=== PATIENT | female | born 1975 | race Caucasian/White ===

== ENCOUNTER 2020-08-23 13:18 | Outpatient (RCR) | payer MEDICARE, MEDICAID, SELFPAY | END 2020-10-27 08:07 | disposition home or self-care (01) | LOC: HO.WCC 13:18 | PROVIDERS: PCP Family Medicine; Visit Provider Physician Assistant | DX: Z09 Encounter for follow-up examination after completed treatment for conditions other than malignant neoplasm (principal); E11.51 Type 2 diabetes mellitus with diabetic peripheral angiopathy without gangrene; R60.9 Edema, unspecified; M32.9 Systemic lupus erythematosus, unspecified; I25.10 Atherosclerotic heart disease of native coronary artery without angina pectoris; I25.2 Old myocardial infarction; I10 Essential (primary) hypertension; F17.210 Nicotine dependence, cigarettes, uncomplicated; M21.961 Unspecified acquired deformity of right lower leg; Z79.2 Long term (current) use of antibiotics | CPT/HCPCS: 11042; 87071; 87077; 87147; 87186; 87205; 99213 ==

== ENCOUNTER 2020-08-31 00:34 | Inpatient (IN) | payer MEDICARE, MEDICAID, SELFPAY ==
[2020-08-31 00:51] VITALS: BP 115/50; PULSE 83; RESP 16; TEMP 36.4; O2SAT 97; BMI 24.9
[2020-08-31 03:40] LABS: Hematocrit 30.4 % (37-47); Hemoglobin 8.8 g/dl (12.0-16.0); Mean Corpuscular HGB Conc 28.9 g/dl (31.0-35.0); Mean Corpuscular Hemoglobin 22.2 pg (27.0-33.0); Mean Corpuscular Volume 76.8 fL (80-98); Mean Platelet Volume 9.3 fL (9.4-12.3); Platelet Count 227 X10*3/uL (160-400); Red Blood Count 3.96 X10*6/uL (4.20-5.50); Red Cell Distribution Width 15.9 % (11.0-16.0)
--- NOTE | 2020-08-31 04:15 | ED_ITS ---
HPI - Wound/Laceration General Chief Complaint: Wound/Laceration Stated Complaint: Leg and feet pain/swelling Time Seen by Provider: 08/31/20 04:04 Source: patient Mode of arrival: ambulatory History of Present Illness HPI narrative: Patient comes to emergency room complaining of worsening cellulitis in her left lower extremity. Patient states in June she had an episode of cellulitis, she was discharged from the hospital, then subsequently she had development of ulcers in her leg. Patient has been followed up by the wound clinic. She has completed 3 courses of oral antibiotics, the last dose was approximately 3-4 days ago. Patient was seen on August 23 at the wound clinic, patient states that she has not changed her dressings since then. Patient states that the redness and pain keeps getting worse. Related Data Home Medications Medication Instructions Recorded Confirmed bupropion HCl 100 mg tablet 100 mg PO BID 08/15/20 08/20/20 oyxwcyh-klindosscx-SYO-caffeine 30 1 cap PO Q6H PRN 08/15/20 08/20/20 mg-50 mg-325 mg-40 mg capsule fluticasone propionate 110 1 puff INHALATION BID 08/15/20 08/20/20 mcg/actuation HFA aerosol inhaler hydroxychloroquine 200 mg tablet 200 mg PO DAILY 08/15/20 08/20/20 loratadine 10 mg tablet 10 mg PO DAILY 08/15/20 08/20/20 lorazepam 1 mg tablet 1 mg PO DAILY PRN 08/15/20 08/20/20 methotrexate 2.5 mg/mL oral PO 08/15/20 08/20/20 solution oxycodone 5 mg capsule 5 mg PO BID PRN 08/15/20 08/20/20 pravastatin 40 mg tablet 40 mg PO BEDTIME 08/15/20 08/20/20 prednisone 20 mg tablet 20 mg PO DAILY 08/15/20 08/20/20 warfarin 1 mg tablet 1 mg PO Q OTHER DAY 08/15/20 08/20/20 fluoxetine 40 mg capsule 40 mg PO DAILY 08/20/20 08/20/20 levothyroxine 150 mcg tablet 150 mcg PO DAILY 08/20/20 08/20/20 Allergies Allergy/AdvReac Type Severity Reaction Status Date / Time clarithromycin Allergy Intermediate FACIAL Verified 08/15/20 16:58 [CLARITHROMYCIN] SWELLING/REDNESS, facial rash, facial rash, facial rash, facial rash Review of Systems Review of Systems: Constitutional : No Weight loss, No Fever, No Chills, No Night Sweats, No Fatigue, No Malaise ENT/Mouth : No Hearing loss, No Ear Pain, No Nasal Congestion, No Sinus Pain, No Hoarseness, No sore throat, No Rhinorrhea, No Swallowing Difficulty Eyes: No Eye Pain, No Swelling, No Redness, No Foreign Body, No Discharge, No Vision Changes Cardiovascular : No Chest Pain, No SOB, No Dyspnea on Exertion, No Orthopnea, No Edema, No Palpitations Respiratory : No Cough, No Sputum, No Wheezing, No Smoke Exposure, No Dyspnea Gastrointestinal : No Nausea, No Vomiting, No Diarrhea, No Constipation, No abdominal Pain, No Hematochezia, No Melena Genitourinary : no irregular bleeding, No Dysuria, No Urinary Frequency, No Hematuria, No Urinary Incontinence, No Urgency, No Flank Pain, No Urinary Flow Changes, No Hesitancy Musculoskeletal : No joint pain, No Myalgias, No Joint Swelling Skin : cellulitis, skin ulcers in lower extremity Neuro : No Weakness, No Numbness, No Paresthesias, No Loss of Consciousness, No Dizziness, No Headache Psych : No Anxiety/Panic, No Depression, No SI/HI/AH/VH, No Social Issues, Heme/Lymph: No Bruising, No Bleeding,No Lymphadenopathy Endocrine : No Polyuria, No Polydipsia, No Temperature Intolerance [facility] Past Medical History Medical History Arthritis CVA (cerebral vascular accident) Fibromyalgia Hypothyroid Lupus Proteinuria Surgical History History of bunionectomy History of cholecystectomy History of excision of mass History of partial hysterectomy Family History Family History (Updated 08/15/20 @ 17:08 by Ophelia Conklin CMA) Father No problems noted. Mother Lung cancer Social History Social History Advance Directives: No Advance Directives Information Provided: No Physical Exam Vital Signs: Vital Signs: Vital Signs Temp Pulse Resp BP Pulse Ox 08/31/20 06:52 76 16 103/50 L 94 08/31/20 00:51 97.5 F 83 16 115/50 L 97 Body Mass Index 24.9 Appearance: Alert. Oriented X3. No acute distress. Eyes: Pupils equal, round and reactive to light. ENT: Pharynx normal. Neck: Normal inspection. Neck supple. No lymph nodes noted. No crepitus CVS: Normal heart rate and rhythm. Pulses normal. Normal S1 and S2 Respiratory: No respiratory distress. Breath sounds normal. No Wheezing. No rales Abdomen: Soft and nontender. No rigidity. No distention. good BS x4 Skin: erythematous, Warm to touch, tender leg with multiple ulcers in the tibia and lateral aspects. Extremities: No lower extremity edema. No lower extremity edema. No Lacerations. No Rash Neuro: Oriented X 3. No motor deficit. No sensory deficit. Moving all extermities. No slurred speech. MDM - Wound/Laceration MDM Narrative Medical decision making narrative: patient failed outpatient treatment after 3 rounds of antibiotic. Although her labs stable, patient's leg keeps worsening. I discussed the above-mentioned with the hospitalist, patient being admitted. Medical Records Attestation: I reviewed the patient's medical records. Lab Data Attestation: I reviewed the patient's lab results. Result diagrams: 08/31/20 03:33 08/31/20 03:34 Labs: Lab Results 08/31/20 08/31/20 08/31/20 Range/Units 03:33 03:34 04:51 WBC 6.0 (4.8-10.8) X10*3/uL RBC 3.96 L (4.20-5.50) X10*6/uL Hgb 8.8 L (12.0-16.0) g/dl Hct 30.4 L (37-47) % MCV 76.8 L (80-98) fL MCH 22.2 L (27.0-33.0) pg MCHC 28.9 L (31.0-35.0) g/dl RDW 15.9 (11.0-16.0) % Plt Count 227 (160-400) X10*3/uL MPV 9.3 L (9.4-12.3) fL Immature Gran % (Auto) Cancelled Neut % (Auto) Cancelled Lymph % (Auto) Cancelled [place] % (Auto) Cancelled Eos % (Auto) Cancelled Baso % (Auto) Cancelled Lymph # (Auto) Cancelled [place] # (Auto) Cancelled Eos # (Auto) Cancelled Baso # (Auto) Cancelled Abs Immat Gran (auto) Cancelled Absolute Neuts (auto) Cancelled Absolute Nucleated RBC 0.000 (0.0-0.012) X10*3/uL Nucleated RBC % (auto) 0.0 (0.0-0.2) /100WBC Neutrophils % (Manual) 58 (45-73) % Band Neutrophils % 1 L (3-5) % Lymphocytes % (Manual) 33 (20-40) % Monocytes % (Manual) 4 (2-11) % Eosinophils % (Manual) 2 (0-4) % Basophils % (Manual) 2 H (0-1) % Abs Neuts (Manual) 3.5 (2.2-7.9) X10*3/uL Lymphocytes # (Manual) 2.0 (0.6-4.8) X10*3/uL Monocytes # (Manual) 0.2 (0.0-1.2) X10*3/uL Eosinophils # (Manual) 0.1 (0.0-0.8) X10*3/UL Basophils # (Manual) 0.1 (0.0-0.3) X10*3/uL Toxic Vacuolation PRESENT Dohle Bodies PRESENT Platelet Estimate NORMAL (NORMAL) Large Platelets PRESENT Plt Morphology Comment NORMAL RBC Morphology NOTED Microcytosis 1+ [place] Cells 1+ Sodium 138 (135-145) mmol/L Potassium 4.4 (3.3-5.1) mmol/l Chloride 100 (96-108) mmol/L Carbon Dioxide 32 H (22-29) mmol/L Anion Gap 10 L (12-20) BUN 12 (9-16) mg/dL Creatinine 0.92 (0.5-1.4) mg/dL Estim Creat Clear Calc 65.5 Estimated GFR > 60 Random Glucose 82 (60-115) mg/dL Lactic Acid 0.9 (0.5-2.0) mmol/L Calcium 8.6 (8.4-10.2) mg/dL Total Bilirubin 0.4 (0.0-1.0) mg/dL AST 18 (5-31) U/L ALT 10 (0-31) U/L Alkaline Phosphatase 160 H (39-117) U/L Total Protein 6.0 L (6.5-8.0) g/dL Albumin 3.0 L (3.5-5.0) g/dL Lipase 20 (8-78) U/L Urine Color Urine Appearance Urine pH (5.0-8.0) Ur Specific [place] (1.005-1.025) Urine Protein (NEG-TRACE) MG/DL Urine Glucose (UA) (NEG) MG/DL Urine Ketones (NEG) MG/DL Urine Blood (NEG) Urine Nitrite (NEG) Ur Leukocyte Esterase (NEG) Urine Test (NEGATIVE) 08/31/20 Range/Units 04:51 WBC (4.8-10.8) X10*3/uL RBC (4.20-5.50) X10*6/uL Hgb (12.0-16.0) g/dl Hct (37-47) % MCV (80-98) fL MCH (27.0-33.0) pg MCHC (31.0-35.0) g/dl RDW (11.0-16.0) % Plt Count (160-400) X10*3/uL MPV (9.4-12.3) fL Immature Gran % (Auto) Neut % (Auto) Lymph % (Auto) [place] % (Auto) Eos % (Auto) Baso % (Auto) Lymph # (Auto) [place] # (Auto) Eos # (Auto) Baso # (Auto) Abs Immat Gran (auto) Absolute Neuts (auto) Absolute Nucleated RBC (0.0-0.012) X10*3/uL Nucleated RBC % (auto) (0.0-0.2) /100WBC Neutrophils % (Manual) (45-73) % Band Neutrophils % (3-5) % Lymphocytes % (Manual) (20-40) % Monocytes % (Manual) (2-11) % Eosinophils % (Manual) (0-4) % Basophils % (Manual) (0-1) % Abs Neuts (Manual) (2.2-7.9) X10*3/uL Lymphocytes # (Manual) (0.6-4.8) X10*3/uL Monocytes # (Manual) (0.0-1.2) X10*3/uL Eosinophils # (Manual) (0.0-0.8) X10*3/UL Basophils # (Manual) (0.0-0.3) X10*3/uL Toxic Vacuolation Dohle Bodies Platelet Estimate (NORMAL) Large Platelets Plt Morphology Comment RBC Morphology Microcytosis [place] Cells Sodium (135-145) mmol/L Potassium (3.3-5.1) mmol/l Chloride (96-108) mmol/L Carbon Dioxide (22-29) mmol/L Anion Gap (12-20) BUN (9-16) mg/dL Creatinine (0.5-1.4) mg/dL Estim Creat Clear Calc Estimated GFR Random Glucose (60-115) mg/dL Lactic Acid (0.5-2.0) mmol/L Calcium (8.4-10.2) mg/dL Total Bilirubin (0.0-1.0) mg/dL AST (5-31) U/L ALT (0-31) U/L Alkaline Phosphatase (39-117) U/L Total Protein (6.5-8.0) g/dL Albumin (3.5-5.0) g/dL Lipase (8-78) U/L Urine Color STRAW Urine Appearance CLEAR Urine pH 6.0 (5.0-8.0) Ur Specific [place] <= 1.005 (1.005-1.025) Urine Protein NEG (NEG-TRACE) MG/DL Urine Glucose (UA) NEG (NEG) MG/DL Urine Ketones NEG (NEG) MG/DL Urine Blood NEG (NEG) Urine Nitrite NEG (NEG) Ur Leukocyte Esterase NEG (NEG) Urine Test NEGATIVE (NEGATIVE) Discharge Plan Discharge Clinical Impression: Cellulitis Patient Disposition: Admitted As Inpatient Prescriptions: No Action levothyroxine 150 mcg tablet 150 mcg PO DAILY RF: 0 fluoxetine [Prozac] 40 mg capsule 40 mg PO DAILY RF: 0 lorazepam 1 mg tablet 1 mg PO DAILY PRNRF: 0 [id number]-[id number]-TQM-caff [Butalbital Compound W/Codeine] [id number] mg capsule 1 cap PO Q6H PRNRF: 0 warfarin 1 mg tablet 1 mg PO Q OTHER DAY RF: 0 fluticasone propionate 110 mcg/actuation HFA aerosol inhaler 1 puff inhalation BID RF: 0 oxycodone 5 mg capsule 5 mg PO BID PRNRF: 0 pravastatin 40 mg tablet 40 mg PO BEDTIME RF: 0 prednisone 20 mg tablet 20 mg PO DAILY RF: 0 hydroxychloroquine 200 mg tablet 200 mg PO DAILY RF: 0 methotrexate 2.5 mg/mL solution PO RF: 0 bupropion HCl 100 mg tablet 100 mg PO BID RF: 0 loratadine [Allergy Relief (loratadine)] 10 mg tablet 10 mg PO DAILY RF: 0
[2020-08-31 04:27] LABS: Band Neutrophils Percent 1 % (3-5); Basophils Abs Manual 0.1 X10*3/uL (0.0-0.3); Basophils Percent Manual 2 % (0-1); Eosinophils Absolute Manual 0.1 X10*3/UL (0.0-0.8); Eosinophils Percent Manual 2 % (0-4); Lymphocytes Percent Manual 33 % (20-40); Monocytes Absolute Manual 0.2 X10*3/uL (0.0-1.2); Monocytes Percent Manual 4 % (2-11); Neutrophils Absolute Manual 3.5 X10*3/uL (2.2-7.9); Neutrophils Percent Manual 58 % (45-73)
[2020-08-31 04:28] LABS: Alanine Aminotransferase 10 U/L (0-31); Alkaline Phosphatase 160 U/L (39-117); Anion Gap 10 (12-20); Aspartate Amino Transferase 18 U/L (5-31); Bilirubin Total 0.4 mg/dL (0.0-1.0); Blood Urea Nitrogen 12 mg/dL (9-16); Carbon Dioxide 32 mmol/L (22-29); Chloride 100 mmol/L (96-108); Creatinine Clr Calc Pharmacy 65.5; Estimated Glomerular Filt Rate > 60; Glucose Random 82 mg/dL (60-115); Lipase 20 U/L (8-78); Potassium 4.4 mmol/l (3.3-5.1); Sodium 138 mmol/L (135-145)
[2020-08-31 04:31] LABS: Dohle Bodies PRESENT
[2020-08-31 04:33] LABS: Microcytosis 1+
[2020-08-31 04:34] LABS: Large Platelet PRESENT; Platelet Estimate NORMAL (NORMAL)
[2020-08-31 04:35] LABS: Burr Cells 1+; Platelet Morphology Comment NORMAL; Toxic Vacuolation PRESENT
[2020-08-31 05:02] LABS: Appearance Urine CLEAR; Color Urine STRAW; Glucose Urine UA NEG (NEG); Leukocyte Esterase Urine NEG (NEG); Nitrite Urine NEG (NEG); Specific Gravity - Urine <= 1.005 (1.005-1.025); Urine Blood NEG (NEG); Urine Ketones NEG (NEG); Urine Protein NEG (NEG-TRACE)
[2020-08-31 05:03] LABS: Calcium 8.6 mg/dL (8.4-10.2)
[2020-08-31 05:05] LABS: UPreg QC Valid YES; Urine Pregnancy NEGATIVE (NEGATIVE)
--- NOTE | 2020-08-31 05:06 | PC.NURSE ---
RIGHT LOWER LEG EDEMA AND REDNESS. ORA WRAP AND SATURATED 4X4'S REMOVED. 2 AREAS OF OPEN SKIN WITH DRAINAGE ON MEDIAL LOWER LEFT LEG. LACTIC AND CULTURES DRAWN.
[2020-08-31 05:13] LABS: RBC Morphology NOTED
[2020-08-31 05:15] LABS: Lactic Acid 0.9 mmol/L (0.5-2.0)
--- NOTE | 2020-08-31 06:34 | PC.NURSE ---
pt has been sleeping for the past few hours. left lower leg wrapped with krystin over telfa pads.
[2020-08-31 06:52] VITALS: BP 103/50; PULSE 76; RESP 16; O2SAT 94
[2020-08-31] MEDS: Piperacillin Sodium/Tazobactam 3.375 GM in 0.9 % Sodium Chloride 50 ML IV ×3 (08:15→19:37)
[2020-08-31 08:30] LABS: Iron 26 mcg/dL (30-160); Percent Iron Saturation 14 % (15-50); Total Iron Binding Capacity 180 mcg/dL (228-428); Unsaturated Iron Binding 154 ug/dL
[2020-08-31 08:50] LABS: Ferritin 170 ng/mL (10-250)
[2020-08-31] MEDS: vancomycin HCL 750 MG in 0.9 % Sodium Chloride 250 ML 265 MG IV ×2 (09:05→22:31)
--- NOTE | 2020-08-31 09:06 | P.HPIM_ITS ---
History of Present Illness Date of Service: 08/31/20 Chief Complaint: left leg infection/ulcers Ms Rea is a 45 year-old woman with SLE, on chronic prednisone and hydroxychloroquine, who has had recurrent left leg cellulitis for the past 2 months. She has taken 3 separate courses of oral doxycycline without res olution; the last course was completed 4 days ago. She has been seen by the [facility] and was advised to present to the ED for IV antibiotics should the cellulitis recur or persist. She presents with worsening redness, swelling, and pain with multiple ulcers on the left tsai. She denies trauma to the limb. She denies fever or chills. No nausea or vomiting. No lightheadedness. Review of Systems Review of Systems: Yes all other systems are reviewed and are negative Constitutional: Constitutional: Denies chills and Denies fever(s) Cardiovascular: Cardiovascular: Denies chest pain and Denies dyspnea Respiratory: Respiratory: Denies cough and Denies dyspnea Gastrointestinal: Gastrointestinal: Denies abdominal pain, Denies nausea and Denies vomiting Musculoskeletal: Musculoskeletal: Reports arthralgias and Reports joint swelling Integumentary/Breasts: Skin/Breast: Reports swelling, Reports erythema, Reports skin swelling and Reports skin ulcer PMFSH Medical History Arthritis CVA (cerebral vascular accident) Fibromyalgia Hypothyroid Lupus Proteinuria Functional capacity: uses cane/walker Family History Father No problems noted. Mother Lung cancer Surgical History History of bunionectomy History of cholecystectomy History of excision of mass History of partial hysterectomy Social History Household Members: Children Housing: House Do you presently have visiting nurse or other home services: Yes ([facility]) Alcohol intake: never Smoking Status: Current every day smoker Tobacco Type: Cigarette Packs Per Day: 1 Cigarettes Per Day: 20.0 Years Smoked: 29 Smoked in Last 30 Days: Yes Patient Interested in Nicotine Replacement: Yes Patient Given Instructions on How to Stop Smoking: Yes Date Education Initiated: 08/31/20 Second Hand Smoke Exposure: No Use of substances other than those prescribed or required for medical reasons: No Currently Displaying Signs/Symptoms of Drug Intoxication Withdrawal: No Any prior treatment program specific to substance use: No Have you been hit, kicked, punched, or otherwise hurt by someone within the past year? If so, by whom?: No Do you feel safe in your current relationship?: No Current Relationship Is there a partner from a previous relationship who is making you feel unsafe now?: No Are you made to feel afraid or neglected: No Advance Directives: No Advance Directives Information Provided: No Advance Directives on File: No Do you have thoughts of harming others: None Do you have a plan to hurt others: No Plan Recently lost weight without trying: Yes Current occupational status: disabled Meds Allergies Allergy/AdvReac Type Severity Reaction Status Date / Time clarithromycin Allergy Intermediate FACIAL Verified 08/15/20 16:58 [CLARITHROMYCIN] SWELLING/REDNESS, facial rash, facial rash, facial rash, facial rash Home Medications Medication Instructions Recorded Confirmed Type fluticasone propionate 110 1 puff INHALATION BID 08/15/20 08/31/20 History mcg/actuation HFA aerosol inhaler hydroxychloroquine 200 mg tablet 200 mg PO BID 08/15/20 08/31/20 History lorazepam 1 mg tablet 1 mg PO BID PRN 08/15/20 08/31/20 History pravastatin 40 mg tablet 40 mg PO BEDTIME 08/15/20 08/31/20 History fluoxetine 40 mg capsule 40 mg PO DAILY 08/20/20 08/31/20 History levothyroxine 150 mcg tablet 150 mcg PO DAILY 08/20/20 08/31/20 History albuterol sulfate 2 puff INHALATION Q4H PRN 08/31/20 08/31/20 History albuterol sulfate 2.5 mg INHALATION Q6H PRN 08/31/20 08/31/20 History apixaban [Eliquis] 5 mg PO BID 08/31/20 08/31/20 History bupropion HCl 100 mg PO BID 08/31/20 08/31/20 History aufekpsowx-brmubvhnivthx-sthm 2 tab PO DAILY PRN 08/31/20 08/31/20 History ferrous sulfate 325 mg PO DAILY 08/31/20 08/31/20 History folic acid 1 mg PO DAILY 08/31/20 08/31/20 History nortriptyline 50 mg PO BEDTIME 08/31/20 08/31/20 History oxycodone 15 mg PO 5XD 08/31/20 08/31/20 History prednisone 5 mg PO DAILY 08/31/20 08/31/20 History Physical Exam Vital Signs and Narrative: Vital Signs: Last Vital Signs Temp 97.5 F 08/31/20 00:51 Pulse 76 08/31/20 06:52 Resp 16 08/31/20 06:52 BP 103/50 L 08/31/20 06:52 Pulse Ox 94 08/31/20 06:52 Body Mass Index 24.9 Const: General: No acute distress Orientation/consciousness: patient oriented x3 Eyes: Sclerae: sclerae normal Neck: Yes normal visual inspection and Yes supple Chest: Chest palpation & inspection: normal inspection of the chest Resp: Effort & Inspection: normal respiratory effort, able to speak in complete sentences and symmetric chest movement Auscultation: clear to auscultation bilaterally Cardio: Rate: regular rate Rhythm: regular rhythm Heart sounds: no murmurs GI: Inspection: Yes normal to inspection Palpation (GI): Soft to palpation and nontender Skin: Other: erythema and swelling of the lower left extremity from the tibial plateau to above the ankle. there are two non-bleeding ulcers without purulence Neuro: General: patient oriented x3 Results Labs Labs: Laboratory Tests 08/31/20 08/31/20 08/31/20 03:33 03:34 03:34 WBC 6.0 RBC 3.96 L Hgb 8.8 L Hct 30.4 L MCV 76.8 L MCH 22.2 L MCHC 28.9 L RDW 15.9 Plt Count 227 MPV 9.3 L Immature Gran % (Auto) Cancelled Neut % (Auto) Cancelled Lymph % (Auto) Cancelled [place] % (Auto) Cancelled Eos % (Auto) Cancelled Baso % (Auto) Cancelled Lymph # (Auto) Cancelled [place] # (Auto) Cancelled Eos # (Auto) Cancelled Baso # (Auto) Cancelled Abs Immat Gran (auto) Cancelled Absolute Neuts (auto) Cancelled Absolute Nucleated RBC 0.000 Nucleated RBC % (auto) 0.0 Neutrophils % (Manual) 58 Band Neutrophils % 1 L Lymphocytes % (Manual) 33 Monocytes % (Manual) 4 Eosinophils % (Manual) 2 Basophils % (Manual) 2 H Abs Neuts (Manual) 3.5 Lymphocytes # (Manual) 2.0 Monocytes # (Manual) 0.2 Eosinophils # (Manual) 0.1 Basophils # (Manual) 0.1 Toxic Vacuolation PRESENT Dohle Bodies PRESENT Platelet Estimate NORMAL Large Platelets PRESENT Plt Morphology Comment NORMAL RBC Morphology NOTED Microcytosis 1+ [place] Cells 1+ Sodium 138 Potassium 4.4 Chloride 100 Carbon Dioxide 32 H Anion Gap 10 L BUN 12 Creatinine 0.92 Estim Creat Clear Calc 65.5 Estimated GFR > 60 Random Glucose 82 Lactic Acid Calcium 8.6 Iron 26 L TIBC 180 L % Saturation 14 L Unsat Iron Binding 154 Ferritin 170 Total Bilirubin 0.4 AST 18 ALT 10 Alkaline Phosphatase 160 H C-Reactive Protein 2.70 H Total Protein 6.0 L Albumin 3.0 L Lipase 20 Urine Color Urine Appearance Urine pH Ur Specific [place] Urine Protein Urine Glucose (UA) Urine Ketones Urine Blood Urine Nitrite Ur Leukocyte Esterase Urine Test 08/31/20 08/31/20 04:51 04:51 WBC RBC Hgb Hct MCV MCH MCHC RDW Plt Count MPV Immature Gran % (Auto) Neut % (Auto) Lymph % (Auto) [place] % (Auto) Eos % (Auto) Baso % (Auto) Lymph # (Auto) [place] # (Auto) Eos # (Auto) Baso # (Auto) Abs Immat Gran (auto) Absolute Neuts (auto) Absolute Nucleated RBC Nucleated RBC % (auto) Neutrophils % (Manual) Band Neutrophils % Lymphocytes % (Manual) Monocytes % (Manual) Eosinophils % (Manual) Basophils % (Manual) Abs Neuts (Manual) Lymphocytes # (Manual) Monocytes # (Manual) Eosinophils # (Manual) Basophils # (Manual) Toxic Vacuolation Dohle Bodies Platelet Estimate Large Platelets Plt Morphology Comment RBC Morphology Microcytosis [place] Cells Sodium Potassium Chloride Carbon Dioxide Anion Gap BUN Creatinine Estim Creat Clear Calc Estimated GFR Random Glucose Lactic Acid 0.9 Calcium Iron TIBC % Saturation Unsat Iron Binding Ferritin Total Bilirubin AST ALT Alkaline Phosphatase C-Reactive Protein Total Protein Albumin Lipase Urine Color STRAW Urine Appearance CLEAR Urine pH 6.0 Ur Specific [place] <= 1.005 Urine Protein NEG Urine Glucose (UA) NEG Urine Ketones NEG Urine Blood NEG Urine Nitrite NEG Ur Leukocyte Esterase NEG Urine Test NEGATIVE Assessment and Plan (1) Cellulitis: Qualifiers: Laterality: left Site of cellulitis: extremity Site of cellulitis of extremity: lower extremity Qualified Code(s): L03.116 - Cellulitis of left lower limb Status: Acute This is a 45 year-old woman with SLE on chronic prednisone and hydroxychloroquine who presents with recurrent, non-resolving, non-purulent cellulitis of the left tsai with non-healing ulcers. She has not healed with 3 separate courses of outpatient doxycycline. # non-resolving cellulitis # non-healing ulcers - not septic - at risk of MDR pathogens due to immunosuppression - admit to M/S - follow BCx, CRP - IV pip/matt + vancomycin - ID consultation - Wound Care consultation # SLE - continue prednisone + hydroxychloroquine # hx CVA ?APLAS - recently changed from warfarin to apixaban; continue # iron deficiency anemia, chronic - continue FeSO4 # hypothyroidism - continue LT4 # depression/anxiety - continue bupropion + fluoxetine + lorazepam # VTE ppx - apixaban as above # code - FULL
[2020-08-31 09:09] VITALS: BP 102/54; PULSE 61; O2SAT 93
--- NOTE | 2020-08-31 10:12 | PC.NURSE ---
PT CAOX3, NO SIGNIFICANT COMPLAINTS, ABX X 2 INFUSED. AWAITING ADMISSION ORDERS AND ROOM ASSIGNMENT
[2020-08-31 11:13] VITALS: BP 93/53; PULSE 76; RESP 16; TEMP 37; O2SAT 94
[2020-08-31] MEDS: predniSONE 5 MG TABLET PO (11:30)
[2020-08-31] MEDS: FLUoxetine HCl 20 MG CAPSULE 40 MG PO (11:30)
[2020-08-31] MEDS: oxyCODONE HCl Immed Release 15 MG TABLET PO ×4 (11:31→22:43)
[2020-08-31] MEDS: Apixaban 5 MG TABLET PO (11:31)
[2020-08-31] MEDS: Folic Acid 1 MG TABLET PO (11:31)
[2020-08-31] MEDS: Levothyroxine Sodium 150 MCG TABLET PO (11:31)
[2020-08-31] MEDS: Ferrous Sulfate 324 MG TABLET.DR PO (11:31)
[2020-08-31] MEDS: buPROPion HCL 100 MG TABLET PO ×2 (11:31→21:31)
[2020-08-31] MEDS: Hydroxychloroquine Sulfate 200 MG TABLET PO ×2 (11:32→21:31)
--- NOTE | 2020-08-31 14:20 | P.CONGS_ITS ---
History of Present Illness Consult details Consult date: 08/31/20 Requesting physician: Ashley Mark Narrative: This is a 45-year-old female with past history of systemic lupus erythematosus, anti phospholipid syndrome, and rheumatoid arthritis who reports that she developed ulceration of the left lower extremity 2 or 3 months ago. [facility] She says that she was advised to come to the emergency room for further evaluation because of concern regarding the appearance of the wounds. She reports ongoing pain associated w ith the wounds. She does not think that there has been a lot of progress toward healing. Skin biopsy for evaluation for possible vasculitis or fungal infection has been requested. Review of Systems Constitutional: Constitutional: Denies chills, Denies fever(s) and Reports weakness (Mild, left side) Cardiovascular: Cardiovascular: Denies chest pain and Denies dyspnea Respiratory: Respiratory: Denies cough and Denies dyspnea Neurologic: Reports weakness (Mild, left side) PMFSH Past Medical History Medical History (Updated 08/31/20 @ 14:34 by Mikayla Mccain MD) Arthritis CVA (cerebral vascular accident) Fibromyalgia Hypothyroid Lupus Proteinuria Functional capacity: uses cane/walker Family History Family History Father No problems noted. Mother Lung cancer Surgical History Surgical History (Updated 08/31/20 @ 14:40 by Mikayla Mccain MD) History of breast lump/mass excision History of bunionectomy History of cholecystectomy History of excision of mass History of partial hysterectomy Social History Social History Household Members: Children Housing: House Do you presently have visiting nurse or other home services: Yes ([employer]) Alcohol intake: never Smoking Status: Current every day smoker Tobacco Type: Cigarette Packs Per Day: 1 Cigarettes Per Day: 20.0 Years Smoked: 29 Smoked in Last 30 Days: Yes Patient Interested in Nicotine Replacement: Yes Patient Given Instructions on How to Stop Smoking: Yes Date Education Initiated: 08/31/20 Second Hand Smoke Exposure: No Use of substances other than those prescribed or required for medical reasons: No Currently Displaying Signs/Symptoms of Drug Intoxication Withdrawal: No Any prior treatment program specific to substance use: No Have you been hit, kicked, punched, or otherwise hurt by someone within the past year? If so, by whom?: No Do you feel safe in your current relationship?: No Current Relationship Is there a partner from a previous relationship who is making you feel unsafe now?: No Are you made to feel afraid or neglected: No Advance Directives: No Advance Directives Information Provided: No Advance Directives on File: No Do you have thoughts of harming others: None Do you have a plan to hurt others: No Plan Recently lost weight without trying: Yes Current occupational status: disabled Meds Allergies Allergy/AdvReac Type Severity Reaction Status Date / Time clarithromycin Allergy Intermediate FACIAL Verified 08/15/20 16:58 [CLARITHROMYCIN] SWELLING/REDNESS, facial rash, facial rash, facial rash, facial rash Home Medications Medication Instructions Recorded Confirmed Type fluticasone propionate 110 1 puff INHALATION BID 08/15/20 08/31/20 History mcg/actuation HFA aerosol inhaler hydroxychloroquine 200 mg tablet 200 mg PO BID 08/15/20 08/31/20 History lorazepam 1 mg tablet 1 mg PO BID PRN 08/15/20 08/31/20 History pravastatin 40 mg tablet 40 mg PO BEDTIME 08/15/20 08/31/20 History fluoxetine 40 mg capsule 40 mg PO DAILY 08/20/20 08/31/20 History levothyroxine 150 mcg tablet 150 mcg PO DAILY 08/20/20 08/31/20 History albuterol sulfate 2 puff INHALATION Q4H PRN 08/31/20 08/31/20 History albuterol sulfate 2.5 mg INHALATION Q6H PRN 08/31/20 08/31/20 History apixaban [Eliquis] 5 mg PO BID 08/31/20 08/31/20 History bupropion HCl 100 mg PO BID 08/31/20 08/31/20 History ilpvwxwsfw-ipdqdojjnkihj-cwbe 2 tab PO DAILY PRN 08/31/20 08/31/20 History ferrous sulfate 325 mg PO DAILY 08/31/20 08/31/20 History folic acid 1 mg PO DAILY 08/31/20 08/31/20 History nortriptyline 50 mg PO BEDTIME 08/31/20 08/31/20 History oxycodone 15 mg PO 5XD 08/31/20 08/31/20 History prednisone 5 mg PO DAILY 08/31/20 08/31/20 History Physical Exam Vital Signs: Vital Signs: Vital Signs Temp Pulse Resp BP Pulse Ox 08/31/20 11:13 98.6 F 76 16 93/53 L 94 08/31/20 09:09 61 102/54 L 93 08/31/20 06:52 76 16 103/50 L 94 08/31/20 00:51 97.5 F 83 16 115/50 L 97 Body Mass Index 24.9 Const: General: cooperative and no acute distress HENMT: Head: Yes normal to inspection Resp: Effort & Inspection: normal respiratory effort Auscultation: clear to auscultation bilaterally Cardio: Rate: regular rate Rhythm: regular rhythm Skin: Other: grayish cast, warm and dry Extrem: Other: punched-out appearing wounds left lower leg medial aspect, wound beds are boggy and covered with patchy fibrinous appearing exudate, no significant surrounding erythema. Dorsalis pedis pulse palpable Results Labs Result diagrams: 08/31/20 03:33 08/31/20 03:34 Labs: Abnormal lab results 08/31/20 08/31/20 08/31/20 Range/Units 03:33 03:34 03:34 RBC 3.96 L (4.20-5.50) X10*6/uL Hgb 8.8 L (12.0-16.0) g/dl Hct 30.4 L (37-47) % MCV 76.8 L (80-98) fL MCH 22.2 L (27.0-33.0) pg MCHC 28.9 L (31.0-35.0) g/dl MPV 9.3 L (9.4-12.3) fL Band Neutrophils % 1 L (3-5) % Basophils % (Manual) 2 H (0-1) % Carbon Dioxide 32 H (22-29) mmol/L Anion Gap 10 L (12-20) Iron 26 L (30-160) mcg/dL TIBC 180 L (228-428) mcg/dL % Saturation 14 L (15-50) % Alkaline Phosphatase 160 H (39-117) U/L C-Reactive Protein 2.70 H (< or = 0.50) mg/dL Total Protein 6.0 L (6.5-8.0) g/dL Albumin 3.0 L (3.5-5.0) g/dL Short CBC 08/31/20 Range/Units 03:33 WBC 6.0 (4.8-10.8) X10*3/uL Hgb 8.8 L (12.0-16.0) g/dl Hct 30.4 L (37-47) % Plt Count 227 (160-400) X10*3/uL BMP 08/31/20 03:34 Sodium 138 Potassium 4.4 Chloride 100 Carbon Dioxide 32 H BUN 12 Creatinine 0.92 Calcium 8.6 Liver Function 08/31/20 Range/Units 03:34 Total Bilirubin 0.4 (0.0-1.0) mg/dL AST 18 (5-31) U/L ALT 10 (0-31) U/L Alkaline Phosphatase 160 H (39-117) U/L Albumin 3.0 L (3.5-5.0) g/dL Urine 08/31/20 Range/Units 04:51 Urine Color STRAW Urine Appearance CLEAR Urine pH 6.0 (5.0-8.0) Ur Specific [place] <= 1.005 (1.005-1.025) Urine Protein NEG (NEG-TRACE) MG/DL Urine Glucose (UA) NEG (NEG) MG/DL Urine Test NEGATIVE (NEGATIVE) All other labs normal. Assessment and Plan (1) Ulcer of lower extremity: Problem details: she has open wounds of the medial aspect of the left lower leg, etiology unclear, with delayed healing. Skin biopsy has been requested for further evaluation. I discussed this with her and reviewed risks including but not limited to infection, bleeding, and delayed healing. She is on Eliquis. We can proceed without discontinuing the Eliquis if needed, but it would be preferable to hold it for a day and resume once the biopsy has been done. I discussed this with her and will review with Dr. Mark. Status: Acute Skin biopsy ulcer left lower extremity scheduled for tomorrow. Will hold Eliquis until the biopsy is done.
[2020-08-31] MEDS: Nicotine 14 MG PATCH.TD24 TRANSDERMA (15:09)
[2020-08-31 15:12] VITALS: BP 108/53; PULSE 75; RESP 18; TEMP 36.2; O2SAT 92
[2020-08-31] MEDS: 0.9 % Sodium Chloride Flush 3 ML SYRINGE IVFLUSH (15:42)
[2020-08-31] MEDS: Collagenase Clostridium Hist. 30 GM TUBE 1 APPL TOPICAL (19:38)
[2020-08-31] MEDS: Albuterol Sulfate (0.083%) 2.5 MG/3 ML VIAL.NEB INHALE (19:41)
--- NOTE | 2020-08-31 20:00 | PC.NURSE ---
Patient was deemed a high fall risk. Fall precautions in place. Walker provided for ambulation with standby assist. Patient refused telesitter and compression sequentials that were ordered. Patient states baseline pain is 6/10 due to chronic pain. Left lower leg cleansed with normal saline, santyl and non-adherent dressings applied as ordered.
--- NOTE | 2020-08-31 20:23 | P.CNID_ITS ---
History of Present Illness Data of Consult Service Date: 08/31/20 Requesting physician: Ashley Mark Primary Care Provider: Barbie Brown MD HPI Reason for consult: reddened left leg She presents with redness and discomfort and swelling left lower extremity for two months She has had no fever or chills She has no positive cultures She has been on three courses of po Doxycycline with no improvement She has no injury to legs Review of Systems Constitutional: Constitutional: Reports weakness (Mild, left side) Neurologic: Reports weakness (Mild, left side) [facility] Past Medical History Medical History Arthritis CVA (cerebral vascular accident) Fibromyalgia Hypothyroid Lupus Proteinuria Functional capacity: uses cane/walker Family History Family History Father No problems noted. Mother Lung cancer Surgical History Surgical History History of breast lump/mass excision History of bunionectomy History of cholecystectomy History of excision of mass History of partial hysterectomy Social History Social History Household Members: Children Housing: House Do you presently have visiting nurse or other home services: Yes ([employer]) Alcohol intake: never Smoking Status: Current every day smoker Tobacco Type: Cigarette Packs Per Day: 1 Cigarettes Per Day: 20.0 Years Smoked: 29 Smoked in Last 30 Days: Yes Patient Interested in Nicotine Replacement: Yes Patient Given Instructions on How to Stop Smoking: Yes Date Education Initiated: 08/31/20 Second Hand Smoke Exposure: No Use of substances other than those prescribed or required for medical reasons: No Currently Displaying Signs/Symptoms of Drug Intoxication Withdrawal: No Any prior treatment program specific to substance use: No Have you been hit, kicked, punched, or otherwise hurt by someone within the past year? If so, by whom?: No Do you feel safe in your current relationship?: No Current Relationship Is there a partner from a previous relationship who is making you feel unsafe now?: No Are you made to feel afraid or neglected: No Advance Directives: No Advance Directives Information Provided: No Advance Directives on File: No Do you have thoughts of harming others: None Do you have a plan to hurt others: No Plan Recently lost weight without trying: Yes Current occupational status: disabled Meds Allergies Allergy/AdvReac Type Severity Reaction Status Date / Time clarithromycin Allergy Intermediate FACIAL Verified 08/15/20 16:58 [CLARITHROMYCIN] SWELLING/REDNESS, facial rash, facial rash, facial rash, facial rash Home Medications Medication Instructions Recorded Confirmed Type fluticasone propionate 110 1 puff INHALATION BID 08/15/20 08/31/20 History mcg/actuation HFA aerosol inhaler hydroxychloroquine 200 mg tablet 200 mg PO BID 08/15/20 08/31/20 History lorazepam 1 mg tablet 1 mg PO BID PRN 08/15/20 08/31/20 History pravastatin 40 mg tablet 40 mg PO BEDTIME 08/15/20 08/31/20 History fluoxetine 40 mg capsule 40 mg PO DAILY 08/20/20 08/31/20 History levothyroxine 150 mcg tablet 150 mcg PO DAILY 08/20/20 08/31/20 History albuterol sulfate 2 puff INHALATION Q4H PRN 08/31/20 08/31/20 History albuterol sulfate 2.5 mg INHALATION Q6H PRN 08/31/20 08/31/20 History apixaban [Eliquis] 5 mg PO BID 08/31/20 08/31/20 History bupropion HCl 100 mg PO BID 08/31/20 08/31/20 History jyuvwdsvow-uuklqzyutsqsj-wwwv 2 tab PO DAILY PRN 08/31/20 08/31/20 History ferrous sulfate 325 mg PO DAILY 08/31/20 08/31/20 History folic acid 1 mg PO DAILY 08/31/20 08/31/20 History nortriptyline 50 mg PO BEDTIME 08/31/20 08/31/20 History oxycodone 15 mg PO 5XD 08/31/20 08/31/20 History prednisone 5 mg PO DAILY 08/31/20 08/31/20 History Physical Exam Vital Signs: Vital Signs: Vital Signs Temp Pulse Resp BP Pulse Ox 08/31/20 15:12 97.2 F 75 18 108/53 L 92 08/31/20 11:13 98.6 F 76 16 93/53 L 94 08/31/20 09:09 61 102/54 L 93 08/31/20 06:52 76 16 103/50 L 94 08/31/20 00:51 97.5 F 83 16 115/50 L 97 Body Mass Index 24.9 Const: General: cooperative Orientation/consciousness: oriented to person, oriented to place and oriented to time HENMT: Head: Yes normal to inspection Ears: hearing grossly normal bilaterally Resp: Effort & Inspection: normal respiratory effort Cardio: Rate: regular rate Rhythm: regular rhythm GI: Inspection: Yes normal to inspection Auscultation: normal bowel sounds Skin: Full body images: 1. 1 cm purulent skin lesion 2. 1 cm purulent skin lesion Neuro: General: oriented to person, oriented to place and oriented to time Assessment and Plan (1) Ulcer of lower extremity: Problem details: she has open wounds of the medial aspect of the left lower leg, etiology unclear, with delayed healing. Concern over lupus related ulcer,on steroids,Plaquenil leukocytoclastic vasculitis or fungus or AFB Status: Acute Appropriate skin biopsy per Surgery to check for AFB,fungus, lupus related Antibiotics next day or two ,Vancomycin and Zosyn until then (2) Cellulitis: Qualifiers: Laterality: left Site of cellulitis: extremity Site of cellulitis of extremity: lower extremity Qualified Code(s): L03.116 - Cellulitis of left lower limb Status: Acute Results Labs CBC & Chem 7: 08/31/20 03:33 08/31/20 03:34 Labs: Short CBC 08/31/20 Range/Units 03:33 WBC 6.0 (4.8-10.8) X10*3/uL Hgb 8.8 L (12.0-16.0) g/dl Hct 30.4 L (37-47) % Plt Count 227 (160-400) X10*3/uL BMP 08/31/20 03:34 Sodium 138 Potassium 4.4 Chloride 100 Carbon Dioxide 32 H BUN 12 Creatinine 0.92 Calcium 8.6 Liver Function 08/31/20 Range/Units 03:34 Total Bilirubin 0.4 (0.0-1.0) mg/dL AST 18 (5-31) U/L ALT 10 (0-31) U/L Alkaline Phosphatase 160 H (39-117) U/L Albumin 3.0 L (3.5-5.0) g/dL Urine 08/31/20 Range/Units 04:51 Urine Color STRAW Urine Appearance CLEAR Urine pH 6.0 (5.0-8.0) Ur Specific [place] <= 1.005 (1.005-1.025) Urine Protein NEG (NEG-TRACE) MG/DL Urine Glucose (UA) NEG (NEG) MG/DL
[2020-08-31] MEDS: Nortriptyline HCl 25 MG CAPSULE 50 MG PO (21:30)
[2020-08-31] MEDS: Fluticasone Propionate Nasal 16 GM SPRAY 1 SPRAY NOSTRIL-B (21:30)
[2020-08-31] MEDS: Pravastatin Sodium 40 MG TABLET PO (21:31)
[2020-08-31 23:50] VITALS: BP 109/55; PULSE 77; RESP 16; TEMP 37.2; O2SAT 92
[2020-09-01] MEDS: diphenhydrAMINE HCL 50 MG/ML VIAL 25 MG IVPUSH (00:07)
[2020-09-01] MEDS: 0.9 % Sodium Chloride Flush 3 ML SYRINGE IVFLUSH ×3 (00:10→22:55)
[2020-09-01] MEDS: Piperacillin Sodium/Tazobactam 3.375 GM in 0.9 % Sodium Chloride 50 ML IV ×4 (03:12→21:11)
[2020-09-01] MEDS: oxyCODONE HCl Immed Release 15 MG TABLET PO ×5 (05:41→20:59)
[2020-09-01] MEDS: Levothyroxine Sodium 150 MCG TABLET PO (05:41)
--- NOTE | 2020-09-01 07:29 | MHC.SHP ---
Pre-Procedural Eval Section A The patient is an INPATIENT: No Changes since office visit: Yes Patient answered all questions; No Cold of Flu in the past 2 weeks, No New Medical Problems and No Changes in Medication The History & Physical has been completed within 30 days and I have reviewed it.: Yes Section B Chief Complaint: CELLULITIS Allergies: Allergies Allergy/AdvReac Type Severity Reaction Status Date / Time clarithromycin Allergy Intermediate FACIAL Verified 08/15/20 16:58 [CLARITHROMYCIN] SWELLING/REDNESS, facial rash, facial rash, facial rash, facial rash Plan Diagnosis/Plan: Unchanged Patient has been examined and remains a candidate for the planned procedure
[2020-09-01 07:45] VITALS: BP 106/53; PULSE 73; RESP 18; TEMP 36.2; O2SAT 91
--- NOTE | 2020-09-01 09:00 | P.OP_ITS ---
Operative Note Operative Note Narrative: Preoperative diagnosis: Nonhealing ulcers left lower leg Postoperative diagnosis: same Procedure: Incisional biopsy of skin and ulcer bed Anesthesia: local 1% lidocaine with epinephrine 2 cc Estimated blood loss: 2 cc Immediate complications: none Indications: This is a 45-year-old female with a complicated past medical history including lupus, rheumatoid arthritis, and CVA, antiphospholipid syndrome, who has an approximately 3 month history of nonhealing ulcers of the left lower extremity. Etiology is unclear and biopsy for fungal culture and assessment for vasculitis has been requested. She is aware of the technique of the procedure and risks of infection, bleeding, and continued nonhealing. Procedure in detail: With there her sitting on the OR table, the superior most ulcer on the anterior medial aspect of the left lower leg just below the knee was prepped with Betadine solution and draped sterilely. Skin and subcutaneous tissues and ulcer bed along the superior rim of the ulcer were infiltrated with local anesthetic. Two small pieces of skin and immediate subcutaneous tissue as well as adjacent ulcer bed were excised. Each piece measured approximately 2 x 4 mm. One piece was sent for fungal culture of the other for histology. There was no significant bleeding. The ulcer beds were cleansed with saline solution. Silver alginate dressings were applied. She tolerated the procedure well and was returned to the medical- surgical floor in stable condition. There were no immediate complications.
--- NOTE | 2020-09-01 09:10 | MHC.SHP ---
Pre-Procedural Eval Section A The patient is an INPATIENT: Yes The History & Physical has been completed within 30 days and I have reviewed it.: Yes Section B Chief Complaint: CELLULITIS Allergies: Allergies Allergy/AdvReac Type Severity Reaction Status Date / Time clarithromycin Allergy Intermediate FACIAL Verified 08/15/20 16:58 [CLARITHROMYCIN] SWELLING/REDNESS, facial rash, facial rash, facial rash, facial rash Plan Diagnosis/Plan: Unchanged Patient has been examined and remains a candidate for the planned procedure
[2020-09-01 09:13] LABS: Erythrocyte Sedimentation Rate 81 MM/HR (0-20)
--- NOTE | 2020-09-01 09:17 | PM.CNGS ---
History of Present Illness Consult details Consult date: 08/31/20 Reason for consult: other (left leg wounds and cellulitis) Requesting physician: Ashley Mark Narrative: The pt is a 45 year old female with SLE who has been developing leg wounds - ulcerated with necrotic tissue and cellulitis. She is admitted now and is getting iv antibx and surgery has been consulted for wound care and to do a biopsy. pt says she has been seen once in wound care clinic before. Review of Systems Constitutional: Constitutional: Reports weakness (Mild, left side) Neurologic: Reports weakness (Mild, left side) [facility] Past Medical History Medical History Arthritis CVA (cerebral vascular accident) Fibromyalgia Hypothyroid Lupus Proteinuria Functional capacity: uses cane/walker Family History Family History Father No problems noted. Mother Lung cancer Surgical History Surgical History History of breast lump/mass excision History of bunionectomy History of cholecystectomy History of excision of mass History of partial hysterectomy Social History Social History Household Members: Children Housing: House Do you presently have visiting nurse or other home services: Yes ([employer]) Alcohol intake: never Smoking Status: Current every day smoker Tobacco Type: Cigarette Packs Per Day: 1 Cigarettes Per Day: 20.0 Years Smoked: 29 Smoked in Last 30 Days: Yes Patient Interested in Nicotine Replacement: Yes Patient Given Instructions on How to Stop Smoking: Yes Date Education Initiated: 08/31/20 Second Hand Smoke Exposure: No Use of substances other than those prescribed or required for medical reasons: No Currently Displaying Signs/Symptoms of Drug Intoxication Withdrawal: No Any prior treatment program specific to substance use: No Have you been hit, kicked, punched, or otherwise hurt by someone within the past year? If so, by whom?: No Do you feel safe in your current relationship?: No Current Relationship Is there a partner from a previous relationship who is making you feel unsafe now?: No Are you made to feel afraid or neglected: No Advance Directives: No Advance Directives Information Provided: No Advance Directives on File: No Do you have thoughts of harming others: None Do you have a plan to hurt others: No Plan Recently lost weight without trying: Yes Current occupational status: disabled Meds Allergies Allergy/AdvReac Type Severity Reaction Status Date / Time clarithromycin Allergy Intermediate FACIAL Verified 08/15/20 16:58 [CLARITHROMYCIN] SWELLING/REDNESS, facial rash, facial rash, facial rash, facial rash Home Medications Medication Instructions Recorded Confirmed Type fluticasone propionate 110 1 puff INHALATION BID 08/15/20 08/31/20 History mcg/actuation HFA aerosol inhaler hydroxychloroquine 200 mg tablet 200 mg PO BID 08/15/20 08/31/20 History lorazepam 1 mg tablet 1 mg PO BID PRN 08/15/20 08/31/20 History pravastatin 40 mg tablet 40 mg PO BEDTIME 08/15/20 08/31/20 History fluoxetine 40 mg capsule 40 mg PO DAILY 08/20/20 08/31/20 History levothyroxine 150 mcg tablet 150 mcg PO DAILY 08/20/20 08/31/20 History albuterol sulfate 2 puff INHALATION Q4H PRN 08/31/20 08/31/20 History albuterol sulfate 2.5 mg INHALATION Q6H PRN 08/31/20 08/31/20 History apixaban [Eliquis] 5 mg PO BID 08/31/20 08/31/20 History bupropion HCl 100 mg PO BID 08/31/20 08/31/20 History dtldnitjng-yspsorlmmttue-mlfr 2 tab PO DAILY PRN 08/31/20 08/31/20 History ferrous sulfate 325 mg PO DAILY 08/31/20 08/31/20 History folic acid 1 mg PO DAILY 08/31/20 08/31/20 History nortriptyline 50 mg PO BEDTIME 08/31/20 08/31/20 History oxycodone 15 mg PO 5XD 08/31/20 08/31/20 History prednisone 5 mg PO DAILY 08/31/20 08/31/20 History Physical Exam Vital Signs: Vital Signs: Vital Signs Temp Pulse Resp BP Pulse Ox 09/01/20 07:45 97.1 F 73 18 106/53 L 91 L 08/31/20 23:50 98.9 F 77 16 109/55 L 92 08/31/20 15:12 97.2 F 75 18 108/53 L 92 08/31/20 11:13 98.6 F 76 16 93/53 L 94 Body Mass Index 24.9 Skin: Other: the left leg has some open sores around the medial area - upper aspect of lower leg and the lower aspect - greyish necrotic and ulcerated wounds. there was apparent cellulitis area demarcated but not noticed now. Results Labs Result diagrams: 08/31/20 03:33 08/31/20 03:34 Labs: Abnormal lab results 09/01/20 Range/Units 06:21 ESR 81 H (0-20) MM/HR Urine 08/31/20 Range/Units 04:51 Urine Color STRAW Urine Appearance CLEAR Urine pH 6.0 (5.0-8.0) Ur Specific [place] <= 1.005 (1.005-1.025) Urine Protein NEG (NEG-TRACE) MG/DL Urine Glucose (UA) NEG (NEG) MG/DL Urine Test NEGATIVE (NEGATIVE) All other labs normal. Assessment and Plan (1) Ulcer of lower extremity: Problem details: leg ulcers, ? etiology related t SLE -- there is necrotic tissue which needs to be debrided. pt has a general surgery consult who is seeing her so recommend they debride the wound as needed can use santyl for topical debridement for now but really needs sharp debridement we can follow up with the wounds in the wound care clinic when the pt is discharged. Status: Acute (2) Cellulitis: Qualifiers: Laterality: left Site of cellulitis: extremity Site of cellulitis of extremity: lower extremity Qualified Code(s): L03.116 - Cellulitis of left lower limb Problem details: medical treatment with iv antibx. it looks improved Status: Acute
[2020-09-01] MEDS: Ferrous Sulfate 324 MG TABLET.DR PO (09:19)
[2020-09-01] MEDS: buPROPion HCL 100 MG TABLET PO ×2 (09:19→20:57)
[2020-09-01] MEDS: Hydroxychloroquine Sulfate 200 MG TABLET PO ×2 (09:19→20:57)
[2020-09-01] MEDS: FLUoxetine HCl 20 MG CAPSULE 40 MG PO (09:19)
[2020-09-01] MEDS: Folic Acid 1 MG TABLET PO (09:19)
[2020-09-01] MEDS: predniSONE 5 MG TABLET PO (09:19)
[2020-09-01] MEDS: Nicotine 14 MG PATCH.TD24 TRANSDERMA (09:20)
[2020-09-01] MEDS: Collagenase Clostridium Hist. 30 GM TUBE 1 APPL TOPICAL ×2 (09:26→14:26)
[2020-09-01] MEDS: Fluticasone Propionate Nasal 16 GM SPRAY 1 SPRAY NOSTRIL-B (09:26)
[2020-09-01] MEDS: vancomycin HCL 750 MG in 0.9 % Sodium Chloride 250 ML 265 MG IV ×2 (10:11→21:43)
--- NOTE | 2020-09-01 13:43 | PM.IMPN ---
Subjective Subjective Date of Service: 09/01/20 Interval History: Redness/swelling improved Underwent biopsy of ulcer today No fever/chills/nausea/vomiting Constitutional Constitutional: Denies fever(s) Cardiovascular Cardiovascular: Denies chest pain and Denies dyspnea Respiratory Respiratory: Denies cough and Denies dyspnea Gastrointestinal Gastrointestinal: Denies abdominal pain, Denies nausea and Denies vomiting Integumentary/Breasts Skin/Breast: Reports skin ulcer Physical Exam Vital Signs: Vital Signs: Vital Signs Temp Pulse Resp BP Pulse Ox 09/01/20 07:45 97.1 F 73 18 106/53 L 91 L 08/31/20 23:50 98.9 F 77 16 109/55 L 92 08/31/20 15:12 97.2 F 75 18 108/53 L 92 Body Mass Index 24.9 Const: General: no acute distress Resp: Effort & Inspection: normal respiratory effort and no respiratory distress Auscultation: clear to auscultation bilaterally and no wheezes Cardio: Rate: regular rate Rhythm: regular rhythm Heart sounds: no murmurs GI: Palpation (GI): Soft to palpation and nontender Skin: Other: erythema and induration of LLE resolved; multiple ulcers Extrem: General: Yes no clubbing, cyanosis or edema Objective Data Current Medications Generic Name Dose Route Start Last Admin Trade Name Freq PRN Reason Stop Dose Admin Acetaminophen 650 mg 08/31/20 08:56 Acetaminophen 325 Mg Tablet PO Q6H PRN Pain and Fever Acetaminophen/Butalbital/Caffeine 2 tab 08/31/20 09:44 Butalb/Acetamin/Caff 50/325/40 1 Tab Tablet PO DAILY PRN headache Albuterol Sulfate 2.5 mg 08/31/20 09:44 08/31/20 19:41 Albuterol Sulfate (0.083%) 2.5 Mg/3 Ml Vial.Neb INHALE 2.5 mg Q6H PRN Administration Shortness Of Breath Or Wheezing Albuterol Sulfate 2 puff 08/31/20 09:44 Albuterol Sulfate 90 Mcg 18 Gm Inhaler INHALE Q4H PRN Shortness Of Breath Or Wheezing Apixaban 5 mg 08/31/20 09:45 08/31/20 11:31 Apixaban 5 Mg Tablet PO 5 mg BID ANDRIA Administration Bupropion HCl 100 mg 08/31/20 10:00 09/01/20 09:19 Bupropion Hcl 100 Mg Tablet PO 100 mg BID ANDRIA Administration Collagenase 1 appl 08/31/20 17:15 09/01/20 09:26 Collagenase Clostridium Hist. 30 Gm Tube TOPICAL 1 dose DAILY ANDRIA Administration Protocol Docusate Sodium 100 mg 08/31/20 08:56 Docusate Sodium 100 Mg Capsule PO BID PRN Constipation Ferrous Sulfate 324 mg 08/31/20 10:00 09/01/20 09:19 Ferrous Sulfate 324 Mg Tablet.Dr PO 324 mg DAILY ANDRIA Administration Fluoxetine HCl 40 mg 08/31/20 10:00 09/01/20 09:19 Fluoxetine Hcl 20 Mg Capsule PO 40 mg DAILY ANDRIA Administration Fluticasone Propionate 1 spray 08/31/20 10:00 09/01/20 09:26 Fluticasone Propionate Nasal 16 Gm [place] NOSTRIL-B 1 spray BID ANDRIA Administration Folic Acid 1 mg 08/31/20 09:45 09/01/20 09:19 Folic Acid 1 Mg Tablet PO 1 mg DAILY ANDRIA Administration Hydroxychloroquine Sulfate 200 mg 08/31/20 09:45 09/01/20 09:19 Hydroxychloroquine Sulfate 200 Mg Tablet PO 200 mg BID ANDRIA Administration Piperacillin Sod/Tazobactam 50 mls @ 100 mls/hr 08/31/20 14:00 09/01/20 09:59 Sod 3.375 gm/ Sodium Chloride IV Infused Q6H ANDRIA Infusion Vancomycin HCl 750 mg/ Sodium 265 mls @ 265 mls/hr 08/31/20 21:00 09/01/20 11:34 Chloride IV Infused Q12H ANDRIA Infusion Levothyroxine Sodium 150 mcg 08/31/20 09:45 09/01/20 05:41 Levothyroxine Sodium 150 Mcg Tablet PO 150 mcg DAILY@0630 ANDRIA Administration Lorazepam 1 mg 08/31/20 09:44 Lorazepam 1 Mg Tablet PO BID PRN Anxiety Nicotine 14 mg 08/31/20 14:45 09/01/20 09:20 Nicotine 14 Mg Patch.Td24 TRANSDERMA 14 mg DAILY ANDRIA Administration Nortriptyline HCl 50 mg 08/31/20 21:00 08/31/20 21:30 Nortriptyline Hcl 25 Mg Capsule PO 50 mg BEDTIME ANDRIA Administration Oxycodone HCl 15 mg 08/31/20 10:00 09/01/20 10:10 Oxycodone Hcl Immed Release 15 Mg Tablet PO 15 mg 5XD ANDRIA Administration Pharmacy Consult 1 each 08/31/20 09:04 Consult Rx Vancomycin Dosing MISCELLANE DAILY PRN Consult order Pravastatin Sodium 40 mg 08/31/20 21:00 08/31/20 21:31 Pravastatin Sodium 40 Mg Tablet PO 40 mg BEDTIME ANDRIA Administration Prednisone 5 mg 08/31/20 09:45 09/01/20 09:19 Prednisone 5 Mg Tablet PO 5 mg DAILY ANDRIA Administration Sodium Chloride 3 ml 08/31/20 16:00 09/01/20 08:02 0.9 % Sodium Chloride Flush 3 Ml Syringe IVFLUSH Not Given QSHIFT [facility] Labs CBC & Chem 7: 08/31/20 03:33 08/31/20 03:34 Labs: Laboratory Results - last 24 hr 09/01/20 06:21 ESR 81 H Microbiology Microbiology Results: Microbiology 08/31/20 04:51 Blood - Venous Blood Culture - Preliminary No growth after 24 hours. 08/31/20 04:51 Blood - Venous Blood Culture - Preliminary No growth after 24 hours. Progress Note: A&P (1) Ulcer of lower extremity: Status: Acute (2) Cellulitis: Status: Acute Assessment and Plan: hospital d#2 45yo F with SLE on chronic prednisone + hydroxychloroquine admitted for nonresolving cellulitis of L tsai with non-healing ulcers, failed outpt ABX # cellulitis - continue vanco + pip/matt d#2, ID following # non-healing ulcers - ?vasculitis ?fungal ?mycobacterial - follow biopsy from today # SLE - continue chronic prednisone + hydroxychloroquine # hx CVA ?APLAS - recently changed from warfarin to apixaban; continue # iron deficiency anemia, chronic - continue FeSO4 # hypothyroidism - continue LT4 # depression/anxiety - continue bupropion + fluoxetine + lorazepam
[2020-09-01 16:00] VITALS: BP 113/54; PULSE 76; RESP 18; TEMP 37.1; O2SAT 95
[2020-09-01] MEDS: Nortriptyline HCl 25 MG CAPSULE 50 MG PO (20:56)
[2020-09-01] MEDS: Pravastatin Sodium 40 MG TABLET PO (20:57)
[2020-09-01] MEDS: Apixaban 5 MG TABLET PO (20:57)
[2020-09-01] MEDS: Acetaminophen 325 MG TABLET 650 MG PO (22:58)
[2020-09-02] VITALS: BP 104/44; PULSE 73; RESP 18; TEMP 36.4; O2SAT 90
[2020-09-02] MEDS: Piperacillin Sodium/Tazobactam 3.375 GM in 0.9 % Sodium Chloride 50 ML IV ×2 (03:06→08:10)
[2020-09-02] MEDS: Levothyroxine Sodium 150 MCG TABLET PO (05:56)
[2020-09-02] MEDS: oxyCODONE HCl Immed Release 15 MG TABLET PO ×2 (05:56→11:15)
[2020-09-02 07:05] LABS: C Reactive Protein 1.98 mg/dL (< or = 0.50)
[2020-09-02 07:06] VITALS: BP 100/44; PULSE 72; RESP 18; TEMP 36.8; O2SAT 94
[2020-09-02] MEDS: buPROPion HCL 100 MG TABLET PO (08:09)
[2020-09-02] MEDS: Nicotine 14 MG PATCH.TD24 TRANSDERMA (08:09)
[2020-09-02] MEDS: predniSONE 5 MG TABLET PO (08:09)
[2020-09-02] MEDS: FLUoxetine HCl 20 MG CAPSULE 40 MG PO (08:09)
[2020-09-02] MEDS: Apixaban 5 MG TABLET PO (08:09)
[2020-09-02] MEDS: Hydroxychloroquine Sulfate 200 MG TABLET PO ×2 (08:09→08:11)
[2020-09-02] MEDS: Folic Acid 1 MG TABLET PO (08:09)
[2020-09-02] MEDS: 0.9 % Sodium Chloride Flush 3 ML SYRINGE IVFLUSH (08:10)
[2020-09-02 09:09] VITALS: BP 100/44; PULSE 72; O2SAT 94
[2020-09-02] MEDS: vancomycin HCL 750 MG in 0.9 % Sodium Chloride 250 ML 265 MG IV (09:23)
[2020-09-02] MEDS: Fluticasone Propionate Nasal 16 GM SPRAY 1 SPRAY NOSTRIL-B (09:24)
[2020-09-02] MEDS: Ferrous Sulfate 324 MG TABLET.DR PO (10:17)
--- NOTE | 2020-09-02 13:51 | MHC.CM.PN ---
PER MULTIDISCIPLINARY [id number], PT LIKELY TO DC OVER THE WEEKEND AND WILL NEED VNA SERVICES. REFERRAL MADE TO [facility] PER PT PREFERENCE
--- NOTE | 2020-09-02 14:27 | W.MHC.F2F ---
Service Date Service Date: 09/02/20 Encounter Date of encounter: 09/02/20 Reasons for Services Reason for senior living: wound care Reason for physical therapy: home safety and mobility, gait/transfer training and assess need for DME overseeing care: Barbie Brown MD Homebound: Leaving the home is medically contraindicated at this time without the asist of a device and/or another person due th the listed conditions above and below. Reason homebound: immunosuppression / infection risk and weakness related to hospital stay Homebound supporting statement: Patient was admitted to [facility] 08/31-09/02/20 for nonresolving cellulitis with ulcers. Ulcer was biopsied and results pending. VNA for wound care, med management, pT Certification: Based on the above findings, I certify that this patient is confined to the home and needs intermittent senior living care, physical therapy and/or speech therapy, or continues to need occupational therapy. The patient is under my care, and I have initiated the establishment of the plan of care. The patient will be followed by a physician who will periodically review the plan of care.
--- NOTE | 2020-09-02 14:38 | MHC.CM.PN ---
DISCHARGE HOME TODAY WITH [facility]. PT WILL SELF ARRANGE TRANSPORTATION
--- NOTE | 2020-09-02 14:41 | PM.DS ---
DS: Providers Provider Date of admission: 08/31/20 08:56 Primary care physician: Babrie Brown MD Admitting clinician: Ashley Mark Attending physician on admission: Ashley Mark Consults: 08/31/20 08:56 Consult to Wound Care Provider Routine Consulting Provider: [facility] [place] Wound Care Management Reason for consultation: Nonhealing ulcers 08/31/20 09:01 Consult to Physician Routine Consulting Provider: Karen Tabor Reason for consultation: Cellulitis in immunosuppressed patient, failure of outpatient treatment 08/31/20 13:02 Consult to General Surgery Routine Consulting Provider: [facility] [place] General Surgeons Reason for consultation: Requesting excisional biopsy of edge of ulcer- ?vasculitis ?fungal Attending physician on discharge: Ashley Mark Discharging clinician: Ashley Mark DS: Diagnosis Discharge Diagnosis (1) Ulcer of lower extremity: Status: Acute (2) Cellulitis: Status: Acute DS: Summary Hospital Course Hospital Course: From my history and physical from admission, 08/31/20: Chief Complaint: left leg infection/ulcers Ms Rea is a 45 year-old woman with SLE, on chronic prednisone and hydroxychloroquine, who has had recurrent left leg cellulitis for the past 2 months. She has taken 3 separate courses of oral doxycycline without resolution; the last course was completed 4 days ago. She has been seen by the [facility] [place] [place] Wound Care Clinic and was advised to present to the ED for IV antibiotics should the cellulitis recur or persist. She presents with worsening redness, swelling, and pain with multiple ulcers on the left tsai. She denies trauma to the limb. She denies fever or chills. No nausea or vomiting. No lightheadedness. The patient was admitted to the medical-surgical floor. She was not septic. She was treated with broad-spectrum antibiotics due to her immunosuppression from SLE treatment. Infectious disease was consulted and recommended excisional biopsy from 1 of the nonhealing ulcers, which was done by General surgery. The concern is of vasculitis versus fungal versus atypical mycobacterial infection. no cellulitis resolved rapidly and she was discharged on oral antibiotics. 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 VNA services were arranged for wound care. Time Spent with Patient Time attestation: Total time spent providing and/or coordinating discharge services: 35 Physical Exam Vital Signs: Vital Signs: Vital Signs Temp Pulse Resp BP Pulse Ox 09/02/20 09:09 72 100/44 L 94 09/02/20 07:06 98.3 F 72 18 100/44 L 94 09/02/20 00:00 97.6 F 73 18 104/44 L 90 L 09/01/20 16:00 98.7 F 76 18 113/54 L 95 Body Mass Index 24.9 DS: Data Data Completed and Pending Pending studies at discharge: Pending at discharge 09/01/20 08:37 Surgical [PTH] Routine Labs on day of discharge: Labs from last 24 hours 09/02/20 09/01/20 06:13 19:56 C-Reactive Protein 1.98 H Vancomycin Trough 17.0 Preliminary micro results at discharge 08/31/20 04:51 Blood Culture - Preliminary Blood - Venous No growth after 48 hours. 08/31/20 04:51 Blood Culture - Preliminary Blood - Venous No growth after 48 hours. Discharge Plan Discharge Patient Disposition: Home Health Service Referrals: [facility] [Outside] Barbie Dunn MD [Primary Care Provider] - Discharge Medications: New doxycycline monohydrate 100 mg tablet 100 mg PO BID Qty: 10 RF: 0 amoxicillin-pot clavulanate 875-125 mg tablet 1 tab PO BID Qty: 10 RF: 0 Continued albuterol sulfate 2.5 mg /3 mL (0.083 %) solution for nebulization 2.5 mg inhalation Q6H PRN (Reason: Shortness Of Breath Or Wheezing) RF: 0 prednisone 5 mg tablet 5 mg PO DAILY RF: 0 bupropion HCl 100 mg tablet sustained-release 12 hr 100 mg PO BID RF: 0 szxgtzfjxw-hiulruuoqfouj-kxcu 50-325-40 mg tablet 2 tab PO DAILY PRN (Reason: headache) RF: 0 oxycodone 15 mg tablet 15 mg PO 5XD RF: 0 ferrous sulfate 325 mg (65 mg iron) tablet 325 mg PO DAILY RF: 0 folic acid 1 mg tablet 1 mg PO DAILY RF: 0 albuterol sulfate 90 mcg/actuation HFA aerosol inhaler 2 puff inhalation Q4H PRN (Reason: Shortness Of Breath Or Wheezing) RF: 0 nortriptyline 50 mg capsule 50 mg PO BEDTIME RF: 0 Eliquis 5 mg tablet 5 mg PO BID RF: 0 levothyroxine 150 mcg tablet 150 mcg PO DAILY RF: 0 fluoxetine [Prozac] 40 mg capsule 40 mg PO DAILY RF: 0 lorazepam 1 mg tablet 1 mg PO BID PRN (Reason: Anxiety) RF: 0 fluticasone propionate 110 mcg/actuation HFA aerosol inhaler 1 puff inhalation BID RF: 0 pravastatin 40 mg tablet 40 mg PO BEDTIME RF: 0 hydroxychloroquine 200 mg tablet 200 mg PO BID RF: 0 Discharge Orders: Discharge Order (Routine); Ordered 09/02/20 Ordered By: Ashley Mark Diet: advance to your usual diet Activity on Discharge: As tolerated Patient Instructions: Cellulitis (DC) Visit Report Forms: Patient Portal Discharge page Care Plan Goals: ulcer healing resolution of leg infection Health Concerns: ulcer, cellulitis Plan of Treatment: ulcer: Santyl to wounds daily, cover with Xeroform, then 4x4, then Kerlix cellulitis: doxycycline 100 mg twice daily and amoxicillin/clavulanate 875/125 mg twice daily, both for 5 days follow up with your primary care doctor for results of biopsy
[2020-09-02 15:24] VITALS: BP 103/52; PULSE 60; RESP 17; TEMP 36.2; O2SAT 93
--- NOTE | 2020-09-02 15:29 | MHC.CM.PN ---
Pt requesting [facility] however she will need daily wound care therefore they are not able to accept referral. Referral sent to [facility], currently awaiting response
--- NOTE | 2020-09-02 15:42 | MHC.CM.PN ---
[facility] able to provide PT and daily wound care until pts follow up. DC home today with [facility]
== END 2020-09-02 16:32 | disposition home health service (06) | DRG 593 ==
LOC: HO.ED 07:29 → HO.S3 09:41
PROVIDERS: Surgery; Admitting Provider Family Medicine; Emergency Provider Emergency Medicine; PCP Family Medicine; Visit Provider Family Medicine
DX: L97.829 Non-pressure chronic ulcer of other part of left lower leg with unspecified severity (principal); L03.116 Cellulitis of left lower limb; M32.9 Systemic lupus erythematosus, unspecified; E03.9 Hypothyroidism, unspecified; M79.7 Fibromyalgia; F17.210 Nicotine dependence, cigarettes, uncomplicated; F41.9 Anxiety disorder, unspecified; F32.9 Major depressive disorder, single episode, unspecified; D50.9 Iron deficiency anemia, unspecified; Z71.6 Tobacco abuse counseling; Z86.73 Personal history of transient ischemic attack (TIA), and cerebral infarction without residual deficits; Z79.01 Long term (current) use of anticoagulants; Z79.51 Long term (current) use of inhaled steroids; Z79.52 Long term (current) use of systemic steroids; Z79.891 Long term (current) use of opiate analgesic; Z79.899 Other long term (current) drug therapy
CPT/HCPCS: 36415; 80053; 80202; 81003; 81025; 82728; 83540; 83605; 83690; 85007; 85027; 85652; 86140; 87040; 87101; 87116; 88304; 88305; 88311; 88312; 88313; 94640; 96365; 97162; 99221; 99285; J1200

== ENCOUNTER 2020-09-28 13:13 | Outpatient (REF) | payer MEDICARE, MEDICAID, SELFPAY ==
--- NOTE | 2020-09-28 13:16 | CT_ITS ---
EXAMINATION: CT HIP WITHOUT CONTRAST, LEFT CLINICAL INFORMATION: Left hip pain. COMPARISON: X-ray 05/18/2020. TECHNIQUE: Axial imaging. Sagittal and coronal reconstructions. This CT examination was performed using dose optimization techniques as appropriate, variously including the following: *Automated exposure control *Adjustment of mA and/or kV according to patient size (this includes techniques or standardized protocols for targeted exams where dose is matched to indication/reason for exam; i.e. extremities or head) *Use of iterative reconstruction technique DLP: 272 mGy-cm FINDINGS: Jrvm-cf-hblrepmo left hip arthritis, with joint space loss, osteophytes, subchondral cysts. There are nonspecific small sclerotic foci in the acetabulum. Remote fractures of the left superior and inferior pubic ramus, suspected to be present on the prior x-ray of 05/18/2020. Cystic focus in the anterior femoral head and neck junction, could represent a synovial herniation pit. There are partially imaged right superior and inferior pubic ramus fractures, with periosteal changes. These are of indeterminate age, could be subacute. These were not clearly visualized on the prior x-ray of 05/18/2020. Visualized left SI joint appears unremarkable. There is subcutaneous edema in the lateral soft tissues of the thigh/hip, with multiple coarse calcifications present. Left groin lymph nodes, larger measuring 1.4 cm in short axis. Urinary bladder is nondistended. No free fluid in the pelvis. CT/CT hip LT wo con IMPRESSION: 1. Mvov-mv-qpanlnzu left hip arthritis. 2. Remote left superior and inferior pubic ramus fractures. 3. Partially imaged right superior and inferior pubic ramus fractures, of indeterminate age, suspected to be at least subacute. These fractures were not clearly visualized on the prior x-ray 05/18/2020. Please clinically correlate. 4. Left groin lymphadenopathy.
== END 2020-09-28 13:14 | disposition home or self-care (01) ==
LOC: HO.CT 13:13
PROVIDERS: PCP Family Medicine; Visit Provider Family Medicine
DX: M25.552 Pain in left hip (principal)
CPT/HCPCS: 73700

== ENCOUNTER 2020-10-10 13:25 | Outpatient (REF) | payer MEDICARE, MEDICAID, SELFPAY ==
--- NOTE | 2020-10-10 13:29 | XR_ITS ---
EXAMINATION: XR PELVIS CLINICAL INFORMATION: Hip pain. COMPARISON: None. TECHNIQUE: AP view of the pelvis. FINDINGS: Bilateral hip joint and SI joint space is maintained. No sclerosis or lytic process seen. Visualized pelvis is normal. There is solitary staple in the right pelvis likely from tubal sterilization. Multiple calcified density seen in bilateral soft tissues of the buttock likely fat necrosis or injection granulomas. XR/XR pelvis 1-2V IMPRESSION: Unremarkable bilateral hip joint and SI joint exam.
== END 2020-10-10 13:26 | disposition home or self-care (01) ==
LOC: HO.HOSX 13:25
PROVIDERS: PCP Family Medicine; Referring Provider Family Medicine; Visit Provider Orthopaedic Surgery
DX: M25.559 Pain in unspecified hip (principal); L97.909 Non-pressure chronic ulcer of unspecified part of unspecified lower leg with unspecified severity; S70.02XA Contusion of left hip, initial encounter
CPT/HCPCS: 72170; 99202

== ENCOUNTER 2020-12-23 17:15 | Outpatient (REF) | payer MEDICARE, MEDICAID, SELFPAY ==
[2020-12-23 18:16] LABS: MANUAL DIFF FLAG NO
[2020-12-23 18:19] LABS: Glucose Urine UA NEG (NEG); Leukocyte Esterase Urine NEG (NEG); Nitrite Urine NEG (NEG); Urine Blood TRACE (NEG); Urine Ketones NEG (NEG); Urine Protein NEG (NEG-TRACE)
[2020-12-23 18:20] LABS: Appearance Urine CLEAR; Basophils Absolute Auto 0.1 X10*3/uL (0.0-0.2); Basophils Percent Auto 0.6 % (0-2); Color Urine YELLOW; Eosinophils Absolute Auto 0.4 X10*3/uL (0.0-0.4); Eosinophils Percent Auto 4.3 % (0-4); Hematocrit 33.1 % (37-47); Hemoglobin 9.9 g/dl (12.0-16.0); Imm Gran Abs Auto 0.05 X10*3/uL (0.00-0.03); Imm Gran Pct Auto 0.6 % (0.0-0.4); Lymphocytes Absolute Auto 0.9 X10*3/uL (1.2-4.9); Lymphocytes Percent Auto 10.6 % (20-40); Mean Corpuscular HGB Conc 29.9 g/dl (31.0-35.0); Mean Corpuscular Hemoglobin 23.7 pg (27.0-33.0); Mean Corpuscular Volume 79.4 fL (80-98); Monocytes Absolute Auto 0.5 X10*3/uL (0.1-1.2); Monocytes Percent Auto 6.2 % (2-11); Neutrophils Absolute Auto 6.3 X10*3/uL (2.0-8.3); Neutrophils Percent Auto 77.7 % (45-73); Platelet Count 178 X10*3/uL (160-400); Red Blood Count 4.17 X10*6/uL (4.20-5.50); Red Cell Distribution Width 14.7 % (11.0-16.0); White Blood Count 8.1 X10*3/uL (4.8-10.8)
[2020-12-23 18:28] LABS: Bacteria Urine 2+ /LPF; RBC Urine 0-2 /HPF (0); Squamous Epithelial Cell Urine 2+ /LPF; WBC Urine 0-2 /HPF (0-4)
[2020-12-23 18:42] LABS: Alanine Aminotransferase 16 U/L (0-31); Albumin Level 3.6 g/dL (3.5-5.0); Alkaline Phosphatase 108 U/L (39-117); Anion Gap 15 (12-20); Aspartate Amino Transferase 15 U/L (5-31); Bilirubin Total 0.2 mg/dL (0.0-1.0); Blood Urea Nitrogen 15 mg/dL (9-16); C Reactive Protein 4.82 mg/dL (< or = 0.50); Calcium 8.8 mg/dL (8.4-10.2); Carbon Dioxide 29 mmol/L (22-29); Chloride 101 mmol/L (96-108); Estimated Glomerular Filt Rate > 60; Glucose Random 116 mg/dL (60-115); Potassium 4.5 mmol/L (3.3-5.1); Sodium 140 mmol/L (135-145); Total Protein 6.6 g/dL (6.5-8.0)
[2020-12-23 19:05] LABS: Erythrocyte Sedimentation Rate 62 MM/HR (0-20)
[2020-12-26 11:51] LABS: DRVVT Confirmation NEGATIVE (NEGATIVE); Hexagonal Phase Neutralization NEGATIVE (NEGATIVE); PTT (LAC) Screen 49 sec (< OR = 40)
[2020-12-26 13:52] LABS: Immunoglobulin G 1155 mg/dL (600-1640)
[2020-12-26 15:02] LABS: Complement C3 80 mg/dL (83-193)
[2020-12-26 22:08] LABS: Cyclic Citrullinated Peptide 18 UNITS
== END 2020-12-23 17:16 | disposition home or self-care (01) ==
LOC: HO.LAB 17:15
PROVIDERS: PCP Family Medicine; Visit Provider Internal Medicine
DX: M32.9 Systemic lupus erythematosus, unspecified (principal)
CPT/HCPCS: 36415; 80053; 81001; 82784; 85025; 85597; 85613; 85652; 85730; 86140; 86160; 86200

== ENCOUNTER 2021-01-11 13:09 | Outpatient (REF) | payer MEDICARE, MEDICAID, SELFPAY ==
--- NOTE | ~2021-01-11 | US_ITS ---
EXAMINATION: RIGHT and LEFT LOWER EXTREMITY VENOUS ULTRASOUND (Reflux Exam) CLINICAL INDICATION: leg pain and varicose veins. COMPARISON: Previous exam July 2020 TECHNIQUE: Color flow triplex imaging and compression Doppler was performed to evaluate both the deep and the superficial systems bilaterally. To evaluate the superficial system, the examination was performed in the upright position. Color-flow Doppler ultrasound and compression ultrasound were utilized. In addition, maneuvers were utilized to demonstrate reflux. FINDINGS: 1. DEEP VENOUS ULTRASOUND OF THE RIGHT LOWER EXTREMITY: Respiratory variation, normal compression and augmented flow are noted in the right common femoral vein as well as the right popliteal vein and there is no evidence of deep venous thrombosis at these locations. There is no evidence of reflux in the deep system in either the common femoral vein or the popliteal vein. There is no evidence of a Ram's cyst. 2. SUPERFICIAL ULTRASOUND WITH DOPPLER OF RIGHT LOWER EXTREMITY: The right great saphenous vein at the saphenofemoral junction measures 7 mm, at the mid thigh 4 mm, rltbf-kha-brkc 4 mm, zmybg-jwj-xnvf 3 mm, at mid calf 3 mm and at the ankle measures 3 mm. There is no reflux demonstrated in the right great saphenous vein. There is an accessory medial greater saphenous vein that measures 2 to 5 mm and does not demonstrate reflux. The right small saphenous vein measures 2-3 mm and shows no reflux. There is a 2 mm remote sensing program manager in the mid calf that does not demonstrate reflux. There is a 3 mm varicosity in the proximal thigh that does not demonstrate reflux. 3. DEEP VENOUS ULTRASOUND OF THE LEFT LOWER EXTREMITY: Respiratory variation, normal compression and augmented flow are noted in the left common femoral vein as well as the left popliteal vein and there is no evidence of deep venous thrombosis at these locations. There is no evidence of reflux in the deep system in either the common femoral vein or the popliteal vein. . There is no evidence of a Ram's cyst. 4. SUPERFICIAL ULTRASOUND WITH DOPPLER OF LEFT LOWER EXTREMITY: Left great saphenous vein at the saphenofemoral junction measures 0.6 mm, at the mid thigh 0.3 mm, xcbzw-dkt-farg 0.3 mm, fevnv-nel-hmvj 0.3 mm, at mid calf 0.3 mm and at the ankle measures 0.3 mm. There is 1 second reflux demonstrated in the left great saphenous vein below the knee. There is a lateral accessory greater saphenous vein that measures 4 mm and does not demonstrate reflux. The left small saphenous vein measures 2-3 mm and shows no reflux. US/US venous duplex LE BI IMPRESSION: 1. No evidence of reflux or thrombus in the common femoral veins or popliteal veins bilaterally. 2. Left greater saphenous vein reflux measuring 1 second below the knee. No right greater saphenous vein reflux.
== END 2021-01-11 13:10 | disposition home or self-care (01) ==
LOC: HO.US 13:09
PROVIDERS: Visit Provider Physician Assistant
DX: I73.9 Peripheral vascular disease, unspecified (principal); I87.2 Venous insufficiency (chronic) (peripheral)
CPT/HCPCS: 93970

== ENCOUNTER → 2021-01-26 14:18 | Outpatient (BNVA) | payer MEDICARE, MEDICAID, SELFPAY | PROVIDERS: PCP Family Medicine; Visit Provider Surgery Vascular Surgery | DX: I83.11 Varicose veins of right lower extremity with inflammation (principal); I73.9 Peripheral vascular disease, unspecified | CPT/HCPCS: 99212 ==

== ENCOUNTER 2021-03-22 14:50 | Outpatient (REF) | payer MEDICARE, MEDICAID, SELFPAY ==
--- NOTE | ~2021-03-22 | US_ITS ---
EXAMINATION: COLOR-FLOW DUPLEX IMAGING OF THE BILATERAL LOWER EXTREMITY ARTERIAL SYSTEM. VELOCITY MEASUREMENTS THROUGHOUT THE FEMORAL ARTERIES WITH ANKLE-BRACHIAL PERIPHERAL ARTERIAL TESTING. CLINICAL INFORMATION: This is a 45-year-old female with peripheral arterial disease. Bilateral leg ulcers. Peripheral vascular disease. Interventional Radiologist: Emanuel Bosch M.D., F.S.I.R., F.A.C.R. RIGHT FEMORAL RUNOFF VELOCITIES: The right common femoral artery measures 207 cm/s and triphasic. The right profunda femoral artery is 172 cm/s and is monophasic. Right proximal superficial femoral artery measures 174 cm/s and triphasic. Mid superficial femoral artery is 174 cm/s and monophasic. Distal right superficial femoral artery measures 179 cm/s and is monophasic. Right popliteal velocity measures 134 cm/s and is monophasic. The posterior tibial artery velocity measures 180 cm/s and was monophasic. There is a right popliteal Ram's cyst measuring 5.5 x 1.1 x 4.4 cm. There is edema within subcutaneous tissues of the right calf. LEFT FEMORAL RUNOFF VELOCITIES: The left common femoral artery measures 156 cm/s and monophasic. The left profunda femoral artery is 174 cm/s and is monophasic. Left proximal superficial femoral artery measures 163 cm/s and monophasic. Mid superficial femoral artery is 154 cm/s and monophasic. Distal left superficial femoral artery measures 175 cm/s and is monophasic. Left popliteal velocity measures 168 cm/s and is monophasic. The posterior tibial artery velocity measures 138 cm/s and was monophasic. US/US arterial duplex LE BI IMPRESSION: 1. There is an elevated velocity in the right common femoral artery which may be indicative of hemodynamically significant stenosis in the left aortoiliac segment. 2. There is monophasic flow throughout the left lower extremity velocities without evidence of focal stenosis. 3. There is a right popliteal Ram's cyst measuring 5.5 cm. 4. There is edema in the right calf.
--- NOTE | ~2021-03-22 | US_ITS ---
EXAMINATION: COLOR-FLOW DUPLEX IMAGING OF THE BILATERAL LOWER EXTREMITY ARTERIAL SYSTEM. VELOCITY MEASUREMENTS THROUGHOUT THE FEMORAL ARTERIES WITH ANKLE-BRACHIAL PERIPHERAL ARTERIAL TESTING. CLINICAL INFORMATION: This is a 45-year-old female with peripheral arterial disease. Bilateral leg ulcers. Peripheral vascular disease. Interventional Radiologist: Emanuel Bosch M.D., F.S.I.R., F.A.C.R. RIGHT FEMORAL RUNOFF VELOCITIES: The right common femoral artery measures 207 cm/s and triphasic. The right profunda femoral artery is 172 cm/s and is monophasic. Right proximal superficial femoral artery measures 174 cm/s and triphasic. Mid superficial femoral artery is 174 cm/s and monophasic. Distal right superficial femoral artery measures 179 cm/s and is monophasic. Right popliteal velocity measures 134 cm/s and is monophasic. The posterior tibial artery velocity measures 180 cm/s and was monophasic. There is a right popliteal Ram's cyst measuring 5.5 x 1.1 x 4.4 cm. There is edema within subcutaneous tissues of the right calf. LEFT FEMORAL RUNOFF VELOCITIES: The left common femoral artery measures 156 cm/s and monophasic. The left profunda femoral artery is 174 cm/s and is monophasic. Left proximal superficial femoral artery measures 163 cm/s and monophasic. Mid superficial femoral artery is 154 cm/s and monophasic. Distal left superficial femoral artery measures 175 cm/s and is monophasic. Left popliteal velocity measures 168 cm/s and is monophasic. The posterior tibial artery velocity measures 138 cm/s and was monophasic. US/US NEGIN complete IMPRESSION: 1. There is an elevated velocity in the right common femoral artery which may be indicative of hemodynamically significant stenosis in the left aortoiliac segment. 2. There is monophasic flow throughout the left lower extremity velocities without evidence of focal stenosis. 3. There is a right popliteal Ram's cyst measuring 5.5 cm. 4. There is edema in the right calf.
[2021-03-22 16:57] LABS: MANUAL DIFF FLAG NO
[2021-03-22 17:04] LABS: Basophils Absolute Auto 0.1 X10*3/uL (0.0-0.2); Basophils Percent Auto 0.8 % (0-2); Eosinophils Percent Auto 9.6 % (0-4); Hematocrit 32.2 % (37-47); Hemoglobin 9.5 g/dl (12.0-16.0); Imm Gran Abs Auto 0.04 X10*3/uL (0.00-0.03); Imm Gran Pct Auto 0.4 % (0.0-0.4); Lymphocytes Absolute Auto 1.2 X10*3/uL (1.2-4.9); Lymphocytes Percent Auto 12.2 % (20-40); Mean Corpuscular HGB Conc 29.5 g/dl (31.0-35.0); Mean Platelet Volume 9.7 fL (9.4-12.3); Monocytes Absolute Auto 0.9 X10*3/uL (0.1-1.2); Monocytes Percent Auto 8.9 % (2-11); Neutrophils Absolute Auto 6.7 X10*3/uL (2.0-8.3); Neutrophils Percent Auto 68.1 % (45-73); Platelet Count 293 X10*3/uL (160-400); Red Blood Count 4.13 X10*6/uL (4.20-5.50); Red Cell Distribution Width 15.5 % (11.0-16.0); White Blood Count 9.9 X10*3/uL (4.8-10.8)
[2021-03-22 17:09] LABS: Estimated Average Glucose 100 mg/dL; Hemoglobin A1c % 5.1 %
[2021-03-22 17:14] LABS: Glucose Urine UA NEG (NEG); Leukocyte Esterase Urine TRACE (NEG); Nitrite Urine NEG (NEG); PH 6.5 (5.0-8.0); Urine Blood TRACE (NEG); Urine Ketones NEG (NEG); Urine Protein NEG (NEG-TRACE)
[2021-03-22 17:19] LABS: Appearance Urine CLEAR; Color Urine YELLOW
[2021-03-22 17:25] LABS: Blood Urea Nitrogen 12 mg/dL (9-16); Calcium 9.1 mg/dL (8.4-10.2); Estimated Glomerular Filt Rate > 60; Glucose Random 91 mg/dL (60-115); Iron 18 mcg/dL (30-160); Percent Iron Saturation 9 % (15-50); Phosphorus 3.1 mg/dL (2.7-4.5); Total Iron Binding Capacity 202 mcg/dL (228-428); Unsaturated Iron Binding 184 ug/dL
[2021-03-22 17:35] LABS: Anion Gap 13 (12-20); Carbon Dioxide 29 mmol/L (22-29); Chloride 101 mmol/L (96-108); Potassium 4.1 mmol/L (3.3-5.1); Sodium 139 mmol/L (135-145)
[2021-03-22 17:39] LABS: Creatinine Urine 52.88 mg/dL; Protein/Creatinine Ratio, Ur 0.25 (<0.2); Total Protein Urine Random 13 mg/dL (<12)
[2021-03-22 17:44] LABS: Ferritin 166 ng/mL (10-250); Vitamin D 25-OH Total 42.7 ng/mL (>30)
[2021-03-22 17:59] LABS: Bacteria Urine TRACE /LPF; RBC Urine 0-2 /HPF (0); Squamous Epithelial Cell Urine 1+ /LPF; WBC Urine 0-2 /HPF (0-4)
[2021-03-23 10:23] LABS: Complement C3 91 mg/dL (83-193)
[2021-03-23 13:11] LABS: Calcium (PTHI) 8.9 mg/dL (8.6-10.2); PTHI 96 pg/mL (14-64)
[2021-03-25 14:01] LABS: Anti Nuclear Antibody Screen NEGATIVE (NEGATIVE)
== END 2021-03-22 14:51 | disposition home or self-care (01) ==
LOC: HO.US 14:50
PROVIDERS: PCP Family Medicine; Referring Provider Internal Medicine Nephrology; Visit Provider Surgery Vascular Surgery
DX: I73.9 Peripheral vascular disease, unspecified (principal); D68.62 Lupus anticoagulant syndrome
CPT/HCPCS: 36415; 80048; 81001; 82306; 82728; 83036; 83540; 83970; 84100; 84156; 85025; 86038; 86039; 86160; 93923; 93925

== ENCOUNTER → 2021-03-28 15:31 | Outpatient (BNVA) | payer MEDICARE, MEDICAID, SELFPAY | PROVIDERS: PCP Family Medicine; Visit Provider Surgery Vascular Surgery | DX: I73.9 Peripheral vascular disease, unspecified (principal) | CPT/HCPCS: 99212 ==

== ENCOUNTER 2021-03-29 08:16 | Day surgery (SDC) | payer MEDICARE, MEDICAID, SELFPAY ==
[2021-03-29] VITALS (11 sets, daily range): BP systolic 114–149; BP diastolic 62–81; PULSE 71–85; RESP 18–20; TEMP 36.4; O2SAT 93–99; BMI 27.6
[2021-03-29 09:13] LABS: MANUAL DIFF FLAG NO
[2021-03-29 09:17] LABS: Basophils Absolute Auto 0.1 X10*3/uL (0.0-0.2); Basophils Percent Auto 0.6 % (0-2); Eosinophils Absolute Auto 0.6 X10*3/uL (0.0-0.4); Hematocrit 32.7 % (37-47); Hemoglobin 9.6 g/dl (12.0-16.0); Imm Gran Abs Auto 0.04 X10*3/uL (0.00-0.03); Imm Gran Pct Auto 0.4 % (0.0-0.4); Lymphocytes Absolute Auto 1.2 X10*3/uL (1.2-4.9); Lymphocytes Percent Auto 12.1 % (20-40); Mean Corpuscular HGB Conc 29.4 g/dl (31.0-35.0); Mean Corpuscular Hemoglobin 23.1 pg (27.0-33.0); Mean Corpuscular Volume 78.6 fL (80-98); Mean Platelet Volume 9.2 fL (9.4-12.3); Monocytes Absolute Auto 0.9 X10*3/uL (0.1-1.2); Monocytes Percent Auto 8.6 % (2-11); Neutrophils Absolute Auto 7.1 X10*3/uL (2.0-8.3); Neutrophils Percent Auto 72.3 % (45-73); Platelet Count 241 X10*3/uL (160-400); Red Blood Count 4.16 X10*6/uL (4.20-5.50); Red Cell Distribution Width 15.6 % (11.0-16.0); White Blood Count 9.9 X10*3/uL (4.8-10.8)
[2021-03-29 09:23] LABS: INTERNATIONAL NORM RATIO 1.2 (0.9-1.1)
[2021-03-29 09:26] LABS: Partial Thromboplastin Time 49.3 SEC (24.1-38.0)
[2021-03-29 09:43] LABS: Anion Gap 9 (12-20); Blood Urea Nitrogen 12 mg/dL (9-16); Carbon Dioxide 32 mmol/L (22-29); Chloride 101 mmol/L (96-108); Creatinine Clr Calc Pharmacy 86.5; Estimated Glomerular Filt Rate > 60; Glucose Random 99 mg/dL (60-115); Potassium 4.4 mmol/L (3.3-5.1); Sodium 138 mmol/L (135-145)
[2021-03-29] MEDS: 0.9 % Sodium Chloride 1,000 ML 100 ML IVCONT (11:00)
--- NOTE | 2021-03-29 11:03 | P.OP_ITS ---
Operative Note Operative Note Date of Service: 03/29/21 Narrative: Angiogram report from [facility] Preoperative diagnosis: Atherosclerosis of Right lower extremity with ulceration Postoperative diagnosis: Same Procedure: 1. Ultrasound-guided left common femoral access 2. Aortogram with bilateral lower extremity runoff Surgeon:Telly Rubio M.D. Bump Grader Operator:None Anesthesia: Local with moderate conscious sedation for a total of 35 minutes, performed by nj Specimens:none Drains:none Estimated blood loss: Less than 10 ml Indications: 45-year-old female with severe rheumatoid arthritis and history of nonhealing ulcers and cellulitis of the lower extremities presented for follow- up. Noninvasive testing did demonstrate question of inflow disease. She presents for endovascular intervention The patient has signed the informed consent after reviewing risks, complications, benefits, and alternatives previously discussed with the patient in my office. The patient was given the opportunity to ask any additional questions or voice any concerns. All questions were answered to the patient's satisfaction. Procedure in detail: Patient was brought to the angiography suite prior to which a time-out was called for patient identification and site verification. Bilateral groins were prepped and draped in the standard surgical fashion. Under ultrasound guidance left common femoral was punctured with micro puncture needle and wire. Subsequently a precision 4 [place] sheath was then placed. [employer] wire was advanced to the level of the aorta. 4 [place] Flush catheter was brought up and parked at the level of the renal arteries. Aortogram was then undertaken. Catheter was brought down to the level of the iliac bifurcation. Iliacs were subsequently imaged. Catheter was then brought in up and over to the right side SFA. Runoff study was then undertaken. we advanced the catheter down into the SFA to get a formal right lower extremity below-knee imaging. No stenosis was identified. No intervention was indicated. Catheter was removed. Through the 4th [place]an sheath left lower extremity runoff study was undertaken as well. Once again no intervention was indicated. Sheath with was removed. Direct pressure was held for 10 minutes. Interpretation of films: 1. Ultrasound demonstrates appropriate femoral puncture. Image of which was saved. 2. Aortogram demonstrates appropriate caliber aorta. Minimal disease. Appropriate take-off of the renals. 3. Iliac images demonstrate Mild tortuosity with no significant disease 4. right lower extremity demonstrated good flow through the common femoral profundus a an SFA all the way down to the popliteal. Patient had good 3 vessel runoff with anterior tibial and posterior tibial being more dominant. Patient did have a completion foot arch. 5. Left lower extremity study demonstrated good flow through the common femoral and profundus into the SFA. Patient had patent popliteal with good 3 vessel runoff. Once again anterior tibial and posterior tibial were the more dominant vessels. The patient did have a completion arch. Conclusion: 1. Successful diagnostic angiogram. No intervention indicated. patient will resume Eliquis tomorrow. This note is constructed using voice recognition software. While every effort has been made to ensure accuracy, washing machine loader errors may have been included. Thank you for allowing me to participate in the care of your patient. Yours sincerely, Telly Rubio MD, FACS, R.P.V.I.
[2021-03-29] MEDS: Morphine Sulfate 4 MG/ML CARTRIDGE IVPUSH (13:07)
[2021-03-29] MEDS: Acetaminophen 325 MG TABLET 650 MG PO (14:16)
== END 2021-03-29 15:40 | disposition home or self-care (01) ==
PROVIDERS: PCP Family Medicine; Visit Provider Surgery Vascular Surgery
DX: I70.238 Atherosclerosis of native arteries of right leg with ulceration of other part of lower leg (principal); Z79.02 Long term (current) use of antithrombotics/antiplatelets; Z79.899 Other long term (current) drug therapy; Z88.1 Allergy status to other antibiotic agents; M06.9 Rheumatoid arthritis, unspecified; M32.9 Systemic lupus erythematosus, unspecified; F17.210 Nicotine dependence, cigarettes, uncomplicated; Z86.73 Personal history of transient ischemic attack (TIA), and cerebral infarction without residual deficits
CPT/HCPCS: 36247; 36415; 75630; 76937; 80048; 85025; 85610; 85730; 99152; 99153; C1769; C1887; J2250; J2270; J3010; Q9967

== ENCOUNTER → 2021-04-18 13:10 | Outpatient (BNVA) | payer MEDICARE, MEDICAID, SELFPAY | PROVIDERS: PCP Family Medicine; Visit Provider Surgery Vascular Surgery | DX: I73.9 Peripheral vascular disease, unspecified (principal) | CPT/HCPCS: 99212 ==

== ENCOUNTER 2021-08-14 16:32 | Outpatient (REF) | payer MEDICARE, MEDICAID, SELFPAY ==
[2021-08-14 17:38] LABS: MANUAL DIFF FLAG NO
[2021-08-14 17:41] LABS: Basophils Absolute Auto 0.1 X10*3/uL (0.0-0.2); Basophils Percent Auto 0.6 % (0-2); Eosinophils Absolute Auto 0.4 X10*3/uL (0.0-0.4); Eosinophils Percent Auto 5.2 % (0-4); Hematocrit 36.1 % (37-47); Hemoglobin 10.6 g/dl (12.0-16.0); Imm Gran Abs Auto 0.06 X10*3/uL (0.00-0.03); Imm Gran Pct Auto 0.7 % (0.0-0.4); Lymphocytes Absolute Auto 1.4 X10*3/uL (1.2-4.9); Lymphocytes Percent Auto 16.8 % (20-40); Mean Corpuscular HGB Conc 29.4 g/dl (31.0-35.0); Mean Corpuscular Hemoglobin 22.6 pg (27.0-33.0); Mean Corpuscular Volume 77.1 fL (80-98); Mean Platelet Volume 9.5 fL (9.4-12.3); Monocytes Absolute Auto 0.8 X10*3/uL (0.1-1.2); Monocytes Percent Auto 9.9 % (2-11); Neutrophils Absolute Auto 5.4 X10*3/uL (2.0-8.3); Neutrophils Percent Auto 66.8 % (45-73); Platelet Count 225 X10*3/uL (160-400); Red Blood Count 4.68 X10*6/uL (4.20-5.50); Red Cell Distribution Width 15.7 % (11.0-16.0); White Blood Count 8.2 X10*3/uL (4.8-10.8)
[2021-08-14 18:03] LABS: Anion Gap 11 (12-20); Blood Urea Nitrogen 10 mg/dL (9-16); Carbon Dioxide 31 mmol/L (22-29); Chloride 103 mmol/L (96-108); Estimated Glomerular Filt Rate > 60; Potassium 4.5 mmol/L (3.3-5.1); Sodium 140 mmol/L (135-145)
[2021-08-14 18:08] LABS: Appearance Urine HAZY; Color Urine YELLOW; Glucose Urine UA NEG (NEG); Leukocyte Esterase Urine TRACE (NEG); Nitrite Urine NEG (NEG); Urine Blood NEG (NEG); Urine Ketones NEG (NEG); Urine Protein 1+ MG/DL (NEG-TRACE)
[2021-08-14 18:17] LABS: Bacteria Urine TRACE /LPF; RBC Urine 0 /HPF (0); Squamous Epithelial Cell Urine 1+ /LPF
[2021-08-14 18:29] LABS: Creatinine Urine 86.31 mg/dL; Microalbum/Creatinine Ratio Ur 215.5 ug/mg cr; Total Protein Urine Random 40 mg/dL (<12)
== END 2021-08-14 16:33 | disposition home or self-care (01) ==
LOC: HO.LAB 16:32
PROVIDERS: Absent Provider Family Medicine; PCP Family Medicine; Visit Provider Internal Medicine Nephrology
DX: D68.62 Lupus anticoagulant syndrome (principal); E03.9 Hypothyroidism, unspecified
CPT/HCPCS: 36415; 80051; 81001; 82043; 82310; 82565; 84156; 84520; 85025

== ENCOUNTER 2021-09-06 22:38 | Emergency (ER) | payer MEDICARE, MEDICAID, SELFPAY ==
--- NOTE | ~2021-09-06 | US_ITS ---
EXAMINATION: US VENOUS ULTRASOUND WITH DOPPLER LOWER EXTREMITY, RIGHT CLINICAL INFORMATION: Swelling with pain, question DVT COMPARISON: 01/11/2021 TECHNIQUE: Ultrasound of the deep veins is performed from the hip to the calf with compression sonography and color and pulse Doppler assessment. Spectral analysis with color-flow imaging is performed. FINDINGS: There is normal venous compression and respiratory variation and augmented flow. The visualized common femoral vein, superficial femoral vein, profunda femoral vein, popliteal vein, and the trifurcation region shows no evidence of deep venous thrombosis. Mildly complex popliteal fossa cyst measures up to 5.3 cm. Edema is noted throughout the lower leg. If the patient's symptoms persist, followup ultrasound in 5 days 7 days might be of value to exclude proximal propagation from a non-visualized calf vein. US/US venous duplex LE RT IMPRESSION: No DVT demonstrated in the right lower extremity. Mildly complex appearing popliteal fossa cyst.
[2021-09-06 22:47] VITALS: BP 129/81; PULSE 80; RESP 18; TEMP 36.7; O2SAT 94; BMI 45.6
--- NOTE | 2021-09-06 23:09 | ED_ITS ---
HPI - Extremity Problem General Chief complaint: Extremity Problem Stated complaint: ?blood clot Time Seen by Provider: 09/06/21 23:09 Source: patient Mode of arrival: ambulatory Limitations: no limitations History of Present Illness HPI Narrative: Patient with peripheral artery disease CVA lupus arthritis on Eliquis seen her data architect today or noticed some swelling of the right leg and soft tissue swelling of the right forearm which is nontender which is going on for last few weeks off and on ask patient to go to the hospital to check for the DVT patient does have pain in the right knee but no pain in the right calf area no history of trauma Related Data Home Medications Medication Instructions Recorded Confirmed fluticasone propionate 110 1 puff INHALATION BID 08/15/20 10/10/20 mcg/actuation HFA aerosol inhaler lorazepam 1 mg tablet 1 mg PO BID PRN 08/15/20 10/10/20 pravastatin 40 mg tablet 40 mg PO BEDTIME 08/15/20 10/10/20 fluoxetine 40 mg capsule (Prozac) 40 mg PO DAILY 08/20/20 10/10/20 levothyroxine 150 mcg tablet 150 mcg PO DAILY 08/20/20 10/10/20 albuterol sulfate 2.5 mg INHALATION Q6H PRN 08/31/20 10/10/20 albuterol sulfate 90 mcg/actuation 2 puff INHALATION Q4H PRN 08/31/20 10/10/20 aerosol inhaler apixaban 5 mg tablet (Eliquis) 5 mg PO BID 08/31/20 10/10/20 bupropion HCl 100 mg tablet,12 hr 100 mg PO BID 08/31/20 10/10/20 sustained-release rxpxsplaff-rrynbmobupzvx-mwcidkpq 2 tab PO DAILY PRN 08/31/20 10/10/20 50 mg-325 mg-40 mg tablet nortriptyline 50 mg capsule 50 mg PO BEDTIME 08/31/20 10/10/20 oxycodone 15 mg tablet 15 mg PO 5XD 08/31/20 10/10/20 prednisone 5 mg tablet 5 mg PO DAILY 08/31/20 10/10/20 apixaban 2.5 mg tablet (Eliquis) 2.5 mg PO BID 10/10/20 10/10/20 nortriptyline 75 mg capsule 75 mg PO BEDTIME 04/18/21 Previous Rx's Medication Instructions Recorded amoxicillin 875 mg-potassium 1 tab PO BID #10 tab 09/02/20 clavulanate 125 mg tablet ferrous sulfate 325 mg (65 mg 325 mg PO DAILY #30 tab 05/16/21 iron) tablet (FeroSul) folic acid 1 mg tablet 1 mg PO DAILY #30 tab 05/16/21 hydroxychloroquine 200 mg tablet 200 mg PO BID #60 tab 05/16/21 Allergies Allergy/AdvReac Type Severity Reaction Status Date / Time clarithromycin Allergy Intermediate FACIAL Verified 04/18/21 13:25 [CLARITHROMYCIN] SWELLING/REDNESS, facial rash, facial rash, facial rash, facial rash Review of Systems Review of Systems: Yes all other systems are reviewed and are negative [facility] Past Medical History Medical History CVA (cerebral vascular accident) Fibromyalgia Hypothyroid Lupus Proteinuria Rheumatoid arthritis Surgical History History of breast lump/mass excision History of bunionectomy History of cholecystectomy History of excision of mass History of partial hysterectomy Family History Family History Father No problems noted. 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[employer]) Alcohol intake: never Cigarette Packs Per Day: 1 Cigarettes Per Day: 20.0 Years Smoked: 29 Second Hand Smoke Exposure: No Advance Directives: No Advance Directives Information Provided: No Patient : No Current occupational status: disabled Physical Exam Vital Signs: Vital Signs: Last Vital Signs Temp 98.7 F 09/07/21 02:21 Pulse 74 09/07/21 02:21 Resp 16 09/07/21 02:21 BP 118/77 09/07/21 02:21 Pulse Ox 99 09/07/21 02:21 Body Mass Index 45.6 Const: General: comfortable and no acute distress Orientation/consciousness: patient oriented x3 HENMT: Head: Yes normocephalic and Yes atraumatic Eyes: General: appearance normal, both eyes and all related structures Resp: Effort & Inspection: normal respiratory effort Auscultation: clear to auscultation bilaterally Cardio: Palpation: normal PMI Rate: regular rate Rhythm: regular rhythm Heart sounds: S1 normal heart sound present and S2 normal heart sound present GI: Inspection: Yes normal to inspection Palpation (GI): Soft to palpation and nontender Neuro: Other: Residual left-sided deficit General: patient oriented x3 Extrem: Shoulder/upper arm images: 1. Soft tissue swelling right proximal forearm no tenderness good range of movement no ecchymosis Upper/lower leg/hip images: 1. Diffuse right knee tenderness with slight effusion mild swelling of the calf area nontender soft Jesi sign negative MDM - Extremity (Nontraumatic) MDM Narrative Medical decision making narrative: Patient clinically as arthritis of right knee Doppler done which showed Ram cyst no DVT was seen will discharge patient home advised to follow with rheumatology right forearm is soft tissue swelling no sinus symptoms of DVT no further test required Lab Data Attestation: I reviewed the patient's lab results. Result diagrams: 09/07/21 00:02 09/07/21 00:02 Labs: Lab Results 09/07/21 09/07/21 09/07/21 Range/Units 00:02 00:02 00:02 WBC 9.3 (4.8-10.8) X10*3/uL RBC 4.65 (4.20-5.50) X10*6/uL Hgb 10.7 L (12.0-16.0) g/dl Hct 35.6 L (37-47) % MCV 76.6 L (80-98) fL MCH 23.0 L (27.0-33.0) pg MCHC 30.1 L (31.0-35.0) g/dl RDW 15.7 (11.0-16.0) % Plt Count 191 (160-400) X10*3/uL MPV 9.0 L (9.4-12.3) fL Immature Gran % (Auto) 1.1 H (0.0-0.4) % Neut % (Auto) 74.2 H (45-73) % Lymph % (Auto) 13.4 L (20-40) % [place] % (Auto) 8.4 (2-11) % Eos % (Auto) 2.4 (0-4) % Baso % (Auto) 0.5 (0-2) % Lymph # (Auto) 1.2 (1.2-4.9) X10*3/uL [place] # (Auto) 0.8 (0.1-1.2) X10*3/uL Eos # (Auto) 0.2 (0.0-0.4) X10*3/uL Baso # (Auto) 0.1 (0.0-0.2) X10*3/uL Abs Immat Gran (auto) 0.10 H (0.00-0.03) X10*3/uL Absolute Neuts (auto) 6.9 (2.0-8.3) X10*3/uL Absolute Nucleated RBC 0.000 (0.0-0.012) X10*3/uL Nucleated RBC % (auto) 0.0 (0.0-0.2) /100WBC D-Dimer 756 NG/ML Sodium 141 (135-145) mmol/L Potassium 4.3 (3.3-5.1) mmol/L Chloride 103 (96-108) mmol/L Carbon Dioxide 30 H (22-29) mmol/L Anion Gap 12 (12-20) BUN 8 L (9-16) mg/dL Creatinine 0.78 (0.5-1.4) mg/dL Estim Creat Clear Calc 58.7 Estimated GFR > 60 Random Glucose 118 H (60-115) mg/dL Calcium 8.8 (8.4-10.2) mg/dL Discharge Plan Discharge Clinical Impression: Ram's cyst of knee Qualifiers: Laterality: right Qualified Code(s): M71.21 - Synovial cyst of popliteal space [Ram], right knee Patient Disposition: Home, Self-Care Instructions: Bakers Cyst (ED) Additional Instructions: Your swelling and pain in right knee is from arthritis and Ram cyst Follow-up with your data architect No blood clot seen in right leg Swelling of right forearm is soft tissue swelling no blood clot or hematoma noticed Follow-up with your PCP if any concerns Prescriptions: No Action ferrous sulfate [FeroSul] 325 mg (65 mg iron) tablet 325 mg PO DAILY Qty: 30 RF: 3 folic acid 1 mg tablet 1 mg PO DAILY Qty: 30 RF: 3 hydroxychloroquine 200 mg tablet 200 mg PO BID Qty: 60 RF: 3 albuterol sulfate 2.5 mg /3 mL (0.083 %) solution for nebulization 2.5 mg inhalation Q6H PRN (Reason: Shortness Of Breath Or Wheezing) RF: 0 prednisone 5 mg tablet 5 mg PO DAILY RF: 0 bupropion HCl 100 mg tablet sustained-release 12 hr 100 mg PO BID RF: 0 kmvouxhsog-dxeycvshwhacv-xgna 50-325-40 mg tablet 2 tab PO DAILY PRN (Reason: headache) RF: 0 oxycodone 15 mg tablet 15 mg PO 5XD RF: 0 albuterol sulfate 90 mcg/actuation HFA aerosol inhaler 2 puff inhalation Q4H PRN (Reason: Shortness Of Breath Or Wheezing) RF: 0 nortriptyline 50 mg capsule 50 mg PO BEDTIME RF: 0 Eliquis 5 mg tablet 5 mg PO BID RF: 0 amoxicillin-pot clavulanate 875-125 mg tablet 1 tab PO BID Qty: 10 RF: 0 Eliquis 2.5 mg tablet 2.5 mg PO BID RF: 0 levothyroxine 150 mcg tablet 150 mcg PO DAILY RF: 0 fluoxetine [Prozac] 40 mg capsule 40 mg PO DAILY RF: 0 lorazepam 1 mg tablet 1 mg PO BID PRN (Reason: Anxiety) RF: 0 fluticasone propionate 110 mcg/actuation HFA aerosol inhaler 1 puff inhalation BID RF: 0 pravastatin 40 mg tablet 40 mg PO BEDTIME RF: 0
[2021-09-06 23:55] VITALS: BP 129/72; PULSE 89; RESP 16; TEMP 37.1; O2SAT 99
[2021-09-07 00:06] LABS: MANUAL DIFF FLAG NO
[2021-09-07 00:09] LABS: Basophils Absolute Auto 0.1 X10*3/uL (0.0-0.2); Basophils Percent Auto 0.5 % (0-2); Eosinophils Absolute Auto 0.2 X10*3/uL (0.0-0.4); Eosinophils Percent Auto 2.4 % (0-4); Hematocrit 35.6 % (37-47); Hemoglobin 10.7 g/dl (12.0-16.0); Imm Gran Pct Auto 1.1 % (0.0-0.4); Lymphocytes Absolute Auto 1.2 X10*3/uL (1.2-4.9); Lymphocytes Percent Auto 13.4 % (20-40); Mean Corpuscular HGB Conc 30.1 g/dl (31.0-35.0); Mean Corpuscular Volume 76.6 fL (80-98); Monocytes Absolute Auto 0.8 X10*3/uL (0.1-1.2); Monocytes Percent Auto 8.4 % (2-11); Neutrophils Absolute Auto 6.9 X10*3/uL (2.0-8.3); Neutrophils Percent Auto 74.2 % (45-73); Platelet Count 191 X10*3/uL (160-400); Red Blood Count 4.65 X10*6/uL (4.20-5.50); Red Cell Distribution Width 15.7 % (11.0-16.0); White Blood Count 9.3 X10*3/uL (4.8-10.8)
[2021-09-07 00:23] LABS: D Dimer 756 NG/ML
[2021-09-07 00:28] LABS: Anion Gap 12 (12-20); Blood Urea Nitrogen 8 mg/dL (9-16); Calcium 8.8 mg/dL (8.4-10.2); Carbon Dioxide 30 mmol/L (22-29); Chloride 103 mmol/L (96-108); Creatinine Clr Calc Pharmacy 58.7; Estimated Glomerular Filt Rate > 60; Glucose Random 118 mg/dL (60-115); Potassium 4.3 mmol/L (3.3-5.1); Sodium 141 mmol/L (135-145)
--- NOTE | 2021-09-07 01:55 | PC.NURSE ---
PATIENT RETURNING FROM ULTRASOUND, AWAITING RESULTS
[2021-09-07 02:21] VITALS: BP 118/77; PULSE 74; RESP 16; TEMP 37.1; O2SAT 99
== END 2021-09-07 02:32 | disposition home or self-care (01) ==
PROVIDERS: Emergency Provider Internal Medicine; PCP Family Medicine
DX: M71.21 Synovial cyst of popliteal space [Baker], right knee (principal); M79.604 Pain in right leg; I73.9 Peripheral vascular disease, unspecified; Z86.73 Personal history of transient ischemic attack (TIA), and cerebral infarction without residual deficits; Z79.01 Long term (current) use of anticoagulants
CPT/HCPCS: 36415; 80048; 85025; 85379; 93971; 99284

== ENCOUNTER 2021-09-19 15:42 | Outpatient (REF) | payer MEDICARE, MEDICAID, SELFPAY ==
--- NOTE | ~2021-09-19 | CT_ITS ---
EXAMINATION: CT RIGHT ELBOW CLINICAL INFORMATION: Swelling. Rule out hematoma. COMPARISON: No similar priors. TECHNIQUE: CT images of the right elbow were obtained without intravenous contrast. Axial, coronal and sagittal planes were obtained. FINDINGS: Bony findings: No evidence of acute fractures or malalignment. No aggressive cortical disruption or erosive changes. There are a few tiny bony fragments adjacent to the olecranon process (image 26 of series 8) which are likely degenerative in nature. Soft tissues: There is a large, slightly heterogeneous and predominantly fluid attenuating collection within the superficial soft tissues of the posterior elbow likely related with olecranon bursitis measuring up to 13 cm in maximum craniocaudal dimensions and 3.5 cm in maximum axial thickness. The musculature appears unremarkable. No unexpected radiopaque foreign bodies or subcutaneous gas. No joint effusions. CT/CT elbow RT wo con IMPRESSION: Findings are more compatible with olecranon bursitis. Superinfection is difficult to exclude and clinical correlation is needed. No evidence of acute osseous abnormalities.
--- NOTE | ~2021-09-19 | CT_ITS ---
EXAMINATION: CT KNEE WITHOUT CONTRAST, RIGHT CLINICAL INFORMATION: Swelling. Assess for hematoma. COMPARISON: None TECHNIQUE: Axial CT of the right knee is performed without intravenous or intracapsular contrast. Additional 2-D coronal and sagittal reformatted images are generated on the CT workstation and uploaded to PACS This CT examination was performed using dose optimization techniques as appropriate, variously including the following: *Automated exposure control *Adjustment of mA and/or kV according to patient size (this includes techniques or standardized protocols for targeted exams where dose is matched to indication/reason for exam; i.e. extremities or head) *Use of iterative reconstruction technique DLP: 147 mGy-cm FINDINGS: There is moderate to large suprapatellar effusion. Fluid attenuation is 11-17 HU, within water attenuation. There is no high attenuation to suggest acute hemorrhage. The musculature is unremarkable. There is no visible fascial herniation. There is no fracture or dislocation or destructive process. Degenerative changes involve the lateral knee joint compartment with mild joint narrowing and mild subchondral sclerosis. There are small osteophytes from the lateral femoral condyle and lateral tibial plateau. No definite erosive change. No chondrocalcinosis. The patella shows no lateralization or tilting. CT/CT knee RT wo con IMPRESSION: 1. Moderate to large suprapatellar effusion of water attenuation. 2. Degenerative changes lateral knee joint compartment. 3. No fracture, dislocation, or destructive process.
== END 2021-09-19 15:43 | disposition home or self-care (01) ==
LOC: HO.CT 15:42
PROVIDERS: Visit Provider Internal Medicine
DX: M25.561 Pain in right knee (principal); M25.421 Effusion, right elbow
CPT/HCPCS: 73200; 73700

== ENCOUNTER 2021-09-22 16:33 | Outpatient (REF) | payer MEDICARE, MEDICAID, SELFPAY ==
--- NOTE | ~2021-09-22 | MR_ITS ---
EXAMINATION: MR CERVICAL SPINE WITHOUT CONTRAST CLINICAL INFORMATION: Neck pain and hyperreflexia. COMPARISON: None TECHNIQUE: MRI of the cervical spine was obtained using routine sequences without contrast. Limited study with motion artifacts. FINDINGS: VERTEBRAL BODIES AND PARASPINAL SOFT TISSUES: There is a significant reversal of the normal cervical lordosis and grade 2 anterolisthesis of C3 over C4 with a 7 mm slippage. Moderate loss of disc height with endplate spurring noted at the C4-C5 level. There is severe disc space narrowing with chronic fatty marrow endplate changes at the C5-C6 and C6-C7 levels. The paraspinal soft tissues are unremarkable. The vertebral artery flow voids are maintained. The imaged lung apices are grossly clear. CERVICOMEDULLARY JUNCTION AND VISUALIZED POSTERIOR FOSSA: The craniovertebral junction and imaged portions of the brain parenchyma demonstrate no acute abnormality. No cord signal change or syrinx is visible, despite motion artifacts. SPINAL LEVELS: C2-C3: Minimal annular bulge with ankylosis of the left facet joint. No central canal stenosis or significant foraminal encroachment. C3-C4: Anterolisthesis and unroofed disc protrusion with endplate spurring and significant left-sided facet arthropathy. Findings result in severe central canal stenosis and cord compression without intramedullary signal change. Severe bilateral foraminal narrowing. C4-C5: Small central disc protrusion and mild disc-osteophyte complex without central canal stenosis. Moderate right foraminal narrowing due to uncovertebral joint spurring. C5-C6: Mild retrosubluxation and disc-osteophyte complex with ventral thecal sac and cord distortion. No significant central canal stenosis. Endplate spurring with moderate to severe foraminal encroachment. C6-C7: Mild retrosubluxation and broad-based disc-osteophyte complex with severe right foraminal encroachment. No central canal stenosis. Small right paracentral disc protrusion. C7-T1: Severe right-sided facet arthropathy with significant right foraminal encroachment. No disc pathology or central canal stenosis. Hypertrophic facet arthropathy with moderate left foraminal encroachment as well. MR/MR cervical spine wo con IMPRESSION: Extensive multilevel cervical spondylosis and reversal of the cervical lordosis. Severe central canal stenosis with a grade 2 anterolisthesis and unroofed disc protrusion at the C3-C4 level with severe foraminal narrowing and advanced left-sided facet arthropathy. Significant degenerative endplate changes and disc space narrowing at the C5-C6 and C6-C7 levels without central canal stenosis. Moderate to severe foraminal narrowing as described. Small central disc protrusion and moderate right foraminal narrowing at C4-C5 level. Severe right facet arthropathy and right foraminal narrowing at the C7-T1 level.
== END 2021-09-22 16:34 | disposition home or self-care (01) ==
LOC: HO.MRI 16:33
PROVIDERS: Visit Provider Psychiatry & Neurology Neurology
DX: Z13.89 Encounter for screening for other disorder (principal)
CPT/HCPCS: 72141

== ENCOUNTER 2021-09-22 17:41 | Emergency (ER) | payer MEDICARE, MEDICAID, SELFPAY ==
--- NOTE | ~2021-09-22 | XR_ITS ---
EXAMINATION: XR KNEE, RIGHT CLINICAL INFORMATION: Pain after fall one month ago. COMPARISON: CT right knee dated from 09/19/2021. TECHNIQUE: Four views of the right knee. FINDINGS: No acute fractures or malalignment. Mild joint space narrowing, subchondral sclerosis and osteophytes in the medial compartment reflecting degenerative osteoarthritis. No erosions or chondrocalcinosis. Small joint effusion. Diffuse soft tissue edema. XR/XR knee RT 4V IMPRESSION: No acute fractures or malalignment. Small joint effusion. Diffuse soft tissue edema of uncertain etiology, correlate clinically.
[2021-09-22 18:17] VITALS: BP 124/40; PULSE 84; RESP 18; O2SAT 97; BMI 29.5
--- NOTE | 2021-09-22 21:36 | ED_ITS ---
HPI - General Adult General Chief complaint: General Medical Stated complaint: fluid in arm? Time Seen by Provider: 09/22/21 21:33 Source: patient Mode of arrival: ambulatory Limitations: no limitations History of Present Illness HPI narrative: 46-year-old female past medical history significant for rheumatoid arthritis, lupus, fibromyalgia presents to the emergency department with complaints of fluid collection to her right forearm x2 months and right- sided knee pain x1 month progressively worsening. Patient states that she has gotten a CT scan of her right forearm, and states that there is fluid in there, she states that her primary care provider, as well as Dr. Rubio have begged her to come into the emergency department to get this drained, she states she decided to come in today, because she noted that the fluid collection has gotten significantly larger. She states that her right knee has been bothering her for the past month, she states it is worse with ambulation, better at rest, she mentions she had a fall onto her right knee about a month ago, and since then has been progressively worsening. She states she also got a CT of her knee. Patient denies fevers, chills, skin changes, nausea, vomiting, abdominal pain, headaches, dizziness, chest pain, shortness of breath, weakness Onset (ago): month(s) (2) Location: right (right forearm/elbow and right knee ) Radiation: non-radiation Quality: constant Pain Consistency: constant (Constant right knee pain ) and other (no pain to right forearm and elbow ) Relieving factors: immobilization (imobilization of knee ) Exacerbating factors: movement (of knee) Associated symptoms: denies other symptoms Treatments prior to arrival: none Related Data Home Medications Medication Instructions Recorded Confirmed fluticasone propionate 110 1 puff INHALATION BID 08/15/20 10/10/20 mcg/actuation HFA aerosol inhaler lorazepam 1 mg tablet 1 mg PO BID PRN 08/15/20 10/10/20 pravastatin 40 mg tablet 40 mg PO BEDTIME 08/15/20 10/10/20 fluoxetine 40 mg capsule (Prozac) 40 mg PO DAILY 08/20/20 10/10/20 levothyroxine 150 mcg tablet 150 mcg PO DAILY 08/20/20 10/10/20 albuterol sulfate 2.5 mg INHALATION Q6H PRN 08/31/20 10/10/20 albuterol sulfate 90 mcg/actuation 2 puff INHALATION Q4H PRN 08/31/20 10/10/20 aerosol inhaler apixaban 5 mg tablet (Eliquis) 5 mg PO BID 08/31/20 10/10/20 bupropion HCl 100 mg tablet,12 hr 100 mg PO BID 08/31/20 10/10/20 sustained-release itjygwvwls-fpfybmpqmoyhq-tbmtdfdb 2 tab PO DAILY PRN 08/31/20 10/10/20 50 mg-325 mg-40 mg tablet nortriptyline 50 mg capsule 50 mg PO BEDTIME 08/31/20 10/10/20 oxycodone 15 mg tablet 15 mg PO 5XD 08/31/20 10/10/20 prednisone 5 mg tablet 5 mg PO DAILY 08/31/20 10/10/20 apixaban 2.5 mg tablet (Eliquis) 2.5 mg PO BID 10/10/20 10/10/20 nortriptyline 75 mg capsule 75 mg PO BEDTIME 04/18/21 Previous Rx's Medication Instructions Recorded amoxicillin 875 mg-potassium 1 tab PO BID #10 tab 09/02/20 clavulanate 125 mg tablet ferrous sulfate 325 mg (65 mg 325 mg PO DAILY #30 tab 05/16/21 iron) tablet (FeroSul) folic acid 1 mg tablet 1 mg PO DAILY #30 tab 05/16/21 hydroxychloroquine 200 mg tablet 200 mg PO BID #60 tab 05/16/21 doxycycline hyclate 100 mg capsule 100 mg PO BID 5 Days #10 cap 09/22/21 Allergies Allergy/AdvReac Type Severity Reaction Status Date / Time clarithromycin Allergy Intermediate FACIAL Verified 04/18/21 13:25 [CLARITHROMYCIN] SWELLING/REDNESS, facial rash, facial rash, facial rash, facial rash Review of Systems Review of Systems: Constitutional : No Weight loss, No Fever, No Chills, No Fatigue, No Malaise ENT/Mouth : No sore throat, No Rhinorrhea Eyes: No Eye Pain, No Swelling, No Redness Cardiovascular : No Chest Pain, No SOB, No Dyspnea on Exertion, No Orthopnea, No Edema, No Palpitations Respiratory : No Cough, No Sputum, No Wheezing Gastrointestinal : No Nausea, No Vomiting, No Diarrhea, No Constipation, No abdominal Pain, No Hematochezia, No Melena Genitourinary : No Dysuria, No Urinary Frequency, No Hematuria, Musculoskeletal : + joint pain, No Myalgias, + Joint Swelling Skin : No Skin Lesions, No rash, + Soft tissue swelling Neuro : No Weakness, No Numbness, No Dizziness, No Headache All other systems reviewed and are negative [facility] Past Medical History Attestation statement: The following information was validated with the patient. Source: old records reviewed and nursing notes reviewed Medical History CVA (cerebral vascular accident) Fibromyalgia Hypothyroid Lupus Proteinuria Rheumatoid arthritis Surgical History History of breast lump/mass excision History of bunionectomy History of cholecystectomy History of excision of mass History of partial hysterectomy Family History Family History Father No problems noted. Mother Lung cancer Social History Social History Household Members: Children Housing: House Do you presently have visiting nurse or other home services: Yes ([facility]) Alcohol intake: never Cigarette Packs Per Day: 1 Cigarettes Per Day: 20.0 Years Smoked: 29 Second Hand Smoke Exposure: No Advance Directives: No Advance Directives Information Provided: Yes Patient : No Current occupational status: disabled Physical Exam Vital Signs: Vital Signs: Last Vital Signs Pulse 84 09/22/21 18:17 Resp 18 09/22/21 18:17 BP 124/40 L 09/22/21 18:17 Pulse Ox 97 09/22/21 18:17 Body Mass Index 29.5 Vital signs are stable Appearance: Alert.? Oriented X3.? No acute distress.? Eyes: Pupils equal, round and reactive to light.? ENT: Pharynx normal.? Neck: Normal inspection.? Neck supple.? CVS: Normal heart rate and rhythm.? Pulses normal.? Respiratory: No respiratory distress.? Breath sounds normal.? Abdomen: Soft and nontender.? Skin: Skin warm and dry.? Normal skin color.? Normal skin turgor.? Extremities: No lower extremity edema.? No calf ttp + Right Knee: tenderness to palpation, slight effusion, full ROM, no overlying skin changes or calor. Left knee normal. Negative louis sign bilateraly + Soft tissue swelling, and possible fluid collection to right proximal elbow/forearm, no tenderness, no overlying skin changes or calor and good ROM to right side. No abnormalities noted to left elbow/forearm. Neuro: Oriented X 3.? No motor deficit.? No sensory deficit. Ambulates with an assistive device, no ataxia Course Reevaluation(s) Reevaluation #1: Acute aspiration of the right elbow was done at the bedside with supervision by Dr. Ku, without complications. Used 2% lidocaine with epinephrine. Patient tolerated the procedure well, 30 cc of serosanguineous thin liquid was obtained, and sent for analysis. The area was cleaned, and procedure was done using sterile technique. After the procedure a dressing was applied to the area. Patient was educated on proper wound care. Patient will be started on postprocedure prophylactic antibiotics at discharge. Time: 23:10 Reevaluation #2: Xray of [facility] knee shows no acute fractures or malalignment. Small joint effusion is noted. This is likely secondary to osteoarthritis. An [place] wrap will be applied to the right knee and right elbow. Labs show no acute infection, baseline anemia unchanged from previously, no acute electrolyte abnormalities. Alk-phos is noted to be slightly elevated, however, this appears to be patient's baseline. Synovial fluid analysis results not concerning for infection. Uric acid is pending, and patient will be called if laboratory study is elevated. Patient is encouraged to follow-up with her primary care provider, and her casting operator helper. Patient is safe for discharge home, with prompt follow-up. Patient understands plan, has been educated on her diagnosis, has been given strict return precautions (fevers, chills, pain, skin changes, warmth to the area), and she has no questions. Time: 23:11 Procedures Joint Aspiration/Injection Joint Asp./Inject. 1: Time Out Performed: Yes Side of body: right Joint Aspirated: elbow Ultrasound Guidance: No Skin Prep: sterile prep and drape Local Anesthetic: lidocaine 2% Amount of anesthesia used (mL): 5 Needle Size Used: 18G Fluid Obtained: clear (Serosanguineous) Total fluid obtained (mL): 30 Patient Tolerated Procedure: well Complications: none Medical Decision Making MDM Narrative Medical decision making narrative: 9:30pm 46 yo female pmhx of lupus, RA presents to the emergency department with fluid collection to right elbow/ forearm X2 months progressively worsening and right knee pain X1 month s/p fall. Patient states she has been seen multiple times for this by her primary care provider who has encouraged her to report to the emergency department, to seek treatment. She states she was also seen in the ED for knee pain last month. She denies fevers, chills, shortness of breath, chest pain, skin changes, fatigue, nausea, vomiting, paresthesias, tingling. On physical examination Right Knee: tenderness to palpation, slight effusion, full ROM, no overlying skin changes or calor. Left knee normal. Negative Louis sign bilaterally + Soft tissue swelling, and possible fluid collection to right proximal elbow/forearm, no tenderness, no overlying skin changes and good ROM to right side. No abnormalities noted to left elbow/forearm. Lungs are clear to auscultation bilaterally. S1-S2 appreciated free of murmurs. Abdomen soft nontender nondistended. Patient's vital signs are stable, her blood pressure is noted to be 124/40, however when doing chart review of previous visits, it appears as though patient's blood pressure is always on the lower side. Based off these physical exam findings, a joint aspiration of the right elbow will be done, fluid will be sent for analysis. The right knee does not have a large effusion, for this reason joint aspiration will not be done. Plan at this time is to obtain basic labs to rule out infection, x-ray of the knee due to recent trauma, do a bedside joint aspiration of right elbow and send cell count, uric acid, gram stain and culture of the synovial fluid. To note on September 19, [address] of the right elbow done which showed findings consistent with olecranon bursitis. For this reason another CT will not be done. On September 19, 2021 the patient also got a CT of the right knee which showed a moderate to large suprapatellar effusion of water attenuation, degenerative changes, no fracture, dislocations or destructive processes. To the emergency department with right knee pain on September 07, 2021 ultrasound duplex was done on the right lower extremity to rule out DVT, which is negative. At this time DVT is unlikely, negative Homans sign, patient does not complain of shortness of breath, patient's vital signs are stable she is not tachycardic. Lab Data Result diagrams: 09/22/21 22:47 09/22/21 22:47 Labs: Lab Results 09/22/21 09/22/21 09/22/21 Range/Units 22:36 22:47 22:47 WBC 8.5 (4.8-10.8) X10*3/uL RBC 4.69 (4.20-5.50) X10*6/uL Hgb 10.8 L (12.0-16.0) g/dl Hct 36.7 L (37.0-47.0) % MCV 78.3 L (80.0-98.0) fL MCH 23.0 L (27.0-33.0) pg MCHC 29.4 L (31.0-35.0) g/dl RDW 15.3 (11.0-16.0) % Plt Count 193 (160-400) X10*3/uL MPV 9.0 L (9.4-12.3) fL Immature Gran % (Auto) 0.7 H (0.0-0.4) % Neut % (Auto) 65.3 (45-73) % Lymph % (Auto) 17.7 L (20-40) % [place] % (Auto) 10.2 (2-11) % Eos % (Auto) 5.5 H (0-4) % Baso % (Auto) 0.6 (0-2) % Lymph # (Auto) 1.5 (1.2-4.9) X10*3/uL [place] # (Auto) 0.9 (0.1-1.2) X10*3/uL Eos # (Auto) 0.5 H (0.0-0.4) X10*3/uL Baso # (Auto) 0.1 (0.0-0.2) X10*3/uL Abs Immat Gran (auto) 0.06 H (0.00-0.03) X10*3/uL Absolute Neuts (auto) 5.6 (2.0-8.3) x10*3/uL Absolute Nucleated RBC 0.000 (0.0-0.012) X10*3/uL Nucleated RBC % (auto) 0.0 (0.0-0.2) /100WBC Sodium 139 (135-145) mmol/L Potassium 4.2 (3.3-5.1) mmol/L Chloride 101 (96-108) mmol/L Carbon Dioxide 32 H (22-29) mmol/L Anion Gap 10 L (12-20) BUN 10 (9-16) mg/dL Creatinine 0.78 (0.5-1.4) mg/dL Estim Creat Clear Calc 82.8 Estimated GFR > 60 Random Glucose 86 (60-115) mg/dL Calcium 8.6 (8.4-10.2) mg/dL Total Bilirubin 0.2 (0.0-1.0) mg/dL AST 15 (5-31) U/L ALT 12 (0-31) U/L Alkaline Phosphatase 143 H D (39-117) U/L Total Protein 6.1 L (6.5-8.0) g/dL Albumin 3.5 (3.5-5.0) g/dL Synovial Source Right elbow Synovial WBC 0.280 X10*3/uL Synovial RBC 0.015 X10*6/uL Imaging Data X-ray of right knee: Attestation: I personally reviewed and interpreted this imaging study as follows: Radiologist's impression: XR/XR knee RT 4V IMPRESSION: No acute fractures or malalignment. Small joint effusion. Diffuse soft tissue edema of uncertain etiology, correlate clinically. Critical Care Time Critical Care Time Critical Care Time: No Discharge Plan Discharge Clinical Impression: Olecranon bursitis of right elbow Bursitis, prepatellar Qualifiers: Laterality: right Qualified Code(s): M70.41 - Prepatellar bursitis, right knee Osteoarthritis Qualifiers: Osteoarthritis location: multiple joints Osteoarthritis type: unspecified Qualified Code(s): M15.9 - Polyosteoarthritis, unspecified Patient Disposition: Home, Self-Care Instructions: Elbow Bursitis (ED), Knee Bursitis (ED) Additional Instructions: Take your medications as prescribed. You were prescribed antibiotics today, it is important that you take your medication to their entirety, do not skip any doses, do not finish them early. Follow-up with your primary care provider this week and with your casting operator helper Return to the emergency department with new or worsening symptoms. Such as fevers, chills, redness to the area, warmth over the area. In case of emergency call 911 Prescriptions: New doxycycline hyclate 100 mg capsule 100 mg PO BID 5 Days Qty: 10 RF: 0 No Action ferrous sulfate [FeroSul] 325 mg (65 mg iron) tablet 325 mg PO DAILY Qty: 30 RF: 3 folic acid 1 mg tablet 1 mg PO DAILY Qty: 30 RF: 3 hydroxychloroquine 200 mg tablet 200 mg PO BID Qty: 60 RF: 3 albuterol sulfate 2.5 mg /3 mL (0.083 %) solution for nebulization 2.5 mg inhalation Q6H PRN (Reason: Shortness Of Breath Or Wheezing) RF: 0 prednisone 5 mg tablet 5 mg PO DAILY RF: 0 bupropion HCl 100 mg tablet sustained-release 12 hr 100 mg PO BID RF: 0 gtactoffxa-qjuisqkivhzou-nfpv 50-325-40 mg tablet 2 tab PO DAILY PRN (Reason: headache) RF: 0 oxycodone 15 mg tablet 15 mg PO 5XD RF: 0 albuterol sulfate 90 mcg/actuation HFA aerosol inhaler 2 puff inhalation Q4H PRN (Reason: Shortness Of Breath Or Wheezing) RF: 0 nortriptyline 50 mg capsule 50 mg PO BEDTIME RF: 0 Eliquis 5 mg tablet 5 mg PO BID RF: 0 amoxicillin-pot clavulanate 875-125 mg tablet 1 tab PO BID Qty: 10 RF: 0 Eliquis 2.5 mg tablet 2.5 mg PO BID RF: 0 levothyroxine 150 mcg tablet 150 mcg PO DAILY RF: 0 fluoxetine [Prozac] 40 mg capsule 40 mg PO DAILY RF: 0 lorazepam 1 mg tablet 1 mg PO BID PRN (Reason: Anxiety) RF: 0 fluticasone propionate 110 mcg/actuation HFA aerosol inhaler 1 puff inhalation BID RF: 0 pravastatin 40 mg tablet 40 mg PO BEDTIME RF: 0 Referrals: Barbie Dunn MD [Primary Care Provider] - 3 days
[2021-09-22] MEDS: Lidocaine HCl 2%/Epi 1:100,000 20 ML VIAL 5 ML INFILTRATI (22:12)
--- NOTE | 2021-09-22 22:49 | PC.NURSE ---
FLUID FROM RIGHT ELBOW OBTAINED TO LAB FOR EVAL. LABS DRAWN BY STRAIGHT STICK TO LAB. PT TOLERATED PROCEDURE WELL AND DENIES PAIN AT THIS TIME. PT AWAITING FOR PENDING LAB AND WILL CONTINUE TO MONITOR PT.
[2021-09-22 22:52] LABS: MANUAL DIFF FLAG NO
[2021-09-22 22:53] LABS: Basophils Absolute Auto 0.1 X10*3/uL (0.0-0.2); Basophils Percent Auto 0.6 % (0-2); Eosinophils Absolute Auto 0.5 X10*3/uL (0.0-0.4); Eosinophils Percent Auto 5.5 % (0-4); Hematocrit 36.7 % (37.0-47.0); Hemoglobin 10.8 g/dl (12.0-16.0); Imm Gran Abs Auto 0.06 X10*3/uL (0.00-0.03); Imm Gran Pct Auto 0.7 % (0.0-0.4); Lymphocytes Absolute Auto 1.5 X10*3/uL (1.2-4.9); Lymphocytes Percent Auto 17.7 % (20-40); Mean Corpuscular HGB Conc 29.4 g/dl (31.0-35.0); Mean Corpuscular Volume 78.3 fL (80.0-98.0); Monocytes Absolute Auto 0.9 X10*3/uL (0.1-1.2); Monocytes Percent Auto 10.2 % (2-11); Neutrophils Absolute Auto 5.6 x10*3/uL (2.0-8.3); Neutrophils Percent Auto 65.3 % (45-73); Platelet Count 193 X10*3/uL (160-400); Red Blood Count 4.69 X10*6/uL (4.20-5.50); Red Cell Distribution Width 15.3 % (11.0-16.0); White Blood Count 8.5 X10*3/uL (4.8-10.8)
[2021-09-22 23:00] LABS: MN% 84.8 %; PMN% 15.2 %; RBC Synovial Fluid 0.015 X10*6/uL
[2021-09-22 23:22] LABS: Alanine Aminotransferase 12 U/L (0-31); Albumin Level 3.5 g/dL (3.5-5.0); Alkaline Phosphatase 143 U/L (39-117); Anion Gap 10 (12-20); Aspartate Amino Transferase 15 U/L (5-31); Bilirubin Total 0.2 mg/dL (0.0-1.0); Blood Urea Nitrogen 10 mg/dL (9-16); Calcium 8.6 mg/dL (8.4-10.2); Carbon Dioxide 32 mmol/L (22-29); Chloride 101 mmol/L (96-108); Creatinine Clr Calc Pharmacy 82.8; Estimated Glomerular Filt Rate > 60; Glucose Random 86 mg/dL (60-115); Potassium 4.2 mmol/L (3.3-5.1); Sodium 139 mmol/L (135-145); Total Protein 6.1 g/dL (6.5-8.0)
--- NOTE | 2021-09-22 23:36 | PC.NURSE ---
pt awaiting for dispo instructions.
--- NOTE | 2021-09-22 23:54 | PC.NURSE ---
CHRIS WRAP TO RIGHT ELBOW AND RIGHT KNEE. PT GIVEN WRITTEN SCRIPTS FOR ANTIBIOTICS. PA IN ROOM TO EXPLAIN D/C INSTRUCTIONS.
[2021-09-23 00:19] LABS: Monocytes Synovial Fluid 90 %; Neutrophils Synovial Fluid 10 %
[2021-09-23 00:20] LABS: BF Shift QC OK YES; Man Diluent Bkgrd OK YES
[2021-09-23 07:40] LABS: Uric Acid Synovial Fluid 5
== END 2021-09-23 00:08 | disposition home or self-care (01) ==
PROVIDERS: Physician Assistant; Emergency Provider Emergency Medicine Emergency Medical Services; PCP Family Medicine
DX: M70.21 Olecranon bursitis, right elbow (principal); Y93.9 Activity, unspecified; M70.41 Prepatellar bursitis, right knee; M25.421 Effusion, right elbow; M15.9 Polyosteoarthritis, unspecified
CPT/HCPCS: 20605; 36415; 72141; 73564; 80053; 84560; 85025; 87071; 87073; 87205; 89051; 99283; 99285

== ENCOUNTER 2021-10-21 05:43 | Observation (INO) | payer MEDICARE, MEDICAID, SELFPAY ==
--- NOTE | ~2021-10-21 | US_ITS ---
EXAMINATION: US VENOUS ULTRASOUND WITH DOPPLER LOWER EXTREMITY, RIGHT CLINICAL INFORMATION: Swelling COMPARISON: None TECHNIQUE: Ultrasound of the deep veins is performed from the hip to the calf with compression sonography and color and pulse Doppler assessment. Spectral analysis with color-flow imaging is performed. FINDINGS: There is normal venous compression and respiratory variation and augmented flow. The visualized common femoral vein, superficial femoral vein, profunda femoral vein, popliteal vein, and the trifurcation region shows no evidence of deep venous thrombosis. There is no significant popliteal fossa cyst. 6 there is diffuse subcutaneous edema. There is a moderate suprapatellar joint effusion as well as a complex fluid collection in the popliteal fossa measuring 5.3 x 1.5 x 3.7 cm. US/US venous duplex LE RT IMPRESSION: No DVT demonstrated in the right lower extremity. Suprapatellar joint effusion. 5.3 cm Ram's cyst.
[2021-10-21 06:03] VITALS: BP 146/84; PULSE 86; TEMP 36.6; O2SAT 97; BMI 27.4
--- NOTE | 2021-10-21 07:16 | ED.EXTPRO ---
HPI - Extremity Problem General Chief complaint: Extremity Problem Stated complaint: cellulitis ?? Time Seen by Provider: 10/21/21 06:15 Source: patient Limitations: no limitations History of Present Illness HPI Narrative: This is a very nice 46 years old female presented to the emergency department with the redness is welling of the calf x1 week. 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 and now she is complaining of redness the pain is well in the rt calf X 1 Week MD Complaint: extremity pain Onset (ago): week(s) (1) Pain Consistency: constant Location: right and lower extremity Quality: aching Radiation: none Relieving factors: nothing Exacerbating factors: nothing Associated symptoms: denies other symptoms Related Data Home Medications Medication Instructions Recorded Confirmed lorazepam 1 mg tablet 1 mg PO BID PRN 08/15/20 10/21/21 pravastatin 40 mg tablet 40 mg PO BEDTIME 08/15/20 10/21/21 fluoxetine 40 mg capsule (Prozac) 40 mg PO DAILY 08/20/20 10/21/21 albuterol sulfate 2.5 mg INHALATION Q6H PRN 08/31/20 10/21/21 albuterol sulfate 90 mcg/actuation 2 puff INHALATION Q4H PRN 08/31/20 10/21/21 aerosol inhaler bupropion HCl 100 mg tablet,12 hr 100 mg PO BID 08/31/20 10/21/21 sustained-release aobahcjhvz-jmayzvingpqhr-mwyrdxcx 2 tab PO DAILY PRN 08/31/20 10/21/21 50 mg-325 mg-40 mg tablet prednisone 5 mg tablet 5 mg PO DAILY 08/31/20 10/21/21 nortriptyline 75 mg capsule 75 mg PO BEDTIME 04/18/21 10/21/21 apixaban 5 mg tablet 5 mg PO BID 10/21/21 10/21/21 fluticasone propionate 220 1 puff INHALATION BID 10/21/21 10/21/21 mcg/actuation HFA aerosol inhaler (Flovent HFA) levothyroxine 175 mcg tablet 175 mcg PO DAILY 10/21/21 10/21/21 loratadine 10 mg tablet 10 mg PO DAILY 10/21/21 10/21/21 multivitamin 1 tab PO DAILY 10/21/21 10/21/21 sulfasalazine 500 mg tablet 0.5 g PO BID 10/21/21 10/21/21 tramadol 50 mg tablet 50 mg PO Q8H 10/21/21 10/21/21 Previous Rx's Medication Instructions Recorded ferrous sulfate 325 mg (65 mg 325 mg PO DAILY #30 tab 05/16/21 iron) tablet (FeroSul) folic acid 1 mg tablet 1 mg PO DAILY #30 tab 05/16/21 hydroxychloroquine 200 mg tablet 200 mg PO BID #60 tab 05/16/21 Allergies Allergy/AdvReac Type Severity Reaction Status Date / Time clarithromycin Allergy Intermediate FACIAL Verified 04/18/21 13:25 [CLARITHROMYCIN] SWELLING/REDNESS, facial rash, facial rash, facial rash, facial rash Review of Systems Review of Systems: Yes all other systems are reviewed and are negative Constitutional: Constitutional: Reports no additional constitutional complaints ENT: Reports system reviewed and no additional complaints, except as documented Cardiovascular: Cardiovascular: Denies dyspnea, Denies dyspnea on exertion and Denies orthopnea Respiratory: Respiratory: Denies dyspnea and Denies dyspnea on exertion Gastrointestinal: Gastrointestinal: Denies diarrhea, Denies nausea and Denies vomiting Musculoskeletal: Musculoskeletal: Reports no additional musculoskeletal complaints Integumentary/Breasts: Skin/Breast: Reports system reviewed and no additional complaints, except as docu Neurologic: Reports system reviewed and no additional complaints, except as documented Psychiatric: Psychiatric: Reports no additional psychiatric complaints [facility] Past Medical History Attestation statement: The following information was validated with the patient. Medical History CVA (cerebral vascular accident) Fibromyalgia Hypothyroid Lupus Proteinuria Rheumatoid arthritis Surgical History History of breast lump/mass excision History of bunionectomy History of cholecystectomy History of excision of mass History of partial hysterectomy Family History Family History Father No problems noted. 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) Alcohol intake: never Cigarette Packs Per Day: 1 Cigarettes Per Day: 20.0 Years Smoked: 29 Second Hand Smoke Exposure: No Advance Directives: No Advance Directives Information Provided: Yes Patient : No Current occupational status: disabled Physical Exam Vital Signs: Vital Signs: Last Vital Signs Temp 96.6 F L 10/21/21 15:31 Pulse 83 10/21/21 15:31 Resp 16 10/21/21 15:31 BP 142/96 H 10/21/21 15:31 Pulse Ox 93 10/21/21 15:31 BMI result Body Mass Index 27.4 Const: General: cooperative, comfortable and no acute distress Orientation/consciousness: patient oriented x3 Limitations: no limitations HENMT: Head: Yes normal to inspection Face and sinus: Yes normal facial exam Mouth: Normal oral and palatal mucosa present Neck: Neck: Yes normal visual inspection and Yes full ROM Chest: Chest palpation & inspection: normal inspection of the chest Resp: Effort & Inspection: normal respiratory effort Auscultation: clear to auscultation bilaterally Cardio: Jugular venous distension: no JVD Rate: regular rate Rhythm: regular rhythm GI: Inspection: Yes normal to inspection Palpation (GI): Soft to palpation, not firm, nontender, no guarding and not rigid Auscultation: normal bowel sounds Skin: General skin exam: no rashes or lesions noted, elasticity normal and turgor normal Neuro: General: patient oriented x3 Extrem: Other: Right lower extremity shows swelling in the calf , redness in the anterior aspect of the leg, she has excellent pulses palpable in the dorsal pedis posterior tibialis Course Course Course Narrative: This is a 46 years old immunocompromised patient on prednisone and history of lupus, presented with cellulitis of the right leg and swelling of the right leg ultrasound is negative for DVT. I think is very reasonable to admit the patient for observation for IV antibiotic MDM - Extremity (Nontraumatic) Lab Data Result diagrams: 10/21/21 08:51 10/21/21 08:51 Labs: Lab Results 10/21/21 10/21/21 10/21/21 Range/Units 08:51 08:51 08:51 WBC 12.3 H (4.8-10.8) X10*3/uL RBC 4.81 (4.20-5.50) X10*6/uL Hgb 11.6 L (12.0-16.0) g/dl Hct 38.9 (37.0-47.0) % MCV 80.9 (80.0-98.0) fL MCH 24.1 L (27.0-33.0) pg MCHC 29.8 L (31.0-35.0) g/dl RDW 14.8 (11.0-16.0) % Plt Count 210 (160-400) X10*3/uL MPV 8.7 L (9.4-12.3) fL Immature Gran % (Auto) 0.6 H (0.0-0.4) % Neut % (Auto) 77.1 H (45-73) % Lymph % (Auto) 9.8 L (20-40) % [place] % (Auto) 7.9 (2-11) % Eos % (Auto) 4.1 H (0-4) % Baso % (Auto) 0.5 (0-2) % Lymph # (Auto) 1.2 (1.2-4.9) X10*3/uL [place] # (Auto) 1.0 (0.1-1.2) X10*3/uL Eos # (Auto) 0.5 H (0.0-0.4) X10*3/uL Baso # (Auto) 0.1 (0.0-0.2) X10*3/uL Abs Immat Gran (auto) 0.08 H (0.00-0.03) X10*3/uL Absolute Neuts (auto) 9.5 H (2.0-8.3) x10*3/uL Absolute Nucleated RBC 0.000 (0.0-0.012) X10*3/uL Nucleated RBC % (auto) 0.0 (0.0-0.2) /100WBC ESR 42 H (0-20) MM/HR Sodium 136 (135-145) mmol/L Potassium 5.1 D (3.3-5.1) mmol/L Chloride 102 (96-108) mmol/L Carbon Dioxide 26 (22-29) mmol/L Anion Gap 13 (12-20) BUN 12 (9-16) mg/dL Creatinine 0.78 (0.5-1.4) mg/dL Estim Creat Clear Calc 83.2 Estimated GFR > 60 Random Glucose 91 (60-115) mg/dL Calcium 8.8 (8.4-10.2) mg/dL Total Bilirubin 0.3 (0.0-1.0) mg/dL AST 26 D (5-31) U/L ALT 16 (0-31) U/L Alkaline Phosphatase 162 H (39-117) U/L Total Protein 7.0 (6.5-8.0) g/dL Albumin 3.6 (3.5-5.0) g/dL COVID-19 ([facility]) (Negative) COVID-19 Clin Com 10/21/21 Range/Units 11:00 WBC (4.8-10.8) X10*3/uL RBC (4.20-5.50) X10*6/uL Hgb (12.0-16.0) g/dl Hct (37.0-47.0) % MCV (80.0-98.0) fL MCH (27.0-33.0) pg MCHC (31.0-35.0) g/dl RDW (11.0-16.0) % Plt Count (160-400) X10*3/uL MPV (9.4-12.3) fL Immature Gran % (Auto) (0.0-0.4) % Neut % (Auto) (45-73) % Lymph % (Auto) (20-40) % [place] % (Auto) (2-11) % Eos % (Auto) (0-4) % Baso % (Auto) (0-2) % Lymph # (Auto) (1.2-4.9) X10*3/uL [place] # (Auto) (0.1-1.2) X10*3/uL Eos # (Auto) (0.0-0.4) X10*3/uL Baso # (Auto) (0.0-0.2) X10*3/uL Abs Immat Gran (auto) (0.00-0.03) X10*3/uL Absolute Neuts (auto) (2.0-8.3) x10*3/uL Absolute Nucleated RBC (0.0-0.012) X10*3/uL Nucleated RBC % (auto) (0.0-0.2) /100WBC ESR (0-20) MM/HR Sodium (135-145) mmol/L Potassium (3.3-5.1) mmol/L Chloride (96-108) mmol/L Carbon Dioxide (22-29) mmol/L Anion Gap (12-20) BUN (9-16) mg/dL Creatinine (0.5-1.4) mg/dL Estim Creat Clear Calc Estimated GFR Random Glucose (60-115) mg/dL Calcium (8.4-10.2) mg/dL Total Bilirubin (0.0-1.0) mg/dL AST (5-31) U/L ALT (0-31) U/L Alkaline Phosphatase (39-117) U/L Total Protein (6.5-8.0) g/dL Albumin (3.5-5.0) g/dL COVID-19 ([facility]) Negative (Negative) COVID-19 Clin Com See Note Imaging Data us leg: Radiologist's impression: None TECHNIQUE: Ultrasound of the deep veins is performed from the hip to the calf with compression sonography and color and pulse Doppler assessment. Spectral analysis with color-flow imaging is performed. FINDINGS: There is normal venous compression and respiratory variation and augmented flow. The visualized common femoral vein, superficial femoral vein, profunda femoral vein, popliteal vein, and the trifurcation region shows no evidence of deep venous thrombosis. ? There is no significant popliteal fossa cyst. 6 there is diffuse subcutaneous edema. There is a moderate suprapatellar joint effusion as well as a complex fluid collection in the popliteal fossa measuring 5.3 x 1.5 x 3.7 cm. US/US venous duplex LE RT IMPRESSION: No DVT demonstrated in the right lower extremity. Suprapatellar joint effusion. 5.3 cm Ram's cyst. Dictated By: HELADIO LUX MD Signed By: <Electronically signed by HELADIO LUX MD in OV> 10/21/21901 DD/ 4 TD/TT:? Manager Review: PN Discharge Plan Discharge Clinical Impression: Cellulitis of right leg Patient Disposition: Admitted As Inpatient
[2021-10-21 08:55] LABS: MANUAL DIFF FLAG NO
[2021-10-21 08:57] LABS: Basophils Absolute Auto 0.1 X10*3/uL (0.0-0.2); Basophils Percent Auto 0.5 % (0-2); Eosinophils Absolute Auto 0.5 X10*3/uL (0.0-0.4); Eosinophils Percent Auto 4.1 % (0-4); Hematocrit 38.9 % (37.0-47.0); Hemoglobin 11.6 g/dl (12.0-16.0); Imm Gran Abs Auto 0.08 X10*3/uL (0.00-0.03); Imm Gran Pct Auto 0.6 % (0.0-0.4); Lymphocytes Absolute Auto 1.2 X10*3/uL (1.2-4.9); Lymphocytes Percent Auto 9.8 % (20-40); Mean Corpuscular HGB Conc 29.8 g/dl (31.0-35.0); Mean Corpuscular Hemoglobin 24.1 pg (27.0-33.0); Mean Corpuscular Volume 80.9 fL (80.0-98.0); Mean Platelet Volume 8.7 fL (9.4-12.3); Monocytes Percent Auto 7.9 % (2-11); Neutrophils Absolute Auto 9.5 x10*3/uL (2.0-8.3); Neutrophils Percent Auto 77.1 % (45-73); Platelet Count 210 X10*3/uL (160-400); Red Blood Count 4.81 X10*6/uL (4.20-5.50); Red Cell Distribution Width 14.8 % (11.0-16.0); White Blood Count 12.3 X10*3/uL (4.8-10.8)
[2021-10-21] MEDS: cefTRIAXone sodium 1 GM in 0.9 % Sodium Chloride 50 ML IV (08:59)
[2021-10-21 09:16] LABS: Alanine Aminotransferase 16 U/L (0-31); Albumin Level 3.6 g/dL (3.5-5.0); Alkaline Phosphatase 162 U/L (39-117); Anion Gap 13 (12-20); Aspartate Amino Transferase 26 U/L (5-31); Bilirubin Total 0.3 mg/dL (0.0-1.0); Blood Urea Nitrogen 12 mg/dL (9-16); Calcium 8.8 mg/dL (8.4-10.2); Carbon Dioxide 26 mmol/L (22-29); Chloride 102 mmol/L (96-108); Creatinine Clr Calc Pharmacy 83.2; Estimated Glomerular Filt Rate > 60; Glucose Random 91 mg/dL (60-115); Potassium 5.1 mmol/L (3.3-5.1); Sodium 136 mmol/L (135-145)
[2021-10-21 09:46] LABS: Erythrocyte Sedimentation Rate 42 MM/HR (0-20)
[2021-10-21 10:58] VITALS: BP 139/79; PULSE 81; RESP 16; TEMP 36.8; O2SAT 95
--- NOTE | 2021-10-21 11:34 | PHA.MEDREC ---
MED REC COMPLETE, PATIENT UNABLE TO STAY AWAKE WHILE i ASKED QUESTIONS, UPDATED LIST BASED ON PHARMACY HISTORY Pharmacy Consult ? Medication Reconciliation Pharmacy has completed the medication reconciliation.
[2021-10-21] MEDS: vancomycin HCL 1,000 MG in 0.9 % Sodium Chloride 250 ML 270 MG IV (11:48)
--- NOTE | 2021-10-21 11:55 | PM.IMHP ---
History of Present Illness Date of Service: 10/21/21 Attending physician on admission: Bonnie Cheema Chief Complaint: right leg cellulitis 46-year-old of female- with past medical history of fibromyalgia, rheumatoid arthritis, Ram cyst, lupus on steroids and Plaquenil, history of CVA- came to the hospital because of right lower leg swelling and erythema, found to have elevated WBC count and DVT study negative for right lower leg. So admission was given for right lower leg cellulitis. Patient has erythema and swelling up to ankle but sparing the knee area and slight below the knee area. 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 Denies any new complaint of chest pain or shortness of breath or abdominal pain or fever or chills or nausea or vomiting Denies any cough Denies any weakness or numbness. Lab and imaging reviewed personally and interpreted: has elevated WBC count, venous duplex shows subcutaneous edema. Has Ram cyst suprapatellar knee effusion seems chronic- present in previous imaging studies. blood cultures sent of note: Her left leg gram stain and culture grew pansenstive Staph aureus on 09/13/20. in the ED patient was started on vancomycin also received a dose of ceftriaxone. past medical history: As above. Social history: 30 pack year history smoking, no alcohol or recreation drug use. She lives with the her son's, walks with walker. 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 otherwise ADL independent. Review of Systems Review of Systems: as above. Yes all other systems are reviewed and are negative [facility] Medical History CVA (cerebral vascular accident) Fibromyalgia Hypothyroid Lupus Proteinuria Rheumatoid arthritis Family History Father No problems noted. Mother Lung cancer Pertinent family history: Family history as above -mother had lung cancer. 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) Alcohol intake: never Patient Tobacco Use Status: Current everyday Tobacco user Tobacco use type: Cigarette Cigarette Packs Per Day: 1 Cigarettes Per Day: 20.0 Years Smoked: 29 Smoked in Last 30 Days: Yes Second Hand Smoke Exposure: No Use of substances other than those prescribed or required for medical reasons: No Advance Directives: No Advance Directives Information Provided: Yes Patient : No Current occupational status: disabled Meds Allergies Allergy/AdvReac Type Severity Reaction Status Date / Time clarithromycin Allergy Intermediate FACIAL Verified 04/18/21 13:25 [CLARITHROMYCIN] SWELLING/REDNESS, facial rash, facial rash, facial rash, facial rash Active Medications: Current Medications Acetaminophen/Butalbital/Caffeine (Butalb/Acetamin/Caff 50/325/40 Tablet) 2 tab PO DAILY PRN PRN Reason: headache Albuterol Sulfate (Albuterol Sulfate 90 Mcg 8 Gm Inhaler) 2 puff INHALE Q4H PRN PRN Reason: Shortness Of Breath Or Wheezing Albuterol Sulfate (Albuterol Sulfate (0.083%) 2.5 Mg/3 Ml Vial.Neb) 2.5 mg INHALE Q6H PRN PRN Reason: Shortness Of Breath Or Wheezing Apixaban (Apixaban 5 Mg Tablet) 5 mg PO BID [place] Fluoxetine HCl (Fluoxetine Hcl 20 Mg Capsule) 40 mg PO DAILY [place] Folic Acid (Folic Acid 1 Mg Tablet) 1 mg PO DAILY [place] Hydroxychloroquine Sulfate (Hydroxychloroquine Sulfate 200 Mg Tablet) 200 mg PO BID [place] Vancomycin HCl 1,000 mg/ (Sodium Chloride) 270 mls @ 270 mls/hr IV ONCE ONE Stop: 10/21/21 12:22 Last Admin: 10/21/21 11:48 Dose: 270 mls/hr Documented by: Levothyroxine Sodium (Levothyroxine Sodium 175 Mcg Tablet) 175 mcg PO DAILY [place] Loratadine (Loratadine 10 Mg Tablet) 10 mg PO DAILY [place] Lorazepam (Lorazepam 1 Mg Tablet) 1 mg PO BID PRN PRN Reason: Anxiety Multivitamins/Vitamin C (Multivitamin Tablet) 1 tab PO DAILY [place] Non-Formulary Medication (Bupropion Hcl) 100 mg PO BID [place] Non-Formulary Medication (Fluticasone Propionate [Flovent Hfa]) 1 puff INHALE BID [place] Non-Formulary Medication (Ferrous Sulfate [Ferosul]) 325 mg PO DAILY [facility] Pharmacy Consult (Consult Rx Perform Med Rec) 1 each MISCELLANE ONCE PRN PRN Reason: Consult order Pharmacy Consult (Consult Rx Vancomycin Dosing) 1 each MISCELLANE DAILY PRN PRN Reason: Consult order Pharmacy Consult (Consult Rx Vancomycin Dosing) 1 each MISCELLANE DAILY PRN PRN Reason: Consult order Pravastatin Sodium (Pravastatin Sodium 40 Mg Tablet) 40 mg PO BEDTIME [facility] Prednisone (Prednisone 5 Mg Tablet) 5 mg PO DAILY [facility] Sodium Chloride (0.9 % Sodium Chloride Flush 3 Ml Syringe) 3 ml IVFLUSH QSHIFT [facility] Sulfasalazine (Sulfasalazine 500 Mg Tablet) 500 mg PO BID [facility] Tramadol HCl (Tramadol Hcl 50 Mg Tablet) 50 mg PO Q8H [facility] Home Medications Medication Instructions Recorded Confirmed Last Taken Type lorazepam 1 mg tablet 1 mg PO BID PRN 08/15/20 10/21/21 08/30/20 History pravastatin 40 mg tablet 40 mg PO BEDTIME 08/15/20 10/21/21 08/30/20 History fluoxetine 40 mg capsule (Prozac) 40 mg PO DAILY 08/20/20 10/21/21 08/30/20 History albuterol sulfate 2.5 mg INHALATION Q6H PRN 08/31/20 10/21/21 08/30/20 History albuterol sulfate 90 mcg/actuation 2 puff INHALATION Q4H PRN 08/31/20 10/21/21 08/30/20 History aerosol inhaler bupropion HCl 100 mg tablet,12 hr 100 mg PO BID 08/31/20 10/21/21 08/30/20 History sustained-release alarylueqr-wnkoxwcnnpfxd-ifgpphmo 2 tab PO DAILY PRN 08/31/20 10/21/21 08/30/20 History 50 mg-325 mg-40 mg tablet prednisone 5 mg tablet 5 mg PO DAILY 08/31/20 10/21/21 08/30/20 History nortriptyline 75 mg capsule 75 mg PO BEDTIME 04/18/21 10/21/21 Unknown History apixaban 5 mg tablet 5 mg PO BID 10/21/21 10/21/21 Unknown History fluticasone propionate 220 1 puff INHALATION BID 10/21/21 10/21/21 Unknown History mcg/actuation HFA aerosol inhaler (Flovent HFA) levothyroxine 175 mcg tablet 175 mcg PO DAILY 10/21/21 10/21/21 Unknown History loratadine 10 mg tablet 10 mg PO DAILY 10/21/21 10/21/21 Unknown History multivitamin 1 tab PO DAILY 10/21/21 10/21/21 Unknown History sulfasalazine 500 mg tablet 0.5 g PO BID 10/21/21 10/21/21 Unknown History tramadol 50 mg tablet 50 mg PO Q8H 10/21/21 10/21/21 Unknown History Physical Exam Vital Signs and Narrative: Vital Signs: Last Vital Signs Temp 98.2 F 10/21/21 10:58 Pulse 81 10/21/21 10:58 Resp 16 10/21/21 10:58 BP 139/79 10/21/21 10:58 Pulse Ox 95 10/21/21 10:58 BMI result Body Mass Index 27.4 physical exam: Appearance: Alert oriented x3 but wants to sleep says that she did not sleep the whole night. Eyes: Pupils equal, round and reactive to light.? Sclera nonicteric.? ENT: Pharynx normal.? Moist mucous membranes. cvs: rrr, [id number] , no murmur res: clear to auscultation ,no rhonchii or wheezing abd: no rebound or guarding ,nt, bs present. ext pulses present , has mild swelling of both legs right>left, Right leg erythema from ankle to below-knee area. not significant knee need swelling or pain or erythema. neuro: axo3 , nonfocal. Results Labs CBC and Chem 7: 10/22/21 07:16 10/21/21 08:51 Labs: Laboratory Results - last 24 hr 10/21/21 10/21/21 10/21/21 08:51 08:51 08:51 MCV 80.9 MCH 24.1 L MCHC 29.8 L RDW 14.8 Plt Count 210 MPV 8.7 L Immature Gran % (Auto) 0.6 H Neut % (Auto) 77.1 H Lymph % (Auto) 9.8 L [place] % (Auto) 7.9 Eos % (Auto) 4.1 H Baso % (Auto) 0.5 Lymph # (Auto) 1.2 [place] # (Auto) 1.0 Eos # (Auto) 0.5 H Baso # (Auto) 0.1 Abs Immat Gran (auto) 0.08 H Absolute Neuts (auto) 9.5 H Absolute Nucleated RBC 0.000 Nucleated RBC % (auto) 0.0 ESR 42 H Anion Gap 13 Estim Creat Clear Calc 83.2 Estimated GFR > 60 Random Glucose 91 Calcium 8.8 Total Bilirubin 0.3 AST 26 D ALT 16 Alkaline Phosphatase 162 H Total Protein 7.0 Albumin 3.6 Imaging Radiologist's Impressions: Impressions Venous Duplex 10/21/21 08:15 IMPRESSION: No DVT demonstrated in the right lower extremity. Suprapatellar joint effusion. 5.3 cm Ram's cyst. Assessment and Plan (1) Cellulitis of right leg: Status: Acute 1. 46 year old patient with history of lupus on steroid /plaque Came with right lower extremity cellulitis. Right lower extremity cellulitis: Patient started on vancomycin blood cultures sent Vanco trough as per pharmacy monitor renal function and electrolytes closely. ID eval 2. History of lupus / rheumatoid arthritis: continue prednisone Plaquenil 3. history of CVA: patient says that she is on apixaban because of CVA. 4. Hypothyroidism: Continue levothyroxine 5.hlp: continue statin. 6. Smoker: Started on nicotine patch DVT prophylaxis: Continue apixaban above management discussed with patient in detail length she understand and in agreement with above plan including the use of antibiotics, code status. patient full code, assessment and plan coordination time spent 70 minute. Quality Stroke Does the patient have a stroke diagnosis?: No VTE Prior VTE?: No VTE Risk Level:: Medical - moderate - high VTE Device Contraindication: N/A - Device Ordered VTE Drug Contraindication: N/A - Med Ordered
[2021-10-21 12:03] LABS: COVID-19 Test Negative (Negative)
[2021-10-21] MEDS: traMADoL HCL 50 MG TABLET PO ×2 (12:21→21:05)
[2021-10-21 15:31] VITALS: BP 142/96; PULSE 83; RESP 16; TEMP 35.9; O2SAT 93
[2021-10-21] MEDS: 0.9 % Sodium Chloride Flush 3 ML SYRINGE IVFLUSH (15:40)
[2021-10-21] MEDS: Nicotine 21 MG PATCH.TD24 TRANSDERMA (17:19)
[2021-10-21 19:44] VITALS: BP 127/70; PULSE 85; RESP 19; TEMP 37.3; O2SAT 94
[2021-10-21] MEDS: Apixaban 5 MG TABLET PO (21:05)
[2021-10-21] MEDS: Pravastatin Sodium 40 MG TABLET PO (21:05)
[2021-10-21] MEDS: sulfaSALAzine 500 MG TABLET PO (21:06)
[2021-10-21] MEDS: Hydroxychloroquine Sulfate 200 MG TABLET PO (21:06)
[2021-10-21 21:41] VITALS: BP 109/58; PULSE 87; RESP 15; O2SAT 92
--- NOTE | 2021-10-21 21:45 | PC.NURSE ---
Dr Gross notified of pt's SpO2 sat average ~92% with frequent drops to 87-88% when pt falls asleep. Pt reports hx of COPD. Awaiting response from MD regarding SpO2 goal. Additionally, pt reports persistent pain, denies improvement s/p tramadol. Pt requesting stronger meds, MD aware. This RN awaiting response/intervention.
[2021-10-21] MEDS: Butalb/Acetamin/Caff 50/325/40 TABLET 2 TAB PO (21:51)
--- NOTE | 2021-10-21 22:16 | PC.NURSE ---
Per Dr Gross, pt SpO2 goal 88-92% and to remain </= 94%. Supplemental O2 as needed to maintain parameters. Pt to be medicated per JAN.
[2021-10-21] MEDS: oxyCODONE HCl Immed Release 5 MG TABLET PO (22:17)
[2021-10-22] VITALS (7 sets, daily range): BP systolic 108–125; BP diastolic 49–75; PULSE 65–87; RESP 16–18; TEMP 36.1–37.2; O2SAT 92–100
[2021-10-22] MEDS: vancomycin HCL 1,000 MG in 0.9 % Sodium Chloride 250 ML 270 MG IV ×2 (00:13→14:19)
[2021-10-22] MEDS: 0.9 % Sodium Chloride Flush 3 ML SYRINGE IVFLUSH ×3 (00:14→14:20)
[2021-10-22] MEDS: traMADoL HCL 50 MG TABLET PO ×3 (05:09→21:01)
[2021-10-22] MEDS: Levothyroxine Sodium 175 MCG TABLET PO (05:09)
[2021-10-22 07:47] LABS: Hematocrit 35.1 % (37.0-47.0); Hemoglobin 10.6 g/dl (12.0-16.0); Mean Corpuscular HGB Conc 30.2 g/dl (31.0-35.0); Mean Corpuscular Hemoglobin 24.2 pg (27.0-33.0); Mean Corpuscular Volume 80.1 fL (80.0-98.0); Mean Platelet Volume 9.2 fL (9.4-12.3); Platelet Count 164 X10*3/uL (160-400); Red Blood Count 4.38 X10*6/uL (4.20-5.50); White Blood Count 6.4 X10*3/uL (4.8-10.8)
[2021-10-22 08:08] LABS: Anion Gap 12 (12-20); Blood Urea Nitrogen 10 mg/dL (9-16); Calcium 8.8 mg/dL (8.4-10.2); Carbon Dioxide 30 mmol/L (22-29); Chloride 103 mmol/L (96-108); Creatinine Clr Calc Pharmacy 91.4; Estimated Glomerular Filt Rate > 60; Glucose Random 87 mg/dL (60-115); Potassium 4.7 mmol/L (3.3-5.1); Sodium 140 mmol/L (135-145)
[2021-10-22] MEDS: FLUoxetine HCl 20 MG CAPSULE 40 MG PO (09:39)
[2021-10-22] MEDS: Apixaban 5 MG TABLET PO ×2 (09:40→21:00)
[2021-10-22] MEDS: Loratadine 10 MG TABLET PO (09:40)
[2021-10-22] MEDS: Folic Acid 1 MG TABLET PO (09:40)
[2021-10-22] MEDS: Ferrous Sulfate 324 MG TABLET.DR PO (09:40)
[2021-10-22] MEDS: Multivitamin TABLET 1 TAB PO (09:40)
[2021-10-22] MEDS: buPROPion HCl XL 150 MG TAB.ER.24H PO (09:40)
[2021-10-22] MEDS: predniSONE 5 MG TABLET PO (09:40)
[2021-10-22] MEDS: Nicotine 21 MG PATCH.TD24 TRANSDERMA (09:43)
[2021-10-22] MEDS: Hydroxychloroquine Sulfate 200 MG TABLET PO ×2 (10:18→21:01)
[2021-10-22] MEDS: Fluticasone Propionate 250 MCG BLST.W.DEV 1 PUFF INHALE ×2 (10:18→20:59)
[2021-10-22] MEDS: sulfaSALAzine 500 MG TABLET PO ×2 (10:19→21:01)
--- NOTE | 2021-10-22 12:20 | HO.PM.IMPN ---
Subjective Subjective Date of Service: 10/22/21 Interval History: Leg cellulitis Review of Systems erythema and pain seems to be improving slowly denies any chest pain or abdominal pain or fever chills or cough or phlegm. Physical Exam Vital Signs: Vital Signs: Last Vital Signs Temp 98.9 F 10/22/21 04:00 Pulse 87 10/22/21 10:20 Resp 16 10/22/21 10:20 BP 109/49 L 10/22/21 10:20 Pulse Ox 93 10/22/21 10:20 BMI result Body Mass Index 27.4 Appearance:? Alert oriented x3 but wants to sleep says that she did not sleep the whole night. Eyes: Pupils equal, round and reactive to light.? Sclera nonicteric.? ENT: Pharynx normal.? Moist mucous membranes. cvs: rrr, [id number] , no murmur res: clear to auscultation ,no rhonchii or wheezing abd: no rebound or guarding ,nt, bs present. ext pulses present , ? Right leg erythema and swelling seems slightly improving ?not significant knee need swelling or pain or erythema. neuro: axo3 , nonfocal. Objective Data Active Medications Acetaminophen/Butalbital/Caffeine (Butalb/Acetamin/Caff 50/325/40 Tablet) 2 tab PO DAILY PRN PRN Reason: headache Last Admin: 10/21/21 21:51 Dose: 2 tab Documented by: FRED Albuterol Sulfate (Albuterol Sulfate 90 Mcg 8 Gm Inhaler) 2 puff INHALE Q4H PRN PRN Reason: Shortness Of Breath Or Wheezing Albuterol Sulfate (Albuterol Sulfate (0.083%) 2.5 Mg/3 Ml Vial.Neb) 2.5 mg INHALE Q6H PRN PRN Reason: Shortness Of Breath Or Wheezing Apixaban (Apixaban 5 Mg Tablet) 5 mg PO BID [facility] Last Admin: 10/22/21 09:40 Dose: 5 mg Documented by: BJ Bupropion HCl (Bupropion Hcl Xl 150 Mg Tab.Er.24h) 150 mg PO DAILY [facility] Last Admin: 10/22/21 09:40 Dose: 150 mg Documented by: BJ Ferrous Sulfate (Ferrous Sulfate 324 Mg Tablet.) 324 mg PO DAILY [facility] Last Admin: 10/22/21 09:40 Dose: 324 mg Documented by: BJ Fluoxetine HCl (Fluoxetine Hcl 20 Mg Capsule) 40 mg PO DAILY [facility] Last Admin: 10/22/21 09:39 Dose: 40 mg Documented by: BJ Fluticasone Propionate (Fluticasone Propionate 250 Mcg Blst.W.Dev) 1 puff INHALE RBID [facility] Last Admin: 10/22/21 10:18 Dose: 1 puff Documented by: BJ Folic Acid (Folic Acid 1 Mg Tablet) 1 mg PO DAILY [facility] Last Admin: 10/22/21 09:40 Dose: 1 mg Documented by: BJ Hydroxychloroquine Sulfate (Hydroxychloroquine Sulfate 200 Mg Tablet) 200 mg PO BID [facility] Last Admin: 10/22/21 10:18 Dose: 200 mg Documented by: BJ Vancomycin HCl 1,000 mg/ (Sodium Chloride) 270 mls @ 270 mls/hr IV Q12H [facility] Last Infusion: 10/22/21 02:12 Dose: 0 mls/hr Documented by: ANANTH Levothyroxine Sodium (Levothyroxine Sodium 175 Mcg Tablet) 175 mcg PO DAILY@0600 [facility] Last Admin: 10/22/21 05:09 Dose: 175 mcg Documented by: ANANTH Loratadine (Loratadine 10 Mg Tablet) 10 mg PO DAILY [facility] Last Admin: 10/22/21 09:40 Dose: 10 mg Documented by: BJ Lorazepam (Lorazepam 1 Mg Tablet) 1 mg PO BID PRN PRN Reason: Anxiety Multivitamins/Vitamin C (Multivitamin Tablet) 1 tab PO DAILY [facility] Last Admin: 10/22/21 09:40 Dose: 1 tab Documented by: BJ Nicotine (Nicotine 21 Mg Patch.Td24) 21 mg TRANSDERMA DAILY [facility] Last Admin: 10/22/21 09:43 Dose: 21 mg Documented by: BJ Pharmacy Consult (Consult Rx Perform Med Rec) 1 each MISCELLANE ONCE PRN PRN Reason: Consult order Pharmacy Consult (Consult Rx Vancomycin Dosing) 1 each MISCELLANE DAILY PRN PRN Reason: Consult order Pravastatin Sodium (Pravastatin Sodium 40 Mg Tablet) 40 mg PO BEDTIME [facility] Last Admin: 10/21/21 21:05 Dose: 40 mg Documented by: MIKE Prednisone (Prednisone 5 Mg Tablet) 5 mg PO DAILY [facility] Last Admin: 10/22/21 09:40 Dose: 5 mg Documented by: BJ Sodium Chloride (0.9 % Sodium Chloride Flush 3 Ml Syringe) 3 ml IVFLUSH QSHIFT [facility] Last Admin: 10/22/21 09:45 Dose: 3 ml Documented by: BJ Sulfasalazine (Sulfasalazine 500 Mg Tablet) 500 mg PO BID [facility] Last Admin: 10/22/21 10:19 Dose: 500 mg Documented by: BJ Tramadol HCl (Tramadol Hcl 50 Mg Tablet) 50 mg PO Q8H [facility] Last Admin: 10/22/21 05:09 Dose: 50 mg Documented by: ANANTH Labs CBC & Chem 7: 10/22/21 07:16 10/22/21 07:16 Labs: Laboratory Results - last 24 hr 10/22/21 10/22/21 07:16 07:16 MCV 80.1 MCH 24.2 L MCHC 30.2 L RDW 15.0 Plt Count 164 MPV 9.2 L Absolute Nucleated RBC 0.000 Nucleated RBC % (auto) 0.0 Anion Gap 12 Estim Creat Clear Calc 91.4 Estimated GFR > 60 Random Glucose 87 Calcium 8.8 Microbiology Microbiology Results: Microbiology 10/21/21 08:54 Blood Culture - Preliminary Blood - Venous No growth after 24 hours. 10/21/21 08:51 Blood Culture - Preliminary Blood - Venous No growth after 24 hours. Assessment and Plan (1) Cellulitis of right leg: Status: Acute Assessment and Plan: ?Hospital day-2 46? year old patient with history of lupus on steroid /plaque ? Came with right lower extremity cellulitis. 1.? Right lower extremity cellulitis: ? on vancomycin day 2 ?blood cultures sent ?Vanco trough as per pharmacy ?monitor renal function and electrolytes closely. ID renate [email or web address] 2. ? History of lupus / rheumatoid arthritis: ?continue prednisone Plaquenil 3. history of CVA:? patient says that she is on apixaban because of CVA. ? 4. Hypothyroidism: Continue levothyroxine 5.hlp: continue? statin. 6.? Smoker:? Started on nicotine patch ?DVT prophylaxis: Continue apixaban Quality Stroke Does the patient have a stroke diagnosis?: No VTE Prior VTE?: No VTE Risk Level:: Medical - moderate - high VTE Device Contraindication: N/A - Device Ordered VTE Drug Contraindication: N/A - Med Ordered
--- NOTE | 2021-10-22 12:23 | PC.NURSE ---
report called to the floor, pt can be transported when tech is available
--- NOTE | 2021-10-22 15:32 | MHC.CM.PN ---
CM ATTEMPTED TO SEE PT WHO WAS RECEIVING CARE FROM NURSING STAFF. CM TO REVISIT
[2021-10-22] MEDS: Pravastatin Sodium 40 MG TABLET PO (21:00)
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
[2021-10-23] MEDS: vancomycin HCL 750 MG in 0.9 % Sodium Chloride 250 ML 265 MG IV (00:19)
[2021-10-23] MEDS: 0.9 % Sodium Chloride Flush 3 ML SYRINGE IVFLUSH ×2 (00:20→07:51)
[2021-10-23] MEDS: traMADoL HCL 50 MG TABLET PO ×2 (03:23→13:14)
[2021-10-23 03:39] VITALS: BP 109/56; PULSE 87; RESP 18; TEMP 37; O2SAT 97
[2021-10-23] MEDS: Levothyroxine Sodium 175 MCG TABLET PO (05:58)
--- NOTE | 2021-10-23 07:24 | P.PNIM_ITS ---
Subjective Subjective Date of Service: 10/23/21 Physical Exam Vital Signs: Vital Signs: Last Vital Signs Temp 98.6 F 10/23/21 03:39 Pulse 87 10/23/21 03:39 Resp 18 10/23/21 03:39 BP 109/56 L 10/23/21 03:39 Pulse Ox 97 10/23/21 03:39 BMI result Body Mass Index 27.4 Objective Data Active Medications Acetaminophen/Butalbital/Caffeine (Butalb/Acetamin/Caff 50/325/40 Tablet) 2 tab PO DAILY PRN PRN Reason: headache Last Admin: 10/21/21 21:51 Dose: 2 tab Documented by: FRED Albuterol Sulfate (Albuterol Sulfate 90 Mcg 8 Gm Inhaler) 2 puff INHALE Q4H PRN PRN Reason: Shortness Of Breath Or Wheezing Albuterol Sulfate (Albuterol Sulfate (0.083%) 2.5 Mg/3 Ml Vial.Neb) 2.5 mg INHA LE Q6H PRN PRN Reason: Shortness Of Breath Or Wheezing Apixaban (Apixaban 5 Mg Tablet) 5 mg PO BID [facility] Last Admin: 10/22/21 21:00 Dose: 5 mg Documented by: JESSICA Bupropion HCl (Bupropion Hcl Xl 150 Mg Tab.Er.24h) 150 mg PO DAILY [facility] Last Admin: 10/22/21 09:40 Dose: 150 mg Documented by: BJ Ferrous Sulfate (Ferrous Sulfate 324 Mg Tablet.Dr) 324 mg PO DAILY [facility] Last Admin: 10/22/21 09:40 Dose: 324 mg Documented by: BJ Fluoxetine HCl (Fluoxetine Hcl 20 Mg Capsule) 40 mg PO DAILY [facility] Last Admin: 10/22/21 09:39 Dose: 40 mg Documented by: BJ Fluticasone Propionate (Fluticasone Propionate 250 Mcg Blst.W.Dev) 1 puff INHALE RBID [facility] Last Admin: 10/22/21 20:59 Dose: 1 puff Documented by: TEE Folic Acid (Folic Acid 1 Mg Tablet) 1 mg PO DAILY [facility] Last Admin: 10/22/21 09:40 Dose: 1 mg Documented by: BJ Hydroxychloroquine Sulfate (Hydroxychloroquine Sulfate 200 Mg Tablet) 200 mg PO BID [facility] Last Admin: 10/22/21 21:01 Dose: 200 mg Documented by: JESSICA Vancomycin HCl 750 mg/ Sodium (Chloride) 265 mls @ 265 mls/hr IV Q12H [facility] Last Infusion: 10/23/21 03:21 Dose: 0 mls/hr Documented by: JESSICA Levothyroxine Sodium (Levothyroxine Sodium 175 Mcg Tablet) 175 mcg PO DAILY@0600 [facility] Last Admin: 10/23/21 05:58 Dose: 175 mcg Documented by: JESSICA Loratadine (Loratadine 10 Mg Tablet) 10 mg PO DAILY [facility] Last Admin: 10/22/21 09:40 Dose: 10 mg Documented by: BJ Lorazepam (Lorazepam 1 Mg Tablet) 1 mg PO BID PRN PRN Reason: Anxiety Multivitamins/Vitamin C (Multivitamin Tablet) 1 tab PO DAILY [facility] Last Admin: 10/22/21 09:40 Dose: 1 tab Documented by: JB Nicotine (Nicotine 21 Mg Patch.Td24) 21 mg TRANSDERMA DAILY [facility] Last Admin: 10/22/21 09:43 Dose: 21 mg Documented by: BJ Oxycodone HCl (Oxycodone Hcl Immed Release 5 Mg Tablet) 5 mg PO Q4H PRN PRN Reason: Pain, Mild (Pain Scale 1-3) Pharmacy Consult (Consult Rx Perform Med Rec) 1 each MISCELLANE ONCE PRN PRN Reason: Consult order Pharmacy Consult (Consult Rx Vancomycin Dosing) 1 each MISCELLANE DAILY PRN PRN Reason: Consult order Pravastatin Sodium (Pravastatin Sodium 40 Mg Tablet) 40 mg PO BEDTIME [facility] Last Admin: 10/22/21 21:00 Dose: 40 mg Documented by: JESSICA Prednisone (Prednisone 5 Mg Tablet) 5 mg PO DAILY [facility] Last Admin: 10/22/21 09:40 Dose: 5 mg Documented by: BJ Sodium Chloride (0.9 % Sodium Chloride Flush 3 Ml Syringe) 3 ml IVFLUSH QSHIFT [facility] Last Admin: 10/23/21 00:20 Dose: 3 ml Documented by: JESSICA Sulfasalazine (Sulfasalazine 500 Mg Tablet) 500 mg PO BID [facility] Last Admin: 10/22/21 21:01 Dose: 500 mg Documented by: JESSICA Tramadol HCl (Tramadol Hcl 50 Mg Tablet) 50 mg PO Q8H [facility] Last Admin: 10/23/21 03:23 Dose: 50 mg Documented by: JESSICA Labs CBC & Chem 7: 10/22/21 07:16 10/22/21 07:16 Labs: Laboratory Results - last 24 hr 10/22/21 10/22/21 10/22/21 07:16 07:16 22:05 MCV 80.1 MCH 24.2 L MCHC 30.2 L RDW 15.0 Plt Count 164 MPV 9.2 L Absolute Nucleated RBC 0.000 Nucleated RBC % (auto) 0.0 Anion Gap 12 Estim Creat Clear Calc 91.4 Estimated GFR > 60 Random Glucose 87 Calcium 8.8 Vancomycin Trough 20.0 Microbiology Microbiology Results: Microbiology 10/21/21 08:54 Blood Culture - Preliminary Blood - Venous No growth after 24 hours. 10/21/21 08:51 Blood Culture - Preliminary Blood - Venous No growth after 24 hours. Quality Stroke Does the patient have a stroke diagnosis?: No VTE Prior VTE?: No VTE Risk Level:: Medical - moderate - high VTE Device Contraindication: N/A - Device Ordered VTE Drug Contraindication: N/A - Med Ordered
[2021-10-23] MEDS: Hydroxychloroquine Sulfate 200 MG TABLET PO (07:49)
[2021-10-23] MEDS: buPROPion HCl XL 150 MG TAB.ER.24H PO (07:49)
[2021-10-23] MEDS: FLUoxetine HCl 20 MG CAPSULE 40 MG PO (07:49)
[2021-10-23] MEDS: Ferrous Sulfate 324 MG TABLET.DR PO (07:49)
[2021-10-23] MEDS: Folic Acid 1 MG TABLET PO (07:50)
[2021-10-23] MEDS: sulfaSALAzine 500 MG TABLET PO (07:50)
[2021-10-23] MEDS: Nicotine 21 MG PATCH.TD24 TRANSDERMA (07:50)
[2021-10-23] MEDS: Apixaban 5 MG TABLET PO (07:50)
[2021-10-23] MEDS: predniSONE 5 MG TABLET PO (07:50)
[2021-10-23] MEDS: Loratadine 10 MG TABLET PO (07:50)
[2021-10-23] MEDS: Multivitamin TABLET 1 TAB PO (07:50)
[2021-10-23 08:00] VITALS: BP 131/69; PULSE 75; RESP 17; TEMP 36.3; O2SAT 92
[2021-10-23] MEDS: Fluticasone Propionate 250 MCG BLST.W.DEV 1 PUFF INHALE (09:22)
[2021-10-23 09:23] VITALS: PULSE 84; O2SAT 93
[2021-10-23 10:26] LABS: Anion Gap 9 (12-20); Blood Urea Nitrogen 10 mg/dL (9-16); Calcium 8.7 mg/dL (8.4-10.2); Carbon Dioxide 30 mmol/L (22-29); Chloride 105 mmol/L (96-108); Creatinine Clr Calc Pharmacy 88.9; Estimated Glomerular Filt Rate > 60; Glucose Random 132 mg/dL (60-115); Potassium 4.4 mmol/L (3.3-5.1); Sodium 140 mmol/L (135-145)
--- NOTE | 2021-10-23 10:29 | P.CONGS_ITS ---
History of Present Illness Consult details Consult date: 10/23/21 Narrative: 46-year-old female known to me in the past for history of peripheral vascular disease. She had a prior nonhealing right lower extremity ulcer. She had undergone a diagnostic angiogram by me on 03/29/2021 which demonstrated no significant disease at that time. She has been doing fairly well until this most recent bout of cellulitis. She attributes it to the fluid in her knee. She now presents for hospital vascular examination Review of Systems Review of Systems: Yes all other systems are reviewed and are negative Constitutional: Constitutional: Reports no additional constitutional complaints ENT: Reports Normal hearing present Cardiovascular: Cardiovascular: Denies chest pain, Denies chest pain at rest, Denies chest pain with activity and Denies pedal edema Respiratory: Respiratory: Denies cough Gastrointestinal: Gastrointestinal: Denies abdominal pain Musculoskeletal: Musculoskeletal: Denies abnormal gait, Denies muscle cramps and Denies radiating pain into limb Integumentary/Breasts: Skin/Breast: Denies skin ulcer and Denies wounds Neurologic: Reports Normal hearing present and Denies abnormal gait Psychiatric: Psychiatric: Reports no additional psychiatric complaints [facility] Past Medical History Medical History CVA (cerebral vascular accident) Fibromyalgia Hypothyroid Lupus Proteinuria Rheumatoid arthritis Family History Family History Father No problems noted. 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) Alcohol intake: never Patient Tobacco Use Status: Current everyday Tobacco user Tobacco use type: Cigarette Cigarette Packs Per Day: 1 Cigarettes Per Day: 20.0 Years Smoked: 29 Second Hand Smoke Exposure: No service: No Current occupational status: unemployed and disabled Meds Allergies Allergy/AdvReac Type Severity Reaction Status Date / Time clarithromycin Allergy Intermediate FACIAL Verified 04/18/21 13:25 [CLARITHROMYCIN] SWELLING/REDNESS, facial rash, facial rash, facial rash, facial rash Active Medications: Current Medications Acetaminophen/Butalbital/Caffeine (Butalb/Acetamin/Caff 50/325/40 Tablet) 2 tab PO DAILY PRN PRN Reason: headache Last Admin: 10/21/21 21:51 Dose: 2 tab Documented by: Albuterol Sulfate (Albuterol Sulfate 90 Mcg 8 Gm Inhaler) 2 puff INHALE Q4H PRN PRN Reason: Shortness Of Breath Or Wheezing Albuterol Sulfate (Albuterol Sulfate (0.083%) 2.5 Mg/3 Ml Vial.Neb) 2.5 mg INHALE Q6H PRN PRN Reason: Shortness Of Breath Or Wheezing Apixaban (Apixaban 5 Mg Tablet) 5 mg PO BID COUNT INCLUDES THE [facility] Last Admin: 10/23/21 07:50 Dose: 5 mg Documented by: Bupropion HCl (Bupropion Hcl Xl 150 Mg Tab.Er.24h) 150 mg PO DAILY COUNT INCLUDES THE [facility] Last Admin: 10/23/21 07:49 Dose: 150 mg Documented by: Ferrous Sulfate (Ferrous Sulfate 324 Mg Tablet.Dr) 324 mg PO DAILY COUNT INCLUDES THE [facility] Last Admin: 10/23/21 07:49 Dose: 324 mg Documented by: Fluoxetine HCl (Fluoxetine Hcl 20 Mg Capsule) 40 mg PO DAILY COUNT INCLUDES THE [facility] Last Admin: 10/23/21 07:49 Dose: 40 mg Documented by: Fluticasone Propionate (Fluticasone Propionate 250 Mcg Blst.W.Dev) 1 puff INHALE RBID COUNT INCLUDES THE [facility] Last Admin: 10/23/21 09:22 Dose: 1 puff Documented by: Folic Acid (Folic Acid 1 Mg Tablet) 1 mg PO DAILY COUNT INCLUDES THE [facility] Last Admin: 10/23/21 07:50 Dose: 1 mg Documented by: Hydroxychloroquine Sulfate (Hydroxychloroquine Sulfate 200 Mg Tablet) 200 mg PO BID COUNT INCLUDES THE [facility] Last Admin: 10/23/21 07:49 Dose: 200 mg Documented by: Vancomycin HCl 750 mg/ Sodium (Chloride) 265 mls @ 265 mls/hr IV Q12H COUNT INCLUDES THE [facility] Last Infusion: 10/23/21 03:21 Dose: Infused Documented by: Levothyroxine Sodium (Levothyroxine Sodium 175 Mcg Tablet) 175 mcg PO DAILY@0600 COUNT INCLUDES THE [facility] Last Admin: 10/23/21 05:58 Dose: 175 mcg Documented by: Loratadine (Loratadine 10 Mg Tablet) 10 mg PO DAILY COUNT INCLUDES THE [facility] Last Admin: 10/23/21 07:50 Dose: 10 mg Documented by: Lorazepam (Lorazepam 1 Mg Tablet) 1 mg PO BID PRN PRN Reason: Anxiety Multivitamins/Vitamin C (Multivitamin Tablet) 1 tab PO DAILY COUNT INCLUDES THE [facility] Last Admin: 10/23/21 07:50 Dose: 1 tab Documented by: Nicotine (Nicotine 21 Mg Patch.Td24) 21 mg TRANSDERMA DAILY COUNT INCLUDES THE [facility] Last Admin: 10/23/21 07:50 Dose: 21 mg Documented by: Oxycodone HCl (Oxycodone Hcl Immed Release 5 Mg Tablet) 5 mg PO Q4H PRN PRN Reason: Pain, Mild (Pain Scale 1-3) Pharmacy Consult (Consult Rx Perform Med Rec) 1 each MISCELLANE ONCE PRN PRN Reason: Consult order Pharmacy Consult (Consult Rx Vancomycin Dosing) 1 each MISCELLANE DAILY PRN PRN Reason: Consult order Pravastatin Sodium (Pravastatin Sodium 40 Mg Tablet) 40 mg PO BEDTIME COUNT INCLUDES THE [facility] Last Admin: 10/22/21 21:00 Dose: 40 mg Documented by: Prednisone (Prednisone 5 Mg Tablet) 5 mg PO DAILY COUNT INCLUDES THE [facility] Last Admin: 10/23/21 07:50 Dose: 5 mg Documented by: Sodium Chloride (0.9 % Sodium Chloride Flush 3 Ml Syringe) 3 ml IVFLUSH QSHIFT COUNT INCLUDES THE [facility] Last Admin: 10/23/21 07:51 Dose: 3 ml Documented by: Sulfasalazine (Sulfasalazine 500 Mg Tablet) 500 mg PO BID COUNT INCLUDES THE [facility] Last Admin: 10/23/21 07:50 Dose: 500 mg Documented by: Tramadol HCl (Tramadol Hcl 50 Mg Tablet) 50 mg PO Q8H COUNT INCLUDES THE [facility] Last Admin: 10/23/21 03:23 Dose: 50 mg Documented by: Home Medications Medication Instructions Recorded Confirmed Last Taken Type lorazepam 1 mg tablet 1 mg PO BID PRN 08/15/20 10/21/21 08/30/20 History pravastatin 40 mg tablet 40 mg PO BEDTIME 08/15/20 10/21/21 08/30/20 History fluoxetine 40 mg capsule (Prozac) 40 mg PO DAILY 08/20/20 10/21/21 08/30/20 History albuterol sulfate 2.5 mg INHALATION Q6H PRN 08/31/20 10/21/21 08/30/20 History albuterol sulfate 90 mcg/actuation 2 puff INHALATION Q4H PRN 08/31/20 10/21/21 08/30/20 History aerosol inhaler bupropion HCl 100 mg tablet,12 hr 100 mg PO BID 08/31/20 10/21/21 08/30/20 History sustained-release wneswothts-ryufkthsstzrx-axocjbzb 2 tab PO DAILY PRN 08/31/20 10/21/21 08/30/20 History 50 mg-325 mg-40 mg tablet prednisone 5 mg tablet 5 mg PO DAILY 08/31/20 10/21/21 08/30/20 History nortriptyline 75 mg capsule 75 mg PO BEDTIME 04/18/21 10/21/21 Unknown History apixaban 5 mg tablet 5 mg PO BID 10/21/21 10/21/21 Unknown History fluticasone propionate 220 1 puff INHALATION BID 10/21/21 10/21/21 Unknown History mcg/actuation HFA aerosol inhaler (Flovent HFA) levothyroxine 175 mcg tablet 175 mcg PO DAILY 10/21/21 10/21/21 Unknown History loratadine 10 mg tablet 10 mg PO DAILY 10/21/21 10/21/21 Unknown History multivitamin 1 tab PO DAILY 10/21/21 10/21/21 Unknown History sulfasalazine 500 mg tablet 0.5 g PO BID 10/21/21 10/21/21 Unknown History tramadol 50 mg tablet 50 mg PO Q8H 10/21/21 10/21/21 Unknown History Physical Exam Vital Signs: Vital Signs: Last Vital Signs Temp 97.4 F 10/23/21 08:00 Pulse 75 10/23/21 08:00 Resp 17 10/23/21 08:00 BP 131/69 10/23/21 08:00 Pulse Ox 92 10/23/21 08:00 BMI result Body Mass Index 27.4 Const: General: cooperative, healthy appearing and comfortable Orientation/consciousness: oriented to person, oriented to place and oriented to time HENMT: Head: Yes normal to inspection Neck: Neck: Yes normal visual inspection Carotids: no bruits Chest: Chest palpation & inspection: normal inspection of the chest Resp: Effort & Inspection: normal respiratory effort and able to speak in complete sentences Auscultation: clear to auscultation bilaterally, no crackles, no rales, no rhonchi and no wheezes Cardio: Rate: regular rate Rhythm: regular rhythm Heart sounds: S1 normal heart sound present and S2 normal heart sound present Bruits: no carotid bruits Peripheral pulses: Peripheral pulses 2+ throughout GI: Inspection: Yes normal to inspection Skin: Wounds: no wounds Hair: normal Neuro: General: oriented to person, oriented to place and oriented to time Cranial nerves: Yes CN's II-XII intact bilaterally and Yes Normal hearing present Cognition (Neuro): normal cognition Motor exam (neuro): 5/5 motor strength present throughout Extrem: Other: venous exam: No significant superficial varicosities or spider telangiectasias, minimal edema General: No clubbing, No cyanosis and No edema Psych: Appearance: grossly normal Mental Status: mental status grossly normal Speech and movement: Normal speech and movement present Results Labs Result diagrams: 10/22/21 07:16 10/23/21 09:22 Labs: Abnormal lab results 10/23/21 Range/Units 09:22 Carbon Dioxide 30 H (22-29) mmol/L Anion Gap 9 L (12-20) Random Glucose 132 H (60-115) mg/dL BMP 10/23/21 09:22 Sodium 140 Potassium 4.4 Chloride 105 Carbon Dioxide 30 H BUN 10 Creatinine 0.73 Calcium 8.7 All other labs normal. Assessment and Plan (1) PAD (peripheral artery disease): Status: Acute In short patient developed cellulitis of the right lower extremity. Arterial testing most recently along with angiogram was within normal limits. She has been scheduled for routine surveillance follow-up by my office as well. She had a prior history venous testing as well. That was negative for any sign ificant venous insufficiency and most recent ultrasound was negative for DVT. She is stable from my perspective. She is scheduled for outpatient follow-up with me. Thank you for allowing us to assist in her care. If there are any questions or concerns please do not hesitate to contact us. Procedures Date of Service Date of Service: 10/23/21
--- NOTE | 2021-10-23 11:12 | PM.DS ---
DS: Providers Provider Date of Service: 10/23/21 Date of admission: 10/21/21 11:50 Primary care physician: Barbie Brown MD Consults: 10/21/21 12:15 Consult to Infectious Diseases Routine Consulting Provider: Karen Tabor Reason for consultation: right lower ext cellulitis -hx of lupus/RA-on steriods and plaqunil Has provider been notified: No 10/23/21 07:24 Consult to Vascular Surgery Routine Consulting Provider: Telly Rubio Reason for consultation: PVD / cellulitis Has provider been notified: No DS: Diagnosis Discharge Diagnosis (1) PAD (peripheral artery disease): Status: Acute DS: Summary Hospital Course Hospital Course: 46-year-old of female- with past medical history of? fibromyalgia, rheumatoid arthritis, Ram cyst, lupus on steroids and Plaquenil, history of CVA- came to the hospital because of? right lower leg? swelling and erythema,? found to have elevated WBC count and? DVT study negative for right lower leg. ? So admission was given for right lower leg cellulitis. ? Patient has erythema and swelling up to ankle but sparing the knee area and slight below the knee area. 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 above symptoms had got started. Hospital course:patient came with leg swelling and cellulitis: started on IV antibiotic, seems to be improving, seen by infectious disease and vascular: Since patient is improving will switch the patient on p.o. antibiotics and further management outpatient with PCP.Please check CBC, BMP, LFTs in 1 week with PCP. Above management discussed with the patient in detail length she understand and in agreement with the above plan, time spent 50 minutes and 50% time spent on counseling. Significant findings: As above. Procedures performed: None. Treatment and response: As above. Complications: None. the Time Spent with Patient Time attestation: Total time spent providing and/or coordinating discharge services: Discharge coordination time: Greater than 30 minutes Quality: Stroke Does the patient have a stroke diagnosis?: No Physical Exam Vital Signs: Vital Signs: Last Vital Signs Temp 97.4 F 10/23/21 08:00 Pulse 75 10/23/21 08:00 Resp 17 10/23/21 08:00 BP 131/69 10/23/21 08:00 Pulse Ox 92 10/23/21 08:00 BMI result Body Mass Index 27.4 Appearance:? Alert oriented x3 but wants to sleep says that she did not sleep the whole night. Eyes: Pupils equal, round and reactive to light.? Sclera nonicteric.? ENT: Pharynx normal.? Moist mucous membranes. cvs: rrr, [id number] , no murmur res: clear to auscultation ,no rhonchii or wheezing abd: no rebound or guarding ,nt, bs present. ext pulses present ,? ? Right leg erythema/ swelling improved. ?not significant knee need swelling or pain or erythema. neuro: axo3 , nonfocal. DS: Data Data Completed and Pending Completed studies during hospitalization [Text1]: Procedures Excision of Left Lower Leg Subcutaneous Tissue and Fascia, Open Approach, Diagnostic (08/31/20) Labs on day of discharge: Laboratory Results - last 24 hr 10/22/21 10/23/21 22:05 09:22 Sodium 140 Potassium 4.4 Chloride 105 Carbon Dioxide 30 H Anion Gap 9 L BUN 10 Creatinine 0.73 Estim Creat Clear Calc 88.9 Estimated GFR > 60 Random Glucose 132 H Calcium 8.7 Vancomycin Trough 20.0 Preliminary micro results at discharge 10/21/21 08:54 Blood Culture - Preliminary Blood - Venous No growth after 48 hours. 10/21/21 08:51 Blood Culture - Preliminary Blood - Venous No growth after 48 hours. Additional Comments Additional comments: venous dupplex:IMPRESSION: No DVT demonstrated in the right lower extremity. Suprapatellar joint effusion. 5.3 cm Ram's cyst. Discharge Plan Discharge Patient Disposition: Home, Self-Care Discharge Diagnosis: cellulitis Referrals: Barbie Dunn MD [Primary Care Provider] - 1 Week Discharge Medications: New doxycycline hyclate 100 mg tablet 100 mg PO BID Qty: 18 RF: 0 Continued ferrous sulfate [FeroSul] 325 mg (65 mg iron) tablet 325 mg PO DAILY Qty: 30 RF: 3 folic acid 1 mg tablet 1 mg PO DAILY Qty: 30 RF: 3 hydroxychloroquine 200 mg tablet 200 mg PO BID Qty: 60 RF: 3 albuterol sulfate 2.5 mg /3 mL (0.083 %) solution for nebulization 2.5 mg inhalation Q6H PRN (Reason: Shortness Of Breath Or Wheezing) RF: 0 prednisone 5 mg tablet 5 mg PO DAILY RF: 0 bupropion HCl 100 mg tablet sustained-release 12 hr 100 mg PO BID RF: 0 ijmachnueq-qewlccgkpknpu-znhy 50-325-40 mg tablet 2 tab PO DAILY PRN (Reason: headache) RF: 0 albuterol sulfate 90 mcg/actuation HFA aerosol inhaler 2 puff inhalation Q4H PRN (Reason: Shortness Of Breath Or Wheezing) RF: 0 tramadol 50 mg Tablet 50 mg PO Q8H RF: 0 sulfasalazine 500 mg Tablet 0.5 g PO BID RF: 0 loratadine 10 mg Tablet 10 mg PO DAILY RF: 0 multivitamin Tablet 1 tab PO DAILY RF: 0 Flovent HFA 220 mcg/actuation Hfa Aerosol Inhaler 1 puff INHALATION BID RF: 0 apixaban 5 mg Tablet 5 mg PO BID RF: 0 levothyroxine 175 mcg Tablet 175 mcg PO DAILY RF: 0 fluoxetine [Prozac] 40 mg capsule 40 mg PO DAILY RF: 0 lorazepam 1 mg tablet 1 mg PO BID PRN (Reason: Anxiety) RF: 0 pravastatin 40 mg tablet 40 mg PO BEDTIME RF: 0 Discharge Orders: Discharge Order (Routine); Ordered 10/23/21 Ordered By: Bonnie Cheema Diet: advance to usual diet Activity on Discharge: As tolerated Stand Alone Forms: Patient Portal Discharge page Care Plan Goals: patient came with leg swelling and cellulitis: started on IV antibiotic, seems to be improving, seen by infectious disease and vascular: Since patient is improving will switch the patient on p.o. antibiotics and further management outpatient with PCP. Please check CBC, BMP, LFTs in 1 week with PCP. Health Concerns: As above. Plan of Treatment: as above. Assessment: As above.
[2021-10-23 12:00] VITALS: BP 140/88; PULSE 85; RESP 18; TEMP 36.5; O2SAT 95
== END 2021-10-23 14:22 | disposition home or self-care (01) ==
LOC: HO.ED 11:06 → HO.EDOVER 11:57 → HO.S3 10-22 11:46
PROVIDERS: Admitting Provider Internal Medicine; Emergency Provider Emergency Medicine; PCP Family Medicine; Visit Provider Internal Medicine
DX: L03.115 Cellulitis of right lower limb (principal); I73.9 Peripheral vascular disease, unspecified; I83.11 Varicose veins of right lower extremity with inflammation; M25.461 Effusion, right knee; M71.21 Synovial cyst of popliteal space [Baker], right knee; M79.7 Fibromyalgia; M32.9 Systemic lupus erythematosus, unspecified; M06.9 Rheumatoid arthritis, unspecified; R80.9 Proteinuria, unspecified; E03.9 Hypothyroidism, unspecified; F17.210 Nicotine dependence, cigarettes, uncomplicated; Z23 Encounter for immunization; Z20.822 Contact with and (suspected) exposure to COVID-19; Z86.73 Personal history of transient ischemic attack (TIA), and cerebral infarction without residual deficits; Z90.49 Acquired absence of other specified parts of digestive tract; Z80.1 Family history of malignant neoplasm of trachea, bronchus and lung; Z88.1 Allergy status to other antibiotic agents; Z79.52 Long term (current) use of systemic steroids; Z79.899 Other long term (current) drug therapy
CPT/HCPCS: 36415; 80048; 80053; 80202; 85025; 85027; 85652; 87040; 87635; 90471; 90686; 93971; 96365; 96366; 96367; 99218; 99285; J0696; J3370

== ENCOUNTER 2021-11-25 07:09 | Inpatient (IN) | payer MEDICARE, MEDICAID, SELFPAY ==
[2021-11-25] VITALS (8 sets, daily range): BP systolic 108–144; BP diastolic 61–86; PULSE 88–111; RESP 16–30; TEMP 36.4–37.2; O2SAT 66–96; BMI 27.4
--- NOTE | ~2021-11-25 | CT_ITS ---
EXAMINATION: CT ABDOMEN AND PELVIS WITHOUT CONTRAST CLINICAL INFORMATION: Increasing LFTs COMPARISON: CTA chest 11/26/2021 TECHNIQUE: Multidetector volumetric imaging was performed from the superior aspect of the liver through the pubic symphysis. Sagittal and coronal reformatted images were obtained on the technologist's workstation. This CT examination was performed using dose optimization techniques as appropriate, variously including the following: *Automated exposure control *Adjustment of mA and/or kV according to patient size (this includes techniques or standardized protocols for targeted exams where dose is matched to indication/reason for exam; i.e. extremities or head) *Use of iterative reconstruction technique DLP: 768 mGy-cm FINDINGS: LUNG BASES: There is diffuse bilateral lower lobe, lingular and right middle lobe airspace disease likely infiltrate similar to previous study of 11/26/2021. Heart size is mildly enlarged. There is an enteric tube with its tip in the stomach. LIVER, GALLBLADDER, AND BILIARY TREE: The liver is mildly enlarged in size in size, normal shape, and attenuation. No focal hepatic lesion or biliary ductal dilatation is present. The gallbladder has been surgically removed. PANCREAS: Unremarkable. SPLEEN: The spleen is enlarged measuring 16.0 cm in length. ADRENAL GLANDS: Unremarkable. KIDNEYS AND URETERS: The kidneys are normal in size, shape, and attenuation. No hydronephrosis, hydroureter, or calculi seen. No perinephric stranding. BLADDER: The bladder is decompressed with a Lara's catheter within. There is mild bladder wall thickening, GASTROINTESTINAL TRACT: The small and large bowel are unremarkable. The appendix is unremarkable. ABDOMINAL WALL: A small umbilical hernia containing fat is noted. LYMPH NODES: Normal. VASCULAR: There is mild arthrosclerotic calcification of the abdominal aorta and common iliac artery vessels. PELVIC VISCERA: There is no free fluid. No abnormal pelvic lymph nodes. The uterus is anteverted and appears unremarkable. There are several phleboliths in the pelvis and buttock region. OSSEOUS STRUCTURES: No lytic or sclerotic process seen. There are old healed bilateral lower rib fractures. CT/CT abdomen pelvis wo con IMPRESSION: 1. No significant change in bilateral lower lobe, lingula and right middle lobe airspace disease compared to 11/26/2021 CTA chest. 2. On this nonenhanced CT, visualized liver and the solid organs are unremarkable except for mild hepatosplenomegaly. 3. Enteric tube and Lara's catheter are noted in good position. 4. There is no acute process seen in the abdomen or pelvis. Fleischner guidelines were followed.
--- NOTE | ~2021-11-25 | XR_ITS ---
EXAMINATION: XR CHEST CLINICAL INFORMATION: Endotracheal tube/OG tube placement. COMPARISON: 12/04/2021 TECHNIQUE: Frontal view of the chest was obtained. FINDINGS: Endotracheal tube terminates 2.5 cm above the charisse. Enteric tube extends into the stomach with the tip beyond the [id number] of this study. Right internal jugular central venous catheter terminates over the mid SVC. Cardiac leads overlie the chest. The lungs are well expanded. Diffuse patchy bilateral airspace opacities are present. These are similar to prior when given differences in technique. No pleural effusion or pneumothorax. The cardiomediastinal silhouette is within normal limits. XR/XR chest 1V IMPRESSION: Endotracheal tube terminates 2.5 cm above the charisse. Enteric tube extends into the stomach. Similar diffuse bilateral airspace opacities.
--- NOTE | ~2021-11-25 | XR_ITS ---
EXAMINATION: XR CHEST CLINICAL INFORMATION: Hypoxia COMPARISON: Chest radiograph earlier today at 6:14 AM TECHNIQUE: Frontal view of the chest was obtained. FINDINGS: An ET tube remains in place 4.4 cm above the charisse. Right IJ line with tip in distal SVC. With sidehole at GE junction. This should probably be advanced. Diffuse airspace opacities are again seen, more marked in the lower lobes. XR/XR chest 1V IMPRESSION: No significant interval change from the study this morning.
--- NOTE | ~2021-11-25 | XR_ITS ---
EXAMINATION: XR CHEST CLINICAL INFORMATION: Desaturation COMPARISON: 12/03/2021 TECHNIQUE: Frontal view of the chest was obtained. FINDINGS: Endotracheal tube terminates 5 cm above the charisse. Enteric tube terminates in the stomach. The lungs are well expanded. Patchy bilateral airspace opacities are seen throughout both lungs. These are similar to prior imaging given differences in technique. No effusion. No pneumothorax. The cardiomediastinal silhouette is unchanged. XR/XR chest 1V IMPRESSION: Endotracheal tube terminating 5 cm above the charisse. Multifocal airspace opacities throughout both lungs are similar to prior imaging.
--- NOTE | ~2021-11-25 | CT_ITS ---
EXAMINATION: CT ANGIOGRAM OF THE CHEST WITH AND WITHOUT CONTRAST (CT PULMONARY ANGIOGRAM FOR PE) CLINICAL INFORMATION: Elevated d-dimer. Hypoxia. COMPARISON: Chest x-ray 11/25/2021 and CTA chest 05/23/2020 TECHNIQUE: Prior to contrast administration, noncontrast localization images were obtained. Subsequently, multidetector volumetric imaging was performed from the thoracic inlet to below the diaphragms following the administration of 65 mL Omnipaque 350 intravenous contrast. No contrast reaction reported Sagittal, coronal, and MIP oblique sagittal reformatted images were obtained on the CT workstation, uploaded to PACS, and reviewed. This CT examination was performed using dose optimization techniques as appropriate, variously including the following: *Automated exposure control *Adjustment of mA and/or kV according to patient size (this includes techniques or standardized protocols for targeted exams where dose is matched to indication/reason for exam; i.e. extremities or head) *Use of iterative reconstruction technique Total exam dose-length product 328 mGy-cm FINDINGS: No filling defect identified within the main or segmental pulmonary arteries. Subsegmental pulmonary arteries are suboptimally evaluated due to extensive bilateral airspace disease. The heart is at the upper limits of normal in size. There is no pericardial effusion. Enlarged mediastinal and hilar lymph nodes are present, for example there is a right precarinal node which measures approximately 3 cm in brain dimension. Central airways are patent. Extensive bilateral predominantly groundglass airspace disease is noted with more consolidative changes involving both lower lobes. There is associated bronchiectasis. No pleural effusion present. No pneumothorax. Visualized portions of the upper abdomen are grossly unremarkable. The spleen is only partially visualized but appears enlarged. Several old right-sided rib fractures, a few of which are incompletely healed. CT/CT angio chest PE protocol IMPRESSION: 1. No filling defect identified within the main or segmental pulmonary arteries. Subsegmental pulmonary arteries are suboptimally evaluated due to extensive bilateral airspace disease. 2. Extensive bilateral airspace disease most consistent with infection. Mediastinal lymphadenopathy is nonspecific but likely reactive in nature. VTE: negative
--- NOTE | ~2021-11-25 | US_ITS ---
EXAMINATION: US ABDOMEN LIMITED CLINICAL INFORMATION: Increasing liver function. COMPARISON: Previous abdominal ultrasound and CT of the abdomen and pelvis May 2018 TECHNIQUE: Real-time imaging of the right upper quadrant abdominal viscera. FINDINGS: PANCREAS: Not well visualized due to bowel gas. LIVER: The liver is enlarged. Liver echotexture is slightly heterogeneous. The contour of the liver may be slightly irregular or scalloped questionable for mild cirrhotic change. There are 2 hyperechoic lesions in the liver measuring 1.4 x 1.5 x 1.3 cm and 1.9 x 1.8 x 1.6 cm in the right lobe of the liver. These are similar to prior exam. There is mild intrahepatic biliary duct dilatation. This is similar to previous exam. The main portal vein, portal splenic confluence, hepatic veins and IVC appear prominent. GALLBLADDER: Surgically removed COMMON BILE DUCT: The common bile duct is not dilated measuring up to 1.1 cm. This is unchanged. RIGHT KIDNEY: There may be an extrarenal pelvis. No hydronephrosis. No renal calculi or focal parenchymal lesions. The kidney measures 12.5 cm in maximum dimension. FREE FLUID: None. US/US abdomen limited IMPRESSION: Enlarged heterogeneous appearing liver. Mild intra and extrahepatic biliary duct dilatation. 2 stable small hyperechoic lesion in the right lobe of the liver. These findings are similar to previous ultrasound from 2018. Limited visualization of the pancreas.
--- NOTE | ~2021-11-25 | XR_ITS ---
EXAMINATION: XR CHEST CLINICAL INFORMATION: Shortness of breath. COVID. COMPARISON: Most recent CTA chest dated 05/23/2020. TECHNIQUE: Frontal view of the chest was obtained. FINDINGS: Diffuse, prominent bilateral patchy airspace opacities, consistent with multifocal pneumonia. No pleural effusion or pneumothorax. Stable cardiomediastinal silhouette. No acute osseous abnormality. XR/XR chest 1V IMPRESSION: Prominent patchy bilateral airspace opacities, which can be seen in the setting of infection or inflammatory process, including viral pneumonia.
--- NOTE | ~2021-11-25 | XR_ITS ---
EXAMINATION: XR CHEST CLINICAL INFORMATION: New temperature elevation COMPARISON: November 27, 2021 TECHNIQUE: AP portable view of the chest was obtained. FINDINGS: Endotracheal tube tip is approximately 5 cm above the charisse. Enteric catheter seen traversing to the stomach. There is no significant change in diffuse interstitial and airspace disease seen bilaterally. The cardiopericardial silhouette is enlarged. No significant pleural effusion is seen. Multiple old right-sided rib fractures evident. XR/XR chest 1V IMPRESSION: Stable appearance of diffuse interstitial and airspace disease. Endotracheal tube tip approximately 5 cm above the charisse.
--- NOTE | ~2021-11-25 | XR_ITS ---
EXAMINATION: XR CHEST CLINICAL INFORMATION: Orogastric tube placement COMPARISON: Portable chest radiographs 122, 12/04/2021, 12/03/2021 TECHNIQUE: Portable upright AP view of the chest was obtained. FINDINGS: ET tube is approximately 3.8 cm above charisse. Right internal jugular central venous line tip at region distal SVC. The orogastric tube is in abdomen with sidehole overlying proximal stomach. There is no pneumothorax or pneumomediastinum. Bilateral patchy airspace opacities are similar in distribution and severity to prior study 12/05/2021. No effusion. XR/XR chest 1V IMPRESSION: 1. ET tube 3.8 cm above charisse. Right IJ distal SVC. OG tube in abdomen. 2. Diffuse bilateral airspace opacities similar to prior exam 12/05/2021.
--- NOTE | ~2021-11-25 | XR_ITS ---
EXAMINATION: XR CHEST CLINICAL INFORMATION: Follow up COVID pneumonia. COMPARISON: Multiple previous chest imaging studies with the last chest x-ray of 11/30/[address] of 11/26/2021. TECHNIQUE: Frontal view of the chest was obtained. FINDINGS: An endotracheal tube terminates approximately 4.1 cm above the charisse. An enteric tube courses below the diaphragm, the tip of the tube is in the proximal stomach with side port of the catheter in the region of gastric cardia, mild advancement of the tube may be considered. Multiple cardiac leads and wires overlie the chest. Cardiomediastinal silhouette is unchanged. Diffuse interstitial, ground-glass and patchy airspace opacities, right greater than left, are again noted. No significant pleural effusions or pneumothorax. Pre-existing bilateral rib fracture deformities are again noted. XR/XR chest 1V IMPRESSION: No significant interval change is noted in the bilateral pulmonary parenchymal airspace, interstitial and ground-glass opacities, compared to chest x-ray of 11/30/2021. Endotracheal tube terminates 4.1 cm above the charisse. No pneumothorax.
--- NOTE | ~2021-11-25 | XR_ITS ---
EXAMINATION: XR CHEST CLINICAL INFORMATION: Intubation COMPARISON: Previous chest x-ray 11/25/[address] a 11/26/2021 TECHNIQUE: Frontal view of the chest was obtained. FINDINGS: There is a new endotracheal tube with tip 5 cm above the charisse. There is a nasogastric tube projects over the stomach. The cardiac and mediastinal contours are stable. There is bilateral multilobar airspace disease suggestive of pneumonia. This is greatest at the right lung base. This does not appear appreciably changed from yesterday's CT scan. There is no pleural effusion or pneumothorax. There are old right-sided rib fractures. No acute bone abnormality is seen. XR/XR chest 1V IMPRESSION: Endotracheal tube tip 5 cm above the charisse. Nasogastric tube projects over the stomach. No change in bilateral multilobar airspace disease probably representing pneumonia.
--- NOTE | ~2021-11-25 | XR_ITS ---
EXAMINATION: XR CHEST CLINICAL INFORMATION: Tube placement. COMPARISON: 11/27/2021 portable chest. TECHNIQUE: Frontal view of the chest was obtained. FINDINGS: Support devices: Endotracheal tube tip is positioned approximately 4 cm proximal to charisse. Enteric tube tip in side-port are seen below the left hemidiaphragm. The side-port is at or just distal to the gastroesophageal junction. Bilateral patchy infiltrates are seen without significant change. The heart and mediastinal structures are unremarkable XR/XR chest 1V IMPRESSION: 1. Support devices as detailed above. The enteric tube could be advanced approximately 3 cm. 2. Persistent bilateral patchy pulmonary infiltrates without significant change.
--- NOTE | ~2021-11-25 | XR_ITS ---
EXAMINATION: XR CHEST CLINICAL INFORMATION: confirm placement TLC RIJ COMPARISON: None TECHNIQUE: Frontal portable view of the chest was obtained. 2121 hours FINDINGS: Tubes and lines: 1. Endotracheal tube catheter 5 cm above the charisse. 2. Right IJ catheter tip at caval atrial junction in superior vena cava. 3. Gastric tube tip in stomach. Extensive bilateral airspace opacities similar to prior chest x-ray 12/02/2021 XR/XR chest 1V IMPRESSION: 1. Endotracheal tube catheter 5 cm above the charisse. 2. Right IJ catheter tip at caval atrial junction in superior vena cava. 3. Gastric tube tip in stomach. 4. Persistent extensive bilateral airspace disease.
--- NOTE | 2021-11-25 07:43 | ED_ITS ---
HPI - SOB/Dyspnea General Chief Complaint: Dyspnea Stated Complaint: covid Time Seen by Provider: 11/25/21 07:40 Source: patient Mode of arrival: EMS Limitations: no limitations History of Present Illness HPI Narrative: Patient with history of COPD on chronic prednisone treatment been more short of breath and not feeling good for last few days tested for COVID at home which was positive no fever no chills also complaining of increased cough with mucopurulent phlegm for last few days on arrival patient was saturating 88% at room air patient is not on oxygen at home. No chest pain or increased leg swelling Related Data Home Medications Medication Instructions Recorded Confirmed lorazepam 1 mg tablet 1 mg PO BID PRN 08/15/20 11/25/21 pravastatin 40 mg tablet 40 mg PO BEDTIME 08/15/20 11/25/21 fluoxetine 40 mg capsule (Prozac) 40 mg PO DAILY 08/20/20 11/25/21 albuterol sulfate 2.5 mg INHALATION Q6H PRN 08/31/20 11/25/21 albuterol sulfate 90 mcg/actuation 2 puff INHALATION Q4H PRN 08/31/20 11/25/21 aerosol inhaler bupropion HCl 100 mg tablet,12 hr 100 mg PO BID 08/31/20 11/25/21 sustained-release cqyxudvoad-ryevckoywzfwz-oyttysbd 2 tab PO DAILY PRN 08/31/20 11/25/21 50 mg-325 mg-40 mg tablet prednisone 5 mg tablet 5 mg PO DAILY 08/31/20 11/25/21 nortriptyline 75 mg capsule 75 mg PO BEDTIME 04/18/21 11/25/21 apixaban 5 mg tablet 5 mg PO BID 10/21/21 11/25/21 fluticasone propionate 220 1 puff INHALATION BID 10/21/21 11/25/21 mcg/actuation HFA aerosol inhaler (Flovent HFA) levothyroxine 175 mcg tablet 175 mcg PO DAILY 10/21/21 11/25/21 loratadine 10 mg tablet 10 mg PO DAILY 10/21/21 11/25/21 multivitamin 1 tab PO DAILY 10/21/21 11/25/21 sulfasalazine 500 mg tablet 500 mg PO BID 10/21/21 11/25/21 tramadol 50 mg tablet 50 mg PO Q8H 10/21/21 11/25/21 Previous Rx's Medication Instructions Recorded folic acid 1 mg tablet 1 mg PO DAILY #30 tab 05/16/21 hydroxychloroquine 200 mg tablet 200 mg PO BID #60 tab 05/16/21 Allergies Allergy/AdvReac Type Severity Reaction Status Date / Time clarithromycin Allergy Intermediate FACIAL Verified 04/18/21 13:25 [CLARITHROMYCIN] SWELLING/REDNESS, facial rash, facial rash, facial rash, facial rash Review of Systems Review of Systems: Yes all other systems are reviewed and are negative [facility] Past Medical History Medical History CVA (cerebral vascular accident) Fibromyalgia Hypothyroid Lupus PAD (peripheral artery disease) Proteinuria Rheumatoid arthritis Varicose veins of right lower extremity with inflammation Surgical History History of breast lump/mass excision History of bunionectomy History of cholecystectomy History of excision of mass History of partial hysterectomy Family History Family History Father No problems noted. 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) Alcohol intake: never Patient Tobacco Use Status: Current everyday Tobacco user Tobacco use type: Cigarette Cigarette Packs Per Day: 1 Cigarettes Per Day: 20.0 Years Smoked: 29 Second Hand Smoke Exposure: No Advance Directives: No Advance Directives Information Provided: No service: No Current occupational status: unemployed and disabled Physical Exam Vital Signs: Vital Signs: Last Vital Signs Temp 98.2 F 11/25/21 13:41 Pulse 111 H 11/25/21 13:41 Resp 20 11/25/21 13:41 BP 116/65 11/25/21 13:41 Pulse Ox 87 L 11/25/21 13:41 Oxygen Flow Rate 4 11/25/21 07:42 BMI result Body Mass Index 27.4 Appearance: Alert. Oriented X3. No acute distress. Eyes: No pallor icterus ENT: Pharynx normal. Oral Mucosa moist Neck: Normal inspection. Neck supple. CVS: Normal heart rate and rhythm. Pulses normal. Respiratory: Mild respiratory distress. Bilateral crackles diffuse air entry bilateral, prolonged expiration no wheezing or rhonchi Abdomen: Soft and nontender. Bowel sounds are present, no mass palpable, Skin: Skin warm and dry. Normal skin color. Normal skin turgor. Extremities: No lower extremity edema. No calf tenderness Neuro: Oriented X 3. MDM - SOB/Dyspnea MDM Narrative Medical decision making narrative: Patient's COPD with COVID-19 and hypoxia with significant bilateral infiltrate likely from COVID will give antibiotic Rocephin possibly she has bronchitis along with COVID-19 Differential Diagnosis Differential diagnosis: Likely acute exacerbation of chronic obstructive airways disease Medical Records Attestation: I reviewed the patient's medical records. Lab Data Attestation: I reviewed the patient's lab results. Result diagrams: 11/25/21 08:22 11/25/21 08:22 Labs: Lab Results 11/25/21 11/25/21 11/25/21 Range/Units 08:22 08:22 08:22 WBC 15.9 H (4.8-10.8) X10*3/uL RBC 4.46 (4.20-5.50) X10*6/uL Hgb 10.3 L (12.0-16.0) g/dl Hct 34.0 L (37.0-47.0) % MCV 76.2 L (80.0-98.0) fL MCH 23.1 L (27.0-33.0) pg MCHC 30.3 L (31.0-35.0) g/dl RDW 14.5 (11.0-16.0) % Plt Count 440 H D (160-400) X10*3/uL MPV 9.1 L (9.4-12.3) fL Immature Gran % (Auto) 2.6 H (0.0-0.4) % Neut % (Auto) 79.9 H (45-73) % Lymph % (Auto) 8.0 L (20-40) % [place] % (Auto) 7.9 (2-11) % Eos % (Auto) 1.3 (0-4) % Baso % (Auto) 0.3 (0-2) % Lymph # (Auto) 1.3 (1.2-4.9) X10*3/uL [place] # (Auto) 1.3 H (0.1-1.2) X10*3/uL Eos # (Auto) 0.2 (0.0-0.4) X10*3/uL Baso # (Auto) 0.1 (0.0-0.2) X10*3/uL Abs Immat Gran (auto) 0.42 H (0.00-0.03) X10*3/uL Absolute Neuts (auto) 12.7 H (2.0-8.3) x10*3/uL Absolute Nucleated RBC 0.020 H (0.0-0.012) X10*3/uL Nucleated RBC % (auto) 0.1 (0.0-0.2) /100WBC PT 47.6 H (9.9-13.0) SEC INR 4.1 H (0.9-1.1) APTT 58.6 H (24.1-38.0) SEC D-Dimer High Sensitivty 672 NG/ML Sodium 138 (135-145) mmol/L Potassium 3.7 (3.3-5.1) mmol/L Chloride 97 (96-108) mmol/L Carbon Dioxide 29 (22-29) mmol/L Anion Gap 16 (12-20) BUN 15 (9-16) mg/dL Creatinine 0.79 (0.5-1.4) mg/dL Estim Creat Clear Calc 82.1 Estimated GFR > 60 Random Glucose 102 (60-115) mg/dL Lactic Acid (0.5-2.0) mmol/L Calcium 8.3 L (8.4-10.2) mg/dL Total Bilirubin 0.3 (0.0-1.0) mg/dL AST 29 (5-31) U/L ALT 14 (0-31) U/L Alkaline Phosphatase 431 H D (39-117) U/L Total Protein 5.8 L (6.5-8.0) g/dL Albumin 2.7 L D (3.5-5.0) g/dL COVID-19 ([facility]) (Negative) COVID-19 Clin Com 11/25/21 11/25/21 Range/Units 08:22 08:22 WBC (4.8-10.8) X10*3/uL RBC (4.20-5.50) X10*6/uL Hgb (12.0-16.0) g/dl Hct (37.0-47.0) % MCV (80.0-98.0) fL MCH (27.0-33.0) pg MCHC (31.0-35.0) g/dl RDW (11.0-16.0) % Plt Count (160-400) X10*3/uL MPV (9.4-12.3) fL Immature Gran % (Auto) (0.0-0.4) % Neut % (Auto) (45-73) % Lymph % (Auto) (20-40) % [place] % (Auto) (2-11) % Eos % (Auto) (0-4) % Baso % (Auto) (0-2) % Lymph # (Auto) (1.2-4.9) X10*3/uL [place] # (Auto) (0.1-1.2) X10*3/uL Eos # (Auto) (0.0-0.4) X10*3/uL Baso # (Auto) (0.0-0.2) X10*3/uL Abs Immat Gran (auto) (0.00-0.03) X10*3/uL Absolute Neuts (auto) (2.0-8.3) x10*3/uL Absolute Nucleated RBC (0.0-0.012) X10*3/uL Nucleated RBC % (auto) (0.0-0.2) /100WBC PT (9.9-13.0) SEC INR (0.9-1.1) APTT (24.1-38.0) SEC D-Dimer High Sensitivty NG/ML Sodium (135-145) mmol/L Potassium (3.3-5.1) mmol/L Chloride (96-108) mmol/L Carbon Dioxide (22-29) mmol/L Anion Gap (12-20) BUN (9-16) mg/dL Creatinine (0.5-1.4) mg/dL Estim Creat Clear Calc Estimated GFR Random Glucose (60-115) mg/dL Lactic Acid 1.6 (0.5-2.0) mmol/L Calcium (8.4-10.2) mg/dL Total Bilirubin (0.0-1.0) mg/dL AST (5-31) U/L ALT (0-31) U/L Alkaline Phosphatase (39-117) U/L Total Protein (6.5-8.0) g/dL Albumin (3.5-5.0) g/dL COVID-19 ([facility]) Positive A (Negative) COVID-19 Clin Com See Note Discharge Plan Discharge Clinical Impression: Acute hypoxemic respiratory failure due to COVID-19, Cellulitis of right leg, Acute exacerbation of chronic obstructive airways disease Ulcer of lower extremity Qualifiers: Laterality: right Non-pressure ulcer stage: with fat layer exposed Qualified Code(s): L97.912 - Non-pressure chronic ulcer of unspecified part of right lower leg with fat layer exposed Patient Disposition: Admitted As Inpatient
[2021-11-25 08:31] LABS: MANUAL DIFF FLAG NO
[2021-11-25 08:33] LABS: Basophils Absolute Auto 0.1 X10*3/uL (0.0-0.2); Basophils Percent Auto 0.3 % (0-2); Eosinophils Absolute Auto 0.2 X10*3/uL (0.0-0.4); Eosinophils Percent Auto 1.3 % (0-4); Hemoglobin 10.3 g/dl (12.0-16.0); Imm Gran Abs Auto 0.42 X10*3/uL (0.00-0.03); Imm Gran Pct Auto 2.6 % (0.0-0.4); Lymphocytes Absolute Auto 1.3 X10*3/uL (1.2-4.9); Mean Corpuscular HGB Conc 30.3 g/dl (31.0-35.0); Mean Corpuscular Hemoglobin 23.1 pg (27.0-33.0); Mean Corpuscular Volume 76.2 fL (80.0-98.0); Mean Platelet Volume 9.1 fL (9.4-12.3); Monocytes Absolute Auto 1.3 X10*3/uL (0.1-1.2); Monocytes Percent Auto 7.9 % (2-11); NRBC Pct Auto 0.1 /100WBC (0.0-0.2); Neutrophils Absolute Auto 12.7 x10*3/uL (2.0-8.3); Neutrophils Percent Auto 79.9 % (45-73); Platelet Count 440 X10*3/uL (160-400); Red Blood Count 4.46 X10*6/uL (4.20-5.50); Red Cell Distribution Width 14.5 % (11.0-16.0); White Blood Count 15.9 X10*3/uL (4.8-10.8)
[2021-11-25] MEDS: Albuterol/Iprat 2.5/0.5MG 3 ML AMPUL.NEB INHALE (08:38)
[2021-11-25 08:39] LABS: INTERNATIONAL NORM RATIO 4.1 (0.9-1.1); Prothrombin Time 47.6 SEC (9.9-13.0)
[2021-11-25 08:41] LABS: D Dimer High Sensitivity 672 NG/ML; Partial Thromboplastin Time 58.6 SEC (24.1-38.0)
[2021-11-25 08:43] LABS: COVID-19 Test Positive (Negative)
[2021-11-25 08:44] LABS: Lactic Acid 1.6 mmol/L (0.5-2.0)
[2021-11-25] MEDS: dexAMETHasone sod phosphate 4 MG/ML VIAL 6 MG IVPUSH (08:52)
[2021-11-25 09:05] LABS: Alanine Aminotransferase 14 U/L (0-31); Albumin Level 2.7 g/dL (3.5-5.0); Alkaline Phosphatase 431 U/L (39-117); Anion Gap 16 (12-20); Aspartate Amino Transferase 29 U/L (5-31); Bilirubin Total 0.3 mg/dL (0.0-1.0); Blood Urea Nitrogen 15 mg/dL (9-16); Calcium 8.3 mg/dL (8.4-10.2); Carbon Dioxide 29 mmol/L (22-29); Chloride 97 mmol/L (96-108); Creatinine Clr Calc Pharmacy 82.1; Estimated Glomerular Filt Rate > 60; Glucose Random 102 mg/dL (60-115); Potassium 3.7 mmol/L (3.3-5.1); Sodium 138 mmol/L (135-145); Total Protein 5.8 g/dL (6.5-8.0)
[2021-11-25] MEDS: cefTRIAXone sodium 1 GM in 0.9 % Sodium Chloride 50 ML IV (11:07)
--- NOTE | 2021-11-25 13:32 | P.HPHOSP_ITS ---
History of Present Illness Date of Service: 11/25/21 <April Jeff NP - Last Filed: 11/26/21 17:49> Chief Complaint: Shortness of breath <April Jeff NP - Last Filed: 11/26/21 17:49> 46 year old women presenting with increased shortness of breath over the last few days. She is on chronic steroids due to history lupus and rheumatoid arthritis. She took a home test several days ago and was positive for COVID-19. She has been having increased cough with purulent phlegm. In the ER she was noted to have an oxygen saturation of 80% on room air. She denied fever, chills, nausea, vomiting, diarrhea. White blood cell count elevated at 15.9. Her oxygen saturation went down to 87% and she was placed on oxygen. Chest x- ray showed prominent patchy bilateral airspace opacities. In the ER she was given a dose of ceftriaxone, Decadron, albuterol. she will be admitted for further med management and treatment of acute hypoxic respiratory failure secondary to COVID-19 <April Jeff NP - Last Filed: 11/26/21 17:49> Review of Systems Verdana 4l Review of Systems: Verdana 4d Verdana 4d Denies any recent fever chills or decrease in appetite respiratory See HPI cardiovascular Denies chest pain gastrointestinal denies any dysphagia abdominal pain nausea vomiting or diarrhea genitourinary denies any dysuria frequency or hematuria musculoskeletal denies any joint pain or swelling neuropsych denies any weakness or seizures all other systems reviewed are negative <April Jeff NP - Last Filed: 11/26/21 17:49> [facility] Medical History: Medical History (Updated 12/06/21 @ 13:00 by Antoni Magdaleno MD) CVA (cerebral vascular accident) Fibromyalgia Hypothyroid Immunosuppression due to chronic steroid use Lupus Mixed connective tissue disease PAD (peripheral artery disease) Proteinuria Rheumatoid arthritis Varicose veins of right lower extremity with inflammation <April Jeff NP - Last Filed: 11/26/21 17:49> Family History: Family History Father No problems noted. Mother Lung cancer <April Jeff NP - Last Filed: 11/26/21 17:49> Surgical History: Surgical History History of breast lump/mass excision History of bunionectomy History of cholecystectomy History of excision of mass History of partial hysterectomy <April Jeff NP - Last Filed: 11/26/21 17:49> Social History: Social History Household Members: Children Housing: House Do you presently have visiting nurse or other home services: Yes (caseworker protective services's) Alcohol intake: never Patient Tobacco Use Status: Current everyday Tobacco user Tobacco use type: Cigarette Cigarette Packs Per Day: 1 Cigarettes Per Day: 20.0 Years Smoked: 29 Second Hand Smoke Exposure: No Advance Directives Date on File: 11/26/21 service: No Current occupational status: unemployed and disabled <April Jeff NP - Last Filed: 11/26/21 17:49> Meds Allergies/Adverse reactions: Allergies Allergy/AdvReac Type Severity Reaction Status Date / Time clarithromycin Allergy Intermediate FACIAL Verified 04/18/21 13:25 [CLARITHROMYCIN SWELLING/REDNE ] SS, facial rash, facial rash, facial rash, facial rash <April Jeff NP - Last Filed: 11/26/21 17:49> Active Medications: Current Medications Acetaminophen (Acetaminophen 325 Mg Tablet) 650 mg PO Q6H PRN PRN Reason: Pain, Mild (Pain Scale 1-3) Ascorbic Acid (Ascorbic Acid 500 Mg Tablet) 1,000 mg PO DAILY [facility] Dexamethasone Sodium Phosphate (Dexamethasone Sod Phosphate 4 Mg/Ml Vial) 6 mg IVPUSH DAILY [place] Stop: 12/04/21 09:01 Ondansetron HCl (Ondansetron Hcl 4 Mg/2 Ml Vial) 4 mg IVPUSH Q8H PRN PRN Reason: Nausea and Vomiting Pharmacy Consult (Consult Rx Perform Med Rec) 1 each MISCELLANE ONCE PRN PRN Reason: Consult order Sodium Chloride (0.9 % Sodium Chloride Flush 3 Ml Syringe) 3 ml IVFLUSH QSHIFT [place] Vitamin D (Cholecalciferol (Vitamin D3) 25 Mcg Tablet) 50 mcg PO DAILY [place]RIA <April Jeff NP - Last Filed: 11/26/21 17:49> Home medications: Home Medications Medication Instructions Recorded Confirmed Last Taken Type lorazepam 1 mg 1 mg PO BID PRN 08/15/20 11/25/21 08/30/20 History tablet pravastatin 40 mg 40 mg PO BEDTIME 08/15/20 11/25/21 08/30/20 History tablet fluoxetine 40 mg 40 mg PO DAILY 08/20/20 11/25/21 08/30/20 History capsule (Prozac) albuterol sulfate 2.5 mg 08/31/20 11/25/21 08/30/20 History INHALATION Q6H PRN albuterol sulfate 2 puff 08/31/20 11/25/21 08/30/20 History 90 mcg/actuation INHALATION Q4H PRN aerosol inhaler bupropion HCl 100 100 mg PO BID 08/31/20 11/25/21 08/30/20 History mg tablet,12 hr sustained-release butalbital-acetam 2 tab PO DAILY 08/31/20 11/25/21 08/30/20 History inophen-caffeine PRN 50 mg-325 mg-40 mg tablet prednisone 5 mg 5 mg PO DAILY 08/31/20 11/25/21 08/30/20 History tablet nortriptyline 75 75 mg PO BEDTIME 04/18/21 11/25/21 Unknown History mg capsule apixaban 5 mg 5 mg PO BID 10/21/21 11/25/21 Unknown History tablet fluticasone 1 puff 10/21/21 11/25/21 Unknown History propionate 220 INHALATION BID mcg/actuation HFA aerosol inhaler (Flovent HFA) levothyroxine 175 175 mcg PO DAILY 10/21/21 11/25/21 Unknown History mcg tablet loratadine 10 mg 10 mg PO DAILY 10/21/21 11/25/21 Unknown History tablet multivitamin 1 tab PO DAILY 10/21/21 11/25/21 Unknown History sulfasalazine 500 500 mg PO BID 10/21/21 11/25/21 Unknown History mg tablet <April Jeff NP - Last Filed: 11/26/21 17:49> Physical Exam Verdana 4l Vital Signs and Narrative: Verdana 4d Verdana 4d Vital Signs: Verdana 4d Verdana 4Bd Last Vital Signs Verdana 4d Roving Changer New 4d Roving Changer New 4d Temp 98.9 F 11/25/21 07:30 Roving Changer New 4d Pulse 108 H 11/25/21 11:07 Roving Changer New 4d Resp 30 H 11/25/21 11:07 BP 115/61 11/25/21 11:07 Pulse Ox 90 L 11/25/21 11:07 Oxygen Flow Rate 4 11/25/21 07:42 BMI result Body Mass Index 27.4 <April Jeff NP - Last Filed: 11/26/21 17:49> Appearing in no acute distress head is normocephalic atraumatic eyes pupils are PERRLA sclera is anicteric mouth throat mucous membranes are intact and moist neck is supple no lymphadenopathy, no JVD noted lung sounds are clear to auscultation heart regular rate rhythm, clear S1, S2 positive bowel sounds, abdomen is soft, nontender neuro patient is alert x3, no focal deficits <April Jeff NP - Last Filed: 11/26/21 17:49> Results Labs CBC and Chem 7: : 12/19/21 07:21 12/19/21 07:21 <April Jeff NP - Last Filed: 11/26/21 17:49> Labs: Laboratory Results - last 24 hr 11/25/21 11/25/21 11/25/21 08:22 08:22 08:22 MCV 76.2 L MCH 23.1 L MCHC 30.3 L RDW 14.5 Plt Count 440 H D MPV 9.1 L Immature Gran % (Auto) 2.6 H Neut % (Auto) 79.9 H Lymph % (Auto) 8.0 L [place] % (Auto) 7.9 Eos % (Auto) 1.3 Baso % (Auto) 0.3 Lymph # (Auto) 1.3 [place] # (Auto) 1.3 H Eos # (Auto) 0.2 Baso # (Auto) 0.1 Abs Immat Gran (auto) 0.42 H Absolute Neuts (auto) 12.7 H Absolute Nucleated RBC 0.020 H Nucleated RBC % (auto) 0.1 PT 47.6 H INR 4.1 H APTT 58.6 H D-Dimer High Sensitivty 672 Anion Gap 16 Estim Creat Clear Calc 82.1 Estimated GFR > 60 Random Glucose 102 Lactic Acid Calcium 8.3 L Total Bilirubin 0.3 AST 29 ALT 14 Alkaline Phosphatase 431 H D Total Protein 5.8 L Albumin 2.7 L D COVID-19 ([facility]) COVID-19 Clin Com 11/25/21 11/25/21 08:22 08:22 MCV MCH MCHC RDW Plt Count MPV Immature Gran % (Auto) Neut % (Auto) Lymph % (Auto) [place] % (Auto) Eos % (Auto) Baso % (Auto) Lymph # (Auto) [place] # (Auto) Eos # (Auto) Baso # (Auto) Abs Immat Gran (auto) Absolute Neuts (auto) Absolute Nucleated RBC Nucleated RBC % (auto) PT INR APTT D-Dimer High Sensitivty Anion Gap Estim Creat Clear Calc Estimated GFR Random Glucose Lactic Acid 1.6 Calcium Total Bilirubin AST ALT Alkaline Phosphatase Total Protein Albumin COVID-19 ([facility]UEL ANGEL) Positive A COVID-19 Clin Com See Note <April Jeff NP - Last Filed: 11/26/21 17:49> Imaging Radiologist's Impressions: Impressions Chest X-Ray 11/25/21 09:07 IMPRESSION: Prominent patchy bilateral airspace opacities, which can be seen in the setting of infection or inflammatory process, including viral pneumonia. <April Jeff NP - Last Filed: 11/26/21 17:49> Assessment and Plan (1) Acute hypoxemic respiratory failure due to COVID-19: Status: Acute <April Jeff NP - Last Filed: 11/26/21 17:49> Plan 46 year old women admitted with covid 19 hypoxia Covid 19 hypoxia. Immunocompromised Start Remdesivir Decadron Supplemental oxygen Vitamin C, D ID following Hx of Lupus and RA Hold Plaquenil and sulfasazine and prednisone Hypothyroidism Levothyroxine DVT prophylaxis with Arline Attending Dr. Zepeda Full code <April Jeff NP - Last Filed: 11/26/21 17:49> Quality Stroke Does the patient have a stroke diagnosis?: No <April Jeff NP - Last Filed: 11/26/21 17:49> VTE Prior VTE?: No <April Jeff NP - Last Filed: 11/26/21 17:49> VTE Risk Level:: Medical - moderate - high <April Jeff NP - Last Filed: 11/26/21 17:49> VTE Device Contraindication: Treatment Not Indicated <April Jeff NP - Last Filed: 11/26/21 17:49> VTE Drug Contraindication: N/A - Med Ordered <April Jeff NP - Last Filed: 11/26/21 17:49>
[2021-11-25] MEDS: Remdesivir 200 MG in 0.9 % Sodium Chloride 210 ML 105 MG IV (16:49)
[2021-11-25] MEDS: 0.9 % Sodium Chloride Flush 3 ML SYRINGE IVFLUSH (16:57)
[2021-11-26] VITALS (15 sets, daily range): BP systolic 99–137; BP diastolic 55–74; PULSE 89–115; RESP 18–38; TEMP 36.6–37.5; O2SAT 55–100
[2021-11-26] MEDS: 0.9 % Sodium Chloride Flush 3 ML SYRINGE IVFLUSH ×2 (01:03→08:38)
--- NOTE | 2021-11-26 02:05 | PC.NURSE ---
Patient alert and oriented x 3. Patient placed on hi-flow by respiratory, patient oxygen saturations dropped to 60-80's% on sol nasal cannula. Patient blowing nose and coughing up phlegm when oxygen dropped. MD notified of desaturation and recommended hi-flow. Patient oxygen at high 90's with hi-flow. Will continue to monitor.
--- NOTE | 2021-11-26 03:01 | PC.NURSE ---
ASSUMING CARE FOR PATIENT FROM NAM JAMES. PATIENT RESTING WITH EYES CLOSED, HIGH FLOW RUNNING AT 50-80%. PATIENT O2 SAT IS AT 100% ON PULSE OX. THIS RN REACHING OUT TO HOSPITALIST REGARDING HOME MEDICATIONS THAT PATIENT WAS ASKING FOR EARLIER IN THE SHIFT. HAVE RECEIVED NO RESPONSE IN FOLLOW UP FROM PROVIDER. PREVIOUS RN HAD NOT HEARD ANYTHING ABOUT DOING A CTA OF THE CHEST BECAUSE OF DDIMER OR IF THERE WAS GOING TO BE FOLLOW UP WITH THE INCREASED INR. PATIENT IS NOT ON THINNERS AT THIS TIME. PREVIOUS RN STATING IN REPORT PATIENT O2 SAT LOWERING AT TIME AND PATIENT PLACED ON NON-REBREATHER DURING COUGHING FITS, THIS RN INQUIRING ABOUT VITALS REGARDING THOSE COUGHING FITS THROUGHOUT SHIFT. WILL CONTINUE TO MONITOR PATIENT AND FOLLOW UP WITH HOME MEDICATIONS, THERE ARE NO RECENT ORDER CHANGES FROM PROVIDER. PLAN OF CARE WILL BE FOR ADMISSION.
--- NOTE | 2021-11-26 03:31 | PC.NURSE ---
pt de-sating into the low 80's. pt placed on a non-re breather per respiratory recommendation. Goal is to maintain on O2 sat of 88%. Nurse Lucía notifchong and berto. Will continue to monitor.
[2021-11-26 06:45] LABS: MANUAL DIFF FLAG NO
[2021-11-26 06:49] LABS: Basophils Percent Auto 0.2 % (0-2); Eosinophils Absolute Auto 0.1 X10*3/uL (0.0-0.4); Hematocrit 33.2 % (37.0-47.0); Imm Gran Abs Auto 0.27 X10*3/uL (0.00-0.03); Imm Gran Pct Auto 2.2 % (0.0-0.4); Lymphocytes Percent Auto 7.9 % (20-40); Mean Corpuscular HGB Conc 30.1 g/dl (31.0-35.0); Mean Corpuscular Hemoglobin 23.1 pg (27.0-33.0); Mean Corpuscular Volume 76.7 fL (80.0-98.0); Mean Platelet Volume 8.9 fL (9.4-12.3); Monocytes Absolute Auto 1.1 X10*3/uL (0.1-1.2); Monocytes Percent Auto 8.6 % (2-11); Neutrophils Absolute Auto 9.9 x10*3/uL (2.0-8.3); Neutrophils Percent Auto 80.1 % (45-73); Platelet Count 391 X10*3/uL (160-400); Red Blood Count 4.33 X10*6/uL (4.20-5.50); Red Cell Distribution Width 14.6 % (11.0-16.0); White Blood Count 12.4 X10*3/uL (4.8-10.8)
[2021-11-26 07:06] LABS: Anion Gap 12 (12-20); Blood Urea Nitrogen 13 mg/dL (9-16); Calcium 8.3 mg/dL (8.4-10.2); Carbon Dioxide 33 mmol/L (22-29); Chloride 98 mmol/L (96-108); Creatinine Clr Calc Pharmacy 90.1; Estimated Glomerular Filt Rate > 60; Glucose Random 102 mg/dL (60-115); Potassium 4.1 mmol/L (3.3-5.1); Sodium 139 mmol/L (135-145)
[2021-11-26 07:50] LABS: Lactate Dehydrogenase 499 U/L (122-220)
[2021-11-26] MEDS: dexAMETHasone sod phosphate 4 MG/ML VIAL 6 MG IVPUSH (08:08)
[2021-11-26] MEDS: Ascorbic Acid 500 MG TABLET 1000 MG PO (08:10)
[2021-11-26] MEDS: Cholecalciferol (Vitamin D3) 25 MCG TABLET 50 MCG PO (08:10)
[2021-11-26 08:12] LABS: Ferritin 815 ng/mL (10-250)
[2021-11-26 08:20] LABS: Procalcitonin 1.39 ng/mL
[2021-11-26] MEDS: iohexoL 350 MG/ML 100 ML INFUS..BTL IV (10:08)
--- NOTE | 2021-11-26 10:20 | PC.NURSE ---
PT REMAINS IN ACUTE RESP DISTRESS WITH ANY ACTIVITY. SHE IS ON HIGH FLOW BUT REQUIRES THE NRB AFTER GETTING UP TO THE BEDSIDE COMMODE. SHE BECOMES HYPOXIC INTO THE 50'S SKIN COLOR IS DUSKY HOSPITALIST TOOL AND DIE ENGINEER HAS BEEN IN TO SEE PT
--- NOTE | 2021-11-26 12:12 | P.PNIM_ITS ---
Subjective Subjective Date of Service: 11/26/21 <April Jeff NP - Last Filed: 11/26/21 12:59> 12/19/21 <Hua Zepeda MD - Last Filed: 12/19/21 11:09> Review of Systems Follow up Covid 19 still with some sob and cough All other systems are reviewed and are negative <April Jeff NP - Last Filed: 11/26/21 12:59> Physical Exam Verdana 4l Vital Signs: Verdana 4d Verdana 4d Vital Signs: Verdana 4d Verdana 4Bd Last Vital Signs Verdana 4d Production Line Technician New 4d Production Line Technician New 4d Temp 99.3 F 11/26/21 10:29 Production Line Technician New 4d Pulse 111 H 11/26/21 10:29 Production Line Technician New 4d Resp 20 11/26/21 11:21 BP 121/61 11/26/21 10:29 Pulse Ox 94 11/26/21 10:29 Oxygen Flow Rate 4 11/25/21 07:42 BMI result Body Mass Index 27.4 <April Jeff NP - Last Filed: 11/26/21 12:59> Appearing in no acute distress lung sounds normal expansion heart regular rate rhythm, clear S1, S2 positive bowel sounds, abdomen is soft, nontender neuro patient is alert x3, no focal deficits <April Jeff NP - Last Filed: 11/26/21 12:59> Objective Data Active Medications Acetaminophen (Acetaminophen 325 Mg Tablet) 650 mg PO Q6H PRN PRN Reason: Pain, Mild (Pain Scale 1-3) Albuterol/Ipratropium (Albuterol/Iprat 2.5/0.5mg 3 Ml Ampul.Neb) 3 ml INHALE RQ4H WHILE AWAKE [facility] Ascorbic Acid (Ascorbic Acid 500 Mg Tablet) 1,000 mg PO DAILY [facility] Last Admin: 11/26/21 08:10 Dose: 1,000 mg Documented by: LESLIE Dexamethasone Sodium Phosphate (Dexamethasone Sod Phosphate 4 Mg/Ml Vial) 6 mg IVPUSH DAILY [facility] Stop: 12/04/21 09:01 Last Admin: 11/26/21 08:08 Dose: 6 mg Documented by: LESLIE Remdesivir 100 mg/ Sodium (Chloride) 230 mls @ 115 mls/hr IV Q24H [facility] Stop: 11/29/21 18:59 Ondansetron HCl (Ondansetron Hcl 4 Mg/2 Ml Vial) 4 mg IVPUSH Q8H PRN PRN Reason: Nausea and Vomiting Pharmacy Consult (Consult Rx Perform Med Rec) 1 each MISCELLANE ONCE PRN PRN Reason: Consult order Sodium Chloride (0.9 % Sodium Chloride Flush 3 Ml Syringe) 3 ml IVFLUSH QSHIFT [facility] Last Admin: 11/26/21 08:38 Dose: 3 ml Documented by: LESLIE Vitamin D (Cholecalciferol (Vitamin D3) 25 Mcg Tablet) 50 mcg PO DAILY [facility] Last Admin: 11/26/21 08:10 Dose: 50 mcg Documented by: LESLIE <April Jeff NP - Last Filed: 11/26/21 12:59> Labs CBC & Chem 7: : 12/19/21 07:21 12/19/21 07:21 <April Jeff NP - Last Filed: 11/26/21 12:59> Labs: Laboratory Results - last 24 hr 11/25/21 11/26/21 11/26/21 08:22 06:32 06:32 MCV 76.7 L MCH 23.1 L MCHC 30.1 L RDW 14.6 Plt Count 391 MPV 8.9 L Immature Gran % (Auto) 2.2 H Neut % (Auto) 80.1 H Lymph % (Auto) 7.9 L Cochran % (Auto) 8.6 Eos % (Auto) 1.0 Baso % (Auto) 0.2 Lymph # (Auto) 1.0 L Cochran # (Auto) 1.1 Eos # (Auto) 0.1 Baso # (Auto) 0.0 Abs Immat Gran (auto) 0.27 H Absolute Neuts (auto) 9.9 H Absolute Nucleated RBC 0.000 Nucleated RBC % (auto) 0.0 Anion Gap 12 Estim Creat Clear Calc 90.1 Estimated GFR > 60 Random Glucose 102 Calcium 8.3 L Ferritin Cancelled 815 H Lactate Dehydrogenase Cancelled 499 H Procalcitonin 11/26/21 11/26/21 06:32 08:22 MCV MCH MCHC RDW Plt Count MPV Immature Gran % (Auto) Neut % (Auto) Lymph % (Auto) Cochran % (Auto) Eos % (Auto) Baso % (Auto) Lymph # (Auto) Cochran # (Auto) Eos # (Auto) Baso # (Auto) Abs Immat Gran (auto) Absolute Neuts (auto) Absolute Nucleated RBC Nucleated RBC % (auto) Anion Gap Estim Creat Clear Calc Estimated GFR Random Glucose Calcium Ferritin Lactate Dehydrogenase Procalcitonin 1.39 Cancelled <April Jeff NP - Last Filed: 11/26/21 12:59> Microbiology Microbiology Results: Microbiology 11/25/21 08:56 Blood Culture - Preliminary Blood - Venous No growth after 24 hours. 11/25/21 08:22 Blood Culture - Preliminary Blood - Venous No growth after 24 hours. <April Jeff NP - Last Filed: 11/26/21 12:59> Assessment and Plan (1) Acute hypoxemic respiratory failure due to COVID-19: Status: Acute <April Jeff NP - Last Filed: 11/26/21 12:59> Plan 46 year old women admitted with covid 19 hypoxia Covid 19 hypoxia. Immunocompromised Start Remdesivir Decadron Supplemental oxygen Vitamin C, D ID following Inflam markers elevated, Procal 1.39 Hx of Lupus and RA Hold Plaquenil, sulfasazine and prednisone Hypothyroidism Levothyroxine Mental Health continue home medications DVT prophylaxis with [facility] Attending Dr. Zepeda Full code <April Jeff NP - Last Filed: 11/26/21 12:59> Quality Stroke Does the patient have a stroke diagnosis?: No <April Jeff NP - Last Filed: 11/26/21 12:59> VTE Prior VTE?: No <April Jeff NP - Last Filed: 11/26/21 12:59> VTE Risk Level:: Medical - moderate - high <April Jeff NP - Last Filed: 11/26/21 12:59> VTE Device Contraindication: Treatment Not Indicated <April Jeff NP - Last Filed: 11/26/21 12:59> VTE Drug Contraindication: N/A - Med Ordered <April Jeff NP - Last Filed: 11/26/21 12:59>
[2021-11-26] MEDS: Loratadine 10 MG TABLET PO (13:08)
[2021-11-26] MEDS: Multivitamin TABLET 1 TAB PO (13:08)
[2021-11-26] MEDS: traMADoL HCL 50 MG TABLET PO ×2 (13:08→20:37)
[2021-11-26] MEDS: FLUoxetine HCl 20 MG CAPSULE 40 MG PO (13:08)
[2021-11-26] MEDS: Folic Acid 1 MG TABLET PO (13:09)
--- NOTE | 2021-11-26 13:16 | PC.NURSE ---
pt continues to desat on high flow with bed mobility into the low 80's, recovers with assist of nrb 100% awaiting resp for updraft treatment
--- NOTE | 2021-11-26 14:14 | MHC.CM.PN ---
Met with patient in regards to discharge planning. Patient is from home with her children, ambulates with a walker and has a PATROL CAPTAIN through [facility]. Positive for Covid on 11/25. Patient is currently on oxygen, but not at baseline. PCP verified as Barbie Cochran. Copy of HCP verified to be on file. Patient received 2 Covid vaccines but doesn't remember which brand. No services anticipated to be needed at discharge. Family will transport home when medically stable. Continue to monitor for d/c needs.
[2021-11-26] MEDS: Albuterol/Iprat 2.5/0.5MG 3 ML AMPUL.NEB INHALE ×2 (14:42→20:16)
[2021-11-26] MEDS: Levothyroxine Sodium 175 MCG TABLET PO (14:53)
[2021-11-26] MEDS: Remdesivir 100 MG in 0.9 % Sodium Chloride 230 ML 115 MG IV (16:16)
--- NOTE | 2021-11-26 16:21 | PC.NURSE ---
STATES STARTING TO FEEL SOMEWHAT BETTER. IV MEDICATION INFUSING. REMAINS ON HIGH FLOW
--- NOTE | 2021-11-26 20:36 | PC.NURSE ---
Assumed care of pt at 1900. Pt independent to bedside commode w/ SBA, placed on NRB in addition to hi flores, continues to desat to 70s w/ good waveform whenever OOB. Dinner tray provided, medicated per JAN, remainder of vitals as charted.
[2021-11-26] MEDS: Pravastatin Sodium 40 MG TABLET PO (20:37)
[2021-11-26] MEDS: Apixaban 5 MG TABLET PO (20:37)
[2021-11-26] MEDS: Morphine Sulfate 2 MG/ML CARTRIDGE 1 MG IVPUSH (20:58)
--- NOTE | 2021-11-26 21:00 | PC.NURSE ---
Pt on NRB and hi flores s/p using commode, sat still in 70s. MD Adames notified, order for IV morphine, administered as documented in JAN. RT also to bedside to adjust hi flores settings. Pt remains awake and alert, RR decreased to 24. Sat slowly increasing to high 80s
[2021-11-27] VITALS (45 sets, daily range): BP systolic 88–141; BP diastolic 45–83; PULSE 77–128; RESP 19–44; TEMP 32.1–37.7; O2SAT 74–100
[2021-11-27] MEDS: Morphine Sulfate 2 MG/ML CARTRIDGE 1 MG IVPUSH ×4 (00:22→05:35)
[2021-11-27] MEDS: LORazepam 1 MG TABLET PO ×2 (00:23→09:35)
--- NOTE | 2021-11-27 03:56 | PC.NURSE ---
Pt again w/ significant drop in O2 after transferring to and from bedside commode. O2 sat 70s on hi flores and NRB together. MD Adames made aware. Pt given PRN morphine as documented. RT contacted for treatment and ABG. Pt endorses increased feeling of dyspnea, WOB notably increased from previous assessment
--- NOTE | 2021-11-27 04:01 | PC.NURSE ---
This RN, Ky RN, RT x 2 at bedside. Pt sat remains 74% on both oxygenation devices. ABG and bipap ordered per MD Adames. Requested MD to bedside for eval
--- NOTE | 2021-11-27 04:19 | PC.NURSE ---
0408 pt placed on bipap, O2 sat 81% 0409 second PIV placed per ERIKA Paz 0411 pt sat increased to 88%, tolerating bipap, ABG collected per RT; bipap 03/07
[2021-11-27 04:21] LABS: ABG Base Excess 6.6 mmol/L; ABG HCO3 30 mmol/L (22-26); ABG pCO2 40 mmHg (32-45); ABG pCO2 TC 42 mmHg (32-45); ABG pH 7.48 (7.35-7.45); ABG pH TC 7.47 (7.35-7.45); ABG pO2 64 mmHg (83-108); ABG pO2 TC 70 (83-108)
[2021-11-27 04:27] LABS: ABG Refer to POC result
--- NOTE | 2021-11-27 04:43 | PC.NURSE ---
temp sensing jean baptiste placed per MD order, + urine return, pt tolerated well
--- NOTE | 2021-11-27 04:43 | PM.EVENT ---
Event Note Date of Service: 11/27/21 Event Note: Brief history: 46-year-old female with a past medical history of SLE on chroni prednisone, hydroxychloroquine; hypothyroidism, CVA, fibromyalgia, peripheral vascular disease, rheumatoid arthritis admitted to the hospital for hypoxia in the setting of COVID-19. On 11/27/21 around 4:00AM; patient became more hypoxic. Patient was desaturating to low 70s on both high-flow/non-rebreather; respiratory rate ranging from 25-30; patient able to finish sentences; ABG showed pH of 7.48, pCO2 of 40, PO2 of 64; Patient was placed on BiPAP with improvement in oxygenation to 92%. Requested Pulmonary/Critical Care consult for further inputs. Followed by around 5:30AM; patient's oxygenation improved on BiPAP but patient was becoming more and more restless, a hunger, tachypneic to 35 to 40s; Discussed with ICU team again for possible intubation. ICU team evaluated the pt and given pt more morphine; few min later pt's RR improved to 25. ICU team mentioned will observe for now; repeat ABG in 1-2hrs.
--- NOTE | 2021-11-27 04:56 | PC.NURSE ---
Mayito rivera, give additional 1mg ivp of prn morphine despite orders for q4h.
--- NOTE | 2021-11-27 05:14 | PC.NURSE ---
MD Adames aware of increasing RR and decreasing O2 sat. Pt restless despite morphine administration. ICU consult pending
--- NOTE | 2021-11-27 05:22 | PC.NURSE ---
ICU provider and MD Adames at bedside. Pt not tolerating bipap, continues to state she is afraid. Provider discussing intubation w/ pt at this time
--- NOTE | 2021-11-27 05:27 | PC.NURSE ---
RT x 2, this RN, Brandi RN, Rudi RN, ICU PA-C, MD Adames, and MD Michele at bedside
--- NOTE | 2021-11-27 05:30 | PC.NURSE ---
team at bedside prepping for intubation, hyper-oxygenation in process
--- NOTE | 2021-11-27 05:36 | PC.NURSE ---
Pt laid flat, decreased WOB, RR decreased and sat up to 95% on bipap. Delaying intubation at this time. ICU provider still at bedside
--- NOTE | 2021-11-27 05:38 | PC.NURSE ---
2 mg morphine administered 0535; per ICU provider, will give morphine 2 mg Q 30 PRN
--- NOTE | 2021-11-27 05:46 | PC.NURSE ---
plan to keep pt on bipap w/ frequent PRNs, will repeat ABG per ICU provider
--- NOTE | 2021-11-27 05:53 | P.CONCC_ITS ---
History of Present Illness Data of Consult Service Date: 11/27/21 Requesting physician: Rigoberto Adames Primary Care Provider: Unknown Physician HPI Reason for consult: WORSENING HYPOXIC RESPIRATORY FAILURE IN THE SETTING OF COVID 19 INFECTION HPI: ?46-year-old female with underlying history of lupus, fibromyalgia, hypothyroid, peripheral artery disease, proteinuria, rheumatoid arthritis, varicose veins, who is opioid dependent due to her chronic pain.? Patient was admitted on November 25, 2021 as she presented to the emergency room with complaints of shortness of breath and worsened manner over last few days, she is chronically on steroids to her lupus, she had tested positive a few days prior to coming to the hospital but reported increased cough with green-yellow phlegm.? At the time of ER visit her sat was 80% on room air, her workup was significant for white count 15.9 and the chest x-ray show prominent patchy bilateral airspace opacities.? The patient was treated with Decadron, Rocephin albuterol.? She had [facility] and has been placed on nasal cannula oxygen, non-rebreather mask, high-flow oxygen.? She was treated with remdesivir given her immunocompromised state, Decadron, vitamin-C, D and her comorbidities were managed.? She was also on DVT prophylaxis.? Chest CTA that reveals no PE. This morning the patient appeared to decompensate, we were asked to see patient due to worsening hypoxia and increased work of breathing, upon my arrival to the emergency room, patient was satting 84% on BiPAP with a minute volume of 16, respiratory rate of 44, highly anxious and her work of breathing was noticeable, she was in significant respiratory distress.? At that time initially the plan was to intubate her but upon lying her flat and asking her about her opiate consumption it turns out she takes about 75-80 mg of oxycodone and the last time she took it was 2 days ago, she has only been getting about 2 mg of morphine every 4 hours as needed. It seems that the laying flat position work well for her and given her to of morphine brought her respiratory rate down to 25 and her O2 sat went up to 97%.? At this point intubation was held and will continue with BiPAP.? The case was discussed with hospitalist. ROS:? UNABLE TO OBTAIN DUE TO PATIENT'S CURRENT DISTRESS Past Medical History:? As above Past Surgical History:? Lumpectomy Bunionectomy Cholecystectomy Partial hysterectomy Mass excision NOS Family history: ?Mother had lung cancer currently disease. Social History: ?Patient still a heavy tobacco user unable to quantify this point but has a history of over 25 years, denies alcohol.? She is disabled and unemployed.? Lives at home. CODE STATUS:? Full code Allergies: ?Clarithromycin causes facial swelling Home Medications:? Please see med rec PHYSICAL EXAM: VS: ?Blood pressure 130/70, heart rate 117, respiratory rate 22, O2 sat 87% on BiPAP 16/10 with FiO2 of 100 % General:? Alert to person and place, able to answer questions and follow commands.? Clearly appears to be in respiratory distress with accessory muscle usage. Skin: ?Hyperpigmented skin changes of the bilateral lower extremities. ?Intact, no lesions, edema, erythema, clubbing or cyanosis.? No ulcers. HEENT:? Head is normocephalic, atraumatic, pupils equal round reactive to light accommodation bilaterally.? Extraocular movements appear intact.? Buccal mucosa is dry.? Neck is supple without lymphadenopathy. Cardiac:? Clear S1-S2, tachycardic 110 beats per minute, no murmurs, rubs, gallops. ? Pulmonary:? Diminished lung sounds bilaterally with fine crackles at the bases and minor wheezes in the upper portions of it bilaterally, no rhonchi. Abdomen:? Protuberant, positive bowel sounds in all 4 quadrants.? Soft, nontender, no rebound or guarding.? Musculoskeletal:? Moving all 4 extremities upon request a major joints, there is no crepitus or tenderness.? The strength is 5/5 bilaterally and throughout all 4 extremities.? There is no leg edema , no calf tenderness , no leg asymmetry.? Gait not assessed at this point. Neurologic:? As above, cranial nerves 2-12 are grossly intact.? No focal deficits noted. Vascular:? 2+ pulses upper and lower extremities distally. SIGNIFICANT LABORATORY DATA: ABG at 4:15 a.m. shows pH of 7.47, pCO2 42, PO2 70, HC03 30, base excess 6.6. Laboratories From this morning are pending. REVIEW OF IMAGES: CHEST CTA IMPRESSION: 1.? No filling defect identified within the main or segmental pulmonary arteries. Subsegmental pulmonary arteries are suboptimally evaluated due to extensive bilateral airspace disease. 2. Extensive bilateral airspace disease most consistent with infection. Mediastinal lymphadenopathy is nonspecific but likely reactive in nature. VTE: negative CXR Prominent patchy bilateral airspace opacities, which can be seen in the setting of infection or inflammatory process, including viral pneumonia. ? ASSESSMENT AND PLAN: 1. Hypoxic respiratory failure in setting of COVID-19 infection 2. COVID-19 pneumonia 3. Opiate dependence in the setting of lupus, fibromyalgia, rheumatoid arthritis among others 4. Reactive leukocytosis 5. Microcytic anemia rule out iron deficiency, microscopic bleeding 6. Acute COPD exacerbation perhaps induced by the above 7. Acute on chronic anxiety disorder 8. History of hypothyroidism As above discussed, initially patient appeared to be in significant distress and the concern was that she will continue to progress therefore the thought of intubation was present, however after investigating her history and her opiate dependence, finding out that lying her flat also relaxes her and calmed her down, we were successful at decreasing the respiratory rate and increase in the O2 sat by given her opioids and changing her position. Goal O2 about 90-92% as the? patient is a chronic? COPD patient, her most recent ABG reveals a pH of 7 point 468, pCO2 of 30.4, PO2 of 113; will? ?Titrate the FiO2 down, discussed with Dago BOO and Dr Jenkins.? I have asked nurses to give the patient 1 mg of morphine every half an hour as needed for respiratory distress and anxiety, we can repeat the ABG in about an hour and will continue with BiPAP support for now. Is worth thinking that if her minute volume while on BiPAP is over 20 the likelihood of the patient being intubated is very high. Will continue to observe the patient continue with BiPAP support, if she wor sens, then intubation should be done, this was already discussed with the patient in looks like in the past she has already been intubated 3 times and she is afraid of not waking up or no making it but this is a consideration to take. Consider changing as many po meds to IV. GI PROPHYLAXIS: start oral omeprazole DVT PROPHYLAXIS: on Eliquis Thanks for allowing us to participate in the care of this patient. Critical care time used for critical evaluation of this patient, diagnosis, treatment and coordination of care, review her records and documentation TOTAL CRITICAL CARE TIME 90 MIN . Patient's care was discussed in detail with Dr. Stemp.? He is aware of all the above as well as the plan of care for this patient. [facility] Past Medical History Medical History CVA (cerebral vascular accident) Fibromyalgia Hypothyroid Lupus Mixed connective tissue disease PAD (peripheral artery disease) Proteinuria Rheumatoid arthritis Varicose veins of right lower extremity with inflammation Family History Family History Father No problems noted. Mother Lung cancer Surgical History Surgical History History of breast lump/mass excision History of bunionectomy History of cholecystectomy History of excision of mass History of partial hysterectomy Social History Social History Household Members: Children Housing: House Do you presently have visiting nurse or other home services: Yes ([employer]) Alcohol intake: never Patient Tobacco Use Status: Current everyday Tobacco user Tobacco use type: Cigarette Cigarette Packs Per Day: 1 Cigarettes Per Day: 20.0 Years Smoked: 29 Second Hand Smoke Exposure: No Advance Directives Date on File: 11/26/21 service: No Current occupational status: unemployed and disabled Meds Allergies Allergy/AdvReac Type Severity Reaction Status Date / Time clarithromycin Allergy Intermediate FACIAL Verified 04/18/21 13:25 [CLARITHROMYCIN] SWELLING/REDNESS, facial rash, facial rash, facial rash, facial rash Active Medications: Current Medications Acetaminophen (Acetaminophen 325 Mg Tablet) 650 mg PO Q6H PRN PRN Reason: Pain, Mild (Pain Scale 1-3) Acetaminophen/Butalbital/Caffeine (Butalb/Acetamin/Caff 50/325/40 Tablet) 2 tab PO DAILY PRN PRN Reason: headache Albuterol/Ipratropium (Albuterol/Iprat 2.5/0.5mg 3 Ml Ampul.Neb) 3 ml INHALE RQ4H WHILE AWAKE [facility] Last Admin: 11/26/21 20:16 Dose: 3 ml Documented by: Apixaban (Apixaban 5 Mg Tablet) 5 mg PO BID [place] Last Admin: 11/26/21 20:37 Dose: 5 mg Documented by: Ascorbic Acid (Ascorbic Acid 500 Mg Tablet) 1,000 mg PO DAILY [facility] Last Admin: 11/26/21 08:10 Dose: 1,000 mg Documented by: Bupropion HCl (Bupropion Hcl Xl 150 Mg Tab.Er.24h) 150 mg PO DAILY [facility] Dexamethasone Sodium Phosphate (Dexamethasone Sod Phosphate 4 Mg/Ml Vial) 6 mg IVPUSH DAILY [facility] Stop: 12/04/21 09:01 Last Admin: 11/26/21 08:08 Dose: 6 mg Documented by: Fluoxetine HCl (Fluoxetine Hcl 20 Mg Capsule) 40 mg PO DAILY [facility] Last Admin: 11/26/21 13:08 Dose: 40 mg Documented by: Folic Acid (Folic Acid 1 Mg Tablet) 1 mg PO DAILY [facility] Last Admin: 11/26/21 13:09 Dose: 1 mg Documented by: Remdesivir 100 mg/ Sodium (Chloride) 230 mls @ 115 mls/hr IV Q24H [facility] Stop: 11/29/21 18:59 Last Infusion: 11/27/21 04:54 Dose: Infused Documented by: Levothyroxine Sodium (Levothyroxine Sodium 175 Mcg Tablet) 175 mcg PO DAILY@0630 [facility] Last Admin: 11/26/21 14:53 Dose: 175 mcg Documented by: Loratadine (Loratadine 10 Mg Tablet) 10 mg PO DAILY [facility] Last Admin: 11/26/21 13:08 Dose: 10 mg Documented by: Lorazepam (Lorazepam 1 Mg Tablet) 1 mg PO BID PRN PRN Reason: Anxiety Last Admin: 11/27/21 00:23 Dose: 1 mg Documented by: Morphine Sulfate (Morphine Sulfate 2 Mg/Ml Cartridge) 1 mg IVPUSH Q4H PRN; Protocol PRN Reason: pain/sob Last Admin: 11/27/21 05:35 Dose: 1 mg Documented by: Multivitamins/Vitamin C (Multivitamin Tablet) 1 tab PO DAILY [facility] Last Admin: 11/26/21 13:08 Dose: 1 tab Documented by: Ondansetron HCl (Ondansetron Hcl 4 Mg/2 Ml Vial) 4 mg IVPUSH Q8H PRN PRN Reason: Nausea and Vomiting Pharmacy Consult (Consult Rx Perform Med Rec) 1 each MISCELLANE ONCE PRN PRN Reason: Consult order Pravastatin Sodium (Pravastatin Sodium 40 Mg Tablet) 40 mg PO BEDTIME [facility] Last Admin: 11/26/21 20:37 Dose: 40 mg Documented by: Sodium Chloride (0.9 % Sodium Chloride Flush 3 Ml Syringe) 3 ml IVFLUSH QSHIFT [facility] Last Admin: 11/27/21 00:28 Dose: Not Given Documented by: Tramadol HCl (Tramadol Hcl 50 Mg Tablet) 50 mg PO Q8H [facility] Last Admin: 11/26/21 20:37 Dose: 50 mg Documented by: Vitamin D (Cholecalciferol (Vitamin D3) 25 Mcg Tablet) 50 mcg PO DAILY [facility] Last Admin: 11/26/21 08:10 Dose: 50 mcg Documented by: Home Medications Medication Instructions Recorded Confirmed Last Taken Type lorazepam 1 mg tablet 1 mg PO BID PRN 08/15/20 11/25/21 08/30/20 History pravastatin 40 mg tablet 40 mg PO BEDTIME 08/15/20 11/25/21 08/30/20 History fluoxetine 40 mg capsule (Prozac) 40 mg PO DAILY 08/20/20 11/25/21 08/30/20 History albuterol sulfate 2.5 mg INHALATION Q6H PRN 08/31/20 11/25/21 08/30/20 History albuterol sulfate 90 mcg/actuation 2 puff INHALATION Q4H PRN 08/31/20 11/25/21 08/30/20 History aerosol inhaler bupropion HCl 100 mg tablet,12 hr 100 mg PO BID 08/31/20 11/25/21 08/30/20 History sustained-release lcesygmuif-alnbtjiwtmhga-ibtzmwmo 2 tab PO DAILY PRN 08/31/20 11/25/21 08/30/20 History 50 mg-325 mg-40 mg tablet prednisone 5 mg tablet 5 mg PO DAILY 08/31/20 11/25/21 08/30/20 History nortriptyline 75 mg capsule 75 mg PO BEDTIME 04/18/21 11/25/21 Unknown History apixaban 5 mg tablet 5 mg PO BID 10/21/21 11/25/21 Unknown History fluticasone propionate 220 1 puff INHALATION BID 10/21/21 11/25/21 Unknown History mcg/actuation HFA aerosol inhaler (Flovent HFA) levothyroxine 175 mcg tablet 175 mcg PO DAILY 10/21/21 11/25/21 Unknown History loratadine 10 mg tablet 10 mg PO DAILY 10/21/21 11/25/21 Unknown History multivitamin 1 tab PO DAILY 10/21/21 11/25/21 Unknown History sulfasalazine 500 mg tablet 500 mg PO BID 10/21/21 11/25/21 Unknown History tramadol 50 mg tablet 50 mg PO Q8H 10/21/21 11/25/21 Unknown History Physical Exam Vital Signs: Vital Signs: Last Vital Signs Temp 100 F 11/27/21 04:02 Pulse 113 H 11/27/21 05:47 Resp 30 H 11/27/21 05:47 BP 130/70 11/27/21 05:40 Pulse Ox 97 11/27/21 05:47 Oxygen Flow Rate 4 11/25/21 07:42 BMI result Body Mass Index 27.4 Results Labs CBC & Chem 7: 11/27/21 07:54 11/27/21 07:54 Labs: Short CBC 11/26/21 Range/Units 06:32 WBC 12.4 H (4.8-10.8) X10*3/uL Hgb 10.0 L (12.0-16.0) g/dl Hct 33.2 L (37.0-47.0) % Plt Count 391 (160-400) X10*3/uL BMP 11/26/21 06:32 Sodium 139 Potassium 4.1 Chloride 98 Carbon Dioxide 33 H BUN 13 Creatinine 0.72 Calcium 8.3 L Microbiology Microbiology Results: Microbiology 11/25/21 08:56 Blood - Venous Blood Culture - Preliminary No growth after 24 hours. 11/25/21 08:22 Blood - Venous Blood Culture - Preliminary No growth after 24 hours.
[2021-11-27 06:13] LABS: ABG Base Excess 4.8 mmol/L; ABG HCO3 28 mmol/L (22-26); ABG pCO2 38 mmHg (32-45); ABG pCO2 TC 39 mmHg (32-45); ABG pH 7.47 (7.35-7.45); ABG pH TC 7.47 (7.35-7.45); ABG pO2 114 mmHg (83-108); ABG pO2 TC 115 (83-108)
[2021-11-27 06:37] LABS: ABG Refer to POC result
[2021-11-27] MEDS: Morphine Sulfate 2 MG/ML CARTRIDGE IVPUSH ×3 (06:37→09:35)
[2021-11-27] MEDS: Pantoprazole Sodium 40 MG/10 ML VIAL IVPUSH ×2 (06:37→17:00)
[2021-11-27] MEDS: Levothyroxine Sodium 175 MCG TABLET PO (07:23)
[2021-11-27] MEDS: 0.9 % Sodium Chloride Flush 3 ML SYRINGE IVFLUSH (07:24)
--- NOTE | 2021-11-27 07:36 | PC.NURSE ---
pt is resting in the stretcher, alert and oriented, skin pwd, respirations will range from 30-37 on bipap 16//100% and tolerating well. pt is reporting lower back pain at 06/27. jean baptiste cath in place and draining well about 500ml of darker yellow urine. pt is in sinus tach on the monitor around 113
[2021-11-27] MEDS: Albuterol/Iprat 2.5/0.5MG 3 ML AMPUL.NEB INHALE ×4 (07:45→20:31)
[2021-11-27 08:12] LABS: MANUAL DIFF FLAG NO
--- NOTE | 2021-11-27 08:23 | PC.NURSE ---
pt reports that she cant breath but pt also was attempting to sit up an sats drop all the way don to 84% on the bipap pt given the morphine and pt relaxed some and o2 increased to 94%
[2021-11-27 08:26] LABS: Basophils Percent Auto 0.2 % (0-2); Eosinophils Absolute Auto 0.2 X10*3/uL (0.0-0.4); Eosinophils Percent Auto 1.7 % (0-4); Hemoglobin 9.7 g/dl (12.0-16.0); Imm Gran Abs Auto 0.25 X10*3/uL (0.00-0.03); Imm Gran Pct Auto 1.8 % (0.0-0.4); Lymphocytes Absolute Auto 1.5 X10*3/uL (1.2-4.9); Lymphocytes Percent Auto 10.5 % (20-40); Mean Corpuscular HGB Conc 29.4 g/dl (31.0-35.0); Mean Corpuscular Hemoglobin 22.8 pg (27.0-33.0); Mean Corpuscular Volume 77.6 fL (80.0-98.0); Mean Platelet Volume 9.3 fL (9.4-12.3); Monocytes Absolute Auto 1.2 X10*3/uL (0.1-1.2); Monocytes Percent Auto 8.6 % (2-11); Neutrophils Absolute Auto 10.6 x10*3/uL (2.0-8.3); Neutrophils Percent Auto 77.2 % (45-73); Platelet Count 399 X10*3/uL (160-400); Red Blood Count 4.25 X10*6/uL (4.20-5.50); Red Cell Distribution Width 14.6 % (11.0-16.0); White Blood Count 13.8 X10*3/uL (4.8-10.8)
[2021-11-27 08:42] LABS: Alanine Aminotransferase 23 U/L (0-31); Albumin Level 2.3 g/dL (3.5-5.0); Alkaline Phosphatase 342 U/L (39-117); Anion Gap 12 (12-20); Aspartate Amino Transferase 68 U/L (5-31); Bilirubin Total 0.5 mg/dL (0.0-1.0); Blood Urea Nitrogen 13 mg/dL (9-16); Calcium 8.1 mg/dL (8.4-10.2); Carbon Dioxide 29 mmol/L (22-29); Chloride 100 mmol/L (96-108); Creatinine Clr Calc Pharmacy 101.4; Estimated Glomerular Filt Rate > 60; Glucose Random 98 mg/dL (60-115); Potassium 3.8 mmol/L (3.3-5.1); Sodium 137 mmol/L (135-145); Total Protein 5.1 g/dL (6.5-8.0)
[2021-11-27] MEDS: dexAMETHasone sod phosphate 4 MG/ML VIAL 6 MG IVPUSH (08:53)
[2021-11-27] MEDS: Loratadine 10 MG TABLET PO (08:53)
[2021-11-27] MEDS: Apixaban 5 MG TABLET PO ×2 (08:54→23:33)
[2021-11-27] MEDS: Folic Acid 1 MG TABLET PO (08:54)
[2021-11-27] MEDS: Multivitamin TABLET 1 TAB PO (08:54)
[2021-11-27] MEDS: buPROPion HCl XL 150 MG TAB.ER.24H PO (08:54)
[2021-11-27] MEDS: FLUoxetine HCl 20 MG CAPSULE 40 MG PO (08:55)
[2021-11-27] MEDS: Cholecalciferol (Vitamin D3) 25 MCG TABLET 50 MCG PO (08:55)
[2021-11-27] MEDS: Ascorbic Acid 500 MG TABLET 1000 MG PO (08:55)
--- NOTE | 2021-11-27 09:45 | PC.NURSE ---
pt continuos on feeling anxious/ moving around keeps stating that she cant breath and that she is afraid. respiratory increase to 48 and oxygen level drops to the low 80's, but once pt calms herself up the respiratory rate stabilizes. pt given more morphine and Ativan prn early per ally land leveler verbal orders
--- NOTE | 2021-11-27 10:33 | PC.NURSE ---
pt is currently resting peacefully on her right side, sating at 98%
--- NOTE | 2021-11-27 11:13 | PC.NURSE ---
pt incontinent of stool, pt is presenting quite sleepy/drowsy at this time time and still breathing anywhere from 35-45 respi a min, sating 94-96% on the bipap, hr 114 and bp 124/69, legs where noticeably dusky up to the pt's knees, currently the dusky color is all the way up her hip area ally immunology specialist notified
--- NOTE | 2021-11-27 11:37 | HO.PM.IMPN ---
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 Only able to lie flat Physical Exam Vital Signs: Vital Signs: Last Vital Signs Temp 100 F 11/27/21 04:02 Pulse 110 H 11/27/21 10:34 Resp 34 H 11/27/21 08:28 BP 128/63 11/27/21 10:34 Pulse Ox 97 11/27/21 10:34 Oxygen Flow Rate 4 11/25/21 07:42 BMI result Body Mass Index 27.4 Appearing in no acute distress lung normal expansion however tachypneic heart regular rate rhythm, clear S1, S2 positive bowel sounds, abdomen is soft, nontender neuro patient is alert x3, no focal deficits Skin ashy sutherland on arms all the way up to trunk Objective Data Active Medications Acetaminophen (Acetaminophen 325 Mg Tablet) 650 mg PO Q6H PRN PRN Reason: Pain, Mild (Pain Scale 1-3) Acetaminophen/Butalbital/Caffeine (Butalb/Acetamin/Caff 50/325/40 Tablet) 2 tab PO DAILY PRN PRN Reason: headache Albuterol/Ipratropium (Albuterol/Iprat 2.5/0.5mg 3 Ml Ampul.Neb) 3 ml INHALE RQ4H WHILE AWAKE [facility] Last Admin: 11/27/21 07:45 Dose: 3 ml Documented by: ISRAEL Apixaban (Apixaban 5 Mg Tablet) 5 mg PO BID [facility] Last Admin: 11/27/21 08:54 Dose: 5 mg Documented by: LEIF Ascorbic Acid (Ascorbic Acid 500 Mg Tablet) 1,000 mg PO DAILY [facility] Last Admin: 11/27/21 08:55 Dose: 1,000 mg Documented by: LEIF Bupropion HCl (Bupropion Hcl Xl 150 Mg Tab.Er.24h) 150 mg PO DAILY [facility] Last Admin: 11/27/21 08:54 Dose: 150 mg Documented by: LEIF Dexamethasone Sodium Phosphate (Dexamethasone Sod Phosphate 4 Mg/Ml Vial) 6 mg IVPUSH DAILY [facility] Stop: 12/04/21 09:01 Last Admin: 11/27/21 08:53 Dose: 6 mg Documented by: LEIF Fluoxetine HCl (Fluoxetine Hcl 20 Mg Capsule) 40 mg PO DAILY [facility] Last Admin: 11/27/21 08:55 Dose: 40 mg Documented by: LEIF Folic Acid (Folic Acid 1 Mg Tablet) 1 mg PO DAILY [facility] Last Admin: 11/27/21 08:54 Dose: 1 mg Documented by: LEIF Remdesivir 100 mg/ Sodium (Chloride) 230 mls @ 115 mls/hr IV Q24H [facility] Stop: 11/29/21 18:59 Last Infusion: 11/27/21 04:54 Dose: 0 mls/hr Documented by: BERTA Levothyroxine Sodium (Levothyroxine Sodium 175 Mcg Tablet) 175 mcg PO DAILY@0630 [facility] Last Admin: 11/27/21 07:23 Dose: 175 mcg Documented by: LEIF Loratadine (Loratadine 10 Mg Tablet) 10 mg PO DAILY [facility] Last Admin: 11/27/21 08:53 Dose: 10 mg Documented by: LEIF Lorazepam (Lorazepam 1 Mg Tablet) 1 mg PO BID PRN PRN Reason: Anxiety Last Admin: 11/27/21 09:35 Dose: 1 mg Documented by: LEIF Morphine Sulfate (Morphine Sulfate 2 Mg/Ml Cartridge) 2 mg IVPUSH Q30M PRN; Protocol PRN Reason: Shortness of Breath Last Admin: 11/27/21 09:35 Dose: 2 mg Documented by: LEIF Multivitamins/Vitamin C (Multivitamin Tablet) 1 tab PO DAILY [facility] Last Admin: 11/27/21 08:54 Dose: 1 tab Documented by: LEIF Ondansetron HCl (Ondansetron Hcl 4 Mg/2 Ml Vial) 4 mg IVPUSH Q8H PRN PRN Reason: Nausea and Vomiting Pantoprazole Sodium (Pantoprazole Sodium 40 Mg/10 Ml Vial) 40 mg IVPUSH BID@0630,1630 [facility] Last Admin: 11/27/21 06:37 Dose: 40 mg Documented by: BERTA Pharmacy Consult (Consult Rx Perform Med Rec) 1 each MISCELLANE ONCE PRN PRN Reason: Consult order Pravastatin Sodium (Pravastatin Sodium 40 Mg Tablet) 40 mg PO BEDTIME [facility] Last Admin: 11/26/21 20:37 Dose: 40 mg Documented by: BRETA Sodium Chloride (0.9 % Sodium Chloride Flush 3 Ml Syringe) 3 ml IVFLUSH QSHIFT [facility] Last Admin: 11/27/21 07:24 Dose: 3 ml Documented by: LEIF Tramadol HCl (Tramadol Hcl 50 Mg Tablet) 50 mg PO Q8H [facility] Last Admin: 11/27/21 05:53 Dose: Not Given Documented by: BERTA Non-Admin Reason: See Note Vitamin D (Cholecalciferol (Vitamin D3) 25 Mcg Tablet) 50 mcg PO DAILY [facility] Last Admin: 11/27/21 08:55 Dose: 50 mcg Documented by: LEIF Labs CBC & Chem 7: 11/27/21 07:54 11/27/21 07:54 Labs: Laboratory Results - last 24 hr 11/27/21 11/27/21 11/27/21 04:15 06:06 07:54 MCV 77.6 L MCH 22.8 L MCHC 29.4 L RDW 14.6 Plt Count 399 MPV 9.3 L Immature Gran % (Auto) 1.8 H Neut % (Auto) 77.2 H Lymph % (Auto) 10.5 L [place] % (Auto) 8.6 Eos % (Auto) 1.7 Baso % (Auto) 0.2 Lymph # (Auto) 1.5 [place] # (Auto) 1.2 Eos # (Auto) 0.2 Baso # (Auto) 0.0 Abs Immat Gran (auto) 0.25 H Absolute Neuts (auto) 10.6 H Absolute Nucleated RBC 0.000 Nucleated RBC % (auto) 0.0 O2 Saturation 88.0 98.0 ABG pH at Pt Temp 7.48 H 7.47 H ABG pH (Temp Correct) 7.47 H 7.47 H ABG pCO2 at Pt Temp 40 38 ABG pCO2 (Temp Corrct 42 39 ABG pO2 at Pt Temp 64 L 114 H ABG pO2 (Temp Correct 70 L 115 H ABG HCO3 30 H 28 H ABG Base Excess (Actual) 6.6 4.8 Anion Gap Estim Creat Clear Calc Estimated GFR Random Glucose Calcium Total Bilirubin AST ALT Alkaline Phosphatase Total Protein Albumin 11/27/21 07:54 MCV MCH MCHC RDW Plt Count MPV Immature Gran % (Auto) Neut % (Auto) Lymph % (Auto) [place] % (Auto) Eos % (Auto) Baso % (Auto) Lymph # (Auto) [place] # (Auto) Eos # (Auto) Baso # (Auto) Abs Immat Gran (auto) Absolute Neuts (auto) Absolute Nucleated RBC Nucleated RBC % (auto) O2 Saturation ABG pH at Pt Temp ABG pH (Temp Correct) ABG pCO2 at Pt Temp ABG pCO2 (Temp Corrct ABG pO2 at Pt Temp ABG pO2 (Temp Correct ABG HCO3 ABG Base Excess (Actual) Anion Gap 12 Estim Creat Clear Calc 101.4 Estimated GFR > 60 Random Glucose 98 Calcium 8.1 L Total Bilirubin 0.5 AST 68 H ALT 23 Alkaline Phosphatase 342 H D Total Protein 5.1 L Albumin 2.3 L Microbiology Microbiology Results: Microbiology 11/25/21 08:56 Blood Culture - Preliminary Blood - Venous No growth after 48 hours. 11/25/21 08:22 Blood Culture - Preliminary Blood - Venous No growth after 48 hours. Assessment and Plan (1) Acute hypoxemic respiratory failure due to COVID-19: Status: Acute Assessment and Plan: 46 year old women admitted with covid 19 hypoxia. Overnight patient developed hypoxia and was seen by the Intensive Care p.a., initially was thought the patient would have to be intubated however she was placed on BiPAP with good result. . Morning patient seemed to continue to deteriorate becoming quite tachycardic and tachypneic. She also developed ashy sutherland color to her legs arms and trunk despite oxygen saturation being elevated and ABGs being within acceptable limits. She appeared to be quite tired out and continued to state that she could not breathe. Because the case with Dr. Thomas, coal dumping equipment operator. He was agreeable to intubating patient and transferring to ICU care. Patient's sister and significant other were both notified. Covid 19 hypoxia. Immunocompromised Start Remdesivir Decadron Supplemental oxygen Vitamin C, D ID following Inflam markers elevated, Procal 1.39 Hx of Lupus and RA Hold Plaquenil, sulfasazine and prednisone Hypothyroidism Levothyroxine Mental Health continue home medications DVT prophylaxis with [facility] Attending Dr. Garner Full code Quality Stroke Does the patient have a stroke diagnosis?: No VTE Prior VTE?: No VTE Risk Level:: Medical - moderate - high VTE Device Contraindication: Treatment Not Indicated VTE Drug Contraindication: N/A - Med Ordered
[2021-11-27 11:45] LABS: Venous Blood Gas Refer to POC result
[2021-11-27 11:47] LABS: VBG Base Excess 5.7 mmol/L; VBG HCO3 29 mmol/L (22-26); VBG pCO2 39 mmHg; VBG pH 7.48 (7.32-7.43); VBG pO2 98 mmHg
--- NOTE | 2021-11-27 12:55 | PC.NURSE ---
dr willams the intensives at bedside preparing for incubation, pt continuos on being tachypnic resp ranges from 35-48 unable to settle in, pt keeps stating that she cant breath. mauri and johnny from respiratory and laboratory apparatus glass grinder also at bedside. meds pushed by the cnrp 30mh of propofal pushed initially bp 139/75, hr 112, 95% on room air at 1300 pushed another 30mg of propofal pt was still moving some bp at this time 126/81, hr 114 sating at 95% on bipap at 1301 pushed additional 30mg of propofal and 35mg of rocuronium 7.[address], 22 at the lip vent setings 20/385/10peep/100%
[2021-11-27] MEDS: propofoL 200 MG/20 ML VIAL 100 MG IVPUSH (13:00)
[2021-11-27] MEDS: Rocuronium Bromide 50 MG/5 ML VIAL 35 MG IVPUSH (13:01)
--- NOTE | 2021-11-27 13:56 | PC.NURSE ---
spoke to dr willams called because the pt is breathing over the vent, and sats ranges from 94-90% verbal order to given 2mg versed push and versed drip kimberly willams in process to put all the orders in
--- NOTE | 2021-11-27 13:58 | PC.NURSE ---
pharmacist increased the propfal drip to 75mcg/kg/min dr willams aware
[2021-11-27] MEDS: Midazolam HCl/PF 2 MG/2 ML VIAL IVPUSH (14:10)
--- NOTE | 2021-11-27 14:10 | P.HPCC_ITS ---
History of Present Illness Date of Service: 11/27/21 Attending physician on admission: Jonathan Thomas Chief Complaint: shortness of breath 46-year-old female with mixed connective tissue disease with features of both lupus and rheumatoid arthritis on prednisone maintenance and Plaquenil several days of progressive dyspnea COVID positive and developed acute hypoxemic respiratory failure with a pattern of bilateral ARDS and COVID 19 pneumonitis on maximum noninvasive ventilation breathing 40 2 times a minute clearly failing and was intubated urgently with the use of propofol and rocuronium without any complication and because of combined immunosuppression but no neutropenia I am I will obtain a sputum specimen potentially cover with antibiotics and will attempt to add baricitinib to a high-dose steroid and withhold the Plaquenil for now and will give 1 stat dose of probably VAC vancomycin and and meropenem to cover her until the sputum Gram stain comes back because of the purulence of the sputum Review of Systems Review of Systems: Yes Unobtainable due to mental status PMFSH Past Medical History Medical History (Updated 11/27/21 @ 14:15 by Jonathan Thomas MD) CVA (cerebral vascular accident) Fibromyalgia Hypothyroid Lupus Mixed connective tissue disease PAD (peripheral artery disease) Proteinuria Rheumatoid arthritis Varicose veins of right lower extremity with inflammation Family History Family History Father No problems noted. 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) Alcohol intake: never Patient Tobacco Use Status: Current everyday Tobacco user Tobacco use type: Cigarette Cigarette Packs Per Day: 1 Cigarettes Per Day: 20.0 Years Smoked: 29 Second Hand Smoke Exposure: No Advance Directives: Yes Advance Directives on File: Yes Advance Directives Date on File: 11/26/21 service: No Current occupational status: unemployed and disabled Meds Allergies Allergy/AdvReac Type Severity Reaction Status Date / Time clarithromycin Allergy Intermediate FACIAL Verified 04/18/21 13:25 [CLARITHROMYCIN] SWELLING/REDNESS, facial rash, facial rash, facial rash, facial rash Active Medications: Current Medications Acetaminophen (Acetaminophen 325 Mg Tablet) 650 mg PO Q6H PRN PRN Reason: Pain, Mild (Pain Scale 1-3) Acetaminophen/Butalbital/Caffeine (Butalb/Acetamin/Caff 50/325/40 Tablet) 2 tab PO DAILY PRN PRN Reason: headache Albuterol/Ipratropium (Albuterol/Iprat 2.5/0.5mg 3 Ml Ampul.Neb) 3 ml INHALE RQ4H WHILE AWAKE [facility] Last Admin: 11/27/21 11:44 Dose: 3 ml Documented by: Apixaban (Apixaban 5 Mg Tablet) 5 mg PO BID [facility] Last Admin: 11/27/21 08:54 Dose: 5 mg Documented by: Ascorbic Acid (Ascorbic Acid 500 Mg Tablet) 1,000 mg PO DAILY [facility] Last Admin: 11/27/21 08:55 Dose: 1,000 mg Documented by: Baricitinib (Baricitinib 2 Mg Tablet) 4 mg PO Q24H [facility] Stop: 12/10/21 14:16 Bupropion HCl (Bupropion Hcl Xl 150 Mg Tab.Er.24h) 150 mg PO DAILY [facility] Last Admin: 11/27/21 08:54 Dose: 150 mg Documented by: Dexamethasone Sodium Phosphate (Dexamethasone Sod Phosphate 4 Mg/Ml Vial) 6 mg IVPUSH DAILY [facility] Stop: 12/04/21 09:01 Last Admin: 11/27/21 08:53 Dose: 6 mg Documented by: Fluoxetine HCl (Fluoxetine Hcl 20 Mg Capsule) 40 mg PO DAILY [facility] Last Admin: 11/27/21 08:55 Dose: 40 mg Documented by: Folic Acid (Folic Acid 1 Mg Tablet) 1 mg PO DAILY [facility] Last Admin: 11/27/21 08:54 Dose: 1 mg Documented by: Remdesivir 100 mg/ Sodium (Chloride) 250 mls @ 125 mls/hr IV Q24H [facility] Stop: 11/29/21 15:14 Propofol (Diprivan) 1,000 mg in 100 mls @ 0 mls/hr IVCONT .Q0M [facility]; Protocol Midazolam HCl (Versed) 50 mg in 50 mls @ 2 mls/hr IVCONT .Q24H [facility] Levothyroxine Sodium (Levothyroxine Sodium 175 Mcg Tablet) 175 mcg PO DAILY@0630 [facility] Last Admin: 11/27/21 07:23 Dose: 175 mcg Documented by: Loratadine (Loratadine 10 Mg Tablet) 10 mg PO DAILY [facility] Last Admin: 11/27/21 08:53 Dose: 10 mg Documented by: Lorazepam (Lorazepam 1 Mg Tablet) 1 mg PO BID PRN PRN Reason: Anxiety Last Admin: 11/27/21 09:35 Dose: 1 mg Documented by: Morphine Sulfate (Morphine Sulfate 2 Mg/Ml Cartridge) 2 mg IVPUSH Q30M PRN; Protocol PRN Reason: Shortness of Breath Last Admin: 11/27/21 09:35 Dose: 2 mg Documented by: Multivitamins/Vitamin C (Multivitamin Tablet) 1 tab PO DAILY [facility] Last Admin: 11/27/21 08:54 Dose: 1 tab Documented by: Ondansetron HCl (Ondansetron Hcl 4 Mg/2 Ml Vial) 4 mg IVPUSH Q8H PRN PRN Reason: Nausea and Vomiting Pantoprazole Sodium (Pantoprazole Sodium 40 Mg/10 Ml Vial) 40 mg IVPUSH BID@0630,1630 [facility] Last Admin: 11/27/21 06:37 Dose: 40 mg Documented by: Pharmacy Consult (Consult Rx Perform Med Rec) 1 each MISCELLANE ONCE PRN PRN Reason: Consult order Pravastatin Sodium (Pravastatin Sodium 40 Mg Tablet) 40 mg PO BEDTIME [facility] Last Admin: 11/26/21 20:37 Dose: 40 mg Documented by: Sodium Chloride (0.9 % Sodium Chloride Flush 3 Ml Syringe) 3 ml IVFLUSH QSHIFT [facility] Last Admin: 11/27/21 07:24 Dose: 3 ml Documented by: Tramadol HCl (Tramadol Hcl 50 Mg Tablet) 50 mg PO Q8H [facility] Last Admin: 11/27/21 05:53 Dose: Not Given Documented by: Vitamin D (Cholecalciferol (Vitamin D3) 25 Mcg Tablet) 50 mcg PO DAILY [facility] Last Admin: 11/27/21 08:55 Dose: 50 mcg Documented by: Home Medications Medication Instructions Recorded Confirmed Last Taken Type lorazepam 1 mg tablet 1 mg PO BID PRN 08/15/20 11/25/21 08/30/20 History pravastatin 40 mg tablet 40 mg PO BEDTIME 08/15/20 11/25/21 08/30/20 History fluoxetine 40 mg capsule (Prozac) 40 mg PO DAILY 08/20/20 11/25/21 08/30/20 History albuterol sulfate 2.5 mg INHALATION Q6H PRN 08/31/20 11/25/21 08/30/20 History albuterol sulfate 90 mcg/actuation 2 puff INHALATION Q4H PRN 08/31/20 11/25/21 08/30/20 History aerosol inhaler bupropion HCl 100 mg tablet,12 hr 100 mg PO BID 08/31/20 11/25/21 08/30/20 History sustained-release [id number] 2 tab PO DAILY PRN 08/31/20 11/25/21 08/30/20 History 50 mg-325 mg-40 mg tablet prednisone 5 mg tablet 5 mg PO DAILY 08/31/20 11/25/21 08/30/20 History nortriptyline 75 mg capsule 75 mg PO BEDTIME 04/18/21 11/25/21 Unknown History apixaban 5 mg tablet 5 mg PO BID 10/21/21 11/25/21 Unknown History fluticasone propionate 220 1 puff INHALATION BID 10/21/21 11/25/21 Unknown History mcg/actuation HFA aerosol inhaler (Flovent HFA) levothyroxine 175 mcg tablet 175 mcg PO DAILY 10/21/21 11/25/21 Unknown History loratadine 10 mg tablet 10 mg PO DAILY 10/21/21 11/25/21 Unknown History multivitamin 1 tab PO DAILY 10/21/21 11/25/21 Unknown History sulfasalazine 500 mg tablet 500 mg PO BID 10/21/21 11/25/21 Unknown History tramadol 50 mg tablet 50 mg PO Q8H 10/21/21 11/25/21 Unknown History Physical Exam Vital Signs: Vital Signs: Last Vital Signs Temp 100 F 11/27/21 04:02 Pulse 127 H 11/27/21 13:36 Resp 20 11/27/21 13:36 BP 136/80 11/27/21 13:36 Pulse Ox 94 11/27/21 13:36 Oxygen Flow Rate 4 11/25/21 07:42 BMI result Body Mass Index 27.4 she was awake and understood was able to nod but clearly having trouble with providing history due to profound hypoxemia cardiac exam with adequate bilateral carotid upstrokes no neck vein distension no gallops the periphery was becoming somewhat more dusky but there was no distinct acrocyanosis but there was clubbing and there was no livedo lungs with coarse bilateral inspiratory and expiratory sounds but no wheezing abdomen soft with no again a megaly no peripheral edema Results Labs CBC and Chem 7: 11/27/21 07:54 11/27/21 07:54 Labs: Laboratory Results - last 24 hr 11/27/21 11/27/21 11/27/21 04:15 06:06 07:54 MCV 77.6 L MCH 22.8 L MCHC 29.4 L RDW 14.6 Plt Count 399 MPV 9.3 L Immature Gran % (Auto) 1.8 H Neut % (Auto) 77.2 H Lymph % (Auto) 10.5 L [place] % (Auto) 8.6 Eos % (Auto) 1.7 Baso % (Auto) 0.2 Lymph # (Auto) 1.5 [place] # (Auto) 1.2 Eos # (Auto) 0.2 Baso # (Auto) 0.0 Abs Immat Gran (auto) 0.25 H Absolute Neuts (auto) 10.6 H Absolute Nucleated RBC 0.000 Nucleated RBC % (auto) 0.0 O2 Saturation 88.0 98.0 ABG pH at Pt Temp 7.48 H 7.47 H ABG pH (Temp Correct) 7.47 H 7.47 H ABG pCO2 at Pt Temp 40 38 ABG pCO2 (Temp Corrct 42 39 ABG pO2 at Pt Temp 64 L 114 H ABG pO2 (Temp Correct 70 L 115 H ABG HCO3 30 H 28 H ABG Base Excess (Actual) 6.6 4.8 VBG pH VBG pCO2 VBG pO2 VBG HCO3 VBG O2 Saturation VBG Base Excess Anion Gap Estim Creat Clear Calc Estimated GFR Random Glucose Calcium Total Bilirubin AST ALT Alkaline Phosphatase Total Protein Albumin 11/27/21 11/27/21 07:54 11:39 MCV MCH MCHC RDW Plt Count MPV Immature Gran % (Auto) Neut % (Auto) Lymph % (Auto) [place] % (Auto) Eos % (Auto) Baso % (Auto) Lymph # (Auto) [place] # (Auto) Eos # (Auto) Baso # (Auto) Abs Immat Gran (auto) Absolute Neuts (auto) Absolute Nucleated RBC Nucleated RBC % (auto) O2 Saturation ABG pH at Pt Temp ABG pH (Temp Correct) ABG pCO2 at Pt Temp ABG pCO2 (Temp Corrct ABG pO2 at Pt Temp ABG pO2 (Temp Correct ABG HCO3 ABG Base Excess (Actual) VBG pH 7.48 H VBG pCO2 39 VBG pO2 98 VBG HCO3 29 H VBG O2 Saturation 97.0 VBG Base Excess 5.7 Anion Gap 12 Estim Creat Clear Calc 101.4 Estimated GFR > 60 Random Glucose 98 Calcium 8.1 L Total Bilirubin 0.5 AST 68 H ALT 23 Alkaline Phosphatase 342 H D Total Protein 5.1 L Albumin 2.3 L Assessment and Plan (1) Acute hypoxemic respiratory failure due to COVID-19: Status: Acute (2) Acute exacerbation of chronic obstructive airways disease: Status: Acute (3) Mixed connective tissue disease: Status: Acute I intubated the patient without complication and she will remain sedated and ventilated and I will cover her benzodiazepine dependence with a Versed drip in addition to propofol probably cover the sputum as well because of the immunosuppression issue until the g stain comes back negative and will add baricitinib to her immune suppression along with high-dose steroid
--- NOTE | 2021-11-27 14:11 | PC.NURSE ---
pt given a bolus of midazolam 2mg bucking the vent vs stable hr 123, 104/54
--- NOTE | 2021-11-27 14:16 | W.PM.CCHP ---
Procedures Date of Service Date of Service: 11/27/21 Intubation Intubation Comments: utilizing IV propofol and 0.5 milligrams/kilogram of rocuronium intubation performed very easily in a few seconds with excellent visualization of the vocal cords no trauma no aspiration absolutely no complications oxygen saturations at 90% Consent for Procedure: Elective - informed consent obtained Time out performed: Yes Sedative: propofol Paralytic: rocuronium Laryngoscope: fiber optic video scope ET tube size: 7.5 ET tube uncuffed: No Tube secured depth (cm): 22 Tube placement confirmation: visualized tube passing through cords, equal breath sounds bilaterally, no breath sounds over epigastrium and confirmation by capnometry Patient tolerated procedure: well and no complications Intubation complications: none
[2021-11-27] MEDS: propofoL 1,000 MG/100 ML VIAL 30.62 MG IVCONT (14:17)
[2021-11-27] MEDS: Midazolam HCl/NS 50 MG/50 ML PLAST..BAG IVCONT (14:26)
--- NOTE | 2021-11-27 15:09 | PC.NURSE ---
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
--- NOTE | 2021-11-27 15:58 | P.CNID_ITS ---
History of Present Illness Data of Consult Service Date: 11/27/21 Requesting physician: April Jeff Primary Care Provider: Unknown Physician HPI Reason for consult: COVID,severe She presents to hospital with shortness of breath already on Prednisone. She has RA and lupus and is on chronic steroids She is intubated and has Lara Review of Systems Verdana 4l Review of Systems: Yes all other systems are reviewed and Verdana 4d are negative and Unobtainable due to mental condition PMFSH Past Medical History Medical History (Updated 12/06/21 @ 13:00 by Antoni Magdaleno MD) CVA (cerebral vascular accident) Fibromyalgia Hypothyroid Immunosuppression due to chronic steroid use Lupus Mixed connective tissue disease PAD (peripheral artery disease) Proteinuria Rheumatoid arthritis Varicose veins of right lower extremity with inflammation Family History Family History Father No problems noted. 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) Alcohol intake: never Patient Tobacco Use Status: Current everyday Tobacco user Tobacco use type: Cigarette Cigarette Packs Per Day: 1 Cigarettes Per Day: 20.0 Years Smoked: 29 Second Hand Smoke Exposure: No Advance Directives Date on File: 11/26/21 service: No Current occupational status: unemployed and disabled Meds Allergies Allergy/AdvReac Type Severity Reaction Status Date / Time clarithromycin Allergy Intermediate FACIAL Verified 04/18/21 13:25 [CLARITHROMYCIN SWELLING/REDNE ] SS, facial rash, facial rash, facial rash, facial rash Active Medications: Current Medications Albuterol/Ipratropium (Albuterol/Iprat 2.5/0.5mg 3 Ml Ampul.Neb) 3 ml INHALE RQ4H WHILE AWAKE [facility] Last Admin: 11/27/21 11:44 Dose: 3 ml Documented by: Apixaban (Apixaban 5 Mg Tablet) 5 mg PO BID [facility] Last Admin: 11/27/21 08:54 Dose: 5 mg Documented by: Baricitinib (Baricitinib 2 Mg Tablet) 4 mg PO Q24H [facility] Stop: 12/10/21 14:16 Dexamethasone Sodium Phosphate (Dexamethasone Sod Phosphate 4 Mg/Ml Vial) 6 mg IVPUSH DAILY [facility] Stop: 12/04/21 09:01 Last Admin: 11/27/21 08:53 Dose: 6 mg Documented by: Remdesivir 100 mg/ Sodium (Chloride) 250 mls @ 125 mls/hr IV Q24H [facility] Stop: 11/29/21 15:14 Last Admin: 11/27/21 15:00 Dose: 125 mls/hr Documented by: Propofol (Diprivan) 1,000 mg in 100 mls @ 0 mls/hr IVCONT .Q0M [facility]; Protocol Last Titration: 11/27/21 15:01 Dose: 50 mcg/kg/min, 20.41 mls/hr Documented by: Midazolam HCl (Versed) 50 mg in 50 mls @ 2 mls/hr IVCONT .Q24H [facility] Last Admin: 11/27/21 14:26 Dose: 2 mg/hr, 2 mls/hr Documented by: Levothyroxine Sodium (Levothyroxine Sodium 175 Mcg Tablet) 175 mcg PO DAILY@0630 [facility] Last Admin: 11/27/21 07:23 Dose: 175 mcg Documented by: Morphine Sulfate (Morphine Sulfate 2 Mg/Ml Cartridge) 2 mg IVPUSH Q30M PRN; Protocol PRN Reason: Shortness of Breath Last Admin: 11/27/21 09:35 Dose: 2 mg Documented by: Ondansetron HCl (Ondansetron Hcl 4 Mg/2 Ml Vial) 4 mg IVPUSH Q8H PRN PRN Reason: Nausea and Vomiting Pantoprazole Sodium (Pantoprazole Sodium 40 Mg/10 Ml Vial) 40 mg IVPUSH BID@063 0,1630 [facility] Last Admin: 11/27/21 06:37 Dose: 40 mg Documented by: Home Medications Medication Instructions Recorded Confirmed Last Taken Type lorazepam 1 mg 1 mg PO BID PRN 08/15/20 11/25/21 08/30/20 History tablet pravastatin 40 mg 40 mg PO BEDTIME 08/15/20 11/25/21 08/30/20 History tablet fluoxetine 40 mg 40 mg PO DAILY 08/20/20 11/25/21 08/30/20 History capsule (Prozac) albuterol sulfate 2.5 mg 08/31/20 11/25/21 08/30/20 History INHALATION Q6H PRN albuterol sulfate 2 puff 08/31/20 11/25/21 08/30/20 History 90 mcg/actuation INHALATION Q4H PRN aerosol inhaler bupropion HCl 100 100 mg PO BID 08/31/20 11/25/21 08/30/20 History mg tablet,12 hr sustained-release butalbital-acetam 2 tab PO DAILY 08/31/20 11/25/21 08/30/20 History inophen-caffeine PRN 50 mg-325 mg-40 mg tablet prednisone 5 mg 5 mg PO DAILY 08/31/20 11/25/21 08/30/20 History tablet nortriptyline 75 75 mg PO BEDTIME 04/18/21 11/25/21 Unknown History mg capsule apixaban 5 mg 5 mg PO BID 10/21/21 11/25/21 Unknown History tablet fluticasone 1 puff 10/21/21 11/25/21 Unknown History propionate 220 INHALATION BID mcg/actuation HFA aerosol inhaler (Flovent HFA) levothyroxine 175 175 mcg PO DAILY 10/21/21 11/25/21 Unknown History mcg tablet loratadine 10 mg 10 mg PO DAILY 10/21/21 11/25/21 Unknown History tablet multivitamin 1 tab PO DAILY 10/21/21 11/25/21 Unknown History sulfasalazine 500 500 mg PO BID 10/21/21 11/25/21 Unknown History mg tablet tramadol 50 mg 50 mg PO Q8H 10/21/21 11/25/21 Unknown History tablet Physical Exam Verdana 4l Vital Signs: Verdana 4d Verdana 4d Vital Signs: Verdana 4d Verdana 4Bd Last Vital Signs Verdana 4d Linux Server Engineer New 4d Linux Server Engineer New 4d Temp 100 F 11/27/21 04:02 Linux Server Engineer New 4d Pulse 118 H 11/27/21 15:01 Linux Server Engineer New 4d Resp 24 H 11/27/21 14:33 BP 105/56 L 11/27/21 15:01 Pulse Ox 93 11/27/21 14:33 Oxygen Flow Rate 4 11/25/21 07:42 BMI result Body Mass Index 27.4 Const: General: cooperative Eyes: General: appearance normal, both eyes and all related structures Resp: Effort & Inspection: normal respiratory effort Cardio: Rate: regular rate GI: Palpation (GI): nontender Skin: General skin exam: no rashes or lesions noted Results Labs CBC & Chem 7: 12/11/21 04:08 12/17/21 05:37 Labs: Short CBC 11/27/21 Range/Units 07:54 WBC 13.8 H (4.8-10.8) X10*3/uL Hgb 9.7 L (12.0-16.0) g/dl Hct 33.0 L (37.0-47.0) % Plt Count 399 (160-400) X10*3/uL BMP 11/27/21 07:54 Sodium 137 Potassium 3.8 Chloride 100 Carbon Dioxide 29 BUN 13 Creatinine 0.64 Calcium 8.1 L Liver Function 11/27/21 Range/Units 07:54 Total Bilirubin 0.5 (0.0-1.0) mg/dL AST 68 H (5-31) U/L ALT 23 (0-31) U/L Alkaline Phosphatase 342 H D (39-117) U/L Albumin 2.3 L (3.5-5.0) g/dL Microbiology Microbiology Results: Microbiology 11/25/21 08:56 Blood - Venous Blood Culture - Preliminary No growth after 48 hours. 11/25/21 08:22 Blood - Venous Blood Culture - Preliminary No growth after 48 hours. Assessment and Plan (1) Mixed connective tissue disease: Status: Acute (2) Acute hypoxemic respiratory failure due to COVID-19: Status: Acute She has sudden onset of respiratory failure and is at high risk dying due to COVID She is on steroids,Remdesivir and baricitinib She is at risk for more immunosuppression due to baricitinib so would give Ceftriaxone or Kefzol due to leg concern cellulitis (3) Cellulitis of right leg: Status: Acute
[2021-11-27] MEDS: 0.9 % Sodium Chloride 1,000 ML 75 ML IVCONT (19:00)
[2021-11-27 19:09] LABS: Appearance Urine CLEAR; Color Urine DK YELLOW; Glucose Urine UA NEG (NEG); Leukocyte Esterase Urine NEG (NEG); Nitrite Urine NEG (NEG); PH 5.5 (5.0-8.0); Specific Gravity - Urine >= 1.030 (1.005-1.025); Urine Blood 1+ (NEG); Urine Ketones 15 MG/DL (NEG); Urine Protein 1+ MG/DL (NEG-TRACE)
[2021-11-27] MEDS: vancomycin HCL 1,000 MG in 0.9 % Sodium Chloride 250 ML 270 MG IV (19:12)
[2021-11-27] MEDS: propofoL 1,000 MG/100 ML VIAL 20.41 MG IVCONT (19:12)
[2021-11-27 19:23] LABS: Squamous Epithelial Cell Urine TRACE /LPF
[2021-11-27 19:25] LABS: Bacteria Urine 1+ /LPF
[2021-11-27 19:38] LABS: Granular Casts Urine 0-2 /LPF
--- NOTE | 2021-11-27 22:32 | HE.PHANOTE ---
RE MEROPENEM Per Dr Tabor, meropenem approved Thanks Gary
--- NOTE | 2021-11-27 23:07 | MHC.PIE ---
Addendum entered by Taran Veliz RN 11/28/21 01:24: RR UP TO 30'S, MAP BACK DOWN TO 50'S - ORDER TO CUT VERSED TO 1 MG/HR FROM 2MG/HR AND GIVE 500ML NS BOLUS. ORDER INITIATED. Addendum entered by Taran Veliz RN 11/27/21 23:55: MAP 60 Addendum entered by Taran Veliz RN 11/27/21 23:54: URINE OUT PUT IMPROVE THIS HOUR - 135ML OUTPUT. MAP Original Note: LOW URINE OUT PUT 40ML PER PREV RN UNTIL 7P 33ML FROM 7P-11P - AUBREE PA ORDER TO INCREASE IVF TO 100ML/HR - ORDER INITIATED AT THIS TIME. MAP 55-59 - DECREASED SEDATION - MAP >60 - AUBREE PA CONFIRMED GOAL MAP, KEEP >60.
[2021-11-28] VITALS (34 sets, daily range): BP systolic 84–114; BP diastolic 41–64; PULSE 92–120; RESP 22–33; TEMP 34–39.3; O2SAT 92–98; BMI 24.7
[2021-11-28] MEDS: 0.9 % Sodium Chloride 500 ML IV (00:40)
[2021-11-28] MEDS: 0.9 % Sodium Chloride 1,000 ML 100 ML IVCONT ×3 (01:00→21:30)
[2021-11-28] MEDS: propofoL 1,000 MG/100 ML VIAL 12.25 MG IVCONT (03:30)
[2021-11-28 05:30] LABS: VBG Base Excess 0.7 mmol/L; VBG HCO3 24 mmol/L (22-26); VBG pCO2 33 mmHg; VBG pH 7.46 (7.32-7.43); VBG pO2 100 mmHg
[2021-11-28 05:39] LABS: Venous Blood Gas Refer to POC result
[2021-11-28 05:50] LABS: MANUAL DIFF FLAG NO
[2021-11-28 05:57] LABS: Basophils Absolute Auto 0.1 X10*3/uL (0.0-0.2); Basophils Percent Auto 0.3 % (0-2); Eosinophils Absolute Auto 0.6 X10*3/uL (0.0-0.4); Eosinophils Percent Auto 3.7 % (0-4); Hematocrit 30.4 % (37.0-47.0); Hemoglobin 8.6 g/dl (12.0-16.0); Imm Gran Abs Auto 0.23 X10*3/uL (0.00-0.03); Imm Gran Pct Auto 1.5 % (0.0-0.4); Lymphocytes Absolute Auto 1.9 X10*3/uL (1.2-4.9); Lymphocytes Percent Auto 12.2 % (20-40); Mean Corpuscular HGB Conc 28.3 g/dl (31.0-35.0); Mean Corpuscular Hemoglobin 22.5 pg (27.0-33.0); Mean Corpuscular Volume 79.6 fL (80.0-98.0); Mean Platelet Volume 9.3 fL (9.4-12.3); Monocytes Absolute Auto 0.9 X10*3/uL (0.1-1.2); Monocytes Percent Auto 5.8 % (2-11); Neutrophils Absolute Auto 12.1 x10*3/uL (2.0-8.3); Neutrophils Percent Auto 76.5 % (45-73); Platelet Count 379 X10*3/uL (160-400); Red Blood Count 3.82 X10*6/uL (4.20-5.50); Red Cell Distribution Width 14.6 % (11.0-16.0); White Blood Count 15.8 X10*3/uL (4.8-10.8)
[2021-11-28 06:17] LABS: Alanine Aminotransferase 28 U/L (0-31); Albumin Level 2.1 g/dL (3.5-5.0); Alkaline Phosphatase 308 U/L (39-117); Anion Gap 12 (12-20); Aspartate Amino Transferase 75 U/L (5-31); Bilirubin Total 0.5 mg/dL (0.0-1.0); Blood Urea Nitrogen 15 mg/dL (9-16); Calcium 7.8 mg/dL (8.4-10.2); Carbon Dioxide 26 mmol/L (22-29); Chloride 106 mmol/L (96-108); Creatinine Clr Calc Pharmacy 99.8; Estimated Glomerular Filt Rate > 60; Glucose Random 64 mg/dL (60-115); Sodium 140 mmol/L (135-145); Total Protein 4.6 g/dL (6.5-8.0)
[2021-11-28] MEDS: Pantoprazole Sodium 40 MG/10 ML VIAL IVPUSH ×2 (06:27→15:39)
[2021-11-28] MEDS: Levothyroxine Sodium 175 MCG TABLET PO (06:27)
[2021-11-28] MEDS: Albuterol/Iprat 2.5/0.5MG 3 ML AMPUL.NEB INHALE ×4 (07:34→19:47)
--- NOTE | 2021-11-28 07:44 | PHA.PROG ---
Admission Date/Time: November 25, 2021 13:19 Indication: Resp. Infection Weight in k.4 kg Adjusted body weight in Kg: Clark body weight in Kg: Obesity Dosing Indication % IBW: Serum Creatinine - Last 168 Hours 11/25/21 11/26/21 11/27/21 08:22 06:32 07:54 Creatinine 0.79 0.72 0.64 11/28/21 05:22 Creatinine 0.62 Estimated CrCl and GFR - Last 168 Hours 11/25/21 11/26/21 11/27/21 08:22 06:32 07:54 Estim Creat Clear Calc 82.1 90.1 101.4 Estimated GFR > 60 > 60 > 60 11/28/21 05:22 Estim Creat Clear Calc 99.8 Estimated GFR > 60 Vancomycin Loading Dose: 1000 mg x1 Current Vancomycin Dosing Regimen: 1000 mg q12h Vancomycin Monitoring using AUC goal of 400 - 600 range with trough as surrogate marker: Recommending 1000 mg q12h which is predicting a AUC of 466 with a trough of 13.4. Date and Time for next Vancomycin Level to be drawn: 11/29 @ 0600 Pharmacist Comments on Vancomycin Plan: Vancomycin dosing will take advantage of GRAYL as a clinical decision support tool that uses Bayesian modeling to calculate individual patient's pharmacokinetic parameters and forecast the patient's drug concentration time course with the target goal AUC 24 range of 400 - 600 mg/L/hr.
[2021-11-28] MEDS: vancomycin HCL 1,000 MG in 0.9 % Sodium Chloride 250 ML 270 MG IV ×2 (08:10→20:36)
[2021-11-28] MEDS: Ampicillin Sodium/Sulbactam Na 1.5 GM in 0.9 % Sodium Chloride 100 ML IV ×3 (08:10→20:36)
[2021-11-28] MEDS: Apixaban 5 MG TABLET PO ×2 (08:11→20:36)
[2021-11-28] MEDS: dexAMETHasone sod phosphate 4 MG/ML VIAL 6 MG IVPUSH (08:11)
[2021-11-28 08:22] LABS: INTERNATIONAL NORM RATIO 2.3 (0.9-1.1); Prothrombin Time 27.1 SEC (9.9-13.0)
[2021-11-28] MEDS: propofoL 1,000 MG/100 ML VIAL 16.33 MG IVCONT ×3 (09:08→20:35)
[2021-11-28] MEDS: Midazolam HCl/NS 50 MG/50 ML PLAST..BAG IVCONT ×2 (09:08→23:47)
--- NOTE | 2021-11-28 10:26 | MHC.CLN ---
RE: CONSULT PT IS INTUBATED AND SEDATED RECOMMEND PROMOTE AT MAX GOAL RATE 35ML/HR WITH 240CC FREE WATER FLUSHES Q 6 HRS TO PROVIDE 840KCALS (1271KCALS WITH SEDATION; 23.5KCALS/KG), 52.5G PROTEIN (.97G/KG), 1665ML TOTAL WATER FROM FORMULA AND FLUSH (30.8ML/KG) START FORMULA AT 20ML/HR AND INCREASE BY 10ML Q 4HRS UNTIL MAX GOAL IS ACHIEVED MONITOR TOLERANCE, RESIDUALS AND LYTES SEE ALSO CLINICAL NUTRITION ASSESSMENT
--- NOTE | 2021-11-28 10:50 | P.CDIC_ITS ---
CDI Concurrent Query Documentation Clarification: PHYSICIAN'S DOCUMENTATION REQUEST Date of Query: 11/28/21 1050 Patient Name: Emiliana Rea Admit Date: 11/25/21 Dear Doctor, A review of the medical record indicates additional documentation may be needed. Please review below and update the documentation accordingly. Risk Factors/Clinical Indicators/Treatments Covid-19 with acute hypoxemic respiratory failure. Worsening respiratory failure RR 30/40 WBC 15.9 HR 108/115 BP 84/42 Temp 100.6 ICU intubated and mechanical vent. Vancomycin, Dexamethasone, Ampicillin, Albuterol., Remdesivir. CXR 11/26 - prominent patchy b/l airspace opacities can be seen in viral pneumonia. Please clarify which of the following most accurately describes the above abnormalities: * Viral Sepsis due to Covid-19 pneumonitis (ARDS) with acute hypoxemic respiratory failure (POA, Resolved) * Viral Sepsis due to Covid-19 with acute hypoxemic respiratory failure * Covid-19 with Acute hypoxemic respiratory failure * Systemic manifestations of infection, with 2 or more SIRS criteria which include: -Fever > 100.4F or hypothermia < 96.8 F -Leukocytosis - WBC > 12,000 or leukopenia, WBC < 4,000 or > 10% bands -Tachycardia > 90 beats/minute -Tachypnea - RR > 20 breaths/minute or PaCO2 < 32mmHg * Other * Unable to determine Use of terms such as suspected, likely, concern for, or probable (associated with a specific diagnosis that is being evaluated, monitored, or treated as if it exists) are acceptable and can be coded in the inpatient setting, when documented at the time of discharge. Thank you, Marci Steele [facility], CDIS Extension: [phone] Please use your independent medical judgment in providing your response. THIS QUERY IS PART OF THE PERMANENT MEDICAL RECORD
--- NOTE | 2021-11-28 13:04 | MHC.CM.PN ---
Pt now intubated in ICU with respiratory distress secondary to COVID. Prognosis is very guarded d/t her immunocompromised baseline status. Pt initially from home with [employer]ACHINE [employer]ED [employer]PER[employer] services. CM to follow
[2021-11-28] MEDS: fentaNYL citrate/PF 100 MCG/2 ML VIAL 50 MCG IVPUSH ×2 (13:48→14:06)
[2021-11-28] MEDS: fentaNYL citrate/NS 1,000 MCG/100 ML PLAST..BAG 5 MCG IVCONT (13:52)
[2021-11-28] MEDS: Midazolam HCl/PF 2 MG/2 ML VIAL 3 MG IVPUSH (14:16)
[2021-11-28] MEDS: Remdesivir 100 MG in 0.9 % Sodium Chloride 230 ML 115 MG IV (15:37)
--- NOTE | 2021-11-28 16:50 | P.PNCC_ITS ---
Subjective Subjective Date of Service: 11/28/21 Interval History: 46-year-old female with underlying mixed connective tissue disease who was on Plaquenil and prednisone maintenance presents with hypoxemic respiratory failure from COVID-19 pneumonitis and ARDS requiring intubation and because of purulence sputum sample for Gram stain is indicating significant polys with a mix of Gram-positive and Gram-negative organisms and given her degree of immunosuppression she was covered with empiric antibiotics but continues to spike temperatures but has been weaned to an FiO2 of 80% from 100 yesterday and on sedation developed ill and agitated delirium requiring an increase in sedation is so she now has a midazolam drip in addition to propofol and that is because of 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 and and we had to add fentanyl Critical Care Time (minutes): 60 Physical Exam Vital Signs: Vital Signs: Last Vital Signs Temp 102.2 F H 11/28/21 15:00 Pulse 113 H 11/28/21 16:00 Resp 22 H 11/28/21 15:00 BP 114/63 11/28/21 16:00 Pulse Ox 95 11/28/21 16:00 Oxygen Flow Rate 4 11/25/21 07:42 BMI result Body Mass Index 24.7 sedated and intubated but she was nonfocal neurologically sinus tachycardia with bilateral course of ventilatory sounds cardiac exam with good carotid upstrokes and no neck vein distension and no gallops abdomen benign and soft with no organomegaly Objective Data Labs CBC & Chem 7: 11/28/21 05:22 11/28/21 05:22 Labs: Laboratory Results - last 24 hr 11/27/21 11/28/21 11/28/21 19:04 05:22 05:22 WBC 15.8 H RBC 3.82 L Hgb 8.6 L Hct 30.4 L MCV 79.6 L MCH 22.5 L MCHC 28.3 L RDW 14.6 Plt Count 379 MPV 9.3 L Immature Gran % (Auto) 1.5 H Neut % (Auto) 76.5 H Lymph % (Auto) 12.2 L Williams % (Auto) 5.8 Eos % (Auto) 3.7 Baso % (Auto) 0.3 Lymph # (Auto) 1.9 Williams # (Auto) 0.9 Eos # (Auto) 0.6 H Baso # (Auto) 0.1 Abs Immat Gran (auto) 0.23 H Absolute Neuts (auto) 12.1 H Absolute Nucleated RBC 0.000 Nucleated RBC % (auto) 0.0 PT INR APTT VBG pH VBG pCO2 VBG pO2 VBG HCO3 VBG O2 Saturation VBG Base Excess Sodium 140 Potassium 4.0 Chloride 106 Carbon Dioxide 26 Anion Gap 12 BUN 15 Creatinine 0.62 Estim Creat Clear Calc 99.8 Estimated GFR > 60 Random Glucose 64 Calcium 7.8 L Total Bilirubin 0.5 AST 75 H ALT 28 Alkaline Phosphatase 308 H Total Protein 4.6 L Albumin 2.1 L Urine Color DK YELLOW Urine Appearance CLEAR Urine pH 5.5 Ur Specific [place] >= 1.030 H Urine Protein 1+ H Urine Glucose (UA) NEG Urine Ketones 15 Urine Blood 1+ H Urine Nitrite NEG Ur Leukocyte Esterase NEG Urine RBC 1-4 Urine WBC 1-4 Ur Squamous Epith Cells TRACE Urine Bacteria 1+ Granular Casts 0-2 11/28/21 11/28/21 05:24 07:46 WBC RBC Hgb Hct MCV MCH MCHC RDW Plt Count MPV Immature Gran % (Auto) Neut % (Auto) Lymph % (Auto) Williams % (Auto) Eos % (Auto) Baso % (Auto) Lymph # (Auto) Williams # (Auto) Eos # (Auto) Baso # (Auto) Abs Immat Gran (auto) Absolute Neuts (auto) Absolute Nucleated RBC Nucleated RBC % (auto) PT 27.1 H INR 2.3 H APTT 34.0 D VBG pH 7.46 H VBG pCO2 33 VBG pO2 100 VBG HCO3 24 VBG O2 Saturation 97.0 VBG Base Excess 0.7 Sodium Potassium Chloride Carbon Dioxide Anion Gap BUN Creatinine Estim Creat Clear Calc Estimated GFR Random Glucose Calcium Total Bilirubin AST ALT Alkaline Phosphatase Total Protein Albumin Urine Color Urine Appearance Urine pH Ur Specific [place] Urine Protein Urine Glucose (UA) Urine Ketones Urine Blood Urine Nitrite Ur Leukocyte Esterase Urine RBC Urine WBC Ur Squamous Epith Cells Urine Bacteria Granular Casts Microbiology Microbiology Results: Microbiology 11/27/21 19:04 Sputum - Induced Gram Stain - Final 11/27/21 19:04 Sputum - Induced Sputum Culture - Preliminary Culture too young to evaluate. 11/25/21 08:56 Blood - Venous Blood Culture - Preliminary No growth after 48 hours. 11/25/21 08:22 Blood - Venous Blood Culture - Preliminary No growth after 48 hours. Progress Note: A&P Assessment and plan (1) Mixed connective tissue disease: Status: Acute (2) Acute hypoxemic respiratory failure due to COVID-19: Status: Acute (3) Acute exacerbation of chronic obstructive airways disease: Status: Acute (4) Cellulitis of right leg: Status: Acute Assessment and Plan: we will re-culture for the continue temperature spiking cover broadly with anti staphylococcal vancomycin with good Gram-negative and as well as anaerobic coverage as well as coverage for potential intracellular organisms due to cell mediated immune deficiency Quality Stroke Does the patient have a stroke diagnosis?: No VTE Prior VTE?: No VTE Risk Level:: Medical - moderate - high VTE Device Contraindication: Treatment Not Indicated VTE Drug Contraindication: N/A - Med Ordered
[2021-11-28 17:57] LABS: Lactic Acid 0.9 mmol/L (0.5-2.0)
[2021-11-28 18:14] LABS: Appearance Urine CLEAR; Color Urine STRAW; Glucose Urine UA NEG (NEG); Leukocyte Esterase Urine NEG (NEG); Nitrite Urine NEG (NEG); UACC Culture Trigger NO; Urine Blood TRACE (NEG); Urine Ketones 15 MG/DL (NEG); Urine Protein NEG (NEG-TRACE)
[2021-11-28 18:23] LABS: Mucus Urine 1+ /LPF; Squamous Epithelial Cell Urine TRACE /LPF; WBC Urine 0 /HPF (0-4)
[2021-11-28 18:24] LABS: Amorphous Sediment Urine TRACE /LPF
[2021-11-28] MEDS: Albumin Human 25 % 100 ML IV ×2 (21:46→23:47)
[2021-11-28] MEDS: fentaNYL citrate/NS 1,000 MCG/100 ML PLAST..BAG 10 MCG IVCONT (23:50)
[2021-11-29] VITALS (41 sets, daily range): BP systolic 96–136; BP diastolic 48–79; PULSE 86–103; RESP 21–35; TEMP 34.2–38.9; O2SAT 89–98; BMI 24.3
[2021-11-29] MEDS: propofoL 1,000 MG/100 ML VIAL 12.25 MG IVCONT (01:25)
[2021-11-29] MEDS: Ampicillin Sodium/Sulbactam Na 1.5 GM in 0.9 % Sodium Chloride 100 ML IV ×4 (01:43→18:12)
--- NOTE | 2021-11-29 05:27 | MHC.PIE ---
Addendum entered by Taran Veliz RN 11/29/21 06:43: Patient brought back down 70% fio2 - 02sat 91-92%. RR 30... dr Thomas & Corbin SWAIN aware of episode of desaturation - No new orders at this time. Ring taken off right hand ring finger r/t swelling. Put in bag in chart w/ label - Sister, Hafsa, called and updated about ring and made aware they can picker packer if they wanted to anytime. Sister updated as well about patient status. Original Note: Patient fighting vent after 4am assessment, bed bath / reposition - coughing constantly, RR up to 30s - low 40's on pressure control vent settings. Lower lobes fine crackles, worse in left lower lobe - more in-line secretions than prev assessments- thick cream. Suctioned multiple times. 02sat dropped to 80% on 60% fio2... Increased fio2 with RT at bedside to 100%. Corbin Swain made aware. Patient also fluid positive since admission >3 liters. Corbin SWAIN ordered BNP to be added to AM labs. Increased sedation with partial affect - O2sat up to 97%, RR 28-30 at this time.
[2021-11-29 05:33] LABS: VBG Base Excess 1.7 mmol/L; VBG HCO3 25 mmol/L (22-26); VBG pCO2 33 mmHg; VBG pH 7.47 (7.32-7.43); VBG pO2 109 mmHg
[2021-11-29 05:49] LABS: MANUAL DIFF FLAG NO
[2021-11-29 05:53] LABS: Basophils Percent Auto 0.3 % (0-2); Eosinophils Absolute Auto 0.5 X10*3/uL (0.0-0.4); Eosinophils Percent Auto 5.3 % (0-4); Hematocrit 26.3 % (37.0-47.0); Hemoglobin 7.5 g/dl (12.0-16.0); Imm Gran Abs Auto 0.26 X10*3/uL (0.00-0.03); Imm Gran Pct Auto 2.5 % (0.0-0.4); Lymphocytes Absolute Auto 2.3 X10*3/uL (1.2-4.9); Lymphocytes Percent Auto 22.7 % (20-40); Mean Corpuscular HGB Conc 28.5 g/dl (31.0-35.0); Mean Corpuscular Volume 80.7 fL (80.0-98.0); Mean Platelet Volume 9.1 fL (9.4-12.3); Monocytes Absolute Auto 0.9 X10*3/uL (0.1-1.2); Monocytes Percent Auto 8.3 % (2-11); Neutrophils Absolute Auto 6.3 x10*3/uL (2.0-8.3); Neutrophils Percent Auto 60.9 % (45-73); Platelet Count 333 X10*3/uL (160-400); Red Blood Count 3.26 X10*6/uL (4.20-5.50); Red Cell Distribution Width 14.6 % (11.0-16.0); White Blood Count 10.3 X10*3/uL (4.8-10.8)
[2021-11-29] MEDS: Levothyroxine Sodium 175 MCG TABLET PO (06:00)
[2021-11-29] MEDS: Pantoprazole Sodium 40 MG/10 ML VIAL IVPUSH ×2 (06:00→15:24)
[2021-11-29 06:14] LABS: Alanine Aminotransferase 23 U/L (0-31); Albumin Level 2.5 g/dL (3.5-5.0); Alkaline Phosphatase 239 U/L (39-117); Anion Gap 13 (12-20); Aspartate Amino Transferase 60 U/L (5-31); Bilirubin Total 0.4 mg/dL (0.0-1.0); Blood Urea Nitrogen 16 mg/dL (9-16); Calcium 8.2 mg/dL (8.4-10.2); Carbon Dioxide 22 mmol/L (22-29); Chloride 111 mmol/L (96-108); Estimated Glomerular Filt Rate > 60; Glucose Random 90 mg/dL (60-115); Potassium 3.9 mmol/L (3.3-5.1); Sodium 142 mmol/L (135-145); Total Protein 4.9 g/dL (6.5-8.0)
[2021-11-29 06:17] LABS: B Type Natriuretic Peptide 608 pg/mL (<100)
[2021-11-29 06:28] LABS: Vancomycin Trough 15.9 mcg/mL (10.0-20.0)
[2021-11-29 06:42] LABS: Venous Blood Gas Refer to POC result
--- NOTE | 2021-11-29 06:57 | P.PNCC_ITS ---
Subjective Subjective Date of Service: 11/29/21 Interval History: 46-year-old with mixed connective tissue disease on Plaquenil and prednisone underlying COPD previous tracheostomy presents with acute hypoxemic respiratory failure from COVID-19 pneumonitis and ARDS also possible superimposed bacterial infection due to temperature spikes to 102 elevated white count and purulence sputum production and due to her immune suppression was started on empiric antibiotics and currently weaned from 100% to 70% FiO2 but still with high minute ventilatory requirement hemoglobin fell to 7.5 and she is on apixaban and there is a stool occult that is pending and transfuse 1 unit of blood based on that hemoglobin Critical Care Time (minutes): 45 Physical Exam Vital Signs: Vital Signs: Last Vital Signs Temp 99.3 F 11/29/21 05:53 Pulse 86 11/29/21 05:53 Resp 29 H 11/29/21 06:16 BP 105/60 11/29/21 05:53 Pulse Ox 92 11/29/21 06:16 Oxygen Flow Rate 4 11/25/21 07:42 BMI result Body Mass Index 24.3 on propofol and fentanyl drips still wakes up agitated so were adding of p.r.n. Ativan no neck vein distension and has good bilateral carotid upstrokes no gallops no adventitious sounds abdomen benign no organomegaly good peripheral pulses skin is intact- there was a recent history of cellulitis which was treated Objective Data Labs CBC & Chem 7: 11/29/21 05:28 11/29/21 12:34 Labs: Laboratory Results - last 24 hr 11/28/21 11/28/21 11/28/21 07:46 17:15 17:59 WBC RBC Hgb Hct MCV MCH MCHC RDW Plt Count MPV Immature Gran % (Auto) Neut % (Auto) Lymph % (Auto) [place] % (Auto) Eos % (Auto) Baso % (Auto) Lymph # (Auto) Snyder # (Auto) Eos # (Auto) Baso # (Auto) Abs Immat Gran (auto) Absolute Neuts (auto) Absolute Nucleated RBC Nucleated RBC % (auto) PT 27.1 H INR 2.3 H APTT 34.0 D VBG pH VBG pCO2 VBG pO2 VBG HCO3 VBG O2 Saturation VBG Base Excess Sodium Potassium Chloride Carbon Dioxide Anion Gap BUN Creatinine Estim Creat Clear Calc Estimated GFR Random Glucose Lactic Acid 0.9 Calcium Total Bilirubin AST ALT Alkaline Phosphatase B-Natriuretic Peptide Total Protein Albumin Urine Color STRAW Urine Appearance CLEAR Urine pH 6.0 Ur Specific [place] 1.020 Urine Protein NEG Urine Glucose (UA) NEG Urine Ketones 15 Urine Blood TRACE Urine Nitrite NEG Ur Leukocyte Esterase NEG Urine RBC 1-4 Urine WBC 0 Ur Squamous Epith Cells TRACE Amorphous Sediment TRACE Urine Bacteria NONE Urine Mucus 1+ Vancomycin Trough 11/29/21 11/29/21 11/29/21 05:27 05:28 05:28 WBC 10.3 RBC 3.26 L Hgb 7.5 L Hct 26.3 L MCV 80.7 MCH 23.0 L MCHC 28.5 L RDW 14.6 Plt Count 333 MPV 9.1 L Immature Gran % (Auto) 2.5 H Neut % (Auto) 60.9 Lymph % (Auto) 22.7 Snyder % (Auto) 8.3 Eos % (Auto) 5.3 H Baso % (Auto) 0.3 Lymph # (Auto) 2.3 Snyder # (Auto) 0.9 Eos # (Auto) 0.5 H Baso # (Auto) 0.0 Abs Immat Gran (auto) 0.26 H Absolute Neuts (auto) 6.3 Absolute Nucleated RBC 0.000 Nucleated RBC % (auto) 0.0 PT INR APTT VBG pH 7.47 H VBG pCO2 33 VBG pO2 109 VBG HCO3 25 VBG O2 Saturation 98.0 VBG Base Excess 1.7 Sodium Potassium Chloride Carbon Dioxide Anion Gap BUN Creatinine Estim Creat Clear Calc Estimated GFR Random Glucose Lactic Acid Calcium Total Bilirubin AST ALT Alkaline Phosphatase B-Natriuretic Peptide Total Protein Albumin Urine Color Urine Appearance Urine pH Ur Specific [place] Urine Protein Urine Glucose (UA) Urine Ketones Urine Blood Urine Nitrite Ur Leukocyte Esterase Urine RBC Urine WBC Ur Squamous Epith Cells Amorphous Sediment Urine Bacteria Urine Mucus Vancomycin Trough 15.9 11/29/21 11/29/21 05:28 05:28 WBC RBC Hgb Hct MCV MCH MCHC RDW Plt Count MPV Immature Gran % (Auto) Neut % (Auto) Lymph % (Auto) Snyder % (Auto) Eos % (Auto) Baso % (Auto) Lymph # (Auto) Snyder # (Auto) Eos # (Auto) Baso # (Auto) Abs Immat Gran (auto) Absolute Neuts (auto) Absolute Nucleated RBC Nucleated RBC % (auto) PT INR APTT VBG pH VBG pCO2 VBG pO2 VBG HCO3 VBG O2 Saturation VBG Base Excess Sodium 142 Potassium 3.9 Chloride 111 H Carbon Dioxide 22 Anion Gap 13 BUN 16 Creatinine 0.66 Estim Creat Clear Calc 93.0 Estimated GFR > 60 Random Glucose 90 Lactic Acid Calcium 8.2 L Total Bilirubin 0.4 AST 60 H ALT 23 Alkaline Phosphatase 239 H D B-Natriuretic Peptide 608 H Total Protein 4.9 L Albumin 2.5 L Urine Color Urine Appearance Urine pH Ur Specific [place] Urine Protein Urine Glucose (UA) Urine Ketones Urine Blood Urine Nitrite Ur Leukocyte Esterase Urine RBC Urine WBC Ur Squamous Epith Cells Amorphous Sediment Urine Bacteria Urine Mucus Vancomycin Trough Microbiology Microbiology Results: Microbiology 11/27/21 19:04 Sputum - Induced Gram Stain - Final 11/27/21 19:04 Sputum - Induced Sputum Culture - Preliminary Culture too young to evaluate. 11/25/21 08:56 Blood - Venous Blood Culture - Preliminary No growth after 48 hours. 11/25/21 08:22 Blood - Venous Blood Culture - Preliminary No growth after 48 hours. Progress Note: A&P Assessment and plan (1) Mixed connective tissue disease: Status: Acute (2) Acute hypoxemic respiratory failure due to COVID-19: Status: Acute (3) Acute exacerbation of chronic obstructive airways disease: Status: Acute (4) Cellulitis of right leg: Status: Acute (5) Ulcer of lower extremity: Status: Acute (6) Cellulitis: Status: Acute Assessment and Plan: at this point in a we maintain ventilator and because of significant intake and output positivity and what appeared to be some increased work of breathing this morning I gave 20 of Lasix she diuresed large amount oxygen saturations came up from 90 to 94% with a little bit less tachypnea and then she received 1 unit blood transfusion and I will repeat the CBC and check for stool occult and keeping antibiotics on board until we get back sputum results Quality Stroke Does the patient have a stroke diagnosis?: No VTE Prior VTE?: No VTE Risk Level:: Medical - moderate - high VTE Device Contraindication: Treatment Not Indicated VTE Drug Contraindication: N/A - Med Ordered
[2021-11-29] MEDS: vancomycin HCL 1,000 MG in 0.9 % Sodium Chloride 250 ML 270 MG IV ×2 (07:17→19:54)
[2021-11-29] MEDS: Furosemide 20 MG/2 ML VIAL IVPUSH (07:18)
[2021-11-29] MEDS: propofoL 1,000 MG/100 ML VIAL 20.41 MG IVCONT ×4 (07:18→20:03)
[2021-11-29] MEDS: Albuterol/Iprat 2.5/0.5MG 3 ML AMPUL.NEB INHALE ×4 (07:45→19:56)
[2021-11-29] MEDS: fentaNYL citrate/NS 1,000 MCG/100 ML PLAST..BAG 15 MCG IVCONT (08:07)
[2021-11-29] MEDS: Apixaban 5 MG TABLET PO ×2 (08:07→22:03)
[2021-11-29] MEDS: dexAMETHasone sod phosphate 4 MG/ML VIAL 6 MG IVPUSH (08:07)
[2021-11-29] MEDS: Potassium Chloride Packet 20 MEQ PACKET PO (08:41)
[2021-11-29 09:15] LABS: MRSA Nasal PCR NEGATIVE (Negative); SA Nasal PCR POSITIVE (Negative)
--- NOTE | 2021-11-29 09:28 | MHC.CLN ---
F/U PT REMAINS INTUBATED AND SEDATED PT RECEIVING PROMOTE AT MAX GOAL RATE 35ML/HR WITH 240CC FREE WATER FLUSHES Q 6 HRS TO PROVIDE 840KCALS (1379KCALS WITH SEDATION; 25.5KCALS/KG), 52.5G PROTEIN (.97G/KG), 1665ML TOTAL WATER FROM FORMULA AND FLUSH (30.8ML/KG) MONITOR TOLERANCE, RESIDUALS AND LYTES
--- NOTE | 2021-11-29 11:00 | CA_ITS ---
Transthoracic Echocardiogram Patient (Last, First, Middle): Emiliana Rea M Gender: Female Date of : 1975 Age: 46 Procedure Date: 11/29/2021 Procedure Type: Transthoracic Echocardiogram Location: ICU Height: 157.48 cm Weight: 59.88 kg BSA: 1.60 m2 Heart Rate: bpm BP: 115 / 69 mmHg Gear Nicker: Referring MD: Jonathan Thomas MD Symptoms: chf Study Quality: Technically Difficult/contrast ECG Rhythm: Sinus tachycardia Conclusions: - The left ventricular systolic function is low normal. The visually estimated ejection fraction is between 50-55%. - Mildly increased right ventricular cavity size. - No obvious valvular pathology seen on this study. Findings Procedure Information Contrast agent, definity, is being given per protocol without apparent complications. Left Ventricle Normal left ventricular cavity size. There is mildly increased left ventricular wall thickness. The left ventricular systolic function is low normal. The visually estimated ejection fraction is between 50-55%. There is no evidence of regional wall motion abnormalities. E/E prime ratio is between 8 and 15 consistent with indeterminate filling pressures. Evidence suggests grade I (mild) diastolic dysfunction. Right Ventricle Mildly increased right ventricular cavity size. There is normal right ventricular systolic function. Atria Both atria are normal in size. Aortic Valve The aortic valve structure and function is likely normal. There is no aortic valve stenosis. There is trace (trivial) aortic valve regurgitation. Mitral Valve The mitral valve appears normal. There is trace mitral valve regurgitation. There is no mitral valve stenosis. Pulmonic Valve The pulmonic valve was not well visualized. Tricuspid Valve Normal tricuspid valve structure. There is trace tricuspid valve regurgitation. Estimated RVSP- 18mmHg + RAP. Great Vessels The aortic annulus and asc aorta are normal in size. Venous The inferior vena cava is dilated and does not collapse with inspiration. (intubated). Pericardium/Pleural There is a small circumferential pericardial effusion. Prior Study Comparison No significant change compared to prior study dated: 05/28/2018. Recommendations, Care & Conclusions No obvious valvular pathology seen on this study. Measurements 2D Linear Measurements IVSd: 1.16 0.6-0.9/0.6-1.0 cm LVIDd: 4.70 3.9-5.3/4.2-5.9 cm LVIDd Index: 2.94 2.4-3.2/2.2-3.1 cm/m2 LVIDs: 3.52 2.0-3.6 cm LVPWd: 1.18 0.7-1.1 cm Ao Root: 2.50 2.1-3.5 cm LA Diam: 3.10 2.7-3.8/3.0-4.0 cm LAIDs Index: 1.94 1.5-2.3 cm/m2 LV Mass: 254.89 67-162/88-224 g LV Mass Index: 159.31 43-95/49-115 g/m2 LVOT Diam: 2.00 3.0+(-)1.3 cm 2D Systolic Function EF 4C: 67.00 >55% EF 2C: 45.40 >55% EF BiP: 58.00 >55% Mitral Valve MV Pk E: 0.78 MV PK A: 0.88 MV Decel Time: 145.00 E/A: 0.90 E'Lateral: 6.31 E'Medial: 5.33 E/E' Med: 14.60 E/E' Lat: 12.40 PHT: 42.00 MVA PHT: 5.24 Decel [place]: 5.38 Aortic Valve AoV Pk Vin: 1.59 AoV Mn Vin: 1.06 AoV VTI: 0.28 AoV Pk Grad: 10.00 Aov Mn Grad: 5.00 SAMSON Cont.VTI: 2.21 LVOT LVOT Pk Vin: 1.14 LVOT Mn Vin: 0.85 LVOT VTI: 0.20 LVOT Pk Grad: 5.00 LVOT Mn Grad: 3.00 LVOT Diam: 2.00 LVOT Area: 3.14 Diastolic Function MV Pk E: 0.78 MV Pk A: 0.88 E/A: 0.90 E'Medial: 5.33 E/E' Med: 14.60 E' Laterial: 6.31 E/E' Lat: 12.40 Right Ventricle TAPSE (mm): 36.60 TVS' Vin: 12.80 Tricuspid Valve TR Pk Vin: 2.13 TR Pk Grad: 18.00 Great Vessels Aorta Ao Root-2D: 2.50 2.0-3.7 cm Ao Asc: 2.80 2.1-3.4 cm Pulmonary Valve PV Pk Vin: 1.07 Peak PV Grad: 5.00 Updated in Other Vendor System with Status of Final Paul Steve MD electronically signed on 11/29/2021 4:35:08 PM with status of Final
[2021-11-29 13:01] LABS: Anion Gap 11 (12-20); Blood Urea Nitrogen 17 mg/dL (9-16); Calcium 8.6 mg/dL (8.4-10.2); Carbon Dioxide 27 mmol/L (22-29); Chloride 106 mmol/L (96-108); Creatinine Clr Calc Pharmacy 85.3; Estimated Glomerular Filt Rate > 60; Glucose Random 185 mg/dL (60-115); Potassium 4.8 mmol/L (3.3-5.1); Sodium 139 mmol/L (135-145)
[2021-11-29] MEDS: fentaNYL citrate/NS 1,000 MCG/100 ML PLAST..BAG 20 MCG IVCONT ×3 (13:10→22:03)
[2021-11-29] MEDS: Remdesivir 100 MG in 0.9 % Sodium Chloride 230 ML 115 MG IV (14:31)
[2021-11-29] MEDS: LORazepam 2 MG/ML VIAL IVPUSH (14:39)
[2021-11-29 15:38] LABS: MANUAL DIFF FLAG NO
[2021-11-29 15:49] LABS: Basophils Percent Auto 0.3 % (0-2); Eosinophils Percent Auto 0.3 % (0-4); Hematocrit 30.1 % (37.0-47.0); Hemoglobin 8.9 g/dl (12.0-16.0); Imm Gran Abs Auto 0.22 X10*3/uL (0.00-0.03); Imm Gran Pct Auto 2.2 % (0.0-0.4); Lymphocytes Percent Auto 9.9 % (20-40); Mean Corpuscular HGB Conc 29.6 g/dl (31.0-35.0); Mean Corpuscular Hemoglobin 23.4 pg (27.0-33.0); Mean Platelet Volume 9.4 fL (9.4-12.3); Monocytes Absolute Auto 0.5 X10*3/uL (0.1-1.2); Monocytes Percent Auto 5.1 % (2-11); Neutrophils Absolute Auto 8.1 x10*3/uL (2.0-8.3); Neutrophils Percent Auto 82.2 % (45-73); Platelet Count 347 X10*3/uL (160-400); Red Blood Count 3.81 X10*6/uL (4.20-5.50); Red Cell Distribution Width 14.6 % (11.0-16.0); White Blood Count 9.9 X10*3/uL (4.8-10.8)
[2021-11-29 16:04] LABS: Anion Gap 10 (12-20); Blood Urea Nitrogen 16 mg/dL (9-16); Calcium 8.3 mg/dL (8.4-10.2); Carbon Dioxide 28 mmol/L (22-29); Chloride 106 mmol/L (96-108); Estimated Glomerular Filt Rate > 60; Glucose Random 155 mg/dL (60-115); Sodium 139 mmol/L (135-145)
[2021-11-30] VITALS (37 sets, daily range): BP systolic 81–144; BP diastolic 41–87; PULSE 76–133; RESP 18–36; TEMP 35–40.5; O2SAT 90–99; BMI 24.1
[2021-11-30] MEDS: propofoL 1,000 MG/100 ML VIAL 20.41 MG IVCONT ×5 (00:36→17:37)
[2021-11-30] MEDS: LORazepam 2 MG/ML VIAL IVPUSH ×4 (00:36→20:34)
[2021-11-30] MEDS: Ampicillin Sodium/Sulbactam Na 1.5 GM in 0.9 % Sodium Chloride 100 ML IV ×2 (00:38→08:48)
[2021-11-30] MEDS: fentaNYL citrate/NS 1,000 MCG/100 ML PLAST..BAG 20 MCG IVCONT ×4 (02:54→18:02)
[2021-11-30] MEDS: Levothyroxine Sodium 175 MCG TABLET PO (05:34)
[2021-11-30] MEDS: Acetaminophen 325 MG TABLET 1000 MG PO ×2 (05:34→20:34)
[2021-11-30] MEDS: Rocuronium Bromide 50 MG/5 ML VIAL 20 MG IVPUSH (05:35)
[2021-11-30] MEDS: Pantoprazole Sodium 40 MG/10 ML VIAL IVPUSH ×2 (05:35→15:20)
[2021-11-30 05:52] LABS: MANUAL DIFF FLAG NO
[2021-11-30 05:56] LABS: Venous Blood Gas Refer to POC result
[2021-11-30 05:56] LABS: VBG Base Excess 4.6 mmol/L; VBG HCO3 28 mmol/L (22-26); VBG pCO2 40 mmHg; VBG pH 7.46 (7.32-7.43); VBG pO2 103 mmHg
[2021-11-30 06:07] LABS: Basophils Percent Auto 0.4 % (0-2); Eosinophils Absolute Auto 0.7 X10*3/uL (0.0-0.4); Eosinophils Percent Auto 6.4 % (0-4); Hematocrit 33.4 % (37.0-47.0); Hemoglobin 9.7 g/dl (12.0-16.0); Imm Gran Abs Auto 0.31 X10*3/uL (0.00-0.03); Imm Gran Pct Auto 2.9 % (0.0-0.4); Lymphocytes Absolute Auto 1.7 X10*3/uL (1.2-4.9); Lymphocytes Percent Auto 15.8 % (20-40); Mean Corpuscular Hemoglobin 23.3 pg (27.0-33.0); Mean Corpuscular Volume 80.3 fL (80.0-98.0); Mean Platelet Volume 9.8 fL (9.4-12.3); Monocytes Absolute Auto 0.7 X10*3/uL (0.1-1.2); Monocytes Percent Auto 6.6 % (2-11); Neutrophils Absolute Auto 7.3 x10*3/uL (2.0-8.3); Neutrophils Percent Auto 67.9 % (45-73); Platelet Count 341 X10*3/uL (160-400); Red Blood Count 4.16 X10*6/uL (4.20-5.50); Red Cell Distribution Width 14.6 % (11.0-16.0); White Blood Count 10.8 X10*3/uL (4.8-10.8)
[2021-11-30 06:12] LABS: Alanine Aminotransferase 37 U/L (0-31); Albumin Level 2.7 g/dL (3.5-5.0); Alkaline Phosphatase 243 U/L (39-117); Anion Gap 11 (12-20); Aspartate Amino Transferase 106 U/L (5-31); Bilirubin Total 0.4 mg/dL (0.0-1.0); Blood Urea Nitrogen 17 mg/dL (9-16); Calcium 8.4 mg/dL (8.4-10.2); Carbon Dioxide 28 mmol/L (22-29); Chloride 107 mmol/L (96-108); Creatinine Clr Calc Pharmacy 88.9; Estimated Glomerular Filt Rate > 60; Glucose Random 101 mg/dL (60-115); Potassium 4.4 mmol/L (3.3-5.1); Sodium 142 mmol/L (135-145); Total Protein 5.8 g/dL (6.5-8.0)
[2021-11-30 06:14] LABS: Vancomycin Trough 17.9 mcg/mL (10.0-20.0)
[2021-11-30] MEDS: Albuterol/Iprat 2.5/0.5MG 3 ML AMPUL.NEB INHALE ×4 (07:33→20:16)
[2021-11-30] MEDS: levoFLOXacin/D5W 750 MG/150 ML PIGGYBACK 100 MG IV ×2 (07:39→09:39)
[2021-11-30] MEDS: vancomycin HCL 750 MG in 0.9 % Sodium Chloride 250 ML 265 MG IV ×2 (08:48→20:48)
[2021-11-30] MEDS: dexAMETHasone sod phosphate 4 MG/ML VIAL 6 MG IVPUSH (08:51)
[2021-11-30] MEDS: Apixaban 5 MG TABLET PO ×2 (08:53→20:34)
[2021-11-30] MEDS: Doxycycline Hyclate 100 MG in 0.9 % Sodium Chloride 250 ML 166.67 MG IV (13:06)
[2021-11-30] MEDS: Chlorhexidine Gluc Oral Rinse 15 ML MOUTHWASH BUCCAL ×3 (13:07→20:34)
--- NOTE | 2021-11-30 13:22 | HE.PHANOTE ---
RE: ANTIBIOTICS Per Dr. Tabor; Meropenem, vancomycin, voriconazole, and doxycyline. Thanks Carla Freeman D
--- NOTE | 2021-11-30 15:50 | PM.CCPN ---
Subjective Subjective Date of Service: 11/30/21 Interval History: remains sedated and intubated but her fevers that were yesterday over 104 are significantly improved stable white count stable hemoglobin and she is C diff positive on Xifaxan as well as growing Serratia and Staph from the sputum but are minute ventilatory requirements are improved and her FiO2 is down also yet improved so there are some positive signs currently being treated for C diff colitis as well as bacterial superinfection on top of her COVID-19 pneumonitis but we have signs of some improvement in some of her reserve but still spiking temperatures but to a smaller degree Critical Care Time (minutes): 45 Physical Exam Vital Signs: Vital Signs: Last Vital Signs Temp 97.7 F 11/30/21 15:00 Pulse 91 11/30/21 15:29 Resp 27 H 11/30/21 15:29 BP 103/64 11/30/21 15:00 Pulse Ox 96 11/30/21 15:00 Oxygen Flow Rate 4 11/25/21 07:42 BMI result Body Mass Index 24.1 sedated and intubated moves all 4 extremities nonfocal neurologically bedside echo shows perfectly preserved LV function and RV function no primary valve or pericardial disease abdomen benign tolerating feedings no organomegaly Objective Data Labs CBC & Chem 7: 12/01/21 05:34 12/01/21 05:34 Labs: Laboratory Results - last 24 hr 11/29/21 11/29/21 11/30/21 07:52 15:22 05:47 WBC RBC Hgb Hct MCV MCH MCHC RDW Plt Count MPV Immature Gran % (Auto) Neut % (Auto) Lymph % (Auto) [place] % (Auto) Eos % (Auto) Baso % (Auto) Lymph # (Auto) [place] # (Auto) Eos # (Auto) Baso # (Auto) Abs Immat Gran (auto) Absolute Neuts (auto) Absolute Nucleated RBC Nucleated RBC % (auto) VBG pH VBG pCO2 VBG pO2 VBG HCO3 VBG O2 Saturation VBG Base Excess Sodium 139 Potassium 5.0 Chloride 106 Carbon Dioxide 28 Anion Gap 10 L BUN 16 Creatinine 0.66 Estim Creat Clear Calc 93.0 Estimated GFR > 60 Random Glucose 155 H Calcium 8.3 L Total Bilirubin AST ALT Alkaline Phosphatase Total Protein Albumin Vancomycin Trough 17.9 Blood Type B Positive Antibody Screen NEGATIVE Crossmatch See Detail Enhanced Crossmatch See Detail 11/30/21 11/30/21 11/30/21 05:47 05:47 05:50 WBC 10.8 RBC 4.16 L Hgb 9.7 L Hct 33.4 L MCV 80.3 MCH 23.3 L MCHC 29.0 L RDW 14.6 Plt Count 341 MPV 9.8 Immature Gran % (Auto) 2.9 H Neut % (Auto) 67.9 Lymph % (Auto) 15.8 L [place] % (Auto) 6.6 Eos % (Auto) 6.4 H Baso % (Auto) 0.4 Lymph # (Auto) 1.7 [place] # (Auto) 0.7 Eos # (Auto) 0.7 H Baso # (Auto) 0.0 Abs Immat Gran (auto) 0.31 H Absolute Neuts (auto) 7.3 Absolute Nucleated RBC 0.000 Nucleated RBC % (auto) 0.0 VBG pH 7.46 H VBG pCO2 40 VBG pO2 103 VBG HCO3 28 H VBG O2 Saturation 98.0 VBG Base Excess 4.6 Sodium 142 Potassium 4.4 Chloride 107 Carbon Dioxide 28 Anion Gap 11 L BUN 17 H Creatinine 0.69 Estim Creat Clear Calc 88.9 Estimated GFR > 60 Random Glucose 101 Calcium 8.4 Total Bilirubin 0.4 AST 106 H ALT 37 H Alkaline Phosphatase 243 H Total Protein 5.8 L Albumin 2.7 L Vancomycin Trough Blood Type Antibody Screen Crossmatch Enhanced Crossmatch Microbiology Microbiology Results: Microbiology 11/25/21 08:56 Blood - Venous Blood Culture - Final No growth after 5 days. 11/25/21 08:22 Blood - Venous Blood Culture - Final No growth after 5 days. 11/28/21 17:59 Urine Catheterized - Lara Catheter Urine Culture - Final No growth. 11/27/21 Unknown Urine clean catch - Urine [place] Urine Culture - Final No growth. 11/28/21 17:59 Sputum - Induced Gram Stain - Final 11/28/21 17:59 Sputum - Induced Sputum Culture - Preliminary Gram negative leanna 11/27/21 19:04 Sputum - Induced Gram Stain - Final 11/27/21 19:04 Sputum - Induced Sputum Culture - Final Serratia marcescens 11/28/21 17:15 Blood - Venous Blood Culture - Preliminary No growth after 24 hours. 11/28/21 17:15 Blood - Venous Blood Culture - Preliminary No growth after 24 hours. Progress Note: A&P Assessment and plan (1) Mixed connective tissue disease: Status: Acute (2) Acute hypoxemic respiratory failure due to COVID-19: Status: Acute (3) Acute exacerbation of chronic obstructive airways disease: Status: Acute (4) Cellulitis of right leg: Status: Acute (5) Ulcer of lower extremity: Status: Acute (6) Cellulitis: Status: Acute (7) Immunosuppression due to chronic steroid use: Status: Acute (8) Secondary bacterial pneumonia: Status: Acute (9) C. difficile colitis: Status: Acute Assessment and Plan: all told moving in the right direction with her multitude of issues and antibiotics and antifungal medications will be maintained and tomorrow I might try a sedation holiday if she can keep her FiO2 at 50% or less Quality Stroke Does the patient have a stroke diagnosis?: No VTE Prior VTE?: No VTE Risk Level:: Medical - moderate - high VTE Device Contraindication: Treatment Not Indicated VTE Drug Contraindication: N/A - Med Ordered
--- NOTE | 2021-11-30 16:09 | MHC.CM.PN ---
Pt continues in ICU on ventilatory support. No plans to wean/extubate at this time. CM to follow for finalization of d/c needs. Pt came from home with [facility].
[2021-11-30 17:33] LABS: CDiff Gene PCR POSITIVE (Negative)
[2021-11-30 17:42] LABS: OBS Int Ctl Valid YES; OBS1 POSITIVE (NEGATIVE)
[2021-11-30] MEDS: rifAXIMin 550 MG TABLET PO ×2 (18:08→20:34)
[2021-11-30 18:21] LABS: CDiff Toxin Positive (Negative)
[2021-11-30 18:23] LABS: CDIFF Internal ctrl Dots and bkg OK (V)
[2021-11-30] MEDS: Lactated Ringers 1,000 ML 999 ML IV (22:00)
[2021-11-30] MEDS: propofoL 1,000 MG/100 ML VIAL 12.25 MG IVCONT (22:36)
[2021-12-01] VITALS (35 sets, daily range): BP systolic 102–157; BP diastolic 53–90; PULSE 73–105; RESP 19–36; TEMP 34.9–39.9; O2SAT 86–97; BMI 24.2
[2021-12-01] MEDS: Doxycycline Hyclate 100 MG in 0.9 % Sodium Chloride 250 ML 166.66 MG IV ×2 (00:24→12:05)
[2021-12-01] MEDS: LORazepam 2 MG/ML VIAL IVPUSH ×3 (03:17→19:38)
[2021-12-01] MEDS: fentaNYL citrate/NS 1,000 MCG/100 ML PLAST..BAG 5 MCG IVCONT (04:07)
[2021-12-01] MEDS: propofoL 1,000 MG/100 ML VIAL 12.25 MG IVCONT ×2 (04:07→11:30)
[2021-12-01] MEDS: Acetaminophen 325 MG TABLET 1000 MG PO ×2 (04:09→19:37)
[2021-12-01 05:41] LABS: VBG Base Excess 3.5 mmol/L; VBG HCO3 26 mmol/L (22-26); VBG pCO2 35 mmHg; VBG pH 7.48 (7.32-7.43); VBG pO2 73 mmHg
[2021-12-01] MEDS: Pantoprazole Sodium 40 MG/10 ML VIAL IVPUSH ×2 (05:41→14:25)
[2021-12-01] MEDS: Levothyroxine Sodium 175 MCG TABLET PO (05:41)
[2021-12-01 05:43] LABS: Venous Blood Gas Refer to POC result
[2021-12-01 06:18] LABS: MANUAL DIFF FLAG NO
[2021-12-01 06:21] LABS: Basophils Percent Auto 0.3 % (0-2); Eosinophils Absolute Auto 0.7 X10*3/uL (0.0-0.4); Hematocrit 30.7 % (37.0-47.0); Hemoglobin 8.9 g/dl (12.0-16.0); Imm Gran Abs Auto 0.27 X10*3/uL (0.00-0.03); Imm Gran Pct Auto 2.9 % (0.0-0.4); Lymphocytes Absolute Auto 1.6 X10*3/uL (1.2-4.9); Lymphocytes Percent Auto 17.4 % (20-40); Mean Corpuscular Hemoglobin 23.3 pg (27.0-33.0); Mean Corpuscular Volume 80.4 fL (80.0-98.0); Mean Platelet Volume 9.6 fL (9.4-12.3); Monocytes Absolute Auto 0.6 X10*3/uL (0.1-1.2); Monocytes Percent Auto 6.1 % (2-11); Neutrophils Absolute Auto 6.1 x10*3/uL (2.0-8.3); Neutrophils Percent Auto 66.3 % (45-73); Platelet Count 271 X10*3/uL (160-400); Red Blood Count 3.82 X10*6/uL (4.20-5.50); Red Cell Distribution Width 14.7 % (11.0-16.0); White Blood Count 9.2 X10*3/uL (4.8-10.8)
--- NOTE | 2021-12-01 06:31 | PC.NURSE ---
Assumed care of pt at 1900. Pt on pressure control vent settings and tolerating well. Good sedation effect from Propofol at 30 mcg/kg/min and Fentanyl at 50 mcg/hr. Both these doses were decreased due to hypotension. RADHA Winslow at bedside and ordered 1 liter Lactated Ringers which helped the BP. With the decreased dose in sedation, pt required ativan 2 mg IV x2 with good effect. Monitor showed Sinus Rythm, 70's-80's, no ectopy. U/O good 50-125 ml/hr. Tolerating tube feeds.
[2021-12-01 06:43] LABS: Alanine Aminotransferase 154 U/L (0-31); Albumin Level 2.4 g/dL (3.5-5.0); Alkaline Phosphatase 350 U/L (39-117); Anion Gap 11 (12-20); Aspartate Amino Transferase 525 U/L (5-31); Bilirubin Total 0.5 mg/dL (0.0-1.0); Blood Urea Nitrogen 16 mg/dL (9-16); Carbon Dioxide 26 mmol/L (22-29); Chloride 103 mmol/L (96-108); Creatinine Clr Calc Pharmacy 91.5; Estimated Glomerular Filt Rate > 60; Glucose Random 90 mg/dL (60-115); Potassium 4.4 mmol/L (3.3-5.1); Sodium 136 mmol/L (135-145); Total Protein 5.3 g/dL (6.5-8.0)
[2021-12-01 06:44] LABS: Vancomycin Trough 16.2 mcg/mL (10.0-20.0)
[2021-12-01] MEDS: vancomycin HCL 750 MG in 0.9 % Sodium Chloride 250 ML 265 MG IV ×2 (07:15→19:25)
[2021-12-01] MEDS: Albuterol/Iprat 2.5/0.5MG 3 ML AMPUL.NEB INHALE ×4 (08:58→20:08)
[2021-12-01] MEDS: Apixaban 5 MG TABLET PO ×2 (09:07→20:46)
[2021-12-01] MEDS: rifAXIMin 550 MG TABLET PO ×3 (09:07→20:46)
[2021-12-01] MEDS: dexAMETHasone sod phosphate 4 MG/ML VIAL 6 MG IVPUSH (09:07)
[2021-12-01] MEDS: Chlorhexidine Gluc Oral Rinse 15 ML MOUTHWASH BUCCAL ×3 (09:07→20:46)
--- NOTE | 2021-12-01 10:35 | MHC.CLN ---
F/U PT REMAINS INTUBATED AND SEDATED PT RECEIVING PROMOTE AT MAX GOAL RATE 35ML/HR WITH 240CC FREE WATER FLUSHES Q 6 HRS TO PROVIDE 840KCALS (1163KCALS WITH SEDATION; 21.5KCALS/KG), 52.5G PROTEIN (.97G/KG), 1665ML TOTAL WATER FROM FORMULA AND FLUSH (30.8ML/KG) SEDATION HAS BEEN LOWERED PROVIDING 323KCALS FROM PROPOFOL RECOMMEND INCREASING PROMOTE TO MAX GOAL 55ML/HR WITH 240CC FREE WATER FLUSHES BID TO PROVIDE 1320KCALS (1643KCALS WITH SEDATION; 30.4KCALS/KG BASED ON CMW), 82.5G PROTEIN (1.5G/KG), 1587ML TOTAL WATER FROM FORMULA AND FLUSHES (29ML/KG BASED ON CMW) MONITOR TOLERANCE, RESIDUALS AND LYTES
[2021-12-01] MEDS: fentaNYL citrate/NS 1,000 MCG/100 ML PLAST..BAG 15 MCG IVCONT ×2 (14:25→20:47)
[2021-12-01] MEDS: propofoL 1,000 MG/100 ML VIAL 20.41 MG IVCONT ×3 (15:05→23:36)
[2021-12-02] VITALS (33 sets, daily range): BP systolic 95–130; BP diastolic 42–79; PULSE 64–98; RESP 13–48; TEMP 34.7–40; O2SAT 88–98; BMI 24.6
[2021-12-02] MEDS: Doxycycline Hyclate 100 MG in 0.9 % Sodium Chloride 250 ML 166.66 MG IV (00:53)
[2021-12-02] MEDS: propofoL 1,000 MG/100 ML VIAL 20.41 MG IVCONT ×5 (02:54→20:33)
[2021-12-02] MEDS: fentaNYL citrate/NS 1,000 MCG/100 ML PLAST..BAG 15 MCG IVCONT ×4 (02:56→20:34)
[2021-12-02 05:29] LABS: VBG Base Excess 5.8 mmol/L; VBG HCO3 30 mmol/L (22-26); VBG pCO2 42 mmHg; VBG pH 7.46 (7.32-7.43); VBG pO2 64 mmHg
[2021-12-02 05:42] LABS: MANUAL DIFF FLAG NO
[2021-12-02] MEDS: Levothyroxine Sodium 175 MCG TABLET PO (05:46)
[2021-12-02] MEDS: Pantoprazole Sodium 40 MG/10 ML VIAL IVPUSH ×2 (05:46→15:28)
[2021-12-02 06:00] LABS: Basophils Percent Auto 0.4 % (0-2); Eosinophils Absolute Auto 0.1 X10*3/uL (0.0-0.4); Eosinophils Percent Auto 1.4 % (0-4); Hematocrit 34.2 % (37.0-47.0); Hemoglobin 9.6 g/dl (12.0-16.0); Imm Gran Abs Auto 0.29 X10*3/uL (0.00-0.03); Lymphocytes Absolute Auto 1.6 X10*3/uL (1.2-4.9); Lymphocytes Percent Auto 21.8 % (20-40); Mean Corpuscular HGB Conc 28.1 g/dl (31.0-35.0); Mean Corpuscular Volume 81.8 fL (80.0-98.0); Mean Platelet Volume 9.8 fL (9.4-12.3); Monocytes Absolute Auto 0.8 X10*3/uL (0.1-1.2); Monocytes Percent Auto 10.3 % (2-11); Neutrophils Absolute Auto 4.5 x10*3/uL (2.0-8.3); Neutrophils Percent Auto 62.1 % (45-73); Platelet Count 307 X10*3/uL (160-400); Red Blood Count 4.18 X10*6/uL (4.20-5.50); Red Cell Distribution Width 14.8 % (11.0-16.0); White Blood Count 7.3 X10*3/uL (4.8-10.8)
[2021-12-02 06:15] LABS: Alanine Aminotransferase 73 U/L (0-31); Albumin Level 2.5 g/dL (3.5-5.0); Alkaline Phosphatase 283 U/L (39-117); Anion Gap 10 (12-20); Aspartate Amino Transferase 112 U/L (5-31); Bilirubin Total 0.3 mg/dL (0.0-1.0); Blood Urea Nitrogen 20 mg/dL (9-16); Calcium 8.4 mg/dL (8.4-10.2); Carbon Dioxide 29 mmol/L (22-29); Chloride 107 mmol/L (96-108); Creatinine Clr Calc Pharmacy 88.7; Estimated Glomerular Filt Rate > 60; Glucose Random 122 mg/dL (60-115); Potassium 4.4 mmol/L (3.3-5.1); Sodium 142 mmol/L (135-145); Total Protein 5.7 g/dL (6.5-8.0)
[2021-12-02 06:18] LABS: Venous Blood Gas Refer to POC result
[2021-12-02] MEDS: Chlorhexidine Gluc Oral Rinse 15 ML MOUTHWASH BUCCAL ×3 (07:29→20:20)
[2021-12-02] MEDS: dexAMETHasone sod phosphate 4 MG/ML VIAL 6 MG IVPUSH (07:29)
[2021-12-02] MEDS: vancomycin HCL 750 MG in 0.9 % Sodium Chloride 250 ML 265 MG IV ×2 (07:30→20:20)
[2021-12-02] MEDS: rifAXIMin 550 MG TABLET PO ×3 (07:30→20:20)
[2021-12-02] MEDS: Apixaban 5 MG TABLET PO ×2 (07:31→20:20)
[2021-12-02] MEDS: Albuterol/Iprat 2.5/0.5MG 3 ML AMPUL.NEB INHALE ×4 (08:40→20:43)
[2021-12-02] MEDS: Doxycycline Hyclate 100 MG in 0.9 % Sodium Chloride 250 ML 166.67 MG IV (12:02)
--- NOTE | 2021-12-02 13:36 | P.PNCC_ITS ---
Subjective Subjective Date of Service: 12/02/21 Interval History: 46-year-old female with mixed connective tissue disease and features of lupus and rheumatoid arthritis on immunosuppressive medicine including Plaquenil and prednisone who has been intubated a number of times before further pneumonia and respiratory failure including tracheostomy in the past recently treated for cellulitis and possible joint space infection as well presents with acute hypoxemic respiratory failure in true extremis related to COVID-19 pneumonitis/ ARDS and has been intubated knowing she was immunosuppressed we sent or surveillance sputums repeatedly and were now growing Serratia and she is being appropriately covered for that but we will concerned still about the possibility of fungal infection superimposed so she is being covered with voriconazole and with positive Staph in her nares on surveillance also being covered with the with vancomycin and then she she started to have increased stool frequency which was C diff positive so she is on Xifaxan for that entity as well and finally after days of maximum fevers to 104 of fevers receding white count is receding she never developed any acute renal issues her elevated liver function tests are diminishing and she did not have any evidence of an obstructive hepatopathy on the right upper quadrant ultrasound and CT scan done yesterday and she has a surgically removed gallbladder FiO2 is been weaned down to 50% and she definitely has reduced minute ventilatory requirement but there is evidence of right lower lobe atelectasis so pulmonary toileting is important issue Critical Care Time (minutes): 45 Physical Exam Vital Signs: Vital Signs: Last Vital Signs Temp 97.9 F 12/02/21 13:00 Pulse 92 12/02/21 13:00 Resp 20 12/02/21 13:00 BP 112/51 L 12/02/21 13:00 Pulse Ox 93 12/02/21 13:00 Oxygen Flow Rate 4 11/25/21 07:42 BMI result Body Mass Index 24.6 sedated and intubated but she does awaken with with movement and touch bedside cardiac exam shows normal LV and RV function with no primary valve or pericardial disease lungs look a little bit less densely infiltrated but still has bilateral lower lobe consolidations and probable atelectasis of the right lower lobe abdomen benign no organomegaly skin color is [place] issues Objective Data Labs CBC & Chem 7: 12/02/21 05:23 12/02/21 05:23 Labs: Laboratory Results - last 24 hr 12/02/21 12/02/21 12/02/21 05:22 05:23 05:23 WBC 7.3 RBC 4.18 L Hgb 9.6 L Hct 34.2 L MCV 81.8 MCH 23.0 L MCHC 28.1 L RDW 14.8 Plt Count 307 MPV 9.8 Immature Gran % (Auto) 4.0 H Neut % (Auto) 62.1 Lymph % (Auto) 21.8 [place] % (Auto) 10.3 Eos % (Auto) 1.4 Baso % (Auto) 0.4 Lymph # (Auto) 1.6 [place] # (Auto) 0.8 Eos # (Auto) 0.1 Baso # (Auto) 0.0 Abs Immat Gran (auto) 0.29 H Absolute Neuts (auto) 4.5 Absolute Nucleated RBC 0.000 Nucleated RBC % (auto) 0.0 VBG pH 7.46 H VBG pCO2 42 VBG pO2 64 VBG HCO3 30 H VBG O2 Saturation 88.0 VBG Base Excess 5.8 Sodium 142 Potassium 4.4 Chloride 107 Carbon Dioxide 29 Anion Gap 10 L BUN 20 H Creatinine 0.64 Estim Creat Clear Calc 88.7 Estimated GFR > 60 Random Glucose 122 H Calcium 8.4 Total Bilirubin 0.3 AST 112 H ALT 73 H Alkaline Phosphatase 283 H Total Protein 5.7 L Albumin 2.5 L Microbiology Microbiology Results: Microbiology 11/28/21 17:59 Sputum - Induced Gram Stain - Final 11/28/21 17:59 Sputum - Induced Sputum Culture - Final Gram negative leanna 11/28/21 17:15 Blood - Venous Blood Culture - Preliminary No growth after 48 hours. 11/28/21 17:15 Blood - Venous Blood Culture - Preliminary No growth after 48 hours. 11/25/21 08:56 Blood - Venous Blood Culture - Final No growth after 5 days. 11/25/21 08:22 Blood - Venous Blood Culture - Final No growth after 5 days. 11/28/21 17:59 Urine Catheterized - Lara Catheter Urine Culture - Final No growth. 11/27/21 Unknown Urine clean catch - Urine [place] Urine Culture - Final No growth. 11/27/21 19:04 Sputum - Induced Gram Stain - Final 11/27/21 19:04 Sputum - Induced Sputum Culture - Final Serratia marcescens Progress Note: A&P Assessment and plan (1) C. difficile colitis: Status: Acute (2) Secondary bacterial pneumonia: Status: Acute (3) Immunosuppression due to chronic steroid use: Status: Acute (4) Mixed connective tissue disease: Status: Acute (5) Acute hypoxemic respiratory failure due to COVID-19: Status: Acute (6) Acute exacerbation of chronic obstructive airways disease: Status: Acute (7) Cellulitis of right leg: Status: Acute (8) Ulcer of lower extremity: Status: Acute (9) Cellulitis: Status: Acute Assessment and Plan: so will maintain antibiotics as above and ventilator support if we can move her below 50% tomorrow morning on the FiO2 we might give her sedation holiday and even a brief 1st attempt at a pressure support wean Quality Stroke Does the patient have a stroke diagnosis?: No VTE Prior VTE?: No VTE Risk Level:: Medical - moderate - high VTE Device Contraindication: Treatment Not Indicated VTE Drug Contraindication: N/A - Med Ordered
[2021-12-02 18:39] LABS: Vancomycin Trough 15.2 mcg/mL (10.0-20.0)
[2021-12-03] VITALS (30 sets, daily range): BP systolic 87–149; BP diastolic 37–82; PULSE 59–89; RESP 13–23; TEMP 33.7–37.3; O2SAT 92–98; BMI 24.3
[2021-12-03] MEDS: Doxycycline Hyclate 100 MG in 0.9 % Sodium Chloride 250 ML 166.67 MG IV ×2 (00:53→13:23)
[2021-12-03] MEDS: propofoL 1,000 MG/100 ML VIAL 20.41 MG IVCONT ×6 (00:54→21:51)
[2021-12-03] MEDS: fentaNYL citrate/NS 1,000 MCG/100 ML PLAST..BAG 15 MCG IVCONT ×2 (02:53→09:19)
[2021-12-03 05:27] LABS: MANUAL DIFF FLAG NO
[2021-12-03 05:31] LABS: VBG Base Excess 4.4 mmol/L; VBG HCO3 28 mmol/L (22-26); VBG pCO2 40 mmHg; VBG pH 7.45 (7.32-7.43); VBG pO2 137 mmHg
[2021-12-03 05:33] LABS: Venous Blood Gas Refer to POC result
[2021-12-03 05:51] LABS: Basophils Percent Auto 0.1 % (0-2); Eosinophils Absolute Auto 0.2 X10*3/uL (0.0-0.4); Eosinophils Percent Auto 2.4 % (0-4); Hematocrit 33.9 % (37.0-47.0); Hemoglobin 9.5 g/dl (12.0-16.0); Imm Gran Abs Auto 0.21 X10*3/uL (0.00-0.03); Imm Gran Pct Auto 2.8 % (0.0-0.4); Lymphocytes Absolute Auto 1.6 X10*3/uL (1.2-4.9); Mean Corpuscular Hemoglobin 23.1 pg (27.0-33.0); Mean Corpuscular Volume 82.3 fL (80.0-98.0); Mean Platelet Volume 10.7 fL (9.4-12.3); Monocytes Absolute Auto 0.7 X10*3/uL (0.1-1.2); Monocytes Percent Auto 9.2 % (2-11); Neutrophils Absolute Auto 4.8 x10*3/uL (2.0-8.3); Neutrophils Percent Auto 64.5 % (45-73); Platelet Count 316 X10*3/uL (160-400); Red Blood Count 4.12 X10*6/uL (4.20-5.50); Red Cell Distribution Width 14.7 % (11.0-16.0); White Blood Count 7.4 X10*3/uL (4.8-10.8)
[2021-12-03 05:54] LABS: Alanine Aminotransferase 47 U/L (0-31); Albumin Level 2.5 g/dL (3.5-5.0); Alkaline Phosphatase 224 U/L (39-117); Anion Gap 13 (12-20); Aspartate Amino Transferase 46 U/L (5-31); Bilirubin Direct 0.2 mg/dL (0.0-0.5); Bilirubin Total 0.3 mg/dL (0.0-1.0); Blood Urea Nitrogen 24 mg/dL (9-16); Calcium 8.7 mg/dL (8.4-10.2); Carbon Dioxide 27 mmol/L (22-29); Chloride 105 mmol/L (96-108); Creatinine Clr Calc Pharmacy 104.7; Estimated Glomerular Filt Rate > 60; Glucose Random 120 mg/dL (60-115); Magnesium 2.2 mg/dL (1.6-2.6); Phosphorus 3.6 mg/dL (2.7-4.5); Potassium 4.6 mmol/L (3.3-5.1); Sodium 140 mmol/L (135-145); Total Protein 5.5 g/dL (6.5-8.0)
[2021-12-03] MEDS: Levothyroxine Sodium 175 MCG TABLET PO (06:04)
[2021-12-03] MEDS: Pantoprazole Sodium 40 MG/10 ML VIAL IVPUSH ×2 (06:04→15:50)
[2021-12-03 06:15] LABS: INTERNATIONAL NORM RATIO 1.3 (0.9-1.1); Prothrombin Time 14.4 SEC (9.9-13.0)
[2021-12-03 06:16] LABS: Partial Thromboplastin Time 32.6 SEC (24.1-38.0)
[2021-12-03] MEDS: dexAMETHasone sod phosphate 4 MG/ML VIAL 6 MG IVPUSH (07:28)
[2021-12-03] MEDS: vancomycin HCL 750 MG in 0.9 % Sodium Chloride 250 ML 265 MG IV ×2 (07:29→20:24)
[2021-12-03] MEDS: Chlorhexidine Gluc Oral Rinse 15 ML MOUTHWASH BUCCAL ×3 (07:29→20:25)
[2021-12-03] MEDS: rifAXIMin 550 MG TABLET PO ×3 (07:29→20:25)
[2021-12-03] MEDS: Apixaban 5 MG TABLET PO ×2 (07:29→20:25)
[2021-12-03] MEDS: Albuterol/Iprat 2.5/0.5MG 3 ML AMPUL.NEB INHALE ×2 (08:02→10:30)
[2021-12-03] MEDS: fentaNYL citrate/NS 1,000 MCG/100 ML PLAST..BAG 17.5 MCG IVCONT ×2 (15:50→20:24)
--- NOTE | 2021-12-03 18:43 | PC.NURSE ---
PT HAD MULTIPLE BREAKTHROUGH MOMENTS WITH SEDATION. EYES OPENED, TRACKED, DID NOT FOLLOW COMMANDS. RESTLESS AT TIMES. RESTRAINTS REMAIN FOR AIRWAY SAFETY. BM X 2. PTS SISTER/HCP OWEN UPDATED BY THIS RN AND MD.
[2021-12-03] MEDS: Albumin Human 25 % 100 ML IV ×2 (20:23→22:52)
[2021-12-03] MEDS: Midazolam HCl/PF 2 MG/2 ML VIAL IVPUSH (20:35)
--- NOTE | 2021-12-03 21:06 | W.PM.CCHP ---
Procedures Date of Service Date of Service: 12/03/21 Central Line Placement Right IJ: Central Line Comments: venous access needed Consent for Procedure: Emergent-no informed consent obtained Time out performed: Yes Sterile Technique Used: Yes Patient placed on monitor/pulse ox: Yes MD prep: mask, gown and gloves Central line prep: Chlorhexidine scrub and sterile drapes applied Ultrasound used for placement: Yes Central line lumen inserted: triple Post procedure: sutured in place, good blood return, all ports aspirated, flushed, capped and sterile dressing applied Post procedure x-ray: tip of catheter in good position and no pneumothorax seen Patient tolerated procedure: well and no complications Complications: none
[2021-12-04] VITALS (31 sets, daily range): BP systolic 90–149; BP diastolic 43–83; PULSE 50–86; RESP 16–20; TEMP 32.5–37; O2SAT 86–98; BMI 24.5
[2021-12-04] MEDS: Doxycycline Hyclate 100 MG in 0.9 % Sodium Chloride 250 ML 166.67 MG IV (00:36)
[2021-12-04] MEDS: fentaNYL citrate/NS 1,000 MCG/100 ML PLAST..BAG 17.5 MCG IVCONT (01:45)
[2021-12-04] MEDS: propofoL 1,000 MG/100 ML VIAL 20.41 MG IVCONT ×6 (01:45→19:57)
[2021-12-04] MEDS: LORazepam 2 MG/ML VIAL IVPUSH (05:17)
[2021-12-04 05:31] LABS: VBG Base Excess 4.4 mmol/L; VBG HCO3 28 mmol/L (22-26); VBG pCO2 38 mmHg; VBG pH 7.46 (7.32-7.43); VBG pO2 44 mmHg
[2021-12-04 05:33] LABS: Venous Blood Gas Refer to POC result
[2021-12-04 05:35] LABS: MANUAL DIFF FLAG NO
[2021-12-04 05:50] LABS: Basophils Percent Auto 0.2 % (0-2); Eosinophils Absolute Auto 0.1 X10*3/uL (0.0-0.4); Hematocrit 34.1 % (37.0-47.0); Hemoglobin 9.5 g/dl (12.0-16.0); Imm Gran Abs Auto 0.11 X10*3/uL (0.00-0.03); Imm Gran Pct Auto 1.7 % (0.0-0.4); Lymphocytes Absolute Auto 1.7 X10*3/uL (1.2-4.9); Lymphocytes Percent Auto 25.4 % (20-40); Mean Corpuscular HGB Conc 27.9 g/dl (31.0-35.0); Mean Corpuscular Hemoglobin 23.1 pg (27.0-33.0); Mean Corpuscular Volume 82.8 fL (80.0-98.0); Mean Platelet Volume 10.8 fL (9.4-12.3); Monocytes Absolute Auto 0.5 X10*3/uL (0.1-1.2); Neutrophils Absolute Auto 4.2 x10*3/uL (2.0-8.3); Neutrophils Percent Auto 63.7 % (45-73); Platelet Count 341 X10*3/uL (160-400); Red Blood Count 4.12 X10*6/uL (4.20-5.50); White Blood Count 6.6 X10*3/uL (4.8-10.8)
[2021-12-04 05:58] LABS: INTERNATIONAL NORM RATIO 1.2 (0.9-1.1); Prothrombin Time 13.7 SEC (9.9-13.0)
[2021-12-04 05:59] LABS: D Dimer High Sensitivity 1120 NG/ML; Partial Thromboplastin Time 31.8 SEC (24.1-38.0)
[2021-12-04] MEDS: dexmedeTOMIDidine HCL/NS 400 MCG/100 ML INFUS..BTL 15.1 MCG IVCONT ×3 (05:59→19:56)
[2021-12-04 06:01] LABS: Alanine Aminotransferase 34 U/L (0-31); Albumin Level 3.3 g/dL (3.5-5.0); Alkaline Phosphatase 188 U/L (39-117); Aspartate Amino Transferase 30 U/L (5-31); Bilirubin Direct 0.2 mg/dL (0.0-0.5); Bilirubin Total 0.3 mg/dL (0.0-1.0); Total Protein 6.1 g/dL (6.5-8.0)
[2021-12-04] MEDS: Furosemide 40 MG/4 ML VIAL IVPUSH ×2 (06:02→11:00)
[2021-12-04 06:06] LABS: Anion Gap 11 (12-20); B Type Natriuretic Peptide 361 pg/mL (<100); Blood Urea Nitrogen 25 mg/dL (9-16); Calcium 9.6 mg/dL (8.4-10.2); Carbon Dioxide 30 mmol/L (22-29); Chloride 105 mmol/L (96-108); Creatinine Clr Calc Pharmacy 102.3; Estimated Glomerular Filt Rate > 60; Glucose Random 114 mg/dL (60-115); Lactate Dehydrogenase 285 U/L (122-220); Potassium 4.4 mmol/L (3.3-5.1); Sodium 142 mmol/L (135-145); Vancomycin Trough 18.9 mcg/mL (10.0-20.0)
[2021-12-04 06:24] LABS: Ferritin 544 ng/mL (10-250)
[2021-12-04] MEDS: dexAMETHasone sod phosphate 4 MG/ML VIAL 6 MG IVPUSH (07:35)
[2021-12-04] MEDS: fentaNYL citrate/NS 1,000 MCG/100 ML PLAST..BAG 20 MCG IVCONT ×4 (07:35→22:40)
[2021-12-04] MEDS: Apixaban 5 MG TABLET PO ×2 (07:35→22:02)
[2021-12-04] MEDS: Chlorhexidine Gluc Oral Rinse 15 ML MOUTHWASH BUCCAL ×3 (07:35→22:02)
[2021-12-04] MEDS: rifAXIMin 550 MG TABLET PO ×3 (07:36→22:02)
[2021-12-04] MEDS: Levothyroxine Sodium 175 MCG TABLET PO (07:36)
[2021-12-04] MEDS: cefTRIAXone sodium 1 GM in 0.9 % Sodium Chloride 50 ML IV (10:41)
--- NOTE | 2021-12-04 10:49 | MHC.CLN ---
F/U PT REMAINS INTUBATED AND SEDATED. PROMOTE RUNNING AT MAX GOAL RATE OF [address] RECOMMENDS DECREASING RATE OF TUBE FEED BASED ON INCREASE IN SEDATION AND BUN TRENDING HIGHER. RECOMMEND PROMOTE AT MAX GOAL RATE 35 ML/HR WITH 240 ML FREE WATER FLUSHES Q 8 HRS TO PROVIDE 840 KCALS (1379 KCALS WITH SEDATION; 25.7 KCALS/KG BASED ON CMW), 52.5 G PROTEIN (.98 G/KG BASED OM CMW), 1424 ML TOTAL WATER FROM FORMULA AND FLUSH (26.5 ML/KG BASED OM CMW) MONITOR TOLERANCE, RESIDUALS AND LYTES
--- NOTE | 2021-12-04 11:17 | P.PNCC_ITS ---
Subjective Subjective Date of Service: 12/04/21 Interval History: 46-year-old lady with underlying mixed connective tissue disease on prednisone on Plaquenil, with prior history of Severe, hypothyroidism, peripheral arterial disease, respiratory failure requiring tracheostomy with later reversal, COVID positive on 11/25/2021 admitted on 11/27/2021 with COVID-19 ARDS and Serratia pneumonia superinfection requiring intubation and ventilatory support, further complicated by C diff colitis. No events overnight. Critical Care Time (minutes): 45 Physical Exam Vital Signs: Vital Signs: Last Vital Signs Temp 90.5 F L 12/04/21 09:00 Pulse 59 12/04/21 11:00 Resp 20 12/04/21 11:00 BP 136/71 12/04/21 11:00 Pulse Ox 93 12/04/21 11:00 Oxygen Flow Rate 4 11/25/21 07:42 BMI result Body Mass Index 24.5 Const: General: no acute distress and other ( sedated on the vent) Eyes: Sclerae: sclerae normal Neck: Neck: Yes no lymphadenopathy, Yes trachea midline and Yes supple Resp: Auscultation: crackles ( diffuse bilateral) Cardio: Rate: regular rate Rhythm: regular rhythm Heart sounds: no gallops, no murmurs and no rubs GI: Palpation (GI): Soft to palpation and Other GI palpation findings present ( Nontender) Auscultation: normal bowel sounds Extrem: General: No clubbing, No cyanosis and Yes pedal edema ( trace bilateral) Objective Data Labs CBC & Chem 7: 12/04/21 05:26 12/04/21 05:26 Labs: Laboratory Results - last 24 hr 12/04/21 12/04/21 12/04/21 05:24 05:26 05:26 WBC 6.6 RBC 4.12 L Hgb 9.5 L Hct 34.1 L MCV 82.8 MCH 23.1 L MCHC 27.9 L RDW 15.0 Plt Count 341 MPV 10.8 Immature Gran % (Auto) 1.7 H Neut % (Auto) 63.7 Lymph % (Auto) 25.4 [place] % (Auto) 7.0 Eos % (Auto) 2.0 Baso % (Auto) 0.2 Lymph # (Auto) 1.7 [place] # (Auto) 0.5 Eos # (Auto) 0.1 Baso # (Auto) 0.0 Abs Immat Gran (auto) 0.11 H Absolute Neuts (auto) 4.2 Absolute Nucleated RBC 0.000 Nucleated RBC % (auto) 0.0 PT INR APTT D-Dimer High Sensitivty VBG pH 7.46 H VBG pCO2 38 VBG pO2 44 VBG HCO3 28 H VBG O2 Saturation 71.0 VBG Base Excess 4.4 Sodium Potassium Chloride Carbon Dioxide Anion Gap BUN Creatinine Estim Creat Clear Calc Estimated GFR Random Glucose Calcium Phosphorus Magnesium Ferritin Total Bilirubin Direct Bilirubin AST ALT Alkaline Phosphatase Lactate Dehydrogenase B-Natriuretic Peptide Total Protein Albumin Vancomycin Trough 18.9 12/04/21 12/04/21 12/04/21 05:26 05:26 05:26 WBC RBC Hgb Hct MCV MCH MCHC RDW Plt Count MPV Immature Gran % (Auto) Neut % (Auto) Lymph % (Auto) [place] % (Auto) Eos % (Auto) Baso % (Auto) Lymph # (Auto) [place] # (Auto) Eos # (Auto) Baso # (Auto) Abs Immat Gran (auto) Absolute Neuts (auto) Absolute Nucleated RBC Nucleated RBC % (auto) PT 13.7 H INR 1.2 H APTT 31.8 D-Dimer High Sensitivty 1120 VBG pH VBG pCO2 VBG pO2 VBG HCO3 VBG O2 Saturation VBG Base Excess Sodium 142 Potassium 4.4 Chloride 105 Carbon Dioxide 30 H Anion Gap 11 L BUN 25 H Creatinine 0.60 Estim Creat Clear Calc 102.3 Estimated GFR > 60 Random Glucose 114 Calcium 9.6 D Phosphorus 3.0 Magnesium 2.0 Ferritin Total Bilirubin Direct Bilirubin AST ALT Alkaline Phosphatase Lactate Dehydrogenase 285 H B-Natriuretic Peptide Total Protein Albumin Vancomycin Trough 12/04/21 12/04/21 05:26 05:26 WBC RBC Hgb Hct MCV MCH MCHC RDW Plt Count MPV Immature Gran % (Auto) Neut % (Auto) Lymph % (Auto) [place] % (Auto) Eos % (Auto) Baso % (Auto) Lymph # (Auto) [place] # (Auto) Eos # (Auto) Baso # (Auto) Abs Immat Gran (auto) Absolute Neuts (auto) Absolute Nucleated RBC Nucleated RBC % (auto) PT INR APTT D-Dimer High Sensitivty VBG pH VBG pCO2 VBG pO2 VBG HCO3 VBG O2 Saturation VBG Base Excess Sodium Potassium Chloride Carbon Dioxide Anion Gap BUN Creatinine Estim Creat Clear Calc Estimated GFR Random Glucose Calcium Phosphorus Magnesium Ferritin 544 H Total Bilirubin 0.3 Direct Bilirubin 0.2 AST 30 ALT 34 H Alkaline Phosphatase 188 H Lactate Dehydrogenase B-Natriuretic Peptide 361 H Total Protein 6.1 L Albumin 3.3 L D Vancomycin Trough Microbiology Microbiology Results: Microbiology 12/02/21 15:46 Sputum - Suctioned Gram Stain - Final 12/02/21 15:46 Sputum - Suctioned Sputum Culture - Preliminary Gram negative leanna 11/28/21 17:15 Blood - Venous Blood Culture - Final No growth after 5 days. 11/28/21 17:15 Blood - Venous Blood Culture - Final No growth after 5 days. 11/28/21 17:59 Sputum - Induced Gram Stain - Final 11/28/21 17:59 Sputum - Induced Sputum Culture - Final Gram negative leanna 11/25/21 08:56 Blood - Venous Blood Culture - Final No growth after 5 days. 11/25/21 08:22 Blood - Venous Blood Culture - Final No growth after 5 days. 11/28/21 17:59 Urine Catheterized - Lara Catheter Urine Culture - Final No growth. 11/27/21 Unknown Urine clean catch - Urine [place] Urine Culture - Final No growth. 11/27/21 19:04 Sputum - Induced Gram Stain - Final 11/27/21 19:04 Sputum - Induced Sputum Culture - Final Serratia marcescens Progress Note: A&P Assessment and plan (1) C. difficile colitis: Status: Acute (2) Secondary bacterial pneumonia: Status: Acute (3) Immunosuppression due to chronic steroid use: Status: Acute (4) Mixed connective tissue disease: Status: Acute (5) Acute hypoxemic respiratory failure due to COVID-19: Status: Acute (6) Acute respiratory distress syndrome (ARDS) due to COVID-19 virus: Status: Acute Assessment and Plan: Assessment: 46-year-old lady with chronic immunosuppression secondary to underlying mixed connective tissue disease admitted with acute hypoxic respiratory failure with COVID-19 and Serratia pneumonia, further complicated by C diff colitis. Plan: Neuro: No acute issues. Cardiac: No acute issues. Underlying diastolic dysfunction. Pulmonary: Acute hypoxic respiratory failure secondary to COVID-19 ARDS and Serratia pneumonia requiring ventilatory support. Continue to titrate off as tolerated. Renal: No acute issues. Endo: No acute issues. GI: C diff, continue on Xifaxan. ID: COVID-19, continue baricitinib and dexamethasone. Serratia pneumonia, continue ceftriaxone. Heme/Onc: No acute issues. Psych: No acute issues. Miscellaneous: No acute issues. Underlying mixed connective tissue disease. Prophylaxis: Apixaban, omeprazole Diet: tube feeds Critical care time spent: 45 minutes Quality Stroke Does the patient have a stroke diagnosis?: No VTE Prior VTE?: No VTE Risk Level:: Medical - moderate - high VTE Device Contraindication: Treatment Not Indicated VTE Drug Contraindication: N/A - Med Ordered
--- NOTE | 2021-12-04 12:56 | MHC.CM.PN ---
Pt continues on ventilatory support in ICU with COVID: 55% FiO2 with no plans to extubate today. Original d/c plan was for a return to home with existing [employer] services - to reassess pt's d/c needs once she is extubated
[2021-12-04 18:31] LABS: Anion Gap 14 (12-20); Blood Urea Nitrogen 27 mg/dL (9-16); Calcium 9.9 mg/dL (8.4-10.2); Carbon Dioxide 37 mmol/L (22-29); Chloride 96 mmol/L (96-108); Creatinine Clr Calc Pharmacy 93.5; Estimated Glomerular Filt Rate > 60; Glucose Random 113 mg/dL (60-115); Potassium 4.8 mmol/L (3.3-5.1); Sodium 142 mmol/L (135-145)
[2021-12-04] MEDS: Midazolam HCl/PF 2 MG/2 ML VIAL 4 MG IVPUSH (19:27)
[2021-12-04] MEDS: Cisatracurium Besylate 20 MG/10 ML VIAL IVPUSH (19:35)
[2021-12-04 20:25] LABS: ABG Base Excess 11.2 mmol/L; ABG HCO3 36 mmol/L (22-26); ABG pCO2 51 mmHg (32-45); ABG pCO2 TC 50 mmHg (32-45); ABG pH 7.46 (7.35-7.45); ABG pH TC 7.46 (7.35-7.45); ABG pO2 79 mmHg (83-108); ABG pO2 TC 78 (83-108)
[2021-12-05] VITALS (33 sets, daily range): BP systolic 103–191; BP diastolic 52–117; PULSE 48–124; RESP 17–34; TEMP 33.9–38.3; O2SAT 84–97; BMI 22.7
[2021-12-05] MEDS: propofoL 1,000 MG/100 ML VIAL 20.41 MG IVCONT ×2 (00:44→04:30)
[2021-12-05 01:44] LABS: ABG Refer to POC result
[2021-12-05] MEDS: dexmedeTOMIDidine HCL/NS 400 MCG/100 ML INFUS..BTL 15.1 MCG IVCONT ×2 (02:02→08:35)
[2021-12-05] MEDS: fentaNYL citrate/NS 1,000 MCG/100 ML PLAST..BAG 20 MCG IVCONT (04:30)
[2021-12-05 05:20] LABS: MANUAL DIFF FLAG NO
[2021-12-05 05:22] LABS: Basophils Percent Auto 0.2 % (0-2); Eosinophils Absolute Auto 0.2 X10*3/uL (0.0-0.4); Eosinophils Percent Auto 3.4 % (0-4); Hematocrit 36.6 % (37.0-47.0); Hemoglobin 10.4 g/dl (12.0-16.0); Imm Gran Abs Auto 0.09 X10*3/uL (0.00-0.03); Imm Gran Pct Auto 1.4 % (0.0-0.4); Lymphocytes Absolute Auto 2.1 X10*3/uL (1.2-4.9); Lymphocytes Percent Auto 32.6 % (20-40); Mean Corpuscular HGB Conc 28.4 g/dl (31.0-35.0); Mean Corpuscular Hemoglobin 23.2 pg (27.0-33.0); Mean Corpuscular Volume 81.5 fL (80.0-98.0); Mean Platelet Volume 9.8 fL (9.4-12.3); Monocytes Absolute Auto 0.5 X10*3/uL (0.1-1.2); Monocytes Percent Auto 8.2 % (2-11); Neutrophils Absolute Auto 3.5 x10*3/uL (2.0-8.3); Neutrophils Percent Auto 54.2 % (45-73); Platelet Count 380 X10*3/uL (160-400); Red Blood Count 4.49 X10*6/uL (4.20-5.50); Red Cell Distribution Width 14.8 % (11.0-16.0); White Blood Count 6.4 X10*3/uL (4.8-10.8)
[2021-12-05 05:25] LABS: VBG Base Excess 14.9 mmol/L; VBG HCO3 40 mmol/L (22-26); VBG pCO2 53 mmHg; VBG pH 7.48 (7.32-7.43); VBG pO2 55 mmHg
[2021-12-05 05:26] LABS: Venous Blood Gas Refer to POC result
[2021-12-05 05:38] LABS: Alanine Aminotransferase 36 U/L (0-31); Albumin Level 3.4 g/dL (3.5-5.0); Alkaline Phosphatase 196 U/L (39-117); Anion Gap 12 (12-20); Aspartate Amino Transferase 35 U/L (5-31); Bilirubin Total 0.4 mg/dL (0.0-1.0); Blood Urea Nitrogen 28 mg/dL (9-16); Calcium 9.6 mg/dL (8.4-10.2); Carbon Dioxide 36 mmol/L (22-29); Chloride 97 mmol/L (96-108); Creatinine Clr Calc Pharmacy 97.9; Estimated Glomerular Filt Rate > 60; Glucose Random 107 mg/dL (60-115); Phosphorus 3.3 mg/dL (2.7-4.5); Potassium 4.1 mmol/L (3.3-5.1); Sodium 141 mmol/L (135-145); Total Protein 6.6 g/dL (6.5-8.0)
[2021-12-05] MEDS: Levothyroxine Sodium 175 MCG TABLET PO (06:31)
[2021-12-05] MEDS: Apixaban 5 MG TABLET PO (08:32)
[2021-12-05] MEDS: rifAXIMin 550 MG TABLET PO (08:32)
[2021-12-05] MEDS: Furosemide 40 MG/4 ML VIAL IVPUSH (08:32)
[2021-12-05] MEDS: Chlorhexidine Gluc Oral Rinse 15 ML MOUTHWASH BUCCAL (08:32)
[2021-12-05] MEDS: dexAMETHasone sod phosphate 4 MG/ML VIAL 6 MG IVPUSH (08:32)
[2021-12-05] MEDS: cefTRIAXone sodium 1 GM in 0.9 % Sodium Chloride 50 ML IV (08:35)
[2021-12-05] MEDS: Albumin Human 25 % 100 ML IV ×3 (08:43→20:43)
--- NOTE | 2021-12-05 10:22 | MHC.CLN ---
F/U PT RECEIVING PROMOTE AT MAX GOAL RATE 35 ML/HR WITH 240 ML FREE WATER FLUSHES Q 8 HRS PROVIDES 840 KCALS (1379 KCALS WITH SEDATION; 25.7 KCALS/KG BASED ON CMW), 52.5 G PROTEIN (.98 G/KG BASED OM CMW), 1424 ML TOTAL WATER FROM FORMULA AND FLUSH (26.5 ML/KG BASED OM CMW) DISCUSSED AT ROUNDS; SEDATION VACATION PLANNED CONTINUE TO MONITOR TOLERANCE, RESIDUALS AND LYTES
[2021-12-05] MEDS: Naloxone HCl 0.4 MG/ML VIAL 0.2 MG IVPUSH (10:30)
--- NOTE | 2021-12-05 13:07 | PM.CCPN ---
Subjective Subjective Date of Service: 12/05/21 Interval History: 46-year-old lady with underlying mixed connective tissue disease on prednisone on Plaquenil, with prior history of ? Severe, hypothyroidism, peripheral arterial disease, respiratory failure requiring tracheostomy with later reversal, COVID positive on 11/25/2021 admitted on 11/27/2021 with COVID-19 ARDS and Serratia pneumonia superinfection requiring intubation? and ventilatory support, further complicated by C diff colitis. extubated this a.m.. ? No events overnight. Critical Care Time (minutes): 45 Physical Exam Vital Signs: Vital Signs: Last Vital Signs Temp 100.9 F H 12/05/21 12:00 Pulse 79 12/05/21 12:00 Resp 27 H 12/05/21 12:11 BP 137/75 12/05/21 12:00 Pulse Ox 89 L 12/05/21 12:00 Oxygen Flow Rate 4 11/25/21 07:42 BMI result Body Mass Index 22.7 Const: General: no acute distress, alert and awake Eyes: Sclerae: sclerae normal EOM: EOMs intact bilaterally Neck: Neck: Yes no lymphadenopathy, Yes trachea midline and Yes supple Resp: Effort & Inspection: normal respiratory effort and no respiratory distress Auscultation: crackles ( Bibas[place]) Cardio: Rate: regular rate Rhythm: regular rhythm Heart sounds: no gallops, no murmurs and no rubs GI: Palpation (GI): Soft to palpation and Other GI palpation findings present ( Nontender) Auscultation: normal bowel sounds Extrem: General: No clubbing, No cyanosis and Yes pedal edema ( trace bilateral) Objective Data Labs CBC & Chem 7: 12/05/21 05:14 12/05/21 05:14 Labs: Laboratory Results - last 24 hr 12/04/21 12/04/21 12/05/21 17:53 20:19 05:14 WBC 6.4 RBC 4.49 Hgb 10.4 L Hct 36.6 L MCV 81.5 MCH 23.2 L MCHC 28.4 L RDW 14.8 Plt Count 380 MPV 9.8 Immature Gran % (Auto) 1.4 H Neut % (Auto) 54.2 Lymph % (Auto) 32.6 [place] % (Auto) 8.2 Eos % (Auto) 3.4 Baso % (Auto) 0.2 Lymph # (Auto) 2.1 [place] # (Auto) 0.5 Eos # (Auto) 0.2 Baso # (Auto) 0.0 Abs Immat Gran (auto) 0.09 H Absolute Neuts (auto) 3.5 Absolute Nucleated RBC 0.000 Nucleated RBC % (auto) 0.0 O2 Saturation 93.0 ABG pH at Pt Temp 7.46 H ABG pH (Temp Correct) 7.46 H ABG pCO2 at Pt Temp 51 H ABG pCO2 (Temp Corrct 50 H ABG pO2 at Pt Temp 79 L ABG pO2 (Temp Correct 78 L ABG HCO3 36 H ABG Base Excess (Actual) 11.2 VBG pH VBG pCO2 VBG pO2 VBG HCO3 VBG O2 Saturation VBG Base Excess Sodium 142 Potassium 4.8 Chloride 96 Carbon Dioxide 37 H Anion Gap 14 BUN 27 H Creatinine 0.66 Estim Creat Clear Calc 93.5 Estimated GFR > 60 Random Glucose 113 Calcium 9.9 Phosphorus Magnesium Total Bilirubin AST ALT Alkaline Phosphatase Total Protein Albumin 12/05/21 12/05/21 05:14 05:18 WBC RBC Hgb Hct MCV MCH MCHC RDW Plt Count MPV Immature Gran % (Auto) Neut % (Auto) Lymph % (Auto) [place] % (Auto) Eos % (Auto) Baso % (Auto) Lymph # (Auto) [place] # (Auto) Eos # (Auto) Baso # (Auto) Abs Immat Gran (auto) Absolute Neuts (auto) Absolute Nucleated RBC Nucleated RBC % (auto) O2 Saturation ABG pH at Pt Temp ABG pH (Temp Correct) ABG pCO2 at Pt Temp ABG pCO2 (Temp Corrct ABG pO2 at Pt Temp ABG pO2 (Temp Correct ABG HCO3 ABG Base Excess (Actual) VBG pH 7.48 H VBG pCO2 53 VBG pO2 55 VBG HCO3 40 H VBG O2 Saturation 83.0 VBG Base Excess 14.9 Sodium 141 Potassium 4.1 Chloride 97 Carbon Dioxide 36 H Anion Gap 12 BUN 28 H Creatinine 0.63 Estim Creat Clear Calc 97.9 Estimated GFR > 60 Random Glucose 107 Calcium 9.6 Phosphorus 3.3 Magnesium 2.0 Total Bilirubin 0.4 AST 35 H ALT 36 H Alkaline Phosphatase 196 H Total Protein 6.6 Albumin 3.4 L Microbiology Microbiology Results: Microbiology 12/02/21 15:46 Sputum - Suctioned Gram Stain - Final 12/02/21 15:46 Sputum - Suctioned Sputum Culture - Final Serratia marcescens 11/28/21 17:15 Blood - Venous Blood Culture - Final No growth after 5 days. 11/28/21 17:15 Blood - Venous Blood Culture - Final No growth after 5 days. 11/28/21 17:59 Sputum - Induced Gram Stain - Final 11/28/21 17:59 Sputum - Induced Sputum Culture - Final Gram negative leanna 11/25/21 08:56 Blood - Venous Blood Culture - Final No growth after 5 days. 11/25/21 08:22 Blood - Venous Blood Culture - Final No growth after 5 days. 11/28/21 17:59 Urine Catheterized - Lara Catheter Urine Culture - Final No growth. 11/27/21 Unknown Urine clean catch - Urine [place] Urine Culture - Final No growth. 11/27/21 19:04 Sputum - Induced Gram Stain - Final 11/27/21 19:04 Sputum - Induced Sputum Culture - Final Serratia marcescens Progress Note: A&P Assessment and plan (1) Acute respiratory distress syndrome (ARDS) due to COVID-19 virus: Status: Acute (2) C. difficile colitis: Status: Acute (3) Secondary bacterial pneumonia: Status: Acute (4) Immunosuppression due to chronic steroid use: Status: Acute (5) Mixed connective tissue disease: Status: Acute (6) Acute hypoxemic respiratory failure due to COVID-19: Status: Acute Assessment and Plan: Assessment:? 46-year-old lady with chronic immunosuppression secondary to underlying mixed connective tissue disease admitted with acute hypoxic respiratory failure with COVID-19 and Serratia pneumonia, further complicated by C diff colitis. Plan: Neuro:? No acute issues. Cardiac:? No acute issues.? Underlying diastolic dysfunction. Pulmonary:? ? Acute hypoxic respiratory failure? secondary to COVID-19 ARDS and Serratia pneumonia requiring ventilatory support.? extubated this a.m.. Continue to titrate of supplemental oxygen as tolerated. Renal:? No acute issues.? Endo:? No acute issues.? GI:? ? C diff, continue on Xifaxan. ID:? ? COVID-19, continue baricitinib and? dexamethasone.? Serratia pneumonia, continue ceftriaxone. Heme/Onc:? No acute issues. Psych:? No acute issues. Miscellaneous:? No acute issues.? Underlying mixed connective tissue disease. Prophylaxis: ? Apixaban Diet: Pending swallow evaluation Critical care time spent:? 45 minutes Quality Stroke Does the patient have a stroke diagnosis?: No VTE Prior VTE?: No VTE Risk Level:: Medical - moderate - high VTE Device Contraindication: Treatment Not Indicated VTE Drug Contraindication: N/A - Med Ordered
--- NOTE | 2021-12-05 14:41 | MHC.CM.PN ---
Pt extubated and placed on high flow O2. Call placed to pt's sister/HCP Hafsa to update and to discuss d/c planning: Per Hafsa, pt is not very forthcoming with her on medical issues and Hafsa was unaware of pt's functional abilities, total services at home or potential rehab needs. Original d/c plan was for a return to home with [employer], new [facility] visits: Pt may likely need STR placement - CM to await pt's respiratory status to improve for CM discussion about d/c plans r/t STR.
[2021-12-05] MEDS: LORazepam 2 MG/ML VIAL 1 MG IVPUSH ×2 (15:09→20:49)
[2021-12-05] MEDS: Midazolam HCl/PF 2 MG/2 ML VIAL IVPUSH (21:26)
[2021-12-05] MEDS: Haloperidol Lactate 5 MG/ML VIAL IVPUSH (21:36)
[2021-12-05] MEDS: fentaNYL citrate/PF 100 MCG/2 ML VIAL 150 MCG IVPUSH (21:36)
[2021-12-05] MEDS: dexmedeTOMIDidine HCL/NS 400 MCG/100 ML INFUS..BTL 21.15 MCG IVCONT (21:55)
[2021-12-05] MEDS: Etomidate 20 MG/10 ML VIAL IVPUSH (22:53)
[2021-12-05] MEDS: Rocuronium Bromide 50 MG/5 ML VIAL IVPUSH (22:53)
[2021-12-05] MEDS: propofoL 200 MG/20 ML VIAL 50 MG IVPUSH (22:53)
[2021-12-05] MEDS: propofoL 1,000 MG/100 ML VIAL 6.77 MG IVCONT (22:54)
[2021-12-05] MEDS: fentaNYL citrate/NS 1,000 MCG/100 ML PLAST..BAG 5 MCG IVCONT (22:54)
--- NOTE | 2021-12-05 22:59 | MHC.PIE ---
Increased anxiety - 02sat 70's to low 80's on 100% on bipap. Patient unable to be redirected - medications not working. Patient reintubated @ 2253 with Viridiana [facility] [employer] - See MAR for meds. Intubate w/ 7.5 ETT at 23cm. AC settings rate 18, 375 TV, 8 peep - 100%. Fent & Prop drip started. Precedex stopped. Restraints applied for airway safety. OG tube placed - X-RAY ordered. [facility] [employer] to update family.
--- NOTE | 2021-12-05 23:15 | W.PM.CCHP ---
Procedures Date of Service Date of Service: 12/05/21 Intubation Intubation Comments: Patient very restltess with acute respiratory distress, refractory to CPAP and multiple sedatives agents requiring emergent intubation for hypoxemia. Patient intubated with 7.5 cuffed ET tube under glide scope guidance with visualization of vocal cords, without immediate complications. ET tube position verified with Chest XRAY. Consent for Procedure: Emergent-no informed consent obtained Time out performed: Yes Sedative: etomidate Mg given: 20 Paralytic: rocuronium Mg given: 50 Laryngoscope: fiber optic video scope ET tube size: 7.5 ET tube uncuffed: No Tube secured depth (cm): 23 Tube secured location: lips Tube placement confirmation: visualized tube passing through cords, equal breath sounds bilaterally, no breath sounds over epigastrium and confirmation by capnometry Patient tolerated procedure: well and no complications Intubation complications: none
[2021-12-06] VITALS (31 sets, daily range): BP systolic 83–174; BP diastolic 42–90; PULSE 60–119; RESP 20–36; TEMP 33.4–38.3; O2SAT 86–100; BMI 20.9
[2021-12-06] MEDS: Furosemide 20 MG/2 ML VIAL IVPUSH (00:51)
[2021-12-06] MEDS: propofoL 1,000 MG/100 ML VIAL 16.92 MG IVCONT ×5 (02:10→23:08)
[2021-12-06] MEDS: Albumin Human 25 % 100 ML IV (02:11)
[2021-12-06] MEDS: LORazepam 2 MG/ML VIAL 1 MG IVPUSH ×3 (02:24→12:22)
[2021-12-06] MEDS: Midazolam HCl/PF 2 MG/2 ML VIAL 4 MG IVPUSH (03:07)
[2021-12-06] MEDS: dexmedeTOMIDidine HCL/NS 400 MCG/100 ML INFUS..BTL 21.15 MCG IVCONT ×5 (03:40→21:41)
[2021-12-06] MEDS: fentaNYL citrate/NS 1,000 MCG/100 ML PLAST..BAG 20 MCG IVCONT ×5 (04:44→23:10)
[2021-12-06 05:22] LABS: VBG Base Excess 12.6 mmol/L; VBG HCO3 36 mmol/L (22-26); VBG pCO2 43 mmHg; VBG pH 7.53 (7.32-7.43); VBG pO2 50 mmHg
[2021-12-06 05:30] LABS: Venous Blood Gas Refer to POC result
[2021-12-06 05:33] LABS: MANUAL DIFF FLAG NO
[2021-12-06 05:44] LABS: Basophils Absolute Auto 0.1 X10*3/uL (0.0-0.2); Basophils Percent Auto 0.3 % (0-2); Eosinophils Absolute Auto 0.9 X10*3/uL (0.0-0.4); Eosinophils Percent Auto 4.7 % (0-4); Hematocrit 39.4 % (37.0-47.0); Hemoglobin 11.4 g/dl (12.0-16.0); Imm Gran Abs Auto 0.19 X10*3/uL (0.00-0.03); Lymphocytes Absolute Auto 1.9 X10*3/uL (1.2-4.9); Lymphocytes Percent Auto 9.3 % (20-40); Mean Corpuscular HGB Conc 28.9 g/dl (31.0-35.0); Mean Corpuscular Hemoglobin 23.3 pg (27.0-33.0); Mean Corpuscular Volume 80.6 fL (80.0-98.0); Monocytes Absolute Auto 0.9 X10*3/uL (0.1-1.2); Monocytes Percent Auto 4.6 % (2-11); Neutrophils Percent Auto 80.1 % (45-73); Platelet Count 525 X10*3/uL (160-400); Red Blood Count 4.89 X10*6/uL (4.20-5.50); Red Cell Distribution Width 15.2 % (11.0-16.0)
[2021-12-06] MEDS: Levothyroxine Sodium 175 MCG TABLET PO (05:50)
[2021-12-06] MEDS: Chlorhexidine Gluc Oral Rinse 15 ML MOUTHWASH BUCCAL ×3 (05:50→19:45)
[2021-12-06 06:10] LABS: Alanine Aminotransferase 50 U/L (0-31); Albumin Level 4.8 g/dL (3.5-5.0); Alkaline Phosphatase 212 U/L (39-117); Anion Gap 16 (12-20); Aspartate Amino Transferase 52 U/L (5-31); Bilirubin Total 1.6 mg/dL (0.0-1.0); Blood Urea Nitrogen 33 mg/dL (9-16); Calcium 10.6 mg/dL (8.4-10.2); Carbon Dioxide 33 mmol/L (22-29); Chloride 99 mmol/L (96-108); Creatinine Clr Calc Pharmacy 73.7; Estimated Glomerular Filt Rate > 60; Glucose Random 104 mg/dL (60-115); Phosphorus 2.5 mg/dL (2.7-4.5); Potassium 3.1 mmol/L (3.3-5.1); Sodium 145 mmol/L (135-145); Total Protein 7.7 g/dL (6.5-8.0)
[2021-12-06] MEDS: Apixaban 5 MG TABLET PO ×2 (08:00→19:44)
[2021-12-06] MEDS: rifAXIMin 550 MG TABLET PO ×3 (08:00→19:44)
[2021-12-06] MEDS: dexAMETHasone sod phosphate 4 MG/ML VIAL 6 MG IVPUSH (08:01)
[2021-12-06] MEDS: cefTRIAXone sodium 1 GM in 0.9 % Sodium Chloride 50 ML IV (08:01)
--- NOTE | 2021-12-06 09:05 | P.PNCC_ITS ---
Subjective Subjective Date of Service: 12/03/21 Interval History: 46 yo with lupus on immunosuppressives with hypoxemic resp failure from covid 19 pneumonitis/ARDS and secondary serratia and/or fungal pneumonia now afebrile for 48hrs. with iatrogenic volume overload and elevated CVP and being diuresed and still on FIO2 50-55% after 1 week intubation Critical Care Time (minutes): 45 Physical Exam Vital Signs: Vital Signs: Last Vital Signs Temp 100.4 F 12/06/21 08:00 Pulse 93 12/06/21 08:00 Resp 27 H 12/06/21 08:00 BP 145/73 H 12/06/21 08:00 Pulse Ox 100 12/06/21 08:00 Oxygen Flow Rate 4 11/25/21 07:42 BMI result Body Mass Index 20.9 sedated/intubated and non-focal neuro CV by echo with preserved LV fx. lungs without accessory/ordiaphragmatic effort abd benign Objective Data Labs CBC & Chem 7: 12/06/21 05:10 12/06/21 05:10 Labs: Laboratory Results - last 24 hr 12/06/21 12/06/21 12/06/21 05:10 05:10 05:15 WBC 20.0 H RBC 4.89 Hgb 11.4 L Hct 39.4 MCV 80.6 MCH 23.3 L MCHC 28.9 L RDW 15.2 Plt Count 525 H D MPV 10.0 Immature Gran % (Auto) 1.0 H Neut % (Auto) 80.1 H Lymph % (Auto) 9.3 L [place] % (Auto) 4.6 Eos % (Auto) 4.7 H Baso % (Auto) 0.3 Lymph # (Auto) 1.9 [place] # (Auto) 0.9 Eos # (Auto) 0.9 H Baso # (Auto) 0.1 Abs Immat Gran (auto) 0.19 H Absolute Neuts (auto) 16.0 H Absolute Nucleated RBC 0.000 Nucleated RBC % (auto) 0.0 VBG pH 7.53 H VBG pCO2 43 VBG pO2 50 VBG HCO3 36 H VBG O2 Saturation 78.0 VBG Base Excess 12.6 Sodium 145 Potassium 3.1 L D Chloride 99 Carbon Dioxide 33 H Anion Gap 16 BUN 33 H Creatinine 0.77 Estim Creat Clear Calc 73.7 Estimated GFR > 60 Random Glucose 104 Calcium 10.6 H D Phosphorus 2.5 L Magnesium 2.0 Total Bilirubin 1.6 H AST 52 H ALT 50 H Alkaline Phosphatase 212 H Total Protein 7.7 Albumin 4.8 D Microbiology Microbiology Results: Microbiology 12/02/21 15:46 Sputum - Suctioned Gram Stain - Final 12/02/21 15:46 Sputum - Suctioned Sputum Culture - Final Serratia marcescens 11/28/21 17:15 Blood - Venous Blood Culture - Final No growth after 5 days. 11/28/21 17:15 Blood - Venous Blood Culture - Final No growth after 5 days. 11/28/21 17:59 Sputum - Induced Gram Stain - Final 11/28/21 17:59 Sputum - Induced Sputum Culture - Final Gram negative leanna 11/25/21 08:56 Blood - Venous Blood Culture - Final No growth after 5 days. 11/25/21 08:22 Blood - Venous Blood Culture - Final No growth after 5 days. 11/28/21 17:59 Urine Catheterized - Lara Catheter Urine Culture - Final No growth. 11/27/21 Unknown Urine clean catch - Urine [place] Urine Culture - Final No growth. 11/27/21 19:04 Sputum - Induced Gram Stain - Final 11/27/21 19:04 Sputum - Induced Sputum Culture - Final Serratia marcescens Progress Note: A&P Assessment and plan (1) Acute respiratory distress syndrome (ARDS) due to COVID-19 virus: Status: Acute (2) C. difficile colitis: Status: Acute (3) Secondary bacterial pneumonia: Status: Acute (4) Immunosuppression due to chronic steroid use: Status: Acute (5) Mixed connective tissue disease: Status: Acute (6) Acute hypoxemic respiratory failure due to COVID-19: Status: Acute (7) Acute exacerbation of chronic obstructive airways disease: Status: Acute (8) Cellulitis of right leg: Status: Acute (9) Ulcer of lower extremity: Status: Acute Assessment and Plan: currently diuresing and keeping Abx. for secondary bacterial pneumonia and C. Dif. Quality Stroke Does the patient have a stroke diagnosis?: No VTE Prior VTE?: No VTE Risk Level:: Medical - moderate - high VTE Device Contraindication: Treatment Not Indicated VTE Drug Contraindication: N/A - Med Ordered
--- NOTE | 2021-12-06 10:35 | MHC.CLN ---
F/U PT WAS EXTUBATED YESTERDAY, BUT THEN RE-INTUBATED LAST EVENING RECOMMEND RE-STARTING PROMOTE AT MAX GOAL RATE 35 ML/HR WITH 240 ML FREE WATER FLUSHES Q 8 HRS TO PROVIDE 840 KCALS (1287 KCALS WITH SEDATION; 24 KCALS/KG BASED ON CMW), 52.5 G PROTEIN (.98 G/KG BASED OM CMW), 1424 ML TOTAL WATER FROM FORMULA AND FLUSH (26.5 ML/KG BASED OM CMW) DISCUSSED AT ROUNDS; NSG TO REPLACE OGT MONITOR TOLERANCE, RESIDUALS AND LYTES
--- NOTE | 2021-12-06 12:52 | PM.CCPN ---
Subjective Subjective Date of Service: 12/06/21 Interval History: 46-year-old lady with underlying mixed connective tissue disease on prednisone on Plaquenil, with prior history of Severe, hypothyroidism, peripheral arterial disease, respiratory failure requiring tracheostomy with later reversal, COVID positive on 11/25/2021 admitted on 11/27/2021 with COVID-19 ARDS and Serratia pneumonia superinfection requiring intubation and ventilatory support, further complicated by C diff colitis. extubated 12/05/2021 in a.m., re-intubation at approximately 10:00 p.m. secondary to hypoxia. Otherwise no events overnight. Critical Care Time (minutes): 45 Physical Exam Vital Signs: Vital Signs: Last Vital Signs Temp 100.4 F 12/06/21 12:00 Pulse 74 12/06/21 12:00 Resp 20 12/06/21 12:00 BP 138/75 12/06/21 12:00 Pulse Ox 93 12/06/21 12:00 Oxygen Flow Rate 4 11/25/21 07:42 BMI result Body Mass Index 20.9 Const: General: no acute distress and other (Sedated on the vent) Eyes: Sclerae: sclerae normal EOM: EOMs intact bilaterally Neck: Neck: Yes no lymphadenopathy, Yes trachea midline and Yes supple Resp: Auscultation: crackles (Bibasilar) Cardio: Rate: regular rate Rhythm: regular rhythm Heart sounds: no gallops, no murmurs and no rubs GI: Palpation (GI): Soft to palpation and Other GI palpation findings present ( Nontender) Auscultation: normal bowel sounds Extrem: General: Yes no pedal edema, No clubbing and No cyanosis Objective Data Labs CBC & Chem 7: 12/06/21 05:10 12/06/21 05:10 Labs: Laboratory Results - last 24 hr 12/06/21 12/06/21 12/06/21 05:10 05:10 05:15 WBC 20.0 H RBC 4.89 Hgb 11.4 L Hct 39.4 MCV 80.6 MCH 23.3 L MCHC 28.9 L RDW 15.2 Plt Count 525 H D MPV 10.0 Immature Gran % (Auto) 1.0 H Neut % (Auto) 80.1 H Lymph % (Auto) 9.3 L [place] % (Auto) 4.6 Eos % (Auto) 4.7 H Baso % (Auto) 0.3 Lymph # (Auto) 1.9 [place] # (Auto) 0.9 Eos # (Auto) 0.9 H Baso # (Auto) 0.1 Abs Immat Gran (auto) 0.19 H Absolute Neuts (auto) 16.0 H Absolute Nucleated RBC 0.000 Nucleated RBC % (auto) 0.0 VBG pH 7.53 H VBG pCO2 43 VBG pO2 50 VBG HCO3 36 H VBG O2 Saturation 78.0 VBG Base Excess 12.6 Sodium 145 Potassium 3.1 L D Chloride 99 Carbon Dioxide 33 H Anion Gap 16 BUN 33 H Creatinine 0.77 Estim Creat Clear Calc 73.7 Estimated GFR > 60 Random Glucose 104 Calcium 10.6 H D Phosphorus 2.5 L Magnesium 2.0 Total Bilirubin 1.6 H AST 52 H ALT 50 H Alkaline Phosphatase 212 H Total Protein 7.7 Albumin 4.8 D Microbiology Microbiology Results: Microbiology 12/02/21 15:46 Sputum - Suctioned Gram Stain - Final 12/02/21 15:46 Sputum - Suctioned Sputum Culture - Final Serratia marcescens 11/28/21 17:15 Blood - Venous Blood Culture - Final No growth after 5 days. 11/28/21 17:15 Blood - Venous Blood Culture - Final No growth after 5 days. 11/28/21 17:59 Sputum - Induced Gram Stain - Final 11/28/21 17:59 Sputum - Induced Sputum Culture - Final Gram negative leanna 11/25/21 08:56 Blood - Venous Blood Culture - Final No growth after 5 days. 11/25/21 08:22 Blood - Venous Blood Culture - Final No growth after 5 days. 11/28/21 17:59 Urine Catheterized - Lara Catheter Urine Culture - Final No growth. 11/27/21 Unknown Urine clean catch - Urine [place] Urine Culture - Final No growth. 11/27/21 19:04 Sputum - Induced Gram Stain - Final 11/27/21 19:04 Sputum - Induced Sputum Culture - Final Serratia marcescens Progress Note: A&P Assessment and plan (1) Acute respiratory distress syndrome (ARDS) due to COVID-19 virus: Status: Acute (2) C. difficile colitis: Status: Acute (3) Mixed connective tissue disease: Status: Acute (4) Acute hypoxemic respiratory failure due to COVID-19: Status: Acute (5) Immunosuppression due to chronic steroid use: Status: Acute (6) Severe anxiety with panic: Status: Acute Assessment and Plan: Assessment: 46-year-old lady with chronic immunosuppression secondary to underlying mixed connective tissue disease admitted with acute hypoxic respiratory failure with COVID-19 and Serratia pneumonia, further complicated by C diff colitis, and Plan: Neuro: No acute issues. Cardiac: No acute issues. Underlying diastolic dysfunction. Pulmonary: Acute hypoxic respiratory failure secondary to COVID-19 ARDS and Serratia pneumonia requiring ventilatory support. Extubated on 12/05/2021 in a.m. requiring re-intubation on 12/05/2021 around 10:00 p.m. secondary to severe anxiety with hypoxia. Continue to titrate of supplemental oxygen as tolerated. Renal: No acute issues. Endo: No acute issues. GI: C diff, continue on Xifaxan. ID: COVID-19, continue baricitinib and dexamethasone. Serratia pneumonia, continue ceftriaxone. Heme/Onc: No acute issues. Psych: No acute issues. Miscellaneous: No acute issues. Underlying mixed connective tissue disease. Prophylaxis: Apixaban Diet: tube feeding Critical care time spent: 45 minutes Quality Stroke Does the patient have a stroke diagnosis?: No VTE Prior VTE?: No VTE Risk Level:: Medical - moderate - high VTE Device Contraindication: Treatment Not Indicated VTE Drug Contraindication: N/A - Med Ordered
--- NOTE | 2021-12-06 14:23 | MHC.CM.PN ---
Pt was not able to tolerate extubation and required emergent re intubation. concerned that pt may require a trach and peg for shelter recovery. If this occurs, pt will need to transfer to [facility] after procedure. CM to discuss this option with pt's HCP, Hafsa hallman MD feels this may be a consideration. Original d/c plan was for a return to home with VNA and existing [employer] services vs [facility]
[2021-12-06] MEDS: Cisatracurium Besylate 20 MG/10 ML VIAL IVPUSH (20:09)
--- NOTE | 2021-12-06 23:46 | PC.NURSE ---
Patient desat to 80's on 50%. Attempted to increase fio2 to 70% with no affect - Increased o2 to 100%. Attempted to suctioned. Viridiana E [employer] DIRECT[employer] called to bedside - ordered nimbex 1x dose - 20mg given at 2008. Medicated w/ good affect - O2sat increased to high 90's. Patient able to be repositioned. Sedated w/ prop, fent, & precedex. Attempted to wean levophed - unable at during this shift 7p-11p.
[2021-12-07] VITALS (28 sets, daily range): BP systolic 97–154; BP diastolic 47–82; PULSE 47–62; RESP 15–24; TEMP 34.2–38.2; O2SAT 89–99; BMI 21.7
[2021-12-07] MEDS: Midazolam HCl/PF 2 MG/2 ML VIAL 4 MG IVPUSH (00:22)
[2021-12-07] MEDS: dexmedeTOMIDidine HCL/NS 400 MCG/100 ML INFUS..BTL 21.15 MCG IVCONT ×6 (00:22→21:03)
[2021-12-07] MEDS: propofoL 1,000 MG/100 ML VIAL 16.92 MG IVCONT ×4 (03:35→18:41)
[2021-12-07] MEDS: fentaNYL citrate/NS 1,000 MCG/100 ML PLAST..BAG 20 MCG IVCONT ×4 (03:36→19:29)
[2021-12-07] MEDS: Levothyroxine Sodium 175 MCG TABLET PO (05:18)
[2021-12-07] MEDS: Chlorhexidine Gluc Oral Rinse 15 ML MOUTHWASH BUCCAL ×3 (05:20→21:03)
[2021-12-07 05:34] LABS: VBG HCO3 32 mmol/L (22-26); VBG pCO2 42 mmHg; VBG pH 7.48 (7.32-7.43); VBG pO2 51 mmHg
[2021-12-07 05:37] LABS: MANUAL DIFF FLAG NO
[2021-12-07 05:44] LABS: Basophils Percent Auto 0.3 % (0-2); Eosinophils Absolute Auto 0.9 X10*3/uL (0.0-0.4); Eosinophils Percent Auto 8.5 % (0-4); Hematocrit 36.1 % (37.0-47.0); Imm Gran Abs Auto 0.06 X10*3/uL (0.00-0.03); Imm Gran Pct Auto 0.6 % (0.0-0.4); Lymphocytes Absolute Auto 2.5 X10*3/uL (1.2-4.9); Lymphocytes Percent Auto 23.5 % (20-40); Mean Corpuscular HGB Conc 27.7 g/dl (31.0-35.0); Mean Platelet Volume 9.9 fL (9.4-12.3); Monocytes Absolute Auto 0.5 X10*3/uL (0.1-1.2); Monocytes Percent Auto 4.5 % (2-11); Neutrophils Absolute Auto 6.6 x10*3/uL (2.0-8.3); Neutrophils Percent Auto 62.6 % (45-73); Platelet Count 428 X10*3/uL (160-400); Red Blood Count 4.35 X10*6/uL (4.20-5.50); Red Cell Distribution Width 15.6 % (11.0-16.0); Venous Blood Gas Refer to POC result; White Blood Count 10.6 X10*3/uL (4.8-10.8)
[2021-12-07 06:00] LABS: Alanine Aminotransferase 30 U/L (0-31); Alkaline Phosphatase 162 U/L (39-117); Anion Gap 12 (12-20); Aspartate Amino Transferase 20 U/L (5-31); Bilirubin Total 0.9 mg/dL (0.0-1.0); Blood Urea Nitrogen 30 mg/dL (9-16); Calcium 9.7 mg/dL (8.4-10.2); Carbon Dioxide 31 mmol/L (22-29); Chloride 106 mmol/L (96-108); Creatinine Clr Calc Pharmacy 84.7; Estimated Glomerular Filt Rate > 60; Glucose Random 125 mg/dL (60-115); Magnesium 2.1 mg/dL (1.6-2.6); Phosphorus 3.4 mg/dL (2.7-4.5); Potassium 3.7 mmol/L (3.3-5.1); Sodium 145 mmol/L (135-145); Total Protein 6.7 g/dL (6.5-8.0)
[2021-12-07] MEDS: cefTRIAXone sodium 1 GM in 0.9 % Sodium Chloride 50 ML IV (07:55)
[2021-12-07] MEDS: dexAMETHasone sod phosphate 4 MG/ML VIAL 6 MG IVPUSH (07:56)
[2021-12-07] MEDS: Apixaban 5 MG TABLET PO ×2 (07:56→20:06)
[2021-12-07] MEDS: rifAXIMin 550 MG TABLET PO ×2 (07:56→14:09)
--- NOTE | 2021-12-07 12:29 | PM.CCPN ---
Subjective Subjective Date of Service: 12/07/21 Interval History: 46-year-old lady with underlying mixed connective tissue disease on prednisone on Plaquenil, with prior history of Severe, hypothyroidism, peripheral arterial disease, respiratory failure requiring tracheostomy with later reversal, COVID positive on 11/25/2021 admitted on 11/27/2021 with COVID-19 ARDS and Serratia pneumonia superinfection requiring intubation and ventilatory support, further complicated by C diff colitis. Extubated 12/05/2021 in a.m. and required re-intubation at approximately 10:00 p.m. secondary to hypoxia. No events overnight. FiO2 requirements are improving. Critical Care Time (minutes): 45 Physical Exam Vital Signs: Vital Signs: Last Vital Signs Temp 98.6 F 12/07/21 12:00 Pulse 54 12/07/21 12:00 Resp 20 12/07/21 12:00 BP 106/56 L 12/07/21 12:00 Pulse Ox 93 12/07/21 12:00 Oxygen Flow Rate 4 11/25/21 07:42 BMI result Body Mass Index 21.7 Const: General: no acute distress and other (Sedated on the vent, arousable with sedation vacation) Eyes: Sclerae: sclerae normal EOM: EOMs intact bilaterally Neck: Neck: Yes no lymphadenopathy, Yes trachea midline and Yes supple Resp: Auscultation: clear to auscultation bilaterally Cardio: Rate: regular rate Rhythm: regular rhythm Heart sounds: no gallops, no murmurs and no rubs GI: Palpation (GI): Soft to palpation and Other GI palpation findings present ( Nontender) Auscultation: normal bowel sounds Extrem: General: No clubbing, No cyanosis and Yes pedal edema (Trace bilateral) Objective Data Labs CBC & Chem 7: 12/07/21 05:13 12/07/21 05:13 Labs: Laboratory Results - last 24 hr 12/07/21 12/07/21 12/07/21 05:13 05:13 05:28 WBC 10.6 RBC 4.35 Hgb 10.0 L Hct 36.1 L MCV 83.0 MCH 23.0 L MCHC 27.7 L RDW 15.6 Plt Count 428 H MPV 9.9 Immature Gran % (Auto) 0.6 H Neut % (Auto) 62.6 Lymph % (Auto) 23.5 [place] % (Auto) 4.5 Eos % (Auto) 8.5 H Baso % (Auto) 0.3 Lymph # (Auto) 2.5 [place] # (Auto) 0.5 Eos # (Auto) 0.9 H Baso # (Auto) 0.0 Abs Immat Gran (auto) 0.06 H Absolute Neuts (auto) 6.6 Absolute Nucleated RBC 0.000 Nucleated RBC % (auto) 0.0 VBG pH 7.48 H VBG pCO2 42 VBG pO2 51 VBG HCO3 32 H VBG O2 Saturation 78.0 VBG Base Excess 8.0 Sodium 145 Potassium 3.7 Chloride 106 Carbon Dioxide 31 H Anion Gap 12 BUN 30 H Creatinine 0.67 Estim Creat Clear Calc 84.7 Estimated GFR > 60 Random Glucose 125 H Calcium 9.7 D Phosphorus 3.4 Magnesium 2.1 Total Bilirubin 0.9 AST 20 D ALT 30 Alkaline Phosphatase 162 H D Total Protein 6.7 Albumin 4.0 Microbiology Microbiology Results: Microbiology 12/02/21 15:46 Sputum - Suctioned Gram Stain - Final 12/02/21 15:46 Sputum - Suctioned Sputum Culture - Final Serratia marcescens 11/28/21 17:15 Blood - Venous Blood Culture - Final No growth after 5 days. 11/28/21 17:15 Blood - Venous Blood Culture - Final No growth after 5 days. 11/28/21 17:59 Sputum - Induced Gram Stain - Final 11/28/21 17:59 Sputum - Induced Sputum Culture - Final Gram negative leanna 11/25/21 08:56 Blood - Venous Blood Culture - Final No growth after 5 days. 11/25/21 08:22 Blood - Venous Blood Culture - Final No growth after 5 days. 11/28/21 17:59 Urine Catheterized - Lara Catheter Urine Culture - Final No growth. 11/27/21 Unknown Urine clean catch - Urine [place] Urine Culture - Final No growth. 11/27/21 19:04 Sputum - Induced Gram Stain - Final 11/27/21 19:04 Sputum - Induced Sputum Culture - Final Serratia marcescens Progress Note: A&P Assessment and plan (1) Severe anxiety with panic: Status: Acute (2) Acute respiratory distress syndrome (ARDS) due to COVID-19 virus: Status: Acute (3) C. difficile colitis: Status: Acute (4) Secondary bacterial pneumonia: Status: Acute (5) Immunosuppression due to chronic steroid use: Status: Acute (6) Mixed connective tissue disease: Status: Acute (7) Acute hypoxemic respiratory failure due to COVID-19: Status: Acute Assessment and Plan: Assessment: 46-year-old lady with chronic immunosuppression secondary to underlying mixed connective tissue disease admitted with acute hypoxic respiratory failure with COVID-19 and Serratia pneumonia, further complicated by C diff colitis, and Plan: Neuro: No acute issues. Cardiac: No acute issues. Underlying diastolic dysfunction. Pulmonary: Acute hypoxic respiratory failure secondary to COVID-19 ARDS and Serratia pneumonia requiring ventilatory support. Extubated on 12/05/2021 in a.m. requiring re-intubation on 12/05/2021 around 10:00 p.m. secondary to severe anxiety with hypoxia. FiO2 requirements are improving. Continue to titrate off ventilatory support as tolerated. May require tracheostomy. Renal: No acute issues. Endo: No acute issues. GI: C diff, continue on Xifaxan. ID: COVID-19, continue baricitinib and dexamethasone. Serratia pneumonia, continue ceftriaxone. Heme/Onc: No acute issues. Psych: No acute issues. Miscellaneous: No acute issues. Underlying mixed connective tissue disease. Prophylaxis: Apixaban Diet: tube feeding Critical care time spent: 45 minutes Quality Stroke Does the patient have a stroke diagnosis?: No VTE Prior VTE?: No VTE Risk Level:: Medical - moderate - high VTE Device Contraindication: Treatment Not Indicated VTE Drug Contraindication: N/A - Med Ordered
[2021-12-08] VITALS (31 sets, daily range): BP systolic 93–162; BP diastolic 41–82; PULSE 51–98; RESP 17–23; TEMP 33.9–38; O2SAT 84–97; BMI 22.1
[2021-12-08] MEDS: dexmedeTOMIDidine HCL/NS 400 MCG/100 ML INFUS..BTL 21.15 MCG IVCONT ×7 (01:01→23:46)
[2021-12-08] MEDS: propofoL 1,000 MG/100 ML VIAL 10.15 MG IVCONT (01:01)
[2021-12-08] MEDS: Midazolam HCl/PF 2 MG/2 ML VIAL 4 MG IVPUSH ×4 (01:02→18:35)
[2021-12-08] MEDS: fentaNYL citrate/NS 1,000 MCG/100 ML PLAST..BAG 17.5 MCG IVCONT (01:04)
[2021-12-08 02:01] LABS: Glucose, Whole Blood 103 mg/dL (60-115)
[2021-12-08 05:37] LABS: VBG Base Excess 5.1 mmol/L; VBG HCO3 29 mmol/L (22-26); VBG pCO2 40 mmHg; VBG pH 7.46 (7.32-7.43); VBG pO2 51 mmHg
[2021-12-08 05:40] LABS: MANUAL DIFF FLAG NO
[2021-12-08] MEDS: fentaNYL citrate/NS 1,000 MCG/100 ML PLAST..BAG 20 MCG IVCONT ×4 (05:41→20:13)
[2021-12-08 05:52] LABS: Basophils Percent Auto 0.2 % (0-2); Eosinophils Absolute Auto 0.8 X10*3/uL (0.0-0.4); Hematocrit 35.7 % (37.0-47.0); Hemoglobin 10.2 g/dl (12.0-16.0); Imm Gran Abs Auto 0.05 X10*3/uL (0.00-0.03); Imm Gran Pct Auto 0.5 % (0.0-0.4); Lymphocytes Absolute Auto 2.1 X10*3/uL (1.2-4.9); Lymphocytes Percent Auto 21.4 % (20-40); Mean Corpuscular HGB Conc 28.6 g/dl (31.0-35.0); Mean Corpuscular Hemoglobin 23.4 pg (27.0-33.0); Mean Corpuscular Volume 81.9 fL (80.0-98.0); Mean Platelet Volume 9.5 fL (9.4-12.3); Monocytes Absolute Auto 0.6 X10*3/uL (0.1-1.2); Monocytes Percent Auto 5.8 % (2-11); Neutrophils Absolute Auto 6.4 x10*3/uL (2.0-8.3); Neutrophils Percent Auto 64.1 % (45-73); Platelet Count 480 X10*3/uL (160-400); Red Blood Count 4.36 X10*6/uL (4.20-5.50); Red Cell Distribution Width 15.3 % (11.0-16.0); White Blood Count 9.9 X10*3/uL (4.8-10.8)
[2021-12-08 06:04] LABS: Albumin Level 3.9 g/dL (3.5-5.0); Anion Gap 13 (12-20); Blood Urea Nitrogen 29 mg/dL (9-16); Calcium 9.9 mg/dL (8.4-10.2); Carbon Dioxide 28 mmol/L (22-29); Chloride 107 mmol/L (96-108); Creatinine Clr Calc Pharmacy 88.7; Estimated Glomerular Filt Rate > 60; Glucose Random 122 mg/dL (60-115); Magnesium 2.1 mg/dL (1.6-2.6); Phosphorus 3.1 mg/dL (2.7-4.5); Potassium 4.3 mmol/L (3.3-5.1); Sodium 144 mmol/L (135-145)
[2021-12-08] MEDS: propofoL 1,000 MG/100 ML VIAL 16.92 MG IVCONT (06:30)
[2021-12-08] MEDS: Chlorhexidine Gluc Oral Rinse 15 ML MOUTHWASH BUCCAL ×3 (06:35→22:20)
[2021-12-08] MEDS: Levothyroxine Sodium 175 MCG TABLET PO (06:35)
[2021-12-08 06:38] LABS: Venous Blood Gas Refer to POC result
[2021-12-08] MEDS: cefTRIAXone sodium 1 GM in 0.9 % Sodium Chloride 50 ML IV (08:03)
[2021-12-08] MEDS: Apixaban 5 MG TABLET PO ×2 (08:04→20:14)
[2021-12-08] MEDS: dexAMETHasone sod phosphate 4 MG/ML VIAL 6 MG IVPUSH (08:04)
--- NOTE | 2021-12-08 09:59 | MHC.CLN ---
F/U PT RECEIVING PROMOTE AT MAX GOAL RATE 35 ML/HR WITH 240 ML FREE WATER FLUSHES Q 8 HRS TO PROVIDE 840 KCALS (1287 KCALS WITH SEDATION; 24 KCALS/KG BASED ON CMW), 52.5 G PROTEIN (.98 G/KG BASED OM CMW), 1424 ML TOTAL WATER FROM FORMULA AND FLUSH (26.5 ML/KG BASED OM CMW) DISCUSSED AT ROUNDS; POSSIBLE EXTUBATION TODAY PER MD MONITOR TOLERANCE, RESIDUALS AND LYTES
[2021-12-08] MEDS: propofoL 1,000 MG/100 ML VIAL 6.77 MG IVCONT (10:51)
--- NOTE | 2021-12-08 11:08 | MHC.CM.PN ---
Patient currently intubated/vented in ICU. Per Dr Magdaleno, possible extubation today. Patient is from home with [employer]. Original d/c plan was to return home with new [place] [facility] referral. Patient may need physical therapy eval for home safety when medically stable. Continue to monitor for d/c needs.
--- NOTE | 2021-12-08 13:36 | P.PNCC_ITS ---
Subjective Subjective Date of Service: 12/08/21 Interval History: 46-year-old lady with underlying mixed connective tissue disease on prednisone on Plaquenil, with prior history of Severe, hypothyroidism, peripheral arterial disease, respiratory failure requiring tracheostomy with later reversal, COVID positive on 11/25/2021 admitted on 11/27/2021 with COVID-19 ARDS and Serratia pneumonia superinfection requiring intubation and ventilatory support, further complicated by C diff colitis. Extubated 12/05/2021 in a.m. and required re-intubation at approximately 10:00 p.m. secondary to hypoxia. No events overnight. Tolerating pressure support trial today. Critical Care Time (minutes): 60 Physical Exam Vital Signs: Vital Signs: Last Vital Signs Temp 98.6 F 12/08/21 13:00 Pulse 73 12/08/21 13:00 Resp 17 12/08/21 13:00 BP 110/64 12/08/21 13:00 Pulse Ox 96 12/08/21 13:00 Oxygen Flow Rate 4 11/25/21 07:42 BMI result Body Mass Index 22.1 Const: General: no acute distress, alert and awake Eyes: Sclerae: sclerae normal EOM: EOMs intact bilaterally Neck: Neck: Yes no lymphadenopathy, Yes trachea midline and Yes supple Resp: Auscultation: clear to auscultation bilaterally Cardio: Rate: regular rate Rhythm: regular rhythm Heart sounds: no gallops, no murmurs and no rubs GI: Palpation (GI): Soft to palpation and Other GI palpation findings present ( Nontender) Auscultation: normal bowel sounds Extrem: General: Yes no pedal edema, No clubbing and No cyanosis Objective Data Labs CBC & Chem 7: 12/08/21 05:30 12/08/21 05:30 Labs: Laboratory Results - last 24 hr 12/08/21 12/08/21 12/08/21 01:32 05:30 05:30 WBC 9.9 RBC 4.36 Hgb 10.2 L Hct 35.7 L MCV 81.9 MCH 23.4 L MCHC 28.6 L RDW 15.3 Plt Count 480 H MPV 9.5 Immature Gran % (Auto) 0.5 H Neut % (Auto) 64.1 Lymph % (Auto) 21.4 [place] % (Auto) 5.8 Eos % (Auto) 8.0 H Baso % (Auto) 0.2 Lymph # (Auto) 2.1 [place] # (Auto) 0.6 Eos # (Auto) 0.8 H Baso # (Auto) 0.0 Abs Immat Gran (auto) 0.05 H Absolute Neuts (auto) 6.4 Absolute Nucleated RBC 0.000 Nucleated RBC % (auto) 0.0 VBG pH VBG pCO2 VBG pO2 VBG HCO3 VBG O2 Saturation VBG Base Excess Sodium 144 Potassium 4.3 Chloride 107 Carbon Dioxide 28 Anion Gap 13 BUN 29 H Creatinine 0.64 Estim Creat Clear Calc 88.7 Estimated GFR > 60 POC Glucose 103 Random Glucose 122 H Calcium 9.9 Phosphorus 3.1 Magnesium 2.1 Albumin 3.9 12/08/21 05:30 WBC RBC Hgb Hct MCV MCH MCHC RDW Plt Count MPV Immature Gran % (Auto) Neut % (Auto) Lymph % (Auto) [place] % (Auto) Eos % (Auto) Baso % (Auto) Lymph # (Auto) [place] # (Auto) Eos # (Auto) Baso # (Auto) Abs Immat Gran (auto) Absolute Neuts (auto) Absolute Nucleated RBC Nucleated RBC % (auto) VBG pH 7.46 H VBG pCO2 40 VBG pO2 51 VBG HCO3 29 H VBG O2 Saturation 78.0 VBG Base Excess 5.1 Sodium Potassium Chloride Carbon Dioxide Anion Gap BUN Creatinine Estim Creat Clear Calc Estimated GFR POC Glucose Random Glucose Calcium Phosphorus Magnesium Albumin Microbiology Microbiology Results: Microbiology 12/02/21 15:46 Sputum - Suctioned Gram Stain - Final 12/02/21 15:46 Sputum - Suctioned Sputum Culture - Final Serratia marcescens 11/28/21 17:15 Blood - Venous Blood Culture - Final No growth after 5 days. 11/28/21 17:15 Blood - Venous Blood Culture - Final No growth after 5 days. 11/28/21 17:59 Sputum - Induced Gram Stain - Final 11/28/21 17:59 Sputum - Induced Sputum Culture - Final Gram negative leanna 11/25/21 08:56 Blood - Venous Blood Culture - Final No growth after 5 days. 11/25/21 08:22 Blood - Venous Blood Culture - Final No growth after 5 days. 11/28/21 17:59 Urine Catheterized - Lara Catheter Urine Culture - Final No growth. 11/27/21 Unknown Urine clean catch - Urine [place] Urine Culture - Final No growth. 11/27/21 19:04 Sputum - Induced Gram Stain - Final 11/27/21 19:04 Sputum - Induced Sputum Culture - Final Serratia marcescens Progress Note: A&P Assessment and plan (1) Severe anxiety with panic: Status: Acute (2) Acute respiratory distress syndrome (ARDS) due to COVID-19 virus: Status: Acute (3) C. difficile colitis: Status: Acute (4) Secondary bacterial pneumonia: Status: Acute (5) Immunosuppression due to chronic steroid use: Status: Acute (6) Mixed connective tissue disease: Status: Acute (7) Acute hypoxemic respiratory failure due to COVID-19: Status: Acute Assessment and Plan: Assessment: 46-year-old lady with chronic immunosuppression secondary to underlying mixed connective tissue disease admitted with acute hypoxic respiratory failure with COVID-19 and Serratia pneumonia, further complicated by C diff colitis, and Plan: Neuro: No acute issues. Cardiac: No acute issues. Underlying diastolic dysfunction. Pulmonary: Acute hypoxic respiratory failure secondary to COVID-19 ARDS and Serratia pneumonia requiring ventilatory support. Extubated on 12/05/2021 in a.m. requiring re-intubation on 12/05/2021 around 10:00 p.m. secondary to severe anxiety with hypoxia. FiO2 requirements are improving. Continue to titrate off ventilatory support as tolerated. Tolerating pressure support trial today. Renal: No acute issues. Endo: No acute issues. GI: C diff, continue on Xifaxan. ID: COVID-19, continue baricitinib and dexamethasone. Serratia pneumonia, continue ceftriaxone. Heme/Onc: No acute issues. Psych: No acute issues. Miscellaneous: No acute issues. Underlying mixed connective tissue disease. Prophylaxis: Apixaban Diet: tube feeding Critical care time spent: 60 minutes Quality Stroke Does the patient have a stroke diagnosis?: No VTE Prior VTE?: No VTE Risk Level:: Medical - moderate - high VTE Device Contraindication: Treatment Not Indicated VTE Drug Contraindication: N/A - Med Ordered
[2021-12-09] VITALS (28 sets, daily range): BP systolic 98–155; BP diastolic 48–97; PULSE 55–88; RESP 15–26; TEMP 33.9–37.9; O2SAT 91–98; BMI 21.8
[2021-12-09] MEDS: fentaNYL citrate/NS 1,000 MCG/100 ML PLAST..BAG 20 MCG IVCONT ×2 (01:04→05:50)
[2021-12-09] MEDS: dexmedeTOMIDidine HCL/NS 400 MCG/100 ML INFUS..BTL 21.15 MCG IVCONT ×2 (04:06→08:27)
[2021-12-09 05:34] LABS: VBG Base Excess 3.9 mmol/L; VBG HCO3 28 mmol/L (22-26); VBG pCO2 43 mmHg; VBG pH 7.42 (7.32-7.43); VBG pO2 41 mmHg
[2021-12-09 05:35] LABS: Venous Blood Gas Refer to POC result
[2021-12-09] MEDS: Chlorhexidine Gluc Oral Rinse 15 ML MOUTHWASH BUCCAL (05:49)
[2021-12-09] MEDS: Levothyroxine Sodium 175 MCG TABLET PO (05:50)
[2021-12-09 06:00] LABS: MANUAL DIFF FLAG NO
[2021-12-09 06:04] LABS: Basophils Percent Auto 0.2 % (0-2); Eosinophils Absolute Auto 0.5 X10*3/uL (0.0-0.4); Eosinophils Percent Auto 5.9 % (0-4); Hematocrit 34.4 % (37.0-47.0); Hemoglobin 9.9 g/dl (12.0-16.0); Imm Gran Abs Auto 0.07 X10*3/uL (0.00-0.03); Imm Gran Pct Auto 0.8 % (0.0-0.4); Lymphocytes Absolute Auto 1.5 X10*3/uL (1.2-4.9); Lymphocytes Percent Auto 17.5 % (20-40); Mean Corpuscular HGB Conc 28.8 g/dl (31.0-35.0); Mean Corpuscular Hemoglobin 23.9 pg (27.0-33.0); Mean Corpuscular Volume 82.9 fL (80.0-98.0); Mean Platelet Volume 9.6 fL (9.4-12.3); Monocytes Absolute Auto 0.5 X10*3/uL (0.1-1.2); Monocytes Percent Auto 5.9 % (2-11); Neutrophils Percent Auto 69.7 % (45-73); Platelet Count 329 X10*3/uL (160-400); Red Blood Count 4.15 X10*6/uL (4.20-5.50); Red Cell Distribution Width 15.2 % (11.0-16.0); White Blood Count 8.6 X10*3/uL (4.8-10.8)
[2021-12-09 06:24] LABS: Albumin Level 3.7 g/dL (3.5-5.0); Anion Gap 11 (12-20); Blood Urea Nitrogen 31 mg/dL (9-16); Calcium 9.7 mg/dL (8.4-10.2); Carbon Dioxide 28 mmol/L (22-29); Chloride 108 mmol/L (96-108); Creatinine Clr Calc Pharmacy 88.7; Estimated Glomerular Filt Rate > 60; Glucose Random 114 mg/dL (60-115); Magnesium 2.3 mg/dL (1.6-2.6); Potassium 4.1 mmol/L (3.3-5.1); Sodium 143 mmol/L (135-145)
[2021-12-09] MEDS: cefTRIAXone sodium 1 GM in 0.9 % Sodium Chloride 50 ML IV (08:24)
[2021-12-09] MEDS: Apixaban 5 MG TABLET PO ×2 (08:24→21:25)
[2021-12-09] MEDS: dexAMETHasone sod phosphate 4 MG/ML VIAL 6 MG IVPUSH (08:24)
[2021-12-09] MEDS: Furosemide 40 MG/4 ML VIAL IVPUSH (09:39)
[2021-12-09] MEDS: LORazepam 2 MG/ML VIAL 4 MG IVPUSH (10:19)
[2021-12-09] MEDS: fentaNYL citrate/NS 1,000 MCG/100 ML PLAST..BAG 17.5 MCG IVCONT (10:37)
--- NOTE | 2021-12-09 11:16 | P.PNCC_ITS ---
Subjective Subjective Date of Service: 12/09/21 Interval History: 46-year-old lady with underlying mixed connective tissue disease on prednisone on Plaquenil, with prior history of Severe, hypothyroidism, peripheral arterial disease, respiratory failure requiring tracheostomy with later reversal, COVID positive on 11/25/2021 admitted on 11/27/2021 with COVID-19 ARDS and Serratia pneumonia superinfection requiring intubation and ventilatory support, further complicated by C diff colitis. Extubated 12/05/2021 in a.m. and required re-intubation at approximately 10:00 p.m. secondary to hypoxia. No events overnight. Extubated this a.m. Critical Care Time (minutes): 45 Physical Exam Vital Signs: Vital Signs: Last Vital Signs Temp 100.0 F 12/09/21 11:00 Pulse 68 12/09/21 11:00 Resp 20 12/09/21 11:00 BP 112/58 L 12/09/21 11:00 Pulse Ox 98 12/09/21 11:00 Oxygen Flow Rate 4 11/25/21 07:42 BMI result Body Mass Index 21.8 Const: General: no acute distress, alert and awake Eyes: Sclerae: sclerae normal EOM: EOMs intact bilaterally Neck: Neck: Yes no lymphadenopathy, Yes trachea midline and Yes supple Resp: Effort & Inspection: normal respiratory effort and no respiratory distress Auscultation: crackles (Bibasilar) Cardio: Rate: regular rate Rhythm: regular rhythm Heart sounds: no gallops, no murmurs and no rubs GI: Palpation (GI): Soft to palpation and Other GI palpation findings present ( Nontender) Auscultation: normal bowel sounds Extrem: General: Yes no pedal edema, No clubbing and No cyanosis Objective Data Labs CBC & Chem 7: 12/09/21 05:25 12/09/21 05:25 Labs: Laboratory Results - last 24 hr 12/09/21 12/09/21 12/09/21 05:25 05:25 05:28 WBC 8.6 RBC 4.15 L Hgb 9.9 L Hct 34.4 L MCV 82.9 MCH 23.9 L MCHC 28.8 L RDW 15.2 Plt Count 329 D MPV 9.6 Immature Gran % (Auto) 0.8 H Neut % (Auto) 69.7 Lymph % (Auto) 17.5 L [place] % (Auto) 5.9 Eos % (Auto) 5.9 H Baso % (Auto) 0.2 Lymph # (Auto) 1.5 [place] # (Auto) 0.5 Eos # (Auto) 0.5 H Baso # (Auto) 0.0 Abs Immat Gran (auto) 0.07 H Absolute Neuts (auto) 6.0 Absolute Nucleated RBC 0.000 Nucleated RBC % (auto) 0.0 VBG pH 7.42 VBG pCO2 43 VBG pO2 41 VBG HCO3 28 H VBG O2 Saturation 63.0 VBG Base Excess 3.9 Sodium 143 Potassium 4.1 Chloride 108 Carbon Dioxide 28 Anion Gap 11 L BUN 31 H Creatinine 0.64 Estim Creat Clear Calc 88.7 Estimated GFR > 60 Random Glucose 114 Calcium 9.7 Phosphorus 3.0 Magnesium 2.3 Albumin 3.7 Microbiology Microbiology Results: Microbiology 12/02/21 15:46 Sputum - Suctioned Gram Stain - Final 12/02/21 15:46 Sputum - Suctioned Sputum Culture - Final Serratia marcescens 11/28/21 17:15 Blood - Venous Blood Culture - Final No growth after 5 days. 11/28/21 17:15 Blood - Venous Blood Culture - Final No growth after 5 days. 11/28/21 17:59 Sputum - Induced Gram Stain - Final 11/28/21 17:59 Sputum - Induced Sputum Culture - Final Gram negative leanna 11/25/21 08:56 Blood - Venous Blood Culture - Final No growth after 5 days. 11/25/21 08:22 Blood - Venous Blood Culture - Final No growth after 5 days. 11/28/21 17:59 Urine Catheterized - Lara Catheter Urine Culture - Final No growth. 11/27/21 Unknown Urine clean catch - Urine [place] Urine Culture - Final No growth. 11/27/21 19:04 Sputum - Induced Gram Stain - Final 11/27/21 19:04 Sputum - Induced Sputum Culture - Final Serratia marcescens Progress Note: A&P Assessment and plan (1) Severe anxiety with panic: Status: Acute (2) Acute respiratory distress syndrome (ARDS) due to COVID-19 virus: Status: Acute (3) C. difficile colitis: Status: Acute (4) Secondary bacterial pneumonia: Status: Acute (5) Immunosuppression due to chronic steroid use: Status: Acute (6) Mixed connective tissue disease: Status: Acute (7) Acute hypoxemic respiratory failure due to COVID-19: Status: Acute Assessment and Plan: Assessment: 46-year-old lady with chronic immunosuppression secondary to underlying mixed connective tissue disease admitted with acute hypoxic respiratory failure with COVID-19 and Serratia pneumonia, further complicated by C diff colitis, and Plan: Neuro: Underlying severe anxiety requiring two sedative drips, continue to titrate off as tolerated. Cardiac: No acute issues. Underlying diastolic dysfunction. Pulmonary: Acute hypoxic respiratory failure secondary to COVID-19 ARDS and Serratia pneumonia. Extubated on 12/05/2021 in a.m. requiring re-intubation on 12/05/2021 around 10:00 p.m. secondary to severe anxiety with hypoxia. FiO2 requirements are improving. Extubated this a.m.. Continue to titrate of supplemental oxygen as tolerated. Renal: No acute issues. Endo: No acute issues. GI: C diff, continue on Xifaxan. ID: COVID-19, continue baricitinib and dexamethasone. Serratia pneumonia, continue ceftriaxone. Heme/Onc: No acute issues. Psych: No acute issues. Miscellaneous: No acute issues. Underlying mixed connective tissue disease. Prophylaxis: Apixaban Diet: Pending swallow evaluation Critical care time spent: 45 minutes Quality Stroke Does the patient have a stroke diagnosis?: No VTE Prior VTE?: No VTE Risk Level:: Medical - moderate - high VTE Device Contraindication: Treatment Not Indicated VTE Drug Contraindication: N/A - Med Ordered
[2021-12-09 12:21] LABS: VBG Base Excess 6.4 mmol/L; VBG HCO3 30 mmol/L (22-26); VBG pCO2 42 mmHg; VBG pH 7.47 (7.32-7.43); VBG pO2 40 mmHg
[2021-12-09] MEDS: dexmedeTOMIDidine HCL/NS 400 MCG/100 ML INFUS..BTL 14.1 MCG IVCONT (13:47)
[2021-12-09 14:00] LABS: Venous Blood Gas Refer to POC result
[2021-12-09] MEDS: fentaNYL citrate/NS 1,000 MCG/100 ML PLAST..BAG 7.5 MCG IVCONT (19:16)
[2021-12-09] MEDS: dexmedeTOMIDidine HCL/NS 400 MCG/100 ML INFUS..BTL 9.87 MCG IVCONT (21:25)
[2021-12-10] VITALS (23 sets, daily range): BP systolic 138–184; BP diastolic 79–95; PULSE 71–95; RESP 16–32; TEMP 37.3–38; O2SAT 88–100; BMI 19.8
[2021-12-10] MEDS: LORazepam 2 MG/ML VIAL 4 MG IVPUSH ×3 (00:11→15:52)
[2021-12-10] MEDS: Levothyroxine Sodium 175 MCG TABLET PO (05:45)
[2021-12-10 06:11] LABS: MANUAL DIFF FLAG NO
[2021-12-10 06:17] LABS: Basophils Percent Auto 0.3 % (0-2); Eosinophils Absolute Auto 0.3 X10*3/uL (0.0-0.4); Eosinophils Percent Auto 3.7 % (0-4); Hematocrit 37.8 % (37.0-47.0); Hemoglobin 10.9 g/dl (12.0-16.0); Imm Gran Abs Auto 0.06 X10*3/uL (0.00-0.03); Imm Gran Pct Auto 0.6 % (0.0-0.4); Lymphocytes Absolute Auto 1.7 X10*3/uL (1.2-4.9); Lymphocytes Percent Auto 18.7 % (20-40); Mean Corpuscular HGB Conc 28.8 g/dl (31.0-35.0); Mean Corpuscular Hemoglobin 23.8 pg (27.0-33.0); Mean Corpuscular Volume 82.5 fL (80.0-98.0); Mean Platelet Volume 10.1 fL (9.4-12.3); Monocytes Absolute Auto 0.6 X10*3/uL (0.1-1.2); Monocytes Percent Auto 6.9 % (2-11); Neutrophils Absolute Auto 6.4 x10*3/uL (2.0-8.3); Neutrophils Percent Auto 69.8 % (45-73); Platelet Count 476 X10*3/uL (160-400); Red Blood Count 4.58 X10*6/uL (4.20-5.50); Red Cell Distribution Width 15.6 % (11.0-16.0); White Blood Count 9.2 X10*3/uL (4.8-10.8)
[2021-12-10 06:42] LABS: Albumin Level 4.2 g/dL (3.5-5.0); Anion Gap 15 (12-20); Blood Urea Nitrogen 34 mg/dL (9-16); Calcium 10.3 mg/dL (8.4-10.2); Carbon Dioxide 29 mmol/L (22-29); Chloride 105 mmol/L (96-108); Creatinine Clr Calc Pharmacy 81.9; Estimated Glomerular Filt Rate > 60; Glucose Random 93 mg/dL (60-115); Magnesium 2.3 mg/dL (1.6-2.6); Phosphorus 3.1 mg/dL (2.7-4.5); Potassium 3.8 mmol/L (3.3-5.1); Sodium 145 mmol/L (135-145)
[2021-12-10] MEDS: Apixaban 5 MG TABLET PO ×2 (07:55→20:10)
[2021-12-10] MEDS: cefTRIAXone sodium 1 GM in 0.9 % Sodium Chloride 50 ML IV (07:55)
[2021-12-10] MEDS: dexmedeTOMIDidine HCL/NS 400 MCG/100 ML INFUS..BTL 9.87 MCG IVCONT (08:25)
[2021-12-10] MEDS: fentaNYL 50 MCG PATCH.TD72 TRANSDERMA (10:45)
--- NOTE | 2021-12-10 11:11 | PM.CCPN ---
Subjective Subjective Date of Service: 12/10/21 Interval History: ICU day 14 for acute hypoxic respiratory failure, COVID-19, Serratia pneumonia, C diff, severe anxiety. 46-year-old lady with underlying mixed connective tissue disease on prednisone on Plaquenil, with prior history of severe anxiety, hypothyroidism, peripheral arterial disease, respiratory failure requiring tracheostomy with later reversal, COVID positive on 11/25/2021 admitted on 11/27/2021 with COVID-19 ARDS and Serratia pneumonia superinfection requiring intubation and ventilatory support, further complicated by C diff colitis. Extubated 12/05/2021 in a.m. and required re-intubation at approximately 10:00 p.m. secondary to hypoxia. Extubated on 12/09/2021, now being titrated off sedative drips. No events overnight. Critical Care Time (minutes): 45 Physical Exam Vital Signs: Vital Signs: Last Vital Signs Temp 99.9 F 12/10/21 09:00 Pulse 84 12/10/21 10:00 Resp 21 H 12/10/21 10:00 BP 138/84 12/10/21 10:00 Pulse Ox 90 L 12/10/21 10:00 Oxygen Flow Rate 4 11/25/21 07:42 BMI result Body Mass Index 19.8 Const: General: no acute distress, alert and awake Eyes: Sclerae: sclerae normal EOM: EOMs intact bilaterally Neck: Neck: Yes no lymphadenopathy, Yes trachea midline and Yes supple Resp: Effort & Inspection: normal respiratory effort and no respiratory distress Auscultation: clear to auscultation bilaterally Cardio: Rate: regular rate Rhythm: regular rhythm Heart sounds: no gallops, no murmurs and no rubs GI: Palpation (GI): Soft to palpation and Other GI palpation findings present ( Nontender) Auscultation: normal bowel sounds Extrem: General: Yes no pedal edema, No clubbing and No cyanosis Objective Data Labs CBC & Chem 7: 12/10/21 05:53 12/10/21 05:53 Labs: Laboratory Results - last 24 hr 12/09/21 12/10/21 12/10/21 12:13 05:53 05:53 WBC 9.2 RBC 4.58 Hgb 10.9 L Hct 37.8 MCV 82.5 MCH 23.8 L MCHC 28.8 L RDW 15.6 Plt Count 476 H D MPV 10.1 Immature Gran % (Auto) 0.6 H Neut % (Auto) 69.8 Lymph % (Auto) 18.7 L [place] % (Auto) 6.9 Eos % (Auto) 3.7 Baso % (Auto) 0.3 Lymph # (Auto) 1.7 [place] # (Auto) 0.6 Eos # (Auto) 0.3 Baso # (Auto) 0.0 Abs Immat Gran (auto) 0.06 H Absolute Neuts (auto) 6.4 Absolute Nucleated RBC 0.000 Nucleated RBC % (auto) 0.0 VBG pH 7.47 H VBG pCO2 42 VBG pO2 40 VBG HCO3 30 H VBG O2 Saturation 65.0 VBG Base Excess 6.4 Sodium 145 Potassium 3.8 Chloride 105 Carbon Dioxide 29 Anion Gap 15 BUN 34 H Creatinine 0.68 Estim Creat Clear Calc 81.9 Estimated GFR > 60 Random Glucose 93 Calcium 10.3 H D Phosphorus 3.1 Magnesium 2.3 Albumin 4.2 Microbiology Microbiology Results: Microbiology 12/02/21 15:46 Sputum - Suctioned Gram Stain - Final 12/02/21 15:46 Sputum - Suctioned Sputum Culture - Final Serratia marcescens 11/28/21 17:15 Blood - Venous Blood Culture - Final No growth after 5 days. 11/28/21 17:15 Blood - Venous Blood Culture - Final No growth after 5 days. 11/28/21 17:59 Sputum - Induced Gram Stain - Final 11/28/21 17:59 Sputum - Induced Sputum Culture - Final Gram negative leanna 11/25/21 08:56 Blood - Venous Blood Culture - Final No growth after 5 days. 11/25/21 08:22 Blood - Venous Blood Culture - Final No growth after 5 days. 11/28/21 17:59 Urine Catheterized - Lara Catheter Urine Culture - Final No growth. 11/27/21 Unknown Urine clean catch - Urine [place] Urine Culture - Final No growth. 11/27/21 19:04 Sputum - Induced Gram Stain - Final 11/27/21 19:04 Sputum - Induced Sputum Culture - Final Serratia marcescens Progress Note: A&P Assessment and plan (1) Severe anxiety with panic: Status: Acute (2) Acute respiratory distress syndrome (ARDS) due to COVID-19 virus: Status: Acute (3) C. difficile colitis: Status: Acute (4) Secondary bacterial pneumonia: Status: Acute (5) Immunosuppression due to chronic steroid use: Status: Acute (6) Mixed connective tissue disease: Status: Acute (7) Acute hypoxemic respiratory failure due to COVID-19: Status: Acute Assessment and Plan: Assessment: 46-year-old lady with chronic immunosuppression secondary to underlying mixed connective tissue disease admitted with acute hypoxic respiratory failure with COVID-19 and Serratia pneumonia, further complicated by C diff colitis, and Plan: Neuro: Underlying severe anxiety requiring two sedative drips, continue to titrate off as tolerated. Still requiring Precedex drip. Fentanyl drip changed to fentanyl patch. Cardiac: No acute issues. Underlying diastolic dysfunction. Pulmonary: Acute hypoxic respiratory failure secondary to COVID-19 ARDS and Serratia pneumonia. Extubated on 12/05/2021 in a.m. requiring re-intubation on 12/05/2021 around 10:00 p.m. secondary to severe anxiety with hypoxia. FiO2 requirements are improving. Extubated again on 12/09/2021. Continue to titrate of supplemental oxygen as tolerated. Renal: No acute issues. Endo: No acute issues. GI: C diff, continue on Xifaxan. ID: COVID-19, continue baricitinib, completed dexamethasone. Serratia pneumonia, completed ceftriaxone course. Heme/Onc: No acute issues. Psych: No acute issues. Miscellaneous: No acute issues. Underlying mixed connective tissue disease. Prophylaxis: Apixaban Diet: Regular Critical care time spent: 45 minutes Quality Stroke Does the patient have a stroke diagnosis?: No VTE Prior VTE?: No VTE Risk Level:: Medical - moderate - high VTE Device Contraindication: Treatment Not Indicated VTE Drug Contraindication: N/A - Med Ordered
[2021-12-10] MEDS: ondansetron HCL 4 MG/2 ML VIAL IVPUSH (11:34)
[2021-12-10] MEDS: Metoclopramide HCl 10 MG/2 ML VIAL IVPUSH (13:21)
[2021-12-10] MEDS: ondansetron HCL 4 MG/2 ML VIAL 8 MG IVPUSH (14:37)
[2021-12-10] MEDS: chlordiazePOXIDE HCl 25 MG CAPSULE PO (20:10)
[2021-12-10] MEDS: dexmedeTOMIDidine HCL/NS 400 MCG/100 ML INFUS..BTL 7.05 MCG IVCONT (20:10)
[2021-12-11] VITALS (23 sets, daily range): BP systolic 138–180; BP diastolic 75–95; PULSE 80–108; RESP 18–31; TEMP 37.3–38; O2SAT 88–100; BMI 19.8
[2021-12-11 04:13] LABS: VBG Base Excess 4.2 mmol/L; VBG HCO3 28 mmol/L (22-26); VBG pCO2 40 mmHg; VBG pH 7.45 (7.32-7.43); VBG pO2 42 mmHg
[2021-12-11 04:16] LABS: Venous Blood Gas Refer to POC result
[2021-12-11 04:32] LABS: MANUAL DIFF FLAG NO
[2021-12-11 04:33] LABS: Basophils Percent Auto 0.4 % (0-2); Eosinophils Absolute Auto 0.3 X10*3/uL (0.0-0.4); Eosinophils Percent Auto 3.6 % (0-4); Hematocrit 40.8 % (37.0-47.0); Hemoglobin 11.6 g/dl (12.0-16.0); Imm Gran Abs Auto 0.09 X10*3/uL (0.00-0.03); Lymphocytes Absolute Auto 1.9 X10*3/uL (1.2-4.9); Lymphocytes Percent Auto 20.5 % (20-40); Mean Corpuscular HGB Conc 28.4 g/dl (31.0-35.0); Mean Corpuscular Hemoglobin 23.3 pg (27.0-33.0); Mean Corpuscular Volume 81.9 fL (80.0-98.0); Mean Platelet Volume 9.5 fL (9.4-12.3); Monocytes Absolute Auto 0.7 X10*3/uL (0.1-1.2); Monocytes Percent Auto 7.9 % (2-11); Neutrophils Absolute Auto 6.1 x10*3/uL (2.0-8.3); Neutrophils Percent Auto 66.6 % (45-73); Platelet Count 526 X10*3/uL (160-400); Red Blood Count 4.98 X10*6/uL (4.20-5.50); Red Cell Distribution Width 15.5 % (11.0-16.0); White Blood Count 9.2 X10*3/uL (4.8-10.8)
[2021-12-11 04:52] LABS: Albumin Level 4.3 g/dL (3.5-5.0); Anion Gap 15 (12-20); Blood Urea Nitrogen 29 mg/dL (9-16); Calcium 10.4 mg/dL (8.4-10.2); Carbon Dioxide 27 mmol/L (22-29); Chloride 106 mmol/L (96-108); Creatinine Clr Calc Pharmacy 79.6; Estimated Glomerular Filt Rate > 60; Glucose Random 84 mg/dL (60-115); Magnesium 2.5 mg/dL (1.6-2.6); Phosphorus 3.8 mg/dL (2.7-4.5); Sodium 144 mmol/L (135-145)
[2021-12-11] MEDS: Levothyroxine Sodium 175 MCG TABLET PO (05:44)
[2021-12-11] MEDS: chlordiazePOXIDE HCl 25 MG CAPSULE PO ×2 (08:10→14:35)
[2021-12-11] MEDS: Apixaban 5 MG TABLET PO ×2 (08:10→21:56)
--- NOTE | 2021-12-11 11:05 | MHC.CLN ---
F/U PT IS MODERATELY MALNOURISHED PT WITH MILD DEPLETION OF SUBCUTANEOUS FAT AND MUSCLE MASS PT IS NOW EXTUBATED DIET RX: REGULAR-NSG REPORTS VERY POOR PO INTAKE RECOMMEND ADDING ENSURE BID TO PROVIDE 700KCALS, 40G PROTEIN MONITOR PO INTAKE CLOSELY SEE ALSO CLINICAL NUTRITION ASSESSMENT DATED 12/11/21
--- NOTE | 2021-12-11 13:33 | MHC.CM.PN ---
Pt off of ventilatory support and doing well. Very frail and deconditioned: PT eval order placed and broad STR referrals placed with COVID + Accepting sites: Pt is likely COVID recovered and previously had 2 vax'. Original d/c order was for a return to home with [employer] [facility] and significant other: CM to follow
--- NOTE | 2021-12-11 19:21 | P.PNCC_ITS ---
Subjective Subjective Date of Service: 12/11/21 Critical Care Time (minutes): 0 Comment: Ms. Rea was transferred to the ICU on Nov 27 with acute respiratory failure secondary to COVID pneumonia. The patient is a 46-year-old female with past medical history lupus and rheumatoid arthritis, on Plaquenil and chronic steroids; asthma/COPD; CVA; PVD; hypothyroidism; fibromyalgia; and chronic pain on opioids.? According to the patient, she?d been intubated three times previously for asthma/COPD.? She had previously undergone tracheostomy with later reversal.? She is on Eliquis, presumably bec of her stroke. The patient presented to the ED on November 25 complaining of shortness of breath and cough with purulent sputum.? Several days earlier, she had tested positive for COVID-19.? (My estimate of symptom onset date is on or about November 19.)? In the ED sat was 80s on room air.? Chest x-ray showed typical bilateral patchy airspace opacities.? CTPA showed moderate-severe COVID disease, no PE. ?She was admitted to Medicine for COVID pneumonia and treated in the usual fashion, including remdesivir x 5 days. Her oxygen requirement increased progressively, and on November 27 she was put on BiPAP, then intubated later that day and tx to the ICU where she was given a course of baricitinib.? During her ICU course, stool came back positive for CDiff; sputum grew a sensitive Serratia. ?CDiff was treated with rifaximin.? The Serratia pneumonia was treated with ceftriaxone.? ?She was extubated on December 05, but had to be reintubated that night.? She was extubated Dec 09.? Her fentanyl drip was changed to a fentanyl patch.? Precedex was changed to Librium. Today, she?s awake but sluggish and very calm.? She answers questions slowly, but more less appropriately.? She told me this is the 2nd time she had COVID.? Mildly tachypneic with respiratory rate of I 20s, but without WOB.? Sat on 5L NC is 92-94%.? Central venous blood gas this morning showed 7.45/40/+4. ?HR 96, SR, BP 160/88.? Tmax 100.4.? No JVD at 30 degrees.? Normal expiratory phase.? Abdomen is benign.? No peripheral edema. LABORATORY DATA:? As below.? Notably, BUN/creatinine are down to 29/0.7. IMPRESSION: 1. Underlying mixed connective tissue disease on immunosuppressive.? I will restart her Plaquenil, prednisone, and sulfasalazine. 2. Underlying asthma/COPD.? Continue bronchodilators. 3, Underlying peripheral vascular disease, status post CVA.? Continue Eliquis. 4. Underlying fibromyalgia and chronic pain, on chronic opioids. ?I will restart her tramadol 50 mg Q8 and make it prn. ?Restart her Prozac. 5. COVID pneumonia.? Resolving. 6. Acute hypoxemic respiratory failure.? 2? to above and underlying chronic lung disease. ?Improving, with FiO2 down to 3-5 L nasal cannula. ?I wouldn?t rule out the possibility that she might need further treatment for work of breathing, including opioids and/or NIV.? She is not out of the salomon yet. 7. Agitation management.? She was transitioned from Precedex to Librium.? Given her hypoanimation, I?ll d/c the Librium.? She might well benefit from Prfovigil if she remains sluggish tomorrow. 8. ID.? No current indication for any abx. 9. Nutrtion.? Taking in limited po?s, bec she doesn?t have an apetite.? We have her on ensure supplements. Stable for transfer to [facility] [place] [facility].? I will sign out to the hospitalists. Time:? [id number]. Physical Exam Vital Signs: Vital Signs: Last Vital Signs Temp 99.9 F 12/11/21 19:00 Pulse 94 12/11/21 19:00 Resp 27 H 12/11/21 19:00 BP 165/78 H 12/11/21 19:00 Pulse Ox 92 12/11/21 19:00 Oxygen Flow Rate 4 11/25/21 07:42 BMI result Body Mass Index 19.8 Objective Data Labs CBC & Chem 7: 12/11/21 04:08 12/11/21 04:08 Labs: Laboratory Results - last 24 hr 12/11/21 12/11/21 12/11/21 04:07 04:08 04:08 WBC 9.2 RBC 4.98 Hgb 11.6 L Hct 40.8 MCV 81.9 MCH 23.3 L MCHC 28.4 L RDW 15.5 Plt Count 526 H MPV 9.5 Immature Gran % (Auto) 1.0 H Neut % (Auto) 66.6 Lymph % (Auto) 20.5 [place] % (Auto) 7.9 Eos % (Auto) 3.6 Baso % (Auto) 0.4 Lymph # (Auto) 1.9 [place] # (Auto) 0.7 Eos # (Auto) 0.3 Baso # (Auto) 0.0 Abs Immat Gran (auto) 0.09 H Absolute Neuts (auto) 6.1 Absolute Nucleated RBC 0.000 Nucleated RBC % (auto) 0.0 VBG pH 7.45 H VBG pCO2 40 VBG pO2 42 VBG HCO3 28 H VBG O2 Saturation 64.0 VBG Base Excess 4.2 Sodium 144 Potassium 4.0 Chloride 106 Carbon Dioxide 27 Anion Gap 15 BUN 29 H Creatinine 0.70 Estim Creat Clear Calc 79.6 Estimated GFR > 60 Random Glucose 84 Calcium 10.4 H Phosphorus 3.8 Magnesium 2.5 Albumin 4.3 Microbiology Microbiology Results: Microbiology 12/02/21 15:46 Sputum - Suctioned Gram Stain - Final 12/02/21 15:46 Sputum - Suctioned Sputum Culture - Final Serratia marcescens 11/28/21 17:15 Blood - Venous Blood Culture - Final No growth after 5 days. 11/28/21 17:15 Blood - Venous Blood Culture - Final No growth after 5 days. 11/28/21 17:59 Sputum - Induced Gram Stain - Final 11/28/21 17:59 Sputum - Induced Sputum Culture - Final Gram negative leanna 11/25/21 08:56 Blood - Venous Blood Culture - Final No growth after 5 days. 11/25/21 08:22 Blood - Venous Blood Culture - Final No growth after 5 days. 11/28/21 17:59 Urine Catheterized - Lara Catheter Urine Culture - Final No growth. 11/27/21 Unknown Urine clean catch - Urine [place] Urine Culture - Final No growth. 11/27/21 19:04 Sputum - Induced Gram Stain - Final 11/27/21 19:04 Sputum - Induced Sputum Culture - Final Serratia marcescens Quality Stroke Does the patient have a stroke diagnosis?: No VTE Prior VTE?: No VTE Risk Level:: Medical - moderate - high VTE Device Contraindication: Treatment Not Indicated VTE Drug Contraindication: N/A - Med Ordered
[2021-12-11] MEDS: Metoclopramide HCl 10 MG/2 ML VIAL IVPUSH (20:16)
[2021-12-11] MEDS: Hydroxychloroquine Sulfate 200 MG TABLET PO (21:56)
[2021-12-11] MEDS: Pravastatin Sodium 40 MG TABLET PO (21:56)
[2021-12-11] MEDS: predniSONE 5 MG TABLET PO (21:56)
[2021-12-11] MEDS: sulfaSALAzine 500 MG TABLET PO (21:56)
[2021-12-12 04:00] VITALS: BP 164/97; PULSE 89; RESP 18; TEMP 37.2; O2SAT 92
[2021-12-12] MEDS: Levothyroxine Sodium 175 MCG TABLET PO (05:27)
[2021-12-12 07:58] VITALS: BP 148/83; PULSE 105; RESP 20; TEMP 37.5; O2SAT 92
--- NOTE | 2021-12-12 08:13 | P.PNIM_ITS ---
Subjective Subjective Date of Service: 12/12/21 Interval History: copd /covid pneumonia Review of Systems still sob with talkin speak few senstenes only -know her name , just nodes her head when ask questions - shortness of breath similar as yesterday , has some occasional cough no fever or chills. Physical Exam Vital Signs: Vital Signs: Last Vital Signs Temp 99.5 F 12/12/21 07:58 Pulse 105 H 12/12/21 07:58 Resp 20 12/12/21 07:58 BP 148/83 H 12/12/21 07:58 Pulse Ox 92 12/12/21 07:58 Oxygen Flow Rate 4 11/25/21 07:42 BMI result Body Mass Index 19.8 Physical exam: Appearance: Alert.? Oriented X2,? not in distress.? Eyes: Pupils equal, round and reactive to light.? Sclera nonicteric.? ENT: Pharynx normal.? Moist mucous membranes. cvs: rrr, [id number] res: air entry diminshed at bases , has scattered rhonchii b/l abd: no rebound or guarding ,nt, bs present. ext pulses present , no cyanosis. neuro: axo3 , nonfocal. Objective Data Active Medications Albuterol Sulfate (Albuterol Sulfate (0.083%) 2.5 Mg/3 Ml Vial.Neb) 2.5 mg INHALE Q6H PRN PRN Reason: Shortness Of Breath Or Wheezing Apixaban (Apixaban 5 Mg Tablet) 5 mg PO BID [facility] Last Admin: 12/11/21 21:56 Dose: 5 mg Documented by: NERY Fentanyl (Fentanyl 50 Mcg Patch.Td72) 50 mcg TRANSDERMA Q72H [facility] Last Admin: 12/10/21 10:45 Dose: 50 mcg Documented by: SATHISH Fluoxetine HCl (Fluoxetine Hcl 20 Mg Capsule) 40 mg PO DAILY [facility] Hydroxychloroquine Sulfate (Hydroxychloroquine Sulfate 200 Mg Tablet) 200 mg PO BID [facility] Last Admin: 12/11/21 21:56 Dose: 200 mg Documented by: NERY Levothyroxine Sodium (Levothyroxine Sodium 175 Mcg Tablet) 175 mcg PO DAILY@0630 [facility] Last Admin: 12/12/21 05:27 Dose: 175 mcg Documented by: MAGNOLIA Metoclopramide HCl (Metoclopramide Hcl 10 Mg/2 Ml Vial) 10 mg IVPUSH Q6H PRN PRN Reason: Nausea Last Admin: 12/11/21 20:16 Dose: 10 mg Documented by: NERY Modafinil (Modafinil 100 Mg Tablet) 100 mg PO ONCE ONE Stop: 12/12/21 08:12 Multivitamins/Vitamin C (Multivitamin Tablet) 1 tab PO DAILY [facility] Ondansetron HCl (Ondansetron Hcl 4 Mg/2 Ml Vial) 4 mg IVPUSH Q6H PRN PRN Reason: Nausea Last Admin: 12/10/21 11:34 Dose: 4 mg Documented by: SATHISH Pravastatin Sodium (Pravastatin Sodium 40 Mg Tablet) 40 mg PO BEDTIME [facility] Last Admin: 12/11/21 21:56 Dose: 40 mg Documented by: NERY Prednisone (Prednisone 5 Mg Tablet) 5 mg PO DAILY [facility] Last Admin: 12/11/21 21:56 Dose: 5 mg Documented by: NERY Sulfasalazine (Sulfasalazine 500 Mg Tablet) 500 mg PO BID [facility] Last Admin: 12/11/21 21:56 Dose: 500 mg Documented by: NERY Tramadol HCl (Tramadol Hcl 50 Mg Tablet) 50 mg PO Q8H PRN PRN Reason: Pain, Moderate (Pain Scale 4-6 Labs CBC & Chem 7: 12/11/21 04:08 12/11/21 04:08 Assessment and Plan (1) Acute respiratory distress syndrome (ARDS) due to COVID-19 virus: Status: Acute (2) Acute exacerbation of chronic obstructive airways disease: Status: Acute Assessment and Plan: 1. Underlying mixed connective tissue disease on immunosuppressive.? continue Plaquenil, prednisone, and sulfasalazine. ?2. Underlying asthma/COPD.? Continue bronchodilators. ?3, Underlying peripheral vascular disease, status post CVA.? Continue Eliquis. ?4. Underlying fibromyalgia and chronic pain, on chronic opioids. on tramadol 50 mg Q8 and make it prn. ?Restart her Prozac. ?5. COVID pneumonia.? Resolving. ?6. Acute hypoxemic respiratory failure.? 2? to above and underlying chronic lung disease. ?Improving, with FiO2 -still around 5 liter oxygen,. ?I wouldn?t rule out the possibility that she might need further treatment for work of breathing, including opioids and/or NIV.? She is not out of the [place] yet. ?7. Agitation management.? She was transitioned from Precedex to Librium.? Given her hypoanimation, off Librium.? She might well benefit from Prfovigil if she remains sluggish tomorrow. ?8. ID.? No current indication for any abx. ?9. Nutrtion.? Taking in limited po?s, bec she doesn?t have an apetite.? We have her on ensure supplements. Quality Stroke Does the patient have a stroke diagnosis?: No VTE Prior VTE?: No VTE Risk Level:: Medical - moderate - high VTE Device Contraindication: Treatment Not Indicated VTE Drug Contraindication: N/A - Med Ordered
[2021-12-12] MEDS: sulfaSALAzine 500 MG TABLET PO ×2 (09:55→20:39)
[2021-12-12] MEDS: Famotidine 20 MG TABLET PO (09:55)
[2021-12-12] MEDS: FLUoxetine HCl 20 MG CAPSULE 40 MG PO (09:55)
[2021-12-12] MEDS: Hydroxychloroquine Sulfate 200 MG TABLET PO ×2 (09:55→20:39)
[2021-12-12] MEDS: Multivitamin TABLET 1 TAB PO (09:55)
[2021-12-12] MEDS: predniSONE 5 MG TABLET PO (09:56)
[2021-12-12] MEDS: Apixaban 5 MG TABLET PO ×2 (09:56→20:39)
[2021-12-12] MEDS: modafiniL 100 MG TABLET PO (10:01)
[2021-12-12 11:25] VITALS: BP 167/89; PULSE 91; RESP 20; TEMP 37.3; O2SAT 92
[2021-12-12 15:26] VITALS: BP 160/90; PULSE 88; RESP 18; TEMP 36.6; O2SAT 98
[2021-12-12 19:15] VITALS: BP 152/86; PULSE 92; RESP 18; TEMP 37; O2SAT 97
[2021-12-12] MEDS: Pravastatin Sodium 40 MG TABLET PO (20:39)
[2021-12-12 23:26] VITALS: BP 158/84; PULSE 88; RESP 16; TEMP 36.6; O2SAT 98
[2021-12-13] VITALS (7 sets, daily range): BP systolic 137–172; BP diastolic 78–88; PULSE 84–110; RESP 16–20; TEMP 36.3–37.7; O2SAT 92–96
[2021-12-13] MEDS: Levothyroxine Sodium 175 MCG TABLET PO (06:31)
--- NOTE | 2021-12-13 08:01 | P.PNIM_ITS ---
Subjective Subjective Date of Service: 12/13/21 Interval History: copd, covid pneumonia Review of Systems still sob and gernally weak speak only her name encouraged for po intake Physical Exam Verdana 4l Vital Signs: Verdana 4d Verdana 4d Vital Signs: Verdana 4d Verdana 4Bd Last Vital Signs Verdana 4d Soft Mud Molder New 4d Soft Mud Molder New 4d Temp 99.0 F 12/13/21 07:48 Soft Mud Molder New 4d Pulse 103 H 12/13/21 07:48 Soft Mud Molder New 4d Resp 20 12/13/21 07:48 BP 169/88 H 12/13/21 07:48 Pulse Ox 94 12/13/21 07:48 Oxygen Flow Rate 4 11/25/21 07:42 BMI result Body Mass Index 19.8 Appearance: Alert.? Oriented X1-2,? not in distress.? Eyes: Pupils equal, round and reactive to light.? Sclera nonicteric.? ENT: Pharynx normal.? Moist mucous membranes. cvs: rrr, [id number] res: air entry diminshed at bases , has scattered rhonchii b/l abd: no rebound or guarding ,nt, bs present. ext pulses present , no cyanosis. neuro: axo3 , nonfocal. Objective Data Active Medications Albuterol Sulfate (Albuterol Sulfate (0.083%) 2.5 Mg/3 Ml Vial.Neb) 2.5 mg INHALE Q6H PRN PRN Reason: Shortness Of Breath Or Wheezing Apixaban (Apixaban 5 Mg Tablet) 5 mg PO BID [facility] Last Admin: 12/12/21 20:39 Dose: 5 mg Documented by: NERY Famotidine (Famotidine 20 Mg Tablet) 20 mg PO DAILY [facility] Last Admin: 12/12/21 09:55 Dose: 20 mg Documented by: LEONID Fentanyl (Fentanyl 50 Mcg Patch.Td72) 50 mcg TRANSDERMA Q72H [facility] Last Admin: 12/10/21 10:45 Dose: 50 mcg Documented by: SATHISH Fluoxetine HCl (Fluoxetine Hcl 20 Mg Capsule) 40 mg PO DAILY [facility] Last Admin: 12/12/21 09:55 Dose: 40 mg Documented by: LEONID Hydroxychloroquine Sulfate (Hydroxychloroquine Sulfate 200 Mg Tablet) 200 mg PO BID [facility] Last Admin: 12/12/21 20:39 Dose: 200 mg Documented by: NERY Levothyroxine Sodium (Levothyroxine Sodium 175 Mcg Tablet) 175 mcg PO DAILY@0630 [facility] Last Admin: 12/13/21 06:31 Dose: 175 mcg Documented by: ROBERT Metoclopramide HCl (Metoclopramide Hcl 10 Mg/2 Ml Vial) 10 mg IVPUSH Q6H PRN PRN Reason: Nausea Last Admin: 12/11/21 20:16 Dose: 10 mg Documented by: NERY Multivitamins/Vitamin C (Multivitamin Tablet) 1 tab PO DAILY [facility] Last Admin: 12/12/21 09:55 Dose: 1 tab Documented by: LEONID Ondansetron HCl (Ondansetron Hcl 4 Mg/2 Ml Vial) 4 mg IVPUSH Q6H PRN PRN Reason: Nausea Last Admin: 12/10/21 11:34 Dose: 4 mg Documented by: SATHISH Pravastatin Sodium (Pravastatin Sodium 40 Mg Tablet) 40 mg PO BEDTIME [facility] Last Admin: 12/12/21 20:39 Dose: 40 mg Documented by: NERY Prednisone (Prednisone 20 Mg Tablet) 20 mg PO DAILY [facility] Sulfasalazine (Sulfasalazine 500 Mg Tablet) 500 mg PO BID [facility] Last Admin: 12/12/21 20:39 Dose: 500 mg Documented by: NERY Tramadol HCl (Tramadol Hcl 50 Mg Tablet) 50 mg PO Q8H PRN PRN Reason: Pain, Moderate (Pain Scale 4-6 Labs CBC & Chem 7: 12/11/21 04:08 12/11/21 04:08 Assessment and Plan (1) Acute hypoxemic respiratory failure due to COVID-19: Status: Acute (2) Acute exacerbation of chronic obstructive airways disease: Status: Acute Plan 1. Underlying mixed connective tissue disease on immunosuppressive.? continue Plaquenil, po prednisone, and sulfasalazine. ?2. Underlying asthma/COPD.? Continue bronchodilators, po prednisone. ?3, Underlying peripheral vascular disease, status post CVA.? Continue Eliquis. ?4. Underlying fibromyalgia and chronic pain, on chronic opioids. on tramadol 50 mg Q8 and make it prn. ?Restart her Prozac. ?5. COVID pneumonia.? Resolving. ?6. Acute hypoxemic respiratory failure.? 2? to above and underlying chronic lung disease. ?Improving, with FiO2 -still around 5 liter oxygen,. ?I wouldn?t rule out the possibility that she might need further treatment for work of breathing, including opioids and/or NIV. ?7. Agitation management.? She was transitioned from Precedex to Librium.? Given her hypoanimation, off? Librium.? She might well benefit from Prfovigil if she remains sluggish tomorrow. 8. Nutrtion.? Taking in limited po?s, bec she doesn?t have an apetite.? We have her on ensure supplements. Pt/ot Quality Stroke Does the patient have a stroke diagnosis?: No VTE Prior VTE?: No VTE Risk Level:: Medical - moderate - high VTE Device Contraindication: Treatment Not Indicated VTE Drug Contraindication: N/A - Med Ordered
[2021-12-13] MEDS: Multivitamin TABLET 1 TAB PO (10:16)
[2021-12-13] MEDS: FLUoxetine HCl 20 MG CAPSULE 40 MG PO (10:16)
[2021-12-13] MEDS: predniSONE 20 MG TABLET PO (10:16)
[2021-12-13] MEDS: Famotidine 20 MG TABLET PO (10:19)
[2021-12-13] MEDS: sulfaSALAzine 500 MG TABLET PO ×2 (10:19→20:02)
[2021-12-13] MEDS: Hydroxychloroquine Sulfate 200 MG TABLET PO ×2 (10:19→19:59)
[2021-12-13] MEDS: Apixaban 5 MG TABLET PO ×2 (10:19→19:58)
[2021-12-13] MEDS: fentaNYL 50 MCG PATCH.TD72 TRANSDERMA (10:21)
--- NOTE | 2021-12-13 11:17 | MHC.CM.PN ---
Per ROUNDS discussion, Patient is not yet medically cleared for dc (very weak, still hypoxic, Steroids increased, 5LO2); SNF/STR is the goal for dc and CM will follow for possible need to adjust the dc plan.
--- NOTE | 2021-12-13 14:19 | MHC.CLN ---
F/U PT IS MODERATELY MALNOURISHED. DIET=REGULAR, ENSURE BID. SUPPLEMENT PROVIDES 700 KCALS, 40 G PROTEIN. CONTINUES WITH LIMITED PO. MONITOR PO INTAKE CLOSELY.
[2021-12-13] MEDS: Pravastatin Sodium 40 MG TABLET PO (20:01)
[2021-12-14 03:01] VITALS: BP 169/80; PULSE 82; RESP 18; TEMP 36.7; O2SAT 97
[2021-12-14] MEDS: Levothyroxine Sodium 175 MCG TABLET PO (05:29)
[2021-12-14 07:14] LABS: Anion Gap 13 (12-20); Blood Urea Nitrogen 34 mg/dL (9-16); Calcium 10.5 mg/dL (8.4-10.2); Carbon Dioxide 26 mmol/L (22-29); Chloride 105 mmol/L (96-108); Creatinine Clr Calc Pharmacy 75.3; Estimated Glomerular Filt Rate > 60; Glucose Random 90 mg/dL (60-115); Potassium 4.1 mmol/L (3.3-5.1); Sodium 140 mmol/L (135-145)
[2021-12-14 08:20] VITALS: BP 144/78; PULSE 84; RESP 20; TEMP 37.4; O2SAT 92
[2021-12-14] MEDS: predniSONE 20 MG TABLET PO (08:48)
[2021-12-14] MEDS: Famotidine 20 MG TABLET PO (08:48)
[2021-12-14] MEDS: sulfaSALAzine 500 MG TABLET PO ×2 (08:48→20:05)
[2021-12-14] MEDS: FLUoxetine HCl 20 MG CAPSULE 40 MG PO (08:48)
[2021-12-14] MEDS: Apixaban 5 MG TABLET PO ×2 (08:48→20:05)
[2021-12-14] MEDS: Hydroxychloroquine Sulfate 200 MG TABLET PO ×2 (08:48→20:05)
[2021-12-14] MEDS: Multivitamin TABLET 1 TAB PO (08:48)
--- NOTE | 2021-12-14 09:12 | P.PNIM_ITS ---
Subjective Subjective Date of Service: 12/14/21 Interval History: copd excerebation /covid Review of Systems sob seems similar cough present denies any chest pain or abdominal pain or nausea or vomiting Physical Exam Verdana 4l Vital Signs: Verdana 4d Verdana 4d Vital Signs: Verdana 4d Verdana 4Bd Last Vital Signs Verdana 4d Canceling Machine Operator New 4d Canceling Machine Operator New 4d Temp 99.3 F 12/14/21 08:20 Canceling Machine Operator New 4d Pulse 84 12/14/21 08:20 Canceling Machine Operator New 4d Resp 20 12/14/21 08:20 BP 144/78 H 12/14/21 08:20 Pulse Ox 92 12/14/21 08:20 Oxygen Flow Rate 4 11/25/21 07:42 BMI result Body Mass Index 19.8 ?Appearance: Alert.? Oriented X2,? not in distress.? Eyes: Pupils equal, round and reactive to light.? Sclera nonicteric.? ENT: Pharynx normal.? Moist mucous membranes. cvs: rrr, [id number] res: air entry diminshed at bases , has scattered rhonchii b/l abd: no rebound or guarding ,nt, bs present. ext pulses present , no cyanosis. neuro: axo3 , nonfocal. Objective Data Active Medications Albuterol Sulfate (Albuterol Sulfate (0.083%) 2.5 Mg/3 Ml Vial.Neb) 2.5 mg INHALE Q6H PRN PRN Reason: Shortness Of Breath Or Wheezing Apixaban (Apixaban 5 Mg Tablet) 5 mg PO BID [facility] Last Admin: 12/14/21 08:48 Dose: 5 mg Documented by: GLENN Famotidine (Famotidine 20 Mg Tablet) 20 mg PO DAILY [facility] Last Admin: 12/14/21 08:48 Dose: 20 mg Documented by: GLENN Fentanyl (Fentanyl 50 Mcg Patch.Td72) 50 mcg TRANSDERMA Q72H [facility] Last Admin: 12/13/21 10:21 Dose: 50 mcg Documented by: DOBROB Fluoxetine HCl (Fluoxetine Hcl 20 Mg Capsule) 40 mg PO DAILY [facility] Last Admin: 12/14/21 08:48 Dose: 40 mg Documented by: GLENN Hydroxychloroquine Sulfate (Hydroxychloroquine Sulfate 200 Mg Tablet) 200 mg PO BID [facility] Last Admin: 12/14/21 08:48 Dose: 200 mg Documented by: GLENN Levothyroxine Sodium (Levothyroxine Sodium 175 Mcg Tablet) 175 mcg PO DAILY@0630 [facility] Last Admin: 12/14/21 05:29 Dose: 175 mcg Documented by: LILLI Metoclopramide HCl (Metoclopramide Hcl 10 Mg/2 Ml Vial) 10 mg IVPUSH Q6H PRN PRN Reason: Nausea Last Admin: 12/11/21 20:16 Dose: 10 mg Documented by: NERY Multivitamins/Vitamin C (Multivitamin Tablet) 1 tab PO DAILY [facility] Last Admin: 12/14/21 08:48 Dose: 1 tab Documented by: GLENN Ondansetron HCl (Ondansetron Hcl 4 Mg/2 Ml Vial) 4 mg IVPUSH Q6H PRN PRN Reason: Nausea Last Admin: 12/10/21 11:34 Dose: 4 mg Documented by: SATHISH Pravastatin Sodium (Pravastatin Sodium 40 Mg Tablet) 40 mg PO BEDTIME [facility] Last Admin: 12/13/21 20:01 Dose: 40 mg Documented by: LILLI Prednisone (Prednisone 20 Mg Tablet) 20 mg PO DAILY [facility] Last Admin: 12/14/21 08:48 Dose: 20 mg Documented by: GLENN Sulfasalazine (Sulfasalazine 500 Mg Tablet) 500 mg PO BID [facility] Last Admin: 12/14/21 08:48 Dose: 500 mg Documented by: GLENN Tramadol HCl (Tramadol Hcl 50 Mg Tablet) 50 mg PO Q8H PRN PRN Reason: Pain, Moderate (Pain Scale 4-6 Labs CBC & Chem 7: 12/11/21 04:08 12/14/21 06:20 Labs: Laboratory Results - last 24 hr 12/14/21 06:20 Anion Gap 13 Estim Creat Clear Calc 75.3 Estimated GFR > 60 Random Glucose 90 Calcium 10.5 H Assessment and Plan (1) Acute respiratory distress syndrome (ARDS) due to COVID-19 virus: Status: Acute Plan 1. Underlying mixed connective tissue disease on immunosuppressive.? continue Plaquenil, po prednisone, and sulfasalazine. ?2. Underlying asthma/COPD.? Continue bronchodilators, po prednisone. ?3, Underlying peripheral vascular disease, status post CVA.? Continue Eliquis. ?4. Underlying fibromyalgia and chronic pain, on chronic opioids. on tramadol 50 mg Q8 and make it prn. ?Restart her Prozac. provagil added. ?5. COVID pneumonia.?improving , continue oxygen supprt and prednisone.. ?6. Acute hypoxemic respiratory failure.? 2? to above and underlying chronic lung disease. ?Improving, with FiO2 -still around 4 liter oxygen,?I wouldn?t rule out the possibility that she might need further treatment for work of breathing, including opioids and/or NIV. ?7. Agitation intermittent : added home ativan 8. Nutrtion.? moderate malnutrition-po intaking slightly better, d/w staff in detail -keep her oob , encourage for po intake and hydration , We have her on ensure supplements. Pt/ot Quality Stroke Does the patient have a stroke diagnosis?: No VTE Prior VTE?: No VTE Risk Level:: Medical - moderate - high VTE Device Contraindication: Treatment Not Indicated VTE Drug Contraindication: N/A - Med Ordered
--- NOTE | 2021-12-14 09:19 | P.CDIC_ITS ---
CDI Concurrent Query Documentation Clarification: PHYSICIAN'S DOCUMENTATION REQUEST Date of Query: 12/14/21919 Patient Name: Emiliana Rea Admit Date: 11/25/21 Dear Doctor, A review of the medical record indicates additional documentation may be needed. Please review below and update the documentation accordingly. Verdana 4Bd Risk Factors/Clinical Indicators/Treatments Verdana 4d Nutrition notes 12/11 - pt is malnourished with BMI 19.8 Mild depletion of subcutaneous fat and muscle mass. Recommend adding Ensure BID to increase Kcals. ASPEN Criteria* Acute Illness Chronic Illness Verdana 3Bd C Non-Severe Verdana 3Bd Verdana 3Bd N Verdana 3Bd linical Verdana 2d ( Severe Verdan on-Severe Goldie Severe Verdan Characteristic 2 or more a 2d (2 or kailee 2d (2 or a 2d (2 or criteria more criteria more criteria more criteria present) present) present) present) Verdana 3Bd E Verdana 3d <7 <=50% for >=5 <75% for >=1 <=75% for >=1 nergy Intake 5% for >7 days days month month Verdana 3Bd W Verdana 3d eight Loss Verdana 3Bd Verdana 3d 1 >2% N/A N/A 1 week ? 2% Verdana 3Bd Verdana 3d 5 >5% 5% >5% 1 month % Verdana 3Bd Verdana 3d 7 >7.5% 7.5% >7.5% 3 months .5 % Verdana 3Bd Verdana 3d N N/A 10% >10% 6 months /A Verdana 3Bd Verdana 3d N N/A 20% >20% 1 year /A Verdana 3Bd B Verdana 3d M Moderate Mild Severe maria d Fat ild Verdana 3Bd M Verdana 3d M Moderate Mild Severe uscle Mass ild Verdana 3Bd F Verdana 3d M Moderate to Mild Severe luid ild Severe Accumulation Verdana 3Bd R Verdana 3d N Measurably N/A Measurably educed Certified Caregiver /A Reduced Reduced Strength *[facility] Hospitalist, 2017 If possible, please provide in your progress notes, additional specificity regarding the severity of the malnutrition using the above information: * Mild * Moderate * Severe * Other (please specify) * Unable to determine Use of terms such as suspected, likely, concern for, or probable (associated with a specific diagnosis that is being evaluated, monitored, or treated as if it exists) are acceptable and can be coded in the inpatient setting, when documented at the time of discharge. Thank you, Marci Steele [facility], CDIS Extension: [phone] Please use your independent medical judgment in providing your response. THIS QUERY IS PART OF THE PERMANENT MEDICAL RECORD Provider Response: Other Other Diagnosis: moderate malnutrition
--- NOTE | 2021-12-14 09:19 | MHC.CDI.CONC ---
CDI Concurrent Query Documentation Clarification: PHYSICIAN'S DOCUMENTATION REQUEST Date of Query: 12/14/21919 Patient Name: Emiliana Rea Admit Date: 11/25/21 Dear Doctor, A review of the medical record indicates additional documentation may be needed. Please review below and update the documentation accordingly. Risk Factors/Clinical Indicators/Treatments Nutrition notes 12/11 - pt is malnourished with BMI 19.8 Mild depletion of subcutaneous fat and muscle mass. Recommend adding Ensure BID to increase Kcals. ASPEN Criteria* Acute Illness Chronic Illness Clinical Characteristic Non-Severe (2 or more criteria present) Severe (2 or more criteria present) Non-Severe (2 or more criteria present) Severe (2 or more criteria present) Energy Intake <75% for >7 days <=50% for >=5 days <75% for >=1 month <=75% for >=1 month Weight Loss 1 week 1 ? 2% >2% N/A N/A 1 month 5% >5% 5% >5% 3 months 7.5 % >7.5% 7.5% >7.5% 6 months N/A N/A 10% >10% 1 year N/A N/A 20% >20% Body Fat Mild Moderate Mild Severe Muscle Mass Mild Moderate Mild Severe Fluid Accumulation Mild Moderate to Severe Mild Severe Reduced Acting Section Chief Strength N/A Measurably Reduced N/A Measurably Reduced *[facility] Hospitalist, 2017 If possible, please provide in your progress notes, additional specificity regarding the severity of the malnutrition using the above information: Mild Moderate Severe Other (please specify) Unable to determine Use of terms such as suspected, likely, concern for, or probable (associated with a specific diagnosis that is being evaluated, monitored, or treated as if it exists) are acceptable and can be coded in the inpatient setting, when documented at the time of discharge. Thank you, Marci Steele [facility], CDIS Extension: [phone] Please use your independent medical judgment in providing your response. THIS QUERY IS PART OF THE PERMANENT MEDICAL RECORD Provider Response: Other Other Diagnosis: moderate malnutrition
[2021-12-14 10:41] VITALS: BP 144/78; PULSE 84; O2SAT 92
[2021-12-14] MEDS: modafiniL 100 MG TABLET 200 MG PO (12:47)
[2021-12-14] MEDS: LORazepam 1 MG TABLET PO (12:48)
[2021-12-14 15:14] VITALS: BP 132/76; PULSE 103; RESP 14; TEMP 36.8; O2SAT 94
[2021-12-14 19:11] VITALS: BP 127/77; PULSE 102; RESP 15; TEMP 35.8; O2SAT 84
[2021-12-14] MEDS: Pravastatin Sodium 40 MG TABLET PO (20:05)
[2021-12-14 23:26] VITALS: BP 131/77; PULSE 89; RESP 18; TEMP 36.4; O2SAT 97
[2021-12-15] VITALS (7 sets, daily range): BP systolic 133–151; BP diastolic 68–84; PULSE 85–98; RESP 17–18; TEMP 36.7–37.1; O2SAT 95–99
[2021-12-15] MEDS: Levothyroxine Sodium 175 MCG TABLET PO (05:31)
--- NOTE | 2021-12-15 07:58 | P.PNIM_ITS ---
Subjective Subjective Date of Service: 12/15/21 Interval History: hypoxia , poor oral inatke , generalised weak Review of Systems still sob has dry cough Denies any chest pain or fever or chills or nausea or vomiting. Physical Exam Verdana 4l Vital Signs: Verdana 4d Verdana 4d Vital Signs: Verdana 4d Verdana 4Bd Last Vital Signs Verdana 4d Press Tender Long Goods New 4d Press Tender Long Goods New 4d Temp 98.1 F 12/15/21 02:57 Press Tender Long Goods New 4d Pulse 97 12/15/21 02:57 Press Tender Long Goods New 4d Resp 18 12/15/21 02:57 BP 138/74 12/15/21 02:57 Pulse Ox 95 12/15/21 02:57 Oxygen Flow Rate 4 11/25/21 07:42 BMI result Body Mass Index 19.8 Appearance: Alert.? Oriented X2,? not in distress.? Eyes: Pupils equal, round and reactive to light.? Sclera nonicteric.? ENT: Pharynx normal.? Moist mucous membranes. cvs: rrr, [id number] res: air entry diminshed at bases , has scattered rhonchii b/l abd: no rebound or guarding ,nt, bs present. ext pulses present , no cyanosis. neuro: axo3 , nonfocal. Objective Data Active Medications Albuterol Sulfate (Albuterol Sulfate (0.083%) 2.5 Mg/3 Ml Vial.Neb) 2.5 mg INHALE Q6H PRN PRN Reason: Shortness Of Breath Or Wheezing Apixaban (Apixaban 5 Mg Tablet) 5 mg PO BID [facility] Last Admin: 12/14/21 20:05 Dose: 5 mg Documented by: MATEO Famotidine (Famotidine 20 Mg Tablet) 20 mg PO DAILY [facility] Last Admin: 12/14/21 08:48 Dose: 20 mg Documented by: GLENN Fentanyl (Fentanyl 50 Mcg Patch.Td72) 50 mcg TRANSDERMA Q72H [facility] Last Admin: 12/13/21 10:21 Dose: 50 mcg Documented by: BROPradeep Fluoxetine HCl (Fluoxetine Hcl 20 Mg Capsule) 40 mg PO DAILY [facility] Last Admin: 12/14/21 08:48 Dose: 40 mg Documented by: GLENN Hydroxychloroquine Sulfate (Hydroxychloroquine Sulfate 200 Mg Tablet) 200 mg PO BID [facility] Last Admin: 12/14/21 20:05 Dose: 200 mg Documented by: MATEO Levothyroxine Sodium (Levothyroxine Sodium 175 Mcg Tablet) 175 mcg PO DAILY@0630 [facility] Last Admin: 12/15/21 05:31 Dose: 175 mcg Documented by: MATEO Lorazepam (Lorazepam 1 Mg Tablet) 1 mg PO DAILY [facility] Metoclopramide HCl (Metoclopramide Hcl 10 Mg/2 Ml Vial) 10 mg IVPUSH Q6H PRN PRN Reason: Nausea Last Admin: 12/11/21 20:16 Dose: 10 mg Documented by: NERY Modafinil (Modafinil 100 Mg Tablet) 200 mg PO DAILY [facility] Stop: 12/16/21 09:01 Last Admin: 12/14/21 12:47 Dose: 200 mg Documented by: GLENN Multivitamins/Vitamin C (Multivitamin Tablet) 1 tab PO DAILY [facility] Last Admin: 12/14/21 08:48 Dose: 1 tab Documented by: GLENN Ondansetron HCl (Ondansetron Hcl 4 Mg/2 Ml Vial) 4 mg IVPUSH Q6H PRN PRN Reason: Nausea Last Admin: 12/10/21 11:34 Dose: 4 mg Documented by: SATHISH Pravastatin Sodium (Pravastatin Sodium 40 Mg Tablet) 40 mg PO BEDTIME [facility] Last Admin: 12/14/21 20:05 Dose: 40 mg Documented by: MATEO Prednisone (Prednisone 20 Mg Tablet) 20 mg PO DAILY [facility] Last Admin: 12/14/21 08:48 Dose: 20 mg Documented by: GLENN Sulfasalazine (Sulfasalazine 500 Mg Tablet) 500 mg PO BID [facility] Last Admin: 12/14/21 20:05 Dose: 500 mg Documented by: MATEO Tramadol HCl (Tramadol Hcl 50 Mg Tablet) 50 mg PO Q8H PRN PRN Reason: Pain, Moderate (Pain Scale 4-6 Labs CBC & Chem 7: 12/11/21 04:08 12/14/21 06:20 Assessment and Plan (1) Acute respiratory distress syndrome (ARDS) due to COVID-19 virus: Status: Acute Plan 1. Underlying mixed connective tissue disease on immunosuppressive.? continue Plaquenil, po prednisone, and sulfasalazine. ?2. Underlying asthma/COPD.? Continue bronchodilators, po prednisone. ?3, Underlying peripheral vascular disease, status post CVA.? Continue Eliquis. ?4. Underlying fibromyalgia and chronic pain, on chronic opioids. on tramadol 50 mg Q8 and make it prn. ?Restart her Prozac. provagil added. ?5. COVID pneumonia.?improving , continue oxygen demand seems improving and prednisone.. ?6. Acute hypoxemic respiratory failure.? 2? to above and underlying chronic lung disease. ?Improving, with FiO2 -still around 4 liter oxygen,?I wouldn?t rule out the possibility that she might need further treatment for work of breathing, including opioids and/or NIV. ?7. Agitation intermittent : added home ativan 8. Nutrtion.? moderate malnutrition-po intaking slightly better, d/w staff in detail -keep her oob , encourage for po intake and hydration , We have her on ensure supplements. Pt/ot Quality Stroke Does the patient have a stroke diagnosis?: No VTE Prior VTE?: No VTE Risk Level:: Medical - moderate - high VTE Device Contraindication: Treatment Not Indicated VTE Drug Contraindication: N/A - Med Ordered
[2021-12-15] MEDS: Multivitamin TABLET 1 TAB PO (10:14)
[2021-12-15] MEDS: Hydroxychloroquine Sulfate 200 MG TABLET PO ×2 (10:14→20:50)
[2021-12-15] MEDS: modafiniL 100 MG TABLET 200 MG PO (10:14)
[2021-12-15] MEDS: predniSONE 20 MG TABLET PO (10:15)
[2021-12-15] MEDS: FLUoxetine HCl 20 MG CAPSULE 40 MG PO (10:15)
[2021-12-15] MEDS: LORazepam 1 MG TABLET PO (10:15)
[2021-12-15] MEDS: Famotidine 20 MG TABLET PO (10:15)
[2021-12-15] MEDS: ondansetron HCL 4 MG/2 ML VIAL IVPUSH (10:29)
--- NOTE | 2021-12-15 14:27 | MHC.CLN ---
F/U PT IS MODERATELY MALNOURISHED. DIET=REGULAR, ENSURE BID. SUPPLEMENT PROVIDES 700 KCALS, 40 G PROTEIN. EXTUBATED 12/09. PO CONTINUES USUALLY POOR. DIET=REGULAR WITH ENSURE BID. SUPPLEMENT PROVIDES 700 KCAL, 40 G PROTEIN. MONITOR PO INTAKE CLOSELY.
[2021-12-15] MEDS: Metoclopramide HCl 10 MG/2 ML VIAL IVPUSH (15:34)
[2021-12-15] MEDS: sulfaSALAzine 500 MG TABLET PO (20:50)
[2021-12-15] MEDS: Pravastatin Sodium 40 MG TABLET PO (20:50)
[2021-12-15] MEDS: Apixaban 5 MG TABLET PO (20:50)
[2021-12-16 04:00] VITALS: BP 156/86; PULSE 88; RESP 17; TEMP 36.9; O2SAT 98
[2021-12-16] MEDS: Levothyroxine Sodium 175 MCG TABLET PO (06:23)
[2021-12-16 07:25] VITALS: BP 137/71; PULSE 89; RESP 18; TEMP 36.6; O2SAT 100
--- NOTE | 2021-12-16 08:08 | P.PNIM_ITS ---
Subjective Subjective Date of Service: 12/16/21 Interval History: hypoxia , covid inf. Review of Systems still sob , denies any chest pain seems generalised weak Physical Exam Verdana 4l Vital Signs: Verdana 4d Verdana 4d Vital Signs: Verdana 4d Verdana 4Bd Last Vital Signs Verdana 4d Roofing Superintendent New 4d Roofing Superintendent New 4d Temp 97.8 F 12/16/21 07:25 Roofing Superintendent New 4d Pulse 89 12/16/21 07:25 Roofing Superintendent New 4d Resp 18 12/16/21 07:25 BP 137/71 12/16/21 07:25 Pulse Ox 100 12/16/21 07:25 Oxygen Flow Rate 4 11/25/21 07:42 BMI result Body Mass Index 19.8 Appearance: Alert.? Oriented X2,? not in distress.? Eyes: Pupils equal, round and reactive to light.? Sclera nonicteric.? ENT: Pharynx normal.? Moist mucous membranes. cvs: rrr, [id number] res: air entry diminshed at bases , has scattered rhonchii b/l abd: no rebound or guarding ,nt, bs present. ext pulses present , no cyanosis. neuro: axo3 , nonfocal. Objective Data Active Medications Albuterol Sulfate (Albuterol Sulfate (0.083%) 2.5 Mg/3 Ml Vial.Neb) 2.5 mg INH CESIA Q6H PRN PRN Reason: Shortness Of Breath Or Wheezing Apixaban (Apixaban 5 Mg Tablet) 5 mg PO BID [facility] Last Admin: 12/15/21 20:50 Dose: 5 mg Documented by: JUAN ANTONIO Famotidine (Famotidine 20 Mg Tablet) 20 mg PO DAILY [facility] Last Admin: 12/15/21 10:15 Dose: 20 mg Documented by: GLENN Fentanyl (Fentanyl 50 Mcg Patch.Td72) 50 mcg TRANSDERMA Q72H [facility] Last Admin: 12/13/21 10:21 Dose: 50 mcg Documented by: DOBROPradeep Fluoxetine HCl (Fluoxetine Hcl 20 Mg Capsule) 40 mg PO DAILY [facility] Last Admin: 12/15/21 10:15 Dose: 40 mg Documented by: GLENN Hydroxychloroquine Sulfate (Hydroxychloroquine Sulfate 200 Mg Tablet) 200 mg PO BID [facility] Last Admin: 12/15/21 20:50 Dose: 200 mg Documented by: JUAN ANTONIO Promethazine HCl 6.25 mg/ (Sodium Chloride) 50.25 mls @ 201 mls/hr IV Q12H PRN PRN Reason: Nausea and Vomiting Last Infusion: 12/15/21 21:07 Dose: 0 mls/hr Documented by: JUAN ANTONIO Levothyroxine Sodium (Levothyroxine Sodium 175 Mcg Tablet) 175 mcg PO DAILY@0630 [facility] Last Admin: 12/16/21 06:23 Dose: 175 mcg Documented by: JUAN ANTONIO Lorazepam (Lorazepam 1 Mg Tablet) 1 mg PO DAILY [facility] Last Admin: 12/15/21 10:15 Dose: 1 mg Documented by: GLENN Metoclopramide HCl (Metoclopramide Hcl 10 Mg/2 Ml Vial) 10 mg IVPUSH Q6H PRN PRN Reason: Nausea Last Admin: 12/15/21 15:34 Dose: 10 mg Documented by: GLENN Modafinil (Modafinil 100 Mg Tablet) 200 mg PO DAILY [facility] Stop: 12/16/21 09:01 Last Admin: 12/15/21 10:14 Dose: 200 mg Documented by: GLENN Multivitamins/Vitamin C (Multivitamin Tablet) 1 tab PO DAILY [facility] Last Admin: 12/15/21 10:14 Dose: 1 tab Documented by: GLENN Ondansetron HCl (Ondansetron Hcl 4 Mg/2 Ml Vial) 4 mg IVPUSH Q6H PRN PRN Reason: Nausea Last Admin: 12/15/21 10:29 Dose: 4 mg Documented by: GLENN Pravastatin Sodium (Pravastatin Sodium 40 Mg Tablet) 40 mg PO BEDTIME [facility] Last Admin: 12/15/21 20:50 Dose: 40 mg Documented by: JUAN ANTONIO Prednisone (Prednisone 20 Mg Tablet) 20 mg PO DAILY [facility] Last Admin: 12/15/21 10:15 Dose: 20 mg Documented by: GLENN Sulfasalazine (Sulfasalazine 500 Mg Tablet) 500 mg PO BID [facility] Last Admin: 12/15/21 20:50 Dose: 500 mg Documented by: JUAN ANTONIO Tramadol HCl (Tramadol Hcl 50 Mg Tablet) 50 mg PO Q8H PRN PRN Reason: Pain, Moderate (Pain Scale 4-6 Labs CBC & Chem 7: 12/11/21 04:08 12/14/21 06:20 Assessment and Plan (1) Acute respiratory distress syndrome (ARDS) due to COVID-19 virus: Status: Acute (2) Acute hypoxemic respiratory failure due to COVID-19: Status: Acute Plan 1. Underlying mixed connective tissue disease on immunosuppressive.? ?continue Plaquenil, po prednisone, and sulfasalazine. ?2. Underlying asthma/COPD.? ?Continue bronchodilators, po prednisone. ?3, Underlying peripheral vascular disease, status post CVA.? Continue Eliquis. ?4. Underlying fibromyalgia and chronic pain, on chronic opioids. on tramadol 50 mg Q8 and make it prn. ?Restart her Prozac. provagil added. ?5. COVID pneumonia.?improving , continue oxygen demand seems improving and prednisone.. ?6. Acute hypoxemic respiratory failure.? 2? to above and underlying chronic lung disease. ?Improving, with FiO2 -still around 4 liter oxygen,?I wouldn?t rule out the possibility that she might need further treatment for work of [employer], including opioids and/or NIV. seems more awake porvagil day2. ?7. Agitation intermittent : hold ativan 8. Nutrtion.? moderate malnutrition-po intaking slightly better, d/w staff in detail -keep her oob , encourage for po intake and hydration? , We have her on ensure supplements. Pt/ot Quality Stroke Does the patient have a stroke diagnosis?: No VTE Prior VTE?: No VTE Risk Level:: Medical - moderate - high VTE Device Contraindication: Treatment Not Indicated VTE Drug Contraindication: N/A - Med Ordered
[2021-12-16] MEDS: Apixaban 5 MG TABLET PO ×2 (10:30→21:02)
[2021-12-16] MEDS: modafiniL 100 MG TABLET 200 MG PO (10:30)
[2021-12-16] MEDS: sulfaSALAzine 500 MG TABLET PO ×2 (10:30→21:02)
[2021-12-16] MEDS: Multivitamin TABLET 1 TAB PO (10:31)
[2021-12-16] MEDS: Hydroxychloroquine Sulfate 200 MG TABLET PO ×2 (10:31→21:02)
[2021-12-16] MEDS: fentaNYL 50 MCG PATCH.TD72 TRANSDERMA (10:31)
[2021-12-16] MEDS: Famotidine 20 MG TABLET PO (10:31)
[2021-12-16] MEDS: FLUoxetine HCl 20 MG CAPSULE 40 MG PO (10:31)
[2021-12-16] MEDS: predniSONE 20 MG TABLET PO (10:31)
[2021-12-16 11:17] VITALS: BP 132/77; PULSE 91; RESP 18; TEMP 36.6; O2SAT 94
[2021-12-16 15:19] VITALS: BP 128/80; PULSE 90; RESP 18; TEMP 36.6; O2SAT 94
[2021-12-16 19:31] VITALS: BP 134/81; PULSE 83; RESP 15; TEMP 36.6; O2SAT 99
[2021-12-16] MEDS: Pravastatin Sodium 40 MG TABLET PO (21:02)
[2021-12-16] MEDS: Acetaminophen 325 MG TABLET 650 MG PO (21:59)
[2021-12-17] VITALS (7 sets, daily range): BP systolic 126–143; BP diastolic 62–82; PULSE 69–97; RESP 16–18; TEMP 36.1–37.2; O2SAT 95–99
[2021-12-17] MEDS: Levothyroxine Sodium 175 MCG TABLET PO (05:59)
[2021-12-17 07:15] LABS: Anion Gap 12 (12-20); Blood Urea Nitrogen 27 mg/dL (9-16); Calcium 10.1 mg/dL (8.4-10.2); Carbon Dioxide 27 mmol/L (22-29); Chloride 104 mmol/L (96-108); Creatinine Clr Calc Pharmacy 83.2; Estimated Glomerular Filt Rate > 60; Glucose Random 102 mg/dL (60-115); Sodium 139 mmol/L (135-145)
--- NOTE | 2021-12-17 08:35 | P.PNIM_ITS ---
Subjective Subjective Date of Service: 12/17/21 Interval History: copd, covid Review of Systems seems mre awake denies any chest pain or shortness of breath or abdominal pain or fever chills still seems generalized weak. Physical Exam Verdana 4l Vital Signs: Verdana 4d Verdana 4d Vital Signs: Verdana 4d Verdana 4Bd Last Vital Signs Verdana 4d Forge Tender New 4d Forge Tender New 4d Temp 98.1 F 12/17/21 07:50 Forge Tender New 4d Pulse 84 12/17/21 07:50 Forge Tender New 4d Resp 18 12/17/21 07:50 BP 129/73 12/17/21 07:50 Pulse Ox 99 12/17/21 07:50 Oxygen Flow Rate 4 11/25/21 07:42 BMI result Body Mass Index 19.8 Appearance: Alert.? Oriented X3,? not in distress.? Eyes: Pupils equal, round and reactive to light.? Sclera nonicteric.? ENT: Pharynx normal.? Moist mucous membranes. cvs: rrr, [id number] res: air entry diminshed at bases , has scattered rhonchii b/l abd: no rebound or guarding ,nt, bs present. ext pulses present , no cyanosis. neuro: axo3 , nonfocal. Objective Data Active Medications Acetaminophen (Acetaminophen 325 Mg Tablet) 650 mg PO Q6H PRN PRN Reason: Pain, Mild (Pain Scale 1-3) Last Admin: 12/16/21 21:59 Dose: 650 mg Documented by: ZACKERY Albuterol Sulfate (Albuterol Sulfate (0.083%) 2.5 Mg/3 Ml Vial.Neb) 2.5 mg INHALE Q6H PRN PRN Reason: Shortness Of Breath Or Wheezing Apixaban (Apixaban 5 Mg Tablet) 5 mg PO BID [facility] Last Admin: 12/16/21 21:02 Dose: 5 mg Documented by: ZACKERY Famotidine (Famotidine 20 Mg Tablet) 20 mg PO DAILY [facility] Last Admin: 12/16/21 10:31 Dose: 20 mg Documented by: ALFRED Fentanyl (Fentanyl 50 Mcg Patch.Td72) 50 mcg TRANSDERMA Q72H [facility] Last Admin: 12/16/21 10:31 Dose: 50 mcg Documented by: ALFRED Fluoxetine HCl (Fluoxetine Hcl 20 Mg Capsule) 40 mg PO DAILY [facility] Last Admin: 12/16/21 10:31 Dose: 40 mg Documented by: ALFRED Hydroxychloroquine Sulfate (Hydroxychloroquine Sulfate 200 Mg Tablet) 200 mg PO BID [facility] Last Admin: 12/16/21 21:02 Dose: 200 mg Documented by: ZACKERY Promethazine HCl 6.25 mg/ (Sodium Chloride) 50.25 mls @ 201 mls/hr IV Q12H PRN PRN Reason: Nausea and Vomiting Last Infusion: 12/15/21 21:07 Dose: 0 mls/hr Documented by: JUAN ANTONIO Levothyroxine Sodium (Levothyroxine Sodium 175 Mcg Tablet) 175 mcg PO DAILY@0630 [facility] Last Admin: 12/17/21 05:59 Dose: 175 mcg Documented by: ZACKERY Lorazepam (Lorazepam 1 Mg Tablet) 1 mg PO DAILY [facility] Last Admin: 12/16/21 10:31 Dose: Not Given Documented by: ALFRED Non-Admin Reason: Physician Held Med Metoclopramide HCl (Metoclopramide Hcl 10 Mg/2 Ml Vial) 10 mg IVPUSH Q6H PRN PRN Reason: Nausea Last Admin: 12/15/21 15:34 Dose: 10 mg Documented by: GLENN Multivitamins/Vitamin C (Multivitamin Tablet) 1 tab PO DAILY [facility] Last Admin: 12/16/21 10:31 Dose: 1 tab Documented by: ALFRED Ondansetron HCl (Ondansetron Hcl 4 Mg/2 Ml Vial) 4 mg IVPUSH Q6H PRN PRN Reason: Nausea Last Admin: 12/15/21 10:29 Dose: 4 mg Documented by: GLENN Pravastatin Sodium (Pravastatin Sodium 40 Mg Tablet) 40 mg PO BEDTIME [facility] Last Admin: 12/16/21 21:02 Dose: 40 mg Documented by: ZACKERY Prednisone (Prednisone 20 Mg Tablet) 20 mg PO DAILY [facility] Last Admin: 12/16/21 10:31 Dose: 20 mg Documented by: ALFRED Sulfasalazine (Sulfasalazine 500 Mg Tablet) 500 mg PO BID [facility] Last Admin: 12/16/21 21:02 Dose: 500 mg Documented by: ZACKERY Labs CBC & Chem 7: 01/24/22 04:08 12/17/21 05:37 Labs: Laboratory Results - last 24 hr 12/17/21 05:37 Anion Gap 12 Estim Creat Clear Calc 83.2 Estimated GFR > 60 Random Glucose 102 Calcium 10.1 Assessment and Plan (1) Acute respiratory distress syndrome (ARDS) due to COVID-19 virus: Status: Acute (2) Acute hypoxemic respiratory failure due to COVID-19: Status: Acute Plan 1. Underlying mixed connective tissue disease on immunosuppressive.? ?continue Plaquenil, po prednisone, and sulfasalazine. ?2. Underlying asthma/COPD.? ?Continue bronchodilators, po prednisone. ?3, Underlying peripheral vascular disease, status post CVA.? Continue Eliquis. ?4. Underlying fibromyalgia and chronic pain, on chronic opioids. on tramadol 50 mg Q8 and make it prn. ?Restart her Prozac. provagil added. ?5. COVID pneumonia.?improving , continue oxygen demand seems improving and prednisone.. ?6. Acute hypoxemic respiratory failure.? 2? to above and underlying chronic lung disease. ?Improving, with FiO2 -still around 4 liter oxygen,?I wouldn?t rule out the possibility that she might need further treatment for work of breathing, including opioids and/or NIV. seems more awake porvagil day2. ?7. Agitation intermittent : hold ativan 8. Nutrtion.? moderate malnutrition-po intaking slightly better, d/w staff in detail -keep her oob , encourage for po intake and hydration? , We have her on ensure supplements. Pt/ot-rehab awiating for rehab placement Quality Stroke Does the patient have a stroke diagnosis?: No VTE Prior VTE?: No VTE Risk Level:: Medical - moderate - high VTE Device Contraindication: Treatment Not Indicated VTE Drug Contraindication: N/A - Med Ordered
[2021-12-17] MEDS: Hydroxychloroquine Sulfate 200 MG TABLET PO ×2 (08:54→21:49)
[2021-12-17] MEDS: FLUoxetine HCl 20 MG CAPSULE 40 MG PO (08:54)
[2021-12-17] MEDS: Multivitamin TABLET 1 TAB PO (08:54)
[2021-12-17] MEDS: Apixaban 5 MG TABLET PO ×2 (08:54→21:49)
[2021-12-17] MEDS: predniSONE 20 MG TABLET PO (08:54)
[2021-12-17] MEDS: sulfaSALAzine 500 MG TABLET PO ×2 (08:55→21:48)
[2021-12-17] MEDS: Famotidine 20 MG TABLET PO (08:55)
[2021-12-17] MEDS: Pravastatin Sodium 40 MG TABLET PO (21:49)
[2021-12-18] VITALS (10 sets, daily range): BP systolic 132–150; BP diastolic 70–88; PULSE 77–455; RESP 16–18; TEMP 36.3–36.9; O2SAT 72–100
[2021-12-18] MEDS: Levothyroxine Sodium 175 MCG TABLET PO (05:46)
[2021-12-18] MEDS: Hydroxychloroquine Sulfate 200 MG TABLET PO ×2 (08:43→21:18)
[2021-12-18] MEDS: sulfaSALAzine 500 MG TABLET PO ×2 (08:43→21:18)
[2021-12-18] MEDS: FLUoxetine HCl 20 MG CAPSULE 40 MG PO (08:44)
[2021-12-18] MEDS: Apixaban 5 MG TABLET PO ×2 (08:44→21:18)
[2021-12-18] MEDS: Famotidine 20 MG TABLET PO ×2 (08:44→21:18)
[2021-12-18] MEDS: Multivitamin TABLET 1 TAB PO (08:44)
[2021-12-18] MEDS: predniSONE 20 MG TABLET PO (08:44)
--- NOTE | 2021-12-18 12:10 | MHC.CLN ---
F/U PO INTAKE 50-100% (12/16-12/18) DIET RX: REGULAR-APPROPRIATE PT RECEIVING ENSURE BID PROVIDES 700KCALS (57% EST KCAL NEEDS), 40G PROTEIN (57% EST PROTEIN NEEDS) CONTINUE TO MONITOR PO INTAKE CLOSELY
--- NOTE | 2021-12-18 13:03 | P.DS_ITS ---
DS: Providers Provider Date of Service: 12/18/21 Date of admission: 11/25/21 13:19 Primary care physician: Barbie Brown MD Consults: 11/25/21 13:30 Consult to Infectious Diseases Routine Consulting Provider: Karen Tabor Reason for consultation: covid hypoxia Has provider been notified: No 11/27/21 04:31 Consult to Critical Care Stat Consulting Provider: Cooper Bell Reason for consultation: Hypoxia; ARDS; COVID Positive 11/27/21 17:11 Consult to Infectious Diseases Routine Consulting Provider: Karen Tabor Reason for consultation: restricted ABX 11/30/21 12:12 Consult to Infectious Diseases Stat Consulting Provider: Karen Tabor Reason for consultation: restricted antifungal 11/30/21 12:40 Consult to Infectious Diseases Routine Consulting Provider: Karen Tabor Reason for consultation: infection Has provider been notified: Yes DS: Diagnosis Discharge Diagnosis (1) Mixed connective tissue disease: Status: Acute (2) Acute hypoxemic respiratory failure due to COVID-19: Status: Acute (3) Cellulitis of right leg: Status: Acute DS: Summary Hospital Course Hospital Course: 46 year old women presenting with increased shortness of breath over the last few days. She? is on chronic steroids due to history lupus and rheumatoid arthritis.? She took a home test several days ago and was positive for COVID- 19.? She has been having increased cough with purulent phlegm.? In the ER she was noted to have an oxygen saturation of 80% on room air.? She denied fever, chills, nausea, vomiting, diarrhea.? White blood cell count elevated at 15.9.? Her oxygen saturation went down to 87% and she was placed on oxygen.? Chest x- ray showed prominent patchy bilateral airspace opacities.? In the ER she was given a dose of ceftriaxone, Decadron, albuterol.? she will be admitted for further med management and treatment of acute hypoxic respiratory failure secondary to COVID-19. Hospital course: 46-year-old female with past medical history lupus and rheumatoid arthritis, on Plaquenil and chronic steroids; asthma/COPD; CVA; PVD; hypothyroidism; fibromyalgia,.? According to the patient, she?d been intubated three times previously for asthma/COPD.? She had previously undergone tracheostomy with later reversal.? patient was admitted due to hypoxemic respiratory failure secondary to COVID pneumonia and treated in the usual fashion, including remdesivir a Her oxygen requirement increased progressively -required ICU level of care including BiPAP, then intubated later that day and also received acourse of baricitinib.? During her ICU course, stool came back positive for CDiff; sputum grew a sensitive Serratia. ?CDiff was treated with rifaximin.? The Serratia pneumonia was treated with ceftriaxone.? ?She was extubated on December 05, but had to be reintubated that night.? She was extubated Dec 09. Patient subsequently improved shortness of breath blanc and sent to floor- currently getting treatment: Acute hypoxemic respiratory failure secondary to multifactorial issue, COVID, COPD, also might be contribution to chronic opioid use. Patient is currently on taper dose of steroids, once steroid tapered should continue her home prednisone dose 5 mg daily for her mixed connective tissue disease. Continue incentive spirometry. COVID pneumonia: shortness of breath and oxygen demand seems to be improving, continue prednisone taper, continue to taper oxygen in rehab. ? Underlying fibromyalgia and chronic pain, on chronic opioids. start back her tramadol 50 mg Q8 but used as needed. ?Restart her Prozac and add slowly other psych medications in rehab. Patient had some intermittent agitation when she came from rehab, her mental status improved to baseline now, and Provigil was stopped. Please introduce psych medications slowly and monitor in rehab. Nutrtion?: P.o. intake is improving, please add Ensure as needed in rehab in case p.o. intake still low. Consider nutritional evaluation. Patient will benefit from less than 30 day stay. Above management discussed with the patient in detail length and her sister get -they both understand and in agreement with the above plan, time spent 50 minutes and 50% time spent on counseling. Significant findings: As above. Procedures performed: None. Treatment and response: As above. Complications: None. Time Spent with Patient Time attestation: Total time spent providing and/or coordinating discharge services: Discharge coordination time: Greater than 30 minutes Quality: Stroke Does the patient have a stroke diagnosis?: No Physical Exam Verdana 4l Vital Signs: Verdana 4d Verdana 4d Vital Signs: Verdana 4d Verdana 4Bd Last Vital Signs Verdana 4d Tacker Elastic Band New 4d Tacker Elastic Band New 4d Temp 98.3 F 12/18/21 11:44 Tacker Elastic Band New 4d Pulse 455 H 12/18/21 11:59 Tacker Elastic Band New 4d Resp 16 12/18/21 11:44 BP 150/88 H 12/18/21 11:44 Pulse Ox 98 12/18/21 10:42 Oxygen Flow Rate 4 11/25/21 07:42 BMI result Body Mass Index 19.8 Appearance: Alert.? Oriented X3,? not in distress.? Eyes: Pupils equal, round and reactive to light.? Sclera nonicteric.? ENT: Pharynx normal.? Moist mucous membranes. cvs: rrr, [id number] res: air entry diminshed at bases , has scattered rhonchii b/l abd: no rebound or guarding ,nt, bs present. ext pulses present , no cyanosis. neuro: axo3 , nonfocal. DS: Data Data Completed and Pending Completed studies during hospitalization [Text1]: Procedures Excision of Left Lower Leg Subcutaneous Tissue and Fascia, Open Approach, Diagnostic (08/31/20) Discharge Plan Discharge Patient Disposition: er [facility] Discharge Diagnosis: acute hypoxemic respiratory failure sec to covid. Referrals: [facility] pearson [Other] - 1 Week Barbie Dunn MD [Primary Care Provider] - 1 Week Discharge Medications: New famotidine 20 mg Tablet 20 mg PO DAILY Qty: 30 0RF prednisone 10 mg tablet See Rx Instructions .ROUTE .COMPLEX Qty: 9 0RF Rx Instructions: take 20 mg by mouth for 3 days and then 10 mg po for 3 days then switch to her home prednisone dose. Continued folic acid 1 mg tablet 1 mg PO DAILY Qty: 30 3RF hydroxychloroquine 200 mg tablet 200 mg PO BID Qty: 60 3RF albuterol sulfate 2.5 mg /3 mL (0.083 %) solution for nebulization 2.5 mg inhalation Q6H PRN (Reason: Shortness Of Breath Or Wheezing) 0RF prednisone 5 mg tablet 5 mg PO DAILY 0RF bupropion HCl 100 mg tablet sustained-release 12 hr 100 mg PO BID 0RF [id number]-bkyw 50-325-40 mg tablet 2 tab PO DAILY PRN (Reason: headache) 0RF albuterol sulfate 90 mcg/actuation HFA aerosol inhaler 2 puff inhalation Q4H PRN (Reason: Shortness Of Breath Or Wheezing) 0RF sulfasalazine 500 mg Tablet 500 mg PO BID 0RF loratadine 10 mg Tablet 10 mg PO DAILY 0RF multivitamin Tablet 1 tab PO DAILY 0RF Flovent HFA 220 mcg/actuation Hfa Aerosol Inhaler 1 puff INHALATION BID 0RF apixaban 5 mg Tablet 5 mg PO BID 0RF levothyroxine 175 mcg Tablet 175 mcg PO DAILY 0RF fluoxetine [Prozac] 40 mg capsule 40 mg PO DAILY 0RF lorazepam 1 mg tablet 1 mg PO BID PRN (Reason: Anxiety) 0RF pravastatin 40 mg tablet 40 mg PO BEDTIME 0RF Changed tramadol 50 mg Tablet 50 mg PO Q8H PRN (Reason: pain) Qty: 0 0RF Discharge Orders: Discharge Order (Routine); Ordered 12/18/21 Ordered By: Bonnie Cheema Diet: advance to usual diet Activity on Discharge: As tolerated Stand Alone Forms: Patient Portal Discharge page Care Plan Goals: Acute hypoxemic respiratory failure secondary to COVID pneumonia, COPD. In addition patient was treated for Serratia pneumonia in ICU. Patient shortness of breath seems to improved significantly as well as her mental status seems to be improved significantly also. Currently on 4 L oxygen but saturating fine and noted any distress. Will continue tapering p.o. steroids. Slowly taper oxygen in rehab. In addition patient psych medications can be slowly added back in rehab. Further management as per rehab. strongly advised to quit smoking. Patient will benefit from less than 30 days stay in rehab. Health Concerns: As above. Plan of Treatment: As above. Assessment: As above.
--- NOTE | 2021-12-18 13:08 | MHC.CM.PN ---
pt to be dcd todayat 3 to [facility] spoke with pts sister cherri
--- NOTE | 2021-12-18 15:47 | PC.NURSE ---
Pt alert and oriented x3. pt denies pian or discomfort. Pt saturating 94-95%. Pt weaned down to 3L, still saturating 93-93%, and it pretty much stayed in the 90s on 2L nad 1L. Pt continues to saurate in the 90s at rest. At 1520 Lara cath removed, and pt ambulated to the door. She became tachycardic and her O2 sats dropped to the 70s. notified. Pt put back on 4L O2 via [place]. Pt refused to go to rehab stating that it is too far. Family in here to talk to her.
--- NOTE | 2021-12-18 16:13 | MHC.CM.PN ---
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
--- NOTE | 2021-12-18 17:05 | P.PNIM_ITS ---
Subjective Subjective Date of Service: 12/18/21 Interval History: Acute hypoxemic respiratory failure secondary to COVID, COPD Review of Systems Patient was requested to discharge to rehab-but she refused that and subsequently needed home oxygen evaluation even with little walking her sats down to 72% and even with 10 L her sats were still in 90s. Of note she removed her oxygen this afternoon and thought that she is going home without oxygen but that was not the case only reason she did that because she does not want to go to rehab far away. Denies any chest pain or abdominal pain or nausea or vomiting or fever or chills. Physical Exam Verdana 4l Vital Signs: Verdana 4d Verdana 4d Vital Signs: Verdana 4d Verdana 4Bd Last Vital Signs Verdana 4d First Aid Officer New 4d First Aid Officer New 4d Temp 98.3 F 12/18/21 11:44 First Aid Officer New 4d Pulse 455 H 12/18/21 11:59 First Aid Officer New 4d Resp 16 12/18/21 11:44 BP 150/88 H 12/18/21 11:44 Pulse Ox 98 12/18/21 10:42 Oxygen Flow Rate 4 11/25/21 07:42 BMI result Body Mass Index 19.8 Appearance: Alert.? Oriented X3,? not in distress.? Eyes: Pupils equal, round and reactive to light.? Sclera nonicteric.? ENT: Pharynx normal.? Moist mucous membranes. cvs: rrr, [id number] res: air entry diminshed at bases , has scattered rhonchii b/l abd: no rebound or guarding ,nt, bs present. ext pulses present , no cyanosis. neuro: axo3 , nonfocal. Objective Data Active Medications Acetaminophen (Acetaminophen 325 Mg Tablet) 650 mg PO Q6H PRN PRN Reason: Pain, Mild (Pain Scale 1-3) Last Admin: 12/16/21 21:59 Dose: 650 mg Documented by: ZACKERY Albuterol Sulfate (Albuterol Sulfate (0.083%) 2.5 Mg/3 Ml Vial.Neb) 2.5 mg INHALE Q6H PRN PRN Reason: Shortness Of Breath Or Wheezing Apixaban (Apixaban 5 Mg Tablet) 5 mg PO BID [facility] Last Admin: 12/18/21 08:44 Dose: 5 mg Documented by: TAMICA Famotidine (Famotidine 20 Mg Tablet) 20 mg PO DAILY [facility] Last Admin: 12/18/21 08:44 Dose: 20 mg Documented by: TAMICA Fentanyl (Fentanyl 50 Mcg Patch.Td72) 50 mcg TRANSDERMA Q72H [facility] Last Admin: 12/16/21 10:31 Dose: 50 mcg Documented by: ALFRED Fluoxetine HCl (Fluoxetine Hcl 20 Mg Capsule) 40 mg PO DAILY [facility] Last Admin: 12/18/21 08:44 Dose: 40 mg Documented by: TAMICA Hydroxychloroquine Sulfate (Hydroxychloroquine Sulfate 200 Mg Tablet) 200 mg PO BID [facility] Last Admin: 12/18/21 08:43 Dose: 200 mg Documented by: TAMICA Promethazine HCl 6.25 mg/ (Sodium Chloride) 50.25 mls @ 201 mls/hr IV Q12H PRN PRN Reason: Nausea and Vomiting Last Infusion: 12/15/21 21:07 Dose: 0 mls/hr Documented by: JUAN ANTONIO Levothyroxine Sodium (Levothyroxine Sodium 175 Mcg Tablet) 175 mcg PO DAILY@0630 [facility] Last Admin: 12/18/21 05:46 Dose: 175 mcg Documented by: FANG Lorazepam (Lorazepam 1 Mg Tablet) 1 mg PO DAILY [facility] Last Admin: 12/16/21 10:31 Dose: Not Given Documented by: ALFRED Non-Admin Reason: Physician Held Med Metoclopramide HCl (Metoclopramide Hcl 10 Mg/2 Ml Vial) 10 mg IVPUSH Q6H PRN PRN Reason: Nausea Last Admin: 12/15/21 15:34 Dose: 10 mg Documented by: GLENN Multivitamins/Vitamin C (Multivitamin Tablet) 1 tab PO DAILY [facility] Last Admin: 12/18/21 08:44 Dose: 1 tab Documented by: TAMICA Ondansetron HCl (Ondansetron Hcl 4 Mg/2 Ml Vial) 4 mg IVPUSH Q6H PRN PRN Reason: Nausea Last Admin: 12/15/21 10:29 Dose: 4 mg Documented by: GLENN Pravastatin Sodium (Pravastatin Sodium 40 Mg Tablet) 40 mg PO BEDTIME [facility] Last Admin: 01/30/22 21:49 Dose: 40 mg Documented by: FANG Prednisone (Prednisone 20 Mg Tablet) 20 mg PO DAILY [facility] Last Admin: 12/18/21 08:44 Dose: 20 mg Documented by: TAMICA Sulfasalazine (Sulfasalazine 500 Mg Tablet) 500 mg PO BID [facility] Last Admin: 12/18/21 08:43 Dose: 500 mg Documented by: TAMICA Labs CBC & Chem 7: 12/11/21 04:08 12/17/21 05:37 Assessment and Plan (1) Acute respiratory distress syndrome (ARDS) due to COVID-19 virus: Status: Acute (2) Acute hypoxemic respiratory failure due to COVID-19: Status: Acute Plan 1. Underlying mixed connective tissue disease on immunosuppressive.? ?continue Plaquenil, po prednisone, and sulfasalazine. ?2.Acute hypoxemic respiratory failure.? 2? to above and underlying chronic lung disease Underlying asthma/COPD, covid will switch to iv steriods ?Continue bronchodilators,oxygen supprt ?3, Underlying peripheral vascular disease, status post CVA.? Continue Eliquis. ?4. Underlying fibromyalgia and chronic pain, on chronic opioids. on tramadol 50 mg Q8 and make it prn. ?Restart her Prozac. provagil added. ?5. COVID pneumonia.?improving , continue oxygen demand seems improving and prednisone.. ?6.. Agitation intermittent : more awake and alert ,hold ativan 7.. Nutrtion.? moderate malnutrition-po intaking slightly better, d/w staff in detail -keep her oob , encourage for po intake and hydration? , We have her on ensure supplements. Pt/ot-rehab Due to significant need of oxygen and short of breath patient cannot go home today. We will re-evaluate her on day-to-day basis. She is high risk of getting back to BiPAP if she continued to get worse. If continue to get worse please consider ICU evaluation. Quality Stroke Does the patient have a stroke diagnosis?: No VTE Prior VTE?: No VTE Risk Level:: Medical - moderate - high VTE Device Contraindication: Treatment Not Indicated VTE Drug Contraindication: N/A - Med Ordered
[2021-12-18] MEDS: methylPREDNISolone Sod Succ 40 MG/ML VIAL IVPUSH ×2 (18:50→23:54)
[2021-12-18] MEDS: Albuterol/Iprat 2.5/0.5MG 3 ML AMPUL.NEB INHALE (19:48)
[2021-12-18] MEDS: Pravastatin Sodium 40 MG TABLET PO (21:18)
[2021-12-19 03:26] VITALS: BP 126/63; PULSE 71; RESP 17; TEMP 36.2; O2SAT 100
--- NOTE | 2021-12-19 04:42 | PC.NURSE ---
Per shift report pt jean baptiste removed at 1530 and DTV around 2130. Pt bladder scanned at 0000 for 156mL and bladder scanned at 0415 for 235mL. Pt has no urge to void at this time. Will continue to monitor.
[2021-12-19] MEDS: Levothyroxine Sodium 175 MCG TABLET PO (05:59)
[2021-12-19 07:44] LABS: Hemoglobin 10.2 g/dl (12.0-16.0); Mean Corpuscular HGB Conc 29.1 g/dl (31.0-35.0); Mean Platelet Volume 9.6 fL (9.4-12.3); Platelet Count 279 X10*3/uL (160-400); Red Blood Count 4.43 X10*6/uL (4.20-5.50); Red Cell Distribution Width 15.2 % (11.0-16.0); White Blood Count 10.3 X10*3/uL (4.8-10.8)
[2021-12-19 07:51] VITALS: BP 139/70; PULSE 101; RESP 19; TEMP 36.8; O2SAT 91
[2021-12-19 07:57] LABS: Anion Gap 11 (12-20); Blood Urea Nitrogen 18 mg/dL (9-16); Calcium 9.8 mg/dL (8.4-10.2); Carbon Dioxide 29 mmol/L (22-29); Chloride 103 mmol/L (96-108); Creatinine Clr Calc Pharmacy 83.2; Estimated Glomerular Filt Rate > 60; Glucose Random 115 mg/dL (60-115); Potassium 3.8 mmol/L (3.3-5.1); Sodium 139 mmol/L (135-145)
[2021-12-19] MEDS: fentaNYL 50 MCG PATCH.TD72 TRANSDERMA (08:50)
[2021-12-19] MEDS: methylPREDNISolone Sod Succ 40 MG/ML VIAL IVPUSH ×3 (08:51→23:44)
[2021-12-19] MEDS: Hydroxychloroquine Sulfate 200 MG TABLET PO ×2 (08:52→20:17)
[2021-12-19] MEDS: FLUoxetine HCl 20 MG CAPSULE 40 MG PO (08:52)
[2021-12-19] MEDS: Multivitamin TABLET 1 TAB PO (08:52)
[2021-12-19] MEDS: sulfaSALAzine 500 MG TABLET PO ×2 (08:52→20:17)
[2021-12-19] MEDS: Famotidine 20 MG TABLET PO ×2 (08:52→20:17)
[2021-12-19] MEDS: Apixaban 5 MG TABLET PO ×2 (08:52→20:17)
[2021-12-19 11:08] VITALS: BP 159/86; PULSE 105; RESP 19; TEMP 36.2; O2SAT 90
--- NOTE | 2021-12-19 11:14 | P.PNIM_ITS ---
Subjective Subjective Date of Service: 12/19/21 Interval History: F/u on covid hypoxia with prolonged recovery and overall seems better Review of Systems no sob no fever Physical Exam Verdana 4l Vital Signs: Verdana 4d Verdana 4d Vital Signs: Verdana 4d Verdana 4Bd Last Vital Signs Verdana 4d Windows Deployment Technician New 4d Windows Deployment Technician New 4d Temp 97.1 F 12/19/21 11:08 Windows Deployment Technician New 4d Pulse 105 H 12/19/21 11:08 Windows Deployment Technician New 4d Resp 19 12/19/21 11:08 BP 159/86 H 12/19/21 11:08 Pulse Ox 90 L 12/19/21 11:08 Oxygen Flow Rate 4 11/25/21 07:42 BMI result Body Mass Index 19.8 Const: Other: General: AO X 3, no acute distress Resp: CTA bilateral CVS: S1,S2,RRR GI: +BS, NT, no distention Skin: No rash Neuro: motor grossly intact Psych: appropriate affect Objective Data Active Medications Acetaminophen (Acetaminophen 325 Mg Tablet) 650 mg PO Q6H PRN PRN Reason: Pain, Mild (Pain Scale 1-3) Last Admin: 12/16/21 21:59 Dose: 650 mg Documented by: ZACKERY Albuterol/Ipratropium (Albuterol/Iprat 2.5/0.5mg 3 Ml Ampul.Neb) 3 ml INHALE RQ4H WHILE AWAKE [facility] Last Admin: 12/19/21 07:37 Dose: Not Given Documented by: KULWINDER Non-Admin Reason: pt refused at this time Apixaban (Apixaban 5 Mg Tablet) 5 mg PO BID [facility] Last Admin: 12/19/21 08:52 Dose: 5 mg Documented by: TAMICA Famotidine (Famotidine 20 Mg Tablet) 20 mg PO BID [facility] Last Admin: 12/19/21 08:52 Dose: 20 mg Documented by: TAMICA Fentanyl (Fentanyl 50 Mcg Patch.Td72) 50 mcg TRANSDERMA Q72H [facility] Last Admin: 12/19/21 08:50 Dose: 50 mcg Documented by: TAMICA Fluoxetine HCl (Fluoxetine Hcl 20 Mg Capsule) 40 mg PO DAILY [facility] Last Admin: 12/19/21 08:52 Dose: 40 mg Documented by: TAMICA Hydroxychloroquine Sulfate (Hydroxychloroquine Sulfate 200 Mg Tablet) 200 mg PO BID [facility] Last Admin: 12/19/21 08:52 Dose: 200 mg Documented by: TAMICA Promethazine HCl 6.25 mg/ (Sodium Chloride) 50.25 mls @ 201 mls/hr IV Q12H PRN PRN Reason: Nausea and Vomiting Last Infusion: 12/15/21 21:07 Dose: 0 mls/hr Documented by: JUAN ANTONIO Levothyroxine Sodium (Levothyroxine Sodium 175 Mcg Tablet) 175 mcg PO DAILY@0630 [facility] Last Admin: 12/19/21 05:59 Dose: 175 mcg Documented by: EARL Lorazepam (Lorazepam 1 Mg Tablet) 1 mg PO DAILY [facility] Last Admin: 12/16/21 10:31 Dose: Not Given Documented by: ALFRED Non-Admin Reason: Physician Held Med Methylprednisolone Sodium Succinate (Methylprednisolone Sod Succ 40 Mg/Ml Vial) 40 mg IVPUSH Q8H [facility] Last Admin: 12/19/21 08:51 Dose: 40 mg Documented by: TAMICA Metoclopramide HCl (Metoclopramide Hcl 10 Mg/2 Ml Vial) 10 mg IVPUSH Q6H PRN PRN Reason: Nausea Last Admin: 12/15/21 15:34 Dose: 10 mg Documented by: GLENN Multivitamins/Vitamin C (Multivitamin Tablet) 1 tab PO DAILY [facility] Last Admin: 12/19/21 08:52 Dose: 1 tab Documented by: TAMICA Ondansetron HCl (Ondansetron Hcl 4 Mg/2 Ml Vial) 4 mg IVPUSH Q6H PRN PRN Reason: Nausea Last Admin: 12/15/21 10:29 Dose: 4 mg Documented by: GLENN Pravastatin Sodium (Pravastatin Sodium 40 Mg Tablet) 40 mg PO BEDTIME [facility] Last Admin: 12/18/21 21:18 Dose: 40 mg Documented by: EARL Sulfasalazine (Sulfasalazine 500 Mg Tablet) 500 mg PO BID [facility] Last Admin: 12/19/21 08:52 Dose: 500 mg Documented by: TAMICA Labs CBC & Chem 7: 12/19/21 07:21 12/19/21 07:21 Labs: Laboratory Results - last 24 hr 12/19/21 12/19/21 07:21 07:21 MCV 79.0 L MCH 23.0 L MCHC 29.1 L RDW 15.2 Plt Count 279 D MPV 9.6 Absolute Nucleated RBC 0.000 Nucleated RBC % (auto) 0.0 Anion Gap 11 L Estim Creat Clear Calc 83.2 Estimated GFR > 60 Random Glucose 115 Calcium 9.8 Assessment and Plan (1) Acute respiratory distress syndrome (ARDS) due to COVID-19 virus: Status: Acute (2) Acute hypoxemic respiratory failure due to COVID-19: Status: Acute Plan 1. Underlying mixed connective tissue disease on immunosuppressive.? ?continue Plaquenil, po prednisone, and sulfasalazine. ?2.Acute hypoxemic respiratory failure.? 2? to above and underlying chronic lung disease Underlying asthma/COPD, covid will switch to iv steriods ?Continue bronchodilators,oxygen supprt ?3, Underlying peripheral vascular disease, status post CVA.? Continue Eliquis. ?4. Underlying fibromyalgia and chronic pain, on chronic opioids. on tramadol 50 mg Q8 and make it prn. ?Restart her Prozac. provagil added. ?5. COVID pneumonia.?improving , continue oxygen demand seems improving and prednisone.. ?6.. Agitation intermittent : more awake and alert ,hold ativan 7.. Nutrtion.? moderate malnutrition-po intaking slightly better, d/w staff in detail -keep her oob , encourage for po intake and hydration? , We have her on ensure supplements. Pt/ot-rehab Will attempt to dc to rehab with O2 Quality Stroke Does the patient have a stroke diagnosis?: No VTE Prior VTE?: No VTE Risk Level:: Medical - moderate - high VTE Device Contraindication: Treatment Not Indicated VTE Drug Contraindication: N/A - Med Ordered
--- NOTE | 2021-12-19 12:40 | PC.NURSE ---
Pt alert and oriented x3. Pt denies pain. Pt continues to be SOB with even minimal exertion such as standing and desats to the 70s and 80s. Pt continues on $L O2 via NC at rest and 10 with activity. Pt is mor agreeable to rehab today. pt is very weak still and unable to ambulate short distances. Pt is NSR on tele with intermittent tachycardia with activity.
--- NOTE | 2021-12-19 15:16 | PC.NURSE ---
Pt is pleasnatly confused and is barbadian speaking mostly. Pt is doing well afterall. Pt was on Oxygen that was put on overnight but is saturating in the mid 90s. Pt weaned off O2 and she is doing well with O2 sats at 95-97%
[2021-12-19 15:47] VITALS: BP 160/87; PULSE 111; RESP 18; TEMP 36.4; O2SAT 93
--- NOTE | 2021-12-19 15:58 | MHC.CM.PN ---
dc cancelled for today all parties notifed
[2021-12-19 19:03] VITALS: BP 154/86; PULSE 82; RESP 18; TEMP 36.8; O2SAT 100
[2021-12-19] MEDS: Albuterol/Iprat 2.5/0.5MG 3 ML AMPUL.NEB INHALE (19:31)
[2021-12-19 19:33] VITALS: PULSE 83; RESP 18; O2SAT 98
[2021-12-19] MEDS: Pravastatin Sodium 40 MG TABLET PO (20:17)
[2021-12-19] MEDS: Acetaminophen 325 MG TABLET 650 MG PO (20:25)
[2021-12-20] VITALS: BP 149/76; PULSE 77; RESP 20; TEMP 36.9; O2SAT 99
[2021-12-20 04:00] VITALS: BP 143/86; PULSE 85; RESP 20; TEMP 37.1; O2SAT 97
[2021-12-20] MEDS: Levothyroxine Sodium 175 MCG TABLET PO (06:05)
[2021-12-20 07:31] VITALS: BP 114/65; PULSE 76; RESP 18; TEMP 36.4; O2SAT 100
[2021-12-20] MEDS: Albuterol/Iprat 2.5/0.5MG 3 ML AMPUL.NEB INHALE (08:23)
[2021-12-20 08:25] VITALS: PULSE 84; RESP 18; O2SAT 97
[2021-12-20] MEDS: Apixaban 5 MG TABLET PO (09:10)
[2021-12-20] MEDS: Famotidine 20 MG TABLET PO (09:10)
[2021-12-20] MEDS: sulfaSALAzine 500 MG TABLET PO (09:11)
[2021-12-20] MEDS: Multivitamin TABLET 1 TAB PO (09:11)
[2021-12-20] MEDS: FLUoxetine HCl 20 MG CAPSULE 40 MG PO (09:11)
[2021-12-20] MEDS: methylPREDNISolone Sod Succ 40 MG/ML VIAL IVPUSH (09:11)
[2021-12-20] MEDS: Hydroxychloroquine Sulfate 200 MG TABLET PO (09:11)
[2021-12-20 11:01] VITALS: BP 149/77; PULSE 94; RESP 18; TEMP 36.7; O2SAT 99
--- NOTE | 2021-12-20 11:10 | P.DS_ITS ---
DS: Providers Provider Date of Service: 12/20/21 Date of admission: 11/25/21 13:19 Primary care physician: Barbie Brown MD Consults: 11/25/21 13:30 Consult to Infectious Diseases Routine Consulting Provider: Karen Tabor Reason for consultation: covid hypoxia Has provider been notified: No 11/27/21 04:31 Consult to Critical Care Stat Consulting Provider: Cooper Bell Reason for consultation: Hypoxia; ARDS; COVID Positive 11/27/21 17:11 Consult to Infectious Diseases Routine Consulting Provider: Karen Tabor Reason for consultation: restricted ABX 11/30/21 12:12 Consult to Infectious Diseases Stat Consulting Provider: Karen Tabor Reason for consultation: restricted antifungal 11/30/21 12:40 Consult to Infectious Diseases Routine Consulting Provider: Karen Tabor Reason for consultation: infection Has provider been notified: Yes DS: Diagnosis Discharge Diagnosis (1) Acute respiratory distress syndrome (ARDS) due to COVID-19 virus: Status: Acute (2) Acute hypoxemic respiratory failure due to COVID-19: Status: Acute DS: Summary Hospital Course Hospital Course: Addmision HPI: 46 year old women presenting with increased shortness of breath over the last few days. She? is on chronic steroids due to history lupus and rheumatoid arthritis.? She took a home test several days ago and was positive for COVID-19.? She has been having increased cough with purulent phlegm.? In the ER she was noted to have an oxygen saturation of 80% on room air.? She denied fever, chills, nausea, vomiting, diarrhea.? White blood cell count elevated at 15.9.? Her oxygen saturation went down to 87% and she was placed on oxygen.? Chest x-ray showed prominent patchy bilateral airspace opacities.? In the ER she was given a dose of ceftriaxone, Decadron, albuterol.? she will be admitted for further med management and treatment of acute hypoxic respiratory failure secondary to COVID-19. Hospital course: 46-year-old female with past medical history lupus and rheumatoid arthritis, on Plaquenil and chronic steroids; asthma/COPD; CVA; PVD; hypothyroidism; fibromyalgia,.? According to the patient, she?d been intubated three times previously for asthma/COPD.? She had previously undergone tracheostomy with later reversal.? Patient was admitted due to hypoxemic respiratory failure secondary to COVID pneumonia and treated in the usual fashion, including remdesivir and steroid and oxygen. Her oxygen requirement increased progressively -required ICU level of care including BiPAP, then intubation and ultimately treated with Baricitinib.? During her ICU course, she had CDiff treated with Rifaximin. Sputum grew sensitive Serratia treated with ceftriaxone.? ?She was extubated on December 05, but had to be reintubated that night.? She was extubated second time on Dec 09. She was later transfered to the floor..The acute hypoxemic respiratory failure is attributed to , COVID, COPD, and chronic opioid use. Patient is currently on taper dose of steroids, once steroid tapered should continue her home prednisone dose 5 mg daily for her mixed connective tissue disease. Continue incentive spirometry use COVID pneumonia with persistent hypoxia to continue use of oxygen at rehab with goal of been taking of O2 or stent home with O2, presently satting 99 on 4 liter s and has low tolerance for activity. ? Underlying fibromyalgia and chronic pain, on chronic opioids. start back her tramadol 50 mg Q8 but used as needed. Continue Prozac and add slowly other psych medications in rehab. Patient had some intermittent agitation when she came from ICU, her mental status improved to baseline now, and Provigil was stopped. Please introduce psych medications slowly and monitor in rehab. Nutrtion mild protein calory malnutrition?: P.o. intake is improving, please add Ensure as needed in rehab in case p.o. intake still low but continue to gradually improve. She is severely deconditioned with little energy reservce and will benefit from short term rehab for less than 30 days, she is agreable to this. Significant findings: As above. Procedures performed: None. Treatment and response: As above. Complications: None. Final diagnoses: Covid pneumonia Acute hypoxic respriatory failure Toxic metabolic encephalopathy Mild protein calory malnutrition Chronic pain syndrome Deconditioning Time Spent with Patient Time attestation: Total time spent providing and/or coordinating discharge services: Discharge coordination time: Greater than 30 minutes Quality: Stroke Does the patient have a stroke diagnosis?: No Physical Exam Verdana 4l Vital Signs: Verdana 4d Verdana 4d Vital Signs: Verdana 4d Verdana 4Bd Last Vital Signs Verdana 4d Cigar Tobacco Processing Supervisor New 4d Cigar Tobacco Processing Supervisor New 4d Temp 98.1 F 12/20/21 11:01 Cigar Tobacco Processing Supervisor New 4d Pulse 94 12/20/21 11:01 Cigar Tobacco Processing Supervisor New 4d Resp 18 12/20/21 11:01 BP 149/77 H 12/20/21 11:01 Pulse Ox 99 12/20/21 11:01 Oxygen Flow Rate 4 11/25/21 07:42 BMI result Body Mass Index 19.8 Const: Other: General: AO X 3, no acute distress Resp: CTA bilateral CVS: S1,S2,RRR GI: +BS, NT, no distention Skin: No rash Neuro: motor grossly intact Psych: appropriate affect DS: Data Data Completed and Pending Completed studies during hospitalization [Text1]: Procedures Excision of Left Lower Leg Subcutaneous Tissue and Fascia, Open Approach, Diagnostic (08/31/20) Discharge Plan Discharge Anticipated Discharge Date/Time: 12/19/21 11:08 Patient Disposition: Home Health Service Discharge Diagnosis: acute hypoxemic respiratory failure sec to covid. Referrals: [facility] [Other] - 1 Week Barbie Dunn MD [Primary Care Provider] - 1 Week Discharge Medications: New famotidine 20 mg Tablet 20 mg PO DAILY Qty: 30 0RF prednisone 10 mg tablet See Rx Instructions .ROUTE .COMPLEX Qty: 9 0RF Rx Instructions: take 20 mg by mouth for 3 days and then 10 mg po for 3 days then switch to her home prednisone dose. Continued folic acid 1 mg tablet 1 mg PO DAILY Qty: 30 3RF hydroxychloroquine 200 mg tablet 200 mg PO BID Qty: 60 3RF albuterol sulfate 2.5 mg /3 mL (0.083 %) solution for nebulization 2.5 mg inhalation Q6H PRN (Reason: Shortness Of Breath Or Wheezing) 0RF prednisone 5 mg tablet 5 mg PO DAILY 0RF bupropion HCl 100 mg tablet sustained-release 12 hr 100 mg PO BID 0RF xzlxownols-wxhcovmsmkwey-[id number] 50-325-40 mg tablet 2 tab PO DAILY PRN (Reason: headache) 0RF albuterol sulfate 90 mcg/actuation HFA aerosol inhaler 2 puff inhalation Q4H PRN (Reason: Shortness Of Breath Or Wheezing) 0RF sulfasalazine 500 mg Tablet 500 mg PO BID 0RF loratadine 10 mg Tablet 10 mg PO DAILY 0RF multivitamin Tablet 1 tab PO DAILY 0RF Flovent HFA 220 mcg/actuation Hfa Aerosol Inhaler 1 puff INHALATION BID 0RF apixaban 5 mg Tablet 5 mg PO BID 0RF levothyroxine 175 mcg Tablet 175 mcg PO DAILY 0RF fluoxetine [Prozac] 40 mg capsule 40 mg PO DAILY 0RF lorazepam 1 mg tablet 1 mg PO BID PRN (Reason: Anxiety) 0RF pravastatin 40 mg tablet 40 mg PO BEDTIME 0RF Changed tramadol 50 mg Tablet 50 mg PO Q8H PRN (Reason: pain) Qty: 0 0RF Discharge Orders: Discharge Order (Routine); Ordered 12/18/21 Ordered By: Bonnie Cheema Diet: advance to usual diet Activity on Discharge: As tolerated Stand Alone Forms: Patient Portal Discharge page Care Plan Goals: Acute hypoxemic respiratory failure secondary to COVID pneumonia, COPD. In addition patient was treated for Serratia pneumonia in ICU. Patient shortness of breath seems to improved significantly as well as her mental status seems to be improved significantly also. Currently on 4 L oxygen but saturating fine and noted any distress. Will continue tapering p.o. steroids. Slowly taper oxygen in rehab. In addition patient psych medications can be slowly added back in rehab. Further management as per rehab. strongly advised to quit smoking. Patient will benefit from less than 30 days stay in rehab. Health Concerns: As above. Plan of Treatment: As above. Assessment: As above.
--- NOTE | 2021-12-20 11:13 | MHC.CM.PN ---
pt is able to be dcd today [facility] booked for 12
--- NOTE | 2021-12-20 11:28 | PC.NURSE ---
attempted to decreased 02 requirements. 85%2LNC. Increased to 4L and currently 99%. Will attempt 3L
--- NOTE | 2021-12-20 13:36 | PC.NURSE ---
12:05 12/20/21 TLC catheter removed per [facility] hospital policy. Patient tolerated well. no bleeding, SOB, CP.
== END 2021-12-20 13:37 | disposition home health service (06) | DRG 207 ==
LOC: HO.ED 07:41 → HO.EDOVER 13:36 → HO.ICU 11-27 14:48 → HO.IMC 12-11 21:54
PROVIDERS: Hospitalist; Internal Medicine; Internal Medicine Cardiovascular Disease; Internal Medicine Pulmonary Disease; Physician Assistant; Physician Assistant Medical; Registered Nurse Community Health; Student in an Organized Health Care Education/Training Program; Admitting Provider Nurse Practitioner Acute Care; Emergency Provider Internal Medicine; PCP Family Medicine; Visit Provider Internal Medicine
DX: U07.1 COVID-19 (principal); J12.82 Pneumonia due to coronavirus disease 2019; J80 Acute respiratory distress syndrome; J15.6 Pneumonia due to other Gram-negative bacteria; A04.72 Enterocolitis due to Clostridium difficile, not specified as recurrent; J44.1 Chronic obstructive pulmonary disease with (acute) exacerbation; L03.115 Cellulitis of right lower limb; F11.20 Opioid dependence, uncomplicated; D84.821 Immunodeficiency due to drugs; E44.0 Moderate protein-calorie malnutrition; Z68.1 Body mass index [BMI] 19.9 or less, adult; E03.9 Hypothyroidism, unspecified; M06.9 Rheumatoid arthritis, unspecified; M32.9 Systemic lupus erythematosus, unspecified; F41.9 Anxiety disorder, unspecified; I83.015 Varicose veins of right lower extremity with ulcer other part of foot; L97.512 Non-pressure chronic ulcer of other part of right foot with fat layer exposed; F17.210 Nicotine dependence, cigarettes, uncomplicated; Z71.6 Tobacco abuse counseling; Z79.02 Long term (current) use of antithrombotics/antiplatelets; Z79.51 Long term (current) use of inhaled steroids; Z79.52 Long term (current) use of systemic steroids; Z79.890 Hormone replacement therapy; Z79.899 Other long term (current) drug therapy
CPT/HCPCS: 36415; 36600; 71045; 71275; 74176; 76705; 80048; 80053; 80076; 80202; 81001; 82040; 82272; 82728; 82803; 82947; 83605; 83615; 83735; 83880; 84100; 84145; 85025; 85027; 85379; 85610; 85730; 86850; 86900; 86901; 86920; 86921; 87040; 87070; 87071; 87073; 87077; 87081; 87086; 87186; 87205; 87324; 87493; 87635; 87640; 87641; 93306; 94002; 94003; 94640; 94660; 94799; 96365; 96375; 97110; 97163; 97530; 99285; C1758; J0248; J0295; J0330; J0696; J1100; J1940; J1956; J2060; J2185; J2250; J2270; J2405; J2550; J2765; J2920; J3010; J3370; J3465; J3490; P9016; P9047; Q9967

== ENCOUNTER 2022-02-15 14:30 | Outpatient (REF) | payer MEDICARE, MEDICAID, SELFPAY ==
--- NOTE | ~2022-02-15 | XR_ITS ---
EXAMINATION: XR CHEST CLINICAL INFORMATION: COVID infection. COMPARISON: Previous chest x-ray most recent November 2021 TECHNIQUE: 2 views of the chest were obtained. FINDINGS: The cardiac silhouette is slightly enlarged. The lungs appear well inflated. There are bilateral peripheral areas of scarring or fibrosis. 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 Findings appear improved from November 2021 exam. Bronchiectasis in the left upper lobe. There is no pleural effusion or pneumothorax. There are old right rib fractures. XR/XR chest 2V IMPRESSION: Well-inflated lungs. Persistent areas of scarring or fibrosis suggestive of post COVID fibrotic changes.
== END 2022-02-15 14:31 | disposition home or self-care (01) ==
LOC: HO.XRAY 14:30
PROVIDERS: PCP Family Medicine; Visit Provider Internal Medicine
DX: U07.1 COVID-19 (principal); J12.82 Pneumonia due to coronavirus disease 2019; J96.91 Respiratory failure, unspecified with hypoxia; J44.9 Chronic obstructive pulmonary disease, unspecified
CPT/HCPCS: 71046; 99202

== ENCOUNTER 2022-03-30 11:43 | Inpatient (IN) | payer MEDICARE, MEDICAID, SELFPAY ==
--- NOTE | ~2022-03-30 | US_ITS ---
EXAMINATION: ULTRASOUND EXTREMITY NONVASCULAR CLINICAL INFORMATION: Right leg cellulitis. Rule out abscess. COMPARISON: Right leg venous ultrasound from yesterday TECHNIQUE: Grayscale and color imaging of the right calf in the area of swelling FINDINGS: There is edema. No focal fluid collection/abscess is seen. US/US extremity nonvascular IMPRESSION: Soft tissue edema. No abscess seen.
--- NOTE | ~2022-03-30 | US_ITS ---
EXAMINATION: US VENOUS ULTRASOUND WITH DOPPLER LOWER EXTREMITY, RIGHT CLINICAL INFORMATION: Right lower extremity edema. COMPARISON: None TECHNIQUE: Ultrasound of the deep veins is performed from the hip to the calf with compression sonography and color and pulse Doppler assessment. Spectral analysis with color-flow imaging is performed. FINDINGS: There is normal venous compression and respiratory variation and augmented flow. The visualized common femoral vein, superficial femoral vein, profunda femoral vein, popliteal vein, and the trifurcation region shows no evidence of deep venous thrombosis. There is no significant popliteal fossa cyst. Superficial edema seen in the calf. If the patient's symptoms persist, followup ultrasound in 5 days 7 days might be of value to exclude proximal propagation from a non-visualized calf vein. US/US venous duplex LE RT IMPRESSION: No DVT demonstrated in the right lower extremity.
--- NOTE | ~2022-03-30 | XR_ITS ---
EXAMINATION: XR TIBIA AND FIBULA, RIGHT CLINICAL INFORMATION: Evaluate for subcutaneous air COMPARISON: None TECHNIQUE: AP and lateral views of the right tibia and fibula were obtained. FINDINGS: No convincing evidence for subcutaneous air. Probable edema in the soft tissues. No acute bony finding. XR/XR tibia fibula RT 2V IMPRESSION: No subcutaneous air is seen. Probable edema in the subcutaneous fat
[2022-03-30 11:53] VITALS: BP 128/63; PULSE 94; RESP 19; TEMP 37; O2SAT 99; BMI 26.4
[2022-03-30 12:27] LABS: MANUAL DIFF FLAG NO
[2022-03-30 12:28] LABS: Basophils Absolute Auto 0.1 X10*3/uL (0.0-0.2); Basophils Percent Auto 0.7 % (0-2); Eosinophils Absolute Auto 0.2 X10*3/uL (0.0-0.4); Eosinophils Percent Auto 1.5 % (0-4); Hematocrit 27.5 % (37.0-47.0); Hemoglobin 8.8 g/dl (12.0-16.0); Imm Gran Abs Auto 0.08 X10*3/uL (0.00-0.03); Imm Gran Pct Auto 0.7 % (0.0-0.4); Lymphocytes Absolute Auto 1.4 X10*3/uL (1.2-4.9); Lymphocytes Percent Auto 12.9 % (20-40); Mean Corpuscular Hemoglobin 25.3 pg (27.0-33.0); Mean Platelet Volume 8.6 fL (9.4-12.3); Monocytes Absolute Auto 0.5 X10*3/uL (0.1-1.2); Monocytes Percent Auto 4.2 % (2-11); Neutrophils Absolute Auto 8.6 x10*3/uL (2.0-8.3); Platelet Count 259 X10*3/uL (160-400); Red Blood Count 3.48 X10*6/uL (4.20-5.50); Red Cell Distribution Width 14.2 % (11.0-16.0); White Blood Count 10.7 X10*3/uL (4.8-10.8)
[2022-03-30 12:48] LABS: Anion Gap 10 (12-20); Blood Urea Nitrogen 15 mg/dL (9-16); Carbon Dioxide 28 mmol/L (22-29); Chloride 104 mmol/L (96-108); Creatinine Clr Calc Pharmacy 80.6; Estimated Glomerular Filt Rate > 60; Glucose Random 121 mg/dL (60-115); Potassium 4.3 mmol/L (3.3-5.1); Sodium 138 mmol/L (135-145)
--- NOTE | 2022-03-30 22:13 | ED.GENADULT ---
HPI - General Adult General Chief complaint: General Medical Stated complaint: infection on leg/ swollen Time Seen by Provider: 03/30/22 22:13 Source: patient Mode of arrival: ambulatory Limitations: no limitations History of Present Illness HPI narrative: Patient 46 years old history of lupus rheumatoid arthritis on chronic steroid treatment with COVID-19 in 12/09, CVA on Eliquis fibromyalgia, hypothyroidism, peripheral vascular disease varicose vein comes here for erythema and swelling of the right leg for last few months patient has taken antibiotic 2 times and now on 3rd course of doxycycline without any response no fever no chills no open area in the right leg no shortness of breath Related Data Home Medications Medication Instructions Recorded Confirmed lorazepam 1 mg tablet 1 mg PO BID PRN 08/15/20 11/25/21 pravastatin 40 mg tablet 40 mg PO BEDTIME 08/15/20 11/25/21 fluoxetine 40 mg capsule (Prozac) 40 mg PO DAILY 08/20/20 11/25/21 albuterol sulfate 2.5 mg INHALATION Q6H PRN 08/31/20 11/25/21 albuterol sulfate 90 mcg/actuation 2 puff INHALATION Q4H PRN 08/31/20 11/25/21 aerosol inhaler bupropion HCl 100 mg tablet,12 hr 100 mg PO BID 08/31/20 11/25/21 sustained-release [id number]-[id number]-kkhaqqpc 2 tab PO DAILY PRN 08/31/20 11/25/21 50 mg-325 mg-40 mg tablet prednisone 5 mg tablet 5 mg PO DAILY 08/31/20 11/25/21 nortriptyline 75 mg capsule 75 mg PO BEDTIME 04/18/21 11/25/21 apixaban 5 mg tablet 5 mg PO BID 10/21/21 11/25/21 fluticasone propionate 220 1 puff INHALATION BID 10/21/21 11/25/21 mcg/actuation HFA aerosol inhaler (Flovent HFA) levothyroxine 175 mcg tablet 175 mcg PO DAILY 10/21/21 11/25/21 loratadine 10 mg tablet 10 mg PO DAILY 10/21/21 11/25/21 multivitamin 1 tab PO DAILY 10/21/21 11/25/21 sulfasalazine 500 mg tablet 500 mg PO BID 10/21/21 11/25/21 doxycycline hyclate 100 mg tablet 100 mg PO BID 02/15/22 nebulizer and compressor (Vios #1 ea 02/15/22 Aerosol Delivery System) Previous Rx's Medication Instructions Recorded folic acid 1 mg tablet 1 mg PO DAILY #30 tab 05/16/21 hydroxychloroquine 200 mg tablet 200 mg PO BID #60 tab 05/16/21 tramadol 50 mg tablet 50 mg PO Q8H PRN #0 tab 12/18/21 Allergies Allergy/AdvReac Type Severity Reaction Status Date / Time clarithromycin Allergy Intermediate FACIAL Verified 02/15/22 17:08 [CLARITHROMYCIN] SWELLING/REDNESS, facial rash, facial rash, facial rash, facial rash Review of Systems Review of Systems: Yes all other systems are reviewed and are negative [facility] Past Medical History Medical History C. difficile colitis Cellulitis Cellulitis of right leg COPD (chronic obstructive pulmonary disease) CVA (cerebral vascular accident) Fibromyalgia Hypothyroid Immunosuppression due to chronic steroid use Lupus Mixed connective tissue disease PAD (peripheral artery disease) Pneumonia due to COVID-19 virus Proteinuria Respiratory failure with hypoxia Rheumatoid arthritis Secondary bacterial pneumonia Varicose veins of right lower extremity with inflammation Surgical History History of breast lump/mass excision History of bunionectomy History of cholecystectomy History of excision of mass History of partial hysterectomy Family History Family History Father No problems noted. Mother Lung cancer Social History Social History Household Members: Children Housing: House Do you presently have visiting nurse or other home services: Yes ([employer]) Alcohol intake: never Patient Tobacco Use Status: Former Tobacco user Tobacco use type: Cigarette Cigarette Packs Per Day: 1 Cigarettes Per Day: 20.0 Years Smoked: 29 Second Hand Smoke Exposure: No Advance Directives: Yes Advance Directives on File: Yes Advance Directives Date on File: 11/26/21 service: No Current occupational status: unemployed and disabled Physical Exam ED Vital Signs: Vital Signs - 24 hr 03/30/22 11:53 03/30/22 23:59 Temperature 98.6 F 97.4 F Pulse Rate 94 74 Respiratory Rate 19 18 Blood Pressure 128/63 111/56 L Pulse Oximetry 99 95 BMI result Body Mass Index 26.4 Appearance: Alert. Oriented X3. No acute distress. Eyes: No pallor or icterus ENT: Pharynx normal. Oral Mucosa moist Neck: Normal inspection. Neck supple. CVS: Normal heart rate and rhythm. Pulses normal. Respiratory: No respiratory distress. Equal air entry bilateral, no wheezing/rales/rhonchi Abdomen: Soft and nontender. Bowel sounds are present, no mass palpable, no CVA tenderness Skin: Skin warm and dry. Normal skin color. Normal skin turgor. Extremities: Right leg lower extremity edema ++ erythema of the right leg with calf tenderness no crepitation no open wound Neuro: Oriented X 3. Left-sided residual weakness No sensory deficit.No cerebellar signs , cranial nerves II-XII intact Medical Decision Making MDM Narrative Medical decision making narrative: Patient has significant cellulitis of right leg with edema and venous Doppler negative labs were stable patient failed outpatient antibiotic treatment will admit her for IV antibiotics given vanco and Zosyn for now may change into IV cephalosporin in the morning for MSSA?? blood cultures were drawn Lab Data Lab results reviewed: Yes I reviewed the patient's lab results. Result diagrams: 03/30/22 12:22 03/30/22 12:22 Labs: Lab Results 03/30/22 03/30/22 03/30/22 Range/Units 12:22 12:22 23:13 WBC 10.7 (4.8-10.8) X10*3/uL RBC 3.48 L D (4.20-5.50) X10*6/uL Hgb 8.8 L (12.0-16.0) g/dl Hct 27.5 L D (37.0-47.0) % MCV 79.0 L (80.0-98.0) fL MCH 25.3 L (27.0-33.0) pg MCHC 32.0 (31.0-35.0) g/dl RDW 14.2 (11.0-16.0) % Plt Count 259 (160-400) X10*3/uL MPV 8.6 L (9.4-12.3) fL Immature Gran % (Auto) 0.7 H (0.0-0.4) % Neut % (Auto) 80.0 H (45-73) % Lymph % (Auto) 12.9 L (20-40) % [place] % (Auto) 4.2 (2-11) % Eos % (Auto) 1.5 (0-4) % Baso % (Auto) 0.7 (0-2) % Lymph # (Auto) 1.4 (1.2-4.9) X10*3/uL [place] # (Auto) 0.5 (0.1-1.2) X10*3/uL Eos # (Auto) 0.2 (0.0-0.4) X10*3/uL Baso # (Auto) 0.1 (0.0-0.2) X10*3/uL Abs Immat Gran (auto) 0.08 H (0.00-0.03) X10*3/uL Absolute Neuts (auto) 8.6 H (2.0-8.3) x10*3/uL Absolute Nucleated RBC 0.000 (0.0-0.012) X10*3/uL Nucleated RBC % (auto) 0.0 (0.0-0.2) /100WBC Sodium 138 (135-145) mmol/L Potassium 4.3 (3.3-5.1) mmol/L Chloride 104 (96-108) mmol/L Carbon Dioxide 28 (22-29) mmol/L Anion Gap 10 L (12-20) BUN 15 (9-16) mg/dL Creatinine 0.76 (0.5-1.4) mg/dL Estim Creat Clear Calc 80.6 Estimated GFR > 60 Random Glucose 121 H (60-115) mg/dL Lactic Acid (0.5-2.0) mmol/L Calcium 9.0 D (8.4-10.2) mg/dL COVID-19 ([facility]) Negative (Negative) COVID-19 Clin Com See Note 03/30/22 Range/Units 23:13 WBC (4.8-10.8) X10*3/uL RBC (4.20-5.50) X10*6/uL Hgb (12.0-16.0) g/dl Hct (37.0-47.0) % MCV (80.0-98.0) fL MCH (27.0-33.0) pg MCHC (31.0-35.0) g/dl RDW (11.0-16.0) % Plt Count (160-400) X10*3/uL MPV (9.4-12.3) fL Immature Gran % (Auto) (0.0-0.4) % Neut % (Auto) (45-73) % Lymph % (Auto) (20-40) % [place] % (Auto) (2-11) % Eos % (Auto) (0-4) % Baso % (Auto) (0-2) % Lymph # (Auto) (1.2-4.9) X10*3/uL [place] # (Auto) (0.1-1.2) X10*3/uL Eos # (Auto) (0.0-0.4) X10*3/uL Baso # (Auto) (0.0-0.2) X10*3/uL Abs Immat Gran (auto) (0.00-0.03) X10*3/uL Absolute Neuts (auto) (2.0-8.3) x10*3/uL Absolute Nucleated RBC (0.0-0.012) X10*3/uL Nucleated RBC % (auto) (0.0-0.2) /100WBC Sodium (135-145) mmol/L Potassium (3.3-5.1) mmol/L Chloride (96-108) mmol/L Carbon Dioxide (22-29) mmol/L Anion Gap (12-20) BUN (9-16) mg/dL Creatinine (0.5-1.4) mg/dL Estim Creat Clear Calc Estimated GFR Random Glucose (60-115) mg/dL Lactic Acid 0.8 (0.5-2.0) mmol/L Calcium (8.4-10.2) mg/dL COVID-19 ([facility]) (Negative) COVID-19 Clin Com Discharge Plan Discharge Clinical Impression: Cellulitis of right lower leg Patient Disposition: Admitted As Inpatient
[2022-03-30 23:32] LABS: Lactic Acid 0.8 mmol/L (0.5-2.0)
[2022-03-30 23:38] LABS: COVID-19 Test Negative (Negative); IDNOW Serial# 16C4AD1C
[2022-03-30] MEDS: Piperacillin Sodium/Tazobactam 3.375 GM in 0.9 % Sodium Chloride 50 ML IV (23:53)
[2022-03-30 23:59] VITALS: BP 111/56; PULSE 74; RESP 18; TEMP 36.3; O2SAT 95
[2022-03-31] MEDS: vancomycin HCL 1,000 MG in 0.9 % Sodium Chloride 250 ML 270 MG IV ×2 (00:31→13:55)
[2022-03-31 03:25] VITALS: BP 122/60; PULSE 82; RESP 19; O2SAT 95
--- NOTE | 2022-03-31 05:39 | P.HPHOSP_ITS ---
History of Present Illness Date of Service: 03/31/22 Chief Complaint: Right leg pain redness and swelling 49-year-old female with a past medical history of hypertension, hyperlipidemia, CVA with residual mild left-sided weakness, hypothyroidism fibromyalgia, rheumatoid arthritis, mixed connective tissue disorder, peripheral vascular disease, history of COVID-19 pneumonia/ARDS, history of right leg cellulitis; pr esented to the hospital today with a chief complaint of pain redness and swelling of the right lower extremity. Patient reports that she has intermittent episodes of cellulitis of the leg; but over the past 2 days she has been having increased pain redness and swelling of her right leg compared to the left leg; also mentioned that she was recently on p.o. doxycycline with no significant improvement in her cellulitis symptoms. Hence decided to come to the ER for further evaluation. Patient also reports to have cough. Denies any diarrhea. Denies any chest pain or palpitations. Denies any shortness of breath. Denies any numbness tingling or focal weakness. Review of all other systems is negative except mentioned above ER course: Per ER team patient noted to have right lower extremity tender and swollen concerning for cellulitis; given antibiotics. Also obtain venous duplex which was negative for any DVT. Admitted to the hospital for further management. [facility] Medical History C. difficile colitis Cellulitis Cellulitis of right leg COPD (chronic obstructive pulmonary disease) CVA (cerebral vascular accident) Fibromyalgia Hypothyroid Immunosuppression due to chronic steroid use Lupus Mixed connective tissue disease PAD (peripheral artery disease) Pneumonia due to COVID-19 virus Proteinuria Redness and swelling of lower leg Respiratory failure with hypoxia Rheumatoid arthritis Secondary bacterial pneumonia Varicose veins of right lower extremity with inflammation Family History Father No problems noted. Mother Lung cancer Surgical History History of breast lump/mass excision History of bunionectomy History of cholecystectomy History of excision of mass History of partial hysterectomy Social History Household Members: Children Housing: House Do you presently have visiting nurse or other home services: No Alcohol intake: never Patient Tobacco Use Status: Former Tobacco user Quit Date: 03/2022 Tobacco use type: Cigarette Cigarette Packs Per Day: 1 Cigarettes Per Day: 20.0 Years Smoked: 29 Second Hand Smoke Exposure: No Advance Directives Date on File: 11/26/21 service: No Current occupational status: unemployed and disabled Meds Allergies Allergy/AdvReac Type Severity Reaction Status Date / Time clarithromycin Allergy Intermediate FACIAL Verified 02/15/22 17:08 [CLARITHROMYCIN] SWELLING/REDNESS, facial rash, facial rash, facial rash, facial rash Active Medications: Current Medications Acetaminophen/Butalbital/Caffeine (Butalb/Acetamin/Caff 50/325/40 Tablet) 2 tab PO DAILY PRN PRN Reason: headache Albuterol Sulfate (Albuterol Sulfate (0.083%) 2.5 Mg/3 Ml Vial.Neb) 2.5 mg INHALE Q6H PRN PRN Reason: Shortness Of Breath Or Wheezing Albuterol Sulfate (Albuterol Sulfate 90 Mcg 8 Gm Inhaler) 2 puff INHALE Q4H PRN PRN Reason: Shortness Of Breath Or Wheezing Albuterol/Ipratropium (Albuterol/Iprat 2.5/0.5mg 3 Ml Ampul.Neb) 3 ml INHALE RQ4H PRN PRN Reason: Shortness of Breath/Wheezing Apixaban (Apixaban 5 Mg Tablet) 5 mg PO BID [place] Fluoxetine HCl (Fluoxetine Hcl 20 Mg Capsule) 20 mg PO DAILY [place] Folic Acid (Folic Acid 1 Mg Tablet) 1 mg PO DAILY [place] Hydroxychloroquine Sulfate (Hydroxychloroquine Sulfate 200 Mg Tablet) 200 mg PO BID [place] Vancomycin HCl 1,000 mg/ (Sodium Chloride) 270 mls @ 270 mls/hr IV Q12H [place] Levothyroxine Sodium (Levothyroxine Sodium 175 Mcg Tablet) 175 mcg PO DAILY [place] Loratadine (Loratadine 10 Mg Tablet) 10 mg PO DAILY [place] Lorazepam (Lorazepam 1 Mg Tablet) 1 mg PO BID PRN PRN Reason: Anxiety Multivitamins/Vitamin C (Multivitamin Tablet) 1 tab PO DAILY [place] Non-Formulary Medication (Bupropion Hcl) 100 mg PO BID [place] Non-Formulary Medication (Fluticasone Propionate [Flovent Hfa]) 1 puff INHALE BID [place] Nortriptyline HCl (Nortriptyline Hcl 25 Mg Capsule) 100 mg PO BEDTIME [facility] Pharmacy Consult (Consult Rx Vancomycin Dosing) 1 each MISCELLANE DAILY PRN PRN Reason: Consult order Pharmacy Consult (Consult Rx Vancomycin Dosing) 1 each MISCELLANE DAILY PRN PRN Reason: Consult order Pravastatin Sodium (Pravastatin Sodium 40 Mg Tablet) 40 mg PO BEDTIME [place] Prednisone (Prednisone 5 Mg Tablet) 5 mg PO DAILY [facility] Sulfasalazine (Sulfasalazine 500 Mg Tablet) 500 mg PO BID [facility] Home Medications Medication Instructions Recorded Confirmed Last Taken Type lorazepam 1 mg tablet 1 mg PO BID PRN Anxiety 08/15/20 05/24/22 08/30/20 History pravastatin 40 mg tablet 40 mg PO BEDTIME 08/15/20 05/24/22 08/30/20 History fluoxetine 40 mg capsule (Prozac) 20 mg PO DAILY 08/20/20 05/24/22 08/30/20 History albuterol sulfate 2.5 mg/3 mL 2.5 mg inhalation Q6H PRN 08/31/20 05/24/22 08/30/20 History (0.083 %) solution for nebulization Shortness Of Breath Or Wheezing albuterol sulfate 90 mcg/actuation 2 puff inhalation Q4H PRN 08/31/20 05/24/22 08/30/20 History aerosol inhaler Shortness Of Breath Or Wheezing bupropion HCl 100 mg tablet,12 hr 100 mg PO BID 08/31/20 05/24/22 08/30/20 History sustained-release prednisone 5 mg tablet 5 mg PO DAILY 08/31/20 05/24/22 08/30/20 History nortriptyline 75 mg capsule 100 mg PO BEDTIME 04/18/21 05/24/22 Unknown History apixaban 5 mg tablet 5 mg PO BID 10/21/21 05/24/22 Unknown History fluticasone propionate 220 1 puff inhalation BID 10/21/21 05/24/22 Unknown History mcg/actuation HFA aerosol inhaler (Flovent HFA) levothyroxine 175 mcg tablet 175 mcg PO DAILY 10/21/21 05/24/22 Unknown History loratadine 10 mg tablet 10 mg PO DAILY 10/21/21 05/24/22 Unknown History multivitamin 1 tab PO DAILY 10/21/21 05/24/22 Unknown History sulfasalazine 500 mg tablet 500 mg PO BID 10/21/21 05/24/22 Unknown History nebulizer and compressor (Vios #1 ea 02/15/22 05/24/22 Unknown History Aerosol Delivery System) famotidine 20 mg tablet 1 tab PO DAILY 05/24/22 05/24/22 Unknown History Physical Exam Vital Signs and Narrative: Vital Signs: Last Vital Signs Temp 97.4 F 03/30/22 23:59 Pulse 82 03/31/22 03:25 Resp 19 03/31/22 03:25 BP 122/60 03/31/22 03:25 Pulse Ox 95 03/31/22 03:25 Oxygen Flow Rate 2 03/30/22 11:53 BMI result Body Mass Index 26.4 Gen: Appears be in no acute distress HEENT: NCAT, Moist mucosa. Pulmonary: Vesicular breath sounds, fair air entry CVS: Normal S1-S2 Abdomen: BS+, Soft, Nontender Extremities: Warm well perfused; right leg is warm, tender, swollen. Erythematous. Neuro: Alert and awake. Results Labs CBC and Chem 7: 04/01/22 06:52 04/02/22 11:11 Labs: Laboratory Results - last 24 hr 03/30/22 03/30/22 03/30/22 12:22 12:22 23:13 MCV 79.0 L MCH 25.3 L MCHC 32.0 RDW 14.2 Plt Count 259 MPV 8.6 L Immature Gran % (Auto) 0.7 H Neut % (Auto) 80.0 H Lymph % (Auto) 12.9 L [place] % (Auto) 4.2 Eos % (Auto) 1.5 Baso % (Auto) 0.7 Lymph # (Auto) 1.4 [place] # (Auto) 0.5 Eos # (Auto) 0.2 Baso # (Auto) 0.1 Abs Immat Gran (auto) 0.08 H Absolute Neuts (auto) 8.6 H Absolute Nucleated RBC 0.000 Nucleated RBC % (auto) 0.0 Anion Gap 10 L Estim Creat Clear Calc 80.6 Estimated GFR > 60 Random Glucose 121 H Lactic Acid Calcium 9.0 D COVID-19 ([facility]) Negative COVID-19 Clin Com See Note 03/30/22 23:13 MCV MCH MCHC RDW Plt Count MPV Immature Gran % (Auto) Neut % (Auto) Lymph % (Auto) [place] % (Auto) Eos % (Auto) Baso % (Auto) Lymph # (Auto) [place] # (Auto) Eos # (Auto) Baso # (Auto) Abs Immat Gran (auto) Absolute Neuts (auto) Absolute Nucleated RBC Nucleated RBC % (auto) Anion Gap Estim Creat Clear Calc Estimated GFR Random Glucose Lactic Acid 0.8 Calcium COVID-19 ([facility]) COVID-19 Clin Com Imaging Radiologist's Impressions: Impressions Tibia/Fibula X-Ray 03/30/22 22:34 IMPRESSION: No subcutaneous air is seen. Probable edema in the subcutaneous fat Venous Duplex 03/30/22 22:48 IMPRESSION: No DVT demonstrated in the right lower extremity. Assessment and Plan (1) Cellulitis of right lower leg: Status: Resolved Plan 49-year-old female with a past medical history of hypertension, hyperlipidemia, CVA with residual mild left-sided weakness, COPD, hypothyroidism fibromyalgia, anxiety, depression, rheumatoid arthritis, mixed connective tissue disorder, peripheral vascular disease, history of COVID-19 pneumonia/ARDS, history of right leg cellulitis; presented to the hospital today with a chief complaint of pain redness and swelling of the right lower extremity. Noted to have right lower extremity cellulitis. Admitted for further management. Right leg cellulitis: Continue vancomycin Id consult for further recommendations Patient failed outpatient oral antibiotic therapy Venous duplex negative Will obtain nonvascular ultrasound to rule out abscess. History of hypertension/hyperlipidemia: Continue home medications History of COPD: Stable. Kali p.r.n. History of hypothyroidism: Continue home levothyroxine History of rheumatoid arthritis: Continue home prednisone/hydroxychloroquine History of anxiety/depression: Continue home Ativan, fluoxetine, bupropion History of CVA/peripheral vascular disease: Patient on Eliquis. DVT prophylaxis: Patient on Eliquis Code status: Full code Quality Stroke Does the patient have a stroke diagnosis?: No VTE Prior VTE?: No VTE Risk Level:: Medical - moderate - high VTE Device Contraindication: Treatment Not Indicated VTE Drug Contraindication: N/A - Med Ordered
[2022-03-31 06:39] VITALS: BP 120/58; PULSE 88; RESP 14; O2SAT 98
--- NOTE | 2022-03-31 06:39 | PC.NURSE ---
Called pharmacy to re-time Vancomycin. Last dose given at 0100 and next dose for q12h is 1300 and not 0500. Per pharmacy, will look over it and hold the 0500 dose for now.
[2022-03-31] MEDS: Loratadine 10 MG TABLET PO (09:53)
[2022-03-31] MEDS: 0.9 % Sodium Chloride Flush 3 ML SYRINGE IVFLUSH ×2 (09:53→15:49)
[2022-03-31] MEDS: predniSONE 5 MG TABLET PO (09:53)
[2022-03-31] MEDS: Folic Acid 1 MG TABLET PO (09:53)
[2022-03-31] MEDS: Multivitamin TABLET 1 TAB PO (09:53)
[2022-03-31] MEDS: FLUoxetine HCl 20 MG CAPSULE PO (09:53)
[2022-03-31] MEDS: Apixaban 5 MG TABLET PO ×2 (09:53→23:37)
[2022-03-31] MEDS: Hydroxychloroquine Sulfate 200 MG TABLET PO ×2 (10:46→23:37)
[2022-03-31] MEDS: sulfaSALAzine 500 MG TABLET PO (10:46)
--- NOTE | 2022-03-31 11:06 | PM.EVENT ---
Event Note Date of Service: 03/31/22 Event Note: I saw and examined the patient, a/p per H and P from this morning.
--- NOTE | 2022-03-31 12:32 | PHA.PROG ---
Admission Date/Time: March 31, 2022 05:38 Indication: Weight in k.503 kg Adjusted body weight in [place] body weight in K.8 Serum Creatinine - Last 168 Hours 03/30/22 12:22 Creatinine 0.76 Estimated CrCl and GFR - Last 168 Hours 03/30/22 12:22 Estim Creat Clear Calc 80.6 Estimated GFR > 60 Vancomycin Loading Dose: 1000 Current Vancomycin Dosing Regimen: 100 q 12 Vancomycin Monitoring using AUC goal of 400 - 600 range with trough as surrogate marker: 531 Date and Time for next Vancomycin Level to be drawn: 04/01 @ 1100 Pharmacist Comments on Vancomycin Plan: Vancomycin dosing will take advantage of [employer] as a clinical decision support tool that uses Bayesian modeling to calculate individual patient's pharmacokinetic parameters and forecast the patient's drug concentration time course with the target goal AUC 24 range of 400 - 600 mg/L/hr.
[2022-03-31 15:06] VITALS: BP 114/56; PULSE 83; RESP 14; TEMP 37.2; O2SAT 97
--- NOTE | 2022-03-31 15:43 | MHC.CM.PN ---
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
--- NOTE | 2022-03-31 20:07 | PC.NURSE ---
nursing report given to Monica JAMES at [facility]. Pt transported to overflow.
--- NOTE | 2022-03-31 23:27 | W.PM.IDCN ---
History of Present Illness Data of Consult Service Date: 03/31/22 Requesting physician: Jose Gerardo Primary Care Provider: Barbie Brown MD HPI Reason for consult: right leg redness She has redness leg off and on for two months. SHe has been on Doxycycline po. SHe has no fever or chills. Review of Systems Review of Systems: Yes all other systems are reviewed and are negative [facility] Past Medical History Medical History (Updated 03/31/22 @ 23:30 by Karen Tabor MD) C. difficile colitis Cellulitis Cellulitis of right leg COPD (chronic obstructive pulmonary disease) CVA (cerebral vascular accident) Fibromyalgia Hypothyroid Immunosuppression due to chronic steroid use Lupus Mixed connective tissue disease PAD (peripheral artery disease) Pneumonia due to COVID-19 virus Proteinuria Redness and swelling of lower leg Respiratory failure with hypoxia Rheumatoid arthritis Secondary bacterial pneumonia Varicose veins of right lower extremity with inflammation Family History Family History Father No problems noted. Mother Lung cancer Surgical History Surgical History History of breast lump/mass excision History of bunionectomy History of cholecystectomy History of excision of mass History of partial hysterectomy Social History Social History Household Members: Children Housing: House Do you presently have visiting nurse or other home services: Yes (mult[employer] manager[employer]) Alcohol intake: never Patient Tobacco Use Status: Former Tobacco user Tobacco use type: Cigarette Cigarette Packs Per Day: 1 Cigarettes Per Day: 20.0 Years Smoked: 29 Second Hand Smoke Exposure: No Advance Directives: Yes Advance Directives on File: Yes Advance Directives Date on File: 11/26/21 service: No Current occupational status: unemployed and disabled Meds Allergies Allergy/AdvReac Type Severity Reaction Status Date / Time clarithromycin Allergy Intermediate FACIAL Verified 02/15/22 17:08 [CLARITHROMYCIN] SWELLING/REDNESS, facial rash, facial rash, facial rash, facial rash Active Medications: Current Medications Acetaminophen (Acetaminophen 325 Mg Tablet) 650 mg PO Q6H PRN PRN Reason: Pain, Mild (Pain Scale 1-3) Acetaminophen/Butalbital/Caffeine (Butalb/Acetamin/Caff 50/325/40 Tablet) 2 tab PO DAILY PRN PRN Reason: headache Albuterol Sulfate (Albuterol Sulfate (0.083%) 2.5 Mg/3 Ml Vial.Neb) 2.5 mg INHALE Q6H PRN PRN Reason: Shortness Of Breath Or Wheezing Albuterol Sulfate (Albuterol Sulfate 90 Mcg 8 Gm Inhaler) 2 puff INHALE Q4H PRN PRN Reason: Shortness Of Breath Or Wheezing Albuterol/Ipratropium (Albuterol/Iprat 2.5/0.5mg 3 Ml Ampul.Neb) 3 ml INHALE RQ4H PRN PRN Reason: Shortness of Breath/Wheezing Apixaban (Apixaban 5 Mg Tablet) 5 mg PO BID [facility] Last Admin: 03/31/22 09:53 Dose: 5 mg Documented by: Bupropion HCl (Bupropion Hcl Xl 150 Mg Tab.Er.24h) 150 mg PO DAILY [facility] Fluoxetine HCl (Fluoxetine Hcl 20 Mg Capsule) 20 mg PO DAILY [facility] Last Admin: 03/31/22 09:53 Dose: 20 mg Documented by: Fluticasone Propionate (Fluticasone Propionate 100 Mcg Blst.W.Dev) 1 puff INHALE RBID [facility] Last Admin: 03/31/22 19:11 Dose: Not Given Documented by: Folic Acid (Folic Acid 1 Mg Tablet) 1 mg PO DAILY [facility] Last Admin: 03/31/22 09:53 Dose: 1 mg Documented by: Hydroxychloroquine Sulfate (Hydroxychloroquine Sulfate 200 Mg Tablet) 200 mg PO BID [facility] Last Admin: 03/31/22 10:46 Dose: 200 mg Documented by: Vancomycin HCl 1,000 mg/ (Sodium Chloride) 270 mls @ 270 mls/hr IV Q12H [facility] Last Infusion: 03/31/22 15:01 Dose: Infused Documented by: Levothyroxine Sodium (Levothyroxine Sodium 175 Mcg Tablet) 175 mcg PO DAILY@0600 [facility] Last Admin: 03/31/22 06:50 Dose: Not Given Documented by: Loratadine (Loratadine 10 Mg Tablet) 10 mg PO DAILY [facility] Last Admin: 03/31/22 09:53 Dose: 10 mg Documented by: Lorazepam (Lorazepam 1 Mg Tablet) 1 mg PO BID PRN PRN Reason: Anxiety Melatonin (Melatonin 3 Mg Tablet) 6 mg PO BEDTIME PRN PRN Reason: Insomnia Multivitamins/Vitamin C (Multivitamin Tablet) 1 tab PO DAILY [facility] Last Admin: 03/31/22 09:53 Dose: 1 tab Documented by: Nortriptyline HCl (Nortriptyline Hcl 25 Mg Capsule) 100 mg PO BEDTIME [facility] Pharmacy Consult (Consult Rx Vancomycin Dosing) 1 each MISCELLANE DAILY PRN PRN Reason: Consult order Pharmacy Consult (Consult Rx Vancomycin Dosing) 1 each MISCELLANE DAILY PRN PRN Reason: Consult order Pravastatin Sodium (Pravastatin Sodium 40 Mg Tablet) 40 mg PO BEDTIME [facility] Prednisone (Prednisone 5 Mg Tablet) 5 mg PO DAILY [facility] Last Admin: 03/31/22 09:53 Dose: 5 mg Documented by: Senna (Sennosides 8.6 Mg Tablet) 17.2 mg PO BEDTIME PRN PRN Reason: Constipation Sodium Chloride (0.9 % Sodium Chloride Flush 3 Ml Syringe) 3 ml IVFLUSH QSHIFT [facility] Last Admin: 03/31/22 15:49 Dose: 3 ml Documented by: Sulfasalazine (Sulfasalazine 500 Mg Tablet) 500 mg PO BID [facility] Last Admin: 03/31/22 10:46 Dose: 500 mg Documented by: Home Medications Medication Instructions Recorded Confirmed Last Taken Type lorazepam 1 mg tablet 1 mg PO BID PRN 08/15/20 03/31/22 08/30/20 History pravastatin 40 mg tablet 40 mg PO BEDTIME 08/15/20 03/31/22 08/30/20 History fluoxetine 40 mg capsule (Prozac) 20 mg PO DAILY 08/20/20 03/31/22 08/30/20 History albuterol sulfate 2.5 mg INHALATION Q6H PRN 08/31/20 03/31/22 08/30/20 History albuterol sulfate 90 mcg/actuation 2 puff INHALATION Q4H PRN 08/31/20 03/31/22 08/30/20 History aerosol inhaler bupropion HCl 100 mg tablet,12 hr 100 mg PO BID 08/31/20 03/31/22 08/30/20 History sustained-release [id number]-[id number] 2 tab PO DAILY PRN 08/31/20 03/31/22 08/30/20 History 50 mg-325 mg-40 mg tablet prednisone 5 mg tablet 5 mg PO DAILY 08/31/20 03/31/22 08/30/20 History nortriptyline 75 mg capsule 100 mg PO BEDTIME 04/18/21 03/31/22 Unknown History apixaban 5 mg tablet 5 mg PO BID 10/21/21 03/31/22 Unknown History fluticasone propionate 220 1 puff INHALATION BID 10/21/21 03/31/22 Unknown History mcg/actuation HFA aerosol inhaler (Flovent HFA) levothyroxine 175 mcg tablet 175 mcg PO DAILY 10/21/21 03/31/22 Unknown History loratadine 10 mg tablet 10 mg PO DAILY 10/21/21 03/31/22 Unknown History multivitamin 1 tab PO DAILY 10/21/21 03/31/22 Unknown History sulfasalazine 500 mg tablet 500 mg PO BID 10/21/21 03/31/22 Unknown History nebulizer and compressor (Vios #1 ea 02/15/22 Unknown History Aerosol Delivery System) Physical Exam Vital Signs: Vital Signs: Last Vital Signs Temp 98.9 F 03/31/22 15:06 Pulse 83 03/31/22 15:06 Resp 14 03/31/22 15:06 BP 114/56 L 03/31/22 15:06 Pulse Ox 97 03/31/22 15:06 Oxygen Flow Rate 2 03/30/22 11:53 BMI result Body Mass Index 26.4 Const: General: cooperative HEENT: Head: Yes normal to inspection Mouth: Normal oral and palatal mucosa present Resp: Effort & Inspection: normal respiratory effort Cardio: Rate: regular rate Rhythm: regular rhythm GI: Palpation (GI): Soft to palpation and nontender Extrem: Other: right leg redness knee to ankle Results Labs CBC & Chem 7: 03/30/22 12:22 03/30/22 12:22 Assessment and Plan (1) Redness and swelling of lower leg: Status: 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
[2022-03-31] MEDS: Pravastatin Sodium 40 MG TABLET PO (23:37)
[2022-03-31] MEDS: Nortriptyline HCl 25 MG CAPSULE 100 MG PO (23:37)
[2022-04-01] MEDS: vancomycin HCL 1,000 MG in 0.9 % Sodium Chloride 250 ML 270 MG IV ×2 (01:35→13:05)
[2022-04-01 05:31] VITALS: BP 116/53; PULSE 93; RESP 16; O2SAT 95
[2022-04-01] MEDS: Acetaminophen 325 MG TABLET 650 MG PO ×2 (05:39→15:05)
[2022-04-01 06:00] VITALS: BP 110/51; PULSE 86; RESP 18; TEMP 36.9
[2022-04-01 06:59] LABS: MANUAL DIFF FLAG NO
[2022-04-01 07:06] LABS: Basophils Absolute Auto 0.1 X10*3/uL (0.0-0.2); Basophils Percent Auto 0.7 % (0-2); Eosinophils Absolute Auto 0.5 X10*3/uL (0.0-0.4); Eosinophils Percent Auto 7.3 % (0-4); Hematocrit 26.4 % (37.0-47.0); Hemoglobin 8.1 g/dl (12.0-16.0); Imm Gran Abs Auto 0.02 X10*3/uL (0.00-0.03); Imm Gran Pct Auto 0.3 % (0.0-0.4); Lymphocytes Absolute Auto 1.1 X10*3/uL (1.2-4.9); Lymphocytes Percent Auto 16.3 % (20-40); Mean Corpuscular HGB Conc 30.7 g/dl (31.0-35.0); Mean Corpuscular Hemoglobin 25.2 pg (27.0-33.0); Mean Platelet Volume 8.9 fL (9.4-12.3); Monocytes Absolute Auto 0.6 X10*3/uL (0.1-1.2); Monocytes Percent Auto 9.2 % (2-11); Neutrophils Absolute Auto 4.6 x10*3/uL (2.0-8.3); Neutrophils Percent Auto 66.2 % (45-73); Platelet Count 228 X10*3/uL (160-400); Red Blood Count 3.22 X10*6/uL (4.20-5.50); Red Cell Distribution Width 14.6 % (11.0-16.0)
[2022-04-01 07:31] LABS: Anion Gap 7 (12-20); Blood Urea Nitrogen 10 mg/dL (9-16); Calcium 8.4 mg/dL (8.4-10.2); Carbon Dioxide 30 mmol/L (22-29); Chloride 104 mmol/L (96-108); Creatinine Clr Calc Pharmacy 97.2; Estimated Glomerular Filt Rate > 60; Glucose Random 97 mg/dL (60-115); Potassium 3.8 mmol/L (3.3-5.1); Sodium 137 mmol/L (135-145)
[2022-04-01] MEDS: Multivitamin TABLET 1 TAB PO (08:12)
[2022-04-01] MEDS: Apixaban 5 MG TABLET PO ×2 (08:12→20:33)
[2022-04-01] MEDS: Folic Acid 1 MG TABLET PO (08:12)
[2022-04-01] MEDS: Hydroxychloroquine Sulfate 200 MG TABLET PO ×2 (08:12→20:34)
[2022-04-01] MEDS: FLUoxetine HCl 20 MG CAPSULE PO (08:12)
[2022-04-01] MEDS: Loratadine 10 MG TABLET PO (08:12)
[2022-04-01] MEDS: 0.9 % Sodium Chloride Flush 3 ML SYRINGE IVFLUSH ×2 (08:18→15:08)
[2022-04-01] MEDS: Fluticasone Propionate 100 MCG BLST.W.DEV 1 PUFF INHALE ×2 (09:04→20:30)
[2022-04-01 09:05] VITALS: PULSE 93; RESP 18; O2SAT 96
[2022-04-01] MEDS: predniSONE 5 MG TABLET PO (10:39)
[2022-04-01] MEDS: buPROPion HCl XL 150 MG TAB.ER.24H PO (10:39)
[2022-04-01 11:36] LABS: Vancomycin Trough 14.7 mcg/mL (10.0-20.0)
[2022-04-01 13:32] VITALS: BP 115/52; PULSE 82; RESP 20; TEMP 36.7
--- NOTE | 2022-04-01 18:09 | P.PNIM_ITS ---
Subjective Subjective Date of Service: 04/02/22 Interval History: f/u on cellulitis of the leg redness and swelling better Review of Systems no fever, no pain Physical Exam Vital Signs: Vital Signs: Last Vital Signs Temp 98.1 F 04/01/22 13:32 Pulse 82 04/01/22 13:32 Resp 20 04/01/22 13:32 BP 115/52 L 04/01/22 13:32 Pulse Ox 95 04/01/22 05:31 Oxygen Flow Rate 2 03/30/22 11:53 BMI result Body Mass Index 26.4 Const: Other: General: AO X 3, no acute distress Resp: CTA bilateral CVS: S1,S2,RRR GI: +BS, NT, no distention Skin: No rash, some swelling and redness of right leg, less so on left Neuro: motor grossly intact Psych: appropriate affect Objective Data Active Medications Acetaminophen (Acetaminophen 325 Mg Tablet) 650 mg PO Q6H PRN PRN Reason: Pain, Mild (Pain Scale 1-3) Last Admin: 04/01/22 15:05 Dose: 650 mg Documented by: SUPRIYA Acetaminophen/Butalbital/Caffeine (Butalb/Acetamin/Caff 50/325/40 Tablet) 2 tab PO DAILY PRN PRN Reason: headache Albuterol Sulfate (Albuterol Sulfate (0.083%) 2.5 Mg/3 Ml Vial.Neb) 2.5 mg INHALE Q6H PRN PRN Reason: Shortness Of Breath Or Wheezing Albuterol Sulfate (Albuterol Sulfate 90 Mcg 8 Gm Inhaler) 2 puff INHALE Q4H PRN PRN Reason: Shortness Of Breath Or Wheezing Albuterol/Ipratropium (Albuterol/Iprat 2.5/0.5mg 3 Ml Ampul.Neb) 3 ml INHALE RQ4H PRN PRN Reason: Shortness of Breath/Wheezing Apixaban (Apixaban 5 Mg Tablet) 5 mg PO BID COUNT [facility] Last Admin: 04/01/22 08:12 Dose: 5 mg Documented by: SUPRIYA Bupropion HCl (Bupropion Hcl Xl 150 Mg Tab.Er.24h) 150 mg PO DAILY [facility] Last Admin: 04/01/22 10:39 Dose: 150 mg Documented by: SUPRIYA Fluoxetine HCl (Fluoxetine Hcl 20 Mg Capsule) 20 mg PO DAILY COUNT [facility] Last Admin: 04/01/22 08:12 Dose: 20 mg Documented by: SUPRIYA Fluticasone Propionate (Fluticasone Propionate 100 Mcg Blst.W.Dev) 1 puff INHALE RBID COUNT [facility] Last Admin: 04/01/22 09:04 Dose: 1 puff Documented by: SAMIR Folic Acid (Folic Acid 1 Mg Tablet) 1 mg PO DAILY COUNT [facility] Last Admin: 04/01/22 08:12 Dose: 1 mg Documented by: SUPRIYA Hydroxychloroquine Sulfate (Hydroxychloroquine Sulfate 200 Mg Tablet) 200 mg PO BID COUNT [facility] Last Admin: 04/01/22 08:12 Dose: 200 mg Documented by: SUPRIYA Vancomycin HCl 1,000 mg/ (Sodium Chloride) 270 mls @ 270 mls/hr IV Q12H COUNT [facility] Last Infusion: 04/01/22 15:10 Dose: 0 mls/hr Documented by: SUPRIYA Levothyroxine Sodium (Levothyroxine Sodium 175 Mcg Tablet) 175 mcg PO DAILY@0600 COUNT [facility] Last Admin: 04/01/22 05:41 Dose: Not Given Documented by: RAMOS Non-Admin Reason: Med Not Available Loratadine (Loratadine 10 Mg Tablet) 10 mg PO DAILY COUNT [facility] Last Admin: 04/01/22 08:12 Dose: 10 mg Documented by: SUPRIYA Lorazepam (Lorazepam 1 Mg Tablet) 1 mg PO BID PRN PRN Reason: Anxiety Melatonin (Melatonin 3 Mg Tablet) 6 mg PO BEDTIME PRN PRN Reason: Insomnia Multivitamins/Vitamin C (Multivitamin Tablet) 1 tab PO DAILY COUNT [facility] Last Admin: 04/01/22 08:12 Dose: 1 tab Documented by: SUPRIYA Nortriptyline HCl (Nortriptyline Hcl 25 Mg Capsule) 100 mg PO BEDTIME COUNT [facility] Last Admin: 03/31/22 23:37 Dose: 100 mg Documented by: RAMOS Pharmacy Consult (Consult Rx Vancomycin Dosing) 1 each MISCELLANE DAILY PRN PRN Reason: Consult order Pharmacy Consult (Consult Rx Vancomycin Dosing) 1 each MISCELLANE DAILY PRN PRN Reason: Consult order Pravastatin Sodium (Pravastatin Sodium 40 Mg Tablet) 40 mg PO BEDTIME COUNT [facility] Last Admin: 03/31/22 23:37 Dose: 40 mg Documented by: RAMOS Prednisone (Prednisone 5 Mg Tablet) 5 mg PO DAILY COUNT [facility] Last Admin: 04/01/22 10:39 Dose: 5 mg Documented by: SUPRIYA Senna (Sennosides 8.6 Mg Tablet) 17.2 mg PO BEDTIME PRN PRN Reason: Constipation Sodium Chloride (0.9 % Sodium Chloride Flush 3 Ml Syringe) 3 ml IVFLUSH QSHIFT COUNT [facility]CLUD[facility] Last Admin: 04/01/22 15:08 Dose: 3 ml Documented by: SUPRIYA Sulfasalazine (Sulfasalazine 500 Mg Tablet) 500 mg PO BID COUNT [facility] Last Admin: 04/01/22 10:40 Dose: Not Given Documented by: SUPRIYA Non-Admin Reason: Med Not Available Labs CBC & Chem 7: 04/01/22 06:52 04/01/22 06:52 Labs: Laboratory Results - last 24 hr 04/01/22 04/01/22 04/01/22 06:52 06:52 11:00 MCV 82.0 MCH 25.2 L MCHC 30.7 L RDW 14.6 Plt Count 228 MPV 8.9 L Immature Gran % (Auto) 0.3 Neut % (Auto) 66.2 Lymph % (Auto) 16.3 L [place] % (Auto) 9.2 Eos % (Auto) 7.3 H Baso % (Auto) 0.7 Lymph # (Auto) 1.1 L [place] # (Auto) 0.6 Eos # (Auto) 0.5 H Baso # (Auto) 0.1 Abs Immat Gran (auto) 0.02 Absolute Neuts (auto) 4.6 Absolute Nucleated RBC 0.000 Nucleated RBC % (auto) 0.0 Anion Gap 7 L Estim Creat Clear Calc 97.2 Estimated GFR > 60 Random Glucose 97 Calcium 8.4 D Vancomycin Trough 14.7 Microbiology Microbiology Results: Microbiology 03/30/22 23:40 Blood Culture - Preliminary Blood - Venous No growth after 24 hours. 03/30/22 23:13 Blood Culture - Preliminary Blood - Venous No growth after 24 hours. Assessment and Plan (1) Redness and swelling of lower leg: Status: Acute Plan 49-year-old female with a past medical history of hypertension, hyperlipidemia, CVA with residual mild left-sided weakness, COPD, hypothyroidism fibromyalgia, anxiety, depression, rheumatoid arthritis, mixed connective tissue disorder, peripheral vascular disease, history of COVID-19 pneumonia/ARDS, history of right leg cellulitis; presented to the hospital today with a chief complaint of pain redness and swelling of the right lower extremity.? Noted to have right lower extremity cellulitis.? Admitted for further management.? Right leg cellulitis: Continue vancomycin ID recommendation: Continue Vancomycin If not better in 3 days biopsy skin If better IV Vancomycin 5-7 d likely History of hypertension/hyperlipidemia: Continue home medications History of COPD:? Stable.? DuoNebs p.r.n. History of hypothyroidism:? Continue home levothyroxine History of rheumatoid arthritis: Continue home prednisone/hydroxychloroquine History of anxiety/depression: Continue home Ativan, fluoxetine, bupropion History of CVA/peripheral vascular disease:? Patient on Eliquis. Quality Stroke Does the patient have a stroke diagnosis?: No VTE Prior VTE?: No VTE Risk Level:: Medical - moderate - high VTE Device Contraindication: Treatment Not Indicated VTE Drug Contraindication: N/A - Med Ordered
[2022-04-01 20:30] VITALS: PULSE 82; RESP 20
[2022-04-01] MEDS: Pravastatin Sodium 40 MG TABLET PO (20:33)
[2022-04-01] MEDS: Nortriptyline HCl 25 MG CAPSULE 100 MG PO (20:34)
[2022-04-01] MEDS: sulfaSALAzine 500 MG TABLET PO (20:34)
[2022-04-02 00:06] VITALS: BP 114/60; PULSE 84; RESP 14; TEMP 36.2; O2SAT 96
[2022-04-02] MEDS: 0.9 % Sodium Chloride Flush 3 ML SYRINGE IVFLUSH ×2 (00:09→08:47)
[2022-04-02] MEDS: vancomycin HCL 1,000 MG in 0.9 % Sodium Chloride 250 ML 270 MG IV (00:14)
[2022-04-02] MEDS: Levothyroxine Sodium 175 MCG TABLET PO (06:21)
[2022-04-02] MEDS: Fluticasone Propionate 100 MCG BLST.W.DEV 1 PUFF INHALE (08:14)
[2022-04-02 08:15] VITALS: PULSE 87; RESP 20; O2SAT 95
[2022-04-02 08:44] VITALS: BP 98/49; PULSE 90; TEMP 36.2; O2SAT 94
[2022-04-02] MEDS: Multivitamin TABLET 1 TAB PO (08:46)
[2022-04-02] MEDS: predniSONE 5 MG TABLET PO (08:46)
[2022-04-02] MEDS: buPROPion HCl XL 150 MG TAB.ER.24H PO (08:46)
[2022-04-02] MEDS: Folic Acid 1 MG TABLET PO (08:46)
[2022-04-02] MEDS: Apixaban 5 MG TABLET PO (08:46)
[2022-04-02] MEDS: Loratadine 10 MG TABLET PO (08:46)
[2022-04-02] MEDS: sulfaSALAzine 500 MG TABLET PO (08:46)
[2022-04-02] MEDS: Hydroxychloroquine Sulfate 200 MG TABLET PO (08:47)
--- NOTE | 2022-04-02 08:49 | PC.NURSE ---
patient a&ox3, no c/o pain or discomfort, pt 2L o2nc- pt wears o2 at home prn, pt medicated per order, call dickens within reach will continue to monitor
[2022-04-02] MEDS: FLUoxetine HCl 20 MG CAPSULE PO (08:54)
--- NOTE | 2022-04-02 11:29 | PM.DS ---
DS: Providers Provider Date of Service: 04/02/22 Date of admission: 03/31/22 05:38 Primary care physician: Barbie Brown MD Consults: 03/31/22 05:35 Consult to Infectious Diseases Routine Consulting Provider: Karen Tabor Reason for consultation: Cellulitis DS: Diagnosis Discharge Diagnosis (1) Redness and swelling of lower leg: Status: Acute DS: Summary Hospital Course Hospital Course: Chief Complaint: Right leg pain redness and swelling 49-year-old female with a past medical history of hypertension, hyperlipidemia, CVA with residual mild left-sided weakness, hypothyroidism fibromyalgia, rheumatoid arthritis, mixed connective tissue disorder, peripheral vascular disease, history of COVID-19 pneumonia/ARDS, history of right leg cellulitis; presented to the hospital today with a chief complaint of pain redness and swelling of the right lower extremity.? Patient reports that she has intermittent episodes of cellulitis of the leg; but over the past 2 days she has been having increased pain redness and swelling of her right leg compared to the left leg; also mentioned that she was recently on p.o. doxycycline with no significant improvement in her cellulitis symptoms.? Hence decided to come to the ER for further evaluation.? Patient also reports to have cough.? Denies any diarrhea.? Denies any chest pain or palpitations.? Denies any shortness of breath.? Denies any numbness tingling or focal weakness.? Review of all other systems is negative except mentioned above ER course: Per ER team patient noted to have right lower extremity tender and swollen concerning for cellulitis; given antibiotics.? Also obtain venous duplex which was negative for any DVT.? Admitted to the hospital for further management. Hospital course: Patient was admitted for cellulitis blood cultures have been negative she was treated with IV vancomycin. She was evaluated by Dr. Bunch from Infectious Disease and initially recommended IV vancomycin for up to 5 days however patient has experienced significant improvement in her cellulitis with swelling and the redness markedly down and therefore desired to go home at this time I will therefore change the antibiotics to doxycycline for an additional 5 days. She has no fever Time Spent with Patient Time attestation: Total time spent providing and/or coordinating discharge services: Discharge coordination time: Greater than 30 minutes Quality: Safe Use of Opioids Does Pt have an Active Cancer Diagnosis on the Problem List?: No Quality: Stroke Does the patient have a stroke diagnosis?: No Physical Exam Vital Signs: Vital Signs: Last Vital Signs Temp 97.2 F 04/02/22 08:44 Pulse 90 04/02/22 08:44 Resp 20 04/02/22 08:15 BP 98/49 L 04/02/22 08:44 Pulse Ox 94 04/02/22 08:44 Oxygen Flow Rate 2 03/30/22 11:53 BMI result Body Mass Index 26.4 DS: Data Data Completed and Pending Labs on day of discharge: Laboratory Results - last 24 hr 04/01/22 11:00 Vancomycin Trough 14.7 Preliminary micro results at discharge 03/30/22 23:40 Blood Culture - Preliminary Blood - Venous No growth after 48 hours. 03/30/22 23:13 Blood Culture - Preliminary Blood - Venous No growth after 48 hours. Discharge Plan Discharge Anticipated Discharge Date/Time: 04/02/22 11:25 Patient Disposition: Home, Self-Care Discharge Diagnosis: Cellulitis of the leg Referrals: Barbie Dunn MD [Primary Care Provider] - 1 Week Discharge Medications: New doxycycline hyclate 100 mg tablet 100 mg PO BID 5 Days Qty: 10 0RF Continued folic acid 1 mg tablet 1 mg PO DAILY Qty: 30 3RF hydroxychloroquine 200 mg tablet 200 mg PO BID Qty: 60 3RF albuterol sulfate 2.5 mg /3 mL (0.083 %) solution for nebulization 2.5 mg inhalation Q6H PRN (Reason: Shortness Of Breath Or Wheezing) 0RF prednisone 5 mg tablet 5 mg PO DAILY 0RF bupropion HCl 100 mg tablet sustained-release 12 hr 100 mg PO BID 0RF ucxfryrhob-pgovhlijxrpmq-fbmz 50-325-40 mg tablet 2 tab PO DAILY PRN (Reason: headache) 0RF albuterol sulfate 90 mcg/actuation HFA aerosol inhaler 2 puff inhalation Q4H PRN (Reason: Shortness Of Breath Or Wheezing) 0RF sulfasalazine 500 mg Tablet 500 mg PO BID 0RF loratadine 10 mg Tablet 10 mg PO DAILY 0RF multivitamin Tablet 1 tab PO DAILY 0RF Flovent HFA 220 mcg/actuation Hfa Aerosol Inhaler 1 puff INHALATION BID 0RF apixaban 5 mg Tablet 5 mg PO BID 0RF levothyroxine 175 mcg Tablet 175 mcg PO DAILY 0RF tramadol 50 mg Tablet 50 mg PO Q8H PRN (Reason: pain) Qty: 0 0RF nortriptyline 75 mg capsule 100 mg PO BEDTIME 0RF fluoxetine [Prozac] 40 mg capsule 20 mg PO DAILY 0RF lorazepam 1 mg tablet 1 mg PO BID PRN (Reason: Anxiety) 0RF pravastatin 40 mg tablet 40 mg PO BEDTIME 0RF (DME) nebulizer and compressor [Vios Aerosol Delivery System] Device See Rx Instructions ea .ROUTE DIRECTED Qty: 1 0RF Rx Instructions: As directed Discharge Orders: Discharge Order (Routine); Ordered 04/02/22 Ordered By: Hua Zepeda Diet: advance to usual diet Activity on Discharge: As tolerated Stand Alone Forms: Patient Portal Discharge page Care Plan Goals: Complete resolution of cellular Health Concerns: cellulitis of the leg Plan of Treatment: Take doxycycline as recommended, follow-up with your doctor within a week, call for appointment. Assessment: As above
[2022-04-02 11:35] LABS: Creatinine Clr Calc Pharmacy 88.8; Estimated Glomerular Filt Rate > 60
[2022-04-02 11:42] LABS: Vancomycin Trough 15.2 mcg/mL (10.0-20.0)
--- NOTE | 2022-04-02 11:53 | PHA.PROG ---
Admission Date/Time: March 31, 2022 05:38 Indication: Right leg cellulitis Weight in k.503 kg Adjusted body weight in K Gilbert body weight in K.8 Serum Creatinine - Last 168 Hours 03/30/22 04/01/22 04/02/22 12: 06:52 11:11 Creatinine 0.76 0.63 0.69 Estimated CrCl and GFR - Last 168 Hours 03/30/22 04/01/22 04/02/22 12: 06:52 11:11 Estim Creat Clear Calc 80.6 97.2 88.8 Estimated GFR > 60 > 60 > 60 Vancomycin Loading Dose: N/A Current Vancomycin Dosing Regimen: 1000 mg Q12H Vancomycin Trough 15.2 mcg/mL (10.0-20.0) 04/02/22 11:11 Pharmacist Comments on Vancomycin Plan: Patient trough is therapuetic. If current regimen is continued the expected AUC will > 600. Decrease dose to 750 mg Q12H. Expected AUC 457 with a trough of 14 Next trough 04/03 @ 1100 Pharmacy to monitor renal function daily [facility] Vancomycin dosing will take advantage of [employer] as a clinical decision support tool that uses Bayesian modeling to calculate individual patient's pharmacokinetic parameters and forecast the patient's drug concentration time course with the target goal AUC 24 range of 400 - 600 mg/L/hr.
[2022-04-02] MEDS: vancomycin HCL 750 MG in 0.9 % Sodium Chloride 250 ML 265 MG IV (12:38)
--- NOTE | 2022-04-02 12:40 | PC.NURSE ---
patient moved to [facility] on overflow for hospital convenience, pt taking last iv dose of vanco and is discharging home.
--- NOTE | 2022-04-02 13:14 | MHC.CM.PN ---
Received notification patient will be discharged home without services. Patient will arrange her own transportation home. Kym JAMES aware. Continue to monitor for d/c needs.
== END 2022-04-03 08:23 | disposition home or self-care (01) | DRG 603 ==
LOC: HO.ED 03-31 01:09 → HO.EDOVER 03-31 05:42
PROVIDERS: Admitting Provider Hospitalist; Emergency Provider Internal Medicine; PCP Family Medicine; Visit Provider Internal Medicine
DX: L03.115 Cellulitis of right lower limb (principal); M31.0 Hypersensitivity angiitis; D84.821 Immunodeficiency due to drugs; M35.1 Other overlap syndromes; I69.854 Hemiplegia and hemiparesis following other cerebrovascular disease affecting left non-dominant side; F41.9 Anxiety disorder, unspecified; F32.A Depression, unspecified; M06.9 Rheumatoid arthritis, unspecified; E03.9 Hypothyroidism, unspecified; E78.5 Hyperlipidemia, unspecified; Z20.822 Contact with and (suspected) exposure to COVID-19; Z87.01 Personal history of pneumonia (recurrent); Z86.16 Personal history of COVID-19; Z87.891 Personal history of nicotine dependence; Z79.01 Long term (current) use of anticoagulants; Z79.52 Long term (current) use of systemic steroids; Z79.890 Hormone replacement therapy; Z79.899 Other long term (current) drug therapy
CPT/HCPCS: 36415; 73590; 76882; 80048; 80202; 82565; 83605; 85025; 87040; 87635; 93971; 94640; 96365; 96375; 99285; J2543; J3370

== ENCOUNTER 2022-05-24 00:49 | Inpatient (IN) | payer MEDICARE, MEDICAID, SELFPAY ==
--- NOTE | ~2022-05-24 | US_ITS ---
EXAMINATION: US VENOUS ULTRASOUND WITH DOPPLER LOWER EXTREMITY, RIGHT CLINICAL INFORMATION: Pain and swelling of lower extremity. COMPARISON: Venous ultrasound and soft tissue ultrasound from 03/30/2022 and 03/31/2022. TECHNIQUE: Ultrasound of the deep veins is performed from the hip to the calf with compression sonography and color and pulse Doppler assessment. Spectral analysis with color-flow imaging is performed. FINDINGS: The common femoral vein is compressible and exhibits a normal phasic waveform; this suggests that the iliac veins are widely patent above. Within the proximal thigh, the visualized profunda femoris vein is normal. The examined greater saphenous vein and saphenofemoral junction are normal. Superficial femoral vein is patent in the proximal, mid and distal thigh. Popliteal vein is normal to the level of the trifurcation. Diffuse edema is present in subcutaneous tissues of the leg. The posterior tibial vein is normal. The peroneal vein is difficult to evaluate due to the soft tissue edema/swelling of the extremity. No venous thrombosis is identified. Within the popliteal fossa, there is a 3.2 x 1.4 x 5.1 cm Ram's cyst. A right inguinal lymph node with fatty hilum is 1.1 cm short axis dimension, compared to 1.2 cm on 03/30/2022. This is likely a reactive lymph node. US/US venous duplex LE RT IMPRESSION: * No evidence of deep vein thrombosis in the right lower extremity. * There is persistent or recurrent edema within subcutaneous tissues of the leg (also observed on prior ultrasound from 03/31/2022). * Within the popliteal fossa, there is a 3.2 x 1.4 x 5.1 cm Ram's cyst.
[2022-05-24 01:00] VITALS: BP 133/73; PULSE 99; RESP 18; TEMP 36.9; O2SAT 96; BMI 27.4
[2022-05-24 01:08] LABS: Hematocrit 28.6 % (37.0-47.0); Hemoglobin 8.9 g/dl (12.0-16.0); Mean Corpuscular HGB Conc 31.1 g/dl (31.0-35.0); Mean Corpuscular Hemoglobin 24.4 pg (27.0-33.0); Mean Corpuscular Volume 78.4 fL (80.0-98.0); Mean Platelet Volume 8.7 fL (9.4-12.3); Platelet Count 267 X10*3/uL (160-400); Red Blood Count 3.65 X10*6/uL (4.20-5.50); Red Cell Distribution Width 14.9 % (11.0-16.0); White Blood Count 12.8 X10*3/uL (4.8-10.8)
[2022-05-24 01:19] LABS: INTERNATIONAL NORM RATIO 1.3 (0.9-1.1); Prothrombin Time 14.8 SEC (10.0-13.1)
[2022-05-24 01:31] LABS: Alanine Aminotransferase 9 U/L (0-31); Albumin Level 3.2 g/dL (3.5-5.0); Alkaline Phosphatase 118 U/L (39-117); Anion Gap 11 (12-20); Aspartate Amino Transferase 16 U/L (5-31); Bilirubin Total 0.5 mg/dL (0.0-1.0); Blood Urea Nitrogen 10 mg/dL (9-16); Calcium 8.4 mg/dL (8.4-10.2); Carbon Dioxide 28 mmol/L (22-29); Chloride 102 mmol/L (96-108); Creatinine Clr Calc Pharmacy 87.6; Estimated Glomerular Filt Rate > 60; Glucose Random 152 mg/dL (60-115); Potassium 4.2 mmol/L (3.3-5.1); Sodium 137 mmol/L (135-145); Total Protein 5.8 g/dL (6.5-8.0)
--- NOTE | 2022-05-24 01:38 | ED_ITS ---
HPI - General Adult General Chief complaint: Extremity Injury, Lower Stated complaint: R foot & leg swollen Time Seen by Provider: 05/24/22 01:22 Source: patient Mode of arrival: wheelchair Limitations: no limitations History of Present Illness HPI narrative: Patient comes to the emergency room complaining of right lower extremity pain. Patient states that she has cellulitis again. Patient has been hospitalized multiple times for cellulitis in her lower extremity. Patient states that yesterday she started having erythema, warmth to touch over the right lower extremity. Patient states that she has large ecchymosis on both sides of the entire leg, states that she fell approximately 1 week ago, she is on Eliquis. Patient denies any significant pain other than discomfort behind the knee, pressure-like sensation. Patient also complaining that she has a new ulcer on her toes in the left foot. Related Data Home Medications Medication Instructions Recorded Confirmed lorazepam 1 mg tablet 1 mg PO BID PRN Anxiety 08/15/20 03/31/22 pravastatin 40 mg tablet 40 mg PO BEDTIME 08/15/20 03/31/22 fluoxetine 40 mg capsule (Prozac) 20 mg PO DAILY 08/20/20 03/31/22 albuterol sulfate 2.5 mg inhalation Q6H PRN 08/31/20 03/31/22 Shortness Of Breath Or Wheezing albuterol sulfate 90 mcg/actuation 2 puff inhalation Q4H PRN 08/31/20 03/31/22 aerosol inhaler Shortness Of Breath Or Wheezing bupropion HCl 100 mg tablet,12 hr 100 mg PO BID 08/31/20 03/31/22 sustained-release [id number]-rcejfxwd 2 tab PO DAILY PRN headache 08/31/20 03/31/22 50 mg-325 mg-40 mg tablet prednisone 5 mg tablet 5 mg PO DAILY 08/31/20 03/31/22 nortriptyline 75 mg capsule 100 mg PO BEDTIME 04/18/21 03/31/22 apixaban 5 mg tablet 5 mg PO BID 10/21/21 03/31/22 fluticasone propionate 220 1 puff inhalation BID 10/21/21 03/31/22 mcg/actuation HFA aerosol inhaler (Flovent HFA) levothyroxine 175 mcg tablet 175 mcg PO DAILY 10/21/21 03/31/22 loratadine 10 mg tablet 10 mg PO DAILY 10/21/21 03/31/22 multivitamin 1 tab PO DAILY 10/21/21 03/31/22 sulfasalazine 500 mg tablet 500 mg PO BID 10/21/21 03/31/22 nebulizer and compressor (Vios #1 ea 02/15/22 Aerosol Delivery System) Previous Rx's Medication Instructions Recorded folic acid 1 mg tablet 1 mg PO DAILY #30 tabs 05/16/21 hydroxychloroquine 200 mg tablet 200 mg PO BID #60 tabs 05/16/21 tramadol 50 mg tablet 50 mg PO Q8H PRN pain #0 tabs 12/18/21 doxycycline hyclate 100 mg tablet 100 mg PO BID 5 days #10 tabs 04/02/22 fluconazole 150 mg tablet 150 mg PO Q3D 2 doses #2 tabs 04/02/22 (Diflucan) Allergies Allergy/AdvReac Type Severity Reaction Status Date / Time clarithromycin Allergy Intermediate FACIAL Verified 02/15/22 17:08 [CLARITHROMYCIN] SWELLING/REDNESS, facial rash, facial rash, facial rash, facial rash Review of Systems Review of Systems: Constitutional : No Weight loss, No Fever, No Chills, No Night Sweats, No Fatigue, No Malaise ENT/Mouth : No Hearing loss, No Ear Pain, No Nasal Congestion, No Sinus Pain, No Hoarseness, No sore throat, No Rhinorrhea, No Swallowing Difficulty Eyes: No Eye Pain, No Swelling, No Redness, No Foreign Body, No Discharge, No Vision Changes Cardiovascular : No Chest Pain, No SOB, No Dyspnea on Exertion, No Orthopnea, No Edema, No Palpitations Respiratory : No Cough, No Sputum, No Wheezing, No Smoke Exposure, No Dyspnea Gastrointestinal : No Nausea, No Vomiting, No Diarrhea, No Constipation, No abdominal Pain, No Hematochezia, No Melena Genitourinary : no irregular bleeding, No Dysuria, No Urinary Frequency, No Hematuria, No Urinary Incontinence, No Urgency, No Flank Pain, No Urinary Flow Changes, No Hesitancy Musculoskeletal : No joint pain, No Myalgias, No Joint Swelling Skin : Complaining of cellulitis in the right lower extremity, new ulcer and the foot and the toes on the left side, complaining of ecchymosis very large on the right leg, present for a week Neuro : No Weakness, No Numbness, No Paresthesias, No Loss of Consciousness, No Dizziness, No Headache Psych : No Anxiety/Panic, No Depression, No SI/HI/AH/VH, No Social Issues, Heme/Lymph: No Bruising, No Bleeding,No Lymphadenopathy Endocrine : No Polyuria, No Polydipsia, No Temperature Intolerance [facility] Past Medical History Medical History C. difficile colitis Cellulitis Cellulitis of right leg COPD (chronic obstructive pulmonary disease) CVA (cerebral vascular accident) Fibromyalgia Hypothyroid Immunosuppression due to chronic steroid use Lupus Mixed connective tissue disease PAD (peripheral artery disease) Pneumonia due to COVID-19 virus Proteinuria Redness and swelling of lower leg Respiratory failure with hypoxia Rheumatoid arthritis Secondary bacterial pneumonia Varicose veins of right lower extremity with inflammation Surgical History History of breast lump/mass excision History of bunionectomy History of cholecystectomy History of excision of mass History of partial hysterectomy Family History Family History Father No problems noted. Mother Lung cancer Social History Social History Household Members: Children Housing: House Do you presently have visiting nurse or other home services: Yes ([employer]) Alcohol intake: never Patient Tobacco Use Status: Former Tobacco user Tobacco use type: Cigarette Cigarette Packs Per Day: 1 Cigarettes Per Day: 20.0 Years Smoked: 29 Second Hand Smoke Exposure: No Use of substances other than those prescribed or required for medical reasons: No Advance Directives: Yes Advance Directives on File: Yes Advance Directives Date on File: 11/26/21 service: No Current occupational status: unemployed and disabled Physical Exam ED Vital Signs: Vital Signs - 24 hr 05/24/22 01:00 Temperature 98.5 F Pulse Rate 99 Respiratory Rate 18 Blood Pressure 133/73 Pulse Oximetry 96 Oxygen Delivery Method Room Air BMI result Body Mass Index 27.4 Const Other: Appearance: Alert. Oriented X3. No acute distress. Eyes: Pupils equal, round and reactive to light. ENT: Pharynx normal. Neck: Normal inspection. Neck supple. No lymph nodes noted. No crepitus CVS: Normal heart rate and rhythm. Pulses normal. Normal S1 and S2 Respiratory: No respiratory distress. Breath sounds normal. No Wheezing. No ra les Abdomen: Soft and nontender. No rigidity. No distention. Skin: Skin warm and dry. Patient seems icteric. Patient has chronic lymphedema, lower extremity on the right side cellulitis, extensive ecchymosis throughout the entire leg on the right side see pictures below Extremities: See skin above Neuro: Oriented X 3. No motor deficit. No sensory deficit. Moving all extremities. No slurred speech. CN 2 through 12 grossly intact Psych: calm, cooperative, normal affect Course Course Course Narrative: Patient's white blood cell count is 12.8, lactic acid is pending. Blood pressure within normal limits, no fever. Sepsis not suspected. Patient's response usually well to vancomycin and Zosyn. Patient is on Eliquis, unlikely that patient has a blood clot, ultrasound will be ordered in the morning. I discussed the patient with Dr. Adames, patient being admitted. Medical Decision Making Lab Data Result diagrams: 05/24/22 01:02 05/24/22 01:02 Labs: Lab Results 05/24/22 05/24/22 05/24/22 Range/Units 01:02 01:02 01:02 WBC 12.8 H (4.8-10.8) X10*3/uL RBC 3.65 L (4.20-5.50) X10*6/uL Hgb 8.9 L (12.0-16.0) g/dl Hct 28.6 L (37.0-47.0) % MCV 78.4 L (80.0-98.0) fL MCH 24.4 L (27.0-33.0) pg MCHC 31.1 (31.0-35.0) g/dl RDW 14.9 (11.0-16.0) % Plt Count 267 (160-400) X10*3/uL MPV 8.7 L (9.4-12.3) fL Absolute Nucleated RBC 0.000 (0.0-0.012) X10*3/uL Nucleated RBC % (auto) 0.0 (0.0-0.2) /100WBC PT 14.8 H (10.0-13.1) SEC INR 1.3 H (0.9-1.1) Sodium 137 (135-145) mmol/L Potassium 4.2 (3.3-5.1) mmol/L Chloride 102 (96-108) mmol/L Carbon Dioxide 28 (22-29) mmol/L Anion Gap 11 L (12-20) BUN 10 (9-16) mg/dL Creatinine 0.74 (0.5-1.4) mg/dL Estim Creat Clear Calc 87.6 Estimated GFR > 60 Random Glucose 152 H (60-115) mg/dL Calcium 8.4 (8.4-10.2) mg/dL Total Bilirubin 0.5 (0.0-1.0) mg/dL AST 16 (5-31) U/L ALT 9 (0-31) U/L Alkaline Phosphatase 118 H D (39-117) U/L Total Protein 5.8 L (6.5-8.0) g/dL Albumin 3.2 L D (3.5-5.0) g/dL Discharge Plan Discharge Clinical Impression: Cellulitis Patient Disposition: Admitted As Inpatient
[2022-05-24] MEDS: 0.9 % Sodium Chloride 1,000 ML 999 ML IVCONT (01:57)
[2022-05-24] MEDS: Piperacillin Sodium/Tazobactam 3.375 GM in 0.9 % Sodium Chloride 50 ML IV ×3 (01:58→18:47)
[2022-05-24 02:08] LABS: Lactic Acid 0.9 mmol/L (0.5-2.0)
[2022-05-24 02:19] LABS: Alanine Aminotransferase 10 U/L (0-31); Albumin Level 3.2 g/dL (3.5-5.0); Alkaline Phosphatase 117 U/L (39-117); Aspartate Amino Transferase 16 U/L (5-31); Bilirubin Direct 0.2 mg/dL (0.0-0.5); Bilirubin Total 0.5 mg/dL (0.0-1.0); Total Protein 5.7 g/dL (6.5-8.0)
[2022-05-24] MEDS: vancomycin HCL 1,000 MG, vancomycin HCL 750 MG in 0.9 % Sodium Chloride 500 ML 267.5 MG IV (02:36)
[2022-05-24 02:47] VITALS: BP 123/96; PULSE 83; RESP 14; O2SAT 100
--- NOTE | 2022-05-24 03:07 | PM.IMHP ---
History of Present Illness Date of Service: 05/24/22 Chief Complaint: RLE pain/swelling 46-year-old female with a past medical history of hypothyroidism, CVA, COPD, fibromyalgia, lupus, rheumatoid arthritis, peripheral arterial disease, right foot charge codes joint, varicose veins, history of C diff, mixed connective tissue disease; presented to the hospital today with a chief complaint of right leg pain redness and swelling. Patient reports that about a week ago she had a fall and noted to have ecchymosis/bruising on her right lower extremity on the medial and lateral side of the thigh; for the past 2 days she noted to have increased pain and swelling of her right leg; denies any fevers and chills. Patient also reports an open ulcer on her left 4th toe. Denies any chest pain palpitations lightheadedness or dizziness. Denies any numbness tingling or focal weakness. Review of all other systems is negative except mentioned above ER course: Per ER team patient noted to have right lower extremity more swollen than the left lower extremity; also noted to have right leg pain redness and tenderness; concerning for cellulitis. Patient has been on Eliquis. But also ordered for venous duplex. Patient was started on empiric IV vancomycin and Zosyn. Admitted for further management. [facility] Medical History C. difficile colitis Cellulitis Cellulitis of right leg COPD (chronic obstructive pulmonary disease) CVA (cerebral vascular accident) Fibromyalgia Hypothyroid Immunosuppression due to chronic steroid use Lupus Mixed connective tissue disease PAD (peripheral artery disease) Pneumonia due to COVID-19 virus Proteinuria Redness and swelling of lower leg Respiratory failure with hypoxia Rheumatoid arthritis Secondary bacterial pneumonia Varicose veins of right lower extremity with inflammation Family History Father No problems noted. Mother Lung cancer Surgical History History of breast lump/mass excision History of bunionectomy History of cholecystectomy History of excision of mass History of partial hysterectomy Social History Household Members: Children Housing: House Do you presently have visiting nurse or other home services: No Alcohol intake: never Patient Tobacco Use Status: Former Tobacco user Quit Date: 03/2022 Tobacco use type: Cigarette Cigarette Packs Per Day: 1 Cigarettes Per Day: 20.0 Years Smoked: 29 Second Hand Smoke Exposure: No Advance Directives Date on File: 11/26/21 service: No Current occupational status: unemployed and disabled Meds Allergies Allergy/AdvReac Type Severity Reaction Status Date / Time clarithromycin Allergy Intermediate FACIAL Verified 02/15/22 17:08 [CLARITHROMYCIN] SWELLING/REDNESS, facial rash, facial rash, facial rash, facial rash Active Medications: Current Medications Vancomycin HCl 1,000 mg/Vancomycin HCl 750 mg/ Sodium Chloride 535 mls @ 267.5 mls/hr IV ONCE ONE Stop: 05/24/22 03:34 Last Admin: 05/24/22 02:36 Dose: 267.5 mls/hr Home Medications Medication Instructions Recorded Confirmed Last Taken Type lorazepam 1 mg tablet 1 mg PO BID PRN Anxiety 08/15/20 05/24/22 08/30/20 History pravastatin 40 mg tablet 40 mg PO BEDTIME 08/15/20 05/24/22 08/30/20 History fluoxetine 40 mg capsule (Prozac) 20 mg PO DAILY 08/20/20 05/24/22 08/30/20 History albuterol sulfate 2.5 mg/3 mL 2.5 mg inhalation Q6H PRN 08/31/20 05/24/22 08/30/20 History (0.083 %) solution for nebulization Shortness Of Breath Or Wheezing albuterol sulfate 90 mcg/actuation 2 puff inhalation Q4H PRN 08/31/20 05/24/22 08/30/20 History aerosol inhaler Shortness Of Breath Or Wheezing bupropion HCl 100 mg tablet,12 hr 100 mg PO BID 08/31/20 05/24/22 08/30/20 History sustained-release prednisone 5 mg tablet 5 mg PO DAILY 08/31/20 05/24/22 08/30/20 History nortriptyline 75 mg capsule 100 mg PO BEDTIME 04/18/21 05/24/22 Unknown History apixaban 5 mg tablet 5 mg PO BID 10/21/21 05/24/22 Unknown History fluticasone propionate 220 1 puff inhalation BID 10/21/21 05/24/22 Unknown History mcg/actuation HFA aerosol inhaler (Flovent HFA) levothyroxine 175 mcg tablet 175 mcg PO DAILY 10/21/21 05/24/22 Unknown History loratadine 10 mg tablet 10 mg PO DAILY 10/21/21 05/24/22 Unknown History multivitamin 1 tab PO DAILY 10/21/21 05/24/22 Unknown History sulfasalazine 500 mg tablet 500 mg PO BID 10/21/21 05/24/22 Unknown History nebulizer and compressor (Vios #1 ea 02/15/22 05/24/22 Unknown History Aerosol Delivery System) famotidine 20 mg tablet 1 tab PO DAILY 05/24/22 05/24/22 Unknown History Physical Exam Vital Signs and Narrative: Vital Signs: Last Vital Signs Temp 98.5 F 05/24/22 01:00 Pulse 83 05/24/22 02:47 Resp 14 05/24/22 02:47 BP 123/96 H 05/24/22 02:47 Pulse Ox 100 05/24/22 02:47 O2 Del Method 05/24/22 02:47 O2 Flow Rate 2 05/24/22 02:47 BMI result Body Mass Index 27.4 Gen: Appears be in no acute distress HEENT: NCAT, Moist mucosa. Pulmonary: Vesicular breath sounds, fair air entry CVS: Normal S1-S2 Abdomen: BS+, Soft, Nontender Extremities: Warm well perfused; noted to have right lower extremity ecchymosis on the medial and lateral side. Noted to have right leg swollen compared to the left leg. Right leg is warm tender and erythematous. Noted to have bilateral toes deformity secondary to rheumatoid arthritis. Left 4th toe has ulcer on the medial side; no discharge noted. Neuro: Alert and awake. Results Labs CBC and Chem 7: 05/26/22 08:11 05/26/22 08:11 Labs: Laboratory Results - last 24 hr 05/24/22 05/24/22 05/24/22 01:02 01:02 01:02 MCV 78.4 L MCH 24.4 L MCHC 31.1 RDW 14.9 Plt Count 267 MPV 8.7 L Absolute Nucleated RBC 0.000 Nucleated RBC % (auto) 0.0 PT 14.8 H INR 1.3 H Anion Gap 11 L Estim Creat Clear Calc 87.6 Estimated GFR > 60 Random Glucose 152 H Lactic Acid Calcium 8.4 Total Bilirubin 0.5 Direct Bilirubin AST 16 ALT 9 Alkaline Phosphatase 118 H D Total Protein 5.8 L Albumin 3.2 L D 05/24/22 05/24/22 01:51 01:51 MCV MCH MCHC RDW Plt Count MPV Absolute Nucleated RBC Nucleated RBC % (auto) PT INR Anion Gap Estim Creat Clear Calc Estimated GFR Random Glucose Lactic Acid 0.9 Calcium Total Bilirubin 0.5 Direct Bilirubin 0.2 AST 16 ALT 10 Alkaline Phosphatase 117 Total Protein 5.7 L Albumin 3.2 L Assessment and Plan (1) Cellulitis: Status: Acute Plan 46-year-old female with a past medical history of hypothyroidism, CVA, COPD, fibromyalgia, lupus, rheumatoid arthritis, peripheral arterial disease, right foot charge codes joint, varicose veins, history of C diff, mixed connective tissue disease; presented to the hospital today with a chief complaint of right leg pain redness and swelling. Noted to have cellulitis of the right lower extremity. Admitted for further management. Right leg cellulitis: Right leg more swollen than the left leg. Ultrasound pending Continue IV vancomycin and Zosyn Pain control Right Charcot foot/left 4th toe ulcer: Wound consult. General surgery follow-up. History of COPD: Stable History of hypothyroidism: Continue home levothyroxine History of peripheral vascular disease: Patient on Eliquis. DVT prophylaxis: Patient on Eliquis Code status: Full code Quality Stroke Does the patient have a stroke diagnosis?: No VTE Prior VTE?: No VTE Risk Level:: Medical - moderate - high VTE Device Contraindication: Treatment Not Indicated VTE Drug Contraindication: N/A - Med Ordered
[2022-05-24 05:37] LABS: Anion Gap 8 (12-20); Blood Urea Nitrogen 10 mg/dL (9-16); Calcium 8.1 mg/dL (8.4-10.2); Carbon Dioxide 31 mmol/L (22-29); Chloride 106 mmol/L (96-108); Estimated Glomerular Filt Rate > 60; Glucose Random 105 mg/dL (60-115); Potassium 4.3 mmol/L (3.3-5.1); Sodium 141 mmol/L (135-145)
--- NOTE | 2022-05-24 05:38 | PC.NURSE ---
Per navdeep Osorio for ultrasound of RLE to be done by 7am.
[2022-05-24 06:36] VITALS: BP 123/57; PULSE 82; RESP 18; TEMP 36.6; O2SAT 100
[2022-05-24 07:02] LABS: COVID-19 Test Negative (Negative)
--- NOTE | 2022-05-24 07:23 | PHA.PROG ---
Admission Date/Time: May 24, 2022 03:04 Indication: OTHER; SKIN ISSUE Weight in k.039 kg Adjusted body weight in K.276 [place] body weight in Kg: Obesity Dosing Indication % IBW: Serum Creatinine - Last 168 Hours 05/24/22 05/24/22 01:02 04:42 Creatinine 0.74 0.69 Estimated CrCl and GFR - Last 168 Hours 05/24/22 05/24/22 01:02 04:42 Estim Creat Clear Calc 87.6 94.0 Estimated GFR > 60 > 60 Vancomycin Loading Dose: 1750 MG X 1 Current Vancomycin Dosing Regimen: 1000 MG Q12H Vancomycin Monitoring using AUC goal of 400 - 600 range with trough as surrogate marker: AUC 471, TROUGH 13.9 Date and Time for next Vancomycin Level to be drawn: TROUGH 7/8 @0900 Pharmacist Comments on Vancomycin Plan: Vancomycin dosing will take advantage of [employer] as a clinical decision support tool that uses Bayesian modeling to calculate individual patient's pharmacokinetic parameters and forecast the patient's drug concentration time course with the target goal AUC 24 range of 400 - 600 mg/L/hr.
[2022-05-24] MEDS: 0.9 % Sodium Chloride Flush 3 ML SYRINGE IVFLUSH ×2 (07:46→16:20)
--- NOTE | 2022-05-24 08:21 | PHA.MEDREC ---
Pharmacy Consult ? Medication Reconciliation Pharmacy has reviewed the medication reconciliation completed by Hafsa. There are no remarkable issues for provider's attention. Ibis Min, PharmD
[2022-05-24 09:00] LABS: C Reactive Protein 8.69 mg/dL (< or = 0.50)
--- NOTE | 2022-05-24 09:52 | P.CONGS_ITS ---
History of Present Illness Consult details Consult date: 05/24/22 Narrative: 46-year-old female referred for cellulitis of the right lower leg. She apparently had fallen about a week ago at home and had bruising on the right thigh. However, the past few days, she has had some swelling of her right lower leg and says that this has been causing pain and discomfort. She was for brought to the ER. She is not a good historian. She had been seen in the past by the vascular service because of ulcers on the right leg. She has multiple medical problems including lupus, connective tissue disease, COPD among others. She seems to have a poor baseline level of function. Review of Systems Constitutional: Constitutional: Denies chills and Denies fever(s) Cardiovascular: Cardiovascular: Denies chest pain at rest Respiratory: Respiratory: Denies cough Gastrointestinal: Gastrointestinal: Denies abdominal pain Genitourinary: Genitourinary: Denies difficulty voiding Musculoskeletal: Musculoskeletal: Reports deformity and Reports arthralgias PMFSH Past Medical History Medical History C. difficile colitis Cellulitis Cellulitis of right leg COPD (chronic obstructive pulmonary disease) CVA (cerebral vascular accident) Fibromyalgia Hypothyroid Immunosuppression due to chronic steroid use Lupus Mixed connective tissue disease PAD (peripheral artery disease) Pneumonia due to COVID-19 virus Proteinuria Redness and swelling of lower leg Respiratory failure with hypoxia Rheumatoid arthritis Secondary bacterial pneumonia Varicose veins of right lower extremity with inflammation Family History Family History Father No problems noted. 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) Alcohol intake: never Patient Tobacco Use Status: Former Tobacco user Tobacco use type: Cigarette Cigarette Packs Per Day: 1 Cigarettes Per Day: 20.0 Years Smoked: 29 Second Hand Smoke Exposure: No Use of substances other than those prescribed or required for medical reasons: No Advance Directives: Yes Advance Directives on File: Yes Advance Directives Date on File: 11/26/21 service: No Current occupational status: unemployed and disabled Meds Allergies Allergy/AdvReac Type Severity Reaction Status Date / Time clarithromycin Allergy Intermediate FACIAL Verified 02/15/22 17:08 [CLARITHROMYCIN] SWELLING/REDNESS, facial rash, facial rash, facial rash, facial rash Active Medications: Current Medications Acetaminophen (Acetaminophen 325 Mg Tablet) 650 mg PO Q6H PRN PRN Reason: Pain, Mild (Pain Scale 1-3) Albuterol Sulfate (Albuterol Sulfate (0.083%) 2.5 Mg/3 Ml Vial.Neb) 2.5 mg INHALE Q6H PRN PRN Reason: Shortness Of Breath Or Wheezing Albuterol Sulfate (Albuterol Sulfate 90 Mcg 8 Gm Inhaler) 2 puff INHALE Q4H PRN PRN Reason: Shortness Of Breath Or Wheezing Apixaban (Apixaban 5 Mg Tablet) 5 mg PO BID [facility] Bupropion HCl (Bupropion Hcl Xl 150 Mg Tab.Er.24h) 150 mg PO DAILY [facility] Famotidine (Famotidine 20 Mg Tablet) 20 mg PO DAILY [facility] Fluoxetine HCl (Fluoxetine Hcl 20 Mg Capsule) 20 mg PO DAILY [facility] Fluticasone Propionate (Fluticasone Propionate 250 Mcg Blst.W.Dev) 1 puff INHALE RBID [facility] Folic Acid (Folic Acid 1 Mg Tablet) 1 mg PO DAILY [facility] Hydromorphone HCl (Hydromorphone Hcl 1 Mg/Ml Syringe) 0.5 mg IVPUSH Q4H PRN; Protocol PRN Reason: Pain, Severe (Pain Scale 7-10) Hydroxychloroquine Sulfate (Hydroxychloroquine Sulfate 200 Mg Tablet) 200 mg PO BID [facility] Piperacillin Sod/Tazobactam (Sod 3.375 gm/ Sodium Chloride) 50 mls @ 12.5 mls/hr IV 0200,1000,1800 [facility] Vancomycin HCl 1,000 mg/ (Sodium Chloride) 270 mls @ 270 mls/hr IV Q12H [facility] Levothyroxine Sodium (Levothyroxine Sodium 175 Mcg Tablet) 175 mcg PO DAILY@0600 [facility] Loratadine (Loratadine 10 Mg Tablet) 10 mg PO DAILY [facility] Lorazepam (Lorazepam 1 Mg Tablet) 1 mg PO BID PRN PRN Reason: Anxiety Melatonin (Melatonin 3 Mg Tablet) 6 mg PO BEDTIME PRN PRN Reason: Insomnia Multivitamins/Vitamin C (Multivitamin Tablet) 1 tab PO DAILY [facility] Nortriptyline HCl (Nortriptyline Hcl 25 Mg Capsule) 100 mg PO BEDTIME [facility] Pharmacy Consult (Consult Rx Vancomycin Dosing) 1 each MISCELLANE DAILY PRN PRN Reason: Consult order Pravastatin Sodium (Pravastatin Sodium 40 Mg Tablet) 40 mg PO BEDTIME [facility] Prednisone (Prednisone 5 Mg Tablet) 5 mg PO DAILY [facility] Senna (Sennosides 8.6 Mg Tablet) 17.2 mg PO BEDTIME PRN PRN Reason: Constipation Sodium Chloride (0.9 % Sodium Chloride Flush 3 Ml Syringe) 3 ml IVFLUSH QSHIFT [facility] Last Admin: 05/24/22 07:46 Dose: 3 ml Sulfasalazine (Sulfasalazine 500 Mg Tablet) 500 mg PO BID [facility] Home Medications Medication Instructions Recorded Confirmed Last Taken Type lorazepam 1 mg tablet 1 mg PO BID PRN Anxiety 08/15/20 05/24/22 08/30/20 History pravastatin 40 mg tablet 40 mg PO BEDTIME 08/15/20 05/24/22 08/30/20 History fluoxetine 40 mg capsule (Prozac) 20 mg PO DAILY 08/20/20 05/24/22 08/30/20 History albuterol sulfate 2.5 mg inhalation Q6H PRN 08/31/20 05/24/22 08/30/20 History Shortness Of Breath Or Wheezing albuterol sulfate 90 mcg/actuation 2 puff inhalation Q4H PRN 08/31/20 05/24/22 08/30/20 History aerosol inhaler Shortness Of Breath Or Wheezing bupropion HCl 100 mg tablet,12 hr 100 mg PO BID 08/31/20 05/24/22 08/30/20 History sustained-release prednisone 5 mg tablet 5 mg PO DAILY 08/31/20 05/24/22 08/30/20 History nortriptyline 75 mg capsule 100 mg PO BEDTIME 04/18/21 05/24/22 Unknown History apixaban 5 mg tablet 5 mg PO BID 10/21/21 05/24/22 Unknown History fluticasone propionate 220 1 puff inhalation BID 10/21/21 05/24/22 Unknown History mcg/actuation HFA aerosol inhaler (Flovent HFA) levothyroxine 175 mcg tablet 175 mcg PO DAILY 10/21/21 05/24/22 Unknown History loratadine 10 mg tablet 10 mg PO DAILY 10/21/21 05/24/22 Unknown History multivitamin 1 tab PO DAILY 10/21/21 05/24/22 Unknown History sulfasalazine 500 mg tablet 500 mg PO BID 10/21/21 05/24/22 Unknown History nebulizer and compressor (Vios #1 ea 02/15/22 05/24/22 Unknown History Aerosol Delivery System) famotidine 20 mg tablet 1 tab PO DAILY 05/24/22 05/24/22 Unknown History Physical Exam Vital Signs: Vital Signs: Last Vital Signs Temp 98 F 05/24/22 06:36 Pulse 82 05/24/22 06:36 Resp 18 05/24/22 06:36 BP 123/57 L 05/24/22 06:36 Pulse Ox 100 05/24/22 06:36 O2 Del Method 05/24/22 06:36 O2 Flow Rate 2 05/24/22 06:36 BMI result Body Mass Index 27.4 Const: Other: Appears very frail, answers questions but not very detailed General: comfortable and no acute distress Resp: Effort & Inspection: normal respiratory effort Cardio: Rate: regular rate GI: Palpation (GI): Soft to palpation and nontender Extrem: Other: Significant deformities of the toes, with small 1 cm diameter ulcer, superficial, on the 4th toe medial aspect, with no ulceration She has edema of the right lower leg with mild cellulitic change Results Labs Result diagrams: 05/24/22 01:02 05/24/22 04:42 Labs: Abnormal lab results 05/24/22 05/24/22 05/24/22 Range/Units 01:02 01:02 01:02 WBC 12.8 H (4.8-10.8) X10*3/uL RBC 3.65 L (4.20-5.50) X10*6/uL Hgb 8.9 L (12.0-16.0) g/dl Hct 28.6 L (37.0-47.0) % MCV 78.4 L (80.0-98.0) fL MCH 24.4 L (27.0-33.0) pg MPV 8.7 L (9.4-12.3) fL PT 14.8 H (10.0-13.1) SEC INR 1.3 H (0.9-1.1) Carbon Dioxide (22-29) mmol/L Anion Gap 11 L (12-20) Random Glucose 152 H (60-115) mg/dL Calcium (8.4-10.2) mg/dL Alkaline Phosphatase 118 H D (39-117) U/L C-Reactive Protein (< or = 0.50) mg/dL Total Protein 5.8 L (6.5-8.0) g/dL Albumin 3.2 L D (3.5-5.0) g/dL 05/24/22 05/24/22 Range/Units 01:51 04:42 WBC (4.8-10.8) X10*3/uL RBC (4.20-5.50) X10*6/uL Hgb (12.0-16.0) g/dl Hct (37.0-47.0) % MCV (80.0-98.0) fL MCH (27.0-33.0) pg MPV (9.4-12.3) fL PT (10.0-13.1) SEC INR (0.9-1.1) Carbon Dioxide 31 H (22-29) mmol/L Anion Gap 8 L (12-20) Random Glucose (60-115) mg/dL Calcium 8.1 L (8.4-10.2) mg/dL Alkaline Phosphatase (39-117) U/L C-Reactive Protein 8.69 H (< or = 0.50) mg/dL Total Protein 5.7 L (6.5-8.0) g/dL Albumin 3.2 L (3.5-5.0) g/dL Short CBC 05/24/22 Range/Units 01:02 WBC 12.8 H (4.8-10.8) X10*3/uL Hgb 8.9 L (12.0-16.0) g/dl Hct 28.6 L (37.0-47.0) % Plt Count 267 (160-400) X10*3/uL BMP 05/24/22 05/24/22 01:02 04:42 Sodium 137 141 Potassium 4.2 4.3 Chloride 102 106 Carbon Dioxide 28 31 H BUN 10 10 Creatinine 0.74 0.69 Calcium 8.4 8.1 L Liver Function 05/24/22 05/24/22 Range/Units 01:02 01:51 Total Bilirubin 0.5 0.5 (0.0-1.0) mg/dL Direct Bilirubin 0.2 (0.0-0.5) mg/dL AST 16 16 (5-31) U/L ALT 9 10 (0-31) U/L Alkaline Phosphatase 118 H D 117 (39-117) U/L Albumin 3.2 L D 3.2 L (3.5-5.0) g/dL All other labs normal. Assessment and Plan (1) Cellulitis: Status: Acute She has edema and cellulitis of the right lower leg. I do not see any ulceration or any in breakdown. There is no lesion or any induration or suggestion of an abscess. I have placed a pillow underneath her calf to elevate the leg and extracted her to maintain this She also has a small ulcer on the 4th toe on the left. I bluntly debrided this appears clean at this time. This does not appear to require any sharp excisional debridement. This is likely a consequence of her toe deformities causing constant rubbing of her toes. She has other medical issues that are being addressed by the hospitalist service. I will follow along while she is in the hospital. Procedures Date of Service Date of Service: 05/24/22
[2022-05-24] MEDS: Loratadine 10 MG TABLET PO (09:57)
[2022-05-24] MEDS: buPROPion HCl XL 150 MG TAB.ER.24H PO (09:57)
[2022-05-24] MEDS: Apixaban 5 MG TABLET PO ×2 (09:57→20:29)
[2022-05-24] MEDS: FLUoxetine HCl 20 MG CAPSULE PO (09:57)
[2022-05-24] MEDS: Famotidine 20 MG TABLET PO (09:57)
[2022-05-24] MEDS: Hydroxychloroquine Sulfate 200 MG TABLET PO ×2 (09:58→20:29)
[2022-05-24] MEDS: predniSONE 5 MG TABLET PO (09:58)
[2022-05-24] MEDS: Multivitamin TABLET 1 TAB PO (09:58)
[2022-05-24] MEDS: Folic Acid 1 MG TABLET PO (09:58)
[2022-05-24] MEDS: vancomycin HCL 1,000 MG in 0.9 % Sodium Chloride 250 ML 270 MG IV (10:08)
[2022-05-24] MEDS: sulfaSALAzine 500 MG TABLET PO ×2 (11:13→20:29)
[2022-05-24 12:11] VITALS: BP 137/64; PULSE 86; RESP 16; TEMP 36.6; O2SAT 100
--- NOTE | 2022-05-24 12:48 | W.PM.IDCN ---
History of Present Illness Data of Consult Service Date: 05/24/22 Requesting physician: Jose Gerardo Primary Care Provider: Barbie Brown MD HPI Reason for consult: RLE cellulitis,left 4th toe scab She presents to hospital with RLE redness and swelling for a week. She has no fever or chills. She had fall one week ago. She also has left foot scab between fourth and fifth toes at Charcot joint. Review of Systems Review of Systems: Yes all other systems are reviewed and are negative [facility] Past Medical History Medical History C. difficile colitis Cellulitis Cellulitis of right leg COPD (chronic obstructive pulmonary disease) CVA (cerebral vascular accident) Fibromyalgia Hypothyroid Immunosuppression due to chronic steroid use Lupus Mixed connective tissue disease PAD (peripheral artery disease) Pneumonia due to COVID-19 virus Proteinuria Redness and swelling of lower leg Respiratory failure with hypoxia Rheumatoid arthritis Secondary bacterial pneumonia Varicose veins of right lower extremity with inflammation Family History Family History Father No problems noted. 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 home services: Yes (high [employer]) Alcohol intake: never Patient Tobacco Use Status: Former Tobacco user Tobacco use type: Cigarette Cigarette Packs Per Day: 1 Cigarettes Per Day: 20.0 Years Smoked: 29 Second Hand Smoke Exposure: No Use of substances other than those prescribed or required for medical reasons: No Advance Directives: Yes Advance Directives on File: Yes Advance Directives Date on File: 11/26/21 service: No Current occupational status: unemployed and disabled Meds Allergies Allergy/AdvReac Type Severity Reaction Status Date / Time clarithromycin Allergy Intermediate FACIAL Verified 02/15/22 17:08 [CLARITHROMYCIN] SWELLING/REDNESS, facial rash, facial rash, facial rash, facial rash Active Medications: Current Medications Acetaminophen (Acetaminophen 325 Mg Tablet) 650 mg PO Q6H PRN PRN Reason: Pain, Mild (Pain Scale 1-3) Albuterol Sulfate (Albuterol Sulfate (0.083%) 2.5 Mg/3 Ml Vial.Neb) 2.5 mg INHALE Q6H PRN PRN Reason: Shortness Of Breath Or Wheezing Albuterol Sulfate (Albuterol Sulfate 90 Mcg 8 Gm Inhaler) 2 puff INHALE Q4H PRN PRN Reason: Shortness Of Breath Or Wheezing Apixaban (Apixaban 5 Mg Tablet) 5 mg PO BID [facility] Last Admin: 05/24/22 09:57 Dose: 5 mg Bupropion HCl (Bupropion Hcl Xl 150 Mg Tab.Er.24h) 150 mg PO DAILY [facility] Last Admin: 05/24/22 09:57 Dose: 150 mg Famotidine (Famotidine 20 Mg Tablet) 20 mg PO DAILY [facility] Last Admin: 05/24/22 09:57 Dose: 20 mg Fluoxetine HCl (Fluoxetine Hcl 20 Mg Capsule) 20 mg PO DAILY [facility] Last Admin: 05/24/22 09:57 Dose: 20 mg Fluticasone Propionate (Fluticasone Propionate 250 Mcg Blst.W.Dev) 1 puff INHALE RBID [facility] Folic Acid (Folic Acid 1 Mg Tablet) 1 mg PO DAILY [facility] Last Admin: 05/24/22 09:58 Dose: 1 mg Hydromorphone HCl (Hydromorphone Hcl 1 Mg/Ml Syringe) 0.5 mg IVPUSH Q4H PRN; Protocol PRN Reason: Pain, Severe (Pain Scale 7-10) Hydroxychloroquine Sulfate (Hydroxychloroquine Sulfate 200 Mg Tablet) 200 mg PO BID [facility] Last Admin: 05/24/22 09:58 Dose: 200 mg Piperacillin Sod/Tazobactam (Sod 3.375 gm/ Sodium Chloride) 50 mls @ 12.5 mls/hr IV 0200,1000,1800 [facility] Last Admin: 05/24/22 11:13 Dose: 12.5 mls/hr Vancomycin HCl 1,000 mg/ (Sodium Chloride) 270 mls @ 270 mls/hr IV Q12H [facility] Last Infusion: 05/24/22 12:38 Dose: Infused Levothyroxine Sodium (Levothyroxine Sodium 175 Mcg Tablet) 175 mcg PO DAILY@0600 [facility] Loratadine (Loratadine 10 Mg Tablet) 10 mg PO DAILY [facility] Last Admin: 05/24/22 09:57 Dose: 10 mg Lorazepam (Lorazepam 1 Mg Tablet) 1 mg PO BID PRN PRN Reason: Anxiety Melatonin (Melatonin 3 Mg Tablet) 6 mg PO BEDTIME PRN PRN Reason: Insomnia Multivitamins/Vitamin C (Multivitamin Tablet) 1 tab PO DAILY [facility] Last Admin: 05/24/22 09:58 Dose: 1 tab Nortriptyline HCl (Nortriptyline Hcl 25 Mg Capsule) 100 mg PO BEDTIME [facility] Pharmacy Consult (Consult Rx Vancomycin Dosing) 1 each MISCELLANE DAILY PRN PRN Reason: Consult order Pravastatin Sodium (Pravastatin Sodium 40 Mg Tablet) 40 mg PO BEDTIME [facility] Prednisone (Prednisone 5 Mg Tablet) 5 mg PO DAILY [facility] Last Admin: 05/24/22 09:58 Dose: 5 mg Senna (Sennosides 8.6 Mg Tablet) 17.2 mg PO BEDTIME PRN PRN Reason: Constipation Sodium Chloride (0.9 % Sodium Chloride Flush 3 Ml Syringe) 3 ml IVFLUSH QSHIFT [facility] Last Admin: 05/24/22 07:46 Dose: 3 ml Sulfasalazine (Sulfasalazine 500 Mg Tablet) 500 mg PO BID [facility] Last Admin: 05/24/22 11:13 Dose: 500 mg Home Medications Medication Instructions Recorded Confirmed Last Taken Type lorazepam 1 mg tablet 1 mg PO BID PRN Anxiety 08/15/20 05/24/22 08/30/20 History pravastatin 40 mg tablet 40 mg PO BEDTIME 08/15/20 05/24/22 08/30/20 History fluoxetine 40 mg capsule (Prozac) 20 mg PO DAILY 08/20/20 05/24/22 08/30/20 History albuterol sulfate 2.5 mg inhalation Q6H PRN 08/31/20 05/24/22 08/30/20 History Shortness Of Breath Or Wheezing albuterol sulfate 90 mcg/actuation 2 puff inhalation Q4H PRN 08/31/20 05/24/22 08/30/20 History aerosol inhaler Shortness Of Breath Or Wheezing bupropion HCl 100 mg tablet,12 hr 100 mg PO BID 08/31/20 05/24/22 08/30/20 History sustained-release prednisone 5 mg tablet 5 mg PO DAILY 08/31/20 05/24/22 08/30/20 History nortriptyline 75 mg capsule 100 mg PO BEDTIME 04/18/21 05/24/22 Unknown History apixaban 5 mg tablet 5 mg PO BID 10/21/21 05/24/22 Unknown History fluticasone propionate 220 1 puff inhalation BID 10/21/21 05/24/22 Unknown History mcg/actuation HFA aerosol inhaler (Flovent HFA) levothyroxine 175 mcg tablet 175 mcg PO DAILY 10/21/21 05/24/22 Unknown History loratadine 10 mg tablet 10 mg PO DAILY 10/21/21 05/24/22 Unknown History multivitamin 1 tab PO DAILY 10/21/21 05/24/22 Unknown History sulfasalazine 500 mg tablet 500 mg PO BID 10/21/21 05/24/22 Unknown History nebulizer and compressor (Vios #1 ea 02/15/22 05/24/22 Unknown History Aerosol Delivery System) famotidine 20 mg tablet 1 tab PO DAILY 05/24/22 05/24/22 Unknown History Physical Exam Vital Signs: Vital Signs: Last Vital Signs Temp 97.8 F 05/24/22 12:11 Pulse 86 05/24/22 12:11 Resp 16 05/24/22 12:11 BP 137/64 05/24/22 12:11 Pulse Ox 100 05/24/22 12:11 O2 Del Method 05/24/22 12:11 O2 Flow Rate 2 05/24/22 12:11 BMI result Body Mass Index 27.4 Const: General: cooperative HEENT: Head: Yes normal to inspection Face and sinus: Yes normal facial exam Mouth: Normal oral and palatal mucosa present Teeth and gingiva: dentition normal Eyes: General: appearance normal, both eyes and all related structures Pupils: Equal, round and reactive pupils present Resp: Effort & Inspection: normal respiratory effort Cardio: Rate: regular rate Rhythm: regular rhythm GI: Palpation (GI): Soft to palpation and nontender : General: Yes no CVA tenderness Back/Spine/Pelvis: Back: no CVA tenderness Skin: General skin exam: no rashes or lesions noted Neuro: General: moves all extremities Cranial nerves: Yes Equal, round and reactive pupils present Extrem: Other: redness RLE tiny scab between 4th/5th left foot Psych: Appearance: grossly normal Results Labs CBC & Chem 7: 05/24/22 01:02 05/24/22 04:42 Labs: Short CBC 05/24/22 Range/Units 01:02 WBC 12.8 H (4.8-10.8) X10*3/uL Hgb 8.9 L (12.0-16.0) g/dl Hct 28.6 L (37.0-47.0) % Plt Count 267 (160-400) X10*3/uL BMP 05/24/22 05/24/22 01:02 04:42 Sodium 137 141 Potassium 4.2 4.3 Chloride 102 106 Carbon Dioxide 28 31 H BUN 10 10 Creatinine 0.74 0.69 Calcium 8.4 8.1 L Liver Function 05/24/22 05/24/22 Range/Units 01:02 01:51 Total Bilirubin 0.5 0.5 (0.0-1.0) mg/dL Direct Bilirubin 0.2 (0.0-0.5) mg/dL AST 16 16 (5-31) U/L ALT 9 10 (0-31) U/L Alkaline Phosphatase 118 H D 117 (39-117) U/L Albumin 3.2 L D 3.2 L (3.5-5.0) g/dL Assessment and Plan (1) Cellulitis: Status: Acute unknown organism,diabetic on staph and strep coverage Plan Continue broad spectrum coverage at this time possible po Doxycycline and Augmentin outpatient. toe looks superficial at this time
--- NOTE | 2022-05-24 13:01 | MHC.CM.PN ---
Attempted to meet with patient in regards to discharge planning. Patient currently on the phone. No family present. Will attempt to meet again. Continue to monitor for d/c needs.
--- NOTE | 2022-05-24 13:36 | PM.EVENT ---
Event Note Date of Service: 05/24/22 Event Note: day hospitalist update 46yo F with MCTD, SLE, RA, PAD, Charcot foot, COPD, hypothyroidism, hx CVA admitted with RLE cellulitis. Also small ulcer on L 4th toe, debrided bluntly by surgeon. Continue broad-spectrum coverage with IV vanco + pip/matt, ID consultation, to consider eventual discharge home on doxy + amox/clav when improved.
--- NOTE | 2022-05-24 15:45 | PC.NURSE ---
Pt asleep but easilay arousable. denies discomfort. awaiting next abx infusion.
--- NOTE | 2022-05-24 18:16 | PC.NURSE ---
Pt oob to bedside commode with 1 assist. Rn aware
[2022-05-24] MEDS: Acetaminophen 325 MG TABLET 650 MG PO (18:52)
[2022-05-24] MEDS: HYDROmorphone HCl 1 MG/ML SYRINGE 0.5 MG IVPUSH (18:52)
[2022-05-24 19:59] VITALS: BP 110/51; PULSE 76; RESP 18; TEMP 36.4; O2SAT 99
[2022-05-24] MEDS: Fluticasone Propionate 250 MCG BLST.W.DEV 1 PUFF INHALE (20:18)
[2022-05-24 20:20] VITALS: PULSE 77; RESP 16; O2SAT 98
[2022-05-24] MEDS: Nortriptyline HCl 25 MG CAPSULE 100 MG PO (20:29)
[2022-05-24] MEDS: Pravastatin Sodium 40 MG TABLET PO (20:29)
[2022-05-25] VITALS (9 sets, daily range): BP systolic 100–127; BP diastolic 55–65; PULSE 78–96; RESP 16–20; TEMP 36.2–36.7; O2SAT 96–100; BMI 27.6
[2022-05-25] MEDS: vancomycin HCL 1,000 MG in 0.9 % Sodium Chloride 250 ML 270 MG IV (00:23)
[2022-05-25] MEDS: 0.9 % Sodium Chloride Flush 3 ML SYRINGE IVFLUSH ×3 (00:27→18:07)
[2022-05-25] MEDS: HYDROmorphone HCl 1 MG/ML SYRINGE 0.5 MG IVPUSH ×2 (00:53→11:07)
[2022-05-25] MEDS: Piperacillin Sodium/Tazobactam 3.375 GM in 0.9 % Sodium Chloride 50 ML IV ×4 (01:23→18:08)
[2022-05-25] MEDS: Levothyroxine Sodium 175 MCG TABLET PO (05:51)
[2022-05-25 05:55] LABS: MANUAL DIFF FLAG NO
[2022-05-25 06:00] LABS: Basophils Percent Auto 0.3 % (0-2); Eosinophils Absolute Auto 0.8 X10*3/uL (0.0-0.4); Eosinophils Percent Auto 11.1 % (0-4); Hematocrit 28.6 % (37.0-47.0); Hemoglobin 8.6 g/dl (12.0-16.0); Imm Gran Abs Auto 0.03 X10*3/uL (0.00-0.03); Imm Gran Pct Auto 0.4 % (0.0-0.4); Lymphocytes Absolute Auto 1.3 X10*3/uL (1.2-4.9); Lymphocytes Percent Auto 17.4 % (20-40); Mean Corpuscular HGB Conc 30.1 g/dl (31.0-35.0); Mean Corpuscular Hemoglobin 24.2 pg (27.0-33.0); Mean Corpuscular Volume 80.3 fL (80.0-98.0); Monocytes Absolute Auto 0.8 X10*3/uL (0.1-1.2); Monocytes Percent Auto 11.5 % (2-11); Neutrophils Absolute Auto 4.3 x10*3/uL (2.0-8.3); Neutrophils Percent Auto 59.3 % (45-73); Platelet Count 226 X10*3/uL (160-400); Red Blood Count 3.56 X10*6/uL (4.20-5.50); Red Cell Distribution Width 14.9 % (11.0-16.0); White Blood Count 7.3 X10*3/uL (4.8-10.8)
[2022-05-25 06:13] LABS: Creatinine Clr Calc Pharmacy 114.2; Estimated Glomerular Filt Rate > 60
[2022-05-25] MEDS: predniSONE 5 MG TABLET PO (09:04)
[2022-05-25] MEDS: buPROPion HCl XL 150 MG TAB.ER.24H PO (09:04)
[2022-05-25] MEDS: Hydroxychloroquine Sulfate 200 MG TABLET PO ×2 (09:04→21:36)
[2022-05-25] MEDS: Apixaban 5 MG TABLET PO ×2 (09:04→21:38)
[2022-05-25] MEDS: Famotidine 20 MG TABLET PO (09:05)
[2022-05-25] MEDS: Multivitamin TABLET 1 TAB PO (09:05)
[2022-05-25] MEDS: Folic Acid 1 MG TABLET PO (09:05)
[2022-05-25] MEDS: FLUoxetine HCl 20 MG CAPSULE PO (09:05)
[2022-05-25] MEDS: Loratadine 10 MG TABLET PO (09:05)
[2022-05-25] MEDS: sulfaSALAzine 500 MG TABLET PO ×2 (09:05→21:37)
[2022-05-25 09:29] LABS: Vancomycin Trough 14.1 mcg/mL (10.0-20.0)
[2022-05-25] MEDS: Fluticasone Propionate 250 MCG BLST.W.DEV 1 PUFF INHALE ×2 (09:38→20:25)
--- NOTE | 2022-05-25 09:48 | HE.PHANOTE ---
Vancomycin Dosing Addendum Vancomycin trough 14.1, predicted AUC 396, renal fxn improving. Increased dose to 1250 mg q12h for predicted AUC of 494.raul chandra 05/26/22 @0800
[2022-05-25] MEDS: vancomycin HCL 1,250 MG in 0.9 % Sodium Chloride 250 ML 166.67 MG IV ×2 (11:08→21:39)
--- NOTE | 2022-05-25 13:10 | MHC.CM.PN ---
PT REPORT SHE LIVES AT HOME WITH HER CHILDREN AND HAS DAILY [employer] SHE REPORTS SHE HAS A WALKER, NEBULIZER AND HOME OXYGEN, BUT REPORTS SHE HAS NOT BEEN USING HER O2. SHE REPORTS SHE DID GET THE COVID-19 VACCINE AND ONE BOOSTER PT HAS A HCP ON FILE PCP: SARTHAK BISHOP IMM DELIVERED CURRENT DC PLAN IS HOME WITH [employer]UMPTION OF [employer] PT TO ARRANGE TRANSPORT
--- NOTE | 2022-05-25 14:31 | HO.PM.IMPN ---
Subjective Subjective Date of Service: 05/25/22 Interval History: seen and examined earlier today reports small improvement reports she ambulates on her own at home with an assisstive device Review of Systems negative except HPI Physical Exam Vital Signs: Vital Signs: Last Vital Signs Temp 98.0 F 05/25/22 12:00 Pulse 88 05/25/22 12:00 Resp 18 05/25/22 12:00 BP 117/60 05/25/22 12:00 Pulse Ox 98 05/25/22 12:00 O2 Del Method 05/25/22 12:00 O2 Flow Rate 2 05/25/22 12:00 BMI result Body Mass Index 27.6 Const: Other: General - no acute distress, appears comfortable Cardiovascular - regular rate and rhythm, S1-S2 Lungs - normal respiratory effort, clear to auscultation bilaterally, no wheezing Abdomen - soft, nontender, no rebound or guarding Extremities - brusing RLE; RLE edema > LLE; L 4th toe ulcer Neuro - awake and alert, no focal deficits Objective Data Active Medications Acetaminophen (Acetaminophen 325 Mg Tablet) 650 mg PO Q6H PRN PRN Reason: Pain, Mild (Pain Scale 1-3) Last Admin: 05/24/22 18:52 Dose: 650 mg Documented By: KATE Albuterol Sulfate (Albuterol Sulfate (0.083%) 2.5 Mg/3 Ml Vial.Neb) 2.5 mg INHALE Q6H PRN PRN Reason: Shortness Of Breath Or Wheezing Albuterol Sulfate (Albuterol Sulfate 90 Mcg 8 Gm Inhaler) 2 puff INHALE Q4H PRN PRN Reason: Shortness Of Breath Or Wheezing Apixaban (Apixaban 5 Mg Tablet) 5 mg PO BID [facility] Last Admin: 05/25/22 09:04 Dose: 5 mg Documented By: DULCE Bupropion HCl (Bupropion Hcl Xl 150 Mg Tab.Er.24h) 150 mg PO DAILY [facility] Last Admin: 05/25/22 09:04 Dose: 150 mg Documented By: DULCE Famotidine (Famotidine 20 Mg Tablet) 20 mg PO DAILY [facility] Last Admin: 05/25/22 09:05 Dose: 20 mg Documented By: DULCE Fluoxetine HCl (Fluoxetine Hcl 20 Mg Capsule) 20 mg PO DAILY [facility] Last Admin: 05/25/22 09:05 Dose: 20 mg Documented By: DULCE Fluticasone Propionate (Fluticasone Propionate 250 Mcg Blst.W.Dev) 1 puff INHALE RBID [facility] Last Admin: 05/25/22 09:38 Dose: 1 puff Documented By: ISRAEL Folic Acid (Folic Acid 1 Mg Tablet) 1 mg PO DAILY [facility] Last Admin: 05/25/22 09:05 Dose: 1 mg Documented By: DULCE Hydromorphone HCl (Hydromorphone Hcl 1 Mg/Ml Syringe) 0.5 mg IVPUSH Q4H PRN; Protocol PRN Reason: Pain, Severe (Pain Scale 7-10) Last Admin: 05/25/22 11:07 Dose: 0.5 mg Documented By: DULCE Hydroxychloroquine Sulfate (Hydroxychloroquine Sulfate 200 Mg Tablet) 200 mg PO BID [facility] Last Admin: 05/25/22 09:04 Dose: 200 mg Documented By: DULCE Piperacillin Sod/Tazobactam (Sod 3.375 gm/ Sodium Chloride) 50 mls @ 100 mls/hr IV Q6H [facility] Last Admin: 05/25/22 13:57 Dose: 100 mls/hr Documented By: DULCE Vancomycin HCl 1,250 mg/ (Sodium Chloride) 250 mls @ 166.667 mls/hr IV Q12H [facility] Last Infusion: 05/25/22 13:43 Dose: 166.67 mls/hr Documented By: DULCE Levothyroxine Sodium (Levothyroxine Sodium 175 Mcg Tablet) 175 mcg PO DAILY@0600 [facility] Last Admin: 05/25/22 05:51 Dose: 175 mcg Documented By: SHEFALI Loratadine (Loratadine 10 Mg Tablet) 10 mg PO DAILY [facility] Last Admin: 05/25/22 09:05 Dose: 10 mg Documented By: DULCE Lorazepam (Lorazepam 1 Mg Tablet) 1 mg PO BID PRN PRN Reason: Anxiety Melatonin (Melatonin 3 Mg Tablet) 6 mg PO BEDTIME PRN PRN Reason: Insomnia Multivitamins/Vitamin C (Multivitamin Tablet) 1 tab PO DAILY [facility] Last Admin: 05/25/22 09:05 Dose: 1 tab Documented By: DULCE Nortriptyline HCl (Nortriptyline Hcl 25 Mg Capsule) 100 mg PO BEDTIME [facility] Last Admin: 05/24/22 20:29 Dose: 100 mg Documented By: RAMOS Pharmacy Consult (Consult Rx Vancomycin Dosing) 1 each MISCELLANE DAILY PRN PRN Reason: Consult order Pravastatin Sodium (Pravastatin Sodium 40 Mg Tablet) 40 mg PO BEDTIME [facility] Last Admin: 05/24/22 20:29 Dose: 40 mg Documented By: RAMOS Prednisone (Prednisone 5 Mg Tablet) 5 mg PO DAILY [facility] Last Admin: 05/25/22 09:04 Dose: 5 mg Documented By: DULCE Senna (Sennosides 8.6 Mg Tablet) 17.2 mg PO BEDTIME PRN PRN Reason: Constipation Sodium Chloride (0.9 % Sodium Chloride Flush 3 Ml Syringe) 3 ml IVFLUSH QSHIFT [facility] Last Admin: 05/25/22 09:06 Dose: 3 ml Documented By: DULCE Sulfasalazine (Sulfasalazine 500 Mg Tablet) 500 mg PO BID [facility] Last Admin: 05/25/22 09:05 Dose: 500 mg Documented By: DULCE Labs CBC & Chem 7: 05/25/22 05:19 05/25/22 05:19 Labs: Laboratory Results - last 24 hr 05/25/22 05/25/22 05/25/22 05:19 05:19 08:56 MCV 80.3 MCH 24.2 L MCHC 30.1 L RDW 14.9 Plt Count 226 MPV 9.0 L Immature Gran % (Auto) 0.4 Neut % (Auto) 59.3 Lymph % (Auto) 17.4 L Banks % (Auto) 11.5 H Eos % (Auto) 11.1 H Baso % (Auto) 0.3 Lymph # (Auto) 1.3 Banks # (Auto) 0.8 Eos # (Auto) 0.8 H Baso # (Auto) 0.0 Abs Immat Gran (auto) 0.03 Absolute Neuts (auto) 4.3 Absolute Nucleated RBC 0.000 Nucleated RBC % (auto) 0.0 Estim Creat Clear Calc 114.2 Estimated GFR > 60 Vancomycin Trough 14.1 Microbiology Microbiology Results: Microbiology 05/24/22 01:51 Blood Culture - Preliminary Blood - Venous No growth after 24 hours. 05/24/22 01:51 Blood Culture - Preliminary Blood - Venous No growth after 24 hours. Assessment and Plan (1) Cellulitis: Status: Acute Plan 46yo F with MCTD, SLE, RA, PAD, Charcot foot, COPD, hypothyroidism, hx CVA admitted with RLE cellulitis.? Also small ulcer on L 4th toe, debrided bluntly by surgeon. 1. RLE cellulitis vanco + zosyn - day #2 likely PO augmentin/doxy upon d/c ID input apprecaited 2. L 4th toe ulceration debrided by gen surg appears superficial and likely due to toe deformities causing constant rubbing 3. PAD reportedly on eliquis for this, continue 4. chronic copd cotninue baseline inh continue other baseline meds Patient continues to require hospitalization due to celluiltis not improved significantly enough for transition to oral meds Quality Stroke Does the patient have a stroke diagnosis?: No VTE Prior VTE?: No VTE Risk Level:: Medical - moderate - high VTE Device Contraindication: Treatment Not Indicated VTE Drug Contraindication: N/A - Med Ordered
--- NOTE | 2022-05-25 15:42 | P.PNID_ITS ---
Subjective Subjective Date of Service: 05/25/22 Critical Care Time (minutes): 15 Comment: she has still some hot area leg laterally she has pain with Bakers cyst and bruising Objective Data Labs CBC & Chem 7: 05/25/22 05:19 05/25/22 05:19 Labs: Laboratory Results - last 24 hr 05/25/22 05/25/22 05/25/22 05:19 05:19 08:56 WBC 7.3 RBC 3.56 L Hgb 8.6 L Hct 28.6 L MCV 80.3 MCH 24.2 L MCHC 30.1 L RDW 14.9 Plt Count 226 MPV 9.0 L Immature Gran % (Auto) 0.4 Neut % (Auto) 59.3 Lymph % (Auto) 17.4 L Esmeralda % (Auto) 11.5 H Eos % (Auto) 11.1 H Baso % (Auto) 0.3 Lymph # (Auto) 1.3 Esmeralda # (Auto) 0.8 Eos # (Auto) 0.8 H Baso # (Auto) 0.0 Abs Immat Gran (auto) 0.03 Absolute Neuts (auto) 4.3 Absolute Nucleated RBC 0.000 Nucleated RBC % (auto) 0.0 Creatinine 0.57 Estim Creat Clear Calc 114.2 Estimated GFR > 60 Vancomycin Trough 14.1 Microbiology Microbiology Results: Microbiology 05/24/22 01:51 Blood - Venous Blood Culture - Preliminary No growth after 24 hours. 05/24/22 01:51 Blood - Venous Blood Culture - Preliminary No growth after 24 hours. Physical Exam Vital Signs: Vital Signs: Last Vital Signs Temp 97.2 F 05/25/22 15:21 Pulse 85 05/25/22 15:21 Resp 20 05/25/22 15:21 BP 101/57 L 05/25/22 15:21 Pulse Ox 99 05/25/22 15:21 O2 Del Method 05/25/22 15:21 O2 Flow Rate 2 05/25/22 15:21 BMI result Body Mass Index 27.6 Const: General: cooperative Resp: Effort & Inspection: normal respiratory effort Cardio: Rate: regular rate Rhythm: regular rhythm GI: Palpation (GI): Soft to palpation and nontender Extrem: Other: improving redness lateral leg,still bruised and swollen Assessment and Plan Assessment and plan (1) Cellulitis: Problem details: Slt improvement Status: Acute Plan Continue current antibiotics Plan for Doxycycline and Augmentin on discharge Time Spent With Patient Time: Total time spent is greater than 50% in coordination of care (as documented) at patient's floor/unit and/or counseling patient:
[2022-05-25] MEDS: Nortriptyline HCl 25 MG CAPSULE 100 MG PO (21:37)
[2022-05-25] MEDS: Pravastatin Sodium 40 MG TABLET PO (21:37)
[2022-05-26] MEDS: Piperacillin Sodium/Tazobactam 3.375 GM in 0.9 % Sodium Chloride 50 ML IV ×2 (00:10→07:48)
[2022-05-26] MEDS: 0.9 % Sodium Chloride Flush 3 ML SYRINGE IVFLUSH ×2 (00:12→07:52)
[2022-05-26] MEDS: Butalb/Acetamin/Caff 50/325/40 TABLET 1 TAB PO (00:26)
[2022-05-26 03:41] VITALS: BP 116/60; PULSE 87; RESP 18; TEMP 36.3; O2SAT 98
[2022-05-26] MEDS: Levothyroxine Sodium 175 MCG TABLET PO (06:39)
[2022-05-26] MEDS: Folic Acid 1 MG TABLET PO (07:52)
[2022-05-26] MEDS: Famotidine 20 MG TABLET PO (07:52)
[2022-05-26] MEDS: predniSONE 5 MG TABLET PO (07:52)
[2022-05-26] MEDS: Apixaban 5 MG TABLET PO (07:53)
[2022-05-26] MEDS: sulfaSALAzine 500 MG TABLET PO (07:53)
[2022-05-26] MEDS: FLUoxetine HCl 20 MG CAPSULE PO (07:53)
[2022-05-26] MEDS: Hydroxychloroquine Sulfate 200 MG TABLET PO (07:53)
[2022-05-26] MEDS: Multivitamin TABLET 1 TAB PO (07:53)
[2022-05-26] MEDS: Loratadine 10 MG TABLET PO (07:53)
[2022-05-26] MEDS: buPROPion HCl XL 150 MG TAB.ER.24H PO (07:53)
[2022-05-26 07:55] VITALS: BP 123/69; PULSE 84; RESP 18; TEMP 36.3; O2SAT 100
[2022-05-26 08:10] VITALS: PULSE 70; RESP 18; O2SAT 99
[2022-05-26] MEDS: Fluticasone Propionate 250 MCG BLST.W.DEV 1 PUFF INHALE (08:10)
[2022-05-26 08:59] LABS: Hematocrit 28.6 % (37.0-47.0); Hemoglobin 8.4 g/dl (12.0-16.0); Mean Corpuscular HGB Conc 29.4 g/dl (31.0-35.0); Mean Corpuscular Volume 81.7 fL (80.0-98.0); Mean Platelet Volume 8.6 fL (9.4-12.3); Platelet Count 234 X10*3/uL (160-400); White Blood Count 5.6 X10*3/uL (4.8-10.8)
[2022-05-26 09:12] LABS: Vancomycin Trough 16.2 mcg/mL (10.0-20.0)
[2022-05-26 09:21] LABS: Anion Gap 9 (12-20); Blood Urea Nitrogen 9 mg/dL (9-16); Calcium 8.3 mg/dL (8.4-10.2); Carbon Dioxide 30 mmol/L (22-29); Chloride 105 mmol/L (96-108); Creatinine Clr Calc Pharmacy 104.9; Estimated Glomerular Filt Rate > 60; Glucose Random 100 mg/dL (60-115); Potassium 4.4 mmol/L (3.3-5.1); Sodium 140 mmol/L (135-145)
--- NOTE | 2022-05-26 10:01 | HE.PHANOTE ---
DEA TAYLOR CONTINUE CURRENT DOSE, NEXT TROUGH 05/27 @1999
--- NOTE | 2022-05-26 10:10 | P.DS_ITS ---
DS: Providers Provider Date of Service: 05/26/22 Date of admission: 05/24/22 03:04 Primary care physician: Barbie Brown MD Consults: 05/24/22 03:07 Consult to General Surgery Routine Consulting Provider: Ludin Pompa Reason for consultation: RLE cellulitis; charcoat foot; left 4th toe ulcer Consult to Infectious Diseases Routine Consulting Provider: Karen Tabor Reason for consultation: RLE cellulitis; charcoat foot; left 4th toe ulcer DS: Diagnosis Discharge Diagnosis (1) Cellulitis: Status: Acute (2) Ulcer of lower extremity: Status: Acute (3) Charcot's joint of foot: Status: Acute (4) Rheumatoid arthritis: Status: Acute DS: Summary Hospital Course Hospital Course: From the admission H&P: 46-year-old female with a past medical history of hypothyroidism, CVA, COPD, fibromyalgia, lupus, rheumatoid arthritis, peripheral arterial disease, right foot charge codes joint, varicose veins, history of C diff, mixed connective tissue disease; presented to the hospital today with a chief complaint of right leg pain redness and swelling.? Patient reports that about a week ago she had a fall and noted to have ecchymosis/bruising on her right lower extremity on the medial and lateral side of the thigh; for the past 2 days she noted to have increased pain and swelling of her right leg; denies any fevers and chills.? Patient also reports an open ulcer on her left 4th toe.? Denies any chest pain palpitations lightheadedness or dizziness.? Denies any numbness tingling or focal weakness.? Hospital Course: Patient was started on broad-spectrum IV antibiotics. She had a small superficial ulcer on her left 4th toe which General surgery debrided. She was evaluated by Infectious Disease who recommended IV antibiotics and once bacteremia was ruled out she was transitioned to oral Augmentin and doxycycline. 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 Short-term rehabilitation transition was offered, however the patient declined and opted to go home. Time Spent with Patient Time attestation: Total time spent providing and/or coordinating discharge services: Discharge coordination time: Greater than 30 minutes Quality: Safe Use of Opioids Does Pt have an Active Cancer Diagnosis on the Problem List?: No Quality: Stroke Does the patient have a stroke diagnosis?: No Physical Exam Vital Signs: Vital Signs: Last Vital Signs Temp 97.3 F 05/26/22 07:55 Pulse 70 05/26/22 08:10 Resp 18 05/26/22 08:10 BP 123/69 05/26/22 07:55 Pulse Ox 100 05/26/22 07:55 O2 Del Method 05/26/22 07:55 O2 Flow Rate 2 05/26/22 07:55 BMI result Body Mass Index 27.6 Const: Other: General - no acute distress, appears comfortable Cardiovascular - regular rate and rhythm, S1-S2 Lungs - normal respiratory effort, clear to auscultation bilaterally, no wheezing Abdomen - soft, nontender, no rebound or guarding Extremities - brusing RLE; RLE edema > LLE; L 4th toe ulcer Neuro - awake and alert, no focal deficits DS: Data Data Completed and Pending Completed studies during hospitalization [Text1]: Procedures Assistance with Respiratory Ventilation, Less than 24 Consecutive Hours, Continuous Positive Airway Pressure (11/25/21) Excision of Left Lower Leg Subcutaneous Tissue and Fascia, Open Approach, Diagnostic (08/31/20) Insertion of Endotracheal Airway into Trachea, Via Natural or Artificial Opening Endoscopic (11/25/21) Insertion of Infusion Device into Superior Vena Cava, Percutaneous Approach (11/25/21) Introduction of Baricitinib into Mouth and Pharynx, External Approach, [employer] 6 (11/25/21) Introduction of Remdesivir Anti-infective into Peripheral Vein, Percutaneous Approach, [employer] 5 (11/25/21) Introduction of Vasopressor into Peripheral Vein, Percutaneous Approach (11/25/21) Respiratory Ventilation, 24-96 Consecutive Hours (11/25/21) Respiratory Ventilation, Greater than 96 Consecutive Hours (11/25/21) Transfusion of Nonautologous Red Blood Cells into Peripheral Vein, Percutaneous Approach (11/25/21) Labs on day of discharge: Laboratory Results - last 24 hr 05/26/22 05/26/22 05/26/22 08:11 08:11 08:11 WBC 5.6 RBC 3.50 L Hgb 8.4 L Hct 28.6 L MCV 81.7 MCH 24.0 L MCHC 29.4 L RDW 15.0 Plt Count 234 MPV 8.6 L Absolute Nucleated RBC 0.000 Nucleated RBC % (auto) 0.0 Sodium 140 Potassium 4.4 Chloride 105 Carbon Dioxide 30 H Anion Gap 9 L BUN 9 Creatinine 0.62 Estim Creat Clear Calc 104.9 Estimated GFR > 60 Random Glucose 100 Calcium 8.3 L Vancomycin Trough 16.2 Preliminary micro results at discharge 05/24/22 01:51 Blood Culture - Preliminary Blood - Venous No growth after 48 hours. 05/24/22 01:51 Blood Culture - Preliminary Blood - Venous No growth after 48 hours. Discharge Plan Discharge Patient Disposition: Home, Self-Care Discharge Diagnosis: Cellulitis Referrals: Barbie Dunn MD [Primary Care Provider] - 1 Week Discharge Medications: New amoxicillin-pot clavulanate 875-125 mg tablet 1 tab PO Q12H Qty: 14 0RF doxycycline hyclate 100 mg capsule 100 mg PO BID Qty: 14 0RF Continued folic acid 1 mg tablet 1 mg PO DAILY Qty: 30 3RF hydroxychloroquine 200 mg tablet 200 mg PO BID Qty: 60 3RF albuterol sulfate 2.5 mg /3 mL (0.083 %) solution for nebulization 2.5 mg inhalation Q6H PRN (Reason: Shortness Of Breath Or Wheezing) prednisone 5 mg tablet 5 mg PO DAILY bupropion HCl 100 mg tablet sustained-release 12 hr 100 mg PO BID albuterol sulfate 90 mcg/actuation HFA aerosol inhaler 2 puff inhalation Q4H PRN (Reason: Shortness Of Breath Or Wheezing) sulfasalazine 500 mg Tablet 500 mg PO BID loratadine 10 mg Tablet 10 mg PO DAILY multivitamin Tablet 1 tab PO DAILY fluticasone propionate [Flovent HFA] 220 mcg/actuation Hfa Aerosol Inhaler 1 puff INHALATION BID apixaban 5 mg Tablet 5 mg PO BID levothyroxine 175 mcg Tablet 175 mcg PO DAILY tramadol 50 mg Tablet 50 mg PO Q8H PRN (Reason: pain) Qty: 0 0RF fluconazole [Diflucan] 150 mg tablet 150 mg PO Q3D Qty: 2 0RF famotidine 20 mg tablet 1 tab PO DAILY nortriptyline 75 mg capsule 100 mg PO BEDTIME fluoxetine [Prozac] 40 mg capsule 20 mg PO DAILY lorazepam 1 mg tablet 1 mg PO BID PRN (Reason: Anxiety) pravastatin 40 mg tablet 40 mg PO BEDTIME (DME) nebulizer and compressor [JEDI MIND Aerosol Delivery System] Device See Rx Instructions .ROUTE DIRECTED Qty: 1 Rx Instructions: As directed Discontinued doxycycline hyclate 100 mg tablet 100 mg PO BID 5 Days Qty: 10 0RF Discharge Orders: Discharge Order (Routine); Ordered 05/26/22 Ordered By: Richard Garner Diet: Advance to usual diet Activity on Discharge: As tolerated Stand Alone Forms: Patient Portal Discharge page Care Plan Goals: To stay healthy and out of the hospital. Health Concerns: Cellulitis Plan of Treatment: Take 7 more days of Augmentin/Doxy Assessment: see d/c summary
--- NOTE | 2022-05-26 10:59 | MHC.CM.PN ---
PT WILL DC HOME TODAY WITH RESUMPTION OF GASTROENTEROLOGY NURSE SERVICES PT TO ARRANGE TRANSPORT
== END 2022-05-26 12:20 | disposition home or self-care (01) | DRG 603 ==
LOC: HO.ED 01:48 → HO.EDOVER 03:09 → HO.S3 22:19
PROVIDERS: Family Medicine; Admitting Provider Hospitalist; Emergency Provider Emergency Medicine; PCP Family Medicine; Visit Provider Family Medicine
DX: L03.115 Cellulitis of right lower limb (principal); A52.16 Charcot's arthropathy (tabetic); M35.1 Other overlap syndromes; J44.9 Chronic obstructive pulmonary disease, unspecified; M06.9 Rheumatoid arthritis, unspecified; E03.9 Hypothyroidism, unspecified; M32.9 Systemic lupus erythematosus, unspecified; I73.9 Peripheral vascular disease, unspecified; Z20.822 Contact with and (suspected) exposure to COVID-19; Z86.16 Personal history of COVID-19; Z86.73 Personal history of transient ischemic attack (TIA), and cerebral infarction without residual deficits; Z87.891 Personal history of nicotine dependence; Z88.1 Allergy status to other antibiotic agents; Z79.51 Long term (current) use of inhaled steroids; Z79.52 Long term (current) use of systemic steroids; Z79.890 Hormone replacement therapy; Z79.899 Other long term (current) drug therapy
CPT/HCPCS: 36415; 80048; 80053; 80076; 80202; 82565; 83605; 85025; 85027; 85610; 86140; 87040; 87635; 93971; 94640; 96365; 96367; 99285; J1170; J2543; J3370

== ENCOUNTER 2022-08-17 08:00 | Outpatient (RCR) | payer MEDICARE, MEDICAID, SELFPAY | END 2022-09-13 14:00 | disposition home or self-care (01) | LOC: HO.WCC 08:00 | PROVIDERS: PCP Family Medicine; Visit Provider Physician Assistant | DX: E11.621 Type 2 diabetes mellitus with foot ulcer (principal); L97.522 Non-pressure chronic ulcer of other part of left foot with fat layer exposed; M32.9 Systemic lupus erythematosus, unspecified; M14.671 Charcot's joint, right ankle and foot; M05.79 Rheumatoid arthritis with rheumatoid factor of multiple sites without organ or systems involvement; I25.10 Atherosclerotic heart disease of native coronary artery without angina pectoris; I10 Essential (primary) hypertension; I73.00 Raynaud's syndrome without gangrene; F17.210 Nicotine dependence, cigarettes, uncomplicated; I25.2 Old myocardial infarction | CPT/HCPCS: 17250; 99212 ==

== ENCOUNTER 2022-11-08 01:05 | Inpatient (IN) | payer MEDICARE, MEDICAID, SELFPAY ==
[2022-11-08] VITALS (9 sets, daily range): BP systolic 92–161; BP diastolic 54–78; PULSE 82–99; RESP 14–18; TEMP 36.2–36.9; O2SAT 90–100; BMI 26.2; BMI 26.5
--- NOTE | ~2022-11-08 | MR_ITS ---
EXAMINATION: MR OF THE ELBOW WITHOUT CONTRAST, RIGHT CLINICAL INFORMATION: Right elbow abscess. COMPARISON: Prior examinations including most recent CT of the elbow 11/12/2022. TECHNIQUE: MRI of the right elbow was performed without contrast only on a high-field MRI scanner. The patient refused contrast . FINDINGS: There is abnormality of the distal 4 cm of the triceps tendon. At the distal insertion, there is heterogeneous increased signal compatible with partial tearing and possibly a small portion of irregular full-thickness tearing through the central tendon. More proximally, there is a tendon gap of the deep portion of the tendon measuring 7 mm transverse and 10 mm craniocaudal. Heterogeneous abnormal increased T2 signal and decreased T1 signal extends through an irregular full-thickness defect in the distal tendon located 2 cm proximal to its insertion. The abnormal signal extends both posterior and anterior to the more proximal tendon up to 9 cm deep to the tendon. This abnormal signal also continues distal to the olecranon in the subcutaneous soft tissues and possibly the olecranon bursa over approximately 3.5 cm craniocaudal. The signal abnormality extends up to 4.9 cm transverse and up to 2.1 cm AP. There is mild ill-defined increased abnormal T2 signal within the anconeus muscle and extensor carpi ulnaris in the proximal forearm. This likely reflects myositis. No localized fluid collection within these muscles. There is a trace joint effusion. The bone and joints appear intact. The remaining muscles and tendons are unremarkable. Minimal abnormality circumferentially about the posterior elbow may reflect additional edema or cellulitis. MR/MR elbow RT wo con IMPRESSION: There is an irregular incomplete full-thickness defect in the central portion of the triceps tendon located 2 cm proximal to the insertion which could reflect a tear or erosive change related to the suspected inflammatory process.. Possible additional irregular subtle partial thickness or irregular tearing at the insertion There is also a complex abnormal signal throughout the distal triceps muscle deep to the triceps tendon as well as superficial to the triceps tendon in the deep subcutaneous soft tissues as well as olecranon bursa. Similar findings are present on the prior CT examination. The degree of suspected fluid may be less than that noted previously. The overall abnormal process extends at least 13 cm in length craniocaudal. The full proximal extent of the process is not determined as it appears to extend outside of the [id number] of this examination proximally. The findings could be explained by an infectious/inflammatory process/myositis with abscess in the triceps muscle and resultant erosive change/tear in the triceps tendon along with cellulitis/abscess extending into the subcutaneous soft tissues and olecranon bursa. The degree of soft tissue abnormality/abscess appears less than that noted on the prior CT done 11/12/2022.
--- NOTE | ~2022-11-08 | XR_ITS ---
EXAMINATION: XR CHEST CLINICAL INFORMATION: COPD COMPARISON: 02/15/2022 TECHNIQUE: Frontal view of the chest was obtained. FINDINGS: Lung volumes are symmetric. Scattered regions of streaky opacity are again noted bilaterally, suggestive of scarring when compared to prior. No new acute consolidation is seen. No evidence of pneumothorax, pleural effusion, or pulmonary edema. The cardiomediastinal contour is unremarkable. No acute osseous findings are seen. XR/XR chest 1V IMPRESSION: No new acute findings. Scattered regions of suspected scarring bilaterally, similar to prior.
--- NOTE | ~2022-11-08 | CT_ITS ---
EXAMINATION: CT HEAD WITHOUT CONTRAST CLINICAL INFORMATION: Fall, on anticoagulation COMPARISON: 11/13/2017 TECHNIQUE: Contiguous axial imaging was performed from the skull base to vertex without intravenous administration of contrast. This CT examination was performed using dose optimization techniques as appropriate, variously including the following: *Automated exposure control *Adjustment of mA and/or kV according to patient size (this includes techniques or standardized protocols for targeted exams where dose is matched to indication/reason for exam; i.e. extremities or head) *Use of iterative reconstruction technique DLP: 609 mGy-cm FINDINGS: There is no evidence of acute intracranial hemorrhage or territorial infarction. No abnormal mass-effect or midline shift is seen. Montiel to white matter differentiation is well preserved. No extra-axial fluid collections are identified. The ventricles are normal in size. Small region of chronic hypoattenuation in the left temporal lobe is unchanged from prior. The osseous structures and soft tissues are normal. The mastoid air cells and visualized portions of the paranasal sinuses are well-aerated. CT/CT head/brain wo IV con IMPRESSION: No acute intracranial pathology.
--- NOTE | ~2022-11-08 | XR_ITS ---
EXAMINATION: XR ELBOW, RIGHT CLINICAL INFORMATION: Deep wound COMPARISON: None TECHNIQUE: AP, lateral, and oblique views of the right elbow. FINDINGS: Osseous alignment is anatomic. No acute fracture is seen. No significant elbow effusion. Mild spurring of the humeral head is noted. There is prominent soft tissue swelling of the elbow dorsally. No radiopaque foreign body is seen. XR/XR elbow RT 2V IMPRESSION: Prominent soft tissue swelling of the elbow dorsally. No acute osseous findings.
--- NOTE | ~2022-11-08 | XR_ITS ---
EXAMINATION: XR FOOT, RIGHT CLINICAL INFORMATION: Charcot foot COMPARISON: None TECHNIQUE: AP, lateral, and oblique views of the right foot. FINDINGS: There is collapse of the midfoot with poorly defined articular spaces along with subchondral cyst formation and subtle hypertrophic spurring. Surrounding soft tissue swelling is present. There are subacute appearing fractures of the distal shafts of the third, fourth, and fifth metatarsals with some surrounding calcified callus formation. Fracture lines remain visible and demonstrate mild displacement. Screw is present in the first metatarsal head. There is arthritic change at the first MTP joint with joint space narrowing and partial destruction of the metatarsal head. There is medial deviation at the third PIP joint and lateral deviation of the fourth PIP joint. XR/XR foot RT 2V IMPRESSION: 1. Collapse of the midfoot with arthritic changes and surrounding soft tissue swelling. 2. Subacute appearing fractures of the distal shafts of the third, fourth, and fifth metatarsals. 3. Chronic appearing arthritic changes at the first MTP joint, with joint space narrowing and partial destruction of the metatarsal head.
--- NOTE | 2022-11-08 03:17 | ED.GENADULT ---
HPI - General Adult General Chief complaint: Fall Stated complaint: multiple extremity injury/infection Time Seen by Provider: 11/08/22 02:20 Source: patient Mode of arrival: wheelchair Limitations: no limitations History of Present Illness HPI narrative: Patient 47 years old with history of COPD Charcot joint disease rheumatoid arthritis peripheral artery disease on chronic prednisone and Eliquis comes here for frequent falls with nonhealing wound in the right elbow and non healing callus in the right foot patient does have infected bursitis right elbow with surrounding cellulitis visiting nurse been doing the dressing at home patient came in very unkept condition Related Data Home Medications Medication Instructions Recorded Confirmed lorazepam 1 mg tablet 1 mg PO BID PRN Anxiety 08/15/20 11/08/22 pravastatin 40 mg tablet 40 mg PO BEDTIME 08/15/20 11/08/22 fluoxetine 40 mg capsule (Prozac) 20 mg PO DAILY 08/20/20 11/08/22 albuterol sulfate 2.5 mg/3 mL 2.5 mg inhalation Q6H PRN 08/31/20 11/08/22 (0.083 %) solution for nebulization Shortness Of Breath Or Wheezing albuterol sulfate 90 mcg/actuation 2 puff inhalation Q4H PRN 08/31/20 11/08/22 aerosol inhaler Shortness Of Breath Or Wheezing bupropion HCl 100 mg tablet,12 hr 100 mg PO BID 08/31/20 11/08/22 sustained-release prednisone 5 mg tablet 5 mg PO DAILY 08/31/20 11/08/22 nortriptyline 75 mg capsule 100 mg PO BEDTIME 04/18/21 11/08/22 apixaban 5 mg tablet 5 mg PO BID 10/21/21 11/08/22 fluticasone propionate 220 1 puff inhalation BID 10/21/21 11/08/22 mcg/actuation HFA aerosol inhaler (Flovent HFA) levothyroxine 175 mcg tablet 175 mcg PO DAILY 10/21/21 11/08/22 loratadine 10 mg tablet 10 mg PO DAILY 10/21/21 11/08/22 multivitamin 1 tab PO DAILY 10/21/21 11/08/22 nebulizer and compressor (Vios #1 ea 02/15/22 05/24/22 Aerosol Delivery System) famotidine 20 mg tablet 1 tab PO DAILY 05/24/22 11/08/22 [id number]-[id number]-[id number] 2 tab PO DAILY PRN headache 11/08/22 11/08/22 50 mg-325 mg-40 mg tablet Previous Rx's Medication Instructions Recorded folic acid 1 mg tablet 1 mg PO DAILY #30 tabs 05/16/21 hydroxychloroquine 200 mg tablet 200 mg PO BID #60 tabs 05/16/21 tramadol 50 mg tablet 50 mg PO Q8H PRN pain #0 tabs 12/18/21 Allergies Allergy/AdvReac Type Severity Reaction Status Date / Time clarithromycin Allergy Intermediate FACIAL Verified 11/08/22 01:19 [CLARITHROMYCIN] SWELLING/REDNESS, facial rash, facial rash, facial rash, facial rash Review of Systems Review of Systems: Yes all other systems are reviewed and are negative [facility] Past Medical History Medical History C. difficile colitis Cellulitis Cellulitis Cellulitis of right leg COPD (chronic obstructive pulmonary disease) CVA (cerebral vascular accident) Fibromyalgia Hypothyroid Immunosuppression due to chronic steroid use Lupus Mixed connective tissue disease PAD (peripheral artery disease) Pneumonia due to COVID-19 virus Proteinuria Redness and swelling of lower leg Respiratory failure with hypoxia Rheumatoid arthritis Secondary bacterial pneumonia Varicose veins of right lower extremity with inflammation Surgical History History of breast lump/mass excision History of bunionectomy History of cholecystectomy History of excision of mass History of partial hysterectomy Family History Family History Father No problems noted. Mother Lung cancer Social History Social History Household Members: Children Housing: House Do you presently have visiting nurse or other home services: No Alcohol intake: never Patient Tobacco Use Status: Former Tobacco user Quit Date: 03/2022 Tobacco use type: Cigarette Cigarette Packs Per Day: 1 Cigarettes Per Day: 20.0 Years Smoked: 29 Smoked in Last 30 Days: Yes Second Hand Smoke Exposure: No Use of substances other than those prescribed or required for medical reasons: No Advance Directives: Yes Advance Directives on File: Yes Advance Directives Date on File: 11/26/21 Patient : No service: No Current occupational status: unemployed and disabled Physical Exam ED Vital Signs: Vital Signs - 24 hr 11/08/22 01:09 11/08/22 04:19 Temperature 98.3 F 98.2 F Pulse Rate 96 87 Respiratory Rate 16 16 Blood Pressure 113/59 L 119/62 Pulse Oximetry 97 95 Oxygen Delivery Method Room Air Room Air BMI result Body Mass Index 26.2 Appearance: Alert. Oriented X3. No acute distress. Frail weighing about 64 kg lethargic and sleepy Eyes: PERRLA, No Nystagmus ENT: Pharynx normal. Oral Mucosa moist Neck: Normal inspection. Neck supple. CVS: Normal heart rate and rhythm. Pulses normal. Respiratory: No respiratory distress. Equal air entry bilateral, no wheezing/rales/rhonchi Abdomen: Soft and nontender. Bowel sounds are present, no mass palpable, no CVA tenderness Skin: Skin warm and dry. Normal skin color. Normal skin turgor. Extremities: No lower extremity edema. No calf tenderness open wound right elbow with surrounding cellulitis Charcot joints in the foot with swollen callus and right foot with surrounding erythema Neuro: Oriented X 3. No motor deficit. No sensory deficit.No cerebellar signs , cranial nerves II-XII intact Medications Administered Generic Name Dose Route Start Last Admin Trade Name Freq PRN Reason Stop Dose Admin Sodium Chloride 1,000 mls @ 999 mls/hr 11/08/22 04:55 11/08/22 05:10 Ns IV 11/08/22 05:55 999 mls/hr .Q1H1M ONE Administration Discontinued Medications Generic Name Dose Route Start Last Admin Trade Name Freq PRN Reason Stop Dose Admin Piperacillin Sod/Tazobactam 50 mls @ 100 mls/hr 11/08/22 03:19 11/08/22 04:21 Sod 2.25 gm/ Sodium Chloride IV 11/08/22 03:48 Infused ONCE ONE Infusion Vancomycin HCl 1,000 mg/ 270 mls @ 270 mls/hr 11/08/22 03:19 11/08/22 04:26 Sodium Chloride IV 11/08/22 04:18 270 mls/hr ONCE ONE Administration Medical Decision Making Medical Decision Making [facility] Narrative: Patient with open wound right elbow with surrounding cellulitis with right foot cellulitis with Charcot joint disease in unkept condition unsafe to be at home will admit patient for IV antibiotic plan for placement Lab Data MDM Lab Attestation statement: I reviewed the patient's lab results. Result Diagrams: 11/08/22 03:36 11/08/22 03:36 Labs: Lab Results 11/08/22 11/08/22 11/08/22 Range/Units 03:36 03:36 03:36 WBC 14.5 H (4.8-10.8) X10*3/uL RBC 4.82 D (4.20-5.50) X10*6/uL Hgb 11.1 L D (12.0-16.0) g/dl Hct 36.6 L D (37.0-47.0) % MCV 75.9 L (80.0-98.0) fL MCH 23.0 L (27.0-33.0) pg MCHC 30.3 L (31.0-35.0) g/dl RDW 13.2 (11.0-16.0) % Plt Count 310 D (160-400) X10*3/uL MPV 8.3 L (9.4-12.3) fL Immature Gran % (Auto) 0.9 H (0.0-0.4) % Neut % (Auto) 76.6 H (45-73) % Lymph % (Auto) 12.3 L (20-40) % [place] % (Auto) 7.6 (2-11) % Eos % (Auto) 2.1 (0-4) % Baso % (Auto) 0.5 (0-2) % Lymph # (Auto) 1.8 (1.2-4.9) X10*3/uL [place] # (Auto) 1.1 (0.1-1.2) X10*3/uL Eos # (Auto) 0.3 (0.0-0.4) X10*3/uL Baso # (Auto) 0.1 (0.0-0.2) X10*3/uL Abs Immat Gran (auto) 0.13 H (0.00-0.03) X10*3/uL Absolute Neuts (auto) 11.1 H (2.0-8.3) x10*3/uL Absolute Nucleated RBC 0.000 (0.0-0.012) X10*3/uL Nucleated RBC % (auto) 0.0 (0.0-0.2) /100WBC Sodium 140 (135-145) mmol/L Potassium 3.2 L D (3.3-5.1) mmol/L Chloride 100 (96-108) mmol/L Carbon Dioxide 32 H (22-29) mmol/L Anion Gap 11 L (12-20) BUN 7 L (9-16) mg/dL Creatinine 0.93 (0.5-1.4) mg/dL Estim Creat Clear Calc 67.5 Estimated GFR > 60 Random Glucose 105 (60-115) mg/dL Lactic Acid 1.0 (0.5-2.0) mmol/L Calcium 8.4 (8.4-10.2) mg/dL Magnesium 1.8 (1.6-2.6) mg/dL Total Bilirubin 0.3 (0.0-1.0) mg/dL AST 14 (5-31) U/L ALT 11 (0-31) U/L Alkaline Phosphatase 213 H (39-117) U/L Total Protein 5.1 L (6.5-8.0) g/dL Albumin 2.8 L (3.5-5.0) g/dL COVID-19 ([facility]) (Negative) COVID-19 Clin Com 11/08/22 Range/Units 03:36 WBC (4.8-10.8) X10*3/uL RBC (4.20-5.50) X10*6/uL Hgb (12.0-16.0) g/dl Hct (37.0-47.0) % MCV (80.0-98.0) fL MCH (27.0-33.0) pg MCHC (31.0-35.0) g/dl RDW (11.0-16.0) % Plt Count (160-400) X10*3/uL MPV (9.4-12.3) fL Immature Gran % (Auto) (0.0-0.4) % Neut % (Auto) (45-73) % Lymph % (Auto) (20-40) % [place] % (Auto) (2-11) % Eos % (Auto) (0-4) % Baso % (Auto) (0-2) % Lymph # (Auto) (1.2-4.9) X10*3/uL [place] # (Auto) (0.1-1.2) X10*3/uL Eos # (Auto) (0.0-0.4) X10*3/uL Baso # (Auto) (0.0-0.2) X10*3/uL Abs Immat Gran (auto) (0.00-0.03) X10*3/uL Absolute Neuts (auto) (2.0-8.3) x10*3/uL Absolute Nucleated RBC (0.0-0.012) X10*3/uL Nucleated RBC % (auto) (0.0-0.2) /100WBC Sodium (135-145) mmol/L Potassium (3.3-5.1) mmol/L Chloride (96-108) mmol/L Carbon Dioxide (22-29) mmol/L Anion Gap (12-20) BUN (9-16) mg/dL Creatinine (0.5-1.4) mg/dL Estim Creat Clear Calc Estimated GFR Random Glucose (60-115) mg/dL Lactic Acid (0.5-2.0) mmol/L Calcium (8.4-10.2) mg/dL Magnesium (1.6-2.6) mg/dL Total Bilirubin (0.0-1.0) mg/dL AST (5-31) U/L ALT (0-31) U/L Alkaline Phosphatase (39-117) U/L Total Protein (6.5-8.0) g/dL Albumin (3.5-5.0) g/dL COVID-19 ([facility]) Negative (Negative) COVID-19 Clin Com See Note Discharge Plan Discharge Clinical Impression: Cellulitis, Open wound of right elbow Patient Disposition: Admitted As Inpatient
[2022-11-08 03:43] LABS: MANUAL DIFF FLAG NO
[2022-11-08] MEDS: Piperacillin Sodium/Tazobactam 2.25 GM in 0.9 % Sodium Chloride 50 ML IV (03:43)
[2022-11-08 03:44] LABS: Basophils Absolute Auto 0.1 X10*3/uL (0.0-0.2); Basophils Percent Auto 0.5 % (0-2); Eosinophils Absolute Auto 0.3 X10*3/uL (0.0-0.4); Eosinophils Percent Auto 2.1 % (0-4); Hematocrit 36.6 % (37.0-47.0); Hemoglobin 11.1 g/dl (12.0-16.0); Imm Gran Abs Auto 0.13 X10*3/uL (0.00-0.03); Imm Gran Pct Auto 0.9 % (0.0-0.4); Lymphocytes Absolute Auto 1.8 X10*3/uL (1.2-4.9); Lymphocytes Percent Auto 12.3 % (20-40); Mean Corpuscular HGB Conc 30.3 g/dl (31.0-35.0); Mean Corpuscular Volume 75.9 fL (80.0-98.0); Mean Platelet Volume 8.3 fL (9.4-12.3); Monocytes Absolute Auto 1.1 X10*3/uL (0.1-1.2); Monocytes Percent Auto 7.6 % (2-11); Neutrophils Absolute Auto 11.1 x10*3/uL (2.0-8.3); Neutrophils Percent Auto 76.6 % (45-73); Platelet Count 310 X10*3/uL (160-400); Red Blood Count 4.82 X10*6/uL (4.20-5.50); Red Cell Distribution Width 13.2 % (11.0-16.0); White Blood Count 14.5 X10*3/uL (4.8-10.8)
[2022-11-08 03:59] LABS: COVID-19 Test Negative (Negative); IDNOW Serial# BCCEAD1C
--- NOTE | 2022-11-08 04:00 | PC.NURSE ---
blood work obtained and sent down to lab. IV in place 20 L AC. flushes well. medicated according to jan. pt brought to CT at this time
[2022-11-08 04:06] LABS: Alanine Aminotransferase 11 U/L (0-31); Albumin Level 2.8 g/dL (3.5-5.0); Alkaline Phosphatase 213 U/L (39-117); Anion Gap 11 (12-20); Aspartate Amino Transferase 14 U/L (5-31); Bilirubin Total 0.3 mg/dL (0.0-1.0); Blood Urea Nitrogen 7 mg/dL (9-16); Calcium 8.4 mg/dL (8.4-10.2); Carbon Dioxide 32 mmol/L (22-29); Chloride 100 mmol/L (96-108); Creatinine Clr Calc Pharmacy 67.5; Estimated Glomerular Filt Rate > 60; Glucose Random 105 mg/dL (60-115); Magnesium 1.8 mg/dL (1.6-2.6); Potassium 3.2 mmol/L (3.3-5.1); Sodium 140 mmol/L (135-145); Total Protein 5.1 g/dL (6.5-8.0)
[2022-11-08] MEDS: vancomycin HCL 1,000 MG in 0.9 % Sodium Chloride 250 ML 270 MG IV (04:26)
--- NOTE | 2022-11-08 04:27 | PC.NURSE ---
pt medicated according to jan once returned from ct
--- NOTE | 2022-11-08 04:53 | PC.NURSE ---
med rec completed dr urbano notified. no new orders at this time
[2022-11-08] MEDS: 0.9 % Sodium Chloride 1,000 ML 999 ML IV (05:10)
[2022-11-08] MEDS: Potassium Chloride/H20 10 MEQ/100 ML PIGGYBACK 100 MEQ IV (05:33)
--- NOTE | 2022-11-08 05:38 | PC.NURSE ---
pt medicated according to mar. pt arrousable to name
--- NOTE | 2022-11-08 06:14 | PM.IMHP ---
History of Present Illness Date of Service: 11/08/22 Chief Complaint: falling 7-year-old female with past medical history of COPD steroid dependent, history of pneumonia secondary to COVID-19, PD, CVA, lupus, mixed connective tissue disease, anxiety with panic attacks, rheumatoid arthritis, presents to the hospital with complaints of falling. On my interview patient is not cooperating, has her eyes closed, but awake, not answering my questions, unable to obtain much history from her. According to the ED physician patient comes from home, with complaints of frequent falls. She reported that she has had 2 falls and has had pain in her elbow. Unable to obtain review of system. Unable to obtain past medical history On arrival to the ED patient hemodynamically stable with no significant abnormal vitals Labs are significant for WBC count of 14.5, hemoglobin of 11.1, hematocrit 36.6, potassium of 3.2, labs otherwise unremarkable, she has an albumin of 2.8 COVID-[address] negative for acute intracranial pathology Right foot x-ray shows collapse of the midfoot with arthritic changes and surrounding soft tissue swelling, subacute appearing fractures of the distal shaft of the 3rd 4th and 5th metatarsals Right elbow x-ray shows prominent soft tissue swelling of the elbow dorsally no acute osseous findings Chest x-ray negative for any acute finding Review of Systems Review of Systems: Yes all other systems are reviewed and are negative [facility] Medical History C. difficile colitis Cellulitis Cellulitis Cellulitis of right leg COPD (chronic obstructive pulmonary disease) CVA (cerebral vascular accident) Fibromyalgia Hypothyroid Immunosuppression due to chronic steroid use Lupus Mixed connective tissue disease PAD (peripheral artery disease) Pneumonia due to COVID-19 virus Proteinuria Redness and swelling of lower leg Respiratory failure with hypoxia Rheumatoid arthritis Secondary bacterial pneumonia Varicose veins of right lower extremity with inflammation Family History Father No problems noted. Mother Lung cancer Surgical History History of breast lump/mass excision History of bunionectomy History of cholecystectomy History of excision of mass History of partial hysterectomy Social History Household Members: Children Housing: House Do you presently have visiting nurse or other home services: No Alcohol intake: never Patient Tobacco Use Status: Former Tobacco user Quit Date: 03/2022 Tobacco use type: Cigarette Cigarette Packs Per Day: 1 Cigarettes Per Day: 20.0 Years Smoked: 29 Smoked in Last 30 Days: Yes Second Hand Smoke Exposure: No Use of substances other than those prescribed or required for medical reasons: No Advance Directives: Yes Advance Directives on File: Yes Advance Directives Date on File: 11/26/21 Patient : No service: No Current occupational status: unemployed and disabled Meds Allergies Allergy/AdvReac Type Severity Reaction Status Date / Time clarithromycin Allergy Intermediate FACIAL Verified 11/08/22 01:19 [CLARITHROMYCIN] SWELLING/REDNESS, facial rash, facial rash, facial rash, facial rash Active Medications: Current Medications Pharmacy Consult (Consult Rx Vancomycin Dosing) 1 each MISCELLANE DAILY PRN PRN Reason: Consult order Home Medications Medication Instructions Recorded Confirmed Last Taken Type lorazepam 1 mg tablet 1 mg PO BID PRN Anxiety 08/15/20 11/08/22 08/30/20 History pravastatin 40 mg tablet 40 mg PO BEDTIME 08/15/20 11/08/22 08/30/20 History fluoxetine 40 mg capsule (Prozac) 20 mg PO DAILY 08/20/20 11/08/22 08/30/20 History albuterol sulfate 2.5 mg/3 mL 2.5 mg inhalation Q6H PRN 08/31/20 11/08/22 08/30/20 History (0.083 %) solution for nebulization Shortness Of Breath Or Wheezing albuterol sulfate 90 mcg/actuation 2 puff inhalation Q4H PRN 08/31/20 11/08/22 08/30/20 History aerosol inhaler Shortness Of Breath Or Wheezing bupropion HCl 100 mg tablet,12 hr 100 mg PO BID 08/31/20 11/08/22 08/30/20 History sustained-release prednisone 5 mg tablet 5 mg PO DAILY 08/31/20 11/08/22 08/30/20 History nortriptyline 75 mg capsule 100 mg PO BEDTIME 04/18/21 11/08/22 Unknown History apixaban 5 mg tablet 5 mg PO BID 10/21/21 11/08/22 Unknown History fluticasone propionate 220 1 puff inhalation BID 10/21/21 11/08/22 Unknown History mcg/actuation HFA aerosol inhaler (Flovent HFA) levothyroxine 175 mcg tablet 175 mcg PO DAILY 10/21/21 11/08/22 Unknown History loratadine 10 mg tablet 10 mg PO DAILY 10/21/21 11/08/22 Unknown History multivitamin 1 tab PO DAILY 10/21/21 11/08/22 Unknown History nebulizer and compressor (Vios #1 ea 02/15/22 05/24/22 Unknown History Aerosol Delivery System) famotidine 20 mg tablet 1 tab PO DAILY 05/24/22 11/08/22 Unknown History [id number]-[id number]-[id number] 2 tab PO DAILY PRN headache 11/08/22 11/08/22 Unknown History 50 mg-325 mg-40 mg tablet Physical Exam Vital Signs and Narrative: Vital Signs: Last Vital Signs Temp 98.0 F 11/08/22 05:58 Pulse 90 11/08/22 05:58 Resp 18 11/08/22 05:58 BP 112/61 11/08/22 05:58 Pulse Ox 95 11/08/22 05:58 O2 Del Method 11/08/22 05:58 BMI result Body Mass Index 26.2 Const: Other: Patient awake but not cooperating, has her eyes shot, and unwilling to open them to talk to me Poor hygiene Ill-appearing General: no acute distress Eyes: General: appearance normal, both eyes and all related structures Resp: Effort & Inspection: normal respiratory effort Auscultation: clear to auscultation bilaterally Cardio: Rate: regular rate Rhythm: regular rhythm GI: Palpation (GI): Soft to palpation Auscultation: normal bowel sounds Skin: Other: Right elbow erythema, warmth, open wound Extrem: Other: Abnormal appearing feet bilaterally, no erythema or warmth Results Labs CBC and Chem 7: 11/08/22 03:36 11/08/22 03:36 Labs: Laboratory Results - last 24 hr 11/08/22 11/08/22 11/08/22 03:36 03:36 03:36 MCV 75.9 L MCH 23.0 L MCHC 30.3 L RDW 13.2 Plt Count 310 D MPV 8.3 L Immature Gran % (Auto) 0.9 H Neut % (Auto) 76.6 H Lymph % (Auto) 12.3 L [place] % (Auto) 7.6 Eos % (Auto) 2.1 Baso % (Auto) 0.5 Lymph # (Auto) 1.8 [place] # (Auto) 1.1 Eos # (Auto) 0.3 Baso # (Auto) 0.1 Abs Immat Gran (auto) 0.13 H Absolute Neuts (auto) 11.1 H Absolute Nucleated RBC 0.000 Nucleated RBC % (auto) 0.0 Anion Gap 11 L Estim Creat Clear Calc 67.5 Estimated GFR > 60 Random Glucose 105 Lactic Acid 1.0 Calcium 8.4 Magnesium 1.8 Total Bilirubin 0.3 AST 14 ALT 11 Alkaline Phosphatase 213 H Total Protein 5.1 L Albumin 2.8 L COVID-19 ([facility]) COVID-19 Clin Com 11/08/22 03:36 MCV MCH MCHC RDW Plt Count MPV Immature Gran % (Auto) Neut % (Auto) Lymph % (Auto) [place] % (Auto) Eos % (Auto) Baso % (Auto) Lymph # (Auto) [place] # (Auto) Eos # (Auto) Baso # (Auto) Abs Immat Gran (auto) Absolute Neuts (auto) Absolute Nucleated RBC Nucleated RBC % (auto) Anion Gap Estim Creat Clear Calc Estimated GFR Random Glucose Lactic Acid Calcium Magnesium Total Bilirubin AST ALT Alkaline Phosphatase Total Protein Albumin COVID-19 ([facility]) Negative COVID-19 Clin Com See Note Imaging Radiologist's Impressions: Impressions Chest X-Ray 11/08/22 04:01 IMPRESSION: No new acute findings. Scattered regions of suspected scarring bilaterally, similar to prior. Elbow X-Ray 11/08/22 04:01 IMPRESSION: Prominent soft tissue swelling of the elbow dorsally. No acute osseous findings. Foot X-Ray 11/08/22 04:01 IMPRESSION: 1. Collapse of the midfoot with arthritic changes and surrounding soft tissue swelling. 2. Subacute appearing fractures of the distal shafts of the third, fourth, and fifth metatarsals. 3. Chronic appearing arthritic changes at the first MTP joint, with joint space narrowing and partial destruction of the metatarsal head. Head CT 11/08/22 04:15 IMPRESSION: No acute intracranial pathology. Assessment and Plan (1) Open wound of right elbow: Status: Acute (2) Cellulitis: Status: Acute (3) Charcot's joint of foot: Status: Acute (4) Falling: Status: Acute (5) Hypokalemia: Status: Acute Plan 47-year-old female with past medical history of COPD on steroids chronically, CVA, P 80, lupus, among others who presents the hospital with complaints of falling # for acute right elbow cellulitis - with open wound - pending ESR and CRP - elevated WBC count - afebrile - warm, erythematous - will treat with IV antibiotics - follow cultures # open wound of right elbow - management as above - wound care # falling - possibly secondary to Charcot's joint of foot? As well as metatarsal subacute fracture - will consult orthopedic surgery - physical therapy consulted # hypokalemia - repleted - follow BMP # COPD - does not appear to be in exacerbation although patient not cooperative with review of system - continue home inhalers - will obtain ABG - continue chronic steroid # CVA - continue apixaban - high-dose statin # PA D - apparently on Eliquis for this - continue # hypothyroidism' - continue levothyroxine # anxiety - continue mood stabilizer DVT prophylaxis: Eliquis Given patient's acute cellulitis, patient required minimum 2 night inpatient hospital stay for further management and monitoring Time Spent With Patient Time: Total time managing care of this patient today ____ minutes. Quality Stroke Does the patient have a stroke diagnosis?: No VTE Prior VTE?: No VTE Risk Level:: Medical - moderate - high VTE Device Contraindication: Treatment Not Indicated VTE Drug Contraindication: N/A - Med Ordered
--- OUTSIDE RECORDS SUMMARY | 2022-11-08 06:21 | XMS_ITS | Continuity of Care Document ---
:1975 Author Organization [facility] Address [address] [place] [address]- Care Team Providers Name Role Phone Sam Brown MD, Barbie Primary Care Physician [facility] [id number] Date(s): 02/11/20 - 05/19/20 [facility] [address] [place] [address]- [facility] Attending Physician: Mylene Burns MD Referring Physician: Barbie Dunn MD Allergies, Adverse Reactions, Alerts Substance Reaction Severity Status clarithromycin facial swelling Active Medications Ativan 1 mg oral tablet 1 tablet = 1 mg, By Mouth, 3 times a day, PRN Anxiety, 0 Refills, Maintenance, 11/23/15 20:18:44, Tablet Start Date: 11/23/15 Status: OrderedbuPROPion 100 mg oral tablet 1 tablet = 100 mg, By Mouth, 2 times a day, 0 Refills, Maintenance, 02/10/19 14:30:16 EDT Start Date: 02/10/19 Status: OrderedCoumadin 5 mg oral tablet 1 tablet = 5 mg, By Mouth, Daily, # 30 tablet, 0 Refills, Maintenance, 12/01/15 15:13:35, Tablet Start Date: 12/01/15 Status: Orderedlevothyroxine 137 mcg (0.137 mg) oral capsule 1 capsule = 0.137 mg, By Mouth, Daily, # 30 capsule, 11 Refills, Maintenance, 06/22/14 14:00:48, Capsule, 1 capsule By Mouth Daily,x30 days Start Date: 06/22/14 Stop Date: 06/17/15 Status: Orderedloratadine 10 mg oral tablet 10 mg, 1, tablet, By Mouth, Daily, Refills 0, Maintenance, 02/10/19 14:30:43 EDT Start Date: 02/10/19 Status: OrderedMultivitamin Daily, 0 Refills, Maintenance, 02/10/19 14:29:04 EDT Start Date: 02/10/19 Status: Orderednortriptyline 50 mg oral capsule 50 mg, 1, capsule, By Mouth, 3 times a day, Refills 0, Maintenance, 02/10/19 14:30:04 EDT Start Date: 02/10/19 Status: OrderedOxyCODONE IR Tablet 15 mg, By Mouth, Every 4 hours, Refills 0, Tot. Refills 0, Maintenance, 11/23/15 20:19:27 Start Date: 11/23/15 Status: OrderedPlaquenil Sulfate 200 mg oral tablet 2 tablet = 400 mg, By Mouth, Daily, # 180 tablet, 0 Refills, Maintenance, Tablet Start Date: 12/04/11 Status: Orderedpravastatin 40 mg oral tablet 1 tablet = 40 mg, By Mouth, Daily, 0 Refills, Maintenance, 02/10/19 14:29:46 EDT Start Date: 02/10/19 Status: OrderedpredniSONE 10 mg oral tablet 1 tablet = 10 mg, By Mouth, Daily, 0 Refills, Maintenance, 02/10/19 14:29:25 EDT Start Date: 02/10/19 Status: OrderedProzac Capsule 40, mg, By Mouth, Daily, 0, 0, 02/03/07 16:13:17, Print ABEBE Number, [id number], Constant Indicator Start Date: 02/03/07 Status: OrderedVitamin D3 By Mouth, 0 Refills, Maintenance, 02/10/19 14:29:12 EDT Start Date: 02/10/19 Status: Orderedwarfarin 2.5 mg oral tablet 1 tablet = 2.5 mg, By Mouth, Daily, 0 Refills, Maintenance, 02/10/19 14:29:34 EDT Start Date: 02/10/19 Status: Ordered Problem List Condition Effective Dates Status Health Status Informant Depression with anxiety(Confirmed) Active Stroke(Confirmed) Active Hx Chlamydia(Confirmed) Active Infertility, female(Confirmed) Active Fibromyalgia(Confirmed) Active Heart disease- ST elevation Active [place](Confirmed) Hematuria(Confirmed) Active High cholesterol(Confirmed) Active Hypothyroid(Confirmed) Active Proteinuria(Confirmed) Active COPD(Confirmed) Active Arthritis, rheumatoid(Confirmed) Active Lupus glomerulonephritis(Confirmed) Active Systemic lupus(Confirmed) Active Uterine fibroid(Confirmed) Active Social History Social History Type Response Smoking Status 5-9 cigarettes (between 1/4 to 1/2 pack)/day in last 30 days entered on: 02/10/19 Sex
--- OUTSIDE RECORDS SUMMARY | 2022-11-08 06:21 | XMS_ITS | Continuity of Care Document ---
:1975 Author Organization [facility] Address [address] [place] [address], [address] [place] [address], [address] [place] [id number]- Care Team Providers Name Role Phone Sam Brown MD, Barbie Primary Care Physician [phone] Encounter [facility] Date(s): 05/11/21 - 06/10/21 [facility] [address] [place] [address], [address] [place] [address], [address] [place] [id number] Attending Physician: Uday Juarez Admitting Physician: Uday Juarez Referring Physician: AdmUday cardenas Allergies, Adverse Reactions, Alerts Substance Reaction Severity [...] 02/10/19 14:30:16 EDT Start Date: 02/10/19 Status: Orderedloratadine 10 mg oral tablet 10 mg, 1, tablet, By Mouth, Daily, Refills 0, Maintenance, 02/10/19 14:30:43 EDT Start Date: 02/10/19 Status: OrderedMultivitamin Daily, 0 Refills, Maintenance, 02/10/19 14:29:04 EDT Start Date: 02/10/19 Status: Orderednortriptyline 50 mg oral capsule 50 mg, 1, capsule, By Mouth, 3 times a day, Refills 0, Maintenance, 02/10/19 14:30:04 EDT Start Date: 02/10/19 Status: Orderednortriptyline 75 mg oral capsule 75 mg, 1, capsule, By Mouth, Daily at bedtime, dose increaase, pls d/c prior script, # 30 capsule, Refills 5, Tot. Refills 5, Maintenance, 02/06/21 15:43:00 EDT, Route to Pharmacy Electronically, [facility] #[id number], dose increaase, pls d/c pr... Start Date: 02/06/21 Stop Date: 08/05/21 Status: OrderedOxyCODONE IR Tablet 15 mg, By [...] 0, 0, 02/03/07 16:13:17, Print ABEBE Number, [id number], Constant Indicator Start Date: 02/03/07 Status: Ordered Problem List Condition Effective Dates Status Health Status Informant Depression with anxiety(Confirmed) Active Stroke(Confirmed) Active Hx Chlamydia(Confirmed) Active Infertility, female(Confirmed) Active Fibromyalgia(Confirmed) Active Heart disease- ST elevation Active [place](Confirmed) Hematuria(Confirmed) Active High cholesterol(Confirmed) Active Hypothyroid(Confirmed) Active Proteinuria(Confirmed) Active COPD(Confirmed) Active Arthritis, rheumatoid(Confirmed) Active Lupus glomerulonephritis(Confirmed) Active Systemic lupus(Confirmed) Active Uterine fibroid(Confirmed) Active Social History Social History Type Response Smoking Status 5-9 cigarettes (between 1/4 to 1/2 pack)/day in last 30 days entered on: 02/10/19 Sex
--- OUTSIDE RECORDS SUMMARY | 2022-11-08 06:21 | XMS_ITS | Continuity of Care Document ---
:1975 Author Organization [facility] Address [address] [place] [address]- Care Team Providers Name Role Phone Sam Brown MD, Barbie Primary Care Physician Encounter [facility] Date(s): 04/30/22 - 08/26/[address] [id number] Attending Physician: Alyson Mcmanus MD Admitting Physician: Alyson Mcmanus MD Allergies, Adverse Reactions, Alerts Substance Reaction [...] 14:29:04 EDT Start Date: 02/10/19 Status: Orderednortriptyline 75 mg oral capsule 1, capsule, By Mouth, Daily at bedtime, DOSE INCREASE, # 30 capsule, Refills 0, Route to Pharmacy Electronically, [id number] Start Date: 09/01/21 Status: OrderedOxyCODONE IR Tablet 15 mg, By [...] 0, 0, 02/03/07 16:13:17, Print ABEBE Number, [id number], Constant Indicator Start Date: 02/03/07 Status: Ordered Problem List Condition Confirmation Course Effective Status Health Informa nt Dates Status Depression with anxiety Confirmed Active Stroke Confirmed Active Hx Chlamydia Confirmed Active Infertility, female Confirmed Active Fibromyalgia Confirmed Active Heart disease- ST Confirmed Active elevation [place] Hematuria Confirmed Active High cholesterol Confirmed Active Hypothyroid Confirmed Active Proteinuria Confirmed Active COPD Confirmed Active Arthritis, rheumatoid Confirmed Active Lupus Confirmed Active glomerulonephritis Systemic lupus Confirmed Active Uterine fibroid Confirmed Active Social History Social History Type Response Smoking Status 5-9 cigarettes (between 1/4 to 1/2 pack)/day in last 30 days entered on: 02/10/19 Sex Patient Care team information PersonnelName: Sam Brown MD , Barbie Address: Address: [address] [place] [address]
--- OUTSIDE RECORDS SUMMARY | 2022-11-08 06:21 | XMS_ITS | Continuity of Care Document ---
:1975 Author Organization [facility] Address [address] [place] [address]- Care Team Providers Name Role Phone Sam Brown MD, Barbie Primary Care Physician Encounter [facility] [id number] Date(s): 06/24/20 - 07/24/20 [facility] [address] [place] [address]- [facility] Attending Physician: Uday Juarez Admitting Physician: Uday Juarez Referring Physician: trUday Allergies, Adverse Reactions, Alerts Substance Reaction Severity [...] 0, 0, 02/03/07 16:13:17, Print ABEBE Number, [id number], Constant Indicator Start Date: 02/03/07 Status: OrderedVitamin [...] Fibromyalgia(Confirmed) Active Heart disease- ST elevation Active [place](Confirmed) Hematuria(Confirmed) Active High cholesterol(Confirmed) Active Hypothyroid(Confirmed) Active Proteinuria(Confirmed) Active COPD(Confirmed) Active Arthritis, rheumatoid(Confirmed) Active Lupus glomerulonephritis(Confirmed) Active Systemic lupus(Confirmed) Active Uterine fibroid(Confirmed) Active Social History Social History Type Response Smoking Status 5-9 cigarettes (between 1/4 to 1/2 pack)/day in last 30 days entered on: 02/10/19 Sex
--- OUTSIDE RECORDS SUMMARY | 2022-11-08 06:21 | XMS_ITS | Continuity of Care Document ---
:1975 Author Organization [facility] Address [address] [place] [address], [address] [place] [address], [address] [place] [id number]- Care Team Providers Name Role Phone Sam Brown MD, Barbie Primary Care Physician [phone] Encounter [facility] Date(s): 02/10/21 - 06/10/21 [facility] [address] [place] [address], [address] [place] [address], [address] [place] [id number] Attending Physician: La Harper MD Admitting Physician: La Harper MD Allergies, Adverse Reactions, Alerts Substance Reaction [...] 02/06/21 15:43:00 EDT, Route to Pharmacy Electronically, [facility] #[id number], dose increaase, pls d/c pr... Start Date: [...] 0, 0, 02/03/07 16:13:17, Print ABEBE Number, [id number], Constant Indicator Start Date: 02/03/07 Status: Ordered Problem List Condition Effective Dates Status Health Status Informant Depression with anxiety(Confirmed) Active Stroke(Confirmed) Active Hx Chlamydia(Confirmed) Active Infertility, female(Confirmed) Active Fibromyalgia(Confirmed) Active Heart disease- ST elevation Active [place](Confirmed) Hematuria(Confirmed) Active High cholesterol(Confirmed) Active Hypothyroid(Confirmed) Active Proteinuria(Confirmed) Active COPD(Confirmed) Active Arthritis, rheumatoid(Confirmed) Active Lupus glomerulonephritis(Confirmed) Active Systemic lupus(Confirmed) Active Uterine fibroid(Confirmed) Active Social History Social History Type Response Smoking Status 5-9 cigarettes (between 1/4 to 1/2 pack)/day in last 30 days entered on: 02/10/19 Sex
--- OUTSIDE RECORDS SUMMARY | 2022-11-08 06:21 | XMS_ITS | Continuity of Care Document ---
:1975 Author Organization [facility] Address [address] [place] [address], [address] [place] [address], [address] [place] [id number]- Care Team Providers Name Role Phone Sam Brown MD, Barbie Primary Care Physician [phone] Encounter [facility] Date(s): 12/14/20 - 01/13/21 [facility] [address] [place] [address], [address]rd [facility], [address] [place] [id number] Allergies, Adverse Reactions, Alerts Substance Reaction Severity [...] 0, 0, 02/03/07 16:13:17, Print ABEBE Number, [id number], Constant Indicator Start Date: 02/03/07 Status: OrderedVitamin [...]
--- OUTSIDE RECORDS SUMMARY | 2022-11-08 06:21 | XMS_ITS | Continuity of Care Document ---
:1975 Author Organization [facility] Address [address] [place] [address]- Care Team Providers Name Role Phone Sam Brown MD, Barbie Primary Care Physician [phone] Encounter [facility] Date(s): 05/19/20 - 07/24/20 [facility] [address] [place] [address]- [facility] Attending Physician: Mylene Burns MD Allergies, Adverse Reactions, Alerts Substance Reaction [...] 0, 0, 02/03/07 16:13:17, Print ABEBE Number, [id number], Constant Indicator Start Date: 02/03/07 Status: OrderedVitamin [...] Fibromyalgia(Confirmed) Active Heart disease- ST elevation Active [place](Confirmed) Hematuria(Confirmed) Active High cholesterol(Confirmed) Active Hypothyroid(Confirmed) Active Proteinuria(Confirmed) Active COPD(Confirmed) Active Arthritis, rheumatoid(Confirmed) Active Lupus glomerulonephritis(Confirmed) Active Systemic lupus(Confirmed) Active Uterine fibroid(Confirmed) Active Social History Social History Type Response Smoking Status 5-9 cigarettes (between 1/4 to 1/2 pack)/day in last 30 days entered on: 02/10/19 Sex
--- OUTSIDE RECORDS SUMMARY | 2022-11-08 06:21 | XMS_ITS | Continuity of Care Document ---
:1975 Author Organization [facility] Address [address] [place] [address], [address] [place] [address], [address] [place] [address]- Care Team Providers Name Role Phone Sam Brown MD, Barbie Primary Care Physician Encounter [facility] Date(s): 12/14/20 - 03/08/21 [facility] [address] [place] [address], [address] [place] [address], [address] [place] [id number] Attending Physician: Viviana Valdez NP Admitting Physician: Viviana Valdez NP Referring Physician: Barbie Dunn MD Allergies, Adverse [...] 02/06/21 15:43:00 EDT, Route to Pharmacy Electronically, [facility] #[id number], dose increaase, pls d/c pr... Start Date: [...] 0, 0, 02/03/07 16:13:17, Print ABEBE Number, [id number], Constant Indicator Start Date: 02/03/07 Status: Ordered Problem List Condition Effective Dates Status Health Status Informant Depression with anxiety(Confirmed) Active Stroke(Confirmed) Active Hx Chlamydia(Confirmed) Active Infertility, female(Confirmed) Active Fibromyalgia(Confirmed) Active Heart disease- ST elevation Active [place](Confirmed) Hematuria(Confirmed) Active High cholesterol(Confirmed) Active Hypothyroid(Confirmed) Active Proteinuria(Confirmed) Active COPD(Confirmed) Active Arthritis, rheumatoid(Confirmed) Active Lupus glomerulonephritis(Confirmed) Active Systemic lupus(Confirmed) Active Uterine fibroid(Confirmed) Active Social History Social History Type Response Smoking Status 5-9 cigarettes (between 1/4 to 1/2 pack)/day in last 30 days entered on: 02/10/19 Sex
[2022-11-08] MEDS: Lactated Ringers 1,000 ML 100 ML IVCONT ×2 (06:45→17:11)
[2022-11-08 06:48] LABS: ABG Base Excess 3.1 mmol/L; ABG HCO3 27 mmol/L (22-26); ABG pCO2 42 mmHg (32-45); ABG pH 7.41 (7.35-7.45); ABG pO2 61 mmHg (83-108)
[2022-11-08 07:02] LABS: C Reactive Protein 6.99 mg/dL (< or = 0.50)
--- NOTE | 2022-11-08 07:08 | PC.NURSE ---
po klor-con not given on this shift. pt difficult to arrouse this rn did not feel pt safe to take po fluids. report given to oncoming nurse.
--- NOTE | 2022-11-08 07:35 | PHA.PROG ---
Admission Date/Time: November 08, 2022 06:09 Indication: Right elbow cellulitis Weight in k.864 kg Adjusted body weight in K kg [place] body weight in K.1 Obesity Dosing Indication % IBW: 129% Serum Creatinine - Last 168 Hours 11/08/22 03:36 Creatinine 0.93 Estimated CrCl and GFR - Last 168 Hours 11/08/22 03:36 Estim Creat Clear Calc 67.5 Estimated GFR > 60 Vancomycin Loading Dose: 1000 mg + 500 mg Current Vancomycin Dosing Regimen: 750 mg Q12H Date and Time for next Vancomycin Level to be drawn: 11/09 @ 1800 Pharmacist Comments on Vancomycin Plan: Patient received a one time dose for 1000 mg in the ER 11/08 @ 0426. Since this is not a adequate loading dose patient to receive an extra 500 mg dose to create a vanco 1500 mg loading dose. maintenance dose vanco 750 mg Q12H is scheduled to be given 11/08 @ 2000. Expected AUC 465 with a trough of 14.8. Level to be drawn prior to 4th dose Pharmacy will monitor renal function daily. Ibis Min PharmD Vancomycin dosing will take advantage of [employer] as a clinical decision support tool that uses Bayesian modeling to calculate individual patient's pharmacokinetic parameters and forecast the patient's drug concentration time course with the target goal AUC 24 range of 400 - 600 mg/L/hr.
[2022-11-08 07:37] LABS: Erythrocyte Sedimentation Rate 23 MM/HR (0-20)
[2022-11-08] MEDS: vancomycin HCL 500 MG in 0.9 % Sodium Chloride 100 ML 110 MG IV (07:42)
--- NOTE | 2022-11-08 08:05 | PM.CNOR ---
History of Present Illness HPI Consult date: 11/08/22 Chief complaint: Infected Wound Narrative: Ms. Rea is a 47 year old with history of COPD, Charcot foot, DM, rheumatoid arthritis, peripheral artery disease on chronic prednisone and CVA on Eliquis who presented to the ED yesterday evening for a nonhealing wound in the right elbow with infected bursitis. In the ED consult note it is reported that the visiting nurse been doing the dressing at home patientAshley Styles continuously falls asleep during interview. Unclear what the cause of the wound on her elbow was or how long it has been present. Review of Systems Review of Systems: Yes all other systems are reviewed and are negative PMFSH Past Medical History Medical History C. difficile colitis Cellulitis Cellulitis Cellulitis of right leg COPD (chronic obstructive pulmonary disease) CVA (cerebral vascular accident) Fibromyalgia Hypothyroid Immunosuppression due to chronic steroid use Lupus Mixed connective tissue disease PAD (peripheral artery disease) Pneumonia due to COVID-19 virus Proteinuria Redness and swelling of lower leg Respiratory failure with hypoxia Rheumatoid arthritis Secondary bacterial pneumonia Varicose veins of right lower extremity with inflammation Family History Family History Father No problems noted. Mother Lung cancer Surgical History Surgical History History of breast lump/mass excision History of bunionectomy History of cholecystectomy History of excision of mass History of partial hysterectomy Social History Social History Household Members: Children Housing: House Do you presently have visiting nurse or other home services: No Alcohol intake: never Patient Tobacco Use Status: Former Tobacco user Quit Date: 03/2022 Tobacco use type: Cigarette Cigarette Packs Per Day: 1 Cigarettes Per Day: 20.0 Years Smoked: 29 Smoked in Last 30 Days: Yes Second Hand Smoke Exposure: No Use of substances other than those prescribed or required for medical reasons: No Advance Directives: Yes Advance Directives on File: Yes Advance Directives Date on File: 11/26/21 Patient : No service: No Current occupational status: unemployed and disabled Meds Allergies Allergy/AdvReac Type Severity Reaction Status Date / Time clarithromycin Allergy Intermediate FACIAL Verified 11/08/22 01:19 [CLARITHROMYCIN] SWELLING/REDNESS, facial rash, facial rash, facial rash, facial rash Active Medications: Current Medications Acetaminophen (Acetaminophen 325 Mg Tablet) 650 mg PO Q6H PRN PRN Reason: Pain, Mild (Pain Scale 1-3) Cefepime HCl 2 gm/ Sodium (Chloride) 50 mls @ 100 mls/hr IV Q12H [facility] Lactated Ringer's (Lr) 1,000 mls @ 100 mls/hr IVCONT .Q10H [facility] Last Admin: 11/08/22 06:45 Dose: 100 mls/hr Vancomycin HCl 750 mg/ Sodium (Chloride) 265 mls @ 265 mls/hr IV Q12H [facility] Ondansetron HCl (Ondansetron Hcl 4 Mg/2 Ml Vial) 4 mg IVPUSH Q8H PRN PRN Reason: Nausea and Vomiting Pharmacy Consult (Consult Rx Vancomycin Dosing) 1 each MISCELLANE DAILY PRN PRN Reason: Consult order Potassium Chloride (Potassium Chloride Packet 20 Meq Packet) 40 meq PO Q2H [facility] Stop: 11/08/22 08:16 Last Admin: 11/08/22 07:29 Dose: Not Given Sodium Chloride (0.9 % Sodium Chloride Flush 3 Ml Syringe) 3 ml IVFLUSH QSHIFT [facility] Home Medications Medication Instructions Recorded Confirmed Last Taken Type lorazepam 1 mg tablet 1 mg PO BID PRN Anxiety 08/15/20 11/08/22 08/30/20 History pravastatin 40 mg tablet 40 mg PO BEDTIME 08/15/20 11/08/22 08/30/20 History fluoxetine 40 mg capsule (Prozac) 40 mg PO DAILY 08/20/20 11/08/22 08/30/20 History albuterol sulfate 2.5 mg/3 mL 2.5 mg inhalation Q6H PRN 08/31/20 11/08/22 08/30/20 History (0.083 %) solution for nebulization Shortness Of Breath Or Wheezing albuterol sulfate 90 mcg/actuation 2 puff inhalation Q4H PRN 08/31/20 11/08/22 08/30/20 History aerosol inhaler Shortness Of Breath Or Wheezing bupropion HCl 100 mg tablet,12 hr 100 mg PO BID 08/31/20 11/08/22 08/30/20 History sustained-release prednisone 5 mg tablet 5 mg PO DAILY 08/31/20 11/08/22 08/30/20 History nortriptyline 75 mg capsule 75 mg PO BEDTIME 04/18/21 11/08/22 Unknown History apixaban 5 mg tablet 5 mg PO BID 10/21/21 11/08/22 Unknown History fluticasone propionate 220 1 puff inhalation BID 10/21/21 11/08/22 Unknown History mcg/actuation HFA aerosol inhaler (Flovent HFA) levothyroxine 175 mcg tablet 175 mcg PO DAILY 10/21/21 11/08/22 Unknown History loratadine 10 mg tablet 10 mg PO DAILY 10/21/21 11/08/22 Unknown History multivitamin 1 tab PO DAILY 10/21/21 11/08/22 Unknown History nebulizer and compressor (Vios #1 ea 02/15/22 05/24/22 Unknown History Aerosol Delivery System) famotidine 20 mg tablet 1 tab PO DAILY 05/24/22 11/08/22 Unknown History meclffwdzn-uarzzujjjhzcw-xeewrfyx 2 tab PO DAILY PRN headache 11/08/22 11/08/22 Unknown History 50 mg-325 mg-40 mg tablet ferrous sulfate 325 mg (65 mg 1 tab PO DAILY 11/08/22 11/08/22 Unknown History iron) tablet (FeroSul) sulfasalazine 500 mg tablet 1 tab PO BID 11/08/22 11/08/22 Unknown History tiotropium bromide 2.5 2 puff inhalation DAILY 11/08/22 11/08/22 Unknown History mcg/actuation mist for inhalation (Spiriva Respimat) tramadol 50 mg tablet 50 mg PO Q6H PRN pain 11/08/22 11/08/22 Unknown History Physical Exam Vital Signs: Vital Signs: Last Vital Signs Temp 98.0 F 11/08/22 05:58 Pulse 90 11/08/22 05:58 Resp 18 11/08/22 05:58 BP 112/61 11/08/22 05:58 Pulse Ox 95 11/08/22 05:58 O2 Del Method 11/08/22 05:58 BMI result Body Mass Index 26.2 Const: General: cooperative, healthy appearing and no acute distress Resp: Effort & Inspection: normal respiratory effort and able to speak in complete sentences Cardio: Rate: regular rate Peripheral pulses: Peripheral pulses 2+ throughout GI: Palpation (GI): Soft to palpation Skin: Lesions: no lesions Rashes: no rashes Extrem: Other: Left elbow half dollar erythema and drainage over the olecranon bursa. Able to flex extend without pain, patient consistently falls asleep during exam. Sensation is reportedly intact. Radial pulse intact. Results Labs Result Diagrams: 11/08/22 03:36 11/08/22 03:36 Labs: Abnormal lab results 11/08/22 11/08/22 11/08/22 Range/Units 03:36 03:36 03:36 WBC 14.5 H (4.8-10.8) X10*3/uL Hgb 11.1 L D (12.0-16.0) g/dl Hct 36.6 L D (37.0-47.0) % MCV 75.9 L (80.0-98.0) fL MCH 23.0 L (27.0-33.0) pg MCHC 30.3 L (31.0-35.0) g/dl MPV 8.3 L (9.4-12.3) fL Immature Gran % (Auto) 0.9 H (0.0-0.4) % Neut % (Auto) 76.6 H (45-73) % Lymph % (Auto) 12.3 L (20-40) % Abs Immat Gran (auto) 0.13 H (0.00-0.03) X10*3/uL Absolute Neuts (auto) 11.1 H (2.0-8.3) x10*3/uL ESR 23 H (0-20) MM/HR ABG pO2 at Pt Temp (83-108) mmHg ABG HCO3 (22-26) mmol/L Potassium 3.2 L D (3.3-5.1) mmol/L Carbon Dioxide 32 H (22-29) mmol/L Anion Gap 11 L (12-20) BUN 7 L (9-16) mg/dL Alkaline Phosphatase 213 H (39-117) U/L C-Reactive Protein 6.99 H (< or = 0.50) mg/dL Total Protein 5.1 L (6.5-8.0) g/dL Albumin 2.8 L (3.5-5.0) g/dL 11/08/22 Range/Units 06:42 WBC (4.8-10.8) X10*3/uL Hgb (12.0-16.0) g/dl Hct (37.0-47.0) % MCV (80.0-98.0) fL MCH (27.0-33.0) pg MCHC (31.0-35.0) g/dl MPV (9.4-12.3) fL Immature Gran % (Auto) (0.0-0.4) % Neut % (Auto) (45-73) % Lymph % (Auto) (20-40) % Abs Immat Gran (auto) (0.00-0.03) X10*3/uL Absolute Neuts (auto) (2.0-8.3) x10*3/uL ESR (0-20) MM/HR ABG pO2 at Pt Temp 61 L (83-108) mmHg ABG HCO3 27 H (22-26) mmol/L Potassium (3.3-5.1) mmol/L Carbon Dioxide (22-29) mmol/L Anion Gap (12-20) BUN (9-16) mg/dL Alkaline Phosphatase (39-117) U/L C-Reactive Protein (< or = 0.50) mg/dL Total Protein (6.5-8.0) g/dL Albumin (3.5-5.0) g/dL H & H 11/08/22 Range/Units 03:36 Hgb 11.1 L D (12.0-16.0) g/dl Hct 36.6 L D (37.0-47.0) % All other labs normal. Assessment and Plan (1) Open wound of right elbow: Status: Acute -No orthopedic intervention warented at this time -Wound care -IV abx per medicine recommendation -Pain management as needed -Dressing changes as needed (2) Cellulitis: Status: Acute Time Spent With Patient Time: Total time managing care of this patient today ____ minutes. Procedures Date of Service Date of Service: 11/08/22
[2022-11-08] MEDS: cefEPime HCl 2 GM in 0.9 % Sodium Chloride 50 ML IV (10:06)
[2022-11-08] MEDS: Potassium Chloride Packet 20 MEQ PACKET 40 MEQ PO (10:07)
[2022-11-08 11:06] LABS: ABG Refer to POC result
--- NOTE | 2022-11-08 13:29 | PC.NURSE ---
MD came to see pt and viewed pts wound. MD stated to re-dress would with zeroform and gauze.
--- NOTE | 2022-11-08 13:30 | PC.NURSE ---
Report to Elayne JAMES
--- NOTE | 2022-11-08 14:45 | PM.EVENT ---
Event Note Date of Service: 11/08/22 Event Note: day hospitalist update S somnolent but arousable; c/o pain of R elbow O Temp Pulse Resp BP Pulse Ox O2 Del Method 97.2 F 95 14 116/58 L 92 11/08/22 11:31 11/08/22 11:31 11/08/22 11:31 11/08/22 11:31 11/08/22 11:31 11/08/22 11:31 Gen: in no acute distress HEENT: sclera anicteric, moist mucus membranes Neck: supple Lungs: clear to auscultation bilaterally Heart: regular rate and rhythm, no murmurs Abd: soft, non-tender, non-distended Ext: no edema Skin: erythema over R olecranon with clear drainage; full ROM Neuro: alert and oriented x3, no focal findings Psych: appropriate affect A/P d#1 47yo F with COPD, PAD, SLE/RA/MCTD on chronic prednisone + hydroxychloroquine presenting after falling, found to have elbow wound with cellulitis # cellulitis - vanco + pip/mtat given immunosuppression, orthopedics consulted- no surgical drainage indicated # hypoK - replete, recheck BMP in AM # SLE/RA/MCTD - continue prednisone + hydroxychloroquine + sulfasalazine # COPD - continue prn albuterol + controller tiotropium # mood disorder - continue bupropion + fluoxetine + nortriptyline + lorazepam # hypothyroidism - continue LT4 # PAD - continue apixban, statin # VTE ppx: apixaban In my clinical judgment, the patient requires continued inpatient hospitalization for the following reasons: IV ABX
[2022-11-08] MEDS: Piperacillin Sodium/Tazobactam 3.375 GM in 0.9 % Sodium Chloride 50 ML IV ×2 (16:47→20:44)
[2022-11-08] MEDS: 0.9 % Sodium Chloride Flush 3 ML SYRINGE IVFLUSH (16:48)
[2022-11-08] MEDS: Acetaminophen 325 MG TABLET 650 MG PO (16:48)
[2022-11-08] MEDS: vancomycin HCL 750 MG in 0.9 % Sodium Chloride 250 ML 265 MG IV (20:44)
[2022-11-08] MEDS: Pravastatin Sodium 40 MG TABLET PO (20:47)
[2022-11-08] MEDS: buPROPion HCl XL 150 MG TAB.ER.24H PO (20:47)
[2022-11-08] MEDS: Nortriptyline HCl 25 MG CAPSULE 75 MG PO (20:47)
[2022-11-08] MEDS: Hydroxychloroquine Sulfate 200 MG TABLET PO (20:47)
[2022-11-08] MEDS: sulfaSALAzine 500 MG TABLET PO (20:48)
[2022-11-08] MEDS: Apixaban 5 MG TABLET PO (20:48)
[2022-11-08] MEDS: Albuterol Sulfate (0.083%) 2.5 MG/3 ML VIAL.NEB INHALE (21:16)
[2022-11-09] VITALS (7 sets, daily range): BP systolic 103–110; BP diastolic 52–58; PULSE 80–98; RESP 15–18; TEMP 36.5–37.1; O2SAT 92–99
[2022-11-09] MEDS: 0.9 % Sodium Chloride Flush 3 ML SYRINGE IVFLUSH ×3 (00:21→15:31)
[2022-11-09] MEDS: Piperacillin Sodium/Tazobactam 3.375 GM in 0.9 % Sodium Chloride 50 ML IV ×4 (02:32→22:22)
[2022-11-09] MEDS: Lactated Ringers 1,000 ML 100 ML IVCONT ×2 (02:38→14:03)
[2022-11-09] MEDS: Levothyroxine Sodium 175 MCG TABLET PO (06:03)
[2022-11-09 06:13] LABS: MANUAL DIFF FLAG NO
[2022-11-09 06:24] LABS: Basophils Absolute Auto 0.1 X10*3/uL (0.0-0.2); Basophils Percent Auto 0.4 % (0-2); Eosinophils Absolute Auto 0.4 X10*3/uL (0.0-0.4); Eosinophils Percent Auto 3.2 % (0-4); Hematocrit 31.4 % (37.0-47.0); Hemoglobin 9.7 g/dl (12.0-16.0); Imm Gran Abs Auto 0.15 X10*3/uL (0.00-0.03); Imm Gran Pct Auto 1.1 % (0.0-0.4); Lymphocytes Absolute Auto 0.9 X10*3/uL (1.2-4.9); Lymphocytes Percent Auto 6.6 % (20-40); Mean Corpuscular HGB Conc 30.9 g/dl (31.0-35.0); Mean Corpuscular Hemoglobin 23.7 pg (27.0-33.0); Mean Corpuscular Volume 76.8 fL (80.0-98.0); Mean Platelet Volume 8.9 fL (9.4-12.3); Monocytes Absolute Auto 0.8 X10*3/uL (0.1-1.2); Neutrophils Absolute Auto 11.2 x10*3/uL (2.0-8.3); Neutrophils Percent Auto 82.7 % (45-73); Platelet Count 264 X10*3/uL (160-400); Red Blood Count 4.09 X10*6/uL (4.20-5.50); Red Cell Distribution Width 13.6 % (11.0-16.0); White Blood Count 13.5 X10*3/uL (4.8-10.8)
[2022-11-09 06:53] LABS: Creatinine Clr Calc Pharmacy 94.4; Estimated Glomerular Filt Rate > 60
[2022-11-09 07:48] LABS: Magnesium 1.7 mg/dL (1.6-2.6); Potassium 3.9 mmol/L (3.3-5.1)
[2022-11-09] MEDS: predniSONE 5 MG TABLET PO (09:36)
[2022-11-09] MEDS: Apixaban 5 MG TABLET PO ×2 (09:36→21:08)
[2022-11-09] MEDS: Ferrous Sulfate 324 MG TABLET.DR PO (09:36)
[2022-11-09] MEDS: Hydroxychloroquine Sulfate 200 MG TABLET PO ×2 (09:36→21:08)
[2022-11-09] MEDS: Multivitamin TABLET 1 TAB PO (09:36)
[2022-11-09] MEDS: Loratadine 10 MG TABLET PO (09:36)
[2022-11-09] MEDS: FLUoxetine HCl 20 MG CAPSULE 40 MG PO (09:36)
[2022-11-09] MEDS: Folic Acid 1 MG TABLET PO (09:36)
[2022-11-09] MEDS: vancomycin HCL 750 MG in 0.9 % Sodium Chloride 250 ML 265 MG IV (09:36)
[2022-11-09] MEDS: Famotidine 20 MG TABLET PO (09:36)
[2022-11-09] MEDS: buPROPion HCl XL 150 MG TAB.ER.24H PO (09:36)
[2022-11-09] MEDS: sulfaSALAzine 500 MG TABLET PO ×2 (09:36→21:09)
--- NOTE | 2022-11-09 10:25 | MHC.CM.PN ---
PT REPORTS SHE LIVES WITH HER CHILDREN AND HAS DAILY NETWORK ADMIN SERVICES PT HAS A NEBULIZER, WALKER AND OXYGEN AT HOME BUT REPORTS SHE HAS NOT BEEN NEEDING THE O2 PT IS COVID VAX AND BOOSTED SHE HAS A HCP ON FILE PCP: ALEJANDRO BISHOP IMM DELIVERED PER PHYSICAL THERAPY, PT WILL BENEFIT FROM STR [facility]BV IS PTS PREFERRED FACILITY REFERRAL MADE TRANSPORT TBD BY DISPO
[2022-11-09] MEDS: Albuterol Sulfate (0.083%) 2.5 MG/3 ML VIAL.NEB INHALE (10:26)
--- NOTE | 2022-11-09 10:36 | HO.PM.IMPN ---
Subjective Subjective Date of Service: 11/09/22 Interval History: elbow redness improved no fever swollen/painful hands and feet Review of Systems Review of Systems: Yes all other systems are reviewed and are negative Physical Exam Vital Signs: Vital Signs: Last Vital Signs Temp 97.7 F 11/09/22 07:28 Pulse 80 11/09/22 10:27 Resp 16 11/09/22 10:27 BP 107/58 L 11/09/22 09:07 Pulse Ox 99 11/09/22 09:07 O2 Del Method 11/09/22 07:28 BMI result Body Mass Index 26.5 Gen: in no acute distress HEENT: sclera anicteric, moist mucus membranes Neck: supple Lungs: clear to auscultation bilaterally Heart: regular rate and rhythm, no murmurs Abd: soft, non-tender, non-distended Ext: tenderness/swelling MCP and MTP joints bilaterally Skin: erythema over R olecranon with clear drainage; full ROM Neuro: alert and oriented x3, no focal findings Psych: appropriate affect Objective Data Active Medications Acetaminophen (Acetaminophen 325 Mg Tablet) 650 mg PO Q6H PRN PRN Reason: Pain, Mild (Pain Scale 1-3) Last Admin: 11/08/22 16:48 Dose: 650 mg Documented By: TOMMY Acetaminophen/Butalbital/Caffeine (Butalb/Acetamin/Caff 50/325/40 Tablet) 2 tab PO DAILY PRN PRN Reason: headache Albuterol Sulfate (Albuterol Sulfate (0.083%) 2.5 Mg/3 Ml Vial.Neb) 2.5 mg INHALE Q6H PRN PRN Reason: Shortness Of Breath Or Wheezing Last Admin: 11/09/22 10:26 Dose: 2.5 mg Documented By: KULWINDER Albuterol Sulfate (Albuterol Sulfate 90 Mcg 8 Gm Inhaler) 2 puff INHALE Q4H PRN PRN Reason: Shortness Of Breath Or Wheezing Apixaban (Apixaban 5 Mg Tablet) 5 mg PO BID [facility] Last Admin: 11/09/22 09:36 Dose: 5 mg Documented By: SHELBY Bupropion HCl (Bupropion Hcl Xl 150 Mg Tab.Er.24h) 150 mg PO DAILY [facility] Last Admin: 11/09/22 09:36 Dose: 150 mg Documented By: SHELBY Famotidine (Famotidine 20 Mg Tablet) 20 mg PO DAILY [facility] Last Admin: 11/09/22 09:36 Dose: 20 mg Documented By: SHELBY Ferrous Sulfate (Ferrous Sulfate 324 Mg Tablet.Dr) 324 mg PO DAILY [facility] Last Admin: 11/09/22 09:36 Dose: 324 mg Documented By: SHELBY Fluoxetine HCl (Fluoxetine Hcl 20 Mg Capsule) 40 mg PO DAILY [facility] Last Admin: 11/09/22 09:36 Dose: 40 mg Documented By: SHELBY Fluticasone Propionate (Fluticasone Propionate 250 Mcg Blst.W.Dev) 1 puff INHALE RBID [facility] Last Admin: 11/09/22 08:14 Dose: Not Given Documented By: KULWINDER Non-Admin Reason: Med Not Available Folic Acid (Folic Acid 1 Mg Tablet) 1 mg PO DAILY [facility] Last Admin: 11/09/22 09:36 Dose: 1 mg Documented By: SHELBY Hydroxychloroquine Sulfate (Hydroxychloroquine Sulfate 200 Mg Tablet) 200 mg PO BID [facility] Last Admin: 11/09/22 09:36 Dose: 200 mg Documented By: SHELBY Lactated Ringer's (Lr) 1,000 mls @ 100 mls/hr IVCONT .Q10H [facility] Last Admin: 11/09/22 02:38 Dose: 100 mls/hr Documented By: ASHWINI Vancomycin HCl 750 mg/ Sodium (Chloride) 265 mls @ 265 mls/hr IV Q12H [facility] Last Admin: 11/09/22 09:36 Dose: 265 mls/hr Documented By: SHELBY Piperacillin Sod/Tazobactam (Sod 3.375 gm/ Sodium Chloride) 50 mls @ 100 mls/hr IV Q6H [facility] Last Infusion: 11/09/22 03:04 Dose: 0 mls/hr Documented By: ASHWINI Levothyroxine Sodium (Levothyroxine Sodium 175 Mcg Tablet) 175 mcg PO DAILY@0600 [facility] Last Admin: 11/09/22 06:03 Dose: 175 mcg Documented By: ASHWINI Loratadine (Loratadine 10 Mg Tablet) 10 mg PO DAILY [facility] Last Admin: 11/09/22 09:36 Dose: 10 mg Documented By: SHELBY Lorazepam (Lorazepam 1 Mg Tablet) 1 mg PO BID PRN PRN Reason: Anxiety Multivitamins/Vitamin C (Multivitamin Tablet) 1 tab PO DAILY [facility] Last Admin: 11/09/22 09:36 Dose: 1 tab Documented By: SHELBY Nortriptyline HCl (Nortriptyline Hcl 25 Mg Capsule) 75 mg PO BEDTIME [facility] Last Admin: 11/08/22 20:47 Dose: 75 mg Documented By: GALI Ondansetron HCl (Ondansetron Hcl 4 Mg/2 Ml Vial) 4 mg IVPUSH Q8H PRN PRN Reason: Nausea and Vomiting Pharmacy Consult (Consult Rx Vancomycin Dosing) 1 each MISCELLANE DAILY PRN PRN Reason: Consult order Pravastatin Sodium (Pravastatin Sodium 40 Mg Tablet) 40 mg PO BEDTIME [facility] Last Admin: 11/08/22 20:47 Dose: 40 mg Documented By: GALI Prednisone (Prednisone 5 Mg Tablet) 5 mg PO DAILY [facility] Last Admin: 11/09/22 09:36 Dose: 5 mg Documented By: SHELBY Sodium Chloride (0.9 % Sodium Chloride Flush 3 Ml Syringe) 3 ml IVFLUSH QSHIFT [facility] Last Admin: 11/09/22 09:37 Dose: 3 ml Documented By: SHELBY Sulfasalazine (Sulfasalazine 500 Mg Tablet) 500 mg PO BID [facility] Last Admin: 11/09/22 09:36 Dose: 500 mg Documented By: SHELBY Tiotropium [place] (Tiotropium [place] 18 Mcg Cap.W.Dev) 1 puff INHALE RDAILY [facility] Last Admin: 11/09/22 08:14 Dose: Not Given Documented By: KULWINDER Non-Admin Reason: Med Not Available Tramadol HCl (Tramadol Hcl 50 Mg Tablet) 50 mg PO Q6H PRN PRN Reason: severe pain Labs CBC & Chem 7: 11/09/22 05:55 11/09/22 05:55 Labs: Laboratory Results - last 24 hr 11/09/22 11/09/22 05:55 05:55 MCV 76.8 L MCH 23.7 L MCHC 30.9 L RDW 13.6 Plt Count 264 MPV 8.9 L Immature Gran % (Auto) 1.1 H Neut % (Auto) 82.7 H Lymph % (Auto) 6.6 L [place] % (Auto) 6.0 Eos % (Auto) 3.2 Baso % (Auto) 0.4 Lymph # (Auto) 0.9 L [place] # (Auto) 0.8 Eos # (Auto) 0.4 Baso # (Auto) 0.1 Abs Immat Gran (auto) 0.15 H Absolute Neuts (auto) 11.2 H Absolute Nucleated RBC 0.000 Nucleated RBC % (auto) 0.0 Estim Creat Clear Calc 94.4 Estimated GFR > 60 Magnesium 1.7 Microbiology Microbiology Results: Microbiology 11/08/22 03:36 Blood Culture - Preliminary Blood - Venous No growth after 24 hours. 11/08/22 03:36 Blood Culture - Preliminary Blood - Venous No growth after 24 hours. Assessment and Plan (1) Falling: Status: Acute (2) Open wound of right elbow: Status: Acute (3) Cellulitis: Status: Acute Plan d#2 47yo F with COPD, PAD, SLE/RA/MCTD on chronic prednisone + hydroxychloroquine presenting after falling, found to have elbow wound with cellulitis # cellulitis - vanco + pip/matt d#2 given immunosuppression, orthopedics consulted- no surgical drainage indicated # hypoK - repleted # SLE/RA/MCTD - continue prednisone + hydroxychloroquine + sulfasalazine. increase prednisone from 5 to 20 mg/d for RA flare # COPD - continue prn albuterol + controller tiotropium # mood disorder - continue bupropion + fluoxetine + nortriptyline + lorazepam # hypothyroidism - continue LT4 # PAD - continue apixban, statin # VTE ppx: apixaban # dispo: per PT eval likely STR, next 1-2d In my clinical judgment, the patient requires continued inpatient hospitalization for the following reasons: IV ABX Time Spent With Patient Time: Total time managing care of this patient today __28__ minutes. Quality Stroke Does the patient have a stroke diagnosis?: No VTE Prior VTE?: No VTE Risk Level:: Medical - moderate - high VTE Device Contraindication: Treatment Not Indicated VTE Drug Contraindication: N/A - Med Ordered
--- NOTE | 2022-11-09 11:25 | MHC.CDI.CONC ---
CDI Concurrent Query Documentation Clarification: PHYSICIAN'S DOCUMENTATION REQUEST Date of Query: 11/09/22 1125 Patient Name: Emiliana Rea Admit Date: 11/08/22 Dear Doctor, A review of the medical record indicates additional documentation may be needed. Please review below and update the documentation accordingly. Clinical Indicators: Documentation on 11/08/22 indicates a wound. Risk Factors/Clinical Indicators/Treatments Skin: erythema over R olecranon with clear drainage; full ROM elbow wound with cellulitis Treated with IV antibiotics Based on the above, could you please provide in the Progress Notes, further information regarding the ulcer: Type (etiology) of wound: Abrasion Laceration Other Unable to determine Please indicate the depth/severity of the wound: Limited to the breakdown of skin With fat layer exposed With necrosis of muscle With necrosis of bone Other Unable to determine Use of terms such as suspected, likely, concern for, or probable (associated with a specific diagnosis that is being evaluated, monitored, or treated as if it exists) are acceptable and can be coded in the inpatient setting, when documented at the time of discharge. Thank you, Jenelle Willard ,ERIKA Extension: [phone] Please use your independent medical judgment in providing your response. THIS QUERY IS PART OF THE PERMANENT MEDICAL RECORD Provider Response: Other Other Diagnosis: unable to det
[2022-11-09] MEDS: predniSONE 5 MG TABLET 15 MG PO (11:41)
[2022-11-09] MEDS: traMADoL HCL 50 MG TABLET PO (17:18)
[2022-11-09 18:51] LABS: Vancomycin Trough 13.8 mcg/mL (10.0-20.0)
[2022-11-09] MEDS: Fluticasone Propionate 250 MCG BLST.W.DEV 1 PUFF INHALE (19:37)
[2022-11-09] MEDS: Nortriptyline HCl 25 MG CAPSULE 75 MG PO (21:08)
[2022-11-09] MEDS: Pravastatin Sodium 40 MG TABLET PO (21:08)
[2022-11-10] MEDS: traMADoL HCL 50 MG TABLET PO ×3 (00:12→20:49)
[2022-11-10] MEDS: Lactated Ringers 1,000 ML 100 ML IVCONT (00:14)
[2022-11-10 03:45] VITALS: BP 114/58; PULSE 75; RESP 17; TEMP 36.4; O2SAT 92
[2022-11-10] MEDS: Piperacillin Sodium/Tazobactam 3.375 GM in 0.9 % Sodium Chloride 50 ML IV ×4 (04:53→20:41)
[2022-11-10] MEDS: Levothyroxine Sodium 175 MCG TABLET PO (04:53)
[2022-11-10 06:57] LABS: Hematocrit 32.9 % (37.0-47.0); Hemoglobin 9.5 g/dl (12.0-16.0); Mean Corpuscular HGB Conc 28.9 g/dl (31.0-35.0); Mean Corpuscular Hemoglobin 23.2 pg (27.0-33.0); Mean Corpuscular Volume 80.4 fL (80.0-98.0); Mean Platelet Volume 9.1 fL (9.4-12.3); Platelet Count 221 X10*3/uL (160-400); Red Blood Count 4.09 X10*6/uL (4.20-5.50); Red Cell Distribution Width 13.9 % (11.0-16.0); White Blood Count 12.7 X10*3/uL (4.8-10.8)
[2022-11-10 07:37] LABS: Anion Gap 12 (12-20); Blood Urea Nitrogen 8 mg/dL (9-16); C Reactive Protein 4.54 mg/dL (< or = 0.50); Calcium 7.8 mg/dL (8.4-10.2); Carbon Dioxide 26 mmol/L (22-29); Chloride 108 mmol/L (96-108); Creatinine Clr Calc Pharmacy 97.3; Estimated Glomerular Filt Rate > 60; Glucose Random 71 mg/dL (60-115); Sodium 142 mmol/L (135-145)
[2022-11-10] MEDS: Folic Acid 1 MG TABLET PO (08:41)
[2022-11-10] MEDS: Famotidine 20 MG TABLET PO (08:41)
[2022-11-10] MEDS: predniSONE 20 MG TABLET PO (08:41)
[2022-11-10] MEDS: Apixaban 5 MG TABLET PO ×2 (08:41→19:19)
[2022-11-10] MEDS: Loratadine 10 MG TABLET PO (08:41)
[2022-11-10] MEDS: Hydroxychloroquine Sulfate 200 MG TABLET PO ×2 (08:41→19:19)
[2022-11-10] MEDS: Multivitamin TABLET 1 TAB PO (08:41)
[2022-11-10] MEDS: buPROPion HCl XL 150 MG TAB.ER.24H PO (08:41)
[2022-11-10] MEDS: Ferrous Sulfate 324 MG TABLET.DR PO (08:41)
[2022-11-10] MEDS: FLUoxetine HCl 20 MG CAPSULE 40 MG PO (08:41)
[2022-11-10] MEDS: 0.9 % Sodium Chloride Flush 3 ML SYRINGE IVFLUSH (08:46)
[2022-11-10] MEDS: sulfaSALAzine 500 MG TABLET PO ×2 (09:06→19:19)
--- NOTE | 2022-11-10 10:18 | HO.PM.IMPN ---
Subjective Subjective Date of Service: 11/10/22 Interval History: R elbow pain/drainage Hands + feet painful; swelling improved Review of Systems Review of Systems: Yes all other systems are reviewed and are negative Physical Exam Vital Signs: Vital Signs: Last Vital Signs Temp 97.6 F 11/10/22 03:45 Pulse 75 11/10/22 03:45 Resp 17 11/10/22 03:45 BP 114/58 L 11/10/22 03:45 Pulse Ox 92 11/10/22 03:45 O2 Del Method 11/10/22 03:45 BMI result Body Mass Index 26.5 Gen: in no acute distress HEENT: sclera anicteric, moist mucus membranes Neck: supple Lungs: clear to auscultation bilaterally Heart: regular rate and rhythm, no murmurs Abd: soft, non-tender, non-distended Ext: tenderness/swelling MCP and MTP joints bilaterally Skin: erythema over R olecranon surrounding a soft tissue wound with clear drainage; full ROM Neuro: alert and oriented x3, no focal findings Psych: appropriate affect Objective Data Active Medications Acetaminophen (Acetaminophen 325 Mg Tablet) 650 mg PO Q6H PRN PRN Reason: Pain, Mild (Pain Scale 1-3) Last Admin: 11/08/22 16:48 Dose: 650 mg Documented By: MARLEN-MARIAJOSELA Acetaminophen/Butalbital/Caffeine (Butalb/Acetamin/Caff 50/325/40 Tablet) 2 tab PO DAILY PRN PRN Reason: headache Albuterol Sulfate (Albuterol Sulfate (0.083%) 2.5 Mg/3 Ml Vial.Neb) 2.5 mg INHALE Q6H PRN PRN Reason: Shortness Of Breath Or Wheezing Last Admin: 11/09/22 10:26 Dose: 2.5 mg Documented By: KULWINDER Albuterol Sulfate (Albuterol Sulfate 90 Mcg 8 Gm Inhaler) 2 puff INHALE Q4H PRN PRN Reason: Shortness Of Breath Or Wheezing Apixaban (Apixaban 5 Mg Tablet) 5 mg PO BID [facility] Last Admin: 11/10/22 08:41 Dose: 5 mg Documented By: NIDHI Bupropion HCl (Bupropion Hcl Xl 150 Mg Tab.Er.24h) 150 mg PO DAILY [facility] Last Admin: 11/10/22 08:41 Dose: 150 mg Documented By: NIDHI Famotidine (Famotidine 20 Mg Tablet) 20 mg PO DAILY [facility] Last Admin: 11/10/22 08:41 Dose: 20 mg Documented By: NIDHI Ferrous Sulfate (Ferrous Sulfate 324 Mg Tablet.Dr) 324 mg PO DAILY [facility] Last Admin: 11/10/22 08:41 Dose: 324 mg Documented By: NIDHI Fluoxetine HCl (Fluoxetine Hcl 20 Mg Capsule) 40 mg PO DAILY [facility] Last Admin: 11/10/22 08:41 Dose: 40 mg Documented By: NIDHI Fluticasone Propionate (Fluticasone Propionate 250 Mcg Blst.W.Dev) 1 puff INHALE RBID [facility] Last Admin: 11/10/22 09:11 Dose: Not Given Documented By: CARLA Non-Admin Reason: Patient Refused Folic Acid (Folic Acid 1 Mg Tablet) 1 mg PO DAILY [facility] Last Admin: 11/10/22 08:41 Dose: 1 mg Documented By: NIDHI Hydroxychloroquine Sulfate (Hydroxychloroquine Sulfate 200 Mg Tablet) 200 mg PO BID [facility] Last Admin: 11/10/22 08:41 Dose: 200 mg Documented By: NIDHI Piperacillin Sod/Tazobactam (Sod 3.375 gm/ Sodium Chloride) 50 mls @ 100 mls/hr IV Q6H [facility] Last Infusion: 11/10/22 06:03 Dose: 0 mls/hr Documented By: [place] Vancomycin HCl 1,000 mg/ (Sodium Chloride) 270 mls @ 270 mls/hr IV Q12H [facility] Last Admin: 11/10/22 08:42 Dose: 270 mls/hr Documented By: NIDHI Levothyroxine Sodium (Levothyroxine Sodium 175 Mcg Tablet) 175 mcg PO DAILY@0600 [facility] Last Admin: 11/10/22 04:53 Dose: 175 mcg Documented By: [place] Loratadine (Loratadine 10 Mg Tablet) 10 mg PO DAILY [facility] Last Admin: 11/10/22 08:41 Dose: 10 mg Documented By: NIDHI Lorazepam (Lorazepam 1 Mg Tablet) 1 mg PO BID PRN PRN Reason: Anxiety Multivitamins/Vitamin C (Multivitamin Tablet) 1 tab PO DAILY [facility] Last Admin: 11/10/22 08:41 Dose: 1 tab Documented By: NIDHI Nortriptyline HCl (Nortriptyline Hcl 25 Mg Capsule) 75 mg PO BEDTIME [facility] Last Admin: 11/09/22 21:08 Dose: 75 mg Documented By: VERNA Ondansetron HCl (Ondansetron Hcl 4 Mg/2 Ml Vial) 4 mg IVPUSH Q8H PRN PRN Reason: Nausea and Vomiting Pharmacy Consult (Consult Rx Vancomycin Dosing) 1 each MISCELLANE DAILY PRN PRN Reason: Consult order Pravastatin Sodium (Pravastatin Sodium 40 Mg Tablet) 40 mg PO BEDTIME [facility] Last Admin: 11/09/22 21:08 Dose: 40 mg Documented By: VERNA Prednisone (Prednisone 20 Mg Tablet) 20 mg PO DAILY [facility] Last Admin: 11/10/22 08:41 Dose: 20 mg Documented By: NIDHI Sodium Chloride (0.9 % Sodium Chloride Flush 3 Ml Syringe) 3 ml IVFLUSH QSHIFT [facility] Last Admin: 11/10/22 08:46 Dose: 3 ml Documented By: NIDHI Sulfasalazine (Sulfasalazine 500 Mg Tablet) 500 mg PO BID [facility] Last Admin: 11/10/22 09:06 Dose: 500 mg Documented By: NIDHI Tiotropium [place] (Tiotropium [place] 18 Mcg Cap.W.Dev) 1 puff INHALE RDAILY [facility] Last Admin: 11/10/22 09:11 Dose: Not Given Documented By: CARLA Non-Admin Reason: Patient Refused Tramadol HCl (Tramadol Hcl 50 Mg Tablet) 50 mg PO Q6H PRN PRN Reason: severe pain Last Admin: 11/10/22 00:12 Dose: 50 mg Documented By: [place] Labs CBC & Chem 7: 11/10/22 05:52 11/10/22 05:52 Labs: Laboratory Results - last 24 hr 11/09/22 11/10/22 11/10/22 18:03 05:52 05:52 MCV 80.4 MCH 23.2 L MCHC 28.9 L RDW 13.9 Plt Count 221 MPV 9.1 L Absolute Nucleated RBC 0.000 Nucleated RBC % (auto) 0.0 Anion Gap 12 Estim Creat Clear Calc 97.3 Estimated GFR > 60 Random Glucose 71 Calcium 7.8 L D C-Reactive Protein 4.54 H Vancomycin Trough 13.8 Microbiology Microbiology Results: Microbiology 11/08/22 03:36 Blood Culture - Preliminary Blood - Venous No growth after 48 hours. 11/08/22 03:36 Blood Culture - Preliminary Blood - Venous No growth after 48 hours. Assessment and Plan (1) Falling: Status: Acute (2) Open wound of right elbow: Status: Acute (3) Cellulitis: Status: Acute Plan d#3 47yo F with COPD, PAD, SLE/RA/MCTD on chronic prednisone + hydroxychloroquine presenting after falling, admitted for concern of infection of chronic wound over olecranon # cellulitis/wound infection - vanco + pip/matt d#3 given immunosuppression, orthopedics consulted- no surgical drainage indicated; wound care consult # hypoK - repleted # SLE/RA/MCTD - continue prednisone + hydroxychloroquine + sulfasalazine. increased prednisone from 5 to 20 mg/d for RA flare # COPD - continue prn albuterol + controller tiotropium # mood disorder - continue bupropion + fluoxetine + nortriptyline + lorazepam # hypothyroidism - continue LT4 # PAD - continue apixban, statin # VTE ppx: apixaban # dispo: per PT eval likely STR, next 1-2d In my clinical judgment, the patient requires continued inpatient hospitalization for the following reasons: IV ABX Time Spent With Patient Time: Total time managing care of this patient today ____ minutes. Quality Stroke Does the patient have a stroke diagnosis?: No VTE Prior VTE?: No VTE Risk Level:: Medical - moderate - high VTE Device Contraindication: Treatment Not Indicated VTE Drug Contraindication: N/A - Med Ordered
[2022-11-10 16:00] VITALS: BP 122/71; PULSE 78; RESP 18; TEMP 37.1; O2SAT 95
[2022-11-10 18:57] LABS: Vancomycin Random 18.9 mcg/mL (15-20)
--- NOTE | 2022-11-10 19:08 | HE.PHANOTE ---
Vancomycin Dosing Patient Level 18.9 today. Renal function is stable. Continue current regimen. Vanco 1000 mg Q12H, with an expected AUC of 542 with a trough of 16.7. Patient should be at steady, but if level continues to rise may need to decrease dose tomorrow. Next level 11/11 @ 1800. Pharmacy will continue to monitor renal function daily. Ibis Min, PharmD
[2022-11-10] MEDS: Pravastatin Sodium 40 MG TABLET PO (19:19)
[2022-11-10] MEDS: Nortriptyline HCl 25 MG CAPSULE 75 MG PO (19:19)
[2022-11-10 19:42] VITALS: BP 132/66; PULSE 80; RESP 20; TEMP 36.4; O2SAT 97
[2022-11-10] MEDS: Fluticasone Propionate 250 MCG BLST.W.DEV 1 PUFF INHALE (20:13)
[2022-11-10 20:14] VITALS: PULSE 80; RESP 20
[2022-11-10] MEDS: LORazepam 1 MG TABLET PO (20:49)
[2022-11-11] MEDS: Piperacillin Sodium/Tazobactam 3.375 GM in 0.9 % Sodium Chloride 50 ML IV ×4 (03:15→20:33)
[2022-11-11 04:00] VITALS: BP 116/70; PULSE 90; RESP 16; TEMP 36.9; O2SAT 97
[2022-11-11] MEDS: Levothyroxine Sodium 175 MCG TABLET PO (06:00)
[2022-11-11 07:31] VITALS: BP 125/57; PULSE 86; RESP 18; TEMP 37.1; O2SAT 95
[2022-11-11 07:56] LABS: Creatinine Clr Calc Pharmacy 90.4; Estimated Glomerular Filt Rate > 60
[2022-11-11] MEDS: sulfaSALAzine 500 MG TABLET PO ×2 (08:28→20:33)
[2022-11-11] MEDS: Famotidine 20 MG TABLET PO (08:28)
[2022-11-11] MEDS: Apixaban 5 MG TABLET PO ×2 (08:29→20:34)
[2022-11-11] MEDS: predniSONE 20 MG TABLET PO (08:29)
[2022-11-11] MEDS: FLUoxetine HCl 20 MG CAPSULE 40 MG PO (08:29)
[2022-11-11] MEDS: buPROPion HCl XL 150 MG TAB.ER.24H PO (08:29)
[2022-11-11] MEDS: Ferrous Sulfate 324 MG TABLET.DR PO (08:29)
[2022-11-11] MEDS: Hydroxychloroquine Sulfate 200 MG TABLET PO ×2 (08:29→20:34)
[2022-11-11] MEDS: Folic Acid 1 MG TABLET PO (08:29)
[2022-11-11] MEDS: Loratadine 10 MG TABLET PO (08:29)
[2022-11-11] MEDS: Multivitamin TABLET 1 TAB PO (08:29)
[2022-11-11] MEDS: 0.9 % Sodium Chloride Flush 3 ML SYRINGE IVFLUSH (08:30)
[2022-11-11] MEDS: Fluticasone Propionate 250 MCG BLST.W.DEV 1 PUFF INHALE ×2 (08:38→20:10)
--- NOTE | 2022-11-11 11:53 | HO.PM.IMPN ---
Subjective Subjective Date of Service: 11/11/22 Interval History: redness improved on elbow hand/foot swelling/pain improved Review of Systems Review of Systems: Yes all other systems are reviewed and are negative Physical Exam Vital Signs: Vital Signs: Last Vital Signs Temp 98.8 F 11/11/22 07:31 Pulse 86 11/11/22 07:31 Resp 18 11/11/22 07:31 BP 125/57 L 11/11/22 07:31 Pulse Ox 95 11/11/22 07:31 O2 Del Method 11/11/22 07:31 BMI result Body Mass Index 26.5 Gen: in no acute distress HEENT: sclera anicteric, moist mucus membranes Neck: supple Lungs: clear to auscultation bilaterally Heart: regular rate and rhythm, no murmurs Abd: soft, non-tender, non-distended Ext: tenderness/swelling MCP and MTP joints bilaterally Skin: erythema over R olecranon surrounding a soft tissue wound with clear drainage; full ROM Neuro: alert and oriented x3, no focal findings Psych: appropriate affect Objective Data Active Medications Acetaminophen (Acetaminophen 325 Mg Tablet) 650 mg PO Q6H PRN PRN Reason: Pain, Mild (Pain Scale 1-3) Last Admin: 11/08/22 16:48 Dose: 650 mg Documented By: MARLEN-MARIAJOSELA Acetaminophen/Butalbital/Caffeine (Butalb/Acetamin/Caff 50/325/40 Tablet) 2 tab PO DAILY PRN PRN Reason: headache Albuterol Sulfate (Albuterol Sulfate (0.083%) 2.5 Mg/3 Ml Vial.Neb) 2.5 mg INHALE Q6H PRN PRN Reason: Shortness Of Breath Or Wheezing Last Admin: 11/09/22 10:26 Dose: 2.5 mg Documented By: KULWINDER Albuterol Sulfate (Albuterol Sulfate 90 Mcg 8 Gm Inhaler) 2 puff INHALE Q4H PRN PRN Reason: Shortness Of Breath Or Wheezing Apixaban (Apixaban 5 Mg Tablet) 5 mg PO BID [facility] Last Admin: 11/11/22 08:29 Dose: 5 mg Documented By: NIDHI Bupropion HCl (Bupropion Hcl Xl 150 Mg Tab.Er.24h) 150 mg PO DAILY [facility] Last Admin: 11/11/22 08:29 Dose: 150 mg Documented By: NIDHI Famotidine (Famotidine 20 Mg Tablet) 20 mg PO DAILY [facility] Last Admin: 11/11/22 08:28 Dose: 20 mg Documented By: NIDHI Ferrous Sulfate (Ferrous Sulfate 324 Mg Tablet.Dr) 324 mg PO DAILY [facility] Last Admin: 11/11/22 08:29 Dose: 324 mg Documented By: NIDHI Fluoxetine HCl (Fluoxetine Hcl 20 Mg Capsule) 40 mg PO DAILY [facility] Last Admin: 11/11/22 08:29 Dose: 40 mg Documented By: NIDHI Fluticasone Propionate (Fluticasone Propionate 250 Mcg Blst.W.Dev) 1 puff INHALE RBID [facility] Last Admin: 11/11/22 08:38 Dose: 1 puff Documented By: CARLA Folic Acid (Folic Acid 1 Mg Tablet) 1 mg PO DAILY [facility] Last Admin: 11/11/22 08:29 Dose: 1 mg Documented By: NIDHI Hydroxychloroquine Sulfate (Hydroxychloroquine Sulfate 200 Mg Tablet) 200 mg PO BID [facility] Last Admin: 11/11/22 08:29 Dose: 200 mg Documented By: NIDHI Piperacillin Sod/Tazobactam (Sod 3.375 gm/ Sodium Chloride) 50 mls @ 100 mls/hr IV Q6H [facility] Last Infusion: 11/11/22 10:45 Dose: 0 mls/hr Documented By: NIDHI Vancomycin HCl 750 mg/ Sodium (Chloride) 265 mls @ 265 mls/hr IV Q12H [facility] Last Infusion: 11/11/22 09:51 Dose: 0 mls/hr Documented By: NIDHI Levothyroxine Sodium (Levothyroxine Sodium 175 Mcg Tablet) 175 mcg PO DAILY@0600 [facility] Last Admin: 11/11/22 06:00 Dose: 175 mcg Documented By: BARBARA Loratadine (Loratadine 10 Mg Tablet) 10 mg PO DAILY [facility] Last Admin: 11/11/22 08:29 Dose: 10 mg Documented By: NIDHI Lorazepam (Lorazepam 1 Mg Tablet) 1 mg PO BID PRN PRN Reason: Anxiety Last Admin: 11/10/22 20:49 Dose: 1 mg Documented By: BARBARA Multivitamins/Vitamin C (Multivitamin Tablet) 1 tab PO DAILY [facility] Last Admin: 11/11/22 08:29 Dose: 1 tab Documented By: NIDHI Nortriptyline HCl (Nortriptyline Hcl 25 Mg Capsule) 75 mg PO BEDTIME [facility] Last Admin: 11/10/22 19:19 Dose: 75 mg Documented By: BARBARA Ondansetron HCl (Ondansetron Hcl 4 Mg/2 Ml Vial) 4 mg IVPUSH Q8H PRN PRN Reason: Nausea and Vomiting Pharmacy Consult (Consult Rx Vancomycin Dosing) 1 each MISCELLANE DAILY PRN PRN Reason: Consult order Pravastatin Sodium (Pravastatin Sodium 40 Mg Tablet) 40 mg PO BEDTIME [facility] Last Admin: 11/10/22 19:19 Dose: 40 mg Documented By: BARBARA Prednisone (Prednisone 20 Mg Tablet) 20 mg PO DAILY [facility] Last Admin: 11/11/22 08:29 Dose: 20 mg Documented By: NIDHI Sodium Chloride (0.9 % Sodium Chloride Flush 3 Ml Syringe) 3 ml IVFLUSH QSHIFT [facility] Last Admin: 11/11/22 08:30 Dose: 3 ml Documented By: NIDHI Sulfasalazine (Sulfasalazine 500 Mg Tablet) 500 mg PO BID [facility] Last Admin: 11/11/22 08:28 Dose: 500 mg Documented By: NIDHI Tiotropium [place] (Tiotropium [place] 18 Mcg Cap.W.Dev) 1 puff INHALE RDAILY [facility] Last Admin: 11/11/22 08:38 Dose: 1 puff Documented By: CARLA Tramadol HCl (Tramadol Hcl 50 Mg Tablet) 50 mg PO Q6H PRN PRN Reason: severe pain Last Admin: 11/10/22 20:49 Dose: 50 mg Documented By: BARBARA Labs CBC & Chem 7: 11/10/22 05:52 11/11/22 06:48 Labs: Laboratory Results - last 24 hr 11/10/22 11/11/22 18:18 06:48 Estim Creat Clear Calc 90.4 Estimated GFR > 60 Random Vancomycin 18.9 Assessment and Plan (1) Falling: Status: Acute (2) Open wound of right elbow: Status: Acute (3) Cellulitis: Status: Acute Plan d#4 47yo F with COPD, PAD, SLE/RA/MCTD on chronic prednisone + hydroxychloroquine presenting after falling, admitted for concern of infection of chronic wound over olecranon # cellulitis/wound infection - vanco + pip/matt d#4 given immunosuppression, orthopedics consulted- no surgical drainage indicated; wound care consult # hypoK - repleted # SLE/RA/MCTD - continue prednisone + hydroxychloroquine + sulfasalazine. increased prednisone from 5 to 20 mg/d for RA flare, will need to taper slowly # COPD - continue prn albuterol + controller tiotropium # mood disorder - continue bupropion + fluoxetine + nortriptyline + lorazepam # hypothyroidism - continue LT4 # PAD - continue apixban, statin # VTE ppx: apixaban # dispo: per PT eval likely STR, perhaps tomorrow In my clinical judgment, the patient requires continued inpatient hospitalization for the following reasons: IV ABX Time Spent With Patient Time: Total time managing care of this patient today ____ minutes. Quality Stroke Does the patient have a stroke diagnosis?: No VTE Prior VTE?: No VTE Risk Level:: Medical - moderate - high VTE Device Contraindication: Treatment Not Indicated VTE Drug Contraindication: N/A - Med Ordered
[2022-11-11 15:48] VITALS: BP 132/68; PULSE 59; RESP 20; TEMP 36.9; O2SAT 97
[2022-11-11 19:45] VITALS: BP 140/56; PULSE 68; RESP 18; TEMP 36.4; O2SAT 95
[2022-11-11 20:11] VITALS: PULSE 68; RESP 18; O2SAT 95
[2022-11-11 20:22] LABS: Vancomycin Random 17.3 mcg/mL (15-20)
[2022-11-11] MEDS: Pravastatin Sodium 40 MG TABLET PO (20:34)
[2022-11-11] MEDS: Nortriptyline HCl 25 MG CAPSULE 75 MG PO (20:34)
[2022-11-12] VITALS (8 sets, daily range): BP systolic 108–144; BP diastolic 55–74; PULSE 75–100; RESP 14–20; TEMP 36.6–36.9; O2SAT 92–94
[2022-11-12] MEDS: 0.9 % Sodium Chloride Flush 3 ML SYRINGE IVFLUSH ×3 (00:23→16:35)
[2022-11-12] MEDS: Piperacillin Sodium/Tazobactam 3.375 GM in 0.9 % Sodium Chloride 50 ML IV ×4 (03:29→20:29)
[2022-11-12] MEDS: Levothyroxine Sodium 175 MCG TABLET PO (06:09)
--- NOTE | 2022-11-12 06:23 | PM.EVENT ---
Event Note Date of Service: 11/12/22 Event Note: compalining of vaginal yeast infection symptoms and reports taken diflucan in the past. will one one time dose Time Spent With Patient Time: Total time managing care of this patient today ____ minutes.
[2022-11-12] MEDS: traMADoL HCL 50 MG TABLET PO ×2 (06:28→14:14)
[2022-11-12 06:31] LABS: Hematocrit 35.5 % (37.0-47.0); Hemoglobin 10.4 g/dl (12.0-16.0); Mean Corpuscular HGB Conc 29.3 g/dl (31.0-35.0); Mean Corpuscular Hemoglobin 23.2 pg (27.0-33.0); Mean Corpuscular Volume 79.2 fL (80.0-98.0); Mean Platelet Volume 8.7 fL (9.4-12.3); Platelet Count 352 X10*3/uL (160-400); Red Blood Count 4.48 X10*6/uL (4.20-5.50); Red Cell Distribution Width 14.2 % (11.0-16.0); White Blood Count 19.5 X10*3/uL (4.8-10.8)
[2022-11-12 06:45] LABS: C Reactive Protein 1.98 mg/dL (< or = 0.50); Creatinine Clr Calc Pharmacy 75.3; Estimated Glomerular Filt Rate > 60
--- NOTE | 2022-11-12 07:41 | HE.PHANOTE ---
DEA TAYLOR CONTINUE CURRENT DOSE, NEXT LEVEL DUE 11/12 @1800 TAWANNA
[2022-11-12] MEDS: sulfaSALAzine 500 MG TABLET PO ×2 (08:21→20:28)
[2022-11-12] MEDS: buPROPion HCl XL 150 MG TAB.ER.24H PO (08:21)
[2022-11-12] MEDS: Famotidine 20 MG TABLET PO (08:21)
[2022-11-12] MEDS: Multivitamin TABLET 1 TAB PO (08:21)
[2022-11-12] MEDS: Hydroxychloroquine Sulfate 200 MG TABLET PO ×2 (08:21→20:28)
[2022-11-12] MEDS: FLUoxetine HCl 20 MG CAPSULE 40 MG PO (08:21)
[2022-11-12] MEDS: Loratadine 10 MG TABLET PO (08:21)
[2022-11-12] MEDS: Ferrous Sulfate 324 MG TABLET.DR PO (08:22)
[2022-11-12] MEDS: Apixaban 5 MG TABLET PO ×2 (08:22→20:28)
[2022-11-12] MEDS: Folic Acid 1 MG TABLET PO (08:22)
[2022-11-12] MEDS: predniSONE 20 MG TABLET PO (08:22)
[2022-11-12] MEDS: Fluticasone Propionate 250 MCG BLST.W.DEV 1 PUFF INHALE ×2 (08:24→19:56)
[2022-11-12] MEDS: Acetaminophen 325 MG TABLET 650 MG PO ×2 (08:39→16:38)
--- NOTE | 2022-11-12 09:58 | HO.PM.IMPN ---
Subjective Subjective Date of Service: 11/12/22 Interval History: wound on elbow draining hands and feet less painful + swollen Review of Systems Review of Systems: Yes all other systems are reviewed and are negative Physical Exam Vital Signs: Vital Signs: Last Vital Signs Temp 97.8 F 11/12/22 06:58 Pulse 100 11/12/22 08:25 Resp 20 11/12/22 08:25 BP 144/74 H 11/12/22 06:58 Pulse Ox 93 11/12/22 06:58 O2 Del Method 11/12/22 06:58 BMI result Body Mass Index 26.5 Gen: in no acute distress HEENT: sclera anicteric, moist mucus membranes Neck: supple Lungs: clear to auscultation bilaterally Heart: regular rate and rhythm, no murmurs Abd: soft, non-tender, non-distended Ext: tenderness/swelling MCP and MTP joints bilaterally, extensive joint deformities emily in foot Skin: edema around R olecranon surrounding a heaped-up soft tissue ulcer with clear drainage; somewhat boggy distal to this wound Neuro: alert and oriented x3, no focal findings Psych: appropriate affect Objective Data Active Medications Acetaminophen (Acetaminophen 325 Mg Tablet) 650 mg PO Q6H PRN PRN Reason: Pain, Mild (Pain Scale 1-3) Last Admin: 11/12/22 08:39 Dose: 650 mg Documented By: SHELBY Acetaminophen/Butalbital/Caffeine (Butalb/Acetamin/Caff 50/325/40 Tablet) 2 tab PO DAILY PRN PRN Reason: headache Albuterol Sulfate (Albuterol Sulfate (0.083%) 2.5 Mg/3 Ml Vial.Neb) 2.5 mg INHALE Q6H PRN PRN Reason: Shortness Of Breath Or Wheezing Last Admin: 11/09/22 10:26 Dose: 2.5 mg Documented By: KULWINDER Albuterol Sulfate (Albuterol Sulfate 90 Mcg 8 Gm Inhaler) 2 puff INHALE Q4H PRN PRN Reason: Shortness Of Breath Or Wheezing Apixaban (Apixaban 5 Mg Tablet) 5 mg PO BID [facility] Last Admin: 11/12/22 08:22 Dose: 5 mg Documented By: SHELBY Bupropion HCl (Bupropion Hcl Xl 150 Mg Tab.Er.24h) 150 mg PO DAILY [facility] Last Admin: 11/12/22 08:21 Dose: 150 mg Documented By: SHELBY Famotidine (Famotidine 20 Mg Tablet) 20 mg PO DAILY [facility] Last Admin: 11/12/22 08:21 Dose: 20 mg Documented By: SHELBY Ferrous Sulfate (Ferrous Sulfate 324 Mg Tablet.Dr) 324 mg PO DAILY [facility] Last Admin: 11/12/22 08:22 Dose: 324 mg Documented By: SHELBY Fluoxetine HCl (Fluoxetine Hcl 20 Mg Capsule) 40 mg PO DAILY [facility] Last Admin: 11/12/22 08:21 Dose: 40 mg Documented By: SHELBY Fluticasone Propionate (Fluticasone Propionate 250 Mcg Blst.W.Dev) 1 puff INHALE RBID [facility] Last Admin: 11/12/22 08:24 Dose: 1 puff Documented By: EDUARDA Folic Acid (Folic Acid 1 Mg Tablet) 1 mg PO DAILY [facility] Last Admin: 11/12/22 08:22 Dose: 1 mg Documented By: SHELBY Hydroxychloroquine Sulfate (Hydroxychloroquine Sulfate 200 Mg Tablet) 200 mg PO BID [facility] Last Admin: 11/12/22 08:21 Dose: 200 mg Documented By: SHELBY Piperacillin Sod/Tazobactam (Sod 3.375 gm/ Sodium Chloride) 50 mls @ 100 mls/hr IV Q6H [facility] Last Admin: 11/12/22 09:35 Dose: 100 mls/hr Documented By: SHELBY Vancomycin HCl 750 mg/ Sodium (Chloride) 265 mls @ 265 mls/hr IV Q12H [facility] Last Infusion: 11/12/22 09:33 Dose: 0 mls/hr Documented By: SHELBY Levothyroxine Sodium (Levothyroxine Sodium 175 Mcg Tablet) 175 mcg PO DAILY@0600 [facility] Last Admin: 11/12/22 06:09 Dose: 175 mcg Documented By: [place] Loratadine (Loratadine 10 Mg Tablet) 10 mg PO DAILY [facility] Last Admin: 11/12/22 08:21 Dose: 10 mg Documented By: SHELBY Lorazepam (Lorazepam 1 Mg Tablet) 1 mg PO BID PRN PRN Reason: Anxiety Last Admin: 11/10/22 20:49 Dose: 1 mg Documented By: BARBARA Multivitamins/Vitamin C (Multivitamin Tablet) 1 tab PO DAILY [facility] Last Admin: 11/12/22 08:21 Dose: 1 tab Documented By: SHELBY Nortriptyline HCl (Nortriptyline Hcl 25 Mg Capsule) 75 mg PO BEDTIME [facility] Last Admin: 11/11/22 20:34 Dose: 75 mg Documented By: GALI Ondansetron HCl (Ondansetron Hcl 4 Mg/2 Ml Vial) 4 mg IVPUSH Q8H PRN PRN Reason: Nausea and Vomiting Pharmacy Consult (Consult Rx Vancomycin Dosing) 1 each MISCELLANE DAILY PRN PRN Reason: Consult order Pravastatin Sodium (Pravastatin Sodium 40 Mg Tablet) 40 mg PO BEDTIME [facility] Last Admin: 11/11/22 20:34 Dose: 40 mg Documented By: GALI Prednisone (Prednisone 20 Mg Tablet) 20 mg PO DAILY [facility] Last Admin: 11/12/22 08:22 Dose: 20 mg Documented By: SHELBY Sodium Chloride (0.9 % Sodium Chloride Flush 3 Ml Syringe) 3 ml IVFLUSH QSHIFT [facility] Last Admin: 11/12/22 08:22 Dose: 3 ml Documented By: SHELBY Sulfasalazine (Sulfasalazine 500 Mg Tablet) 500 mg PO BID [facility] Last Admin: 11/12/22 08:21 Dose: 500 mg Documented By: SHELBY Tiotropium [place] (Tiotropium [place] 18 Mcg Cap.W.Dev) 1 puff INHALE RDAILY [facility] Last Admin: 11/12/22 08:24 Dose: 1 puff Documented By: EDUARDA Tramadol HCl (Tramadol Hcl 50 Mg Tablet) 50 mg PO Q6H PRN PRN Reason: severe pain Last Admin: 11/12/22 06:28 Dose: 50 mg Documented By: [place] Labs CBC & Chem 7: 11/12/22 05:52 11/12/22 05:52 Labs: Laboratory Results - last 24 hr 11/11/22 11/12/22 11/12/22 19:17 05:52 05:52 MCV 79.2 L MCH 23.2 L MCHC 29.3 L RDW 14.2 Plt Count 352 D MPV 8.7 L Absolute Nucleated RBC 0.000 Nucleated RBC % (auto) 0.0 Estim Creat Clear Calc 75.3 Estimated GFR > 60 C-Reactive Protein 1.98 H Random Vancomycin 17.3 Assessment and Plan (1) Falling: Status: Acute (2) Open wound of right elbow: Status: Acute (3) Cellulitis: Status: Acute Plan d#5 47yo F with COPD, PAD, SLE/RA/MCTD on chronic prednisone + hydroxychloroquine presenting after falling, admitted for infected wound over right olecranon # cellulitis/wound infection - on vanco + pip/matt d#5 given immunosuppression - orthopedics consulted- no surgical drainage indicated at admission but will image with CT elbow to assess - wound care consultation pending # hypoK - repleted # SLE/RA/MCTD - continue prednisone + hydroxychloroquine + sulfasalazine. increased prednisone from 5 to 20 mg/d for RA flare, will need to taper slowly # COPD - continue prn albuterol + controller tiotropium # mood disorder - continue bupropion + fluoxetine + nortriptyline + lorazepam # hypothyroidism - continue LT4 # PAD - continue apixban, statin # VTE ppx: apixaban # dispo: STR, perhaps in next 1-2d In my clinical judgment, the patient requires continued inpatient hospitalization for the following reasons: IV ABX Time Spent With Patient Time: Total time managing care of this patient today ____ minutes. Quality Stroke Does the patient have a stroke diagnosis?: No VTE Prior VTE?: No VTE Risk Level:: Medical - moderate - high VTE Device Contraindication: Treatment Not Indicated VTE Drug Contraindication: N/A - Med Ordered
[2022-11-12 19:29] LABS: Vancomycin Random 14.7 mcg/mL (15-20)
[2022-11-12] MEDS: Nortriptyline HCl 25 MG CAPSULE 75 MG PO (20:28)
[2022-11-12] MEDS: Pravastatin Sodium 40 MG TABLET PO (20:28)
[2022-11-13] MEDS: Piperacillin Sodium/Tazobactam 3.375 GM in 0.9 % Sodium Chloride 50 ML IV ×4 (02:47→20:33)
[2022-11-13] MEDS: 0.9 % Sodium Chloride Flush 3 ML SYRINGE IVFLUSH ×4 (02:50→20:34)
[2022-11-13 04:00] VITALS: BP 123/66; PULSE 81; RESP 16; TEMP 36.6; O2SAT 94
[2022-11-13] MEDS: Levothyroxine Sodium 175 MCG TABLET PO (05:54)
[2022-11-13 06:33] LABS: Hematocrit 32.5 % (37.0-47.0); Hemoglobin 9.5 g/dl (12.0-16.0); Mean Corpuscular HGB Conc 29.2 g/dl (31.0-35.0); Mean Corpuscular Volume 78.7 fL (80.0-98.0); Mean Platelet Volume 8.9 fL (9.4-12.3); Platelet Count 322 X10*3/uL (160-400); Red Blood Count 4.13 X10*6/uL (4.20-5.50); Red Cell Distribution Width 14.1 % (11.0-16.0); White Blood Count 11.9 X10*3/uL (4.8-10.8)
[2022-11-13 06:44] LABS: Anion Gap 10 (12-20); Blood Urea Nitrogen 11 mg/dL (9-16); Calcium 8.3 mg/dL (8.4-10.2); Carbon Dioxide 30 mmol/L (22-29); Chloride 105 mmol/L (96-108); Creatinine Clr Calc Pharmacy 86.6; Estimated Glomerular Filt Rate > 60; Glucose Random 76 mg/dL (60-115); Sodium 141 mmol/L (135-145)
[2022-11-13 06:58] VITALS: BP 118/68; PULSE 83; RESP 18; TEMP 37.3; O2SAT 92
[2022-11-13] MEDS: Fluticasone Propionate 250 MCG BLST.W.DEV 1 PUFF INHALE ×2 (07:30→20:33)
[2022-11-13 07:32] VITALS: PULSE 86; O2SAT 94
--- NOTE | 2022-11-13 07:41 | HE.PHANOTE ---
Vancomycin Dosing Addendum Patients Scr is back down to 0.73 from 0.84 today. Continue current dose of 750 mg Q12H. Predicted AUC 439 mg/L/hr. Next level 11/14 @0600
[2022-11-13] MEDS: Folic Acid 1 MG TABLET PO (08:08)
[2022-11-13] MEDS: Loratadine 10 MG TABLET PO (08:08)
[2022-11-13] MEDS: Famotidine 20 MG TABLET PO (08:08)
[2022-11-13] MEDS: Multivitamin TABLET 1 TAB PO (08:08)
[2022-11-13] MEDS: Apixaban 5 MG TABLET PO (08:08)
[2022-11-13] MEDS: Ferrous Sulfate 324 MG TABLET.DR PO (08:08)
[2022-11-13] MEDS: Hydroxychloroquine Sulfate 200 MG TABLET PO ×2 (08:08→20:40)
[2022-11-13] MEDS: sulfaSALAzine 500 MG TABLET PO ×2 (08:08→20:40)
[2022-11-13] MEDS: FLUoxetine HCl 20 MG CAPSULE 40 MG PO (08:08)
[2022-11-13] MEDS: predniSONE 20 MG TABLET PO (08:08)
[2022-11-13] MEDS: buPROPion HCl XL 150 MG TAB.ER.24H PO (08:08)
[2022-11-13] MEDS: traMADoL HCL 50 MG TABLET PO (08:18)
[2022-11-13] MEDS: oxyCODONE HCl Immed Release 5 MG TABLET PO ×2 (09:36→14:12)
--- NOTE | 2022-11-13 11:53 | P.PNIM_ITS ---
Subjective Subjective Date of Service: 11/13/22 Interval History: States elbow feels more ?tight? than yesterday. Pain with minimal range most Review of Systems Denies chest pain Denies shortness of breath Denies nausea vomiting diarrhea Denies fever chills Physical Exam Vital Signs: Vital Signs: Last Vital Signs Temp 99.1 F 11/13/22 06:58 Pulse 86 11/13/22 07:32 Resp 18 11/13/22 06:58 BP 118/68 11/13/22 06:58 Pulse Ox 92 11/13/22 06:58 O2 Del Method 11/13/22 06:58 BMI result Body Mass Index 26.5 Const: Other: Awake alert no acute distress Resp: Other: Clear to auscultation bilaterally no rales rhonchi wheezes Cardio: Other: No S4; positive S1-S2; no S3 murmurs rubs or gallops GI: Other: Soft nontender nondistended normoactive bowel sounds Extrem: Other: Right elbow edematous tense dressing intact Objective Data Active Medications Acetaminophen (Acetaminophen 325 Mg Tablet) 650 mg PO Q6H PRN PRN Reason: Pain, Mild (Pain Scale 1-3) Last Admin: 11/12/22 16:38 Dose: 650 mg Documented By: YANDEL Acetaminophen/Butalbital/Caffeine (Butalb/Acetamin/Caff 50/325/40 Tablet) 2 tab PO DAILY PRN PRN Reason: headache Albuterol Sulfate (Albuterol Sulfate (0.083%) 2.5 Mg/3 Ml Vial.Neb) 2.5 mg INHALE Q6H PRN PRN Reason: Shortness Of Breath Or Wheezing Last Admin: 11/09/22 10:26 Dose: 2.5 mg Documented By: KULWINDER Albuterol Sulfate (Albuterol Sulfate 90 Mcg 8 Gm Inhaler) 2 puff INHALE Q4H PRN PRN Reason: Shortness Of Breath Or Wheezing Apixaban (Apixaban 5 Mg Tablet) 5 mg PO BID [facility] Last Admin: 11/13/22 08:08 Dose: 5 mg Documented By: SHELBY Bupropion HCl (Bupropion Hcl Xl 150 Mg Tab.Er.24h) 150 mg PO DAILY [facility] Last Admin: 11/13/22 08:08 Dose: 150 mg Documented By: SHELBY Famotidine (Famotidine 20 Mg Tablet) 20 mg PO DAILY [facility] Last Admin: 11/13/22 08:08 Dose: 20 mg Documented By: SHELBY Ferrous Sulfate (Ferrous Sulfate 324 Mg Tablet.Dr) 324 mg PO DAILY [facility] Last Admin: 11/13/22 08:08 Dose: 324 mg Documented By: SHELBY Fluoxetine HCl (Fluoxetine Hcl 20 Mg Capsule) 40 mg PO DAILY [facility] Last Admin: 11/13/22 08:08 Dose: 40 mg Documented By: SHELBY Fluticasone Propionate (Fluticasone Propionate 250 Mcg Blst.W.Dev) 1 puff IN [place] RBID [facility] Last Admin: 11/13/22 07:30 Dose: 1 puff Documented By: EDUARDA Folic Acid (Folic Acid 1 Mg Tablet) 1 mg PO DAILY [facility] Last Admin: 11/13/22 08:08 Dose: 1 mg Documented By: SHELBY Hydroxychloroquine Sulfate (Hydroxychloroquine Sulfate 200 Mg Tablet) 200 mg PO BID [facility] Last Admin: 11/13/22 08:08 Dose: 200 mg Documented By: SHELBY Piperacillin Sod/Tazobactam (Sod 3.375 gm/ Sodium Chloride) 50 mls @ 100 mls/hr IV Q6H [facility] Last Infusion: 11/13/22 10:22 Dose: 0 mls/hr Documented By: SHELBY Vancomycin HCl 750 mg/ Sodium (Chloride) 265 mls @ 265 mls/hr IV Q12H [facility] Last Infusion: 11/13/22 09:28 Dose: 0 mls/hr Documented By: SHELBY Levothyroxine Sodium (Levothyroxine Sodium 175 Mcg Tablet) 175 mcg PO DAILY@06 00 [facility] Last Admin: 11/13/22 05:54 Dose: 175 mcg Documented By: BARBARA Loratadine (Loratadine 10 Mg Tablet) 10 mg PO DAILY [facility] Last Admin: 11/13/22 08:08 Dose: 10 mg Documented By: SHELBY Lorazepam (Lorazepam 1 Mg Tablet) 1 mg PO BID PRN PRN Reason: Anxiety Last Admin: 11/10/22 20:49 Dose: 1 mg Documented By: BARBARA Multivitamins/Vitamin C (Multivitamin Tablet) 1 tab PO DAILY [facility] Last Admin: 11/13/22 08:08 Dose: 1 tab Documented By: SHELBY Nortriptyline HCl (Nortriptyline Hcl 25 Mg Capsule) 75 mg PO BEDTIME [facility] Last Admin: 11/12/22 20:28 Dose: 75 mg Documented By: YANDEL Ondansetron HCl (Ondansetron Hcl 4 Mg/2 Ml Vial) 4 mg IVPUSH Q8H PRN PRN Reason: Nausea and Vomiting Oxycodone HCl (Oxycodone Hcl Immed Release 5 Mg Tablet) 5 mg PO Q4H PRN PRN Reason: Pain, Moderate (Pain Scale 4-6 Last Admin: 11/13/22 09:36 Dose: 5 mg Documented By: SHELBY Pharmacy Consult (Consult Rx Vancomycin Dosing) 1 each MISCELLANE DAILY PRN PRN Reason: Consult order Pravastatin Sodium (Pravastatin Sodium 40 Mg Tablet) 40 mg PO BEDTIME [facility] Last Admin: 11/12/22 20:28 Dose: 40 mg Documented By: YANDEL Prednisone (Prednisone 20 Mg Tablet) 20 mg PO DAILY [facility] Last Admin: 11/13/22 08:08 Dose: 20 mg Documented By: SHELBY Sodium Chloride (0.9 % Sodium Chloride Flush 3 Ml Syringe) 3 ml IVFLUSH QSHIFT [facility] Last Admin: 11/13/22 08:09 Dose: 3 ml Documented By: SHELBY Sulfasalazine (Sulfasalazine 500 Mg Tablet) 500 mg PO BID [facility] Last Admin: 11/13/22 08:08 Dose: 500 mg Documented By: SHELBY Tiotropium [place] (Tiotropium [place] 18 Mcg Cap.W.Dev) 1 puff INHALE RDAILY [facility] Last Admin: 11/13/22 07:31 Dose: 1 puff Documented By: EDUARDA Labs CBC & Chem 7: 11/13/22 05:30 11/13/22 05:30 Labs: Laboratory Results - last 24 hr 11/12/22 11/13/22 11/13/22 17:51 05:30 05:30 MCV 78.7 L MCH 23.0 L MCHC 29.2 L RDW 14.1 Plt Count 322 MPV 8.9 L Absolute Nucleated RBC 0.000 Nucleated RBC % (auto) 0.0 Anion Gap 10 L Estim Creat Clear Calc 86.6 Estimated GFR > 60 Random Glucose 76 Calcium 8.3 L D Random Vancomycin 14.7 L Microbiology Microbiology Results: Microbiology 11/08/22 03:36 Blood Culture - Final Blood - Venous No growth after 5 days. 11/08/22 03:36 Blood Culture - Final Blood - Venous No growth after 5 days. Assessment and Plan (1) Cellulitis: Status: Acute (2) Rheumatoid arthritis: Status: Acute (3) Open wound of right elbow: Status: Acute (4) COPD (chronic obstructive pulmonary disease): Status: Acute Plan 47yo F with COPD, PAD, SLE/RA/MCTD on chronic prednisone + hydroxychloroquine presenting after falling, admitted for infected wound over right olecranon; initially drained in ER. CT available done yesterday shows increased fluid collection. 1.Cellulitis/wound infection -vanco/zosyn(6) given -orthopedics reconsulted- question need for surgical intervention - wound care consultation pending 2.SLE/RA/MCTD -prednisone/hydroxychloroquine/sulfasalazine. -prednisone increased for flare; will need to be tapered slowly 3.COPD -no acute issues -continue prn albuterol/ tiotropium 4.PAD -apixban/statin Full code Nitzaqulorraine Requires ongoing hospitalization for IV antibiotics to treat left infected elbow bursitis Time Spent With Patient Time: Total time managing care of this patient today ____ minutes. Quality Stroke Does the patient have a stroke diagnosis?: No VTE Prior VTE?: No VTE Risk Level:: Medical - moderate - high VTE Device Contraindication: Treatment Not Indicated VTE Drug Contraindication: N/A - Med Ordered
--- NOTE | 2022-11-13 12:24 | MHC.CM.PN ---
MIKEY [facility]WOR[facility]. CURRENTLY AWAITING ORTHO CONSULT
--- NOTE | 2022-11-13 15:42 | P.CONWO_ITS ---
History of Present Illness Data of Consult Service Date: 11/13/22 Requesting physician: Ashley Mark Primary Care Provider: Barbie Brown MD HPI Reason for consult: olecranon bursitis, right elbow 47-year-old female on prednisone and hydroxy quinolone, history of SLE, mixed connective tissue disorder and rheumatoid arthritis. Charcot foot history in the setting of diabetes who fell and her right elbow became swollen. After starting vancomycin and Zosyn in the hospital the redness improved and her white count improved. Blood cultures were negative. Comorbid history of stroke and peripheral arterial disease as documented. She tells me she is going to the OR tomorrow for surgical treatment of this infection of the elbow.. Review of Systems Review of Systems: Appetite is okay. Denies fever. Pain is little bit better in the right elbow with antibiotics. Yes all other systems are reviewed and are negative [facility] Medical History C. difficile colitis Cellulitis Cellulitis Cellulitis of right leg COPD (chronic obstructive pulmonary disease) CVA (cerebral vascular accident) Fibromyalgia Hypothyroid Immunosuppression due to chronic steroid use Lupus Mixed connective tissue disease PAD (peripheral artery disease) Pneumonia due to COVID-19 virus Proteinuria Redness and swelling of lower leg Respiratory failure with hypoxia Rheumatoid arthritis Secondary bacterial pneumonia Varicose veins of right lower extremity with inflammation Family History Father No problems noted. Mother Lung cancer Surgical History History of breast lump/mass excision History of bunionectomy History of cholecystectomy History of excision of mass History of partial hysterectomy Social History Household Members: Family Household Members Other:: 3 Housing: Apartment Do you presently have visiting nurse or other home services: Yes Alcohol intake: never Patient Tobacco Use Status: Current everyday Tobacco user Tobacco use type: Cigarette Cigarette Packs Per Day: 1 Cigarettes Per Day: 20.0 Years Smoked: 30 Second Hand Smoke Exposure: No Substance Use Type: Marijuana Advance Directives Date on File: 11/26/21 service: No Current occupational status: unemployed and disabled Meds Allergies Allergy/AdvReac Type Severity Reaction Status Date / Time clarithromycin Allergy Intermediate FACIAL Verified 11/08/22 01:19 [CLARITHROMYCIN] SWELLING/REDNESS, facial rash, facial rash, facial rash, facial rash Active Medications: Current Medications Acetaminophen (Acetaminophen 325 Mg Tablet) 650 mg PO Q6H PRN PRN Reason: Pain, Mild (Pain Scale 1-3) Last Admin: 11/12/22 16:38 Dose: 650 mg Acetaminophen/Butalbital/Caffeine (Butalb/Acetamin/Caff 50/325/40 Tablet) 2 tab PO DAILY PRN PRN Reason: headache Albuterol Sulfate (Albuterol Sulfate (0.083%) 2.5 Mg/3 Ml Vial.Neb) 2.5 mg INHALE Q6H PRN PRN Reason: Shortness Of Breath Or Wheezing Last Admin: 11/09/22 10:26 Dose: 2.5 mg Albuterol Sulfate (Albuterol Sulfate 90 Mcg 8 Gm Inhaler) 2 puff INHALE Q4H PRN PRN Reason: Shortness Of Breath Or Wheezing Apixaban (Apixaban 5 Mg Tablet) 5 mg PO BID [facility] Last Admin: 11/13/22 08:08 Dose: 5 mg Bupropion HCl (Bupropion Hcl Xl 150 Mg Tab.Er.24h) 150 mg PO DAILY [facility] Last Admin: 11/13/22 08:08 Dose: 150 mg Famotidine (Famotidine 20 Mg Tablet) 20 mg PO DAILY [facility] Last Admin: 11/13/22 08:08 Dose: 20 mg Ferrous Sulfate (Ferrous Sulfate 324 Mg Tablet.Dr) 324 mg PO DAILY [facility] Last Admin: 11/13/22 08:08 Dose: 324 mg Fluoxetine HCl (Fluoxetine Hcl 20 Mg Capsule) 40 mg PO DAILY [facility] Last Admin: 11/13/22 08:08 Dose: 40 mg Fluticasone Propionate (Fluticasone Propionate 250 Mcg Blst.W.Dev) 1 puff INHALE RBID [facility] Last Admin: 11/13/22 07:30 Dose: 1 puff Folic Acid (Folic Acid 1 Mg Tablet) 1 mg PO DAILY [facility] Last Admin: 11/13/22 08:08 Dose: 1 mg Hydroxychloroquine Sulfate (Hydroxychloroquine Sulfate 200 Mg Tablet) 200 mg PO BID [facility] Last Admin: 11/13/22 08:08 Dose: 200 mg Piperacillin Sod/Tazobactam (Sod 3.375 gm/ Sodium Chloride) 50 mls @ 100 mls/hr IV Q6H [facility] Last Infusion: 11/13/22 15:33 Dose: Infused Vancomycin HCl 750 mg/ Sodium (Chloride) 265 mls @ 265 mls/hr IV Q12H [facility] Last Infusion: 11/13/22 09:28 Dose: Infused Levothyroxine Sodium (Levothyroxine Sodium 175 Mcg Tablet) 175 mcg PO DAILY@0600 [facility] Last Admin: 11/13/22 05:54 Dose: 175 mcg Loratadine (Loratadine 10 Mg Tablet) 10 mg PO DAILY [facility] Last Admin: 11/13/22 08:08 Dose: 10 mg Lorazepam (Lorazepam 1 Mg Tablet) 1 mg PO BID PRN PRN Reason: Anxiety Last Admin: 11/10/22 20:49 Dose: 1 mg Multivitamins/Vitamin C (Multivitamin Tablet) 1 tab PO DAILY [facility] Last Admin: 11/13/22 08:08 Dose: 1 tab Nortriptyline HCl (Nortriptyline Hcl 25 Mg Capsule) 75 mg PO BEDTIME [facility] Last Admin: 11/12/22 20:28 Dose: 75 mg Ondansetron HCl (Ondansetron Hcl 4 Mg/2 Ml Vial) 4 mg IVPUSH Q8H PRN PRN Reason: Nausea and Vomiting Oxycodone HCl (Oxycodone Hcl Immed Release 5 Mg Tablet) 5 mg PO Q4H PRN PRN Reason: Pain, Moderate (Pain Scale 4-6 Last Admin: 11/13/22 14:12 Dose: 5 mg Pharmacy Consult (Consult Rx Vancomycin Dosing) 1 each MISCELLANE DAILY PRN PRN Reason: Consult order Pravastatin Sodium (Pravastatin Sodium 40 Mg Tablet) 40 mg PO BEDTIME [facility] Last Admin: 11/12/22 20:28 Dose: 40 mg Prednisone (Prednisone 20 Mg Tablet) 20 mg PO DAILY [facility] Last Admin: 11/13/22 08:08 Dose: 20 mg Sodium Chloride (0.9 % Sodium Chloride Flush 3 Ml Syringe) 3 ml IVFLUSH QSHIFT [facility] Last Admin: 11/13/22 08:09 Dose: 3 ml Sulfasalazine (Sulfasalazine 500 Mg Tablet) 500 mg PO BID [facility] Last Admin: 11/13/22 08:08 Dose: 500 mg Tiotropium [place] (Tiotropium [place] 18 Mcg Cap.W.Dev) 1 puff [place]DAILY [place] Last Admin: 11/13/22 07:31 Dose: 1 puff Home Medications Medication Instructions Recorded Confirmed Last Taken Type lorazepam 1 mg tablet 1 mg PO BID PRN Anxiety 08/15/20 11/08/22 08/30/20 History pravastatin 40 mg tablet 40 mg PO BEDTIME 08/15/20 11/08/22 08/30/20 History fluoxetine 40 mg capsule (Prozac) 40 mg PO DAILY 08/20/20 11/08/22 08/30/20 History albuterol sulfate 2.5 mg/3 mL 2.5 mg inhalation Q6H PRN 08/31/20 11/08/22 08/30/20 History (0.083 %) solution for nebulization Shortness Of Breath Or Wheezing albuterol sulfate 90 mcg/actuation 2 puff inhalation Q4H PRN 08/31/20 11/08/22 08/30/20 History aerosol inhaler Shortness Of Breath Or Wheezing bupropion HCl 100 mg tablet,12 hr 100 mg PO BID 08/31/20 11/08/22 08/30/20 History sustained-release prednisone 5 mg tablet 5 mg PO DAILY 08/31/20 11/08/22 08/30/20 History nortriptyline 75 mg capsule 75 mg PO BEDTIME 04/18/21 11/08/22 Unknown History apixaban 5 mg tablet 5 mg PO BID 10/21/21 11/08/22 Unknown History fluticasone propionate 220 1 puff inhalation BID 10/21/21 11/08/22 Unknown History mcg/actuation HFA aerosol inhaler (Flovent HFA) levothyroxine 175 mcg tablet 175 mcg PO DAILY 10/21/21 11/08/22 Unknown History loratadine 10 mg tablet 10 mg PO DAILY 10/21/21 11/08/22 Unknown History multivitamin 1 tab PO DAILY 10/21/21 11/08/22 Unknown History nebulizer and compressor (Vios #1 ea 02/15/22 05/24/22 Unknown History Aerosol Delivery System) famotidine 20 mg tablet 1 tab PO DAILY 05/24/22 11/08/22 Unknown History [id number]-kcubgbfcsyagr-ptvmrnye 2 tab PO DAILY PRN headache 11/08/22 11/08/22 Unknown History 50 mg-325 mg-40 mg tablet ferrous sulfate 325 mg (65 mg 1 tab PO DAILY 11/08/22 11/08/22 Unknown History iron) tablet (FeroSul) sulfasalazine 500 mg tablet 1 tab PO BID 11/08/22 11/08/22 Unknown History tiotropium bromide 2.5 2 puff inhalation DAILY 11/08/22 11/08/22 Unknown History mcg/actuation mist for inhalation (Spiriva Respimat) tramadol 50 mg tablet 50 mg PO Q6H PRN pain 11/08/22 11/08/22 Unknown History Physical Exam Vital Signs and Narrative: Vital Signs: Last Vital Signs Temp 99.1 F 11/13/22 06:58 Pulse 86 11/13/22 07:32 Resp 18 11/13/22 06:58 BP 118/68 11/13/22 06:58 Pulse Ox 92 11/13/22 06:58 O2 Del Method 11/13/22 06:58 BMI result Body Mass Index 26.5 Lacks full extension of the elbow. Radial pulse palpable. No streaking, erythema or edema right upper extremity. Point tenderness over the olecranon. Results Labs CBC and Chem 7: 11/13/22 05:30 11/13/22 05:30 Labs: Laboratory Results - last 24 hr 11/12/22 11/13/22 11/13/22 17:51 05:30 05:30 MCV 78.7 L MCH 23.0 L MCHC 29.2 L RDW 14.1 Plt Count 322 MPV 8.9 L Absolute Nucleated RBC 0.000 Nucleated RBC % (auto) 0.0 Anion Gap 10 L Estim Creat Clear Calc 86.6 Estimated GFR > 60 Random Glucose 76 Calcium 8.3 L D Random Vancomycin 14.7 L Imaging Radiologist's Impressions: Impressions Elbow CT 11/12/22 12:41 IMPRESSION: 1. Large peripherally enhancing hypodensity in the posterior aspect of the humerus, elbow and proximal radius/ulna. Findings are suspicious for an abscess, with possible component of infected bursitis. This is located in the posterior soft tissues involving both the superficial and deep soft tissues, and the posterior muscles, including the triceps muscle. This overall extends over distance approximately 17.5 cm craniocaudal. Inferiorly, the collection extends beyond the [id number]. The triceps tendon is not clearly visualized, suboptimally evaluated by CT probably involved by infection, tearing cannot be excluded. This collection is suspected to be communicating with the posterior skin, with small foci of air present. See details above. 2. Question subtle cortical irregularity of the posterior aspect olecranon process. Osteomyelitis cannot be excluded. Further evaluation with MRI as clinically warranted. Assessment and Plan (1) Olecranon bursitis: Status: Acute Plan 47 year old female on immunosupressive medications for SLE/RA/MCTD with acute infection of right olecranon bursa, advanced imaging to assess bone involement is pending. On Vnaco/Zosyn. Since OR is planned for tomorrow by Dr. Sutton, will kindly defer wound care orders in the post surgical setting to surgery. Time Spent With Patient Time: Total time managing care of this patient today ____ minutes.
[2022-11-13 16:28] VITALS: BP 126/63; PULSE 80; RESP 18; TEMP 36.7; O2SAT 93
[2022-11-13 20:00] VITALS: BP 129/72; PULSE 81; RESP 17; TEMP 36.6; O2SAT 94
[2022-11-13 20:33] VITALS: PULSE 74; RESP 18; O2SAT 93
[2022-11-13] MEDS: Pravastatin Sodium 40 MG TABLET PO (20:40)
[2022-11-13] MEDS: Nortriptyline HCl 25 MG CAPSULE 75 MG PO (20:40)
[2022-11-14] VITALS (8 sets, daily range): BP systolic 108–129; BP diastolic 57–67; PULSE 73–95; RESP 17–19; TEMP 36.2–37.2; O2SAT 91–96
[2022-11-14] MEDS: Piperacillin Sodium/Tazobactam 3.375 GM in 0.9 % Sodium Chloride 50 ML IV ×4 (02:44→21:45)
[2022-11-14] MEDS: oxyCODONE HCl Immed Release 5 MG TABLET PO ×2 (05:00→09:32)
[2022-11-14] MEDS: Levothyroxine Sodium 175 MCG TABLET PO (05:00)
[2022-11-14 06:34] LABS: MANUAL DIFF FLAG NO
[2022-11-14 06:39] LABS: Basophils Absolute Auto 0.1 X10*3/uL (0.0-0.2); Basophils Percent Auto 0.7 % (0-2); Eosinophils Absolute Auto 0.3 X10*3/uL (0.0-0.4); Eosinophils Percent Auto 2.2 % (0-4); Hematocrit 32.4 % (37.0-47.0); Hemoglobin 9.4 g/dl (12.0-16.0); Imm Gran Abs Auto 0.31 X10*3/uL (0.00-0.03); Imm Gran Pct Auto 2.6 % (0.0-0.4); Lymphocytes Absolute Auto 2.1 X10*3/uL (1.2-4.9); Lymphocytes Percent Auto 17.6 % (20-40); Mean Corpuscular Hemoglobin 23.4 pg (27.0-33.0); Mean Corpuscular Volume 80.6 fL (80.0-98.0); Monocytes Percent Auto 8.4 % (2-11); Neutrophils Absolute Auto 8.3 x10*3/uL (2.0-8.3); Neutrophils Percent Auto 68.5 % (45-73); Platelet Count 325 X10*3/uL (160-400); Red Blood Count 4.02 X10*6/uL (4.20-5.50); Red Cell Distribution Width 14.2 % (11.0-16.0); White Blood Count 12.1 X10*3/uL (4.8-10.8)
[2022-11-14 07:06] LABS: Vancomycin Trough 15.8 mcg/mL (10.0-20.0)
[2022-11-14 07:24] LABS: Alanine Aminotransferase 17 U/L (0-31); Albumin Level 2.7 g/dL (3.5-5.0); Alkaline Phosphatase 124 U/L (39-117); Anion Gap 11 (12-20); Aspartate Amino Transferase 24 U/L (5-31); Bilirubin Total 0.2 mg/dL (0.0-1.0); Blood Urea Nitrogen 10 mg/dL (9-16); Calcium 8.4 mg/dL (8.4-10.2); Carbon Dioxide 29 mmol/L (22-29); Chloride 106 mmol/L (96-108); Creatinine Clr Calc Pharmacy 84.3; Estimated Glomerular Filt Rate > 60; Glucose Fasting 110 mg/dL (60-99); Potassium 4.1 mmol/L (3.3-5.1); Sodium 142 mmol/L (135-145); Total Protein 4.7 g/dL (6.5-8.0)
[2022-11-14] MEDS: Fluticasone Propionate 250 MCG BLST.W.DEV 1 PUFF INHALE ×2 (07:38→20:20)
[2022-11-14] MEDS: buPROPion HCl XL 150 MG TAB.ER.24H PO (08:00)
[2022-11-14] MEDS: Multivitamin TABLET 1 TAB PO (08:00)
[2022-11-14] MEDS: 0.9 % Sodium Chloride Flush 3 ML SYRINGE IVFLUSH ×3 (08:00→19:38)
[2022-11-14] MEDS: predniSONE 20 MG TABLET PO (08:00)
[2022-11-14] MEDS: Loratadine 10 MG TABLET PO (08:00)
[2022-11-14] MEDS: FLUoxetine HCl 20 MG CAPSULE 40 MG PO (08:00)
[2022-11-14] MEDS: Famotidine 20 MG TABLET PO (08:00)
[2022-11-14] MEDS: Folic Acid 1 MG TABLET PO (08:00)
[2022-11-14] MEDS: Ferrous Sulfate 324 MG TABLET.DR PO (08:00)
[2022-11-14] MEDS: Hydroxychloroquine Sulfate 200 MG TABLET PO ×2 (08:00→21:43)
[2022-11-14] MEDS: sulfaSALAzine 500 MG TABLET PO ×2 (08:00→21:43)
[2022-11-14] MEDS: Nystatin Cream 15 GM TUBE 1 APPL TOPICAL ×2 (09:24→21:51)
--- NOTE | 2022-11-14 11:10 | PM.CNOR ---
History of Present Illness HPI Consult date: 11/08/22 Chief complaint: Infected Wound Narrative: Ms. Rea is a 47 year old with history of COPD, Charcot foot, DM, rheumatoid arthritis, peripheral artery disease on chronic prednisone and CVA on Eliquis who presented to the ED yesterday evening for a nonhealing wound in the right elbow with infected bursitis. In the ED consult note it is reported that the visiting nurse been doing the dressing at home patient. Jensen continuously falls asleep during interview. Unclear what the cause of the wound on her elbow was or how long it has been present. After trial of IV abx patient contiues to haveerythema, pain and slight drainage. CT scan was ordered and revealed an abscess right elbow. Review of Systems Review of Systems: Yes all other systems are reviewed and are negative PMFSH Past Medical History Medical History C. difficile colitis Cellulitis Cellulitis Cellulitis of right leg COPD (chronic obstructive pulmonary disease) CVA (cerebral vascular accident) Fibromyalgia Hypothyroid Immunosuppression due to chronic steroid use Lupus Mixed connective tissue disease PAD (peripheral artery disease) Pneumonia due to COVID-19 virus Proteinuria Redness and swelling of lower leg Respiratory failure with hypoxia Rheumatoid arthritis Secondary bacterial pneumonia Varicose veins of right lower extremity with inflammation Family History Family History Father No problems noted. Mother Lung cancer Surgical History Surgical History History of breast lump/mass excision History of bunionectomy History of cholecystectomy History of excision of mass History of partial hysterectomy Social History Social History Household Members: Family Household Members Other:: 3 Housing: Apartment Do you presently have visiting nurse or other home services: Yes Alcohol intake: never Patient Tobacco Use Status: Current everyday Tobacco user Tobacco use type: Cigarette Cigarette Packs Per Day: 1 Cigarettes Per Day: 20.0 Years Smoked: 30 Second Hand Smoke Exposure: No Substance Use Type: Marijuana Advance Directives Date on File: 11/26/21 service: No Current occupational status: unemployed and disabled Meds Allergies Allergy/AdvReac Type Severity Reaction Status Date / Time clarithromycin Allergy Intermediate FACIAL Verified 12/22/22 01:19 [CLARITHROMYCIN] SWELLING/REDNESS, facial rash, facial rash, facial rash, facial rash Active Medications: Current Medications Acetaminophen (Acetaminophen 325 Mg Tablet) 650 mg PO Q6H PRN PRN Reason: Pain, Mild (Pain Scale 1-3) Last Admin: 11/12/22 16:38 Dose: 650 mg Acetaminophen/Butalbital/Caffeine (Butalb/Acetamin/Caff 50/325/40 Tablet) 2 tab PO DAILY PRN PRN Reason: headache Albuterol Sulfate (Albuterol Sulfate (0.083%) 2.5 Mg/3 Ml Vial.Neb) 2.5 mg INHALE Q6H PRN PRN Reason: Shortness Of Breath Or Wheezing Last Admin: 11/09/22 10:26 Dose: 2.5 mg Albuterol Sulfate (Albuterol Sulfate 90 Mcg 8 Gm Inhaler) 2 puff INHALE Q4H PRN PRN Reason: Shortness Of Breath Or Wheezing Apixaban (Apixaban 5 Mg Tablet) 5 mg PO BID [facility] Last Admin: 11/13/22 08:08 Dose: 5 mg Bupropion HCl (Bupropion Hcl Xl 150 Mg Tab.Er.24h) 150 mg PO DAILY [facility] Last Admin: 11/14/22 08:00 Dose: 150 mg Famotidine (Famotidine 20 Mg Tablet) 20 mg PO DAILY [facility] Last Admin: 11/14/22 08:00 Dose: 20 mg Ferrous Sulfate (Ferrous Sulfate 324 Mg Tablet.Dr) 324 mg PO DAILY [facility] Last Admin: 11/14/22 08:00 Dose: 324 mg Fluoxetine HCl (Fluoxetine Hcl 20 Mg Capsule) 40 mg PO DAILY [facility] Last Admin: 11/14/22 08:00 Dose: 40 mg Fluticasone Propionate (Fluticasone Propionate 250 Mcg Blst.W.Dev) 1 puff INHALE RBID [facility] Last Admin: 11/14/22 07:38 Dose: 1 puff Folic Acid (Folic Acid 1 Mg Tablet) 1 mg PO DAILY [facility] Last Admin: 11/14/22 08:00 Dose: 1 mg Hydroxychloroquine Sulfate (Hydroxychloroquine Sulfate 200 Mg Tablet) 200 mg PO BID [facility] Last Admin: 11/14/22 08:00 Dose: 200 mg Piperacillin Sod/Tazobactam (Sod 3.375 gm/ Sodium Chloride) 50 mls @ 100 mls/hr IV Q6H [facility] Last Infusion: 11/14/22 10:04 Dose: Infused Vancomycin HCl 750 mg/ Sodium (Chloride) 265 mls @ 265 mls/hr IV Q12H [facility] Last Infusion: 11/14/22 09:04 Dose: Infused Levothyroxine Sodium (Levothyroxine Sodium 175 Mcg Tablet) 175 mcg PO DAILY@0600 [facility] Last Admin: 11/14/22 05:00 Dose: 175 mcg Loratadine (Loratadine 10 Mg Tablet) 10 mg PO DAILY [facility] Last Admin: 11/14/22 08:00 Dose: 10 mg Lorazepam (Lorazepam 1 Mg Tablet) 1 mg PO BID PRN PRN Reason: Anxiety Last Admin: 11/10/22 20:49 Dose: 1 mg Multivitamins/Vitamin C (Multivitamin Tablet) 1 tab PO DAILY [facility] Last Admin: 11/14/22 08:00 Dose: 1 tab Nortriptyline HCl (Nortriptyline Hcl 25 Mg Capsule) 75 mg PO BEDTIME [facility] Last Admin: 11/13/22 20:40 Dose: 75 mg Nystatin (Nystatin Cream 15 Gm Tube) 1 appl TOPICAL BID [facility]; Protocol Last Admin: 11/14/22 09:24 Dose: 1 appl Ondansetron HCl (Ondansetron Hcl 4 Mg/2 Ml Vial) 4 mg IVPUSH Q8H PRN PRN Reason: Nausea and Vomiting Oxycodone HCl (Oxycodone Hcl Immed Release 5 Mg Tablet) 10 mg PO Q4H PRN PRN Reason: Pain, Moderate (Pain Scale 4-6 Pharmacy Consult (Consult Rx Vancomycin Dosing) 1 each MISCELLANE DAILY PRN PRN Reason: Consult order Pravastatin Sodium (Pravastatin Sodium 40 Mg Tablet) 40 mg PO BEDTIME [facility] Last Admin: 11/13/22 20:40 Dose: 40 mg Prednisone (Prednisone 20 Mg Tablet) 20 mg PO DAILY [facility] Last Admin: 11/14/22 08:00 Dose: 20 mg Sodium Chloride (0.9 % Sodium Chloride Flush 3 Ml Syringe) 3 ml IVFLUSH QSHIFT [facility] Last Admin: 11/14/22 08:00 Dose: 3 ml Sulfasalazine (Sulfasalazine 500 Mg Tablet) 500 mg PO BID [facility] Last Admin: 11/14/22 08:00 Dose: 500 mg Tiotropium [place] (Tiotropium [place] 18 Mcg Cap.W.Dev) 1 puff [place]HALE RDAILY [place] Last Admin: 11/14/22 07:38 Dose: 1 puff Home Medications Medication Instructions Recorded Confirmed Last Taken Type lorazepam 1 mg tablet 1 mg PO BID PRN Anxiety 08/15/20 11/08/22 08/30/20 History pravastatin 40 mg tablet 40 mg PO BEDTIME 08/15/20 11/08/22 08/30/20 History fluoxetine 40 mg capsule (Prozac) 40 mg PO DAILY 08/20/20 11/08/22 08/30/20 History albuterol sulfate 2.5 mg/3 mL 2.5 mg inhalation Q6H PRN 08/31/20 11/08/22 08/30/20 History (0.083 %) solution for nebulization Shortness Of Breath Or Wheezing albuterol sulfate 90 mcg/actuation 2 puff inhalation Q4H PRN 08/31/20 11/08/22 08/30/20 History aerosol inhaler Shortness Of Breath Or Wheezing bupropion HCl 100 mg tablet,12 hr 100 mg PO BID 08/31/20 11/08/22 08/30/20 History sustained-release prednisone 5 mg tablet 5 mg PO DAILY 08/31/20 11/08/22 08/30/20 History nortriptyline 75 mg capsule 75 mg PO BEDTIME 04/18/21 11/08/22 Unknown History apixaban 5 mg tablet 5 mg PO BID 10/21/21 11/08/22 Unknown History fluticasone propionate 220 1 puff inhalation BID 10/21/21 11/08/22 Unknown History mcg/actuation HFA aerosol inhaler (Flovent HFA) levothyroxine 175 mcg tablet 175 mcg PO DAILY 10/21/21 11/08/22 Unknown History loratadine 10 mg tablet 10 mg PO DAILY 10/21/21 11/08/22 Unknown History multivitamin 1 tab PO DAILY 10/21/21 11/08/22 Unknown History nebulizer and compressor (Vios #1 ea 02/15/22 05/24/22 Unknown History Aerosol Delivery System) famotidine 20 mg tablet 1 tab PO DAILY 05/24/22 11/08/22 Unknown History wqtfesitci-lrczywkgeebyv-suylqzsm 2 tab PO DAILY PRN headache 11/08/22 11/08/22 Unknown History 50 mg-325 mg-40 mg tablet ferrous sulfate 325 mg (65 mg 1 tab PO DAILY 11/08/22 11/08/22 Unknown History iron) tablet (FeroSul) sulfasalazine 500 mg tablet 1 tab PO BID 11/08/22 11/08/22 Unknown History tiotropium bromide 2.5 2 puff inhalation DAILY 11/08/22 11/08/22 Unknown History mcg/actuation mist for inhalation (Spiriva Respimat) tramadol 50 mg tablet 50 mg PO Q6H PRN pain 11/08/22 11/08/22 Unknown History Physical Exam Vital Signs: Vital Signs: Last Vital Signs Temp 97.1 F 11/14/22 06:49 Pulse 82 11/14/22 09:52 Resp 18 11/14/22 07:40 BP 108/58 L 11/14/22 06:49 Pulse Ox 91 L 11/14/22 06:49 O2 Del Method 11/14/22 06:49 BMI result Body Mass Index 26.5 Const: General: cooperative, healthy appearing and no acute distress Resp: Effort & Inspection: normal respiratory effort and able to speak in complete sentences Cardio: Rate: regular rate Peripheral pulses: Peripheral pulses 2+ throughout GI: Palpation (GI): Soft to palpation Skin: Lesions: no lesions Rashes: no rashes Extrem: Other: Left elbow half dollar erythema and slight drainage proximal to the olecranon . Able to fully flex extend with slight pain. Sensation is reportedly intact. Radial pulse intact. Results Labs Result Diagrams: 11/14/22 05:34 11/14/22 05:34 Labs: Abnormal lab results 11/14/22 11/14/22 Range/Units 05:34 05:34 WBC 12.1 H (4.8-10.8) X10*3/uL RBC 4.02 L (4.20-5.50) X10*6/uL Hgb 9.4 L (12.0-16.0) g/dl Hct 32.4 L (37.0-47.0) % MCH 23.4 L (27.0-33.0) pg MCHC 29.0 L (31.0-35.0) g/dl MPV 9.0 L (9.4-12.3) fL Immature Gran % (Auto) 2.6 H (0.0-0.4) % Lymph % (Auto) 17.6 L (20-40) % Abs Immat Gran (auto) 0.31 H (0.00-0.03) X10*3/uL Anion Gap 11 L (12-20) Fasting Glucose 110 H (60-99) mg/dL Alkaline Phosphatase 124 H (39-117) U/L Total Protein 4.7 L (6.5-8.0) g/dL Albumin 2.7 L (3.5-5.0) g/dL H & H 11/08/22 11/09/22 11/10/22 Range/Units 03:36 05:55 05:52 Hgb 11.1 L D 9.7 L 9.5 L (12.0-16.0) g/dl Hct 36.6 L D 31.4 L 32.9 L (37.0-47.0) % 11/12/22 11/13/22 11/14/22 Range/Units 05:52 05:30 05:34 Hgb 10.4 L 9.5 L 9.4 L (12.0-16.0) g/dl Hct 35.5 L 32.5 L 32.4 L (37.0-47.0) % All other labs normal. Assessment and Plan (1) Open wound of right elbow: Status: Acute MRI obtained of the right elbow: There is an irregular incomplete full-thickness defect in the central portion of the triceps tendon located 2 cm proximal to the insertion which could reflect a tear or erosive change related to the suspected inflammatory process.. Possible additional irregular subtle partial thickness or irregular tearing at the insertion ? There is also a complex abnormal signal throughout the distal triceps muscle deep to the triceps tendon as well as superficial to the triceps tendon in the deep subcutaneous soft tissues as well as olecranon bursa. Similar findings are present on the prior CT examination. The degree of suspected fluid may be less than that noted previously. ? The overall abnormal process extends at least 13 cm in length craniocaudal. The full proximal extent of the process is not determined as it appears to extend outside of the [id number] of this examination proximally. ? The findings could be explained by an infectious/inflammatory process/myositis with abscess in the triceps muscle and resultant erosive change/tear in the triceps tendon along with cellulitis/abscess extending into the subcutaneous soft tissues and olecranon bursa. The degree of soft tissue abnormality/abscess appears less than that noted on the prior CT done 11/12/2022. I discussed the case with Dr. Sutton and explained the extent of the injury to the patient and options available which include surgical intervention. I explained the procedure in detail along with the length of recovery and rehab course. I explained the risk, benefits and alternatives. Risk including, but not limited to infection, blood clots, bleeding, non union or malunion and nerve/tissue damage to surrounding areas. I answered all their questions and with their understanding they have consented to move forward with irrigation and debridement of the right elbow. The patient will be NPO after midnight. (2) Cellulitis: Status: Acute (3) Abscess: Status: Acute Time Spent With Patient Time: Total time managing care of this patient today ____ minutes. Procedures Date of Service Date of Service: 11/13/22
[2022-11-14] MEDS: oxyCODONE HCl Immed Release 5 MG TABLET 10 MG PO ×2 (13:37→19:36)
--- NOTE | 2022-11-14 14:12 | MHC.CM.PN ---
per rounds pt will have surgery tomorrow on her r elbow will slos need a picc wilma massey following
--- NOTE | 2022-11-14 14:49 | HO.PM.IMPN ---
Subjective Subjective Date of Service: 11/14/22 Interval History: States elbow feels better than yesterday. Pain with minimal range most Review of Systems Denies chest pain Denies shortness of breath Denies nausea vomiting diarrhea Denies fever chills Physical Exam Vital Signs: Vital Signs: Last Vital Signs Temp 97.1 F 11/14/22 06:49 Pulse 82 11/14/22 09:52 Resp 18 11/14/22 07:40 BP 108/58 L 11/14/22 06:49 Pulse Ox 91 L 11/14/22 06:49 O2 Del Method 11/14/22 06:49 BMI result Body Mass Index 26.5 Const: Other: Awake alert no acute distress Resp: Other: Clear to auscultation bilaterally no rales rhonchi wheezes Cardio: Other: No S4; positive S1-S2; no S3 murmurs rubs or gallops GI: Other: Soft nontender nondistended normoactive bowel sounds Extrem: Other: Right elbow edematous tense dressing intact Objective Data Active Medications Acetaminophen (Acetaminophen 325 Mg Tablet) 650 mg PO Q6H PRN PRN Reason: Pain, Mild (Pain Scale 1-3) Last Admin: 11/12/22 16:38 Dose: 650 mg Documented By: YANDEL Acetaminophen/Butalbital/Caffeine (Butalb/Acetamin/Caff 50/325/40 Tablet) 2 tab PO DAILY PRN PRN Reason: headache Albuterol Sulfate (Albuterol Sulfate (0.083%) 2.5 Mg/3 Ml Vial.Neb) 2.5 mg INHALE Q6H PRN PRN Reason: Shortness Of Breath Or Wheezing Last Admin: 11/09/22 10:26 Dose: 2.5 mg Documented By: KULWINDER Albuterol Sulfate (Albuterol Sulfate 90 Mcg 8 Gm Inhaler) 2 puff INHALE Q4H PRN PRN Reason: Shortness Of Breath Or Wheezing Apixaban (Apixaban 5 Mg Tablet) 5 mg PO BID [facility] Last Admin: 11/13/22 08:08 Dose: 5 mg Documented By: SHELBY Bupropion HCl (Bupropion Hcl Xl 150 Mg Tab.Er.24h) 150 mg PO DAILY [facility] Last Admin: 11/14/22 08:00 Dose: 150 mg Documented By: SHELBY Famotidine (Famotidine 20 Mg Tablet) 20 mg PO DAILY [facility] Last Admin: 11/14/22 08:00 Dose: 20 mg Documented By: SHELBY Ferrous Sulfate (Ferrous Sulfate 324 Mg Tablet.Dr) 324 mg PO DAILY [facility] Last Admin: 11/14/22 08:00 Dose: 324 mg Documented By: SHELBY Fluoxetine HCl (Fluoxetine Hcl 20 Mg Capsule) 40 mg PO DAILY [facility] Last Admin: 11/14/22 08:00 Dose: 40 mg Documented By: SHELBY Fluticasone Propionate (Fluticasone Propionate 250 Mcg Blst.W.Dev) 1 puff INHALE RBID [facility] Last Admin: 11/14/22 07:38 Dose: 1 puff Documented By: HAYLEY Folic Acid (Folic Acid 1 Mg Tablet) 1 mg PO DAILY [facility] Last Admin: 11/14/22 08:00 Dose: 1 mg Documented By: SHELBY Hydroxychloroquine Sulfate (Hydroxychloroquine Sulfate 200 Mg Tablet) 200 mg PO BID [facility] Last Admin: 11/14/22 08:00 Dose: 200 mg Documented By: SHELBY Piperacillin Sod/Tazobactam (Sod 3.375 gm/ Sodium Chloride) 50 mls @ 100 mls/hr IV Q6H [facility] Last Infusion: 11/14/22 14:21 Dose: 0 mls/hr Documented By: SHELBY Vancomycin HCl 750 mg/ Sodium (Chloride) 265 mls @ 265 mls/hr IV Q12H [facility] Last Infusion: 11/14/22 09:04 Dose: 0 mls/hr Documented By: SHELBY Levothyroxine Sodium (Levothyroxine Sodium 175 Mcg Tablet) 175 mcg PO DAILY@0600 [facility] Last Admin: 11/14/22 05:00 Dose: 175 mcg Documented By: SOFI Loratadine (Loratadine 10 Mg Tablet) 10 mg PO DAILY [facility] Last Admin: 11/14/22 08:00 Dose: 10 mg Documented By: SHELBY Lorazepam (Lorazepam 1 Mg Tablet) 1 mg PO BID PRN PRN Reason: Anxiety Last Admin: 11/10/22 20:49 Dose: 1 mg Documented By: BARBARA Multivitamins/Vitamin C (Multivitamin Tablet) 1 tab PO DAILY [facility] Last Admin: 11/14/22 08:00 Dose: 1 tab Documented By: SHELBY Nortriptyline HCl (Nortriptyline Hcl 25 Mg Capsule) 75 mg PO BEDTIME [facility] Last Admin: 11/13/22 20:40 Dose: 75 mg Documented By: SOFI Nystatin (Nystatin Cream 15 Gm Tube) 1 appl TOPICAL BID [facility]; Protocol Last Admin: 11/14/22 09:24 Dose: 1 appl Documented By: SHELBY Ondansetron HCl (Ondansetron Hcl 4 Mg/2 Ml Vial) 4 mg IVPUSH Q8H PRN PRN Reason: Nausea and Vomiting Oxycodone HCl (Oxycodone Hcl Immed Release 5 Mg Tablet) 10 mg PO Q4H PRN PRN Reason: Pain, Moderate (Pain Scale 4-6 Last Admin: 11/14/22 13:37 Dose: 10 mg Documented By: SHELBY Pharmacy Consult (Consult Rx Vancomycin Dosing) 1 each MISCELLANE DAILY PRN PRN Reason: Consult order Pravastatin Sodium (Pravastatin Sodium 40 Mg Tablet) 40 mg PO BEDTIME [facility] Last Admin: 11/13/22 20:40 Dose: 40 mg Documented By: SOFI Prednisone (Prednisone 20 Mg Tablet) 20 mg PO DAILY [facility] Last Admin: 11/14/22 08:00 Dose: 20 mg Documented By: SHELBY Sodium Chloride (0.9 % Sodium Chloride Flush 3 Ml Syringe) 3 ml IVFLUSH QSHIFT [facility] Last Admin: 11/14/22 08:00 Dose: 3 ml Documented By: SHELBY Sulfasalazine (Sulfasalazine 500 Mg Tablet) 500 mg PO BID [facility] Last Admin: 11/14/22 08:00 Dose: 500 mg Documented By: SHELBY Tiotropium [place] (Tiotropium [place] 18 Mcg Cap.W.Dev) 1 puff INHALE RDAILY [facility] Last Admin: 11/14/22 07:38 Dose: 1 puff Documented By: HAYLEY Labs CBC & Chem 7: 11/14/22 05:34 11/14/22 05:34 Labs: Laboratory Results - last 24 hr 11/14/22 11/14/22 11/14/22 05:34 05:34 05:34 MCV 80.6 MCH 23.4 L MCHC 29.0 L RDW 14.2 Plt Count 325 MPV 9.0 L Immature Gran % (Auto) 2.6 H Neut % (Auto) 68.5 Lymph % (Auto) 17.6 L [place] % (Auto) 8.4 Eos % (Auto) 2.2 Baso % (Auto) 0.7 Lymph # (Auto) 2.1 [place] # (Auto) 1.0 Eos # (Auto) 0.3 Baso # (Auto) 0.1 Abs Immat Gran (auto) 0.31 H Absolute Neuts (auto) 8.3 Absolute Nucleated RBC 0.000 Nucleated RBC % (auto) 0.0 Anion Gap 11 L Estim Creat Clear Calc 84.3 Estimated GFR > 60 Fasting Glucose 110 H Calcium 8.4 Total Bilirubin 0.2 AST 24 D ALT 17 Alkaline Phosphatase 124 H Total Protein 4.7 L Albumin 2.7 L Vancomycin Trough 15.8 Assessment and Plan (1) Cellulitis: Status: Acute (2) Abscess: Status: Acute Plan 47yo F with COPD, PAD, SLE/RA/MCTD on chronic prednisone + hydroxychloroquine presenting after falling, admitted for infected wound over right olecranon; initially drained in ER. CT available done yesterday shows increased fluid collection. 1.Cellulitis/wound infection -vanco/zosyn(7) given -orthopedics reconsulted- to OR in a.m. for I&D - wound care consult noted 2.SLE/RA/MCTD -prednisone/hydroxychloroquine/sulfasalazine. -prednisone increased for flare; will need to be tapered slowly 3.COPD -no acute issues -continue prn albuterol/ tiotropium 4.PAD -apixban/statin Full code Nitzaqulorraine Requires ongoing hospitalization for IV antibiotics to treat left infected elbow bursitis Time Spent With Patient Time: Total time managing care of this patient today ____ minutes. Quality Stroke Does the patient have a stroke diagnosis?: No VTE Prior VTE?: No VTE Risk Level:: Medical - moderate - high VTE Device Contraindication: Treatment Not Indicated VTE Drug Contraindication: N/A - Med Ordered
[2022-11-14] MEDS: Pravastatin Sodium 40 MG TABLET PO (21:43)
[2022-11-14] MEDS: Nortriptyline HCl 25 MG CAPSULE 75 MG PO (21:43)
[2022-11-15] VITALS (14 sets, daily range): BP systolic 97–136; BP diastolic 50–77; PULSE 69–91; RESP 16–20; TEMP 36.4–37.5; O2SAT 92–99
[2022-11-15] MEDS: oxyCODONE HCl Immed Release 5 MG TABLET 10 MG PO ×3 (00:04→18:07)
[2022-11-15] MEDS: Piperacillin Sodium/Tazobactam 3.375 GM in 0.9 % Sodium Chloride 50 ML IV ×4 (03:00→20:03)
[2022-11-15 06:21] LABS: MANUAL DIFF FLAG NO
[2022-11-15 06:43] LABS: Basophils Absolute Auto 0.1 X10*3/uL (0.0-0.2); Basophils Percent Auto 0.8 % (0-2); Eosinophils Absolute Auto 0.3 X10*3/uL (0.0-0.4); Eosinophils Percent Auto 2.5 % (0-4); Hematocrit 31.9 % (37.0-47.0); Hemoglobin 9.3 g/dl (12.0-16.0); Imm Gran Abs Auto 0.35 X10*3/uL (0.00-0.03); Imm Gran Pct Auto 2.7 % (0.0-0.4); Lymphocytes Absolute Auto 2.2 X10*3/uL (1.2-4.9); Lymphocytes Percent Auto 17.1 % (20-40); Mean Corpuscular HGB Conc 29.2 g/dl (31.0-35.0); Mean Corpuscular Hemoglobin 23.5 pg (27.0-33.0); Mean Corpuscular Volume 80.8 fL (80.0-98.0); Mean Platelet Volume 8.9 fL (9.4-12.3); Monocytes Absolute Auto 1.1 X10*3/uL (0.1-1.2); Monocytes Percent Auto 8.3 % (2-11); Neutrophils Percent Auto 68.6 % (45-73); Platelet Count 371 X10*3/uL (160-400); Red Blood Count 3.95 X10*6/uL (4.20-5.50); Red Cell Distribution Width 14.4 % (11.0-16.0); White Blood Count 13.1 X10*3/uL (4.8-10.8)
[2022-11-15 07:08] LABS: Alanine Aminotransferase 18 U/L (0-31); Albumin Level 2.7 g/dL (3.5-5.0); Alkaline Phosphatase 122 U/L (39-117); Anion Gap 10 (12-20); Aspartate Amino Transferase 19 U/L (5-31); Bilirubin Total 0.3 mg/dL (0.0-1.0); Blood Urea Nitrogen 10 mg/dL (9-16); Calcium 8.4 mg/dL (8.4-10.2); Carbon Dioxide 31 mmol/L (22-29); Chloride 106 mmol/L (96-108); Creatinine Clr Calc Pharmacy 82.1; Estimated Glomerular Filt Rate > 60; Glucose Fasting 81 mg/dL (60-99); Sodium 143 mmol/L (135-145); Total Protein 4.7 g/dL (6.5-8.0)
[2022-11-15] MEDS: FLUoxetine HCl 20 MG CAPSULE 40 MG PO (07:38)
[2022-11-15] MEDS: Hydroxychloroquine Sulfate 200 MG TABLET PO ×2 (07:39→19:12)
[2022-11-15] MEDS: Famotidine 20 MG TABLET PO (07:39)
[2022-11-15] MEDS: buPROPion HCl XL 150 MG TAB.ER.24H PO (07:39)
[2022-11-15] MEDS: 0.9 % Sodium Chloride Flush 3 ML SYRINGE IVFLUSH ×3 (07:39→19:15)
[2022-11-15] MEDS: Loratadine 10 MG TABLET PO (07:39)
[2022-11-15] MEDS: Nystatin Cream 15 GM TUBE 1 APPL TOPICAL (07:46)
[2022-11-15] MEDS: Fluticasone Propionate 250 MCG BLST.W.DEV 1 PUFF INHALE ×2 (08:26→19:58)
--- NOTE | 2022-11-15 08:28 | MHC.CM.PN ---
MIKEY FAIR FOLLOWING FOR A BED OFFER. UPDATES SENT VIA [employer]
[2022-11-15] MEDS: predniSONE 20 MG TABLET PO (08:52)
[2022-11-15] MEDS: sulfaSALAzine 500 MG TABLET PO ×2 (08:52→19:13)
--- NOTE | 2022-11-15 09:53 | P.CONAN_ITS ---
HPI - Anesthesia Eval Consult details Narrative: 47 yo female patient for I&D of Right elbow PMFSH Active Problems Active Problems: All Active Problems (Updated 11/14/22 @ 11:13 by Renita Johnson PA-C) Abscess (Acute) Olecranon bursitis (Acute) Hypokalemia (Acute) Falling (Acute) Open wound of right elbow (Acute) Cellulitis (Acute) Rheumatoid arthritis (Acute) Charcot's joint of foot (Acute) COPD (chronic obstructive pulmonary disease) (Acute) Respiratory failure with hypoxia (Acute) Pneumonia due to COVID-19 virus (Acute) Severe anxiety with panic (Acute) Acute respiratory distress syndrome (ARDS) due to COVID-19 virus (Acute) Acute hypoxemic respiratory failure due to COVID-19 (Acute)- Intubated for about 10days 11/2021 Acute exacerbation of chronic obstructive airways disease (Acute) Ulcer of lower extremity (Acute) Past Medical History Medical History C. difficile colitis Cellulitis Cellulitis Cellulitis of right leg COPD (chronic obstructive pulmonary disease) CVA (cerebral vascular accident) Fibromyalgia Hypothyroid Immunosuppression due to chronic steroid use Lupus Mixed connective tissue disease PAD (peripheral artery disease) Pneumonia due to COVID-19 virus Proteinuria Redness and swelling of lower leg Respiratory failure with hypoxia Rheumatoid arthritis Secondary bacterial pneumonia Varicose veins of right lower extremity with inflammation Family History Family History Father No problems noted. Mother Lung cancer Family history of problems with anesthesia: No Surgical History Surgical History History of breast lump/mass excision History of bunionectomy History of cholecystectomy History of excision of mass History of partial hysterectomy History of Problems with Anesthesia: No Social History Social History Household Members: Family Household Members Other:: 3 Housing: Apartment Do you presently have visiting nurse or other home services: Yes Alcohol intake: never Patient Tobacco Use Status: Current everyday Tobacco user Tobacco use type: Cigarette Cigarette Packs Per Day: 0.5 Cigarettes Per Day: 10.0 Years Smoked: 30 Second Hand Smoke Exposure: No Substance Use Type: Marijuana Advance Directives Date on File: 11/26/21 service: No Current occupational status: unemployed and disabled Meds Allergies Allergy/AdvReac Type Severity Reaction Status Date / Time clarithromycin Allergy Intermediate FACIAL Verified 11/08/22 01:19 [CLARITHROMYCIN] SWELLING/REDNESS, facial rash, facial rash, facial rash, facial rash Active Medications: Current Medications Acetaminophen (Acetaminophen 325 Mg Tablet) 650 mg PO Q6H PRN PRN Reason: Pain, Mild (Pain Scale 1-3) Last Admin: 11/12/22 16:38 Dose: 650 mg Acetaminophen/Butalbital/Caffeine (Butalb/Acetamin/Caff 50/325/40 Tablet) 2 tab PO DAILY PRN PRN Reason: headache Albuterol Sulfate (Albuterol Sulfate 90 Mcg 8 Gm Inhaler) 2 puff INHALE Q4H PRN PRN Reason: Shortness Of Breath Or Wheezing Apixaban (Apixaban 5 Mg Tablet) 5 mg PO BID [facility] Last Admin: 11/13/22 08:08 Dose: 5 mg Bupropion HCl (Bupropion Hcl Xl 150 Mg Tab.Er.24h) 150 mg PO DAILY [facility] Last Admin: 11/15/22 07:39 Dose: 150 mg Famotidine (Famotidine 20 Mg Tablet) 20 mg PO DAILY [facility] Last Admin: 11/15/22 07:39 Dose: 20 mg Ferrous Sulfate (Ferrous Sulfate 324 Mg Tablet.Dr) 324 mg PO DAILY [facility] Last Admin: 11/15/22 07:46 Dose: Not Given Fluoxetine HCl (Fluoxetine Hcl 20 Mg Capsule) 40 mg PO DAILY [facility] Last Admin: 11/15/22 07:38 Dose: 40 mg Fluticasone Propionate (Fluticasone Propionate 250 Mcg Blst.W.Dev) 1 puff INHALE RBID [facility] Last Admin: 11/15/22 08:26 Dose: 1 puff Folic Acid (Folic Acid 1 Mg Tablet) 1 mg PO DAILY [facility] Last Admin: 11/15/22 07:46 Dose: Not Given Hydroxychloroquine Sulfate (Hydroxychloroquine Sulfate 200 Mg Tablet) 200 mg PO BID [facility] Last Admin: 11/15/22 07:39 Dose: 200 mg Piperacillin Sod/Tazobactam (Sod 3.375 gm/ Sodium Chloride) 50 mls @ 100 mls/hr IV Q6H [facility] Last Infusion: 11/15/22 09:35 Dose: Infused Vancomycin HCl 750 mg/ Sodium (Chloride) 265 mls @ 265 mls/hr IV Q12H [facility] Last Infusion: 11/15/22 08:57 Dose: Infused Levothyroxine Sodium (Levothyroxine Sodium 175 Mcg Tablet) 175 mcg PO DAILY@0600 [facility] Last Admin: 11/15/22 05:52 Dose: Not Given Loratadine (Loratadine 10 Mg Tablet) 10 mg PO DAILY [facility] Last Admin: 11/15/22 07:39 Dose: 10 mg Lorazepam (Lorazepam 1 Mg Tablet) 1 mg PO BID PRN PRN Reason: Anxiety Last Admin: 11/10/22 20:49 Dose: 1 mg Multivitamins/Vitamin C (Multivitamin Tablet) 1 tab PO DAILY [facility] Last Admin: 11/15/22 07:46 Dose: Not Given Nortriptyline HCl (Nortriptyline Hcl 25 Mg Capsule) 75 mg PO BEDTIME [facility] Last Admin: 11/14/22 21:43 Dose: 75 mg Nystatin (Nystatin Cream 15 Gm Tube) 1 appl TOPICAL BID [facility]; Protocol Last Admin: 11/15/22 07:46 Dose: 1 appl Ondansetron HCl (Ondansetron Hcl 4 Mg/2 Ml Vial) 4 mg IVPUSH Q8H PRN PRN Reason: Nausea and Vomiting Oxycodone HCl (Oxycodone Hcl Immed Release 5 Mg Tablet) 10 mg PO Q4H PRN PRN Reason: Pain, Moderate (Pain Scale 4-6 Last Admin: 11/15/22 09:34 Dose: 10 mg Pharmacy Consult (Consult Rx Vancomycin Dosing) 1 each MISCELLANE DAILY PRN PRN Reason: Consult order Pravastatin Sodium (Pravastatin Sodium 40 Mg Tablet) 40 mg PO BEDTIME [facility] Last Admin: 11/14/22 21:43 Dose: 40 mg Prednisone (Prednisone 20 Mg Tablet) 20 mg PO DAILY [facility] Last Admin: 11/15/22 08:52 Dose: 20 mg Sodium Chloride (0.9 % Sodium Chloride Flush 3 Ml Syringe) 3 ml IVFLUSH QSHIFT [facility] Last Admin: 11/15/22 07:39 Dose: 3 ml Sulfasalazine (Sulfasalazine 500 Mg Tablet) 500 mg PO BID [facility] Last Admin: 11/15/22 08:52 Dose: 500 mg Tiotropium [place] (Tiotropium [place] 18 Mcg Cap.W.Dev) 1 puff INHALE RDAILY [facility] Last Admin: 11/15/22 08:26 Dose: 1 puff Home Medications Medication Instructions Recorded Confirmed Last Taken Type lorazepam 1 mg tablet 1 mg PO BID PRN Anxiety 08/15/20 11/08/22 08/30/20 History pravastatin 40 mg tablet 40 mg PO BEDTIME 08/15/20 11/08/22 08/30/20 History fluoxetine 40 mg capsule (Prozac) 40 mg PO DAILY 08/20/20 11/08/22 08/30/20 History albuterol sulfate 2.5 mg/3 mL 2.5 mg inhalation Q6H PRN 08/31/20 11/08/22 08/30/20 History (0.083 %) solution for nebulization Shortness Of Breath Or Wheezing albuterol sulfate 90 mcg/actuation 2 puff inhalation Q4H PRN 08/31/20 11/08/22 08/30/20 History aerosol inhaler Shortness Of Breath Or Wheezing bupropion HCl 100 mg tablet,12 hr 100 mg PO BID 08/31/20 11/08/22 08/30/20 History sustained-release prednisone 5 mg tablet 5 mg PO DAILY 08/31/20 11/08/22 08/30/20 History nortriptyline 75 mg capsule 75 mg PO BEDTIME 04/18/21 11/08/22 Unknown History apixaban 5 mg tablet 5 mg PO BID 10/21/21 11/08/22 11/13/22 History fluticasone propionate 220 1 puff inhalation BID 10/21/21 11/08/22 Unknown History mcg/actuation HFA aerosol inhaler (Flovent HFA) levothyroxine 175 mcg tablet 175 mcg PO DAILY 10/21/21 11/08/22 Unknown History loratadine 10 mg tablet 10 mg PO DAILY 10/21/21 11/08/22 Unknown History multivitamin 1 tab PO DAILY 10/21/21 11/08/22 Unknown History nebulizer and compressor (Vios #1 ea 02/15/22 05/24/22 Unknown History Aerosol Delivery System) famotidine 20 mg tablet 1 tab PO DAILY 05/24/22 11/08/22 Unknown History rmdwzirieh-hzlufinjhxync-jakwewjw 2 tab PO DAILY PRN headache 11/08/22 11/08/22 Unknown History 50 mg-325 mg-40 mg tablet ferrous sulfate 325 mg (65 mg 1 tab PO DAILY 11/08/22 11/08/22 Unknown History iron) tablet (FeroSul) sulfasalazine 500 mg tablet 1 tab PO BID 11/08/22 11/08/22 Unknown History tiotropium bromide 2.5 2 puff inhalation DAILY 11/08/22 11/08/22 Unknown History mcg/actuation mist for inhalation (Spiriva Respimat) tramadol 50 mg tablet 50 mg PO Q6H PRN pain 11/08/22 11/08/22 Unknown History Exam Exam Date and Time: November 15, 2022 0953 Height,Weight and Vital Signs: Height 5 ft 2 in Weight 65.9 kg Last Vital Signs Temp 97.6 F 11/15/22 07:27 Pulse 77 11/15/22 08:28 Resp 16 11/15/22 08:28 BP 136/77 11/15/22 07:27 Pulse Ox 97 11/15/22 07:27 O2 Del Method 11/15/22 07:27 Vital Signs Temp Pulse Resp BP Pulse Ox O2 Del Method 11/15/22 11:07 75 16 11/15/22 10:41 98.2 F 80 20 128/76 95 Room Air 11/15/22 08:28 77 16 11/15/22 07:27 97.6 F 81 18 136/77 97 Room Air 11/15/22 04:00 97.8 F 75 17 133/72 93 Room Air 11/14/22 20:20 76 18 11/14/22 20:00 99 F 83 18 121/67 94 Room Air 11/14/22 19:24 99.0 F 83 18 121/67 94 Room Air 11/14/22 15:02 98.7 F 73 18 115/57 L 95 Room Air Pertinent Lab Results Pertinent Lab Results: Laboratory Tests 11/08/22 11/08/22 11/08/22 03:36 03:36 03:36 WBC 14.5 H RBC 4.82 D Hgb 11.1 L D Hct 36.6 L D MCV 75.9 L MCH 23.0 L MCHC 30.3 L RDW 13.2 Plt Count 310 D MPV 8.3 L Immature Gran % (Auto) 0.9 H Neut % (Auto) 76.6 H Lymph % (Auto) 12.3 L [place] % (Auto) 7.6 Eos % (Auto) 2.1 Baso % (Auto) 0.5 Lymph # (Auto) 1.8 [place] # (Auto) 1.1 Eos # (Auto) 0.3 Baso # (Auto) 0.1 Abs Immat Gran (auto) 0.13 H Absolute Neuts (auto) 11.1 H Absolute Nucleated RBC 0.000 Nucleated RBC % (auto) 0.0 ESR O2 Saturation ABG pH at Pt Temp ABG pCO2 at Pt Temp ABG pO2 at Pt Temp ABG HCO3 ABG Base Excess (Actual) Sodium 140 Potassium 3.2 L D Chloride 100 Carbon Dioxide 32 H Anion Gap 11 L BUN 7 L Creatinine 0.93 Estim Creat Clear Calc 67.5 Estimated GFR > 60 Random Glucose 105 Fasting Glucose Lactic Acid 1.0 Calcium 8.4 Magnesium 1.8 Total Bilirubin 0.3 AST 14 ALT 11 Alkaline Phosphatase 213 H C-Reactive Protein 6.99 H Total Protein 5.1 L Albumin 2.8 L Vancomycin Trough Random Vancomycin COVID-19 (MIGUEL ANGEL) COVID-AnyMeeting 11/08/22 11/08/22 11/08/22 03:36 03:36 06:42 WBC RBC Hgb Hct MCV MCH MCHC RDW Plt Count MPV Immature Gran % (Auto) Neut % (Auto) Lymph % (Auto) [place]son % (Auto) Eos % (Auto) Baso % (Auto) Lymph # (Auto) [place] # (Auto) Eos # (Auto) Baso # (Auto) Abs Immat Gran (auto) Absolute Neuts (auto) Absolute Nucleated RBC Nucleated RBC % (auto) ESR 23 H O2 Saturation 88.0 ABG pH at Pt Temp 7.41 ABG pCO2 at Pt Temp 42 ABG pO2 at Pt Temp 61 L ABG HCO3 27 H ABG Base Excess (Actual) 3.1 Sodium Potassium Chloride Carbon Dioxide Anion Gap BUN Creatinine Estim Creat Clear Calc Estimated GFR Random Glucose Fasting Glucose Lactic Acid Calcium Magnesium Total Bilirubin AST ALT Alkaline Phosphatase C-Reactive Protein Total Protein Albumin Vancomycin Trough Random Vancomycin COVID-19 (MIGUEL ANGEL) Negative COVID-19 Trademob See Note 11/09/22 11/09/22 11/09/22 05:55 05:55 18:03 WBC 13.5 H RBC 4.09 L Hgb 9.7 L Hct 31.4 L MCV 76.8 L MCH 23.7 L MCHC 30.9 L RDW 13.6 Plt Count 264 MPV 8.9 L Immature Gran % (Auto) 1.1 H Neut % (Auto) 82.7 H Lymph % (Auto) 6.6 L [place] % (Auto) 6.0 Eos % (Auto) 3.2 Baso % (Auto) 0.4 Lymph # (Auto) 0.9 L [place] # (Auto) 0.8 Eos # (Auto) 0.4 Baso # (Auto) 0.1 Abs Immat Gran (auto) 0.15 H Absolute Neuts (auto) 11.2 H Absolute Nucleated RBC 0.000 Nucleated RBC % (auto) 0.0 ESR O2 Saturation ABG pH at Pt Temp ABG pCO2 at Pt Temp ABG pO2 at Pt Temp ABG HCO3 ABG Base Excess (Actual) Sodium Potassium 3.9 D Chloride Carbon Dioxide Anion Gap BUN Creatinine 0.67 Estim Creat Clear Calc 94.4 Estimated GFR > 60 Random Glucose Fasting Glucose Lactic Acid Calcium Magnesium 1.7 Total Bilirubin AST ALT Alkaline Phosphatase C-Reactive Protein Total Protein Albumin Vancomycin Trough 13.8 Random Vancomycin COVID-19 ([facility] ANGEL) COVID-19 Clin Com 11/10/22 11/10/22 11/10/22 05:52 05:52 18:18 WBC 12.7 H RBC 4.09 L Hgb 9.5 L Hct 32.9 L MCV 80.4 MCH 23.2 L MCHC 28.9 L RDW 13.9 Plt Count 221 MPV 9.1 L Immature Gran % (Auto) Neut % (Auto) Lymph % (Auto) [place]son % (Auto) Eos % (Auto) Baso % (Auto) Lymph # (Auto) [place]son # (Auto) Eos # (Auto) Baso # (Auto) Abs Immat Gran (auto) Absolute Neuts (auto) Absolute Nucleated RBC 0.000 Nucleated RBC % (auto) 0.0 ESR O2 Saturation ABG pH at Pt Temp ABG pCO2 at Pt Temp ABG pO2 at Pt Temp ABG HCO3 ABG Base Excess (Actual) Sodium 142 Potassium 4.0 Chloride 108 Carbon Dioxide 26 Anion Gap 12 BUN 8 L Creatinine 0.65 Estim Creat Clear Calc 97.3 Estimated GFR > 60 Random Glucose 71 Fasting Glucose Lactic Acid Calcium 7.8 L D Magnesium Total Bilirubin AST ALT Alkaline Phosphatase C-Reactive Protein 4.54 H Total Protein Albumin Vancomycin Trough Random Vancomycin 18.9 COVID-19 ([facility]IGUEL ANGEL) COVID-19 Trademob 11/11/22 11/11/22 11/12/22 06:48 19:17 05:52 WBC RBC Hgb Hct MCV MCH MCHC RDW Plt Count MPV Immature Gran % (Auto) Neut % (Auto) Lymph % (Auto) [place]son % (Auto) Eos % (Auto) Baso % (Auto) Lymph # (Auto) [place] # (Auto) Eos # (Auto) Baso # (Auto) Abs Immat Gran (auto) Absolute Neuts (auto) Absolute Nucleated RBC Nucleated RBC % (auto) ESR O2 Saturation ABG pH at Pt Temp ABG pCO2 at Pt Temp ABG pO2 at Pt Temp ABG HCO3 ABG Base Excess (Actual) Sodium Potassium Chloride Carbon Dioxide Anion Gap BUN Creatinine 0.70 0.84 Estim Creat Clear Calc 90.4 75.3 Estimated GFR > 60 > 60 Random Glucose Fasting Glucose Lactic Acid Calcium Magnesium Total Bilirubin AST ALT Alkaline Phosphatase C-Reactive Protein 1.98 H Total Protein Albumin Vancomycin Trough Random Vancomycin 17.3 COVID-19 ([facility] ANGEL) COVID-19 Trademob 11/12/22 11/12/22 11/13/22 05:52 17:51 05:30 WBC 19.5 H RBC 4.48 Hgb 10.4 L Hct 35.5 L MCV 79.2 L MCH 23.2 L MCHC 29.3 L RDW 14.2 Plt Count 352 D MPV 8.7 L Immature Gran % (Auto) Neut % (Auto) Lymph % (Auto) [place] % (Auto) Eos % (Auto) Baso % (Auto) Lymph # (Auto) [place] # (Auto) Eos # (Auto) Baso # (Auto) Abs Immat Gran (auto) Absolute Neuts (auto) Absolute Nucleated RBC 0.000 Nucleated RBC % (auto) 0.0 ESR O2 Saturation ABG pH at Pt Temp ABG pCO2 at Pt Temp ABG pO2 at Pt Temp ABG HCO3 ABG Base Excess (Actual) Sodium 141 Potassium 4.0 Chloride 105 Carbon Dioxide 30 H Anion Gap 10 L BUN 11 Creatinine 0.73 Estim Creat Clear Calc 86.6 Estimated GFR > 60 Random Glucose 76 Fasting Glucose Lactic Acid Calcium 8.3 L D Magnesium Total Bilirubin AST ALT Alkaline Phosphatase C-Reactive Protein Total Protein Albumin Vancomycin Trough Random Vancomycin 14.7 L COVID-19 ([facility]) COVID-19 Clin Com 11/13/22 11/14/22 11/14/22 05:30 05:34 05:34 WBC 11.9 H RBC 4.13 L Hgb 9.5 L Hct 32.5 L MCV 78.7 L MCH 23.0 L MCHC 29.2 L RDW 14.1 Plt Count 322 MPV 8.9 L Immature Gran % (Auto) Neut % (Auto) Lymph % (Auto) [place]son % (Auto) Eos % (Auto) Baso % (Auto) Lymph # (Auto) [place] # (Auto) Eos # (Auto) Baso # (Auto) Abs Immat Gran (auto) Absolute Neuts (auto) Absolute Nucleated RBC 0.000 Nucleated RBC % (auto) 0.0 ESR O2 Saturation ABG pH at Pt Temp ABG pCO2 at Pt Temp ABG pO2 at Pt Temp ABG HCO3 ABG Base Excess (Actual) Sodium 142 Potassium 4.1 Chloride 106 Carbon Dioxide 29 Anion Gap 11 L BUN 10 Creatinine 0.75 Estim Creat Clear Calc 84.3 Estimated GFR > 60 Random Glucose Fasting Glucose 110 H Lactic Acid Calcium 8.4 Magnesium Total Bilirubin 0.2 AST 24 D ALT 17 Alkaline Phosphatase 124 H C-Reactive Protein Total Protein 4.7 L Albumin 2.7 L Vancomycin Trough 15.8 Random Vancomycin COVID-19 ([facility]) COVID-19 Clin Com 11/14/22 11/15/22 11/15/22 05:34 05:40 05:40 WBC 12.1 H 13.1 H RBC 4.02 L 3.95 L Hgb 9.4 L 9.3 L Hct 32.4 L 31.9 L MCV 80.6 80.8 MCH 23.4 L 23.5 L MCHC 29.0 L 29.2 L RDW 14.2 14.4 Plt Count 325 371 MPV 9.0 L 8.9 L Immature Gran % (Auto) 2.6 H 2.7 H Neut % (Auto) 68.5 68.6 Lymph % (Auto) 17.6 L 17.1 L [place]son % (Auto) 8.4 8.3 Eos % (Auto) 2.2 2.5 Baso % (Auto) 0.7 0.8 Lymph # (Auto) 2.1 2.2 [place]son # (Auto) 1.0 1.1 Eos # (Auto) 0.3 0.3 Baso # (Auto) 0.1 0.1 Abs Immat Gran (auto) 0.31 H 0.35 H Absolute Neuts (auto) 8.3 9.0 H Absolute Nucleated RBC 0.000 0.000 Nucleated RBC % (auto) 0.0 0.0 ESR O2 Saturation ABG pH at Pt Temp ABG pCO2 at Pt Temp ABG pO2 at Pt Temp ABG HCO3 ABG Base Excess (Actual) Sodium 143 Potassium 4.0 Chloride 106 Carbon Dioxide 31 H Anion Gap 10 L BUN 10 Creatinine 0.77 Estim Creat Clear Calc 82.1 Estimated GFR > 60 Random Glucose Fasting Glucose 81 Lactic Acid Calcium 8.4 Magnesium Total Bilirubin 0.3 AST 19 ALT 18 Alkaline Phosphatase 122 H C-Reactive Protein Total Protein 4.7 L Albumin 2.7 L Vancomycin Trough Random Vancomycin COVID-19 ([facility]) COVID-19 Clin Com Airway Neck ROM: Full Loose/Missing/Broken Teeth: Yes (No teeth) Heart: RRR Lungs: Bilateral wheezes Other: Bilateral wheezes still present post albuterol therapy. Sallow complexion. Baseline sats 94%. No improvement post albuterol Assessment and Plan Assessment Anesthesia Assessment: Anesthesia Plan Discussed and Chart Reviewed Final Anesthetic Review Family History of Problems with Anesthesia: No History of Problems with Anesthesia: No NPO: Yes ASA Class: III Final Preanesthetic Review: No Changes in Pt Med Stat, Meds/Allgs Chart Reviewed, Consent Obtained/Reviewed and Anes Risks/Benef Reviewed Patient Risk: Intermediate Procedure Risk: Low Assessment/Block/Sedation in SS: Assess/Block/Sedation-SS Anesthetic Plan Anesthetic Plan: GA Disposition: Standard PACU
--- NOTE | 2022-11-15 10:23 | HO.PM.IMPN ---
Subjective Subjective Date of Service: 11/15/22 Interval History: Increase in oxycodone has helped pain. To OR today for open drainage Review of Systems Denies chest pain Denies shortness of breath Denies nausea vomiting diarrhea Denies fever chills Physical Exam Vital Signs: Vital Signs: Last Vital Signs Temp 97.6 F 11/15/22 07:27 Pulse 77 11/15/22 08:28 Resp 16 11/15/22 08:28 BP 136/77 11/15/22 07:27 Pulse Ox 97 11/15/22 07:27 O2 Del Method 11/15/22 07:27 BMI result Body Mass Index 26.5 Const: Other: Awake alert no acute distress Resp: Other: Clear to auscultation bilaterally no rales rhonchi wheezes Cardio: Other: No S4; positive S1-S2; no S3 murmurs rubs or gallops GI: Other: Soft nontender nondistended normoactive bowel sounds Extrem: Other: Right elbow edematous tense dressing intact Objective Data Active Medications Acetaminophen (Acetaminophen 325 Mg Tablet) 650 mg PO Q6H PRN PRN Reason: Pain, Mild (Pain Scale 1-3) Last Admin: 11/12/22 16:38 Dose: 650 mg Documented By: YANDEL Acetaminophen/Butalbital/Caffeine (Butalb/Acetamin/Caff 50/325/40 Tablet) 2 tab PO DAILY PRN PRN Reason: headache Albuterol Sulfate (Albuterol Sulfate 90 Mcg 8 Gm Inhaler) 2 puff INHALE Q4H PRN PRN Reason: Shortness Of Breath Or Wheezing Apixaban (Apixaban 5 Mg Tablet) 5 mg PO BID [facility] Last Admin: 11/13/22 08:08 Dose: 5 mg Documented By: SHELBY Bupropion HCl (Bupropion Hcl Xl 150 Mg Tab.Er.24h) 150 mg PO DAILY [facility] Last Admin: 11/15/22 07:39 Dose: 150 mg Documented By: MONCHO Famotidine (Famotidine 20 Mg Tablet) 20 mg PO DAILY [facility] Last Admin: 11/15/22 07:39 Dose: 20 mg Documented By: MONCHO Ferrous Sulfate (Ferrous Sulfate 324 Mg Tablet.) 324 mg PO DAILY [facility] Last Admin: 11/15/22 07:46 Dose: Not Given Documented By: MONCHO Non-Admin Reason: NPO Fluoxetine HCl (Fluoxetine Hcl 20 Mg Capsule) 40 mg PO DAILY [facility] Last Admin: 11/15/22 07:38 Dose: 40 mg Documented By: MONCHO Fluticasone Propionate (Fluticasone Propionate 250 Mcg Blst.W.Dev) 1 puff INHALE RBID [facility] Last Admin: 11/15/22 08:26 Dose: 1 puff Documented By: HAYLEY Folic Acid (Folic Acid 1 Mg Tablet) 1 mg PO DAILY [facility] Last Admin: 11/15/22 07:46 Dose: Not Given Documented By: MONCHO Non-Admin Reason: NPO Hydroxychloroquine Sulfate (Hydroxychloroquine Sulfate 200 Mg Tablet) 200 mg PO BID [facility] Last Admin: 11/15/22 07:39 Dose: 200 mg Documented By: MONCHO Piperacillin Sod/Tazobactam (Sod 3.375 gm/ Sodium Chloride) 50 mls @ 100 mls/hr IV Q6H [facility] Last Infusion: 11/15/22 09:35 Dose: 0 mls/hr Documented By: MONCHO Vancomycin HCl 750 mg/ Sodium (Chloride) 265 mls @ 265 mls/hr IV Q12H [facility] Last Infusion: 11/15/22 08:57 Dose: 0 mls/hr Documented By: MONCHO Levothyroxine Sodium (Levothyroxine Sodium 175 Mcg Tablet) 175 mcg PO DAILY@0600 [facility] Last Admin: 11/15/22 05:52 Dose: Not Given Documented By: LAKE Non-Admin Reason: PT NPO, [facility] I&D TODAY Loratadine (Loratadine 10 Mg Tablet) 10 mg PO DAILY [facility] Last Admin: 11/15/22 07:39 Dose: 10 mg Documented By: MONCHO Lorazepam (Lorazepam 1 Mg Tablet) 1 mg PO BID PRN PRN Reason: Anxiety Last Admin: 11/10/22 20:49 Dose: 1 mg Documented By: BARBARA Multivitamins/Vitamin C (Multivitamin Tablet) 1 tab PO DAILY [facility] Last Admin: 11/15/22 07:46 Dose: Not Given Documented By: MONCHO Non-Admin Reason: NPO Nortriptyline HCl (Nortriptyline Hcl 25 Mg Capsule) 75 mg PO BEDTIME [facility] Last Admin: 11/14/22 21:43 Dose: 75 mg Documented By: LAKE Nystatin (Nystatin Cream 15 Gm Tube) 1 appl TOPICAL BID [facility]; Protocol Last Admin: 11/15/22 07:46 Dose: 1 appl Documented By: MONCHO Ondansetron HCl (Ondansetron Hcl 4 Mg/2 Ml Vial) 4 mg IVPUSH Q8H PRN PRN Reason: Nausea and Vomiting Oxycodone HCl (Oxycodone Hcl Immed Release 5 Mg Tablet) 10 mg PO Q4H PRN PRN Reason: Pain, Moderate (Pain Scale 4-6 Last Admin: 11/15/22 09:34 Dose: 10 mg Documented By: MONCHO Pharmacy Consult (Consult Rx Vancomycin Dosing) 1 each MISCELLANE DAILY PRN PRN Reason: Consult order Pravastatin Sodium (Pravastatin Sodium 40 Mg Tablet) 40 mg PO BEDTIME [facility] Last Admin: 11/14/22 21:43 Dose: 40 mg Documented By: LAKE Prednisone (Prednisone 20 Mg Tablet) 20 mg PO DAILY [facility] Last Admin: 11/15/22 08:52 Dose: 20 mg Documented By: MONCHO Sodium Chloride (0.9 % Sodium Chloride Flush 3 Ml Syringe) 3 ml IVFLUSH QSHIFT [facility] Last Admin: 11/15/22 07:39 Dose: 3 ml Documented By: MONCHO Sulfasalazine (Sulfasalazine 500 Mg Tablet) 500 mg PO BID [facility] Last Admin: 11/15/22 08:52 Dose: 500 mg Documented By: MONCHO Tiotropium [place] (Tiotropium [place] 18 Mcg Cap.W.Dev) 1 puff INHALE RDAILY [facility] Last Admin: 11/15/22 08:26 Dose: 1 puff Documented By: HAYLEY Labs CBC & Chem 7: 11/15/22 05:40 11/15/22 05:40 Labs: Laboratory Results - last 24 hr 11/15/22 11/15/22 05:40 05:40 MCV 80.8 MCH 23.5 L MCHC 29.2 L RDW 14.4 Plt Count 371 MPV 8.9 L Immature Gran % (Auto) 2.7 H Neut % (Auto) 68.6 Lymph % (Auto) 17.1 L [place] % (Auto) 8.3 Eos % (Auto) 2.5 Baso % (Auto) 0.8 Lymph # (Auto) 2.2 [place] # (Auto) 1.1 Eos # (Auto) 0.3 Baso # (Auto) 0.1 Abs Immat Gran (auto) 0.35 H Absolute Neuts (auto) 9.0 H Absolute Nucleated RBC 0.000 Nucleated RBC % (auto) 0.0 Anion Gap 10 L Estim Creat Clear Calc 82.1 Estimated GFR > 60 Fasting Glucose 81 Calcium 8.4 Total Bilirubin 0.3 AST 19 ALT 18 Alkaline Phosphatase 122 H Total Protein 4.7 L Albumin 2.7 L Assessment and Plan (1) Cellulitis: Status: Acute (2) Rheumatoid arthritis: Status: Acute (3) Abscess: Status: Acute Plan 47yo F with COPD, PAD, SLE/RA/MCTD on chronic prednisone + hydroxychloroquine presenting after falling, admitted for infected wound over right olecranon; initially drained in ER. CT available done yesterday shows increased fluid collection. 1.Cellulitis/wound infection -vanco/zosyn(8) given -orthopedics reconsulted- to OR today - wound care consult noted 2.SLE/RA/MCTD -prednisone/hydroxychloroquine/sulfasalazine. -prednisone increased for flare; will need to be tapered slowly 3.COPD -no acute issues -continue prn albuterol/ tiotropium 4.PAD -apixban/statin Full code Nitzaqulorraine Requires ongoing hospitalization for IV antibiotics to treat left infected elbow bursitis Time Spent With Patient Time: Total time managing care of this patient today ____ minutes. Quality Stroke Does the patient have a stroke diagnosis?: No VTE Prior VTE?: No VTE Risk Level:: Medical - moderate - high VTE Device Contraindication: Treatment Not Indicated VTE Drug Contraindication: N/A - Med Ordered
[2022-11-15] MEDS: Albuterol Sulfate (0.083%) 2.5 MG/3 ML VIAL.NEB INHALE (11:05)
--- NOTE | 2022-11-15 14:33 | MHC.SHP ---
Pre-Procedural Eval Section A Date of Service: 11/15/22 The patient is an INPATIENT: No Changes since office visit: No Cold of Flu in the past 2 weeks, No New Medical Problems, No Changes in Medication and No Patient answered all questions The History & Physical has been completed within 30 days and I have reviewed it.: Yes Section B Chief Complaint: Infected Wound Allergies: Allergies Allergy/AdvReac Type Severity Reaction Status Date / Time clarithromycin Allergy Intermediate FACIAL Verified 11/08/22 01:19 [CLARITHROMYCIN] SWELLING/REDNESS, facial rash, facial rash, facial rash, facial rash Plan I have reviewed the history and physical and performed a pertinent physical examination on my patient. No changes have occurred unless specified. Time Spent With Patient Time: Total time managing care of this patient today ____ minutes.
--- NOTE | 2022-11-15 14:34 | W.PM.OPN ---
Operative Note Operative Note Date of Service: 11/15/22 Narrative: Operative Note Narrative: Preop diagnosis: 1. Abscess extending from the posterior aspect of the lower arm to the proximal posterior forearm Postop diagnosis: no abscess found. Chronic olecranon bursitis with open wound Procedure: 1. I and D left olecranon bursa Surgeon: Caitlyn Sutton MD Anesthesia: General Anesthesia Findings: no abscess found. Some fibrinous debris was found within the olecranon bursa and sent for histopathology and for culture. A 2 cm diameter chronic wound was found approximately 3 cm proximal to the olecranon on and contiguous with the olecranon bursa. No purulence found within the bursa either. Implants: Iodoform drain Tourniquet time: 0 minutes EBL: 5.0 ml Specimen: fibrinous debris sent for histopathology. Cultures taken from olecranon bursa Drains: None Complications: None Disposition: Brought to the recovery room in stable condition Plan: admit back to floor. Remove packing tomorrow. Proximal aspect of wound closed allowing for drainage from the inferior aspect of the wound check cultures and histopathology anticipate removal of sutures in 2-3 weeks Indications: The patient is a 47 year old woman with concern for possible abscess extending from distal humeral area to proximal posterior forearm based on CT scan. . The risks and benefits of operative treatment, including but not limited to risk of damage to blood vessels, nerves, tendons, infection, recurrence, persistent pain or numbness, incomplete resolution of preoperative symptoms, or need for further surgery were discussed with the patient and they wished to proceed with surgery. Procedure: Once consent was obtained patient was brought back to the operating suite and placed in the operating table in a supine position. Anesthesia was administered by the anesthesia team. A tourniquet was applied to the proximal aspect of the Right upper extremity and the limb was prepped and draped in a standard surgical fashion. The tourniquet was not inflated during the case. Again there is a 2 cm diameter chronic wound approximately 3-4 cm proximal to the olecranon contiguous with the olecranon bursa. This wound was explored and some fibrinous debris was removed using a rongeur. This debride was sent for histopathology. Cultures were also taken from the bursa. No gross purulence was found. The bursa was explored and we found no communication with any abscess cavities. There was no palpable fullness that would suggest an abscess cavity at the olecranon or distal to it, or proximal to the wound. Findings on CT scan likely represented this chronic bursa. The bursa was then copiously irrigated with normal saline. I then excised about a mm of skin from the wound edges using a 15. Blade. I placed some 1/2 inch iodoform gauze within the wound to facilitate drainage. I then reapproximated the edges of the proximal 2/3 of the wound to facilitate closure of the proximal aspect of the wound. This will still allow for drainage through a smaller wound at the distal aspect of the wound. The skin edges were reapproximated with some 4-0 Prolene suture. The wound was infiltrated with some 0.5% plain ropivacaine for postop pain control. Sterile dressing was then applied. The patient appears to have tolerated the procedure well and with no complications. All digits were well vascularized conclusion of the case.
[2022-11-15 18:20] LABS: Vancomycin Trough 13.1 mcg/mL (10.0-20.0)
--- NOTE | 2022-11-15 18:28 | HE.PHANOTE ---
DEA TAYLOR CONTINUE CURRENT DOSE, NEXT LEVEL 11/17 @ 0600 TAWANNA
[2022-11-15] MEDS: Pravastatin Sodium 40 MG TABLET PO (19:12)
[2022-11-15] MEDS: Nortriptyline HCl 25 MG CAPSULE 75 MG PO (19:13)
[2022-11-15] MEDS: Apixaban 5 MG TABLET PO (19:13)
[2022-11-16] MEDS: oxyCODONE HCl Immed Release 5 MG TABLET 10 MG PO ×2 (00:34→08:06)
[2022-11-16] MEDS: LORazepam 1 MG TABLET PO (00:38)
[2022-11-16] MEDS: Piperacillin Sodium/Tazobactam 3.375 GM in 0.9 % Sodium Chloride 50 ML IV ×2 (02:55→09:24)
[2022-11-16 03:41] VITALS: BP 133/65; PULSE 85; RESP 14; TEMP 37; O2SAT 90
[2022-11-16] MEDS: Levothyroxine Sodium 175 MCG TABLET PO (04:48)
[2022-11-16 06:19] LABS: MANUAL DIFF FLAG NO
[2022-11-16 06:38] LABS: Basophils Absolute Auto 0.1 X10*3/uL (0.0-0.2); Basophils Percent Auto 0.8 % (0-2); Eosinophils Absolute Auto 0.2 X10*3/uL (0.0-0.4); Eosinophils Percent Auto 2.1 % (0-4); Hematocrit 33.3 % (37.0-47.0); Hemoglobin 9.5 g/dl (12.0-16.0); Imm Gran Pct Auto 2.6 % (0.0-0.4); Lymphocytes Absolute Auto 2.3 X10*3/uL (1.2-4.9); Lymphocytes Percent Auto 20.1 % (20-40); Mean Corpuscular HGB Conc 28.5 g/dl (31.0-35.0); Mean Corpuscular Hemoglobin 23.1 pg (27.0-33.0); Mean Platelet Volume 8.7 fL (9.4-12.3); Monocytes Absolute Auto 0.9 X10*3/uL (0.1-1.2); Monocytes Percent Auto 7.8 % (2-11); Neutrophils Absolute Auto 7.8 x10*3/uL (2.0-8.3); Neutrophils Percent Auto 66.6 % (45-73); Platelet Count 383 X10*3/uL (160-400); Red Blood Count 4.11 X10*6/uL (4.20-5.50); Red Cell Distribution Width 14.4 % (11.0-16.0); White Blood Count 11.7 X10*3/uL (4.8-10.8)
[2022-11-16 06:48] LABS: Alanine Aminotransferase 21 U/L (0-31); Albumin Level 2.8 g/dL (3.5-5.0); Alkaline Phosphatase 116 U/L (39-117); Anion Gap 11 (12-20); Aspartate Amino Transferase 28 U/L (5-31); Bilirubin Total 0.2 mg/dL (0.0-1.0); Blood Urea Nitrogen 11 mg/dL (9-16); Calcium 8.4 mg/dL (8.4-10.2); Carbon Dioxide 30 mmol/L (22-29); Chloride 106 mmol/L (96-108); Creatinine Clr Calc Pharmacy 81.1; Estimated Glomerular Filt Rate > 60; Glucose Fasting 76 mg/dL (60-99); Potassium 4.1 mmol/L (3.3-5.1); Sodium 143 mmol/L (135-145); Total Protein 4.9 g/dL (6.5-8.0)
--- NOTE | 2022-11-16 07:24 | PM.PNORT ---
Subjective Subjective Date of Service: 11/16/22 Interval history: POD1 s/p right elbow olecranon bursa I&D. Patient is resting comfortably in bed. No overnight events. Pain is well managed. No additional complaints. Physical Exam Vital Signs: Vital Signs: Last Vital Signs Temp 98.6 F 11/16/22 03:41 Pulse 85 11/16/22 03:41 Resp 14 11/16/22 03:41 BP 133/65 11/16/22 03:41 Pulse Ox 90 L 11/16/22 03:41 O2 Del Method 11/16/22 03:41 O2 Flow Rate 6 11/15/22 13:40 BMI result Body Mass Index 26.5 Const: General: cooperative, healthy appearing and no acute distress Resp: Effort & Inspection: normal respiratory effort and able to speak in complete sentences Cardio: Rate: regular rate Peripheral pulses: Peripheral pulses 2+ throughout GI: Palpation (GI): Soft to palpation Skin: Lesions: no lesions Rashes: no rashes Extrem: Other: Right elbow packing in place. Removed packing at bedside. [place] drainage noted. Able to perform full elbow ROM. Sensation intact. Radial pulse intact. Procedures Date of Service Date of Service: 11/16/22 Progress Note: A&P Assessment and plan (1) Olecranon bursitis: Status: Acute Assessment and Plan: Continue pain mgmnt Packing removed at bedside Redressed right elbow Suture removal 2-3 weeks Dressing changes twice daily, more depending on drainage amount Gentle ROM elbow Cont. abx per medicine recommendation Dispo planning- Able to D/C from orthopedic perspective, pending d/c clearance from medicine (2) Open wound of right elbow: Status: Acute Time Spent With Patient Time: Total time managing care of this patient today ____ minutes. Quality Stroke Does the patient have a stroke diagnosis?: No VTE Prior VTE?: No VTE Risk Level:: Medical - moderate - high VTE Device Contraindication: Treatment Not Indicated VTE Drug Contraindication: N/A - Med Ordered
--- NOTE | 2022-11-16 07:54 | HO.POSTANES ---
Post Anesthesia Evaluation Post Anesthesia Evaluation Vital Signs: Vital Signs Temp Pulse Resp BP Pulse Ox O2 Del Method 11/16/22 03:41 98.6 F 85 14 133/65 90 L Room Air 11/15/22 19:59 78 18 Anesthesia: General LMA Mental Status: Awake Pain Control: Satisfactory Nausea/Vomiting: None Hydration: Adequate Anesthesia-Related Issues: No Anes. Related Issues
[2022-11-16 07:58] VITALS: BP 140/79; PULSE 86; RESP 18; TEMP 36.6; O2SAT 95
[2022-11-16] MEDS: FLUoxetine HCl 20 MG CAPSULE 40 MG PO (08:05)
[2022-11-16] MEDS: Hydroxychloroquine Sulfate 200 MG TABLET PO (08:05)
[2022-11-16] MEDS: Apixaban 5 MG TABLET PO (08:05)
[2022-11-16] MEDS: Folic Acid 1 MG TABLET PO (08:05)
[2022-11-16] MEDS: 0.9 % Sodium Chloride Flush 3 ML SYRINGE IVFLUSH (08:05)
[2022-11-16] MEDS: buPROPion HCl XL 150 MG TAB.ER.24H PO (08:05)
[2022-11-16] MEDS: Loratadine 10 MG TABLET PO (08:05)
[2022-11-16] MEDS: sulfaSALAzine 500 MG TABLET PO (08:05)
[2022-11-16] MEDS: Ferrous Sulfate 324 MG TABLET.DR PO (08:05)
[2022-11-16] MEDS: Multivitamin TABLET 1 TAB PO (08:06)
[2022-11-16] MEDS: Famotidine 20 MG TABLET PO (08:06)
[2022-11-16] MEDS: Nystatin Cream 15 GM TUBE 1 APPL TOPICAL (08:09)
[2022-11-16] MEDS: Fluticasone Propionate 250 MCG BLST.W.DEV 1 PUFF INHALE (08:22)
[2022-11-16 08:23] VITALS: PULSE 86; RESP 18; O2SAT 95
[2022-11-16] MEDS: predniSONE 20 MG TABLET PO (09:24)
[2022-11-16 09:37] VITALS: PULSE 86
--- NOTE | 2022-11-16 11:39 | MHC.CM.PN ---
Addendum entered by Berta Wilcox RN 11/16/22 12:32: [facility] IS OFFERING SERVICES. Original Note: PATIENT HAS DECIDED TO DC HOME WITH NEW VNA REFERRAL TO [facility] FOR POSSIBLE SERVICES. PATIENT'S MEASUREMENT AND SENSING TECHNICIAN WILL TRANSPORT HOME CASE MANAGEMENT TO FOLLOW UP WITH RN ABOUT OFFERING VNA. IMM 11/15 IN CHART
--- NOTE | 2022-11-16 12:41 | W.MHC.F2F ---
Service Date Service Date: 11/16/22 Encounter Date of encounter: 11/16/22 Encounter: Acute hospitalization Reasons for Services Signs and symptoms assessed: Wound care/dressing; assess for ongoing signs symptoms of infection Reason for group home: wound care, medication management and medication treatment Homebound: Leaving the home is medically contraindicated at this time without the asist of a device and/or another person due th the listed conditions above and below. Reason homebound: poor balance / fall risk, weakness related to hospital stay and unable to drive Certification: Based on the above findings, I certify that this patient is confined to the home and needs intermittent group home care, physical therapy and/or speech therapy, or continues to need occupational therapy. The patient is under my care, and I have initiated the establishment of the plan of care. The patient will be followed by a physician who will periodically review the plan of care. Time Spent With Patient Time: Total time managing care of this patient today ___30 minutes.
--- NOTE | 2022-11-16 12:43 | PM.DS ---
DS: Providers Provider Date of Service: 11/16/22 Date of admission: 11/08/22 06:09 Date of discharge: 11/16/22 Primary care physician: Barbie Brown MD Consults: 11/08/22 06:08 Consult to Orthopedics Routine Consulting Provider: Ben Greene Reason for consultation: metatarsal fx Has provider been notified: No 11/10/22 10:18 Consult to Wound Care [place]ine [place] [facility] [place] Reason for consultation: R elbow wound 11/14/22 08:41 Consult to Orthopedics Stat Consulting Provider: Ben Greene Reason for consultation: infected bursa Has provider been notified: Yes DS: Diagnosis Discharge Diagnosis (1) Olecranon bursitis: Status: Acute (2) Open wound of right elbow: Status: Acute DS: Summary Hospital Course Hospital Course: 47-year-old female presents to the emergency room with a complaint of falls. Found to have acute right elbow cellulitis. She was admitted to the general medical floor and started on vancomycin and Zosyn. After 5 days of therapy elbow was not clinically improving so an MRI was taken. This showed complex collection in the right elbow. Patient was seen by Orthopedics and on 11/15/2022 was taken to the OR for open I&D. Per Ortho note, these are chronic changes and a chronic bursitis without abscess. At this point in time patient has remained afebrile without a white count. She will be discharged home with VNA support and have dry dressings to elbow until further notice. She will need follow-up with Orthopedics in 2 weeks. She will also need to complete a course of Augmentin 875 b.i.d. for 10 days. Time Spent with Patient Time attestation: Total time managing care of this patient today ____ minutes. Discharge coordination time: Greater than 30 minutes Quality: Safe Use of Opioids Does Pt have an Active Cancer Diagnosis on the Problem List?: No Quality: Stroke Does the patient have a stroke diagnosis?: No Physical Exam Vital Signs: Vital Signs: Last Vital Signs Temp 97.9 F 11/16/22 07:58 Pulse 86 11/16/22 09:37 Resp 18 11/16/22 08:23 BP 140/79 H 11/16/22 07:58 Pulse Ox 95 11/16/22 07:58 O2 Del Method 11/16/22 07:58 O2 Flow Rate 6 11/15/22 13:40 BMI result Body Mass Index 26.5 Const: Other: Awake alert no acute distress Resp: Other: Clear to auscultation bilaterally no rales rhonchi wheezes Cardio: Other: No S4; positive S1-S2; no S3 murmurs rubs or gallops GI: Other: Soft nontender nondistended normoactive bowel sounds Extrem: Other: Right elbow edematous tense dressing intact DS: Data Data Completed and Pending Completed studies during hospitalization [Text1]: Procedures Assistance with Respiratory Ventilation, Less than 24 Consecutive Hours, Continuous Positive Airway Pressure (11/25/21) Excision of Left Lower Leg Subcutaneous Tissue and Fascia, Open Approach, Diagnostic (08/31/20) Insertion of Endotracheal Airway into Trachea, Via Natural or Artificial Opening Endoscopic (11/25/21) Insertion of Infusion Device into Superior Vena Cava, Percutaneous Approach (11/25/21) Introduction of Baricitinib into Mouth and Pharynx, External Approach, [employer] 6 (11/25/21) Introduction of Remdesivir Anti-infective into Peripheral Vein, Percutaneous Approach, [employer] 5 (11/25/21) Introduction of Vasopressor into Peripheral Vein, Percutaneous Approach (11/25/21) Respiratory Ventilation, 24-96 Consecutive Hours (11/25/21) Respiratory Ventilation, Greater than 96 Consecutive Hours (11/25/21) Transfusion of Nonautologous Red Blood Cells into Peripheral Vein, Percutaneous Approach (11/25/21) Pending studies at discharge: Pending at discharge 11/15/22 12:52 Surgical [PTH] Routine Labs on day of discharge: Laboratory Results - last 24 hr 11/15/22 11/16/22 11/16/22 17:52 05:32 05:32 WBC 11.7 H RBC 4.11 L Hgb 9.5 L Hct 33.3 L MCV 81.0 MCH 23.1 L MCHC 28.5 L RDW 14.4 Plt Count 383 MPV 8.7 L Immature Gran % (Auto) 2.6 H Neut % (Auto) 66.6 Lymph % (Auto) 20.1 [place] % (Auto) 7.8 Eos % (Auto) 2.1 Baso % (Auto) 0.8 Lymph # (Auto) 2.3 [place] # (Auto) 0.9 Eos # (Auto) 0.2 Baso # (Auto) 0.1 Abs Immat Gran (auto) 0.30 H Absolute Neuts (auto) 7.8 Absolute Nucleated RBC 0.000 Nucleated RBC % (auto) 0.0 Sodium 143 Potassium 4.1 Chloride 106 Carbon Dioxide 30 H Anion Gap 11 L BUN 11 Creatinine 0.78 Estim Creat Clear Calc 81.1 Estimated GFR > 60 Fasting Glucose 76 Calcium 8.4 Total Bilirubin 0.2 AST 28 ALT 21 Alkaline Phosphatase 116 Total Protein 4.9 L Albumin 2.8 L Vancomycin Trough 13.1 Preliminary micro results at discharge 11/15/22 Unknown Routine Culture - Preliminary Elbow Right No growth to date. Discharge Plan Discharge Anticipated Discharge Date/Time: 11/16/22 12:32 Patient Disposition: Home Health Service Discharge Diagnosis: Cellulitis Referrals: [facility] [Outside] - 1 Week Barbie Dunn MD [Primary Care Provider] - 1 Week Discharge Medications: New nystatin 100,000 unit/gram Cream 1 appl topical BID Qty: 60 0RF Protocol: Apply to: Apply to: groin and buttocks oxycodone 5 mg Tablet 10 mg PO Q4H PRN (Reason: Pain, Moderate (Pain Scale 4-6) Qty: 30 0RF Rx Instructions: Partial Fill upon patient request. fluconazole [Diflucan] 150 mg tablet 150 mg PO Q3D Qty: 2 0RF Continued folic acid 1 mg tablet 1 mg PO DAILY Qty: 30 3RF hydroxychloroquine 200 mg tablet 200 mg PO BID Qty: 60 3RF albuterol sulfate 2.5 mg /3 mL (0.083 %) solution for nebulization 2.5 mg inhalation Q6H PRN (Reason: Shortness Of Breath Or Wheezing) prednisone 5 mg tablet 5 mg PO DAILY bupropion HCl 100 mg tablet sustained-release 12 hr 100 mg PO BID albuterol sulfate 90 mcg/actuation HFA aerosol inhaler 2 puff inhalation Q4H PRN (Reason: Shortness Of Breath Or Wheezing) loratadine 10 mg Tablet 10 mg PO DAILY multivitamin Tablet 1 tab PO DAILY fluticasone propionate [Flovent HFA] 220 mcg/actuation Hfa Aerosol Inhaler 1 puff INHALATION BID apixaban 5 mg Tablet 5 mg PO BID levothyroxine 175 mcg Tablet 175 mcg PO DAILY famotidine 20 mg tablet 1 tab PO DAILY [id number] 50-325-40 mg tablet 2 tab PO DAILY PRN (Reason: headache) sulfasalazine 500 mg tablet 1 tab PO BID ferrous sulfate [FeroSul] 325 mg (65 mg iron) tablet 1 tab PO DAILY Spiriva Respimat 2.5 mcg/actuation mist 2 puff INHALATION DAILY tramadol 50 mg tablet 50 mg PO Q6H PRN (Reason: pain) nortriptyline 75 mg capsule 75 mg PO BEDTIME fluoxetine [Prozac] 40 mg capsule 40 mg PO DAILY lorazepam 1 mg tablet 1 mg PO BID PRN (Reason: Anxiety) pravastatin 40 mg tablet 40 mg PO BEDTIME (DME) nebulizer and compressor [Vios Aerosol Delivery System] Device See Rx Instructions .ROUTE DIRECTED Qty: 1 Rx Instructions: As directed Discharge Orders: Discharge Order (Routine); Ordered 11/16/22 Ordered By: Alo Ceron Diet: Advance to usual diet Activity on Discharge: As tolerated Stand Alone Forms: Patient Portal Discharge page Care Plan Goals: Complete course of Augmentin as ordered Health Concerns: Daily dry dressings; change as needed Plan of Treatment: Follow-up with [facility] :11/28/22 10:45 Assessment: See discharge summary
== END 2022-11-16 15:03 | disposition home health service (06) | DRG 501 ==
LOC: HO.ED 05:04 → HO.EDOVER 06:19 → HO.S3 12:41
PROVIDERS: Family Medicine; Orthopaedic Surgery; Admitting Provider Internal Medicine; Emergency Provider Internal Medicine; PCP Family Medicine; Visit Provider Hospitalist
PROC: 0M930ZZ Drainage of Right Elbow Bursa and Ligament, Open Approach (ICD-10-PCS; principal; 2022-11-15 11:50)
DX: M70.21 Olecranon bursitis, right elbow (principal); A52.16 Charcot's arthropathy (tabetic); L03.113 Cellulitis of right upper limb; L03.116 Cellulitis of left lower limb; D84.821 Immunodeficiency due to drugs; M35.1 Other overlap syndromes; F17.210 Nicotine dependence, cigarettes, uncomplicated; J44.9 Chronic obstructive pulmonary disease, unspecified; M06.9 Rheumatoid arthritis, unspecified; R29.6 Repeated falls; I73.9 Peripheral vascular disease, unspecified; F41.9 Anxiety disorder, unspecified; M32.9 Systemic lupus erythematosus, unspecified; E87.6 Hypokalemia; L84 Corns and callosities; Z91.81 History of falling; Z20.822 Contact with and (suspected) exposure to COVID-19; Z86.16 Personal history of COVID-19; Z86.73 Personal history of transient ischemic attack (TIA), and cerebral infarction without residual deficits; Z71.6 Tobacco abuse counseling; Z88.1 Allergy status to other antibiotic agents; Z79.01 Long term (current) use of anticoagulants; Z79.52 Long term (current) use of systemic steroids; Z79.890 Hormone replacement therapy; Z79.899 Other long term (current) drug therapy
CPT/HCPCS: 36415; 36600; 70450; 71045; 73070; 73201; 73221; 73620; 80048; 80053; 80202; 82565; 82803; 83605; 83735; 84132; 85025; 85027; 85652; 86140; 87040; 87070; 87205; 87635; 88304; 94640; 97116; 97162; 99284; J0692; J2250; J2543; J2795; J3010; J3370; Q9967

== ENCOUNTER → 2022-11-28 14:34 | Outpatient (BNVA) | payer MEDICARE, MEDICAID, SELFPAY | PROVIDERS: PCP Family Medicine; Visit Provider Physician Assistant | DX: Z13.89 Encounter for screening for other disorder (principal) ==

== ENCOUNTER 2022-12-27 03:14 | Observation (INO) | payer MEDICARE, MEDICAID, SELFPAY ==
[2022-12-27] VITALS (8 sets, daily range): BP systolic 96–131; BP diastolic 43–68; PULSE 85–95; RESP 14–19; TEMP 36.1–37.2; O2SAT 94–100; BMI 25.6; BMI 24.0
--- NOTE | ~2022-12-27 | XR_ITS ---
EXAMINATION: XR FOOT, RIGHT CLINICAL INFORMATION: Bony erosion COMPARISON: 11/08/2022 TECHNIQUE: AP, lateral, and oblique views of the right foot. FINDINGS: Cannulated screw redemonstrated the first metatarsal head. The great toe proximal phalanx remains subluxed medially, with a neoarticulation along the lateral aspect of the metatarsal head. Healing fractures of the third, fourth and fifth metatarsal necks are stable in alignment with increased surrounding callus formation. There are degenerative changes at the tarsometatarsal joint, with midfoot collapse. XR/XR foot RT min 3V IMPRESSION: * No radiographic evidence of osteomyelitis. * Healing fractures of the third, fourth and fifth metatarsal necks. * Stable medial subluxation of the great toe proximal phalanx with neoarticulation along the lateral aspect of the metatarsal head.
--- NOTE | ~2022-12-27 | CT_ITS ---
EXAMINATION: CT ABDOMEN AND PELVIS WITHOUT CONTRAST CLINICAL INFORMATION: Abdominal pain, rule out colitis. COMPARISON: 12/01/2021 CT scan of the abdomen and pelvis. TECHNIQUE: Multidetector volumetric imaging was performed from the superior aspect of the liver through the pubic symphysis. Sagittal and coronal reformatted images were obtained on the technologist's workstation. Lack of intravenous and oral contrast limits visceral evaluation. This CT examination was performed using dose optimization techniques as appropriate, variously including the following: *Automated exposure control *Adjustment of mA and/or kV according to patient size (this includes techniques or standardized protocols for targeted exams where dose is matched to indication/reason for exam; i.e. extremities or head) *Use of iterative reconstruction technique DLP: 505 mGy-cm FINDINGS: LUNG BASES: Mild bibasilar opacities are seen, right greater than left. Mild thin-walled cysts are seen anteromedially in the right lower lobe. No pleural or pericardial effusions. LIVER, GALLBLADDER, AND BILIARY TREE: Diffuse decreased hepatic attenuation. Small high attenuation focus posteriorly in the right lobe measuring 1.0 cm (image 16, series 3). At the same level as focal fat anteromedially in segment 4 adjacent to the falciform ligament with benign features. Status post cholecystectomy. No biliary ductal dilatation. PANCREAS: Unremarkable. SPLEEN: Decreased size measuring 11.6 cm in cc dimension (previously 16.0 cm), image 37, series 5. ADRENAL GLANDS: Unremarkable. KIDNEYS AND URETERS: The kidneys are normal in size, shape, and attenuation. No hydronephrosis, hydroureter, or calculi seen. No perinephric stranding. BLADDER: Unremarkable. GASTROINTESTINAL TRACT: The stomach and small bowel unremarkable. The appendix shows a punctate appendicolith without other significant abnormality. The colon shows diffuse mild mural thickening and minimal pericolonic infiltrative changes extending from the cecum to the rectum. No evidence for perforation or abscess formation. No significant luminal narrowing. ABDOMINAL WALL: Generalized The level of the pelvis. Probable injection granulomas in the gluteal regions bilaterally. LYMPH NODES: No lymphadenopathy. VASCULAR: Unremarkable. PELVIC VISCERA: Unremarkable. OSSEOUS STRUCTURES: L5-S1 mild degenerative disc disease. No suspicious abnormality. Mild thoracolumbar dextroscoliosis. CT/CT abdomen pelvis wo IV con IMPRESSION: 1. Diffuse mild mural thickening and minimal pericolonic infiltrative changes extending from the cecum to the rectum suggesting acute mild infectious/inflammatory colitis. No evidence for perforation or abscess formation. 2. Hepatic steatosis. Small high attenuation focus in the right lobe is nonspecific, but demonstrates benign features and could represent a small hemangioma. 3. Interval resolution of previously seen splenomegaly. 4. Interval improvement in bibasilar pulmonary infiltrates with mild residual opacities but could represent residual mild infiltrates and/or chronic changes.
--- NOTE | 2022-12-27 04:25 | ED.GENADULT ---
HPI - General Adult General Chief complaint: General Medical Stated complaint: very weak Time Seen by Provider: 12/27/22 04:25 Source: patient Mode of arrival: ambulatory Limitations: no limitations History of Present Illness HPI narrative: Patient 47 years old with history of COPD steroid dependent on prednisone 5 mg daily, lupus, mixed connective tissue disorder, anxiety and panic attack, rheumatoid arthritis, peripheral artery disease on Eliquis comes here for feeling weak since discharge on 11/16/2022 for right olecranon bursitis patient received multiple antibiotics during stay since discharge patient has been having loose bowels which are foul smelling had history of C diff about a year ago feels like same with increased nausea. Mild diffuse abdominal cramping chills no fever also noticed more redness of the right ankle and foot area, no cough no fever Related Data Home Medications Medication Instructions Recorded Confirmed lorazepam 1 mg tablet 1 mg PO BID PRN Anxiety 08/15/20 11/08/22 pravastatin 40 mg tablet 40 mg PO BEDTIME 08/15/20 11/08/22 fluoxetine 40 mg capsule (Prozac) 40 mg PO DAILY 08/20/20 11/08/22 albuterol sulfate 2.5 mg/3 mL 2.5 mg inhalation Q6H PRN 08/31/20 11/08/22 (0.083 %) solution for nebulization Shortness Of Breath Or Wheezing albuterol sulfate 90 mcg/actuation 2 puff inhalation Q4H PRN 08/31/20 11/08/22 aerosol inhaler Shortness Of Breath Or Wheezing bupropion HCl 100 mg tablet,12 hr 100 mg PO BID 08/31/20 11/08/22 sustained-release prednisone 5 mg tablet 5 mg PO DAILY 08/31/20 11/08/22 nortriptyline 75 mg capsule 75 mg PO BEDTIME 04/18/21 11/08/22 apixaban 5 mg tablet 5 mg PO BID 10/21/21 11/08/22 fluticasone propionate 220 1 puff inhalation BID 10/21/21 11/08/22 mcg/actuation HFA aerosol inhaler (Flovent HFA) levothyroxine 175 mcg tablet 175 mcg PO DAILY 10/21/21 11/08/22 loratadine 10 mg tablet 10 mg PO DAILY 10/21/21 11/08/22 multivitamin 1 tab PO DAILY 10/21/21 11/08/22 nebulizer and compressor (Vios #1 ea 02/15/22 05/24/22 Aerosol Delivery System) famotidine 20 mg tablet 1 tab PO DAILY 05/24/22 11/08/22 [id number]-[id number] 2 tab PO DAILY PRN headache 11/08/22 11/08/22 50 mg-325 mg-40 mg tablet ferrous sulfate 325 mg (65 mg 1 tab PO DAILY 11/08/22 11/08/22 iron) tablet (FeroSul) sulfasalazine 500 mg tablet 1 tab PO BID 11/08/22 11/08/22 tiotropium bromide 2.5 2 puff inhalation DAILY 11/08/22 11/08/22 mcg/actuation mist for inhalation (Spiriva Respimat) tramadol 50 mg tablet 50 mg PO Q6H PRN pain 11/08/22 11/08/22 Previous Rx's Medication Instructions Recorded folic acid 1 mg tablet 1 mg PO DAILY #30 tabs 05/16/21 hydroxychloroquine 200 mg tablet 200 mg PO BID #60 tabs 05/16/21 amoxicillin 875 mg-potassium 1 tab PO BID #20 tabs 11/16/22 clavulanate 125 mg tablet fluconazole 150 mg tablet 150 mg PO Q3D 2 doses #2 tabs 11/16/22 (Diflucan) nystatin 100,000 unit/gram topical 1 appl topical BID #60 grams 11/16/22 cream oxycodone 5 mg tablet 10 mg PO Q4H PRN Pain, Moderate 11/16/22 (Pain Scale 4-6 #30 tabs Allergies Allergy/AdvReac Type Severity Reaction Status Date / Time clarithromycin Allergy Intermediate FACIAL Verified 11/28/22 15:05 [CLARITHROMYCIN] SWELLING/REDNESS, facial rash, facial rash, facial rash, facial rash Review of Systems Review of Systems: Yes all other systems are reviewed and are negative [facility] Past Medical History Medical History C. difficile colitis Cellulitis Cellulitis Cellulitis of right leg Charcot's joint of foot COPD (chronic obstructive pulmonary disease) CVA (cerebral vascular accident) Falling Fibromyalgia Hypothyroid Immunosuppression due to chronic steroid use Lupus Mixed connective tissue disease PAD (peripheral artery disease) Pneumonia due to COVID-19 virus Proteinuria Redness and swelling of lower leg Respiratory failure with hypoxia Rheumatoid arthritis Rheumatoid arthritis Secondary bacterial pneumonia Varicose veins of right lower extremity with inflammation Surgical History History of breast lump/mass excision History of bunionectomy History of cholecystectomy History of excision of mass History of partial hysterectomy Family History Family History Father No problems noted. Mother Lung cancer Social History Social History Household Members: Family Household Members Other:: 3 Housing: Apartment Do you presently have visiting nurse or other home services: Yes Alcohol intake: never Patient Tobacco Use Status: Current everyday Tobacco user Tobacco use type: Cigarette Cigarette Packs Per Day: 0.5 Cigarettes Per Day: 10.0 Years Smoked: 30 Second Hand Smoke Exposure: No Substance Use Type: Marijuana Advance Directives: Yes Advance Directives on File: Yes Advance Directives Date on File: 11/26/21 service: No Current occupational status: unemployed and disabled Current occupation: right hand dominant Physical Exam ED Vital Signs: Vital Signs - 24 hr 12/27/22 03:34 12/27/22 04:00 12/27/22 05:03 Temperature 97.7 F 97.6 F Pulse Rate 95 92 88 Respiratory Rate 19 16 16 Blood Pressure 101/51 L 100/43 L 102/47 L Pulse Oximetry 100 100 100 Oxygen Delivery Method Room Air Room Air Room Air 12/27/22 05:53 Temperature Pulse Rate 85 Respiratory Rate 14 Blood Pressure 102/46 L Pulse Oximetry 97 Oxygen Delivery Method Room Air BMI result Body Mass Index 25.6 Appearance: Alert. Oriented X3. No acute distress. Eyes: PERRLA, No Nystagmus ENT: Pharynx normal. Oral Mucosa moist Neck: Normal inspection. Neck supple. CVS: Normal heart rate and rhythm. Pulses normal. Respiratory: No respiratory distress. Equal air entry bilateral, no wheezing/rales/rhonchi Abdomen: Soft and nontender. Bowel sounds are present, no mass palpable, no CVA tenderness Skin: Skin warm and dry. Normal skin color. Normal skin turgor. Extremities: 1+ lower extremity edema. No calf tenderness chronic changes bilateral feet right more swollen than left Neuro: Oriented X 3. No motor deficit. No sensory deficit.No cerebellar signs , cranial nerves II-XII intact Medications Administered Generic Name Dose Route Start Last Admin Trade Name Freq PRN Reason Stop Dose Admin Potassium Chloride 10 meq in 100 mls @ 100 mls/hr 12/27/22 06:45 12/27/22 06:41 Potassium Chloride/H20 IV 12/27/22 08:44 100 mls/hr Q1H [place] Administration Discontinued Medications Generic Name Dose Route Start Last Admin Trade Name Freq PRN Reason Stop Dose Admin Sodium Chloride 1,000 mls @ 999 mls/hr 12/27/22 04:34 12/27/22 06:36 Ns IV 12/27/22 05:34 Infused .Q1H1M ONE Infusion Ondansetron HCl 4 mg 12/27/22 04:34 12/27/22 05:01 Ondansetron Hcl 4 Mg/2 Ml Vial IVPUSH 12/27/22 04:35 4 mg ONCE ONE Administration Vancomycin HCl 250 mg 12/27/22 04:37 12/27/22 05:00 Vancomycin Hcl 125 Mg Capsule PO 12/27/22 04:38 250 mg ONCE ONE Administration Medical Decision Making Medical Decision Making [facility] Narrative: Patient with chronic diarrhea with history of C diff colitis likely the cause for weakness and leukocytosis. Patient on chronic prednisone also patient's lactate level is 2.4 will not be able to give IV antibiotic as it is contraindicated with C diff colitis was given p.o. vancomycin will change to Fidaxomicin per hospitalist request as patient has recurrent episode of colitis patient lactic acidosis could be from dehydration and leukocytosis could be contributed from prednisone use patient clinically is not in septic shock Consult Healthcare Provider Management of the patient was discussed with: Hospitalist Lab Data [facility] Lab Attestation statement: I reviewed the patient's lab results. 12/27/22 04:45 12/27/22 04:45 Labs: Lab Results 12/27/22 12/27/22 12/27/22 Range/Units 04:03 04:45 04:45 WBC 19.5 H (4.8-10.8) X10*3/uL RBC 5.37 D (4.20-5.50) X10*6/uL Hgb 12.4 D (12.0-16.0) g/dl Hct 38.5 (37.0-47.0) % MCV 71.7 L (80.0-98.0) fL MCH 23.1 L (27.0-33.0) pg MCHC 32.2 (31.0-35.0) g/dl RDW 15.3 (11.0-16.0) % Plt Count 337 (160-400) X10*3/uL MPV 9.1 L (9.4-12.3) fL Immature Gran % (Auto) 1.0 H (0.0-0.4) % Neut % (Auto) 79.0 H (45-73) % Lymph % (Auto) 10.0 L (20-40) % [place] % (Auto) 8.6 (2-11) % Eos % (Auto) 1.0 (0-4) % Baso % (Auto) 0.4 (0-2) % Lymph # (Auto) 2.0 (1.2-4.9) X10*3/uL [place] # (Auto) 1.7 H (0.1-1.2) X10*3/uL Eos # (Auto) 0.2 (0.0-0.4) X10*3/uL Baso # (Auto) 0.1 (0.0-0.2) X10*3/uL Abs Immat Gran (auto) 0.20 H (0.00-0.03) X10*3/uL Absolute Neuts (auto) 15.4 H (2.0-8.3) x10*3/uL Absolute Nucleated RBC 0.000 (0.0-0.012) X10*3/uL Nucleated RBC % (auto) 0.0 (0.0-0.2) /100WBC Smear Tech's Comments VERIFIED ESR 2 (0-20) MM/HR Sodium (135-145) mmol/L Potassium (3.3-5.1) mmol/L Chloride (96-108) mmol/L Carbon Dioxide (22-29) mmol/L Anion Gap (12-20) BUN (9-16) mg/dL Creatinine (0.5-1.4) mg/dL Estim Creat Clear Calc Estimated GFR Random Glucose (60-115) mg/dL Lactic Acid (0.5-2.0) mmol/L Calcium (8.4-10.2) mg/dL Total Bilirubin (0.0-1.0) mg/dL AST (5-31) U/L ALT (0-31) U/L Alkaline Phosphatase (39-117) U/L C-Reactive Protein (< or = 0.50) mg/dL Total Protein (6.5-8.0) g/dL Albumin (3.5-5.0) g/dL Influenza Type A (PCR) NEGATIVE (Negative) Influenza Type B (PCR) NEGATIVE (Negative) RSV RNA Qual (PCR) NEGATIVE (Negative) SARS-CoV-2 RNA (RT-PCR) NEGATIVE (Negative) 12/27/22 12/27/22 Range/Units 04:45 04:46 WBC (4.8-10.8) X10*3/uL RBC (4.20-5.50) X10*6/uL Hgb (12.0-16.0) g/dl Hct (37.0-47.0) % MCV (80.0-98.0) fL MCH (27.0-33.0) pg MCHC (31.0-35.0) g/dl RDW (11.0-16.0) % Plt Count (160-400) X10*3/uL MPV (9.4-12.3) fL Immature Gran % (Auto) (0.0-0.4) % Neut % (Auto) (45-73) % Lymph % (Auto) (20-40) % [place] % (Auto) (2-11) % Eos % (Auto) (0-4) % Baso % (Auto) (0-2) % Lymph # (Auto) (1.2-4.9) X10*3/uL [place] # (Auto) (0.1-1.2) X10*3/uL Eos # (Auto) (0.0-0.4) X10*3/uL Baso # (Auto) (0.0-0.2) X10*3/uL Abs Immat Gran (auto) (0.00-0.03) X10*3/uL Absolute Neuts (auto) (2.0-8.3) x10*3/uL Absolute Nucleated RBC (0.0-0.012) X10*3/uL Nucleated RBC % (auto) (0.0-0.2) /100WBC Smear Tech's Comments ESR (0-20) MM/HR Sodium 136 (135-145) mmol/L Potassium 2.9 L D (3.3-5.1) mmol/L Chloride 98 (96-108) mmol/L Carbon Dioxide 26 (22-29) mmol/L Anion Gap 15 (12-20) BUN 15 (9-16) mg/dL Creatinine 0.92 (0.5-1.4) mg/dL Estim Creat Clear Calc 67.6 Estimated GFR > 60 Random Glucose 105 (60-115) mg/dL Lactic Acid 2.4 H* (0.5-2.0) mmol/L Calcium 7.2 L D (8.4-10.2) mg/dL Total Bilirubin 0.3 (0.0-1.0) mg/dL AST 31 (5-31) U/L ALT 30 (0-31) U/L Alkaline Phosphatase 142 H (39-117) U/L C-Reactive Protein 8.15 H (< or = 0.50) mg/dL Total Protein 2.9 L (6.5-8.0) g/dL Albumin 1.5 L (3.5-5.0) g/dL Influenza Type A (PCR) (Negative) Influenza Type B (PCR) (Negative) RSV RNA Qual (PCR) (Negative) SARS-CoV-2 RNA (RT-PCR) (Negative) Discharge Plan Discharge Clinical Impression: C. difficile colitis, Acute hypokalemia Patient Disposition: Admitted As Inpatient
[2022-12-27 04:43] LABS: Influenza A PCR NEGATIVE (Negative); Influenza B PCR NEGATIVE (Negative); Resp Syncy Virus RNA Qual PCR NEGATIVE (Negative); SARS COV2 PCR INHOUSE NEGATIVE (Negative)
[2022-12-27] MEDS: 0.9 % Sodium Chloride 1,000 ML 999 ML IV (04:50)
[2022-12-27] MEDS: vancomycin HCL 125 MG CAPSULE 250 MG PO (05:00)
[2022-12-27] MEDS: ondansetron HCL 4 MG/2 ML VIAL IVPUSH (05:01)
[2022-12-27 05:04] LABS: Basophils Absolute Auto 0.1 X10*3/uL (0.0-0.2); Basophils Percent Auto 0.4 % (0-2); Eosinophils Absolute Auto 0.2 X10*3/uL (0.0-0.4); Hematocrit 38.5 % (37.0-47.0); Hemoglobin 12.4 g/dl (12.0-16.0); MANUAL DIFF FLAG SCAN; Mean Corpuscular HGB Conc 32.2 g/dl (31.0-35.0); Mean Corpuscular Hemoglobin 23.1 pg (27.0-33.0); Mean Corpuscular Volume 71.7 fL (80.0-98.0); Mean Platelet Volume 9.1 fL (9.4-12.3); Monocytes Absolute Auto 1.7 X10*3/uL (0.1-1.2); Monocytes Percent Auto 8.6 % (2-11); Neutrophils Absolute Auto 15.4 x10*3/uL (2.0-8.3); Platelet Count 337 X10*3/uL (160-400); Red Blood Count 5.37 X10*6/uL (4.20-5.50); Red Cell Distribution Width 15.3 % (11.0-16.0); SCAN SMEAR FLAG 1; White Blood Count 19.5 X10*3/uL (4.8-10.8)
[2022-12-27 05:31] LABS: Alanine Aminotransferase 30 U/L (0-31); Albumin Level 1.5 g/dL (3.5-5.0); Alkaline Phosphatase 142 U/L (39-117); Anion Gap 15 (12-20); Aspartate Amino Transferase 31 U/L (5-31); Bilirubin Total 0.3 mg/dL (0.0-1.0); Blood Urea Nitrogen 15 mg/dL (9-16); C Reactive Protein 8.15 mg/dL (< or = 0.50); Calcium 7.2 mg/dL (8.4-10.2); Carbon Dioxide 26 mmol/L (22-29); Chloride 98 mmol/L (96-108); Creatinine Clr Calc Pharmacy 67.6; Estimated Glomerular Filt Rate > 60; Glucose Random 105 mg/dL (60-115); Potassium 2.9 mmol/L (3.3-5.1); SLIDE REVIEW VERIFIED; Sodium 136 mmol/L (135-145); Total Protein 2.9 g/dL (6.5-8.0)
[2022-12-27 05:33] LABS: Lactic Acid 2.4 mmol/L (0.5-2.0)
[2022-12-27 05:42] LABS: Erythrocyte Sedimentation Rate 2 MM/HR (0-20)
[2022-12-27] MEDS: Potassium Chloride/H20 10 MEQ/100 ML PIGGYBACK 100 MEQ IV ×2 (06:41→07:45)
--- NOTE | 2022-12-27 06:41 | ECG_ITS ---
Test Reason : hypokalemia Blood Pressure : / mmHG Vent. Rate : 086 BPM Atrial Rate : 086 BPM P-R Int : 150 ms QRS Dur : 116 ms QT Int : 526 ms P-R-T Axes : 043 -64 049 degrees QTc Int : 629 ms Normal sinus rhythm Left anterior fascicular block Prolonged QT Abnormal ECG When compared with ECG of 23-MAY-2020 16:52, Left anterior fascicular block is now Present QT has lengthened Referred By: Devin Cox Electronically Signed By:RANDY MORAN MD
[2022-12-27] MEDS: Potassium Bicarbonate/Cit AC 25 MEQ TABLET.EFF PO (06:49)
[2022-12-27 07:01] LABS: Reflex Lactate? Lactic Acid Added
--- NOTE | 2022-12-27 07:39 | PC.NURSE ---
called pharmacy for med not available in pyxis
[2022-12-27] MEDS: Fidaxomicin 200 MG TABLET PO (08:19)
--- NOTE | 2022-12-27 09:17 | PHA.MEDREC ---
Pharmacy Consult ? Medication Reconciliation Pharmacy has completed the medication reconciliation Patient confirmed all medications. Reports not longer on Flovent. Patient also reported she has been taking both prednisolone and prednisone at home. Ibis Min, PharmD
--- NOTE | 2022-12-27 11:58 | P.HPHOSP_ITS ---
History of Present Illness Date of Service: 12/27/22 Attending physician on admission: Richard Garner Chief Complaint: Diarrhea, generalized weakness Pt is a 47-year-old female with a PMH significant for?COPD steroid dependent, lupus, rheumatoid arthritis, CVA, mixed connective tissue disorder, anxiety and panic attacks, PAD on Eliquis, and Charcot foot who presents to the ED with generalized weakness and foul-smelling diarrhea x1 month. Patient states she began having diarrhea and weakness?since the time of last discharge from the hospital on 11/16/2022. Patient was here for acute right elbow cellulitis and found to have chronic bursitis without abscess. Inpatient she was treated with vanco and Zosyn and discharged with a 10-day course of Augmentin 875 mg b.i.d.. Patient notes that she has at least 2 episodes of foul-smelling diarrhea per day, sometimes with more. Pt has a history of C diff infection on 11/30/2021 and she states her current experiencing similar to that one. Patient has had decreased p.o. intake both liquids and solids during this time, has chills but no fever, nausea but no vomiting, and occasional abdominal pain. Patient complains of chronic right foot pain, but notes no new sores or discharge from chronic wounds. In the ED labs were significant for leukocytosis of 19.5, lactic acid of 2.4 with repeat of 1.0, ESR WNL, C reactive protein of 8.15. Patient is negative for influenza type A and B, RSV, COVID. C diff results pending. XR of foot showed healing fractures of 3rd, 4th, and 5th metatarsal necks with no radiographic evidence of osteomyelitis. CT?of abdomen pelvis found no evidence of perforation or abscess formation but with results suggesting acute mild infectious/inflammatory colitis. EKG demonstrated normal sinus rhythm with prolonged QTc of 629 with left anterior fascicular block. Pt was treated with IVF, ondansetron, vanco, and fidaxomicin. Pt will be admitted to observation for treatment further evaluation of possible C diff infection. Review of Systems Review of Systems: Weakness and foul-smelling diarrhea x1 month Chills, nausea, occasional abdominal pain Decreased p.o. intake of liquids and solids No change to chronic SOB No fever, vomiting Denies chest pain/pressure Yes all other systems are reviewed and are negative [facility] Medical History C. difficile colitis Cellulitis Cellulitis Cellulitis of right leg Charcot's joint of foot COPD (chronic obstructive pulmonary disease) CVA (cerebral vascular accident) Falling Fibromyalgia Hypothyroid Immunosuppression due to chronic steroid use Lupus Mixed connective tissue disease PAD (peripheral artery disease) Pneumonia due to COVID-19 virus Proteinuria Redness and swelling of lower leg Respiratory failure with hypoxia Rheumatoid arthritis Rheumatoid arthritis Secondary bacterial pneumonia Varicose veins of right lower extremity with inflammation Family History Father No problems noted. Mother Lung cancer Surgical History History of breast lump/mass excision History of bunionectomy History of cholecystectomy History of excision of mass History of partial hysterectomy Social History Household Members: Family Household Members Other:: 3 Housing: Apartment Do you presently have visiting nurse or other home services: Yes Alcohol intake: never Patient Tobacco Use Status: Current everyday Tobacco user Tobacco use type: Cigarette Cigarette Packs Per Day: 0.5 Cigarettes Per Day: 10.0 Years Smoked: 30 Smoked in Last 30 Days: Yes Second Hand Smoke Exposure: No Use of substances other than those prescribed or required for medical reasons: Yes Substance Use Type: Marijuana Advance Directives: Yes Advance Directives on File: Yes Advance Directives Date on File: 11/26/21 service: No Current occupational status: unemployed and disabled Current occupation: right hand dominant Meds Allergies Allergy/AdvReac Type Severity Reaction Status Date / Time clarithromycin Allergy Intermediate FACIAL Verified 11/28/22 15:05 [CLARITHROMYCIN] SWELLING/REDNESS, facial rash, facial rash, facial rash, facial rash Home Medications Medication Instructions Recorded Confirmed Last Taken Type lorazepam 1 mg tablet 1 mg PO BID PRN Anxiety 08/15/20 12/27/22 08/30/20 History pravastatin 40 mg tablet 40 mg PO BEDTIME 08/15/20 12/27/22 12/26/22 History albuterol sulfate 2.5 mg/3 mL 2.5 mg inhalation Q6H PRN 08/31/20 12/27/22 08/30/20 History (0.083 %) solution for nebulization Shortness Of Breath Or Wheezing albuterol sulfate 90 mcg/actuation 2 puff inhalation Q4H PRN 08/31/20 12/27/22 08/30/20 History aerosol inhaler Shortness Of Breath Or Wheezing bupropion HCl 100 mg tablet,12 hr 100 mg PO BID 08/31/20 12/27/22 12/26/22 History sustained-release prednisone 5 mg tablet 5 mg PO DAILY 08/31/20 12/27/22 12/26/22 History nortriptyline 75 mg capsule 75 mg PO BEDTIME 04/18/21 12/27/22 12/26/22 History apixaban 5 mg tablet 5 mg PO BID 10/21/21 12/27/22 12/26/22 History levothyroxine 175 mcg tablet 175 mcg PO DAILY 10/21/21 12/27/22 12/26/22 History loratadine 10 mg tablet 10 mg PO DAILY 10/21/21 12/27/22 12/26/22 History multivitamin 1 tab PO DAILY 10/21/21 12/27/22 12/26/22 History nebulizer and compressor (Vios #1 ea 02/15/22 05/24/22 Unknown History Aerosol Delivery System) famotidine 20 mg tablet 1 tab PO DAILY 05/24/22 12/27/22 12/26/22 History yvqhfcclwm-fiflfacvngeoj-iupscrmj 2 tab PO DAILY PRN headache 11/08/22 12/27/22 Unknown History 50 mg-325 mg-40 mg tablet ferrous sulfate 325 mg (65 mg 1 tab PO DAILY 11/08/22 12/27/22 12/26/22 History iron) tablet (FeroSul) sulfasalazine 500 mg tablet 1 tab PO BID 11/08/22 12/27/22 12/26/22 History tiotropium bromide 2.5 2 puff inhalation DAILY 11/08/22 12/27/22 12/26/22 History mcg/actuation mist for inhalation (Spiriva Respimat) tramadol 50 mg tablet 50 mg PO Q6H PRN pain 11/08/22 12/27/22 Unknown History fluoxetine 20 mg capsule 2 cap PO DAILY 12/27/22 12/27/22 12/26/22 History prednisolone 5 mg tablet 1 tab PO DAILY 02/08/1012/27/22 12/26/22 History (Millipred) Physical Exam Vital Signs and Narrative: Vital Signs: Last Vital Signs Temp 97.0 F 12/27/22 07:08 Pulse 91 12/27/22 07:08 Resp 15 12/27/22 07:08 BP 101/68 12/27/22 07:08 Pulse Ox 95 12/27/22 07:08 O2 Del Method 12/27/22 07:08 BMI result Body Mass Index 25.6 Constitutional: Alert, in no acute distress. Mental Status: Oriented to person, place and time. Eyes: Pupils are equal, round, and reactive to light. Ear, Nose, and Throat: Oropharynx clear, mucous membranes moist. Ears and nose without deformities. Trachea midline. Respiratory: Diffuse inspiratory and expiratory wheezing throughout. Cardiovascular: S1, S2 regular. No murmurs, rubs, or gallops. Gastrointestinal: Abdomen soft, non-tender, non-distended. Normal bowel sounds. Neurologic: Cranial nerves II-XII are grossly intact. No focal neurological deficits. Moves all extremities spontaneously. Skin: No rashes or lesions noted. Musculoskeletal: No cyanosis or clubbing. Extremities: Right Charcot's foot noted with no evidence of acute infection. As pictured below. Jackie chronic wounds with no signs acute infection. As pictured below. No lower leg edema. Psychiatric: Normal mood and affect. Results Labs 12/27/22 04:45 12/27/22 04:45 Labs: Laboratory Results - last 24 hr 12/27/22 12/27/22 12/27/22 04:03 04:45 04:45 MCV 71.7 L MCH 23.1 L MCHC 32.2 RDW 15.3 Plt Count 337 MPV 9.1 L Immature Gran % (Auto) 1.0 H Neut % (Auto) 79.0 H Lymph % (Auto) 10.0 L [place] % (Auto) 8.6 Eos % (Auto) 1.0 Baso % (Auto) 0.4 Lymph # (Auto) 2.0 [place] # (Auto) 1.7 H Eos # (Auto) 0.2 Baso # (Auto) 0.1 Abs Immat Gran (auto) 0.20 H Absolute Neuts (auto) 15.4 H Absolute Nucleated RBC 0.000 Nucleated RBC % (auto) 0.0 Smear Tech's Comments VERIFIED ESR 2 Anion Gap Estim Creat Clear Calc Estimated GFR Random Glucose Lactic Acid Lactic Acid F/U @ 2Hr Calcium Total Bilirubin AST ALT Alkaline Phosphatase C-Reactive Protein Total Protein Albumin Influenza Type A (PCR) NEGATIVE Influenza Type B (PCR) NEGATIVE RSV RNA Qual (PCR) NEGATIVE SARS-CoV-2 RNA (RT-PCR) NEGATIVE 12/27/22 12/27/22 12/27/22 04:45 04:46 07:28 MCV MCH MCHC RDW Plt Count MPV Immature Gran % (Auto) Neut % (Auto) Lymph % (Auto) [place] % (Auto) Eos % (Auto) Baso % (Auto) Lymph # (Auto) [place] # (Auto) Eos # (Auto) Baso # (Auto) Abs Immat Gran (auto) Absolute Neuts (auto) Absolute Nucleated RBC Nucleated RBC % (auto) Smear Tech's Comments ESR Anion Gap 15 Estim Creat Clear Calc 67.6 Estimated GFR > 60 Random Glucose 105 Lactic Acid 2.4 H* Lactic Acid F/U @ 2Hr 1.0 Calcium 7.2 L D Total Bilirubin 0.3 AST 31 ALT 30 Alkaline Phosphatase 142 H C-Reactive Protein 8.15 H Total Protein 2.9 L Albumin 1.5 L Influenza Type A (PCR) Influenza Type B (PCR) RSV RNA Qual (PCR) SARS-CoV-2 RNA (RT-PCR) Imaging Radiologist's Impressions: Impressions Foot X-Ray 12/27/22 05:35 IMPRESSION: * No radiographic evidence of osteomyelitis. * Healing fractures of the third, fourth and fifth metatarsal necks. * Stable medial subluxation of the great toe proximal phalanx with neoarticulation along the lateral aspect of the metatarsal head. Abdomen/Pelvis CT 12/27/22 08:30 IMPRESSION: 1. Diffuse mild mural thickening and minimal pericolonic infiltrative changes extending from the cecum to the rectum suggesting acute mild infectious/inflammatory colitis. No evidence for perforation or abscess formation. 2. Hepatic steatosis. Small high attenuation focus in the right lobe is nonspecific, but demonstrates benign features and could represent a small hemangioma. 3. Interval resolution of previously seen splenomegaly. 4. Interval improvement in bibasilar pulmonary infiltrates with mild residual opacities but could represent residual mild infiltrates and/or chronic changes. Assessment and Plan (1) Acute hypokalemia: Status: Acute (2) Diarrhea: Status: Acute (3) Generalized weakness: Status: Acute Plan Pt is a 47-year-old female with a PMH significant for?COPD steroid dependent, lupus, rheumatoid arthritis, CVA, mixed connective tissue disorder, anxiety and panic attacks, PAD on Eliquis, and Charcot foot who presents to the ED with generalized weakness and foul-smelling diarrhea x1 month. Pt was treated with IVF, ondansetron, and fidaxomicin. Pt will be admitted to observation for treatment further evaluation of possible C diff infection. Diarrhea Etiology unclear, CT with evidence of colitis, patient with history of C diff infection recently on antibiotics C-Diff sample not yet collected Patient received p.o. vanco and fidaxomicin in the ED Continue fidaxomicin, pending C diff results IVF ID consult, pending C diff results Hypokalemia Potassium 2.9 at time of presentation Patient received supplemental potassium chloride in the ED Check potassium, magnesium, replenish as necessary Acute lactic acidosis, resolved Patient with lactic acid of 2.4 at time of presentation Repeat 1.0 after IVF Likely secondary to dehydration Continue IVF COPD Does not appear to be in acute exacerbation at this time, patient not hypoxic, not on supplemental O2 Patient with diffuse inspiratory and expiratory wheezing on examination Continue home inhalers Continue prednisone Charcot's foot No sign of acute infection F/U with outpatient care PAD Continue Eliquis CVA Continue Eliquis Continue statin Hypothyroidism Continue levothyroxine Anxiety Continue home meds Full Code Attending:?Dr. Garner DVT Prophylaxis: On Eliquis Pt was treated with IVF, ondansetron, and fidaxomicin. Pt will be admitted to observation for treatment further evaluation of possible C diff infection. Time Spent With Patient Time: Total time managing care of this patient today ____ minutes. Quality Stroke Does the patient have a stroke diagnosis?: No VTE Prior VTE?: No VTE Risk Level:: Medical - moderate - high VTE Device Contraindication: Treatment Not Indicated VTE Drug Contraindication: N/A - Med Ordered
[2022-12-27] MEDS: Lactated Ringers 1,000 ML 100 ML IVCONT ×2 (14:46→23:47)
[2022-12-27 15:43] LABS: Magnesium 1.6 mg/dL (1.6-2.6); Potassium 3.3 mmol/L (3.3-5.1)
--- NOTE | 2022-12-27 16:03 | MHC.EDTECH ---
this pct assumed care of pt at 1500 ,pt had an incontinent episode of loose stool ,care given ,barrier cream apply to bottom .
[2022-12-27] MEDS: Acetaminophen 325 MG TABLET 650 MG PO (18:23)
[2022-12-27] MEDS: LORazepam 1 MG TABLET PO (18:24)
[2022-12-27] MEDS: Nicotine 21 MG PATCH.TD24 TRANSDERMA (19:43)
[2022-12-27 20:11] LABS: CDiff Gene PCR POSITIVE (Negative)
[2022-12-27] MEDS: sulfaSALAzine 500 MG TABLET PO (20:15)
[2022-12-27] MEDS: Nortriptyline HCl 25 MG CAPSULE 75 MG PO (20:15)
[2022-12-27] MEDS: Hydroxychloroquine Sulfate 200 MG TABLET PO (20:15)
[2022-12-27] MEDS: Apixaban 5 MG TABLET PO (20:15)
[2022-12-27] MEDS: Pravastatin Sodium 40 MG TABLET PO (20:15)
[2022-12-27 21:51] LABS: CDiff Toxin Negative (Negative)
[2022-12-27 21:53] LABS: CDIFF Internal ctrl Dots and bkg OK (V)
[2022-12-28 03:19] VITALS: BP 102/55; PULSE 95; RESP 17; TEMP 36.1; O2SAT 95
[2022-12-28 07:13] LABS: Hematocrit 38.3 % (37.0-47.0); Hemoglobin 11.8 g/dl (12.0-16.0); Mean Corpuscular HGB Conc 30.8 g/dl (31.0-35.0); Mean Corpuscular Hemoglobin 23.2 pg (27.0-33.0); Mean Corpuscular Volume 75.4 fL (80.0-98.0); Mean Platelet Volume 9.7 fL (9.4-12.3); Platelet Count 287 X10*3/uL (160-400); Red Blood Count 5.08 X10*6/uL (4.20-5.50); Red Cell Distribution Width 15.2 % (11.0-16.0); White Blood Count 20.5 X10*3/uL (4.8-10.8)
[2022-12-28 07:49] VITALS: BP 108/61; PULSE 93; RESP 18; TEMP 36; O2SAT 97
[2022-12-28] MEDS: FLUoxetine HCl 20 MG CAPSULE 40 MG PO (07:56)
[2022-12-28] MEDS: Famotidine 20 MG TABLET PO (07:56)
[2022-12-28] MEDS: Hydroxychloroquine Sulfate 200 MG TABLET PO (07:56)
[2022-12-28] MEDS: sulfaSALAzine 500 MG TABLET PO (07:56)
[2022-12-28] MEDS: Levothyroxine Sodium 175 MCG TABLET PO (07:57)
[2022-12-28] MEDS: buPROPion HCl XL 150 MG TAB.ER.24H PO (07:57)
[2022-12-28] MEDS: predniSONE 5 MG TABLET PO (07:57)
[2022-12-28] MEDS: Apixaban 5 MG TABLET PO ×2 (07:57→20:53)
[2022-12-28] MEDS: Folic Acid 1 MG TABLET PO (07:57)
[2022-12-28] MEDS: Ferrous Sulfate 324 MG TABLET.DR PO (07:58)
[2022-12-28] MEDS: Nicotine 21 MG PATCH.TD24 TRANSDERMA (07:58)
[2022-12-28] MEDS: Multivitamin TABLET 1 TAB PO (07:58)
[2022-12-28] MEDS: Loratadine 10 MG TABLET PO (07:59)
[2022-12-28 08:07] LABS: Anion Gap 10 (12-20); Blood Urea Nitrogen 12 mg/dL (9-16); Carbon Dioxide 28 mmol/L (22-29); Chloride 101 mmol/L (96-108); Estimated Glomerular Filt Rate > 60; Potassium 3.3 mmol/L (3.3-5.1); Sodium 136 mmol/L (135-145)
[2022-12-28 08:19] VITALS: PULSE 93; RESP 18; O2SAT 97
[2022-12-28 08:22] LABS: Glucose Random 58 mg/dL (60-115)
[2022-12-28 08:54] VITALS: PULSE 93
[2022-12-28 09:17] LABS: Glucose, Whole Blood 103 mg/dL (60-115)
--- NOTE | 2022-12-28 09:17 | MHC.CM.PN ---
PATIENT LIVES WITH HER ADULT CHILDREN. SHE USES A WALKER IN THE HOME. NO VNA AT THIS TIME. 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 ASKS FOR A REFERRAL TO [facility], NOW PLACED. HCP ON FILE AND VERIFIED. GONZALEZ 12/28 IN CHART
[2022-12-28] MEDS: vancomycin HCL 125 MG CAPSULE PO ×3 (09:30→20:53)
[2022-12-28] MEDS: Lactated Ringers 1,000 ML 100 ML IVCONT (11:58)
--- NOTE | 2022-12-28 12:16 | P.PNIM_ITS ---
Subjective Subjective Date of Service: 12/28/22 Interval History: Complaining of persistent diarrhea had 3 bowel movements since admission , complaining of nausea, denies abdominal pain, noted to have low blood sugar 58 this morning, denies fever, no chills, denies urinary symptoms, no headache, no dizziness, no sweating, no lightheadedness. Review of Systems Review of Systems: Yes all other systems are reviewed and are negative Physical Exam Vital Signs: Vital Signs: Last Vital Signs Temp 96.8 F 12/28/22 07:49 Pulse 93 12/28/22 08:54 Resp 18 12/28/22 08:19 BP 108/61 12/28/22 07:49 Pulse Ox 97 12/28/22 07:49 O2 Del Method 12/28/22 07:49 BMI result Body Mass Index 24.0 Const: Other: General resting comfortably, no acute distress. Neck is supple no JVD. CVS regular rate rhythm, Respiratory lungs clear to auscultation, no respiratory distress, no wheeze, no rhonchi. Gastrointestinal abdomen soft, nontender, bowel sounds audible, no guarding , no rigidity. Extremities no edema. Neuro nonfocal Skin no rash Psych appropriate affect Objective Data Active Medications Acetaminophen (Acetaminophen 325 Mg Tablet) 650 mg PO Q6H PRN PRN Reason: Pain, Mild (Pain Scale 1-3) Last Admin: 12/27/22 18:23 Dose: 650 mg Documented By: TOMMY Acetaminophen/Butalbital/Caffeine (Butalb/Acetamin/Caff 50/325/40 Tablet) 2 tab PO DAILY PRN PRN Reason: headache Albuterol Sulfate (Albuterol Sulfate (0.083%) 2.5 Mg/3 Ml Vial.Neb) 2.5 mg INHALE Q6H PRN PRN Reason: Shortness Of Breath Or Wheezing Albuterol Sulfate (Albuterol Sulfate 90 Mcg 8 Gm Inhaler) 2 puff INHALE Q4H PRN PRN Reason: Shortness Of Breath Or Wheezing Apixaban (Apixaban 5 Mg Tablet) 5 mg PO BID [facility] Last Admin: 12/28/22 07:57 Dose: 5 mg Documented By: JEAN PAUL Bupropion HCl (Bupropion Hcl Xl 150 Mg Tab.Er.24h) 150 mg PO DAILY [facility] Last Admin: 12/28/22 07:57 Dose: 150 mg Documented By: JEAN PAUL Famotidine (Famotidine 20 Mg Tablet) 20 mg PO DAILY [facility] Last Admin: 12/28/22 07:56 Dose: 20 mg Documented By: JEAN PAUL Ferrous Sulfate (Ferrous Sulfate 324 Mg Tablet.Dr) 324 mg PO DAILY [facility] Last Admin: 12/28/22 07:58 Dose: 324 mg Documented By: JEAN PAUL Fluoxetine HCl (Fluoxetine Hcl 20 Mg Capsule) 40 mg PO DAILY [facility] Last Admin: 12/28/22 07:56 Dose: 40 mg Documented By: JEAN PAUL Folic Acid (Folic Acid 1 Mg Tablet) 1 mg PO DAILY [facility] Last Admin: 12/28/22 07:57 Dose: 1 mg Documented By: JEAN PAUL Hydroxychloroquine Sulfate (Hydroxychloroquine Sulfate 200 Mg Tablet) 200 mg PO BID [facility] Last Admin: 12/28/22 07:56 Dose: 200 mg Documented By: JEAN PAUL Lactated Ringer's (Lr) 1,000 mls @ 100 mls/hr IVCONT .Q10H [facility] Last Admin: 12/28/22 11:58 Dose: 100 mls/hr Documented By: JEAN PAUL Levothyroxine Sodium (Levothyroxine Sodium 175 Mcg Tablet) 175 mcg PO DAILY [facility] Last Admin: 12/28/22 07:57 Dose: 175 mcg Documented By: JEAN PAUL Loratadine (Loratadine 10 Mg Tablet) 10 mg PO DAILY [facility] Last Admin: 12/28/22 07:59 Dose: 10 mg Documented By: JEAN PAUL Lorazepam (Lorazepam 1 Mg Tablet) 1 mg PO BID PRN PRN Reason: Anxiety Last Admin: 12/27/22 18:24 Dose: 1 mg Documented By: MARLEN-RIVMICHAEL Multivitamins/Vitamin C (Multivitamin Tablet) 1 tab PO DAILY [facility] Last Admin: 12/28/22 07:58 Dose: 1 tab Documented By: JEAN PAUL Nicotine (Nicotine 21 Mg Patch.Td24) 21 mg TRANSDERMA DAILY [facility] Last Admin: 12/28/22 07:58 Dose: 21 mg Documented By: JEAN PAUL Nortriptyline HCl (Nortriptyline Hcl 25 Mg Capsule) 75 mg PO BEDTIME [facility] Last Admin: 12/27/22 20:15 Dose: 75 mg Documented By: VERNA Pravastatin Sodium (Pravastatin Sodium 40 Mg Tablet) 40 mg PO BEDTIME [facility] Last Admin: 12/27/22 20:15 Dose: 40 mg Documented By: VERNA Prednisone (Prednisone 5 Mg Tablet) 5 mg PO DAILY [facility] Last Admin: 12/28/22 07:57 Dose: 5 mg Documented By: JEAN PAUL Sodium Chloride (0.9 % Sodium Chloride Flush 3 Ml Syringe) 3 ml IVFLUSH QSHIFT [facility] Last Admin: 12/28/22 08:03 Dose: Not Given Documented By: JEAN PAUL Non-Admin Reason: IV Running Sulfasalazine (Sulfasalazine 500 Mg Tablet) 500 mg PO BID [facility] Last Admin: 12/28/22 07:56 Dose: 500 mg Documented By: JEAN PAUL Tiotropium Sayre (Tiotropium Sayre 18 Mcg Cap.W.Dev) 2 puff INHALE RDAILY [facility] Last Admin: 12/28/22 08:16 Dose: 1 puff Documented By: EDUARDA Vancomycin HCl (Vancomycin Hcl 125 Mg Capsule) 125 mg PO Q6H [facility] Last Admin: 12/28/22 09:30 Dose: 125 mg Documented By: JEAN PAUL Labs 12/28/22 05:46 12/28/22 05:46 Labs: Laboratory Results - last 24 hr 12/27/22 12/27/22 12/28/22 15:16 17:19 05:46 MCV 75.4 L MCH 23.2 L MCHC 30.8 L RDW 15.2 Plt Count 287 MPV 9.7 Absolute Nucleated RBC 0.000 Nucleated RBC % (auto) 0.0 Anion Gap Estim Creat Clear Calc Estimated GFR POC Glucose Random Glucose Calcium Magnesium 1.6 C. difficile Tox B Gene POSITIVE A* C. difficile Toxin A&B Negative C. difficile Interpret SEE NOTE 12/28/22 12/28/22 05:46 09:14 MCV MCH MCHC RDW Plt Count MPV Absolute Nucleated RBC Nucleated RBC % (auto) Anion Gap 10 L Estim Creat Clear Calc 78.0 Estimated GFR > 60 POC Glucose 103 Random Glucose 58 L* Calcium 7.0 L Magnesium C. difficile Tox B Gene C. difficile Toxin A&B C. difficile Interpret Microbiology Microbiology Results: Microbiology 12/27/22 04:51 Blood Culture - Preliminary Blood - Venous No growth after 24 hours. 12/27/22 04:51 Blood Culture - Preliminary Blood - Venous No growth after 24 hours. Assessment and Plan (1) Diarrhea: Status: Acute (2) Acute hypokalemia: Status: Acute Plan 47-year-old female with a PMH significant for?COPD steroid dependent, lupus, rheumatoid arthritis, CVA, mixed connective tissue disorder, anxiety and panic attacks, PAD on Eliquis, and Charcot foot who presents to the ED with generalized weakness and foul-smelling diarrhea x1 month. Pt was treated with IVF, ondansetron, and fidaxomicin. Pt will be admitted to observation for treatment further evaluation of possible C diff infection. Diarrhea Etiology unclear, had 3 bowel movement since admission no associated cramping CT abdomen showed evidence of pericolonic colitis extending from cecum to rectum suggesting acute mild infectious/inflammatory colitis, patient with history of C diff infection 1 year ago,and recently on antibiotics stool sample showed positive C diff PCR, toxin a and B negative Elevated WBC likely due to steroids Will place on by mouth vancomycin ,obtain ID consult regarding antibiotic choice and treatment, received 1 dose of fidaxomicin in ed Will hold Plaquenil and sulfasalazine Hypoglycemia blood sugar 58 this morning improved after breakfast likely due to decreased by mouth intake, placed on IV fluids, use antiemetics for nausea. Hypokalemia Potassium 2.9 at time of presentation improved to 3.3 with potassium supplement will place on IV fluid with potassium and follow her electrolytes and renal function. Acute lactic acidosis, resolved Patient with lactic acid of 2.4 at time of presentation, treated with IV fluid, but lactate normalized likely due to dehydration with diarrhea Mixed connective tissue disorder/rheumatoid arthritis/lupus on to dosages of p rednisone will continue prednisone 5 mg and DC prednisolone, on sulfasalazine, hydroxychloroquine Tobacco use disorder continue nicotine patch counseling done. COPD no acute exacerbation, not on supplemental O2, Continue home inhalers and by mouth prednisone 5 mg will DC other order of prednisolone Charcot's foot No sign of acute infection PAD Continue Eliquis CVA Continue Eliquis,and statin Hypothyroidism Continue levothyroxine Anxiety Continue home meds Full Code DVT Prophylaxis: On Eliquis In my clinical judgment patient need continued inpatient hospitalization for hypoglycemia, persistent diarrhea on IV fluids, electrolyte abnormalities Time Spent With Patient Time: Total time managing care of this patient today ____ minutes. Quality Stroke Does the patient have a stroke diagnosis?: No VTE Prior VTE?: No VTE Risk Level:: Medical - moderate - high VTE Device Contraindication: Treatment Not Indicated VTE Drug Contraindication: N/A - Med Ordered
--- NOTE | 2022-12-28 12:47 | MHC.CM.PN ---
[facility] UNABLE TO OFFER (NO PRIVATE ROOM) [facility], AND [facility]
[2022-12-28] MEDS: KCl 20 mEq in 5 % Dex/Lact Rin 20 MEQ/1,000 ML IV.SOLN 100 MEQ IVCONT ×2 (12:56→22:34)
[2022-12-28 15:59] VITALS: BP 114/61; PULSE 83; RESP 19; TEMP 36.2; O2SAT 99
--- NOTE | 2022-12-28 16:10 | W.PM.IDCN ---
History of Present Illness Data of Consult Service Date: 12/28/22 Requesting physician: Libby Vigil Primary Care Provider: Barbie Brown MD HPI Reason for consult: diarrhea She presents with loose watery stools 5-6 times a day at least. She had been on 10 days Augmentin last month for respiratory symptoms and had stool positive Cdiff on 11/30 She has new Cdiff positive Review of Systems Review of Systems: Yes all other systems are reviewed and are negative PMFSH Past Medical History Medical History C. difficile colitis Cellulitis Cellulitis Cellulitis of right leg Charcot's joint of foot COPD (chronic obstructive pulmonary disease) CVA (cerebral vascular accident) Falling Fibromyalgia Hypothyroid Immunosuppression due to chronic steroid use Lupus Mixed connective tissue disease PAD (peripheral artery disease) Pneumonia due to COVID-19 virus Proteinuria Redness and swelling of lower leg Respiratory failure with hypoxia Rheumatoid arthritis Rheumatoid arthritis Secondary bacterial pneumonia Varicose veins of right lower extremity with inflammation Family History Family History Father No problems noted. Mother Lung cancer Surgical History Surgical History History of breast lump/mass excision History of bunionectomy History of cholecystectomy History of excision of mass History of partial hysterectomy Social History Social History Household Members: Family Household Members Other:: 3 Housing: Apartment Do you presently have visiting nurse or other home services: Yes ([employer]) Alcohol intake: never Patient Tobacco Use Status: Current everyday Tobacco user Tobacco use type: Cigarette Cigarette Packs Per Day: 1 Cigarettes Per Day: 20.0 Years Smoked: 30 Second Hand Smoke Exposure: No Substance Use Type: Marijuana Advance Directives Date on File: 11/26/21 service: No Current occupational status: unemployed and disabled Current occupation: right hand dominant Meds Allergies Allergy/AdvReac Type Severity Reaction Status Date / Time clarithromycin Allergy Intermediate FACIAL Verified 11/28/22 15:05 [CLARITHROMYCIN] SWELLING/REDNESS, facial rash, facial rash, facial rash, facial rash Active Medications: Current Medications Acetaminophen (Acetaminophen 325 Mg Tablet) 650 mg PO Q6H PRN PRN Reason: Pain, Mild (Pain Scale 1-3) Last Admin: 12/27/22 18:23 Dose: 650 mg Acetaminophen/Butalbital/Caffeine (Butalb/Acetamin/Caff 50/325/40 Tablet) 2 tab PO DAILY PRN PRN Reason: headache Albuterol Sulfate (Albuterol Sulfate (0.083%) 2.5 Mg/3 Ml Vial.Neb) 2.5 mg INHALE Q6H PRN PRN Reason: Shortness Of Breath Or Wheezing Albuterol Sulfate (Albuterol Sulfate 90 Mcg 8 Gm Inhaler) 2 puff INHALE Q4H PRN PRN Reason: Shortness Of Breath Or Wheezing Apixaban (Apixaban 5 Mg Tablet) 5 mg PO BID [facility] Last Admin: 12/28/22 07:57 Dose: 5 mg Bupropion HCl (Bupropion Hcl Xl 150 Mg Tab.Er.24h) 150 mg PO DAILY [facility] Last Admin: 12/28/22 07:57 Dose: 150 mg Famotidine (Famotidine 20 Mg Tablet) 20 mg PO DAILY [facility] Last Admin: 12/28/22 07:56 Dose: 20 mg Ferrous Sulfate (Ferrous Sulfate 324 Mg Tablet.Dr) 324 mg PO DAILY [facility] Last Admin: 12/28/22 07:58 Dose: 324 mg Fluoxetine HCl (Fluoxetine Hcl 20 Mg Capsule) 40 mg PO DAILY [facility] Last Admin: 12/28/22 07:56 Dose: 40 mg Folic Acid (Folic Acid 1 Mg Tablet) 1 mg PO DAILY [facility] Last Admin: 12/28/22 07:57 Dose: 1 mg Potassium Cl/Dextrose/Lact Ringer's (Kcl 20 Meq In 5 % Dex/Lact Rin) 20 meq in 1,000 mls @ 100 mls/hr IVCONT .Q10H [facility] Last Admin: 12/28/22 12:56 Dose: 100 mls/hr Levothyroxine Sodium (Levothyroxine Sodium 175 Mcg Tablet) 175 mcg PO DAILY [facility] Last Admin: 12/28/22 07:57 Dose: 175 mcg Loratadine (Loratadine 10 Mg Tablet) 10 mg PO DAILY [facility] Last Admin: 12/28/22 07:59 Dose: 10 mg Lorazepam (Lorazepam 1 Mg Tablet) 1 mg PO BID PRN PRN Reason: Anxiety Last Admin: 12/27/22 18:24 Dose: 1 mg Multivitamins/Vitamin C (Multivitamin Tablet) 1 tab PO DAILY [facility] Last Admin: 12/28/22 07:58 Dose: 1 tab Nicotine (Nicotine 21 Mg Patch.Td24) 21 mg TRANSDERMA DAILY [facility] Last Admin: 12/28/22 07:58 Dose: 21 mg Nortriptyline HCl (Nortriptyline Hcl 25 Mg Capsule) 75 mg PO BEDTIME [facility] Last Admin: 12/27/22 20:15 Dose: 75 mg Pravastatin Sodium (Pravastatin Sodium 40 Mg Tablet) 40 mg PO BEDTIME [facility] Last Admin: 12/27/22 20:15 Dose: 40 mg Prednisone (Prednisone 5 Mg Tablet) 5 mg PO DAILY [facility] Last Admin: 12/28/22 07:57 Dose: 5 mg Sodium Chloride (0.9 % Sodium Chloride Flush 3 Ml Syringe) 3 ml IVFLUSH QSHIFT [facility] Last Admin: 12/28/22 15:28 Dose: Not Given Tiotropium Remus (Tiotropium Remus 18 Mcg Cap.W.Dev) 2 puff INHALE RDAILY [facility] Last Admin: 12/28/22 08:16 Dose: 1 puff Vancomycin HCl (Vancomycin Hcl 125 Mg Capsule) 125 mg PO Q6H [facility] Last Admin: 12/28/22 15:27 Dose: 125 mg Home Medications Medication Instructions Recorded Confirmed Last Taken Type lorazepam 1 mg tablet 1 mg PO BID PRN Anxiety 08/15/20 12/27/22 08/30/20 History pravastatin 40 mg tablet 40 mg PO BEDTIME 08/15/20 12/27/22 12/26/22 History albuterol sulfate 2.5 mg/3 mL 2.5 mg inhalation Q6H PRN 08/31/20 12/27/22 08/30/20 History (0.083 %) solution for nebulization Shortness Of Breath Or Wheezing albuterol sulfate 90 mcg/actuation 2 puff inhalation Q4H PRN 08/31/20 12/27/22 08/30/20 History aerosol inhaler Shortness Of Breath Or Wheezing bupropion HCl 100 mg tablet,12 hr 100 mg PO BID 08/31/20 12/27/22 12/26/22 History sustained-release prednisone 5 mg tablet 5 mg PO DAILY 08/31/20 12/27/22 12/26/22 History nortriptyline 75 mg capsule 75 mg PO BEDTIME 04/18/21 12/27/22 12/26/22 History apixaban 5 mg tablet 5 mg PO BID 10/21/21 12/27/22 12/26/22 History levothyroxine 175 mcg tablet 175 mcg PO DAILY 10/21/21 12/27/22 12/26/22 History loratadine 10 mg tablet 10 mg PO DAILY 10/21/21 12/27/22 12/26/22 History multivitamin 1 tab PO DAILY 10/21/21 12/27/22 12/26/22 History nebulizer and compressor (Vios #1 ea 02/15/22 05/24/22 Unknown History Aerosol Delivery System) famotidine 20 mg tablet 1 tab PO DAILY 05/24/22 12/27/22 12/26/22 History [id number] 2 tab PO DAILY PRN headache 11/08/22 12/27/22 Unknown History 50 mg-325 mg-40 mg tablet ferrous sulfate 325 mg (65 mg 1 tab PO DAILY 11/08/22 12/27/22 12/26/22 History iron) tablet (FeroSul) sulfasalazine 500 mg tablet 1 tab PO BID 11/08/22 12/27/22 12/26/22 History tiotropium bromide 2.5 2 puff inhalation DAILY 11/08/22 12/27/22 12/26/22 History mcg/actuation mist for inhalation (Spiriva Respimat) tramadol 50 mg tablet 50 mg PO Q6H PRN pain 11/08/22 12/27/22 Unknown History fluoxetine 20 mg capsule 2 cap PO DAILY 12/27/22 12/27/22 12/26/22 History prednisolone 5 mg tablet 1 tab PO DAILY 12/27/22 12/27/22 12/26/22 History (Millipred) Physical Exam Vital Signs: Vital Signs: Last Vital Signs Temp 97.1 F 12/28/22 15:59 Pulse 83 12/28/22 15:59 Resp 19 12/28/22 15:59 BP 114/61 12/28/22 15:59 Pulse Ox 99 12/28/22 15:59 O2 Del Method 12/28/22 15:59 BMI result Body Mass Index 24.0 Const: General: cooperative HEENT: Head: Yes normal to inspection Face and sinus: Yes normal facial exam Mouth: Normal oral and palatal mucosa present Teeth and gingiva: dentition normal Eyes: General: appearance normal, both eyes and all related structures Pupils: Equal, round and reactive pupils present Resp: Effort & Inspection: normal respiratory effort Cardio: Rate: regular rate Rhythm: regular rhythm GI: Palpation (GI): Soft to palpation and nontender : General: Yes no CVA tenderness Back/Spine/Pelvis: Back: no CVA tenderness Skin: General skin exam: no rashes or lesions noted Neuro: General: moves all extremities Cranial nerves: Yes Equal, round and reactive pupils present Extrem: General: Yes normal to inspection Psych: Appearance: grossly normal Results Labs 12/28/22 05:46 12/28/22 05:46 Labs: Short CBC 12/28/22 Range/Units 05:46 WBC 20.5 H (4.8-10.8) X10*3/uL Hgb 11.8 L (12.0-16.0) g/dl Hct 38.3 (37.0-47.0) % Plt Count 287 (160-400) X10*3/uL BMP 12/28/22 05:46 Sodium 136 Potassium 3.3 Chloride 101 Carbon Dioxide 28 BUN 12 Creatinine 0.72 Calcium 7.0 L Microbiology Microbiology Results: Microbiology 12/27/22 04:51 Blood - Venous Blood Culture - Preliminary No growth after 24 hours. 12/27/22 04:51 Blood - Venous Blood Culture - Preliminary No growth after 24 hours. Assessment and Plan (1) C. difficile colitis: Status: Acute She has probable active disease with symptoms She received Dificid and po Vancomycin Plan po Vancomycin taper qid one week tid one week bid one week daily one week every other day one week every , , Saturday two to three months give po Vancomycin when takes antibiotics in future Time Spent With Patient Time: Total time managing care of this patient today ____ minutes.
[2022-12-28 20:00] VITALS: BP 113/63; PULSE 86; RESP 18; TEMP 36.8; O2SAT 94
[2022-12-28] MEDS: Pravastatin Sodium 40 MG TABLET PO (20:53)
[2022-12-28] MEDS: Nortriptyline HCl 25 MG CAPSULE 75 MG PO (20:53)
[2022-12-29] MEDS: vancomycin HCL 125 MG CAPSULE PO ×4 (03:45→20:49)
[2022-12-29 03:55] VITALS: BP 130/68; PULSE 78; TEMP 36.3; O2SAT 98
[2022-12-29 06:28] LABS: Hematocrit 35.2 % (37.0-47.0); Hemoglobin 10.8 g/dl (12.0-16.0); Mean Corpuscular HGB Conc 30.7 g/dl (31.0-35.0); Mean Corpuscular Hemoglobin 23.6 pg (27.0-33.0); Mean Corpuscular Volume 76.9 fL (80.0-98.0); Mean Platelet Volume 9.6 fL (9.4-12.3); Platelet Count 248 X10*3/uL (160-400); Red Blood Count 4.58 X10*6/uL (4.20-5.50); Red Cell Distribution Width 15.4 % (11.0-16.0); White Blood Count 12.3 X10*3/uL (4.8-10.8)
[2022-12-29 06:52] LABS: Anion Gap 9 (12-20); Blood Urea Nitrogen 10 mg/dL (9-16); Calcium 6.9 mg/dL (8.4-10.2); Carbon Dioxide 28 mmol/L (22-29); Chloride 103 mmol/L (96-108); Creatinine Clr Calc Pharmacy 85.1; Estimated Glomerular Filt Rate > 60; Glucose Random 87 mg/dL (60-115); Potassium 3.9 mmol/L (3.3-5.1); Sodium 136 mmol/L (135-145)
[2022-12-29] MEDS: FLUoxetine HCl 20 MG CAPSULE 40 MG PO (07:26)
[2022-12-29] MEDS: Famotidine 20 MG TABLET PO (07:26)
[2022-12-29] MEDS: Loratadine 10 MG TABLET PO (07:26)
[2022-12-29] MEDS: Ferrous Sulfate 324 MG TABLET.DR PO (07:26)
[2022-12-29] MEDS: buPROPion HCl XL 150 MG TAB.ER.24H PO (07:27)
[2022-12-29] MEDS: Folic Acid 1 MG TABLET PO (07:27)
[2022-12-29] MEDS: Multivitamin TABLET 1 TAB PO (07:27)
[2022-12-29] MEDS: Levothyroxine Sodium 175 MCG TABLET PO (07:27)
[2022-12-29] MEDS: Apixaban 5 MG TABLET PO ×2 (07:27→20:49)
[2022-12-29] MEDS: Nicotine 21 MG PATCH.TD24 TRANSDERMA (07:28)
[2022-12-29] MEDS: predniSONE 5 MG TABLET PO (07:38)
[2022-12-29 07:40] VITALS: BP 118/67; PULSE 84; RESP 16; TEMP 36.3; O2SAT 99
[2022-12-29] MEDS: KCl 20 mEq in 5 % Dex/Lact Rin 20 MEQ/1,000 ML IV.SOLN 100 MEQ IVCONT (09:14)
--- NOTE | 2022-12-29 09:17 | P.PNIM_ITS ---
Subjective Subjective Date of Service: 12/29/22 Interval History: Patient feeling better this morning no nausea, no abdominal pain had 4 bowel movement in last 24 hours, no fevers, no chills no acute issues overnight, tolerating diet, no lightheadedness, no dizziness. Review of Systems Review of Systems: Yes all other systems are reviewed and are negative Physical Exam Vital Signs: Vital Signs: Last Vital Signs Temp 97.4 F 12/29/22 07:40 Pulse 84 12/29/22 07:40 Resp 16 12/29/22 07:40 BP 118/67 12/29/22 07:40 Pulse Ox 99 12/29/22 07:40 O2 Del Method 12/29/22 07:40 BMI result Body Mass Index 24.0 Const: Other: General resting co mfortably, no acut e distress.? Neck is supple no JVD. CVS? regular rate rhythm, Respirator y lungs clear to a uscultation, no re spiratory distress , no wheeze, no rh onchi. Gastrointes tinal abdomen soft , nontender, bowel sounds audible,? no guarding , no r igidity. Extremiti es no edema. Neuro nonfocal Skin no rash Psych appropr iate affect Objective Data Active Medications Acetaminophen (Acetaminophen 325 Mg Tablet) 650 mg PO Q6H PRN PRN Reason: Pain, Mild (Pain Scale 1-3) Last Admin: 12/27/22 18:23 Dose: 650 mg Documented By: MARLEN-MARIAJOSELA Acetaminophen/Butalbital/Caffeine (Butalb/Acetamin/Caff 50/325/40 Tablet) 2 tab PO DAILY PRN PRN Reason: headache Albuterol Sulfate (Albuterol Sulfate (0.083%) 2.5 Mg/3 Ml Vial.Neb) 2.5 mg INHALE Q6H PRN PRN Reason: Shortness Of Breath Or Wheezing Albuterol Sulfate (Albuterol Sulfate 90 Mcg 8 Gm Inhaler) 2 puff INHALE Q4H PRN PRN Reason: Shortness Of Breath Or Wheezing Apixaban (Apixaban 5 Mg Tablet) 5 mg PO BID [facility] Last Admin: 12/29/22 07:27 Dose: 5 mg Documented By: DULCE Bupropion HCl (Bupropion Hcl Xl 150 Mg Tab.Er.24h) 150 mg PO DAILY [facility] Last Admin: 12/29/22 07:27 Dose: 150 mg Documented By: DULCE Famotidine (Famotidine 20 Mg Tablet) 20 mg PO DAILY [facility] Last Admin: 12/29/22 07:26 Dose: 20 mg Documented By: DULCE Ferrous Sulfate (Ferrous Sulfate 324 Mg Tablet.Dr) 324 mg PO DAILY [facility] Last Admin: 12/29/22 07:26 Dose: 324 mg Documented By: DULCE Fluoxetine HCl (Fluoxetine Hcl 20 Mg Capsule) 40 mg PO DAILY [facility] Last Admin: 12/29/22 07:26 Dose: 40 mg Documented By: DULCE Folic Acid (Folic Acid 1 Mg Tablet) 1 mg PO DAILY [facility] Last Admin: 12/29/22 07:27 Dose: 1 mg Documented By: DULCE Potassium Cl/Dextrose/Lact Ringer's (Kcl 20 Meq In 5 % Dex/Lact Rin) 20 meq in 1,000 mls @ 100 mls/hr IVCONT .Q10H [facility] Last Admin: 12/29/22 09:14 Dose: 100 mls/hr Documented By: DULCE Levothyroxine Sodium (Levothyroxine Sodium 175 Mcg Tablet) 175 mcg PO DAILY [facility] Last Admin: 12/29/22 07:27 Dose: 175 mcg Documented By: DULCE Loratadine (Loratadine 10 Mg Tablet) 10 mg PO DAILY [facility] Last Admin: 12/29/22 07:26 Dose: 10 mg Documented By: DULCE Lorazepam (Lorazepam 1 Mg Tablet) 1 mg PO BID PRN PRN Reason: Anxiety Last Admin: 12/27/22 18:24 Dose: 1 mg Documented By: MARLEN-DENG Multivitamins/Vitamin C (Multivitamin Tablet) 1 tab PO DAILY [facility] Last Admin: 12/29/22 07:27 Dose: 1 tab Documented By: DULCE Nicotine (Nicotine 21 Mg Patch.Td24) 21 mg TRANSDERMA DAILY [facility] Last Admin: 12/29/22 07:28 Dose: 21 mg Documented By: DULCE Nortriptyline HCl (Nortriptyline Hcl 25 Mg Capsule) 75 mg PO BEDTIME [facility] Last Admin: 12/28/22 20:53 Dose: 75 mg Documented By: MONCHO Pravastatin Sodium (Pravastatin Sodium 40 Mg Tablet) 40 mg PO BEDTIME [facility] Last Admin: 12/28/22 20:53 Dose: 40 mg Documented By: MONCHO Prednisone (Prednisone 5 Mg Tablet) 5 mg PO DAILY [facility] Last Admin: 12/29/22 07:38 Dose: 5 mg Documented By: DULCE Sodium Chloride (0.9 % Sodium Chloride Flush 3 Ml Syringe) 3 ml IVFLUSH QSHIFT [facility] Last Admin: 12/29/22 07:28 Dose: Not Given Documented By: DULCE Non-Admin Reason: IV Running Tiotropium [place] (Tiotropium [place] 18 Mcg Cap.W.Dev) 2 puff INHALE RDAILY [facility] Last Admin: 12/29/22 08:18 Dose: Not Given Documented By: KULWINDER Non-Admin Reason: Patient Asleep Vancomycin HCl (Vancomycin Hcl 125 Mg Capsule) 125 mg PO Q6H [facility] Last Admin: 12/29/22 07:27 Dose: 125 mg Documented By: DULCE Labs 12/29/22 05:44 12/29/22 05:44 Labs: Laboratory Results - last 24 hr 12/28/22 12/29/22 12/29/22 09:14 05:44 05:44 MCV 76.9 L MCH 23.6 L MCHC 30.7 L RDW 15.4 Plt Count 248 MPV 9.6 Absolute Nucleated RBC 0.000 Nucleated RBC % (auto) 0.0 Anion Gap 9 L Estim Creat Clear Calc 85.1 Estimated GFR > 60 POC Glucose 103 Random Glucose 87 Calcium 6.9 L Microbiology Microbiology Results: Microbiology 12/27/22 04:51 Blood Culture - Preliminary Blood - Venous No growth after 48 hours. 12/27/22 04:51 Blood Culture - Preliminary Blood - Venous No growth after 48 hours. Assessment and Plan (1) Diarrhea: Status: Acute (2) Acute hypokalemia: Status: Acute Plan 47-year-old female with a PMH significant for?COPD steroid dependent, lupus, rheumatoid arthritis, CVA, mixed connective tissue disorder, anxiety and panic attacks, PAD on Eliquis, and Charcot foot who presents to the ED with generalized weakness and foul-smelling diarrhea x1 month. Pt was treated with IVF, ondansetron, and fidaxomicin. Pt will be admitted to observation for treatment further evaluation of possible C diff infection. C diff colitis Diarrhea Improving CT abdomen showed evidence of pericolonic colitis extending from cecum to rectum suggesting acute mild infectious/inflammatory colitis, patient with history of C diff infection 1 year ago,and recently on antibiotics stool sample showed positive C diff PCR, toxin a and B negative WBC trending down Case discussed with ID she recommend slow tapering of vancomycin, stool panel not collected hold Plaquenil and sulfasalazine Hypoglycemia resolved likely due to decreased by mouth intake , no history of diabetes Hypokalemia repleted repeat potassium 3.9 Acute lactic acidosis, resolved Patient with lactic acid of 2.4 at time of presentation, treated with IV fluid, lactate normalized likely due to dehydration with diarrhea Mixed connective tissue disorder/rheumatoid arthritis/lupus on to dosages of prednisone will continue prednisone 5 mg and hold sulfasalazine, and hydroxych loroquine Tobacco use disorder continue nicotine patch, counseling done. COPD no acute exacerbation, not on supplemental O2, Continue home inhalers and by mouth prednisone 5 mg will DC other order of prednisolone Charcot's foot No sign of acute infection PAD Continue Eliquis CVA Continue Eliquis,and statin Hypothyroidism Continue levothyroxine Anxiety Continue home meds Full Code DVT Prophylaxis: On Eliquis In my clinical judgment patient need continued inpatient hospitalization for pe rsistent diarrhea on IV fluids, electrolyte abnormalities. Time Spent With Patient Time: Total time managing care of this patient today ____ minutes. Quality Stroke Does the patient have a stroke diagnosis?: No VTE Prior VTE?: No VTE Risk Level:: Medical - moderate - high VTE Device Contraindication: Treatment Not Indicated VTE Drug Contraindication: N/A - Med Ordered
[2022-12-29 16:00] VITALS: BP 109/61; PULSE 65; RESP 15; TEMP 36.2; O2SAT 96
[2022-12-29] MEDS: 0.9 % Sodium Chloride Flush 3 ML SYRINGE IVFLUSH (16:24)
[2022-12-29 20:00] VITALS: BP 111/66; PULSE 81; RESP 17; TEMP 36.3; O2SAT 95
[2022-12-29] MEDS: Nortriptyline HCl 25 MG CAPSULE 75 MG PO (20:49)
[2022-12-29] MEDS: Pravastatin Sodium 40 MG TABLET PO (20:49)
[2022-12-30] MEDS: vancomycin HCL 125 MG CAPSULE PO ×2 (02:00→09:17)
[2022-12-30] MEDS: KCl 20 mEq in 5 % Dex/Lact Rin 20 MEQ/1,000 ML IV.SOLN 60 MEQ IVCONT (02:01)
[2022-12-30] MEDS: 0.9 % Sodium Chloride Flush 3 ML SYRINGE IVFLUSH (02:01)
[2022-12-30 04:00] VITALS: BP 111/66; PULSE 88; RESP 16; TEMP 36.5; O2SAT 96
[2022-12-30 07:25] VITALS: BP 102/59; PULSE 87; RESP 20; TEMP 36.4; O2SAT 97
[2022-12-30] MEDS: Multivitamin TABLET 1 TAB PO (09:17)
[2022-12-30] MEDS: Ferrous Sulfate 324 MG TABLET.DR PO (09:17)
[2022-12-30] MEDS: FLUoxetine HCl 20 MG CAPSULE 40 MG PO (09:17)
[2022-12-30] MEDS: Levothyroxine Sodium 175 MCG TABLET PO (09:17)
[2022-12-30] MEDS: Loratadine 10 MG TABLET PO (09:17)
[2022-12-30] MEDS: predniSONE 5 MG TABLET PO (09:17)
[2022-12-30] MEDS: Folic Acid 1 MG TABLET PO (09:17)
[2022-12-30] MEDS: buPROPion HCl XL 150 MG TAB.ER.24H PO (09:17)
[2022-12-30] MEDS: Famotidine 20 MG TABLET PO (09:17)
[2022-12-30] MEDS: Apixaban 5 MG TABLET PO (09:18)
[2022-12-30] MEDS: Nicotine 21 MG PATCH.TD24 TRANSDERMA (09:18)
--- NOTE | 2022-12-30 11:36 | P.DS_ITS ---
DS: Providers Provider Date of Service: 12/30/22 Date of admission: 12/27/22 13:52 Primary care physician: Barbie Brown MD Consults: 12/27/22 06:36 Consult to Infectious Diseases Routine Consulting Provider: Karen Tabor Reason for consultation: c diff Has provider been notified: Yes DS: Diagnosis Discharge Diagnosis (1) Diarrhea: Status: Acute (2) Acute hypokalemia: Status: Acute DS: Summary Hospital Course Hospital Course: Date of Service: 12/27/22 Attending physician on admission: Richard Garner Chief Complaint: Diarrhea, generalized weakness Pt is a 47-year-old female with a PMH significant for?COPD steroid dependent, lupus, rheumatoid arthritis, CVA, mixed connective tissue disorder, anxiety and panic attacks, PAD on Eliquis, and Charcot foot who presents to the ED with generalized weakness and foul-smelling diarrhea x1 month. Patient states she began having diarrhea and weakness?since the time of last discharge from the hospital on 11/16/2022.? Patient was here for acute right elbow cellulitis and found to have chronic bursitis without abscess.? Inpatient she was treated with vanco and Zosyn and discharged with a 10-day course of Augmentin 875 mg b.i.d.. Patient notes that she has at least 2 episodes of foul-smelling diarrhea per day, sometimes with more. Pt has a history of C diff infection on 11/30/2021 and she states her current experiencing similar to that one. Patient has had decreased p.o. intake both liquids and solids during this time, has chills but no fever, nausea but no vomiting, and occasional abdominal pain.? Patient complains of chronic right foot pain, but notes no new sores or discharge from chronic wounds. In the ED labs were significant for leukocytosis of 19.5, lactic acid of 2.4 with repeat of 1.0, ESR WNL, C reactive protein of 8.15.? Patient is negative for influenza type A and B, RSV, COVID.? C diff results pending. XR of foot showed healing fractures of 3rd, 4th, and 5th metatarsal necks with no radiographic evidence of osteomyelitis. CT?of abdomen pelvis found no evidence of perforation or abscess formation but with results suggesting acute mild infectious/inflammatory colitis. EKG demonstrated normal sinus rhythm with prolonged QTc of 629 with left anterior fascicular block. Pt was treated with IVF, ondansetron, vanco, and fidaxomicin. Pt will be admitted to observation for treatment further evaluation of possible C diff infection. Hospital course 47-year-old female with a PMH significant for?COPD steroid dependent, lupus, rh eumatoid arthritis, CVA, mixed connective tissue disorder, anxiety and panic attacks, PAD on Eliquis, and Charcot foot who presents to the ED with generalized weakness and foul-smelling diarrhea x1 month. Pt was treated with IVF, ondansetron, and fidaxomicin and subsequently admitted to hospital for evaluation of possible C diff infection. C diff colitis, CT abdomen showed evidence of pericolonic colitis extending from cecum to rectum suggesting acute mild infectious/inflammatory colitis, patient with history of C diff infection 1 year ago,and recently on antibiotics,stool sample showed positive C diff PCR,? toxin a and B negative, patient seen by infectious disease Dr. Tabor she recommend to treat as C diff colitis with tapering dose of vancomycin, patient responded well to vancomycin therapy diarrhea significantly improved. Patient tolerating diet with no fever chills WBC is trending down therefore will discharge patient home on slow taper of vancomycin and recommend to use vancomycin 1 treated with antibiotics in future, Plaquenil and sulfasalazine were held initially but since the infection is under controlled recommend to resume all home medications. Hypoglycemia resolved likely due to decreased by mouth intake , no history of diabetes. Hypokalemia repleted repeat potassium normalized to 3.9. Acute lactic acidosis, resolved Patient with lactic acid of 2.4 at time of presentation, treated with IV fluid, lactate normalized likely due to dehydration with diarrhea. Mixed connective tissue disorder/rheumatoid arthritis/lupus continue prednisone 5 mg and continue sulfasalazine, and hydroxychloroquine, patient was also on prednisolone 5 mg that has been discontinued. Tobacco use disorder continue nicotine patch, counseling done. COPD no acute exacerbation, not on supplemental O2, Continue home inhalers and by mouth prednisone 5 mg . Charcot's foot No sign of acute infection PAD Continue Eliquis CVA Continue Eliquis,and statin Hypothyroidism Continue levothyroxine Anxiety Continue home meds Time Spent with Patient Time attestation: Total time managing care of this patient today ____ minutes. Discharge coordination time: Greater than 30 minutes Quality: Safe Use of Opioids Does Pt have an Active Cancer Diagnosis on the Problem List?: No Quality: Stroke Does the patient have a stroke diagnosis?: No Physical Exam Vital Signs: Vital Signs: Last Vital Signs Temp 97.5 F 12/30/22 07:25 Pulse 87 12/30/22 07:25 Resp 20 12/30/22 07:25 BP 102/59 L 12/30/22 07:25 Pulse Ox 97 12/30/22 07:25 O2 Del Method 12/30/22 07:25 BMI result Body Mass Index 24.0 Const: Other: General resting comfortably, no acute distress.? Neck is supple no JVD. CVS? regular rate rhythm, Respiratory lungs clear to auscultation, no respiratory distress, no wheeze, no rhonchi. Gastrointestinal abdomen soft, non tender, bowel sounds audible,? no guarding , no rigidity. Extremities no edema. Neuro nonfocal Skin no rash Psych appropriate affect DS: Data Data Completed and Pending Completed studies during hospitalization [Text1]: Procedures Assistance with Respiratory Ventilation, Less than 24 Consecutive Hours, Continuous Positive Airway Pressure (11/25/21) Drainage of Right Elbow Bursa and Ligament, Open Approach (11/08/22) Excision of Left Lower Leg Subcutaneous Tissue and Fascia, Open Approach, Diagnostic (08/31/20) Insertion of Endotracheal Airway into Trachea, Via Natural or Artificial Opening Endoscopic (11/25/21) Insertion of Infusion Device into Superior Vena Cava, Percutaneous Approach (11/25/21) Introduction of Baricitinib into Mouth and Pharynx, External Approach, [employer] (11/25/21) Introduction of Remdesivir Anti-infective into Peripheral Vein, Percutaneous Approach, [employer] (11/25/21) Introduction of Vasopressor into Peripheral Vein, Percutaneous Approach (11/25/21) Respiratory Ventilation, 24-96 Consecutive Hours (11/25/21) Respiratory Ventilation, Greater than 96 Consecutive Hours (11/25/21) Transfusion of Nonautologous Red Blood Cells into Peripheral Vein, Percutaneous Approach (11/25/21) Labs on day of discharge: Preliminary micro results at discharge 12/27/22 04:51 Blood Culture - Preliminary Blood - Venous No growth after 48 hours. 12/27/22 04:51 Blood Culture - Preliminary Blood - Venous No growth after 48 hours. Discharge Plan Discharge Anticipated Discharge Date/Time: 12/30/22 10:31 Patient Disposition: Home, Self-Care Discharge Diagnosis: C diff colitis Hypokalemia Referrals: Barbie Dunn MD [Primary Care Provider] - 1 Week Discharge Medications: New nicotine 21 mg/24 hr Patch 24 Hour 21 mg transdermal DAILY Qty: 28 0RF vancomycin 125 mg Capsule 125 mg PO Q6H Qty: 90 0RF Rx Instructions: take po Vancomycin 4x per per day 5 days,than take 3x per day x one week,than twice daily one week,than once daily one week,than every other day one week than every , , Saturday two months, Continued folic acid 1 mg tablet 1 mg PO DAILY Qty: 30 3RF hydroxychloroquine 200 mg tablet 200 mg PO BID Qty: 60 3RF albuterol sulfate 2.5 mg /3 mL (0.083 %) solution for nebulization 2.5 mg inhalation Q6H PRN (Reason: Shortness Of Breath Or Wheezing) prednisone 5 mg tablet 5 mg PO DAILY bupropion HCl 100 mg tablet sustained-release 12 hr 100 mg PO BID albuterol sulfate 90 mcg/actuation HFA aerosol inhaler 2 puff inhalation Q4H PRN (Reason: Shortness Of Breath Or Wheezing) loratadine 10 mg Tablet 10 mg PO DAILY multivitamin Tablet 1 tab PO DAILY apixaban 5 mg Tablet 5 mg PO BID levothyroxine 175 mcg Tablet 175 mcg PO DAILY fluoxetine 20 mg capsule 2 cap PO DAILY famotidine 20 mg tablet 1 tab PO DAILY mlciivonvr-zfbhmhaarjigh-yuoe 50-325-40 mg tablet 2 tab PO DAILY PRN (Reason: headache) sulfasalazine 500 mg tablet 1 tab PO BID ferrous sulfate [FeroSul] 325 mg (65 mg iron) tablet 1 tab PO DAILY Spiriva Respimat 2.5 mcg/actuation mist 2 puff INHALATION DAILY tramadol 50 mg tablet 50 mg PO Q6H PRN (Reason: pain) nortriptyline 75 mg capsule 75 mg PO BEDTIME lorazepam 1 mg tablet 1 mg PO BID PRN (Reason: Anxiety) pravastatin 40 mg tablet 40 mg PO BEDTIME (DME) nebulizer and compressor [[employer]ios Aerosol Delivery System] Device See Rx Instructions .ROUTE DIRECTED Qty: 1 Rx Instructions: As directed Discontinued Millipred 5 mg tablet 1 tab PO DAILY Discharge Orders: Discharge Order (Routine); Ordered 12/30/22 Ordered By: Libby Vigil Diet: Advance to usual diet Activity on Discharge: As tolerated Stand Alone Forms: Patient Portal Discharge page Care Plan Goals: C diff colitis take po Vancomycin 4x per per day 5 days,than take 3x per day x one week,than twice daily one week,than once daily one week,than every other day one week than every , , Saturday two months, take po Vancomycin when takes antibiotics in future Health Concerns: strongly recommend to abstain from smoking take all other medications as prescribed Plan of Treatment: Follow-up with primary care physician Assessment: As above
--- NOTE | 2022-12-30 14:08 | MHC.CM.PN ---
PT MEDICALLY CLEARED FOR D/C HOME SELF-CARE, PT HAS ALREADY ARRANGED TRANSPORT AND IS WAITING FOR HER RIDE
== END 2022-12-30 14:50 | disposition home or self-care (01) ==
LOC: HO.ED 06:45 → HO.EDOVER 14:05 → HO.S3 19:10
PROVIDERS: Admitting Provider Student in an Organized Health Care Education/Training Program; Emergency Provider Internal Medicine; PCP Family Medicine; Visit Provider Hospitalist
DX: A04.72 Enterocolitis due to Clostridium difficile, not specified as recurrent (principal); E87.6 Hypokalemia; K52.9 Noninfective gastroenteritis and colitis, unspecified; R53.1 Weakness; E87.20 Acidosis, unspecified; D72.829 Elevated white blood cell count, unspecified; R60.0 Localized edema; M79.671 Pain in right foot; G89.29 Other chronic pain; Z20.822 Contact with and (suspected) exposure to COVID-19; Z20.828 Contact with and (suspected) exposure to other viral communicable diseases; J44.9 Chronic obstructive pulmonary disease, unspecified; F17.210 Nicotine dependence, cigarettes, uncomplicated; F12.90 Cannabis use, unspecified, uncomplicated; Z86.73 Personal history of transient ischemic attack (TIA), and cerebral infarction without residual deficits; Z90.49 Acquired absence of other specified parts of digestive tract; Z90.710 Acquired absence of both cervix and uterus; Z79.52 Long term (current) use of systemic steroids; Z79.01 Long term (current) use of anticoagulants; Z79.899 Other long term (current) drug therapy; Z79.02 Long term (current) use of antithrombotics/antiplatelets
CPT/HCPCS: 0241U; 36415; 73630; 74176; 80048; 80053; 82947; 83605; 83735; 84132; 85025; 85027; 85652; 86140; 87040; 87324; 87493; 93005; 94640; 96361; 96365; 96366; 96367; 96375; 97162; 99221; 99285; J2405

== ENCOUNTER 2023-01-03 01:51 | Emergency (ER) | payer MEDICARE, MEDICAID, SELFPAY ==
[2023-01-03 02:02] VITALS: BP 129/66; PULSE 103; RESP 20; TEMP 37.1; O2SAT 95; BMI 24.5
--- NOTE | 2023-01-03 02:09 | ED.GENADULT ---
HPI - General Adult General Chief complaint: General Medical Stated complaint: leg cellulitis Time Seen by Provider: 01/03/23 02:00 Source: patient Mode of arrival: ambulatory Limitations: no limitations History of Present Illness HPI narrative: Patient comes to the emergency room complaining of worsening lower extremity edema and new onset cellulitis. Patient states that for the last couple of days, her legs have gotten much more swollen, painful and erythematous. Patient was discharged from this facility approximately 3 days ago, patient was here for C diff. patient states that she is still taking p.o. vancomycin. Patient denies fever or chills Related Data Home Medications Medication Instructions Recorded Confirmed lorazepam 1 mg tablet 1 mg PO BID PRN Anxiety 08/15/20 12/27/22 pravastatin 40 mg tablet 40 mg PO BEDTIME 08/15/20 12/27/22 albuterol sulfate 2.5 mg/3 mL 2.5 mg inhalation Q6H PRN 08/31/20 12/27/22 (0.083 %) solution for nebulization Shortness Of Breath Or Wheezing albuterol sulfate 90 mcg/actuation 2 puff inhalation Q4H PRN 08/31/20 12/27/22 aerosol inhaler Shortness Of Breath Or Wheezing bupropion HCl 100 mg tablet,12 hr 100 mg PO BID 08/31/20 12/27/22 sustained-release prednisone 5 mg tablet 5 mg PO DAILY 08/31/20 12/27/22 nortriptyline 75 mg capsule 75 mg PO BEDTIME 04/18/21 12/27/22 apixaban 5 mg tablet 5 mg PO BID 10/21/21 12/27/22 levothyroxine 175 mcg tablet 175 mcg PO DAILY 10/21/21 12/27/22 loratadine 10 mg tablet 10 mg PO DAILY 10/21/21 12/27/22 multivitamin 1 tab PO DAILY 10/21/21 12/27/22 nebulizer and compressor (Vios #1 ea 02/15/22 05/24/22 Aerosol Delivery System) famotidine 20 mg tablet 1 tab PO DAILY 05/24/22 12/27/22 [id number]-aiqakdslaxmmc-[id number] 2 tab PO DAILY PRN headache 11/08/22 12/27/22 50 mg-325 mg-40 mg tablet ferrous sulfate 325 mg (65 mg 1 tab PO DAILY 11/08/22 12/27/22 iron) tablet (FeroSul) sulfasalazine 500 mg tablet 1 tab PO BID 11/08/22 12/27/22 tiotropium bromide 2.5 2 puff inhalation DAILY 11/08/22 12/27/22 mcg/actuation mist for inhalation (Spiriva Respimat) tramadol 50 mg tablet 50 mg PO Q6H PRN pain 11/08/22 12/27/22 fluoxetine 20 mg capsule 2 cap PO DAILY 12/27/22 12/27/22 Previous Rx's Medication Instructions Recorded folic acid 1 mg tablet 1 mg PO DAILY #30 tabs 05/16/21 hydroxychloroquine 200 mg tablet 200 mg PO BID #60 tabs 05/16/21 nicotine 21 mg/24 hr daily 21 mg transdermal DAILY #28 ea 12/30/22 transdermal patch vancomycin 125 mg capsule 125 mg PO Q6H #90 caps 12/30/22 Allergies Allergy/AdvReac Type Severity Reaction Status Date / Time clarithromycin Allergy Intermediate FACIAL Verified 11/28/22 15:05 [CLARITHROMYCIN] SWELLING/REDNESS, facial rash, facial rash, facial rash, facial rash Review of Systems Review of Systems: Constitutional : No Weight loss, No Fever, No Chills, No Night Sweats, No Fatigue, No Malaise ENT/Mouth : No Hearing loss, No Ear Pain, No Nasal Congestion, No Sinus Pain, No Hoarseness, No sore throat, No Rhinorrhea, No Swallowing Difficulty Eyes: No Eye Pain, No Swelling, No Redness, No Foreign Body, No Discharge, No Vision Changes Cardiovascular : No Chest Pain, No SOB, No Dyspnea on Exertion, No Orthopnea, No Edema, No Palpitations Respiratory : No Cough, No Sputum, No Wheezing, No Smoke Exposure, No Dyspnea Gastrointestinal : No Nausea, No Vomiting, No Diarrhea, No Constipation, No abdominal Pain, No Hematochezia, No Melena Genitourinary : no irregular bleeding, No Dysuria, No Urinary Frequency, No Hematuria, No Urinary Incontinence, No Urgency, No Flank Pain, No Urinary Flow Changes, No Hesitancy Musculoskeletal : No joint pain, No Myalgias, No Joint Swelling Skin : Complaining of bilateral lower extremity edema getting much worse and also new onset cellulitis Neuro : No Weakness, No Numbness, No Paresthesias, No Loss of Consciousness, No Dizziness, No Headache Psych : No Anxiety/Panic, No Depression, No SI/HI/AH/VH, No Social Issues, Heme/Lymph: No Bruising, No Bleeding,No Lymphadenopathy Endocrine : No Polyuria, No Polydipsia, No Temperature Intolerance [facility] Past Medical History Medical History C. difficile colitis Cellulitis Cellulitis Cellulitis of right leg Charcot's joint of foot COPD (chronic obstructive pulmonary disease) CVA (cerebral vascular accident) Falling Fibromyalgia Hypothyroid Immunosuppression due to chronic steroid use Lupus Mixed connective tissue disease PAD (peripheral artery disease) Pneumonia due to COVID-19 virus Proteinuria Redness and swelling of lower leg Respiratory failure with hypoxia Rheumatoid arthritis Rheumatoid arthritis Secondary bacterial pneumonia Varicose veins of right lower extremity with inflammation Surgical History History of breast lump/mass excision History of bunionectomy History of cholecystectomy History of excision of mass History of partial hysterectomy Family History Family History Father No problems noted. Mother Lung cancer Social History Social History Household Members: Family Household Members Other:: 3 Housing: Apartment Do you presently have visiting nurse or other home services: Yes ([employer]) Alcohol intake: never Patient Tobacco Use Status: Current everyday Tobacco user Tobacco use type: Cigarette Cigarette Packs Per Day: 1 Cigarettes Per Day: 20.0 Years Smoked: 30 Second Hand Smoke Exposure: No Substance Use Type: Marijuana Advance Directives: Yes Advance Directives on File: Yes Advance Directives Date on File: 11/26/21 service: No Current occupational status: unemployed and disabled Current occupation: right hand dominant Physical Exam ED Vital Signs: Vital Signs - 24 hr 01/03/23 02:02 Temperature 98.7 F Pulse Rate 103 H Respiratory Rate 20 Blood Pressure 129/66 Pulse Oximetry 95 Oxygen Delivery Method Room Air BMI result Body Mass Index 24.5 Const Other: Appearance: Alert. Oriented X3. No acute distress. Eyes: Pupils equal, round and reactive to light. ENT: Pharynx normal. Neck: Normal inspection. Neck supple. No lymph nodes noted. No crepitus CVS: Normal heart rate and rhythm. Pulses normal. Normal S1 and S2 Respiratory: No respiratory distress. Breath sounds normal. No Wheezing. No rales Abdomen: Soft and nontender. No rigidity. No distention. Skin: Skin warm and dry. Normal skin color. Normal skin turgor. Extremities: +3 pitting edema bilateral, patient has Charcot foot deformity , erythema in both calf, pain to palpation Neuro: Oriented X 3. No motor deficit. No sensory deficit. Moving all extremities. No slurred speech. CN 2 through 12 grossly intact Psych: calm, cooperative, normal affect Course Course Course Narrative: -patient's legs are more swollen than usual and now patient has erythema and lower extremities. Patient is currently taking p.o. vancomycin for C diff Medical Decision Making Medical Decision Making [facility] Narrative: -patient's white blood cell count is chronically elevated, lactic acid 1.1. -patient has very mild cellulitis, -given the current situation that patient is on oral vancomycin, I discussed the patient with Dr. Fall and considered admitting the patient. After comparing patient's treatment options for Best Care, at this time we both agree that p.o. Keflex w/o doxy is the best alternative , and to continue taking p.o. vancomycin -also, I offered to the patient Lasix for lower extremity edema. Patient declined, states that her dispatch supervisor told her not to take any diuretics because of her kidney function. I discussed with the patient that her kidney function is within normal limits. But patient respectfully declined. = I discussed with the patient that she needs compression stockings. -patient is very reluctant about going home. After discussing the options with the patient, patient is agreeable to take p.o. antibiotics and would like to be evaluated by Case Management and Physical therapy for home care versus short-term rehab -case management and physical therapy consult pending -patient given the 1st dose of Keflex in the ED. -physician observation started at 03:40 Differential Diagnosis Differential Diagnoses: The differential diagnosis associated with the presentation includes Lab Data [facility] Lab Attestation statement: I reviewed the patient's lab results. 01/03/23 02:35 01/03/23 02:35 Labs: Lab Results 01/03/23 01/03/23 01/03/23 Range/Units 02:35 02:35 02:35 WBC 14.1 H (4.8-10.8) X10*3/uL RBC 5.05 (4.20-5.50) X10*6/uL Hgb 11.6 L (12.0-16.0) g/dl Hct 38.8 (37.0-47.0) % MCV 76.8 L (80.0-98.0) fL MCH 23.0 L (27.0-33.0) pg MCHC 29.9 L (31.0-35.0) g/dl RDW 15.4 (11.0-16.0) % Plt Count 252 (160-400) X10*3/uL MPV 9.1 L (9.4-12.3) fL Immature Gran % (Auto) 0.7 H (0.0-0.4) % Neut % (Auto) 76.6 H (45-73) % Lymph % (Auto) 12.9 L (20-40) % Laurens % (Auto) 8.7 (2-11) % Eos % (Auto) 0.6 (0-4) % Baso % (Auto) 0.5 (0-2) % Lymph # (Auto) 1.8 (1.2-4.9) X10*3/uL Laurens # (Auto) 1.2 (0.1-1.2) X10*3/uL Eos # (Auto) 0.1 (0.0-0.4) X10*3/uL Baso # (Auto) 0.1 (0.0-0.2) X10*3/uL Abs Immat Gran (auto) 0.10 H (0.00-0.03) X10*3/uL Absolute Neuts (auto) 10.8 H (2.0-8.3) x10*3/uL Absolute Nucleated RBC 0.000 (0.0-0.012) X10*3/uL Nucleated RBC % (auto) 0.0 (0.0-0.2) /100WBC Sodium 142 (135-145) mmol/L Potassium 4.5 (3.3-5.1) mmol/L Chloride 102 (96-108) mmol/L Carbon Dioxide 31 H (22-29) mmol/L Anion Gap 14 (12-20) BUN 8 L (9-16) mg/dL Creatinine 0.69 (0.5-1.4) mg/dL Estim Creat Clear Calc 84.9 Estimated GFR > 60 Random Glucose 73 (60-115) mg/dL Lactic Acid 1.1 (0.5-2.0) mmol/L Calcium 8.0 L D (8.4-10.2) mg/dL Total Bilirubin 0.2 (0.0-1.0) mg/dL Direct Bilirubin < 0.2 (0.0-0.5) mg/dL AST 30 (5-31) U/L ALT 34 H (0-31) U/L Alkaline Phosphatase 151 H (39-117) U/L B-Natriuretic Peptide (<100) pg/mL Total Protein 3.8 L (6.5-8.0) g/dL Albumin 1.7 L (3.5-5.0) g/dL COVID-19 ([facility]UEL [facility]GEL) (Negative) COVID-19 Clin Com 01/03/23 01/03/23 Range/Units 02:35 02:35 WBC (4.8-10.8) X10*3/uL RBC (4.20-5.50) X10*6/uL Hgb (12.0-16.0) g/dl Hct (37.0-47.0) % MCV (80.0-98.0) fL MCH (27.0-33.0) pg MCHC (31.0-35.0) g/dl RDW (11.0-16.0) % Plt Count (160-400) X10*3/uL MPV (9.4-12.3) fL Immature Gran % (Auto) (0.0-0.4) % Neut % (Auto) (45-73) % Lymph % (Auto) (20-40) % Laurens % (Auto) (2-11) % Eos % (Auto) (0-4) % Baso % (Auto) (0-2) % Lymph # (Auto) (1.2-4.9) X10*3/uL Laurens # (Auto) (0.1-1.2) X10*3/uL Eos # (Auto) (0.0-0.4) X10*3/uL Baso # (Auto) (0.0-0.2) X10*3/uL Abs Immat Gran (auto) (0.00-0.03) X10*3/uL Absolute Neuts (auto) (2.0-8.3) x10*3/uL Absolute Nucleated RBC (0.0-0.012) X10*3/uL Nucleated RBC % (auto) (0.0-0.2) /100WBC Sodium (135-145) mmol/L Potassium (3.3-5.1) mmol/L Chloride (96-108) mmol/L Carbon Dioxide (22-29) mmol/L Anion Gap (12-20) BUN (9-16) mg/dL Creatinine (0.5-1.4) mg/dL Estim Creat Clear Calc Estimated GFR Random Glucose (60-115) mg/dL Lactic Acid (0.5-2.0) mmol/L Calcium (8.4-10.2) mg/dL Total Bilirubin (0.0-1.0) mg/dL Direct Bilirubin (0.0-0.5) mg/dL AST (5-31) U/L ALT (0-31) U/L Alkaline Phosphatase (39-117) U/L B-Natriuretic Peptide 27 (<100) pg/mL Total Protein (6.5-8.0) g/dL Albumin (3.5-5.0) g/dL COVID-19 ([facility] ANGEL) Negative (Negative) COVID-19 Clin Com See Note Discharge Plan Discharge Clinical Impression: Edema of both lower extremities, Cellulitis Patient Disposition: Still a Patient Prescriptions: No Action folic acid 1 mg tablet 1 mg PO DAILY Qty: 30 3RF hydroxychloroquine 200 mg tablet 200 mg PO BID Qty: 60 3RF albuterol sulfate 2.5 mg /3 mL (0.083 %) solution for nebulization 2.5 mg inhalation Q6H PRN (Reason: Shortness Of Breath Or Wheezing) prednisone 5 mg tablet 5 mg PO DAILY bupropion HCl 100 mg tablet sustained-release 12 hr 100 mg PO BID albuterol sulfate 90 mcg/actuation HFA aerosol inhaler 2 puff inhalation Q4H PRN (Reason: Shortness Of Breath Or Wheezing) loratadine 10 mg Tablet 10 mg PO DAILY multivitamin Tablet 1 tab PO DAILY apixaban 5 mg Tablet 5 mg PO BID levothyroxine 175 mcg Tablet 175 mcg PO DAILY fluoxetine 20 mg capsule 2 cap PO DAILY nicotine 21 mg/24 hr Patch 24 Hour 21 mg transdermal DAILY Qty: 28 0RF vancomycin 125 mg Capsule 125 mg PO Q6H Qty: 90 0RF Rx Instructions: take po Vancomycin 4x per per day 5 days,than take 3x per day x one week,than twice daily one week,than once daily one week,than every other day one week than every , , Saturday two months, famotidine 20 mg tablet 1 tab PO DAILY cmtljfqvzs-tdsqymkllqvge-ngap 50-325-40 mg tablet 2 tab PO DAILY PRN (Reason: headache) sulfasalazine 500 mg tablet 1 tab PO BID ferrous sulfate [FeroSul] 325 mg (65 mg iron) tablet 1 tab PO DAILY Spiriva Respimat 2.5 mcg/actuation mist 2 puff INHALATION DAILY tramadol 50 mg tablet 50 mg PO Q6H PRN (Reason: pain) nortriptyline 75 mg capsule 75 mg PO BEDTIME lorazepam 1 mg tablet 1 mg PO BID PRN (Reason: Anxiety) pravastatin 40 mg tablet 40 mg PO BEDTIME (DME) nebulizer and compressor [Vios Aerosol Delivery System] Device See Rx Instructions .ROUTE DIRECTED Qty: 1 Rx Instructions: As directed
--- NOTE | 2023-01-03 02:41 | PC.NURSE ---
PT A&Ox4, reports BLL swelling and weeping. +2 pitting edema noted. IV line placed. Blood work collected and sent to lab. Furosemide not given , PT states she her kidney doctor told her not to take any water pills, provider aware.
[2023-01-03 02:42] LABS: MANUAL DIFF FLAG NO
[2023-01-03 02:43] LABS: Basophils Absolute Auto 0.1 X10*3/uL (0.0-0.2); Basophils Percent Auto 0.5 % (0-2); Eosinophils Absolute Auto 0.1 X10*3/uL (0.0-0.4); Eosinophils Percent Auto 0.6 % (0-4); Hematocrit 38.8 % (37.0-47.0); Hemoglobin 11.6 g/dl (12.0-16.0); Imm Gran Pct Auto 0.7 % (0.0-0.4); Lymphocytes Absolute Auto 1.8 X10*3/uL (1.2-4.9); Lymphocytes Percent Auto 12.9 % (20-40); Mean Corpuscular HGB Conc 29.9 g/dl (31.0-35.0); Mean Corpuscular Volume 76.8 fL (80.0-98.0); Mean Platelet Volume 9.1 fL (9.4-12.3); Monocytes Absolute Auto 1.2 X10*3/uL (0.1-1.2); Monocytes Percent Auto 8.7 % (2-11); Neutrophils Absolute Auto 10.8 x10*3/uL (2.0-8.3); Neutrophils Percent Auto 76.6 % (45-73); Platelet Count 252 X10*3/uL (160-400); Red Blood Count 5.05 X10*6/uL (4.20-5.50); Red Cell Distribution Width 15.4 % (11.0-16.0); White Blood Count 14.1 X10*3/uL (4.8-10.8)
[2023-01-03 02:53] LABS: COVID-19 Test Negative (Negative); IDNOW Serial# 6674DD1D
[2023-01-03 02:56] LABS: Lactic Acid 1.1 mmol/L (0.5-2.0)
[2023-01-03 03:01] LABS: Alanine Aminotransferase 34 U/L (0-31); Albumin Level 1.7 g/dL (3.5-5.0); Alkaline Phosphatase 151 U/L (39-117); Anion Gap 14 (12-20); Aspartate Amino Transferase 30 U/L (5-31); Bilirubin Direct < 0.2 mg/dL (0.0-0.5); Bilirubin Total 0.2 mg/dL (0.0-1.0); Blood Urea Nitrogen 8 mg/dL (9-16); Carbon Dioxide 31 mmol/L (22-29); Chloride 102 mmol/L (96-108); Creatinine Clr Calc Pharmacy 84.9; Estimated Glomerular Filt Rate > 60; Glucose Random 73 mg/dL (60-115); Potassium 4.5 mmol/L (3.3-5.1); Sodium 142 mmol/L (135-145); Total Protein 3.8 g/dL (6.5-8.0)
[2023-01-03 03:23] LABS: B Type Natriuretic Peptide 27 pg/mL (<100)
[2023-01-03 04:25] VITALS: BP 96/55; PULSE 88; RESP 14; TEMP 36.8; O2SAT 93
[2023-01-03 06:11] VITALS: BP 94/49; PULSE 85; RESP 16; O2SAT 92
[2023-01-03 06:51] VITALS: BP 101/53; PULSE 82; RESP 16; TEMP 36.9; O2SAT 93
--- NOTE | 2023-01-03 09:13 | PHA.MEDREC ---
Pharmacy Consult ? Medication Reconciliation Pharmacy has completed the medication reconciliation Patient was just discharged 12/30.
[2023-01-03] MEDS: cephALEXin 500 MG CAPSULE PO (09:19)
[2023-01-03 09:20] VITALS: BP 104/51; PULSE 84; RESP 16; TEMP 36.8; O2SAT 93
--- NOTE | 2023-01-03 11:22 | MHC.CM.ED ---
Received case management consult overnight. Patient came to the ER due to cellulitis. Patient was discharged home without services from [facility] on 12/31. Patient was found to be positive for C diff on 12/27. Physical therapy eval completed. Short term rehab is recommended. Met with patient in regards to discharge planning. Patient lives with her children and had no services prior to coming to the ER. PCP verified. Copy of HCP verified to be on file. Patient received 3 Pfizer vaccines. Patient has been to [facility] in the past and is requesting referral be made there. Referral made via [facility]. They do not have a bed available. Referral broadcasted in [facility]. The following facilities are able to offer a bed: [facility], [facility], [facility], [facility], [facility], [address] [place] [address] and [facility]. These options were presented to patient. Patient would like to think about what her 1st choice will be. CM will meet with patient again. Continue to monitor for d/c needs.
--- NOTE | 2023-01-03 11:39 | PC.NURSE ---
THIS RN ASSUMED CARE OF THIS PT AT 0700 FROM ED 12. PT DENIES PAIN, VSS. BOTH BILAT HANDS AND FEET EDEMATOUS, RADHA WILLETT AWARE. PT WAS SEEN BY PHYSICAL THERAPIST. MED GIVEN DOCUMENTED. NO COMPLAINTS.
[2023-01-03 12:41] VITALS: BP 104/63; PULSE 83; RESP 20; TEMP 36.8; O2SAT 95
[2023-01-03] MEDS: vancomycin HCL 125 MG CAPSULE PO (12:58)
--- NOTE | 2023-01-03 14:01 | MHC.CM.ED ---
Addendum entered by Chio Dewey 01/03/23 14:37: [facility] accepts patient. Patient can leave at 4pm. Gema ALMONTE booked. Med [facility] with chart. Patient, Wes JAMES and Caterina GAY aware. Left voicemail for sister, Hafsa with discharge info. Original Note: Patient accepted bed at [facility]. However that bed is no longer available. Patient accepted bed at [facility]. Waiting to get confirmation from facility about bed acceptance and what time patient can leave ER. Continue to monitor for d/c needs.
== END 2023-01-03 16:02 | disposition skilled nursing facility (03) ==
PROVIDERS: Emergency Provider Emergency Medicine; PCP Family Medicine
DX: L03.115 Cellulitis of right lower limb (principal); L03.116 Cellulitis of left lower limb; R26.2 Difficulty in walking, not elsewhere classified; R06.02 Shortness of breath; Z20.822 Contact with and (suspected) exposure to COVID-19; Z20.828 Contact with and (suspected) exposure to other viral communicable diseases; Z79.899 Other long term (current) drug therapy
CPT/HCPCS: 36415; 80048; 80076; 83605; 83880; 85025; 87040; 87635; 97162; 99284

== ENCOUNTER 2023-04-11 17:00 | Outpatient (REF) | payer MEDICARE, MEDICAID, SELFPAY ==
[2023-04-11 18:42] LABS: CDiff Gene PCR POSITIVE (Negative)
[2023-04-11 19:21] LABS: CDIFF Internal ctrl Dots and bkg OK (V)
[2023-04-11 20:03] LABS: CDiff Toxin Positive (Negative)
== END 2023-04-11 17:01 | disposition home or self-care (01) ==
LOC: HO.LNP 17:00
PROVIDERS: Visit Provider Family Medicine
DX: R19.7 Diarrhea, unspecified (principal)
CPT/HCPCS: 87324; 87493

== ENCOUNTER 2023-05-15 20:41 | Emergency (ER) | payer MEDICARE, MEDICAID, SELFPAY ==
--- NOTE | ~2023-05-15 | US_ITS ---
EXAMINATION: US VENOUS ULTRASOUND WITH DOPPLER LOWER EXTREMITY, RIGHT CLINICAL INFORMATION: Right lower extremity edema. COMPARISON: 05/24/2022 TECHNIQUE: Ultrasound of the deep veins is performed from the hip to the calf with compression sonography and color and pulse Doppler assessment. Spectral analysis with color-flow imaging is performed. FINDINGS: There is normal venous compression and respiratory variation and augmented flow. The visualized common femoral vein, superficial femoral vein, profunda femoral vein, popliteal vein, and the trifurcation region shows no evidence of deep venous thrombosis. Fluid collection in the right popliteal fossa measures 3.1 x 1.1 x 2.7 cm. No internal color Doppler flow. Subcutaneous edema of the right calf. Incidental note is made of a right inguinal lymph node measuring 1.8 cm likely on a reactive basis. If the patient's symptoms persist, followup ultrasound in 5 days 7 days might be of value to exclude proximal propagation from a non-visualized calf vein. US/US venous duplex LE RT IMPRESSION: No DVT demonstrated in the right lower extremity. Right popliteal fossa fluid collection measures 3.1 x 1.1 x 2.7 cm.
[2023-05-15 20:46] VITALS: BP 110/45; PULSE 95; RESP 18; TEMP 36.6; O2SAT 95; BMI 24.6
--- NOTE | 2023-05-15 20:47 | ED_ITS ---
HPI - Extremity Injury (Lower) General Chief Complaint: Extremity Problem Stated Complaint: Right led/Right foot swollen Time Seen by Provider: 05/15/23 21:56 Source: patient, RN notes reviewed and old records reviewed Mode of arrival: ambulatory Limitations: no limitations History of Present Illness HPI Narrative: 47-year-old female presents for evaluation of right lower leg redness, swelling and pain. Patient denies any injury to the area She reports that her symptoms have been worsening over the last 3-4 days She reports that she has been scratching an area just above her ankle Patient reports having foot surgery February 19 Denies any fevers or chills Patient reports a history of ?osteoarthritis and rheumatoid arthritis. Related Data Home Medications Medication Instructions Recorded Confirmed lorazepam 1 mg tablet 1 mg PO BID PRN Anxiety 08/15/20 01/03/23 pravastatin 40 mg tablet 40 mg PO BEDTIME 08/15/20 01/03/23 albuterol sulfate 2.5 mg/3 mL 2.5 mg inhalation Q6H PRN 08/31/20 01/03/23 (0.083 %) solution for nebulization Shortness Of Breath Or Wheezing albuterol sulfate 90 mcg/actuation 2 puff inhalation Q4H PRN 08/31/20 01/03/23 aerosol inhaler Shortness Of Breath Or Wheezing bupropion HCl 100 mg tablet,12 hr 100 mg PO BID 08/31/20 01/03/23 sustained-release prednisone 5 mg tablet 5 mg PO DAILY 08/31/20 01/03/23 nortriptyline 75 mg capsule 75 mg PO BEDTIME 04/18/21 01/03/23 loratadine 10 mg tablet 10 mg PO DAILY 10/21/21 01/03/23 nebulizer and compressor (Vios #1 ea 02/15/22 05/24/22 Aerosol Delivery System) famotidine 20 mg tablet 1 tab PO DAILY 05/24/22 01/03/23 oedcgqsbji-uvomnzguxqgif-hzsebgyw 2 tab PO DAILY PRN headache 11/08/22 01/03/23 50 mg-325 mg-40 mg tablet ferrous sulfate 325 mg (65 mg 1 tab PO DAILY 11/08/22 01/03/23 iron) tablet (FeroSul) sulfasalazine 500 mg tablet 1 tab PO BID 11/08/22 01/03/23 tiotropium bromide 2.5 2 puff inhalation DAILY 11/08/22 01/03/23 mcg/actuation mist for inhalation (Spiriva Respimat) tramadol 50 mg tablet 50 mg PO Q6H PRN pain 11/08/22 01/03/23 fluoxetine 20 mg capsule 2 cap PO DAILY 12/27/22 01/03/23 apixaban 5 mg tablet (Eliquis) 5 mg PO BID 01/03/23 01/03/23 fluticasone propionate 220 1 inh inhalation BID 01/03/23 01/03/23 mcg/actuation HFA aerosol inhaler (Flovent HFA) folic acid 1 mg tablet 1 mg PO DAILY 01/03/23 01/03/23 levothyroxine 175 mcg tablet 175 mcg PO DAILY 01/03/23 01/03/23 multivitamin (One Daily 1 tab PO DAILY 01/03/23 01/03/23 Multivitamin tablet) Previous Rx's Medication Instructions Recorded hydroxychloroquine 200 mg tablet 200 mg PO BID #60 tabs 05/16/21 nicotine 21 mg/24 hr daily 21 mg transdermal DAILY #28 ea 12/30/22 transdermal patch vancomycin 125 mg capsule 125 mg PO Q6H #90 caps 12/30/22 lorazepam 1 mg tablet 1 mg PO BID PRN anxiety #10 tabs 01/03/23 cephalexin 500 mg capsule 500 mg PO QID #28 caps 05/15/23 doxycycline hyclate 100 mg tablet 100 mg PO BID #14 tabs 05/15/23 Allergies Allergy/AdvReac Type Severity Reaction Status Date / Time clarithromycin Allergy Intermediate FACIAL Verified 01/03/23 05:17 [CLARITHROMYCIN] SWELLING/REDNESS, facial rash, facial rash, facial rash, facial rash Review of Systems Constitutional: Constitutional: Denies chills and Denies fever(s) Integumentary/Breasts: Skin/Breast: Reports swelling and Reports erythema PMFSH Past Medical History Medical History C. difficile colitis Cellulitis Cellulitis Cellulitis of right leg Charcot's joint of foot COPD (chronic obstructive pulmonary disease) CVA (cerebral vascular accident) Falling Fibromyalgia Hypothyroid Immunosuppression due to chronic steroid use Lupus Mixed connective tissue disease PAD (peripheral artery disease) Pneumonia due to COVID-19 virus Proteinuria Redness and swelling of lower leg Respiratory failure with hypoxia Rheumatoid arthritis Rheumatoid arthritis Secondary bacterial pneumonia Varicose veins of right lower extremity with inflammation Surgical History History of breast lump/mass excision History of bunionectomy History of cholecystectomy History of excision of mass History of partial hysterectomy Family History Family History Father No problems noted. Mother Lung cancer Social History Social History Household Members: Family Household Members Other:: 3 Housing: Apartment Do you presently have visiting nurse or other home services: Yes ([employer]) Alcohol intake: never Patient Tobacco Use Status: Current everyday Tobacco user Tobacco use type: Cigarette Cigarette Packs Per Day: 1 Cigarettes Per Day: 20.0 Years Smoked: 30 Second Hand Smoke Exposure: No Substance Use Type: Marijuana Advance Directives: Yes Advance Directives on File: Yes Advance Directives Date on File: 11/26/21 service: No Current occupational status: unemployed and disabled Current occupation: right hand dominant Physical Exam 2 Vital Signs: Vital Signs: Last Vital Signs Temp 98.8 F 05/15/23 22:05 Pulse 89 05/15/23 22:05 Resp 18 05/15/23 22:05 BP 104/61 05/15/23 22:05 Pulse Ox 97 05/15/23 22:05 O2 Del Method Room Air 05/15/23 22:05 BMI result Body Mass Index 24.6 Const: General: healthy appearing, comfortable, no acute distress, alert and awake Nutritional Appearance: well nourished Orientation/consciousness: patient oriented x3 HEENT: Head: Yes normocephalic and Yes atraumatic Eyes: Eyelids: Yes eyelids normal Conjunctivae: conjunctivae normal Sclerae: sclerae normal Corneas: corneas normal Pupils: Equal, round and reactive pupils present EOM: EOMs intact bilaterally Neck: Neck: Yes full ROM Resp: Effort & Inspection: normal respiratory effort, able to speak in complete sentences and not labored Skin: General skin exam: elasticity normal Neuro: General: patient oriented x3 Cranial nerves: Yes Equal, round and reactive pupils present and Yes Bilaterally intact EOM present Cognition (Neuro): normal cognition Extrem: Other: Patient has 2+ nonpitting edema to right lower extremity below the knee. No palpable cords. She does have significant calf tenderness. Most of the right lower extremity below the knee is erythematous with increased warmth. No obvious open wounds Course Course Course Narrative: RME: 47-year-old female with a PMH significant for?COPD steroid dependent, lupus, rheumatoid arthritis, CVA, mixed connective tissue disorder, anxiety and panic attacks, PAD on Eliquis, and Charcot foot s/p surgery at [facility] in February presents to the ED complaining of RLE swelling and discomfort x few days. Reports compliance with Eliquis. Denies SOB/fever 4+ pitting edema to RLE with distal mild erythema and warmth. NV intact. All to trickle scars noted Labs, lactic/blood cultures, venous duplex ultrasound ordered Full HPI, ROS and PE to be performed by primary ED provider. Medical Decision Making Medical Decision Making [facility] Narrative: For private female presents for evaluation of atraumatic right lower leg redness, pain and swelling. This consistent with cellulitis. Ultrasound was ordered to rule out DVT. No evidence of sepsis. Differential Diagnosis Cellulitis DVT Ram cyst Lymphangitis Lymphedema Admission/Observation Consideration of admission/observation: Escalation of care including admission/observation considered No evidence of sepsis, the for the patient will be discharged on oral antibiotic Lab Data [facility] Lab Attestation statement: I reviewed the patient's lab results. ([place] [address]. Electrolytes within normal limits. Renal function within normal limits. Lactic acid normal at 1.1. Alk-phos slightly elevated to 154. Patient has mild hypoalbuminemia at 2.7.) 05/15/23 21:07 05/15/23 21:07 Labs: Lab Results 05/15/23 05/15/23 05/15/23 Range/Units 21:07 21:07 21:07 WBC 11.0 H (4.8-10.8) X10*3/uL RBC 4.34 (4.20-5.50) X10*6/uL Hgb 10.6 L (12.0-16.0) g/dl Hct 35.1 L (37.0-47.0) % MCV 80.9 (80.0-98.0) fL MCH 24.4 L (27.0-33.0) pg MCHC 30.2 L (31.0-35.0) g/dl RDW 16.0 (11.0-16.0) % Plt Count 201 (160-400) X10*3/uL MPV 9.2 L (9.4-12.3) fL Immature Gran % (Auto) 0.5 H (0.0-0.4) % Neut % (Auto) 65.4 (45-73) % Lymph % (Auto) 20.1 (20-40) % [place] % (Auto) 8.4 (2-11) % Eos % (Auto) 5.1 H (0-4) % Baso % (Auto) 0.5 (0-2) % Lymph # (Auto) 2.2 (1.2-4.9) X10*3/uL [place] # (Auto) 0.9 (0.1-1.2) X10*3/uL Eos # (Auto) 0.6 H (0.0-0.4) X10*3/uL Baso # (Auto) 0.1 (0.0-0.2) X10*3/uL Abs Immat Gran (auto) 0.05 H (0.00-0.03) X10*3/uL Absolute Neuts (auto) 7.2 (2.0-8.3) x10*3/uL Absolute Nucleated RBC 0.000 (0.0-0.012) X10*3/uL Nucleated RBC % (auto) 0.0 (0.0-0.2) /100WBC PT 11.6 (10.0-13.1) SEC INR 1.0 (0.9-1.1) Sodium 138 (135-145) mmol/L Potassium 4.2 (3.3-5.1) mmol/L Chloride 104 (96-108) mmol/L Carbon Dioxide 31 H (22-29) mmol/L Anion Gap 7 L (12-20) BUN 9 (9-16) mg/dL Creatinine 0.68 (0.5-1.4) mg/dL Estim Creat Clear Calc 86.2 Estimated GFR > 60 Random Glucose 105 (60-115) mg/dL Lactic Acid (0.5-2.0) mmol/L Calcium 9.2 D (8.4-10.2) mg/dL Total Bilirubin 0.2 (0.0-1.0) mg/dL Direct Bilirubin < 0.2 (0.0-0.5) mg/dL AST 27 (5-31) U/L ALT 25 (0-31) U/L Alkaline Phosphatase 154 H (39-117) U/L B-Natriuretic Peptide (<100) pg/mL Total Protein 5.5 L (6.5-8.0) g/dL Albumin 2.7 L (3.5-5.0) g/dL 05/15/23 05/15/23 Range/Units 21:07 21:08 WBC (4.8-10.8) X10*3/uL RBC (4.20-5.50) X10*6/uL Hgb (12.0-16.0) g/dl Hct (37.0-47.0) % MCV (80.0-98.0) fL MCH (27.0-33.0) pg MCHC (31.0-35.0) g/dl RDW (11.0-16.0) % Plt Count (160-400) X10*3/uL MPV (9.4-12.3) fL Immature Gran % (Auto) (0.0-0.4) % Neut % (Auto) (45-73) % Lymph % (Auto) (20-40) % [place] % (Auto) (2-11) % Eos % (Auto) (0-4) % Baso % (Auto) (0-2) % Lymph # (Auto) (1.2-4.9) X10*3/uL [place] # (Auto) (0.1-1.2) X10*3/uL Eos # (Auto) (0.0-0.4) X10*3/uL Baso # (Auto) (0.0-0.2) X10*3/uL Abs Immat Gran (auto) (0.00-0.03) X10*3/uL Absolute Neuts (auto) (2.0-8.3) x10*3/uL Absolute Nucleated RBC (0.0-0.012) X10*3/uL Nucleated RBC % (auto) (0.0-0.2) /100WBC PT (10.0-13.1) SEC INR (0.9-1.1) Sodium (135-145) mmol/L Potassium (3.3-5.1) mmol/L Chloride (96-108) mmol/L Carbon Dioxide (22-29) mmol/L Anion Gap (12-20) BUN (9-16) mg/dL Creatinine (0.5-1.4) mg/dL Estim Creat Clear Calc Estimated GFR Random Glucose (60-115) mg/dL Lactic Acid 1.1 (0.5-2.0) mmol/L Calcium (8.4-10.2) mg/dL Total Bilirubin (0.0-1.0) mg/dL Direct Bilirubin (0.0-0.5) mg/dL AST (5-31) U/L ALT (0-31) U/L Alkaline Phosphatase (39-117) U/L B-Natriuretic Peptide 27 (<100) pg/mL Total Protein (6.5-8.0) g/dL Albumin (3.5-5.0) g/dL Radiology Impression Discussion of test interpretation with radiology: I have reviewed the radiologist's reading. (Ram's cyst to the right lower extremity, right inguinal lymph node. No DVT) Discharge Plan Discharge Clinical Impression: Cellulitis of leg without foot, right Patient Disposition: Home, Self-Care Instructions: Cellulitis (ED) Additional Instructions: Take both antibiotics as prescribed. Elevate the leg above your heart while resting Return for new or worsening symptoms, especially develop a fever, increasing redness Follow-up with your primary doctor Prescriptions: New cephalexin 500 mg capsule 500 mg PO QID Qty: 28 0RF doxycycline hyclate 100 mg tablet 100 mg PO BID Qty: 14 0RF No Action hydroxychloroquine 200 mg tablet 200 mg PO BID Qty: 60 3RF albuterol sulfate 2.5 mg /3 mL (0.083 %) solution for nebulization 2.5 mg inhalation Q6H PRN (Reason: Shortness Of Breath Or Wheezing) prednisone 5 mg tablet 5 mg PO DAILY bupropion HCl 100 mg tablet sustained-release 12 hr 100 mg PO BID albuterol sulfate 90 mcg/actuation HFA aerosol inhaler 2 puff inhalation Q4H PRN (Reason: Shortness Of Breath Or Wheezing) loratadine 10 mg Tablet 10 mg PO DAILY fluoxetine 20 mg capsule 2 cap PO DAILY nicotine 21 mg/24 hr Patch 24 Hour 21 mg transdermal DAILY Qty: 28 0RF vancomycin 125 mg Capsule 125 mg PO Q6H Qty: 90 0RF Rx Instructions: take po Vancomycin 4x per per day 5 days,than take 3x per day x one week,than twice daily one week,than once daily one week,than every other day one week than every , , Saturday two months, famotidine 20 mg tablet 1 tab PO DAILY bvhnygtunk-vepfnervquatj-wugk 50-325-40 mg tablet 2 tab PO DAILY PRN (Reason: headache) sulfasalazine 500 mg tablet 1 tab PO BID ferrous sulfate [FeroSul] 325 mg (65 mg iron) tablet 1 tab PO DAILY Spiriva Respimat 2.5 mcg/actuation mist 2 puff INHALATION DAILY tramadol 50 mg tablet 50 mg PO Q6H PRN (Reason: pain) multivitamin [One Daily Multivitamin] Tablet 1 tab PO DAILY levothyroxine 175 mcg tablet 175 mcg PO DAILY folic acid 1 mg tablet 1 mg PO DAILY Eliquis 5 mg tablet 5 mg PO BID fluticasone propionate [Flovent HFA] 220 mcg/actuation HFA aerosol inhaler 1 inh INHALATION BID lorazepam 1 mg tablet 1 mg PO BID PRN (Reason: anxiety) Qty: 10 0RF nortriptyline 75 mg capsule 75 mg PO BEDTIME lorazepam 1 mg tablet 1 mg PO BID PRN (Reason: Anxiety) pravastatin 40 mg tablet 40 mg PO BEDTIME (DME) nebulizer and compressor [Vios Aerosol Delivery System] Device See Rx Instructions .ROUTE DIRECTED Qty: 1 Rx Instructions: As directed
--- NOTE | 2023-05-15 21:10 | MHC.EDTECH ---
PATIENT BLOOD DRAWN, 1ST SET BLOOD CULTURE AND LACTIC ACID ALL SENT TO LAB .
[2023-05-15 21:24] LABS: MANUAL DIFF FLAG NO
[2023-05-15 21:26] LABS: Basophils Absolute Auto 0.1 X10*3/uL (0.0-0.2); Basophils Percent Auto 0.5 % (0-2); Eosinophils Absolute Auto 0.6 X10*3/uL (0.0-0.4); Eosinophils Percent Auto 5.1 % (0-4); Hematocrit 35.1 % (37.0-47.0); Hemoglobin 10.6 g/dl (12.0-16.0); Imm Gran Abs Auto 0.05 X10*3/uL (0.00-0.03); Imm Gran Pct Auto 0.5 % (0.0-0.4); Lymphocytes Absolute Auto 2.2 X10*3/uL (1.2-4.9); Lymphocytes Percent Auto 20.1 % (20-40); Mean Corpuscular HGB Conc 30.2 g/dl (31.0-35.0); Mean Corpuscular Hemoglobin 24.4 pg (27.0-33.0); Mean Corpuscular Volume 80.9 fL (80.0-98.0); Mean Platelet Volume 9.2 fL (9.4-12.3); Monocytes Absolute Auto 0.9 X10*3/uL (0.1-1.2); Monocytes Percent Auto 8.4 % (2-11); Neutrophils Absolute Auto 7.2 x10*3/uL (2.0-8.3); Neutrophils Percent Auto 65.4 % (45-73); Platelet Count 201 X10*3/uL (160-400); Red Blood Count 4.34 X10*6/uL (4.20-5.50)
[2023-05-15 21:36] LABS: Lactic Acid 1.1 mmol/L (0.5-2.0)
[2023-05-15 21:38] LABS: Prothrombin Time 11.6 SEC (10.0-13.1)
[2023-05-15 21:48] LABS: Alanine Aminotransferase 25 U/L (0-31); Albumin Level 2.7 g/dL (3.5-5.0); Alkaline Phosphatase 154 U/L (39-117); Anion Gap 7 (12-20); Aspartate Amino Transferase 27 U/L (5-31); Bilirubin Direct < 0.2 mg/dL (0.0-0.5); Bilirubin Total 0.2 mg/dL (0.0-1.0); Blood Urea Nitrogen 9 mg/dL (9-16); Calcium 9.2 mg/dL (8.4-10.2); Carbon Dioxide 31 mmol/L (22-29); Chloride 104 mmol/L (96-108); Creatinine Clr Calc Pharmacy 86.2; Estimated Glomerular Filt Rate > 60; Glucose Random 105 mg/dL (60-115); Potassium 4.2 mmol/L (3.3-5.1); Sodium 138 mmol/L (135-145); Total Protein 5.5 g/dL (6.5-8.0)
[2023-05-15 22:05] VITALS: BP 104/61; PULSE 89; RESP 18; TEMP 37.1; O2SAT 97
[2023-05-15 22:07] LABS: B Type Natriuretic Peptide 27 pg/mL (<100)
[2023-05-15] MEDS: Doxycycline Monohydrate 100 MG CAPSULE PO (22:42)
[2023-05-15] MEDS: cephALEXin 500 MG CAPSULE PO (22:42)
== END 2023-05-15 22:44 | disposition home or self-care (01) ==
PROVIDERS: Physician Assistant; Emergency Provider Student in an Organized Health Care Education/Training Program
DX: L03.115 Cellulitis of right lower limb (principal); M79.661 Pain in right lower leg; M79.89 Other specified soft tissue disorders; F17.210 Nicotine dependence, cigarettes, uncomplicated; Z79.899 Other long term (current) drug therapy
CPT/HCPCS: 36415; 80048; 80076; 83605; 83880; 85025; 85610; 87040; 93971; 99283; 99284

== ENCOUNTER 2023-05-26 00:14 | Emergency (ER) | payer MEDICARE, MEDICAID, SELFPAY ==
[2023-05-26 00:24] VITALS: BP 128/76; PULSE 88; RESP 18; TEMP 37.1; O2SAT 95; BMI 24.2
--- NOTE | 2023-05-26 04:55 | ED.EXTPRO ---
HPI - Extremity Problem General Chief complaint: Extremity Problem Stated complaint: Right leg Swollen Time Seen by Provider: 05/26/23 03:51 Source: patient Mode of arrival: ambulatory History of Present Illness HPI Narrative: 47-year-old female who was seen here in April for similar complaints and states that the swelling has worsened, she is noted to have had prior surgery he on the right foot, she was sent home with antibiotics last time and states that there was no improvement of the swelling and redness. Related Data Home Medications Medication Instructions Recorded Confirmed lorazepam 1 mg tablet 1 mg PO BID PRN Anxiety 08/15/20 01/03/23 pravastatin 40 mg tablet 40 mg PO BEDTIME 08/15/20 01/03/23 albuterol sulfate 2.5 mg/3 mL 2.5 mg inhalation Q6H PRN 08/31/20 01/03/23 (0.083 %) solution for nebulization Shortness Of Breath Or Wheezing albuterol sulfate 90 mcg/actuation 2 puff inhalation Q4H PRN 08/31/20 01/03/23 aerosol inhaler Shortness Of Breath Or Wheezing bupropion HCl 100 mg tablet,12 hr 100 mg PO BID 08/31/20 01/03/23 sustained-release prednisone 5 mg tablet 5 mg PO DAILY 08/31/20 01/03/23 nortriptyline 75 mg capsule 75 mg PO BEDTIME 04/18/21 01/03/23 loratadine 10 mg tablet 10 mg PO DAILY 10/21/21 01/03/23 nebulizer and compressor (Vios #1 ea 02/15/22 05/24/22 Aerosol Delivery System) famotidine 20 mg tablet 1 tab PO DAILY 05/24/22 01/03/23 cmckswnaxn-lmjllvmyzryvr-euthxfak 2 tab PO DAILY PRN headache 11/08/22 01/03/23 50 mg-325 mg-40 mg tablet ferrous sulfate 325 mg (65 mg 1 tab PO DAILY 11/08/22 01/03/23 iron) tablet (FeroSul) sulfasalazine 500 mg tablet 1 tab PO BID 11/08/22 01/03/23 tiotropium bromide 2.5 2 puff inhalation DAILY 11/08/22 01/03/23 mcg/actuation mist for inhalation (Spiriva Respimat) tramadol 50 mg tablet 50 mg PO Q6H PRN pain 11/08/22 01/03/23 fluoxetine 20 mg capsule 2 cap PO DAILY 12/27/22 01/03/23 apixaban 5 mg tablet (Eliquis) 5 mg PO BID 01/03/23 01/03/23 fluticasone propionate 220 1 inh inhalation BID 01/03/23 01/03/23 mcg/actuation HFA aerosol inhaler (Flovent HFA) folic acid 1 mg tablet 1 mg PO DAILY 01/03/23 01/03/23 levothyroxine 175 mcg tablet 175 mcg PO DAILY 01/03/23 01/03/23 multivitamin (One Daily 1 tab PO DAILY 01/03/23 01/03/23 Multivitamin tablet) Previous Rx's Medication Instructions Recorded hydroxychloroquine 200 mg tablet 200 mg PO BID #60 tabs 05/16/21 nicotine 21 mg/24 hr daily 21 mg transdermal DAILY #28 ea 12/30/22 transdermal patch vancomycin 125 mg capsule 125 mg PO Q6H #90 caps 12/30/22 lorazepam 1 mg tablet 1 mg PO BID PRN anxiety #10 tabs 01/03/23 cephalexin 500 mg capsule 500 mg PO QID #28 caps 05/15/23 doxycycline hyclate 100 mg tablet 100 mg PO BID #14 tabs 05/15/23 Allergies Allergy/AdvReac Type Severity Reaction Status Date / Time clarithromycin Allergy Intermediate FACIAL Verified 05/26/23 00:28 [CLARITHROMYCIN] SWELLING/REDNESS, facial rash, facial rash, facial rash, facial rash Review of Systems Review of Systems: Pertinent positives and negatives as stated in [facility] Past Medical History Source: nursing notes reviewed Medical History C. difficile colitis Cellulitis Cellulitis Cellulitis of right leg Charcot's joint of foot COPD (chronic obstructive pulmonary disease) CVA (cerebral vascular accident) Falling Fibromyalgia Hypothyroid Immunosuppression due to chronic steroid use Lupus Mixed connective tissue disease PAD (peripheral artery disease) Pneumonia due to COVID-19 virus Proteinuria Redness and swelling of lower leg Respiratory failure with hypoxia Rheumatoid arthritis Rheumatoid arthritis Secondary bacterial pneumonia Varicose veins of right lower extremity with inflammation Surgical History History of breast lump/mass excision History of bunionectomy History of cholecystectomy History of excision of mass History of partial hysterectomy Family History Family History Father No problems noted. Mother Lung cancer Social History Social History Household Members: Family Household Members Other:: 3 Housing: Apartment Do you presently have visiting nurse or other home services: Yes ([employer]) Alcohol intake: never Patient Tobacco Use Status: Current everyday Tobacco user Tobacco use type: Cigarette Cigarette Packs Per Day: 1 Cigarettes Per Day: 20.0 Years Smoked: 30 Second Hand Smoke Exposure: No Substance Use Type: Marijuana Advance Directives: Yes Advance Directives on File: Yes Advance Directives Date on File: 11/26/21 service: No Current occupational status: unemployed and disabled Current occupation: right hand dominant Physical Exam Vital Signs: Vital Signs: Last Vital Signs Temp 98.7 F 05/26/23 00:24 Pulse 88 05/26/23 00:24 Resp 18 05/26/23 00:24 BP 128/76 05/26/23 00:24 Pulse Ox 95 05/26/23 00:24 O2 Del Method Room Air 05/26/23 00:24 BMI result Body Mass Index 24.2 VITAL SIGNS: Reviewed. GENERAL: Appears older than stated age, in no acute distress. HEAD: Normocephalic/atraumatic EYES: PERRLA, EOMI EARS: Ext canals without abnormality LUNGS: Normal breath sounds. No adventitious sounds or accessory muscle use. SpO2<95> CARDIOVASCULAR: Regular rate and rhythm without noted murmurs ABDOMEN: Soft, non-tender, non-distended with bowel sounds. MUSCULOSKELETAL: No tenderness, deformities, or effusions noted on gross inspection. EXTREMITIES: No cyanosis, clubbing or edema; RIGHT LOWER EXTREMITY: There is significant swelling, erythema, warmth to touch, palpable pulse. SKIN: Inspection of the skin reveals no rashes, ulcerations, jaundice, pallor, or petechiae. NEUROLOGIC: Alert and oriented x 4. Strength and sensation to light touch were grossly intact x 4. Medical Decision Making Medical Decision Making MDM Narrative: 47-year-old female with history and clinical presentation, DDX: Cellulitis, DVT. Patient has already been on a course of doxycycline and cephalexin since 05/15, she is also noted to be on anticoagulation (Eliquis). Will proceed with imaging studies of the ankle as well as repeat venous duplex. If both are negative patient will have a compression dressing in place and strongly encouraged to follow-up with her primary care provider for further evaluation. On review of all imaging studies there is no evidence of hardware issues, acute fracture, or dislocation. Ultrasound negative for evidence to suggest DVT, there is a complex Ram cyst that may be contributing to patient's symptoms. Compression dressing will be applied and she is otherwise discharged home in stable condition with instructions to follow-up with primary care provider. Differential Diagnosis Please see the discussion above Radiology Impression Radiologist Impression: No fracture, dislocation, DVT, my interpretation is in agreement with radiology's impression. Discharge Plan Discharge Clinical Impression: Ram cyst, Leg edema, right Patient Disposition: Home, Self-Care Instructions: Leg Edema (ED), Bakers Cyst (ED) Additional Instructions: 1. Resume all home medications as prescribed. 2. Follow-up with your primary care provider in the next 1-2 days. Return to the ER for any worsening symptoms. Prescriptions: No Action hydroxychloroquine 200 mg tablet 200 mg PO BID Qty: 60 3RF albuterol sulfate 2.5 mg /3 mL (0.083 %) solution for nebulization 2.5 mg inhalation Q6H PRN (Reason: Shortness Of Breath Or Wheezing) prednisone 5 mg tablet 5 mg PO DAILY bupropion HCl 100 mg tablet sustained-release 12 hr 100 mg PO BID albuterol sulfate 90 mcg/actuation HFA aerosol inhaler 2 puff inhalation Q4H PRN (Reason: Shortness Of Breath Or Wheezing) loratadine 10 mg Tablet 10 mg PO DAILY fluoxetine 20 mg capsule 2 cap PO DAILY nicotine 21 mg/24 hr Patch 24 Hour 21 mg transdermal DAILY Qty: 28 0RF vancomycin 125 mg Capsule 125 mg PO Q6H Qty: 90 0RF Rx Instructions: take po Vancomycin 4x per per day 5 days,than take 3x per day x one week,than twice daily one week,than once daily one week,than every other day one week than every , , Saturday two months, famotidine 20 mg tablet 1 tab PO DAILY gcsuseniqm-sbdhiqhacggxh-arek 50-325-40 mg tablet 2 tab PO DAILY PRN (Reason: headache) sulfasalazine 500 mg tablet 1 tab PO BID ferrous sulfate [FeroSul] 325 mg (65 mg iron) tablet 1 tab PO DAILY Spiriva Respimat 2.5 mcg/actuation mist 2 puff INHALATION DAILY tramadol 50 mg tablet 50 mg PO Q6H PRN (Reason: pain) multivitamin [One Daily Multivitamin] Tablet 1 tab PO DAILY levothyroxine 175 mcg tablet 175 mcg PO DAILY folic acid 1 mg tablet 1 mg PO DAILY Eliquis 5 mg tablet 5 mg PO BID fluticasone propionate [Flovent HFA] 220 mcg/actuation HFA aerosol inhaler 1 inh INHALATION BID lorazepam 1 mg tablet 1 mg PO BID PRN (Reason: anxiety) Qty: 10 0RF cephalexin 500 mg capsule 500 mg PO QID Qty: 28 0RF doxycycline hyclate 100 mg tablet 100 mg PO BID Qty: 14 0RF nortriptyline 75 mg capsule 75 mg PO BEDTIME lorazepam 1 mg tablet 1 mg PO BID PRN (Reason: Anxiety) pravastatin 40 mg tablet 40 mg PO BEDTIME (DME) nebulizer and compressor [Vios Aerosol Delivery System] Device See Rx Instructions .ROUTE DIRECTED Qty: 1 Rx Instructions: As directed
[2023-05-26 06:00] VITALS: BP 131/77; PULSE 81; RESP 17; TEMP 37.2; O2SAT 96
--- NOTE | 2023-05-26 06:20 | PC.NURSE ---
Discharge instructions given and explained to pt No apparent distress aox4 all of pt's questions answered Ambulates safely/independently
== END 2023-05-26 06:20 | disposition home or self-care (01) ==
PROVIDERS: Emergency Provider Student in an Organized Health Care Education/Training Program
DX: M71.21 Synovial cyst of popliteal space [Baker], right knee (principal); M25.571 Pain in right ankle and joints of right foot; R60.0 Localized edema; F17.210 Nicotine dependence, cigarettes, uncomplicated; Z71.6 Tobacco abuse counseling
CPT/HCPCS: 73610; 73620; 93971; 99283

== ENCOUNTER → 2023-06-25 16:30 | Outpatient (BNV) | payer MEDICARE, MEDICAID, SELFPAY | PROVIDERS: PCP Family Medicine; Visit Provider Radiology Diagnostic Radiology | DX: Z12.31 Encounter for screening mammogram for malignant neoplasm of breast (principal) | CPT/HCPCS: 77063; 77067 ==

== ENCOUNTER 2023-06-25 16:37 | Outpatient (REF) | payer MEDICARE, MEDICAID, SELFPAY ==
--- NOTE | ~2023-06-25 | MM_ITS ---
EXAMINATION: MM SCREENING DIGITAL BREAST TOMOSYNTHESIS, BILATERAL CLINICAL INFORMATION: Screening. Asymptomatic. The lifetime risk of breast cancer based on the Tyrer-Cuzick Model is 6.9%. COMPARISON: Mammography: 08/04/2019, 12/13/2015, 10/25/2014. TECHNIQUE: Digital breast tomosynthesis is performed in both the craniocaudal and mediolateral oblique views along with computer-aided detection (CAD). Synthesized 2D images are generated from the tomosynthesis. FINDINGS: There are scattered areas of fibroglandular density (ACR BI-RADS breast composition Category b). Study is somewhat limited from motion and as per technologist note, had difficulty positioning for optimal views, as patient is confined to a wheelchair, and only 1 technologist was able to perform the exam. Study will be considered limited due to motion. The previously seen large mass at the 12:00 location right breast is no longer seen and presumably has been removed. Mild postlumpectomy scarring is present in the upper right breast. There are no suspicious masses, suspicious grouped calcifications, or areas of architectural distortion. The parenchymal pattern is stable from prior exams. MM/MM tomosynthesis screening BI IMPRESSION: No mammographic evidence of malignancy. Stable benign findings. ASSESSMENT: BI-RADS BI-RADS 2 - Benign Findings RECOMMENDATION: Routine annual mammography screening. 1 year F/U This examination should not preclude the clinical evaluation of a suspicious palpable abnormality. This patient's information was entered into a reminder system with a target due date for their next mammogram.
== END 2023-06-25 16:38 | disposition home or self-care (01) ==
LOC: HO.MAMMO 16:37
PROVIDERS: PCP Family Medicine; Visit Provider Family Medicine
DX: Z12.31 Encounter for screening mammogram for malignant neoplasm of breast (principal)
CPT/HCPCS: 77063; 77067

== ENCOUNTER 2023-07-16 13:20 | Outpatient (AMB) | payer MEDICARE, MEDICAID, SELFPAY ==
[2023-07-16 13:21] VITALS: BP 126/74; PULSE 100; TEMP 36.3; O2SAT 92; BMI 25.1
--- NOTE | 2023-07-16 13:21 | A.OFFVIS_ITS ---
Intake Vital Signs 07/16/23 13:21 Height 5 ft 1 in Weight 132 lb 15.02 oz BMI 25.1 BP 126/74 Blood Pressure Location Rt brachial Position Sitting Pulse 100 Pulse Source Pulse Oximeter Temp 97.4 F Temp Source Skin Pulse Oximetry (%) 92 Intake Visit Reasons: sle Intake Note: New pt presents today for consult. States she has Lupus, RA, FM and OA. Most bothersome area is knee, but sometimes pain all over. Pain started approx 2 years ago. used to get celulitis a lot. 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: No Accompanied by: HEALTH CARE CONSULTANT Faizul Allergies clarithromycin [CLARITHROMYCIN] Allergy (Intermediate, Verified 07/16/23 13:24) FACIAL SWELLING/REDNESS, facial rash, facial rash, facial rash, facial rash Medication List - Last Reconciled 07/16/23 by Sylvia Mora MD albuterol sulfate 2.5 mg inhalation Q6H PRN albuterol sulfate 90 mcg/actuation 2 puffs inhalation Q4H PRN apixaban (Eliquis) 5 mg PO BID bupropion HCl 100 mg PO BID [id number]-iozmzydoqsolr-ikwq 50-325-40 mg 2 tabs PO DAILY PRN famotidine 1 tab PO DAILY ferrous sulfate (FeroSul) 1 tab PO DAILY fluoxetine 2 caps PO DAILY fluticasone propionate 220 mcg/actuation (Flovent HFA) 1 inh inhalation BID folic acid 1 mg PO DAILY hydroxychloroquine 200 mg PO BID levothyroxine 175 mcg PO DAILY loratadine 10 mg PO DAILY lorazepam 1 mg PO BID PRN lorazepam 1 mg PO BID PRN multivitamin (One Daily Multivitamin tablet) 1 tab PO DAILY nebulizer and compressor (Vios Aerosol Delivery System) As directed nicotine 21 mg transdermal DAILY nortriptyline 75 mg PO BEDTIME pravastatin 40 mg PO BEDTIME prednisone 5 mg PO DAILY sulfasalazine 1 tab PO BID tiotropium bromide 2.5 mcg/actuation (Spiriva Respimat) 2 puffs inhalation DAILY tramadol 50 mg PO Q6H PRN vancomycin 125 mg PO Q6H HPI HPI Comments History of Present Illness Details This is a 47-year-old female with a past medical history of SLE who presents as a new patient. 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 Patient had a still breath around 2000 around that time she had a stillbirth. She was diagnosed with immune complex mediated glomerular nephritis. This was initially attributed to thyroid disease. Over the next 2-3 years she was diagnosed with SLE. She also had multiple strokes around 1999 for which were treated with Coumadin. Patient is currently on Eliquis however. 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 Over the years patient has been on multiple medications including prednisone, hydroxychloroquine, methotrexate. She was on methotrexate for some time but she developed recurrent cellulitis and methotrexate was discontinued. She was started on sulfasalazine 1 tab twice daily by Dr. Flores over the last 2 years. Continues to take hydroxychloroquine Back in February of 2023 patient had surgery for right foot Charcot's. Postop she had pneumonia and was on antibiotics. This was the last time she had been on antibiotics per patient. Today patient's main complaint is right knee pain and swelling. She has an appointment with Orthopedics soon [facility] Medical History (Updated 07/16/23 @ 16:56 by Sylvia Mora MD) C. difficile colitis Cellulitis Cellulitis Cellulitis of right leg Charcot's joint of foot COPD (chronic obstructive pulmonary disease) CVA (cerebral vascular accident) Encounter for testing for latent tuberculosis infection Falling Fibromyalgia Hypothyroid Immunosuppression due to chronic steroid use Lupus Mixed connective tissue disease PAD (peripheral artery disease) Pneumonia due to COVID-19 virus Proteinuria Redness and swelling of lower leg Respiratory failure with hypoxia Rheumatoid arthritis Secondary bacterial pneumonia Varicose veins of right lower extremity with inflammation Surgical History History of breast lump/mass excision History of bunionectomy History of cholecystectomy History of excision of mass History of partial hysterectomy Family History Father No problems noted. Mother Lung cancer Rheumatoid arthritis Social History Household Members: Family Household Members Other:: 3 Housing: Apartment Do you presently have visiting nurse or other home services: Yes (HEALTH CARE CONSULTANT Services) Alcohol intake: never Patient Tobacco Use Status: Current everyday Tobacco user Tobacco use type: Cigarette Cigarette Packs Per Day: 1 Cigarettes Per Day: 20.0 Years Smoked: 30 Second Hand Smoke Exposure: No Substance Use Type: Marijuana Advance Directives Date on File: 11/26/21 service: No Current occupational status: unemployed and disabled Current occupation: right hand dominant Review of Systems Const Reports fatigue Musc Reports arthralgias, Reports joint swelling, Reports limited range of motion and Reports stiffness Endo Reports fatigue Physical Exam Vital Signs: Last Vital Signs Temp 97.4 F 07/16/23 13:21 Pulse 100 07/16/23 13:21 BP 126/74 07/16/23 13:21 Pulse Ox 92 07/16/23 13:21 BMI result Body Mass Index 25.1 Const General: cooperative, healthy appearing and comfortable Nutritional Appearance: malnourished Orientation/consciousness: patient oriented x3 HEENT Head: Yes normocephalic and Yes atraumatic Mouth: moist mucous membranes Resp Effort & Inspection: normal respiratory effort and able to speak in complete sentences Cardio Rate: regular rate Skin Other: Mild hypopigmentation around her nose and cheek area Neuro General: patient oriented x3 Extrem Other: Chronic deformities of both feet Right knee warmth, swelling and tenderness No active synovitis of both hands or wrists Results Reviewed Results Reviewed: labs 01/2021? DsDNA elevated? UpCr: 0.292 ESR 80 CRP 61.6 Labs 2014 Beta 2 glycoprotein IgM >159 (<20) Beta 2 glycoprotein IgA 37 (<20) Beta 2 glycoprotein IgG -ve Cardiolipin IgM 115 (<12) Cardiolipin IgG -ve pr3 3.3 (<1.0) Assessment & Plan Assessment & Plan (1) Lupus: Comment: dx around 2003 (immune complex mediated Humira nephritis, membranous glomerular nephritis, inflammatory arthritis, +APLA syndrome, ++DSdna, low C3, low C4, +++ ACL IgM, +++ B2GP IgM) HCQ + prednisone throughout MTX DC due to recurrent cellulitis Sulfasalazine started around 2021 Code(s): M32.9 - Systemic lupus erythematosus, unspecified Plan: This is a 47-year-old female with SLE who presents as a new patient. Patient has long history of SLE manifested by inflammatory arthritis, positive dsDNA, antiphospholipid antibody syndrome, immune complex mediated glomerulonephritis, membranous glomerulonephritis) Check labs to evaluate disease activity. Continue with hydroxychloroquine and prednisone Follow-up in 6 weeks. 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 Panel Today M32.9 - Systemic lupus erythematosus, unspecified C Reactive Protein Today M32.9 - Systemic lupus erythematosus, unspecified Uric Acid Today M10.9 - Gout, unspecified Protein Creatinine Ratio, Ur Today M32.9 - Systemic lupus erythematosus, unspecified Complete Blood Count Auto Diff Today M32.9 - Systemic lupus erythematosus, unspecified Erythrocyte Sedimentation Rate Today M32.9 - Systemic lupus erythematosus, unspecified ANCA Vasculitides Today M32.9 - Systemic lupus erythematosus, unspecified Complement C3 Today M32.9 - Systemic lupus erythematosus, unspecified Complement C4 Today M32.9 - Systemic lupus erythematosus, unspecified Anti DNA DS Antibody Today M32.9 - Systemic lupus erythematosus, unspecified Anti Extractable Nuclear Ag Today M32.9 - Systemic lupus erythematosus, unspecified Immunofixation Pnl, Serum Today M32.9 - Systemic lupus erythematosus, unspecified Protein Electrophoresis, Serum Today M32.9 - Systemic lupus erythematosus, unspecified Sjogren's Antibodies Today M32.9 - Systemic lupus erythematosus, unspecified Hepatitis A,B,C Profile Today Z11.59 - Encounter for screening for other viral diseases T Spot TB Today Z11.7 - Encounter for testing for latent tuberculosis infection UA w Microscopic Today M32.9 - Systemic lupus erythematosus, unspecified Cyclic Citrullinated Peptide Today M06.9 - Rheumatoid arthritis, unspecified Rheumatoid Factor Today M06.9 - Rheumatoid arthritis, unspecified XR DEXA axial skeleton Today Z79.52 - snf (current) use of systemic steroids Coding Level of Care Code New Pt Level 5 (61082) Diagnoses Lupus M32.9 snf systemic steroid user Z79.52
== END 2023-07-16 13:56 | disposition home or self-care (01) ==
PROVIDERS: PCP Family Medicine; Visit Provider Student in an Organized Health Care Education/Training Program
DX: M32.9 Systemic lupus erythematosus, unspecified (principal); Z79.52 Long term (current) use of systemic steroids
CPT/HCPCS: 99205

== ENCOUNTER 2023-07-16 14:07 | Outpatient (REF) | payer MEDICARE, MEDICAID, SELFPAY ==
--- NOTE | ~2023-07-16 | US_ITS ---
EXAMINATION: Noninvasive assessment of the bilateral lower extremities with ARTERIAL DUPLEX and ANKLE BRACHIAL INDICES (ABIs). CLINICAL INFORMATION: Peripheral vascular disease TECHNIQUE: Duplex Doppler techniques with waveform analysis and measurement of velocities in the bilateral common femoral, profunda femoris, superficial femoral, popliteal and tibial arteries were performed. Additionally, ankle pulse volume recordings, ankle pressure measurements and ankle brachial indices were obtained of the lower extremity arterial system bilaterally. The study was performed only at rest. COMPARISON: 03/22/2021 FINDINGS: DIRECT DUPLEX DOPPLER FINDINGS: RIGHT LEG: Common femoral artery: 147 cm/s, phasicity: Triphasic Profunda femoris artery: 86.9 cm/s, phasicity: Biphasic Superficial femoral artery (proximal): 143 cm/s, phasicity: Triphasic Superficial femoral artery (mid): 111 cm/s, phasicity: Triphasic Superficial femoral artery (distal): 129 cm/s, phasicity: Triphasic Popliteal artery: 96.3 cm/s, phasicity: Triphasic Posterior tibial artery: 72.4 cm/s, phasicity: Triphasic Peroneal artery: 53.3 cm/s, phasicity: Triphasic Anterior tibial artery: 70.7 cm/s, phasicity: Triphasic Dorsalis pedis artery: 78.1 cm/s, phasicity:Triphasic LEFT LEG: Common femoral artery: 91.9 cm/s, phasicity: Triphasic Profunda femoris artery: 101 cm/s, phasicity: Triphasic Superficial femoral artery (proximal): 113 cm/s, phasicity: Triphasic Superficial femoral artery (mid): 151 cm/s, phasicity: Triphasic Superficial femoral artery (distal): 122 cm/s, phasicity: Triphasic Popliteal artery: 98.2 cm/s, phasicity: Triphasic Posterior tibial artery: 82.9 cm/s, phasicity: Triphasic Peroneal artery: 76.4 cm/s, phasicity: Triphasic Anterior tibial artery: 79.6 cm/s, phasicity: Triphasic Dorsalis pedis artery: 72.9 cm/s, phasicity: Triphasic ANKLE-BRACHIAL INDEX: Right: 1.23? Left: 1.13 ANKLE PRESSURES: Right: PT 161, DP 125 Left: PT?148, DP?147 ANKLE PVR WAVEFORMS: Right: Normal Left: Normal US/US arterial duplex LE BI IMPRESSION: Right leg: Normal ankle brachial index and arterial duplex ultrasound evaluation Left leg: Normal ankle brachial index and arterial duplex ultrasound evaluation NEGIN Reference: - >1.4 = calcified vessels - 0.9 - 1.4 = normal - no significant arterial disease - 0.7 - 0.89 = mild peripheral arterial disease - 0.51 - 0.69 = moderate peripheral arterial disease - ? 0.50 = severe peripheral arterial disease - < .30 = critical arterial disease
[2023-07-16 14:45] LABS: MANUAL DIFF FLAG NO
[2023-07-16 15:40] LABS: Basophils Absolute Auto 0.1 X10*3/uL (0.0-0.2); Basophils Percent Auto 0.4 % (0-2); Eosinophils Absolute Auto 0.4 X10*3/uL (0.0-0.4); Eosinophils Percent Auto 2.3 % (0-4); Hematocrit 37.4 % (37.0-47.0); Imm Gran Abs Auto 0.21 X10*3/uL (0.00-0.03); Imm Gran Pct Auto 1.2 % (0.0-0.4); Lymphocytes Absolute Auto 1.4 X10*3/uL (1.2-4.9); Lymphocytes Percent Auto 8.3 % (20-40); Mean Corpuscular HGB Conc 32.1 g/dl (31.0-35.0); Mean Corpuscular Hemoglobin 25.8 pg (27.0-33.0); Mean Corpuscular Volume 80.4 fL (80.0-98.0); Mean Platelet Volume 9.3 fL (9.4-12.3); Monocytes Absolute Auto 1.1 X10*3/uL (0.1-1.2); Monocytes Percent Auto 6.5 % (2-11); Neutrophils Absolute Auto 13.9 x10*3/uL (2.0-8.3); Neutrophils Percent Auto 81.3 % (45-73); Platelet Count 243 X10*3/uL (160-400); Red Blood Count 4.65 X10*6/uL (4.20-5.50); Red Cell Distribution Width 12.9 % (11.0-16.0); White Blood Count 17.2 X10*3/uL (4.8-10.8)
[2023-07-16 16:23] LABS: Alanine Aminotransferase 17 U/L (0-31); Albumin Level 2.7 g/dL (3.5-5.0); Alkaline Phosphatase 200 U/L (39-117); Anion Gap 11 (12-20); Aspartate Amino Transferase 18 U/L (5-31); Bilirubin Total 0.2 mg/dL (0.0-1.0); Blood Urea Nitrogen 7 mg/dL (9-16); C Reactive Protein 14.51 mg/dL (< or = 0.50); Calcium 8.9 mg/dL (8.4-10.2); Carbon Dioxide 28 mmol/L (22-29); Chloride 103 mmol/L (96-108); Estimated Glomerular Filt Rate > 60; Glucose Random 120 mg/dL (60-115); Potassium 3.4 mmol/L (3.3-5.1); Sodium 139 mmol/L (135-145); Total Protein 5.2 g/dL (6.5-8.0); Uric Acid 7.5 mg/dL (2.4-5.7)
[2023-07-16 16:35] LABS: Rheumatoid Factor < 13.0 IU/mL (<15.0)
[2023-07-16 16:58] LABS: Appearance Urine Clear; Color Urine Yellow; Glucose Urine UA Negative (Negative); Leukocyte Esterase Urine Small (1+) (Negative); Nitrite Urine Negative (Negative); UMIC TRIGGER UA YES; Urine Blood Negative (Negative); Urine Ketones Negative (Negative); Urine Protein Negative (Neg-Trace)
[2023-07-16 17:04] LABS: Bacteria Urine 1+ (None Seen); Hyaline Casts Urine 0-2 /LPF (0-2); RBC Urine 0-2 /HPF (0-2)
[2023-07-16 17:30] LABS: Creatinine Urine 42.83 mg/dL; Protein/Creatinine Ratio, Ur 0.28 (<0.2); Total Protein Urine Random 12 mg/dL (<12)
[2023-07-16 17:40] LABS: Erythrocyte Sedimentation Rate 23 MM/HR (0-20)
[2023-07-17 08:18] LABS: HBS Num1 0.38 mIU/mL (0-7.99); HBc Num1 0.08 S/CO (0.00-0.79); HBsAGNum1 0.33 S/CO (0.00-0.99); Hepatitis A Antibody IgM 0.18 Index (0-0.79); Hepatitis B Core Antibody Nonreactive (Nonreactive); Hepatitis B Surface Antigen Negative (Negative); ~Hepatitis A Antibody IgM Nonreactive (Nonreactive); ~Hepatitis B Surface Antibody NONREACTIVE (Nonreactive); ~Hepatitis C Antibody Nonreactive (Nonreactive)
[2023-07-17 14:48] LABS: Complement C3 105 mg/dL (83-193)
[2023-07-18 12:48] LABS: Prot Elec - Albumin 2.4 g/dL (3.8-4.8); Prot Elec - Alpha1 0.6 g/dL (0.2-0.3); Prot Elec - Alpha2 0.9 g/dL (0.5-0.9); Prot Elec - Beta 1 0.3 g/dL (0.4-0.6); Prot Elec - Beta 2 0.3 g/dL (0.2-0.5); Prot Elec - Gamma 0.6 g/dL (0.8-1.7)
[2023-07-18 13:33] LABS: Anti DNA DS Antibody 34 IU/mL; Antibody to SS-A Antigen <1.0 NEG AI (<1.0 NEG); Antibody to SS-B Antigen <1.0 NEG AI (<1.0 NEG); Myeloperoxidase Antibody <1.0 AI; Proteinase 3 PR3 Antibodies 1.1 AI; SM/Ribonucleoprotein Ab <1.0 NEG AI (<1.0 NEG); Smith Protein <1.0 NEG AI (<1.0 NEG)
[2023-07-18 20:38] LABS: TS Negative Control Passed; TS Panel A 0; TS Panel B 0; TS Positive Control Passed; TSpotTB Negative (Negative)
[2023-07-19 11:37] LABS: Cyclic Citrullinated Peptide <16 UNITS
[2023-07-23 10:23] LABS: IgA 101 mg/dL (47-310); IgG 678 mg/dL (600-1640); IgM 189 mg/dL (50-300)
== END 2023-07-16 14:08 | disposition home or self-care (01) ==
LOC: HO.US 14:07
PROVIDERS: Absent Provider Student in an Organized Health Care Education/Training Program; PCP Family Medicine; Visit Provider Surgery Vascular Surgery
DX: Z11.7 Encounter for testing for latent tuberculosis infection (principal); Z11.59 Encounter for screening for other viral diseases; M32.9 Systemic lupus erythematosus, unspecified; M10.9 Gout, unspecified; M06.9 Rheumatoid arthritis, unspecified; I70.213 Atherosclerosis of native arteries of extremities with intermittent claudication, bilateral legs; Z72.89 Other problems related to lifestyle; Z79.52 Long term (current) use of systemic steroids
CPT/HCPCS: 36415; 80053; 81001; 82784; 84156; 84165; 84550; 85025; 85652; 86021; 86140; 86160; 86200; 86225; 86235; 86334; 86431; 86481; 86704; 86706; 86709; 86803; 87340; 93923; 93925; 99202

== ENCOUNTER 2023-07-31 23:24 | Inpatient (IN) | payer MEDICARE, MEDICAID, SELFPAY ==
--- NOTE | ~2023-07-31 | XR_ITS ---
EXAMINATION: XR CHEST CLINICAL INFORMATION: Productive cough with sputum. COMPARISON: 11/08/2022 TECHNIQUE: PA and lateral views of the chest were obtained. FINDINGS: Lungs are hyperexpanded. No pneumothorax or pleural effusion. Chronic patchy foci of interstitial and airspace opacities in both lungs appear slightly more pronounced as compared to the prior study, particularly in the right upper lobe and left midlung. Cardiac and mediastinal contours are normal. No acute osseous findings. Cholecystectomy clips are present in the right upper quadrant. XR/XR chest 2V IMPRESSION: Chronic changes of post Covid scarring/fibrosis. Of note, the airspace opacities in both lungs appear slightly more pronounced as compared to the prior study, particularly in the right upper lobe and left midlung, potentially corresponding to new superimposed airspace disease
[2023-07-31 23:30] VITALS: BP 123/74; PULSE 96; RESP 18; TEMP 36.8; O2SAT 95; BMI 24.6
[2023-07-31 23:53] LABS: Basophils Absolute Auto 0.1 X10*3/uL (0.0-0.2); Basophils Percent Auto 0.5 % (0-2); Eosinophils Absolute Auto 0.4 X10*3/uL (0.0-0.4); Eosinophils Percent Auto 1.6 % (0-4); Hematocrit 40.8 % (37.0-47.0); Hemoglobin 12.8 g/dl (12.0-16.0); Imm Gran Abs Auto 0.54 X10*3/uL (0.00-0.03); Imm Gran Pct Auto 2.1 % (0.0-0.4); Lymphocytes Absolute Auto 3.1 X10*3/uL (1.2-4.9); Lymphocytes Percent Auto 11.9 % (20-40); MANUAL DIFF FLAG SCAN; Mean Corpuscular HGB Conc 31.4 g/dl (31.0-35.0); Mean Corpuscular Volume 79.8 fL (80.0-98.0); Mean Platelet Volume 8.1 fL (9.4-12.3); Monocytes Absolute Auto 1.9 X10*3/uL (0.1-1.2); Monocytes Percent Auto 7.1 % (2-11); Neutrophils Percent Auto 76.8 % (45-73); Platelet Count 362 X10*3/uL (160-400); Red Blood Count 5.11 X10*6/uL (4.20-5.50); Red Cell Distribution Width 13.2 % (11.0-16.0); SCAN SMEAR FLAG 1
[2023-07-31 23:55] VITALS: BP 131/69; PULSE 94; RESP 19; TEMP 37.3; O2SAT 94
[2023-08-01] VITALS (7 sets, daily range): BP systolic 97–134; BP diastolic 54–71; PULSE 83–96; RESP 13–20; TEMP 36–36.9; O2SAT 90–96; BMI 25.4
[2023-08-01 00:07] LABS: Alanine Aminotransferase 12 U/L (0-31); Alkaline Phosphatase 155 U/L (39-117); Anion Gap 9 (12-20); Aspartate Amino Transferase 22 U/L (5-31); Bilirubin Total 0.2 mg/dL (0.0-1.0); Blood Urea Nitrogen 12 mg/dL (9-16); Calcium 8.2 mg/dL (8.4-10.2); Carbon Dioxide 33 mmol/L (22-29); Chloride 100 mmol/L (96-108); Creatinine Clr Calc Pharmacy 77.3; Estimated Glomerular Filt Rate > 60; Glucose Random 91 mg/dL (60-115); Potassium 3.1 mmol/L (3.3-5.1); Sodium 139 mmol/L (135-145); Total Protein 4.4 g/dL (6.5-8.0)
[2023-08-01 00:12] LABS: SLIDE REVIEW VERIFIED
--- NOTE | 2023-08-01 00:12 | MHC.EDTECH ---
This Tech assumed care of this Pt upon arrival. PT changed into hospital gown red fall risk wristband and red socks put on PT. commode placed at bedside
[2023-08-01] MEDS: Albuterol/Iprat 2.5/0.5MG 3 ML AMPUL.NEB INHALE (00:53)
--- NOTE | 2023-08-01 01:14 | ED.GENADULT ---
HPI - General Adult General Chief complaint: General Medical Stated complaint: possible flu, stomach pain Time Seen by Provider: 08/01/23 00:47 Source: patient Mode of arrival: ambulatory Limitations: no limitations History of Present Illness HPI narrative: 48 yo female with PMH of lupus on plaquenil and chronic prednisone, COVID a year ago intubated with ARDS, c diff colitis in the past, COPD/asthma not on home O2 but previous intubations in the past who notes for the past few days she has had chills, nausea, weakness, cough, wheezing, sputum and overall not feeling well. She feels like she has the flu or pneumonia. She thinks one of her sons may have gotten her sick. She denies travel. She is taking her medications and INH. She is still smoking. MD complaint: cough, chills, flu like illness Onset (ago): day(s) (3) Location: chest Radiation: non-radiation Severity: moderate Quality: constant Relieving factors: rest Exacerbating factors: movement Associated symptoms: cough, fever/chills, headaches, loss of appetite, malaise, nausea/vomiting and shortness of breath Treatments prior to arrival: none Related Data Home Medications Medication Instructions Recorded Confirmed lorazepam 1 mg tablet 1 mg PO BID PRN Anxiety 08/15/20 07/16/23 pravastatin 40 mg tablet 40 mg PO BEDTIME 08/15/20 07/16/23 albuterol sulfate 2.5 mg/3 mL 2.5 mg inhalation Q6H PRN 08/31/20 07/16/23 (0.083 %) solution for nebulization Shortness Of Breath Or Wheezing albuterol sulfate 90 mcg/actuation 2 puff inhalation Q4H PRN 08/31/20 07/16/23 aerosol inhaler Shortness Of Breath Or Wheezing bupropion HCl 100 mg tablet,12 hr 100 mg PO BID 08/31/20 07/16/23 sustained-release prednisone 5 mg tablet 5 mg PO DAILY 08/31/20 07/16/23 nortriptyline 75 mg capsule 75 mg PO BEDTIME 04/18/21 07/16/23 loratadine 10 mg tablet 10 mg PO DAILY 10/21/21 07/16/23 nebulizer and compressor (Vios #1 ea 02/15/22 07/16/23 Aerosol Delivery System) famotidine 20 mg tablet 1 tab PO DAILY 05/24/22 07/16/23 ossqsnnplg-catjbbbsuvevb-mvgclaln 2 tab PO DAILY PRN headache 11/08/22 07/16/23 50 mg-325 mg-40 mg tablet ferrous sulfate 325 mg (65 mg 1 tab PO DAILY 11/08/22 07/16/23 iron) tablet (FeroSul) tiotropium bromide 2.5 2 puff inhalation DAILY 11/08/22 07/16/23 mcg/actuation mist for inhalation (Spiriva Respimat) tramadol 50 mg tablet 50 mg PO Q6H PRN pain 11/08/22 07/16/23 fluoxetine 20 mg capsule 2 cap PO DAILY 12/27/22 07/16/23 apixaban 5 mg tablet (Eliquis) 5 mg PO BID 01/03/23 07/16/23 fluticasone propionate 220 1 inh inhalation BID 01/03/23 07/16/23 mcg/actuation HFA aerosol inhaler (Flovent HFA) folic acid 1 mg tablet 1 mg PO DAILY 01/03/23 07/16/23 levothyroxine 175 mcg tablet 175 mcg PO DAILY 01/03/23 07/16/23 multivitamin (One Daily 1 tab PO DAILY 01/03/23 07/16/23 Multivitamin tablet) Previous Rx's Medication Instructions Recorded nicotine 21 mg/24 hr daily 21 mg transdermal DAILY #28 ea 12/30/22 transdermal patch vancomycin 125 mg capsule 125 mg PO Q6H #90 caps 12/30/22 lorazepam 1 mg tablet 1 mg PO BID PRN anxiety #10 tabs 01/03/23 sulfasalazine 500 mg tablet 500 mg PO BID #60 tabs 07/24/23 hydroxychloroquine 200 mg tablet 300 mg (1.5 x 200 mg) PO BID #45 07/30/23 tabs Allergies Allergy/AdvReac Type Severity Reaction Status Date / Time clarithromycin Allergy Intermediate FACIAL Verified 07/16/23 13:24 [CLARITHROMYCIN] SWELLING/REDNESS, facial rash, facial rash, facial rash, facial rash Review of Systems Review of Systems: Constitutional : No Fever, pos Chills ENT/Mouth : No Hoarseness, No sore throat, No Rhinorrhea Eyes: No Redness, No Discharge, No Vision Changes Cardiovascular : No Chest Pain, positive SOB, positive Dyspnea on Exertion, No Edema Respiratory : positive Cough, pos Sputum, positive Wheezing, Gastrointestinal : pos Nausea, No Vomiting, No Diarrhea, No abdominal Pain Genitourinary : No Dysuria, No Hematuria Musculoskeletal : No joint pain, No Myalgias Skin : No rash Neuro : pos Weakness, No Numbness, No Headache Psych : No anxiety, depression Heme/Lymph: No Bruising, No Bleeding Endocrine : No Polyuria, No Polydipsia All other systems reviewed and are negative [facility] Past Medical History Attestation statement: The following information was validated with the patient. Source: old records reviewed Medical History Encounter for testing for latent tuberculosis infection Falling Charcot's joint of foot Cellulitis Redness and swelling of lower leg COPD (chronic obstructive pulmonary disease) Respiratory failure with hypoxia Pneumonia due to COVID-19 virus C. difficile colitis Secondary bacterial pneumonia Immunosuppression due to chronic steroid use Mixed connective tissue disease Cellulitis of right leg PAD (peripheral artery disease) Varicose veins of right lower extremity with inflammation Rheumatoid arthritis Cellulitis CVA (cerebral vascular accident) Proteinuria Fibromyalgia Hypothyroid Lupus Surgical History History of breast lump/mass excision History of excision of mass History of partial hysterectomy History of cholecystectomy History of bunionectomy Family History Family History Father No problems noted. Mother Lung cancer Rheumatoid arthritis Social History Social History Household Members: Family Household Members Other:: 3 Housing: Apartment Do you presently have visiting nurse or other home services: Yes ([employer] Services) Alcohol intake: never Patient Tobacco Use Status: Current everyday Tobacco user Tobacco use type: Cigarette Cigarette Packs Per Day: 1 Cigarettes Per Day: 20.0 Years Smoked: 30 Second Hand Smoke Exposure: No Substance Use Type: Marijuana Advance Directives: Yes Advance Directives on File: Yes Advance Directives Date on File: 11/26/21 service: No Current occupational status: unemployed and disabled Current occupation: right hand dominant Physical Exam ED Vital Signs: Vital Signs - 24 hr 07/31/23 23:30 07/31/23 23:55 Temperature 98.3 F 99.1 F Pulse Rate 96 94 Respiratory Rate 18 19 Blood Pressure 123/74 131/69 Pulse Oximetry 95 94 Oxygen Delivery Method Room Air Room Air BMI result Body Mass Index 24.6 Appearance: Alert. Oriented X3. No acute distress. older than stated age Eyes: Pupils equal, round and reactive to light. ENT: Pharynx normal. Neck: Normal inspection. Neck supple. CVS: Normal heart rate and rhythm. Pulses normal. Respiratory: No respiratory distress. Breath sounds very coarse and has diffuse exp wheezes Abdomen: Soft and nontender. in groin has red beefy rash but no signs of cellulitis or abscess Skin: Skin warm and dry. Normal skin color. Normal skin turgor. Extremities: No lower extremity edema. No calf ttp Neuro: Oriented X 3. No motor deficit. No sensory deficit. Course Course Course Narrative: 0128 infection suspected Medications Administered Discontinued Medications Generic Name Dose Route Start Last Admin Trade Name Freq PRN Reason Stop Dose Admin Albuterol/Ipratropium 3 ml 08/01/23 00:53 08/01/23 00:53 Albuterol/Iprat 2.5/0.5mg 3 Ml Ampul.Neb INHALE 08/01/23 00:54 3 ml ONCE ONE Administration Sodium Chloride 1,000 mls @ 999 mls/hr 08/01/23 01:00 08/01/23 01:47 Ns IV 08/01/23 02:00 999 mls/hr .Q1H1M [place] Administration Ceftriaxone Sodium 1 gm/ 50 mls @ 100 mls/hr 08/01/23 00:53 08/01/23 01:28 Sodium Chloride IV 08/01/23 01:22 100 mls/hr ONCE ONE Administration Doxycycline Hyclate 100 mg/ 250 mls @ 166.67 mls/hr 08/01/23 00:55 08/01/23 02:28 Sodium Chloride IV 08/01/23 02:24 166.67 mls/hr ONCE ONE Administration Methylprednisolone Sodium Succinate 60 mg 08/01/23 00:53 08/01/23 01:30 Methylprednisolone Sod Succ 125 Mg/2 Ml Vial IVPUSH 08/01/23 00:54 60 mg ONCE ONE Administration Nystatin 1 appl 08/01/23 01:29 08/01/23 02:29 Nystatin Powder 15 Gm Bottle TOPICAL 08/01/23 01:30 Not Given ONCE ONE Protocol Potassium Chloride 40 meq 08/01/23 00:57 08/01/23 01:29 Potassium Chloride Packet 20 Meq Packet PO 08/01/23 00:58 40 meq ONCE ONE Administration Medical Decision Making Medical Decision Making [facility] Narrative: 48 yo female with PMH of lupus on plaquenil and chronic prednisone, COVID a year ago intubated with ARDS, c diff colitis in the past, COPD/asthma not on home O2 but previous intubations in the past, DOAC use here with c/o not feeling well, chills, cough with sputum production, thinks she has the flu at this time viral panel, CXR, labs, cultures and IV steroids, neb ordered and empiric CAP coverage. Possible admit given appearance and elevated WBC count higher from her baseline Differential Diagnosis Differential Diagnoses: The differential diagnosis associated with the presentation includes viral syndrome, COPD, pneumonia Admission/Observation Consideration of admission/observation: Escalation of care including admission/observation considered given WBC count, immunosuppression and CXR will admit for further management Consult Healthcare Provider Management of the patient was discussed with: Hospitalist (agrees to admit) Lab Data [facility] Lab Attestation statement: I reviewed the patient's lab results. 07/31/23 23:46 07/31/23 23:46 Labs: Lab Results 07/31/23 08/01/23 Range/Units 23:46 01:14 WBC 26.0 H (4.8-10.8) X10*3/uL RBC 5.11 (4.20-5.50) X10*6/uL Hgb 12.8 (12.0-16.0) g/dl Hct 40.8 (37.0-47.0) % MCV 79.8 L (80.0-98.0) fL MCH 25.0 L (27.0-33.0) pg MCHC 31.4 (31.0-35.0) g/dl RDW 13.2 (11.0-16.0) % Plt Count 362 D (160-400) X10*3/uL MPV 8.1 L (9.4-12.3) fL Immature Gran % (Auto) 2.1 H (0.0-0.4) % Neut % (Auto) 76.8 H (45-73) % Lymph % (Auto) 11.9 L (20-40) % [place] % (Auto) 7.1 (2-11) % Eos % (Auto) 1.6 (0-4) % Baso % (Auto) 0.5 (0-2) % Lymph # (Auto) 3.1 (1.2-4.9) X10*3/uL [place] # (Auto) 1.9 H (0.1-1.2) X10*3/uL Eos # (Auto) 0.4 (0.0-0.4) X10*3/uL Baso # (Auto) 0.1 (0.0-0.2) X10*3/uL Abs Immat Gran (auto) 0.54 H (0.00-0.03) X10*3/uL Absolute Neuts (auto) 20.0 H (2.0-8.3) x10*3/uL Absolute Nucleated RBC 0.000 (0.0-0.012) X10*3/uL Nucleated RBC % (auto) 0.0 (0.0-0.2) /100WBC Smear Tech's Comments VERIFIED Sodium 139 (135-145) mmol/L Potassium 3.1 L (3.3-5.1) mmol/L Chloride 100 (96-108) mmol/L Carbon Dioxide 33 H (22-29) mmol/L Anion Gap 9 L (12-20) BUN 12 (9-16) mg/dL Creatinine 0.75 (0.5-1.4) mg/dL Estim Creat Clear Calc 77.3 Estimated GFR > 60 Random Glucose 91 (60-115) mg/dL Lactic Acid 0.9 (0.5-2.0) mmol/L Calcium 8.2 L D (8.4-10.2) mg/dL Total Bilirubin 0.2 (0.0-1.0) mg/dL AST 22 (5-31) U/L ALT 12 (0-31) U/L Alkaline Phosphatase 155 H (39-117) U/L Total Protein 4.4 L (6.5-8.0) g/dL Albumin 2.0 L (3.5-5.0) g/dL Procalcitonin 0.07 ng/mL Independent Interpretation I performed an independent interpretation of an: Plain X-Ray (bilateral pneumonia) Radiology Impression Discussion of test interpretation with radiology: I have reviewed the radiologist's reading. External Record Review External record reviewed: Inpatient record Discharge Plan Discharge Clinical Impression: Acute hypokalemia Bilateral pneumonia Qualifiers: Pneumonia type: due to unspecified organism Lung location: unspecified part of lung Qualified Code(s): J18.9 - Pneumonia, unspecified organism Elevated WBC count Qualifiers: Leukocytosis type: unspecified Qualified Code(s): D72.829 - Elevated white blood cell count, unspecified Patient Disposition: Admitted As Inpatient
[2023-08-01] MEDS: cefTRIAXone sodium 1 GM in 0.9 % Sodium Chloride 50 ML IV ×2 (01:28→22:57)
[2023-08-01] MEDS: Potassium Chloride Packet 20 MEQ PACKET 40 MEQ PO (01:29)
[2023-08-01] MEDS: methylPREDNISolone Sod Succ 125 MG/2 ML VIAL 60 MG IVPUSH (01:30)
[2023-08-01 01:33] LABS: Procalcitonin 0.07 ng/mL
[2023-08-01 01:35] LABS: Lactic Acid 0.9 mmol/L (0.5-2.0)
[2023-08-01] MEDS: 0.9 % Sodium Chloride 1,000 ML 999 ML IV (01:47)
[2023-08-01] MEDS: Doxycycline Hyclate 100 MG in 0.9 % Sodium Chloride 250 ML 166.67 MG IV ×2 (02:28→14:58)
--- NOTE | 2023-08-01 02:47 | P.HPHOSP_ITS ---
History of Present Illness Date of Service: 08/01/23 Chief Complaint: Dyspnea and cough This is a 48-year-old female with pertinent history of COPD not on home oxygen but on long-stem steroids, mood disorder, SLE, rheumatoid arthritis, history of CVA, connective tissue disease, PAD on Eliquis, mood disorder who presents to the emergency department for evaluation of dyspnea and cough. Patient states symptoms started 1 week prior to presentation. It has been progressive over the last 3-4 days. Patient has been having constant cough with yellowish sputum production. Also complains of fever, documented temperature 100.4 degrees at home. Is having body aches and chills. Has been using home steroids and denies wheezing. No chest discomfort, palpitations, abdominal pain, changes in urinary or bowel habits. Does endorse dyspnea worse with exertion. No orthopnea or PND. In the emergency department, imaging concerning for pneumonia and patient was found to be septic PMFSH Medical History Encounter for testing for latent tuberculosis infection Falling Charcot's joint of foot Cellulitis Redness and swelling of lower leg COPD (chronic obstructive pulmonary disease) Respiratory failure with hypoxia Pneumonia due to COVID-19 virus C. difficile colitis Secondary bacterial pneumonia Immunosuppression due to chronic steroid use Mixed connective tissue disease Cellulitis of right leg PAD (peripheral artery disease) Varicose veins of right lower extremity with inflammation Rheumatoid arthritis Cellulitis CVA (cerebral vascular accident) Proteinuria Fibromyalgia Hypothyroid Lupus Family History Father No problems noted. Mother Lung cancer Rheumatoid arthritis Surgical History History of breast lump/mass excision History of excision of mass History of partial hysterectomy History of cholecystectomy History of bunionectomy Social History Household Members: Family Household Members Other:: 3 Housing: Apartment Do you presently have visiting nurse or other home services: Yes ([employer] Services) Alcohol intake: current Alcohol intake frequency: holidays/special occasions only Patient Tobacco Use Status: Never used Tobacco Tobacco use type: Cigarette Cigarette Packs Per Day: 1 Cigarettes Per Day: 20.0 Years Smoked: 30 Smoked in Last 30 Days: Yes Second Hand Smoke Exposure: No Use of substances other than those prescribed or required for medical reasons: No Substance Use Type: Marijuana Advance Directives: Yes Advance Directives on File: Yes Advance Directives Date on File: 11/26/21 Nutrition Risks: No Nutritional Risk Patient : No service: No Current occupational status: unemployed and disabled Current occupation: right hand dominant Meds Allergies Allergy/AdvReac Type Severity Reaction Status Date / Time clarithromycin Allergy Intermediate FACIAL Verified 07/16/23 13:24 [CLARITHROMYCIN] SWELLING/REDNESS, facial rash, facial rash, facial rash, facial rash Home Medications Medication Instructions Recorded Confirmed Last Taken Type lorazepam 1 mg tablet 1 mg PO BID PRN Anxiety 08/15/20 07/16/23 08/30/20 History pravastatin 40 mg tablet 40 mg PO BEDTIME 08/15/20 07/16/23 12/26/22 History albuterol sulfate 2.5 mg/3 mL 2.5 mg inhalation Q6H PRN 08/31/20 07/16/23 08/30/20 History (0.083 %) solution for nebulization Shortness Of Breath Or Wheezing albuterol sulfate 90 mcg/actuation 2 puff inhalation Q4H PRN 08/31/20 07/16/23 08/30/20 History aerosol inhaler Shortness Of Breath Or Wheezing bupropion HCl 100 mg tablet,12 hr 100 mg PO BID 08/31/20 07/16/23 12/26/22 History sustained-release prednisone 5 mg tablet 5 mg PO DAILY 08/31/20 07/16/23 12/26/22 History nortriptyline 75 mg capsule 75 mg PO BEDTIME 04/18/21 07/16/23 12/26/22 History loratadine 10 mg tablet 10 mg PO DAILY 10/21/21 07/16/23 12/26/22 History nebulizer and compressor (Vios #1 ea 02/15/22 07/16/23 Unknown History Aerosol Delivery System) famotidine 20 mg tablet 1 tab PO DAILY 05/24/22 07/16/23 12/26/22 History hgcuwpiiao-klvmxjviuwbrz-yabihntw 2 tab PO DAILY PRN headache 11/08/22 07/16/23 Unknown History 50 mg-325 mg-40 mg tablet ferrous sulfate 325 mg (65 mg 1 tab PO DAILY 11/08/22 07/16/23 12/26/22 History iron) tablet (FeroSul) tiotropium bromide 2.5 2 puff inhalation DAILY 11/08/22 07/16/23 12/26/22 History mcg/actuation mist for inhalation (Spiriva Respimat) tramadol 50 mg tablet 50 mg PO Q6H PRN pain 11/08/22 07/16/23 Unknown History fluoxetine 20 mg capsule 2 cap PO DAILY 12/27/22 07/16/23 12/26/22 History apixaban 5 mg tablet (Eliquis) 5 mg PO BID 01/03/23 07/16/23 Unknown History fluticasone propionate 220 1 inh inhalation BID 01/03/23 07/16/23 Unknown History mcg/actuation HFA aerosol inhaler (Flovent HFA) folic acid 1 mg tablet 1 mg PO DAILY 01/03/23 07/16/23 Unknown History levothyroxine 175 mcg tablet 175 mcg PO DAILY 01/03/23 07/16/23 Unknown History multivitamin (One Daily 1 tab PO DAILY 01/03/23 07/16/23 Unknown History Multivitamin tablet) Physical Exam 2 Vital Signs and Narrative: Vital Signs: Last Vital Signs Temp 99.1 F 07/31/23 23:55 Pulse 96 08/01/23 02:46 Resp 15 08/01/23 02:46 BP 104/54 L 08/01/23 02:46 Pulse Ox 96 08/01/23 02:46 O2 Del Method Room Air 08/01/23 02:46 BMI result Body Mass Index 24.6 Results Labs 07/31/23 23:46 07/31/23 23:46 Labs: Laboratory Results - last 24 hr 07/31/23 08/01/23 23:46 01:14 MCV 79.8 L MCH 25.0 L MCHC 31.4 RDW 13.2 Plt Count 362 D MPV 8.1 L Immature Gran % (Auto) 2.1 H Neut % (Auto) 76.8 H Lymph % (Auto) 11.9 L [place] % (Auto) 7.1 Eos % (Auto) 1.6 Baso % (Auto) 0.5 Lymph # (Auto) 3.1 [place] # (Auto) 1.9 H Eos # (Auto) 0.4 Baso # (Auto) 0.1 Abs Immat Gran (auto) 0.54 H Absolute Neuts (auto) 20.0 H Absolute Nucleated RBC 0.000 Nucleated RBC % (auto) 0.0 Smear Tech's Comments VERIFIED Anion Gap 9 L Estim Creat Clear Calc 77.3 Estimated GFR > 60 Random Glucose 91 Lactic Acid 0.9 Calcium 8.2 L D Total Bilirubin 0.2 AST 22 ALT 12 Alkaline Phosphatase 155 H Total Protein 4.4 L Albumin 2.0 L Procalcitonin 0.07 Imaging Radiologist's Impressions: Impressions Chest X-Ray 08/01/23 00:02 IMPRESSION: Chronic changes of post Covid scarring/fibrosis. Of note, the airspace opacities in both lungs appear slightly more pronounced as compared to the prior study, particularly in the right upper lobe and left midlung, potentially corresponding to new superimposed airspace disease Assessment and Plan (1) Community acquired pneumonia: Status: Acute Plan This is a 48-year-old female with pertinent history of COPD not on home oxygen but on long-stem steroids, mood disorder, SLE, rheumatoid arthritis, history of CVA, connective tissue disease,PAD on Eliquis, mood disorder who presents to the emergency department for evaluation of dyspnea and cough. #. Sepsis and acute respiratory distress due to pneumonia. Will admit patient and initiate empiric IV antibiotics. Blood culture and sputum culture pending. Lactic acid obtained. Resuscitated with IV crystalloids. #. Hypokalemia. Repleted #. COPD. No exacerbation during admission. Continue home inhalers and prednisone #. Mood disorder. Continue home mood stabilizers #. PAD. On Eliquis #. CVA. On statin and Eliquis. Not on antiplatelet agent #. Hypothyroidism. Continue levothyroxine #. Mixed connective tissue disease/rheumatoid arthritis/lupus: Continue prednisone and sulfasalazine, hydroxychloroquine #. Tobacco use disorder. Counseled regarding cessation. Offered nicotine patch while in the hospital Med rec pending DVT prophylaxis: Arline Full code Admit as inpatient and will require two night minimum hospital stay for IV antibiotics Time Spent With Patient Time: Total time managing care of this patient today ____ minutes. Quality Stroke Does the patient have a stroke diagnosis?: No VTE Prior VTE?: No VTE Risk Level:: Medical - moderate - high VTE Device Contraindication: Treatment Not Indicated VTE Drug Contraindication: N/A - Med Ordered
[2023-08-01 03:14] LABS: Influenza A PCR NEGATIVE (Negative); Influenza B PCR NEGATIVE (Negative); Resp Syncy Virus RNA Qual PCR NEGATIVE (Negative); SARS COV2 PCR INHOUSE NEGATIVE (Negative)
[2023-08-01 06:16] LABS: Alanine Aminotransferase 10 U/L (0-31); Albumin Level 1.8 g/dL (3.5-5.0); Alkaline Phosphatase 134 U/L (39-117); Anion Gap 10 (12-20); Aspartate Amino Transferase 17 U/L (5-31); Bilirubin Total 0.1 mg/dL (0.0-1.0); Blood Urea Nitrogen 13 mg/dL (9-16); Calcium 7.5 mg/dL (8.4-10.2); Carbon Dioxide 27 mmol/L (22-29); Chloride 106 mmol/L (96-108); Creatinine Clr Calc Pharmacy 85.3; Estimated Glomerular Filt Rate > 60; Glucose Random 113 mg/dL (60-115); Potassium 3.4 mmol/L (3.3-5.1); Sodium 140 mmol/L (135-145); Total Protein 3.8 g/dL (6.5-8.0)
--- NOTE | 2023-08-01 07:42 | PC.NURSE ---
assumed care of pt at 0700. pt sleeping, hunched over to the side. tried to wake pt up for breakfast but too lethargic to wake up. rr even/unlabored. awaiting bed assignment. call dickens within pt reach.
--- NOTE | 2023-08-01 08:27 | PHA.MEDREC ---
Pharmacy Consult ? Medication Reconciliation Pharmacy has completed the medication reconciliation Used list from office and pharmacy claim .
[2023-08-01 09:05] LABS: Procalcitonin 0.06 ng/mL
[2023-08-01] MEDS: methylPREDNISolone Sod Succ 40 MG/ML VIAL IVPUSH (09:39)
[2023-08-01] MEDS: Multivitamin TABLET 1 TAB PO (09:42)
[2023-08-01] MEDS: FLUoxetine HCl 20 MG CAPSULE 40 MG PO (09:42)
[2023-08-01] MEDS: Apixaban 5 MG TABLET PO ×2 (09:42→20:36)
[2023-08-01] MEDS: Hydroxychloroquine Sulfate 200 MG TABLET 300 MG PO ×2 (09:43→20:35)
[2023-08-01] MEDS: Folic Acid 1 MG TABLET PO (09:43)
[2023-08-01] MEDS: buPROPion HCl XL 150 MG TAB.ER.24H PO (09:43)
[2023-08-01] MEDS: Famotidine 20 MG TABLET PO (09:43)
[2023-08-01] MEDS: Nicotine 21 MG PATCH.TD24 TRANSDERMA (09:49)
[2023-08-01 10:10] LABS: MRSA Nasal PCR NEGATIVE (Negative); SA Nasal PCR POSITIVE (Negative)
--- NOTE | 2023-08-01 10:25 | PC.NURSE ---
report given to ERIKA Carrasco on IMC
[2023-08-01] MEDS: Levothyroxine Sodium 175 MCG TABLET PO (10:57)
[2023-08-01 11:12] LABS: Appearance Urine Clear; Color Urine Dark Yellow; Glucose Urine UA Negative (Negative); Leukocyte Esterase Urine Moderate (2+) (Negative); Nitrite Urine Negative (Negative); UMIC TRIGGER UACC YES; Urine Blood Negative (Negative); Urine Ketones Negative (Negative); Urine Protein Trace mg/dL (Neg-Trace)
[2023-08-01 11:14] LABS: Bacteria Urine 1+ (None Seen); Hyaline Casts Urine 0-2 /LPF (0-2); RBC Urine 0-2 /HPF (0-2); UACC Culture Trigger YES
--- NOTE | 2023-08-01 12:51 | PM.EVENT ---
Event Note Date of Service: 08/01/23 Event Note: Day hospitalist update S: O: A/P: d1 48yo F with COPD, PAD, hx CVA SLE/RA/MCTD on chronic prednisone + hydroxychloroquine presenting with dyspnea + cough admitted for sepsis due to PNA + COPD exac PNA - ceftriaxone + doxycycline, flu/RSV/Covid negative, follow BCx COPD exacerbation - methlyprednisolone IV 40 mg/d - nebs - controller tiotropium + fluticasone hypoK - repleted SLE/RA/MCTD - on chronic prednisone 5 mg/d at home; on methylprednisolone here - continue hydroxychloroquine mood disorder - continue bupropion + fluoxetine + nortriptyline + lorazepam hypothyroidism - continue LT4 tobacco abuse - NRT PAD - continue apixban, statin VTE ppx - apixaban dispo - TBD In my clinical judgment, the patient requires continued inpatient hospitalization for the following reasons: IV ABX Time Spent With Patient Time: Total time managing care of this patient today ____ minutes.
[2023-08-01] MEDS: Acetaminophen 325 MG TABLET 650 MG PO (14:57)
[2023-08-01] MEDS: Nystatin Ointment 15 GM TUBE 1 APPL TOPICAL ×2 (14:58→20:40)
--- NOTE | 2023-08-01 15:29 | MHC.CM.PN ---
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 PT VERIFIES PCP ON FILE AND REPORTS SHE HAS AN UPDATED HCP W/HER SISTER OWEN FARRELL (NUMBER ON FILE) HER HCA AND AN ALTERNATE JOSE BAR [phone], COPY REQUESTED CM UNABLE TO LOCATE IN [facility].
[2023-08-01] MEDS: 0.9 % Sodium Chloride Flush 3 ML SYRINGE IVFLUSH (16:51)
[2023-08-01] MEDS: Nortriptyline HCl 25 MG CAPSULE 75 MG PO (20:34)
[2023-08-01] MEDS: Pravastatin Sodium 40 MG TABLET PO (20:36)
[2023-08-01] MEDS: Fluticasone Propionate 250 MCG BLST.W.DEV 1 PUFF INHALE (21:08)
[2023-08-02] MEDS: Acetaminophen 325 MG TABLET 650 MG PO ×3 (01:24→15:14)
[2023-08-02] MEDS: 0.9 % Sodium Chloride Flush 3 ML SYRINGE IVFLUSH ×4 (01:26→20:18)
[2023-08-02] MEDS: Doxycycline Hyclate 100 MG in 0.9 % Sodium Chloride 250 ML 166.67 MG IV ×2 (03:45→15:06)
[2023-08-02 03:48] VITALS: BP 93/61; PULSE 91; RESP 20; TEMP 37.2; O2SAT 91
[2023-08-02] MEDS: Levothyroxine Sodium 175 MCG TABLET PO (05:46)
[2023-08-02 07:14] LABS: Hematocrit 37.8 % (37.0-47.0); Hemoglobin 11.7 g/dl (12.0-16.0); Mean Corpuscular Hemoglobin 25.7 pg (27.0-33.0); Mean Corpuscular Volume 83.1 fL (80.0-98.0); Mean Platelet Volume 8.3 fL (9.4-12.3); Platelet Count 279 X10*3/uL (160-400); Red Blood Count 4.55 X10*6/uL (4.20-5.50); Red Cell Distribution Width 13.6 % (11.0-16.0); White Blood Count 17.5 X10*3/uL (4.8-10.8)
[2023-08-02 07:30] VITALS: BP 99/60; PULSE 90; RESP 20; TEMP 37.1; O2SAT 95
[2023-08-02 07:42] LABS: Anion Gap 10 (12-20); Blood Urea Nitrogen 14 mg/dL (9-16); Calcium 7.6 mg/dL (8.4-10.2); Carbon Dioxide 25 mmol/L (22-29); Chloride 108 mmol/L (96-108); Creatinine Clr Calc Pharmacy 85.3; Estimated Glomerular Filt Rate > 60; Glucose Random 77 mg/dL (60-115); Potassium 3.6 mmol/L (3.3-5.1); Sodium 139 mmol/L (135-145)
[2023-08-02] MEDS: Fluticasone Propionate 250 MCG BLST.W.DEV 1 PUFF INHALE ×2 (08:10→18:47)
[2023-08-02] MEDS: methylPREDNISolone Sod Succ 40 MG/ML VIAL IVPUSH (08:11)
[2023-08-02] MEDS: Apixaban 5 MG TABLET PO ×2 (08:12→20:18)
[2023-08-02] MEDS: Nicotine 21 MG PATCH.TD24 TRANSDERMA (08:12)
[2023-08-02] MEDS: Hydroxychloroquine Sulfate 200 MG TABLET 300 MG PO ×2 (08:12→20:17)
[2023-08-02] MEDS: Folic Acid 1 MG TABLET PO (08:12)
[2023-08-02] MEDS: FLUoxetine HCl 20 MG CAPSULE 40 MG PO (08:12)
[2023-08-02] MEDS: guaiFENesin 100 MG/5 ML LIQUID PO ×3 (08:12→20:18)
[2023-08-02] MEDS: Multivitamin TABLET 1 TAB PO (08:12)
[2023-08-02] MEDS: buPROPion HCl XL 150 MG TAB.ER.24H PO (08:12)
[2023-08-02] MEDS: Famotidine 20 MG TABLET PO (08:12)
[2023-08-02] MEDS: Nystatin Ointment 15 GM TUBE 1 APPL TOPICAL ×2 (08:15→20:15)
--- NOTE | 2023-08-02 10:33 | P.PNIM_ITS ---
Subjective Subjective Date of Service: 08/02/23 Interval History: dyspnea + cough improving no fever still wheezing some Review of Systems Review of Systems: Yes all other systems are reviewed and are negative Physical Exam 2 Vital Signs: Vital Signs: Last Vital Signs Temp 98.7 F 08/02/23 07:30 Pulse 90 08/02/23 07:30 Resp 20 08/02/23 07:30 BP 99/60 08/02/23 07:30 Pulse Ox 95 08/02/23 07:30 O2 Del Method Room Air 08/02/23 07:30 BMI result Body Mass Index 25.4 Gen: in no acute distress HEENT: sclera anicteric, moist mucus membranes Neck: supple Lungs: scattered rhonchi Heart: regular rate and rhythm, no murmurs Abd: soft, non-tender, non-distended Ext: no edema Skin: warm/well-perfused Neuro: alert and oriented x3, no focal findings Psych: appropriate affect Objective Data Active Medications Acetaminophen (Acetaminophen 325 Mg Tablet) 650 mg PO Q6H PRN PRN Reason: Pain, Mild (Pain Scale 1-3) Last Admin: 08/02/23 08:12 Dose: 650 mg Documented By: JERRELL Acetaminophen/Butalbital/Caffeine (Butalb/Acetamin/Caff 50/325/40 Tablet) 2 tab PO DAILY PRN PRN Reason: headache Albuterol Sulfate (Albuterol Sulfate (0.083%) 2.5 Mg/3 Ml Vial.Neb) 2.5 mg INHALE Q6H PRN PRN Reason: Shortness Of Breath Or Wheezing Apixaban (Apixaban 5 Mg Tablet) 5 mg PO BID [facility] [place] Last Admin: 08/02/23 08:12 Dose: 5 mg Documented By: JERRELL Bupropion HCl (Bupropion Hcl Xl 150 Mg Tab.Er.24h) 150 mg PO DAILY [facility] [place] Last Admin: 08/02/23 08:12 Dose: 150 mg Documented By: JERRELL Famotidine (Famotidine 20 Mg Tablet) 20 mg PO DAILY [facility] [place] Last Admin: 08/02/23 08:12 Dose: 20 mg Documented By: JERRELL Fluoxetine HCl (Fluoxetine Hcl 20 Mg Capsule) 40 mg PO DAILY [facility] [place] Last Admin: 08/02/23 08:12 Dose: 40 mg Documented By: JERRELL Fluticasone Propionate (Fluticasone Propionate 250 Mcg Blst.W.Dev) 1 puff INHALE RBID [facility] [place] Last Admin: 08/02/23 08:10 Dose: 1 puff Documented By: EVERETTE Folic Acid (Folic Acid 1 Mg Tablet) 1 mg PO DAILY [facility] [place] Last Admin: 08/02/23 08:12 Dose: 1 mg Documented By: JERRELL Guaifenesin (Guaifenesin 100 Mg/5 Ml Liquid) 5 ml PO Q4H PRN PRN Reason: Cough Last Admin: 08/02/23 08:12 Dose: 5 ml Documented By: JERRELL Hydroxychloroquine Sulfate (Hydroxychloroquine Sulfate 200 Mg Tablet) 300 mg PO BID [facility] [place] Last Admin: 08/02/23 08:12 Dose: 300 mg Documented By: JERRELL Ceftriaxone Sodium 1 gm/ (Sodium Chloride) 50 mls @ 100 mls/hr IV Q24H [facility] [place] Last Infusion: 08/01/23 23:37 Dose: Infused Documented By: DOMINGA Doxycycline Hyclate 100 mg/ (Sodium Chloride) 250 mls @ 166.67 mls/hr IV Q12H [facility] [place] Last Infusion: 08/02/23 05:25 Dose: Infused Documented By: DOMINGA Levothyroxine Sodium (Levothyroxine Sodium 175 Mcg Tablet) 175 mcg PO DAILY@0600 [facility] [place] Last Admin: 08/02/23 05:46 Dose: 175 mcg Documented By: DOMINGA Loratadine (Loratadine 10 Mg Tablet) 10 mg PO DAILY PRN PRN Reason: allergies Lorazepam (Lorazepam 1 Mg Tablet) 1 mg PO BID PRN PRN Reason: anxiety Melatonin (Melatonin 3 Mg Tablet) 6 mg PO BEDTIME PRN PRN Reason: Insomnia Methylprednisolone Sodium Succinate (Methylprednisolone Sod Succ 40 Mg/Ml Vial) 40 mg IVPUSH Q24H [facility] [place] Last Admin: 08/02/23 08:11 Dose: 40 mg Documented By: JERRELL Multivitamins/Vitamin C (Multivitamin Tablet) 1 tab PO DAILY [facility] [place] Last Admin: 08/02/23 08:12 Dose: 1 tab Documented By: JERRELL Nicotine (Nicotine 21 Mg Patch.Td24) 21 mg TRANSDERMA DAILY [facility] [place] Last Admin: 08/02/23 08:12 Dose: 21 mg Documented By: JERRELL Nortriptyline HCl (Nortriptyline Hcl 25 Mg Capsule) 75 mg PO BEDTIME [facility] [place] Last Admin: 08/01/23 20:34 Dose: 75 mg Documented By: DOMINGA Nystatin (Nystatin Ointment 15 Gm Tube) 1 appl TOPICAL BID [facility] [place]; Protocol Last Admin: 08/02/23 08:15 Dose: 1 appl Documented By: JERRELL Ondansetron HCl (Ondansetron Hcl 4 Mg/2 Ml Vial) 4 mg IVPUSH Q8H PRN PRN Reason: Nausea and Vomiting Pravastatin Sodium (Pravastatin Sodium 40 Mg Tablet) 40 mg PO BEDTIME [facility] [place] Last Admin: 08/01/23 20:36 Dose: 40 mg Documented By: DOMINGA Sodium Chloride (0.9 % Sodium Chloride Flush 3 Ml Syringe) 3 ml IVFLUSH QSHIFT [facility] [place] Last Admin: 08/02/23 08:15 Dose: 3 ml Documented By: JERRELL Tiotropium [place] (Tiotropium [place] 2.5 Mcg Inhaler) 2 puff INHALE RDAILY [facility] [place] Last Admin: 08/02/23 08:11 Dose: Not Given Documented By: EVERETTE Non-Admin Reason: pharmacy called Labs 08/02/23 07:03 08/02/23 07:03 Labs: Laboratory Results - last 24 hr 08/01/23 08/02/23 10:48 07:03 MCV 83.1 MCH 25.7 L MCHC 31.0 RDW 13.6 Plt Count 279 MPV 8.3 L Absolute Nucleated RBC 0.000 Nucleated RBC % (auto) 0.0 Anion Gap 10 L Estim Creat Clear Calc 85.3 Estimated GFR > 60 Random Glucose 77 Calcium 7.6 L Urine Color Dark Yellow Urine Appearance Clear Urine pH 6.0 Ur Specific [place] 1.020 Urine Protein Trace Urine Glucose (UA) Negative Urine Ketones Negative Urine Blood Negative Urine Nitrite Negative Ur Leukocyte Esterase Moderate (2+) H Urine RBC 0-2 Urine WBC 6-10 H Ur Squamous Epith Cells 6-10 Urine Bacteria 1+ Hyaline Casts 0-2 Microbiology Microbiology Results: Microbiology 08/01/23 01:14 Blood Culture - Preliminary Blood - Venous No growth after 24 hours. 08/01/23 01:14 Blood Culture - Preliminary Blood - Venous No growth after 24 hours. Assessment and Plan (1) Community acquired pneumonia: Status: Acute Plan d2 48yo F with COPD, PAD, hx CVA SLE/RA/MCTD on chronic prednisone + hydroxychloroquine presenting with dyspnea + cough admitted for sepsis due to PNA + COPD exac PNA - d2 ceftriaxone + doxycycline, flu/RSV/Covid negative, follow BCx COPD exacerbation - methlyprednisolone IV 40 mg/d, possibly change to prednisone tomorrow with gradual taper back to home dose of 5 mg/d - nebs - controller tiotropium + fluticasone hypoK - repleted SLE/RA/MCTD - on chronic prednisone 5 mg/d at home; on methylprednisolone here - continue hydroxychloroquine mood disorder - continue bupropion + fluoxetine + nortriptyline + lorazepam hypothyroidism - continue LT4 tobacco abuse - NRT PAD - continue apixban, statin VTE ppx - apixaban dispo - possibly home tomorrow In my clinical judgment, the patient requires continued inpatient hospitalization for the following reasons: IV ABX due to immunosupression Time Spent With Patient Time: Total time managing care of this patient today __35__ minutes. Quality Stroke Does the patient have a stroke diagnosis?: No VTE Prior VTE?: No VTE Risk Level:: Medical - moderate - high VTE Device Contraindication: Treatment Not Indicated VTE Drug Contraindication: N/A - Med Ordered
--- NOTE | 2023-08-02 13:24 | MHC.CM.PN ---
EMR REVIEWED, PT W/DYSPNEA, SOME WHEEZING, PER HOSPITALIST NO PLAN FOR D/C TODAY, ANTIC PT MAY DC OVER W/E, PT EVAL REQUESTED AND CM WILL CONT TO FOLLOW D/C NEEDS.
--- NOTE | 2023-08-02 14:38 | MHC.CM.PN ---
EMR REVIEWED, Tamir FRANCOIS REQUESTED PT REPORTS SHE IS MAINLY USING W/C NOW AND NOT WALKER, PT REPORTS SHE PREFERS [facility]BV IF STR RECOMMENDED AND DECLINES HOME SERVICES, ANTIC PT WILL BE CLEARED OVER W/E, CM WILL CONT TO FOLLOW DC NEEDS.
[2023-08-02 16:00] VITALS: BP 111/55; PULSE 92; RESP 18; TEMP 37; O2SAT 93
[2023-08-02 18:48] VITALS: PULSE 87; RESP 18; O2SAT 91
[2023-08-02 19:13] VITALS: BP 103/55; PULSE 88; RESP 20; TEMP 37.3; O2SAT 92
[2023-08-02] MEDS: Nortriptyline HCl 25 MG CAPSULE 75 MG PO (20:17)
[2023-08-02] MEDS: Pravastatin Sodium 40 MG TABLET PO (20:17)
[2023-08-02] MEDS: Melatonin 3 MG TABLET 6 MG PO (20:17)
[2023-08-02] MEDS: ondansetron HCL 4 MG/2 ML VIAL IVPUSH (20:17)
[2023-08-02] MEDS: cefTRIAXone sodium 1 GM in 0.9 % Sodium Chloride 50 ML IV (21:56)
[2023-08-03] VITALS (8 sets, daily range): BP systolic 100–136; BP diastolic 58–67; PULSE 69–114; RESP 14–20; TEMP 36.3–36.9; O2SAT 83–95
[2023-08-03] MEDS: Doxycycline Hyclate 100 MG in 0.9 % Sodium Chloride 250 ML 166.67 MG IV (03:34)
[2023-08-03] MEDS: Levothyroxine Sodium 175 MCG TABLET PO (06:05)
[2023-08-03] MEDS: guaiFENesin 100 MG/5 ML LIQUID PO (07:43)
[2023-08-03] MEDS: 0.9 % Sodium Chloride Flush 3 ML SYRINGE IVFLUSH ×3 (07:44→20:53)
[2023-08-03] MEDS: methylPREDNISolone Sod Succ 40 MG/ML VIAL IVPUSH (07:44)
[2023-08-03] MEDS: FLUoxetine HCl 20 MG CAPSULE 40 MG PO (07:44)
[2023-08-03] MEDS: buPROPion HCl XL 150 MG TAB.ER.24H PO (07:44)
[2023-08-03] MEDS: LORazepam 1 MG TABLET PO ×2 (07:44→22:37)
[2023-08-03] MEDS: Multivitamin TABLET 1 TAB PO (07:44)
[2023-08-03] MEDS: Hydroxychloroquine Sulfate 200 MG TABLET 300 MG PO ×2 (07:44→20:52)
[2023-08-03] MEDS: Nicotine 21 MG PATCH.TD24 TRANSDERMA (07:45)
[2023-08-03] MEDS: Apixaban 5 MG TABLET PO ×2 (07:45→20:52)
[2023-08-03] MEDS: Famotidine 20 MG TABLET PO (07:45)
[2023-08-03] MEDS: Folic Acid 1 MG TABLET PO (07:45)
[2023-08-03] MEDS: Acetaminophen 325 MG TABLET 650 MG PO (07:45)
[2023-08-03] MEDS: Fluticasone Propionate 250 MCG BLST.W.DEV 1 PUFF INHALE ×2 (07:47→19:08)
[2023-08-03] MEDS: Nystatin Ointment 15 GM TUBE 1 APPL TOPICAL ×2 (07:49→20:51)
--- NOTE | 2023-08-03 11:56 | HO.PM.IMPN ---
Subjective Subjective Date of Service: 08/03/23 Interval History: c/o weakness + generalized aching some wheezing Review of Systems Review of Systems: Yes all other systems are reviewed and are negative Physical Exam Vital Signs: Vital Signs: Last Vital Signs Temp 97.5 F 08/03/23 07:48 Pulse 69 08/03/23 07:53 Resp 18 08/03/23 07:53 BP 102/60 08/03/23 07:48 Pulse Ox 92 08/03/23 07:48 O2 Del Method Room Air 08/03/23 07:48 BMI result Body Mass Index 25.4 Gen: tired, weak-appearing HEENT: sclera anicteric, moist mucus membranes Neck: supple Lungs: scattered rhonchi + expiratory wheezing Heart: regular rate and rhythm, no murmurs Abd: soft, non-tender, non-distended Ext: no edema Skin: warm/well-perfused Neuro: alert and oriented x3, no focal findings Psych: appropriate affect Objective Data Active Medications Acetaminophen (Acetaminophen 325 Mg Tablet) 650 mg PO Q6H PRN PRN Reason: Pain, Mild (Pain Scale 1-3) Last Admin: 08/03/23 07:45 Dose: 650 mg Documented By: TOMMY Acetaminophen/Butalbital/Caffeine (Butalb/Acetamin/Caff 50/325/40 Tablet) 2 tab PO DAILY PRN PRN Reason: headache Albuterol Sulfate (Albuterol Sulfate (0.083%) 2.5 Mg/3 Ml Vial.Neb) 2.5 mg INHALE Q6H PRN PRN Reason: Shortness Of Breath Or Wheezing Apixaban (Apixaban 5 Mg Tablet) 5 mg PO BID [facility] Last Admin: 08/03/23 07:45 Dose: 5 mg Documented By: TOMMY Bupropion HCl (Bupropion Hcl Xl 150 Mg Tab.Er.24h) 150 mg PO DAILY [facility] Last Admin: 08/03/23 07:44 Dose: 150 mg Documented By: TOMMY Famotidine (Famotidine 20 Mg Tablet) 20 mg PO DAILY [facility] Last Admin: 08/03/23 07:45 Dose: 20 mg Documented By: TOMMY Fluoxetine HCl (Fluoxetine Hcl 20 Mg Capsule) 40 mg PO DAILY [facility] Last Admin: 08/03/23 07:44 Dose: 40 mg Documented By: TOMMY Fluticasone Propionate (Fluticasone Propionate 250 Mcg Blst.W.Dev) 1 puff INHALE RBID [facility] Last Admin: 08/03/23 07:47 Dose: 1 puff Documented By: SAMIR Folic Acid (Folic Acid 1 Mg Tablet) 1 mg PO DAILY [facility] Last Admin: 08/03/23 07:45 Dose: 1 mg Documented By: TOMMY Guaifenesin (Guaifenesin 100 Mg/5 Ml Liquid) 5 ml PO Q4H PRN PRN Reason: Cough Last Admin: 08/03/23 07:43 Dose: 5 ml Documented By: TOMMY Hydroxychloroquine Sulfate (Hydroxychloroquine Sulfate 200 Mg Tablet) 300 mg PO BID [facility] Last Admin: 08/03/23 07:44 Dose: 300 mg Documented By: TOMMY Ceftriaxone Sodium 1 gm/ (Sodium Chloride) 50 mls @ 100 mls/hr IV Q24H [facility] Last Infusion: 08/02/23 22:52 Dose: Infused Documented By: NEVA Doxycycline Hyclate 100 mg/ (Sodium Chloride) 250 mls @ 166.67 mls/hr IV Q12H [facility] Last Infusion: 08/03/23 05:34 Dose: Infused Documented By: NEVA Levothyroxine Sodium (Levothyroxine Sodium 175 Mcg Tablet) 175 mcg PO DAILY@0600 [facility] Last Admin: 08/03/23 06:05 Dose: 175 mcg Documented By: NEVA Loratadine (Loratadine 10 Mg Tablet) 10 mg PO DAILY PRN PRN Reason: allergies Lorazepam (Lorazepam 1 Mg Tablet) 1 mg PO BID PRN PRN Reason: anxiety Last Admin: 08/03/23 07:44 Dose: 1 mg Documented By: TOMMY Melatonin (Melatonin 3 Mg Tablet) 6 mg PO BEDTIME PRN PRN Reason: Insomnia Last Admin: 08/02/23 20:17 Dose: 6 mg Documented By: NEVA Methylprednisolone Sodium Succinate (Methylprednisolone Sod Succ 40 Mg/Ml Vial) 40 mg IVPUSH Q24H [facility] Last Admin: 08/03/23 07:44 Dose: 40 mg Documented By: TOMMY Multivitamins/Vitamin C (Multivitamin Tablet) 1 tab PO DAILY [facility] Last Admin: 08/03/23 07:44 Dose: 1 tab Documented By: TOMMY Nicotine (Nicotine 21 Mg Patch.Td24) 21 mg TRANSDERMA DAILY [facility] Last Admin: 08/03/23 07:45 Dose: 21 mg Documented By: TOMMY Nortriptyline HCl (Nortriptyline Hcl 25 Mg Capsule) 75 mg PO BEDTIME [facility] Last Admin: 08/02/23 20:17 Dose: 75 mg Documented By: NEVA Nystatin (Nystatin Ointment 15 Gm Tube) 1 appl TOPICAL BID [facility]; Protocol Last Admin: 08/03/23 07:49 Dose: 1 appl Documented By: TOMMY Ondansetron HCl (Ondansetron Hcl 4 Mg/2 Ml Vial) 4 mg IVPUSH Q8H PRN PRN Reason: Nausea and Vomiting Last Admin: 08/02/23 20:17 Dose: 4 mg Documented By: NEVA Pravastatin Sodium (Pravastatin Sodium 40 Mg Tablet) 40 mg PO BEDTIME [facility] Last Admin: 08/02/23 20:17 Dose: 40 mg Documented By: NEVA Sodium Chloride (0.9 % Sodium Chloride Flush 3 Ml Syringe) 3 ml IVFLUSH QSHIFT [facility] Last Admin: 08/03/23 07:44 Dose: 3 ml Documented By: TOMMY Tiotropium [place] (Tiotropium [place] 2.5 Mcg Inhaler) 2 puff INHALE RDAILY [facility] Last Admin: 08/03/23 07:47 Dose: 2 puff Documented By: ANNALISANE Labs 08/02/23 07:03 08/02/23 07:03 Microbiology Microbiology Results: Microbiology 08/01/23 01:14 Blood Culture - Preliminary Blood - Venous No growth after 48 hours. 08/01/23 01:14 Blood Culture - Preliminary Blood - Venous No growth after 48 hours. 08/01/23 Unknown Urine Culture - Final Urine clean catch - Urine [place] Assessment and Plan (1) Community acquired pneumonia: Status: Acute Plan d3 48yo F with COPD, PAD, hx CVA SLE/RA/MCTD on chronic prednisone + hydroxychloroquine presenting with dyspnea + cough admitted for sepsis due to PNA + COPD exac PNA - d3 ceftriaxone + doxycycline, flu/RSV/Covid negative, BCx negative to date COPD exacerbation - methlyprednisolone IV 40 mg/d, possibly change to prednisone tomorrow with gradual taper back to home dose of 5 mg/d - nebs - controller tiotropium + fluticasone acute hypoxic resp failure - currently qualifies for 2L O2 with ambulation hypoK - repleted SLE/RA/MCTD - on chronic prednisone 5 mg/d at home; on methylprednisolone here - continue hydroxychloroquine mood disorder - continue bupropion + fluoxetine + nortriptyline + lorazepam hypothyroidism - continue LT4 tobacco abuse - NRT PAD - continue apixban, statin VTE ppx - apixaban dispo - PT eval pending In my clinical judgment, the patient requires continued inpatient hospitalization for the following reasons: IV ABX due to immunosupression, weakness pending PT eval Time Spent With Patient Time: Total time managing care of this patient today ___35_ minutes. Quality Stroke Does the patient have a stroke diagnosis?: No VTE Prior VTE?: No VTE Risk Level:: Medical - moderate - high VTE Device Contraindication: Treatment Not Indicated VTE Drug Contraindication: N/A - Med Ordered
[2023-08-03] MEDS: Doxycycline Hyclate 100 MG in 0.9 % Sodium Chloride 250 ML 166.7 MG IV (14:57)
[2023-08-03] MEDS: Nortriptyline HCl 25 MG CAPSULE 75 MG PO (20:51)
[2023-08-03] MEDS: Pravastatin Sodium 40 MG TABLET PO (20:52)
[2023-08-03] MEDS: Melatonin 3 MG TABLET 6 MG PO (20:53)
[2023-08-03] MEDS: cefTRIAXone sodium 1 GM in 0.9 % Sodium Chloride 50 ML IV (22:11)
[2023-08-04] MEDS: Doxycycline Hyclate 100 MG in 0.9 % Sodium Chloride 250 ML 166.7 MG IV (03:56)
[2023-08-04 04:00] VITALS: BP 119/73; PULSE 93; RESP 16; TEMP 36.1; O2SAT 93
[2023-08-04] MEDS: Levothyroxine Sodium 175 MCG TABLET PO (06:02)
--- NOTE | 2023-08-04 06:17 | PC.NURSE ---
assumed care of pt at 2300. pt is a&o x3. denies complaints. no acute resp distress at rest. occassional congested cough noted. vitals stable. o2 sat stable on room air at rest. pt slept most of night. taking sips of fluids without difficulty.
[2023-08-04] MEDS: Fluticasone Propionate 250 MCG BLST.W.DEV 1 PUFF INHALE (07:56)
[2023-08-04 07:59] VITALS: PULSE 91; RESP 20; O2SAT 89
[2023-08-04 08:00] VITALS: BP 107/63; PULSE 91; RESP 16; TEMP 36.2; O2SAT 92
[2023-08-04] MEDS: Apixaban 5 MG TABLET PO (09:14)
[2023-08-04] MEDS: methylPREDNISolone Sod Succ 40 MG/ML VIAL IVPUSH (09:14)
[2023-08-04] MEDS: Hydroxychloroquine Sulfate 200 MG TABLET 300 MG PO (09:14)
[2023-08-04] MEDS: guaiFENesin 100 MG/5 ML LIQUID PO (09:14)
[2023-08-04] MEDS: FLUoxetine HCl 20 MG CAPSULE 40 MG PO (09:14)
[2023-08-04] MEDS: LORazepam 1 MG TABLET PO (09:14)
[2023-08-04] MEDS: Acetaminophen 325 MG TABLET 650 MG PO (09:15)
[2023-08-04] MEDS: Famotidine 20 MG TABLET PO (09:15)
[2023-08-04] MEDS: buPROPion HCl XL 150 MG TAB.ER.24H PO (09:15)
[2023-08-04] MEDS: Multivitamin TABLET 1 TAB PO (09:15)
[2023-08-04] MEDS: 0.9 % Sodium Chloride Flush 3 ML SYRINGE IVFLUSH (09:15)
[2023-08-04] MEDS: Nicotine 21 MG PATCH.TD24 TRANSDERMA (09:15)
[2023-08-04] MEDS: Folic Acid 1 MG TABLET PO (09:15)
--- NOTE | 2023-08-04 10:12 | PM.DS ---
DS: Providers Provider Date of Service: 08/04/23 Date of admission: 08/01/23 02:44 Date of discharge: 08/04/23 Primary care physician: Barbie Brown MD DS: Diagnosis Discharge Diagnosis (1) Community acquired pneumonia: Status: Acute (2) COPD exacerbation: Status: Acute (3) Respiratory failure with hypoxia: Status: Acute (4) Tobacco abuse: Status: Acute (5) Sepsis: Status: Acute DS: Summary Hospital Course Hospital Course: from admission H+P by hospitalist Chuyita Fall MD, 08/01/23: This is a 48-year-old female with pertinent history of COPD not on home oxygen but on long-stem steroids, mood disorder, SLE, rheumatoid arthritis, history of CVA, connective tissue disease, PAD on Eliquis, mood disorder who presents to the emergency department for evaluation of dyspnea and cough. Patient states symptoms started 1 week prior to presentation. It has been progressive over the last 3-4 days. Patient has been having constant cough with yellowish sputum production. Also complains of fever, documented temperature 100.4 degrees at home. Is having body aches and chills. Has been using home steroids and denies wheezing. No chest discomfort, palpitations, abdominal pain, changes in urinary or bowel habits. Does endorse dyspnea worse with exertion. No orthopnea or PND. In the emergency department, imaging concerning for pneumonia and patient was found to be septic Ms Rea is a 48yo F with COPD, PAD, hx CVA, hx severe Covid-19 PNA with ARDS, SLE/RA/MCTD on chronic prednisone + hydroxychloroquine presenting with dyspnea + cough, who was [place] [facility] [place] due to [place] + COPD exacerbation. Hospital course by problem: pneumonia - Treated with 3 days of ceftraixone + doxycycline. Flu/RSV/Covid-19 PCR negative. Blood cultures negative. Urinary antigens for pneumococcus and Legionella pending at the time of discharge. She was discharged home with 4 days of cefuroxime and doxycycline. COPD exacerbation - Treated with methylprednisolone and nebulized bronchodilators. Discharged on slow prednisone taper (40 mg/d, decreased by 10 mg q4d then resuming home dose of 5 mg/d for SLE/RA/MCTD). Smoking cessation counseled and prescribed nicotine patches. acute hypoxic respiratory failure - Qualifies for 2L O2 with ambulation and has the equipment at home. hypoK - repleted Time Spent with Patient Time attestation: Total time managing care of this patient today __35__ minutes. Discharge coordination time: Greater than 30 minutes Quality: Safe Use of Opioids Does Pt have an Active Cancer Diagnosis on the Problem List?: No Quality: Stroke Does the patient have a stroke diagnosis?: No Physical Exam Vital Signs: Vital Signs: Last Vital Signs Temp 97.2 F 08/04/23 08:00 Pulse 91 08/04/23 08:00 Resp 16 08/04/23 08:00 BP 107/63 08/04/23 08:00 Pulse Ox 92 08/04/23 08:00 O2 Del Method Room Air 08/04/23 08:00 BMI result Body Mass Index 25.4 Gen: in no acute distress HEENT: sclera anicteric, moist mucus membranes Neck: supple Lungs: a few scattered rhonchi, good air entr Heart: regular rate and rhythm, no murmurs Abd: soft, non-tender, non-distended Ext: no edema Skin: warm/well-perfused Neuro: alert and oriented x3, no focal findings Psych: appropriate affect DS: Data Data Completed and Pending Completed studies during hospitalization [Text1]: Laboratory Results WBC 17.5 X10*3/uL (4.8-10.8) H 08/02/23 07:03 RBC 4.55 X10*6/uL (4.20-5.50) 08/02/23 07:03 Hgb 11.7 g/dl (12.0-16.0) L 08/02/23 07:03 Hct 37.8 % (37.0-47.0) 08/02/23 07:03 MCV 83.1 fL (80.0-98.0) 08/02/23 07:03 MCH 25.7 pg (27.0-33.0) L 08/02/23 07:03 MCHC 31.0 g/dl (31.0-35.0) 08/02/23 07:03 RDW 13.6 % (11.0-16.0) 08/02/23 07:03 Plt Count 279 X10*3/uL (160-400) 08/02/23 07:03 MPV 8.3 fL (9.4-12.3) L 08/02/23 07:03 Immature Gran % (Auto) 2.1 % (0.0-0.4) H 07/31/23 23:46 Neut % (Auto) 76.8 % (45-73) H 07/31/23 23:46 Lymph % (Auto) 11.9 % (20-40) L 07/31/23 23:46 Edwards % (Auto) 7.1 % (2-11) 07/31/23 23:46 Eos % (Auto) 1.6 % (0-4) 07/31/23 23:46 Baso % (Auto) 0.5 % (0-2) 07/31/23 23:46 Lymph # (Auto) 3.1 X10*3/uL (1.2-4.9) 07/31/23 23:46 Edwards # (Auto) 1.9 X10*3/uL (0.1-1.2) H 07/31/23 23:46 Eos # (Auto) 0.4 X10*3/uL (0.0-0.4) 07/31/23 23:46 Baso # (Auto) 0.1 X10*3/uL (0.0-0.2) 07/31/23 23:46 Abs Immat Gran (auto) 0.54 X10*3/uL (0.00-0.03) H 07/31/23 23:46 Absolute Neuts (auto) 20.0 x10*3/uL (2.0-8.3) H 07/31/23 23:46 Absolute Nucleated RBC 0.000 X10*3/uL (0.0-0.012) 08/02/23 07:03 Nucleated RBC % (auto) 0.0 /100WBC (0.0-0.2) 08/02/23 07:03 Smear Tech's Comments VERIFIED 07/31/23 23:46 Sodium 139 mmol/L (135-145) 08/02/23 07:03 Potassium 3.6 mmol/L (3.3-5.1) 08/02/23 07:03 Chloride 108 mmol/L (96-108) 08/02/23 07:03 Carbon Dioxide 25 mmol/L (22-29) 08/02/23 07:03 Anion Gap 10 (12-20) L 08/02/23 07:03 BUN 14 mg/dL (9-16) 08/02/23 07:03 Creatinine 0.69 mg/dL (0.5-1.4) 08/02/23 07:03 Estim Creat Clear Calc 85.3 08/02/23 07:03 Estimated GFR > 60 08/02/23 07:03 Random Glucose 77 mg/dL (60-115) 08/02/23 07:03 Lactic Acid 0.9 mmol/L (0.5-2.0) 08/01/23 01:14 Calcium 7.6 mg/dL (8.4-10.2) L 08/02/23 07:03 Total Bilirubin 0.1 mg/dL (0.0-1.0) 08/01/23 05:39 AST 17 U/L (5-31) 08/01/23 05:39 ALT 10 U/L (0-31) 08/01/23 05:39 Alkaline Phosphatase 134 U/L (39-117) H 08/01/23 05:39 Total Protein 3.8 g/dL (6.5-8.0) L 08/01/23 05:39 Albumin 1.8 g/dL (3.5-5.0) L 08/01/23 05:39 Procalcitonin 0.06 ng/mL 08/01/23 05:39 Urine Color Dark Yellow 08/01/23 10:48 Urine Appearance Clear 08/01/23 10:48 Urine pH 6.0 (5.0-9.0) 08/01/23 10:48 Ur Specific [place] 1.020 (1.005-1.025) 08/01/23 10:48 Urine Protein Trace mg/dL (Neg-Trace) 08/01/23 10:48 Urine Glucose (UA) Negative mg/dL (Negative) 08/01/23 10:48 Urine Ketones Negative mg/dL (Negative) 08/01/23 10:48 Urine Blood Negative (Negative) 08/01/23 10:48 Urine Nitrite Negative (Negative) 08/01/23 10:48 Ur Leukocyte Esterase Moderate (2+) (Negative) H 08/01/23 10:48 Urine RBC 0-2 /HPF (0-2) 08/01/23 10:48 Urine WBC 6-10 /HPF (0-5) H 08/01/23 10:48 Ur Squamous Epith Cells 6-10 /HPF (0-2) 08/01/23 10:48 Urine Bacteria 1+ (None Seen) 08/01/23 10:48 Hyaline Casts 0-2 /LPF (0-2) 08/01/23 10:48 Nasal Screen MRSA (PCR) NEGATIVE (Negative) 08/01/23 08:17 Nasal S. aureus Screen POSITIVE (Negative) A 08/01/23 08:17 Nasal MRSA/S.aureus Interp SEE NOTE 08/01/23 08:17 Influenza Type A (PCR) NEGATIVE (Negative) 08/01/23 01:25 Influenza Type B (PCR) NEGATIVE (Negative) 08/01/23 01:25 RSV RNA Qual (PCR) NEGATIVE (Negative) 08/01/23 01:25 SARS-CoV-2 RNA (RT-PCR) NEGATIVE (Negative) 08/01/23 01:25 Impressions Chest X-Ray 08/01/23 00:02 IMPRESSION: Chronic changes of post Covid scarring/fibrosis. Of note, the airspace opacities in both lungs appear slightly more pronounced as compared to the prior study, particularly in the right upper lobe and left midlung, potentially corresponding to new superimposed airspace disease Labs on day of discharge: Preliminary micro results at discharge 08/01/23 01:14 Blood Culture - Preliminary Blood - Venous No growth after 48 hours. 08/01/23 01:14 Blood Culture - Preliminary Blood - Venous No growth after 48 hours. Discharge Plan Discharge Anticipated Discharge Date/Time: 08/04/23 09:44 Patient Disposition: Home, Self-Care Discharge Diagnosis: pneumonia, COPD exacerbation, hypoxia Referrals: Barbie Dunn MD [Primary Care Provider] - 1 Week Discharge Medications: New cefuroxime axetil 500 mg tablet 500 mg PO BID Qty: 8 0RF doxycycline monohydrate 100 mg tablet 100 mg PO BID Qty: 8 0RF prednisone 10 mg tablet See Rx Instructions .ROUTE .COMPLEX Qty: 40 0RF Rx Instructions: 40 mg once daily x 4 days, then 30 mg once daily x 4 days, then 20 mg once daily x 4 days, then 10 mg once daily x 4 days, then return to 5 mg once daily nicotine 21 mg/24 hr patch 24 hour 1 patch transdermal Q24H Qty: 28 0RF Continued hydroxychloroquine 200 mg tablet 300 mg PO BID Qty: 45 2RF albuterol sulfate 2.5 mg /3 mL (0.083 %) solution for nebulization 2.5 mg inhalation Q6H PRN (Reason: Shortness Of Breath Or Wheezing) bupropion HCl 100 mg tablet sustained-release 12 hr 100 mg PO BID albuterol sulfate 90 mcg/actuation HFA aerosol inhaler 2 puff inhalation Q4H PRN (Reason: Shortness Of Breath Or Wheezing) loratadine 10 mg Tablet 10 mg PO DAILY PRN (Reason: allergies) fluoxetine 20 mg capsule 2 cap PO DAILY nicotine 21 mg/24 hr Patch 24 Hour 21 mg transdermal DAILY Qty: 28 0RF famotidine 20 mg tablet 1 tab PO DAILY fzckatcmrd-hoglfamocfrty-mtfr 50-325-40 mg tablet 2 tab PO DAILY PRN (Reason: headache) ferrous sulfate [FeroSul] 325 mg (65 mg iron) tablet 1 tab PO DAILY Spiriva Respimat 2.5 mcg/actuation mist 2 puff INHALATION DAILY multivitamin [One Daily Multivitamin] Tablet 1 tab PO DAILY levothyroxine 175 mcg tablet 175 mcg PO DAILY folic acid 1 mg tablet 1 mg PO DAILY Eliquis 5 mg tablet 5 mg PO BID fluticasone propionate [Flovent HFA] 220 mcg/actuation HFA aerosol inhaler 1 inh INHALATION BID lorazepam 1 mg tablet 1 mg PO BID PRN (Reason: anxiety) Qty: 10 0RF nortriptyline 75 mg capsule 75 mg PO BEDTIME pravastatin 40 mg tablet 40 mg PO BEDTIME (DME) nebulizer and compressor [Vios Aerosol Delivery System] Device See Rx Instructions .ROUTE DIRECTED Qty: 1 Rx Instructions: As directed Discontinued prednisone 5 mg tablet 5 mg PO DAILY Discharge Orders: Discharge Order (Routine); Ordered 08/04/23 Ordered By: Ashley Mark Diet: Advance to usual diet Activity on Discharge: As tolerated Stand Alone Forms: Patient Portal Discharge page Care Plan Goals: recovery from pneumonia and COPD Health Concerns: pneumonia, COPD exacerbation, hypoxia Plan of Treatment: cefuroxime 500 mg twice daily for 4 days doxycycline 100 mg twice daily for 4 days prednisone 40 mg once daily for 4 days, then 30 mg once daily for 4 days, then 20 mg once daily for 4 days, then 10 mg once daily for 4 days, then return to 5 mg once daily quit smoking; use nicotine patch to quit oxygen 2 liters with ambulation Please follow up with your primary care doctor within 1 week. Return to the hospital if you experience recurrent or worsening symptoms. Assessment: See Discharge Summary.
--- NOTE | 2023-08-04 11:01 | MHC.CM.PN ---
Patient has been medically cleared for dc to home today, self care. IMM addressed with Patient at bedside and original was given to her and a copy was placed on the chart. Patient's [employer] will transport Patient to home.
[2023-08-07 03:08] LABS: Strep Pneumo Ag urine Not Detected (Not Detected)
[2023-08-08 07:29] LABS: Legionella Ag Urine Not Detected (Not Detected)
== END 2023-08-04 14:19 | disposition home or self-care (01) | DRG 190 ==
LOC: HO.ED 08-01 01:32 → HO.EDOVER 08-01 02:49 → HO.IMC 08-01 09:15
PROVIDERS: Admitting Provider Student in an Organized Health Care Education/Training Program; Emergency Provider Emergency Medicine; PCP Family Medicine; Visit Provider Family Medicine
DX: J44.0 Chronic obstructive pulmonary disease with (acute) lower respiratory infection (principal); J18.9 Pneumonia, unspecified organism; J44.1 Chronic obstructive pulmonary disease with (acute) exacerbation; M32.9 Systemic lupus erythematosus, unspecified; D72.829 Elevated white blood cell count, unspecified; I73.9 Peripheral vascular disease, unspecified; M06.9 Rheumatoid arthritis, unspecified; E87.6 Hypokalemia; F17.210 Nicotine dependence, cigarettes, uncomplicated; Z20.822 Contact with and (suspected) exposure to COVID-19; Z71.6 Tobacco abuse counseling; Z86.73 Personal history of transient ischemic attack (TIA), and cerebral infarction without residual deficits; Z79.01 Long term (current) use of anticoagulants; Z79.52 Long term (current) use of systemic steroids; Z79.890 Hormone replacement therapy; Z79.899 Other long term (current) drug therapy
CPT/HCPCS: 0241U; 36415; 71046; 80048; 80053; 81001; 83605; 84145; 85025; 85027; 87040; 87086; 87449; 87640; 87641; 87899; 94640; 94664; 99285; J0696; J2405; J2920; J2930

== ENCOUNTER → 2023-08-01 02:44 | Outpatient (BNV) | payer MEDICARE, MEDICAID, SELFPAY | PROVIDERS: Admitting Provider Student in an Organized Health Care Education/Training Program; Emergency Provider Emergency Medicine; PCP Family Medicine; Visit Provider Student in an Organized Health Care Education/Training Program | DX: A41.9 Sepsis, unspecified organism (principal); J44.1 Chronic obstructive pulmonary disease with (acute) exacerbation; J96.01 Acute respiratory failure with hypoxia; J18.9 Pneumonia, unspecified organism; Z72.0 Tobacco use | CPT/HCPCS: 99222; 99232; 99239; 99499 ==

== ENCOUNTER 2023-08-06 15:13 | Outpatient (AMB) | payer MEDICARE, MEDICAID, SELFPAY ==
--- NOTE | 2023-08-06 15:22 | A.OFFVIS_ITS ---
Intake Intake Visit Reasons: follow up Arterial US 07/16/23 (overdue) Intake Note: follow up Arterial US 07/16/2023 s/p Right Leg Angiogram 03/29/2021 Accompanied by: ASSOCIATE PATHOLOGIST Allergies clarithromycin [CLARITHROMYCIN] Allergy (Intermediate, Verified 08/06/23 15:26) FACIAL SWELLING/REDNESS, facial rash, facial rash, facial rash, facial rash HPI follow up Arterial US 07/16/23 (overdue) HPI Details Very pleasant 48-year-old female presents for follow-up regarding peripheral vascular disease. She has severe rheumatoid arthritis in addition to more Charcot foot. She has been on chronic steroids. In addition she is being maintained on Eliquis. She has had noninvasive arterial testing. She also has had podiatric intervention regarding her so Charcot foot in the past. She is now for follow-up. [facility] Medical History (Updated 08/07/23 @ 11:44 by Telly Rubio MD) Sepsis with acute hypoxic respiratory failure without septic shock Encounter for testing for latent tuberculosis infection Falling Charcot's joint of foot Cellulitis Redness and swelling of lower leg COPD (chronic obstructive pulmonary disease) Respiratory failure with hypoxia Pneumonia due to COVID-19 virus C. difficile colitis Secondary bacterial pneumonia Immunosuppression due to chronic steroid use Mixed connective tissue disease Cellulitis of right leg PAD (peripheral artery disease) Varicose veins of right lower extremity with inflammation Rheumatoid arthritis Cellulitis CVA (cerebral vascular accident) Proteinuria Fibromyalgia Hypothyroid Lupus Surgical History History of breast lump/mass excision History of excision of mass History of partial hysterectomy History of cholecystectomy History of bunionectomy Family History Father No problems noted. Mother Lung cancer Rheumatoid arthritis Social History Household Members: Children Household Members Other:: 3 Housing: House Do you presently have visiting nurse or other home services: Yes (ASSOCIATE PATHOLOGIST) Alcohol intake: current Alcohol intake frequency: holidays/special occasions only Patient Tobacco Use Status: Current everyday Tobacco user Tobacco use type: Cigarette Cigarette Packs Per Day: 0.5 Cigarettes Per Day: 10.0 Years Smoked: 30 Second Hand Smoke Exposure: No Substance Use Type: Marijuana Advance Directives Date on File: 11/26/21 service: No Current occupational status: unemployed and disabled Current occupation: right hand dominant Review of Systems Const All systems reviewed & are unremarkable except as noted in HPI and below Reports no additional complaints ENT Reports Normal hearing present Card Denies chest pain, Denies chest pain at rest, Denies chest pain with activity and Denies pedal edema Resp Denies cough GI Denies abdominal pain Musc Denies abnormal gait, Denies muscle cramps and Denies radiating pain into limb Skin/Breast Denies skin ulcer and Denies wounds Neuro Reports Normal hearing present and Denies abnormal gait Psych Reports no additional complaints Physical Exam Const General: cooperative, healthy appearing and comfortable Orientation/consciousness: oriented to person, oriented to place and oriented to time HEENT Head: Yes normal to inspection Neck Neck: Yes normal visual inspection Carotids: no bruits Chest Chest palpation & inspection: normal inspection of the chest Resp Effort & Inspection: normal respiratory effort and able to speak in complete sentences Auscultation: clear to auscultation bilaterally, no crackles, no rales, no rhonchi and no wheezes Cardio Rate: regular rate Rhythm: regular rhythm Heart sounds: S1 normal heart sound present and S2 normal heart sound present Bruits: no carotid bruits Peripheral pulses: Peripheral pulses 2+ throughout GI Inspection: Yes normal to inspection Skin Wounds: no wounds Hair: normal Neuro General: oriented to person, oriented to place and oriented to time Cranial nerves: Yes CN's II-XII intact bilaterally and Yes Normal hearing present Cognition (Neuro): normal cognition Motor exam (neuro): 5/5 motor strength present throughout Extrem Other: venous exam: +2 edema bilateral lower extremities IV is Charcot deformity General: No clubbing, No cyanosis and Yes edema Psych Appearance: grossly normal Mental Status: mental status grossly normal Speech and movement: Normal speech and movement present Results Reviewed Results Reviewed: Arterial testing dated 07/16/2023 demonstrates NEGIN on the right of 1.23 and on the left of 1.13. Written report and images were reviewed. Assessment & Plan Assessment & Plan (1) PAD (peripheral artery disease): Code(s): I73.9 - Peripheral vascular disease, unspecified Plan: In short patient has stable claudication. In addition she is stable for any orthopedic intervention required I did review the pathophysiology of peripheral vascular disease with the patient. In addition we did discuss routine conservative measures including a healthy diet and the importance of exercise and ambulation. We did discuss risk factor modification. The patient will continue to to follow-up with surveillance follow-up in approximately 1 year. Thank you for allowing us to participate in this patient's care. If there are any questions or concerns please do not hesitate to contact us. Orders: Orders US arterial duplex LE BI 364 Days I73.9 - Peripheral vascular disease, unspecified Coding Level of Care Code Est Pt Level 4 (06720) Diagnoses PAD (peripheral artery disease) I73.9
== END 2023-08-06 15:45 | disposition home or self-care (01) ==
PROVIDERS: PCP Family Medicine; Visit Provider Surgery Vascular Surgery
DX: I73.9 Peripheral vascular disease, unspecified (principal)
CPT/HCPCS: 99213

== ENCOUNTER → 2023-08-06 15:13 | Outpatient (BNVA) | payer MEDICARE, MEDICAID, SELFPAY | PROVIDERS: PCP Family Medicine; Visit Provider Surgery Vascular Surgery | DX: I73.9 Peripheral vascular disease, unspecified (principal); Z79.52 Long term (current) use of systemic steroids | CPT/HCPCS: 99212 ==

== ENCOUNTER 2023-09-10 15:47 | Outpatient (AMB) | payer MEDICARE, MEDICAID, SELFPAY ==
[2023-09-10 15:49] VITALS: BP 102/64; PULSE 102; TEMP 36.6; O2SAT 93; BMI 24.9
--- NOTE | 2023-09-10 15:49 | MHC.OFFVIS ---
Intake Vital Signs 09/10/23 15:49 Height 5 ft 1 in Weight 131 lb 13.383 oz BMI 24.9 BP 102/64 Blood Pressure Location Rt brachial Position Sitting Pulse 102 H Pulse Source Pulse Oximeter Temp 97.8 F Temp Source Skin Pulse Oximetry (%) 93 Intake Visit Reasons: SLE Intake Note: Patient Last seen 07/16/23 presents today to follow up on SLE. Continues on Plaquenil, sulfasalazine and prednisone. Advised to follow with ortho for knee pain. Follows with [facility] reports cortisone injection right knee. 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: No Accompanied by: DC Faizul Allergies clarithromycin [CLARITHROMYCIN] Allergy (Intermediate, Verified 09/10/23 15:54) FACIAL SWELLING/REDNESS, facial rash, facial rash, facial rash, facial rash Medication List - Last Reconciled 09/10/23 by Sylvia Mora MD albuterol sulfate 2.5 mg inhalation Q6H PRN albuterol sulfate 90 mcg/actuation 2 puffs inhalation Q4H PRN apixaban (Eliquis) 5 mg PO BID bupropion HCl 100 mg PO BID apddtojuea-ztywzbrdsszia-zjoj 50-325-40 mg 2 tabs PO DAILY PRN cefuroxime axetil 500 mg PO BID doxycycline monohydrate 100 mg PO BID famotidine 1 tab PO DAILY ferrous sulfate (FeroSul) 1 tab PO DAILY fluoxetine 2 caps PO DAILY fluticasone propionate 220 mcg/actuation (Flovent HFA) 1 inh inhalation BID folic acid 1 mg PO DAILY hydroxychloroquine 300 mg (1.5 x 200 mg) PO BID levothyroxine 175 mcg PO DAILY loratadine 10 mg PO DAILY PRN lorazepam 1 mg PO BID PRN multivitamin (One Daily Multivitamin tablet) 1 tab PO DAILY nebulizer and compressor ([employer] Aerosol Delivery System) As directed nicotine 21 mg transdermal DAILY nicotine 1 patch transdermal Q24H nortriptyline 75 mg PO BEDTIME pravastatin 40 mg PO BEDTIME prednisone 40 mg once daily x 4 days, then 30 mg once daily x 4 days, then 20 mg once daily x 4 days, then 10 mg once daily x 4 days, then return to 5 mg once daily sulfasalazine PO tiotropium bromide 2.5 mcg/actuation (Spiriva Respimat) 2 puffs inhalation DAILY HPI HPI Comments History of Present Illness Details 48-year-old female with SLE/RA overlap presents for follow-up. Last month patient was admitted to the hospital and was found to have pneumonia. She was treated with antibiotics and prednisone taper and discharged. States that she did better with antibiotics. Over the last week she has noticed that she gets low-grade fever 100 F. Also feels that she is having mild upper respiratory infections. She has been complaining of chronic back pain. She has significant right knee arthritis. She was evaluated by Orthopedics and received an injection a month ago and was told that she will need to follow-up with a reconstructive knee surgeon. She is yet to see them. Today she is complaining of right knee pain, right ankle pain, back pain Initial history: This is a 47-year-old female with a past medical history of SLE who presents as a new patient. 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 Patient had a stillbirth around 2000. Around that time She was diagnosed with immune complex mediated glomerulonephritis. This was initially attributed to thyroid disease. Over the next 2-3 years she was diagnosed with SLE. She also had multiple strokes around 1999 for which were treated with Coumadin. Patient is currently on Eliquis however. 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 Over the years patient has been on multiple medications including prednisone, hydroxychloroquine, methotrexate. She was on methotrexate for some time but she developed recurrent cellulitis and methotrexate was discontinued. She was started on sulfasalazine 1 tab twice daily by Dr. Flores over the last 2 years. Continues to take hydroxychloroquine Back in February of 2023 patient had surgery for right foot Charcot's. Postop she had pneumonia and was on antibiotics. This was the last time she had been on antibiotics per patient. Today patient's main complaint is right knee pain and swelling. She has an appointment with Orthopedics soon [facility] Medical History Sepsis with acute hypoxic respiratory failure without septic shock Encounter for testing for latent tuberculosis infection Falling Charcot's joint of foot Cellulitis Redness and swelling of lower leg COPD (chronic obstructive pulmonary disease) Respiratory failure with hypoxia Pneumonia due to COVID-19 virus C. difficile colitis Secondary bacterial pneumonia Immunosuppression due to chronic steroid use Mixed connective tissue disease Cellulitis of right leg PAD (peripheral artery disease) Varicose veins of right lower extremity with inflammation Rheumatoid arthritis Cellulitis CVA (cerebral vascular accident) Proteinuria Fibromyalgia Hypothyroid Lupus Surgical History History of breast lump/mass excision History of excision of mass History of partial hysterectomy History of cholecystectomy History of bunionectomy Family History Father No problems noted. Mother Lung cancer Rheumatoid arthritis Social History Household Members: Children Household Members Other:: 3 Housing: House Do you presently have visiting nurse or other home services: Yes ([employer]) Alcohol intake: current Alcohol intake frequency: holidays/special occasions only Patient Tobacco Use Status: Current everyday Tobacco user Tobacco use type: Cigarette Cigarette Packs Per Day: 0.5 Cigarettes Per Day: 10.0 Years Smoked: 30 Second Hand Smoke Exposure: No Substance Use Type: Marijuana Advance Directives Date on File: 11/26/21 service: No Current occupational status: unemployed and disabled Current occupation: right hand dominant Review of Systems Const Reports fatigue, Reports fever(s) and Reports weakness Musc Reports back pain, Reports arthralgias, Reports joint swelling, Reports limited range of motion and Reports stiffness Neuro Reports weakness Endo Reports fatigue Physical Exam Vital Signs: Last Vital Signs Temp 97.8 F 09/10/23 15:49 Pulse 102 H 09/10/23 15:49 BP 102/64 09/10/23 15:49 Pulse Ox 93 09/10/23 15:49 BMI result Body Mass Index 24.9 Const General: cooperative, healthy appearing and comfortable Nutritional Appearance: malnourished Orientation/consciousness: patient oriented x3 HEENT Head: Yes normocephalic and Yes atraumatic Mouth: moist mucous membranes Resp Effort & Inspection: normal respiratory effort and able to speak in complete sentences Cardio Rate: regular rate Skin Other: Mild hypopigmentation around her nose and cheek area Neuro General: patient oriented x3 Extrem Other: Reddish discoloration of fingers that blanches with pressure Fingers are warm today. Normal nailfold capillaroscopy Chronic deformities of both feet Right knee deformity, warmth, swelling and tenderness Right ankle warmth No active synovitis of both hands or wrists Results Reviewed Results Reviewed: labs 01/2021? DsDNA elevated? UpCr: 0.292 ESR 80 CRP 61.6 Labs 2015 Beta 2 glycoprotein IgM >159 (<20) Beta 2 glycoprotein IgA 37 (<20) Beta 2 glycoprotein IgG -ve Cardiolipin IgM 115 (<12) Cardiolipin IgG -ve pr3 3.3 (<1.0) Assessment & Plan Assessment & Plan (1) Lupus: Comment: dx around 2003 (immune complex mediated Gomerulonephritis, membranous glomerulonephritis, inflammatory arthritis, +APLA syndrome, ++DSdna, low C3, low C4, +++ ACL IgM, +++ B2GP IgM) HCQ + prednisone throughout MTX DC due to recurrent cellulitis Sulfasalazine started around 2021 Code(s): M32.9 - Systemic lupus erythematosus, unspecified Plan: This is a 48-year-old female with SLE who presents as a new patient. Patient has long history of SLE manifested by inflammatory arthritis, positive dsDNA, antiphospholipid antibody syndrome, immune complex mediated glomerulonephritis, membranous glomerulonephritis) Patient has had multiple infectious comorbidities. She has history of leg wounds. Currently the wounds are healed. Last month she was admitted with pneumonia and treated with antibiotics. She continues to have active synovitis and elevated dsDNA and high inflammatory markers. Continues to have active SLE however I cannot use strong immune suppression given her history of recurrent infections Increase sulfasalazine to 1000 mg in the morning and 1 tab nightly for 1 week then 1000 mg Twice daily Continue hydroxychloroquine 300 mg daily Continue prednisone 5 mg daily Labs before next visit in 2 months (2) correction systemic steroid user: Code(s): Z79.52 - correction (current) use of systemic steroids Plan: Will check a bone density scan (3) Chronic back pain: Code(s): M54.9 - Dorsalgia, unspecified; G89.29 - Other chronic pain Qualifiers: Back pain location: thoracic back pain Back pain laterality: midline Qualified Code(s): M54.6 - Pain in thoracic spine; G89.29 - Other chronic pain Plan: Check x-rays Plan I spent 35 minutes reviewing patient's chart, evaluating patient, ordering diagnostic workup, counseling patient and documenting in the chart Orders: Orders Anti DNA DS Antibody 2 Months M32.9 - Systemic lupus erythematosus, unspecified C Reactive Protein 2 Months M32.9 - Systemic lupus erythematosus, unspecified Comprehensive Met. Panel 2 Months M32.9 - Systemic lupus erythematosus, unspecified Complement C3 2 Months M32.9 - Systemic lupus erythematosus, unspecified Complement C4 2 Months M32.9 - Systemic lupus erythematosus, unspecified Erythrocyte Sedimentation Rate 2 Months M32.9 - Systemic lupus erythematosus, unspecified Protein Creatinine Ratio, Ur 2 Months M32.9 - Systemic lupus erythematosus, unspecified UA w Microscopic 2 Months M32.9 - Systemic lupus erythematosus, unspecified Complete Blood Count Auto Diff 2 Months M32.9 - Systemic lupus erythematosus, unspecified XR lumbar spine 4V min Today G89.29 - Other chronic pain, M54.9 - Dorsalgia, unspecified XR thoracic spine 3V Today G89.29 - Other chronic pain, M54.9 - Dorsalgia, unspecified XR cervical spine 4V Today G89.29 - Other chronic pain, M54.9 - Dorsalgia, unspecified Medications: Changed From sulfasalazine PO To sulfasalazine 1 g (2 x 500 mg) PO BID 240 tabs 1RF NS Discontinued cefuroxime axetil Discontinued Reason: Patient Completed Course 500 mg PO BID 8 tabs 0RF doxycycline monohydrate Discontinued Reason: Doctor's Order 100 mg PO BID 8 tabs 0RF Coding Level of Care Code Est Pt Level 4 (51778) Diagnoses Lupus M32.9 correction systemic steroid user Z79.52 Chronic midline thoracic back pain M54.6; G89.29 Back pain location: thoracic back pain Back pain laterality: midline
== END 2023-09-10 16:38 | disposition home or self-care (01) ==
PROVIDERS: PCP Family Medicine; Visit Provider Student in an Organized Health Care Education/Training Program
DX: M32.9 Systemic lupus erythematosus, unspecified (principal); Z79.52 Long term (current) use of systemic steroids; M54.6 Pain in thoracic spine; G89.29 Other chronic pain
CPT/HCPCS: 99214

== ENCOUNTER → 2023-09-10 15:47 | Outpatient (BNVA) | payer MEDICARE, MEDICAID, SELFPAY | PROVIDERS: PCP Family Medicine; Visit Provider Student in an Organized Health Care Education/Training Program | DX: M32.9 Systemic lupus erythematosus, unspecified (principal); M54.9 Dorsalgia, unspecified; G89.29 Other chronic pain; Z79.52 Long term (current) use of systemic steroids; Z79.01 Long term (current) use of anticoagulants; Z79.899 Other long term (current) drug therapy | CPT/HCPCS: 99212 ==

== ENCOUNTER 2023-10-26 09:50 | Inpatient (IN) | payer MEDICAID, SELFPAY ==
--- NOTE | ~2023-10-26 | XR_ITS ---
EXAMINATION: XR FOOT, LEFT CLINICAL INFORMATION: Ulcer left fourth toe. Rule out osseous abnormality. COMPARISON: Left foot 12/02/2019. TECHNIQUE: AP, lateral, and oblique views of the left foot. FINDINGS: Diffuse demineralization. Progressive lateral angulation at the first-fifth MTP joints. There is erosion of the distal aspect of the fourth proximal phalanx. Screw fixation distal first metatarsal. Degenerative changes in the mid foot and first MTP joint. XR/XR foot LT 2V IMPRESSION: Erosion distal aspect fourth proximal phalanx may reflect osteomyelitis. This is new compared to 12/02/2019. Progressive chronic changes as above.
--- NOTE | ~2023-10-26 | XR_ITS ---
EXAMINATION: XR CHEST CLINICAL INFORMATION: Asthma. Wheezing all lobes. COMPARISON: Chest x-ray 08/01/2023. TECHNIQUE: Frontal view of the chest was obtained. FINDINGS: Cardiac mediastinal silhouette is stable. No vascular congestion or edema. Chronic airway wall thickening. Chronic interstitial and airspace opacities appear stable. Opacities at the right lung base are increased compared to prior chest x-ray. No effusion or pneumothorax. Cholecystectomy clips. XR/XR chest 1V IMPRESSION: Chronic airways disease. Chronic interstitial and airspace opacities. Increased airspace opacities in the right lower lobe compatible with acute pneumonia. Recommend follow-up chest x-ray in 8 weeks after treatment/resolution of symptoms to ensure resolution.
--- NOTE | ~2023-10-26 | MR_ITS ---
EXAMINATION: MR FOOT WITHOUT AND WITH CONTRAST, LEFT CLINICAL INFORMATION: Left 4th toe ulcer. Evaluate for osteomyelitis. COMPARISON: Radiographs 10/26/2023. TECHNIQUE: MRI without and with intravenous administration of 6 mL of Gadavist is performed on the left foot. FINDINGS: As demonstrated on the radiograph, there is a fracture at the distal aspect of the 4th proximal phalanx with lateral angulation and subluxation of the PIP joint. Marrow edema extends throughout the proximal phalanx, with the distal portion appearing eroded/remodeled. Surrounding soft tissue edema and enhancement. Given the reported ulcer in this location, this is compatible with osteomyelitis of the proximal phalanx. There is also mild marrow edema involving the proximal and middle phalanges of the 3rd toe. Only minimal decreased T1 signal suggesting this may be reactive although early or mild osteomyelitis of these phalanges cannot be excluded. Chronic fracture deformity of the 5th proximal phalanx. Marked hallux valgus with screw within the 1st metatarsal head. Marked valgus/lateral angulation of the 2nd and 3rd MTP joints. Diffuse fatty atrophy of the intrinsic muscles of the foot and severe arthrosis of the 2nd-5th TMT joints as well as the junction of the navicular and medial cuneiform dorsally. MR/MR foot LT wo/w con IMPRESSION: 1. Findings are compatible with osteomyelitis of the 4th proximal phalanx. 2. Mild marrow edema of the 3rd proximal and middle phalanges is nonspecific and may be reactive. Early or mild osteomyelitis of these phalanges cannot be excluded. 3. Chronic fracture deformity of the 5th proximal phalanx. 4. Severe degenerative changes as described.
--- NOTE | ~2023-10-26 | US_ITS ---
EXAMINATION: US VENOUS ULTRASOUND WITH DOPPLER LOWER EXTREMITY, LEFT CLINICAL INFORMATION: Pain, swelling and warmth COMPARISON: Previous exam December 2020 TECHNIQUE: Ultrasound of the deep veins is performed from the hip to the calf with compression sonography and color and pulse Doppler assessment. Spectral analysis with color-flow imaging is performed. FINDINGS: There is normal venous compression and respiratory variation and augmented flow. The visualized common femoral vein, superficial femoral vein, profunda femoral vein, and popliteal vein shows no evidence of deep venous thrombosis. Calf veins not well visualized due to edema. There is no significant popliteal fossa cyst. US/US venous duplex LE LT IMPRESSION: No DVT demonstrated in the left lower extremity. Calf veins not well visualized.
--- NOTE | ~2023-10-26 | US_ITS ---
EXAMINATION: ARTERIAL DUPLEX BILATERAL LEGS CLINICAL INFORMATION: Ulcer left fourth toe. COMPARISON: 07/16/2023. TECHNIQUE: Duplex Doppler of the left lower extremity arterial system was performed. FINDINGS: LEFT: Common femoral: PSV 129 cm/s. High flow monophasic waveform. Deep femoral: PSV 90 cm/s. Triphasic waveform. Proximal superficial femoral: PSV 140 cm/s. Triphasic waveform. Mid superficial femoral: PSV 157 cm/s. Triphasic waveform. Distal superficial femoral: PSV 140 cm/s. Triphasic waveform. Popliteal: PSV 102 cm/s. Triphasic waveform. Posterior tibial: PSV 88 cm/s. Triphasic waveform. Peroneal: PSV 74 cm/s. Triphasic waveform. Anterior tibial artery: Occluded. Dorsalis pedis: PSV 119 cm/s. Triphasic waveform. US/US arterial duplex LE LT IMPRESSION: No evidence of hemodynamically significant femoropopliteal disease. Occluded anterior tibial artery with distal reconstitution of the dorsalis pedis. Patent posterior tibial and peroneal arteries with normal triphasic waveforms.
[2023-10-26 10:09] VITALS: BP 139/72; PULSE 90; RESP 18; TEMP 36.3; O2SAT 98; BMI 24.6
--- NOTE | 2023-10-26 10:24 | ECG_ITS ---
Test Reason : hx pneumonia, cough Blood Pressure : / mmHG Vent. Rate : 088 BPM Atrial Rate : 088 BPM P-R Int : 144 ms QRS Dur : 096 ms QT Int : 380 ms P-R-T Axes : 050 -62 057 degrees QTc Int : 459 ms Normal sinus rhythm Left anterior fascicular block Abnormal ECG When compared with ECG of 27-DEC-2022 07:14, QT has shortened Referred By: Generic ED Physician Electronically Signed By:HERMES LOCKWOOD
[2023-10-26 10:53] LABS: MANUAL DIFF FLAG NO
[2023-10-26 11:05] LABS: Basophils Absolute Auto 0.1 X10*3/uL (0.0-0.2); Basophils Percent Auto 0.7 % (0-2); Eosinophils Absolute Auto 0.4 X10*3/uL (0.0-0.4); Eosinophils Percent Auto 5.2 % (0-4); Hematocrit 36.2 % (37.0-47.0); Hemoglobin 11.2 g/dl (12.0-16.0); Imm Gran Abs Auto 0.03 X10*3/uL (0.00-0.03); Imm Gran Pct Auto 0.4 % (0.0-0.4); Lymphocytes Absolute Auto 1.3 X10*3/uL (1.2-4.9); Lymphocytes Percent Auto 15.7 % (20-40); Mean Corpuscular HGB Conc 30.9 g/dl (31.0-35.0); Mean Corpuscular Hemoglobin 25.6 pg (27.0-33.0); Mean Corpuscular Volume 82.6 fL (80.0-98.0); Mean Platelet Volume 9.5 fL (9.4-12.3); Monocytes Absolute Auto 0.9 X10*3/uL (0.1-1.2); Monocytes Percent Auto 10.4 % (2-11); Neutrophils Absolute Auto 5.7 x10*3/uL (2.0-8.3); Neutrophils Percent Auto 67.6 % (45-73); Platelet Count 266 X10*3/uL (160-400); Red Blood Count 4.38 X10*6/uL (4.20-5.50); Red Cell Distribution Width 13.5 % (11.0-16.0); White Blood Count 8.5 X10*3/uL (4.8-10.8)
[2023-10-26 11:11] LABS: Alanine Aminotransferase 13 U/L (0-31); Albumin Level 2.8 g/dL (3.5-5.0); Alkaline Phosphatase 126 U/L (39-117); Anion Gap 10 (12-20); Aspartate Amino Transferase 18 U/L (5-31); Bilirubin Direct < 0.2 mg/dL (0.0-0.5); Bilirubin Total 0.2 mg/dL (0.0-1.0); Blood Urea Nitrogen 10 mg/dL (9-16); Calcium 8.9 mg/dL (8.4-10.2); Carbon Dioxide 28 mmol/L (22-29); Chloride 107 mmol/L (96-108); Creatinine Clr Calc Pharmacy 86.5; Estimated Glomerular Filt Rate > 60; Glucose Random 98 mg/dL (60-115); Lipase 17 U/L (8-78); Potassium 3.8 mmol/L (3.3-5.1); Sodium 141 mmol/L (135-145); Total Protein 5.4 g/dL (6.5-8.0)
[2023-10-26 11:13] LABS: COVID-19 Test Negative (Negative); IDNOW Serial# 08D9AD1C
[2023-10-26 11:14] LABS: B Type Natriuretic Peptide 42 pg/mL (<100); IDNOW Serial# BCCEAD1C; Influenza A Negative (Negative); Influenza B2 Negative (Negative)
[2023-10-26 11:18] LABS: Troponin-I High Sensitivity 6.6 ng/L (<3.5-17.0)
--- NOTE | 2023-10-26 11:47 | ED_ITS ---
HPI - General Adult General Chief complaint: General Medical Stated complaint: l 4th toe infection and pneumonia Time Seen by Provider: 10/26/23 11:47 Source: patient Mode of arrival: wheelchair Limitations: no limitations History of Present Illness HPI narrative: Patient is a 48 year old assigned female at with a history of COPD, charcot foot, PAD, tobacco use, and lupus presenting to the emergency department today with left lower leg redness, swelling, pain, and a productive cough. Patient states that over the last few days she has had a worsening cough as well as left lower extremity swelling with a large ulceration between her 4th and 5th toes on the left foot. Patient denies any dizziness, lightheadedness, abdominal pain, nausea, vomiting, fever, chills, blurry vision, double vision, loss of vision, chest pain, difficulty breathing, shortness of breath, back pain, night sweats, pain with urination, increased urinary frequency, increased urinary urgency, blood in her urine or stool, syncope or a near syncopal episode, recent trauma or falls, bowel incontinence, bladder incontinence, bowel retention, bladder retention, or any other complaints at this time. Onset (ago): day(s) Location: left and lower extremity Severity: moderate Severity scale (1-10): 5 Relieving factors: none Exacerbating factors: none Associated symptoms: denies other symptoms Treatments prior to arrival: none Related Data Home Medications Medication Instructions Recorded Confirmed pravastatin 40 mg tablet 40 mg PO BEDTIME 08/15/20 08/01/23 albuterol sulfate 2.5 mg/3 mL 2.5 mg inhalation Q6H PRN 08/31/20 08/01/23 (0.083 %) solution for nebulization Shortness Of Breath Or Wheezing albuterol sulfate 90 mcg/actuation 2 puff inhalation Q4H PRN 08/31/20 08/01/23 aerosol inhaler Shortness Of Breath Or Wheezing bupropion HCl 100 mg tablet,12 hr 100 mg PO BID 08/31/20 08/01/23 sustained-release nortriptyline 75 mg capsule 75 mg PO BEDTIME 04/18/21 08/01/23 loratadine 10 mg tablet 10 mg PO DAILY PRN allergies 10/21/21 08/01/23 nebulizer and compressor (Vios #1 ea 02/15/22 07/16/23 Aerosol Delivery System) famotidine 20 mg tablet 1 tab PO DAILY 05/24/22 08/01/23 [id number]-[id number]-[id number] 2 tab PO DAILY PRN headache 11/08/22 08/01/23 50 mg-325 mg-40 mg tablet ferrous sulfate 325 mg (65 mg 1 tab PO DAILY 11/08/22 08/01/23 iron) tablet (FeroSul) tiotropium bromide 2.5 2 puff inhalation DAILY 11/08/22 08/01/23 mcg/actuation mist for inhalation (Spiriva Respimat) fluoxetine 20 mg capsule 2 cap PO DAILY 12/27/22 08/01/23 apixaban 5 mg tablet (Eliquis) 5 mg PO BID 01/03/23 08/01/23 fluticasone propionate 220 1 inh inhalation BID 01/03/23 08/01/23 mcg/actuation HFA aerosol inhaler (Flovent HFA) folic acid 1 mg tablet 1 mg PO DAILY 01/03/23 08/01/23 levothyroxine 175 mcg tablet 175 mcg PO DAILY 01/03/23 08/01/23 multivitamin (One Daily 1 tab PO DAILY 01/03/23 08/01/23 Multivitamin tablet) Previous Rx's Medication Instructions Recorded nicotine 21 mg/24 hr daily 21 mg transdermal DAILY #28 ea 12/30/22 transdermal patch lorazepam 1 mg tablet 1 mg PO BID PRN anxiety #10 tabs 01/03/23 nicotine 21 mg/24 hr daily 1 patch transdermal Q24H #28 ea 08/04/23 transdermal patch prednisone 10 mg tablet See Rx Instructions .Route 08/04/23 .COMPLEX #40 tabs sulfasalazine 500 mg tablet 1 g (2 x 500 mg) PO BID #240 tabs 09/10/23 hydroxychloroquine 200 mg tablet 300 mg (1.5 x 200 mg) PO BID #135 10/01/23 tabs Allergies Allergy/AdvReac Type Severity Reaction Status Date / Time clarithromycin Allergy Intermediate FACIAL Verified 09/10/23 15:54 [CLARITHROMYCIN] SWELLING/REDNESS, facial rash, facial rash, facial rash, facial rash Review of Systems 2 Constitutional: Constitutional: Reports no additional constitutional complaints, Denies chills, Denies fever(s) and Denies night sweats Eyes: Eyes: Reports no additional eye complaints, Denies blurry vision, Denies change in vision, Denies diplopia, Denies eye discharge, Denies loss of vision and Denies eye pain ENT: Denies dizziness Cardiovascular: Cardiovascular: Reports no additional cardiovascular complaints, Denies chest pain, Denies lightheadedness, Denies Loss of Consciousness and Denies dyspnea Comments: left lower extremity swelling, pain, and redness. Ulcer between the left 4th and 5th toes Respiratory: Respiratory: Reports no additional respiratory complaints, Reports cough and Denies dyspnea Gastrointestinal: Gastrointestinal: Reports no additional gastrointestinal complaints, Denies abdominal pain, Denies melena, Denies hematochezia, Denies change in bowel habits and Denies change in stool character Genitourinary: Genitourinary: Denies hematuria, Denies urinary frequency, Denies dysuria, Denies urinary incontinence, Denies urinary hesitancy and Denies urinary urgency Musculoskeletal: Musculoskeletal: Reports no additional musculoskeletal complaints, Denies numbness and Denies tingling Neurologic: Denies dizziness, Denies loss of vision, Denies numbness and Denies tingling Psychiatric: Psychiatric: Reports no additional psychiatric complaints Endocrine: Endocrine: Reports no additional endocrine complaints Hematologic/Lymphatic: Hematologic/Lymphatic: Reports no additional hematologic/lymphatic complaints Allergic/Immunologic: Allergic/Immunologic: Reports no additional allergic/immunologic complaints [facility] Past Medical History Attestation statement: The following information was validated with the patient. Source: old records reviewed and nursing notes reviewed Medical History Sepsis Community acquired pneumonia Bilateral pneumonia C. difficile colitis Open wound of right elbow Respiratory failure with hypoxia Pneumonia due to COVID-19 virus Acute respiratory distress syndrome (ARDS) due to COVID-19 virus Acute exacerbation of chronic obstructive airways disease Acute hypoxemic respiratory failure due to COVID-19 Ulcer of lower extremity Sepsis with acute hypoxic respiratory failure without septic shock Encounter for testing for latent tuberculosis infection Falling Charcot's joint of foot Cellulitis Redness and swelling of lower leg COPD (chronic obstructive pulmonary disease) C. difficile colitis Secondary bacterial pneumonia Immunosuppression due to chronic steroid use Mixed connective tissue disease Cellulitis of right leg PAD (peripheral artery disease) Varicose veins of right lower extremity with inflammation Rheumatoid arthritis Cellulitis CVA (cerebral vascular accident) Proteinuria Fibromyalgia Hypothyroid Lupus Surgical History Status post incision and drainage History of breast lump/mass excision History of excision of mass History of partial hysterectomy History of cholecystectomy History of bunionectomy Family History Family History Father No problems noted. Mother Lung cancer Rheumatoid arthritis Social History Social History Household Members: Children Household Members Other:: 3 Housing: House Do you presently have visiting nurse or other home services: Yes ([employer]) Alcohol intake: current Alcohol intake frequency: holidays/special occasions only Comment: pt asleep Patient Tobacco Use Status: Current everyday Tobacco user Tobacco use type: Cigarette Cigarette Packs Per Day: 0.5 Cigarettes Per Day: 10.0 Years Smoked: 30 Second Hand Smoke Exposure: No Substance Use Type: Marijuana Advance Directives: Yes Advance Directives on File: Yes Advance Directives Date on File: 11/26/21 service: No Current occupational status: unemployed and disabled Current occupation: right hand dominant Physical Exam ED Vital Signs: Vital Signs - 24 hr 10/26/23 10:09 10/26/23 12:01 Temperature 97.3 F 98.8 F Pulse Rate 90 88 Respiratory Rate 18 18 Blood Pressure 139/72 125/75 Pulse Oximetry 98 96 Oxygen Delivery Method Room Air Room Air BMI result Body Mass Index 24.6 Const General: cooperative, no acute distress, alert and awake Nutritional Appearance: well nourished Orientation/consciousness: patient oriented x3 Limitations: no limitations HENMT Head: Yes normal to inspection and Yes atraumatic Ears: hearing grossly normal bilaterally and external ears normal General nose exam: Normal external nose present, no nasal discharge noted and no epistaxis Face and sinus: Yes normal facial exam, No abrasion and No laceration Mouth: Normal oral and palatal mucosa present, no drooling and no muffled voice Eyes General: appearance normal, both eyes and all related structures Periorbital: periorbital findings normal Eyelids: Yes eyelids normal Conjunctivae: conjunctivae normal Pupils: Equal, round and reactive pupils present EOM: EOMs intact bilaterally Neck Neck: Yes normal visual inspection, Yes full ROM and Yes no lymphadenopathy Chest Chest palpation & inspection: normal inspection of the chest Resp Effort & Inspection: normal respiratory effort and able to speak in complete sentences Auscultation: diminished lung sounds diffuse GI Inspection: Yes normal to inspection Neuro General: patient oriented x3 and moves all extremities Cranial nerves: Yes Equal, round and reactive pupils present Cognition (Neuro): normal cognition Motor exam (neuro): 5/5 motor strength present throughout Sensory Exam: Normal double simultaneous stimulation for sensation Coordination: [id number] test normal Extrem Other: ulceration present between the left 4th and 5th toes with streaking redness up the left lower leg General: Yes capillary refill normal Psych Appearance: grossly normal Mental Status: mental status grossly normal Affect: normal affect Attitude: cooperative Thought process: Normal thought process present Thought content: Normal thought content present Insight: Good insight present (Psych) Medications Administered Discontinued Medications Generic Name Dose Route Start Last Admin Trade Name Freq PRN Reason Stop Dose Admin Ceftriaxone Sodium 1 gm/ 50 mls @ 100 mls/hr 10/26/23 12:33 10/26/23 13:03 Sodium Chloride IV 10/26/23 13:02 100 mls/hr ONCE ONE Administration Medical Decision Making Medical Decision Making MDM Narrative: Patient is a 48 year old assigned female at with a history of COPD, charcot foot, PAD, tobacco use, and lupus presenting to the emergency department today with left lower leg swelling/pain and a cough. Patient's physical exam was as noted in the physical exam portion of this note. Patient's blood work showed an elevated ESR and CRP but were otherwise unremarkable. Patient's chest x-ray showed acute pneumonia. Patient's clinical presentation is not consistent with sepsis (@1350). I spoke to the hospitalist who agreed to admission. Patient was given IV ceftriaxone. I explained my physical exam findings as well as all test results to the patient. I answered all questions asked by the patient. Patient verbalized agreement and understanding with this treatment plan and admission. Differential Diagnosis Differential Diagnoses: The differential diagnosis associated with the presentation includes Pneumonia Cellulitis Admission/Observation Consideration of admission/observation: Escalation of care including admission/observation considered Patient admitted. Consult Healthcare Provider Management of the patient was discussed with: Hospitalist (agreed to admission.) Lab Data [facility] Lab Attestation statement: I reviewed the patient's lab results. My interpretation of these results are in the MDM Rationale portion of this note. 10/26/23 10:46 10/26/23 10:46 Labs: Lab Results 10/26/23 10/26/23 10/26/23 Range/Units 10:46 12:10 12:21 WBC 8.5 (4.8-10.8) X10*3/uL RBC 4.38 (4.20-5.50) X10*6/uL Hgb 11.2 L (12.0-16.0) g/dl Hct 36.2 L (37.0-47.0) % MCV 82.6 (80.0-98.0) fL MCH 25.6 L (27.0-33.0) pg MCHC 30.9 L (31.0-35.0) g/dl RDW 13.5 (11.0-16.0) % Plt Count 266 (160-400) X10*3/uL MPV 9.5 (9.4-12.3) fL Immature Gran % (Auto) 0.4 (0.0-0.4) % Neut % (Auto) 67.6 (45-73) % Lymph % (Auto) 15.7 L (20-40) % [place] % (Auto) 10.4 (2-11) % Eos % (Auto) 5.2 H (0-4) % Baso % (Auto) 0.7 (0-2) % Lymph # (Auto) 1.3 (1.2-4.9) X10*3/uL [place] # (Auto) 0.9 (0.1-1.2) X10*3/uL Eos # (Auto) 0.4 (0.0-0.4) X10*3/uL Baso # (Auto) 0.1 (0.0-0.2) X10*3/uL Abs Immat Gran (auto) 0.03 (0.00-0.03) X10*3/uL Absolute Neuts (auto) 5.7 (2.0-8.3) x10*3/uL Absolute Nucleated RBC 0.000 (0.0-0.012) X10*3/uL Nucleated RBC % (auto) 0.0 (0.0-0.2) /100WBC ESR 30 H (0-20) MM/HR Sodium 141 (135-145) mmol/L Potassium 3.8 (3.3-5.1) mmol/L Chloride 107 (96-108) mmol/L Carbon Dioxide 28 (22-29) mmol/L Anion Gap 10 L (12-20) BUN 10 (9-16) mg/dL Creatinine 0.67 (0.5-1.4) mg/dL Estim Creat Clear Calc 86.5 Estimated GFR > 60 Random Glucose 98 (60-115) mg/dL Lactic Acid 1.0 (0.5-2.0) mmol/L Calcium 8.9 D (8.4-10.2) mg/dL Total Bilirubin 0.2 (0.0-1.0) mg/dL Direct Bilirubin < 0.2 (0.0-0.5) mg/dL AST 18 (5-31) U/L ALT 13 (0-31) U/L Alkaline Phosphatase 126 H (39-117) U/L Troponin I High Sens 6.6 (<3.5-17.0) ng/L C-Reactive Protein 4.35 H (< or = 0.50) mg/dL B-Natriuretic Peptide 42 (<100) pg/mL Total Protein 5.4 L (6.5-8.0) g/dL Albumin 2.8 L (3.5-5.0) g/dL Lipase 17 (8-78) U/L COVID-19 ([facility]) Negative (Negative) COVID-19 Clin Com See Note Influenza Type A (ERIC) Negative (Negative) Influenza Type A (PCR) NEGATIVE (Negative) Influenza Type B (ERIC) Negative (Negative) Influenza Type B (PCR) NEGATIVE (Negative) Influenza A & B Note See Note RSV RNA Qual (PCR) NEGATIVE (Negative) SARS-CoV-2 RNA (RT-PCR) NEGATIVE (Negative) Independent Interpretation I performed an independent interpretation of an: Plain X-Ray and Ultrasound Interpretation: My interpretation is in agreement with the radiologist's impression of these imaging studies. - EXAMINATION: US VENOUS ULTRASOUND WITH DOPPLER LOWER EXTREMITY, LEFT CLINICAL INFORMATION: Pain, swelling and warmth COMPARISON: Previous exam December 2020 TECHNIQUE: Ultrasound of the deep veins is performed from the hip to the calf with compression sonography and color and pulse Doppler assessment. Spectral analysis with color-flow imaging is performed. FINDINGS: There is normal venous compression and respiratory variation and augmented flow. The visualized common femoral vein, superficial femoral vein, profunda femoral vein, and popliteal vein shows no evidence of deep venous thrombosis. Calf veins not well visualized due to edema. There is no significant popliteal fossa cyst. US/US venous duplex LE LT IMPRESSION: No DVT demonstrated in the left lower extremity. Calf veins not well visualized. Dictated By: Meredith Small MD Signed By: Electronically signed by Meredith Small MD 10/26/23 1130 - EXAMINATION: XR CHEST CLINICAL INFORMATION: Asthma. Wheezing all lobes. COMPARISON: Chest x-ray 08/01/2023. TECHNIQUE: Frontal view of the chest was obtained. FINDINGS: Cardiac mediastinal silhouette is stable. No vascular congestion or edema. Chronic airway wall thickening. Chronic interstitial and airspace opacities appear stable. Opacities at the right lung base are increased compared to prior chest x-ray. No effusion or pneumothorax. Cholecystectomy clips. XR/XR chest 1V IMPRESSION: Chronic airways disease. Chronic interstitial and airspace opacities. Increased airspace opacities in the right lower lobe compatible with acute pneumonia. Recommend follow-up chest x-ray in 8 weeks after treatment/resolution of symptoms to ensure resolution. Dictated By: Dat Mcdermott MD Signed By: Electronically signed by Dat Mcdermott MD 10/26/23 1207 Radiology Impression Discussion of test interpretation with radiology: I have reviewed the radiologist's reading. External Record Review External record reviewed: Inpatient record, Office record and Outpatient record Critical Care Time Critical Care Time Critical Care Time: Yes Total Critical Care Time: 45 Attestation: I spent 45 minutes of Critical Care Time with this patient. This does not include time spent on separately reported billable procedures. Discharge Plan Discharge Clinical Impression: Cellulitis, Pneumonia Patient Disposition: Admitted As Inpatient Prescriptions: No Action hydroxychloroquine 200 mg tablet 300 mg PO BID Qty: 135 1RF albuterol sulfate 2.5 mg /3 mL (0.083 %) solution for nebulization 2.5 mg inhalation Q6H PRN (Reason: Shortness Of Breath Or Wheezing) bupropion HCl 100 mg tablet sustained-release 12 hr 100 mg PO BID albuterol sulfate 90 mcg/actuation HFA aerosol inhaler 2 puff inhalation Q4H PRN (Reason: Shortness Of Breath Or Wheezing) loratadine 10 mg Tablet 10 mg PO DAILY PRN (Reason: allergies) fluoxetine 20 mg capsule 2 cap PO DAILY nicotine 21 mg/24 hr Patch 24 Hour 21 mg transdermal DAILY Qty: 28 0RF famotidine 20 mg tablet 1 tab PO DAILY [id number]-[id number]-[id number] 50-325-40 mg tablet 2 tab PO DAILY PRN (Reason: headache) ferrous sulfate [FeroSul] 325 mg (65 mg iron) tablet 1 tab PO DAILY Spiriva Respimat 2.5 mcg/actuation mist 2 puff INHALATION DAILY multivitamin [One Daily Multivitamin] Tablet 1 tab PO DAILY levothyroxine 175 mcg tablet 175 mcg PO DAILY folic acid 1 mg tablet 1 mg PO DAILY Eliquis 5 mg tablet 5 mg PO BID fluticasone propionate [Flovent HFA] 220 mcg/actuation HFA aerosol inhaler 1 inh INHALATION BID lorazepam 1 mg tablet 1 mg PO BID PRN (Reason: anxiety) Qty: 10 0RF prednisone 10 mg tablet See Rx Instructions .ROUTE .COMPLEX Qty: 40 0RF Rx Instructions: 40 mg once daily x 4 days, then 30 mg once daily x 4 days, then 20 mg once daily x 4 days, then 10 mg once daily x 4 days, then return to 5 mg once daily nicotine 21 mg/24 hr patch 24 hour 1 patch transdermal Q24H Qty: 28 0RF nortriptyline 75 mg capsule 75 mg PO BEDTIME pravastatin 40 mg tablet 40 mg PO BEDTIME (DME) nebulizer and compressor [General [employer] Aerosol Delivery System] Device See Rx Instructions .ROUTE DIRECTED Qty: 1 Rx Instructions: As directed sulfasalazine 500 mg tablet 1 g PO BID Qty: 240 1RF
[2023-10-26 12:01] VITALS: BP 125/75; PULSE 88; RESP 18; TEMP 37.1; O2SAT 96
[2023-10-26 12:28] LABS: C Reactive Protein 4.35 mg/dL (< or = 0.50)
[2023-10-26] MEDS: cefTRIAXone sodium 1 GM in 0.9 % Sodium Chloride 50 ML IV (13:03)
[2023-10-26 13:15] LABS: Erythrocyte Sedimentation Rate 30 MM/HR (0-20)
[2023-10-26 13:38] LABS: Influenza A PCR NEGATIVE (Negative); Influenza B PCR NEGATIVE (Negative); Resp Syncy Virus RNA Qual PCR NEGATIVE (Negative); SARS COV2 PCR INHOUSE NEGATIVE (Negative)
[2023-10-26 13:54] VITALS: BP 132/63; PULSE 90; RESP 18; O2SAT 93
--- NOTE | 2023-10-26 14:38 | PHA.MEDREC ---
Addendum entered by Carla Brooks RPh 10/26/23 14:46: PT TAKES PLAQUENIL AND SULFASALAZINE DIFFERENT THAN CLAIM HISTORY. TDD OF PLAQUENIL IS STILL 400MG. TDD OF SULFASALAZINE IS 1500MG (NOT [address] DO WANTED) Original Note: Pharmacy Consult ? Medication Reconciliation Pharmacy has completed the medication reconciliation. spoke with patient to confirm medications.
--- NOTE | 2023-10-26 16:33 | PM.IMHP ---
History of Present Illness Date of Service: 10/26/23 Attending physician on admission: [facility] Chief Complaint: swelling lle, cough, sob 48-year-old female with history of COPD, rheumatoid arthritis on chronic prednisone, SLE on hydroxychloroquine, fibromyalgia, hypothyroidism, history of CVA, peripheral arterial disease, history of C diff, Charcot joint of foot who is a current 1/2 pack per day cigarette smoker who presented to the ED for evaluation of productive cough with yellow sputum ongoing for 5 days, wheezing, and swelling of the left lower extremity also ongoing for 5 days. She states she has a chronic ulcer of the left 4th toe that she was previously following with wound care for. For the last 5 days, has had significant erythema and swelling of the left lower extremity from the foot to the knee. Denies any purulent drainage. She has also had wheezing with limited improvement from albuterol inhaler associated with the productive cough. Denies any fevers, chills, congestion, sore throat, abdominal pain, nausea, vomiting, diarrhea, shortness of breath, lightheadedness, headache, or chest pain. Denies any sick contacts. On arrival, vital signs stable. There is no leukocytosis. She has a stable normocytic anemia with H/H 11.2/36.2%. Renal function electrolyte levels normal. Lactic acid 1.0. Troponin within normal limits, BNP 42. CRP 4.35, ESR 30. Negative for COVID-19, RSV, influenza. Venous duplex left lower extremity negative for DVT. Chest x-ray shows chronic airways disease as well as chronic interstitial and airspace opacities. There is increased airspace opacities in the right lower lobe compatible with acute pneumonia. In the ED given 1 g IV ceftriaxone. Review of Systems Review of Systems: General: No fevers, malaise, unintentional weight loss HEENT: No blurred vision, diplopia. No sore throat, nasal congestion, rhinorrhea, sinus pain, ear pain Cardiovascular: No chest pain, palpitations, or leg edema Respiratory: +cough, +wheezing. No shortness of breath, wheezing, cough GI: No abdominal pain, nausea, vomiting, diarrhea, constipation, melena, hematochezia : No dysuria, hematuria, increased urinary frequency, decreased urinary output MSK: +myalgia. No back pain Neuro: No headaches, weakness, paresthesias Skin: No rashes. +ulcer L 4th toe. +erythema LLE, +swelling LLE [facility] Medical History Sepsis Community acquired pneumonia Bilateral pneumonia C. difficile colitis Open wound of right elbow Respiratory failure with hypoxia Pneumonia due to COVID-19 virus Acute respiratory distress syndrome (ARDS) due to COVID-19 virus Acute exacerbation of chronic obstructive airways disease Acute hypoxemic respiratory failure due to COVID-19 Ulcer of lower extremity Sepsis with acute hypoxic respiratory failure without septic shock Encounter for testing for latent tuberculosis infection Falling Charcot's joint of foot Cellulitis Redness and swelling of lower leg COPD (chronic obstructive pulmonary disease) C. difficile colitis Secondary bacterial pneumonia Immunosuppression due to chronic steroid use Mixed connective tissue disease Cellulitis of right leg PAD (peripheral artery disease) Varicose veins of right lower extremity with inflammation Rheumatoid arthritis Cellulitis CVA (cerebral vascular accident) Proteinuria Fibromyalgia Hypothyroid Lupus Family History Father No problems noted. Mother Lung cancer Rheumatoid arthritis Surgical History Status post incision and drainage History of breast lump/mass excision History of excision of mass History of partial hysterectomy History of cholecystectomy History of bunionectomy Social History Household Members: Children Household Members Other:: 3 Housing: House Do you presently have visiting nurse or other home services: Yes (FAMILY COUNSELOR) Alcohol intake: current Alcohol intake frequency: holidays/special occasions only Comment: pt asleep Patient Tobacco Use Status: Current everyday Tobacco user Tobacco use type: Cigarette Cigarette Packs Per Day: 0.5 Cigarettes Per Day: 10.0 Years Smoked: 30 Smoked in Last 30 Days: Yes Second Hand Smoke Exposure: No Use of substances other than those prescribed or required for medical reasons: No Substance Use Type: Marijuana Advance Directives: Yes Advance Directives on File: Yes Advance Directives Date on File: 11/26/21 Patient : No service: No Current occupational status: unemployed and disabled Current occupation: right hand dominant Meds Allergies Allergy/AdvReac Type Severity Reaction Status Date / Time clarithromycin Allergy Intermediate FACIAL Verified 09/10/23 15:54 [CLARITHROMYCIN] SWELLING/REDNESS, facial rash, facial rash, facial rash, facial rash Active Medications: Current Medications Acetaminophen (Acetaminophen 325 Mg Tablet) 650 mg PO Q6H PRN PRN Reason: Pain, Mild (Pain Scale 1-3) Albuterol/Ipratropium (Albuterol/Iprat 2.5/0.5mg 3 Ml Ampul.Neb) 3 ml INHALE RQ4H WHILE AWAKE [facility] Cefazolin Sodium/Dextrose (Ancef) 2 gm in 50 mls @ 100 mls/hr IV Q8H [facility] Doxycycline Hyclate 100 mg/ (Sodium Chloride) 250 mls @ 166.67 mls/hr IV Q12H [facility] Methylprednisolone Sodium Succinate (Methylprednisolone Sod Succ 40 Mg/Ml Vial) 40 mg IVPUSH Q12H [place] Ondansetron HCl (Ondansetron Hcl 4 Mg/2 Ml Vial) 4 mg IVPUSH Q8H PRN PRN Reason: Nausea and Vomiting Senna (Sennosides 8.6 Mg Tablet) 17.2 mg PO BEDTIME PRN PRN Reason: Constipation Sodium Chloride (0.9 % Sodium Chloride Flush 3 Ml Syringe) 3 ml IVFLUSH QSHIFT [facility] Home Medications Medication Instructions Recorded Confirmed Last Taken Type pravastatin 40 mg tablet 40 mg PO BEDTIME 08/15/20 10/26/23 12/26/22 History albuterol sulfate 2.5 mg/3 mL 2.5 mg inhalation Q6H PRN 08/31/20 10/26/23 08/30/20 History (0.083 %) solution for nebulization Shortness Of Breath Or Wheezing albuterol sulfate 90 mcg/actuation 2 puff inhalation Q4H PRN 08/31/20 10/26/23 08/30/20 History aerosol inhaler Shortness Of Breath Or Wheezing bupropion HCl 100 mg tablet,12 hr 100 mg PO BID 08/31/20 10/26/23 12/26/22 History sustained-release nortriptyline 75 mg capsule 75 mg PO BEDTIME 04/18/21 10/26/23 12/26/22 History loratadine 10 mg tablet 10 mg PO DAILY allergies 10/21/21 10/26/23 12/26/22 History nebulizer and compressor (Vios #1 ea 02/15/22 07/16/23 Unknown History Aerosol Delivery System) famotidine 20 mg tablet 1 tab PO DAILY 05/24/22 10/26/23 12/26/22 History xqoyyskupr-ilpsyzfgtyhlq-eczrdpqv 1 - 2 tab PO DAILY PRN headache 11/08/22 10/26/23 Unknown History 50 mg-325 mg-40 mg tablet ferrous sulfate 325 mg (65 mg 1 tab PO DAILY 11/08/22 10/26/23 12/26/22 History iron) tablet (FeroSul) tiotropium bromide 2.5 1 puff inhalation DAILY 11/08/22 10/26/23 12/26/22 History mcg/actuation mist for inhalation (Spiriva Respimat) fluoxetine 20 mg capsule 2 cap PO DAILY 12/27/22 10/26/23 12/26/22 History apixaban 5 mg tablet (Eliquis) 5 mg PO BID 01/03/23 10/26/23 Unknown History fluticasone propionate 220 1 inh inhalation BID 01/03/23 10/26/23 Unknown History mcg/actuation HFA aerosol inhaler (Flovent HFA) folic acid 1 mg tablet 1 mg PO DAILY 01/03/23 10/26/23 Unknown History levothyroxine 175 mcg tablet 175 mcg PO DAILY 01/03/23 10/26/23 Unknown History multivitamin (One Daily 1 tab PO DAILY 01/03/23 10/26/23 Unknown History Multivitamin tablet) hydroxychloroquine 200 mg tablet 100 mg PO QPM 10/26/23 10/26/23 Unknown History hydroxychloroquine 200 mg tablet 300 mg PO QAM 10/26/23 10/26/23 Unknown History prednisone 5 mg tablet 5 mg PO DAILY 10/26/23 10/26/23 Unknown History sulfasalazine 500 mg tablet 1 g PO QAM 10/26/23 10/26/23 Unknown History sulfasalazine 500 mg tablet 500 mg PO QPM 10/26/23 10/26/23 Unknown History tramadol 50 mg tablet 50 mg PO BEDTIME PRN Pain 10/26/23 10/26/23 Unknown History Physical Exam Vital Signs and Narrative: Vital Signs: Last Vital Signs Temp 98.8 F 10/26/23 12:01 Pulse 90 10/26/23 13:54 Resp 18 10/26/23 13:54 BP 132/63 10/26/23 13:54 Pulse Ox 93 10/26/23 13:54 O2 Del Method Room Air 10/26/23 13:54 BMI result Body Mass Index 24.6 Constitutional - Awake and Alert, No apparent distress Eyes - PERRLA, EOMI Cardiovascular - S1S2, RRR, No edema Respiratory - Normal lung expansion, Normal respiratory effort, No respiratory distress, coarse lung sounds bilaterally with expiratory wheezing, rhonchi RLL Gastrointestinal - NT / ND; +BS; No rebound or guarding Extremities - no calf tenderness bilaterally, no swelling Skin - Warm/Dry. Extensive cellulitis and swelling LLE extending from the foot to the knee circumferentially with shallow stage II ulcer left 4th toe without any purulent drainage Neurological - Alert & oriented x3 Psychological - Appropriate affect Results Labs 10/26/23 10:46 10/26/23 10:46 Labs: Laboratory Results - last 24 hr 10/26/23 10/26/23 10/26/23 10:46 12:10 12:21 MCV 82.6 MCH 25.6 L MCHC 30.9 L RDW 13.5 Plt Count 266 MPV 9.5 Immature Gran % (Auto) 0.4 Neut % (Auto) 67.6 Lymph % (Auto) 15.7 L Benton % (Auto) 10.4 Eos % (Auto) 5.2 H Baso % (Auto) 0.7 Lymph # (Auto) 1.3 Benton # (Auto) 0.9 Eos # (Auto) 0.4 Baso # (Auto) 0.1 Abs Immat Gran (auto) 0.03 Absolute Neuts (auto) 5.7 Absolute Nucleated RBC 0.000 Nucleated RBC % (auto) 0.0 ESR 30 H Anion Gap 10 L Estim Creat Clear Calc 86.5 Estimated GFR > 60 Random Glucose 98 Lactic Acid 1.0 Calcium 8.9 D Total Bilirubin 0.2 Direct Bilirubin < 0.2 AST 18 ALT 13 Alkaline Phosphatase 126 H C-Reactive Protein 4.35 H B-Natriuretic Peptide 42 Total Protein 5.4 L Albumin 2.8 L Lipase 17 COVID-19 ([facility]) Negative COVID-19 Clin Com See Note Influenza Type A (ERIC) Negative Influenza Type A (PCR) NEGATIVE Influenza Type B (ERIC) Negative Influenza Type B (PCR) NEGATIVE Influenza A & B Note See Note RSV RNA Qual (PCR) NEGATIVE SARS-CoV-2 RNA (RT-PCR) NEGATIVE Imaging Radiologist's Impressions: Impressions Venous Duplex 10/26/23 10:58 IMPRESSION: No DVT demonstrated in the left lower extremity. Calf veins not well visualized. Chest X-Ray 10/26/23 11:33 IMPRESSION: Chronic airways disease. Chronic interstitial and airspace opacities. Increased airspace opacities in the right lower lobe compatible with acute pneumonia. Recommend follow-up chest x-ray in 8 weeks after treatment/resolution of symptoms to ensure resolution. Assessment and Plan (1) Pneumonia: Status: Acute (2) Cellulitis: Status: Acute Plan 48-year-old female with history of COPD, rheumatoid arthritis on chronic prednisone, SLE on hydroxychloroquine, fibromyalgia, hypothyroidism, history of CVA, peripheral arterial disease, history of C diff, Charcot joint of foot who is a current 1/2 pack per day cigarette smoker admitted for extensive is cellulitis of the left lower extremity and right lower lobe pneumonia and COPD exacerbation. # cellulitis left lower extremity with chronic stage II non pressure ulcer of the left 4th toe -extensive in immunocompromised pt -IV cefazolin 2g q8h (initiated 10/26) -no leukocytosis or SIRS criteria. CRP 4.35, ESR 30 -x-ray left foot pending to evaluate for any osseous abnormality given chronic ulcer -venous duplex negative for DVT -wound RN consult -follow CBC, cultures # acute right lower lobe pneumonia -IV cefazolin 2 g q.8h and doxycycline 100 mg b.i.d. (initiated 10/26) -strep pneumo antigen, Legionella antigen, sputum culture pending -symptomatic management -follow CBC, cultures # acute COPD exacerbation -no hypoxia -IV methylprednisolone 40 mg b.i.d. -DuoNebs q.4h -albuterol p.r.n. -continue maintenance inhalers -ABX as above # hypothyroidism -continue levothyroxine # SLE -stable, continue hydroxychloroquine # rheumatoid arthritis -stable. Hold prednisone, on IV methylprednisolone # peripheral arterial disease -continue Eliquis # mood disorder unspecified -continue home meds DVT prophylaxis-Eliquis Full code Given immunocompromised status and extensive cellulitis of >50% left left lower extremity, patient requires inpatient stay of at least 2 midnights for IV antibiotics. She is also noted to have COPD exacerbation with coarse lung sounds diffusely with expiratory wheezing requiring IV steroids and nebulizers. Quality Stroke Does the patient have a stroke diagnosis?: No VTE Prior VTE?: No VTE Risk Level:: Medical - moderate - high VTE Device Contraindication: Treatment Not Indicated VTE Drug Contraindication: N/A - Med Ordered
[2023-10-26] MEDS: LORazepam 1 MG TABLET PO (17:09)
[2023-10-26] MEDS: Nicotine 14 MG PATCH.TD24 TRANSDERMA (17:09)
[2023-10-26] MEDS: ceFAZolin Sodium/Dextrose,Iso 2 GM/50 ML PIGGYBACK IV ×2 (17:10→23:58)
[2023-10-26] MEDS: methylPREDNISolone Sod Succ 40 MG/ML VIAL IVPUSH (17:10)
[2023-10-26] MEDS: Doxycycline Hyclate 100 MG in 0.9 % Sodium Chloride 250 ML 166.67 MG IV (17:57)
[2023-10-26] MEDS: sulfaSALAzine 500 MG TABLET 1000 MG PO (19:53)
[2023-10-26 19:55] VITALS: PULSE 84; O2SAT 90
[2023-10-26] MEDS: Fluticasone Propionate 250 MCG BLST.W.DEV 1 PUFF INHALE (19:55)
[2023-10-26] MEDS: Albuterol/Iprat 2.5/0.5MG 3 ML AMPUL.NEB INHALE (19:55)
[2023-10-26 19:59] VITALS: BP 153/81; PULSE 97; RESP 16; O2SAT 100
[2023-10-26] MEDS: Nortriptyline HCl 25 MG CAPSULE 75 MG PO (20:02)
[2023-10-26] MEDS: Apixaban 5 MG TABLET PO (20:02)
[2023-10-26] MEDS: Pravastatin Sodium 40 MG TABLET PO (20:02)
[2023-10-26] MEDS: Hydroxychloroquine Sulfate 200 MG TABLET 100 MG PO (20:03)
[2023-10-26 20:28] VITALS: BP 161/66; PULSE 95; RESP 22; TEMP 36.6; O2SAT 93
[2023-10-26] MEDS: 0.9 % Sodium Chloride Flush 3 ML SYRINGE IVFLUSH (21:30)
[2023-10-26] MEDS: sulfaSALAzine 500 MG TABLET PO (21:30)
[2023-10-27] VITALS (7 sets, daily range): BP systolic 114–130; BP diastolic 61–79; PULSE 94–98; RESP 18–20; TEMP 36.1–36.8; O2SAT 90–95
[2023-10-27] MEDS: methylPREDNISolone Sod Succ 40 MG/ML VIAL IVPUSH ×2 (03:56→16:07)
[2023-10-27] MEDS: Doxycycline Hyclate 100 MG in 0.9 % Sodium Chloride 250 ML 166.67 MG IV (03:56)
[2023-10-27] MEDS: Famotidine 20 MG TABLET PO (05:29)
[2023-10-27] MEDS: Levothyroxine Sodium 175 MCG TABLET PO (05:29)
[2023-10-27 06:35] LABS: MANUAL DIFF FLAG NO
[2023-10-27 07:01] LABS: Basophils Percent Auto 0.5 % (0-2); Eosinophils Percent Auto 0.5 % (0-4); Hematocrit 36.2 % (37.0-47.0); Hemoglobin 10.9 g/dl (12.0-16.0); Imm Gran Abs Auto 0.04 X10*3/uL (0.00-0.03); Imm Gran Pct Auto 0.6 % (0.0-0.4); Lymphocytes Absolute Auto 0.7 X10*3/uL (1.2-4.9); Lymphocytes Percent Auto 11.3 % (20-40); Mean Corpuscular HGB Conc 30.1 g/dl (31.0-35.0); Mean Corpuscular Hemoglobin 25.6 pg (27.0-33.0); Mean Platelet Volume 9.8 fL (9.4-12.3); Monocytes Absolute Auto 0.3 X10*3/uL (0.1-1.2); Monocytes Percent Auto 5.3 % (2-11); Neutrophils Absolute Auto 5.1 x10*3/uL (2.0-8.3); Neutrophils Percent Auto 81.8 % (45-73); Platelet Count 240 X10*3/uL (160-400); Red Blood Count 4.26 X10*6/uL (4.20-5.50); Red Cell Distribution Width 13.4 % (11.0-16.0); White Blood Count 6.3 X10*3/uL (4.8-10.8)
[2023-10-27 07:17] LABS: Anion Gap 11 (12-20); Blood Urea Nitrogen 9 mg/dL (9-16); Calcium 8.4 mg/dL (8.4-10.2); Carbon Dioxide 26 mmol/L (22-29); Chloride 107 mmol/L (96-108); Creatinine Clr Calc Pharmacy 79.4; Estimated Glomerular Filt Rate > 60; Glucose Random 86 mg/dL (60-115); Potassium 4.5 mmol/L (3.3-5.1); Sodium 139 mmol/L (135-145)
[2023-10-27] MEDS: Albuterol/Iprat 2.5/0.5MG 3 ML AMPUL.NEB INHALE ×3 (07:48→19:39)
[2023-10-27] MEDS: Fluticasone Propionate 250 MCG BLST.W.DEV 1 PUFF INHALE ×2 (07:48→19:39)
[2023-10-27] MEDS: ceFAZolin Sodium/Dextrose,Iso 2 GM/50 ML PIGGYBACK IV (09:30)
[2023-10-27] MEDS: FLUoxetine HCl 20 MG CAPSULE 40 MG PO (09:31)
[2023-10-27] MEDS: Hydroxychloroquine Sulfate 200 MG TABLET 300 MG PO (09:31)
[2023-10-27] MEDS: Multivitamin TABLET 1 TAB PO (09:31)
[2023-10-27] MEDS: Ferrous Sulfate 324 MG TABLET.DR PO (09:31)
[2023-10-27] MEDS: buPROPion HCl XL 150 MG TAB.ER.24H PO (09:31)
[2023-10-27] MEDS: sulfaSALAzine 500 MG TABLET 1000 MG PO (09:31)
[2023-10-27] MEDS: Apixaban 5 MG TABLET PO ×2 (09:31→20:48)
[2023-10-27] MEDS: 0.9 % Sodium Chloride Flush 3 ML SYRINGE IVFLUSH ×3 (09:32→20:49)
[2023-10-27] MEDS: Folic Acid 1 MG TABLET PO (09:32)
[2023-10-27] MEDS: Loratadine 10 MG TABLET PO (09:32)
[2023-10-27] MEDS: Nicotine 14 MG PATCH.TD24 TRANSDERMA (09:32)
--- NOTE | 2023-10-27 10:15 | P.PNIM_ITS ---
Subjective Subjective Date of Service: 10/27/23 Interval History: Seen in follow up for cellulitis LLE with infected ulcer L 4th toe, pneumonia Interval history: Slight improvement in erythema and swelling, still with calf tightness and tenderness. Cough improved. No sob, chest pain. Afebrile, no hypoxia Review of Systems Review of Systems: Yes all other systems are reviewed and are negative Physical Exam 2 Vital Signs: Vital Signs: Last Vital Signs Temp 97.8 F 10/27/23 07:21 Pulse 96 10/27/23 07:49 Resp 20 10/27/23 07:49 BP 125/65 10/27/23 07:21 Pulse Ox 92 10/27/23 07:21 O2 Del Method Room Air 10/27/23 07:21 BMI result Body Mass Index 24.6 Constitutional - Awake and Alert, No apparent distress Eyes - PERRLA, EOMI Cardiovascular - S1S2, RRR, No edema. 2+ pedal pulses b/l Respiratory - Normal lung expansion, Normal respiratory effort, No respiratory distress, rhonchi RLL, scattered expiratory wheezes Extremities - no calf tenderness bilaterally, no swelling Skin - Warm/Dry. L lower leg/foot- slightly improved erythema/ swelling extending from foot and lower leg and posterior upper leg. Shallow ulceration left 4th toe without purulent drainage or necrosis Neurological - Alert & oriented x3 Psychological - Appropriate affect Objective Data Active Medications Acetaminophen (Acetaminophen 325 Mg Tablet) 650 mg PO Q6H PRN PRN Reason: Pain, Mild (Pain Scale 1-3) Acetaminophen/Butalbital/Caffeine (Butalb/Acetamin/Caff 50/325/40 Tablet) 2 tab PO DAILY PRN PRN Reason: headache Albuterol Sulfate (Albuterol Sulfate (0.083%) 2.5 Mg/3 Ml Vial.Neb) 2.5 mg INHALE Q6H PRN PRN Reason: Shortness Of Breath Or Wheezing Albuterol/Ipratropium (Albuterol/Iprat 2.5/0.5mg 3 Ml Ampul.Neb) 3 ml INHALE RQ4H WHILE AWAKE [facility] Last Admin: 10/27/23 07:48 Dose: 3 ml Documented By: EDUARDA Apixaban (Apixaban 5 Mg Tablet) 5 mg PO BID [facility] Last Admin: 10/27/23 09:31 Dose: 5 mg Documented By: MELITA Bupropion HCl (Bupropion Hcl Xl 150 Mg Tab.Er.24h) 150 mg PO DAILY [facility] Last Admin: 10/27/23 09:31 Dose: 150 mg Documented By: MELITA Famotidine (Famotidine 20 Mg Tablet) 20 mg PO DAILY@0630 [facility] Last Admin: 10/27/23 05:29 Dose: 20 mg Documented By: VERNA Ferrous Sulfate (Ferrous Sulfate 324 Mg Tablet.Dr) 324 mg PO DAILY [facility] Last Admin: 10/27/23 09:31 Dose: 324 mg Documented By: MELITA Fluoxetine HCl (Fluoxetine Hcl 20 Mg Capsule) 40 mg PO DAILY [facility] Last Admin: 10/27/23 09:31 Dose: 40 mg Documented By: MELITA Fluticasone Propionate (Fluticasone Propionate 250 Mcg Blst.W.Dev) 1 puff INHALE RBID [facility] Last Admin: 10/27/23 07:48 Dose: 1 puff Documented By: EDUARDA Folic Acid (Folic Acid 1 Mg Tablet) 1 mg PO DAILY [facility] Last Admin: 10/27/23 09:32 Dose: 1 mg Documented By: MELITA Guaifenesin (Guaifenesin 200 Mg/10 Ml 10 Ml Liquid) 10 ml PO Q4H PRN PRN Reason: Cough Hydroxychloroquine Sulfate (Hydroxychloroquine Sulfate 200 Mg Tablet) 100 mg PO BEDTIME [facility] Last Admin: 10/26/23 20:03 Dose: 100 mg Documented By: KEVIN Hydroxychloroquine Sulfate (Hydroxychloroquine Sulfate 200 Mg Tablet) 300 mg PO DAILY [facility] Last Admin: 10/27/23 09:31 Dose: 300 mg Documented By: MELITA Comments: Cefazolin Sodium/Dextrose (Ancef) 2 gm in 50 mls @ 100 mls/hr IV Q8H [facility] Last Admin: 10/27/23 09:30 Dose: 100 mls/hr Documented By: MELITA Doxycycline Hyclate 100 mg/ (Sodium Chloride) 250 mls @ 166.67 mls/hr IV Q12H [facility] Last Infusion: 10/27/23 05:33 Dose: Infused Documented By: VERNA Levothyroxine Sodium (Levothyroxine Sodium 175 Mcg Tablet) 175 mcg PO DAILY@0600 [facility] Last Admin: 10/27/23 05:29 Dose: 175 mcg Documented By: VERNA Loratadine (Loratadine 10 Mg Tablet) 10 mg PO DAILY [facility] Last Admin: 10/27/23 09:32 Dose: 10 mg Documented By: MELITA Lorazepam (Lorazepam 1 Mg Tablet) 1 mg PO BID PRN PRN Reason: anxiety Last Admin: 10/26/23 17:09 Dose: 1 mg Documented By: CAM Methylprednisolone Sodium Succinate (Methylprednisolone Sod Succ 40 Mg/Ml Vial) 40 mg IVPUSH Q12H [facility] Last Admin: 10/27/23 03:56 Dose: 40 mg Documented By: VERNA Multivitamins/Vitamin C (Multivitamin Tablet) 1 tab PO DAILY [facility] Last Admin: 10/27/23 09:31 Dose: 1 tab Documented By: MELITA Nicotine (Nicotine 14 Mg Patch.Td24) 14 mg TRANSDERMA DAILY [facility] Last Admin: 10/27/23 09:32 Dose: 14 mg Documented By: MELITA Nortriptyline HCl (Nortriptyline Hcl 25 Mg Capsule) 75 mg PO BEDTIME [facility] Last Admin: 10/26/23 20:02 Dose: 75 mg Documented By: KEVIN Ondansetron HCl (Ondansetron Hcl 4 Mg/2 Ml Vial) 4 mg IVPUSH Q8H PRN PRN Reason: Nausea and Vomiting Pravastatin Sodium (Pravastatin Sodium 40 Mg Tablet) 40 mg PO BEDTIME [facility] Last Admin: 10/26/23 20:02 Dose: 40 mg Documented By: KEVIN Senna (Sennosides 8.6 Mg Tablet) 17.2 mg PO BEDTIME PRN PRN Reason: Constipation Sodium Chloride (0.9 % Sodium Chloride Flush 3 Ml Syringe) 3 ml IVFLUSH QSHIFT [facility] Last Admin: 10/27/23 09:32 Dose: 3 ml Documented By: MELITA Sulfasalazine (Sulfasalazine 500 Mg Tablet) 1,000 mg PO DAILY [facility] Last Admin: 10/27/23 09:31 Dose: 1,000 mg Documented By: MELITA Sulfasalazine (Sulfasalazine 500 Mg Tablet) 500 mg PO BEDTIME [facility] Last Admin: 10/26/23 21:30 Dose: 500 mg Documented By: VERNA Tiotropium Poca (Tiotropium Poca 2.5 Mcg 1 Puff/2.5 Mcg Mist.Inhal) 1 puff INHALE DAILY [facility] Last Admin: 10/27/23 07:52 Dose: Not Given Documented By: EDUARDA Non-Admin Reason: Med not available, pharmacy called. Tramadol HCl (Tramadol Hcl 50 Mg Tablet) 50 mg PO BEDTIME PRN PRN Reason: Pain, Moderate(Pain Scale 4-6) Labs 10/27/23 05:49 10/27/23 05:49 Labs: Laboratory Results - last 24 hr 10/26/23 10/26/23 10/26/23 10:46 12:10 12:21 MCV 82.6 MCH 25.6 L MCHC 30.9 L RDW 13.5 Plt Count 266 MPV 9.5 Immature Gran % (Auto) 0.4 Neut % (Auto) 67.6 Lymph % (Auto) 15.7 L [place] % (Auto) 10.4 Eos % (Auto) 5.2 H Baso % (Auto) 0.7 Lymph # (Auto) 1.3 [place] # (Auto) 0.9 Eos # (Auto) 0.4 Baso # (Auto) 0.1 Abs Immat Gran (auto) 0.03 Absolute Neuts (auto) 5.7 Absolute Nucleated RBC 0.000 Nucleated RBC % (auto) 0.0 ESR 30 H Anion Gap 10 L Estim Creat Clear Calc 86.5 Estimated GFR > 60 Random Glucose 98 Lactic Acid 1.0 Calcium 8.9 D Total Bilirubin 0.2 Direct Bilirubin < 0.2 AST 18 ALT 13 Alkaline Phosphatase 126 H C-Reactive Protein 4.35 H B-Natriuretic Peptide 42 Total Protein 5.4 L Albumin 2.8 L Lipase 17 COVID-19 ([facility]) Negative COVID-19 Clin Com See Note Influenza Type A (ERIC) Negative Influenza Type A (PCR) NEGATIVE Influenza Type B (ERIC) Negative Influenza Type B (PCR) NEGATIVE Influenza A & B Note See Note RSV RNA Qual (PCR) NEGATIVE SARS-CoV-2 RNA (RT-PCR) NEGATIVE 10/27/23 05:49 MCV 85.0 MCH 25.6 L MCHC 30.1 L RDW 13.4 Plt Count 240 MPV 9.8 Immature Gran % (Auto) 0.6 H Neut % (Auto) 81.8 H Lymph % (Auto) 11.3 L [place] % (Auto) 5.3 Eos % (Auto) 0.5 Baso % (Auto) 0.5 Lymph # (Auto) 0.7 L [place] # (Auto) 0.3 Eos # (Auto) 0.0 Baso # (Auto) 0.0 Abs Immat Gran (auto) 0.04 H Absolute Neuts (auto) 5.1 Absolute Nucleated RBC 0.000 Nucleated RBC % (auto) 0.0 ESR Anion Gap 11 L Estim Creat Clear Calc 79.4 Estimated GFR > 60 Random Glucose 86 Lactic Acid Calcium 8.4 Total Bilirubin Direct Bilirubin AST ALT Alkaline Phosphatase C-Reactive Protein B-Natriuretic Peptide Total Protein Albumin Lipase COVID-19 ([facility]) COVID-19 Clin Com Influenza Type A (ERIC) Influenza Type A (PCR) Influenza Type B (ERIC) Influenza Type B (PCR) Influenza A & B Note RSV RNA Qual (PCR) SARS-CoV-2 RNA (RT-PCR) Assessment and Plan (1) Pneumonia: Status: Acute (2) Cellulitis: Status: Acute (3) COPD exacerbation: Status: Acute Plan 48-year-old female with history of COPD, rheumatoid arthritis on chronic prednisone, SLE on hydroxychloroquine, fibromyalgia, hypothyroidism, history of CVA, peripheral arterial disease, history of C diff, Charcot joint of foot who is a current 1/2 pack per day cigarette smoker admitted for extensive is cellulitis of the left lower extremity and right lower lobe pneumonia and COPD exacerbation. # cellulitis left lower extremity with chronic stage II non pressure ulcer of the left 4th toe -extensive in immunocompromised pt -no leukocytosis or SIRS criteria. CRP 4.35, ESR 30 -venous duplex negative for DVT -IV cefazolin 2g q8h (initiated 10/26, D2) -x-ray left foot shows possible osteomyelitis -Check MR left foot w/wo contrast to evaluate for osteomyelitis -Arterial doppler pending -ID and/or vascular surgery pending results of imaging -wound RN consult -follow CBC, cultures -Adjust abx as indicated pending results of studies # acute right lower lobe pneumonia -IV cefazolin 2 g q.8h and doxycycline 100 mg b.i.d. (initiated 10/26, D2) -strep pneumo antigen, Legionella antigen, sputum culture pending -symptomatic management -follow CBC, cultures # acute COPD exacerbation- improving -no hypoxia -IV methylprednisolone 40 mg b.i.d. -Change to oral prednisone tomorrow -DuoNebs q.4h -albuterol p.r.n. -continue maintenance inhalers -ABX as above # hypothyroidism -continue levothyroxine # SLE -stable, continue hydroxychloroquine # rheumatoid arthritis -stable. Hold prednisone, on IV methylprednisolone # peripheral arterial disease -continue Eliquis # mood disorder unspecified -continue home meds DVT prophylaxis-Eliquis Full code Given immunocompromised status and extensive cellulitis of >50% left left lower extremity, patient requires ongoing inpatient stay of at least 2 midnights for IV antibiotics and well as further work up for possible osteomyelitis which will likely require midline placement and intermediate card tender abx if present. Quality Stroke Does the patient have a stroke diagnosis?: No VTE Prior VTE?: No VTE Risk Level:: Medical - moderate - high VTE Device Contraindication: Treatment Not Indicated VTE Drug Contraindication: N/A - Med Ordered
[2023-10-27] MEDS: LORazepam 1 MG TABLET PO (11:00)
[2023-10-27] MEDS: Acetaminophen 325 MG TABLET 650 MG PO (11:00)
[2023-10-27] MEDS: gadobutroL 7.5 ML VIAL IVPUSH (11:57)
--- NOTE | 2023-10-27 15:01 | MHC.CM.PN ---
PT REPORTS SHE LIVES WITH HER ADULT CHILDREN AND HAS [employer] FOR A COUPLE HOURS DAILY SHE REPORTS USING A WALKER AND HAVING A WHEEL CHAIR SHE USES NEEDED PT HAS A HCP ON FILE AND HER PCP IS SARTHAK Santos IMM DELIVERED DCP: [facility] TO TRANSPORT
[2023-10-27] MEDS: vancomycin HCL 1,500 MG in 0.9 % Sodium Chloride 500 ML 333.33 MG IV (16:07)
[2023-10-27] MEDS: Piperacillin Sodium/Tazobactam 4.5 GM in 0.9 % Sodium Chloride 100 ML IV ×2 (16:07→21:32)
--- NOTE | 2023-10-27 16:45 | PHA.PROG ---
Admission Date/Time: October 26, 2023 16:22 Indication: BONE AND JOINT Weight in k.967 kg Adjusted body weight in Kg: [place] body weight in Kg: Obesity Dosing Indication % IBW: Serum Creatinine - Last 168 Hours 10/26/23 10/27/23 10:46 05:49 Creatinine 0.67 0.73 Estimated CrCl and GFR - Last 168 Hours 10/26/23 10/27/23 10:46 05:49 Estim Creat Clear Calc 86.5 79.4 Estimated GFR > 60 > 60 Vancomycin Loading Dose: 1500 MG Current Vancomycin Dosing Regimen: 1000MG Q12H Vancomycin Monitoring using AUC goal of 400 - 600 range with trough as surrogate marker: AUC 555, TROUGH 16.8 Date and Time for next Vancomycin Level to be drawn: RANDOM 10/28 @1400 Pharmacist Comments on Vancomycin Plan: Vancomycin dosing will take advantage of [employer] as a clinical decision support tool that uses Bayesian modeling to calculate individual patient's pharmacokinetic parameters and forecast the patient's drug concentration time course with the target goal AUC 24 range of 400 - 600 mg/L/hr.
[2023-10-27] MEDS: Pravastatin Sodium 40 MG TABLET PO (20:46)
[2023-10-27] MEDS: Nortriptyline HCl 25 MG CAPSULE 75 MG PO (20:47)
[2023-10-27] MEDS: Hydroxychloroquine Sulfate 200 MG TABLET 100 MG PO (20:48)
[2023-10-27] MEDS: sulfaSALAzine 500 MG TABLET PO (20:49)
[2023-10-28] VITALS (8 sets, daily range): BP systolic 111–121; BP diastolic 55–61; PULSE 85–102; RESP 16–18; TEMP 36–37.1; O2SAT 90–96
[2023-10-28] MEDS: Piperacillin Sodium/Tazobactam 4.5 GM in 0.9 % Sodium Chloride 100 ML IV ×4 (03:43→21:27)
[2023-10-28] MEDS: vancomycin HCL 1,000 MG in 0.9 % Sodium Chloride 250 ML 270 MG IV ×2 (04:43→15:14)
[2023-10-28] MEDS: Famotidine 20 MG TABLET PO (05:55)
[2023-10-28] MEDS: Levothyroxine Sodium 175 MCG TABLET PO (05:55)
[2023-10-28 06:25] LABS: Creatinine Clr Calc Pharmacy 85.3; Estimated Glomerular Filt Rate > 60
[2023-10-28] MEDS: Fluticasone Propionate 250 MCG BLST.W.DEV 1 PUFF INHALE ×2 (07:33→20:34)
[2023-10-28] MEDS: Tiotropium Bromide 2.5 mcg 1 PUFF/2.5 MCG MIST.INHAL INHALE (07:33)
[2023-10-28] MEDS: Albuterol/Iprat 2.5/0.5MG 3 ML AMPUL.NEB INHALE ×4 (07:33→20:34)
[2023-10-28] MEDS: predniSONE 20 MG TABLET 40 MG PO (08:00)
[2023-10-28] MEDS: Apixaban 5 MG TABLET PO ×2 (08:00→21:26)
[2023-10-28] MEDS: buPROPion HCl XL 150 MG TAB.ER.24H PO (08:00)
[2023-10-28] MEDS: sulfaSALAzine 500 MG TABLET 1000 MG PO (08:00)
[2023-10-28] MEDS: Multivitamin TABLET 1 TAB PO (08:00)
[2023-10-28] MEDS: FLUoxetine HCl 20 MG CAPSULE 40 MG PO (08:00)
[2023-10-28] MEDS: Loratadine 10 MG TABLET PO (08:00)
[2023-10-28] MEDS: Hydroxychloroquine Sulfate 200 MG TABLET 300 MG PO (08:01)
[2023-10-28] MEDS: Nicotine 14 MG PATCH.TD24 TRANSDERMA (08:01)
[2023-10-28] MEDS: Ferrous Sulfate 324 MG TABLET.DR PO (08:01)
[2023-10-28] MEDS: Folic Acid 1 MG TABLET PO (08:01)
[2023-10-28] MEDS: 0.9 % Sodium Chloride Flush 3 ML SYRINGE IVFLUSH ×3 (08:02→22:00)
--- NOTE | 2023-10-28 12:47 | HO.PM.IMPN ---
Subjective Subjective Date of Service: 10/28/23 Interval History: Seen in follow up for chronic ulcer L 4th toe, cellulitis, CAP, osteomyelitis Interval history: Feeling better. No complaints at this time. Blood cultures negative thus far Review of Systems Review of Systems: Yes all other systems are reviewed and are negative Physical Exam Vital Signs: Vital Signs: Last Vital Signs Temp 96.8 F 10/28/23 07:20 Pulse 96 10/28/23 11:22 Resp 18 10/28/23 11:22 BP 118/59 L 10/28/23 07:20 Pulse Ox 96 10/28/23 07:20 O2 Del Method Room Air 10/28/23 07:20 BMI result Body Mass Index 24.6 Constitutional - Awake and Alert, No apparent distress Eyes - PERRLA, EOMI Cardiovascular - S1S2, RRR, No edema Respiratory - Normal lung expansion, Normal respiratory effort, No respiratory distress, rhonchi b/l lower lobes Gastrointestinal - NT / ND; +BS; No rebound or guarding Extremities - no calf tenderness bilaterally, no swelling Musculoskeletal - Normal inspection, normal ROM Skin - Warm/Dry. Faint erythema proximal half of LLE without swelling or warmth. Shallow ulceration left 4th toe without drainage Neurological - Alert & oriented x3 Psychological - Appropriate affect Objective Data Active Medications Acetaminophen (Acetaminophen 325 Mg Tablet) 650 mg PO Q6H PRN PRN Reason: Pain, Mild (Pain Scale 1-3) Last Admin: 10/27/23 11:00 Dose: 650 mg Documented By: MELITA Acetaminophen/Butalbital/Caffeine (Butalb/Acetamin/Caff 50/325/40 Tablet) 2 tab PO DAILY PRN PRN Reason: headache Albuterol Sulfate (Albuterol Sulfate (0.083%) 2.5 Mg/3 Ml Vial.Neb) 2.5 mg INHALE Q6H PRN PRN Reason: Shortness Of Breath Or Wheezing Albuterol/Ipratropium (Albuterol/Iprat 2.5/0.5mg 3 Ml Ampul.Neb) 3 ml INHALE RQ4H WHILE AWAKE [facility] Last Admin: 10/28/23 11:22 Dose: 3 ml Documented By: KULWINDER Apixaban (Apixaban 5 Mg Tablet) 5 mg PO BID [facility] [place] Last Admin: 10/28/23 08:00 Dose: 5 mg Documented By: MALIK Bupropion HCl (Bupropion Hcl Xl 150 Mg Tab.Er.24h) 150 mg PO DAILY [facility] [place] Last Admin: 10/28/23 08:00 Dose: 150 mg Documented By: MALIK Famotidine (Famotidine 20 Mg Tablet) 20 mg PO DAILY@0630 [facility] [place] Last Admin: 10/28/23 05:55 Dose: 20 mg Documented By: ASHWINI Ferrous Sulfate (Ferrous Sulfate 324 Mg Tablet.Dr) 324 mg PO DAILY [facility] [place] Last Admin: 10/28/23 08:01 Dose: 324 mg Documented By: MALIK Fluoxetine HCl (Fluoxetine Hcl 20 Mg Capsule) 40 mg PO DAILY [facility] [place] Last Admin: 10/28/23 08:00 Dose: 40 mg Documented By: MALIK Fluticasone Propionate (Fluticasone Propionate 250 Mcg Blst.W.Dev) 1 puff INHALE RBID [facility] [place] Last Admin: 10/28/23 07:33 Dose: 1 puff Documented By: KULWINDER Folic Acid (Folic Acid 1 Mg Tablet) 1 mg PO DAILY [facility] [place] Last Admin: 10/28/23 08:01 Dose: 1 mg Documented By: MALIK Guaifenesin (Guaifenesin 200 Mg/10 Ml 10 Ml Liquid) 10 ml PO Q4H PRN PRN Reason: Cough Hydroxychloroquine Sulfate (Hydroxychloroquine Sulfate 200 Mg Tablet) 100 mg PO BEDTIME [facility] [place] Last Admin: 10/27/23 20:48 Dose: 100 mg Documented By: MARILIN Hydroxychloroquine Sulfate (Hydroxychloroquine Sulfate 200 Mg Tablet) 300 mg PO DAILY [facility] [place] Last Admin: 10/28/23 08:01 Dose: 300 mg Documented By: MALIK Piperacillin Sod/Tazobactam (Sod 4.5 gm/ Sodium Chloride) 100 mls @ 200 mls/hr IV Q6H [facility] [place] Last Infusion: 10/28/23 12:04 Dose: Infused Documented By: MALIK Vancomycin HCl 1,000 mg/ (Sodium Chloride) 270 mls @ 270 mls/hr IV Q12H [facility] [place] Last Infusion: 10/28/23 05:43 Dose: Infused Documented By: ASHWINI Levothyroxine Sodium (Levothyroxine Sodium 175 Mcg Tablet) 175 mcg PO DAILY@0600 [facility] [place] Last Admin: 10/28/23 05:55 Dose: 175 mcg Documented By: ASHWINI Loratadine (Loratadine 10 Mg Tablet) 10 mg PO DAILY [facility] [place] Last Admin: 10/28/23 08:00 Dose: 10 mg Documented By: MALIK Lorazepam (Lorazepam 1 Mg Tablet) 1 mg PO BID PRN PRN Reason: anxiety Last Admin: 10/27/23 11:00 Dose: 1 mg Documented By: MELITA Multivitamins/Vitamin C (Multivitamin Tablet) 1 tab PO DAILY [facility] [place] Last Admin: 10/28/23 08:00 Dose: 1 tab Documented By: MALIK Nicotine (Nicotine 14 Mg Patch.Td24) 14 mg TRANSDERMA DAILY [facility] [place] Last Admin: 10/28/23 08:01 Dose: 14 mg Documented By: MALIK Nortriptyline HCl (Nortriptyline Hcl 25 Mg Capsule) 75 mg PO BEDTIME [facility] [place] Last Admin: 10/27/23 20:47 Dose: 75 mg Documented By: MARILIN Ondansetron HCl (Ondansetron Hcl 4 Mg/2 Ml Vial) 4 mg IVPUSH Q8H PRN PRN Reason: Nausea and Vomiting Pharmacy Consult (Consult Rx Vancomycin Dosing) 1 each MISCELLANE DAILY PRN PRN Reason: Consult order Pravastatin Sodium (Pravastatin Sodium 40 Mg Tablet) 40 mg PO BEDTIME [facility] [place] Last Admin: 10/27/23 20:46 Dose: 40 mg Documented By: MARILIN Prednisone (Prednisone 20 Mg Tablet) 40 mg PO DAILY [facility] [place] Last Admin: 10/28/23 08:00 Dose: 40 mg Documented By: MALIK Senna (Sennosides 8.6 Mg Tablet) 17.2 mg PO BEDTIME PRN PRN Reason: Constipation Sodium Chloride (0.9 % Sodium Chloride Flush 3 Ml Syringe) 3 ml IVFLUSH QSHIFT [facility] [place] Last Admin: 10/28/23 08:02 Dose: 3 ml Documented By: MALIK Sulfasalazine (Sulfasalazine 500 Mg Tablet) 1,000 mg PO DAILY [facility] [place] Last Admin: 10/28/23 08:00 Dose: 1,000 mg Documented By: MALIK Sulfasalazine (Sulfasalazine 500 Mg Tablet) 500 mg PO BEDTIME [facility] [place] Last Admin: 10/27/23 20:49 Dose: 500 mg Documented By: MARILIN Tiotropium Mcdonough (Tiotropium Mcd[place]ough 2.5 Mcg 1 Puff/2.5 Mcg Mist.Inhal) 1 puff INHALE DAILY [facility] [place] Last Admin: 10/28/23 07:33 Dose: 1 puff Documented By: KULWINDER Tramadol HCl (Tramadol Hcl 50 Mg Tablet) 50 mg PO BEDTIME PRN PRN Reason: Pain, Moderate(Pain Scale 4-6) Labs 10/27/23 05:49 10/28/23 06:01 Labs: Laboratory Results - last 24 hr 10/28/23 06:01 Hold Purple Top SEE NOTE Estim Creat Clear Calc 85.3 Estimated GFR > 60 Microbiology Microbiology Results: Microbiology 10/26/23 12:10 Blood Culture - Preliminary Blood - Venous No growth after 24 hours. 10/26/23 10:46 Blood Culture - Preliminary Blood - Venous No growth after 24 hours. Assessment and Plan (1) Osteomyelitis of fourth toe of left foot: Status: Acute (2) Pneumonia: Status: Acute (3) Cellulitis: Status: Acute (4) COPD exacerbation: Status: Acute Plan 48-year-old female with history of COPD, rheumatoid arthritis on chronic prednisone, SLE on hydroxychloroquine, fibromyalgia, hypothyroidism, history of CVA, peripheral arterial disease, history of C diff, Charcot joint of foot who is a current 1/2 pack per day cigarette smoker admitted for extensive is cellulitis of the left lower extremity and right lower lobe pneumonia and COPD exacerbation. # cellulitis left lower extremity with chronic stage II non pressure ulcer of the left 4th toe -extensive in immunocompromised pt -no leukocytosis or SIRS criteria. CRP 4.35, ESR 30 -venous duplex negative for DVT -MR left foot w/wo contrast to evaluate for osteomyelitis -IV vanco/cefepime (initiated 10/27- previously on cefazolin 10/26- dc'd due to new osetomyelitis) -Arterial doppler LLE negative for any hemodynamically significant PAD -ID consult -wound RN consult -follow CBC, cultures (negative thus far) # acute right lower lobe pneumonia -IV cefepime and vanco (previously on cefazolin and doxycycline as above) -strep pneumo antigen, Legionella antigen, sputum culture pending -symptomatic management -follow CBC, cultures # acute COPD exacerbation- improving -no hypoxia -IV methylprednisolone changed to PO prednisone 40mg qd (10/28) -DuoNebs q.4h -albuterol p.r.n. -continue maintenance inhalers -ABX as above # hypothyroidism -continue levothyroxine # SLE -stable, continue hydroxychloroquine # rheumatoid arthritis -stable. On increased dose prednisone as above # peripheral arterial disease -continue Eliquis # mood disorder unspecified -continue home meds DVT prophylaxis-Eliquis Full code Given immunocompromised status and extensive cellulitis of >50% left left lower extremity with new osteomyelitis left toes, patient requires ongoing inpatient stay of at least 2 midnights for IV antibiotics awaiting final cultures and expert consultation for possible midline placement and taxi cab driver abx. Quality Stroke Does the patient have a stroke diagnosis?: No VTE Prior VTE?: No VTE Risk Level:: Medical - moderate - high VTE Device Contraindication: Treatment Not Indicated VTE Drug Contraindication: N/A - Med Ordered
--- NOTE | 2023-10-28 14:01 | MHC.CM.PN ---
EMR REVIEWED AND PER MD ROUNDS PT NOT MEDICALLY CLEARED FOR DC. PENDING ID CONSULT, WILL LIKELY NEED A MIDLINE PLACED TO GO HOME WITH IV ABX. CM MET WITH PATIENT TO DISCUSS - PATIENT FEELS SHE CAN MANAGE THIS WITH THE HELP OF PEDIATRIC NEPHROLOGIST AND ADULT CHILDREN. HAS USED [facility] IN THE PAST AND PREFERS TO GO WITH THEM AGAIN. REFERRALS SENT FOR [facility] AND [facility]. CM WILL CONTINUE TO FOLLOW.
--- NOTE | 2023-10-28 14:13 | HO.WOUND ---
Wound Consult: Initial 48yr old female admitted to [facility] on 10/26/23 16:22 - See progress notes and H&P for detailed history. Wound consult placed for Left 4th and 5th toe wounds. See Chart for detailed history - pt reports she has had previous wounds to both feet and lower legs and has treated with the wound clinic in the past - chart reviews last visit was 10/2022. Pt reports pain and tenderness to left toes. Left 4th toe Etiology: Stage 2 Pressure Injury Present on Admission Measurements: 0.5cm x 0.3cm x 0.2cm Wound Bed: red moist clean wound bed Drainage / Odor: Mild odor noted - serosang drainage noted - dried serous drainage noted on wound edge - No purulence drainage noted Edges: ?callused and abnormal formation leading to friction and pressure to 3rd toe Ginger wound: ?mild erythema, no Induration, Fluctuance or Warmth noted Pain: Mild Pain and tenderness reported by pt during assessment Goals of Treatment: ? Moist wound healing with Durafiber AG for moisture management with antimicrobial properties. Of note 5th toe assessed - no wound noted - tissue remains intact. No topical intervention needed at this time. Recommendations: 1. Turn and Reposition every 2 hours and as needed for patient comfort. 2. Off Load all bony prominences with use of pillows and heel boots if needed.? Apply Preventative foams where needed. ? 3. Monitor for incontinence and moisture control, use barrier creams when needed for prevention and treatment. 4. Provide adequate and supplemental nutrition. 5. Order or Continue low air loss mattress. 6. Left 4th Toe - Cleanse with NS, pat dry. Apply cut to size Durafiber AG to wound bed cover with dry gauze, secure in place with tape. Change Daily. Consider follow up to outpt wound clinic at time of d/c. Re-consult wound care Nurse for wound deterioration or wound changes.
--- NOTE | 2023-10-28 14:42 | MHC.CLN ---
NUTRITION WOUND DOCUMENTATION REVIEWED. DX OSTEOMYELITIS OF 4TH TOE, LEFT FOOT. DIET=REGULAR. NO ADDITIONAL NUTRITION INTERVENTIONS AT THIS TIME.
[2023-10-28] MEDS: Nortriptyline HCl 25 MG CAPSULE 75 MG PO (21:25)
[2023-10-28] MEDS: Hydroxychloroquine Sulfate 200 MG TABLET 100 MG PO (21:26)
[2023-10-28] MEDS: Pravastatin Sodium 40 MG TABLET PO (21:26)
[2023-10-28] MEDS: sulfaSALAzine 500 MG TABLET PO (21:26)
[2023-10-29] VITALS (7 sets, daily range): BP systolic 113–139; BP diastolic 61–67; PULSE 79–91; RESP 16–18; TEMP 36.3–37.3; O2SAT 91–97
[2023-10-29] MEDS: Piperacillin Sodium/Tazobactam 4.5 GM in 0.9 % Sodium Chloride 100 ML IV ×4 (04:00→21:54)
[2023-10-29] MEDS: vancomycin HCL 1,000 MG in 0.9 % Sodium Chloride 250 ML 270 MG IV (05:17)
[2023-10-29] MEDS: Levothyroxine Sodium 175 MCG TABLET PO (05:40)
[2023-10-29] MEDS: Famotidine 20 MG TABLET PO (05:40)
[2023-10-29 07:33] LABS: MANUAL DIFF FLAG NO
[2023-10-29 07:39] LABS: Basophils Percent Auto 0.3 % (0-2); Eosinophils Absolute Auto 0.4 X10*3/uL (0.0-0.4); Eosinophils Percent Auto 3.6 % (0-4); Hemoglobin 9.1 g/dl (12.0-16.0); Imm Gran Abs Auto 0.04 X10*3/uL (0.00-0.03); Imm Gran Pct Auto 0.4 % (0.0-0.4); Lymphocytes Absolute Auto 1.8 X10*3/uL (1.2-4.9); Lymphocytes Percent Auto 17.4 % (20-40); Mean Corpuscular HGB Conc 29.4 g/dl (31.0-35.0); Mean Corpuscular Hemoglobin 24.9 pg (27.0-33.0); Mean Corpuscular Volume 84.7 fL (80.0-98.0); Mean Platelet Volume 9.6 fL (9.4-12.3); Monocytes Percent Auto 10.1 % (2-11); Neutrophils Absolute Auto 6.9 x10*3/uL (2.0-8.3); Neutrophils Percent Auto 68.2 % (45-73); Platelet Count 188 X10*3/uL (160-400); Red Blood Count 3.66 X10*6/uL (4.20-5.50); Red Cell Distribution Width 13.6 % (11.0-16.0); White Blood Count 10.1 X10*3/uL (4.8-10.8)
[2023-10-29] MEDS: predniSONE 20 MG TABLET 40 MG PO (07:48)
[2023-10-29] MEDS: 0.9 % Sodium Chloride Flush 3 ML SYRINGE IVFLUSH ×3 (07:48→21:55)
[2023-10-29] MEDS: FLUoxetine HCl 20 MG CAPSULE 40 MG PO (07:48)
[2023-10-29] MEDS: Multivitamin TABLET 1 TAB PO (07:48)
[2023-10-29] MEDS: Hydroxychloroquine Sulfate 200 MG TABLET 300 MG PO (07:49)
[2023-10-29] MEDS: sulfaSALAzine 500 MG TABLET 1000 MG PO (07:49)
[2023-10-29] MEDS: Apixaban 5 MG TABLET PO ×2 (07:49→20:37)
[2023-10-29] MEDS: Nicotine 14 MG PATCH.TD24 TRANSDERMA (07:50)
[2023-10-29] MEDS: buPROPion HCl XL 150 MG TAB.ER.24H PO (07:50)
[2023-10-29] MEDS: Ferrous Sulfate 324 MG TABLET.DR PO (07:50)
[2023-10-29] MEDS: Loratadine 10 MG TABLET PO (07:50)
[2023-10-29] MEDS: Folic Acid 1 MG TABLET PO (07:50)
[2023-10-29 07:53] LABS: Anion Gap 9 (12-20); Blood Urea Nitrogen 11 mg/dL (9-16); Calcium 8.3 mg/dL (8.4-10.2); Carbon Dioxide 28 mmol/L (22-29); Chloride 108 mmol/L (96-108); Estimated Glomerular Filt Rate > 60; Glucose Random 85 mg/dL (60-115); Potassium 3.7 mmol/L (3.3-5.1); Sodium 141 mmol/L (135-145)
[2023-10-29] MEDS: Tiotropium Bromide 2.5 mcg 1 PUFF/2.5 MCG MIST.INHAL INHALE (08:07)
[2023-10-29] MEDS: Albuterol/Iprat 2.5/0.5MG 3 ML AMPUL.NEB INHALE ×3 (08:07→19:40)
[2023-10-29] MEDS: Fluticasone Propionate 250 MCG BLST.W.DEV 1 PUFF INHALE ×2 (08:07→19:40)
--- NOTE | 2023-10-29 09:22 | P.PNIM_ITS ---
Subjective Subjective Date of Service: 10/29/23 Interval History: Seen in follow up for chronic ulcer L 4th toe, cellulitis, CAP, osteomyelitis Interval history: Feeling better. No complaints at this time. Blood cultures negative thus far Review of Systems Review of Systems: Yes all other systems are reviewed and are negative Physical Exam 2 Vital Signs: Vital Signs: Last Vital Signs Temp 97.3 F 10/29/23 07:20 Pulse 91 10/29/23 08:09 Resp 16 10/29/23 08:09 BP 118/64 10/29/23 07:20 Pulse Ox 92 10/29/23 07:20 O2 Del Method Room Air 10/29/23 07:20 BMI result Body Mass Index 24.6 Constitutional - Awake and Alert, No apparent distress Eyes - PERRLA, EOMI Cardiovascular - S1S2, RRR, No edema Respiratory - Normal lung expansion, Normal respiratory effort, No respiratory distress, rhonchi b/l lower lobes Gastrointestinal - NT / ND; +BS; No rebound or guarding Extremities - no calf tenderness bilaterally, no swelling Musculoskeletal - Normal inspection, normal ROM Skin - Warm/Dry. Faint erythema proximal half of LLE without swelling or warmth. Shallow ulceration left 4th toe without drainage Neurological - Alert & oriented x3 Psychological - Appropriate affect Objective Data Active Medications Acetaminophen (Acetaminophen 325 Mg Tablet) 650 mg PO Q6H PRN PRN Reason: Pain, Mild (Pain Scale 1-3) Last Admin: 10/27/23 11:00 Dose: 650 mg Documented By: MELITA Acetaminophen/Butalbital/Caffeine (Butalb/Acetamin/Caff 50/325/40 Tablet) 2 tab PO DAILY PRN PRN Reason: headache Albuterol Sulfate (Albuterol Sulfate (0.083%) 2.5 Mg/3 Ml Vial.Neb) 2.5 mg INHALE Q6H PRN PRN Reason: Shortness Of Breath Or Wheezing Albuterol/Ipratropium (Albuterol/Iprat 2.5/0.5mg 3 Ml Ampul.Neb) 3 ml INHALE RQ4H WHILE AWAKE [facility] Last Admin: 10/29/23 08:07 Dose: 3 ml Documented By: SAMIR Apixaban (Apixaban 5 Mg Tablet) 5 mg PO BID [facility] Last Admin: 10/29/23 07:49 Dose: 5 mg Documented By: MALIK Bupropion HCl (Bupropion Hcl Xl 150 Mg Tab.Er.24h) 150 mg PO DAILY [facility] Last Admin: 10/29/23 07:50 Dose: 150 mg Documented By: MALIK Famotidine (Famotidine 20 Mg Tablet) 20 mg PO DAILY@0630 [facility] Last Admin: 10/29/23 05:40 Dose: 20 mg Documented By: ERENDIRA Ferrous Sulfate (Ferrous Sulfate 324 Mg Tablet.Dr) 324 mg PO DAILY [facility] Last Admin: 10/29/23 07:50 Dose: 324 mg Documented By: MALIK Fluoxetine HCl (Fluoxetine Hcl 20 Mg Capsule) 40 mg PO DAILY [facility] Last Admin: 10/29/23 07:48 Dose: 40 mg Documented By: MALIK Fluticasone Propionate (Fluticasone Propionate 250 Mcg Blst.W.Dev) 1 puff INHALE RBID [facility] Last Admin: 10/29/23 08:07 Dose: 1 puff Documented By: SAMIR Folic Acid (Folic Acid 1 Mg Tablet) 1 mg PO DAILY [facility] Last Admin: 10/29/23 07:50 Dose: 1 mg Documented By: MALIK Guaifenesin (Guaifenesin 200 Mg/10 Ml 10 Ml Liquid) 10 ml PO Q4H PRN PRN Reason: Cough Hydroxychloroquine Sulfate (Hydroxychloroquine Sulfate 200 Mg Tablet) 100 mg PO BEDTIME [facility] Last Admin: 10/28/23 21:26 Dose: 100 mg Documented By: ERENDIRA Hydroxychloroquine Sulfate (Hydroxychloroquine Sulfate 200 Mg Tablet) 300 mg PO DAILY [facility] Last Admin: 10/29/23 07:49 Dose: 300 mg Documented By: MALIK Piperacillin Sod/Tazobactam (Sod 4.5 gm/ Sodium Chloride) 100 mls @ 200 mls/hr IV Q6H [facility] Last Infusion: 10/29/23 04:30 Dose: Infused Documented By: ERENDIRA Vancomycin HCl 1,000 mg/ (Sodium Chloride) 270 mls @ 270 mls/hr IV Q12H [facility] Last Infusion: 10/29/23 06:49 Dose: Infused Documented By: ERENDIRA Levothyroxine Sodium (Levothyroxine Sodium 175 Mcg Tablet) 175 mcg PO DAILY@0600 [facility] Last Admin: 10/29/23 05:40 Dose: 175 mcg Documented By: ERENDIRA Loratadine (Loratadine 10 Mg Tablet) 10 mg PO DAILY [facility] Last Admin: 10/29/23 07:50 Dose: 10 mg Documented By: MALIK Lorazepam (Lorazepam 1 Mg Tablet) 1 mg PO BID PRN PRN Reason: anxiety Last Admin: 10/27/23 11:00 Dose: 1 mg Documented By: MELITA Multivitamins/Vitamin C (Multivitamin Tablet) 1 tab PO DAILY [facility] Last Admin: 10/29/23 07:48 Dose: 1 tab Documented By: MALIK Nicotine (Nicotine 14 Mg Patch.Td24) 14 mg TRANSDERMA DAILY [facility] Last Admin: 10/29/23 07:50 Dose: 14 mg Documented By: MALIK Nortriptyline HCl (Nortriptyline Hcl 25 Mg Capsule) 75 mg PO BEDTIME [facility] Last Admin: 10/28/23 21:25 Dose: 75 mg Documented By: ERENDIRA Ondansetron HCl (Ondansetron Hcl 4 Mg/2 Ml Vial) 4 mg IVPUSH Q8H PRN PRN Reason: Nausea and Vomiting Pharmacy Consult (Consult Rx Vancomycin Dosing) 1 each MISCELLANE DAILY PRN PRN Reason: Consult order Pravastatin Sodium (Pravastatin Sodium 40 Mg Tablet) 40 mg PO BEDTIME [facility] Last Admin: 10/28/23 21:26 Dose: 40 mg Documented By: ERENDIRA Prednisone (Prednisone 20 Mg Tablet) 40 mg PO DAILY [facility] Last Admin: 10/29/23 07:48 Dose: 40 mg Documented By: MALIK Senna (Sennosides 8.6 Mg Tablet) 17.2 mg PO BEDTIME PRN PRN Reason: Constipation Sodium Chloride (0.9 % Sodium Chloride Flush 3 Ml Syringe) 3 ml IVFLUSH QSHIFT [facility] Last Admin: 10/29/23 07:48 Dose: 3 ml Documented By: MALIK Sulfasalazine (Sulfasalazine 500 Mg Tablet) 1,000 mg PO DAILY [facility] Last Admin: 10/29/23 07:49 Dose: 1,000 mg Documented By: MALIK Sulfasalazine (Sulfasalazine 500 Mg Tablet) 500 mg PO BEDTIME [facility] Last Admin: 10/28/23 21:26 Dose: 500 mg Documented By: ERENDIRA Tiotropium [place] (Tiotropium [place] 2.5 Mcg 1 Puff/2.5 Mcg Mist.Inhal) 1 puff INHALE DAILY [place] Last Admin: 10/29/23 08:07 Dose: 1 puff Documented By: SAMIR Tramadol HCl (Tramadol Hcl 50 Mg Tablet) 50 mg PO BEDTIME PRN PRN Reason: Pain, Moderate(Pain Scale 4-6) Labs 10/29/23 06:28 10/29/23 06:28 Labs: Laboratory Results - last 24 hr 10/28/23 10/29/23 13:53 06:28 MCV 84.7 MCH 24.9 L MCHC 29.4 L RDW 13.6 Plt Count 188 MPV 9.6 Immature Gran % (Auto) 0.4 Neut % (Auto) 68.2 Lymph % (Auto) 17.4 L [place] % (Auto) 10.1 Eos % (Auto) 3.6 Baso % (Auto) 0.3 Lymph # (Auto) 1.8 [place] # (Auto) 1.0 Eos # (Auto) 0.4 Baso # (Auto) 0.0 Abs Immat Gran (auto) 0.04 H Absolute Neuts (auto) 6.9 Absolute Nucleated RBC 0.000 Nucleated RBC % (auto) 0.0 Anion Gap 9 L Estim Creat Clear Calc 84.0 Estimated GFR > 60 Random Glucose 85 Calcium 8.3 L Random Vancomycin 17.0 Microbiology Microbiology Results: Microbiology 10/26/23 12:10 Blood Culture - Preliminary Blood - Venous No growth after 48 hours. 10/26/23 10:46 Blood Culture - Preliminary Blood - Venous No growth after 48 hours. Assessment and Plan (1) Osteomyelitis of fourth toe of left foot: Status: Acute (2) Pneumonia: Status: Acute (3) Cellulitis: Status: Acute (4) COPD exacerbation: Status: Acute Plan 48F PMH COPD, rheumatoid arthritis on chronic prednisone, SLE on hydroxychloroquine, fibromyalgia, hypothyroidism, history of CVA, peripheral arterial disease, history of C diff, Charcot joint of foot who is a current 1/2 pack per day cigarette smoker admitted for extensive is cellulitis of the left lower extremity and right lower lobe pneumonia and COPD exacerbation. cellulitis left lower extremity with chronic stage II non pressure ulcer of the left 4th toe and osteomyelitis on mri extensive in immunocompromised pt venous duplex negative for DVT IV vanco/cefepime (initiated 10/27- previously on cefazolin 10/26- dc'd due to new osetomyelitis) Arterial doppler LLE negative for any hemodynamically significant PAD ID eval acute right lower lobe pneumonia complicated by copd with acute decompensation IV cefepime and vanco (previously on cefazolin and doxycycline as above) strep pneumo antigen, Legionella antigen, sputum culture pending prednisone, nebs hypothyroidism levothyroxine SLE hydroxychloroquine rheumatoid arthritis On increased dose prednisone as above peripheral arterial disease continue Eliquis mood disorder unspecified wellbutrin DVT prophylaxis-Eliquis Full code reason for continued hospitalization:iv abx for OM, Quality Stroke Does the patient have a stroke diagnosis?: No VTE Prior VTE?: No VTE Risk Level:: Medical - moderate - high VTE Device Contraindication: Treatment Not Indicated VTE Drug Contraindication: N/A - Med Ordered
[2023-10-29 14:47] LABS: Vancomycin Trough 19.5 mcg/mL (10.0-20.0)
--- NOTE | 2023-10-29 14:52 | HE.PHANOTE ---
RE: vanco Trough on 10/29 came back at 19.5mg/L; changed dose to 500mg Q8H with predicted AUC of 466mg/L, trough of 15.7 mg/L. Next level to be drawn after 3 doses on 10/30 @1400
--- NOTE | 2023-10-29 15:00 | MHC.CM.PN ---
PER MD ROUNDS NOT MEDICALLY CLEARED FOR DC. AWAITING ID INPUT AND MIDLINE. PLAN TO DC HOME WITH [facility] AND [facility]. [facility] SCHEDULED TO COME ON SITE FOR TEACHING SESSION AT 1600 TODAY. 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 CM WILL CONTINUE TO FOLLOW.
[2023-10-29] MEDS: vancomycin HCL 500 MG in 0.9 % Sodium Chloride 100 ML 110 MG IV (16:50)
[2023-10-29] MEDS: Pravastatin Sodium 40 MG TABLET PO (20:37)
[2023-10-29] MEDS: sulfaSALAzine 500 MG TABLET PO (20:37)
[2023-10-29] MEDS: Hydroxychloroquine Sulfate 200 MG TABLET 100 MG PO (20:37)
[2023-10-29] MEDS: Nortriptyline HCl 25 MG CAPSULE 75 MG PO (20:37)
[2023-10-30] MEDS: vancomycin HCL 500 MG in 0.9 % Sodium Chloride 100 ML 110 MG IV ×2 (00:02→09:09)
[2023-10-30 03:29] LABS: Strep Pneumo Ag urine Not Detected (Not Detected)
[2023-10-30 03:55] VITALS: BP 137/68; PULSE 77; RESP 16; TEMP 36; O2SAT 93
[2023-10-30] MEDS: Piperacillin Sodium/Tazobactam 4.5 GM in 0.9 % Sodium Chloride 100 ML IV ×2 (04:14→09:09)
[2023-10-30] MEDS: Famotidine 20 MG TABLET PO (05:43)
[2023-10-30] MEDS: Levothyroxine Sodium 175 MCG TABLET PO (05:43)
[2023-10-30 06:46] LABS: Hematocrit 31.6 % (37.0-47.0); Hemoglobin 9.4 g/dl (12.0-16.0); Mean Corpuscular HGB Conc 29.7 g/dl (31.0-35.0); Mean Corpuscular Hemoglobin 25.3 pg (27.0-33.0); Mean Corpuscular Volume 84.9 fL (80.0-98.0); Mean Platelet Volume 9.1 fL (9.4-12.3); Platelet Count 201 X10*3/uL (160-400); Red Blood Count 3.72 X10*6/uL (4.20-5.50); Red Cell Distribution Width 13.5 % (11.0-16.0); White Blood Count 9.5 X10*3/uL (4.8-10.8)
[2023-10-30 07:03] LABS: Anion Gap 7 (12-20); Blood Urea Nitrogen 14 mg/dL (9-16); Calcium 8.6 mg/dL (8.4-10.2); Carbon Dioxide 30 mmol/L (22-29); Chloride 108 mmol/L (96-108); Creatinine Clr Calc Pharmacy 76.2; Estimated Glomerular Filt Rate > 60; Glucose Fasting 99 mg/dL (60-99); Potassium 3.7 mmol/L (3.3-5.1); Sodium 141 mmol/L (135-145)
[2023-10-30 07:28] VITALS: BP 156/86; PULSE 93; RESP 18; TEMP 36.1; O2SAT 94
[2023-10-30] MEDS: Albuterol/Iprat 2.5/0.5MG 3 ML AMPUL.NEB INHALE ×2 (08:02→11:57)
[2023-10-30] MEDS: Tiotropium Bromide 2.5 mcg 1 PUFF/2.5 MCG MIST.INHAL INHALE (08:03)
[2023-10-30] MEDS: Fluticasone Propionate 250 MCG BLST.W.DEV 1 PUFF INHALE (08:03)
[2023-10-30 08:04] VITALS: PULSE 93; RESP 18; O2SAT 94
[2023-10-30] MEDS: Nicotine 14 MG PATCH.TD24 TRANSDERMA (09:10)
[2023-10-30] MEDS: 0.9 % Sodium Chloride Flush 3 ML SYRINGE IVFLUSH (09:10)
[2023-10-30] MEDS: Loratadine 10 MG TABLET PO (09:11)
[2023-10-30] MEDS: buPROPion HCl XL 150 MG TAB.ER.24H PO (09:11)
[2023-10-30] MEDS: sulfaSALAzine 500 MG TABLET 1000 MG PO (09:11)
[2023-10-30] MEDS: Hydroxychloroquine Sulfate 200 MG TABLET 300 MG PO (09:11)
[2023-10-30] MEDS: predniSONE 20 MG TABLET 40 MG PO (09:12)
[2023-10-30] MEDS: Apixaban 5 MG TABLET PO (09:12)
[2023-10-30] MEDS: Ferrous Sulfate 324 MG TABLET.DR PO (09:12)
[2023-10-30] MEDS: FLUoxetine HCl 20 MG CAPSULE 40 MG PO (09:12)
[2023-10-30] MEDS: Folic Acid 1 MG TABLET PO (09:12)
[2023-10-30] MEDS: Multivitamin TABLET 1 TAB PO (09:12)
--- NOTE | 2023-10-30 11:21 | P.PICC_ITS ---
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 Following completion of [place] Protocol the skin and soft tissues were anesthetized with 1% Lidocaine plain. Using ultrasound guidance, the right bascilic vein access was obtained in a second attempt by this RN after 2 attempts by Nicky Desai RN. Over an 0.018 wire through peel- away sheath, a 4 zambian single lumen PASV PICC line was positioned. Catheter length is 39 cm internal length, external length at the 0 cm external noe, for a total trimmed length of 39 cm. The procedure was performed in S272. Tip verification was performed by Candie Alexander with Sherlock 3CG. Tip located in SVC. Ultrasound was used to document vein patency and for needle entry. A formal ultrasound picture and cardiac rhythm strip was recorded. [employer] Program Manager has released the line for use and it is currently dressed with a StatLock, Tegaderm, and CHG disc. Verification has been performed for blood return and line patency. Arm Circumference: 21.5 cm Equipment: Quantitative Medicine PowerPICC SOLO Catheter with Sherlock 3CG Tip Catheter Type: 4 [place]ambian single lumen PASV Lot #: [id number]
[2023-10-30 11:57] VITALS: PULSE 95; RESP 18; O2SAT 90
[2023-10-30] MEDS: Ertapenem Sodium 1 GM in 0.9 % Sodium Chloride 50 ML IV (12:03)
--- NOTE | 2023-10-30 12:26 | P.DS_ITS ---
DS: Providers Provider Date of Service: 10/30/23 Date of admission: 10/26/23 16:22 Primary care physician: Barbie Brown MD Consults: 10/27/23 15:25 Consult to Infectious Diseases Routine Consulting Provider: [facility] Infectious Disease Reason for consultation: osteomyelitis L toe 10/28/23 08:12 Consult to Wound Care Routine Reason for consultation: 4th and 5th toe ulcer DS: Diagnosis Discharge Diagnosis (1) Osteomyelitis of fourth toe of left foot: Status: Acute (2) Pneumonia: Status: Acute (3) Cellulitis: Status: Acute (4) COPD exacerbation: Status: Acute DS: Summary Hospital Course Hospital Course: Admission note HPI 48-year-old female with history of COPD, rheumatoid arthritis on chronic prednisone, SLE on hydroxychloroquine, fibromyalgia, hypothyroidism, history of CVA, peripheral arterial disease, history of C diff, Charcot joint of foot who is a current 1/2 pack per day cigarette smoker who presented to the ED for evaluation of productive cough with yellow sputum ongoing for 5 days, wheezing, and swelling of the left lower extremity also ongoing for 5 days. She states she has a chronic ulcer of the left 4th toe that she was previously following with wound care for. For the last 5 days, has had significant erythema and swelling of the left lower extremity from the foot to the knee. Denies any purulent drainage. She has also had wheezing with limited improvement from albuterol inhaler associated with the productive cough. Denies any fevers, chills, congestion, sore throat, abdominal pain, nausea, vomiting, diarrhea, shortness of breath, lightheadedness, headache, or chest pain. Denies any sick contacts. On arrival, vital signs stable. There is no leukocytosis. She has a stable normocytic anemia with H/H 11.2/36.2%. Renal function electrolyte levels normal. Lactic acid 1.0. Troponin within normal limits, BNP 42. CRP 4.35, ESR 30. Negative for COVID-19, RSV, influenza. Venous duplex left lower extremity negative for DVT. Chest x-ray shows chronic airways disease as well as chronic interstitial and airspace opacities. There is increased airspace opacities in the right lower lobe compatible with acute pneumonia. In the ED given 1 g IV ceftriaxone. Hospital course # Cellulitis left lower extremity with chronic stage II non pressure ulcer of the left 4th toe and osteomyelitis on MRI. extensive in immunocompromised patient. venous duplex negative for DVT. Treated with IV vanco/cefepime (initiated 10/27- previously on cefazolin 10/26- dc'd due to new osetomyelitis). Arterial doppler LLE negative for any hemodynamically significant PAD. evaluated by wound care team who will continue to follow as outpatient. blood cultures remained negative. She was evaluated by ID who recommended to finish 6 weeks of IV Ertapenem. A PICC line was placed. Plan to finish Antibiotics by 12/06/2022. # Acute right lower lobe pneumonia complicated by copd with acute decompensation Treated with IV cefepime and vanco (previously on cefazolin and doxycycline as above) along with Steroids and nebulizers with good response as she was weaned off Oxygen supplement and was able to ambulate on room air with no reported SOB or dyspnea. To follow up with wound clinic as outpatient To follow up with dr Tabor in 4-6 weeks Continue antibiotic as prescribed come back to the hospital for any fever or increase erythema or drainage from the toe. Time Attestation Discharge coordination time: Greater than 30 minutes Quality: Safe Use of Opioids Does Pt have an Active Cancer Diagnosis on the Problem List?: No Quality: Stroke Does the patient have a stroke diagnosis?: No Physical Exam Vital Signs: Vital Signs: Last Vital Signs Temp 97.0 F 10/30/23 07:28 Pulse 95 10/30/23 11:57 Resp 18 10/30/23 11:57 BP 156/86 H 10/30/23 07:28 Pulse Ox 94 10/30/23 07:28 O2 Del Method Room Air 10/30/23 07:28 BMI result Body Mass Index 24.6 Const: Other: Constitutional : Awake, interactive, not in distress Neck : Normal inspection, Supple Cardiovascular : RRR, no JVP, no lower extremity edema Respiratory : good bilateral air entry, no crackles, LLL fine rhonchi Gastrointestinal: soft, lax, Normal bowel sounds, Non tender Skin : Warm, Dry, LLE clearing erythema with no warmth or swelling. shallow Left 4th toe ulcer with no drainage. Neurological : Alert & oriented x3, No focal deficit DS: Data Data Completed and Pending Completed studies during hospitalization [Text1]: Procedures Assistance with Respiratory Ventilation, Less than 24 Consecutive Hours, Continuous Positive Airway Pressure (11/25/21) Drainage of Right Elbow Bursa and Ligament, Open Approach (11/08/22) Excision of Left Lower Leg Subcutaneous Tissue and Fascia, Open Approach, Diagnostic (08/31/20) Insertion of Endotracheal Airway into Trachea, Via Natural or Artificial Opening Endoscopic (11/25/21) Insertion of Infusion Device into Superior Vena Cava, Percutaneous Approach (11/25/21) Introduction of Baricitinib into Mouth and Pharynx, External Approach, [employer] 6 (11/25/21) Introduction of Remdesivir Anti-infective into Peripheral Vein, Percutaneous Approach, [employer] 5 (11/25/21) Introduction of Vasopressor into Peripheral Vein, Percutaneous Approach (11/25/21) Respiratory Ventilation, 24-96 Consecutive Hours (11/25/21) Respiratory Ventilation, Greater than 96 Consecutive Hours (11/25/21) Transfusion of Nonautologous Red Blood Cells into Peripheral Vein, Percutaneous Approach (11/25/21) Labs on day of discharge: Laboratory Results - last 24 hr 10/26/23 10/29/23 10/30/23 20:11 14:18 06:20 WBC 9.5 RBC 3.72 L Hgb 9.4 L Hct 31.6 L MCV 84.9 MCH 25.3 L MCHC 29.7 L RDW 13.5 Plt Count 201 MPV 9.1 L Absolute Nucleated RBC 0.000 Nucleated RBC % (auto) 0.0 Sodium 141 Potassium 3.7 Chloride 108 Carbon Dioxide 30 H Anion Gap 7 L BUN 14 Creatinine 0.76 Estim Creat Clear Calc 76.2 Estimated GFR > 60 Fasting Glucose 99 Calcium 8.6 Vancomycin Trough 19.5 Ur Strep pneumoniae Ag Not Detected Preliminary micro results at discharge 10/26/23 12:10 Blood Culture - Preliminary Blood - Venous No growth after 48 hours. 10/26/23 10:46 Blood Culture - Preliminary Blood - Venous No growth after 48 hours. Imaging Chest x-ray: Radiologist's impression: ITS Impressions Venous Duplex 10/26/23 10:58 IMPRESSION: No DVT demonstrated in the left lower extremity. Calf veins not well visualized. Chest X-Ray 10/26/23 11:33 IMPRESSION: Chronic airways disease. Chronic interstitial and airspace opacities. Increased airspace opacities in the right lower lobe compatible with acute pneumonia. Recommend follow-up chest x-ray in 8 weeks after treatment/resolution of symptoms to ensure resolution. Foot X-Ray 10/26/23 16:48 IMPRESSION: Erosion distal aspect fourth proximal phalanx may reflect osteomyelitis. This is new compared to 12/02/2019. Progressive chronic changes as above. Duplex Scan Lower Extremity Artery 10/27/23 07:55 IMPRESSION: No evidence of hemodynamically significant femoropopliteal disease. Occluded anterior tibial artery with distal reconstitution of the dorsalis pedis. Patent posterior tibial and peroneal arteries with normal triphasic waveforms. Foot MRI 10/27/23 12:08 IMPRESSION: 1. Findings are compatible with osteomyelitis of the 4th proximal phalanx. 2. Mild marrow edema of the 3rd proximal and middle phalanges is nonspecific and may be reactive. Early or mild osteomyelitis of these phalanges cannot be excluded. 3. Chronic fracture deformity of the 5th proximal phalanx. 4. Severe degenerative changes as described. Discharge Plan Discharge Anticipated Discharge Date/Time: 10/30/23 12:08 Patient Disposition: Home Health Service Discharge Diagnosis: Osteomyelitis Pneumonia Referrals: Mireya GOODMAN [Outside] - 1 Week Barbie Dunn MD [Primary Care Provider] - 1 Week Discharge Medications: New nicotine 14 mg/24 hr Patch 24 Hour 14 mg transdermal DAILY Qty: 30 0RF Continued albuterol sulfate 2.5 mg /3 mL (0.083 %) solution for nebulization 2.5 mg inhalation Q6H PRN (Reason: Shortness Of Breath Or Wheezing) bupropion HCl 100 mg tablet sustained-release 12 hr 100 mg PO BID albuterol sulfate 90 mcg/actuation HFA aerosol inhaler 2 puff inhalation Q4H PRN (Reason: Shortness Of Breath Or Wheezing) loratadine 10 mg Tablet 10 mg PO DAILY fluoxetine 20 mg capsule 2 cap PO DAILY famotidine 20 mg tablet 1 tab PO DAILY hwrkhupncc-nmzkocowtjzop-jcll 50-325-40 mg tablet 1 - 2 tab PO DAILY PRN (Reason: headache) ferrous sulfate [FeroSul] 325 mg (65 mg iron) tablet 1 tab PO DAILY Spiriva Respimat 2.5 mcg/actuation mist 1 puff INHALATION DAILY multivitamin [One Daily Multivitamin] Tablet 1 tab PO DAILY levothyroxine 175 mcg tablet 175 mcg PO DAILY folic acid 1 mg tablet 1 mg PO DAILY Eliquis 5 mg tablet 5 mg PO BID fluticasone propionate [Flovent HFA] 220 mcg/actuation HFA aerosol inhaler 1 inh INHALATION BID lorazepam 1 mg tablet 1 mg PO BID PRN (Reason: anxiety) Qty: 10 0RF sulfasalazine 500 mg tablet 500 mg PO QPM prednisone 5 mg tablet 5 mg PO DAILY tramadol 50 mg tablet 50 mg PO BEDTIME PRN (Reason: Pain) hydroxychloroquine 200 mg tablet 300 mg PO QAM sulfasalazine 500 mg tablet 1 g PO QAM hydroxychloroquine 200 mg tablet 100 mg PO QPM nortriptyline 75 mg capsule 75 mg PO BEDTIME pravastatin 40 mg tablet 40 mg PO BEDTIME (DME) nebulizer and compressor [[employer]ios Aerosol Delivery System] Device See Rx Instructions .ROUTE DIRECTED Qty: 1 Rx Instructions: As directed Discharge Orders: Discharge Order (Routine); Ordered 10/30/23 Ordered By: Al Marrero Diet: Advance to usual diet Activity on Discharge: As tolerated Stand Alone Forms: Patient Portal Discharge page Care Plan Goals: Read below Health Concerns: Read below Plan of Treatment: Read below Assessment: To follow up with wound clinic as outpatient To follow up with dr Tabor in 4-6 weeks Continue antibiotic as prescribed come back to the hospital for any fever or increase erythema or drainage from the toe.
--- NOTE | 2023-10-30 12:56 | MHC.CM.PN ---
Addendum entered by Julianne Ibrahim 10/30/23 13:52: Fce 2 Face sent via [employer]. Original Note: Patient received her PICC line in IR this AM. She has received her 1st dose of Ertapenem. She will discharge to home today with IV ABX. [facility] and [facility] are providing services. The patient has arranged for transportation home. All discharge information has been sent to the agencies. A Face 2 Face for [facility] has been requested.
--- NOTE | 2023-10-30 13:02 | W.MHC.F2F ---
Service Date Service Date: 10/30/23 Encounter Date of encounter: 10/30/23 Reasons for Services Signs and symptoms assessed: IV antibiotics for osteomyelitis Reason for jail: wound care, central line care and medication treatment Homebound: Leaving the home is medically contraindicated at this time without the asist of a device and/or another person due th the listed conditions above and below. Reason homebound: unable to drive Certification: Based on the above findings, I certify that this patient is confined to the home and needs intermittent jail care, physical therapy and/or speech therapy, or continues to need occupational therapy. The patient is under my care, and I have initiated the establishment of the plan of care. The patient will be followed by a physician who will periodically review the plan of care. Time Spent With Patient Time: Total time managing care of this patient today ____ minutes.
[2023-10-31 03:29] LABS: Legionella Ag Urine Not Detected (Not Detected)
== END 2023-10-30 15:10 | disposition home health service (06) | DRG 383 ==
LOC: HO.ED 13:54 → HO.EDOVER 16:35 → HO.S3 19:37
PROVIDERS: Internal Medicine; Physician Assistant Medical; Admitting Provider Physician Assistant; Emergency Provider Emergency Medicine Emergency Medical Services; PCP Family Medicine; Visit Provider Student in an Organized Health Care Education/Training Program
DX: L03.116 Cellulitis of left lower limb (principal); D84.9 Immunodeficiency, unspecified; J18.9 Pneumonia, unspecified organism; J44.0 Chronic obstructive pulmonary disease with (acute) lower respiratory infection; M32.9 Systemic lupus erythematosus, unspecified; E03.9 Hypothyroidism, unspecified; L97.529 Non-pressure chronic ulcer of other part of left foot with unspecified severity; M86.9 Osteomyelitis, unspecified; J44.1 Chronic obstructive pulmonary disease with (acute) exacerbation; F17.210 Nicotine dependence, cigarettes, uncomplicated; Z71.6 Tobacco abuse counseling; Z20.822 Contact with and (suspected) exposure to COVID-19; Z79.01 Long term (current) use of anticoagulants; Z79.51 Long term (current) use of inhaled steroids; Z79.52 Long term (current) use of systemic steroids; Z79.890 Hormone replacement therapy; Z79.899 Other long term (current) drug therapy
CPT/HCPCS: 0241U; 36415; 36573; 71045; 73620; 73720; 80048; 80076; 80202; 82565; 83605; 83690; 83880; 84484; 85025; 85027; 85652; 86140; 87040; 87449; 87502; 87635; 87899; 93005; 93926; 93971; 94640; 99285; A9585; C1751; C1894; J0690; J0696; J1335; J2543; J2920; J3370; J3371

== ENCOUNTER → 2023-10-26 10:24 | Outpatient (BNV) | payer MEDICAID, SELFPAY | PROVIDERS: Admitting Provider Physician Assistant; Emergency Provider Emergency Medicine Emergency Medical Services; PCP Family Medicine; Visit Provider Internal Medicine | DX: I44.4 Left anterior fascicular block (principal); R94.31 Abnormal electrocardiogram [ECG] [EKG] | CPT/HCPCS: 93010 ==

== ENCOUNTER → 2023-10-26 16:22 | Outpatient (BNV) | payer MEDICAID, SELFPAY | PROVIDERS: Admitting Provider Physician Assistant; Emergency Provider Emergency Medicine Emergency Medical Services; PCP Family Medicine; Visit Provider Physician Assistant | DX: J44.1 Chronic obstructive pulmonary disease with (acute) exacerbation (principal); M86.9 Osteomyelitis, unspecified; J18.9 Pneumonia, unspecified organism; L03.116 Cellulitis of left lower limb | CPT/HCPCS: 99223; 99232; 99239; G0180 ==

== ENCOUNTER 2023-11-04 12:57 | Outpatient (REF) | payer MEDICAID, SELFPAY ==
[2023-11-04 13:01] LABS: MANUAL DIFF FLAG NO
[2023-11-04 13:12] LABS: Basophils Absolute Auto 0.1 X10*3/uL (0.0-0.2); Basophils Percent Auto 0.6 % (0-2); Eosinophils Absolute Auto 0.6 X10*3/uL (0.0-0.4); Eosinophils Percent Auto 5.9 % (0-4); Hematocrit 35.6 % (37.0-47.0); Hemoglobin 10.8 g/dl (12.0-16.0); Imm Gran Abs Auto 0.15 X10*3/uL (0.00-0.03); Imm Gran Pct Auto 1.5 % (0.0-0.4); Lymphocytes Absolute Auto 1.6 X10*3/uL (1.2-4.9); Lymphocytes Percent Auto 15.8 % (20-40); Mean Corpuscular HGB Conc 30.3 g/dl (31.0-35.0); Mean Corpuscular Hemoglobin 24.8 pg (27.0-33.0); Mean Corpuscular Volume 81.8 fL (80.0-98.0); Mean Platelet Volume 9.8 fL (9.4-12.3); Monocytes Absolute Auto 1.1 X10*3/uL (0.1-1.2); Monocytes Percent Auto 11.2 % (2-11); Neutrophils Absolute Auto 6.5 x10*3/uL (2.0-8.3); Platelet Count 216 X10*3/uL (160-400); Red Blood Count 4.35 X10*6/uL (4.20-5.50); Red Cell Distribution Width 13.2 % (11.0-16.0)
[2023-11-04 13:28] LABS: Anion Gap 12 (12-20); Blood Urea Nitrogen 8 mg/dL (9-16); Calcium 9.5 mg/dL (8.4-10.2); Carbon Dioxide 30 mmol/L (22-29); Chloride 102 mmol/L (96-108); Estimated Glomerular Filt Rate > 60; Glucose Random 84 mg/dL (60-115); Potassium 4.1 mmol/L (3.3-5.1); Sodium 140 mmol/L (135-145)
== END 2023-11-04 12:58 | disposition home or self-care (01) ==
LOC: HO.HVNA 12:57
PROVIDERS: Visit Provider Internal Medicine
DX: M54.9 Dorsalgia, unspecified (principal); M32.9 Systemic lupus erythematosus, unspecified; G89.29 Other chronic pain
CPT/HCPCS: 36415; 80048; 85025

== ENCOUNTER 2023-11-12 15:00 | Outpatient (REF) | payer MEDICAID, SELFPAY ==
[2023-11-12 15:06] LABS: MANUAL DIFF FLAG NO
[2023-11-12 15:23] LABS: Basophils Absolute Auto 0.1 X10*3/uL (0.0-0.2); Basophils Percent Auto 1.2 % (0-2); Eosinophils Absolute Auto 0.4 X10*3/uL (0.0-0.4); Eosinophils Percent Auto 5.4 % (0-4); Hematocrit 31.2 % (37.0-47.0); Hemoglobin 9.5 g/dl (12.0-16.0); Imm Gran Abs Auto 0.03 X10*3/uL (0.00-0.03); Imm Gran Pct Auto 0.5 % (0.0-0.4); Lymphocytes Absolute Auto 1.5 X10*3/uL (1.2-4.9); Lymphocytes Percent Auto 21.8 % (20-40); Mean Corpuscular HGB Conc 30.4 g/dl (31.0-35.0); Mean Corpuscular Hemoglobin 24.7 pg (27.0-33.0); Mean Corpuscular Volume 81.3 fL (80.0-98.0); Mean Platelet Volume 9.7 fL (9.4-12.3); Monocytes Absolute Auto 0.7 X10*3/uL (0.1-1.2); Neutrophils Percent Auto 60.1 % (45-73); Platelet Count 199 X10*3/uL (160-400); Red Blood Count 3.84 X10*6/uL (4.20-5.50); Red Cell Distribution Width 13.7 % (11.0-16.0); White Blood Count 6.7 X10*3/uL (4.8-10.8)
[2023-11-12 15:56] LABS: Anion Gap 11 (12-20); Blood Urea Nitrogen 6 mg/dL (9-16); Calcium 8.6 mg/dL (8.4-10.2); Carbon Dioxide 29 mmol/L (22-29); Chloride 105 mmol/L (96-108); Estimated Glomerular Filt Rate > 60; Glucose Random 128 mg/dL (60-115); Potassium 3.3 mmol/L (3.3-5.1); Sodium 142 mmol/L (135-145)
== END 2023-11-12 15:01 | disposition home or self-care (01) ==
LOC: HO.HVNA 15:00
PROVIDERS: Visit Provider Internal Medicine
DX: B99.9 Unspecified infectious disease (principal)
CPT/HCPCS: 36415; 80048; 85025

== ENCOUNTER 2023-11-19 16:24 | Outpatient (REF) | payer MEDICAID, SELFPAY ==
[2023-11-19 16:28] LABS: MANUAL DIFF FLAG NO
[2023-11-19 16:31] LABS: Basophils Absolute Auto 0.1 X10*3/uL (0.0-0.2); Basophils Percent Auto 0.9 % (0-2); Eosinophils Absolute Auto 0.5 X10*3/uL (0.0-0.4); Eosinophils Percent Auto 6.4 % (0-4); Hemoglobin 11.2 g/dl (12.0-16.0); Imm Gran Abs Auto 0.03 X10*3/uL (0.00-0.03); Imm Gran Pct Auto 0.4 % (0.0-0.4); Lymphocytes Absolute Auto 1.8 X10*3/uL (1.2-4.9); Lymphocytes Percent Auto 23.5 % (20-40); Mean Corpuscular HGB Conc 30.3 g/dl (31.0-35.0); Mean Corpuscular Hemoglobin 23.9 pg (27.0-33.0); Mean Corpuscular Volume 79.1 fL (80.0-98.0); Mean Platelet Volume 9.8 fL (9.4-12.3); Monocytes Percent Auto 13.7 % (2-11); Neutrophils Absolute Auto 4.1 x10*3/uL (2.0-8.3); Neutrophils Percent Auto 55.1 % (45-73); Platelet Count 233 X10*3/uL (160-400); Red Blood Count 4.68 X10*6/uL (4.20-5.50); Red Cell Distribution Width 13.9 % (11.0-16.0); White Blood Count 7.5 X10*3/uL (4.8-10.8)
[2023-11-19 17:36] LABS: Anion Gap 12 (12-20); Blood Urea Nitrogen 8 mg/dL (9-16); Calcium 9.4 mg/dL (8.4-10.2); Carbon Dioxide 31 mmol/L (22-29); Chloride 105 mmol/L (96-108); Estimated Glomerular Filt Rate > 60; Glucose Random 79 mg/dL (60-115); Potassium 3.9 mmol/L (3.3-5.1); Sodium 144 mmol/L (135-145)
== END 2023-11-19 16:25 | disposition home or self-care (01) ==
LOC: HO.HVNA 16:24
PROVIDERS: Visit Provider Internal Medicine
DX: M86.172 Other acute osteomyelitis, left ankle and foot (principal)
CPT/HCPCS: 36415; 80048; 85025

== ENCOUNTER 2023-11-25 16:46 | Outpatient (REF) | payer MEDICAID, SELFPAY ==
--- NOTE | ~2023-11-25 | XR_ITS ---
EXAMINATION: XR THORACIC SPINE CLINICAL INFORMATION: Dorsalgia COMPARISON: 03/03/2015 TECHNIQUE: 3 views of the thoracic spine were obtained. FINDINGS: There is mild dextroscoliosis of thoracic spine. Vertebral bodies are well aligned and intervertebral discs are preserved. Pedicles are intact soft tissues unremarkable there is no compression deformities seen. XR/XR thoracic spine 3V IMPRESSION: Mild dextroscoliosis.
--- NOTE | ~2023-11-25 | XR_ITS ---
EXAMINATION: XR LUMBOSACRAL SPINE CLINICAL INFORMATION: Dorsalgia COMPARISON: 05/18/2020 TECHNIQUE: Three views of the lumbosacral spine. FINDINGS: There is straightening of lumbar lordosis and worsening cough and dextroscoliosis in the lower thoracic-upper lumbar spine. Sacroiliac joints unremarkable. Pedicles are preserved there is narrowing of L4-L5 and L5-S1 intervertebral disc space. XR/XR lumbar spine 2-3V IMPRESSION: Degenerative changes in lower lumbar spine. Worsening cough dextroscoliosis
--- NOTE | ~2023-11-25 | XR_ITS ---
EXAMINATION: XR CERVICAL SPINE CLINICAL INFORMATION: Unspecified dorsalgia COMPARISON: MRI from 09/22/2021 TECHNIQUE: 6 views of the cervical spine, inclusive of flexion and extension views, were obtained. FINDINGS: There is worsening of reversal to normal cervical lordosis with grade 2 anterior listhesis of C3 over C4, measured approximately 8 mm. There is loss of disc spaces at the level of C3-C4, C4-C5, C5-C6 and C6-C7. There is uncovertebral osteophytosis at the level of C6 - C5. Neuroforamina are not encroached but could be narrowed at the level of C5-C6 bilaterally. Soft tissues unremarkable. XR/XR cervical spine 5V IMPRESSION: Multilevel degenerative changes with grade 2 anterolisthesis of C3 over C4 and worsening of reversal of cervical lordosis. Possible neural foraminal narrowing bilaterally at the level of C5-C6.
[2023-11-25 17:05] LABS: MANUAL DIFF FLAG NO
[2023-11-25 17:41] LABS: Basophils Absolute Auto 0.1 X10*3/uL (0.0-0.2); Basophils Percent Auto 0.8 % (0-2); Eosinophils Absolute Auto 0.5 X10*3/uL (0.0-0.4); Hematocrit 34.6 % (37.0-47.0); Hemoglobin 10.6 g/dl (12.0-16.0); Imm Gran Abs Auto 0.03 X10*3/uL (0.00-0.03); Imm Gran Pct Auto 0.3 % (0.0-0.4); Lymphocytes Percent Auto 20.4 % (20-40); Mean Corpuscular HGB Conc 30.6 g/dl (31.0-35.0); Mean Corpuscular Hemoglobin 24.1 pg (27.0-33.0); Mean Corpuscular Volume 78.6 fL (80.0-98.0); Mean Platelet Volume 9.7 fL (9.4-12.3); Monocytes Absolute Auto 1.1 X10*3/uL (0.1-1.2); Monocytes Percent Auto 11.7 % (2-11); Neutrophils Percent Auto 61.8 % (45-73); Platelet Count 210 X10*3/uL (160-400); Red Cell Distribution Width 14.1 % (11.0-16.0); White Blood Count 9.8 X10*3/uL (4.8-10.8)
[2023-11-25 17:51] LABS: Appearance Urine Clear; Color Urine Yellow; Glucose Urine UA Negative (Negative); Leukocyte Esterase Urine Moderate (2+) (Negative); Nitrite Urine Negative (Negative); PH 5.5 (5.0-9.0); UMIC TRIGGER UA YES; Urine Blood Negative (Negative); Urine Ketones Negative (Negative); Urine Protein Negative (Neg-Trace)
[2023-11-25 17:53] LABS: Bacteria Urine None Seen (None Seen); Hyaline Casts Urine 0-2 /LPF (0-2); RBC Urine 0-2 /HPF (0-2)
[2023-11-25 18:09] LABS: Alanine Aminotransferase 10 U/L (0-31); Albumin Level 3.1 g/dL (3.5-5.0); Alkaline Phosphatase 164 U/L (39-117); Anion Gap 11 (12-20); Aspartate Amino Transferase 22 U/L (5-31); Bilirubin Total 0.3 mg/dL (0.0-1.0); Blood Urea Nitrogen 9 mg/dL (9-16); C Reactive Protein 5.69 mg/dL (< or = 0.50); Carbon Dioxide 28 mmol/L (22-29); Chloride 103 mmol/L (96-108); Estimated Glomerular Filt Rate > 60; Glucose Random 83 mg/dL (60-115); Potassium 3.7 mmol/L (3.3-5.1); Sodium 138 mmol/L (135-145)
[2023-11-25 18:18] LABS: Creatinine Urine 54.78 mg/dL; Total Protein Urine Random < 7 mg/dL (<12)
[2023-11-25 18:20] LABS: Erythrocyte Sedimentation Rate 29 MM/HR (0-20)
[2023-11-27 14:44] LABS: Anti DNA DS Antibody 31 IU/mL
[2023-11-28 11:59] LABS: Complement C3 87 mg/dL (83-193)
== END 2023-11-25 16:47 | disposition home or self-care (01) ==
LOC: HO.XRAY 16:46
PROVIDERS: Visit Provider Student in an Organized Health Care Education/Training Program
DX: M32.9 Systemic lupus erythematosus, unspecified (principal); M54.9 Dorsalgia, unspecified; G89.29 Other chronic pain
CPT/HCPCS: 36415; 72050; 72072; 72100; 80053; 81001; 82570; 84156; 85025; 85652; 86140; 86160; 86225

== ENCOUNTER 2023-12-04 15:54 | Outpatient (REF) | payer MEDICAID, SELFPAY ==
[2023-12-04 15:58] LABS: MANUAL DIFF FLAG NO
[2023-12-04 16:03] LABS: Basophils Absolute Auto 0.1 X10*3/uL (0.0-0.2); Basophils Percent Auto 0.9 % (0-2); Eosinophils Absolute Auto 0.3 X10*3/uL (0.0-0.4); Eosinophils Percent Auto 2.8 % (0-4); Hemoglobin 12.3 g/dl (12.0-16.0); Imm Gran Abs Auto 0.05 X10*3/uL (0.00-0.03); Imm Gran Pct Auto 0.4 % (0.0-0.4); Lymphocytes Absolute Auto 2.1 X10*3/uL (1.2-4.9); Lymphocytes Percent Auto 17.9 % (20-40); Mean Corpuscular HGB Conc 30.8 g/dl (31.0-35.0); Mean Corpuscular Hemoglobin 23.3 pg (27.0-33.0); Mean Corpuscular Volume 75.8 fL (80.0-98.0); Mean Platelet Volume 9.2 fL (9.4-12.3); Monocytes Absolute Auto 1.2 X10*3/uL (0.1-1.2); Monocytes Percent Auto 10.2 % (2-11); Neutrophils Percent Auto 67.8 % (45-73); Platelet Count 233 X10*3/uL (160-400); Red Blood Count 5.28 X10*6/uL (4.20-5.50); Red Cell Distribution Width 14.2 % (11.0-16.0); White Blood Count 11.8 X10*3/uL (4.8-10.8)
[2023-12-04 16:15] LABS: Anion Gap 12 (12-20); Blood Urea Nitrogen 5 mg/dL (9-16); Calcium 9.1 mg/dL (8.4-10.2); Carbon Dioxide 28 mmol/L (22-29); Chloride 103 mmol/L (96-108); Estimated Glomerular Filt Rate > 60; Glucose Random 101 mg/dL (60-115); Potassium 3.3 mmol/L (3.3-5.1); Sodium 140 mmol/L (135-145)
== END 2023-12-04 15:55 | disposition home or self-care (01) ==
LOC: HO.HVNA 15:54
PROVIDERS: Visit Provider Internal Medicine
DX: B99.9 Unspecified infectious disease (principal)
CPT/HCPCS: 36415; 80048; 85025

== ENCOUNTER 2023-12-09 15:09 | Outpatient (AMB) | payer MEDICAID, SELFPAY ==
--- NOTE | 2023-12-09 15:08 | A.OFFVIS_ITS ---
Intake Vital Signs 3 12/09/23 15:26 BP 75/40 L Blood Pressure Location Lt brachial Position Sitting Pulse 88 Pulse Source Pulse Oximeter Temp 99.6 F Temp Source Oral Pulse Oximetry (%) 97 Intake Visit Reasons: Ref.HMC,Osteomyelitis,L.toe Allergies clarithromycin [CLARITHROMYCIN] Allergy (Intermediate, Verified 12/09/23 15:28) FACIAL SWELLING/REDNESS, facial rash, facial rash, facial rash, facial rash HPI Ref.HMC,Osteomyelitis,L.toe 2 HPI0 Details I am seeing her for followup OM fourth proximal phalanx. She was hospitalized for OM fourth proximal phalanx form 10/26-10/30 and no microbiology found. She has last day antibiotics six weeks on 12/06. She has COPD and RA and SLE and is a smoker. Area was slightly open ulcer between toes and has healed over. I had seen her for Cdiff 04/2023 but she has no diarrhea with these antibiotics. [facility] Medical History Sepsis Community acquired pneumonia Bilateral pneumonia C. difficile colitis Open wound of right elbow Respiratory failure with hypoxia Pneumonia due to COVID-19 virus Acute respiratory distress syndrome (ARDS) due to COVID-19 virus Acute exacerbation of chronic obstructive airways disease Acute hypoxemic respiratory failure due to COVID-19 Ulcer of lower extremity Sepsis with acute hypoxic respiratory failure without septic shock Encounter for testing for latent tuberculosis infection Falling Charcot's joint of foot Cellulitis Redness and swelling of lower leg COPD (chronic obstructive pulmonary disease) C. 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) Alcohol intake: current Alcohol intake frequency: holidays/special occasions only Comment: pt asleep Patient Tobacco Use Status: Current everyday Tobacco user Tobacco use type: Cigarette Cigarette Packs Per Day: 0.5 Cigarettes Per Day: 10.0 Years Smoked: 30 Second Hand Smoke Exposure: No Substance Use Type: Marijuana Advance Directives Date on File: 11/26/21 service: No Current occupational status: unemployed and disabled Current occupation: right hand dominant Physical Exam Vital Signs: Last Vital Signs Temp 99.6 F 12/09/23 15:26 Pulse 88 12/09/23 15:26 BP 75/40 L 12/09/23 15:26 Pulse Ox 97 12/09/23 15:26 Const General: cooperative Orientation/consciousness: patient oriented x3 HEENT Head: Yes normal to inspection Mouth: Normal oral and palatal mucosa present Eyes General: appearance normal, both eyes and all related structures Pupils: Equal, round and reactive pupils present Resp Effort & Inspection: normal respiratory effort Cardio Rate: regular rate Rhythm: regular rhythm GI Palpation (GI): Soft to palpation and nontender General: Yes no CVA tenderness Back/Spine/Pelvis Back: no CVA tenderness Skin General skin exam: no rashes or lesions noted Neuro General: patient oriented x3 Cranial nerves: Yes CN's II-XII intact bilaterally and Yes Equal, round and reactive pupils present Extrem Other: General: Yes normal to inspection Psych Appearance: grossly normal Assessment & Plan Assessment & Plan (1) Osteomyelitis of fourth toe of left foot: Comment: She has obstacles to healing with immunosuppression. Right PICC line looks good. Code(s): M86.9 - Osteomyelitis, unspecified Plan: Stop IV antibiotics on 12/06. Topical antifungals to interdigital area. See next year follow as this is chronic OM likely formed. Wrote order to pull PICC line. (2) Tobacco abuse: Code(s): Z72.0 - Tobacco use Plan: work on quitting smoking (3) jail systemic steroid user: Code(s): Z79.52 - jail (current) use of systemic steroids Plan: n/a (4) Lupus: Comment: dx around 2003 (immune complex mediated Gomerulonephritis, membranous glomerulonephritis, inflammatory arthritis, +APLA syndrome, ++DSdna, low C3, low C4, +++ ACL IgM, +++ B2GP IgM) HCQ + prednisone throughout MTX DC due to recurrent cellulitis Sulfasalazine started around 2021 Code(s): M32.9 - Systemic lupus erythematosus, unspecified Plan: n/a (5) PAD (peripheral artery disease): Code(s): I73.9 - Peripheral vascular disease, unspecified Plan: n/a Orders: Orders 2 IR cvc remove any age Today M86.9 - Osteomyelitis, unspecified Coding Level of Care Code New Pt Level 3 (81674) Diagnoses Osteomyelitis of fourth toe of left foot M86.9 Tobacco abuse 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
[2023-12-09 15:26] VITALS: BP 75/40; PULSE 88; TEMP 37.6; O2SAT 97
== END 2023-12-09 18:06 | disposition home or self-care (01) ==
LOC: HO.HID 15:09
PROVIDERS: PCP Family Medicine; Visit Provider Internal Medicine
DX: M86.9 Osteomyelitis, unspecified (principal); Z72.0 Tobacco use; Z79.52 Long term (current) use of systemic steroids; M32.9 Systemic lupus erythematosus, unspecified; I73.9 Peripheral vascular disease, unspecified
CPT/HCPCS: 99213

== ENCOUNTER → 2023-12-09 15:09 | Outpatient (BNVA) | payer MEDICAID, SELFPAY | PROVIDERS: PCP Family Medicine; Visit Provider Internal Medicine | DX: M86.9 Osteomyelitis, unspecified (principal); M32.9 Systemic lupus erythematosus, unspecified; I73.9 Peripheral vascular disease, unspecified; F17.210 Nicotine dependence, cigarettes, uncomplicated; Z79.52 Long term (current) use of systemic steroids | CPT/HCPCS: 99212 ==

== ENCOUNTER 2024-01-15 16:01 | Outpatient (AMB) | payer MEDICAID, SELFPAY ==
--- NOTE | 2024-01-15 16:01 | A.OFFVIS_ITS ---
Intake Vital Signs 01/15/24 16:06 Height 5 ft 1 in BP 110/70 Blood Pressure Location Rt brachial Position Sitting Respiration 16 Pulse 88 Pulse Source Palpation Temp 97.7 F Temp Source Skin Intake Visit Reasons: SLE/RA Resizer Operator Required: No Allergies clarithromycin [CLARITHROMYCIN] Allergy (Intermediate, Verified 01/15/24 16:12) FACIAL SWELLING/REDNESS, facial rash, facial rash, facial rash, facial rash Medication List - Last Reconciled 01/15/24 by Karishma Brice RN albuterol sulfate 2.5 mg inhalation Q6H PRN albuterol sulfate 90 mcg/actuation 2 puffs inhalation Q4H PRN apixaban (Eliquis) 5 mg PO BID bupropion HCl 100 mg PO BID iingdxyhdt-esdlafwgjfley-noxr 50-325-40 mg 1 - 2 tabs PO DAILY PRN famotidine 1 tab PO DAILY ferrous sulfate (FeroSul) 1 tab PO DAILY fluoxetine 2 caps PO DAILY fluticasone propionate 220 mcg/actuation (Flovent HFA) 1 inh inhalation BID folic acid 1 mg PO DAILY hydroxychloroquine 300 mg PO QAM hydroxychloroquine 100 mg PO QPM levothyroxine 175 mcg PO DAILY loratadine 10 mg PO DAILY lorazepam 1 mg PO BID PRN multivitamin (One Daily Multivitamin tablet) 1 tab PO DAILY nebulizer and compressor (Vios Aerosol Delivery System) As directed nicotine 14 mg transdermal DAILY nortriptyline 75 mg PO BEDTIME pravastatin 40 mg PO BEDTIME prednisone 5 mg PO DAILY sulfasalazine 1 g PO QAM sulfasalazine 500 mg PO QPM tiotropium bromide 2.5 mcg/actuation (Spiriva Respimat) 1 puff inhalation DAILY tramadol 50 mg PO BEDTIME PRN HPI HPI Comments History of Present Illness Details 48-year-old female with SLE/RA overlap p resents for follow-up. Last October patient was admitted to the hospital with pneumonia and right 4th toe osteomyelitis. She received IV antibiotics for approximately 6 weeks. PICC line was removed last month. Patient continues to have diffuse pains, including neck pain, bilateral hand pain, wrist pain, she continues to have significant right knee pain and deformity, pain in both feet. She was told by knee surgeon that she would be too high of a risk for knee surgery. She remains on prednisone 5 mg daily, sulfasalazine 1000 mg in the morning and 500 mg at night. Hydroxychloroquine 200 mg daily. She states that she was evaluated by sanitation superintendent my eye doctor last month & cleared to continue hydroxychloroquine. Initial history: This is a 47-year-old female with a past medical history of SLE who presents as a new patient. 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 Patient had a stillbirth around 2000. Around that time She was diagnosed with immune complex mediated glomerulonephritis. This was initially attributed to thyroid disease. Over the next 2-3 years she was diagnosed with SLE. She also had multiple strokes around 1999 for which were treated with Coumadin. Patient is currently on Eliquis however. 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 Over the years patient has been on multiple medications including prednisone, hydroxychloroquine, methotrexate. She was on methotrexate for some time but she developed recurrent cellulitis and methotrexate was discontinued. She was started on sulfasalazine 1 tab twice daily by Dr. Flores over the last 2 years. Continues to take hydroxychloroquine Back in February of 2023 patient had surgery for right foot Charcot's. Postop she had pneumonia and was on antibiotics. This was the last time she had been on antibiotics per patient. Today patient's main complaint is right knee pain and swelling. She has an appointment with Orthopedics soon [facility] Medical History Sepsis Community acquired pneumonia Bilateral pneumonia C. difficile colitis Open wound of right elbow Respiratory failure with hypoxia Pneumonia due to COVID-19 virus Acute respiratory distress syndrome (ARDS) due to COVID-19 virus Acute exacerbation of chronic obstructive airways disease Acute hypoxemic respiratory failure due to COVID-19 Ulcer of lower extremity Sepsis with acute hypoxic respiratory failure without septic shock Encounter for testing for latent tuberculosis infection Falling Charcot's joint of foot Cellulitis Redness and swelling of lower leg COPD (chronic obstructive pulmonary disease) C. 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) Alcohol intake: current Alcohol intake frequency: holidays/special occasions only Comment: pt asleep Patient Tobacco Use Status: Current everyday Tobacco user Tobacco use type: Cigarette Cigarette Packs Per Day: 0.5 Cigarettes Per Day: 10.0 Years Smoked: 30 Second Hand Smoke Exposure: No Substance Use Type: Marijuana Advance Directives Date on File: 11/26/21 service: No Current occupational status: unemployed and disabled Current occupation: right hand dominant Review of Systems Const Reports fatigue and Reports weakness ENT Reports neck pain Musc Reports back pain, Reports arthralgias, Reports joint swelling, Reports limited range of motion, Reports neck pain and Reports stiffness Skin/Breast Reports alopecia Neuro Reports weakness Endo Reports fatigue Physical Exam Vital Signs: Last Vital Signs Temp 97.7 F 01/15/24 16:06 Pulse 88 01/15/24 16:06 Resp 16 01/15/24 16:06 BP 110/70 01/15/24 16:06 Const General: cooperative, healthy appearing and comfortable Nutritional Appearance: malnourished Orientation/consciousness: patient oriented x3 HEENT Head: Yes normocephalic and Yes atraumatic Mouth: moist mucous membranes Resp Effort & Inspection: normal respiratory effort and able to speak in complete sentences Cardio Rate: regular rate Back/Spine/Pelvis Other: Significant neck kyphosis Skin Other: Mild hypopigmentation around her nose and cheek area Neuro General: patient oriented x3 Extrem Other: Reddish discoloration of fingers that blanches with pressure Fingers are warm today. Normal nailfold capillaroscopy Chronic deformities of both feet Right knee deformity, warmth, swelling and tenderness Right ankle warmth No active synovitis of both hands or wrists Results Reviewed Results Reviewed: labs 01/2021? DsDNA elevated? UpCr: 0.292 ESR 80 CRP 61.6 Labs 2014 Beta 2 glycoprotein IgM >159 (<20) Beta 2 glycoprotein IgA 37 (<20) Beta 2 glycoprotein IgG -ve Cardiolipin IgM 115 (<12) Cardiolipin IgG -ve pr3 3.3 (<1.0) Assessment & Plan Assessment & Plan (1) Lupus: Comment: dx around 2003 (immune complex mediated Gomerulonephritis, membranous glomerulonephritis, inflammatory arthritis, +APLA syndrome, ++DSdna, low C3, low C4, +++ ACL IgM, +++ B2GP IgM) HCQ + prednisone throughout MTX DC due to recurrent cellulitis Sulfasalazine started around 2021 Code(s): M32.9 - Systemic lupus erythematosus, unspecified Plan: This is a 48-year-old female with SLE who presents as a new patient. Patient has long history of SLE manifested by inflammatory arthritis, positive dsDNA, antiphospholipid antibody syndrome, immune complex mediated glomerulonephritis, membranous glomerulonephritis) Patient has had multiple infectious comorbidities. She has history of leg wounds. Currently the wounds are healed. 07/2023 she was admitted with pneumonia and treated with antibiotics. 10/2023 she was admitted with pneumonia and right 4th toe osteomyelitis and received 6 weeks of IV antibiotics. She continues to have active synovitis and elevated dsDNA and high inflammatory markers. Continues to have active SLE however I cannot use strong immune suppression given her history of recurrent infections. We had a long discussion about the complexity of her disease. One factor that likely is contributing to her recurrent infections is her chronic prednisone use. I will try to slowly taper it. 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: Code(s): Z79.52 - nursing home (current) use of systemic steroids Plan: Will check a bone density scan (3) Degenerative cervical disc: Code(s): M50.30 - Other cervical disc degeneration, unspecified cervical region Plan: Referred to pain management Plan I spent 69 minutes reviewing patient's chart, evaluating patient, ordering diagnostic workup, counseling patient & her son and documenting in the chart Orders: Orders XR DEXA axial skeleton Today Z79.52 - manager long term care (current) use of systemic steroids Anti DNA DS Antibody 2 Months M32.9 - Systemic lupus erythematosus, unspecified Complement C3 2 Months M32.9 - Systemic lupus erythematosus, unspecified Complement C4 2 Months M32.9 - Systemic lupus erythematosus, unspecified UA w Microscopic 2 Months M32.9 - Systemic lupus erythematosus, unspecified Erythrocyte Sedimentation Rate 2 Months M32.9 - Systemic lupus erythematosus, unspecified Complete Blood Count Auto Diff 2 Months M32.9 - Systemic lupus erythematosus, unspecified Comprehensive Met. Panel 2 Months M32.9 - Systemic lupus erythematosus, unspecified Protein Creatinine Ratio, Ur 2 Months M32.9 - Systemic lupus erythematosus, unspecified Referrals Pain Management Referral M47.812 - Spondylosis without myelopathy or radiculopathy, cervical region Medications: New prednisone Take 2 tabs daily alternating with 1 tab daily for 1 month and remain on 1 tab daily 75 tabs 0RF Changed From sulfasalazine 1 g PO QAM To sulfasalazine 1.5 grams (3 x 500 mg) PO BID 360 tabs 1RF Coding Level of Care Code Est Pt Level 5 (31172) Diagnoses Lupus M32.9 nursing home systemic steroid user Z79.52 Degenerative cervical disc M50.30
[2024-01-15 16:06] VITALS: BP 110/70; PULSE 88; RESP 16; TEMP 36.5
== END 2024-01-15 17:00 | disposition home or self-care (01) ==
LOC: HO.RHE 16:02
PROVIDERS: PCP Family Medicine; Visit Provider Student in an Organized Health Care Education/Training Program
DX: M32.9 Systemic lupus erythematosus, unspecified (principal); Z79.52 Long term (current) use of systemic steroids; M50.30 Other cervical disc degeneration, unspecified cervical region
CPT/HCPCS: 99215

== ENCOUNTER → 2024-01-15 16:01 | Outpatient (BNVA) | payer MEDICAID, SELFPAY | PROVIDERS: PCP Family Medicine; Visit Provider Student in an Organized Health Care Education/Training Program | DX: M32.9 Systemic lupus erythematosus, unspecified (principal); M50.30 Other cervical disc degeneration, unspecified cervical region; Z79.52 Long term (current) use of systemic steroids | CPT/HCPCS: 99212 ==

== ENCOUNTER 2024-03-04 14:46 | Outpatient (REF) | payer MEDICAID, SELFPAY ==
--- NOTE | ~2024-03-04 | MM_ITS ---
EXAMINATION: BONE DENSITOMETRY CLINICAL INDICATION: Long-term (current) use of systemic steroids. COMPARISON: Previous BD dated 12/14/2019 and baseline BD dated 11/01/2011. TECHNIQUE: Using a [employer] DXA System (software version: 13.1) manufactured by [employer], dual-energy x-ray absorptiometry was performed of the lumbar spine and left hip. The images are of good technical quality. Summary results are attached. FINDINGS: LEFT FEMUR, NECK: Current: BMD 0.734 g/cm2, Z-score -1.2, T-score -2.2, osteopenia. Prior: BMD 0.677 g/cm2. Baseline: BMD 0.927 g/cm2. LEFT FEMUR, TOTAL: Current: BMD 0.806 g/cm2, Z-score -0.9, T-score -1.6, osteopenia, 10.3% increase from previous, 21.2% decrease from baseline (<5% change is not significant). Prior: BMD 0.731 g/cm2. Baseline: BMD 1.023 g/cm2. AP SPINE L1-L4: Current: BMD 0.902 g/cm2, Z-score -1.7, T-score -2.3, osteopenia, 5.9% decrease from previous, 26.7% decrease from baseline (<5% change is not significant). Prior: BMD 0.959 g/cm2. Baseline: BMD 1.230 g/cm2. IDENTIFIED RISK FACTORS: Early menopause, secondary osteoporosis, history of fracture (adult), glucocorticoids (chronic), hysterectomy, osteoporosis, recurrent falls, renal, rheumatoid arthritis, tobacco user (current smoker). HISTORY OF FRACTURE: Other. MEDICATIONS: Multivitamin, vitamin D. MM/XR DEXA axial skeleton IMPRESSION: 1. DIAGNOSIS: Osteopenia based on the lowest T-score value of -2.3 in the lumbar spine applying World Health Organization criteria. 2. 10-YEAR FRACTURE RISK PREDICTION, FRAX: Major osteoporotic fracture (clinical spine, forearm, hip or shoulder) 10.0%. Hip fracture 3.7%. 3. Treatment Recommendations: NOF guidelines recommend consideration for treatment in postmenopausal women and men age 50 and older presenting with the following: -A hip or vertebral (clinical or morphometric) fracture. -T-score less than or equal to -2.5 at the femoral neck or spine after appropriate evaluation to exclude secondary causes. -Low bone mass at the hip or spine and a 10-year fracture probability by FRAX of greater than or equal to 3% for hip fracture or greater than or equal to 20% for major osteoporotic fracture based on the [place] adapted WHO algorithm. 4. Other Recommendations: All treatment decisions require clinical judgment and consideration of individual patient factors, including patient preferences, comorbidities, previous drug use, risk factors not captured in the FRAX model (e.g. frailty, falls, vitamin D deficiency, increased bone turnover, interval significant decline in bone density) and possible under or overestimation of fracture risk by FRAX. Additional medical evaluation for secondary cause of low bone mineral density may be appropriate. FUTURE SCAN RECOMMENDATION: People with diagnosed cases of osteoporosis or at high risk for fracture should have regular bone mineral density tests. For patients eligible for Medicare, routine testing is allowed once every 2 years. The testing frequency can be increased to one year for patients who have rapidly progressing disease, those who are receiving or discontinuing medical therapy to restore bone mass, or have additional risk factors.
== END 2024-03-04 14:47 | disposition home or self-care (01) ==
LOC: HO.MAMMO 14:46
PROVIDERS: PCP Family Medicine; Visit Provider Student in an Organized Health Care Education/Training Program
DX: Z13.820 Encounter for screening for osteoporosis (principal); Z79.52 Long term (current) use of systemic steroids; Z78.0 Asymptomatic menopausal state
CPT/HCPCS: 77080

== ENCOUNTER 2024-04-24 10:04 | Inpatient (IN) | payer MEDICAID, SELFPAY ==
--- NOTE | ~2024-04-24 | CT_ITS ---
EXAMINATION: CT CHEST WITHOUT CONTRAST CLINICAL INFORMATION: Question lung mass/pneumonia COMPARISON: CT 11/26/2021 TECHNIQUE: Multidetector volumetric CT imaging of the chest was done. Axial MIP volume rendering provided. Sagittal and coronal reformatted images were obtained. This CT examination was performed using dose optimization techniques as appropriate, variously including the following: *Automated exposure control *Adjustment of mA and/or kV according to patient size (this includes techniques or standardized protocols for targeted exams where dose is matched to indication/reason for exam; i.e. extremities or head) *Use of iterative reconstruction technique DLP: 144 mGy-cm FINDINGS: LUNGS: There are multiple regions of focal patchy and curvilinear opacities as well as tree-in-bud type nodularity, overall right lung greater than left. Overall appearance is suspicious for an infectious/inflammatory process, though a component of underlying scarring may also be present. MEDIASTINUM: Thyroid gland appears diminutive. Suboptimal assessment for lymphadenopathy without intravenous contrast, though mildly enlarged paratracheal and subcarinal lymph nodes are suspected. Cardiac size is within normal limits; no pericardial effusion. CORONARY ARTERY CALCIFICATION: Present PLEURA: No pneumothorax or pleural effusion. AXILLA: No lymphadenopathy. UPPER ABDOMEN: Cholecystectomy clips are noted. There is mural prominence within the limited included colon in the posterior left upper quadrant. OSSEOUS STRUCTURES: There are several chronic appearing/healing bilateral rib fracture deformities. CT/CT chest wo IV con IMPRESSION: 1. Multiple regions of focal patchy and curvilinear opacities as well as tree-in-bud type nodularity, overall right lung greater than left. Overall appearance is suspicious for an infectious/inflammatory process, though a component of underlying scarring may also be present. Follow-up chest CT in 3 months is recommended to assess for resolution and exclude underlying neoplastic nodularity. 2. Mildly enlarged mediastinal lymph nodes, which may be reactive. Attention on follow-up recommended. 3. Mural prominence of the limited included colon in the left upper quadrant. Clinical correlation recommended as colitis cannot be excluded. 4. Coronary artery calcifications. Correlation with cardiac risk factors is recommended.
--- NOTE | ~2024-04-24 | XR_ITS ---
EXAMINATION: XR CHEST CLINICAL INFORMATION: Lung mass. COMPARISON: Chest radiograph 10/26/2023. TECHNIQUE: Frontal view of the chest was obtained. FINDINGS: Stable appearance of the cardiomediastinal silhouette. Chronic significant interstitial thickening bilaterally. Chronic multifocal areas of architectural distortion. New bilateral masslike densities. No pleural effusion or pneumothorax. Chronic bilateral rib fractures. No acute osseous findings. XR/XR chest 1V IMPRESSION: 1. New bilateral masslike densities, nonspecific could be infectious, inflammatory or malignant. Recommend clinical correlation and short-term follow-up with CT chest in 3 months. 2. Chronic multifocal areas of architectural distortion and chronic significant interstitial thickening.
--- NOTE | ~2024-04-24 | US_ITS ---
EXAMINATION: US VENOUS ULTRASOUND WITH DOPPLER LOWER EXTREMITY, BILATERAL CLINICAL INFORMATION: Swelling, DVT. COMPARISON: Left lower extremity ultrasound 10/26/2023. TECHNIQUE: Ultrasound of the deep veins is performed from the hip to the calf with compression sonography and color and pulse Doppler assessment. Spectral analysis with color-flow imaging is performed. FINDINGS: RIGHT: There is normal venous compression and respiratory variation and augmented flow. The visualized common femoral vein, superficial femoral vein, profunda femoral vein, popliteal vein, and the trifurcation region shows no evidence of deep venous thrombosis. There is no significant popliteal fossa cyst. LEFT: There is normal venous compression and respiratory variation and augmented flow. The visualized common femoral vein, superficial femoral vein, profunda femoral vein, popliteal vein, and the trifurcation region shows no evidence of deep venous thrombosis. Hyperechoic filling defect with a somewhat bandlike morphology in the saphenofemoral junction. There is no significant popliteal fossa cyst. ADDITIONAL FINDINGS: Enlarged bilateral inguinal lymph nodes with preserved fatty alannah and normal appearing cortex, most likely reactive in nature. Bilateral soft tissue thickening/edema in the calfs. US/US venous duplex LE BI IMPRESSION: 1. Filling defect in the left saphenofemoral junction of indeterminate age, although echogenicity and morphology favor subacute to chronic thrombus. 2. No additional DVT in the bilateral lower extremities. 3. Subcutaneous swelling/edema. 4. Enlarged, likely reactive inguinal lymph nodes bilaterally. This critical result was discussed with Dr. Julio C Cox at 04/25/2024 12:52 AM and it was ascertained that the content and urgency of the report was understood at the time of direct communication.
--- NOTE | ~2024-04-24 | CT_ITS ---
EXAMINATION: CT ABDOMEN AND PELVIS WITHOUT CONTRAST CLINICAL INFORMATION: Lower extremity edema, evaluate for abdominal mass. COMPARISON: CT abdomen/pelvis 12/27/2022. TECHNIQUE: Multidetector volumetric imaging was performed from the superior aspect of the liver through the pubic symphysis. Sagittal and coronal reformatted images were obtained on the technologist's workstation. This CT examination was performed using dose optimization techniques as appropriate, variously including the following: *Automated exposure control *Adjustment of mA and/or kV according to patient size (this includes techniques or standardized protocols for targeted exams where dose is matched to indication/reason for exam; i.e. extremities or head) *Use of iterative reconstruction technique DLP: 294 mGy-cm FINDINGS: The lack of intravenous contrast limits evaluation of the solid visceral organs including the liver, spleen, pancreas, and kidneys. LUNG BASES: Increased bronchiectasis, mucus plugging and reticulation in the lung bases with increased/new clusters of solid peribronchial nodules bilaterally. LIVER, GALLBLADDER, AND BILIARY TREE: The liver is normal in size, morphology and density. A 1.8 cm low density liver lesion in the periphery of the right hepatic lobe (3:21) is unchanged in size compared to 12/27/2022 where it was visualized as a hyperdense structure in view of background of steatosis on the prior examination. This measures higher than simple fluid in attenuation, approximately 34 Hounsfield units. Cholecystectomy. Unchanged extrahepatic biliary ductal dilatation. No significant intrahepatic biliary ductal dilatation. PANCREAS: Limited noncontrast examination. Again noted pancreatic atrophy. No discrete main ductal dilatation. No significant peripancreatic inflammatory changes. SPLEEN: The spleen measures 11.5 cm craniocaudally, unchanged. ADRENAL GLANDS: A 1.1 cm left adrenal nodule (3:20) measuring 31 Hounsfield units is not definitely identified previously. Normal right adrenal gland. KIDNEYS AND URETERS: No nephrolithiasis or hydronephrosis. No significant perinephric fat stranding. BLADDER: Saddle drooping of the right posterior bladder that could be seen with endopelvic fascial defects. GASTROINTESTINAL TRACT: Diffuse colonic and rectal wall thickening which is more severe at the level of the descending colon. Moderate to large degree of colonic stool burden. No evidence of pneumatosis or free air. Small hiatal hernia. The stomach and the small bowel are nondilated. ABDOMINAL WALL: Predominantly dependent anasarca. Numerous calcified granulomas in the soft tissues of the gluteal regions. No significant hernia. LYMPH NODES: Limited noncontrast examination. Increased right greater than left external iliac and inguinal lymphadenopathy. VASCULAR: Limited noncontrast examination. Atherosclerotic disease. Normal caliber abdominal aorta. PELVIC VISCERA: The ovaries and adnexal regions are suboptimally assessed due to superimposed loops of bowel and lack of IV contrast. Normal CT appearance of the uterus in this limited noncontrast examination. OSSEOUS STRUCTURES: No acute or aggressive appearing osseous findings. Degenerative changes of the spine. Chronic deformities of the inferior bilateral pubic rami. CT/CT abdomen pelvis wo IV con IMPRESSION: Very limited noncontrast examination. 1. Diffuse colonic and rectal wall thickening that is more pronounced and severe at the level of the splenic flexure and descending colon. Etiology of the colitis is uncertain, there is moderate to large amount of stool burden that could indicate some degree of stercoral colitis. Evaluation of ischemic colitis is limited in the absence of IV contrast. 2. Increased bronchiectasis, mucus plugging and reticulation in the lung bases with increased/new clusters of solid peribronchial nodules bilaterally concerning for an infectious or inflammatory process within a background of fibrosis and interstitial lung disease. Recommend short-term follow-up with outpatient CT chest in 3 months. 3. New indeterminate 1.1 cm left adrenal nodule. Recommend further evaluation with a nonemergent adrenal protocol MRI. 4. Unchanged noncystic appearing 1.8 cm right hepatic lobe liver lesion that could be definitely characterized with the above recommended MRI. 5. Increased right greater than left external iliac and inguinal lymphadenopathy. Recommend attention on follow-up in future examinations.
[2024-04-24 10:36] VITALS: BP 100/72; PULSE 100; RESP 16; TEMP 36.5; O2SAT 95
--- NOTE | 2024-04-24 10:39 | ECG_ITS ---
Test Reason : SOB Blood Pressure : / mmHG Vent. Rate : 091 BPM Atrial Rate : 091 BPM P-R Int : 152 ms QRS Dur : 100 ms QT Int : 390 ms P-R-T Axes : 050 -77 043 degrees QTc Int : 479 ms Normal sinus rhythm Incomplete right bundle branch block Left anterior fascicular block Abnormal ECG When compared with ECG of 26-OCT-2023 10:34, Incomplete right bundle branch block is now Present Referred By: Generic ED Physician Electronically Signed By:RANDY MORAN MD
[2024-04-24 11:35] LABS: MANUAL DIFF FLAG NO
[2024-04-24 11:36] LABS: Basophils Absolute Auto 0.1 X10*3/uL (0.0-0.2); Basophils Percent Auto 0.7 % (0-2); Eosinophils Absolute Auto 0.5 X10*3/uL (0.0-0.4); Hematocrit 31.5 % (37.0-47.0); Hemoglobin 10.1 g/dl (12.0-16.0); Imm Gran Abs Auto 0.14 X10*3/uL (0.00-0.03); Imm Gran Pct Auto 0.9 % (0.0-0.4); Lymphocytes Absolute Auto 1.4 X10*3/uL (1.2-4.9); Lymphocytes Percent Auto 9.2 % (20-40); Mean Corpuscular HGB Conc 32.1 g/dl (31.0-35.0); Mean Corpuscular Hemoglobin 27.4 pg (27.0-33.0); Mean Corpuscular Volume 85.4 fL (80.0-98.0); Mean Platelet Volume 9.3 fL (9.4-12.3); Monocytes Percent Auto 6.6 % (2-11); Neutrophils Absolute Auto 12.1 x10*3/uL (2.0-8.3); Neutrophils Percent Auto 79.6 % (45-73); Platelet Count 161 X10*3/uL (160-400); Red Blood Count 3.69 X10*6/uL (4.20-5.50); Red Cell Distribution Width 14.5 % (11.0-16.0); White Blood Count 15.1 X10*3/uL (4.8-10.8)
[2024-04-24 11:57] LABS: Alanine Aminotransferase 16 U/L (0-31); Albumin Level 1.4 g/dL (3.5-5.0); Alkaline Phosphatase 130 U/L (39-117); Anion Gap 6 (12-20); Aspartate Amino Transferase 21 U/L (5-31); Bilirubin Direct < 0.2 mg/dL (0.0-0.5); Bilirubin Total < 0.1 mg/dL (0.0-1.0); Blood Urea Nitrogen 10 mg/dL (9-16); Calcium 7.5 mg/dL (8.4-10.2); Carbon Dioxide 29 mmol/L (22-29); Chloride 108 mmol/L (96-108); Creatinine Clr Calc Pharmacy 91.4; Estimated Glomerular Filt Rate > 60; Glucose Random 79 mg/dL (60-115); Lipase 11 U/L (8-78); Potassium 3.9 mmol/L (3.3-5.1); Sodium 139 mmol/L (135-145); Total Protein 3.5 g/dL (6.5-8.0)
[2024-04-24 12:00] LABS: B Type Natriuretic Peptide 24 pg/mL (<100)
--- NOTE | 2024-04-24 16:45 | ED.GENADULT ---
HPI - General Adult General Chief complaint: General Medical Stated complaint: swollen legs Time Seen by Provider: 04/24/24 16:42 Source: patient Mode of arrival: ambulatory Limitations: no limitations History of Present Illness ED Provider: anamaria PADILLA narrative: Patient is 48 years old smoker with significant peripheral arterial disease CVA lupus rheumatoid arthritis fibromyalgia on Eliquis for PAD comes here as for last few weeks been having increased leg swelling with poor appetite lost about 30 lb in 1 year also been having diarrhea 3-4 times a day for last few weeks similar to that when she had C diff last year patient denied any recent antibiotic intake no fever no chills does have chronic cough feels very weak with limited activities at home no history of lung cancer patient does have a PC who comes to house for few hours every day does not ambulate much Related Data Home Medications ?Medication ?Instructions ?Recorded ?Confirmed pravastatin 40 mg tablet 40 mg PO BEDTIME 08/15/20 04/24/24 albuterol sulfate 90 mcg/actuation 1 puff inhalation DAILY PRN 08/31/20 04/24/24 aerosol inhaler Shortness Of Breath Or Wheezing bupropion HCl 100 mg tablet,12 hr 100 mg PO BID 08/31/20 04/24/24 sustained-release nortriptyline 75 mg capsule 75 mg PO BEDTIME 04/18/21 04/24/24 loratadine 10 mg tablet 10 mg PO DAILY allergies 10/21/21 04/24/24 nebulizer and compressor (Vios #1 ea 02/15/22 01/15/24 Aerosol Delivery System) famotidine 20 mg tablet 1 tab PO DAILY 05/24/22 04/24/24 nbvwzsqxat-lxujyofgxevld-qtemxaov 1 - 2 tab PO DAILY PRN headache 11/08/22 04/24/24 50 mg-325 mg-40 mg tablet ferrous sulfate 325 mg (65 mg 1 tab PO DAILY 11/08/22 04/24/24 iron) tablet (FeroSul) tiotropium bromide 2.5 1 puff inhalation DAILY 11/08/22 04/24/24 mcg/actuation mist for inhalation (Spiriva Respimat) fluoxetine 20 mg capsule 2 cap PO DAILY 12/27/22 04/24/24 apixaban 5 mg tablet (Eliquis) 5 mg PO BID 01/03/23 04/24/24 folic acid 1 mg tablet 1 mg PO DAILY 01/03/23 04/24/24 levothyroxine 175 mcg tablet 175 mcg PO DAILY 01/03/23 04/24/24 multivitamin (One Daily 1 tab PO DAILY 01/03/23 04/24/24 Multivitamin tablet) tramadol 50 mg tablet 50 mg PO BEDTIME PRN Pain 10/26/23 04/24/24 hydroxychloroquine 200 mg tablet 300 mg PO BID 04/24/24 04/24/24 lorazepam 1 mg tablet 1 mg PO DAILY PRN anxiety 04/24/24 04/24/24 Previous Rx's ?Medication ?Instructions ?Recorded prednisone 2.5 mg tablet 2.5 mg PO DAILY #30 tabs 04/06/24 Allergies Allergy/AdvReac Type Severity Reaction Status Date / Time clarithromycin Allergy Intermediate FACIAL Verified 04/24/24 10:37 [CLARITHROMYCIN] SWELLING/REDNESS, facial rash, facial rash, facial rash, facial rash Review of Systems Review of Systems: Yes all other systems are reviewed and are negative [facility] Past Medical History Medical History Sepsis Community acquired pneumonia Bilateral pneumonia C. difficile colitis Open wound of right elbow Respiratory failure with hypoxia Pneumonia due to COVID-19 virus Acute respiratory distress syndrome (ARDS) due to COVID-19 virus Acute exacerbation of chronic obstructive airways disease Acute hypoxemic respiratory failure due to COVID-19 Ulcer of lower extremity Sepsis with acute hypoxic respiratory failure without septic shock Encounter for testing for latent tuberculosis infection Falling Charcot's joint of foot Cellulitis Redness and swelling of lower leg COPD (chronic obstructive pulmonary disease) C. difficile colitis Secondary bacterial pneumonia Immunosuppression due to chronic steroid use Mixed connective tissue disease Cellulitis of right leg PAD (peripheral artery disease) Varicose veins of right lower extremity with inflammation Rheumatoid arthritis Cellulitis CVA (cerebral vascular accident) Proteinuria Fibromyalgia Hypothyroid Lupus Surgical History Status post incision and drainage History of breast lump/mass excision History of excision of mass History of partial hysterectomy History of cholecystectomy History of bunionectomy Family History Family History Father No problems noted. 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) Alcohol intake: current Alcohol intake frequency: holidays/special occasions only Comment: pt asleep Patient Tobacco Use Status: Current everyday Tobacco user Tobacco use type: Cigarette Cigarette Packs Per Day: 0.5 Cigarettes Per Day: 10.0 Years Smoked: 30 Smoked in Last 30 Days: Yes Second Hand Smoke Exposure: No Use of substances other than those prescribed or required for medical reasons: No Substance Use Type: Marijuana Advance Directives: Yes Advance Directives on File: Yes Advance Directives Date on File: 11/26/21 service: No Current occupational status: unemployed and disabled Current occupation: right hand dominant Physical Exam ED Vital Signs: Vital Signs - 24 hr 04/24/24 10:36 04/24/24 16:50 04/24/24 19:44 Temperature 97.7 F 97.8 F 97.5 F Pulse Rate 100 79 92 Respiratory Rate 16 14 16 Blood Pressure 100/72 119/68 122/65 Pulse Oximetry 95 96 95 Oxygen Delivery Method Room Air Room Air Room Air BMI result Body Mass Index 20.0 Appearance: Alert. Oriented X3. Very nauseated older than her stated age Eyes: PERRLA, ENT: Pharynx normal. Oral Mucosa moist Neck: Normal inspection. Neck supple. CVS: Normal heart rate and rhythm. Pulses normal. Respiratory: No respiratory distress. Equal air entry bilateral, bilateral conducted sounds with rales at bilateral bases Abdomen: Soft and nontender. Bowel sounds are present, no mass palpable, no CVA tenderness Skin: Skin warm and dry. Normal skin color. Normal skin turgor. Extremities: 4+ pitting edema bilateral lower extremity nontender No calf tenderness Neuro: Oriented X 3. No motor deficit. No sensory deficit.No cerebellar signs , cranial nerves II-XII intact Medications Administered Generic Name Dose Route Start Last Admin Trade Name Freq PRN Reason Stop Dose Admin Acetaminophen 650 mg 04/24/24 20:40 04/24/24 23:52 Acetaminophen 325 Mg Tablet PO 650 mg Q6H PRN Administration Pain, Mild (Pain Scale 1-3) Apixaban 5 mg 04/24/24 23:30 04/24/24 23:53 Apixaban 5 Mg Tablet PO 5 mg BID ANDRIA Administration Hydroxychloroquine Sulfate 300 mg 06/07/24 23:30 04/24/24 23:53 Hydroxychloroquine Sulfate 200 Mg Tablet PO 300 mg BID ANDRIA Administration Ceftriaxone Sodium 1 gm/ 50 mls @ 100 mls/hr 04/24/24 20:45 04/24/24 20:57 Sodium Chloride IV Not Given Q24H ANDRIA Metronidazole 500 mg in 100 mls @ 100 mls/hr 04/24/24 20:45 04/24/24 20:58 Flagyl IV Not Given Q8H ANDRIA Nortriptyline HCl 75 mg 04/24/24 23:30 04/25/24 00:25 Nortriptyline Hcl 25 Mg Capsule PO 75 mg BEDTIME ANDRIA Administration Pravastatin Sodium 40 mg 04/24/24 23:30 04/24/24 23:53 Pravastatin Sodium 40 Mg Tablet PO 40 mg BEDTIME ANDRIA Administration Sodium Chloride 3 ml 04/25/24 00:00 04/25/24 00:01 0.9 % Sodium Chloride Flush 3 Ml Syringe IVFLUSH Not Given QSHIFT ANDRIA Discontinued Medications Generic Name Dose Route Start Last Admin Trade Name Freq PRN Reason Stop Dose Admin Ceftriaxone Sodium 1 gm/ 50 mls @ 100 mls/hr 04/24/24 19:56 04/24/24 20:57 Sodium Chloride IV 04/24/24 20:25 Infused ONCE ONE Infusion Metronidazole 500 mg in 100 mls @ 100 mls/hr 04/24/24 19:56 04/24/24 21:51 Flagyl IV 04/24/24 20:55 Infused ONCE ONE Infusion Sodium Chloride 500 mls @ 500 mls/hr 04/24/24 20:45 04/25/24 00:01 Ns IV 04/24/24 21:44 Infused .Q1H ANDRIA Infusion Albumin Human 100 mls @ 100 mls/hr 04/24/24 21:15 04/25/24 00:25 Kedbumin 25 % IV 04/24/24 23:14 100 mls/hr Q1H ANDRIA Administration Medical Decision Making Medical Decision Making [facility] Narrative: Patient with significant weight loss with bilaterally infiltrate in the lungs with bilateral leg edema and weight loss chest CT shows bilateral infiltrate will start her on antibiotics CT scan of the abdomen showed colitis will admit patient for IV antibiotics. Venous Doppler of the leg showed old chronic clots Differential Diagnosis Differential Diagnoses: The differential diagnosis associated with the presentation includes Admission/Observation Consideration of admission/observation: Escalation of care including admission/observation considered Consult Healthcare Provider Management of the patient was discussed with: Hospitalist Lab Data MDM Lab Attestation statement: I reviewed the patient's lab results. 04/24/24 11:21 04/24/24 11:21 Labs: Lab Results 04/24/24 04/24/24 04/24/24 Range/Units 11:21 17:38 20:03 WBC 15.1 H (4.8-10.8) X10*3/uL RBC 3.69 L D (4.20-5.50) X10*6/uL Hgb 10.1 L (12.0-16.0) g/dl Hct 31.5 L D (37.0-47.0) % MCV 85.4 (80.0-98.0) fL MCH 27.4 (27.0-33.0) pg MCHC 32.1 (31.0-35.0) g/dl RDW 14.5 (11.0-16.0) % Plt Count 161 D (160-400) X10*3/uL MPV 9.3 L (9.4-12.3) fL Immature Gran % (Auto) 0.9 H (0.0-0.4) % Neut % (Auto) 79.6 H (45-73) % Lymph % (Auto) 9.2 L (20-40) % [place] % (Auto) 6.6 (2-11) % Eos % (Auto) 3.0 (0-4) % Baso % (Auto) 0.7 (0-2) % Lymph # (Auto) 1.4 (1.2-4.9) X10*3/uL [place] # (Auto) 1.0 (0.1-1.2) X10*3/uL Eos # (Auto) 0.5 H (0.0-0.4) X10*3/uL Baso # (Auto) 0.1 (0.0-0.2) X10*3/uL Abs Immat Gran (auto) 0.14 H (0.00-0.03) X10*3/uL Absolute Neuts (auto) 12.1 H (2.0-8.3) x10*3/uL Absolute Nucleated RBC 0.000 (0.0-0.012) X10*3/uL Nucleated RBC % (auto) 0.0 (0.0-0.2) /100WBC PT 11.4 (11.1-13.3) SEC INR 0.9 (0.9-1.1) APTT 34.1 (26.0-36.8) SEC Sodium 139 (135-145) mmol/L Potassium 3.9 (3.3-5.1) mmol/L Chloride 108 (96-108) mmol/L Carbon Dioxide 29 (22-29) mmol/L Anion Gap 6 L (12-20) BUN 10 (9-16) mg/dL Creatinine 0.58 (0.5-1.4) mg/dL Estim Creat Clear Calc 91.4 Estimated GFR > 60 Random Glucose 79 (60-115) mg/dL Lactic Acid 0.5 (0.5-2.0) mmol/L Calcium 7.5 L D (8.4-10.2) mg/dL Total Bilirubin < 0.1 (0.0-1.0) mg/dL Direct Bilirubin < 0.2 (0.0-0.5) mg/dL AST 21 (5-31) U/L ALT 16 (0-31) U/L Alkaline Phosphatase 130 H (39-117) U/L B-Natriuretic Peptide 24 (<100) pg/mL Total Protein 3.5 L (6.5-8.0) g/dL Albumin 1.4 L (3.5-5.0) g/dL Lipase 11 (8-78) U/L Independent Interpretation I performed an independent interpretation of an: EKG, Ultrasound and CT Scan Interpretation: Normal sinus rhythm heart rate 91 beats per minute, right bundle branch block, left anterior fascicular block no acute ST elevation no acute ischemia Radiology Impression Discussion of test interpretation with radiology: I have reviewed the radiologist's reading. Critical Care Time Critical Care Time Critical Care Time: Yes Total Critical Care Time: 45 Attestation: The patient was critically ill with a high probability of imminent or life threatening deterioration. I spent greater than 50 ???minutes of discontinuous time evaluating the patient,delivering critical care at the bedside, discussing and evaluating pertinent data with consultants. Critical care time does not include time spent performing separately billable procedures or teaching. Total time spent performing critical care was ?45??minutes. Discharge Plan Discharge Clinical Impression: Bilateral pneumonia, Tobacco abuse, COPD (chronic obstructive pulmonary disease) with acute bronchitis Patient Disposition: Admitted As Inpatient
[2024-04-24 16:50] VITALS: BP 119/68; PULSE 79; RESP 14; TEMP 36.6; O2SAT 96
--- NOTE | 2024-04-24 16:59 | PC.NURSE ---
Pt presents to ED from home, reports multiple complaints. Pt reports diarrhea daily 3-4 episodes for past month along with nausea and poor PO intake, thinks she has had 30 pound weight loss. Also reports edema in bilat lower legs, pitting +3 on RN exam. CSMs intact. Denies CP, SOB, ABD pain, fevers. Alert and oriented, breathing even and unlabored, skin dry.
[2024-04-24 18:00] LABS: INTERNATIONAL NORM RATIO 0.9 (0.9-1.1); Prothrombin Time 11.4 SEC (11.1-13.3)
[2024-04-24 18:03] LABS: Partial Thromboplastin Time 34.1 SEC (26.0-36.8)
[2024-04-24 19:44] VITALS: BP 122/65; PULSE 92; RESP 16; TEMP 36.4; O2SAT 95
--- NOTE | 2024-04-24 20:09 | PHA.MEDREC ---
Pharmacy Consult ? Medication Reconciliation Pharmacy has completed the medication reconciliation. Confirmed meds with patient.
--- NOTE | 2024-04-24 20:22 | PC.NURSE ---
this rn assumed care of pt, pt resting in stretcher, no acute distress noted. pt denies pain at this time.
[2024-04-24] MEDS: cefTRIAXone sodium 1 GM in 0.9 % Sodium Chloride 50 ML IV (20:26)
--- NOTE | 2024-04-24 20:26 | PC.NURSE ---
20G placed in right ac, labs obtained. pt medicated per jan.
[2024-04-24 20:28] LABS: Lactic Acid 0.5 mmol/L (0.5-2.0)
[2024-04-24] MEDS: metroNIDAZOLE/NS 500 MG/100 ML PIGGYBACK 100 MG IV (20:52)
--- NOTE | 2024-04-24 20:55 | PM.IMHP ---
History of Present Illness Date of Service: 04/24/24 Attending physician on admission: Braeden Fall Chief Complaint: Dirrhea, abd pain x1 month Pt is a -year-old female with a PMH significant for?COPD, rheumatoid arthritis on chronic prednisone, SLE on hydroxychloroquine, fibromyalgia, hypothyroidism, history of CVA, peripheral arterial disease on Eliquis, history of C diff, and Charcot joint of foot who presents to the ED for evaluation of nonbloody, foul-smelling diarrhea?x1 month. Patient has a history of C diff colitis, last admitted to the hospital on 12/27/2022. Reports she has been having nonbloody diarrhea, 2-3 episodes daily, for the past month. Also endorses a 30 lb weight loss during this time. States has been trying to eat and drink normally, but feels nauseous midway through a meal. Has not been vomiting, but had over all reduced p.o. intake. Reports intermittent mild lower abdominal pain. Denies shortness of breath or dyspnea upon exertion, but has had intermittent cough occasionally productive of yellowish sputum x2 weeks. No fever, chills. In the ED pt was tachycardic up to 100, vitals otherwise WNL. Labs were significant for leukocytosis of 15.1, alk-phos 130, and albumin 1.4. Stable H&H. No significant electrolyte abnormalities. Renal function baseline. Lactic acid WNL at 0.5. CXR showed new bilateral masslike densities, nonspecific, but could be infectious, inflammatory, or malignant. Also showed chronic multifocal areas of architectural distortion and chronic significant interstitial thickening. CT of abdomen and pelvis found diffuse colonic and rectal wall thickening worse at splenic flexure and descending colon. Also found new indeterminate 1.1 cm left adrenal nodule; unchanged non cystic appearing 1.8 cm right hepatic lobe liver lesion; and increased right greater than left external iliac and inguinal lymphadenopathy. CT of chest pending. Venous duplex ultrasound of lower legs pending. EKG demonstrated normal sinus rhythm without evidence of ST elevations or depressions. Pt was treated with IVF, ceftriaxone, and metronidazole. Pt will be admitted to the hospital for treatment and further evaluation of colitis with sepsis. Review of Systems Review of Systems: Daily nonbloody diarrhea x1 month Nausea, no vomiting Intermittent mild lower abdominal pain 30lb unintended weight loss in past month Intermittent cough occasionally productive of yellowish sputum Denies chest pain/pressure, palpitations No fever, chills No shortness a breath or [facility] Medical History Sepsis Community acquired pneumonia Bilateral pneumonia C. difficile colitis Open wound of right elbow Respiratory failure with hypoxia Pneumonia due to COVID-19 virus Acute respiratory distress syndrome (ARDS) due to COVID-19 virus Acute exacerbation of chronic obstructive airways disease Acute hypoxemic respiratory failure due to COVID-19 Ulcer of lower extremity Sepsis with acute hypoxic respiratory failure without septic shock Encounter for testing for latent tuberculosis infection Falling Charcot's joint of foot Cellulitis Redness and swelling of lower leg COPD (chronic obstructive pulmonary disease) C. difficile colitis Secondary bacterial pneumonia Immunosuppression due to chronic steroid use Mixed connective tissue disease Cellulitis of right leg PAD (peripheral artery disease) Varicose veins of right lower extremity with inflammation Rheumatoid arthritis Cellulitis CVA (cerebral vascular accident) Proteinuria Fibromyalgia Hypothyroid Lupus Family History Father No problems noted. 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) Alcohol intake: current Alcohol intake frequency: holidays/special occasions only Comment: pt asleep Patient Tobacco Use Status: Current everyday Tobacco user Tobacco use type: Cigarette Cigarette Packs Per Day: 0.5 Cigarettes Per Day: 10.0 Years Smoked: 30 Smoked in Last 30 Days: Yes Second Hand Smoke Exposure: No Use of substances other than those prescribed or required for medical reasons: No Substance Use Type: Marijuana Advance Directives: Yes Advance Directives on File: Yes Advance Directives Date on File: 11/26/21 service: No Current occupational status: unemployed and disabled Current occupation: right hand dominant Meds Allergies Allergy/AdvReac Type Severity Reaction Status Date / Time clarithromycin Allergy Intermediate FACIAL Verified 04/24/24 10:37 [CLARITHROMYCIN] SWELLING/REDNESS, facial rash, facial rash, facial rash, facial rash Active Medications: Current Medications Acetaminophen (Acetaminophen 325 Mg Tablet) 650 mg PO Q6H PRN PRN Reason: Pain, Mild (Pain Scale 1-3) Metronidazole (Flagyl) 500 mg in 100 mls @ 100 mls/hr IV ONCE ONE Stop: 04/24/24 20:55 Last Admin: 04/24/24 20:52 Dose: 100 mls/hr Ceftriaxone Sodium 1 gm/ (Sodium Chloride) 50 mls @ 100 mls/hr IV Q24H ANDRIA Metronidazole (Flagyl) 500 mg in 100 mls @ 100 mls/hr IV Q8H NADRIA Sodium Chloride (Ns) 500 mls @ 500 mls/hr IV .Q1H ANDRIA Stop: 04/24/24 21:44 Melatonin (Melatonin 3 Mg Tablet) 6 mg PO BEDTIME PRN PRN Reason: Insomnia Ondansetron HCl (Ondansetron Hcl 4 Mg/2 Ml Vial) 4 mg IVPUSH Q8H PRN PRN Reason: Nausea and Vomiting Sodium Chloride (0.9 % Sodium Chloride Flush 3 Ml Syringe) 3 ml IVFLUSH QSHIFT [facility] Home Medications ?Medication ?Instructions ?Recorded ?Confirmed ?Last Taken ?Type pravastatin 40 mg tablet 40 mg PO BEDTIME 08/15/20 04/24/24 04/23/24 18:30 History albuterol sulfate 90 mcg/actuation 1 puff inhalation DAILY PRN 08/31/20 04/24/24 04/24/24 06:00 History aerosol inhaler Shortness Of Breath Or Wheezing bupropion HCl 100 mg tablet,12 hr 100 mg PO BID 08/31/20 04/24/24 04/24/24 06:00 History sustained-release nortriptyline 75 mg capsule 75 mg PO BEDTIME 04/18/21 04/24/24 04/23/24 18:30 History loratadine 10 mg tablet 10 mg PO DAILY allergies 10/21/21 04/24/24 04/24/24 06:00 History nebulizer and compressor (Vios #1 ea 02/15/22 01/15/24 Unknown History Aerosol Delivery System) famotidine 20 mg tablet 1 tab PO DAILY 05/24/22 04/24/24 04/24/24 06:00 History yjfwrblxma-ygktvstzpzwej-ghilkjrx 1 - 2 tab PO DAILY PRN headache 11/08/22 04/24/24 04/24/24 06:00 History 50 mg-325 mg-40 mg tablet ferrous sulfate 325 mg (65 mg 1 tab PO DAILY 11/08/22 04/24/24 04/24/24 06:00 History iron) tablet (FeroSul) tiotropium bromide 2.5 1 puff inhalation DAILY 11/08/22 04/24/24 04/24/24 06:00 History mcg/actuation mist for inhalation (Spiriva Respimat) fluoxetine 20 mg capsule 2 cap PO DAILY 12/27/22 04/24/24 04/24/24 06:00 History apixaban 5 mg tablet (Eliquis) 5 mg PO BID 01/03/23 04/24/24 04/24/24 06:00 History folic acid 1 mg tablet 1 mg PO DAILY 01/03/23 04/24/24 04/24/24 06:00 History levothyroxine 175 mcg tablet 175 mcg PO DAILY 01/03/23 04/24/24 04/24/24 06:00 History multivitamin (One Daily 1 tab PO DAILY 01/03/23 04/24/24 04/24/24 06:00 History Multivitamin tablet) tramadol 50 mg tablet 50 mg PO BEDTIME PRN Pain 10/26/23 04/24/24 04/24/24 06:00 History hydroxychloroquine 200 mg tablet 300 mg PO BID 04/24/24 04/24/24 04/24/24 06:00 History lorazepam 1 mg tablet 1 mg PO DAILY PRN anxiety 04/24/24 04/24/24 04/24/24 06:00 History Physical Exam Vital Signs and Narrative: Vital Signs: Last Vital Signs Temp 97.5 F 04/24/24 19:44 Pulse 92 04/24/24 19:44 Resp 16 04/24/24 19:44 BP 122/65 04/24/24 19:44 Pulse Ox 95 04/24/24 19:44 O2 Del Method Room Air 04/24/24 19:44 BMI result Body Mass Index 20.0 Constitutional: Alert, cachectic, frail looking, in no acute distress. Mental Status: Oriented to person, place and time. Eyes: Pupils are equal, round, and reactive to light. Ear, Nose, and Throat: Oropharynx clear, mucous membranes moist. Ears and nose without deformities. Trachea midline. Respiratory: Mild bilateral diffuse wheezing. Cardiovascular: S1, S2 regular. No murmurs, rubs, or gallops. Gastrointestinal: Abdomen soft with mild left-sided abdominal tenderness. Neurologic: Cranial nerves II-XII are grossly intact bilaterally. No focal neurological deficits. Moves all extremities spontaneously, though with noted global weakness. Skin: Warm, dry. Musculoskeletal: No cyanosis or clubbing. Extremities: 3+ bilateral pitting edema. Chronic deformities of both feet without visible ulcerations or chronic wounds. Psychiatric: Normal mood and affect. Results Labs 04/24/24 11:21 04/24/24 11:21 Labs: Laboratory Results - last 24 hr 04/24/24 04/24/24 04/24/24 11:21 17:38 20:03 MCV 85.4 MCH 27.4 MCHC 32.1 RDW 14.5 Plt Count 161 D MPV 9.3 L Immature Gran % (Auto) 0.9 H Neut % (Auto) 79.6 H Lymph % (Auto) 9.2 L [place] % (Auto) 6.6 Eos % (Auto) 3.0 Baso % (Auto) 0.7 Lymph # (Auto) 1.4 [place] # (Auto) 1.0 Eos # (Auto) 0.5 H Baso # (Auto) 0.1 Abs Immat Gran (auto) 0.14 H Absolute Neuts (auto) 12.1 H Absolute Nucleated RBC 0.000 Nucleated RBC % (auto) 0.0 PT 11.4 INR 0.9 APTT 34.1 Anion Gap 6 L Estim Creat Clear Calc 91.4 Estimated GFR > 60 Random Glucose 79 Lactic Acid 0.5 Calcium 7.5 L D Total Bilirubin < 0.1 Direct Bilirubin < 0.2 AST 21 ALT 16 Alkaline Phosphatase 130 H B-Natriuretic Peptide 24 Total Protein 3.5 L Albumin 1.4 L Lipase 11 Imaging Radiologist's Impressions: Impressions Chest X-Ray 04/24/24 17:22 IMPRESSION: 1. New bilateral masslike densities, nonspecific could be infectious, inflammatory or malignant. Recommend clinical correlation and short-term follow-up with CT chest in 3 months. 2. Chronic multifocal areas of architectural distortion and chronic significant interstitial thickening. Abdomen/Pelvis CT 04/24/24 17:32 IMPRESSION: Very limited noncontrast examination. 1. Diffuse colonic and rectal wall thickening that is more pronounced and severe at the level of the splenic flexure and descending colon. Etiology of the colitis is uncertain, there is moderate to large amount of stool burden that could indicate some degree of stercoral colitis. Evaluation of ischemic colitis is limited in the absence of IV contrast. 2. Increased bronchiectasis, mucus plugging and reticulation in the lung bases with increased/new clusters of solid peribronchial nodules bilaterally concerning for an infectious or inflammatory process within a background of fibrosis and interstitial lung disease. Recommend short-term follow-up with outpatient CT chest in 3 months. 3. New indeterminate 1.1 cm left adrenal nodule. Recommend further evaluation with a nonemergent adrenal protocol MRI. 4. Unchanged noncystic appearing 1.8 cm right hepatic lobe liver lesion that could be definitely characterized with the above recommended MRI. 5. Increased right greater than left external iliac and inguinal lymphadenopathy. Recommend attention on follow-up in future examinations. Assessment and Plan (1) Colitis: Status: Acute Plan Pt is a -year-old female with a PMH significant for?COPD, rheumatoid arthritis on chronic prednisone, SLE on hydroxychloroquine, fibromyalgia, hypothyroidism, history of CVA, peripheral arterial disease on Eliquis, history of C diff, and Charcot joint of foot who presents to the ED for evaluation of nonbloody diarrhea?x1 month. Pt will be admitted to the hospital for treatment and further evaluation of colitis with sepsis. Colitis with sepsis Patient with nonbloody diarrhea, nausea with no vomiting, intermittent abdominal pain x1 month CT of abdomen and pelvis found diffuse colonic and rectal wall thickening worse at splenic flexure and descending colon Unclear etiology, infectious versus inflammatory versus ischemic Patient meets sepsis criteria: Tachycardia, leukocytosis; lactic acid WNL at 0.5 Patient given IVF, and started on broad-spectrum antibiotics in the ED Will empirically cover with ceftriaxone and metronidazole, started 04/24/2024 Will check stool studies, C diff Analgesics for pain management Antiemetics for nausea Clear liquid diet for now, advance as tolerated Follow cultures Abnormal CXR CXR found new, nonspecific bilateral masslike densities Etiology includes infectious versus inflammatory versus malignancy Denies SOB or PÉREZ, but has had productive cough x2 weeks CT of chest pending Bilateral lower leg edema Patient with significant 3+ bilateral pitting lower leg edema Unclear etiology Venous duplex ultrasound of bilateral lower extremities pending COPD Not in acute exacerbation Continue home inhalers Rheumatoid arthritis Continue prednisone Lupus Continue hydroxychloroquine Peripheral artery disease Continue Eliquis Hypothyroidism Continue levothyroxine HLD Continue statin Mood disorder Continue mood stabilizers Full Code Attending:?Dr. Fall DVT Prophylaxis: On Eliquis Pt will require a hospitalization of at least two nights for treatment of?colitis with sepsis with IV antibiotics, close monitoring of labs, and additional workup for infectious source. Quality Stroke Does the patient have a stroke diagnosis?: No VTE Prior VTE?: No VTE Risk Level:: Medical - moderate - high VTE Device Contraindication: Treatment Not Indicated VTE Drug Contraindication: N/A - Med Ordered
[2024-04-24] MEDS: 0.9 % Sodium Chloride 500 ML IV (20:56)
--- NOTE | 2024-04-24 21:48 | PC.NURSE ---
pharmacy contacted due to not having albumin dose in pyxis at this time.
[2024-04-24] MEDS: Albumin Human 25 % 100 ML IV (22:04)
--- NOTE | 2024-04-24 22:34 | PC.NURSE ---
pt to ultrasound at this time.
[2024-04-24 23:02] LABS: Influenza A PCR NEGATIVE (Negative); Influenza B PCR NEGATIVE (Negative); Resp Syncy Virus RNA Qual PCR NEGATIVE (Negative); SARS COV2 PCR INHOUSE NEGATIVE (Negative)
[2024-04-24] MEDS: Acetaminophen 325 MG TABLET 650 MG PO (23:52)
[2024-04-24] MEDS: Pravastatin Sodium 40 MG TABLET PO (23:53)
[2024-04-24] MEDS: Apixaban 5 MG TABLET PO (23:53)
[2024-04-24] MEDS: Hydroxychloroquine Sulfate 200 MG TABLET 300 MG PO (23:53)
--- NOTE | 2024-04-25 00:02 | PC.NURSE ---
pt assisted to bathroom, reports using wheelchair at home, pt assisted in wheelchair to bathroom.
[2024-04-25] MEDS: Albumin Human 25 % 100 ML IV (00:25)
[2024-04-25] MEDS: Nortriptyline HCl 25 MG CAPSULE 75 MG PO ×2 (00:25→20:04)
--- NOTE | 2024-04-25 00:32 | MHC.EDTECH ---
This tech assisted Pt into a wheelchair and brought to the bathroom. Pt pivoted from wheelchair to toilet and back without issue. Pt brought back to 22H, pivoted into stretcher. Gingerale and warm blanket given.
[2024-04-25 04:16] VITALS: BP 126/47; PULSE 96; RESP 17; TEMP 36.2; O2SAT 92
[2024-04-25] MEDS: metroNIDAZOLE/NS 500 MG/100 ML PIGGYBACK 100 MG IV ×3 (05:06→20:04)
[2024-04-25 06:03] VITALS: BP 128/81; PULSE 101; RESP 16; TEMP 37.2; O2SAT 94
--- NOTE | 2024-04-25 06:09 | PC.NURSE ---
pt requesting breathing treatment, RT called to bedside, treatment administered.
--- NOTE | 2024-04-25 06:27 | PC.NURSE ---
pharmacy contacted for levothyroxine at this time.
[2024-04-25 06:32] LABS: MANUAL DIFF FLAG NO
[2024-04-25 06:36] LABS: Basophils Absolute Auto 0.1 X10*3/uL (0.0-0.2); Eosinophils Absolute Auto 0.3 X10*3/uL (0.0-0.4); Eosinophils Percent Auto 4.1 % (0-4); Hematocrit 31.7 % (37.0-47.0); Hemoglobin 9.9 g/dl (12.0-16.0); Imm Gran Pct Auto 1.2 % (0.0-0.4); Lymphocytes Absolute Auto 1.4 X10*3/uL (1.2-4.9); Lymphocytes Percent Auto 16.5 % (20-40); Mean Corpuscular HGB Conc 31.2 g/dl (31.0-35.0); Mean Corpuscular Hemoglobin 26.8 pg (27.0-33.0); Mean Corpuscular Volume 85.9 fL (80.0-98.0); Mean Platelet Volume 9.2 fL (9.4-12.3); Monocytes Absolute Auto 0.7 X10*3/uL (0.1-1.2); Monocytes Percent Auto 8.4 % (2-11); Neutrophils Absolute Auto 5.8 x10*3/uL (2.0-8.3); Neutrophils Percent Auto 68.8 % (45-73); Platelet Count 142 X10*3/uL (160-400); Red Blood Count 3.69 X10*6/uL (4.20-5.50); Red Cell Distribution Width 14.5 % (11.0-16.0); White Blood Count 8.4 X10*3/uL (4.8-10.8)
[2024-04-25 06:54] LABS: Anion Gap 12 (12-20); Blood Urea Nitrogen 6 mg/dL (9-16); Calcium 8.2 mg/dL (8.4-10.2); Carbon Dioxide 26 mmol/L (22-29); Chloride 110 mmol/L (96-108); Estimated Glomerular Filt Rate > 60; Glucose Random 72 mg/dL (60-115); Potassium 3.9 mmol/L (3.3-5.1); Sodium 144 mmol/L (135-145)
[2024-04-25] MEDS: Levothyroxine Sodium 175 MCG TABLET PO (07:34)
[2024-04-25 08:06] VITALS: PULSE 68; RESP 15; O2SAT 96
[2024-04-25] MEDS: Tiotropium Bromide 2.5 mcg 1 PUFF/2.5 MCG MIST.INHAL INHALE (08:06)
[2024-04-25 09:56] VITALS: BP 118/63; PULSE 98; RESP 12; TEMP 36.7; O2SAT 92
[2024-04-25] MEDS: Hydroxychloroquine Sulfate 200 MG TABLET 300 MG PO ×2 (10:17→20:04)
[2024-04-25] MEDS: FLUoxetine HCl 20 MG CAPSULE 40 MG PO (10:17)
[2024-04-25] MEDS: Famotidine 20 MG TABLET PO (10:18)
[2024-04-25] MEDS: Loratadine 10 MG TABLET PO (10:18)
[2024-04-25] MEDS: Folic Acid 1 MG TABLET PO (10:18)
[2024-04-25] MEDS: Ferrous Sulfate 324 MG TABLET.DR PO (10:18)
[2024-04-25] MEDS: Multivitamin TABLET 1 TAB PO (10:18)
[2024-04-25] MEDS: Apixaban 5 MG TABLET PO ×2 (10:18→20:05)
[2024-04-25] MEDS: predniSONE 2.5 MG TABLET PO (10:36)
[2024-04-25] MEDS: ondansetron HCL 4 MG/2 ML VIAL IVPUSH (11:11)
[2024-04-25] MEDS: Butalb/Acetamin/Caff 50/325/40 TABLET 1 TAB PO ×2 (12:33→20:05)
--- NOTE | 2024-04-25 12:55 | P.PNIM_ITS ---
Subjective Subjective Date of Service: 04/25/24 Interval History: admitted for diarrhea, colitis still having diarrhea Physical Exam 2 Vital Signs: Vital Signs: Last Vital Signs Temp 98.1 F 04/25/24 09:56 Pulse 98 04/25/24 09:56 Resp 12 04/25/24 09:56 BP 118/63 04/25/24 09:56 Pulse Ox 92 04/25/24 09:56 O2 Del Method Room Air 04/25/24 09:56 BMI result Body Mass Index 20.0 General: AO X 3, no acute distress Resp: CTA bilateral CVS: S1,S2,RRR, leg edema wili GI: +BS, mild tenderness, no distention, Skin: No rash Neuro: motor grossly intact Psych: appropriate affect Objective Data Active Medications Acetaminophen (Acetaminophen 325 Mg Tablet) 650 mg PO Q6H PRN PRN Reason: Pain, Mild (Pain Scale 1-3) Last Admin: 04/24/24 23:52 Dose: 650 mg Documented By: JAD Acetaminophen/Butalbital/Caffeine (Butalb/Acetamin/Caff 50/325/40 Tablet) 1 tab PO Q4H PRN PRN Reason: Headache Last Admin: 04/25/24 12:33 Dose: 1 tab Documented By: HUMBERTO Albuterol Sulfate (Albuterol Sulfate 90 Mcg 8 Gm Inhaler) 1 puff INHALE DAILY PRN PRN Reason: Shortness Of Breath Or Wheezing Apixaban (Apixaban 5 Mg Tablet) 5 mg PO BID [facility] Last Admin: 04/25/24 10:18 Dose: 5 mg Documented By: HUMBERTO Famotidine (Famotidine 20 Mg Tablet) 20 mg PO DAILY [facility] Last Admin: 04/25/24 10:18 Dose: 20 mg Documented By: HUMBERTO Ferrous Sulfate (Ferrous Sulfate 324 Mg Tablet.Dr) 324 mg PO DAILY [facility] Last Admin: 04/25/24 10:18 Dose: 324 mg Documented By: HUMBERTO Fluoxetine HCl (Fluoxetine Hcl 20 Mg Capsule) 40 mg PO DAILY [facility] Last Admin: 04/25/24 10:17 Dose: 40 mg Documented By: HUMBERTO Folic Acid (Folic Acid 1 Mg Tablet) 1 mg PO DAILY [facility] Last Admin: 04/25/24 10:18 Dose: 1 mg Documented By: HUMBERTO Hydroxychloroquine Sulfate (Hydroxychloroquine Sulfate 200 Mg Tablet) 300 mg PO BID [facility] Last Admin: 04/25/24 10:17 Dose: 300 mg Documented By: HUMBERTO Ceftriaxone Sodium 1 gm/ (Sodium Chloride) 50 mls @ 100 mls/hr IV Q24H [facility] Last Admin: 04/24/24 20:57 Dose: Not Given Documented By: JAD Non-Admin Reason: Previously Administered Metronidazole (Flagyl) 500 mg in 100 mls @ 100 mls/hr IV Q8H [facility] Last Admin: 04/25/24 12:31 Dose: 100 mls/hr Documented By: HUMBERTO Levothyroxine Sodium (Levothyroxine Sodium 175 Mcg Tablet) 175 mcg PO DAILY@0630 [facility] Last Admin: 04/25/24 07:34 Dose: 175 mcg Documented By: HUMBERTO Loratadine (Loratadine 10 Mg Tablet) 10 mg PO DAILY [facility] Last Admin: 04/25/24 10:18 Dose: 10 mg Documented By: HUMBERTO Lorazepam (Lorazepam 1 Mg Tablet) 1 mg PO DAILY PRN PRN Reason: anxiety Melatonin (Melatonin 3 Mg Tablet) 6 mg PO BEDTIME PRN PRN Reason: Insomnia Multivitamins/Vitamin C (Multivitamin Tablet) 1 tab PO DAILY [facility] Last Admin: 04/25/24 10:18 Dose: 1 tab Documented By: HUMBERTO Non-Formulary Medication (Bupropion Hcl) 100 mg PO BID [facility] Nortriptyline HCl (Nortriptyline Hcl 25 Mg Capsule) 75 mg PO BEDTIME [facility] Last Admin: 04/25/24 00:25 Dose: 75 mg Documented By: JAD Ondansetron HCl (Ondansetron Hcl 4 Mg/2 Ml Vial) 4 mg IVPUSH Q8H PRN PRN Reason: Nausea and Vomiting Last Admin: 04/25/24 11:11 Dose: 4 mg Documented By: HUMBERTO Pravastatin Sodium (Pravastatin Sodium 40 Mg Tablet) 40 mg PO BEDTIME [facility] Last Admin: 04/24/24 23:53 Dose: 40 mg Documented By: JAD Prednisone (Prednisone 2.5 Mg Tablet) 2.5 mg PO DAILY [facility] Last Admin: 04/25/24 10:36 Dose: 2.5 mg Documented By: HUMBERTO Sodium Chloride (0.9 % Sodium Chloride Flush 3 Ml Syringe) 3 ml IVFLUSH QSHIFT [facility] Last Admin: 04/25/24 08:06 Dose: Not Given Documented By: HUMBERTO Non-Admin Reason: See Note Tiotropium Jasper (Tiotropium Jasper 2.5 Mcg 1 Puff/2.5 Mcg Mist.Inhal) 1 puff INHALE DAILY [facility] Last Admin: 04/25/24 08:06 Dose: 1 puff Documented By: KRISS Tramadol HCl (Tramadol Hcl 50 Mg Tablet) 50 mg PO BEDTIME PRN PRN Reason: Pain, Moderate(Pain Scale 4-6) Labs 04/25/24 06:27 04/25/24 06:27 Labs: Laboratory Results - last 24 hr 04/24/24 04/24/24 04/24/24 17:38 20:03 22:11 MCV MCH MCHC RDW Plt Count MPV Immature Gran % (Auto) Neut % (Auto) Lymph % (Auto) [place] % (Auto) Eos % (Auto) Baso % (Auto) Lymph # (Auto) [place] # (Auto) Eos # (Auto) Baso # (Auto) Abs Immat Gran (auto) Absolute Neuts (auto) Absolute Nucleated RBC Nucleated RBC % (auto) PT 11.4 INR 0.9 APTT 34.1 Anion Gap Estim Creat Clear Calc Estimated GFR Random Glucose Lactic Acid 0.5 Calcium Influenza Type A (PCR) NEGATIVE Influenza Type B (PCR) NEGATIVE RSV RNA Qual (PCR) NEGATIVE SARS-CoV-2 RNA (RT-PCR) NEGATIVE 04/25/24 06:27 MCV 85.9 MCH 26.8 L MCHC 31.2 RDW 14.5 Plt Count 142 L MPV 9.2 L Immature Gran % (Auto) 1.2 H Neut % (Auto) 68.8 Lymph % (Auto) 16.5 L [place] % (Auto) 8.4 Eos % (Auto) 4.1 H Baso % (Auto) 1.0 Lymph # (Auto) 1.4 [place] # (Auto) 0.7 Eos # (Auto) 0.3 Baso # (Auto) 0.1 Abs Immat Gran (auto) 0.10 H Absolute Neuts (auto) 5.8 Absolute Nucleated RBC 0.000 Nucleated RBC % (auto) 0.0 PT INR APTT Anion Gap 12 Estim Creat Clear Calc 87.0 Estimated GFR > 60 Random Glucose 72 Lactic Acid Calcium 8.2 L D Influenza Type A (PCR) Influenza Type B (PCR) RSV RNA Qual (PCR) SARS-CoV-2 RNA (RT-PCR) Assessment and Plan (1) Colitis: Status: Acute Plan Pt is a -year-old female with a PMH significant for?COPD, rheumatoid arthritis on chronic prednisone, SLE on hydroxychloroquine, fibromyalgia, hypothyroidism, history of CVA, peripheral arterial disease on Eliquis, history of C diff, and Charcot joint of foot who presents to the ED for evaluation of nonbloody diarrhea?x1 month. Pt will be admitted to the hospital for treatment and further evaluation of colitis with sepsis. Colitis with sepsis, persistent diarrhea -check Cdif and gi panel -empric Abx with Ceftriaxone and Flagyl -Gi consult if not improving Abnormal CXR--CT chest 1. Multiple regions of focal patchy and curvilinear opacities as well as tree-in-bud type nodularity, overall right lung greater than left. Overall appearance is suspicious for an infectious/inflammatory process, though a component of underlying scarring may also be present. Follow-up chest CT in 3 months is recommended to assess for resolution and exclude underlying neoplastic nodularity. 2. Mildly enlarged mediastinal lymph nodes, which may be reactive. Attention on follow-up recommended. 3. Mural prominence of the limited included colon in the left upper quadrant. Clinical correlation recommended as colitis cannot be excluded. Bilateral lower leg edema--US suggest clot that is old, already on anticoagulation with eliquis COPD Not in acute exacerbation Continue home inhalers Rheumatoid arthritis Continue prednisone Lupus Continue hydroxychloroquine Peripheral artery disease Continue Eliquis Hypothyroidism Continue levothyroxine HLD Continue statin Mood disorder Continue mood stabilizers Full Code DVT Prophylaxis: On Eliquis need for inpt; Management of colitis with IV Abx Quality Stroke Does the patient have a stroke diagnosis?: No VTE Prior VTE?: No VTE Risk Level:: Medical - moderate - high VTE Device Contraindication: Treatment Not Indicated VTE Drug Contraindication: N/A - Med Ordered
[2024-04-25 15:12] VITALS: BP 124/74; PULSE 102; RESP 18; TEMP 36.4; O2SAT 95
--- NOTE | 2024-04-25 15:56 | MHC.CM.PN ---
PT LIVES IN AN APT W/ HER ADULT CHILDREN. 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 AMBULATES W/ WALKER AT TIMES, BUT MOSTLY USES W/C. PCP SARTHAK BISHOP HCP ON FILE AND VERIFIED DP: GOAL IS HOME, RESUME [employer] SERVICES. WOULD BE OPEN TO [facility] IF RECOMMENDED (PREVIOUSLY USED THEM WHEN DC'D W/ IV ABX). [employer] WILL TRANSPORT. CM WILL CONTINUE TO FOLLOW.
[2024-04-25] MEDS: buPROPion HCl XL 150 MG TAB.ER.24H PO (16:25)
[2024-04-25] MEDS: 0.9 % Sodium Chloride Flush 3 ML SYRINGE IVFLUSH ×2 (16:29→21:45)
[2024-04-25 19:17] VITALS: BP 105/56; PULSE 95; RESP 17; TEMP 36.2; O2SAT 94
[2024-04-25] MEDS: cefTRIAXone sodium 1 GM in 0.9 % Sodium Chloride 50 ML IV (19:45)
[2024-04-25] MEDS: Pravastatin Sodium 40 MG TABLET PO (20:05)
[2024-04-26 03:07] VITALS: BP 100/57; PULSE 82; RESP 17; TEMP 36.4; O2SAT 94
[2024-04-26] MEDS: metroNIDAZOLE/NS 500 MG/100 ML PIGGYBACK 100 MG IV ×3 (04:12→20:31)
[2024-04-26] MEDS: Levothyroxine Sodium 175 MCG TABLET PO (06:36)
[2024-04-26 07:04] VITALS: BP 110/58; PULSE 72; RESP 16; TEMP 36.6; O2SAT 94
[2024-04-26] MEDS: guaiFENesin 100 MG/5 ML LIQUID PO ×3 (07:39→20:27)
[2024-04-26] MEDS: oxyCODONE HCl Immed Release 5 MG TABLET PO ×2 (07:39→14:51)
[2024-04-26] MEDS: 0.9 % Sodium Chloride Flush 3 ML SYRINGE IVFLUSH ×3 (08:13→20:25)
[2024-04-26] MEDS: buPROPion HCl XL 150 MG TAB.ER.24H PO (08:14)
[2024-04-26] MEDS: Hydroxychloroquine Sulfate 200 MG TABLET 300 MG PO ×2 (08:14→20:24)
[2024-04-26] MEDS: FLUoxetine HCl 20 MG CAPSULE 40 MG PO (08:14)
[2024-04-26] MEDS: predniSONE 2.5 MG TABLET PO (08:14)
[2024-04-26] MEDS: Ferrous Sulfate 324 MG TABLET.DR PO (08:15)
[2024-04-26] MEDS: Folic Acid 1 MG TABLET PO (08:15)
[2024-04-26] MEDS: Famotidine 20 MG TABLET PO (08:15)
[2024-04-26] MEDS: Loratadine 10 MG TABLET PO (08:15)
[2024-04-26] MEDS: Multivitamin TABLET 1 TAB PO (08:15)
[2024-04-26] MEDS: Apixaban 5 MG TABLET PO ×2 (08:15→20:25)
--- NOTE | 2024-04-26 08:22 | P.PNIM_ITS ---
Subjective Subjective Date of Service: 04/26/24 Interval History: f/u on colitis interval history: no fever, no diarrhea going 24 hours, tolerating liquid diet, wbc has come down to normal Physical Exam 2 Vital Signs: Vital Signs: Last Vital Signs Temp 97.8 F 04/26/24 07:04 Pulse 72 04/26/24 07:04 Resp 16 04/26/24 07:04 BP 110/58 L 04/26/24 07:04 Pulse Ox 94 04/26/24 07:04 O2 Del Method Room Air 04/26/24 07:04 BMI result Body Mass Index 20.0 General: AO X 3, no acute distress Resp: CTA bilateral CVS: S1,S2,RRR GI: +BS, NT, no distention Skin: No rash Neuro: motor grossly intact Psych: appropriate affect Objective Data Active Medications Acetaminophen (Acetaminophen 325 Mg Tablet) 650 mg PO Q6H PRN PRN Reason: Pain, Mild (Pain Scale 1-3) Last Admin: 04/24/24 23:52 Dose: 650 mg Documented By: JAD Acetaminophen/Butalbital/Caffeine (Butalb/Acetamin/Caff 50/325/40 Tablet) 1 tab PO Q4H PRN PRN Reason: Headache Last Admin: 04/25/24 20:05 Dose: 1 tab Documented By: SANDY Albuterol Sulfate (Albuterol Sulfate 90 Mcg 8 Gm Inhaler) 1 puff INHALE DAILY PRN PRN Reason: Shortness Of Breath Or Wheezing Apixaban (Apixaban 5 Mg Tablet) 5 mg PO BID [facility] Last Admin: 04/26/24 08:15 Dose: 5 mg Documented By: CHELI Bupropion HCl (Bupropion Hcl Xl 150 Mg Tab.Er.24h) 150 mg PO DAILY [facility] Last Admin: 04/26/24 08:14 Dose: 150 mg Documented By: CHELI Famotidine (Famotidine 20 Mg Tablet) 20 mg PO DAILY [facility] Last Admin: 04/26/24 08:15 Dose: 20 mg Documented By: CHELI Ferrous Sulfate (Ferrous Sulfate 324 Mg Tablet.) 324 mg PO DAILY [facility] Last Admin: 04/26/24 08:15 Dose: 324 mg Documented By: CHELI Fluoxetine HCl (Fluoxetine Hcl 20 Mg Capsule) 40 mg PO DAILY [facility] Last Admin: 04/26/24 08:14 Dose: 40 mg Documented By: CHELI Folic Acid (Folic Acid 1 Mg Tablet) 1 mg PO DAILY [facility] Last Admin: 04/26/24 08:15 Dose: 1 mg Documented By: CHELI Guaifenesin (Guaifenesin 100 Mg/5 Ml Liquid) 5 ml PO Q6H PRN PRN Reason: Cough Last Admin: 04/26/24 07:39 Dose: 5 ml Documented By: CHELI Hydroxychloroquine Sulfate (Hydroxychloroquine Sulfate 200 Mg Tablet) 300 mg PO BID [facility] Last Admin: 04/26/24 08:14 Dose: 300 mg Documented By: CHELI Ceftriaxone Sodium 1 gm/ (Sodium Chloride) 50 mls @ 100 mls/hr IV Q24H [facility] Last Infusion: 04/25/24 20:15 Dose: Infused Documented By: SANDY Metronidazole (Flagyl) 500 mg in 100 mls @ 100 mls/hr IV Q8H [facility] Last Infusion: 04/26/24 06:32 Dose: Infused Documented By: REGGIE Levothyroxine Sodium (Levothyroxine Sodium 175 Mcg Tablet) 175 mcg PO DAILY@0630 [facility] Last Admin: 04/26/24 06:36 Dose: 175 mcg Documented By: REGGIE Loratadine (Loratadine 10 Mg Tablet) 10 mg PO DAILY [facility] Last Admin: 04/26/24 08:15 Dose: 10 mg Documented By: CHELI Lorazepam (Lorazepam 1 Mg Tablet) 1 mg PO DAILY PRN PRN Reason: anxiety Melatonin (Melatonin 3 Mg Tablet) 6 mg PO BEDTIME PRN PRN Reason: Insomnia Multivitamins/Vitamin C (Multivitamin Tablet) 1 tab PO DAILY [facility] Last Admin: 04/26/24 08:15 Dose: 1 tab Documented By: CHELI Nortriptyline HCl (Nortriptyline Hcl 25 Mg Capsule) 75 mg PO BEDTIME [facility] Last Admin: 04/25/24 20:04 Dose: 75 mg Documented By: SANDY Ondansetron HCl (Ondansetron Hcl 4 Mg/2 Ml Vial) 4 mg IVPUSH Q8H PRN PRN Reason: Nausea and Vomiting Last Admin: 04/25/24 11:11 Dose: 4 mg Documented By: HUMBERTO Oxycodone HCl (Oxycodone Hcl Immed Release 5 Mg Tablet) 5 mg PO Q6H PRN PRN Reason: Pain, Severe (Pain Scale 7-10) Last Admin: 04/26/24 07:39 Dose: 5 mg Documented By: CHELI Pravastatin Sodium (Pravastatin Sodium 40 Mg Tablet) 40 mg PO BEDTIME [facility] Last Admin: 04/25/24 20:05 Dose: 40 mg Documented By: SANDY Prednisone (Prednisone 2.5 Mg Tablet) 2.5 mg PO DAILY [facility] Last Admin: 04/26/24 08:14 Dose: 2.5 mg Documented By: CHELI Sodium Chloride (0.9 % Sodium Chloride Flush 3 Ml Syringe) 3 ml IVFLUSH QSHIFT [facility] Last Admin: 04/26/24 08:13 Dose: 3 ml Documented By: CHELI Tiotropium Hudson (Tiotropium [place] 2.5 Mcg 1 Puff/2.5 Mcg Mist.Inhal) 1 puff INHALE DAILY [facility] Last Admin: 04/25/24 08:06 Dose: 1 puff Documented By: KRISS Labs 04/25/24 06:27 04/25/24 06:27 Microbiology Microbiology Results: Microbiology 04/24/24 20:26 Blood Culture - Preliminary Blood - Venous No growth after 24 hours. 04/24/24 20:04 Blood Culture - Preliminary Blood - Venous No growth after 24 hours. Assessment and Plan (1) Colitis: Status: Acute Plan Pt is a -year-old female with a PMH significant for?COPD, rheumatoid arthritis on chronic prednisone, SLE on hydroxychloroquine, fibromyalgia, hypothyroidism, history of CVA, peripheral arterial disease on Eliquis, history of C diff, and Charcot joint of foot who presents to the ED for evaluation of nonbloody diarrhea?x1 month. Pt will be admitted to the hospital for treatment and further evaluation of colitis with sepsis. Colitis with sepsis, persistent diarrhea--no diarrhea since yesterday -check Cdif and gi panel -empric Abx with Ceftriaxone and Flagyl -Gi consultation Abnormal CXR--CT chest 1. Multiple regions of focal patchy and curvilinear opacities as well as tree-in-bud type nodularity, overall right lung greater than left. Overall appearance is suspicious for an infectious/inflammatory process, though a component of underlying scarring may also be present. Follow-up chest CT in 3 months is recommended to assess for resolution and exclude underlying neoplastic nodularity. 2. Mildly enlarged mediastinal lymph nodes, which may be reactive. Attention on follow-up recommended. 3. Mural prominence of the limited included colon in the left upper quadrant. Clinical correlation recommended as colitis cannot be excluded. Bilateral lower leg edema--US suggest clot that is old, already on anticoagulation with eliquis COPD Not in acute exacerbation Continue home inhalers Rheumatoid arthritis Continue prednisone Lupus Continue hydroxychloroquine Peripheral artery disease Continue Eliquis Hypothyroidism Continue levothyroxine HLD Continue statin Mood disorder Continue mood stabilizers Full Code DVT Prophylaxis: On Eliquis need for inpt; Management of colitis with IV Abx Quality Stroke Does the patient have a stroke diagnosis?: No VTE Prior VTE?: No VTE Risk Level:: Medical - moderate - high VTE Device Contraindication: Treatment Not Indicated VTE Drug Contraindication: N/A - Med Ordered
[2024-04-26] MEDS: Tiotropium Bromide 2.5 mcg 1 PUFF/2.5 MCG MIST.INHAL INHALE (08:51)
[2024-04-26 08:52] VITALS: PULSE 78; RESP 16; O2SAT 95
[2024-04-26 13:21] LABS: CDiff Gene PCR POSITIVE (Negative)
[2024-04-26 13:22] LABS: CDiff Toxin Positive (Negative)
[2024-04-26 13:23] LABS: CDIFF Internal ctrl Dots and bkg OK (V)
[2024-04-26] MEDS: vancomycin HCL 125 MG CAPSULE 250 MG PO ×2 (13:53→20:25)
[2024-04-26 14:09] LABS: Adenovirus F 40/41 Not Detected (Not Detect.); Astrovirus Not Detected (Not Detect.); Campylobacter Not Detected (Not Detect.); Cryptosporidium Not Detected (Not Detect.); Cyclospora cayetanensis Not Detected (Not Detect.); E. coli EAEC Not Detected (Not Detect.); E. coli EPEC Not Detected (Not Detect.); E. coli ETEC Not Detected (Not Detect.); E. coli STEC Not Detected (Not Detect.); Entamoeba histolytica Not Detected (Not Detect.); Giardia lamblia Not Detected (Not Detect.); Norovirus GI/GII Not Detected (Not Detect.); Plesiomonas shigelloides Not Detected (Not Detect.); Rotavirus A Not Detected (Not Detect.); Salmonella Not Detected (Not Detect.); Sapovirus Not Detected (Not Detect.); Shigella sp./EIEC Not Detected (Not Detect.); Vibrio Not Detected (Not Detect.); Vibrio Cholerae Not Detected (Not Detect.); Yersinia enterocolitica Not Detected (Not Detect.)
[2024-04-26 15:21] VITALS: BP 104/63; PULSE 85; RESP 18; TEMP 36.6; O2SAT 94
[2024-04-26] MEDS: ondansetron HCL 4 MG/2 ML VIAL IVPUSH (17:59)
[2024-04-26 19:13] VITALS: BP 108/64; PULSE 83; RESP 18; TEMP 36.2; O2SAT 93
[2024-04-26] MEDS: Pravastatin Sodium 40 MG TABLET PO (20:25)
[2024-04-26] MEDS: Nortriptyline HCl 25 MG CAPSULE 75 MG PO (20:25)
[2024-04-26] MEDS: Melatonin 3 MG TABLET 6 MG PO (20:27)
[2024-04-27] MEDS: vancomycin HCL 125 MG CAPSULE 250 MG PO ×4 (01:44→20:21)
[2024-04-27] MEDS: guaiFENesin 100 MG/5 ML LIQUID PO ×2 (02:27→13:07)
[2024-04-27 04:00] VITALS: PULSE 88; RESP 18; TEMP 36.4; O2SAT 96
[2024-04-27] MEDS: metroNIDAZOLE/NS 500 MG/100 ML PIGGYBACK 100 MG IV ×3 (04:57→20:27)
[2024-04-27] MEDS: Levothyroxine Sodium 175 MCG TABLET PO (05:56)
[2024-04-27 07:05] VITALS: BP 97/51; PULSE 85; RESP 18; TEMP 36.7; O2SAT 93
[2024-04-27] MEDS: Tiotropium Bromide 2.5 mcg 1 PUFF/2.5 MCG MIST.INHAL INHALE (07:52)
[2024-04-27 07:53] VITALS: PULSE 85; RESP 16; O2SAT 93
[2024-04-27] MEDS: Hydroxychloroquine Sulfate 200 MG TABLET 300 MG PO ×2 (08:09→20:22)
[2024-04-27] MEDS: Famotidine 20 MG TABLET PO (08:09)
[2024-04-27] MEDS: buPROPion HCl XL 150 MG TAB.ER.24H PO (08:09)
[2024-04-27] MEDS: Folic Acid 1 MG TABLET PO (08:09)
[2024-04-27] MEDS: Ferrous Sulfate 324 MG TABLET.DR PO (08:09)
[2024-04-27] MEDS: Multivitamin TABLET 1 TAB PO (08:10)
[2024-04-27] MEDS: Apixaban 5 MG TABLET PO ×2 (08:10→20:49)
[2024-04-27] MEDS: predniSONE 2.5 MG TABLET PO (08:10)
[2024-04-27] MEDS: 0.9 % Sodium Chloride Flush 3 ML SYRINGE IVFLUSH ×2 (08:10→20:23)
[2024-04-27] MEDS: FLUoxetine HCl 20 MG CAPSULE 40 MG PO (08:10)
[2024-04-27] MEDS: Loratadine 10 MG TABLET PO (08:10)
--- NOTE | 2024-04-27 09:06 | P.PNIM_ITS ---
Subjective Subjective Date of Service: 04/27/24 Interval History: f/u on colitis interval history: stool sample is now + for cdif, diarrhea has slown,and she otherwerise feels better. Physical Exam 2 Vital Signs: Vital Signs: Last Vital Signs Temp 98.0 F 04/27/24 07:05 Pulse 85 04/27/24 07:53 Resp 16 04/27/24 07:53 BP 97/51 L 04/27/24 07:05 Pulse Ox 93 04/27/24 07:05 O2 Del Method Room Air 04/27/24 07:05 BMI result Body Mass Index 20.0 General: AO X 3, no acute distress Resp: CTA bilateral CVS: S1,S2,RRR., 1+ swelling in the legs GI: +BS, NT, no distention Skin: No rash Neuro: motor grossly intact Psych: appropriate affect Objective Data Active Medications Acetaminophen (Acetaminophen 325 Mg Tablet) 650 mg PO Q6H PRN PRN Reason: Pain, Mild (Pain Scale 1-3) Last Admin: 04/24/24 23:52 Dose: 650 mg Documented By: JAD Acetaminophen/Butalbital/Caffeine (Butalb/Acetamin/Caff 50/325/40 Tablet) 1 tab PO Q4H PRN PRN Reason: Headache Last Admin: 04/25/24 20:05 Dose: 1 tab Documented By: SANDY Albuterol Sulfate (Albuterol Sulfate 90 Mcg 8 Gm Inhaler) 1 puff INHALE DAILY PRN PRN Reason: Shortness Of Breath Or Wheezing Apixaban (Apixaban 5 Mg Tablet) 5 mg PO BID [facility] Last Admin: 04/27/24 08:10 Dose: 5 mg Documented By: FLORINDA Bupropion HCl (Bupropion Hcl Xl 150 Mg Tab.Er.24h) 150 mg PO DAILY [facility] Last Admin: 04/27/24 08:09 Dose: 150 mg Documented By: FLORINDA Famotidine (Famotidine 20 Mg Tablet) 20 mg PO DAILY [facility] Last Admin: 04/27/24 08:09 Dose: 20 mg Documented By: FLORINDA Ferrous Sulfate (Ferrous Sulfate 324 Mg Tablet.Dr) 324 mg PO DAILY [facility] Last Admin: 04/27/24 08:09 Dose: 324 mg Documented By: FLORINDA Fluoxetine HCl (Fluoxetine Hcl 20 Mg Capsule) 40 mg PO DAILY [facility] Last Admin: 04/27/24 08:10 Dose: 40 mg Documented By: FLORINDA Folic Acid (Folic Acid 1 Mg Tablet) 1 mg PO DAILY [facility] Last Admin: 04/27/24 08:09 Dose: 1 mg Documented By: FLORINDA Guaifenesin (Guaifenesin 100 Mg/5 Ml Liquid) 5 ml PO Q6H PRN PRN Reason: Cough Last Admin: 04/27/24 02:27 Dose: 5 ml Documented By: NAOMI Hydroxychloroquine Sulfate (Hydroxychloroquine Sulfate 200 Mg Tablet) 300 mg PO BID [facility] Last Admin: 04/27/24 08:09 Dose: 300 mg Documented By: FLORINDA Metronidazole (Flagyl) 500 mg in 100 mls @ 100 mls/hr IV Q8H [facility] Last Infusion: 04/27/24 06:46 Dose: Infused Documented By: NAOMI Levothyroxine Sodium (Levothyroxine Sodium 175 Mcg Tablet) 175 mcg PO DAILY@0630 [facility] Last Admin: 04/27/24 05:56 Dose: 175 mcg Documented By: NAOMI Loratadine (Loratadine 10 Mg Tablet) 10 mg PO DAILY [facility] Last Admin: 04/27/24 08:10 Dose: 10 mg Documented By: FLORINDA Lorazepam (Lorazepam 1 Mg Tablet) 1 mg PO DAILY PRN PRN Reason: anxiety Melatonin (Melatonin 3 Mg Tablet) 6 mg PO BEDTIME PRN PRN Reason: Insomnia Last Admin: 04/26/24 20:27 Dose: 6 mg Documented By: NAOMI Comments: insomia Multivitamins/Vitamin C (Multivitamin Tablet) 1 tab PO DAILY [facility] Last Admin: 04/27/24 08:10 Dose: 1 tab Documented By: FLORINDA Nortriptyline HCl (Nortriptyline Hcl 25 Mg Capsule) 75 mg PO BEDTIME [facility] Last Admin: 04/26/24 20:25 Dose: 75 mg Documented By: NAOMI Ondansetron HCl (Ondansetron Hcl 4 Mg/2 Ml Vial) 4 mg IVPUSH Q8H PRN PRN Reason: Nausea and Vomiting Last Admin: 04/26/24 17:59 Dose: 4 mg Documented By: CHELI Oxycodone HCl (Oxycodone Hcl Immed Release 5 Mg Tablet) 5 mg PO Q6H PRN PRN Reason: Pain, Severe (Pain Scale 7-10) Last Admin: 04/26/24 14:51 Dose: 5 mg Documented By: CHELI Pravastatin Sodium (Pravastatin Sodium 40 Mg Tablet) 40 mg PO BEDTIME [facility] Last Admin: 04/26/24 20:25 Dose: 40 mg Documented By: CASTILEzio Prednisone (Prednisone 2.5 Mg Tablet) 2.5 mg PO DAILY [facility] Last Admin: 04/27/24 08:10 Dose: 2.5 mg Documented By: FLORINDA Sodium Chloride (0.9 % Sodium Chloride Flush 3 Ml Syringe) 3 ml IVFLUSH QSHIFT [facility] Last Admin: 04/27/24 08:10 Dose: 3 ml Documented By: FLORINDA Tiotropium Luana (Tiotropium Luana 2.5 Mcg 1 Puff/2.5 Mcg Mist.Inhal) 1 puff INHALE DAILY [facility] Last Admin: 04/27/24 07:52 Dose: 1 puff Documented By: BLAWALTER Vancomycin HCl (Vancomycin Hcl 125 Mg Capsule) 250 mg PO Q6H [facility] Last Admin: 04/27/24 08:09 Dose: 250 mg Documented By: FLORINDA Labs 04/25/24 06:27 04/25/24 06:27 Labs: Laboratory Results - last 24 hr 04/26/24 09:45 Stl C. cayetanensis PCR Not Detected Stool Rotavirus A PCR Not Detected Stl Adenov F 40/41 PCR Not Detected Stool Astrovirus (PCR) Not Detected Stool Campylobacter PCR Not Detected Stool Cryptosporidium PCR Not Detected Stl Sh Tox Pr E STEC PCR Not Detected Stool E coli O157 PCR Not applicable Stl Enterotoxigenic E PCR Not Detected Stool EPEC (PCR) Not Detected Stool EAEC (PCR) Not Detected Stl E. histolytica PCR Not Detected Stool Giardia Lamblia PCR Not Detected Stl P. shigelloides PCR Not Detected Stool Salmonella PCR Not Detected Stool Sapovirus (PCR) Not Detected Stl Shigella/EIEC PCR Not Detected St Y.enterocolitica PCR Not Detected Stool Vibrio (PCR) Not Detected Stl Vibrio cholerae PCR Not Detected Stl Norovirus GI/GII PCR Not Detected C. difficile Tox B Gene POSITIVE A* C. difficile Toxin A&B Positive A* C. difficile Interpret SEE NOTE Microbiology Microbiology Results: Microbiology 04/24/24 20:26 Blood Culture - Preliminary Blood - Venous No growth after 48 hours. 04/24/24 20:04 Blood Culture - Preliminary Blood - Venous No growth after 48 hours. Assessment and Plan (1) Colitis: Status: Acute Plan Pt is a -year-old female with a PMH significant for?COPD, rheumatoid arthritis on chronic prednisone, SLE on hydroxychloroquine, fibromyalgia, hypothyroidism, history of CVA, peripheral arterial disease on Eliquis, history of C diff, and Charcot joint of foot who presents to the ED for evaluation of nonbloody diarrhea?x1 month. Pt will be admitted to the hospital for treatment and further evaluation of colitis with sepsis. Colitis with sepsis, d/t C dif, has recurrent history, last episode in March 2023 -DC Ceftriaxone, added PO Vanco, continue iV flagyl for now -discuss treatment options with iD Abnormal CXR--CT chest 1. Multiple regions of focal patchy and curvilinear opacities as well as tree-in-bud type nodularity, overall right lung greater than left. Overall appearance is suspicious for an infectious/inflammatory process, though a component of underlying scarring may also be present. Follow-up chest CT in 3 months is recommended to assess for resolution and exclude underlying neoplastic nodularity. 2. Mildly enlarged mediastinal lymph nodes, which may be reactive. Attention on follow-up recommended. 3. Mural prominence of the limited included colon in the left upper quadrant. Clinical correlation recommended as colitis cannot be excluded. Bilateral lower leg edema--US suggest clot that is old, already on anticoagulation with eliquis COPD Not in acute exacerbation Continue home inhalers Rheumatoid arthritis Continue prednisone Lupus Continue hydroxychloroquine Peripheral artery disease Continue Eliquis Hypothyroidism Continue levothyroxine HLD Continue statin Mood disorder Continue mood stabilizers Full Code DVT Prophylaxis: On Eliquis cdif colitis with frequent diarrhea Quality Stroke Does the patient have a stroke diagnosis?: No VTE Prior VTE?: No VTE Risk Level:: Medical - moderate - high VTE Device Contraindication: Treatment Not Indicated VTE Drug Contraindication: N/A - Med Ordered
--- NOTE | 2024-04-27 12:59 | MHC.CM.PN ---
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
[2024-04-27 15:26] VITALS: BP 94/55; PULSE 88; RESP 18; TEMP 36.4; O2SAT 93
--- NOTE | 2024-04-27 16:32 | P.CNID_ITS ---
History of Present Illness Data of Consult Service Date: 04/27/24 Requesting physician: Hua Zepeda Primary Care Provider: Barbie Brown MD HPI Reason for consult: diarrhea She presents with watery stool 3-4 times a day. She has Cdiff positive. She had in past as well. She has no fever or chills. She is taking po Review of Systems 2 Review of Systems: Yes all other systems are reviewed and are negative PMFSH Past Medical History Medical History (Updated 04/27/24 @ 16:35 by Karen Tabor MD) C. difficile colitis Sepsis Community acquired pneumonia Bilateral pneumonia Open wound of right elbow Respiratory failure with hypoxia Pneumonia due to COVID-19 virus Acute respiratory distress syndrome (ARDS) due to COVID-19 virus Acute exacerbation of chronic obstructive airways disease Acute hypoxemic respiratory failure due to COVID-19 Ulcer of lower extremity Sepsis with acute hypoxic respiratory failure without septic shock Encounter for testing for latent tuberculosis infection Falling Charcot's joint of foot Cellulitis Redness and swelling of lower leg COPD (chronic obstructive pulmonary disease) C. difficile colitis Secondary bacterial pneumonia Immunosuppression due to chronic steroid use Mixed connective tissue disease Cellulitis of right leg PAD (peripheral artery disease) Varicose veins of right lower extremity with inflammation Rheumatoid arthritis Cellulitis CVA (cerebral vascular accident) Proteinuria Fibromyalgia Hypothyroid Lupus Family History Family History Father No problems noted. Mother Lung cancer Rheumatoid arthritis Family history: reviewed and not pertinent Surgical History Surgical History Status post incision and drainage History of breast lump/mass excision History of excision of mass History of partial hysterectomy History of cholecystectomy History of bunionectomy Social History Social History Household Members: Children Household Members Other:: 3 Housing: House Do you presently have visiting nurse or other home services: Yes ([employer]) Alcohol intake: current Alcohol intake frequency: holidays/special occasions only Comment: pt asleep Patient Tobacco Use Status: Current everyday Tobacco user Tobacco use type: Cigarette Cigarette Packs Per Day: 0.5 Cigarettes Per Day: 20 Years Smoked: 30 Second Hand Smoke Exposure: No Substance Use Type: Marijuana Advance Directives Date on File: 11/26/21 service: No Current occupational status: unemployed and disabled Current occupation: right hand dominant Meds Allergies Allergy/AdvReac Type Severity Reaction Status Date / Time clarithromycin Allergy Intermediate FACIAL Verified 04/24/24 10:37 [CLARITHROMYCIN] SWELLING/REDNESS, facial rash, facial rash, facial rash, facial rash Active Medications: Current Medications Acetaminophen (Acetaminophen 325 Mg Tablet) 650 mg PO Q6H PRN PRN Reason: Pain, Mild (Pain Scale 1-3) Last Admin: 04/24/24 23:52 Dose: 650 mg Acetaminophen/Butalbital/Caffeine (Butalb/Acetamin/Caff 50/325/40 Tablet) 1 tab PO Q4H PRN PRN Reason: Headache Last Admin: 04/25/24 20:05 Dose: 1 tab Albuterol Sulfate (Albuterol Sulfate 90 Mcg 8 Gm Inhaler) 1 puff INHALE DAILY PRN PRN Reason: Shortness Of Breath Or Wheezing Apixaban (Apixaban 5 Mg Tablet) 5 mg PO BID [facility] Last Admin: 04/27/24 08:10 Dose: 5 mg Bupropion HCl (Bupropion Hcl Xl 150 Mg Tab.Er.24h) 150 mg PO DAILY [facility] Last Admin: 04/27/24 08:09 Dose: 150 mg Famotidine (Famotidine 20 Mg Tablet) 20 mg PO DAILY [facility] Last Admin: 04/27/24 08:09 Dose: 20 mg Ferrous Sulfate (Ferrous Sulfate 324 Mg Tablet.Dr) 324 mg PO DAILY [facility] Last Admin: 04/27/24 08:09 Dose: 324 mg Fluoxetine HCl (Fluoxetine Hcl 20 Mg Capsule) 40 mg PO DAILY [facility] Last Admin: 04/27/24 08:10 Dose: 40 mg Folic Acid (Folic Acid 1 Mg Tablet) 1 mg PO DAILY [facility] Last Admin: 04/27/24 08:09 Dose: 1 mg Guaifenesin (Guaifenesin 100 Mg/5 Ml Liquid) 5 ml PO Q6H PRN PRN Reason: Cough Last Admin: 04/27/24 13:07 Dose: 5 ml Hydroxychloroquine Sulfate (Hydroxychloroquine Sulfate 200 Mg Tablet) 300 mg PO BID [facility] Last Admin: 04/27/24 08:09 Dose: 300 mg Metronidazole (Flagyl) 500 mg in 100 mls @ 100 mls/hr IV Q8H [facility] Last Admin: 04/27/24 13:10 Dose: 100 mls/hr Levothyroxine Sodium (Levothyroxine Sodium 175 Mcg Tablet) 175 mcg PO DAILY@0630 [facility] Last Admin: 04/27/24 05:56 Dose: 175 mcg Loratadine (Loratadine 10 Mg Tablet) 10 mg PO DAILY [facility] Last Admin: 04/27/24 08:10 Dose: 10 mg Lorazepam (Lorazepam 1 Mg Tablet) 1 mg PO DAILY PRN PRN Reason: anxiety Melatonin (Melatonin 3 Mg Tablet) 6 mg PO BEDTIME PRN PRN Reason: Insomnia Last Admin: 04/26/24 20:27 Dose: 6 mg Multivitamins/Vitamin C (Multivitamin Tablet) 1 tab PO DAILY [facility] Last Admin: 04/27/24 08:10 Dose: 1 tab Nortriptyline HCl (Nortriptyline Hcl 25 Mg Capsule) 75 mg PO BEDTIME [facility] Last Admin: 04/26/24 20:25 Dose: 75 mg Ondansetron HCl (Ondansetron Hcl 4 Mg/2 Ml Vial) 4 mg IVPUSH Q8H PRN PRN Reason: Nausea and Vomiting Last Admin: 04/26/24 17:59 Dose: 4 mg Oxycodone HCl (Oxycodone Hcl Immed Release 5 Mg Tablet) 5 mg PO Q6H PRN PRN Reason: Pain, Severe (Pain Scale 7-10) Last Admin: 04/26/24 14:51 Dose: 5 mg Pravastatin Sodium (Pravastatin Sodium 40 Mg Tablet) 40 mg PO BEDTIME [facility] Last Admin: 04/26/24 20:25 Dose: 40 mg Prednisone (Prednisone 2.5 Mg Tablet) 2.5 mg PO DAILY [facility] Last Admin: 04/27/24 08:10 Dose: 2.5 mg Sodium Chloride (0.9 % Sodium Chloride Flush 3 Ml Syringe) 3 ml IVFLUSH QSHIFT [facility] Last Admin: 04/27/24 08:10 Dose: 3 ml Tiotropium Chancellor (Tiotropium Chancellor 2.5 Mcg 1 Puff/2.5 Mcg Mist.Inhal) 1 puff INHALE DAILY [facility] Last Admin: 04/27/24 07:52 Dose: 1 puff Vancomycin HCl (Vancomycin Hcl 125 Mg Capsule) 250 mg PO Q6H [facility] Last Admin: 04/27/24 13:08 Dose: 250 mg Home Medications ?Medication ?Instructions ?Recorded ?Confirmed ?Last Taken ?Type pravastatin 40 mg tablet 40 mg PO BEDTIME 08/15/20 04/24/24 04/23/24 18:30 History albuterol sulfate 90 mcg/actuation 1 puff inhalation DAILY PRN 08/31/20 04/24/24 04/24/24 06:00 History aerosol inhaler Shortness Of Breath Or Wheezing bupropion HCl 100 mg tablet,12 hr 100 mg PO BID 08/31/20 04/24/24 04/24/24 06:00 History sustained-release nortriptyline 75 mg capsule 75 mg PO BEDTIME 04/18/21 04/24/24 04/23/24 18:30 History loratadine 10 mg tablet 10 mg PO DAILY allergies 10/21/21 04/24/24 04/24/24 06:00 History nebulizer and compressor (Vios #1 ea 02/15/22 01/15/24 Unknown History Aerosol Delivery System) famotidine 20 mg tablet 1 tab PO DAILY 05/24/22 04/24/24 04/24/24 06:00 History qmwvnxkltf-uvnjpiynqpaxx-alscszve 1 - 2 tab PO DAILY PRN headache 11/08/22 04/24/24 04/24/24 06:00 History 50 mg-325 mg-40 mg tablet ferrous sulfate 325 mg (65 mg 1 tab PO DAILY 11/08/22 04/24/24 04/24/24 06:00 History iron) tablet (FeroSul) tiotropium bromide 2.5 1 puff inhalation DAILY 11/08/22 04/24/24 04/24/24 06:00 History mcg/actuation mist for inhalation (Spiriva Respimat) fluoxetine 20 mg capsule 2 cap PO DAILY 12/27/22 04/24/24 04/24/24 06:00 History apixaban 5 mg tablet (Eliquis) 5 mg PO BID 01/03/23 04/24/24 04/24/24 06:00 History folic acid 1 mg tablet 1 mg PO DAILY 01/03/23 04/24/24 04/24/24 06:00 History levothyroxine 175 mcg tablet 175 mcg PO DAILY 01/03/23 04/24/24 04/24/24 06:00 History multivitamin (One Daily 1 tab PO DAILY 02/04/24/24 04/24/24 06:00 History Multivitamin tablet) tramadol 50 mg tablet 50 mg PO BEDTIME PRN Pain 10/26/23 04/24/24 04/24/24 06:00 History hydroxychloroquine 200 mg tablet 300 mg PO BID 04/24/24 04/24/24 04/24/24 06:00 History lorazepam 1 mg tablet 1 mg PO DAILY PRN anxiety 04/24/24 04/24/24 04/24/24 06:00 History Physical Exam 2 Vital Signs: Vital Signs: Last Vital Signs Temp 97.5 F 04/27/24 15:26 Pulse 88 04/27/24 15:26 Resp 18 04/27/24 15:26 BP 94/55 L 04/27/24 15:26 Pulse Ox 93 04/27/24 15:26 O2 Del Method Room Air 04/27/24 07:05 BMI result Body Mass Index 20.0 Const: General: cooperative HEENT: Head: Yes normal to inspection Face and sinus: Yes normal facial exam Mouth: Normal oral and palatal mucosa present Teeth and gingiva: d entition normal Eyes: General: appearance normal, both eyes and all related structures P upils: Equal, round and reactive pupils present Resp: Effort & Inspection: normal respiratory effort Cardio: Rate: regular rate Rhythm: regular rhythm GI: Palpation (GI): Soft to palpation and nontender : General: Yes no CVA tenderness Back/Spine/Pelvis: Back: no CVA tenderness Skin: General skin exam: no rashes or lesions noted Neuro: General: moves all extremities Cranial nerves: Yes Equal, round and reactive pupils present Extrem: General: Yes normal to inspection Psych: Appearance: grossly normal Results Labs 04/25/24 06:27 04/25/24 06:27 Microbiology Microbiology Results: Microbiology 04/24/24 20:26 Blood - Venous Blood Culture - Preliminary No growth after 48 hours. 04/24/24 20:04 Blood - Venous Blood Culture - Preliminary No growth after 48 hours. Assessment and Plan (1) C. difficile colitis: Status: Acute Plan She has Cdiff last year. She has again and initial leukocytosis but now resolved, so no severe Cdiff now. Stop IV Flagyl. po [id number] qid on discharge and probable taper. Can see as outpatient.
[2024-04-27] MEDS: ondansetron HCL 4 MG/2 ML VIAL IVPUSH (18:35)
[2024-04-27] MEDS: oxyCODONE HCl Immed Release 5 MG TABLET PO (18:35)
[2024-04-27 19:20] VITALS: BP 110/63; PULSE 85; RESP 16; O2SAT 95
[2024-04-27] MEDS: Nortriptyline HCl 25 MG CAPSULE 75 MG PO (20:21)
[2024-04-27] MEDS: Pravastatin Sodium 40 MG TABLET PO (20:22)
[2024-04-28] MEDS: vancomycin HCL 125 MG CAPSULE 250 MG PO ×3 (01:31→14:52)
[2024-04-28 03:09] VITALS: BP 101/54; PULSE 84; RESP 14; TEMP 36.5; O2SAT 93
[2024-04-28] MEDS: Levothyroxine Sodium 175 MCG TABLET PO (05:26)
[2024-04-28] MEDS: metroNIDAZOLE/NS 500 MG/100 ML PIGGYBACK 100 MG IV (05:29)
[2024-04-28 07:31] VITALS: PULSE 84; RESP 14; O2SAT 97
[2024-04-28] MEDS: Tiotropium Bromide 2.5 mcg 1 PUFF/2.5 MCG MIST.INHAL INHALE (07:31)
[2024-04-28 08:00] VITALS: BP 129/75; PULSE 92; RESP 16; TEMP 36.2; O2SAT 97
[2024-04-28] MEDS: Hydroxychloroquine Sulfate 200 MG TABLET 300 MG PO (08:28)
[2024-04-28] MEDS: buPROPion HCl XL 150 MG TAB.ER.24H PO (08:28)
[2024-04-28] MEDS: Folic Acid 1 MG TABLET PO (08:28)
[2024-04-28] MEDS: predniSONE 2.5 MG TABLET PO (08:28)
[2024-04-28] MEDS: Ferrous Sulfate 324 MG TABLET.DR PO (08:28)
[2024-04-28] MEDS: Apixaban 5 MG TABLET PO (08:28)
[2024-04-28] MEDS: Loratadine 10 MG TABLET PO (08:28)
[2024-04-28] MEDS: Multivitamin TABLET 1 TAB PO (08:28)
[2024-04-28] MEDS: Famotidine 20 MG TABLET PO (08:29)
[2024-04-28] MEDS: 0.9 % Sodium Chloride Flush 3 ML SYRINGE IVFLUSH (08:29)
[2024-04-28] MEDS: FLUoxetine HCl 20 MG CAPSULE 40 MG PO (08:29)
[2024-04-28] MEDS: ondansetron HCL 4 MG/2 ML VIAL IVPUSH (08:42)
[2024-04-28] MEDS: oxyCODONE HCl Immed Release 5 MG TABLET PO ×2 (08:42→15:10)
--- NOTE | 2024-04-28 14:51 | P.DS_ITS ---
DS: Providers Provider Date of Service: 04/28/24 Date of admission: 04/24/24 20:40 Date of discharge: 04/28/24 Primary care physician: Barbie Brown MD Consults: 04/27/24 09:11 Consult to Infectious Diseases Routine Consulting Provider: [facility] [facility] Reason for consultation: recurrent cdif Has provider been notified: No Attending physician on discharge: Bonnie hCeema Discharging clinician: Bonnie Cheema DS: Diagnosis Discharge Diagnosis (1) C. difficile colitis: Status: Acute DS: Summary Hospital Course Hospital Course: 48 y/o F female with a PMH significant for COPD, rheumatoid arthritis on chronic prednisone, SLE on hydroxychloroquine, fibromyalgia, hypothyroidism, history of CVA, peripheral arterial disease on Eliquis, history of C diff, and Charcot joint of foot who presents to the ED for evaluation of nonbloody, foul-smelling diarrhea x1 month. Patient has a history of C diff colitis, last admitted to the hospital on 12/27/2022. Reports she has been having nonbloody diarrhea, 2-3 episodes daily, for the past month. Also endorses a 30 lb weight loss during this time. States has been trying to eat and drink normally, but feels nauseous midway through a meal. Has not been vomiting, but had over all reduced p.o. intake. Reports intermittent mild lower abdominal pain. Denies shortness of breath or dyspnea upon exertion, but has had intermittent cough occasionally productive of yellowish sputum x2 weeks. No fever, chills. In the ED pt was tachycardic up to 100, vitals otherwise WNL. Labs were significant for leukocytosis of 15.1, alk-phos 130, and albumin 1.4. Stable H&H. No significant electrolyte abnormalities. Renal function baseline. Lactic acid WNL at 0.5. CXR showed new bilateral masslike densities, nonspecific, but could be infectious, inflammatory, or malignant. Also showed chronic multifocal areas of architectural distortion and chronic significant interstitial thickening. CT of abdomen and pelvis found diffuse colonic and rectal wall thickening worse at splenic flexure and descending colon. Also found new indeterminate 1.1 cm left adrenal nodule; unchanged non cystic appearing 1.8 cm right hepatic lobe liver lesion; and increased right greater than left external iliac and inguinal lymphadenopathy. CT of chest pending. Venous duplex ultrasound of lower legs pending. EKG demonstrated normal sinus rhythm without evidence of ST elevations or depressions. Pt was treated with IVF, ceftriaxone, and metronidazole. Pt will be admitted to the hospital for treatment and further evaluation of colitis with sepsis. Hospital course: 48-year-old female who came to the hospital because of diarrhea with sepsis,has recurrent history, last episode in March 2023- had leucocytocis,C diff came positive, blood cultures sent: Patient was started on p.o. vanco, IV Flagyl: Leukocytosis resolved, no fever or abdominal pain, tolerating diet, blood culture negative at 48 hour, 2BMs today: Patient will be going home with vancomycin taper(as prescribed above.) Abnormal CXR--CT chest : Multiple regions of focal patchy and curvilinear opacities as well as tree-in-bud type nodularity, overall right lung greater than left. Overall appearance is suspicious for an infectious/inflammatory process, though a component of underlying scarring may also be present.Follow-up chest CT in 3 months is recommended to assess for resolution and exclude underlying neoplastic nodularity. Patient currently does not have any respiratory symptoms, consider outpatient chest imaging as above. Patient is to follow-up with PCP and, consider outpatient pulmonary evaluation for abnormal chest imaging. Further management outpatient. Ct abdomen showed colitis in addition incidental findings: New indeterminate 1.1 cm left adrenal nodule. Recommend further evaluation with a nonemergent adrenal protocol MRI. Unchanged noncystic appearing 1.8 cm right hepatic lobe liver lesion that could be definitely characterized with the above recommended MRI. patient Lft's seems fine ,allkaline phos seems improving. plan: 125 mg 4 times daily for 10 to 14 days, then 125 mg twice daily for 7 days, then 125 mg once daily for 7 days, then 125 mg every 3 days for 2 weeks. Consider pulmonary follow-up for abnormal chest imaging as above. also consider MRI abdomen for above adrenal and liver abnormalities (please see ct abdomen details in imaging section below). Above management discussed with the patient detail length she understand and in agreement with the above plan, time spent 50 minute. Time Attestation Total time managing care of this patient today: 50 mintues. Discharge Coordination Time (in mins): 50 min Quality: Safe Use of Opioids Does Pt have an Active Cancer Diagnosis on the Problem List?: No Quality: Stroke Does the patient have a stroke diagnosis?: No Physical Exam Vital Signs: Vital Signs: Last Vital Signs Temp 97.2 F 04/28/24 08:00 Pulse 92 04/28/24 08:00 Resp 16 04/28/24 08:00 BP 129/75 04/28/24 08:00 Pulse Ox 97 04/28/24 08:00 O2 Del Method Room Air 04/28/24 03:09 BMI result Body Mass Index 20.0 General: AO X 3, no acute distress Resp: CTA bilateral CVS: S1,S2,RRR. GI: +BS, NT, no distention,bs present. Skin: No rash Neuro: motor grossly intact Psych: appropriate affect DS: Data Data Completed and Pending Completed studies during hospitalization [Text1]: Procedures Assistance with Respiratory Ventilation, Less than 24 Consecutive Hours, Continuous Positive Airway Pressure (11/25/21) Drainage of Right Elbow Bursa and Ligament, Open Approach (11/08/22) Excision of Left Lower Leg Subcutaneous Tissue and Fascia, Open Approach, Diagnostic (08/31/20) Insertion of Endotracheal Airway into Trachea, Via Natural or Artificial Opening Endoscopic (11/25/21) Insertion of Infusion Device into Superior Vena Cava, Percutaneous Approach (10/26/23) Introduction of Baricitinib into Mouth and Pharynx, External Approach, [employer] (11/25/21) Introduction of Remdesivir Anti-infective into Peripheral Vein, Percutaneous Approach, [employer] (11/25/21) Introduction of Vasopressor into Peripheral Vein, Percutaneous Approach (11/25/21) Respiratory Ventilation, 24-96 Consecutive Hours (11/25/21) Respiratory Ventilation, Greater than 96 Consecutive Hours (11/25/21) Transfusion of Nonautologous Red Blood Cells into Peripheral Vein, Percutaneous Approach (11/25/21) Ultrasonography of Superior Vena Cava, Guidance (10/26/23) Labs on day of discharge: Preliminary micro results at discharge 04/24/24 20:26 Blood Culture - Preliminary Blood - Venous No growth after 48 hours. 04/24/24 20:04 Blood Culture - Preliminary Blood - Venous No growth after 48 hours. Imaging Chest x-ray: Radiologist's impression: ITS Impressions Chest X-Ray 04/24/24 17:22 IMPRESSION: 1. New bilateral masslike densities, nonspecific could be infectious, inflammatory or malignant. Recommend clinical correlation and short-term follow-up with CT chest in 3 months. 2. Chronic multifocal areas of architectural distortion and chronic significant interstitial thickening. Abdomen/Pelvis CT 04/24/24 17:32 IMPRESSION: Very limited noncontrast examination. 1. Diffuse colonic and rectal wall thickening that is more pronounced and severe at the level of the splenic flexure and descending colon. Etiology of the colitis is uncertain, there is moderate to large amount of stool burden that could indicate some degree of stercoral colitis. Evaluation of ischemic colitis is limited in the absence of IV contrast. 2. Increased bronchiectasis, mucus plugging and reticulation in the lung bases with increased/new clusters of solid peribronchial nodules bilaterally concerning for an infectious or inflammatory process within a background of fibrosis and interstitial lung disease. Recommend short-term follow-up with outpatient CT chest in 3 months. 3. New indeterminate 1.1 cm left adrenal nodule. Recommend further evaluation with a nonemergent adrenal protocol MRI. 4. Unchanged noncystic appearing 1.8 cm right hepatic lobe liver lesion that could be definitely characterized with the above recommended MRI. 5. Increased right greater than left external iliac and inguinal lymphadenopathy. Recommend attention on follow-up in future examinations. Chest CT 04/24/24 19:34 IMPRESSION: 1. Multiple regions of focal patchy and curvilinear opacities as well as tree-in-bud type nodularity, overall right lung greater than left. Overall appearance is suspicious for an infectious/inflammatory process, though a component of underlying scarring may also be present. Follow-up chest CT in 3 months is recommended to assess for resolution and exclude underlying neoplastic nodularity. 2. Mildly enlarged mediastinal lymph nodes, which may be reactive. Attention on follow-up recommended. 3. Mural prominence of the limited included colon in the left upper quadrant. Clinical correlation recommended as colitis cannot be excluded. 4. Coronary artery calcifications. Correlation with cardiac risk factors is recommended. Venous Duplex 04/24/24 23:01 IMPRESSION: 1. Filling defect in the left saphenofemoral junction of indeterminate age, although echogenicity and morphology favor subacute to chronic thrombus. 2. No additional DVT in the bilateral lower extremities. 3. Subcutaneous swelling/edema. 4. Enlarged, likely reactive inguinal lymph nodes bilaterally. This critical result was discussed with Dr. Julio C Cox at 04/25/2024 12:52 AM and it was ascertained that the content and urgency of the report was understood at the time of direct communication. Discharge Plan Discharge Anticipated Discharge Date/Time: 04/28/24 13:46 Patient Disposition: Home, Self-Care Discharge Diagnosis: c diff diarrhea with sepsis Referrals: Barbie Dunn MD [Primary Care Provider] - 1 Week Discharge Medications: New vancomycin 125 mg Capsule 250 mg PO Q6H Qty: 76 0RF Rx Instructions: 125 mg 4 times daily for 10 to 14 days, then 125 mg twice daily for 7 days, then 125 mg once daily for 7 days, then 125 mg every 3 days for 2 weeks. Continued prednisone 2.5 mg tablet 2.5 mg PO DAILY Qty: 30 1RF bupropion HCl 100 mg tablet sustained-release 12 hr 100 mg PO BID albuterol sulfate 90 mcg/actuation HFA aerosol inhaler 1 puff inhalation DAILY PRN (Reason: Shortness Of Breath Or Wheezing) loratadine 10 mg Tablet 10 mg PO DAILY fluoxetine 20 mg capsule 2 cap PO DAILY famotidine 20 mg tablet 1 tab PO DAILY [id number] 50-325-40 mg tablet 1 - 2 tab PO DAILY PRN (Reason: headache) ferrous sulfate [FeroSul] 325 mg (65 mg iron) tablet 1 tab PO DAILY Spiriva Respimat 2.5 mcg/actuation mist 1 puff INHALATION DAILY multivitamin [One Daily Multivitamin] Tablet 1 tab PO DAILY levothyroxine 175 mcg tablet 175 mcg PO DAILY folic acid 1 mg tablet 1 mg PO DAILY Eliquis 5 mg tablet 5 mg PO BID tramadol 50 mg tablet 50 mg PO BEDTIME PRN (Reason: Pain) hydroxychloroquine 200 mg tablet 300 mg PO BID lorazepam 1 mg tablet 1 mg PO DAILY PRN (Reason: anxiety) nortriptyline 75 mg capsule 75 mg PO BEDTIME pravastatin 40 mg tablet 40 mg PO BEDTIME (DME) nebulizer and compressor [Vios Aerosol Delivery System] Device See Rx Instructions .ROUTE DIRECTED Qty: 1 Rx Instructions: As directed Discharge Orders: Discharge Order (Routine); Ordered 04/28/24 Ordered By: Bonnie Cheema Diet: Advance to usual diet Activity on Discharge: As tolerated Stand Alone Forms: Patient Portal Discharge page Print Language: Turkmen Care Plan Goals: 48-year-old female who came to the hospital because of diarrhea with sepsis,has recurrent history, last episode in March 2023-C diff came positive, blood cultures sent: Patient was started on p.o. vanco, IV Flagyl: Leukocytosis resolved, no fever no abdominal pain, tolerating diet, blood culture negative at 48 hour, 2BMs today: Patient will be going home with vancomycin taper(as prescribed above.) Abnormal CXR--CT chest : Multiple regions of focal patchy and curvilinear opacities as well as tree-in-bud type nodularity, overall right lung greater than left. Overall appearance is suspicious for an infectious/inflammatory process, though a component of underlying scarring may also be present.Follow-up chest CT in 3 months is recommended to assess for resolution and exclude underlying neoplastic nodularity. Patient currently does not have any respiratory symptoms, consider outpatient chest imaging as above. Patient is to follow-up with PCP and, consider outpatient pulmonary evaluation for abnormal chest imaging. Further management outpatient. Health Concerns: as above. Plan of Treatment: as above. Assessment: as above. Discharge Date/Time: 04/28/24 15:50
--- NOTE | 2024-04-28 14:53 | MHC.CM.PN ---
PT GOING HOME SELF CARE
== END 2024-04-28 15:50 | disposition home or self-care (01) | DRG 720 ==
LOC: HO.ED 16:42 → HO.EDOVER 20:46 → HO.S3 04-25 13:53
PROVIDERS: Admitting Provider Student in an Organized Health Care Education/Training Program; Emergency Provider Internal Medicine; PCP Family Medicine; Visit Provider Internal Medicine
DX: A41.9 Sepsis, unspecified organism (principal); A04.71 Enterocolitis due to Clostridium difficile, recurrent; M32.9 Systemic lupus erythematosus, unspecified; E03.9 Hypothyroidism, unspecified; I73.9 Peripheral vascular disease, unspecified; E78.5 Hyperlipidemia, unspecified; R93.2 Abnormal findings on diagnostic imaging of liver and biliary tract; R93.89 Abnormal findings on diagnostic imaging of other specified body structures; M06.9 Rheumatoid arthritis, unspecified; F17.210 Nicotine dependence, cigarettes, uncomplicated; Z20.822 Contact with and (suspected) exposure to COVID-19; Z71.6 Tobacco abuse counseling; Z79.01 Long term (current) use of anticoagulants; Z79.52 Long term (current) use of systemic steroids; Z79.890 Hormone replacement therapy; Z79.899 Other long term (current) drug therapy
CPT/HCPCS: 0241U; 36415; 71045; 71250; 74176; 80048; 80053; 82248; 83605; 83690; 83880; 85025; 85610; 85730; 87040; 87324; 87493; 87507; 93005; 93970; 94640; 94664; 99285; J0696; J1836; J2405; P9047

== ENCOUNTER → 2024-04-24 10:39 | Outpatient (BNV) | payer MEDICAID, SELFPAY | PROVIDERS: Admitting Provider Student in an Organized Health Care Education/Training Program; Emergency Provider Internal Medicine; PCP Family Medicine; Visit Provider Internal Medicine Cardiovascular Disease | DX: R94.31 Abnormal electrocardiogram [ECG] [EKG] (principal) | CPT/HCPCS: 93010 ==

== ENCOUNTER → 2024-04-24 20:40 | Outpatient (BNV) | payer MEDICAID, SELFPAY | PROVIDERS: Admitting Provider Student in an Organized Health Care Education/Training Program; Emergency Provider Internal Medicine; PCP Family Medicine; Visit Provider Student in an Organized Health Care Education/Training Program | DX: A04.72 Enterocolitis due to Clostridium difficile, not specified as recurrent (principal) | CPT/HCPCS: 99223; 99232; 99239 ==

== ENCOUNTER → 2024-04-24 20:40 | Outpatient (BNV) | payer MEDICAID, SELFPAY | PROVIDERS: Admitting Provider Student in an Organized Health Care Education/Training Program; Emergency Provider Internal Medicine; PCP Family Medicine; Visit Provider Internal Medicine | DX: A04.72 Enterocolitis due to Clostridium difficile, not specified as recurrent (principal) | CPT/HCPCS: 99222 ==

== ENCOUNTER 2024-05-22 12:05 | Inpatient (IN) | payer MEDICAID, SELFPAY ==
[2024-05-22] VITALS (7 sets, daily range): BP systolic 119–139; BP diastolic 55–87; PULSE 88–100; RESP 16–20; TEMP 36.6–37; O2SAT 93–96; BMI 22.9
--- NOTE | ~2024-05-22 | US_ITS ---
EXAMINATION: US VENOUS ULTRASOUND WITH DOPPLER LOWER EXTREMITY, BILATERAL CLINICAL INFORMATION: Pain and leg swelling COMPARISON: Venous duplex 12/23/2019 TECHNIQUE: Ultrasound of the deep veins is performed from the hip to the calf with compression sonography and color and pulse Doppler assessment. Spectral analysis with color-flow imaging is performed. FINDINGS: RIGHT: There is normal venous compression and respiratory variation and augmented flow. The visualized common femoral vein, superficial femoral vein, profunda femoral vein, popliteal vein, and the trifurcation region shows no evidence of deep venous thrombosis. There is no significant popliteal fossa cyst. LEFT: There is normal venous compression and respiratory variation and augmented flow. The visualized common femoral vein, superficial femoral vein, profunda femoral vein, popliteal vein, and the trifurcation region shows no evidence of deep venous thrombosis. There is no significant popliteal fossa cyst. US/US venous duplex LE IMPRESSION: No DVT demonstrated in the bilateral lower extremities.
--- NOTE | ~2024-05-22 | XR_ITS ---
EXAMINATION: XR CHEST CLINICAL INFORMATION: Cough COMPARISON: Chest CT and chest x-ray April 24, 2024 TECHNIQUE: 2 views of the chest were obtained. FINDINGS: Cardiac silhouette is normal in size. The lungs are hyperinflated. Similar chronic prominence of the interstitial markings diffusely. Some scattered patchy areas of airspace disease are again appreciated and appear relatively similar in prominence. There is no gross pleural effusion. No pneumothorax. Surgical clips in the right upper abdomen suggesting prior cholecystectomy. XR/XR chest 2V IMPRESSION: Chronic changes of the lungs are again appreciated. Some scattered patchy areas of nonspecific airspace disease are also again appreciated and appear relatively similar in prominence.
--- NOTE | 2024-05-22 12:31 | ED_ITS ---
HPI - General Adult General Chief complaint: General Medical Stated complaint: Cellulitis both legs, fever Time Seen by Provider: 05/22/24 13:42 History of Present Illness ED Provider: Dr. Loaiza HPI narrative: 48 y/o F patient; PMH COPD, rheumatoid arthritis on chronic prednisone, SLE on hydoxychloroquine, hypothyroidism, hx CVA, PAD, hx c. diff; presents from home reporting bilateral lower extremity redness and swelling for the last few days. She states it started with her right leg and then last night seemed to begin spreading to her left leg so she became concerned. She denies: fever or chills, chest pain, SOB, nausea/vomiting, abdominal pain, syncope. She does report continues diarrhea after diagnosis with c. diff in March. Related Data Home Medications ?Medication ?Instructions ?Recorded ?Confirmed pravastatin 40 mg tablet 40 mg PO BEDTIME 08/15/20 04/24/24 albuterol sulfate 90 mcg/actuation 1 puff inhalation DAILY PRN 08/31/20 04/24/24 aerosol inhaler Shortness Of Breath Or Wheezing bupropion HCl 100 mg tablet,12 hr 100 mg PO BID 08/31/20 04/24/24 sustained-release nortriptyline 75 mg capsule 75 mg PO BEDTIME 04/18/21 04/24/24 loratadine 10 mg tablet 10 mg PO DAILY allergies 10/21/21 04/24/24 nebulizer and compressor (Vios #1 ea 02/15/22 01/15/24 Aerosol Delivery System) famotidine 20 mg tablet 1 tab PO DAILY 05/24/22 04/24/24 ikaeysjqat-majmnopetaqmt-eqejtqqm 1 - 2 tab PO DAILY PRN headache 11/08/22 04/24/24 50 mg-325 mg-40 mg tablet ferrous sulfate 325 mg (65 mg 1 tab PO DAILY 11/08/22 04/24/24 iron) tablet (FeroSul) tiotropium bromide 2.5 1 puff inhalation DAILY 11/08/22 04/24/24 mcg/actuation mist for inhalation (Spiriva Respimat) fluoxetine 20 mg capsule 2 cap PO DAILY 12/27/22 04/24/24 apixaban 5 mg tablet (Eliquis) 5 mg PO BID 01/03/23 04/24/24 folic acid 1 mg tablet 1 mg PO DAILY 01/03/23 04/24/24 levothyroxine 175 mcg tablet 175 mcg PO DAILY 01/03/23 04/24/24 multivitamin (One Daily 1 tab PO DAILY 01/03/23 04/24/24 Multivitamin tablet) tramadol 50 mg tablet 50 mg PO BEDTIME PRN Pain 10/26/23 04/24/24 lorazepam 1 mg tablet 1 mg PO DAILY PRN anxiety 04/24/24 04/24/24 Previous Rx's ?Medication ?Instructions ?Recorded prednisone 2.5 mg tablet 2.5 mg PO DAILY #30 tabs 04/06/24 vancomycin 125 mg capsule 250 mg (2 x 125 mg) PO Q6H #76 caps 04/28/24 hydroxychloroquine 200 mg tablet 300 mg (1.5 x 200 mg) PO BID #135 05/18/24 tabs Allergies Allergy/AdvReac Type Severity Reaction Status Date / Time clarithromycin Allergy Intermediate FACIAL Verified 05/22/24 12:32 [CLARITHROMYCIN] SWELLING/REDNESS, facial rash, facial rash, facial rash, facial rash Review of Systems 2 Review of Systems: Yes all other systems are reviewed and are negative Neurologic: Denies Sensory deficit (Neuro) [facility] Past Medical History Attestation statement: The following information was validated with the patient. Source: old records reviewed Medical History COPD (chronic obstructive pulmonary disease) with acute bronchitis Bilateral pneumonia Tobacco abuse C. difficile colitis Sepsis Community acquired pneumonia Bilateral pneumonia Open wound of right elbow Respiratory failure with hypoxia Pneumonia due to COVID-19 virus Acute respiratory distress syndrome (ARDS) due to COVID-19 virus Acute exacerbation of chronic obstructive airways disease Acute hypoxemic respiratory failure due to COVID-19 Ulcer of lower extremity Sepsis with acute hypoxic respiratory failure without septic shock Encounter for testing for latent tuberculosis infection Falling Charcot's joint of foot Cellulitis Redness and swelling of lower leg COPD (chronic obstructive pulmonary disease) C. difficile colitis Secondary bacterial pneumonia Immunosuppression due to chronic steroid use Mixed connective tissue disease Cellulitis of right leg PAD (peripheral artery disease) Varicose veins of right lower extremity with inflammation Rheumatoid arthritis Cellulitis CVA (cerebral vascular accident) Proteinuria Fibromyalgia Hypothyroid Lupus Surgical History Status post incision and drainage History of breast lump/mass excision History of excision of mass History of partial hysterectomy History of cholecystectomy History of bunionectomy Family History Family History Father No problems noted. Mother Lung cancer Rheumatoid arthritis Social History Social History Household Members: Children Household Members Other:: 3 Housing: House Do you presently have visiting nurse or other home services: Yes ([employer]) Alcohol intake: current Alcohol intake frequency: holidays/special occasions only Comment: pt asleep Patient Tobacco Use Status: Current everyday Tobacco user Tobacco use type: Cigarette Cigarette Packs Per Day: 0.5 Cigarettes Per Day: 20 Years Smoked: 30 Smoked in Last 30 Days: Yes Second Hand Smoke Exposure: No Substance Use Type: Marijuana Advance Directives: Yes Advance Directives on File: Yes Advance Directives Date on File: 11/26/21 Do you have a plan to hurt others: No Plan service: No Current occupational status: unemployed and disabled Current occupation: right hand dominant Physical Exam ED Vital Signs: Vital Signs - 24 hr 05/22/24 12:28 05/22/24 13:46 05/22/24 15:31 Temperature 98.6 F 97.9 F Pulse Rate 100 92 94 Respiratory Rate 18 20 16 Blood Pressure 134/75 139/85 137/87 Pulse Oximetry 93 96 93 Oxygen Delivery Method Room Air Room Air Room Air BMI result Body Mass Index 22.9 Patient is afebrile and hemodynamically stable. Const General: cooperative Orientation/consciousness: patient oriented x3 HENMT Head: Yes normal to inspection and Yes atraumatic Eyes General: appearance normal, both eyes and all related structures Pupils: Equal, round and reactive pupils present EOM: EOMs intact bilaterally Neck Neck: Yes normal visual inspection, Yes full ROM, Yes supple and No tender Chest Chest palpation & inspection: normal inspection of the chest and normal palpation of entire chest wall Resp Effort & Inspection: normal respiratory effort, able to speak in complete sentences, no cough and no respiratory distress Auscultation: clear to auscultation bilaterally Cardio Rate: regular rate Rhythm: regular rhythm Peripheral pulses: Peripheral pulses 2+ throughout GI Inspection: Yes normal to inspection, No Abdominal wall edema and No distended Palpation (GI): Soft to palpation, not firm, nontender, no guarding and not rigid Auscultation: normal bowel sounds Neuro General: patient oriented x3 Cranial nerves: Yes Equal, round and reactive pupils present Motor exam (neuro): 5/5 motor strength present throughout Sensory Exam: No Sensory deficit (Neuro) Extrem Other: RLE: Significant lower extremity swelling, tenderness to posterior aspect of calf. NVI. Warmth and erythema on background of baseline chronic venous stasis changes. LLE: Mild lower extremity swelling, no significant tenderness. Minimal warmth with chronic venous stasis changes. Course Course Course Narrative: This is an RME done by RADHA Small: Additional HPI, ROS, PE not included below will be deferred to primary provider. 48 yo female with past medical history of C difficile colitis, osteomyelitis of left foot, chronic back pain, PAD, lupus, and severe anxiety presenting with bilateral lower extremity pain and swelling, low grade fevers per patient, cough. Appearance: Alert.? Oriented X3.? No acute cardiopulmonary distress distress.? Head: Normocephalic, atraumatic, no step-offs or deformities Neck: Normal inspection.? Neck supple.? CVS: Pulses normal.? Respiratory: No respiratory distress.? Skin: ? Normal skin color. Extremities: global weakness, 3+ pitting edema to bilateral LE with overlying erythema. Back: No midline tenderness, no C-spine tenderness, full range of motion, No CVA tenderness bilaterally Neuro: Oriented X 3.? No motor deficit.? No sensory deficit. Reevaluation(s) Reevaluation #1: Patient is afebrile and hmodynamically stable. Concern for RLE cellulitis. Pending bilateral lower extremity US. Starting on Cefazolin IV with blood cultures and lactic ordered. Anticipate patient will need admission due to immunocompromised nature. US bilateral negative for DVT. Plan: Admit to hospitalist for cellulitis Condition: Stable Medications Administered Discontinued Medications Generic Name Dose Route Start Last Admin Trade Name Freq PRN Reason Stop Dose Admin Cefazolin Sodium/Dextrose 2 gm in 50 mls @ 100 mls/hr 05/22/24 14:01 05/22/24 16:03 Ancef IV 05/22/24 14:30 100 mls/hr ONCE ONE Administration Medical Decision Making Lab Data 05/22/24 12:43 05/22/24 12:43 Labs: Lab Results 05/22/24 05/22/24 Range/Units 12:43 14:57 WBC 10.8 (4.8-10.8) X10*3/uL RBC 3.59 L (4.20-5.50) X10*6/uL Hgb 9.9 L (12.0-16.0) g/dl Hct 32.6 L (37.0-47.0) % MCV 90.8 (80.0-98.0) fL MCH 27.6 (27.0-33.0) pg MCHC 30.4 L (31.0-35.0) g/dl RDW 14.0 (11.0-16.0) % Plt Count 170 (160-400) X10*3/uL MPV 8.8 L (9.4-12.3) fL Immature Gran % (Auto) 0.8 H (0.0-0.4) % Neut % (Auto) 76.1 H (45-73) % Lymph % (Auto) 9.6 L (20-40) % [place] % (Auto) 6.0 (2-11) % Eos % (Auto) 6.9 H (0-4) % Baso % (Auto) 0.6 (0-2) % Lymph # (Auto) 1.0 L (1.2-4.9) X10*3/uL [place] # (Auto) 0.7 (0.1-1.2) X10*3/uL Eos # (Auto) 0.7 H (0.0-0.4) X10*3/uL Baso # (Auto) 0.1 (0.0-0.2) X10*3/uL Abs Immat Gran (auto) 0.09 H (0.00-0.03) X10*3/uL Absolute Neuts (auto) 8.2 (2.0-8.3) x10*3/uL Absolute Nucleated RBC 0.000 (0.0-0.012) X10*3/uL Nucleated RBC % (auto) 0.0 (0.0-0.2) /100WBC PT 11.6 (11.1-13.3) SEC INR 1.0 (0.9-1.1) Sodium 140 (135-145) mmol/L Potassium 4.7 D (3.3-5.1) mmol/L Chloride 106 (96-108) mmol/L Carbon Dioxide 30 H (22-29) mmol/L Anion Gap 9 L (12-20) BUN 10 (9-16) mg/dL Creatinine 0.74 (0.5-1.4) mg/dL Estim Creat Clear Calc 71.7 Estimated GFR > 60 Random Glucose 101 (60-115) mg/dL Lactic Acid 1.4 (0.5-2.0) mmol/L Calcium 9.0 D (8.4-10.2) mg/dL Total Bilirubin 0.1 (0.0-1.0) mg/dL AST 56 H (5-31) U/L ALT 43 H (0-31) U/L Alkaline Phosphatase 133 H (39-117) U/L B-Natriuretic Peptide 32 (<100) pg/mL Total Protein 5.6 L (6.5-8.0) g/dL Albumin 3.3 L (3.5-5.0) g/dL Lipase 22 (8-78) U/L Radiology Impression Discussion of test interpretation with radiology: I have reviewed the radiologist's reading. Radiologist Impression: EXAMINATION: US VENOUS ULTRASOUND WITH DOPPLER LOWER EXTREMITY, BILATERAL CLINICAL INFORMATION: Pain and leg swelling COMPARISON: Venous duplex 12/23/2019 TECHNIQUE: Ultrasound of the deep veins is performed from the hip to the calf with compression sonography and color and pulse Doppler assessment. Spectral analysis with color-flow imaging is performed. FINDINGS: RIGHT: There is normal venous compression and respiratory variation and augmented flow. The visualized common femoral vein, superficial femoral vein, profunda femoral vein, popliteal vein, and the trifurcation region shows no evidence of deep venous thrombosis. There is no significant popliteal fossa cyst. LEFT: There is normal venous compression and respiratory variation and augmented flow. The visualized common femoral vein, superficial femoral vein, profunda femoral vein, popliteal vein, and the trifurcation region shows no evidence of deep venous thrombosis. There is no significant popliteal fossa cyst. US/US venous duplex LE IMPRESSION: No DVT demonstrated in the bilateral lower extremities. Discharge Plan Discharge Print Language: Vietnamese
[2024-05-22 12:50] LABS: MANUAL DIFF FLAG NO
[2024-05-22 12:51] LABS: Basophils Absolute Auto 0.1 X10*3/uL (0.0-0.2); Basophils Percent Auto 0.6 % (0-2); Eosinophils Absolute Auto 0.7 X10*3/uL (0.0-0.4); Eosinophils Percent Auto 6.9 % (0-4); Hematocrit 32.6 % (37.0-47.0); Hemoglobin 9.9 g/dl (12.0-16.0); Imm Gran Abs Auto 0.09 X10*3/uL (0.00-0.03); Imm Gran Pct Auto 0.8 % (0.0-0.4); Lymphocytes Percent Auto 9.6 % (20-40); Mean Corpuscular HGB Conc 30.4 g/dl (31.0-35.0); Mean Corpuscular Hemoglobin 27.6 pg (27.0-33.0); Mean Corpuscular Volume 90.8 fL (80.0-98.0); Mean Platelet Volume 8.8 fL (9.4-12.3); Monocytes Absolute Auto 0.7 X10*3/uL (0.1-1.2); Neutrophils Absolute Auto 8.2 x10*3/uL (2.0-8.3); Neutrophils Percent Auto 76.1 % (45-73); Platelet Count 170 X10*3/uL (160-400); Red Blood Count 3.59 X10*6/uL (4.20-5.50); White Blood Count 10.8 X10*3/uL (4.8-10.8)
[2024-05-22 12:55] LABS: Prothrombin Time 11.6 SEC (11.1-13.3)
[2024-05-22 13:04] LABS: Alanine Aminotransferase 43 U/L (0-31); Albumin Level 3.3 g/dL (3.5-5.0); Alkaline Phosphatase 133 U/L (39-117); Anion Gap 9 (12-20); Aspartate Amino Transferase 56 U/L (5-31); Bilirubin Total 0.1 mg/dL (0.0-1.0); Blood Urea Nitrogen 10 mg/dL (9-16); Carbon Dioxide 30 mmol/L (22-29); Chloride 106 mmol/L (96-108); Creatinine Clr Calc Pharmacy 71.7; Estimated Glomerular Filt Rate > 60; Glucose Random 101 mg/dL (60-115); Potassium 4.7 mmol/L (3.3-5.1); Sodium 140 mmol/L (135-145); Total Protein 5.6 g/dL (6.5-8.0)
[2024-05-22 13:10] LABS: B Type Natriuretic Peptide 32 pg/mL (<100)
--- NOTE | 2024-05-22 13:37 | PC.NURSE ---
Pt comes in from home for bilateral leg swelling starting a few days ago. Bilateral extremities swollen/warm, right leg/foot swollen more than left . Pt states shes had numbness/tingling in her right foot/extremities since yesterday. Pt was recently in the hospital for c-diff 2 months ago, completed her full course of antibiotics. She states shes been having loose stools starting a few weeks after she completed her c-diff antibiotic course. History of NH 10 years ago, stroke 2 years ago, +blood thinners (eliquis), cigarette smoker 1 pack a day. Pt also stating shes been having a cough with yellow sputum coming up. A/ox4, inspiratory and expiratory wheezes heard throughout along with rhonci and rub, s1 and s2 heard, pt states shes also been having headaches. Denies cp/dizziness/nausea. Labs obtained, vss, resting in bed quietly, call dickens within reach, awaiting further orders at this time.
[2024-05-22 14:19] LABS: Lipase 22 U/L (8-78)
[2024-05-22 15:22] LABS: Lactic Acid 1.4 mmol/L (0.5-2.0)
[2024-05-22] MEDS: ceFAZolin Sodium/Dextrose,Iso 2 GM/50 ML PIGGYBACK IV (16:03)
--- NOTE | 2024-05-22 16:37 | PHA.MEDREC ---
Pharmacy Consult ? Medication Reconciliation Pharmacy has completed the medication reconciliation. Confirmed medications with patient. Patient confirmed nothing has changed in her medications since her last time here. She took her Eliquis this AM.
--- NOTE | 2024-05-22 17:11 | P.HPHOSP_ITS ---
History of Present Illness Date of Service: 05/22/24 Attending physician on admission: [facility] Chief Complaint: Lower leg cellulitis Pt is a 48-year-old female with a PMH significant for?COPD, rheumatoid arthritis on chronic prednisone, SLE on hydroxychloroquine, fibromyalgia, hypothyroidism, history of CVA, peripheral arterial disease on Eliquis, history of recurrent C diff, and Charcot joint of feet who presents to the ED for evaluation of redness and swelling of bilateral lower extremities for the past few days. Pt states symptoms began a couple of days ago when she noticed that her right leg was becoming swollen and painful. Yesterday noticed left leg was also swollen, red, and painful. Patient thought symptoms would relent, however legs remained swollen today so patient came to the ED for further evaluation. Denies fever, chills. No nausea or vomiting. Denies any numbness or tingling in her feet. No chest pain/pressure, palpitations. No shortness a breath or difficulty breathing. Denies abdominal pain. Chronic loose stools, but no diarrhea like when she had C diff. In the ED pt was tachycardic to 100 otherwise vitals stable and WNL. Labs were grossly unremarkable and at baseline for patient. No leukocytosis. Stable normocytic anemia 9.9/32.6. No significant electrolyte abnormalities. Lactic acid WNL at 1.4. Renal function WNL. Mild transaminitis, though appears chronic. Venous duplex ultrasound negative for bilateral DVT in lower extremities. Pt was treated with cefazolin. Pt will be admitted to the hospital for treatment and further evaluation of right lower extremity cellulitis requiring IV antibiotics. Review of Systems 2 Review of Systems: Bilateral lower leg swelling, redness, and pain, right worse than left Chronic loose stool Denies fever, chills No nausea, vomiting, diarrhea Denies abdominal pain No chest pain/pressure, palpitations Denies shortness of breath or difficulty breathing [facility] Medical History COPD (chronic obstructive pulmonary disease) with acute bronchitis Bilateral pneumonia Tobacco abuse C. difficile colitis Sepsis Community acquired pneumonia Bilateral pneumonia Open wound of right elbow Respiratory failure with hypoxia Pneumonia due to COVID-19 virus Acute respiratory distress syndrome (ARDS) due to COVID-19 virus Acute exacerbation of chronic obstructive airways disease Acute hypoxemic respiratory failure due to COVID-19 Ulcer of lower extremity Sepsis with acute hypoxic respiratory failure without septic shock Encounter for testing for latent tuberculosis infection Falling Charcot's joint of foot Cellulitis Redness and swelling of lower leg COPD (chronic obstructive pulmonary disease) C. difficile colitis Secondary bacterial pneumonia Immunosuppression due to chronic steroid use Mixed connective tissue disease Cellulitis of right leg PAD (peripheral artery disease) Varicose veins of right lower extremity with inflammation Rheumatoid arthritis Cellulitis CVA (cerebral vascular accident) Proteinuria Fibromyalgia Hypothyroid Lupus Family History Father No problems noted. Mother Lung cancer Rheumatoid arthritis Surgical History Status post incision and drainage History of breast lump/mass excision History of excision of mass History of partial hysterectomy History of cholecystectomy History of bunionectomy Social History Household Members: Children Household Members Other:: My twin sons Housing: Apartment Do you presently have visiting nurse or other home services: Yes Alcohol intake: current Alcohol intake frequency: holidays/special occasions only Comment: pt asleep Patient Tobacco Use Status: Current everyday Tobacco user Tobacco use type: Cigarette Cigarette Packs Per Day: 1 Cigarettes Per Day: 20.0 Years Smoked: 30 Smoked in Last 30 Days: Yes Patient Interested in Nicotine Replacement: Yes Patient Given Instructions on How to Stop Smoking: Yes Date Education Initiated: 05/22/24 Second Hand Smoke Exposure: No Use of substances other than those prescribed or required for medical reasons: Yes Substance Use Type: Marijuana Substance Use Frequency: Occasionally Currently Displaying Signs/Symptoms of Drug Intoxication Withdrawal: No Any prior treatment program specific to substance use: No Have you been hit, kicked, punched, or otherwise hurt by someone within the past year? If so, by whom?: No Do you feel safe in your current relationship?: No Current Relationship Is there a partner from a previous relationship who is making you feel unsafe now?: No Are you made to feel afraid or neglected: No [employer] Healthcare Practices: Sikhism Advance Directives: Yes Advance Directives on File: Yes Advance Directives Date on File: 11/26/21 Do you have a plan to hurt others: No Plan Recently lost weight without trying: Unsure Eating poorly because of decreased appetite: No Nutrition Risks: No Nutritional Risk Patient : No : No Poor oral hygiene: No service: No Current occupational status: unemployed and disabled Current occupation: right hand dominant Meds Allergies Allergy/AdvReac Type Severity Reaction Status Date / Time clarithromycin Allergy Intermediate FACIAL Verified 05/22/24 12:32 [CLARITHROMYCIN] SWELLING/REDNESS, facial rash, facial rash, facial rash, facial rash Home Medications ?Medication ?Instructions ?Recorded ?Confirmed ?Last Taken ?Type pravastatin 40 mg tablet 40 mg PO BEDTIME 08/15/20 05/22/24 05/21/24 20:00 History albuterol sulfate 90 mcg/actuation 1 puff inhalation DAILY PRN 08/31/20 05/22/24 04/24/24 06:00 History aerosol inhaler Shortness Of Breath Or Wheezing bupropion HCl 100 mg tablet,12 hr 100 mg PO BID 08/31/20 05/22/24 05/22/24 08:00 History sustained-release nortriptyline 75 mg capsule 75 mg PO BEDTIME 04/18/21 05/22/24 05/21/24 20:00 History loratadine 10 mg tablet 10 mg PO DAILY allergies 10/21/21 05/22/24 05/22/24 08:00 History nebulizer and compressor (Vios #1 ea 02/15/22 01/15/24 Unknown History Aerosol Delivery System) famotidine 20 mg tablet 1 tab PO DAILY 05/24/22 05/22/24 05/22/24 08:00 History jivxezkloc-xircravbyqcdv-uxubfapy 1 - 2 tab PO DAILY PRN headache 11/08/22 05/22/24 05/22/24 08:00 History 50 mg-325 mg-40 mg tablet ferrous sulfate 325 mg (65 mg 1 tab PO DAILY 11/08/22 05/22/24 05/22/24 08:00 History iron) tablet (FeroSul) tiotropium bromide 2.5 1 puff inhalation DAILY 11/08/22 05/22/24 05/22/24 08:00 History mcg/actuation mist for inhalation (Spiriva Respimat) fluoxetine 20 mg capsule 2 cap PO DAILY 12/27/22 05/22/24 05/22/24 08:00 History apixaban 5 mg tablet (Eliquis) 5 mg PO BID 01/03/23 05/22/24 05/22/24 08:00 History folic acid 1 mg tablet 1 mg PO DAILY 01/03/23 05/22/24 05/22/24 08:00 History levothyroxine 175 mcg tablet 175 mcg PO DAILY@0600 01/03/23 05/22/24 05/22/24 08:00 History multivitamin (One Daily 1 tab PO DAILY 01/03/23 05/22/24 05/22/24 08:00 History Multivitamin tablet) tramadol 50 mg tablet 50 mg PO BEDTIME PRN Pain 10/26/23 05/22/24 05/21/24 20:00 History lorazepam 1 mg tablet 1 mg PO DAILY PRN anxiety 04/24/24 05/22/24 05/22/24 08:00 History Physical Exam 2 Vital Signs and Narrative: Vital Signs: Last Vital Signs Temp 97.9 F 05/22/24 13:46 Pulse 94 05/22/24 15:31 Resp 16 05/22/24 15:31 BP 137/87 05/22/24 15:31 Pulse Ox 93 05/22/24 15:31 O2 Del Method Room Air 05/22/24 15:31 BMI result Body Mass Index 22.9 General: AOx3, no acute distress Resp: Diffuse bilateral wheezing and coarse breath sounds CVS: S1, S2, RRR GI: +BS, NT, no distention Skin: Warm, dry Neuro: Cranial nerves II-XII grossly intact bilaterally. Motor grossly intact bilaterally Extremities: Bilateral non-pitting edema, right worse than left. Right leg with mild erythema and warmth superimposed over chronic venous stasis changes. As pictured below. Psych: Appropriate affect Results Labs 05/22/24 12:43 05/22/24 12:43 Labs: Laboratory Results - last 24 hr 05/22/24 05/22/24 12:43 14:57 MCV 90.8 MCH 27.6 MCHC 30.4 L RDW 14.0 Plt Count 170 MPV 8.8 L Immature Gran % (Auto) 0.8 H Neut % (Auto) 76.1 H Lymph % (Auto) 9.6 L [place] % (Auto) 6.0 Eos % (Auto) 6.9 H Baso % (Auto) 0.6 Lymph # (Auto) 1.0 L [place] # (Auto) 0.7 Eos # (Auto) 0.7 H Baso # (Auto) 0.1 Abs Immat Gran (auto) 0.09 H Absolute Neuts (auto) 8.2 Absolute Nucleated RBC 0.000 Nucleated RBC % (auto) 0.0 PT 11.6 INR 1.0 Anion Gap 9 L Estim Creat Clear Calc 71.7 Estimated GFR > 60 Random Glucose 101 Lactic Acid 1.4 Calcium 9.0 D Total Bilirubin 0.1 AST 56 H ALT 43 H Alkaline Phosphatase 133 H B-Natriuretic Peptide 32 Total Protein 5.6 L Albumin 3.3 L Lipase 22 Imaging Radiologist's Impressions: Impressions Venous Duplex 05/22/24 14:45 IMPRESSION: No DVT demonstrated in the bilateral lower extremities. Assessment and Plan (1) Cellulitis of leg, right: Status: Acute Plan Pt is a 48-year-old female with a PMH significant for?COPD, rheumatoid arthritis on chronic prednisone, SLE on hydroxychloroquine, fibromyalgia, hypothyroidism, history of CVA, peripheral arterial disease on Eliquis, history of recurrent C diff, and Charcot joint of feet who presents to the ED for evaluation of redness and swelling of bilateral lower extremities for the past few days. Pt will be admitted to the hospital for treatment and further evaluation of right lower extremity cellulitis requiring IV antibiotics. Right lower leg cellulitis Patient with worsening right lower leg swelling, erythema, warmth, pain Does not meet sepsis criteria: Tachycardia, but no tachypnea, fever, or leukocytosis; lactic acid WNL at 1.4 Will treat with doxycycline 100 mg IV b.i.d., started 05/23/2024 Follow cultures COPD Not in acute exacerbation Continue home inhalers Rheumatoid arthritis Continue prednisone Lupus Continue hydroxychloroquine Peripheral artery disease Continue Eliquis Hypothyroidism Continue levothyroxine HLD Continue statin Mood disorder Continue mood stabilizers Full Code Attending:?Dr. Zepeda DVT Prophylaxis: On Eliquis Pt will require a hospitalization of at least two nights for treatment of right lower leg cellulitis requiring IV antibiotics. Quality Stroke Does the patient have a stroke diagnosis?: No VTE Prior VTE?: No VTE Risk Level:: Medical - moderate - high VTE Device Contraindication: Treatment Not Indicated VTE Drug Contraindication: N/A - Med Ordered
[2024-05-22] MEDS: Doxycycline Hyclate 100 MG in 0.9 % Sodium Chloride 250 ML 166.67 MG IV (19:16)
[2024-05-22] MEDS: Nicotine 14 MG PATCH.TD24 TRANSDERMA (20:57)
[2024-05-22] MEDS: Pravastatin Sodium 40 MG TABLET PO (20:57)
[2024-05-22] MEDS: Hydroxychloroquine Sulfate 200 MG TABLET 300 MG PO (20:57)
[2024-05-22] MEDS: 0.9 % Sodium Chloride Flush 3 ML SYRINGE IVFLUSH (20:58)
[2024-05-22] MEDS: Melatonin 3 MG TABLET 6 MG PO (20:58)
[2024-05-22] MEDS: traMADoL HCL 50 MG TABLET PO (20:58)
[2024-05-22] MEDS: Nortriptyline HCl 25 MG CAPSULE 75 MG PO (20:58)
[2024-05-22] MEDS: Apixaban 5 MG TABLET PO (20:58)
[2024-05-23 03:02] VITALS: BP 169/88; PULSE 86; RESP 16; TEMP 36.2; O2SAT 95
[2024-05-23] MEDS: Levothyroxine Sodium 175 MCG TABLET PO (05:46)
[2024-05-23] MEDS: Doxycycline Hyclate 100 MG in 0.9 % Sodium Chloride 250 ML 166.67 MG IV (05:47)
--- NOTE | 2024-05-23 06:28 | PC.NURSE ---
Patient admitted to [facility] from ED at 20:25; Care assumed at this time. Patient admitted with RLE cellulitis. A&Ox4. +radial and dp pulses, +cms. Edema to BLE. U/S in ED negative for DVT. Given tramadol HS per order with +effect. Patient resting in bed for majority of shift. Breathing is even and unlabored without distress on RA. Pt is an active smoker; NRT patch requested and ordered by MD, placed to left shoulder. PT consult placed for assist with improving balance, gait, transfer. Please see admission assessment for full details. Bed alarm on and safety measures in place. Call dickens within reach; pt rings appropriately to make needs known.
[2024-05-23 07:20] VITALS: BP 142/81; PULSE 95; RESP 17; TEMP 37.1; O2SAT 92
[2024-05-23] MEDS: Tiotropium Bromide 2.5 mcg 1 PUFF/2.5 MCG MIST.INHAL INHALE (08:05)
[2024-05-23 08:08] VITALS: PULSE 70; RESP 18; O2SAT 96
[2024-05-23] MEDS: Multivitamin TABLET 1 TAB PO (08:14)
[2024-05-23] MEDS: Famotidine 20 MG TABLET PO (08:14)
[2024-05-23] MEDS: Apixaban 5 MG TABLET PO (08:14)
[2024-05-23] MEDS: FLUoxetine HCl 20 MG CAPSULE 40 MG PO (08:14)
[2024-05-23] MEDS: 0.9 % Sodium Chloride Flush 3 ML SYRINGE IVFLUSH (08:14)
[2024-05-23] MEDS: Folic Acid 1 MG TABLET PO (08:14)
[2024-05-23] MEDS: buPROPion HCl XL 150 MG TAB.ER.24H PO (08:14)
[2024-05-23] MEDS: Ferrous Sulfate 324 MG TABLET.DR PO (08:14)
[2024-05-23] MEDS: Loratadine 10 MG TABLET PO (08:14)
[2024-05-23] MEDS: predniSONE 2.5 MG TABLET PO (08:14)
[2024-05-23] MEDS: Hydroxychloroquine Sulfate 200 MG TABLET 300 MG PO (08:15)
[2024-05-23] MEDS: Nicotine 14 MG PATCH.TD24 TRANSDERMA (08:17)
[2024-05-23] MEDS: oxyCODONE HCl Immed Release 5 MG TABLET PO (08:22)
--- NOTE | 2024-05-23 09:43 | PM.DS ---
DS: Providers Provider Date of Service: 05/23/24 Date of admission: 05/22/24 17:39 Primary care physician: Barbie Brown MD DS: Diagnosis Discharge Diagnosis (1) Cellulitis of leg, right: Status: Acute DS: Summary Hospital Course Hospital Course: admission hpi Pt is a 48-year-old female with a PMH significant for?COPD, rheumatoid arthritis on chronic prednisone, SLE on hydroxychloroquine, fibromyalgia, hypothyroidism, history of CVA, peripheral arterial disease on Eliquis, history of recurrent C diff, and Charcot joint of feet who presents to the ED for evaluation of redness and swelling of bilateral lower extremities for the past few days. Pt states symptoms began a couple of days ago when she noticed that her right leg was becoming swollen and painful. Yesterday noticed left leg was also swollen, red, and painful. Patient thought symptoms would relent, however legs remained swollen today so patient came to the ED for further evaluation. Denies fever, chills. No nausea or vomiting. Denies any numbness or tingling in her feet. No chest pain/pressure, palpitations. No shortness a breath or difficulty breathing. Denies abdominal pain. Chronic loose stools, but no diarrhea like when she had C diff. In the ED pt was tachycardic to 100 otherwise vitals stable and WNL. Labs were grossly unremarkable and at baseline for patient. No leukocytosis. Stable normocytic anemia 9.9/32.6. No significant electrolyte abnormalities. Lactic acid WNL at 1.4. Renal function WNL. Mild transaminitis, though appears chronic. Venous duplex ultrasound negative for bilateral DVT in lower extremities. Pt was treated with cefazolin. Pt will be admitted to the hospital for treatment and further evaluation of right lower extremity cellulitis requiring IV antibiotics. Hospital course: The patient was admitted for mild cellulitis involving the right lower extremity on a background of chronic stasis dermatitis. WBC count was normal, and there was no evidence of sepsis; lactic acid levels were also normal. She was admitted overnight and given intravenous Doxycycline, which seemed to result in improvement. She will be switched to oral Doxycycline to complete a 7-day course. The patient has a right knee effusion without erythema or warmth, and she states that this condition is chronic and intermittently requires arthrocentesis, which does not appear to be indicated at this time. She says swelling has gone down and feels comfortable going home. Also as reported in triage, she is not having diarrhea, and her stools are formed per RN Time Attestation Discharge Coordination Time (in mins): 35 Quality: Safe Use of Opioids Does Pt have an Active Cancer Diagnosis on the Problem List?: No Quality: Stroke Does the patient have a stroke diagnosis?: No Physical Exam Vital Signs: Vital Signs: Last Vital Signs Temp 98.7 F 05/23/24 07:20 Pulse 70 05/23/24 08:08 Resp 18 05/23/24 08:08 BP 142/81 H 05/23/24 07:20 Pulse Ox 92 05/23/24 07:20 O2 Del Method Room Air 05/23/24 07:20 BMI result Body Mass Index 22.9 General: AO X 3, no acute distress Resp: CTA bilateral CVS: S1,S2,RRR GI: +BS, NT, no distention Skin:less swelling and no erythema at this time Neuro: motor grossly intact Psych: appropriate affect DS: Data Data Completed and Pending Labs on day of discharge: Laboratory Results - last 24 hr 05/22/24 05/22/24 12:43 14:57 WBC 10.8 RBC 3.59 L Hgb 9.9 L Hct 32.6 L MCV 90.8 MCH 27.6 MCHC 30.4 L RDW 14.0 Plt Count 170 MPV 8.8 L Immature Gran % (Auto) 0.8 H Neut % (Auto) 76.1 H Lymph % (Auto) 9.6 L [place] % (Auto) 6.0 Eos % (Auto) 6.9 H Baso % (Auto) 0.6 Lymph # (Auto) 1.0 L [place] # (Auto) 0.7 Eos # (Auto) 0.7 H Baso # (Auto) 0.1 Abs Immat Gran (auto) 0.09 H Absolute Neuts (auto) 8.2 Absolute Nucleated RBC 0.000 Nucleated RBC % (auto) 0.0 PT 11.6 INR 1.0 Sodium 140 Potassium 4.7 D Chloride 106 Carbon Dioxide 30 H Anion Gap 9 L BUN 10 Creatinine 0.74 Estim Creat Clear Calc 71.7 Estimated GFR > 60 Random Glucose 101 Lactic Acid 1.4 Calcium 9.0 D Total Bilirubin 0.1 AST 56 H ALT 43 H Alkaline Phosphatase 133 H B-Natriuretic Peptide 32 Total Protein 5.6 L Albumin 3.3 L Lipase 22 Discharge Plan Discharge Anticipated Discharge Date/Time: 05/23/24 09:44 Patient Disposition: Home, Self-Care Discharge Diagnosis: Cellulitis of leg Referrals: Barbie Dunn MD [Primary Care Provider] - 1 Week Discharge Medications: New doxycycline hyclate 100 mg tablet 100 mg PO BID 6 Days Qty: 12 0RF Continued prednisone 2.5 mg tablet 2.5 mg PO DAILY Qty: 30 1RF hydroxychloroquine 200 mg tablet 300 mg PO BID Qty: 135 1RF bupropion HCl 100 mg tablet sustained-release 12 hr 100 mg PO BID albuterol sulfate 90 mcg/actuation HFA aerosol inhaler 1 puff inhalation DAILY PRN (Reason: Shortness Of Breath Or Wheezing) loratadine 10 mg Tablet 10 mg PO DAILY fluoxetine 20 mg capsule 2 cap PO DAILY famotidine 20 mg tablet 1 tab PO DAILY esdtzuhlul-csqeyyehkjcmc-mfyp 50-325-40 mg tablet 1 - 2 tab PO DAILY PRN (Reason: headache) ferrous sulfate [FeroSul] 325 mg (65 mg iron) tablet 1 tab PO DAILY Spiriva Respimat 2.5 mcg/actuation mist 1 puff INHALATION DAILY multivitamin [One Daily Multivitamin] Tablet 1 tab PO DAILY levothyroxine 175 mcg tablet 175 mcg PO DAILY@0600 folic acid 1 mg tablet 1 mg PO DAILY Eliquis 5 mg tablet 5 mg PO BID tramadol 50 mg tablet 50 mg PO BEDTIME PRN (Reason: Pain) lorazepam 1 mg tablet 1 mg PO DAILY PRN (Reason: anxiety) nortriptyline 75 mg capsule 75 mg PO BEDTIME pravastatin 40 mg tablet 40 mg PO BEDTIME (DME) nebulizer and compressor [Vios Aerosol Delivery System] Device See Rx Instructions .ROUTE DIRECTED Qty: 1 Rx Instructions: As directed Discharge Orders: Discharge Order (Routine); Ordered 05/23/24 Ordered By: Hua Zepeda Diet: Advance to usual diet Activity on Discharge: As tolerated Stand Alone Forms: Patient Portal Discharge page Print Language: Palestinian Care Plan Goals: resolution of cellulitis of the leg Health Concerns: Cellulitis of the leg Plan of Treatment: Take Doxycline as recommended and follow up with your Doctor in a week Assessment: see above
--- NOTE | 2024-05-23 11:10 | MHC.CM.PN ---
Addendum entered by Chely Burgos 05/23/24 13:30: PT CLEARED TO DC HOME TODAY WITH RESUMPTION OF HER [employer] FAMILY TO TRANSPORT Original Note: PT REPORTS SHE LIVES WITH HER ADULT CHILDREN AND HAS DAILY [employer]FACE [employer] HAND SERVICES SHE HAS A WALKER AND A WHEEL CHAIR, SHE PRIMARILY USES THE W/C BUT CAN SELF TRANSFER WITH THE WALKER HCP ON FILE PCP: SARTHAK BISHOP DCP: HOME RESUME [employer] FAMILY TO TRANSPORT
[2024-05-23 11:19] VITALS: BP 142/81
== END 2024-05-23 15:05 | disposition home or self-care (01) | DRG 383 ==
LOC: HO.ED 16:01 → HO.EDOVER 18:08 → HO.S3 19:20
PROVIDERS: Physician Assistant; Admitting Provider Student in an Organized Health Care Education/Training Program; Emergency Provider Emergency Medicine; PCP Family Medicine; Visit Provider Internal Medicine
DX: L03.115 Cellulitis of right lower limb (principal); M32.9 Systemic lupus erythematosus, unspecified; I73.9 Peripheral vascular disease, unspecified; E03.9 Hypothyroidism, unspecified; F17.210 Nicotine dependence, cigarettes, uncomplicated; M06.9 Rheumatoid arthritis, unspecified; E78.5 Hyperlipidemia, unspecified; I87.2 Venous insufficiency (chronic) (peripheral); F39 Unspecified mood [affective] disorder; M25.461 Effusion, right knee; Z71.6 Tobacco abuse counseling; Z79.01 Long term (current) use of anticoagulants; Z79.890 Hormone replacement therapy; Z79.82 Long term (current) use of aspirin; Z79.899 Other long term (current) drug therapy
CPT/HCPCS: 36415; 71046; 80053; 83605; 83690; 83880; 85025; 85610; 87040; 93970; 94640; 97161; 99285; J0690

== ENCOUNTER → 2024-05-22 17:39 | Outpatient (BNV) | payer MEDICAID, SELFPAY | PROVIDERS: Admitting Provider Student in an Organized Health Care Education/Training Program; Emergency Provider Emergency Medicine; PCP Family Medicine; Visit Provider Student in an Organized Health Care Education/Training Program | DX: L03.115 Cellulitis of right lower limb (principal) | CPT/HCPCS: 99222; 99239 ==

== ENCOUNTER 2024-06-04 15:40 | Outpatient (AMB) | payer MEDICAID, SELFPAY ==
--- NOTE | 2024-06-04 15:43 | MHC.OFFVIS ---
Vital Signs 06/04/24 15:44 Height 5 ft 1 in BP 130/62 Blood Pressure Location Lt brachial Position Sitting Pulse 97 Pulse Source Pulse Oximeter Pulse Oximetry (%) 93 Oxygen Delivery Method Room Air Intake Visit Reasons: COPD Intake Note: pt is here for long time follow up and states her lungs are very tight, wheezing, coughing, she has O2 at home but only using it Makeup Sales Consultant Required: No Allergies clarithromycin [CLARITHROMYCIN] Allergy (Intermediate, Verified 06/04/24 16:34) FACIAL SWELLING/REDNESS, facial rash, facial rash, facial rash, facial rash Medication List - Last Reconciled 06/04/24 by Sudhir Fernandez MD albuterol sulfate 90 mcg/actuation 1 puff inhalation DAILY PRN apixaban (Eliquis) 5 mg PO BID bupropion HCl SR 100 mg PO BID dikzfizjqm-jwqkfctqovbhu-syyk 50-325-40 mg 1 - 2 tabs PO DAILY PRN famotidine 1 tab PO DAILY ferrous sulfate (FeroSul) 1 tab PO DAILY fluoxetine 2 caps PO DAILY fluticasone propionate 220 mcg/actuation 2 puffs inhalation BID folic acid 1 mg PO DAILY hydroxychloroquine 300 mg (1.5 x 200 mg) PO BID levothyroxine 175 mcg PO DAILY@0600 loratadine 10 mg PO DAILY lorazepam 1 mg PO DAILY PRN multivitamin (One Daily Multivitamin tablet) 1 tab PO DAILY nebulizer and compressor (Vios Aerosol Delivery System) As directed nortriptyline 75 mg PO BEDTIME pravastatin 40 mg PO BEDTIME prednisone 2.5 mg PO DAILY tiotropium bromide 2.5 mcg/actuation (Spiriva Respimat) 1 puff inhalation DAILY tramadol 50 mg PO BEDTIME PRN Do you need a note to return to daycare/school/sports/work: No HPI HPI COPD: Details: Marty Kc is 48 years old female. Recently hospitalized for treatment of acute C difficile colitis ,04/24/24 to 04/28 During that admission she was treated with oxygen supplements. Chest x-ray and then confirmed by CT scan, showed scattered lung opacities with some fibrotic changes. These were considered most likely infectious/inflammatory. It should be noted that she did have acute COVID infection with bilateral pneumonia in 2021. At that time she was treated with intubation and ventilatory support. And she did have some residual bilateral lung densities at that time. This patient is ongoing smoker, has smoked 1 pack a day throughout her adult life, and currently cut down to 10 cigarettes a day. She say is she has tried her best but just can not stop completely. She does have nicotine patches at home but does not want to use at. She also has advanced rheumatoid arthritis as well as the lupus syndrome, with advanced the deformities of the hands and feet. She has chronic stasis edema of the legs. And more recently treated for acute cellulitis of the leg. Her locomotion is very impaired and she is mostly in wheelchair. Current pulmonary medications are reviewed which include Flovent-220 2 puffs b.i.d. , Spiriva Respimat 2.52 inhalation daily, and albuterol 2 puffs Q 4 6 hours p.r.n.. She does have nebulizer at home but does not use it much. In spite of using these meds. She continues to feel tightness in her chest and wheezes in the upper part of her chest. [facility] Medical History COPD (chronic obstructive pulmonary disease) Lung density on x-ray Smoker COPD (chronic obstructive pulmonary disease) with acute bronchitis Bilateral pneumonia Tobacco abuse C. difficile colitis Sepsis Community acquired pneumonia Bilateral pneumonia Open wound of right elbow Respiratory failure with hypoxia Pneumonia due to COVID-19 virus Acute respiratory distress syndrome (ARDS) due to COVID-19 virus Acute exacerbation of chronic obstructive airways disease Acute hypoxemic respiratory failure due to COVID-19 Ulcer of lower extremity Sepsis with acute hypoxic respiratory failure without septic shock Encounter for testing for latent tuberculosis infection Falling Charcot's joint of foot Cellulitis Redness and swelling of lower leg C. 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 Mother Lung cancer Rheumatoid arthritis Social History Household Members: Children Household Members Other:: My twin sons Housing: Apartment Do you presently have visiting nurse or other home services: Yes Alcohol intake: current Alcohol intake frequency: holidays/special occasions only Comment: pt asleep Patient Tobacco Use Status: Current everyday Tobacco user Tobacco use type: Cigarette Cigarette Packs Per Day: 1 Cigarettes Per Day: 20.0 Years Smoked: 30 Second Hand Smoke Exposure: No Substance Use Type: Marijuana Advance Directives Date on File: 11/26/21 service: No Current occupational status: unemployed and disabled Current occupation: right hand dominant Physical Exam Vital Signs: Last Vital Signs Pulse 97 06/04/24 15:44 BP 130/62 06/04/24 15:44 Pulse Ox 93 06/04/24 15:44 Oxygen Delivery Method Room Air 06/04/24 15:44 Const Other: Chronically sick-looking, in the wheelchair. General: comfortable, no acute distress, alert and awake Orientation/consciousness: patient oriented x3 HEENT Head: Yes normal to inspection General nose exam: No nasal polyps present and No nasal discharge present Face and sinus: Yes sinuses nontender Mouth: oropharynx normal Throat: Yes posterior oropharynx normal Eyes General: appearance normal, both eyes and all related structures Neck Neck: Yes normal visual inspection, Yes no lymphadenopathy, Yes trachea midline and Yes no JVD Thyroid: Thyroid normal Chest Chest palpation & inspection: normal inspection of the chest, normal palpation of entire chest wall and no tenderness Resp Other: Percussion note resonant, breath sounds are markedly diminished with. prolonged expiratory phase There are inspiratory wheezes across the upper parts of the chest especially on the left side. Cardio Palpation: normal PMI Rate: regular rate Rhythm: regular rhythm Heart sounds: no gallops and no murmurs GI Palpation (GI): Soft to palpation, nontender, No hepatosplenomegaly present and no masses Auscultation: normal bowel sounds Back/Spine/Pelvis Thoracic/Lumbar Spine: thoracic and lumbar spine normal to inspection Skin General skin exam: no rashes or lesions noted Neuro General: patient oriented x3 and No gait normal (Due to her advanced arthritis and deformities of the feet gait impaired) Cranial nerves: Yes CN's II-XII intact bilaterally Extrem General: Yes normal to inspection, Yes no calf tenderness and Yes venous stasis dermatitis (Patient has moderate degree of stasis edema of both legs /stasis dermatitis) Psych Speech and movement: Normal speech and movement present Assessment & Plan Assessment & Plan (1) Smoker: Comment: She is a lifelong smoker, claims that it is very hard for her to quit smoking. Currently down. To 10 cigarettes a day Code(s): F17.200 - Nicotine dependence, unspecified, uncomplicated Category: Social Hx Plan: I have talked to her at length, stress that she has to stop smoking. Offered nicotine patches but she does have it already, and has not been using. Her son who came with her was also educated. (2) COPD (chronic obstructive pulmonary disease): Comment: Patient has advanced chronic obstructive pulmonary disease. She has active wheezes in spite of her current medical regimen. We need to optimize her pulmonary status.. Code(s): J44.9 - Chronic obstructive pulmonary disease, unspecified Category: Medical Plan: Will change Flovent to Advair HFA 230/21 2 puffs b.i.d. Continue Spiriva Respimat 2.5 2 puffs daily Albuterol HFA 2 puffs Q 6 hours p.r.n.. She is also on prednisone 2.5 mg for her chronic rheumatoid arthritis. (3) Lung density on x-ray: Comment: On her chest x-ray and CT scan multiple alveolar densities were noted. These could be residual from her current bilateral multilobar pneumonitis. And some of these densities are present since she had COVID infection in 2021. Code(s): J98.4 - Other disorders of lung Category: Medical Plan: A repeat CT scan after 3 months is planned Medications: New fluticasone propion-salmeterol 230-21 mcg/actuation (Advair HFA) administer with spacer 2 puffs inhalation BID 30 days 12 grams 5RF copd inhalational spacing device (Aerovent Plus spacer) As directed 10 ea 0RF Coding Level of Care Code Est Pt Level 4 (86175) Diagnoses Smoker F17.200 COPD (chronic obstructive pulmonary disease) J44.9 Lung density on x-ray J98.4
[2024-06-04 15:44] VITALS: BP 130/62; PULSE 97; O2SAT 93
== END 2024-06-04 16:10 | disposition home or self-care (01) ==
PROVIDERS: PCP Family Medicine; Visit Provider Internal Medicine
DX: F17.200 Nicotine dependence, unspecified, uncomplicated (principal); J44.9 Chronic obstructive pulmonary disease, unspecified; J98.4 Other disorders of lung
CPT/HCPCS: 99214

== ENCOUNTER → 2024-06-04 15:40 | Outpatient (BNVA) | payer MEDICAID, SELFPAY | PROVIDERS: PCP Family Medicine; Visit Provider Internal Medicine | DX: J44.9 Chronic obstructive pulmonary disease, unspecified (principal); J98.4 Other disorders of lung; F17.210 Nicotine dependence, cigarettes, uncomplicated; Z99.81 Dependence on supplemental oxygen | CPT/HCPCS: 99212 ==

== ENCOUNTER 2024-06-05 15:05 | Outpatient (AMB) | payer MEDICAID, SELFPAY ==
--- NOTE | 2024-06-05 15:15 | HO.NEPHOV ---
Vital Signs 06/05/24 15:16 Height 5 ft 1 in Weight 124 lb BMI 23.4 BP 118/64 Blood Pressure Location Rt brachial Position Sitting Pulse 96 Pulse Source Pulse Oximeter Pulse Oximetry (%) 92 Oxygen Delivery Method Room Air Intake Visit Reasons: Transf care from [facility]/ Conf Director Of Optimization Required: No Accompanied by: CHILD DEVELOPMENT INSTRUCTOR Allergies clarithromycin [CLARITHROMYCIN] Allergy (Intermediate, Verified 06/12/24 22:17) FACIAL SWELLING/REDNESS, facial rash, facial rash, facial rash, facial rash HPI Comments Details: I had the delight of seeing Emiliana in consultation for transfer of her [facility] care [facility] [place] [facility] [place] 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 She also had antiphospholipid lipid antibody. She is currently on anticoagulation. She had been on prednisone and hydroxychloroquine along with other medications in the past. She was on mycophenolate at some point but could not get mycophenolate later due to insurance issues but was on methotrexate which was discontinued due to recurrent cellulitis. She is currently on sulfasalazine in addition to prednisone and hydroxychloroquine. Her renal functions have been stable. She has not had any recent lab work or quantification of urinary protein. Her blood pressure has been at goal. She avoids nonsteroidal anti-inflammatories. She has strong family history of renal disease in her mother and grandmother. She does not have any history of renal infarction or ongoing hematuria. She is not on any diuretics or CHRIS inhibitor/ARB. She has not have any active systemic complaints at the time of this office visit. [facility] Medical History (Updated 07/06/24 @ 11:55 by Christopher Shelley MD) Stasis dermatitis Bilateral lower leg cellulitis Cellulitis COPD (chronic obstructive pulmonary disease) Lung density on x-ray Smoker COPD (chronic obstructive pulmonary disease) with acute bronchitis Bilateral pneumonia Tobacco abuse C. difficile colitis Sepsis Community acquired pneumonia Bilateral pneumonia Open wound of right elbow Respiratory failure with hypoxia Pneumonia due to COVID-19 virus Acute respiratory distress syndrome (ARDS) due to COVID-19 virus Acute exacerbation of chronic obstructive airways disease Acute hypoxemic respiratory failure due to COVID-19 Ulcer of lower extremity Sepsis with acute hypoxic respiratory failure without septic shock Encounter for testing for latent tuberculosis infection Falling Charcot's joint of foot Cellulitis Redness and swelling of lower leg C. 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 Mother Lung cancer Rheumatoid arthritis Social History Household Members: Children Household Members Other:: My twin sons Housing: House Do you presently have visiting nurse or other home services: Yes Alcohol intake: former Comment: pt asleep Patient Tobacco Use Status: Current everyday Tobacco user Tobacco use type: Cigarette Cigarette Packs Per Day: 1 Cigarettes Per Day: 20.0 Years Smoked: 30 Second Hand Smoke Exposure: No Substance Use Type: Marijuana Advance Directives Date on File: 11/26/21 service: No Current occupational status: unemployed and disabled Current occupation: right hand dominant Review of Systems Const All systems reviewed & are unremarkable except as noted in HPI and below Physical Exam Vital Signs: Last Vital Signs Pulse 96 06/05/24 15:16 BP 118/64 06/05/24 15:16 Pulse Ox 92 06/05/24 15:16 Oxygen Delivery Method Room Air 06/05/24 15:16 BMI result Body Mass Index 23.4 Const General: comfortable and no acute distress Orientation/consciousness: patient oriented x3 HEENT Head: Yes normocephalic Mouth: Normal oral and palatal mucosa present Eyes EOM: EOMs intact bilaterally Neck Neck: Yes supple Resp Auscultation: clear to auscultation bilaterally Cardio Jugular venous distension: no JVD Rate: regular rate GI Palpation (GI): Soft to palpation Auscultation: normal bowel sounds Neuro General: patient oriented x3 and moves all extremities Results Reviewed Nephrology Results: Hgb 10.7 g/dl (12.0-16.0) L 06/26/24 WBC 11.6 X10*3/uL (4.8-10.8) H 06/26/24 Plt Count 215 X10*3/uL (160-400) 06/26/24 Sodium 140 mmol/L (135-145) 06/26/24 Potassium 5.0 mmol/L (3.3-5.1) 06/26/24 Chloride 105 mmol/L (96-108) 06/26/24 Carbon Dioxide 24 mmol/L (22-29) 06/26/24 BUN 11 mg/dL (9-16) 06/26/24 Creatinine 0.79 mg/dL (0.5-1.4) 06/26/24 Calcium 9.6 mg/dL (8.4-10.2) 06/26/24 Urine Protein 30 (1+) mg/dL (Neg-Trace) H 06/26/24 Urine Creatinine 26.87 mg/dL 06/26/24 Protein/Creatinin Ratio 1.00 (<0.2) H 06/26/24 Assessment & Plan Assessment & Plan (1) Lupus: Comment: dx around 2003 (immune complex mediated Gomerulonephritis, membranous glomerulonephritis, inflammatory arthritis, +APLA syndrome, ++DSdna, low C3, low C4, +++ ACL IgM, +++ B2GP IgM) HCQ + prednisone throughout MTX DC due to recurrent cellulitis Sulfasalazine started around 2021 Code(s): M32.9 - Systemic lupus erythematosus, unspecified Category: Medical (2) Proteinuria: Code(s): R80.9 - Proteinuria, unspecified Category: Medical Qualifiers: Proteinuria type: other Qualified Code(s): R80.8 - Other proteinuria Plan 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 In 2000 she was treated with mycophenolate and high-dose steroids. Her renal functions are at baseline. She is currently on prednisone, hydroxychloroquine and sulfasalazine. She is followed up by department editor. She has no history of renal infarction. She is on anticoagulation. She is not on any CHRIS inhibitor now. I intend initiate her on low-dose CHRIS inhibitor or ARB the next office visit. She avoids nonsteroidal anti-inflammatories and maintain good hydration. I did not make any medication changes today but around explained all these in detail. Further management is pending evolving data. Follow-up appointment given. Orders: Orders Protein Creatinine Ratio, Ur 07/19/24 M32.9 - Systemic lupus erythematosus, unspecified Creatinine 06/05/24 M32.9 - Systemic lupus erythematosus, unspecified Blood Urea Nitrogen 06/05/24 M32.9 - Systemic lupus erythematosus, unspecified Electrolytes 06/05/24 M32.9 - Systemic lupus erythematosus, unspecified UA and rflx microscopic 06/05/24 M32.9 - Systemic lupus erythematosus, unspecified Coding Level of Care Code New Pt Level 4 (64647) Diagnoses Lupus M32.9 Other proteinuria R80.8 Proteinuria type: other
[2024-06-05 15:16] VITALS: BP 118/64; PULSE 96; O2SAT 92; BMI 23.4
== END 2024-06-05 15:52 | disposition home or self-care (01) ==
PROVIDERS: PCP Family Medicine; Visit Provider Internal Medicine Nephrology
DX: M32.9 Systemic lupus erythematosus, unspecified (principal); R80.8 Other proteinuria
CPT/HCPCS: 99204

== ENCOUNTER → 2024-06-05 15:05 | Outpatient (BNVA) | payer MEDICAID, SELFPAY | PROVIDERS: PCP Family Medicine; Visit Provider Internal Medicine Nephrology | DX: M32.9 Systemic lupus erythematosus, unspecified (principal); R80.8 Other proteinuria | CPT/HCPCS: 99202 ==

== ENCOUNTER 2024-06-12 21:55 | Inpatient (IN) | payer MEDICAID, SELFPAY ==
--- NOTE | ~2024-06-12 | XR_ITS ---
EXAMINATION: XR CHEST CLINICAL INFORMATION: Low oxygen, worsening cough, wheezing COMPARISON: 05/23/2024 TECHNIQUE: Frontal view of the chest was obtained. FINDINGS: Lung volumes are symmetric. Diffusely coarsened appearance of the interstitium is similar to prior. No definite acute consolidation is seen. No evidence of pneumothorax or significant pleural effusion. The cardiomediastinal contour is unremarkable. No acute osseous findings are seen. XR/XR chest 1V IMPRESSION: Diffusely coarsened appearance of the interstitium, similar to prior. No definite acute consolidation.
[2024-06-12 22:11] VITALS: BP 135/70; PULSE 109; RESP 19; TEMP 37.3; O2SAT 93; BMI 23.4
[2024-06-12 22:33] LABS: MANUAL DIFF FLAG NO
[2024-06-12 22:34] LABS: Basophils Absolute Auto 0.1 X10*3/uL (0.0-0.2); Basophils Percent Auto 0.6 % (0-2); Eosinophils Absolute Auto 1.1 X10*3/uL (0.0-0.4); Imm Gran Abs Auto 0.29 X10*3/uL (0.00-0.03); Imm Gran Pct Auto 1.7 % (0.0-0.4); Lymphocytes Percent Auto 11.5 % (20-40); Mean Corpuscular HGB Conc 31.4 g/dl (31.0-35.0); Mean Corpuscular Hemoglobin 27.3 pg (27.0-33.0); Mean Corpuscular Volume 86.8 fL (80.0-98.0); Mean Platelet Volume 8.7 fL (9.4-12.3); Monocytes Absolute Auto 1.3 X10*3/uL (0.1-1.2); Monocytes Percent Auto 7.7 % (2-11); Neutrophils Absolute Auto 12.7 x10*3/uL (2.0-8.3); Neutrophils Percent Auto 72.5 % (45-73); Platelet Count 197 X10*3/uL (160-400); Red Blood Count 4.03 X10*6/uL (4.20-5.50); Red Cell Distribution Width 13.2 % (11.0-16.0); White Blood Count 17.4 X10*3/uL (4.8-10.8)
[2024-06-12 22:47] LABS: Anion Gap 13 (12-20); Blood Urea Nitrogen 12 mg/dL (9-16); Calcium 8.7 mg/dL (8.4-10.2); Carbon Dioxide 27 mmol/L (22-29); Chloride 105 mmol/L (96-108); Creatinine Clr Calc Pharmacy 80.3; Estimated Glomerular Filt Rate > 60; Glucose Random 97 mg/dL (60-115); Potassium 4.1 mmol/L (3.3-5.1); Sodium 141 mmol/L (135-145)
--- NOTE | 2024-06-12 22:48 | ED.EXTPRO ---
HPI - Extremity Problem General Chief complaint: Extremity Problem Stated complaint: bilateral leg swelling Time Seen by Provider: 06/12/24 22:47 Source: patient Mode of arrival: ambulatory Limitations: no limitations History of Present Illness ED Provider: anamaria PADILLA Narrative: Patient's history of rheumatoid arthritis on chronic prednisone treatment lupus, hypothyroidism, recurrent cellulitis of the lower extremity was seen here on 05/22 for similar situation admitted comes here as noted similar redness and pain started yesterday spreading to the thigh now right leg more than left leg Related Data Home Medications ?Medication ?Instructions ?Recorded ?Confirmed pravastatin 40 mg tablet 40 mg PO BEDTIME 08/15/20 05/22/24 albuterol sulfate 90 mcg/actuation 1 puff inhalation DAILY PRN 08/31/20 05/22/24 aerosol inhaler Shortness Of Breath Or Wheezing bupropion HCl 100 mg tablet,12 hr 100 mg PO BID 08/31/20 05/22/24 sustained-release nortriptyline 75 mg capsule 75 mg PO BEDTIME 04/18/21 05/22/24 loratadine 10 mg tablet 10 mg PO DAILY allergies 10/21/21 05/22/24 nebulizer and compressor (Vios #1 ea 02/15/22 01/15/24 Aerosol Delivery System) famotidine 20 mg tablet 1 tab PO DAILY 05/24/22 05/22/24 hcghblkqbv-hawfkfxtjtfpe-wcyltivh 1 - 2 tab PO DAILY PRN headache 11/08/22 05/22/24 50 mg-325 mg-40 mg tablet ferrous sulfate 325 mg (65 mg 1 tab PO DAILY 11/08/22 05/22/24 iron) tablet (FeroSul) tiotropium bromide 2.5 1 puff inhalation DAILY 11/08/22 05/22/24 mcg/actuation mist for inhalation (Spiriva Respimat) fluoxetine 20 mg capsule 2 cap PO DAILY 12/27/22 05/22/24 apixaban 5 mg tablet (Eliquis) 5 mg PO BID 01/03/23 05/22/24 folic acid 1 mg tablet 1 mg PO DAILY 01/03/23 05/22/24 levothyroxine 175 mcg tablet 175 mcg PO DAILY@0600 01/03/23 05/22/24 multivitamin (One Daily 1 tab PO DAILY 01/03/23 05/22/24 Multivitamin tablet) tramadol 50 mg tablet 50 mg PO BEDTIME PRN Pain 10/26/23 05/22/24 lorazepam 1 mg tablet 1 mg PO DAILY PRN anxiety 04/24/24 05/22/24 fluticasone propionate 220 2 puff inhalation BID 06/04/24 mcg/actuation HFA aerosol inhaler oxycodone 15 mg tablet 15 mg PO BID PRN 06/05/24 Previous Rx's ?Medication ?Instructions ?Recorded hydroxychloroquine 200 mg tablet 300 mg (1.5 x 200 mg) PO BID #135 05/18/24 tabs fluticasone propionate 230 2 puff inhalation BID copd 30 days 06/04/24 mcg-salmeterol 21 mcg/actuation #12 grams HFA inhaler (Advair HFA) inhalational spacing device #10 ea 06/04/24 (Aerovent Plus spacer) prednisone 2.5 mg tablet 2.5 mg PO DAILY #30 tabs 06/09/24 Allergies Allergy/AdvReac Type Severity Reaction Status Date / Time clarithromycin Allergy Intermediate FACIAL Verified 06/12/24 22:17 [CLARITHROMYCIN] SWELLING/REDNESS, facial rash, facial rash, facial rash, facial rash Review of Systems Review of Systems: Yes all other systems are reviewed and are negative PMFSH Past Medical History Medical History COPD (chronic obstructive pulmonary disease) Lung density on x-ray Smoker COPD (chronic obstructive pulmonary disease) with acute bronchitis Bilateral pneumonia Tobacco abuse C. difficile colitis Sepsis Community acquired pneumonia Bilateral pneumonia Open wound of right elbow Respiratory failure with hypoxia Pneumonia due to COVID-19 virus Acute respiratory distress syndrome (ARDS) due to COVID-19 virus Acute exacerbation of chronic obstructive airways disease Acute hypoxemic respiratory failure due to COVID-19 Ulcer of lower extremity Sepsis with acute hypoxic respiratory failure without septic shock Encounter for testing for latent tuberculosis infection Falling Charcot's joint of foot Cellulitis Redness and swelling of lower leg C. difficile colitis Secondary bacterial pneumonia Immunosuppression due to chronic steroid use Mixed connective tissue disease Cellulitis of right leg PAD (peripheral artery disease) Varicose veins of right lower extremity with inflammation Rheumatoid arthritis Cellulitis CVA (cerebral vascular accident) Proteinuria Fibromyalgia Hypothyroid Lupus Surgical History Status post incision and drainage History of breast lump/mass excision History of excision of mass History of partial hysterectomy History of cholecystectomy History of bunionectomy Family History Family History Father No problems noted. Mother Lung cancer Rheumatoid arthritis Social History Social History Household Members: Children Household Members Other:: My twin sons Housing: Apartment Do you presently have visiting nurse or other home services: Yes Alcohol intake: former Comment: pt asleep Patient Tobacco Use Status: Current everyday Tobacco user Tobacco use type: Cigarette Cigarette Packs Per Day: 1 Cigarettes Per Day: 20.0 Years Smoked: 30 Smoked in Last 30 Days: Yes Second Hand Smoke Exposure: No Use of substances other than those prescribed or required for medical reasons: No Substance Use Type: Marijuana Advance Directives: Yes Advance Directives on File: Yes Advance Directives Date on File: 11/26/21 Do you have a plan to hurt others: No Plan Patient : No service: No Current occupational status: unemployed and disabled Current occupation: right hand dominant Physical Exam Vital Signs: Vital Signs: Last Vital Signs Temp 99.1 F 06/12/24 22:11 Pulse 110 H 06/13/24 00:50 Resp 16 06/13/24 00:50 BP 125/72 06/13/24 00:50 Pulse Ox 89 L 06/13/24 00:50 O2 Del Method Room Air 06/13/24 00:50 BMI result Body Mass Index 23.4 Appearance: Alert. Oriented X3. No acute distress. Eyes: No pallor or icterus ENT: Pharynx normal. Oral Mucosa moist Neck: Normal inspection. Neck supple. CVS: Normal heart rate and rhythm. Pulses normal. Respiratory: No respiratory distress. Equal air entry bilateral, no wheezing/rales/rhonchi Abdomen: Soft and nontender. Bowel sounds are present, no mass palpable, no CVA tenderness Skin: Skin warm and dry. Both lower extremity disease erythematous with warmth feeling Normal skin turgor. Extremities: 2+ lower extremity edema. No calf tenderness rheumatoid arthritis deformity present Neuro: Oriented X 3. Medications Administered Discontinued Medications Generic Name Dose Route Start Last Admin Trade Name Freq PRN Reason Stop Dose Admin Vancomycin HCl 1,000 mg/ 270 mls @ 270 mls/hr 06/12/24 22:55 06/13/24 00:58 Sodium Chloride IV 06/12/24 23:54 Infused ONCE ONE Infusion Medical Decision Making Medical Decision Making [facility] Narrative: Patient with bilateral leg cellulitis right more left with recurrence of similar infection in the past on prednisone long-term immunosuppressive treatment will leukocytosis will admit patient for IV vancomycin and follow Differential Diagnosis Differential Diagnoses: The differential diagnosis associated with the presentation includes Admission/Observation Consideration of admission/observation: Escalation of care including admission/observation considered Consult Healthcare Provider Management of the patient was discussed with: Hospitalist Lab Data [facility] Lab Attestation statement: I reviewed the patient's lab results. 06/12/24 22:25 06/12/24 22:25 Labs: Lab Results 06/12/24 06/12/24 Range/Units 22:25 23:12 WBC 17.4 H (4.8-10.8) X10*3/uL RBC 4.03 L (4.20-5.50) X10*6/uL Hgb 11.0 L (12.0-16.0) g/dl Hct 35.0 L (37.0-47.0) % MCV 86.8 (80.0-98.0) fL MCH 27.3 (27.0-33.0) pg MCHC 31.4 (31.0-35.0) g/dl RDW 13.2 (11.0-16.0) % Plt Count 197 (160-400) X10*3/uL MPV 8.7 L (9.4-12.3) fL Immature Gran % (Auto) 1.7 H (0.0-0.4) % Neut % (Auto) 72.5 (45-73) % Lymph % (Auto) 11.5 L (20-40) % Beaver % (Auto) 7.7 (2-11) % Eos % (Auto) 6.0 H (0-4) % Baso % (Auto) 0.6 (0-2) % Lymph # (Auto) 2.0 (1.2-4.9) X10*3/uL [place]aver # (Auto) 1.3 H (0.1-1.2) X10*3/uL Eos # (Auto) 1.1 H (0.0-0.4) X10*3/uL Baso # (Auto) 0.1 (0.0-0.2) X10*3/uL Abs Immat Gran (auto) 0.29 H (0.00-0.03) X10*3/uL Absolute Neuts (auto) 12.7 H (2.0-8.3) x10*3/uL Absolute Nucleated RBC 0.000 (0.0-0.012) X10*3/uL Nucleated RBC % (auto) 0.0 (0.0-0.2) /100WBC Sodium 141 (135-145) mmol/L Potassium 4.1 (3.3-5.1) mmol/L Chloride 105 (96-108) mmol/L Carbon Dioxide 27 (22-29) mmol/L Anion Gap 13 (12-20) BUN 12 (9-16) mg/dL Creatinine 0.66 (0.5-1.4) mg/dL Estim Creat Clear Calc 80.3 Estimated GFR > 60 Random Glucose 97 (60-115) mg/dL Lactic Acid 0.8 (0.5-2.0) mmol/L Calcium 8.7 (8.4-10.2) mg/dL B-Natriuretic Peptide 17 (<100) pg/mL Influenza Type A (PCR) NEGATIVE (Negative) Influenza Type B (PCR) NEGATIVE (Negative) RSV RNA Qual (PCR) NEGATIVE (Negative) SARS-CoV-2 RNA (RT-PCR) NEGATIVE (Negative) Discharge Plan Discharge Clinical Impression: Cellulitis Patient Disposition: Admitted As Inpatient Print Language: Niuean
[2024-06-12 22:53] LABS: B Type Natriuretic Peptide 17 pg/mL (<100)
[2024-06-12 23:10] LABS: Influenza A PCR NEGATIVE (Negative); Influenza B PCR NEGATIVE (Negative); Resp Syncy Virus RNA Qual PCR NEGATIVE (Negative); SARS COV2 PCR INHOUSE NEGATIVE (Negative)
[2024-06-12 23:30] LABS: Lactic Acid 0.8 mmol/L (0.5-2.0)
[2024-06-12] MEDS: vancomycin HCL 1,000 MG in 0.9 % Sodium Chloride 250 ML 270 MG IV (23:49)
[2024-06-13] VITALS (13 sets, daily range): BP systolic 125–143; BP diastolic 66–87; PULSE 75–110; RESP 16–20; TEMP 36.1–37; O2SAT 89–967; BMI 24.9
--- NOTE | 2024-06-13 00:59 | PC.NURSE ---
Patient's O2 Sat 86-87% on RA when asleep. Dr. Ribeiro aware, per MD place patient on supplemental O2 at 1 LPM NC to maintain O2 Sat >89%.
--- NOTE | 2024-06-13 01:01 | PC.NURSE ---
Patient has been maintaining O2 Sat 90-93% on 1 LPM.
--- NOTE | 2024-06-13 01:13 | P.HPHOSP_ITS ---
History of Present Illness Date of Service: 06/13/24 Attending physician on admission: Darren Darden Chief Complaint: Lower extremity swelling and pain Emiliana Rea is a 48 years old woman with past medical history significant for COPD -not home oxygen, RA on low dose prednisone, SLE on hydrochloroquine, hypothyroidism, CVA + PAD on Eliquis, fibromyalgia and chronic pain on oxycodone presents to the emergency department complaining of lower extremity swelling pain and redness that started over the last few days. She denied associated fever or chills. She also reports worsening productive cough, wheezing or shortness on breath. She has ongoing tobacco smoker, smokes 1 pack per day. She also denied any headache, palpitations, chest pain, abdominal pain, nausea, vomiting or diarrhea. At the beginning of current month, she was admitted to the hospital with right lower extremity cellulitis. Denied alcohol abuse or illicit drug use. In the ED, she was found to have tachypnea, tachycardia low oxygen saturation (87%). There is no fever. Blood workup was remarkable for leukocytosis of 17.4, hemoglobin of 11.0 and platelets 197. There is no lactic acidosis or electrolyte imbalances. BNP is normal. Renal function is normal. ED tx: Vancomycin 1 g IV. Review of Systems 2 Review of Systems: All 12 systems were reviewed and normal except as noted in HPI. [facility] Medical History COPD (chronic obstructive pulmonary disease) Lung density on x-ray Smoker COPD (chronic obstructive pulmonary disease) with acute bronchitis Bilateral pneumonia Tobacco abuse C. difficile colitis Sepsis Community acquired pneumonia Bilateral pneumonia Open wound of right elbow Respiratory failure with hypoxia Pneumonia due to COVID-19 virus Acute respiratory distress syndrome (ARDS) due to COVID-19 virus Acute exacerbation of chronic obstructive airways disease Acute hypoxemic respiratory failure due to COVID-19 Ulcer of lower extremity Sepsis with acute hypoxic respiratory failure without septic shock Encounter for testing for latent tuberculosis infection Falling Charcot's joint of foot Cellulitis Redness and swelling of lower leg C. difficile colitis Secondary bacterial pneumonia Immunosuppression due to chronic steroid use Mixed connective tissue disease Cellulitis of right leg PAD (peripheral artery disease) Varicose veins of right lower extremity with inflammation Rheumatoid arthritis Cellulitis CVA (cerebral vascular accident) Proteinuria Fibromyalgia Hypothyroid Lupus Family History Father No problems noted. Mother Lung cancer Rheumatoid arthritis Surgical History Status post incision and drainage History of breast lump/mass excision History of excision of mass History of partial hysterectomy History of cholecystectomy History of bunionectomy Social History Household Members: Children Household Members Other:: My twin sons Housing: Apartment Do you presently have visiting nurse or other home services: Yes Alcohol intake: former Comment: pt asleep Patient Tobacco Use Status: Current everyday Tobacco user Tobacco use type: Cigarette Cigarette Packs Per Day: 1 Cigarettes Per Day: 20.0 Years Smoked: 30 Smoked in Last 30 Days: Yes Second Hand Smoke Exposure: No Use of substances other than those prescribed or required for medical reasons: No Substance Use Type: Marijuana Advance Directives: Yes Advance Directives on File: Yes Advance Directives Date on File: 11/26/21 Do you have a plan to hurt others: No Plan Nutrition Risks: No Nutritional Risk Patient : No service: No Current occupational status: unemployed and disabled Current occupation: right hand dominant Meds Allergies Allergy/AdvReac Type Severity Reaction Status Date / Time clarithromycin Allergy Intermediate FACIAL Verified 06/12/24 22:17 [CLARITHROMYCIN] SWELLING/REDNESS, facial rash, facial rash, facial rash, facial rash Active Medications: Current Medications Acetaminophen (Acetaminophen 325 Mg Tablet) 975 mg PO Q6H PRN PRN Reason: Pain, Mild (Pain Scale 1-3), fever or headache Albuterol/Ipratropium (Albuterol/Iprat 2.5/0.5mg 3 Ml Ampul.Neb) 3 ml INHALE RQ4H WHILE AWAKE [place] Ceftriaxone Sodium 1 gm/ (Sodium Chloride) 100 mls @ 200 mls/hr IV Q24H [place] Methylprednisolone Sodium Succinate (Methylprednisolone Sod Succ 40 Mg/Ml Vial) 40 mg IVPUSH Q12H [place] Nicotine Polacrilex (Nicotine Polacrilex 2 Mg Gum) 2 mg BUCCAL Q2H PRN PRN Reason: Nicotine Cravings Sodium Chloride (0.9 % Sodium Chloride Flush 3 Ml Syringe) 3 ml IVFLUSH QSHIFT [place] Home Medications ?Medication ?Instructions ?Recorded ?Confirmed ?Last Taken ?Type pravastatin 40 mg tablet 40 mg PO BEDTIME 08/15/20 06/13/24 05/21/24 20:00 History albuterol sulfate 90 mcg/actuation 1 puff inhalation DAILY PRN 08/31/20 05/22/24 04/24/24 06:00 History aerosol inhaler Shortness Of Breath Or Wheezing bupropion HCl 100 mg tablet,12 hr 100 mg PO BID 08/31/20 06/13/24 05/22/24 08:00 History sustained-release nortriptyline 75 mg capsule 75 mg PO BEDTIME 04/18/21 06/13/24 05/21/24 20:00 History loratadine 10 mg tablet 10 mg PO DAILY allergies 10/21/21 06/13/24 05/22/24 08:00 History nebulizer and compressor (Vios #1 ea 02/15/22 01/15/24 Unknown History Aerosol Delivery System) famotidine 20 mg tablet 1 tab PO DAILY 05/24/22 06/13/24 05/22/24 08:00 History qzkimcecuv-fslemkisfbzlf-ioxikszi 1 - 2 tab PO DAILY PRN headache 11/08/22 06/13/24 05/22/24 08:00 History 50 mg-325 mg-40 mg tablet ferrous sulfate 325 mg (65 mg 1 tab PO DAILY 11/08/22 06/13/24 05/22/24 08:00 History iron) tablet (FeroSul) tiotropium bromide 2.5 1 puff inhalation DAILY 11/08/22 06/13/24 05/22/24 08:00 History mcg/actuation mist for inhalation (Spiriva Respimat) fluoxetine 20 mg capsule 2 cap PO DAILY 12/27/22 06/13/24 05/22/24 08:00 History apixaban 5 mg tablet (Eliquis) 5 mg PO BID 01/03/23 06/13/24 05/22/24 08:00 History folic acid 1 mg tablet 1 mg PO DAILY 01/03/23 06/13/24 05/22/24 08:00 History levothyroxine 175 mcg tablet 175 mcg PO DAILY@0600 01/03/23 06/13/24 05/22/24 08:00 History multivitamin (One Daily 1 tab PO DAILY 01/03/23 06/13/24 05/22/24 08:00 History Multivitamin tablet) tramadol 50 mg tablet 50 mg PO BEDTIME PRN Pain 10/26/23 05/22/24 05/21/24 20:00 History lorazepam 1 mg tablet 1 mg PO DAILY PRN anxiety 04/24/24 06/13/24 05/22/24 08:00 History fluticasone propionate 220 2 puff inhalation BID 06/04/24 06/13/24 Unknown History mcg/actuation HFA aerosol inhaler oxycodone 15 mg tablet 15 mg PO BID PRN Pain 06/05/24 06/13/24 Unknown History Physical Exam 2 Vital Signs and Narrative: Vital Signs: Last Vital Signs Temp 99.1 F 06/12/24 22:11 Pulse 110 H 06/13/24 00:50 Resp 16 06/13/24 00:50 BP 125/72 06/13/24 00:50 Pulse Ox 89 L 06/13/24 00:50 O2 Del Method Room Air 06/13/24 00:50 BMI result Body Mass Index 23.4 Constitutional - Awake and Alert, No apparent distress. Chronically ill appearance. Looks older than her stated age. Constantly coughing. Afebrile. HEENT - PERRL, EOMI. Dry oral mucosa. Heart - Tachycardia. No murmurs. Lungs - Normal lung expansion, Normal respiratory effort. Tachypnea. Bilateral prominent rhonchi, end-expiratory wheezes. Abdomen - NT / ND; +BS; No rebound or guarding Extremities - Marked pitting edema to the lower extremities associated with erythema and tenderness to palpation. Skin - Warm/Dry Neurological - Alert & oriented x3. No focal weakness grossly noted. Normal speech. Psychological - Appropriate affect Results Labs 06/12/24 22:25 06/12/24 22:25 Labs: Laboratory Results - last 24 hr 06/12/24 06/12/24 22:25 23:12 MCV 86.8 MCH 27.3 MCHC 31.4 RDW 13.2 Plt Count 197 MPV 8.7 L Immature Gran % (Auto) 1.7 H Neut % (Auto) 72.5 Lymph % (Auto) 11.5 L Alfalfa % (Auto) 7.7 Eos % (Auto) 6.0 H Baso % (Auto) 0.6 Lymph # (Auto) 2.0 Alfalfa # (Auto) 1.3 H Eos # (Auto) 1.1 H Baso # (Auto) 0.1 Abs Immat Gran (auto) 0.29 H Absolute Neuts (auto) 12.7 H Absolute Nucleated RBC 0.000 Nucleated RBC % (auto) 0.0 Anion Gap 13 Estim Creat Clear Calc 80.3 Estimated GFR > 60 Random Glucose 97 Lactic Acid 0.8 Calcium 8.7 B-Natriuretic Peptide 17 Influenza Type A (PCR) NEGATIVE Influenza Type B (PCR) NEGATIVE RSV RNA Qual (PCR) NEGATIVE SARS-CoV-2 RNA (RT-PCR) NEGATIVE Assessment and Plan (1) Bilateral lower leg cellulitis: Status: Acute (2) Stasis dermatitis: Status: Acute (3) Acute hypoxic respiratory failure: Status: Acute Plan Emiliana Rea is a 48 y/o woman with PMHx significant for lung nodules admitted with: * Hypoxic respiratory failure likely secondary to acute exacerbation of chronic obstructive pulmonary disease. Admit to hospitalist service. Telemetry. Pulse oximetry. Supplemental O2 to keep O2 sats > 90%. Start therapy with bronchodilator therapy and IV steroids. Check x-rays stat. * Bilateral lower extremity cellulitis, possible component of stasis dermatitis in the setting of underlying PDA. Continue empiric IV antibiotic therapy with vancomycin. Add ceftriaxone. Blood culture obtained -we will follow results. Elevate extremities. * SIRS criteria: Tachycardia, tachypnea and leukocytosis. No sepsis. Continue to monitor. * SLE. Continue hydrochloroquine. * RA. Prednisone hold as she will be receiving Solu-Medrol IV. * Hypothyroidism. Continue levothyroxine. * History of CVA + PID. Continue Eliquis and statin. * Fibromyalgia. Continue nortriptyline, bupropion and fluoxetine. * Nicotine dependence. Tobacco cessation education. Nicotine gum as needed for nicotine cravings. * History of C.diff infection. No GI symptoms reported. DVT prophylaxis: Eliquis Code status: Full Patient will need hospitalization for at least 2 midnights for hypoxic respiratory failure treatment with supplemental oxygen, IV steroids and bronchodilator therapy. She will also need IV antibiotic therapy for cellulitis due to underlying immunocompromised state + multiple comorbidities. Quality Stroke Does the patient have a stroke diagnosis?: No VTE Prior VTE?: No VTE Risk Level:: Medical - moderate - high VTE Device Contraindication: Treatment Not Indicated VTE Drug Contraindication: N/A - Med Ordered
[2024-06-13] MEDS: methylPREDNISolone Sod Succ 125 MG/2 ML VIAL 80 MG IVPUSH (01:55)
[2024-06-13] MEDS: cefTRIAXone sodium 1 GM in 0.9 % Sodium Chloride 100 ML IV (01:55)
[2024-06-13] MEDS: Nicotine 21 MG PATCH.TD24 TRANSDERMA (06:18)
[2024-06-13] MEDS: Levothyroxine Sodium 175 MCG TABLET PO (06:18)
[2024-06-13 07:07] LABS: MANUAL DIFF FLAG NO
[2024-06-13 07:11] LABS: Basophils Absolute Auto 0.1 X10*3/uL (0.0-0.2); Basophils Percent Auto 1.1 % (0-2); Eosinophils Absolute Auto 0.3 X10*3/uL (0.0-0.4); Eosinophils Percent Auto 2.7 % (0-4); Hematocrit 38.1 % (37.0-47.0); Hemoglobin 11.6 g/dl (12.0-16.0); Imm Gran Abs Auto 0.33 X10*3/uL (0.00-0.03); Imm Gran Pct Auto 2.7 % (0.0-0.4); Lymphocytes Absolute Auto 0.8 X10*3/uL (1.2-4.9); Lymphocytes Percent Auto 6.6 % (20-40); Mean Corpuscular HGB Conc 30.4 g/dl (31.0-35.0); Mean Corpuscular Hemoglobin 26.5 pg (27.0-33.0); Mean Corpuscular Volume 87.2 fL (80.0-98.0); Mean Platelet Volume 8.7 fL (9.4-12.3); Monocytes Absolute Auto 0.2 X10*3/uL (0.1-1.2); Monocytes Percent Auto 1.9 % (2-11); Neutrophils Absolute Auto 10.5 x10*3/uL (2.0-8.3); Platelet Count 191 X10*3/uL (160-400); Red Blood Count 4.37 X10*6/uL (4.20-5.50); Red Cell Distribution Width 13.1 % (11.0-16.0); White Blood Count 12.3 X10*3/uL (4.8-10.8)
[2024-06-13] MEDS: Albuterol/Iprat 2.5/0.5MG 3 ML AMPUL.NEB INHALE ×4 (07:25→19:22)
[2024-06-13 07:42] LABS: Alanine Aminotransferase 21 U/L (0-31); Albumin Level 3.4 g/dL (3.5-5.0); Alkaline Phosphatase 176 U/L (39-117); Anion Gap 11 (12-20); Aspartate Amino Transferase 23 U/L (5-31); Bilirubin Total 0.1 mg/dL (0.0-1.0); Blood Urea Nitrogen 11 mg/dL (9-16); Calcium 9.7 mg/dL (8.4-10.2); Carbon Dioxide 29 mmol/L (22-29); Chloride 105 mmol/L (96-108); Creatinine Clr Calc Pharmacy 84.6; Estimated Glomerular Filt Rate > 60; Glucose Random 124 mg/dL (60-115); Magnesium 1.8 mg/dL (1.6-2.6); Potassium 4.9 mmol/L (3.3-5.1); Sodium 140 mmol/L (135-145); Total Protein 6.1 g/dL (6.5-8.0)
[2024-06-13] MEDS: Ferrous Sulfate 324 MG TABLET.DR PO (09:03)
[2024-06-13] MEDS: FLUoxetine HCl 20 MG CAPSULE 40 MG PO (09:04)
[2024-06-13] MEDS: Apixaban 5 MG TABLET PO ×2 (09:04→20:38)
[2024-06-13] MEDS: Famotidine 20 MG TABLET PO (09:04)
[2024-06-13] MEDS: Multivitamin TABLET 1 TAB PO (09:04)
[2024-06-13] MEDS: Folic Acid 1 MG TABLET PO (09:04)
[2024-06-13] MEDS: Loratadine 10 MG TABLET PO (09:04)
[2024-06-13] MEDS: Hydroxychloroquine Sulfate 200 MG TABLET 300 MG PO ×2 (09:04→20:38)
[2024-06-13] MEDS: buPROPion HCl XL 150 MG TAB.ER.24H PO (09:04)
[2024-06-13] MEDS: 0.9 % Sodium Chloride Flush 3 ML SYRINGE IVFLUSH ×3 (09:08→20:39)
--- NOTE | 2024-06-13 09:47 | PHA.MEDREC ---
Addendum entered by Brandon Todd 06/13/24 10:17: Spoke to patient regarding sulfasalazine prescription. Per patient, the patient was taking sulfasalazine 500 mg twice daily 6 months ago. At that time, the patient states that Dr. Mora increased her dose of sulfasalazine to 1000 mg in the morning and 500 mg at bedtime. According to her, it was an attempt to help with her severe arthritis and see if it improved her outcomes. Original Note: Pharmacy Consult ? Medication Reconciliation Pharmacy has completed the medication reconciliation.
--- NOTE | 2024-06-13 12:19 | HO.PM.IMPN ---
Subjective Subjective Date of Service: 06/13/24 Interval History: copd execerbation Review of Systems sob seems similar leg area seems stasis demaitis Physical Exam Vital Signs: Vital Signs: Last Vital Signs Temp 98.6 F 06/13/24 11:50 Pulse 99 06/13/24 11:50 Resp 18 06/13/24 11:50 BP 138/74 06/13/24 11:50 Pulse Ox 99 06/13/24 11:50 O2 Del Method Nasal Cannula 06/13/24 11:50 O2 Flow Rate 1 06/13/24 11:50 BMI result Body Mass Index 24.9 Appearance: Alert.? Oriented X3.? cvs: [id number], [id number] , no murmur res: air entry dimished ,has b/l wheezing abd: no rebound or guarding ,nt, bs present. ext pulses present , no cyanosis . neuro: axo3 , nonfocal. Objective Data Active Medications Acetaminophen (Acetaminophen 325 Mg Tablet) 975 mg PO Q6H PRN PRN Reason: Pain, Mild (Pain Scale 1-3), fever or headache Acetaminophen/Butalbital/Caffeine (Butalb/Acetamin/Caff 50/325/40 Tablet) 1 tab PO DAILY PRN PRN Reason: headache Albuterol Sulfate (Albuterol Sulfate 90 Mcg 8 Gm Inhaler) 2 puff INHALE Q6H PRN PRN Reason: Shortness Of Breath Or Wheezing Albuterol/Ipratropium (Albuterol/Iprat 2.5/0.5mg 3 Ml Ampul.Neb) 3 ml INHALE RQ4H WHILE AWAKE [facility] Last Admin: 06/13/24 11:06 Dose: 3 ml Documented By: SAMIR Apixaban (Apixaban 5 Mg Tablet) 5 mg PO BID [facility] Last Admin: 06/13/24 09:04 Dose: 5 mg Documented By: ROGE Bupropion HCl (Bupropion Hcl Xl 150 Mg Tab.Er.24h) 150 mg PO DAILY [facility] Last Admin: 06/13/24 09:04 Dose: 150 mg Documented By: ROGE Famotidine (Famotidine 20 Mg Tablet) 20 mg PO DAILY [facility] Last Admin: 06/13/24 09:04 Dose: 20 mg Documented By: ROGE Ferrous Sulfate (Ferrous Sulfate 324 Mg Tablet.Dr) 324 mg PO DAILY [facility] Last Admin: 06/13/24 09:03 Dose: 324 mg Documented By: ROGE Fluoxetine HCl (Fluoxetine Hcl 20 Mg Capsule) 40 mg PO DAILY [facility] Last Admin: 06/13/24 09:04 Dose: 40 mg Documented By: ROGE Folic Acid (Folic Acid 1 Mg Tablet) 1 mg PO DAILY [facility] Last Admin: 06/13/24 09:04 Dose: 1 mg Documented By: ROGE Hydroxychloroquine Sulfate (Hydroxychloroquine Sulfate 200 Mg Tablet) 300 mg PO BID [facility] Last Admin: 06/13/24 09:04 Dose: 300 mg Documented By: ROGE Ceftriaxone Sodium 1 gm/ (Sodium Chloride) 100 mls @ 200 mls/hr IV Q24H [facility] Last Infusion: 06/13/24 02:25 Dose: Infused Documented By: SUPRIYA Levothyroxine Sodium (Levothyroxine Sodium 175 Mcg Tablet) 175 mcg PO DAILY@0600 [facility] Last Admin: 06/13/24 06:18 Dose: 175 mcg Documented By: AMADO Loratadine (Loratadine 10 Mg Tablet) 10 mg PO DAILY [facility] Last Admin: 06/13/24 09:04 Dose: 10 mg Documented By: ROGE Lorazepam (Lorazepam 1 Mg Tablet) 1 mg PO DAILY PRN PRN Reason: anxiety Methylprednisolone Sodium Succinate (Methylprednisolone Sod Succ 40 Mg/Ml Vial) 40 mg IVPUSH Q12H [facility] Multivitamins/Vitamin C (Multivitamin Tablet) 1 tab PO DAILY [facility] Last Admin: 06/13/24 09:04 Dose: 1 tab Documented By: ROGE Nicotine (Nicotine 21 Mg Patch.Td24) 21 mg TRANSDERMA DAILY [facility] Last Admin: 06/13/24 06:18 Dose: 21 mg Documented By: AMADO Nortriptyline HCl (Nortriptyline Hcl 25 Mg Capsule) 75 mg PO BEDTIME [facility] Pravastatin Sodium (Pravastatin Sodium 40 Mg Tablet) 40 mg PO BEDTIME [facility] Sodium Chloride (0.9 % Sodium Chloride Flush 3 Ml Syringe) 3 ml IVFLUSH QSHIFT [facility] Last Admin: 06/13/24 09:08 Dose: 3 ml Documented By: ROGE Sulfasalazine (Sulfasalazine 500 Mg Tablet) 1,000 mg PO DAILY [facility] Sulfasalazine (Sulfasalazine 500 Mg Tablet) 500 mg PO BEDTIME [facility] Labs 06/13/24 06:56 06/13/24 06:56 Labs: Laboratory Results - last 24 hr 06/12/24 06/12/24 06/13/24 22:25 23:12 06:56 MCV 86.8 87.2 MCH 27.3 26.5 L MCHC 31.4 30.4 L RDW 13.2 13.1 Plt Count 197 191 MPV 8.7 L 8.7 L Immature Gran % (Auto) 1.7 H 2.7 H Neut % (Auto) 72.5 85.0 H Lymph % (Auto) 11.5 L 6.6 L Cobb % (Auto) 7.7 1.9 L Eos % (Auto) 6.0 H 2.7 Baso % (Auto) 0.6 1.1 Lymph # (Auto) 2.0 0.8 L Cobb # (Auto) 1.3 H 0.2 Eos # (Auto) 1.1 H 0.3 Baso # (Auto) 0.1 0.1 Abs Immat Gran (auto) 0.29 H 0.33 H Absolute Neuts (auto) 12.7 H 10.5 H Absolute Nucleated RBC 0.000 0.000 Nucleated RBC % (auto) 0.0 0.0 Anion Gap 13 11 L Estim Creat Clear Calc 80.3 84.6 Estimated GFR > 60 > 60 Random Glucose 97 124 H Lactic Acid 0.8 Calcium 8.7 9.7 D Magnesium 1.8 Total Bilirubin 0.1 AST 23 ALT 21 Alkaline Phosphatase 176 H B-Natriuretic Peptide 17 Total Protein 6.1 L Albumin 3.4 L Influenza Type A (PCR) NEGATIVE Influenza Type B (PCR) NEGATIVE RSV RNA Qual (PCR) NEGATIVE SARS-CoV-2 RNA (RT-PCR) NEGATIVE Assessment and Plan (1) Acute hypoxic respiratory failure: Status: Acute (2) Stasis dermatitis: Status: Acute Plan 48 y/o woman with PMHx significant for lung nodules admitted with: acute Hypoxic respiratory failure likely secondary to acute exacerbation of chronic obstructive pulmonary disease. cxr:Diffusely coarsened appearance of the interstitium, similar to prior.No definite acute consolidation. sob similar ,sats still fluctuating from 87-90's range blood cultures pending Pulse oximetry. Supplemental O2 to keep O2 sats > 90%. Start therapy with bronchodilator therapy and IV steroids,antibiotics . stasis dermatitis : leg elevation oob SIRS criteria: Tachycardia improving, leukocytosis.tachypnea resolved, No sepsis. Continue to monitor. SLE. Continue hydrochloroquine. RA. Prednisone hold as she will be receiving Solu-Medrol IV. Hypothyroidism. Continue levothyroxine. History of CVA + PID. Continue Eliquis and statin. Fibromyalgia. Continue nortriptyline, bupropion and fluoxetine. Nicotine dependence. Tobacco cessation education. Nicotine gum as needed for nicotine cravings. Ongoing hospitlisation need : acute Hypoxic respiratory failure likely secondary to acute exacerbation of chronic obstructive pulmonary disease-oxygen need,nebs,steriods , blood cultures also pending. Quality Stroke Does the patient have a stroke diagnosis?: No VTE Prior VTE?: No VTE Risk Level:: Medical - moderate - high VTE Device Contraindication: Treatment Not Indicated VTE Drug Contraindication: N/A - Med Ordered
[2024-06-13] MEDS: sulfaSALAzine 500 MG TABLET 1000 MG PO (12:31)
[2024-06-13] MEDS: guaiFENesin 200 MG/10 ML 10 ML LIQUID PO ×2 (13:20→20:37)
[2024-06-13 13:59] LABS: Procalcitonin 0.07 ng/mL
--- NOTE | 2024-06-13 16:23 | MHC.CM.PN ---
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
[2024-06-13] MEDS: methylPREDNISolone Sod Succ 40 MG/ML VIAL IVPUSH (16:37)
[2024-06-13] MEDS: Pravastatin Sodium 40 MG TABLET PO (20:37)
[2024-06-13] MEDS: Nortriptyline HCl 25 MG CAPSULE 75 MG PO (20:38)
[2024-06-13] MEDS: sulfaSALAzine 500 MG TABLET PO (20:39)
[2024-06-13] MEDS: traMADoL HCL 50 MG TABLET PO (21:14)
[2024-06-14] VITALS (11 sets, daily range): BP systolic 115–150; BP diastolic 62–81; PULSE 89–104; RESP 16–20; TEMP 36.1–37.6; O2SAT 91–100
[2024-06-14] MEDS: cefTRIAXone sodium 1 GM in 0.9 % Sodium Chloride 100 ML IV (01:32)
[2024-06-14] MEDS: guaiFENesin 200 MG/10 ML 10 ML LIQUID PO ×4 (01:33→21:02)
[2024-06-14] MEDS: vancomycin HCL 1,500 MG in 0.9 % Sodium Chloride 500 ML 333.33 MG IV (04:27)
[2024-06-14] MEDS: Levothyroxine Sodium 175 MCG TABLET PO (05:03)
[2024-06-14] MEDS: methylPREDNISolone Sod Succ 40 MG/ML VIAL IVPUSH ×2 (05:03→16:44)
[2024-06-14] MEDS: Albuterol/Iprat 2.5/0.5MG 3 ML AMPUL.NEB INHALE ×4 (07:25→19:28)
[2024-06-14] MEDS: Nicotine 21 MG PATCH.TD24 TRANSDERMA (08:54)
[2024-06-14] MEDS: Hydroxychloroquine Sulfate 200 MG TABLET 300 MG PO ×2 (08:55→21:01)
[2024-06-14] MEDS: Multivitamin TABLET 1 TAB PO (08:55)
[2024-06-14] MEDS: sulfaSALAzine 500 MG TABLET 1000 MG PO (08:55)
[2024-06-14] MEDS: Famotidine 20 MG TABLET PO (08:55)
[2024-06-14] MEDS: Loratadine 10 MG TABLET PO (08:55)
[2024-06-14] MEDS: Folic Acid 1 MG TABLET PO (08:55)
[2024-06-14] MEDS: Ferrous Sulfate 324 MG TABLET.DR PO (08:56)
[2024-06-14] MEDS: Apixaban 5 MG TABLET PO ×2 (08:56→21:02)
[2024-06-14] MEDS: FLUoxetine HCl 20 MG CAPSULE 40 MG PO (08:56)
[2024-06-14] MEDS: buPROPion HCl XL 150 MG TAB.ER.24H PO (08:56)
--- NOTE | 2024-06-14 11:43 | P.PNIM_ITS ---
Subjective Subjective Date of Service: 06/14/24 Interval History: sob Review of Systems sob -little improving ,still sob ,desats with excersion no fevers Physical Exam 2 Vital Signs: Vital Signs: Last Vital Signs Temp 97.4 F 06/14/24 11:24 Pulse 99 06/14/24 11:24 Resp 20 06/14/24 11:24 BP 141/81 H 06/14/24 11:24 Pulse Ox 100 06/14/24 11:24 O2 Del Method Nasal Cannula 06/14/24 11:24 O2 Flow Rate 1 06/14/24 11:24 BMI result Body Mass Index 24.9 Appearance: Alert.? Oriented X3.? cvs: [id number], [id number] . res: air entry dimished ,has b/l wheezing abd: no rebound or guarding ,nt, bs present. ext pulses present , no cyanosis . neuro: axo3 , nonfocal. Objective Data Active Medications Acetaminophen (Acetaminophen 325 Mg Tablet) 975 mg PO Q6H PRN PRN Reason: Pain, Mild (Pain Scale 1-3), fever or headache Acetaminophen/Butalbital/Caffeine (Butalb/Acetamin/Caff 50/325/40 Tablet) 1 tab PO DAILY PRN PRN Reason: headache Albuterol Sulfate (Albuterol Sulfate 90 Mcg 8 Gm Inhaler) 2 puff INHALE Q6H PRN PRN Reason: Shortness Of Breath Or Wheezing Albuterol/Ipratropium (Albuterol/Iprat 2.5/0.5mg 3 Ml Ampul.Neb) 3 ml INHALE RQ4H WHILE AWAKE [facility] Last Admin: 06/14/24 11:13 Dose: 3 ml Documented By: SAMIR Apixaban (Apixaban 5 Mg Tablet) 5 mg PO BID [facility] Last Admin: 06/14/24 08:56 Dose: 5 mg Documented By: TALI Bupropion HCl (Bupropion Hcl Xl 150 Mg Tab.Er.24h) 150 mg PO DAILY [facility] Last Admin: 06/14/24 08:56 Dose: 150 mg Documented By: TALI Famotidine (Famotidine 20 Mg Tablet) 20 mg PO DAILY [facility] Last Admin: 06/14/24 08:55 Dose: 20 mg Documented By: TALI Ferrous Sulfate (Ferrous Sulfate 324 Mg Tablet.Dr) 324 mg PO DAILY [facility] Last Admin: 06/14/24 08:56 Dose: 324 mg Documented By: TALI Fluoxetine HCl (Fluoxetine Hcl 20 Mg Capsule) 40 mg PO DAILY [facility] Last Admin: 06/14/24 08:56 Dose: 40 mg Documented By: TALI Folic Acid (Folic Acid 1 Mg Tablet) 1 mg PO DAILY [facility] Last Admin: 06/14/24 08:55 Dose: 1 mg Documented By: TALI Guaifenesin (Guaifenesin 200 Mg/10 Ml 10 Ml Liquid) 10 ml PO Q6H [facility] Last Admin: 06/14/24 05:11 Dose: 10 ml Documented By: AMADO Hydroxychloroquine Sulfate (Hydroxychloroquine Sulfate 200 Mg Tablet) 300 mg PO BID [facility] Last Admin: 06/14/24 08:55 Dose: 300 mg Documented By: TALI Ceftriaxone Sodium 1 gm/ (Sodium Chloride) 100 mls @ 200 mls/hr IV Q24H [facility] Last Infusion: 06/14/24 02:10 Dose: Infused Documented By: AMADO Levothyroxine Sodium (Levothyroxine Sodium 175 Mcg Tablet) 175 mcg PO DAILY@0600 [facility] Last Admin: 06/14/24 05:03 Dose: 175 mcg Documented By: AMADO Loratadine (Loratadine 10 Mg Tablet) 10 mg PO DAILY [facility] Last Admin: 06/14/24 08:55 Dose: 10 mg Documented By: TALI Lorazepam (Lorazepam 1 Mg Tablet) 1 mg PO DAILY PRN PRN Reason: anxiety Methylprednisolone Sodium Succinate (Methylprednisolone Sod Succ 40 Mg/Ml Vial) 40 mg IVPUSH Q12H [facility] Last Admin: 06/14/24 05:03 Dose: 40 mg Documented By: AMADO Multivitamins/Vitamin C (Multivitamin Tablet) 1 tab PO DAILY [facility] Last Admin: 06/14/24 08:55 Dose: 1 tab Documented By: TALI Nicotine (Nicotine 21 Mg Patch.Td24) 21 mg TRANSDERMA DAILY [facility] Last Admin: 06/14/24 08:54 Dose: 21 mg Documented By: TALI Nortriptyline HCl (Nortriptyline Hcl 25 Mg Capsule) 75 mg PO BEDTIME [facility] Last Admin: 06/13/24 20:38 Dose: 75 mg Documented By: AMADO Pharmacy Consult (Consult Rx Vancomycin Dosing) 1 each MISCELLANE DAILY [facility] Stop: 06/14/24 00:49 Pravastatin Sodium (Pravastatin Sodium 40 Mg Tablet) 40 mg PO BEDTIME [facility] Last Admin: 06/13/24 20:37 Dose: 40 mg Documented By: AMADO Sodium Chloride (0.9 % Sodium Chloride Flush 3 Ml Syringe) 3 ml IVFLUSH QSHIFT [facility] Last Admin: 06/14/24 08:56 Dose: Not Given Documented By: TALI Non-Admin Reason: IV Running Sulfasalazine (Sulfasalazine 500 Mg Tablet) 1,000 mg PO DAILY [facility] Last Admin: 06/14/24 08:55 Dose: 1,000 mg Documented By: TALI Sulfasalazine (Sulfasalazine 500 Mg Tablet) 500 mg PO BEDTIME [facility] Last Admin: 06/13/24 20:39 Dose: 500 mg Documented By: AMADO Tramadol HCl (Tramadol Hcl 50 Mg Tablet) 50 mg PO Q6H PRN PRN Reason: Arthritic pain Last Admin: 06/13/24 21:14 Dose: 50 mg Documented By: AMADO Labs 06/13/24 06:56 06/13/24 06:56 Labs: Laboratory Results - last 24 hr 06/13/24 06:56 Procalcitonin 0.07 Microbiology Microbiology Results: Microbiology 06/12/24 23:12 Blood Culture - Preliminary Blood - Venous Prelim: GPC Gram Stain only 06/12/24 23:12 Blood Culture - Preliminary Blood - Venous No growth after 24 hours. Assessment and Plan (1) Acute hypoxic respiratory failure: Status: Acute (2) Stasis dermatitis: Status: Acute Plan 48 y/o woman with PMHx significant for lung nodules admitted with: acute Hypoxic respiratory failure likely secondary to acute exacerbation of chronic obstructive pulmonary disease. cxr:Diffusely coarsened appearance of the interstitium, similar to prior.No definite acute consolidation. sob similar ,sats still fluctuating from 87-90's range blood cultures pending Pulse oximetry. Supplemental O2 to keep O2 sats > 90%. Start therapy with bronchodilator therapy and IV steroids,antibiotics . stasis dermatitis : leg elevation oob SIRS criteria: Tachycardia improving, leukocytosis.tachypnea resolved, No sepsis. Continue to monitor. SLE. Continue hydrochloroquine. RA. Prednisone hold as she will be receiving Solu-Medrol IV. Hypothyroidism. Continue levothyroxine. History of CVA + PID. Continue Eliquis and statin. Fibromyalgia. Continue nortriptyline, bupropion and fluoxetine. Nicotine dependence. Tobacco cessation education. Nicotine gum as needed for nicotine cravings. Ongoing hospitlisation need : acute Hypoxic respiratory failure likely secondary to acute exacerbation of chronic obstructive pulmonary disease-oxygen need,nebs,steriods , blood cultures also pending. Quality Stroke Does the patient have a stroke diagnosis?: No VTE Prior VTE?: No VTE Risk Level:: Medical - moderate - high VTE Device Contraindication: Treatment Not Indicated VTE Drug Contraindication: N/A - Med Ordered
[2024-06-14] MEDS: 0.9 % Sodium Chloride Flush 3 ML SYRINGE IVFLUSH ×2 (16:44→21:02)
[2024-06-14] MEDS: Acetaminophen 325 MG TABLET 975 MG PO (17:12)
[2024-06-14] MEDS: Nortriptyline HCl 25 MG CAPSULE 75 MG PO (21:02)
[2024-06-14] MEDS: Pravastatin Sodium 40 MG TABLET PO (21:02)
[2024-06-14] MEDS: sulfaSALAzine 500 MG TABLET PO (21:02)
[2024-06-15] VITALS (12 sets, daily range): BP systolic 117–143; BP diastolic 65–75; PULSE 94–105; RESP 18–19; TEMP 36.4–37.2; O2SAT 87–98
[2024-06-15] MEDS: cefTRIAXone sodium 1 GM in 0.9 % Sodium Chloride 100 ML IV (01:11)
[2024-06-15] MEDS: guaiFENesin 200 MG/10 ML 10 ML LIQUID PO ×4 (01:11→18:34)
[2024-06-15] MEDS: Levothyroxine Sodium 175 MCG TABLET PO (06:02)
[2024-06-15] MEDS: methylPREDNISolone Sod Succ 40 MG/ML VIAL IVPUSH ×2 (06:02→18:34)
[2024-06-15] MEDS: Albuterol/Iprat 2.5/0.5MG 3 ML AMPUL.NEB INHALE ×4 (07:44→20:20)
[2024-06-15] MEDS: 0.9 % Sodium Chloride Flush 3 ML SYRINGE IVFLUSH ×3 (09:10→21:00)
[2024-06-15] MEDS: Ferrous Sulfate 324 MG TABLET.DR PO (09:11)
[2024-06-15] MEDS: sulfaSALAzine 500 MG TABLET 1000 MG PO (09:11)
[2024-06-15] MEDS: Hydroxychloroquine Sulfate 200 MG TABLET 300 MG PO ×2 (09:11→20:59)
[2024-06-15] MEDS: Loratadine 10 MG TABLET PO (09:11)
[2024-06-15] MEDS: Famotidine 20 MG TABLET PO (09:12)
[2024-06-15] MEDS: Multivitamin TABLET 1 TAB PO (09:12)
[2024-06-15] MEDS: buPROPion HCl XL 150 MG TAB.ER.24H PO (09:12)
[2024-06-15] MEDS: Folic Acid 1 MG TABLET PO (09:12)
[2024-06-15] MEDS: Nicotine 21 MG PATCH.TD24 TRANSDERMA (09:12)
[2024-06-15] MEDS: FLUoxetine HCl 20 MG CAPSULE 40 MG PO (09:12)
[2024-06-15] MEDS: Apixaban 5 MG TABLET PO ×2 (09:12→21:00)
--- NOTE | 2024-06-15 11:24 | MHC.CM.PN ---
Per ROUNDS discussion, Patient is not yet medically cleared for dc (IV Solu Medrol); PT is recommending STR and CM will continue to follow.
--- NOTE | 2024-06-15 12:51 | HO.PM.IMPN ---
Subjective Subjective Date of Service: 06/15/24 Interval History: sob Review of Systems sob -improving ,desats with excersion no fevers Physical Exam Vital Signs: Vital Signs: Last Vital Signs Temp 97.9 F 06/15/24 12:00 Pulse 95 06/15/24 12:00 Resp 19 06/15/24 12:00 BP 118/65 06/15/24 12:00 Pulse Ox 93 06/15/24 12:00 O2 Del Method Nasal Cannula 06/15/24 12:00 O2 Flow Rate 1 06/15/24 12:00 BMI result Body Mass Index 24.9 Appearance: Alert.? Oriented X3.? cvs: rrr, [id number] . res: air entry dimished ,has b/l wheezing abd: no rebound or guarding ,nt, bs present. ext pulses present , no cyanosis . neuro: axo3 , nonfocal. Objective Data Active Medications Acetaminophen (Acetaminophen 325 Mg Tablet) 975 mg PO Q6H PRN PRN Reason: Pain, Mild (Pain Scale 1-3), fever or headache Last Admin: 06/14/24 17:12 Dose: 975 mg Documented By: YANDEL Acetaminophen/Butalbital/Caffeine (Butalb/Acetamin/Caff 50/325/40 Tablet) 1 tab PO DAILY PRN PRN Reason: headache Albuterol Sulfate (Albuterol Sulfate 90 Mcg 8 Gm Inhaler) 2 puff INHALE Q6H PRN PRN Reason: Shortness Of Breath Or Wheezing Albuterol/Ipratropium (Albuterol/Iprat 2.5/0.5mg 3 Ml Ampul.Neb) 3 ml INHALE RQ4H WHILE AWAKE [facility] Last Admin: 06/15/24 11:13 Dose: 3 ml Documented By: SAMIR Apixaban (Apixaban 5 Mg Tablet) 5 mg PO BID [facility] Last Admin: 06/15/24 09:12 Dose: 5 mg Documented By: JOSHUA Bupropion HCl (Bupropion Hcl Xl 150 Mg Tab.Er.24h) 150 mg PO DAILY [facility] Last Admin: 06/15/24 09:12 Dose: 150 mg Documented By: JOSHUA Famotidine (Famotidine 20 Mg Tablet) 20 mg PO DAILY [facility] Last Admin: 06/15/24 09:12 Dose: 20 mg Documented By: JOSHUA Ferrous Sulfate (Ferrous Sulfate 324 Mg Tablet.) 324 mg PO DAILY [facility] Last Admin: 06/15/24 09:11 Dose: 324 mg Documented By: JOSHUA Fluoxetine HCl (Fluoxetine Hcl 20 Mg Capsule) 40 mg PO DAILY [facility] Last Admin: 06/15/24 09:12 Dose: 40 mg Documented By: JOSHUA Folic Acid (Folic Acid 1 Mg Tablet) 1 mg PO DAILY [facility] Last Admin: 06/15/24 09:12 Dose: 1 mg Documented By: JOSHUA Guaifenesin (Guaifenesin 200 Mg/10 Ml 10 Ml Liquid) 10 ml PO Q6H [facility] Last Admin: 06/15/24 06:10 Dose: 10 ml Documented By: ROBERT Hydroxychloroquine Sulfate (Hydroxychloroquine Sulfate 200 Mg Tablet) 300 mg PO BID [facility] Last Admin: 06/15/24 09:11 Dose: 300 mg Documented By: JOSHUA Ceftriaxone Sodium 1 gm/ (Sodium Chloride) 100 mls @ 200 mls/hr IV Q24H [facility] Last Infusion: 06/15/24 02:09 Dose: Infused Documented By: ROBERT Levothyroxine Sodium (Levothyroxine Sodium 175 Mcg Tablet) 175 mcg PO DAILY@0600 [facility] Last Admin: 06/15/24 06:02 Dose: 175 mcg Documented By: ROBERT Loratadine (Loratadine 10 Mg Tablet) 10 mg PO DAILY [facility] Last Admin: 06/15/24 09:11 Dose: 10 mg Documented By: JOSHUA Lorazepam (Lorazepam 1 Mg Tablet) 1 mg PO DAILY PRN PRN Reason: anxiety Methylprednisolone Sodium Succinate (Methylprednisolone Sod Succ 40 Mg/Ml Vial) 40 mg IVPUSH Q12H [facility] Last Admin: 06/15/24 06:02 Dose: 40 mg Documented By: ROBERT Multivitamins/Vitamin C (Multivitamin Tablet) 1 tab PO DAILY [facility] Last Admin: 06/15/24 09:12 Dose: 1 tab Documented By: JOSHUA Nicotine (Nicotine 21 Mg Patch.Td24) 21 mg TRANSDERMA DAILY [facility] Last Admin: 06/15/24 09:12 Dose: 21 mg Documented By: JOSHUA Nortriptyline HCl (Nortriptyline Hcl 25 Mg Capsule) 75 mg PO BEDTIME [facility] Last Admin: 06/14/24 21:02 Dose: 75 mg Documented By: EVELIO Pharmacy Consult (Consult Rx Vancomycin Dosing) 1 each MISCELLANE DAILY [facility] Stop: 06/14/24 00:49 Pravastatin Sodium (Pravastatin Sodium 40 Mg Tablet) 40 mg PO BEDTIME [facility] Last Admin: 06/14/24 21:02 Dose: 40 mg Documented By: EVELIO Sodium Chloride (0.9 % Sodium Chloride Flush 3 Ml Syringe) 3 ml IVFLUSH QSHIFT [facility] Last Admin: 06/15/24 09:10 Dose: 3 ml Documented By: JOSHUA Sulfasalazine (Sulfasalazine 500 Mg Tablet) 1,000 mg PO DAILY [facility] Last Admin: 06/15/24 09:11 Dose: 1,000 mg Documented By: JOSHUA Sulfasalazine (Sulfasalazine 500 Mg Tablet) 500 mg PO BEDTIME [facility] Last Admin: 06/14/24 21:02 Dose: 500 mg Documented By: EVELIO Tramadol HCl (Tramadol Hcl 50 Mg Tablet) 50 mg PO Q6H PRN PRN Reason: Arthritic pain Last Admin: 06/13/24 21:14 Dose: 50 mg Documented By: AMADO Labs 06/13/24 06:56 06/13/24 06:56 Microbiology Microbiology Results: Microbiology 06/12/24 23:12 Blood Culture - Final Blood - Venous Coag negative Staphylococcus 06/12/24 23:12 Blood Culture - Preliminary Blood - Venous No growth after 48 hours. Assessment and Plan (1) Acute hypoxic respiratory failure: Status: Acute (2) Stasis dermatitis: Status: Acute Plan 48 y/o woman with PMHx significant for lung nodules admitted with: acute Hypoxic respiratory failure likely secondary to acute exacerbation of chronic obstructive pulmonary disease. cxr:Diffusely coarsened appearance of the interstitium, similar to prior.No definite acute consolidation. sob similar ,sats still fluctuating from 87-90's range blood cultures pending Pulse oximetry. Supplemental O2 to keep O2 sats > 90%. Start therapy with bronchodilator therapy and IV steroids,antibiotics . stasis dermatitis : leg elevation oob SIRS criteria: Tachycardia improving, leukocytosis.tachypnea resolved, No sepsis. Continue to monitor. SLE. Continue hydrochloroquine. RA. Prednisone hold as she will be receiving Solu-Medrol IV. Hypothyroidism. Continue levothyroxine. History of CVA + PID. Continue Eliquis and statin. Fibromyalgia. Continue nortriptyline, bupropion and fluoxetine. Nicotine dependence. Tobacco cessation education. Nicotine gum as needed for nicotine cravings. Ongoing hospitlisation need : acute Hypoxic respiratory failure likely secondary to acute exacerbation of chronic obstructive pulmonary disease-oxygen need,nebs,steriods , blood cultures also pending. Quality Stroke Does the patient have a stroke diagnosis?: No VTE Prior VTE?: No VTE Risk Level:: Medical - moderate - high VTE Device Contraindication: Treatment Not Indicated VTE Drug Contraindication: N/A - Med Ordered
--- NOTE | 2024-06-15 14:54 | HO.PM.IMPN ---
Subjective Subjective Date of Service: 06/15/24 Physical Exam Vital Signs: Vital Signs: Last Vital Signs Temp 97.9 F 06/15/24 12:00 Pulse 95 06/15/24 12:00 Resp 19 06/15/24 12:00 BP 118/65 06/15/24 12:00 Pulse Ox 93 06/15/24 12:00 O2 Del Method Nasal Cannula 06/15/24 12:00 O2 Flow Rate 1 06/15/24 12:00 BMI result Body Mass Index 24.9 Objective Data Active Medications Acetaminophen (Acetaminophen 325 Mg Tablet) 975 mg PO Q6H PRN PRN Reason: Pain, Mild (Pain Scale 1-3), fever or headache Last Admin: 06/14/24 17:12 Dose: 975 mg Documented By: YANDEL Acetaminophen/Butalbital/Caffeine (Butalb/Acetamin/Caff 50/325/40 Tablet) 1 tab PO DAILY PRN PRN Reason: headache Albuterol Sulfate (Albuterol Sulfate 90 Mcg 8 Gm Inhaler) 2 puff INHALE Q6H PRN PRN Reason: Shortness Of Breath Or Wheezing Albuterol/Ipratropium (Albuterol/Iprat 2.5/0.5mg 3 Ml Ampul.Neb) 3 ml INHALE RQ4H WHILE AWAKE [facility] Last Admin: 06/15/24 11:13 Dose: 3 ml Documented By: SAMIR Apixaban (Apixaban 5 Mg Tablet) 5 mg PO BID [facility] Last Admin: 06/15/24 09:12 Dose: 5 mg Documented By: JOSHUA Bupropion HCl (Bupropion Hcl Xl 150 Mg Tab.Er.24h) 150 mg PO DAILY [facility] Last Admin: 06/15/24 09:12 Dose: 150 mg Documented By: JOSHUA Famotidine (Famotidine 20 Mg Tablet) 20 mg PO DAILY [facility] Last Admin: 06/15/24 09:12 Dose: 20 mg Documented By: JOSHUA Ferrous Sulfate (Ferrous Sulfate 324 Mg Tablet.Dr) 324 mg PO DAILY [facility] Last Admin: 06/15/24 09:11 Dose: 324 mg Documented By: JOSHUA Fluoxetine HCl (Fluoxetine Hcl 20 Mg Capsule) 40 mg PO DAILY [facility] Last Admin: 06/15/24 09:12 Dose: 40 mg Documented By: JOSHUA Folic Acid (Folic Acid 1 Mg Tablet) 1 mg PO DAILY [facility] Last Admin: 06/15/24 09:12 Dose: 1 mg Documented By: JOSHUA Guaifenesin (Guaifenesin 200 Mg/10 Ml 10 Ml Liquid) 10 ml PO Q6H [facility] Last Admin: 06/15/24 14:41 Dose: 10 ml Documented By: JOSHUA Hydroxychloroquine Sulfate (Hydroxychloroquine Sulfate 200 Mg Tablet) 300 mg PO BID [facility] Last Admin: 06/15/24 09:11 Dose: 300 mg Documented By: JOSHUA Ceftriaxone Sodium 1 gm/ (Sodium Chloride) 100 mls @ 200 mls/hr IV Q24H [facility] Last Infusion: 06/15/24 02:09 Dose: Infused Documented By: ROBERT Levothyroxine Sodium (Levothyroxine Sodium 175 Mcg Tablet) 175 mcg PO DAILY@0600 [facility] Last Admin: 06/15/24 06:02 Dose: 175 mcg Documented By: ROBERT Loratadine (Loratadine 10 Mg Tablet) 10 mg PO DAILY [facility] Last Admin: 06/15/24 09:11 Dose: 10 mg Documented By: JOSHUA Lorazepam (Lorazepam 1 Mg Tablet) 1 mg PO DAILY PRN PRN Reason: anxiety Methylprednisolone Sodium Succinate (Methylprednisolone Sod Succ 40 Mg/Ml Vial) 40 mg IVPUSH Q12H [facility] Last Admin: 06/15/24 06:02 Dose: 40 mg Documented By: ROBERT Multivitamins/Vitamin C (Multivitamin Tablet) 1 tab PO DAILY [facility] Last Admin: 06/15/24 09:12 Dose: 1 tab Documented By: JOSHUA Nicotine (Nicotine 21 Mg Patch.Td24) 21 mg TRANSDERMA DAILY [facility] Last Admin: 06/15/24 09:12 Dose: 21 mg Documented By: JOSHUA Nortriptyline HCl (Nortriptyline Hcl 25 Mg Capsule) 75 mg PO BEDTIME [facility] Last Admin: 06/14/24 21:02 Dose: 75 mg Documented By: EVELIO Pharmacy Consult (Consult Rx Vancomycin Dosing) 1 each MISCELLANE DAILY STA Stop: 06/14/24 00:49 Pravastatin Sodium (Pravastatin Sodium 40 Mg Tablet) 40 mg PO BEDTIME [facility] Last Admin: 06/14/24 21:02 Dose: 40 mg Documented By: EVELIO Sodium Chloride (0.9 % Sodium Chloride Flush 3 Ml Syringe) 3 ml IVFLUSH QSHIFT [facility] Last Admin: 06/15/24 14:44 Dose: 3 ml Documented By: JOSHUA Sulfasalazine (Sulfasalazine 500 Mg Tablet) 1,000 mg PO DAILY [facility] Last Admin: 06/15/24 09:11 Dose: 1,000 mg Documented By: JOSHUA Sulfasalazine (Sulfasalazine 500 Mg Tablet) 500 mg PO BEDTIME [facility] Last Admin: 06/14/24 21:02 Dose: 500 mg Documented By: EVELIO Tramadol HCl (Tramadol Hcl 50 Mg Tablet) 50 mg PO Q6H PRN PRN Reason: Arthritic pain Last Admin: 06/13/24 21:14 Dose: 50 mg Documented By: AMADO Labs 06/13/24 06:56 06/13/24 06:56 Microbiology Microbiology Results: Microbiology 06/12/24 23:12 Blood Culture - Final Blood - Venous Coag negative Staphylococcus 06/12/24 23:12 Blood Culture - Preliminary Blood - Venous No growth after 48 hours. Quality Stroke Does the patient have a stroke diagnosis?: No VTE Prior VTE?: No VTE Risk Level:: Medical - moderate - high VTE Device Contraindication: Treatment Not Indicated VTE Drug Contraindication: N/A - Med Ordered
[2024-06-15] MEDS: sulfaSALAzine 500 MG TABLET PO (21:00)
[2024-06-15] MEDS: Pravastatin Sodium 40 MG TABLET PO (21:00)
[2024-06-15] MEDS: Nortriptyline HCl 25 MG CAPSULE 75 MG PO (21:00)
[2024-06-16] VITALS (9 sets, daily range): BP systolic 116–142; BP diastolic 59–82; PULSE 88–105; RESP 17–20; TEMP 36.5–37.5; O2SAT 87–95
[2024-06-16] MEDS: cefTRIAXone sodium 1 GM in 0.9 % Sodium Chloride 100 ML IV (03:35)
[2024-06-16] MEDS: methylPREDNISolone Sod Succ 40 MG/ML VIAL IVPUSH (05:45)
[2024-06-16] MEDS: Levothyroxine Sodium 175 MCG TABLET PO (05:45)
[2024-06-16] MEDS: Apixaban 5 MG TABLET PO (07:50)
[2024-06-16] MEDS: sulfaSALAzine 500 MG TABLET 1000 MG PO (07:50)
[2024-06-16] MEDS: Multivitamin TABLET 1 TAB PO (07:50)
[2024-06-16] MEDS: Famotidine 20 MG TABLET PO (07:50)
[2024-06-16] MEDS: Loratadine 10 MG TABLET PO (07:50)
[2024-06-16] MEDS: FLUoxetine HCl 20 MG CAPSULE 40 MG PO (07:50)
[2024-06-16] MEDS: Ferrous Sulfate 324 MG TABLET.DR PO (07:50)
[2024-06-16] MEDS: Folic Acid 1 MG TABLET PO (07:50)
[2024-06-16] MEDS: guaiFENesin 200 MG/10 ML 10 ML LIQUID PO ×2 (07:51→12:25)
[2024-06-16] MEDS: Nicotine 21 MG PATCH.TD24 TRANSDERMA (07:51)
[2024-06-16] MEDS: buPROPion HCl XL 150 MG TAB.ER.24H PO (07:51)
[2024-06-16] MEDS: Hydroxychloroquine Sulfate 200 MG TABLET 300 MG PO (07:52)
[2024-06-16] MEDS: 0.9 % Sodium Chloride Flush 3 ML SYRINGE IVFLUSH ×2 (07:56→15:37)
[2024-06-16] MEDS: Albuterol/Iprat 2.5/0.5MG 3 ML AMPUL.NEB INHALE ×3 (08:07→15:13)
--- NOTE | 2024-06-16 10:21 | P.DS_ITS ---
DS: Providers Provider Date of Service: 06/16/24 Date of admission: 06/13/24 01:05 Primary care physician: Luiza Rockwell MD DS: Diagnosis Discharge Diagnosis (1) Acute hypoxic respiratory failure: Status: Acute (2) Stasis dermatitis: Status: Acute DS: Summary Hospital Course Hospital Course: admission hpi Chief Complaint: Lower extremity swelling and pain Emiliana Rea is a 48 years old woman with past medical history significant for COPD -not home oxygen, RA on low dose prednisone, SLE on hydrochloroquine, hypothyroidism, CVA + PAD on Eliquis, fibromyalgia and chronic pain on oxycodone presents to the emergency department complaining of lower extremity swelling pain and redness that started over the last few days. She denied associated fever or chills. She also reports worsening productive cough, wheezing or shortness on breath. She has ongoing tobacco smoker, smokes 1 pack per day. She also denied any headache, palpitations, chest pain, abdominal pain, nausea, vomiting or diarrhea. At the beginning of current month, she was admitted to the hospital with right lower extremity cellulitis. Denied alcohol abuse or illicit drug use. In the ED, she was found to have tachypnea, tachycardia low oxygen saturation (87%). There is no fever. Blood workup was remarkable for leukocytosis of 17.4, hemoglobin of 11.0 and platelets 197. There is no lactic acidosis or electrolyte imbalances. BNP is normal. Renal function is normal. ED tx: Vancomycin 1 g IV. Hospital course: She presented with lower extremity swelling and pain, she has chronic stasis dermatitis and recurrent cellulitis of the legs. Additionally she has been treated for COPD exacerbation, she is supposed to be on O2 at home but doesn't use. For cellulitis of the legs, he was treated initally with IV Vancomycin and later Cefttriaxone added. Swelling and redness in he leg have resolved, will continue Ceftin for a total of 7 days of Abx. As for COPD exacerbation with acute on chronic hypoxic respiratory failure, she was treated with Corticosteroid, bronchodilators by Neb and is feeling better, she has no respiratory difficulty. Her baseline oxygen at rest ranged from 88 and above, she is on oxygen at home which she admits doesn't ue as directed and is adivised to use as directed. Respiratory has verified that she her oxygen prescription is active Time Attestation Discharge Coordination Time (in mins): 35 Quality: Safe Use of Opioids Does Pt have an Active Cancer Diagnosis on the Problem List?: No Quality: Stroke Does the patient have a stroke diagnosis?: No Physical Exam Vital Signs: Vital Signs: Last Vital Signs Temp 98.1 F 06/16/24 07:11 Pulse 92 06/16/24 08:07 Resp 17 06/16/24 08:07 BP 136/79 06/16/24 07:11 Pulse Ox 89 L 06/16/24 09:22 O2 Del Method Nasal Cannula 06/16/24 09:22 O2 Flow Rate 3 06/16/24 09:22 BMI result Body Mass Index 24.9 DS: Data Data Completed and Pending Completed studies during hospitalization [Text1]: Procedures Assistance with Respiratory Ventilation, Less than 24 Consecutive Hours, Continuous Positive Airway Pressure (11/25/21) Labs on day of discharge: Preliminary micro results at discharge 06/12/24 23:12 Blood Culture - Preliminary Blood - Venous No growth after 48 hours. Discharge Plan Discharge Anticipated Discharge Date/Time: 06/16/24 10:17 Patient Disposition: Home, Self-Care Discharge Diagnosis: copd exacerbation, Cellulitis of the legs Referrals: Luiza Rockwell MD [Primary Care Provider] - 1 Week Discharge Medications: New doxycycline monohydrate 100 mg capsule 100 mg PO BID Qty: 10 0RF cefuroxime axetil 500 mg tablet 500 mg PO BID 5 Days Qty: 10 0RF prednisone 20 mg tablet 40 mg PO DAILY Qty: 2 0RF Rx Instructions: starting tomorrow Continued hydroxychloroquine 200 mg tablet 300 mg PO BID Qty: 135 1RF prednisone 2.5 mg tablet 2.5 mg PO DAILY Qty: 30 0RF bupropion HCl 100 mg tablet sustained-release 12 hr 100 mg PO BID albuterol sulfate 90 mcg/actuation HFA aerosol inhaler 2 puff inhalation Q6H PRN (Reason: Shortness Of Breath Or Wheezing) loratadine 10 mg Tablet 10 mg PO DAILY fluoxetine 20 mg capsule 2 cap PO DAILY famotidine 20 mg tablet 1 tab PO DAILY oanzvmcvek-ffklzuiwvvzwr-cajr 50-325-40 mg tablet 1 tab PO DAILY PRN (Reason: headache) ferrous sulfate [FeroSul] 325 mg (65 mg iron) tablet 1 tab PO DAILY Spiriva Respimat 2.5 mcg/actuation mist 1 puff INHALATION DAILY multivitamin [One Daily Multivitamin] Tablet 1 tab PO DAILY levothyroxine 175 mcg tablet 175 mcg PO DAILY@0600 folic acid 1 mg tablet 1 mg PO DAILY Eliquis 5 mg tablet 5 mg PO BID lorazepam 1 mg tablet 1 mg PO DAILY PRN (Reason: anxiety) sulfasalazine 500 mg tablet 1,000 mg PO DAILY acetaminophen [Tylenol] 325 mg Tablet 650 mg PO Q6H PRN (Reason: Pain) sulfasalazine 500 mg tablet 500 mg PO BEDTIME nortriptyline 75 mg capsule 75 mg PO BEDTIME pravastatin 40 mg tablet 40 mg PO BEDTIME (DME) nebulizer and compressor [[employer] Aerosol Delivery System] Device See Rx Instructions .ROUTE DIRECTED Qty: 1 Rx Instructions: As directed fluticasone propion-salmeterol [Advair HFA] 230-21 mcg/actuation HFA aerosol inhaler 2 puff inhalation BID 30 Days Qty: 12 5RF Rx Instructions: administer with spacer (DME) Aerovent Plus Spacer See Rx Instructions .Route Qty: 10 0RF Rx Instructions: As directed Discharge Orders: Discharge Order (Routine); Ordered 06/16/24 Ordered By: Hua Zepeda Diet: Advance to usual diet Activity on Discharge: As tolerated Stand Alone Forms: Patient Portal Discharge page Print Language: [place] Care Plan Goals: recovery from copd and cellulitis of the leg Health Concerns: copd exacerbaton cellulitis of the legs Plan of Treatment: use inhalers and oxygen as directed take antibiotics (Doxycycline and Cefuroxime) as recommended and follow up with your Doctor in a week Assessment: see above Discharge Date/Time: 06/16/24 18:27
[2024-06-16] MEDS: vancomycin HCL 1,500 MG in 0.9 % Sodium Chloride 500 ML 333.33 MG IV (15:37)
--- NOTE | 2024-06-16 15:55 | MHC.CM.PN ---
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
[2024-06-16 16:15] LABS: Creatinine Clr Calc Pharmacy 78.9; Estimated Glomerular Filt Rate > 60
--- NOTE | 2024-06-16 18:25 | PC.NURSE ---
Patient discussed with MD that she wanted to go home today. Discharged home with oxygen take.
== END 2024-06-16 18:27 | disposition home or self-care (01) | DRG 383 ==
LOC: HO.ED 06-13 01:03 → HO.EDOVER 06-13 01:11 → HO.IMC 06-13 03:21
PROVIDERS: Internal Medicine; Admitting Provider Internal Medicine; Emergency Provider Internal Medicine; PCP Internal Medicine; Visit Provider Internal Medicine
DX: L03.116 Cellulitis of left lower limb (principal); J96.21 Acute and chronic respiratory failure with hypoxia; D84.9 Immunodeficiency, unspecified; M32.9 Systemic lupus erythematosus, unspecified; E03.9 Hypothyroidism, unspecified; F17.210 Nicotine dependence, cigarettes, uncomplicated; J44.1 Chronic obstructive pulmonary disease with (acute) exacerbation; M06.9 Rheumatoid arthritis, unspecified; I87.2 Venous insufficiency (chronic) (peripheral); Z20.822 Contact with and (suspected) exposure to COVID-19; Z71.6 Tobacco abuse counseling; Z91.199 Patient's noncompliance with other medical treatment and regimen due to unspecified reason; Z99.81 Dependence on supplemental oxygen; Z86.73 Personal history of transient ischemic attack (TIA), and cerebral infarction without residual deficits; Z79.01 Long term (current) use of anticoagulants; Z79.51 Long term (current) use of inhaled steroids; Z79.52 Long term (current) use of systemic steroids; Z79.890 Hormone replacement therapy; Z79.899 Other long term (current) drug therapy
CPT/HCPCS: 0241U; 36415; 71045; 80048; 80053; 82565; 83605; 83735; 83880; 84145; 85025; 87040; 87147; 87205; 97110; 97162; 99285; J0696; J2919; J3370; J3371

== ENCOUNTER → 2024-06-13 01:05 | Outpatient (BNV) | payer MEDICAID, SELFPAY | PROVIDERS: Admitting Provider Internal Medicine; Emergency Provider Internal Medicine; PCP Family Medicine; Visit Provider Internal Medicine | DX: J96.21 Acute and chronic respiratory failure with hypoxia (principal); I87.2 Venous insufficiency (chronic) (peripheral) | CPT/HCPCS: 99222; 99231; 99232; 99239; 99499 ==

== ENCOUNTER 2024-06-26 15:37 | Outpatient (REF) | payer MEDICAID, SELFPAY ==
[2024-06-26 16:01] LABS: MANUAL DIFF FLAG NO
[2024-06-26 17:06] LABS: Basophils Absolute Auto 0.1 X10*3/uL (0.0-0.2); Basophils Percent Auto 0.9 % (0-2); Eosinophils Absolute Auto 0.9 X10*3/uL (0.0-0.4); Eosinophils Percent Auto 7.5 % (0-4); Hematocrit 35.7 % (37.0-47.0); Hemoglobin 10.7 g/dl (12.0-16.0); Imm Gran Abs Auto 0.21 X10*3/uL (0.00-0.03); Imm Gran Pct Auto 1.8 % (0.0-0.4); Lymphocytes Absolute Auto 1.4 X10*3/uL (1.2-4.9); Mean Corpuscular Hemoglobin 26.7 pg (27.0-33.0); Mean Platelet Volume 9.1 fL (9.4-12.3); Monocytes Absolute Auto 0.7 X10*3/uL (0.1-1.2); Monocytes Percent Auto 6.2 % (2-11); Neutrophils Absolute Auto 8.3 x10*3/uL (2.0-8.3); Neutrophils Percent Auto 71.6 % (45-73); Platelet Count 215 X10*3/uL (160-400); Red Blood Count 4.01 X10*6/uL (4.20-5.50); Red Cell Distribution Width 13.6 % (11.0-16.0); White Blood Count 11.6 X10*3/uL (4.8-10.8)
[2024-06-26 17:15] LABS: Appearance Urine Clear; Color Urine Yellow; Glucose Urine UA Negative (Negative); Leukocyte Esterase Urine Small (1+) (Negative); Nitrite Urine Negative (Negative); UMIC TRIGGER UA YES; Urine Blood Negative (Negative); Urine Ketones Negative (Negative); Urine Protein 30 (1+) mg/dL (Neg-Trace)
[2024-06-26 17:44] LABS: Bacteria Urine None Seen (None Seen); Hyaline Casts Urine 0-2 /LPF (0-2); RBC Urine 0-2 /HPF (0-2); Squamous Epithelial Cell Urine 0-2 /HPF (0-2); WBC Urine 0-5 /HPF (0-5)
[2024-06-26 18:24] LABS: Creatinine Urine 26.87 mg/dL; Total Protein Urine Random 27 mg/dL (<12)
[2024-06-26 18:28] LABS: Alanine Aminotransferase 32 U/L (0-31); Albumin Level 3.6 g/dL (3.5-5.0); Alkaline Phosphatase 134 U/L (39-117); Anion Gap 16 (12-20); Aspartate Amino Transferase 37 U/L (5-31); Bilirubin Total 0.1 mg/dL (0.0-1.0); Blood Urea Nitrogen 11 mg/dL (9-16); Calcium 9.6 mg/dL (8.4-10.2); Carbon Dioxide 24 mmol/L (22-29); Chloride 105 mmol/L (96-108); Estimated Glomerular Filt Rate > 60; Glucose Random 107 mg/dL (60-115); Sodium 140 mmol/L (135-145); Total Protein 6.4 g/dL (6.5-8.0)
[2024-06-26 19:18] LABS: Erythrocyte Sedimentation Rate 27 MM/HR (0-20)
[2024-06-29 09:18] LABS: Complement C3 71 mg/dL (83-193)
[2024-06-29 21:24] LABS: Anti DNA DS Antibody 30 IU/mL
== END 2024-06-26 15:38 | disposition home or self-care (01) ==
LOC: HO.LAB 15:37
PROVIDERS: Absent Provider Internal Medicine Nephrology; PCP Internal Medicine; Visit Provider Student in an Organized Health Care Education/Training Program
DX: M32.9 Systemic lupus erythematosus, unspecified (principal)
CPT/HCPCS: 36415; 80053; 81001; 82570; 84156; 85025; 85652; 86160; 86225

== ENCOUNTER 2024-07-21 11:25 | Outpatient (AMB) | payer OTHER, SELFPAY ==
--- NOTE | 2024-07-21 11:30 | A.OFFPC_ITS ---
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 Account Relationship Manager Required: No Is last menstrual period known: No Post menopausal: No Patient : No Allergies clarithromycin [CLARITHROMYCIN] Allergy (Intermediate, Verified 07/21/24 12:23) FACIAL SWELLING/REDNESS, facial rash, facial rash, facial rash, facial rash Medication List - Last Reconciled 07/21/24 by Sylvia Hicks CNP acetaminophen (Tylenol) 650 mg PO Q6H PRN albuterol sulfate 90 mcg/actuation 2 puffs inhalation Q6H PRN apixaban (Eliquis) 5 mg PO BID bupropion HCl SR 100 mg PO BID gisptwjxhu-dfmhzwhmeicxo-cfzc 50-325-40 mg 1 tab PO DAILY PRN famotidine 1 tab PO DAILY ferrous sulfate (FeroSul) 1 tab PO DAILY fluoxetine 2 caps PO DAILY fluticasone propion-salmeterol 230-21 mcg/actuation (Advair HFA) 2 puffs inhalation BID 30 days folic acid 1 mg PO DAILY hydroxychloroquine 300 mg (1.5 x 200 mg) PO BID inhalational spacing device (Aerovent Plus spacer) As directed levothyroxine 175 mcg PO DAILY@0600 loratadine 10 mg PO DAILY lorazepam 1 mg PO DAILY PRN multivitamin (One Daily Multivitamin tablet) 1 tab PO DAILY nebulizer and compressor (Vios Aerosol Delivery System) As directed nortriptyline 75 mg PO BEDTIME oxycodone 15 mg PO TID PRN pravastatin 40 mg PO BEDTIME prednisone 40 mg (2 x 20 mg) PO DAILY prednisone 2.5 mg PO DAILY sulfasalazine 1,000 mg PO DAILY sulfasalazine 500 mg PO BEDTIME tiotropium bromide 2.5 mcg/actuation (Spiriva Respimat) 1 puff inhalation DAILY Tobacco use date assessed: 07/21/24 Dental Screening Dental Screen Date: 07/21/24 Did you have a dental visit in the last 12 months?: No Did you have a dental problem in the last 6 months where you did not have access to dental care?: No Was dental information given to patient?: Patient declined HPI HPI Comments History of Present Illness Details New patient Accompanied by her IDENTIFICATION TECHNICIAN [place] [facility] [place] Last office visit/CPE: About 5-6 months Acute issue(s): COPD -She is on albuterol inhaler and Advair Chronic pain -currently on oxycodone GERD -on famotidine daily EDEN -on ferrous sulfate daily Anxiety and depression -on bupropion, fluoxetine, and lorazepam SLE, RA -on sulfasalazine, prednisone, and hydro xychloroquine Hypothyroidism -on levothyroxine daily Unsteady gait which she attributes to chronic right knee pain and bilateral charcot foot -she uses a cane or walker for ambulatio n She is not followed by a therapist or psychiatrist PMHx: COPD, smoker, PAD, hyperlipidemia, SLE, RA, degenerative cervical disc, hypothyroidism, fibromyalgia, chronic pain, right knee osteoarthritis, CVA (10 years ago), recurrent cellulitis of the legs, long-term systemic steroid use, proteinuria, iron-deficiency anemia, GERD, anxiety, and depression SurgHx: Partial hysterectomy, cholecystectomy, bunionectomy, breast lump/mass excision FHx: Mom: SocHx: She smokes a pack of cigarettes daily and has been smoking for 30 years. She does not drink alcohol. No recreational drugs She sometimes limits the amount of cigarettes she smokes. She has nicotine patches which she has not used in a long time. She has plans to resume using the patches Last Pap smear test 5 years ago: abnormal but no malignancy Last mammogram was in 06/2023: negative. She missed her recent appointment due to recent hospitalization but would call to reschedule Last lung CT was in 04/2024 She has never had a colonoscopy Last tetanus vaccine was 7 years ago She is followed by [facility] pulmonology, Rheumatology, Cardiology, Nephrology, and Vascular surgery. She is followed by [facility] in [place]. She is followed by [facility] for routine eye exam and due this month She was hospitalized at [facility] in 06/06/2024. Summary of hospital treatment and plan below: Hospital course: She presented with lower extremity swelling and pain, she has chronic stasis dermatitis and recurrent cellulitis of the legs. Additionally she has been treated for COPD exacerbation, she is supposed to be on O2 at home but doesn't use. For cellulitis of the legs, he was treated initally with IV Vancomycin and later Cefttriaxone added. Swelling and redness in he leg have resolved, will continue Ceftin for a total of 7 days of Abx. As for COPD exacerbation with acute on chronic hypoxic respiratory failure, she was treated with Corticosteroid, bronchodilators by Neb and is feeling better, she has no respiratory difficulty. Her baseline oxygen at rest ranged from 88 and above, she is on oxygen at home which she admits doesn't ue as directed and is adivised to use as directed. Respiratory has verified that she her oxygen prescription is active She states that she is not currently on daily oxygen. She notes that she was told by pulmonology to use 1L of oxygen as needed [facility] Medical History (Updated 07/21/24 @ 16:40 by Sylvia Hicks CNP) Depression Anxiety Kidney disease Headache Swelling Arthritis Hx of blood clots Sinusitis Asthma Stasis dermatitis Bilateral lower leg cellulitis Cellulitis COPD (chronic obstructive pulmonary disease) Lung density on x-ray Smoker COPD (chronic obstructive pulmonary disease) with acute bronchitis Bilateral pneumonia Tobacco abuse C. difficile colitis Sepsis Community acquired pneumonia Bilateral pneumonia Open wound of right elbow Respiratory failure with hypoxia Pneumonia due to COVID-19 virus Acute respiratory distress syndrome (ARDS) due to COVID-19 virus Acute exacerbation of chronic obstructive airways disease Acute hypoxemic respiratory failure due to COVID-19 Ulcer of lower extremity Sepsis with acute hypoxic respiratory failure without septic shock Encounter for testing for latent tuberculosis infection Falling Charcot's joint of foot Cellulitis Redness and swelling of lower leg C. difficile colitis Secondary bacterial pneumonia Immunosuppression due to chronic steroid use Mixed connective tissue disease Cellulitis of right leg PAD (peripheral artery disease) Varicose veins of right lower extremity with inflammation Rheumatoid arthritis Cellulitis CVA (cerebral vascular accident) Proteinuria Fibromyalgia Hypothyroid Lupus Surgical History Status post incision and drainage History of breast lump/mass excision History of excision of mass History of partial hysterectomy History of cholecystectomy History of bunionectomy Family History (Updated 07/21/24 @ 11:42 by Inge Vargas) Father No problems noted. Mother Lung cancer Rheumatoid arthritis Social History Household Members: Children Household Members Other:: My twin sons Housing: House Do you presently have visiting nurse or other home services: Yes Alcohol intake: former Comment: pt asleep Patient Tobacco Use Status: Current everyday Tobacco user Tobacco use type: Cigarette Cigarette Packs Per Day: 1 Cigarettes Per Day: 20.0 Years Smoked: 30 Second Hand Smoke Exposure: No Substance Use Type: Marijuana Advance Directives Date on File: 11/26/21 service: No Current occupational status: unemployed and disabled Current occupation: right hand dominant Cognitive needs: No Hearing needs: No Vision needs: Yes Questionnaire PHQ-9 Over the last 2 weeks, how often have you been bothered by any of the following problems? 1. Little interest or pleasure in doing things: not at all 2. Feeling down, depressed, or hopeless: not at all 3. Trouble falling or staying asleep, or sleeping too much: not at all 4. Feeling tired or having little energy: several days 5. Poor appetite or overeating: not at all 6. Feeling bad about yourself - or that you are a failure or have let yourself or your family down: not at all 7. Trouble concentrating on things, such as reading the newspaper or watching television: not at all 8. Moving or speaking so slowly that other people could have noticed. Or the opposite - being so fidgety or restless that you have been moving around a lot more than usual: not at all 9. Thoughts that you would be better off or of hurting yourself in some way: not at all Total score: 1 Depression Screening Interpretation: Negative Depression Screening Done: Yes 72073 - PHQ-9 Billing: Yes Source: Developed by Drs. Jose A Olson, Chanelle Lyons, Justin Chairez and colleagues, with an educational virgilio from [employer]. Thrive Questionnaire Date Thrive assessed: 07/21/24 I am a: Patient What is your living situation today?: I have a steady place to live Within the past 12 months, did the food you bought not last and you didn't have the money to get more?: Never true Within the past 12 months, did you worry whether your food would run out before you got money to buy more?: Never true Do you have trouble paying for medicines?: No Do you have trouble getting transportation to medical appointments?: No Do you have trouble paying your heating and electricity bill?: No Do you have trouble taking care of your child, family member or friend?: No Do you have trouble with day-to-day activities such as bathing, preparing meals, shopping, managing finances, etc.?: No Are you currently unemployed and looking for a job?: No Are you interested in more education?: No Please select the resources that you would like help with: None Currently or been in a relationship where the following occur: No concerns reported THRIVE Score: 0 AUDIT C Alcohol Use Questionnaire (AUDIT-C) 1. How often do you have a drink containing alcohol?: Never Total Score: 0 Score Reviewed/Action Taken: Yes BULMARO-7 AMB Questionnaire BULMARO-7 Date BULMARO - 7 assessed: 07/21/24 Feeling nervous, anxious, or on edge: 1 = Several days Not being able to stop or control worryin = Several days Worrying too much about different things: 1 = Several days Trouble relaxin = Several days Being so restless that it is hard to sit still: 1 = Several days Becoming easily annoyed or irritable: 0 = Not at all Feeling afraid as if something awful might happen: 0 = Not at all Total BULMARO-7 score (0-4 normal; 5-9 mild; 10-14 moderate; 15-21 severe): 5 Source: Developed by Drs. Jose A Olson, Chanelle Lyons, Justin Chairez and colleagues, with an educational virgilio from [employer]. BULMARO-7 Assessment Billing BULMARO-7 Assessment Tool: BULMARO-7 Assessment 30804 ACT Questionnaire In the past 4 weeks, how much of the time did your asthma keep you from getting as much done at work, school or at home?: A little of the time During the past 4 weeks, how often have you had shortness of breath?: 3-6 times a week During the past 4 weeks, how often did your asthma symptoms wake you up at night or earlier than usual in the morning?: 2-3 nights a week During the past 4 weeks, how often have you had to use your rescue inhaler or nebulizer medication?: Not at all How would you rate your asthma control during the past 4 weeks?: Somewhat controlled Score: 17 Review of Systems Const Details: Denies chills, Denies fatigue, Denies fever(s), Denies headache(s) and Denies weakness HEENT Denies change in vision, Denies dizziness, Denies headache(s), Denies hearing loss, Denies nasal congestion, Denies sinus pain, Denies sinus pressure and Denies sore throat Card Denies chest pain, Denies lightheadedness, Denies dyspnea and Denies other (palpitations) Resp Denies cough, Denies dyspnea and Denies wheezing GI Denies abdominal pain, Denies melena, Denies hematochezia, Denies change in bowel habits, Denies dyspepsia and Denies nausea Denies hematuria and Denies dysuria Musc Reports abnormal gait, Reports right knee pain and swelling, Denies numbness and Denies tingling Skin/Breast Denies rash, Denies unusual bruising and Denies wounds Neuro Reports abnormal gait, Denies dizziness, Denies headache(s), Denies memory loss, Denies numbness, Denies Sensory deficit (Neuro), Denies tingling and Denies weakness Psych Denies anxiety, Denies depression and Denies memory loss Endo Denies cold intolerance, Denies fatigue, Denies heat intolerance, Denies ronda ydipsia and Denies polyuria Louie/Lymph Denies easy bleeding and Denies easy bruising Aller/Immun Denies wheezing Physical exam (Primary Care) Vital Signs: Last Vital Signs Temp 98.1 F 07/21/24 11:46 Pulse 93 07/21/24 11:46 Resp 16 07/21/24 11:46 BP 108/62 07/21/24 11:46 Pulse Ox 92 07/21/24 11:46 Oxygen Delivery Method Room Air 07/21/24 11:46 BMI result Body Mass Index 24.2 Tobacco/Smoking Status: Tobacco use Status Tobacco use date assessed 07/21/24 07/21/24 11:55 Patient Tobacco Use Status Current everyday Tobacco 07/21/24 11:33 Tobacco use type Cigarette 07/21/24 11:33 PHQ-9: PHQ-9 Score PHQ-9: Total score 1 07/21/24 16:40 Depression Screening Interpretation: Negative Thrive Assessment: Date of Thrive Assessment Date Thrive assessed 07/21/24 07/21/24 11:55 Currently or been in a relationship where the following occur: No concerns reported Const Other: General: no acute distress, well developed, alert and awake Nutritional Appearance: well nourished Orientation/consciousness: patient oriented x3 [facility] Head: Yes normocephalic and Yes atraumatic Ears: hearing grossly normal bilaterally and TM's normal bilaterally General nose exam: Normal external nose present and Normal nares present Mouth: Normal oral and palatal mucosa present and moist mucous membranes Teeth and gingiva: Endentulous Throat: Yes oropharynx normal Eyes Pupils: Equal, round and reactive pupils present and Pupil accommodation reflex normal EOM: EOMs intact bilaterally Neck Neck: Yes normal visual inspection, Yes no lymphadenopathy and Yes trachea midline Thyroid: Thyroid normal Carotids: no bruits Lymphatic: no lymphadenopathy noted Chest Chest palpation & inspection: normal inspection of the chest Resp Effort & Inspection: normal respiratory effort Auscultation: Coarse bilaterally Cardio Rate: regular rate Rhythm: regular rhythm Heart sounds: S1 normal heart sound present, S2 normal heart sound present, no gallops, no murmurs and no rubs Bruits: no abdominal aortic bruits and no carotid bruits GI Palpation (GI): No Abdominal aortic bruit present, Soft to palpation, nontender, No hepatosplenomegaly present and No Rebound tenderness present Auscultation: normal bowel sounds General: Yes no CVA tenderness Back/Spine/Pelvis Back: no CVA tenderness Cervical Spine: cervical ROM normal and No Cervical spine tenderness Thoracic/Lumbar Spine: thoraco-lumbar ROM normal, No pain with thoraco-lumbar ROM, No thoracic spinal tenderness and No lumbar spinal tenderness Skin General: warm and dry. Normal skin color. Normal skin turgor Lesions: no lesions Rashes: no rashes Trauma: no lacerations or abrasions Wounds: no wounds Nails: normal Neuro General: patient oriented x3, gait normal and CN's II-XI intact bilaterally Cranial nerves: Yes Equal, round and reactive pupils present Cognition (Neuro): normal cognition Gait exam (Neuro): Unsteadyl gait present Motor exam (neuro): 5/5 motor strength present throughout Sensory Exam: No Sensory deficit (Neuro) Deep tendon reflexes (DTR's): Right patellar reflex intensity grade: 2+ and Left patellar reflex intensity grade: 2+ Extrem General: Yes normal to inspection, No calf tenderness Moderate, non-pitting edema noted to bilateral knees and lower legs, right greater than left, positive pedal pulses bilaterally Psych Appearance: grossly normal Affect: normal affect Attitude: cooperative Thought process: Normal thought process present Assessment and Plan Assessment & Plan (1) Encounter for routine adult physical exam with abnormal findings: Code(s): Z00.01 - Encounter for general adult medical examination with abnormal findings Plan: Significant physical restrictions and limitations due to chronic right knee pain and unsteady gait. Bilateral charcot foot may also contribute to unsteady gait Continue current treatment regimen Healthy diet and routine exercise encouraged Advised to use assistive devices at all times for ambulation Advised to establish with a dentist for routine dental care Encouraged to signed a consent to obtain orthopedics and ophthalmology records Encouraged to lab work done and follow-up in 3-4 weeks for labs review Continue to follow-up with specialists as planned Return sooner with symptoms or concerns Verbalized understanding and agreed with treatment plan (2) Osteoarthritis of right knee: Code(s): M17.11 - Unilateral primary osteoarthritis, right knee Plan: Reports swelling and chronic pain of the right knee Moderate, non-pitting edema noted to bilateral knees and lower legs, right greater than left, positive pedal pulses bilaterally Continue current treatment regimen Encouraged to elevate bilateral lower extremity Follow-up with Ortho and vascular surgery as planned Return with worsening or new signs and symptoms Verbalized understanding and agreed with the treatment plan (3) Anxiety and depression: Code(s): F41.9 - Anxiety disorder, unspecified; F32.A - Depression, unspecified Plan: Controlled anxiety and depressive symptoms PHQ-9 score is negative. BULMARO-7 score reveals mild anxiety Continue current treatment regimen Routine exercise encouraged Follow-up with symptoms or concerns Verbalized understanding and agreed with the treatment plan (4) COPD (chronic obstructive pulmonary disease): Code(s): J44.9 - Chronic obstructive pulmonary disease, unspecified Plan: Coarse lung sounds bilaterally Continue current treatment regimen Followed by pulmonology (5) Unsteady gait: Code(s): R26.81 - Unsteadiness on feet Plan: Unsteady gait which she attributes to chronic right knee pain and bilateral charcot foot Instructed on safety and encouraged to always utilize assistive devices for ambulation Verbalized understanding and agreed with the plan (6) Smoker: Code(s): F17.200 - Nicotine dependence, unspecified, uncomplicated Plan: She smokes a pack of cigarettes daily and has been smoking for the past 30 years. She notes that she sometimes reduces the amount of cigarettes she smokes. She has nicotine patches which she plans on using. Instructed on the health risks and complications of cigarette smoking and encouraged to quit. Advised to use nicotine patch as prescribed. She may request more nicotine patches former PCP as needed. She verbalized understanding and agreed with the treatment plan (7) Colon cancer screening: Code(s): Z12.11 - Encounter for screening for malignant neoplasm of colon Plan: She has never had a colonoscopy Referred to [facility] for colonoscopy (8) Pap smear for cervical cancer screening: Code(s): Z12.4 - Encounter for screening for malignant neoplasm of cervix Plan: Last Pap smear test 5 years ago: abnormal but no malignancy Referred to [facility] position classifier for a Pap smear test (9) Laboratory tests ordered as part of a complete physical exam (CPE): Code(s): Z00.00 - Encounter for general adult medical examination without abnormal findings Plan: Fasting labs ordered as part of a complete physical exam. Advised to fast for at least 10 hours before getting labs drawn. May drink water Verbalized understanding and agreed with treatment plan. Orders: Orders Glucose Fasting 07/21/24 Z00.00 - Encounter for general adult medical examination without abnormal findings Liver Panel 07/21/24 Z00.00 - Encounter for general adult medical examination without abnormal findings Lipid Panel 07/21/24 Z00.00 - Encounter for general adult medical examination without abnormal findings Complete Blood Count Auto Diff 07/21/24 Z00.00 - Encounter for general adult medical examination without abnormal findings TSH reflex Free T4 07/21/24 E03.9 - Hypothyroidism, unspecified IRON PROFILE 07/21/24 D50.9 - Iron deficiency anemia, unspecified Ferritin 07/21/24 D50.9 - Iron deficiency anemia, unspecified Referrals Gastroenterology Referral Z12.11 - Encounter for screening for malignant neoplasm of colon [employer]LOOR[employer]OR Referral Z12.4 - Encounter for screening for malignant neoplasm of cervix Coding Level of Care Code New Pt Level 4 (46001) New Pt Prev Care 40-64y(23599) Diagnoses Encounter for routine adult physical exam with abnormal findings Z00.01 Osteoarthritis of right knee M17.11 Anxiety and depression F41.9; F32.A COPD (chronic obstructive pulmonary disease) J44.9 Unsteady gait R26.81 Smoker F17.200 Colon cancer screening Z12.11 Pap smear for cervical cancer screening Z12.4 Laboratory tests ordered as part of a complete physical exam (CPE) Z00.00 Additional Codes BULMARO-7 Assessment Billing - BULMARO-7 Assessment Tool: BULMARO-7 Assessment 26181 ([id number])
[2024-07-21 11:46] VITALS: BP 108/62; PULSE 93; RESP 16; TEMP 36.7; O2SAT 92; BMI 24.2
== END 2024-07-21 13:05 | disposition home or self-care (01) ==
PROVIDERS: PCP Nurse Practitioner Family; Visit Provider Nurse Practitioner Family
DX: Z00.00 Encounter for general adult medical examination without abnormal findings (principal); J44.9 Chronic obstructive pulmonary disease, unspecified; M17.11 Unilateral primary osteoarthritis, right knee; F41.9 Anxiety disorder, unspecified; F32.A Depression, unspecified; R26.81 Unsteadiness on feet; F17.200 Nicotine dependence, unspecified, uncomplicated; Z12.11 Encounter for screening for malignant neoplasm of colon
CPT/HCPCS: 99386

== ENCOUNTER 2024-08-17 15:05 | Outpatient (AMB) | payer OTHER, SELFPAY ==
--- NOTE | 2024-08-17 15:05 | MHC.OFFVIS ---
Vital Signs 08/17/24 15:08 Height 5 ft 1 in Weight 130 lb BMI 24.6 BP 117/62 Blood Pressure Location Rt brachial Position Sitting Pulse 98 Pulse Source Pulse Oximeter Pulse Oximetry (%) 96 Oxygen Delivery Method Room Air Intake Visit Reasons: Unilateral primary osteoarthritis, right knee Intake Note: Pain today [employer] Required: No Accompanied by: Family/Other Allergies clarithromycin [CLARITHROMYCIN] Allergy (Intermediate, Verified 08/17/24 15:10) FACIAL SWELLING/REDNESS, facial rash, facial rash, facial rash, facial rash HPI HPI Unilateral primary osteoarthritis, right knee: Details: Patient is a 49 years old female with prior history of arthritis, lupus, recurrent falls, Charcot foot, DM, rheumatoid arthritis, peripheral artery disease, on chronic prednisone and Eliquis, CVA (>10 years ago), anxiety and depression, recurrent cellulitis of the lower extremity, h/o right foot surgery at [facility], right toe osteomyelitis, chronic neck and back pain with advanced degenerative disc disease and dextroscoliosis, osteopenia of lumbar spine, grade 2 anterior listhesis of C3 over C4, presents today for initial evaluation of right knee pain, neck and back pain. Patient arrived in wheelchair and is accompanied by her [employer] staff. Patient reports progressively worsening neck and low back pain for over a year. She reports symptoms of myelopathy or cervical radiculopathy with significant grade 2 listhesis of C3-C4. Neck pain is worse with extension than flexion with worsening of reversal of cervical lordosis. She reports significant neck pain with muscle spasms and stiffness that radiates into her shoulders and shoudler blades, numbness and tingling in her hands, difficulty holding objects, balance issues and difficulty walking. Back pain is localized to lower spine, axial and discogenic in nature with intermittent radicular symptoms. Patient also reports right knee pain and has previously received cortisone injection and flluid aspiration at [facility] by Dr. Ramsey. Patient notes aspirated fluid was milky and cloudy but negative for infection. Patient bilateral lower extremity nonpitting edema with right lower extremity calf tenderness. She is scheduled for US of BLE tomorrow per Vascular services. The pain is constant, and is worse in the morning and middle of the night time. She states the pain is interfering with sleep, activities of daily living, mood, quality of life, and she cannot function normally. Denies previous spine injections or procedures. Denies any fever or chills, abdominal or groin pain, bladder or bowel dysfunction, or saddle anesthesia. Reports weakness in hands and feet. Location: Right knee, neck and back pain Duration: Chronic pain for many years, worsening for past one year Characteristics of symptom or complaint: Aching, stabbing, sharp, tingling, numbness, throbbing, shooting, tiring Aggravating or associated factors: Walking, standing, bending, lifting, movements, cold, stress, falls Relieving factors: taking the fluid out of the knee, rest, medications, injections, heat Treatment: PT, cortisone injections, right knee Ram's cyst aspiration [facility], [facility] Medical History Depression Anxiety Kidney disease Headache Swelling Arthritis Hx of blood clots Sinusitis Asthma Stasis dermatitis Bilateral lower leg cellulitis Cellulitis COPD (chronic obstructive pulmonary disease) Lung density on x-ray Smoker COPD (chronic obstructive pulmonary disease) with acute bronchitis Bilateral pneumonia Tobacco abuse C. difficile colitis Sepsis Community acquired pneumonia Bilateral pneumonia Open wound of right elbow Respiratory failure with hypoxia Pneumonia due to COVID-19 virus Acute respiratory distress syndrome (ARDS) due to COVID-19 virus Acute exacerbation of chronic obstructive airways disease Acute hypoxemic respiratory failure due to COVID-19 Ulcer of lower extremity Sepsis with acute hypoxic respiratory failure without septic shock Encounter for testing for latent tuberculosis infection Falling Charcot's joint of foot Cellulitis Redness and swelling of lower leg C. 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 Mother Lung cancer Rheumatoid arthritis Social History Household Members: Children Household Members Other:: My twin sons Housing: House Do you presently have visiting nurse or other home services: Yes Alcohol intake: former Comment: pt asleep Patient Tobacco Use Status: Current everyday Tobacco user Tobacco use type: Cigarette Cigarette Packs Per Day: 1 Cigarettes Per Day: 20.0 Years Smoked: 30 Second Hand Smoke Exposure: No Substance Use Type: Marijuana Advance Directives Date on File: 11/26/21 service: No Current occupational status: unemployed and disabled Current occupation: right hand dominant Cognitive needs: No Hearing needs: No Vision needs: Yes Review of Systems Const All systems reviewed & are unremarkable except as noted in HPI and below Physical Exam Vital Signs: Last Vital Signs Pulse 98 08/17/24 15:08 BP 117/62 08/17/24 15:08 Pulse Ox 96 08/17/24 15:08 Oxygen Delivery Method Room Air 08/17/24 15:08 BMI result Body Mass Index 24.6 General: Appears afebrile. Alert and oriented. Mood and affect appropriate. Follows and participates in conversation appropriately. Respiratory effort is unlabored. No cough. Mild clear nasal discharge. Able to transition from sit to stand with slow, antalgic gait with assistance of [employer] staff. Utilizes wheelchair for transfers and mobility. Reports unsteady gait and clumsiness due to neck/back pain and Charcot feet. Neck Other: Limited neck range of motion. Endorses tenderness in the upper thoracic and cervical spine to palpation. No tenderness to palpation in the lower thoracic/lumbar spine. 4/5 strength in bilateral biceps and triceps. Neck: Yes normal visual inspection, Yes no lymphadenopathy, Yes supple, No anterior neck swelling, Yes no JVD, No prominent supraclavicular fat pad and Yes prominent dorsocervical fat pad General: Yes no CVA tenderness Back/Spine/Pelvis Other: Unable to perform lumbar ROM due to pain. Painful facet loading bilaterally. Unable to stand >3-5 minutes or walk >2-3 minutes due to pain. Back: no CVA tenderness Cervical Spine: No collar present, loss of normal cervical lordosis, cervical muscular tenderness, pain with cervical ROM, No Cervical spine scars present, Cervical spine tenderness and step off deformity Thoracic/Lumbar Spine: thoracic and lumbar spine normal to inspection, No Thoracic/lumbar spine scar(s), Lasegue's sign negative, straight leg raise negative bilaterally, kyphosis, pain with thoraco-lumbar ROM, paraspinal muscle tenderness, thoraco-lumbar ROM limited, Thoracic/lumbar scoliosis, thoracic spinal tenderness (lower thoracic) and lumbar spinal tenderness (L3-S1) Pelvis: buttock tenderness bilaterally Sacroiliac joints: bilaterally tender to palpation Results Reviewed Results Reviewed: XR KNEE, RIGHT 09/22/21 CLINICAL INFORMATION: Pain after fall one month ago. COMPARISON: CT right knee dated from 09/19/2021. FINDINGS: No acute fractures or malalignment. Mild joint space narrowing, subchondral sclerosis and osteophytes in the medial compartment reflecting degenerative osteoarthritis. No erosions or chondrocalcinosis. Small joint effusion. Diffuse soft tissue edema. IMPRESSION: No acute fractures or malalignment. Small joint effusion. Diffuse soft tissue edema of uncertain etiology, correlate clinically. XR LUMBOSACRAL SPINE 11/25/23 CLINICAL INFORMATION: Dorsalgia COMPARISON: 05/18/2020 FINDINGS: There is straightening of lumbar lordosis and worsening cough and dextroscoliosis in the lower thoracic-upper lumbar spine. Sacroiliac joints unremarkable. Pedicles are preserved there is narrowing of L4-L5 and L5-S1 intervertebral disc space. IMPRESSION: Degenerative changes in lower lumbar spine. Worsening cough dextroscoliosis. XR CERVICAL SPINE 11/25/23 CLINICAL INFORMATION: Unspecified dorsalgia COMPARISON: MRI from 09/22/2021 FINDINGS: There is worsening of reversal to normal cervical lordosis with grade 2 anterior listhesis of C3 over C4, measured approximately 8 mm. There is loss of disc spaces at the level of C3-C4, C4-C5, C5-C6 and C6-C7. There is uncovertebral osteophytosis at the level of C6 - C5. Neuroforamina are not encroached but could be narrowed at the level of C5-C6 bilaterally. Soft tissues unremarkable. IMPRESSION: Multilevel degenerative changes with grade 2 anterolisthesis of C3 over C4 and worsening of reversal of cervical lordosis. Possible neural foraminal narrowing bilaterally at the level of C5-C6. XR THORACIC SPINE 11/25/23 CLINICAL INFORMATION: Dorsalgia COMPARISON: 03/03/2015 FINDINGS: There is mild dextroscoliosis of thoracic spine. Vertebral bodies are well aligned and intervertebral discs are preserved. Pedicles are intact soft tissues unremarkable there is no compression deformities seen. IMPRESSION: Mild dextroscoliosis. XR LUMBOSACRAL SPINE 11/25/23 CLINICAL INFORMATION: Dorsalgia COMPARISON: 05/18/2020 FINDINGS: There is straightening of lumbar lordosis and worsening cough and dextroscoliosis in the lower thoracic-upper lumbar spine. Sacroiliac joints unremarkable. Pedicles are preserved there is narrowing of L4-L5 and L5-S1 intervertebral disc space. IMPRESSION: Degenerative changes in lower lumbar spine. Worsening cough dextroscoliosis Assessment & Plan Assessment & Plan (1) Osteoarthritis of right knee: Code(s): M17.11 - Unilateral primary osteoarthritis, right knee Category: Medical (2) Chronic back pain: Code(s): M54.9 - Dorsalgia, unspecified; G89.29 - Other chronic pain Category: Medical Qualifiers: Back pain laterality: midline Back pain location: thoracic back pain Qualified Code(s): M54.6 - Pain in thoracic spine; G89.29 - Other chronic pain (3) Right knee pain: Code(s): M25.561 - Pain in right knee Category: Medical (4) Lumbar degenerative disc disease: Code(s): M51.36 - Other intervertebral disc degeneration, lumbar region Category: Medical (5) Degenerative cervical disc: Code(s): M50.30 - Other cervical disc degeneration, unspecified cervical region Category: Medical (6) Spondylolisthesis, cervical region: Code(s): M43.12 - Spondylolisthesis, cervical region Category: Medical (7) Unsteady gait: Code(s): R26.81 - Unsteadiness on feet Category: Medical (8) Dextroscoliosis of thoracolumbar spine: Code(s): M41.85 - Other forms of scoliosis, thoracolumbar region Category: Medical (9) Cervical spondylosis with myelopathy: Code(s): M47.12 - Other spondylosis with myelopathy, cervical region Category: Medical Plan MRI of the lumbar and cervical pine to assess for neural integrity and compression and follow up on recent xray findings, significant for Multilevel degenerative changes with grade 2 anterolisthesis of C3 over C4 and worsening of reversal of cervical lordosis. Neurosurgical evaluation for disabling neck pain with significant degenerative disc changes, grade 2 anterolisthesis, arthirits and worsening numbness, tingling and weakness in upper and lower extremities. Patient is aware to call if pain worsens or if she develops any red flag symptoms to seek emergency care. Patient will follow up with Orthopedic providers for right knee pain and potential fluid aspiration. Xray ordered. All questions and concerns have been answered and patient agreed with the treatment plan. Follow-up for MRI results and sooner as needed. Orders: Orders MR cervical spine wo con Today M43.12 - Spondylolisthesis, cervical region, M47.12 - Other spondylosis with myelopathy, cervical region, M50.30 - Other cervical disc degeneration, unspecified cervical region, R26.81 - Unsteadiness on feet MR lumbar spine wo con Today M41.85 - Other forms of scoliosis, thoracolumbar region, M51.36 - Other intervertebral disc degeneration, lumbar region, R26.81 - Unsteadiness on feet XR knee RT 3V Today M17.11 - Unilateral primary osteoarthritis, right knee, M25.561 - Pain in right knee Referrals Neuro Spine Referral M32.9 - Systemic lupus erythematosus, unspecified, M43.12 - Spondylolisthesis, cervical region, M50.30 - Other cervical disc degeneration, unspecified cervical region, R26.81 - Unsteadiness on feet Medications: New lidocaine 5% 2 patches topical DAILY 30 days 60 ea 3RF pain G89.29 - Other chronic pain, M17.11 - Unilateral primary osteoarthritis, right knee, M25.561 - Pain in right knee, M51.36 - Other intervertebral disc degeneration, lumbar region, M54.6 - Pain in thoracic spine Coding Level of Care Code New Pt Level 4 (77780) Complex EM visit Add On G2211 Diagnoses Osteoarthritis of right knee M17.11 Chronic midline thoracic back pain M54.6; G89.29 Back pain laterality: midline Back pain location: thoracic back pain Right knee pain M25.561 Lumbar degenerative disc disease M51.36 Degenerative cervical disc M50.30 Spondylolisthesis, cervical region M43.12 Unsteady gait R26.81 Dextroscoliosis of thoracolumbar spine M41.85 Cervical spondylosis with myelopathy M47.12
[2024-08-17 15:08] VITALS: BP 117/62; PULSE 98; O2SAT 96; BMI 24.6
== END 2024-08-17 15:57 | disposition home or self-care (01) ==
PROVIDERS: PCP Nurse Practitioner Family; Visit Provider Nurse Practitioner Family
DX: M17.11 Unilateral primary osteoarthritis, right knee (principal); M54.6 Pain in thoracic spine; G89.29 Other chronic pain; M25.561 Pain in right knee; M51.36 Other intervertebral disc degeneration, lumbar region; M50.30 Other cervical disc degeneration, unspecified cervical region; M43.12 Spondylolisthesis, cervical region; R26.81 Unsteadiness on feet; M41.85 Other forms of scoliosis, thoracolumbar region; M47.12 Other spondylosis with myelopathy, cervical region
CPT/HCPCS: 99204; G2211

== ENCOUNTER → 2024-08-17 15:05 | Outpatient (BNVA) | payer OTHER, SELFPAY | PROVIDERS: PCP Nurse Practitioner Family; Visit Provider Nurse Practitioner Family | DX: M17.11 Unilateral primary osteoarthritis, right knee (principal); G89.29 Other chronic pain; M51.36 Other intervertebral disc degeneration, lumbar region; M50.30 Other cervical disc degeneration, unspecified cervical region; M43.12 Spondylolisthesis, cervical region; R26.81 Unsteadiness on feet; M41.85 Other forms of scoliosis, thoracolumbar region; M47.12 Other spondylosis with myelopathy, cervical region; E11.610 Type 2 diabetes mellitus with diabetic neuropathic arthropathy; M06.9 Rheumatoid arthritis, unspecified | CPT/HCPCS: 99202 ==

== ENCOUNTER 2024-08-19 16:08 | Outpatient (AMB) | payer OTHER, SELFPAY ==
[2024-08-19 16:14] VITALS: BP 98/68; PULSE 100; O2SAT 94; BMI 23.8
--- NOTE | 2024-08-19 16:14 | MHC.OFFVIS ---
Vital Signs 08/19/24 16:14 Height 5 ft 1 in Weight 126 lb BMI 23.8 BP 98/68 Blood Pressure Location Lt brachial Position Sitting Pulse 100 Pulse Source Pulse Oximeter Pulse Oximetry (%) 94 Oxygen Delivery Method Room Air Intake Visit Reasons: SLE/CM Intake Note: Patient last seen by Doctor Sylvia Mora on 01/15/24. Presents today for SLE and labs/XR test results. Allergies clarithromycin [CLARITHROMYCIN] Allergy (Intermediate, Verified 08/19/24 16:16) FACIAL SWELLING/REDNESS, facial rash, facial rash, facial rash, facial rash Medication List - Last Reconciled 08/19/24 by Sylvia Mora MD acetaminophen (Tylenol) 650 mg PO Q6H PRN albuterol sulfate 90 mcg/actuation 2 puffs inhalation Q6H PRN alendronate 70 mg PO QWEEK apixaban (Eliquis) 5 mg PO BID bupropion HCl SR 100 mg PO BID iqdzgrfvnb-shrhvxafyzfeu-pkow 50-325-40 mg 1 tab PO DAILY PRN cholecalciferol (vitamin D3) 50 mcg PO DAILY famotidine 1 tab PO DAILY ferrous sulfate (FeroSul) 1 tab PO DAILY fluoxetine 2 caps PO DAILY fluticasone propion-salmeterol 230-21 mcg/actuation (Advair HFA) 2 puffs inhalation BID 30 days folic acid 1 mg PO DAILY hydroxychloroquine 300 mg (1.5 x 200 mg) PO BID inhalational spacing device (Aerovent Plus spacer) As directed levothyroxine 150 mcg PO DAILY lidocaine 5% 2 patches topical DAILY 30 days loratadine 10 mg PO DAILY lorazepam 1 mg PO DAILY PRN multivitamin (One Daily Multivitamin tablet) 1 tab PO DAILY nebulizer and compressor (Vios Aerosol Delivery System) As directed nortriptyline 75 mg PO BEDTIME oxycodone 15 mg PO TID PRN pravastatin 40 mg PO BEDTIME prednisone 2.5 mg PO DAILY sulfasalazine 1.5 grams (3 x 500 mg) PO BID tiotropium bromide 2.5 mcg/actuation (Spiriva Respimat) 1 puff inhalation DAILY HPI Comments Details: 49-year-old female with SLE/RA overlap presents for follow-up. Patient states that she presented to the hospital about 2 months ago for right leg cellulitis as well as COPD exacerbation. She tried lowering her prednisone 2.5 mg but could not do it. She continues to require 5 mg daily. She remains on hydroxychloroquine 20 mg daily and sulfasalazine. She does not take sulfasalazine as prescribed. She only takes 1.5 g daily. Patient continues to have diffuse pains, including neck pain, bilateral hand pain, wrist pain, she continues to have significant right knee pain and deformity, pain in both feet. She was told by knee surgeon that she would be too high of a risk for knee surgery. She remains on prednisone 5 mg daily, sulfasalazine 1000 mg in the morning and 500 mg at night. Hydroxychloroquine 200 mg daily. She states that she was evaluated by dyslexia teacher my eye doctor last month & cleared to continue hydroxychloroquine. Initial history: This is a 47-year-old female with a past medical history of SLE who presents as a new patient. 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 Patient had a stillbirth around 2000. Around that time She was diagnosed with immune complex mediated glomerulonephritis. This was initially attributed to thyroid disease. Over the next 2-3 years she was diagnosed with SLE. She also had multiple strokes around 1999 for which were treated with Coumadin. Patient is currently on Eliquis however. 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 Over the years patient has been on multiple medications including prednisone, hydroxychloroquine, methotrexate. She was on methotrexate for some time but she developed recurrent cellulitis and methotrexate was discontinued. She was started on sulfasalazine 1 tab twice daily by Dr. Flores over the last 2 years. Continues to take hydroxychloroquine Back in February of 2023 patient had surgery for right foot Charcot's. Postop she had pneumonia and was on antibiotics. This was the last time she had been on antibiotics per patient. Today patient's main complaint is right knee pain and swelling. She has an appointment with Orthopedics soon ON LICENSE OF [facility] Medical History Depression Anxiety Kidney disease Headache Swelling Arthritis Hx of blood clots Sinusitis Asthma Stasis dermatitis Bilateral lower leg cellulitis Cellulitis COPD (chronic obstructive pulmonary disease) Lung density on x-ray Smoker COPD (chronic obstructive pulmonary disease) with acute bronchitis Bilateral pneumonia Tobacco abuse C. difficile colitis Sepsis Community acquired pneumonia Bilateral pneumonia Open wound of right elbow Respiratory failure with hypoxia Pneumonia due to COVID-19 virus Acute respiratory distress syndrome (ARDS) due to COVID-19 virus Acute exacerbation of chronic obstructive airways disease Acute hypoxemic respiratory failure due to COVID-19 Ulcer of lower extremity Sepsis with acute hypoxic respiratory failure without septic shock Encounter for testing for latent tuberculosis infection Falling Charcot's joint of foot Cellulitis Redness and swelling of lower leg C. 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 Mother Lung cancer Rheumatoid arthritis Social History Household Members: Children Household Members Other:: My twin sons Housing: House Do you presently have visiting nurse or other home services: Yes Alcohol intake: former Comment: pt asleep Patient Tobacco Use Status: Current everyday Tobacco user Tobacco use type: Cigarette Cigarette Packs Per Day: 1 Cigarettes Per Day: 20.0 Years Smoked: 30 Second Hand Smoke Exposure: No Substance Use Type: Marijuana Advance Directives Date on File: 11/26/21 service: No Current occupational status: unemployed and disabled Current occupation: right hand dominant Cognitive needs: No Hearing needs: No Vision needs: Yes Review of Systems Const Reports fatigue and Reports weakness ENT Reports neck pain Musc Reports back pain, Reports arthralgias, Reports joint swelling, Reports limited range of motion, Reports neck pain and Reports stiffness Skin/Breast Reports alopecia Neuro Reports weakness Endo Reports fatigue Physical Exam Vital Signs: Last Vital Signs Pulse 100 08/19/24 16:14 BP 98/68 08/19/24 16:14 Pulse Ox 94 08/19/24 16:14 Oxygen Delivery Method Room Air 08/19/24 16:14 BMI result Body Mass Index 23.8 Const General: cooperative, healthy appearing and comfortable Nutritional Appearance: malnourished Orientation/consciousness: patient oriented x3 Limitations: ambulation with cane HEENT Head: Yes normocephalic and Yes atraumatic Mouth: moist mucous membranes Resp Effort & Inspection: normal respiratory effort and able to speak in complete sentences Auscultation: rhonchi and wheezes Cardio Rate: regular rate Back/Spine/Pelvis Other: Significant neck kyphosis Skin Other: Mild hypopigmentation around her nose and cheek area Neuro General: patient oriented x3 Extrem Other: Reddish discoloration of fingers that blanches with pressure Fingers are warm today. Normal nailfold capillaroscopy Chronic deformities of both feet Right knee deformity, and significant valgus, warmth, swelling and tenderness Bilateral onychomycosis of feet Assessment & Plan Assessment & Plan (1) Lupus: Comment: dx around 2003 (immune complex mediated Gomerulonephritis, membranous glomerulonephritis, inflammatory arthritis, +APLA syndrome, ++DSdna, low C3, low C4, +++ ACL IgM, +++ B2GP IgM) HCQ + prednisone throughout MTX DC due to recurrent cellulitis Sulfasalazine started around 2021 Code(s): M32.9 - Systemic lupus erythematosus, unspecified Category: Medical Plan: This is a 48-year-old female with SLE who presents for follow-up. Patient has long history of SLE manifested by inflammatory arthritis, positive dsDNA, antiphospholipid antibody syndrome, immune complex mediated glomerulonephritis, membranous glomerulonephritis) Patient has had multiple infectious comorbidities. She has history of leg wounds. Currently the wounds are healed. 07/2023 she was admitted with pneumonia and treated with antibiotics. 10/2023 she was admitted with pneumonia and right 4th toe osteomyelitis and received 6 weeks of IV antibiotics, she was admitted to the hospital again 05/2024 for cellulitis and COPD exacerbation requiring antibiotics. She continues to have active synovitis and elevated dsDNA and high inflammatory markers. Continues to have active SLE however I cannot use strong immune suppression given her history of recurrent infections. We had a long discussion about the complexity of her disease. One factor that likely is contributing to her recurrent infections is her chronic prednisone use. We tried to taper it however patient could not tolerate being on lower then 5 mg daily. 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 Patient also needs to be on some antiresorptive agent given her long-term steroid use. Discussed risks and benefits of alendronate. Patient agreed to proceed. Start alendronate 70 mg weekly Start vitamin-D supplementation (3) Recurrent infections: Code(s): B99.9 - Unspecified infectious disease Category: Medical Plan: Given patient's recurrent infections, history of C diff and chronic tinea pedis and onychomycosis I think she should be evaluated by Infectious Disease ? Long-term antibiotic use to prevent recurrent infections, also her history of C diff. ? Need for antifungal treatment of her tinea pedis and onychomycosis Plan I spent 47 minutes reviewing patient's chart, evaluating patient, ordering diagnostic workup, counseling patient & her son and documenting in the chart Orders: Orders Complement C4 3 Months M32.9 - Systemic lupus erythematosus, unspecified Erythrocyte Sedimentation Rate 3 Months M32.9 - Systemic lupus erythematosus, unspecified Protein Creatinine Ratio, Ur 3 Months M32.9 - Systemic lupus erythematosus, unspecified Sjogren's Antibodies 3 Months M32.9 - Systemic lupus erythematosus, unspecified Comprehensive Met. Panel 3 Months M32.9 - Systemic lupus erythematosus, unspecified Vitamin D 25-OH (D2 and D3) 3 Months E55.9 - Vitamin D deficiency, unspecified Anti DNA DS Antibody 3 Months M32.9 - Systemic lupus erythematosus, unspecified Complement C3 3 Months M32.9 - Systemic lupus erythematosus, unspecified C Reactive Protein 3 Months M32.9 - Systemic lupus erythematosus, unspecified DNA Double Stranded-Crithidia 3 Months M32.9 - Systemic lupus erythematosus, unspecified UA w Microscopic 3 Months M32.9 - Systemic lupus erythematosus, unspecified Complete Blood Count Auto Diff 3 Months M32.9 - Systemic lupus erythematosus, unspecified Referrals Infectious Disease Referral B99.9 - Unspecified infectious disease Medications: New alendronate Take 1 tab once weekly, 1st thing in the morning, on an empty stomach, with a large glass of water (at least 6 oz) and stay upright for 30 minutes 70 mg PO QWEEK 12 tabs 1RF cholecalciferol (vitamin D3) 50 mcg PO DAILY 90 caps 1RF Discontinued prednisone starting tomorrow Discontinued Reason: Patient no longer taking 40 mg (2 x 20 mg) PO DAILY 2 tabs 0RF Coding Level of Care Code Est Pt Level 5 (00307) Complex EM visit Add On G2211 Diagnoses Lupus M32.9 FPC systemic steroid user Z79.52 Recurrent infections B99.9
== END 2024-08-19 16:53 | disposition home or self-care (01) ==
PROVIDERS: PCP Nurse Practitioner Family; Visit Provider Student in an Organized Health Care Education/Training Program
DX: M32.9 Systemic lupus erythematosus, unspecified (principal); Z79.52 Long term (current) use of systemic steroids; B99.9 Unspecified infectious disease
CPT/HCPCS: 99215; G2211

== ENCOUNTER → 2024-08-19 16:08 | Outpatient (BNVA) | payer OTHER, SELFPAY | PROVIDERS: PCP Nurse Practitioner Family; Visit Provider Student in an Organized Health Care Education/Training Program | DX: M32.9 Systemic lupus erythematosus, unspecified (principal); B99.9 Unspecified infectious disease; Z79.52 Long term (current) use of systemic steroids | CPT/HCPCS: 99212 ==

== ENCOUNTER 2024-09-21 12:49 | Outpatient (REF) | payer OTHER, SELFPAY | END 2024-09-21 12:50 | disposition home or self-care (01) | LOC: HO.HOSX 12:49 | PROVIDERS: Visit Provider Physician Assistant | DX: Z13.89 Encounter for screening for other disorder (principal) ==

== ENCOUNTER 2024-10-08 16:43 | Outpatient (REF) | payer OTHER, SELFPAY ==
[2024-10-08 17:06] LABS: MANUAL DIFF FLAG NO
[2024-10-08 17:39] LABS: Appearance Urine Clear; Color Urine Dark Yellow; Glucose Urine UA Negative (Negative); Leukocyte Esterase Urine Moderate (2+) (Negative); Nitrite Urine Negative (Negative); PH 5.5 (5.0-9.0); UMIC TRIGGER UA YES; Urine Blood Negative (Negative); Urine Ketones Negative (Negative); Urine Protein Negative (Neg-Trace)
[2024-10-08 17:44] LABS: Bacteria Urine None Seen (None Seen); Hyaline Casts Urine 0-2 /LPF (0-2); RBC Urine 0-2 /HPF (0-2); Squamous Epithelial Cell Urine 0-2 /HPF (0-2); WBC Urine 21-50 /HPF (0-5)
[2024-10-08 17:57] LABS: Basophils Absolute Auto 0.1 X10*3/uL (0.0-0.2); Basophils Percent Auto 0.5 % (0-2); Eosinophils Absolute Auto 0.3 X10*3/uL (0.0-0.4); Eosinophils Percent Auto 1.6 % (0-4); Hematocrit 39.3 % (37.0-47.0); Hemoglobin 12.1 g/dl (12.0-16.0); Imm Gran Pct Auto 0.6 % (0.0-0.4); Lymphocytes Absolute Auto 1.6 X10*3/uL (1.2-4.9); Lymphocytes Percent Auto 9.4 % (20-40); Mean Corpuscular HGB Conc 30.8 g/dl (31.0-35.0); Mean Corpuscular Hemoglobin 25.3 pg (27.0-33.0); Mean Platelet Volume 8.5 fL (9.4-12.3); Monocytes Absolute Auto 1.2 X10*3/uL (0.1-1.2); Monocytes Percent Auto 6.9 % (2-11); Neutrophils Absolute Auto 13.6 x10*3/uL (2.0-8.3); Platelet Count 127 X10*3/uL (160-400); Red Blood Count 4.79 X10*6/uL (4.20-5.50); Red Cell Distribution Width 16.2 % (11.0-16.0); White Blood Count 16.8 X10*3/uL (4.8-10.8)
[2024-10-08 18:38] LABS: Creatinine Urine 86.45 mg/dL; Total Protein Urine Random 9 mg/dL (<12)
[2024-10-08 18:41] LABS: Alanine Aminotransferase 8 U/L (0-31); Albumin Level 1.7 g/dL (3.5-5.0); Alkaline Phosphatase 127 U/L (39-117); Anion Gap 8 (12-20); Aspartate Amino Transferase 23 U/L (5-31); Bilirubin Direct < 0.2 mg/dL (0.0-0.5); Bilirubin Total 0.1 mg/dL (0.0-1.0); Blood Urea Nitrogen 14 mg/dL (9-16); Carbon Dioxide 29 mmol/L (22-29); Chloride 107 mmol/L (96-108); Estimated Glomerular Filt Rate > 60; Iron 32 mcg/dL (30-160); Percent Iron Saturation 33 % (15-50); Potassium 4.4 mmol/L (3.3-5.1); Sodium 140 mmol/L (135-145); Total Iron Binding Capacity 97 mcg/dL (228-428); Total Protein 3.6 g/dL (6.5-8.0); Unsaturated Iron Binding 65 ug/dL
[2024-10-08 18:54] LABS: Ferritin 183 ng/mL (10-250); TSH reflex Free T4 7.68 uIU/mL (0.32-4.0)
[2024-10-08 19:27] LABS: Free T4 (Free Thyroxine) 2.48 ng/dL (0.71-1.85)
== END 2024-10-08 16:44 | disposition home or self-care (01) ==
LOC: HO.LAB 16:43
PROVIDERS: Student in an Organized Health Care Education/Training Program; PCP Nurse Practitioner Family; Visit Provider Internal Medicine Nephrology
DX: Z00.00 Encounter for general adult medical examination without abnormal findings (principal); M32.9 Systemic lupus erythematosus, unspecified; E03.9 Hypothyroidism, unspecified; D50.9 Iron deficiency anemia, unspecified
CPT/HCPCS: 36415; 80051; 80076; 81001; 82565; 82570; 82728; 83540; 84156; 84439; 84443; 84520; 85025

== ENCOUNTER 2024-10-21 02:27 | Inpatient (IN) | payer OTHER, SELFPAY ==
--- NOTE | ~2024-10-21 | US_ITS ---
EXAMINATION: US TRIPLEX LOWER EXTREMITY, RIGHT CLINICAL INFORMATION: Swelling, history of embolic stroke 10 years ago, patient on Eliquis, history of foot surgery. COMPARISON: 05/22/2024. TECHNIQUE: Color-flow triplex imaging with spectral analysis and compression Doppler were performed on the right lower extremity. FINDINGS: Respiratory variation, normal compression and augmented flow are noted throughout the right lower extremity. The visualized common femoral vein, superficial femoral vein, profunda femoral vein, popliteal vein and midcalf peroneal and posterior tibial venous segments show no evidence of deep venous thrombosis. A 2.8 x 1.7 x 1.1 cm complex fluid collection with possible thick septations in the right popliteal fossa. There are 2 right inguinal lymph nodes measuring respectively 0.7 cm and 1.5 cm in transverse dimension. US/US venous duplex LE RT IMPRESSION: 1. No evidence of deep venous thrombosis involving the right lower extremity. 2. A 2.8 cm complex fluid collection with possible thick septations in the right popliteal fossa. 3. There are 2 right inguinal lymph nodes measuring respectively 0.7 cm and 1.5 cm in transverse dimension. This study was presented today October 21, 2024 for interpretation. Stat results provided at this time as requested by referring provider. Electronically signed by: Jennifer Duron MD 10/21/2024 06:53 AM [facility]
--- NOTE | ~2024-10-21 | XR_ITS ---
EXAMINATION: XR CHEST CLINICAL INFORMATION: sob COMPARISON: June 13, 2024. Correlation made with CT performed April 24, 2024 TECHNIQUE: Frontal view of the chest was obtained. FINDINGS: The cardiomediastinal silhouette is stable. There is diffuse increased interstitial markings grossly similar to previous and similar to prior CT findings. There is no focal lung consolidation or pleural effusions. Old bilateral rib fractures are seen. The soft tissues are unremarkable. XR/XR chest 1V IMPRESSION: Diffuse increased interstitial markings grossly similar to previous CT findings. No focal lung consolidation or pleural effusions. Electronically signed by: Pato Esparza MD 10/21/2024 04:09 AM [facility]
[2024-10-21 02:34] VITALS: BP 106/64; PULSE 99; RESP 18; TEMP 37.2; O2SAT 98; BMI 24.6
[2024-10-21 03:01] LABS: Basophils Absolute Auto 0.1 X10*3/uL (0.0-0.2); Basophils Percent Auto 0.4 % (0-2); Eosinophils Absolute Auto 0.5 X10*3/uL (0.0-0.4); Eosinophils Percent Auto 1.7 % (0-4); Hematocrit 38.2 % (37.0-47.0); Hemoglobin 12.4 g/dl (12.0-16.0); Imm Gran Pct Auto 0.7 % (0.0-0.4); Lymphocytes Absolute Auto 3.1 X10*3/uL (1.2-4.9); Lymphocytes Percent Auto 11.7 % (20-40); MANUAL DIFF FLAG SCAN; Mean Corpuscular HGB Conc 32.5 g/dl (31.0-35.0); Mean Corpuscular Volume 80.1 fL (80.0-98.0); Mean Platelet Volume 8.7 fL (9.4-12.3); Monocytes Absolute Auto 2.1 X10*3/uL (0.1-1.2); Monocytes Percent Auto 7.7 % (2-11); Neutrophils Absolute Auto 20.8 x10*3/uL (2.0-8.3); Neutrophils Percent Auto 77.8 % (45-73); Platelet Count 200 X10*3/uL (160-400); Red Blood Count 4.77 X10*6/uL (4.20-5.50); Red Cell Distribution Width 15.4 % (11.0-16.0); SCAN SMEAR FLAG 1; White Blood Count 26.7 X10*3/uL (4.8-10.8)
[2024-10-21 03:14] LABS: Alanine Aminotransferase 9 U/L (0-31); Albumin Level 1.3 g/dL (3.5-5.0); Alkaline Phosphatase 130 U/L (39-117); Anion Gap 11 (12-20); Aspartate Amino Transferase 26 U/L (5-31); Bilirubin Total 0.1 mg/dL (0.0-1.0); Blood Urea Nitrogen 13 mg/dL (9-16); Calcium 7.2 mg/dL (8.4-10.2); Carbon Dioxide 25 mmol/L (22-29); Chloride 107 mmol/L (96-108); Creatinine Clr Calc Pharmacy 81.9; Estimated Glomerular Filt Rate > 60; Glucose Random 106 mg/dL (60-115); Potassium 3.9 mmol/L (3.3-5.1); Sodium 139 mmol/L (135-145)
--- NOTE | 2024-10-21 03:17 | ED_ITS ---
HPI - General Adult General Chief complaint: General Medical Stated complaint: swelling lower extremities Time Seen by Provider: 10/21/24 03:14 Source: patient Mode of arrival: ambulatory Limitations: no limitations History of Present Illness ED Provider: HPI narrative: Patient's history of COPD, lupus, hypothyroidism, CVA and peripheral arterial disease on Eliquis and statin, fibromyalgia, hypothyroidism with chronic leg edema comes here for increased swelling of the lower extremity for last 1 month got worse in last few days with redness of the right leg does have some chills but no fever also patient has been coughing for last few days saturating 98% at room air afebrile on arrival Related Data Home Medications ?Medication ?Instructions ?Recorded ?Confirmed pravastatin 40 mg tablet 40 mg PO BEDTIME 08/15/20 07/21/24 albuterol sulfate 90 mcg/actuation 2 puff inhalation Q6H PRN 08/31/20 07/21/24 aerosol inhaler Shortness Of Breath Or Wheezing bupropion HCl 100 mg tablet,12 hr 100 mg PO BID 08/31/20 07/21/24 sustained-release nortriptyline 75 mg capsule 75 mg PO BEDTIME 04/18/21 07/21/24 loratadine 10 mg tablet 10 mg PO DAILY allergies 10/21/21 07/21/24 nebulizer and compressor (Vios #1 ea 02/15/22 07/21/24 Aerosol Delivery System) famotidine 20 mg tablet 1 tab PO DAILY 05/24/22 07/21/24 uoyvhvhzrq-olikdihsblzkk-nhzcrqok 1 tab PO DAILY PRN headache 11/08/22 07/21/24 50 mg-325 mg-40 mg tablet ferrous sulfate 325 mg (65 mg 1 tab PO DAILY 11/08/22 07/21/24 iron) tablet (FeroSul) tiotropium bromide 2.5 1 puff inhalation DAILY 11/08/22 07/21/24 mcg/actuation mist for inhalation (Spiriva Respimat) fluoxetine 20 mg capsule 2 cap PO DAILY 12/27/22 07/21/24 apixaban 5 mg tablet (Eliquis) 5 mg PO BID 01/03/23 07/21/24 folic acid 1 mg tablet 1 mg PO DAILY 01/03/23 07/21/24 multivitamin (One Daily 1 tab PO DAILY 01/03/23 07/21/24 Multivitamin tablet) lorazepam 1 mg tablet 1 mg PO DAILY PRN anxiety 04/24/24 07/21/24 acetaminophen 325 mg tablet 650 mg PO Q6H PRN Pain 06/13/24 07/21/24 (Tylenol) oxycodone 15 mg tablet 15 mg PO TID PRN 07/21/24 07/21/24 levothyroxine 150 mcg tablet 150 mcg PO DAILY 08/17/24 Previous Rx's ?Medication ?Instructions ?Recorded fluticasone propionate 230 2 puff inhalation BID copd 30 days 06/04/24 mcg-salmeterol 21 mcg/actuation #12 grams HFA inhaler (Advair HFA) inhalational spacing device #10 ea 06/04/24 (Aerovent Plus spacer) prednisone 2.5 mg tablet 2.5 mg PO DAILY #30 tabs 07/06/24 sulfasalazine 500 mg tablet 1.5 g (3 x 500 mg) PO BID #180 tabs 08/06/24 hydroxychloroquine 200 mg tablet 300 mg (1.5 x 200 mg) PO BID #135 08/10/24 tabs lidocaine 5 % topical patch 2 patch topical DAILY pain 30 days 08/17/24 #60 ea alendronate 70 mg tablet 70 mg PO QWEEK #12 tabs 08/19/24 cholecalciferol (vitamin D3) 50 50 mcg PO DAILY #90 caps 08/19/24 mcg (2,000 unit) capsule Allergies Allergy/AdvReac Type Severity Reaction Status Date / Time clarithromycin Allergy Intermediate FACIAL Verified 10/21/24 02:38 [CLARITHROMYCIN] SWELLING/REDNESS, facial rash, facial rash, facial rash, facial rash Review of Systems 2 Review of Systems: Yes all other systems are reviewed and are negative [facility] Past Medical History Medical History (Updated 10/21/24 @ 07:06 by Devin Cox MD) Sepsis Depression Anxiety Kidney disease Headache Swelling Arthritis Hx of blood clots Sinusitis Asthma Stasis dermatitis Bilateral lower leg cellulitis Cellulitis COPD (chronic obstructive pulmonary disease) Lung density on x-ray Smoker COPD (chronic obstructive pulmonary disease) with acute bronchitis Bilateral pneumonia Tobacco abuse C. difficile colitis Community acquired pneumonia Bilateral pneumonia Open wound of right elbow Respiratory failure with hypoxia Pneumonia due to COVID-19 virus Acute respiratory distress syndrome (ARDS) due to COVID-19 virus Acute exacerbation of chronic obstructive airways disease Acute hypoxemic respiratory failure due to COVID-19 Ulcer of lower extremity Sepsis with acute hypoxic respiratory failure without septic shock Encounter for testing for latent tuberculosis infection Falling Charcot's joint of foot Cellulitis Redness and swelling of lower leg C. difficile colitis Secondary bacterial pneumonia Immunosuppression due to chronic steroid use Mixed connective tissue disease Cellulitis of right leg PAD (peripheral artery disease) Varicose veins of right lower extremity with inflammation Rheumatoid arthritis Cellulitis CVA (cerebral vascular accident) Proteinuria Fibromyalgia Hypothyroid Lupus Surgical History Status post incision and drainage History of breast lump/mass excision History of excision of mass History of partial hysterectomy History of cholecystectomy History of bunionectomy Family History Family History Father No problems noted. Mother Lung cancer Rheumatoid arthritis Social History Social History Household Members: Children Household Members Other:: My twin sons Housing: House Do you presently have visiting nurse or other home services: Yes Alcohol intake: former Comment: pt asleep Patient Tobacco Use Status: Current everyday Tobacco user Tobacco use type: Cigarette Cigarette Packs Per Day: 1 Cigarettes Per Day: 20.0 Years Smoked: 30 Second Hand Smoke Exposure: No Use of substances other than those prescribed or required for medical reasons: No Substance Use Type: Marijuana Advance Directives: Yes Advance Directives on File: Yes Advance Directives Date on File: 11/26/21 Do you have a plan to hurt others: No Plan service: No Current occupational status: unemployed and disabled Current occupation: right hand dominant Cognitive needs: No Hearing needs: No Vision needs: Yes Physical Exam ED Vital Signs: Vital Signs - 24 hr 10/21/24 02:34 10/21/24 03:48 Temperature 98.9 F 98.9 F Pulse Rate 99 101 H Respiratory Rate 18 18 Blood Pressure 106/64 117/63 Pulse Oximetry 98 94 Oxygen Delivery Method Room Air Room Air BMI result Body Mass Index 24.6 Appearance: Alert. Oriented X3. No acute distress. Eyes: Pallor++ ENT: Pharynx normal. Oral Mucosa moist Neck: Normal inspection. Neck supple. CVS: Normal heart rate and rhythm. Pulses normal. Respiratory: No respiratory distress. Equal air entry bilateral, no wheezing/rales/rhonchi Abdomen: Soft and nontender. Bowel sounds are present, no mass palpable, no CVA tenderness Skin: Skin warm and dry. Erythema of the right calf area Extremities: 3+ lower extremity edema. R calf tenderness++ bilateral bilateral knee swelling/effusion Neuro: Oriented X 3. No motor deficit. No sensory deficit.No cerebellar signs , cranial nerves II-XII intact Medications Administered Discontinued Medications Generic Name Dose Route Start Last Admin Trade Name Freq PRN Reason Stop Dose Admin Ceftriaxone Sodium 1 gm 10/21/24 03:27 10/21/24 04:07 Ceftriaxone Sodium 1 Gm Vial IVPUSH 10/21/24 03:28 1 gm ONCE ONE Administration Vancomycin HCl 1,000 mg/ 270 mls @ 270 mls/hr 10/21/24 03:27 10/21/24 05:24 Sodium Chloride IV 10/21/24 04:26 Infused ONCE ONE Infusion Medical Decision Making Medical Decision Making [facility] Narrative: Patient's significantly elevated WBC count with normal lactic acid level with lymphedema with cellulitis admit patient for IV antibiotics Differential Diagnosis Differential Diagnoses: The differential diagnosis associated with the presentation includes Admission/Observation Consideration of admission/observation: Escalation of care including admission/observation considered Consult Healthcare Provider Management of the patient was discussed with: Hospitalist Lab Data [facility] Lab Attestation statement: I reviewed the patient's lab results. 10/21/24 02:56 10/21/24 02:56 Labs: Lab Results 10/21/24 10/21/24 Range/Units 02:56 03:56 WBC 26.7 H (4.8-10.8) X10*3/uL RBC 4.77 (4.20-5.50) X10*6/uL Hgb 12.4 (12.0-16.0) g/dl Hct 38.2 (37.0-47.0) % MCV 80.1 (80.0-98.0) fL MCH 26.0 L (27.0-33.0) pg MCHC 32.5 (31.0-35.0) g/dl RDW 15.4 (11.0-16.0) % Plt Count 200 D (160-400) X10*3/uL MPV 8.7 L (9.4-12.3) fL Immature Gran % (Auto) 0.7 H (0.0-0.4) % Neut % (Auto) 77.8 H (45-73) % Lymph % (Auto) 11.7 L (20-40) % [place] % (Auto) 7.7 (2-11) % Eos % (Auto) 1.7 (0-4) % Baso % (Auto) 0.4 (0-2) % Lymph # (Auto) 3.1 (1.2-4.9) X10*3/uL [place] # (Auto) 2.1 H (0.1-1.2) X10*3/uL Eos # (Auto) 0.5 H (0.0-0.4) X10*3/uL Baso # (Auto) 0.1 (0.0-0.2) X10*3/uL Abs Immat Gran (auto) 0.20 H (0.00-0.03) X10*3/uL Absolute Neuts (auto) 20.8 H (2.0-8.3) x10*3/uL Absolute Nucleated RBC 0.000 (0.0-0.012) X10*3/uL Nucleated RBC % (auto) 0.0 (0.0-0.2) /100WBC Smear Tech's Comments VERIFIED Sodium 139 (135-145) mmol/L Potassium 3.9 (3.3-5.1) mmol/L Chloride 107 (96-108) mmol/L Carbon Dioxide 25 (22-29) mmol/L Anion Gap 11 L (12-20) BUN 13 (9-16) mg/dL Creatinine 0.70 (0.5-1.4) mg/dL Estim Creat Clear Calc 81.9 Estimated GFR > 60 Random Glucose 106 (60-115) mg/dL Lactic Acid 1.9 (0.5-2.0) mmol/L Calcium 7.2 L D (8.4-10.2) mg/dL Total Bilirubin 0.1 (0.0-1.0) mg/dL AST 26 (5-31) U/L ALT 9 (0-31) U/L Alkaline Phosphatase 130 H (39-117) U/L Total Protein 3.0 L (6.5-8.0) g/dL Albumin 1.3 L (3.5-5.0) g/dL Influenza Type A (PCR) NEGATIVE (Negative) Influenza Type B (PCR) NEGATIVE (Negative) RSV RNA Qual (PCR) NEGATIVE (Negative) SARS-CoV-2 RNA (RT-PCR) NEGATIVE (Negative) Radiology Impression Discussion of test interpretation with radiology: I have reviewed the radiologist's reading. Radiologist Impression: [address] [address] Ultrasound Report Signed Patient: Emiliana Rea MR#: [id number] : 1975 Acct:[id number] Age/Sex: 49 / F ADM Date: 10/21/24 Loc: .S3 386-[address]: Lewis Sanz MD Ordering Physician: Carol Will PA-C Date of Service: 10/21/24 Procedure(s): US venous duplex LE RT Accession Number(s): [id number] cc: Carol Will PA-C; Sylvia Hicks MANAGER WORK~ EXAMINATION: US TRIPLEX LOWER EXTREMITY, RIGHT CLINICAL INFORMATION: Swelling, history of embolic stroke 10 years ago, patient on Eliquis, history of foot surgery. COMPARISON: 05/22/2024. TECHNIQUE: Color-flow triplex imaging with spectral analysis and compression Doppler were performed on the right lower extremity. FINDINGS: Respiratory variation, normal compression and augmented flow are noted throughout the right lower extremity. The visualized common femoral vein, superficial femoral vein, profunda femoral vein, popliteal vein and midcalf peroneal and posterior tibial venous segments show no evidence of deep venous thrombosis. A 2.8 x 1.7 x 1.1 cm complex fluid collection with possible thick septations in the right popliteal fossa. There are 2 right inguinal lymph nodes measuring respectively 0.7 cm and 1.5 cm in transverse dimension. US/US venous duplex LE RT IMPRESSION: 1. No evidence of deep venous thrombosis involving the right lower extremity. 2. A 2.8 cm complex fluid collection with possible thick septations in the right popliteal fossa. 3. There are 2 right inguinal lymph nodes measuring respectively 0.7 cm and 1.5 cm in transverse dimension. This study was presented today October 21, 2024 for interpretation. Stat results provided at this time as requested by referring provider. Electronically signed by: Jennifer Duron MD 10/21/2024 06:53 AM EST Discharge Plan Discharge Clinical Impression: Cellulitis Patient Disposition: Admitted As Inpatient Interventions: Admission Worksheet (ED) Last Done: 10/21/24 06:54
[2024-10-21 03:18] LABS: SLIDE REVIEW VERIFIED
[2024-10-21 03:39] LABS: Influenza A PCR NEGATIVE (Negative); Influenza B PCR NEGATIVE (Negative); Resp Syncy Virus RNA Qual PCR NEGATIVE (Negative); SARS COV2 PCR INHOUSE NEGATIVE (Negative)
[2024-10-21 03:48] VITALS: BP 117/63; PULSE 101; RESP 18; TEMP 37.2; O2SAT 94
--- NOTE | 2024-10-21 04:03 | MHC.EDTECH ---
Patient brought into room from the waiting room pt placed on the cardiac exercise specialist,2nd set of cultures drawn and sent to lab.call dickens in reach
[2024-10-21] MEDS: cefTRIAXone sodium 1 GM VIAL IVPUSH (04:07)
[2024-10-21] MEDS: vancomycin HCL 1,000 MG in 0.9 % Sodium Chloride 250 ML 270 MG IV (04:13)
[2024-10-21 04:20] LABS: Lactic Acid 1.9 mmol/L (0.5-2.0)
--- NOTE | 2024-10-21 05:20 | P.HPHOSP_ITS ---
History of Present Illness Date of Service: 10/21/24 Attending physician on admission: Lewis Sanz Chief Complaint: RLE edema, cough Patient is a 49-year-old female with a past medical history significant for COPD, lupus, CVA (2013) and peripheral arterial disease on Eliquis and statin, fibromyalgia, hypothyroidism with chronic leg edema, who presented to the ED due to increased right lower extremity edema for the past month, worse over the past few days, cough and diarrhea. She reports chronic lower extremity edema with recurrent episodes of cellulitis usually in the right lower extremity. Is painful to touch. She also has swelling and erythema around the left eye and on the hands, this can be consistent with her lupus however not as significant in the past. She also describes a productive cough with yellow sputum, no fever but chills. She is also having some diarrhea which she reports feels similar to C diff that she has had in the past. It occurs every time she eats since she has abdominal cramping and nausea. Is very loose stool without any blood and it is not malodorous as it was in the past with her C diff infections. Review of Systems 2 Constitutional: Constitutional: Denies body ache(s), Reports chills, Denies fatigue, Denies fever(s) and Denies headache(s) Eyes: Eyes: Denies change in vision Comments: swelling L eye, no drainage ENT: Denies headache(s), Denies nasal congestion and Denies sore throat Cardiovascular: Cardiovascular: Denies chest pain, Denies rapid heart rate, Reports leg edema and Denies dyspnea Respiratory: Respiratory: Reports change in phlegm color, Reports cough, Denies dyspnea and Denies wheezing Gastrointestinal: Gastrointestinal: Denies melena, Denies hematochezia, Denies constipation, Reports GI cramping, Reports diarrhea, Reports nausea and Denies vomiting Genitourinary: Genitourinary: Denies dysuria, Denies urinary incontinence and Denies urinary urgency Musculoskeletal: Musculoskeletal: Denies numbness and Denies stiffness Integumentary/Breasts: Skin/Breast: Reports as per HPI Neurologic: Denies confusion, Denies headache(s) and Denies numbness Psychiatric: Psychiatric: Denies confusion Endocrine: Endocrine: Denies fatigue Hematologic/Lymphatic: Comments: chronic LE edema Allergic/Immunologic: Allergic/Immunologic: Denies wheezing [facility] Medical History (Updated 10/21/24 @ 05:38 by Carol Will PA-C) Sepsis Depression Anxiety Kidney disease Headache Swelling Arthritis Hx of blood clots Sinusitis Asthma Stasis dermatitis Bilateral lower leg cellulitis Cellulitis COPD (chronic obstructive pulmonary disease) Lung density on x-ray Smoker COPD (chronic obstructive pulmonary disease) with acute bronchitis Bilateral pneumonia Tobacco abuse C. difficile colitis Community acquired pneumonia Bilateral pneumonia Open wound of right elbow Respiratory failure with hypoxia Pneumonia due to COVID-19 virus Acute respiratory distress syndrome (ARDS) due to COVID-19 virus Acute exacerbation of chronic obstructive airways disease Acute hypoxemic respiratory failure due to COVID-19 Ulcer of lower extremity Sepsis with acute hypoxic respiratory failure without septic shock Encounter for testing for latent tuberculosis infection Falling Charcot's joint of foot Cellulitis Redness and swelling of lower leg C. difficile colitis Secondary bacterial pneumonia Immunosuppression due to chronic steroid use Mixed connective tissue disease Cellulitis of right leg PAD (peripheral artery disease) Varicose veins of right lower extremity with inflammation Rheumatoid arthritis Cellulitis CVA (cerebral vascular accident) Proteinuria Fibromyalgia Hypothyroid Lupus Family History Father No problems noted. Mother Lung cancer Rheumatoid arthritis Surgical History Status post incision and drainage History of breast lump/mass excision History of excision of mass History of partial hysterectomy History of cholecystectomy History of bunionectomy Social History Household Members: Children Household Members Other:: My twin sons Housing: House Do you presently have visiting nurse or other home services: Yes Alcohol intake: former Comment: pt asleep Patient Tobacco Use Status: Current everyday Tobacco user Tobacco use type: Cigarette Cigarette Packs Per Day: 1 Cigarettes Per Day: 20.0 Years Smoked: 30 Second Hand Smoke Exposure: No Use of substances other than those prescribed or required for medical reasons: No Substance Use Type: Marijuana Advance Directives: Yes Advance Directives on File: Yes Advance Directives Date on File: 11/26/21 Do you have a plan to hurt others: No Plan service: No Current occupational status: unemployed and disabled Current occupation: right hand dominant Cognitive needs: No Hearing needs: No Vision needs: Yes Narrative: smokes 1 pk/day. no etoh or drug use. Meds Allergies Allergy/AdvReac Type Severity Reaction Status Date / Time clarithromycin Allergy Intermediate FACIAL Verified 10/21/24 02:38 [CLARITHROMYCIN] SWELLING/REDNESS, facial rash, facial rash, facial rash, facial rash Home Medications ?Medication ?Instructions ?Recorded ?Confirmed ?Last Taken ?Type pravastatin 40 mg tablet 40 mg PO BEDTIME 08/15/20 07/21/24 06/12/24 History albuterol sulfate 90 mcg/actuation 2 puff inhalation Q6H PRN 08/31/20 07/21/24 04/24/24 06:00 History aerosol inhaler Shortness Of Breath Or Wheezing bupropion HCl 100 mg tablet,12 hr 100 mg PO BID 08/31/20 07/21/24 06/12/24 History sustained-release nortriptyline 75 mg capsule 75 mg PO BEDTIME 04/18/21 07/21/24 06/12/24 History loratadine 10 mg tablet 10 mg PO DAILY allergies 10/21/21 07/21/24 06/12/24 History nebulizer and compressor (Vios #1 ea 02/15/22 07/21/24 Unknown History Aerosol Delivery System) famotidine 20 mg tablet 1 tab PO DAILY 05/24/22 07/21/24 06/12/24 History hhrdknrnlk-ejutlxfradelj-uaqnbyls 1 tab PO DAILY PRN headache 11/08/22 07/21/24 05/22/24 08:00 History 50 mg-325 mg-40 mg tablet ferrous sulfate 325 mg (65 mg 1 tab PO DAILY 11/08/22 07/21/24 06/12/24 History iron) tablet (FeroSul) tiotropium bromide 2.5 1 puff inhalation DAILY 11/08/22 07/21/24 06/12/24 History mcg/actuation mist for inhalation (Spiriva Respimat) fluoxetine 20 mg capsule 2 cap PO DAILY 12/27/22 07/21/24 06/12/24 History apixaban 5 mg tablet (Eliquis) 5 mg PO BID 01/03/23 07/21/24 06/12/24 History folic acid 1 mg tablet 1 mg PO DAILY 01/03/23 07/21/24 06/12/24 History multivitamin (One Daily 1 tab PO DAILY 0207/21/24 06/12/24 History Multivitamin tablet) lorazepam 1 mg tablet 1 mg PO DAILY PRN anxiety 04/24/24 07/21/24 05/22/24 08:00 History acetaminophen 325 mg tablet 650 mg PO Q6H PRN Pain 06/13/24 07/21/24 Unknown History (Tylenol) oxycodone 15 mg tablet 15 mg PO TID PRN 07/21/24 07/21/24 Unknown History levothyroxine 150 mcg tablet 150 mcg PO DAILY 08/17/24 Unknown History Physical Exam 2 Vital Signs and Narrative: Vital Signs: Last Vital Signs Temp 98.9 F 10/21/24 03:48 Pulse 101 H 10/21/24 03:48 Resp 18 10/21/24 03:48 BP 117/63 10/21/24 03:48 Pulse Ox 94 10/21/24 03:48 O2 Del Method Room Air 10/21/24 03:48 BMI result Body Mass Index 24.6 General: AOx3, no acute distress HEENT: swelling and erythema around L eye Resp: CTA bilaterally CVS: normal rhythm, mildly tachy, normal capillary refill GI: +BS, NT, no distention Skin: Warm, dry. no increased warmth RLE. chronic venous stasis. R leg more edematous. Psych: Appropriate affect Const: General: No confusion Orientation/consciousness: No confusion Neuro: General: No confusion Results Labs 10/21/24 02:56 10/21/24 02:56 Labs: Laboratory Results - last 24 hr 10/21/24 10/21/24 02:56 03:56 MCV 80.1 MCH 26.0 L MCHC 32.5 RDW 15.4 Plt Count 200 D MPV 8.7 L Immature Gran % (Auto) 0.7 H Neut % (Auto) 77.8 H Lymph % (Auto) 11.7 L [place] % (Auto) 7.7 Eos % (Auto) 1.7 Baso % (Auto) 0.4 Lymph # (Auto) 3.1 [place] # (Auto) 2.1 H Eos # (Auto) 0.5 H Baso # (Auto) 0.1 Abs Immat Gran (auto) 0.20 H Absolute Neuts (auto) 20.8 H Absolute Nucleated RBC 0.000 Nucleated RBC % (auto) 0.0 Smear Tech's Comments VERIFIED Anion Gap 11 L Estim Creat Clear Calc 81.9 Estimated GFR > 60 Random Glucose 106 Lactic Acid 1.9 Calcium 7.2 L D Total Bilirubin 0.1 AST 26 ALT 9 Alkaline Phosphatase 130 H Total Protein 3.0 L Albumin 1.3 L Influenza Type A (PCR) NEGATIVE Influenza Type B (PCR) NEGATIVE RSV RNA Qual (PCR) NEGATIVE SARS-CoV-2 RNA (RT-PCR) NEGATIVE Imaging Radiologist's Impressions: Impressions Chest X-Ray 10/21/24 03:25 IMPRESSION: Diffuse increased interstitial markings grossly similar to previous CT findings. No focal lung consolidation or pleural effusions. Electronically signed by: Pato Esparza MD 10/21/2024 04:09 AM [facility] Assessment and Plan (1) Sepsis: Status: Acute (2) Diarrhea: Status: Acute (3) Lupus: Status: Acute (4) Smoker: Status: Acute Plan Patient is a 49-year-old female with a past medical history significant for COPD, lupus, CVA (2013) and peripheral arterial disease on Eliquis and statin, fibromyalgia, hypothyroidism with chronic leg edema, who presented to the ED due to increased right lower extremity edema for the past month, worse over the past few days, cough and diarrhea. sepsis, not severe, likely secondary to diarrhea presumed recurrent c diff - WBC 26.7, mild tachycardia, lactic acid normal, blood cultures pending. sepsis focused exam normal. - initially thought to be cellulitis but appears to be chronic venous stasis, pt started on ceftraixone and vancomycin, will hold off on further abx pending stool tests - GI panel and c diff ordered - CXR negative, COVID/flu/RSV negative, likely other viral URI in addition - contact precautions - monitor CBC and BMP RLE edema - appears to be chronic venous stasis - venous dopplar RLE to r/o DVT - pt on eliquis, continue erythema/swelling L eye and hands - appears to be related to Lupus, pt with similar reactions in the past hx CVA/PAD - continue eliquis and statin COPD, unspecified - lung sounds normal, no acute exacerbation hypothyroidism - continue levothyroxine smoker - cessation discussed - nicotine patch full code VTE prophy: eliquis Pt with sepsis liekly secondary to recurrent c diff requiring admission for at least 2 midnights stay for treatment and monitoring. Quality Stroke Does the patient have a stroke diagnosis?: No VTE Prior VTE?: No VTE Risk Level:: Medical - moderate - high VTE Device Contraindication: Treatment Not Tolerated VTE Drug Contraindication: N/A - Med Ordered
[2024-10-21 05:49] VITALS: BP 117/67; PULSE 97; RESP 14; TEMP 37.1; O2SAT 93
--- NOTE | 2024-10-21 07:37 | PC.NURSE ---
Patient transferred to bed 386-1 via transport.
[2024-10-21 08:00] VITALS: BP 113/60; PULSE 97; RESP 16; TEMP 36.9; O2SAT 95
[2024-10-21] MEDS: Nicotine 21 MG PATCH.TD24 TRANSDERMA (09:06)
[2024-10-21] MEDS: 0.9 % Sodium Chloride Flush 3 ML SYRINGE IVFLUSH ×3 (09:07→22:45)
--- NOTE | 2024-10-21 10:18 | PHA.MEDREC ---
Pharmacy Consult ? Medication Reconciliation Pharmacy has completed the medication reconciliation. Spoke to patient to confirm medication list. Patient said she has not started fosamax yet. She confirmed the dose of fluoxetine is 40 mg daily, dose of levothyroxine is 175 mcg. She confirmed she takes pravastatin 40 mg daily (no pharmacy claim but she was able to recall the dose of 40 mg). For hydroxychloroquine, she takes 100 mg in the morning and 200 mg at bedtime (she admitted that she may be taking it incorrectly but that's how she has been taking it). For sulfasalazine, she takes 500 mg at 8am and 1000 mg at 8pm. She also confirmed she uses spiriva respimat even though there's no pharmacy claims. Last dose of medications was last night.
--- NOTE | 2024-10-21 12:33 | PM.EVENT ---
Event Note Date of Service: 10/21/24 Event Note: seen and evaluated this morning feels better already no diarrhea since admission, pending Cdiff collection No abd tenderness or fever though continue current therapy and monitor response Time Spent With Patient Time: Total time managing care of this patient today ____ minutes.
[2024-10-21] MEDS: Apixaban 5 MG TABLET PO ×2 (15:04→22:43)
[2024-10-21 15:16] VITALS: BP 113/56; PULSE 112; RESP 18; TEMP 36.9; O2SAT 94
[2024-10-21 19:38] VITALS: BP 115/58; PULSE 108; RESP 18; TEMP 37.2; O2SAT 93
[2024-10-21] MEDS: Nortriptyline HCl 25 MG CAPSULE 75 MG PO (22:43)
[2024-10-21] MEDS: Pravastatin Sodium 40 MG TABLET PO (22:43)
[2024-10-21] MEDS: sulfaSALAzine 500 MG TABLET 1000 MG PO (22:43)
[2024-10-21] MEDS: Hydroxychloroquine Sulfate 200 MG TABLET PO (22:43)
[2024-10-21] MEDS: LORazepam 1 MG TABLET PO (22:54)
[2024-10-21 23:54] LABS: CDiff Gene PCR POSITIVE (Negative)
[2024-10-22 00:51] LABS: CDiff Toxin Positive (Negative)
[2024-10-22 00:52] LABS: CDIFF Internal ctrl Dots and bkg OK (V)
[2024-10-22] MEDS: vancomycin HCL 125 MG CAPSULE PO ×4 (02:06→20:02)
[2024-10-22 03:20] VITALS: BP 105/55; PULSE 100; RESP 18; TEMP 36.7; O2SAT 95
[2024-10-22] MEDS: Levothyroxine Sodium 175 MCG TABLET PO (06:02)
[2024-10-22 08:16] VITALS: BP 120/74; PULSE 111; RESP 18; TEMP 36.7; O2SAT 95
[2024-10-22 08:16] LABS: Basophils Absolute Auto 0.1 X10*3/uL (0.0-0.2); Basophils Percent Auto 0.8 % (0-2); Eosinophils Absolute Auto 0.7 X10*3/uL (0.0-0.4); Eosinophils Percent Auto 4.1 % (0-4); Hematocrit 38.4 % (37.0-47.0); Hemoglobin 12.2 g/dl (12.0-16.0); Imm Gran Abs Auto 0.13 X10*3/uL (0.00-0.03); Imm Gran Pct Auto 0.8 % (0.0-0.4); Lymphocytes Absolute Auto 2.5 X10*3/uL (1.2-4.9); Lymphocytes Percent Auto 15.4 % (20-40); MANUAL DIFF FLAG SCAN; Mean Corpuscular HGB Conc 31.8 g/dl (31.0-35.0); Mean Corpuscular Hemoglobin 25.8 pg (27.0-33.0); Mean Corpuscular Volume 81.4 fL (80.0-98.0); Mean Platelet Volume 9.1 fL (9.4-12.3); Monocytes Absolute Auto 1.6 X10*3/uL (0.1-1.2); Monocytes Percent Auto 9.6 % (2-11); Neutrophils Absolute Auto 11.5 x10*3/uL (2.0-8.3); Neutrophils Percent Auto 69.3 % (45-73); Platelet Count 191 X10*3/uL (160-400); Red Blood Count 4.72 X10*6/uL (4.20-5.50); Red Cell Distribution Width 15.4 % (11.0-16.0); SCAN SMEAR FLAG 1; White Blood Count 16.5 X10*3/uL (4.8-10.8)
[2024-10-22] MEDS: Hydroxychloroquine Sulfate 200 MG TABLET 100 MG PO (08:38)
[2024-10-22] MEDS: sulfaSALAzine 500 MG TABLET PO (08:38)
[2024-10-22] MEDS: Loratadine 10 MG TABLET PO (08:39)
[2024-10-22] MEDS: Ferrous Sulfate 324 MG TABLET.DR PO (08:39)
[2024-10-22] MEDS: Famotidine 20 MG TABLET PO (08:39)
[2024-10-22] MEDS: predniSONE 5 MG TABLET PO (08:39)
[2024-10-22] MEDS: buPROPion HCl XL 150 MG TAB.ER.24H PO (08:39)
[2024-10-22] MEDS: Apixaban 5 MG TABLET PO ×2 (08:39→20:04)
[2024-10-22] MEDS: Nicotine 21 MG PATCH.TD24 TRANSDERMA (08:39)
[2024-10-22] MEDS: Cholecalciferol (Vitamin D3) 25 MCG TABLET 50 MCG PO (08:39)
[2024-10-22] MEDS: Folic Acid 1 MG TABLET PO (08:39)
[2024-10-22] MEDS: FLUoxetine HCl 20 MG CAPSULE 40 MG PO (08:39)
[2024-10-22] MEDS: Multivitamin TABLET 1 TAB PO (08:39)
[2024-10-22 08:46] LABS: Anion Gap 8 (12-20); Blood Urea Nitrogen 12 mg/dL (9-16); Carbon Dioxide 25 mmol/L (22-29); Chloride 107 mmol/L (96-108); Creatinine Clr Calc Pharmacy 80.8; Estimated Glomerular Filt Rate > 60; Glucose Random 87 mg/dL (60-115); Potassium 2.9 mmol/L (3.3-5.1); Sodium 137 mmol/L (135-145)
[2024-10-22] MEDS: Fluticasone/Vilanterol 200/25 BLST.W.DEV 1 PUFF INHALE (08:50)
[2024-10-22] MEDS: Tiotropium Bromide 2.5 mcg 1 PUFF/2.5 MCG MIST.INHAL INHALE (08:50)
[2024-10-22 08:55] VITALS: PULSE 100; RESP 18; O2SAT 93
[2024-10-22 09:13] LABS: SLIDE REVIEW VERIFIED
[2024-10-22] MEDS: Butalb/Acetamin/Caff 50/325/40 TABLET 2 TAB PO (09:25)
[2024-10-22] MEDS: Potassium Chloride/H20 10 MEQ/100 ML PIGGYBACK 100 MEQ IV ×2 (09:26→10:21)
[2024-10-22] MEDS: Potassium Chloride Packet 20 MEQ PACKET 40 MEQ PO ×2 (09:26→10:21)
[2024-10-22 09:32] LABS: Adenovirus F 40/41 Not Detected (Not Detect.); Astrovirus Not Detected (Not Detect.); Campylobacter Not Detected (Not Detect.); Cryptosporidium Not Detected (Not Detect.); Cyclospora cayetanensis Not Detected (Not Detect.); E. coli EAEC Not Detected (Not Detect.); E. coli EPEC Not Detected (Not Detect.); E. coli ETEC Not Detected (Not Detect.); E. coli STEC Not Detected (Not Detect.); Entamoeba histolytica Not Detected (Not Detect.); Giardia lamblia Not Detected (Not Detect.); Norovirus GI/GII Not Detected (Not Detect.); Plesiomonas shigelloides Not Detected (Not Detect.); Rotavirus A Not Detected (Not Detect.); Salmonella Not Detected (Not Detect.); Sapovirus Not Detected (Not Detect.); Shigella sp./EIEC Not Detected (Not Detect.); Vibrio Not Detected (Not Detect.); Vibrio Cholerae Not Detected (Not Detect.); Yersinia enterocolitica Not Detected (Not Detect.)
--- NOTE | 2024-10-22 13:58 | P.DS_ITS ---
DS: Providers Provider Date of Service: 10/22/24 Date of admission: 10/21/24 05:33 Date of discharge: 10/22/24 Primary care physician: Sylvia Hicks CNP DS: Diagnosis Discharge Diagnosis (1) Sepsis: Status: Acute (2) Diarrhea: Status: Acute (3) Lupus: Status: Acute (4) Smoker: Status: Acute (5) Clostridioides difficile diarrhea: Status: Acute (6) Stasis dermatitis of both legs: Status: Acute DS: Summary Hospital Course Hospital Course: Admission note HPI Patient is a 49-year-old female with a past medical history significant for COPD, lupus, CVA (2013) and peripheral arterial disease on Eliquis and statin, fibromyalgia, hypothyroidism with chronic leg edema, who presented to the ED due to increased right lower extremity edema for the past month, worse over the past few days, cough and diarrhea. She reports chronic lower extremity edema with recurrent episodes of cellulitis usually in the right lower extremity. Is painful to touch. She also has swelling and erythema around the left eye and on the hands, this can be consistent with her lupus however not as significant in the past. She also describes a productive cough with yellow sputum, no fever but chills. She is also having some diarrhea which she reports feels similar to C diff that she has had in the past. It occurs every time she eats since she has abdominal cramping and nausea. Is very loose stool without any blood and it is not malodorous as it was in the past with her C diff infections. Hospital course The patient was admitted to the hospital for evaluation of Diarrhea. found to be septic. Concern was over cellulitis vs recurrent C.Diff. Started on IV antiibotics of vancomycin and Ceftriaxone. Testing for C.Diff came back positive for toxin and she was switched to oral Vancomycin with good response as diarrhea resolved. blood cultures remained negative. She refused PT therapy. Noted to have erythema in bilateral lower extremities with dry skin representing stasis dermatitis. improved with leg elevated and Ammonium lactate lotion which she will be discharged home with as venous dopplar RLE negative for DVT but showed small popliteal fossa cyst; likely small nogueira cyst. no tenderness noted. Reported erythema/swelling L eye and hands likely related to history of Lupus as she had similar reactions in the past. seems to improve while inpatient as well. Discharge plan Oral Vancomycin for C.Diff infection Physical therapy as tolerated Lower extremities dryness; use Lotion and keep them moist The patient made quicker than anticipated recovery as diarrhea resolved and she tolerated regular diet therefore she will not need a 2nd night of hospital stay. Time Attestation Discharge Coordination Time (in mins): 37 Quality: Safe Use of Opioids Does Pt have an Active Cancer Diagnosis on the Problem List?: No Quality: Stroke Does the patient have a stroke diagnosis?: No Physical Exam Vital Signs: Vital Signs: Last Vital Signs Temp 98.0 F 10/22/24 08:16 Pulse 100 10/22/24 08:55 Resp 18 10/22/24 08:55 BP 120/74 10/22/24 08:16 Pulse Ox 95 10/22/24 08:16 O2 Del Method Room Air 10/22/24 08:16 BMI result Body Mass Index 24.6 Const: Other: Constitutional : Awake, interactive, not in distress Neck : Normal inspection, Supple Cardiovascular : RRR, no JVP, no lower extremity edema Respiratory : good bilateral air entry, no crackles, wheezes or rhonchi Gastrointestinal: soft, lax, Normal bowel sounds, Non tender Skin : Warm, Dry. bilateral LE dryness, no erythema or tenderness Neurological : Alert & oriented x3, No focal deficit DS: Data Data Completed and Pending Completed studies during hospitalization [Text1]: Procedures Assistance with Respiratory Ventilation, Less than 24 Consecutive Hours, Continuous Positive Airway Pressure (11/25/21) Drainage of Right Elbow Bursa and Ligament, Open Approach (11/08/22) Excision of Left Lower Leg Subcutaneous Tissue and Fascia, Open Approach, Diagnostic (08/31/20) Insertion of Endotracheal Airway into Trachea, Via Natural or Artificial Opening Endoscopic (11/25/21) Insertion of Infusion Device into Superior Vena Cava, Percutaneous Approach (10/26/23) Introduction of Baricitinib into Mouth and Pharynx, External Approach, [employer] 6 (11/25/21) Introduction of Remdesivir Anti-infective into Peripheral Vein, Percutaneous Approach, [employer] 5 (11/25/21) Introduction of Vasopressor into Peripheral Vein, Percutaneous Approach (11/25/21) Respiratory Ventilation, 24-96 Consecutive Hours (11/25/21) Respiratory Ventilation, Greater than 96 Consecutive Hours (11/25/21) Transfusion of Nonautologous Red Blood Cells into Peripheral Vein, Percutaneous Approach (01/08/22) Ultrasonography of Superior Vena Cava, Guidance (10/26/23) Labs on day of discharge: Laboratory Results - last 24 hr 10/21/24 10/22/24 22:00 06:45 WBC 16.5 H RBC 4.72 Hgb 12.2 Hct 38.4 MCV 81.4 MCH 25.8 L MCHC 31.8 RDW 15.4 Plt Count 191 MPV 9.1 L Immature Gran % (Auto) 0.8 H Neut % (Auto) 69.3 Lymph % (Auto) 15.4 L [place] % (Auto) 9.6 Eos % (Auto) 4.1 H Baso % (Auto) 0.8 Lymph # (Auto) 2.5 [place] # (Auto) 1.6 H Eos # (Auto) 0.7 H Baso # (Auto) 0.1 Abs Immat Gran (auto) 0.13 H Absolute Neuts (auto) 11.5 H Absolute Nucleated RBC 0.000 Nucleated RBC % (auto) 0.0 Smear Tech's Comments VERIFIED Sodium 137 Potassium 2.9 L* D Chloride 107 Carbon Dioxide 25 Anion Gap 8 L BUN 12 Creatinine 0.71 Estim Creat Clear Calc 80.8 Estimated GFR > 60 Random Glucose 87 Calcium 7.0 L Stl C. cayetanensis PCR Not Detected Stool Rotavirus A PCR Not Detected Stl Adenov F 40/41 PCR Not Detected Stool Astrovirus (PCR) Not Detected Stool Campylobacter PCR Not Detected Stool Cryptosporidium PCR Not Detected Stl Sh Tox Pr E STEC PCR Not Detected Stool E coli O157 PCR Not applicable Stl Enterotoxigenic E PCR Not Detected Stool EPEC (PCR) Not Detected Stool EAEC (PCR) Not Detected Stl E. histolytica PCR Not Detected Stool Giardia Lamblia PCR Not Detected Stl P. shigelloides PCR Not Detected Stool Salmonella PCR Not Detected Stool Sapovirus (PCR) Not Detected Stl Shigella/EIEC PCR Not Detected St Y.enterocolitica PCR Not Detected Stool Vibrio (PCR) Not Detected Stl Vibrio cholerae PCR Not Detected Stl Norovirus GI/GII PCR Not Detected C. difficile Tox B Gene POSITIVE A* C. difficile Toxin A&B Positive A* C. difficile Interpret SEE NOTE Preliminary micro results at discharge 10/21/24 04:02 Blood Culture - Preliminary Blood - Venous No growth after 24 hours. 10/21/24 03:57 Blood Culture - Preliminary Blood - Venous No growth after 24 hours. Imaging Chest x-ray: Radiologist's impression: ITS Impressions Chest X-Ray 10/21/24 03:25 IMPRESSION: Diffuse increased interstitial markings grossly similar to previous CT findings. No focal lung consolidation or pleural effusions. Electronically signed by: Pato Esparza MD 10/21/2024 04:09 AM EST RP Venous Duplex 10/21/24 06:05 IMPRESSION: 1. No evidence of deep venous thrombosis involving the right lower extremity. 2. A 2.8 cm complex fluid collection with possible thick septations in the right popliteal fossa. 3. There are 2 right inguinal lymph nodes measuring respectively 0.7 cm and 1.5 cm in transverse dimension. This study was presented today October 21, 2024 for interpretation. Stat results provided at this time as requested by referring provider. Electronically signed by: Jennifer Duron MD 10/21/2024 06:53 AM EST RP Discharge Plan Discharge Anticipated Discharge Date/Time: 10/22/24 13:54 Patient Disposition: Home Health Service Discharge Diagnosis: C.Diff infection Referrals: Sylvia Hicks, [facility] [Primary Care Provider] - 1 Week Discharge Medications: New ammonium lactate 12 % Lotion 1 appl topical BID Qty: 225 0RF Protocol: Apply to: Apply to: lower extremities vancomycin 125 mg Capsule 125 mg PO Q6H 14 Days Qty: 56 0RF Continued bupropion HCl 100 mg tablet sustained-release 12 hr 100 mg PO BID albuterol sulfate 90 mcg/actuation HFA aerosol inhaler 2 puff inhalation Q6H PRN (Reason: Shortness Of Breath Or Wheezing) loratadine 10 mg Tablet 10 mg PO DAILY fluoxetine 20 mg capsule 2 cap PO DAILY famotidine 20 mg tablet 1 tab PO DAILY [id number]-mqzuesbnmktae-bcve 50-325-40 mg tablet 2 tab PO DAILY PRN (Reason: headache) ferrous sulfate [FeroSul] 325 mg (65 mg iron) tablet 1 tab PO DAILY Spiriva Respimat 2.5 mcg/actuation mist 1 puff INHALATION DAILY multivitamin [One Daily Multivitamin] Tablet 1 tab PO DAILY folic acid 1 mg tablet 1 mg PO DAILY Eliquis 5 mg tablet 5 mg PO BID lorazepam 1 mg tablet 1 mg PO DAILY PRN (Reason: anxiety) acetaminophen [Tylenol] 325 mg Tablet 650 mg PO Q6H PRN (Reason: Pain) hydroxychloroquine 200 mg tablet 100 mg PO DAILY@0800 levothyroxine 175 mcg Tablet 175 mcg PO DAILY hydroxychloroquine 200 mg Tablet 200 mg PO DAILY@2000 sulfasalazine 500 mg tablet 1,000 mg PO DAILY@2000 prednisone 5 mg tablet 5 mg PO DAILY sulfasalazine 500 mg tablet 500 mg PO DAILY@0800 lidocaine 5 % adhesive patch,medicated 2 patch topical DAILY PRN (Reason: pain) nortriptyline 75 mg capsule 75 mg PO BEDTIME pravastatin 40 mg tablet 40 mg PO BEDTIME (DME) nebulizer and compressor [[employer] Aerosol Delivery System] Device See Rx Instructions .ROUTE DIRECTED Qty: 1 Rx Instructions: As directed fluticasone propion-salmeterol [Advair HFA] 230-21 mcg/actuation HFA aerosol inhaler 2 puff inhalation BID 30 Days Qty: 12 5RF Rx Instructions: administer with spacer (DME) Aerovent Plus Spacer See Rx Instructions .Route Qty: 10 0RF Rx Instructions: As directed cholecalciferol (vitamin D3) 50 mcg (2,000 unit) capsule 50 mcg PO DAILY Qty: 90 1RF Discharge Orders: Discharge Order (Routine); Ordered 10/22/24 Ordered By: Al Marrero Diet: Advance to usual diet Activity on Discharge: As tolerated Stand Alone Forms: Patient Portal Discharge page Print Language: Azeri Care Plan Goals: Oral Vancomycin for C.Diff infection Physical therapy as tolerated Lower extremities dryness; use Lotion and keep them moist Health Concerns: C.Diff infection Plan of Treatment: Oral Vancomycin Assessment: as above
--- NOTE | 2024-10-22 14:28 | P.PNIM_ITS ---
Subjective Subjective Date of Service: 10/22/24 Interval History: seen and evlauated feels better overall still reporting diarrhea Review of Systems Review of Systems: Yes all other systems are reviewed and are negative Physical Exam 2 Vital Signs: Vital Signs: Last Vital Signs Temp 98.0 F 10/22/24 08:16 Pulse 100 10/22/24 08:55 Resp 18 10/22/24 08:55 BP 120/74 10/22/24 08:16 Pulse Ox 95 10/22/24 08:16 O2 Del Method Room Air 10/22/24 08:16 BMI result Body Mass Index 24.6 Const: Other: Constitutional : Awake, interactive, not in distress Neck : Normal inspection, Supple Cardiovascular : RRR, no JVP, no lower extremity edema Respiratory : good bilateral air entry, no crackles, wheezes or rhonchi Gastrointestinal: soft, lax, Normal bowel sounds, Non tender Skin : Warm, Dry. bilateral LE dryness, no erythema or tenderness Neurological : Alert & oriented x3, No focal deficit Objective Data Active Medications Acetaminophen (Acetaminophen 325 Mg Tablet) 650 mg PO Q6H PRN PRN Reason: Pain, Mild (Pain Scale 1-3), fever or headache Acetaminophen/Butalbital/Caffeine (Butalb/Acetamin/Caff 50/325/40 Tablet) 2 tab PO DAILY PRN PRN Reason: headache Last Admin: 10/22/24 09:25 Dose: 2 tab Documented By: JAE Albuterol Sulfate (Albuterol Sulfate 90 Mcg 8 Gm Inhaler) 2 puff INHALE Q6H PRN PRN Reason: Shortness Of Breath Or Wheezing Apixaban (Apixaban 5 Mg Tablet) 5 mg PO BID [facility] Last Admin: 10/22/24 08:39 Dose: 5 mg Documented By: JAE Bupropion HCl (Bupropion Hcl Xl 150 Mg Tab.Er.24h) 150 mg PO DAILY [facility] Last Admin: 10/22/24 08:39 Dose: 150 mg Documented By: JAE Calcium Carbonate (Calcium Carbonate 750 Mg Tab.Chew) 750 mg PO Q4H PRN PRN Reason: Heartburn Famotidine (Famotidine 20 Mg Tablet) 20 mg PO DAILY [facility] Last Admin: 10/22/24 08:39 Dose: 20 mg Documented By: JAE Ferrous Sulfate (Ferrous Sulfate 324 Mg Tablet.) 324 mg PO DAILY [facility] Last Admin: 10/22/24 08:39 Dose: 324 mg Documented By: JAE Fluoxetine HCl (Fluoxetine Hcl 20 Mg Capsule) 40 mg PO DAILY [facility] Last Admin: 10/22/24 08:39 Dose: 40 mg Documented By: JAE Fluticasone/Vilanterol (Fluticasone/Vilanterol 200/25 Blst.W.Dev) 1 puff INHALE RDAILY [facility] Last Admin: 10/22/24 08:50 Dose: 1 puff Documented By: MELITA Folic Acid (Folic Acid 1 Mg Tablet) 1 mg PO DAILY [facility] Last Admin: 10/22/24 08:39 Dose: 1 mg Documented By: JAE Hydroxychloroquine Sulfate (Hydroxychloroquine Sulfate 200 Mg Tablet) 200 mg PO DAILY@2000 [facility] Last Admin: 10/21/24 22:43 Dose: 200 mg Documented By: FRANCISCO Hydroxychloroquine Sulfate (Hydroxychloroquine Sulfate 200 Mg Tablet) 100 mg PO DAILY@0800 [facility] Last Admin: 10/22/24 08:38 Dose: 100 mg Documented By: JAE Lactic Acid (Ammonium Lactate 12 % Lotion 226 Gm Bottle) 1 appl TOPICAL BID [facility]; Protocol Levothyroxine Sodium (Levothyroxine Sodium 175 Mcg Tablet) 175 mcg PO DAILY@0600 [facility] Last Admin: 10/22/24 06:02 Dose: 175 mcg Documented By: FRANCISCO Loratadine (Loratadine 10 Mg Tablet) 10 mg PO DAILY [facility] Last Admin: 10/22/24 08:39 Dose: 10 mg Documented By: JAE Lorazepam (Lorazepam 1 Mg Tablet) 1 mg PO DAILY PRN PRN Reason: anxiety Last Admin: 10/21/24 22:54 Dose: 1 mg Documented By: FRANCISCO Magnesium Hydroxide (Milk Of Magnesia 30 Ml Oral.Susp) 30 ml PO DAILY PRN PRN Reason: Constipation Melatonin (Melatonin 3 Mg Tablet) 6 mg PO BEDTIME PRN PRN Reason: Insomnia Multivitamins/Vitamin C (Multivitamin Tablet) 1 tab PO DAILY [facility] Last Admin: 10/22/24 08:39 Dose: 1 tab Documented By: JAE Nicotine (Nicotine 21 Mg Patch.Td24) 21 mg TRANSDERMA DAILY [facility] Last Admin: 10/22/24 08:39 Dose: 21 mg Documented By: JAE Nortriptyline HCl (Nortriptyline Hcl 25 Mg Capsule) 75 mg PO BEDTIME [facility] Last Admin: 10/21/24 22:43 Dose: 75 mg Documented By: FRANCISCO Ondansetron HCl (Ondansetron Hcl 4 Mg/2 Ml Vial) 4 mg IVPUSH Q8H PRN PRN Reason: Nausea and Vomiting Pravastatin Sodium (Pravastatin Sodium 40 Mg Tablet) 40 mg PO BEDTIME [facility] Last Admin: 10/21/24 22:43 Dose: 40 mg Documented By: FRANCISCO Prednisone (Prednisone 5 Mg Tablet) 5 mg PO DAILY [facility] Last Admin: 10/22/24 08:39 Dose: 5 mg Documented By: JAE Sodium Chloride (0.9 % Sodium Chloride Flush 3 Ml Syringe) 3 ml IVFLUSH QSHIFT [facility] Last Admin: 10/22/24 07:18 Dose: Not Given Documented By: JAE Non-Admin Reason: Previously Administered Sulfasalazine (Sulfasalazine 500 Mg Tablet) 500 mg PO DAILY@0800 [facility] Last Admin: 10/22/24 08:38 Dose: 500 mg Documented By: JAE Sulfasalazine (Sulfasalazine 500 Mg Tablet) 1,000 mg PO DAILY@2000 [facility] Last Admin: 10/21/24 22:43 Dose: 1,000 mg Documented By: FRANCISCO Tiotropium [place] (Tiotropium [place] 2.5 Mcg 1 Puff/2.5 Mcg Mist.Inhal) 1 puff INHALE RDAILY [facility] Last Admin: 10/22/24 08:50 Dose: 1 puff Documented By: MELITA Vancomycin HCl (Vancomycin Hcl 125 Mg Capsule) 125 mg PO Q6H [facility] Last Admin: 10/22/24 08:39 Dose: 125 mg Documented By: JAE Vitamin D (Cholecalciferol (Vitamin D3) 25 Mcg Tablet) 50 mcg PO DAILY [facility] Last Admin: 10/22/24 08:39 Dose: 50 mcg Documented By: JAE Labs 10/22/24 06:45 10/22/24 06:45 Labs: Laboratory Results - last 24 hr 10/21/24 10/22/24 22:00 06:45 MCV 81.4 MCH 25.8 L MCHC 31.8 RDW 15.4 Plt Count 191 MPV 9.1 L Immature Gran % (Auto) 0.8 H Neut % (Auto) 69.3 Lymph % (Auto) 15.4 L [place] % (Auto) 9.6 Eos % (Auto) 4.1 H Baso % (Auto) 0.8 Lymph # (Auto) 2.5 [place] # (Auto) 1.6 H Eos # (Auto) 0.7 H Baso # (Auto) 0.1 Abs Immat Gran (auto) 0.13 H Absolute Neuts (auto) 11.5 H Absolute Nucleated RBC 0.000 Nucleated RBC % (auto) 0.0 Smear Tech's Comments VERIFIED Anion Gap 8 L Estim Creat Clear Calc 80.8 Estimated GFR > 60 Random Glucose 87 Calcium 7.0 L Stl C. cayetanensis PCR Not Detected Stool Rotavirus A PCR Not Detected Stl Adenov F 40/41 PCR Not Detected Stool Astrovirus (PCR) Not Detected Stool Campylobacter PCR Not Detected Stool Cryptosporidium PCR Not Detected Stl Sh Tox Pr E STEC PCR Not Detected Stool E coli O157 PCR Not applicable Stl Enterotoxigenic E PCR Not Detected Stool EPEC (PCR) Not Detected Stool EAEC (PCR) Not Detected Stl E. histolytica PCR Not Detected Stool Giardia Lamblia PCR Not Detected Stl P. shigelloides PCR Not Detected Stool Salmonella PCR Not Detected Stool Sapovirus (PCR) Not Detected Stl Shigella/EIEC PCR Not Detected St Y.enterocolitica PCR Not Detected Stool Vibrio (PCR) Not Detected Stl Vibrio cholerae PCR Not Detected Stl Norovirus GI/GII PCR Not Detected C. difficile Tox B Gene POSITIVE A* C. difficile Toxin A&B Positive A* C. difficile Interpret SEE NOTE Microbiology Microbiology Results: Microbiology 10/21/24 04:02 Blood Culture - Preliminary Blood - Venous No growth after 24 hours. 10/21/24 03:57 Blood Culture - Preliminary Blood - Venous No growth after 24 hours. Assessment and Plan (1) Stasis dermatitis of both legs: Status: Acute (2) Clostridioides difficile diarrhea: Status: Acute Plan Patient is a 49-year-old female with a past medical history significant for COPD, lupus, CVA (2013) and peripheral arterial disease on Eliquis and statin, fibromyalgia, hypothyroidism with chronic leg edema, who presented to the ED due to increased right lower extremity edema for the past month, worse over the past few days, cough and diarrhea. sepsis secondary to diarrhea from recurrent c diff +ve for C.Diff tox PO Vancomycin contact precautions monitor CBC and BMP bilateral chronic venous stasis venous dopplar RLE -stella for DVT On eliquis, continue Amoniium lactate lotion erythema/swelling L eye and hands likely related to Lupus, hx similar reactions in the past hx CVA/PAD, continue eliquis and statin COPD, unspecified, lung sounds normal, no acute exacerbation hypothyroidism, continue levothyroxine smoker, cessation discussed, nicotine patch full code VTE prophy: eliquis sepsis secondary to recurrent c diff requiring admission for overnight for treatment pending resolution of diarrhea Quality Stroke Does the patient have a stroke diagnosis?: No VTE Prior VTE?: No VTE Risk Level:: Medical - moderate - high VTE Device Contraindication: Treatment Not Tolerated VTE Drug Contraindication: N/A - Med Ordered
[2024-10-22] MEDS: ondansetron HCL 4 MG/2 ML VIAL IVPUSH ×2 (14:40→22:40)
[2024-10-22 15:23] VITALS: BP 111/66; PULSE 94; RESP 16; TEMP 36.9; O2SAT 97
--- NOTE | 2024-10-22 16:04 | MHC.CM.PN ---
PATIENT LIVES AT HOME W/ ADULT CHILDREN HAS A DAILY ANALYTICAL CONSULTANT 2-3 HRS/DAY. PRIMARILY USES W/C, [facility] FOR TRANSFERS AND SHORT DISTANCES. PCP [facility] [place] ATTENDANT HCP ON FILE AND VERIFIED. DP: PENDING PT EVAL, [facility] W/ SERVICES, [facility] FOLLOWING PER PATIENT PREFERENCE. FAMILY TO TRANSPORT.
--- NOTE | 2024-10-22 18:38 | PC.NURSE ---
isolation precautions maintained. pt 1a OOB to commode. md informed pt continued to have loose stools, c/o nausea and did not feel safe to be d/c'ed today. Per MD will reassess tomorrow. pt c/o headache. prn pain med given w/ + effect.
[2024-10-22 19:26] VITALS: BP 131/71; PULSE 93; RESP 16; TEMP 36.6; O2SAT 96
[2024-10-22] MEDS: Hydroxychloroquine Sulfate 200 MG TABLET PO (20:02)
[2024-10-22] MEDS: sulfaSALAzine 500 MG TABLET 1000 MG PO (20:03)
[2024-10-22] MEDS: Pravastatin Sodium 40 MG TABLET PO (20:03)
[2024-10-22] MEDS: Nortriptyline HCl 25 MG CAPSULE 75 MG PO (20:03)
[2024-10-22] MEDS: Ammonium Lactate 12 % Lotion 226 GM BOTTLE 1 APPL TOPICAL (22:40)
[2024-10-22] MEDS: LORazepam 1 MG TABLET PO (22:43)
[2024-10-22] MEDS: Acetaminophen 325 MG TABLET 650 MG PO (22:46)
[2024-10-22] MEDS: 0.9 % Sodium Chloride Flush 3 ML SYRINGE IVFLUSH (22:54)
[2024-10-23] MEDS: vancomycin HCL 125 MG CAPSULE PO ×3 (02:38→13:34)
[2024-10-23 03:57] VITALS: BP 115/62; PULSE 92; RESP 18; TEMP 36.6; O2SAT 97
[2024-10-23] MEDS: Levothyroxine Sodium 175 MCG TABLET PO (05:36)
[2024-10-23 06:33] LABS: Anion Gap 8 (12-20); Blood Urea Nitrogen 12 mg/dL (9-16); Carbon Dioxide 23 mmol/L (22-29); Chloride 108 mmol/L (96-108); Creatinine Clr Calc Pharmacy 81.9; Estimated Glomerular Filt Rate > 60; Glucose Random 85 mg/dL (60-115); Potassium 3.9 mmol/L (3.3-5.1); Sodium 135 mmol/L (135-145)
[2024-10-23 07:06] LABS: Basophils Absolute Auto 0.1 X10*3/uL (0.0-0.2); Basophils Percent Auto 0.7 % (0-2); Eosinophils Absolute Auto 0.6 X10*3/uL (0.0-0.4); Eosinophils Percent Auto 3.2 % (0-4); Hematocrit 35.8 % (37.0-47.0); Hemoglobin 11.3 g/dl (12.0-16.0); Imm Gran Pct Auto 1.2 % (0.0-0.4); Lymphocytes Absolute Auto 2.9 X10*3/uL (1.2-4.9); Lymphocytes Percent Auto 16.9 % (20-40); Mean Corpuscular HGB Conc 31.6 g/dl (31.0-35.0); Mean Corpuscular Volume 82.3 fL (80.0-98.0); Mean Platelet Volume 9.3 fL (9.4-12.3); Monocytes Absolute Auto 1.7 X10*3/uL (0.1-1.2); Monocytes Percent Auto 9.7 % (2-11); Neutrophils Absolute Auto 11.6 x10*3/uL (2.0-8.3); Neutrophils Percent Auto 68.3 % (45-73); Platelet Count 184 X10*3/uL (160-400); Red Blood Count 4.35 X10*6/uL (4.20-5.50); Red Cell Distribution Width 15.5 % (11.0-16.0); SCAN SMEAR FLAG 1; White Blood Count 17.1 X10*3/uL (4.8-10.8)
[2024-10-23 07:17] LABS: MANUAL DIFF FLAG NO
[2024-10-23] MEDS: Nicotine 21 MG PATCH.TD24 TRANSDERMA (07:54)
[2024-10-23] MEDS: buPROPion HCl XL 150 MG TAB.ER.24H PO (07:55)
[2024-10-23] MEDS: Cholecalciferol (Vitamin D3) 25 MCG TABLET 50 MCG PO (07:55)
[2024-10-23] MEDS: FLUoxetine HCl 20 MG CAPSULE 40 MG PO (07:55)
[2024-10-23] MEDS: sulfaSALAzine 500 MG TABLET PO (07:55)
[2024-10-23] MEDS: Folic Acid 1 MG TABLET PO (07:56)
[2024-10-23] MEDS: Hydroxychloroquine Sulfate 200 MG TABLET 100 MG PO (07:56)
[2024-10-23] MEDS: Ferrous Sulfate 324 MG TABLET.DR PO (07:56)
[2024-10-23] MEDS: Multivitamin TABLET 1 TAB PO (07:56)
[2024-10-23] MEDS: Famotidine 20 MG TABLET PO (07:56)
[2024-10-23] MEDS: Loratadine 10 MG TABLET PO (07:56)
[2024-10-23] MEDS: Apixaban 5 MG TABLET PO (07:56)
[2024-10-23] MEDS: Albuterol Sulfate 90 MCG 8 GM INHALER 2 PUFF INHALE (07:57)
[2024-10-23] MEDS: 0.9 % Sodium Chloride Flush 3 ML SYRINGE IVFLUSH (07:57)
[2024-10-23] MEDS: predniSONE 5 MG TABLET PO (07:57)
[2024-10-23] MEDS: Ammonium Lactate 12 % Lotion 226 GM BOTTLE 1 APPL TOPICAL (07:58)
[2024-10-23 08:09] VITALS: BP 106/56; PULSE 89; RESP 18; TEMP 36.1; O2SAT 93
[2024-10-23] MEDS: Fluticasone/Vilanterol 200/25 BLST.W.DEV 1 PUFF INHALE (08:16)
[2024-10-23] MEDS: Tiotropium Bromide 2.5 mcg 1 PUFF/2.5 MCG MIST.INHAL INHALE (08:16)
[2024-10-23 08:24] VITALS: PULSE 97; RESP 16; O2SAT 93
--- NOTE | 2024-10-23 12:25 | P.DS_ITS ---
DS: Providers Provider Date of Service: 10/23/24 Date of admission: 10/21/24 05:33 Date of discharge: 10/23/24 Primary care physician: Sylvia Hicks CNP Attending physician on discharge: Richard Garner Discharging clinician: Tish Ospina DS: Diagnosis Discharge Diagnosis (1) Stasis dermatitis of both legs: Status: Acute (2) Clostridioides difficile diarrhea: Status: Acute DS: Summary Hospital Course Hospital Course: Admission note HPI Patient is a 49-year-old female with a past medical history significant for COPD, lupus, CVA (2013) and peripheral arterial disease on Eliquis and statin, fibromyalgia, hypothyroidism with chronic leg edema, who presented to the ED due to increased right lower extremity edema for the past month, worse over the past few days, cough and diarrhea. She reports chronic lower extremity edema with recurrent episodes of cellulitis usually in the right lower extremity. Is painful to touch. She also has swelling and erythema around the left eye and on the hands, this can be consistent with her lupus however not as significant in the past. She also describes a productive cough with yellow sputum, no fever b ut chills. She is also having some diarrhea which she reports feels similar to C diff that she has had in the past. It occurs every time she eats since she has abdominal cramping and nausea. Is very loose stool without any blood and it is not malodorous as it was in the past with her C diff infections. Hospital course The patient was admitted to the hospital for evaluation of Diarrhea. found to be septic. Concern was over cellulitis vs recurrent C.Diff. Started on IV antiibotics of vancomycin and Ceftriaxone. Testing for C.Diff came back positive for toxin and she was switched to oral Vancomycin with good response as diarrhea resolved. blood cultures remained negative. She refused PT therapy. Noted to have erythema in bilateral lower extremities with dry skin representing stasis dermatitis. improved with leg elevated and Ammonium lactate lotion which she will be discharged home with as venous doppler RLE negative for DVT but showed small popliteal fossa cyst; likely small nogueira cyst. no tenderness noted. Reported erythema/swelling L eye and hands likely related to history of Lupus as she had similar reactions in the past. seems to improve while inpatient as well. Discharge plan Oral Vancomycin for C.Diff infection for two weeks. will need follow up with ID as outpatient who will decide if po vanco needs to be extended. Lower extremities dryness; use Lotion and keep them moist pt requested to be discharged home. was seen by Physical therapy, declined short-term rehab recommended home with physical therapy services. Time Attestation Discharge Coordination Time (in mins): 36 Quality: Safe Use of Opioids Does Pt have an Active Cancer Diagnosis on the Problem List?: No Quality: Stroke Does the patient have a stroke diagnosis?: No Physical Exam Vital Signs: Vital Signs: Last Vital Signs Temp 97.0 F 10/23/24 08:09 Pulse 97 10/23/24 08:24 Resp 16 10/23/24 08:24 BP 106/56 L 10/23/24 08:09 Pulse Ox 93 10/23/24 08:09 O2 Del Method Room Air 10/23/24 08:09 BMI result Body Mass Index 24.6 Const: General: cooperative, comfortable, alert and awake Nutritional Appearance: average body habitus Orientation/consciousness: patient oriented x3 Resp: Effort & Inspection: normal respiratory effort, able to speak in complete sentences, no respiratory distress and no use of accessory muscles Cardio: Rate: regular rate GI: Inspection: No distended Palpation (GI): Soft to palpation and nontender Neuro: General: patient oriented x3, moves all extremities and CN's II-XI intact bilaterally Extrem: Other: venous stasis skin changes, no erythema DS: Data Data Completed and Pending Completed studies during hospitalization [Text1]: Procedures Assistance with Respiratory Ventilation, Less than 24 Consecutive Hours, Continuous Positive Airway Pressure (11/25/21) Drainage of Right Elbow Bursa and Ligament, Open Approach (11/08/22) Excision of Left Lower Leg Subcutaneous Tissue and Fascia, Open Approach, Diagnostic (08/31/20) Insertion of Endotracheal Airway into Trachea, Via Natural or Artificial Opening Endoscopic (11/25/21) Insertion of Infusion Device into Superior Vena Cava, Percutaneous Approach (10/26/23) Introduction of Baricitinib into Mouth and Pharynx, External Approach, [employer] 6 (11/25/21) Introduction of Remdesivir Anti-infective into Peripheral Vein, Percutaneous Approach, [employer] 5 (11/25/21) Introduction of Vasopressor into Peripheral Vein, Percutaneous Approach (11/25/21) Respiratory Ventilation, 24-96 Consecutive Hours (11/25/21) Respiratory Ventilation, Greater than 96 Consecutive Hours (11/25/21) Transfusion of Nonautologous Red Blood Cells into Peripheral Vein, Percutaneous Approach (11/25/21) Ultrasonography of Superior Vena Cava, Guidance (10/26/23) Labs on day of discharge: Laboratory Results - last 24 hr 10/23/24 05:36 WBC 17.1 H RBC 4.35 Hgb 11.3 L Hct 35.8 L MCV 82.3 MCH 26.0 L MCHC 31.6 RDW 15.5 Plt Count 184 MPV 9.3 L Immature Gran % (Auto) 1.2 H Neut % (Auto) 68.3 Lymph % (Auto) 16.9 L [place] % (Auto) 9.7 Eos % (Auto) 3.2 Baso % (Auto) 0.7 Lymph # (Auto) 2.9 [place] # (Auto) 1.7 H Eos # (Auto) 0.6 H Baso # (Auto) 0.1 Abs Immat Gran (auto) 0.20 H Absolute Neuts (auto) 11.6 H Absolute Nucleated RBC 0.000 Nucleated RBC % (auto) 0.0 Sodium 135 Potassium 3.9 D Chloride 108 Carbon Dioxide 23 Anion Gap 8 L BUN 12 Creatinine 0.70 Estim Creat Clear Calc 81.9 Estimated GFR > 60 Random Glucose 85 Calcium 7.0 L Preliminary micro results at discharge 10/21/24 04:02 Blood Culture - Preliminary Blood - Venous No growth after 48 hours. 10/21/24 03:57 Blood Culture - Preliminary Blood - Venous No growth after 48 hours. Discharge Plan Discharge Anticipated Discharge Date/Time: 10/23/24 12:31 Patient Disposition: Home Health Service Discharge Diagnosis: C.Diff infection Referrals: Mireya GOODMAN [Outside] - 3-5 Days (Mireya GOODMAN will call you to schedule physical therapy appts) Karen Tabor MD [Physician] - 1 Week Sylvia Hicks CNP [Primary Care Provider] - 1 Week Discharge Medications: New ammonium lactate 12 % Lotion 1 appl topical BID Qty: 225 0RF Protocol: Apply to: Apply to: lower extremities vancomycin 125 mg Capsule 125 mg PO Q6H 14 Days Qty: 56 0RF Continued bupropion HCl 100 mg tablet sustained-release 12 hr 100 mg PO BID albuterol sulfate 90 mcg/actuation HFA aerosol inhaler 2 puff inhalation Q6H PRN (Reason: Shortness Of Breath Or Wheezing) loratadine 10 mg Tablet 10 mg PO DAILY fluoxetine 20 mg capsule 2 cap PO DAILY famotidine 20 mg tablet 1 tab PO DAILY lcfmoafeah-tuwenbkgeyklr-fvhc 50-325-40 mg tablet 2 tab PO DAILY PRN (Reason: headache) ferrous sulfate [FeroSul] 325 mg (65 mg iron) tablet 1 tab PO DAILY Spiriva Respimat 2.5 mcg/actuation mist 1 puff INHALATION DAILY multivitamin [One Daily Multivitamin] Tablet 1 tab PO DAILY folic acid 1 mg tablet 1 mg PO DAILY Eliquis 5 mg tablet 5 mg PO BID lorazepam 1 mg tablet 1 mg PO DAILY PRN (Reason: anxiety) acetaminophen [Tylenol] 325 mg Tablet 650 mg PO Q6H PRN (Reason: Pain) hydroxychloroquine 200 mg tablet 100 mg PO DAILY@0800 levothyroxine 175 mcg Tablet 175 mcg PO DAILY hydroxychloroquine 200 mg Tablet 200 mg PO DAILY@2000 sulfasalazine 500 mg tablet 1,000 mg PO DAILY@2000 prednisone 5 mg tablet 5 mg PO DAILY sulfasalazine 500 mg tablet 500 mg PO DAILY@0800 lidocaine 5 % adhesive patch,medicated 2 patch topical DAILY PRN (Reason: pain) nortriptyline 75 mg capsule 75 mg PO BEDTIME pravastatin 40 mg tablet 40 mg PO BEDTIME (DME) nebulizer and compressor [SynapSenseos Aerosol Delivery System] Device See Rx Instructions .ROUTE DIRECTED Qty: 1 Rx Instructions: As directed fluticasone propion-salmeterol [Advair HFA] 230-21 mcg/actuation HFA aerosol inhaler 2 puff inhalation BID 30 Days Qty: 12 5RF Rx Instructions: administer with spacer (DME) Aerovent Plus Spacer See Rx Instructions .Route Qty: 10 0RF Rx Instructions: As directed cholecalciferol (vitamin D3) 50 mcg (2,000 unit) capsule 50 mcg PO DAILY Qty: 90 1RF Discharge Orders: Discharge Order (Routine); Ordered 10/23/24 Ordered By: Tish Ospina Diet: Advance to usual diet Activity on Discharge: As tolerated Stand Alone Forms: Patient Portal Discharge page Print Language: Swedish Care Plan Goals: Oral Vancomycin for C.Diff infection Physical therapy as tolerated Lower extremities dryness; use Lotion and keep them moist Health Concerns: C.Diff infection Plan of Treatment: Oral Vancomycin as ordered call to schedule follow up appointment with Infectious diseases to determine if length of vancomycin treatment needs to be extended Call to schedule follow-up appointment with PCP Assessment: as above
[2024-10-23 13:00] VITALS: PULSE 97
--- NOTE | 2024-10-23 13:32 | P.F2F_ITS ---
Service Date Service Date: 10/23/24 Encounter Date of encounter: 10/23/24 Reasons for Services Signs and symptoms assessed: generalized weakness, poor posture, impaired gait patter, deconditioning, weakness Reason for physical therapy: home safety and mobility and therapeutic exercises Overseeing Care: Sylvia Hicks Homebound: Leaving the home is medically contraindicated at this time without the asist of a device and/or another person due th the listed conditions above and below. Reason homebound: unsteady gait / fall risk Certification: Based on the above findings, I certify that this patient is confined to the home and needs intermittent [facility] care, physical therapy and/or speech therapy, or continues to need occupational therapy. The patient is under my care, and I have initiated the establishment of the plan of care. The patient will be followed by a physician who will periodically review the plan of care. Time Spent With Patient Time: Total time managing care of this patient today ____ minutes.
--- NOTE | 2024-10-23 13:55 | MHC.CM.PN ---
Patient medically cleared for dc home w/ resumption of [facility] services and new [facility] for PT services. Patient's SENIOR GL ACCOUNTANT will provide transport home at 230 pm. RN aware.
== END 2024-10-23 15:26 | disposition home health service (06) | DRG 720 ==
LOC: HO.ED 03:14 → HO.EDOVER 05:39 → HO.S3 06:39
PROVIDERS: Admitting Provider Physician Assistant; Emergency Provider Internal Medicine; PCP Nurse Practitioner Family; Visit Provider Physician Assistant Medical
DX: A41.4 Sepsis due to anaerobes (principal); A04.71 Enterocolitis due to Clostridium difficile, recurrent; M32.9 Systemic lupus erythematosus, unspecified; E03.9 Hypothyroidism, unspecified; I87.323 Chronic venous hypertension (idiopathic) with inflammation of bilateral lower extremity; F17.210 Nicotine dependence, cigarettes, uncomplicated; J44.9 Chronic obstructive pulmonary disease, unspecified; I73.9 Peripheral vascular disease, unspecified; Z71.6 Tobacco abuse counseling; Z86.73 Personal history of transient ischemic attack (TIA), and cerebral infarction without residual deficits; Z79.51 Long term (current) use of inhaled steroids; Z79.890 Hormone replacement therapy; Z79.52 Long term (current) use of systemic steroids; Z79.899 Other long term (current) drug therapy
CPT/HCPCS: 0241U; 36415; 71045; 80048; 80053; 83605; 85025; 87040; 87324; 87493; 87507; 93971; 94640; 97161; 99285; J0696; J2405; J3370; J3480

== ENCOUNTER → 2024-10-21 05:33 | Outpatient (BNV) | payer OTHER, SELFPAY | PROVIDERS: Admitting Provider Physician Assistant; Emergency Provider Internal Medicine; PCP Nurse Practitioner Family; Visit Provider Physician Assistant | DX: I87.2 Venous insufficiency (chronic) (peripheral) (principal); A04.72 Enterocolitis due to Clostridium difficile, not specified as recurrent | CPT/HCPCS: 99232; 99239; G0180 ==

== ENCOUNTER 2024-10-24 22:01 | Emergency (ER) | payer OTHER, SELFPAY ==
[2024-10-24 22:20] VITALS: BP 116/71; PULSE 103; RESP 20; TEMP 37.1; O2SAT 91; BMI 28.3
--- NOTE | 2024-10-25 01:47 | ED_ITS ---
HPI - General Adult General Chief complaint: General Medical Stated complaint: facial, leg swelling, nausea,diarrhea Time Seen by Provider: 10/25/24 01:45 Source: patient Mode of arrival: EMS Limitations: no limitations History of Present Illness ED Provider: HPI narrative: Patient is 49 years old with history of COPD lupus CVA peripheral artery disease on Eliquis on statin with fibromyalgia chronic lymphedema with recurrent cellulitis just admitted on 10/21 discharge 10/23 for C diff colitis on p.o. vancomycin comes back today as he feels that her right leg is swelling again with increased redness Related Data Home Medications ?Medication ?Instructions ?Recorded ?Confirmed pravastatin 40 mg tablet 40 mg PO BEDTIME 08/15/20 10/21/24 albuterol sulfate 90 mcg/actuation 2 puff inhalation Q6H PRN 08/31/20 10/21/24 aerosol inhaler Shortness Of Breath Or Wheezing bupropion HCl 100 mg tablet,12 hr 100 mg PO BID 08/31/20 10/21/24 sustained-release nortriptyline 75 mg capsule 75 mg PO BEDTIME 04/18/21 10/21/24 loratadine 10 mg tablet 10 mg PO DAILY allergies 10/21/21 10/21/24 nebulizer and compressor (Vios #1 ea 02/15/22 07/21/24 Aerosol Delivery System) famotidine 20 mg tablet 1 tab PO DAILY 05/24/22 10/21/24 cicvjzhlxs-hejpcvklpkvqs-hxerqobs 2 tab PO DAILY PRN headache 11/08/22 10/21/24 50 mg-325 mg-40 mg tablet ferrous sulfate 325 mg (65 mg 1 tab PO DAILY 11/08/22 10/21/24 iron) tablet (FeroSul) tiotropium bromide 2.5 1 puff inhalation DAILY 11/08/22 10/21/24 mcg/actuation mist for inhalation (Spiriva Respimat) fluoxetine 20 mg capsule 2 cap PO DAILY 12/27/22 10/21/24 apixaban 5 mg tablet (Eliquis) 5 mg PO BID 01/03/23 10/21/24 folic acid 1 mg tablet 1 mg PO DAILY 01/03/23 10/21/24 multivitamin (One Daily 1 tab PO DAILY 01/03/23 10/21/24 Multivitamin tablet) lorazepam 1 mg tablet 1 mg PO DAILY PRN anxiety 04/24/24 10/21/24 acetaminophen 325 mg tablet 650 mg PO Q6H PRN Pain 06/13/24 10/21/24 (Tylenol) hydroxychloroquine 200 mg tablet 100 mg PO DAILY@0810/21/24 10/21/24 hydroxychloroquine 200 mg tablet 200 mg PO DAILY@199910/21/24 10/21/24 levothyroxine 175 mcg tablet 175 mcg PO DAILY 10/21/24 10/21/24 lidocaine 5 % topical patch 2 patch topical DAILY PRN pain 10/21/24 10/21/24 prednisone 5 mg tablet 5 mg PO DAILY 10/21/24 10/21/24 sulfasalazine 500 mg tablet 1,000 mg PO DAILY@199910/21/24 10/21/24 sulfasalazine 500 mg tablet 500 mg PO DAILY@0810/21/24 10/21/24 Previous Rx's ?Medication ?Instructions ?Recorded fluticasone propionate 230 2 puff inhalation BID copd 30 days 06/04/24 mcg-salmeterol 21 mcg/actuation #12 grams HFA inhaler (Advair HFA) inhalational spacing device #10 ea 06/04/24 (Aerovent Plus spacer) cholecalciferol (vitamin D3) 50 50 mcg PO DAILY #90 caps 08/19/24 mcg (2,000 unit) capsule ammonium lactate 12 % lotion 1 appl topical BID #225 grams 10/22/24 vancomycin 125 mg capsule 125 mg PO Q6H 14 days #56 caps 10/22/24 doxycycline hyclate 100 mg tablet 100 mg PO BID #20 tabs 10/25/24 Allergies Allergy/AdvReac Type Severity Reaction Status Date / Time clarithromycin Allergy Intermediate FACIAL Verified 10/24/24 22:22 [CLARITHROMYCIN] SWELLING/REDNESS, facial rash, facial rash, facial rash, facial rash Review of Systems 2 Review of Systems: Yes all other systems are reviewed and are negative PMFSH Past Medical History Medical History Sepsis Depression Anxiety Kidney disease Headache Swelling Arthritis Hx of blood clots Sinusitis Asthma Stasis dermatitis Bilateral lower leg cellulitis Cellulitis COPD (chronic obstructive pulmonary disease) Lung density on x-ray Smoker COPD (chronic obstructive pulmonary disease) with acute bronchitis Bilateral pneumonia Tobacco abuse C. difficile colitis Community acquired pneumonia Bilateral pneumonia Open wound of right elbow Respiratory failure with hypoxia Pneumonia due to COVID-19 virus Acute respiratory distress syndrome (ARDS) due to COVID-19 virus Acute exacerbation of chronic obstructive airways disease Acute hypoxemic respiratory failure due to COVID-19 Ulcer of lower extremity Sepsis with acute hypoxic respiratory failure without septic shock Encounter for testing for latent tuberculosis infection Falling Charcot's joint of foot Cellulitis Redness and swelling of lower leg C. difficile colitis Secondary bacterial pneumonia Immunosuppression due to chronic steroid use Mixed connective tissue disease Cellulitis of right leg PAD (peripheral artery disease) Varicose veins of right lower extremity with inflammation Rheumatoid arthritis Cellulitis CVA (cerebral vascular accident) Proteinuria Fibromyalgia Hypothyroid Lupus Surgical History Status post incision and drainage History of breast lump/mass excision History of excision of mass History of partial hysterectomy History of cholecystectomy History of bunionectomy Family History Family History Father No problems noted. Mother Lung cancer Rheumatoid arthritis Social History Social History Household Members: Family Household Members Other:: My twin sons Housing: House Housing Other:: second floor Do you presently have visiting nurse or other home services: No Alcohol intake: former Comment: pt asleep Patient Tobacco Use Status: Current everyday Tobacco user Tobacco use type: Cigarette Cigarette Packs Per Day: 1 Cigarettes Per Day: 20.0 Years Smoked: 30 Second Hand Smoke Exposure: No Substance Use Type: Marijuana Advance Directives: Yes Advance Directives on File: Yes Advance Directives Date on File: 11/26/21 Do you have a plan to hurt others: No Plan service: No Current occupational status: unemployed and disabled Current occupation: right hand dominant Cognitive needs: No Hearing needs: No Vision needs: Yes Physical Exam ED Vital Signs: Vital Signs - 24 hr 10/24/24 22:20 Temperature 98.8 F Pulse Rate 103 H Respiratory Rate 20 Blood Pressure 116/71 Pulse Oximetry 91 L Oxygen Delivery Method Room Air BMI result Body Mass Index 28.3 Appearance: Alert. Oriented X3. No acute distress. Eyes: PERRLA, No Nystagmus ENT: Pharynx normal. Oral Mucosa moist Neck: Normal inspection. Neck supple. CVS: Normal heart rate and rhythm. Pulses normal. Respiratory: No respiratory distress. Equal air entry bilateral, no wheezing/rales/rhonchi Abdomen: Soft and nontender. Bowel sounds are present, no mass palpable, no CVA tenderness Skin: Skin warm and dry. Normal skin color. Normal skin turgor. Extremities: Bilateral lymphedema right leg more than left with warmth and erythema of the right calf Neuro: Oriented X 3. Limited mobility of lower extremity Medications Administered Discontinued Medications Generic Name Dose Route Start Last Admin Trade Name Freq PRN Reason Stop Dose Admin Doxycycline Monohydrate 100 mg 10/25/24 03:42 10/25/24 04:53 Doxycycline Monohydrate 100 Mg Capsule PO 10/25/24 03:43 100 mg ONCE ONE Administration Medical Decision Making Lab Data 10/25/24 02:15 10/25/24 02:15 Labs: Lab Results 10/25/24 Range/Units 02:15 WBC 19.2 H (4.8-10.8) X10*3/uL RBC 4.55 (4.20-5.50) X10*6/uL Hgb 12.1 (12.0-16.0) g/dl Hct 36.8 L (37.0-47.0) % MCV 80.9 (80.0-98.0) fL MCH 26.6 L (27.0-33.0) pg MCHC 32.9 (31.0-35.0) g/dl RDW 15.2 (11.0-16.0) % Plt Count 198 (160-400) X10*3/uL MPV 8.4 L (9.4-12.3) fL Immature Gran % (Auto) 1.5 H (0.0-0.4) % Neut % (Auto) 74.5 H (45-73) % Lymph % (Auto) 12.7 L (20-40) % [place] % (Auto) 8.5 (2-11) % Eos % (Auto) 2.2 (0-4) % Baso % (Auto) 0.6 (0-2) % Lymph # (Auto) 2.5 (1.2-4.9) X10*3/uL [place] # (Auto) 1.6 H (0.1-1.2) X10*3/uL Eos # (Auto) 0.4 (0.0-0.4) X10*3/uL Baso # (Auto) 0.1 (0.0-0.2) X10*3/uL Abs Immat Gran (auto) 0.28 H (0.00-0.03) X10*3/uL Absolute Neuts (auto) 14.3 H (2.0-8.3) x10*3/uL Absolute Nucleated RBC 0.000 (0.0-0.012) X10*3/uL Nucleated RBC % (auto) 0.0 (0.0-0.2) /100WBC Smear Tech's Comments VERIFIED Sodium 139 (135-145) mmol/L Potassium 3.3 (3.3-5.1) mmol/L Chloride 107 (96-108) mmol/L Carbon Dioxide 27 (22-29) mmol/L Anion Gap 8 L (12-20) BUN 11 (9-16) mg/dL Creatinine 0.63 (0.5-1.4) mg/dL Estim Creat Clear Calc 97.4 Estimated GFR > 60 Random Glucose 98 (60-115) mg/dL Lactic Acid 1.1 (0.5-2.0) mmol/L Calcium 7.4 L (8.4-10.2) mg/dL Total Bilirubin 0.1 (0.0-1.0) mg/dL AST 31 (5-31) U/L ALT 18 (0-31) U/L Alkaline Phosphatase 149 H (39-117) U/L Total Protein 3.7 L (6.5-8.0) g/dL Albumin 1.5 L (3.5-5.0) g/dL Discharge Plan Discharge Clinical Impression: Cellulitis Patient Disposition: Home, Self-Care Instructions: Cellulitis (ED) Additional Instructions: Continue antibiotic as prescribed for right leg cellulitis Keep the legs elevated Follow up with your PCP if not better Prescriptions: New doxycycline hyclate 100 mg tablet 100 mg PO BID Qty: 20 0RF No Action bupropion HCl 100 mg tablet sustained-release 12 hr 100 mg PO BID albuterol sulfate 90 mcg/actuation HFA aerosol inhaler 2 puff inhalation Q6H PRN (Reason: Shortness Of Breath Or Wheezing) loratadine 10 mg Tablet 10 mg PO DAILY fluoxetine 20 mg capsule 2 cap PO DAILY famotidine 20 mg tablet 1 tab PO DAILY zhyygsfghd-zqkooairqqiqx-wjzh 50-325-40 mg tablet 2 tab PO DAILY PRN (Reason: headache) ferrous sulfate [FeroSul] 325 mg (65 mg iron) tablet 1 tab PO DAILY Spiriva Respimat 2.5 mcg/actuation mist 1 puff INHALATION DAILY multivitamin [One Daily Multivitamin] Tablet 1 tab PO DAILY folic acid 1 mg tablet 1 mg PO DAILY Eliquis 5 mg tablet 5 mg PO BID lorazepam 1 mg tablet 1 mg PO DAILY PRN (Reason: anxiety) acetaminophen [Tylenol] 325 mg Tablet 650 mg PO Q6H PRN (Reason: Pain) hydroxychloroquine 200 mg tablet 100 mg PO DAILY@0800 levothyroxine 175 mcg Tablet 175 mcg PO DAILY hydroxychloroquine 200 mg Tablet 200 mg PO DAILY@2000 sulfasalazine 500 mg tablet 1,000 mg PO DAILY@2000 prednisone 5 mg tablet 5 mg PO DAILY sulfasalazine 500 mg tablet 500 mg PO DAILY@0800 lidocaine 5 % adhesive patch,medicated 2 patch topical DAILY PRN (Reason: pain) ammonium lactate 12 % Lotion 1 appl topical BID Qty: 225 0RF Protocol: Apply to: Apply to: lower extremities vancomycin 125 mg Capsule 125 mg PO Q6H 14 Days Qty: 56 0RF nortriptyline 75 mg capsule 75 mg PO BEDTIME pravastatin 40 mg tablet 40 mg PO BEDTIME (DME) nebulizer and compressor [Vios Aerosol Delivery System] Device See Rx Instructions .ROUTE DIRECTED Qty: 1 Rx Instructions: As directed fluticasone propion-salmeterol [Advair HFA] 230-21 mcg/actuation HFA aerosol inhaler 2 puff inhalation BID 30 Days Qty: 12 5RF Rx Instructions: administer with spacer (DME) Aerovent Plus Spacer See Rx Instructions .Route Qty: 10 0RF Rx Instructions: As directed cholecalciferol (vitamin D3) 50 mcg (2,000 unit) capsule 50 mcg PO DAILY Qty: 90 1RF Interventions: ED Discharge Assessment Last Done: 10/25/24 04:54 Discharge Date/Time: 10/25/24 04:55 Print Language: Samoan
[2024-10-25 02:24] LABS: Basophils Absolute Auto 0.1 X10*3/uL (0.0-0.2); Basophils Percent Auto 0.6 % (0-2); Eosinophils Absolute Auto 0.4 X10*3/uL (0.0-0.4); Eosinophils Percent Auto 2.2 % (0-4); Hematocrit 36.8 % (37.0-47.0); Hemoglobin 12.1 g/dl (12.0-16.0); Imm Gran Abs Auto 0.28 X10*3/uL (0.00-0.03); Imm Gran Pct Auto 1.5 % (0.0-0.4); Lymphocytes Absolute Auto 2.5 X10*3/uL (1.2-4.9); Lymphocytes Percent Auto 12.7 % (20-40); MANUAL DIFF FLAG SCAN; Mean Corpuscular HGB Conc 32.9 g/dl (31.0-35.0); Mean Corpuscular Hemoglobin 26.6 pg (27.0-33.0); Mean Corpuscular Volume 80.9 fL (80.0-98.0); Mean Platelet Volume 8.4 fL (9.4-12.3); Monocytes Absolute Auto 1.6 X10*3/uL (0.1-1.2); Monocytes Percent Auto 8.5 % (2-11); Neutrophils Absolute Auto 14.3 x10*3/uL (2.0-8.3); Neutrophils Percent Auto 74.5 % (45-73); Platelet Count 198 X10*3/uL (160-400); Red Blood Count 4.55 X10*6/uL (4.20-5.50); Red Cell Distribution Width 15.2 % (11.0-16.0); SCAN SMEAR FLAG 1; White Blood Count 19.2 X10*3/uL (4.8-10.8)
[2024-10-25 02:50] LABS: Lactic Acid 1.1 mmol/L (0.5-2.0)
[2024-10-25 02:51] LABS: Alanine Aminotransferase 18 U/L (0-31); Albumin Level 1.5 g/dL (3.5-5.0); Alkaline Phosphatase 149 U/L (39-117); Anion Gap 8 (12-20); Aspartate Amino Transferase 31 U/L (5-31); Bilirubin Total 0.1 mg/dL (0.0-1.0); Blood Urea Nitrogen 11 mg/dL (9-16); Calcium 7.4 mg/dL (8.4-10.2); Carbon Dioxide 27 mmol/L (22-29); Chloride 107 mmol/L (96-108); Creatinine Clr Calc Pharmacy 97.4; Estimated Glomerular Filt Rate > 60; Glucose Random 98 mg/dL (60-115); Potassium 3.3 mmol/L (3.3-5.1); Sodium 139 mmol/L (135-145); Total Protein 3.7 g/dL (6.5-8.0)
[2024-10-25 03:16] LABS: SLIDE REVIEW VERIFIED
[2024-10-25 04:34] VITALS: BP 107/65; PULSE 89; RESP 16; TEMP 36.8; O2SAT 96
[2024-10-25] MEDS: Doxycycline Monohydrate 100 MG CAPSULE PO (04:53)
[2024-10-25 04:54] VITALS: BP 107/65; PULSE 89; RESP 16; TEMP 36.8; O2SAT 96
== END 2024-10-25 04:55 | disposition home or self-care (01) ==
PROVIDERS: Emergency Provider Internal Medicine; PCP Nurse Practitioner Family
DX: L03.115 Cellulitis of right lower limb (principal); Z86.73 Personal history of transient ischemic attack (TIA), and cerebral infarction without residual deficits; Z79.01 Long term (current) use of anticoagulants; Z79.899 Other long term (current) drug therapy; F17.210 Nicotine dependence, cigarettes, uncomplicated
CPT/HCPCS: 36415; 80053; 83605; 85025; 87040; 99283

== ENCOUNTER 2024-12-18 03:58 | Emergency (ER) | payer OTHER, SELFPAY ==
--- NOTE | ~2024-12-18 | XR_ITS ---
CLINICAL HISTORY: cough 1 view chest x-ray. Comparison: CR/SR - XR CHEST 1V - 10/21/24 03:23 EST Findings: No pneumothorax or effusion. Subtle interstitial opacities are redemonstrated within the bilateral lungs. Heart size normal. Multiple old bilateral rib fractures are redemonstrated. Impression: 1. Subtle nonspecific interstitial opacities redemonstrated within the bilateral lungs, not significantly changed in appearance as compared to the prior exam. This document has been electronically signed by: Jagdish Hadley MD on 12/18/2024 04:39:46
[2024-12-18 04:23] VITALS: BP 145/89; PULSE 109; RESP 22; TEMP 37; O2SAT 90; BMI 23.6
[2024-12-18 05:10] LABS: MANUAL DIFF FLAG NO
--- OUTSIDE RECORDS SUMMARY | 2024-12-18 05:10 | XMS_ITS | Encounter Summary ---
Author Organization [facility], Address [address] [place] [address] Phone Care Team Providers Care Computed Tomography Technician Name Role Phone Barbie Krueger MD Primary Care Prov ider Encounter Details Date Type Department Care Team (Late st Contact Info) Description 10/07/2024 Documentation Only [facility], [address] [place] [address] Amberly Mensah [address] [place] [phone] Social History Tobacco Use Types Packs/Day Years Used Date Smoking Tobacco: Every Day Cigarettes Alcohol Use Standard Drinks/Week Comments No 0 (1 standard drink = 0.6 oz pur e alcohol) Comments Unknown Sex and Gender Information Value Date Recorded Sex Assigned at Not on file Legal Sex Female 4:36 PM EST Gender Identity Not on file Sexual Orientation Not on file documented as of this encounter Plan of Treatment Not on file documented as of this encounter Visit Diagnoses Not on filedocumented in this encounter Care Teams Computed Tomography Technician Relationship Specialty Start Date End Date Barbie Krueger MD [address] [place] [phone] PCP - General 09/22/19 documented as of this encounter
--- OUTSIDE RECORDS SUMMARY | 2024-12-18 05:10 | XMS_ITS | Encounter Summary ---
Author Organization [facility], Address [address] [place] [address] Phone Care Team Providers Care Professor Of Chemical Engineering Name Role Phone Barbie Krueger MD Primary Care Prov ider Encounter Details Date Type Department Care Team (Late st Contact Info) Description 10/07/2024 Documentation Only [facility], [address] [place] [address] Amberly Mensah [address] [place] [phone] Social History Tobacco Use Types Packs/Day Years [...] on filedocumented in this encounter Care Teams Professor Of Chemical Engineering Relationship Specialty Start Date End Date Barbie Krueger MD [address] [place] [address] PCP - General 09/22/19 documented as of this encounter
--- OUTSIDE RECORDS SUMMARY | 2024-12-18 05:10 | XMS_ITS | Clinical Summary ---
Author Organization [facility], Address [address] [place] [address] [place] [address] Phone Care Team Providers Care Truckload Checker Name Role Phone Barbie Krueger MD Primary Care Prov ider Allergies Active Allergy Reactions Criticality Noted Date Comments Clarithromycin Other (see comments) 11/16/2022 Other reaction(s): facial swelling Erythromycin Other (see comments) 11/16/2022 Medications albuterol HFA (PROVENTIL HFA;VENTOLIN HFA) 108 (90 Base) MCG/ACT inhaler 0 Active buPROPion SR (WELLBUTRIN SR) 100 MG 12 hr tablet Take 100 mg by mouth 2 (two) times a day 0 Active butalbital-aceta minophen-caffein e (FIORICET, ESGIC) 50-325-40 MG per tablet TAKE 2 TABLETS EVERY DAY NEEDED FOR HEADACHE 0 Active cefuroxime (CEFTIN) 500 MG tablet TK 1 T PO Q 12 H FOR 10 DAYS 0 Active doxycycline (VIBRAMYCIN) 100 MG capsule TK ONE C PO BID FOR 10 DAYS 0 Active Ferrous Sulfate (Iron) 325 (65 Fe) MG tablet Take 1 tablet by mouth daily 0 Active fluconazole (DIFLUCAN) 150 MG tablet TAKE 1 TABLET BY MOUTH ONCE 0 Active FLUoxetine (PROzac) 20 MG capsule Take 40 mg by mouth 1 (one) time each day 0 Active Flovent HFA 220 MCG/ACT inhaler INHALE 1 PUFF BY MOUTH TWICE DAILY. RINSE MOUTH AFTER USING. 0 Active folic acid (FOLVITE) 1 MG tablet Take 1,000 mcg by mouth daily 0 Active hydroxychloroqui ne (PLAQUENIL) 200 MG tablet Take 200 mg by mouth 2 (two) times a day 0 Active levothyroxine (SYNTHROID, LEVOTHROID) 175 MCG tablet Take 1 tablet by mouth 1 (one) time each day Active lisinopril (PRINIVIL,ZESTRI L) 5 MG tablet Orally Once daily Active loratadine (CLARITIN REDITABS) 10 MG dispersible tablet Orally Once daily Active LORazepam (ATIVAN) 1 MG tablet TAKE 1 TABLET BY MOUTH TWICE DAILY NEEDED 0 Active methotrexate 2.5 MG tablet TAKE 8 TABLETS ONCE A WEEK 0 Active Multiple Vitamin (multivitamin) tablet Take 1 tablet by mouth daily 0 Active nortriptyline (PAMELOR) 50 MG capsule Take 50 mg by mouth every night 0 Active oxyCODONE (ROXICODONE) 15 MG immediate release tablet TK 1 T PO FID 0 Active pravastatin (PRAVACHOL) 40 MG tablet TAKE 1 TABLET EVERY DAY 0 Active amoxicillin-clav ulanate (AUGMENTIN) 875-125 MG per tablet TK 1 T PO BID 0 Active Eliquis 5 MG tablet 1 Active Santyl ointment APPLY TO AFFECTED AREA DIRECTED DAILY 0 Active doxycycline (VIBRA-TABS) 100 MG tablet TK 1 T PO BID 0 Active doxycycline (ADOXA) 100 MG tablet TK 1 T PO BID 0 Active levothyroxine (SYNTHROID, LEVOTHROID) 150 MCG tablet TAKE 1 TABLET EVERY DAY 0 Active Nicotrol 10 MG inhaler INHALE 1 CATRIDGE EVERY 1 TO 2 HOURS 6 TO 16 TIMES PER DAY. BEST IF CONTINUED PUFFING FOR 20 MINUTES. 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 Proteinuria 08/16/2020 Hyperlipidemia 08/16/2020 Resolved Problems Problem Noted Date Diagnosed Date Resolved Date Chronic nephritic syndrome 08/16/2020 0 03/17/2021 Encounters Date Type Department Care Team Description 10/14/2024 Telephone [facility] [address] [place] [address] Omar Mcginnis [place] 10/07/2024 Documentation Only [facility] [address] [place] [address] Makenna, Amberly 10/07/2024 Documentation Only [facility] [address] [place] [address] Makenna, Abmerly 10/07/2024 Documentation Only [facility] [address] [place] [address] Makenna, Amberly 10/07/2024 Documentation Only [facility] [address] [place] [address] Makenna, Amberly 10/07/2024 Documentation Only [facility] [address] [place] [address] Makenna, Ambrely 10/07/2024 Documentation Only [facility] [address] [place] [place] [address] Makenna, Amberly 10/07/2024 Documentation Only [facility] [address] [place] [address] Makenna, Amberly 10/07/2024 Documentation Only [facility] [address] [facility] [place] [address] Makenna, Amberly 10/07/2024 Documentation Only [facility] [address] [facility] [address] [place] [address] Makenna, Amberly 10/07/2024 Documentation Only [facility] [address] [address] [place] [address] Makenna, Amberly 10/07/2024 Documentation Only [facility] [address] [facility] [place] [address] Makenna, Amberly 10/07/2024 Documentation Only [facility] [address] [place] [place] [address] Makenna, Amberly 10/07/2024 Documentation Only [facility] [address] [address] [place] [address] Makenna, Amberly 10/07/2024 Documentation Only [facility] [address] [place] [address] Makenna, Amberly 10/07/2024 Documentation Only [facility] [address] [facility] [place] [address] Makenna, Amberly 10/07/2024 Documentation Only [facility] [address] [facility] [address] [place] [address] Makenna, Amberly 10/07/2024 Documentation Only [facility] [address] [place] [place] [address] Makenna, Amberly 10/07/2024 Documentation Only [facility] [address] [place] [place] [address] Makenna, Amberly 10/07/2024 Documentation Only [facility] [address] [place] [address] Amberly Mensah from Last 3 Months Immunizations Name Administration Dates Next Due Influenza Split High Dose Preservative Free IM 1 Family History Medical History Relation Comments Cancer Mother lung also grandm other/lung also grandmother kidney Heart disease Mother aunt Hypertension Mother aunt Kidney disease Mother grandmother Relation Status Comments Father Unknown Mother Social History Tobacco Use Types Packs/Day Years Used Date Smoking Tobacco: Every Day Cigarettes Alcohol Use Standard Drinks/Week Comments No 0 (1 standard drink = 0.6 oz pur e alcohol) Comments Unknown Sex and Gender Information Value Date Recorded Sex Assigned at Not on file Legal Sex Female 4:36 PM EST Gender Identity Not on file Sexual Orientation Not on file Last Filed Vital Signs Vital Sign Reading Time Taken Comments Blood Pressure 96/60 09/07/2019 12:00 PM EDT Pulse - - Temperature - - Respiratory Rate - - Oxygen Saturation - - Inhaled Oxygen Concentration - - Weight 75.8 kg (167 lb) 09/07/2019 12:00 PM EDT Height 154.9 cm (5' 1 ) 09/07/2019 12:00 PM EDT Body Mass Index 31.55 09/07/2019 12:00 PM EDT Plan of Treatment Health Maintenance Due Date Last Done Comments Pneumococcal Vaccine: Pediat rics (0 to 5 Years) and At-Risk Patients (6 to 64 Years) (1 of 2 - PCV) 1983 Hepatitis B Vaccine (1 of 3 - 19+ 3-dose series) 07/30 Influenza Vaccine (#1) 2024 08/31/2015 Insurance [facility] Care Teams Truckload Checker Relationship Specialty Start Date End Date Barbie Krueger MD [address] [place] [address] PCP - General 09/22/19
--- OUTSIDE RECORDS SUMMARY | 2024-12-18 05:10 | XMS_ITS | Encounter Summary ---
Author Organization [facility], Address [address] [place] [address] Phone Care Team Providers Care Cylinder Press Operator Helper Name Role Phone Barbie Krueger MD Primary Care Prov ider Reason for Visit * Reason Comments Med Refill Encounter Details Date Type Department Care Team (Late st Contact Info) Description 04/01/2024 Refill [facility], [address] [place] [address] Lukas Kam MD [address] [place] [phone] Social History Tobacco Use Types Packs/Day Years [...] on filedocumented in this encounter Care Teams Cylinder Press Operator Helper Relationship Specialty Start Date End Date Barbie Krueger MD [address] [place] [phone] PCP - General 09/22/19 documented as of this encounter
--- OUTSIDE RECORDS SUMMARY | 2024-12-18 05:10 | XMS_ITS | Encounter Summary ---
Author Organization [facility], Address [address] [place] [address] Phone Care Team Providers Care Complex Human Resources Manager Name Role Phone Barbie Krueger MD Primary Care Prov ider Encounter Details Date Type Department Care Team (Late st Contact Info) Description 10/07/2024 Documentation Only [facility], [address] [place] [address] Amberly Mensah [address] [place] [phone] Social History Tobacco Use Types Packs/Day Years [...] on filedocumented in this encounter Care Teams Complex Human Resources Manager Relationship Specialty Start Date End Date Barbie Krueger MD [address] [place] [address] PCP - General 09/22/19 documented as of this encounter
--- OUTSIDE RECORDS SUMMARY | 2024-12-18 05:10 | XMS_ITS | Encounter Summary ---
Author Organization [facility], Address [address] [place] [address] Phone Care Team Providers Care Research Test Engine Operator Name Role Phone Barbie Krueger MD Primary Care Prov ider Encounter Details Date Type Department Care Team (Late st Contact Info) Description 10/07/2024 Documentation Only [facility], [address] [place] [address] Amberly Mensah [address] [place] [phone] Social History Tobacco Use Types Packs/Day Years [...] on filedocumented in this encounter Care Teams Research Test Engine Operator Relationship Specialty Start Date End Date Barbie Krueger MD [address] [place] [address] PCP - General 09/22/19 documented as of this encounter
--- OUTSIDE RECORDS SUMMARY | 2024-12-18 05:11 | XMS_ITS | Encounter Summary ---
Author Organization [facility], Address [address] [place] [address] Phone Care Team Providers Care Green Energy Marketing Analyst Name Role Phone Barbie Krueger MD Primary Care Prov ider Encounter Details Date Type Department Care Team (Late st Contact Info) Description 10/07/2024 Documentation Only [facility], [address] [place] [address] Amberly Mensah [address] [place] [phone] Social History Tobacco Use Types Packs/Day Years [...] on filedocumented in this encounter Care Teams Green Energy Marketing Analyst Relationship Specialty Start Date End Date Barbie Krueger MD [address] [place] [address] PCP - General 09/22/19 documented as of this encounter
--- OUTSIDE RECORDS SUMMARY | 2024-12-18 05:11 | XMS_ITS | Encounter Summary ---
Author Organization [facility], Address [address] [place] [address] Phone Care Team Providers Care Inspector Rag Sorting Name Role Phone Barbie Krueger MD Primary Care Prov ider Encounter Details Date Type Department Care Team (Late st Contact Info) Description 10/07/2024 Documentation Only [facility], [address] [place] [address] Amberly Mensah [address] [place] [phone] Social History Tobacco Use Types Packs/Day Years [...] on filedocumented in this encounter Care Teams Inspector Rag Sorting Relationship Specialty Start Date End Date Barbie Krueger MD [address] [place] [address] PCP - General 09/22/19 documented as of this encounter
--- OUTSIDE RECORDS SUMMARY | 2024-12-18 05:11 | XMS_ITS | Encounter Summary ---
Author Organization [facility], Address [address] [place] [address] Phone Care Team Providers Care Stock Drier Tender Name Role Phone Barbie Krueger MD Primary Care Prov ider Encounter Details Date Type Department Care Team (Late st Contact Info) Description 10/07/2024 Documentation Only [facility], [address] [place] [address] Amberly Mensah [address] [place] [phone] Social History Tobacco Use Types Packs/Day Years [...] on filedocumented in this encounter Care Teams Stock Drier Tender Relationship Specialty Start Date End Date Barbie Krueger MD [address] [place] [address] PCP - General 09/22/19 documented as of this encounter
--- OUTSIDE RECORDS SUMMARY | 2024-12-18 05:11 | XMS_ITS | Encounter Summary ---
Author Organization [facility], Address [address] [place] [address] Phone Care Team Providers Care Mirror Maker Name Role Phone Barbie Krueger MD Primary Care Prov ider Encounter Details Date Type Department Care Team (Late st Contact Info) Description 10/07/2024 Documentation Only [facility], [address] [place] [address] Amberly Mensah [address] [place] [phone] Social History Tobacco Use Types Packs/Day Years [...] on filedocumented in this encounter Care Teams Mirror Maker Relationship Specialty Start Date End Date Barbie Krueger MD [address] [place] [address] PCP - General 09/22/19 documented as of this encounter
--- OUTSIDE RECORDS SUMMARY | 2024-12-18 05:11 | XMS_ITS | Encounter Summary ---
Author Organization [facility], Address [address] [place] [address] Phone Care Team Providers Care Supervisor Roving Name Role Phone Barbie Krueger MD Primary Care Prov ider Encounter Details Date Type Department Care Team (Late st Contact Info) Description 10/07/2024 Documentation Only [facility], [address] [place] [address] Amberly Mensah [address] [place] [phone] Social History Tobacco Use Types Packs/Day Years [...] on filedocumented in this encounter Care Teams Supervisor Roving Relationship Specialty Start Date End Date Barbie Krueger MD [address] [place] [address] PCP - General 09/22/19 documented as of this encounter
--- OUTSIDE RECORDS SUMMARY | 2024-12-18 05:11 | XMS_ITS | Encounter Summary ---
Author Organization [facility], Address [address] [place] [address] Phone Care Team Providers Care Emt Dispatcher Name Role Phone Barbie Krueger MD Primary Care Prov ider Encounter Details Date Type Department Care Team (Late st Contact Info) Description 10/07/2024 Documentation Only [facility], [address] [place] [address] Amberly Mensah [address] [place] [phone] Social History Tobacco Use Types Packs/Day Years [...] on filedocumented in this encounter Care Teams Emt Dispatcher Relationship Specialty Start Date End Date Barbie Krueger MD [address] [place] [address] PCP - General 09/22/19 documented as of this encounter
--- OUTSIDE RECORDS SUMMARY | 2024-12-18 05:11 | XMS_ITS | Encounter Summary ---
Author Organization [facility], Address [address] [place] [address] Phone Care Team Providers Care Sales Planner Name Role Phone Barbie Krueger MD Primary Care Prov ider Encounter Details Date Type Department Care Team (Late st Contact Info) Description 10/07/2024 Documentation Only [facility], [address] [place] [address] Amberly Mensah [address] [place] [phone] Social History Tobacco Use Types Packs/Day Years [...] on filedocumented in this encounter Care Teams Sales Planner Relationship Specialty Start Date End Date Barbie Krueger MD [address] [place] [address] PCP - General 09/22/19 documented as of this encounter
--- OUTSIDE RECORDS SUMMARY | 2024-12-18 05:11 | XMS_ITS | Encounter Summary ---
Author Organization [facility], Address [address] [place] [address] Phone Care Team Providers Care Tobacco Farmworker Name Role Phone Barbie Krueger MD Primary Care Prov ider Encounter Details Date Type Department Care Team (Late st Contact Info) Description 10/07/2024 Documentation Only [facility], [address] [place] [address] Amberly Mensah [address] [place] [phone] Social History Tobacco Use Types Packs/Day Years [...] on filedocumented in this encounter Care Teams Tobacco Farmworker Relationship Specialty Start Date End Date Barbie Krueger MD [address] [place] [address] PCP - General 09/22/19 documented as of this encounter
--- OUTSIDE RECORDS SUMMARY | 2024-12-18 05:11 | XMS_ITS | Encounter Summary ---
Author Organization [facility], Address [address] [place] [address] Phone Care Team Providers Care Plant Changer Name Role Phone Barbie Krueger MD Primary Care Prov ider Encounter Details Date Type Department Care Team (Late st Contact Info) Description 10/07/2024 Documentation Only [facility], [address] [place] [address] Amberly Mensah [address] [place] [phone] Social History Tobacco Use Types Packs/Day Years [...] on filedocumented in this encounter Care Teams Plant Changer Relationship Specialty Start Date End Date Barbie Krueger MD [address] [place] [phone] PCP - General 09/22/19 documented as of this encounter
--- OUTSIDE RECORDS SUMMARY | 2024-12-18 05:11 | XMS_ITS | Encounter Summary ---
Author Organization [facility], Address [address] [place] [address] Phone Care Team Providers Care Blending Line Attendant Name Role Phone Barbie Krueger MD Primary Care Prov ider Encounter Details Date Type Department Care Team (Late st Contact Info) Description 10/07/2024 Documentation Only [facility], [address] [place] [address] Amberly Mensah [address] [place] [phone] Social History Tobacco Use Types Packs/Day Years [...] on filedocumented in this encounter Care Teams Blending Line Attendant Relationship Specialty Start Date End Date Barbie Krueger MD [address] [place] [address] PCP - General 09/22/19 documented as of this encounter
--- OUTSIDE RECORDS SUMMARY | 2024-12-18 05:11 | XMS_ITS | Encounter Summary ---
Author Organization [facility], Address [address] [place] [address] Phone Care Team Providers Care Snowmobile Mechanic Name Role Phone Barbie Krueger MD Primary Care Prov ider Encounter Details Date Type Department Care Team (Late st Contact Info) Description 10/07/2024 Documentation Only [facility], [address] [place] [address] Amberly Mensah [address] [place] [phone] Social History Tobacco Use Types Packs/Day Years [...] on filedocumented in this encounter Care Teams Snowmobile Mechanic Relationship Specialty Start Date End Date Barbie Krueger MD [address] [place] [address] PCP - General 09/22/19 documented as of this encounter
--- OUTSIDE RECORDS SUMMARY | 2024-12-18 05:11 | XMS_ITS | Encounter Summary ---
Author Organization [facility], Address [address] [place] [address] Phone Care Team Providers Care Stock Crane Operator Name Role Phone Barbie Krueger MD Primary Care Prov ider Encounter Details Date Type Department Care Team (Late st Contact Info) Description 10/07/2024 Documentation Only [facility], [address] [place] [address] Amberly Mensah [address] [place] [phone] Social History Tobacco Use Types Packs/Day Years [...] filedocumented in this encounter Care Teams Stock Crane Operator Relationship Specialty Start Date End Date Barbie Krueger MD [address] [place] [address] PCP - General 09/22/19 documented as of this encounter
--- OUTSIDE RECORDS SUMMARY | 2024-12-18 05:11 | XMS_ITS | Encounter Summary ---
Author Organization [facility], Address [address] [place] [address] Phone Care Team Providers Care Pipe Fitter Helper Name Role Phone Barbie Krueger MD Primary Care Prov ider Encounter Details Date Type Department Care Team (Late st Contact Info) Description 10/07/2024 Documentation Only [facility], [address] [place] [address] Amberly Mensah [address] [place] [phone] Social History Tobacco Use Types Packs/Day Years [...] on filedocumented in this encounter Care Teams Pipe Fitter Helper Relationship Specialty Start Date End Date Barbie Krueger MD [address] [place] [address] PCP - General 09/22/19 documented as of this encounter
--- OUTSIDE RECORDS SUMMARY | 2024-12-18 05:11 | XMS_ITS | Encounter Summary ---
Author Organization [facility], Address [address] [place] [address] Phone Care Team Providers Care Computer Tester Name Role Phone Barbie Krueger MD Primary Care Prov ider Encounter Details Date Type Department Care Team (Late st Contact Info) Description 10/07/2024 Documentation Only [facility], [address] [place] [address] Amberly Mensah [address] [place] [phone] Social History Tobacco Use Types Packs/Day Years [...] on filedocumented in this encounter Care Teams Computer Tester Relationship Specialty Start Date End Date Barbie Krueger MD [address] [place] [phone] PCP - General 09/22/19 documented as of this encounter
[2024-12-18 05:12] LABS: Basophils Absolute Auto 0.1 X10*3/uL (0.0-0.2); Basophils Percent Auto 0.6 % (0-2); Eosinophils Absolute Auto 0.8 X10*3/uL (0.0-0.4); Eosinophils Percent Auto 6.3 % (0-4); Hematocrit 38.7 % (37.0-47.0); Hemoglobin 11.8 g/dl (12.0-16.0); Imm Gran Abs Auto 0.08 X10*3/uL (0.00-0.03); Imm Gran Pct Auto 0.6 % (0.0-0.4); Lymphocytes Absolute Auto 1.9 X10*3/uL (1.2-4.9); Lymphocytes Percent Auto 14.6 % (20-40); Mean Corpuscular HGB Conc 30.5 g/dl (31.0-35.0); Mean Corpuscular Hemoglobin 25.7 pg (27.0-33.0); Mean Corpuscular Volume 84.1 fL (80.0-98.0); Monocytes Absolute Auto 1.3 X10*3/uL (0.1-1.2); Monocytes Percent Auto 10.2 % (2-11); Neutrophils Absolute Auto 8.7 x10*3/uL (2.0-8.3); Neutrophils Percent Auto 67.7 % (45-73); Platelet Count 174 X10*3/uL (160-400); Red Cell Distribution Width 13.5 % (11.0-16.0); White Blood Count 12.9 X10*3/uL (4.8-10.8)
--- NOTE | 2024-12-18 05:19 | ED_ITS ---
HPI - General Adult General Chief complaint: General Medical Stated complaint: cellulitis, migraine, flu like Time Seen by Provider: 12/18/24 04:59 Source: patient Mode of arrival: EMS Limitations: no limitations History of Present Illness ED Provider: HPI narrative: Patient is 49 years old with history of COPD, lupus, CVA, peripheral vascular disease on Eliquis and statin, fibromyalgia, hypothyroidism, chronic leg edema comes here for a month of pain in the right leg especially got worse in last few days patient does get inflammation of the lower extremity specially in the right does have chronic stasis dermatitis which improves with leg elevation and ammonium lactate. No fever no chills Related Data Home Medications ?Medication ?Instructions ?Recorded ?Confirmed albuterol sulfate 90 mcg/actuation 2 puff inhalation Q6H PRN 08/31/20 10/21/24 aerosol inhaler Shortness Of Breath Or Wheezing nebulizer and compressor (Vios #1 ea 02/15/22 07/21/24 Aerosol Delivery System) xmwhlrbevw-ldujuuzqksvou-ndlgclsf 2 tab PO DAILY PRN headache 11/08/22 10/21/24 50 mg-325 mg-40 mg tablet ferrous sulfate 325 mg (65 mg 1 tab PO DAILY 11/08/22 10/21/24 iron) tablet (FeroSul) tiotropium bromide 2.5 1 puff inhalation DAILY 11/08/22 10/21/24 mcg/actuation mist for inhalation (Spiriva Respimat) lorazepam 1 mg tablet 1 mg PO DAILY PRN anxiety 04/24/24 10/21/24 acetaminophen 325 mg tablet 650 mg PO Q6H PRN Pain 06/13/24 10/21/24 (Tylenol) hydroxychloroquine 200 mg tablet 200 mg PO DAILY@199910/21/24 10/21/24 lidocaine 5 % topical patch 2 patch topical DAILY PRN pain 10/21/24 10/21/24 sulfasalazine 500 mg tablet 1,000 mg PO DAILY@199910/21/24 10/21/24 sulfasalazine 500 mg tablet 500 mg PO DAILY@0810/21/24 10/21/24 Previous Rx's ?Medication ?Instructions ?Recorded inhalational spacing device #10 ea 06/04/24 (Aerovent Plus spacer) cholecalciferol (vitamin D3) 50 50 mcg PO DAILY #90 caps 08/19/24 mcg (2,000 unit) capsule ammonium lactate 12 % lotion 1 appl topical BID #225 grams 10/22/24 vancomycin 125 mg capsule 125 mg PO Q6H 14 days #56 caps 10/22/24 doxycycline hyclate 100 mg tablet 100 mg PO BID #20 tabs 10/25/24 apixaban 5 mg tablet (Eliquis) 5 mg PO BID 30 days #60 tabs 11/24/24 bupropion HCl 100 mg tablet,12 hr 100 mg PO BID 30 days #60 tabs 11/24/24 sustained-release multivitamin (One Daily 1 tab PO DAILY 30 days #30 tabs 11/24/24 Multivitamin tablet) levothyroxine 175 mcg tablet 175 mcg PO DAILY 30 days #30 tabs 11/25/24 hydroxychloroquine 200 mg tablet 300 mg (1.5 x 200 mg) PO BID #135 11/26/24 tabs famotidine 20 mg tablet 20 mg PO DAILY #30 tabs 12/15/24 fluticasone propionate 230 2 puff inhalation BID copd 30 days 12/15/24 mcg-salmeterol 21 mcg/actuation #12 grams HFA inhaler (Advair HFA) folic acid 1 mg tablet 1 mg PO DAILY #30 tabs 12/15/24 loratadine 10 mg tablet 10 mg PO DAILY allergies #30 tabs 12/15/24 nortriptyline 75 mg capsule 75 mg PO BEDTIME #30 caps 12/15/24 pravastatin 40 mg tablet 40 mg PO BEDTIME #30 tabs 12/15/24 prednisone 2.5 mg tablet 5 mg (2 x 2.5 mg) PO DAILY #60 tabs 12/15/24 fluoxetine 20 mg capsule 40 mg (2 x 20 mg) PO DAILY #60 caps 12/16/24 amoxicillin 875 mg-potassium 1 tab PO BID #20 tabs 12/18/24 clavulanate 125 mg tablet doxycycline hyclate 100 mg tablet 100 mg PO BID #20 tabs 12/18/24 Allergies Allergy/AdvReac Type Severity Reaction Status Date / Time clarithromycin Allergy Intermediate FACIAL Verified 12/18/24 04:25 [CLARITHROMYCIN] SWELLING/REDNESS, facial rash, facial rash, facial rash, facial rash Review of Systems 2 Review of Systems: Yes all other systems are reviewed and are negative PMFSH Past Medical History Medical History Sepsis Depression Anxiety Kidney disease Headache Swelling Arthritis Hx of blood clots Sinusitis Asthma Stasis dermatitis Bilateral lower leg cellulitis Cellulitis COPD (chronic obstructive pulmonary disease) Lung density on x-ray Smoker COPD (chronic obstructive pulmonary disease) with acute bronchitis Bilateral pneumonia Tobacco abuse C. difficile colitis Community acquired pneumonia Bilateral pneumonia Open wound of right elbow Respiratory failure with hypoxia Pneumonia due to COVID-19 virus Acute respiratory distress syndrome (ARDS) due to COVID-19 virus Acute exacerbation of chronic obstructive airways disease Acute hypoxemic respiratory failure due to COVID-19 Ulcer of lower extremity Sepsis with acute hypoxic respiratory failure without septic shock Encounter for testing for latent tuberculosis infection Falling Charcot's joint of foot Cellulitis Redness and swelling of lower leg C. difficile colitis Secondary bacterial pneumonia Immunosuppression due to chronic steroid use Mixed connective tissue disease Cellulitis of right leg PAD (peripheral artery disease) Varicose veins of right lower extremity with inflammation Rheumatoid arthritis Cellulitis CVA (cerebral vascular accident) Proteinuria Fibromyalgia Hypothyroid Lupus Surgical History Status post incision and drainage History of breast lump/mass excision History of excision of mass History of partial hysterectomy History of cholecystectomy History of bunionectomy Family History Family History Father No problems noted. Mother Lung cancer Rheumatoid arthritis Social History Social History Household Members: Family Household Members Other:: My twin sons Housing: House Housing Other:: second floor Do you presently have visiting nurse or other home services: No Alcohol intake: former Comment: pt asleep Patient Tobacco Use Status: Current everyday Tobacco user Tobacco use type: Cigarette Cigarette Packs Per Day: 1 Cigarettes Per Day: 20.0 Years Smoked: 30 Second Hand Smoke Exposure: No Substance Use Type: Marijuana Advance Directives: Yes Advance Directives on File: Yes Advance Directives Date on File: 11/26/21 Do you have a plan to hurt others: No Plan service: No Current occupational status: unemployed and disabled Current occupation: right hand dominant Cognitive needs: No Hearing needs: No Vision needs: Yes Physical Exam ED Vital Signs: Vital Signs - 24 hr 12/18/24 04:23 12/18/24 07:06 Temperature 98.6 F 98.6 F Pulse Rate 109 H 88 Respiratory Rate 22 H 18 Blood Pressure 145/89 H 145/89 H Pulse Oximetry 90 L 92 Oxygen Delivery Method Room Air Room Air BMI result Body Mass Index 23.6 Appearance: Alert. Oriented X3. No acute distress. Eyes: No pallor or icterus ENT: Pharynx normal. Oral Mucosa moist Neck: Normal inspection. Neck supple. CVS: Normal heart rate and rhythm. Pulses normal. Respiratory: No respiratory distress. Equal air entry bilateral, no wheezing/rales/rhonchi Abdomen: Soft and nontender. Bowel sounds are present, no mass palpable, no CVA tenderness Skin: Skin warm and dry. Normal skin color. Normal skin turgor. Extremities: Bilateral lower extremity chronic stasis dermatitis with erythema right leg and local warmth Neuro: Oriented X 3. No motor deficit. No sensory deficit. Medications Administered Discontinued Medications Generic Name Dose Route Start Last Admin Trade Name Freq PRN Reason Stop Dose Admin Amoxicillin/Clavulanate Potassium 875 mg 12/18/24 05:27 12/18/24 05:50 Amoxicillin/Potassium Clav 875 Mg Tablet PO 12/18/24 05:28 875 mg ONCE ONE Administration Doxycycline Monohydrate 100 mg 12/18/24 05:27 12/18/24 05:50 Doxycycline Monohydrate 100 Mg Capsule PO 12/18/24 05:28 100 mg ONCE ONE Administration Medical Decision Making Medical Decision Making [facility] Narrative: Patient has chronic stasis dermatitis normal lactic acid slightly elevated WBC count of 12.9 no open wounds will discharge patient home on doxycycline and Augmentin as outpatient treatment Differential Diagnosis Differential Diagnoses: The differential diagnosis associated with the presentation includes Cellulitis/dermatitis/stasis dermatitis Lab Data [facility] Lab Attestation statement: I reviewed the patient's lab results. 12/18/24 05:01 12/18/24 05:01 Labs: Lab Results 12/18/24 12/18/24 Range/Units 04:54 05:01 WBC 12.9 H (4.8-10.8) X10*3/uL RBC 4.60 (4.20-5.50) X10*6/uL Hgb 11.8 L (12.0-16.0) g/dl Hct 38.7 (37.0-47.0) % MCV 84.1 (80.0-98.0) fL MCH 25.7 L (27.0-33.0) pg MCHC 30.5 L (31.0-35.0) g/dl RDW 13.5 (11.0-16.0) % Plt Count 174 (160-400) X10*3/uL MPV 9.0 L (9.4-12.3) fL Immature Gran % (Auto) 0.6 H (0.0-0.4) % Neut % (Auto) 67.7 (45-73) % Lymph % (Auto) 14.6 L (20-40) % [place] % (Auto) 10.2 (2-11) % Eos % (Auto) 6.3 H (0-4) % Baso % (Auto) 0.6 (0-2) % Lymph # (Auto) 1.9 (1.2-4.9) X10*3/uL [place] # (Auto) 1.3 H (0.1-1.2) X10*3/uL Eos # (Auto) 0.8 H (0.0-0.4) X10*3/uL Baso # (Auto) 0.1 (0.0-0.2) X10*3/uL Abs Immat Gran (auto) 0.08 H (0.00-0.03) X10*3/uL Absolute Neuts (auto) 8.7 H (2.0-8.3) x10*3/uL Absolute Nucleated RBC 0.000 (0.0-0.012) X10*3/uL Nucleated RBC % (auto) 0.0 (0.0-0.2) /100WBC Sodium 142 (135-145) mmol/L Potassium 4.2 D (3.3-5.1) mmol/L Chloride 105 (96-108) mmol/L Carbon Dioxide 28 (22-29) mmol/L Anion Gap 13 (12-20) BUN 19 H (9-16) mg/dL Creatinine 0.75 (0.5-1.4) mg/dL Estim Creat Clear Calc 70.0 Estimated GFR > 60 Random Glucose 90 (60-115) mg/dL Lactic Acid 0.9 (0.5-2.0) mmol/L Calcium 9.6 D (8.4-10.2) mg/dL Total Bilirubin 0.2 (0.0-1.0) mg/dL AST 77 H (5-31) U/L ALT 37 H (0-31) U/L Alkaline Phosphatase 192 H (39-117) U/L Total Protein 6.6 (6.5-8.0) g/dL Albumin 3.6 (3.5-5.0) g/dL Influenza Type A (PCR) NEGATIVE (Negative) Influenza Type B (PCR) NEGATIVE (Negative) RSV RNA Qual (PCR) NEGATIVE (Negative) SARS-CoV-2 RNA (RT-PCR) NEGATIVE (Negative) Discharge Plan Discharge Clinical Impression: Cellulitis of leg, right Patient Disposition: Home, Self-Care Instructions: Cellulitis (ED) Additional Instructions: Keep your right leg elevated and apply moisturizing cream as advised Antibiotics as prescribed Report to the ER if high fever worsening of the redness or pain Prescriptions: New doxycycline hyclate 100 mg tablet 100 mg PO BID Qty: 20 0RF amoxicillin-pot clavulanate 875-125 mg tablet 1 tab PO BID Qty: 20 0RF No Action bupropion HCl 100 mg tablet sustained-release 12 hr 100 mg PO BID 30 Days Qty: 60 3RF Eliquis 5 mg tablet 5 mg PO BID 30 Days Qty: 60 3RF multivitamin [One Daily Multivitamin] Tablet 1 tab PO DAILY 30 Days Qty: 30 3RF levothyroxine 175 mcg tablet 175 mcg PO DAILY 30 Days Qty: 30 3RF hydroxychloroquine 200 mg tablet 300 mg PO BID Qty: 135 1RF fluticasone propion-salmeterol [Advair HFA] 230-21 mcg/actuation HFA aerosol inhaler 2 puff inhalation BID 30 Days Qty: 12 4RF Rx Instructions: administer with spacer prednisone 2.5 mg tablet 5 mg PO DAILY Qty: 60 4RF famotidine 20 mg tablet 20 mg PO DAILY Qty: 30 0RF folic acid 1 mg tablet 1 mg PO DAILY Qty: 30 0RF nortriptyline 75 mg capsule 75 mg PO BEDTIME Qty: 30 0RF loratadine 10 mg tablet 10 mg PO DAILY Qty: 30 0RF pravastatin 40 mg tablet 40 mg PO BEDTIME Qty: 30 0RF fluoxetine 20 mg capsule 40 mg PO DAILY Qty: 60 0RF albuterol sulfate 90 mcg/actuation HFA aerosol inhaler 2 puff inhalation Q6H PRN (Reason: Shortness Of Breath Or Wheezing) xkamiwkrgq-motomluevubai-jaig 50-325-40 mg tablet 2 tab PO DAILY PRN (Reason: headache) ferrous sulfate [FeroSul] 325 mg (65 mg iron) tablet 1 tab PO DAILY Spiriva Respimat 2.5 mcg/actuation mist 1 puff INHALATION DAILY doxycycline hyclate 100 mg tablet 100 mg PO BID Qty: 20 0RF lorazepam 1 mg tablet 1 mg PO DAILY PRN (Reason: anxiety) acetaminophen [Tylenol] 325 mg Tablet 650 mg PO Q6H PRN (Reason: Pain) hydroxychloroquine 200 mg Tablet 200 mg PO DAILY@2000 sulfasalazine 500 mg tablet 1,000 mg PO DAILY@2000 sulfasalazine 500 mg tablet 500 mg PO DAILY@0800 lidocaine 5 % adhesive patch,medicated 2 patch topical DAILY PRN (Reason: pain) ammonium lactate 12 % Lotion 1 appl topical BID Qty: 225 0RF Protocol: Apply to: Apply to: lower extremities vancomycin 125 mg Capsule 125 mg PO Q6H 14 Days Qty: 56 0RF (DME) nebulizer and compressor [Vios Aerosol Delivery System] Device See Rx Instructions .ROUTE DIRECTED Qty: 1 Rx Instructions: As directed (DME) Aerovent Plus Spacer See Rx Instructions .Route Qty: 10 0RF Rx Instructions: As directed cholecalciferol (vitamin D3) 50 mcg (2,000 unit) capsule 50 mcg PO DAILY Qty: 90 1RF Interventions: ED Discharge Assessment Last Done: 12/18/24 07:06 Discharge Date/Time: 12/18/24 07:07 Print Language: Ukrainian
[2024-12-18 05:25] LABS: Lactic Acid 0.9 mmol/L (0.5-2.0)
[2024-12-18 05:26] LABS: Alanine Aminotransferase 37 U/L (0-31); Albumin Level 3.6 g/dL (3.5-5.0); Alkaline Phosphatase 192 U/L (39-117); Anion Gap 13 (12-20); Aspartate Amino Transferase 77 U/L (5-31); Bilirubin Total 0.2 mg/dL (0.0-1.0); Blood Urea Nitrogen 19 mg/dL (9-16); Calcium 9.6 mg/dL (8.4-10.2); Carbon Dioxide 28 mmol/L (22-29); Chloride 105 mmol/L (96-108); Estimated Glomerular Filt Rate > 60; Glucose Random 90 mg/dL (60-115); Potassium 4.2 mmol/L (3.3-5.1); Sodium 142 mmol/L (135-145); Total Protein 6.6 g/dL (6.5-8.0)
[2024-12-18 05:48] LABS: Influenza A PCR NEGATIVE (Negative); Influenza B PCR NEGATIVE (Negative); Resp Syncy Virus RNA Qual PCR NEGATIVE (Negative); SARS COV2 PCR INHOUSE NEGATIVE (Negative)
[2024-12-18] MEDS: Amoxicillin/Potassium Clav 875 MG TABLET PO (05:50)
[2024-12-18] MEDS: Doxycycline Monohydrate 100 MG CAPSULE PO (05:50)
[2024-12-18 07:06] VITALS: BP 145/89; PULSE 88; RESP 18; TEMP 37; O2SAT 92
== END 2024-12-18 07:07 | disposition home or self-care (01) ==
PROVIDERS: Emergency Provider Internal Medicine; PCP Nurse Practitioner Family
DX: L03.115 Cellulitis of right lower limb (principal); G43.909 Migraine, unspecified, not intractable, without status migrainosus; F17.210 Nicotine dependence, cigarettes, uncomplicated; R05.9 Cough, unspecified; Z79.01 Long term (current) use of anticoagulants; Z79.899 Other long term (current) drug therapy; Z03.818 Encounter for observation for suspected exposure to other biological agents ruled out
CPT/HCPCS: 0241U; 36415; 71045; 80053; 83605; 85025; 87040; 99283; 99284

== ENCOUNTER → 2024-12-18 04:20 | Outpatient (BNV) | payer OTHER, SELFPAY | PROVIDERS: Emergency Provider Internal Medicine; Visit Provider Radiology Diagnostic Radiology | DX: R05.9 Cough, unspecified (principal) | CPT/HCPCS: 71045 ==

== ENCOUNTER → 2024-12-23 15:52 | Outpatient (BNVA) | payer OTHER, SELFPAY | PROVIDERS: PCP Nurse Practitioner Family; Visit Provider Internal Medicine | DX: J44.9 Chronic obstructive pulmonary disease, unspecified (principal); J98.4 Other disorders of lung | CPT/HCPCS: 99212 ==

== ENCOUNTER 2024-12-25 15:27 | Outpatient (AMB) | payer OTHER, SELFPAY ==
--- NOTE | 2024-12-25 15:29 | A.OFFPC_ITS ---
Vital Signs 12/25/24 16:03 Height 5 ft 1 in Weight 125 lb BMI 23.6 BP 143/69 H Blood Pressure Location Rt brachial Position Sitting Respiration 16 Pulse 91 Pulse Source Pulse Oximeter Temp 98.3 F Temp Source Oral Pulse Oximetry (%) 96 Oxygen Delivery Method Room Air Intake Visit Reasons: Follow up labs Intake Note: patient here for labs review Drier Transfer Car Operator Required: No Is last menstrual period known: No Post menopausal: No Patient : No Allergies clarithromycin [CLARITHROMYCIN] Allergy (Intermediate, Verified 12/25/24 16:15) FACIAL SWELLING/REDNESS, facial rash, facial rash, facial rash, facial rash Medication List - Last Reconciled 12/25/24 by Sylvia Hicks CNP acetaminophen (Tylenol) 650 mg PO Q6H PRN albuterol sulfate 90 mcg/actuation 2 puffs inhalation Q6H PRN albuterol sulfate 90 mcg/actuation 2 puffs inhalation Q4-6H PRN 30 days albuterol sulfate 2.5 mg (3 mL) inhalation Q4-6H PRN 30 days ammonium lactate 12% 1 appl See Protocol topical BID amoxicillin-pot clavulanate 875-125 mg 1 tab PO BID apixaban (Eliquis) 5 mg PO BID 30 days bupropion HCl SR 100 mg PO BID 30 days pepahyfysv-ezeomiolyeuge-qlna 50-325-40 mg 2 tabs PO DAILY PRN cholecalciferol (vitamin D3) 50 mcg PO DAILY doxycycline hyclate 100 mg PO BID famotidine 20 mg PO DAILY ferrous sulfate (FeroSul) 1 tab PO DAILY fluoxetine 40 mg (2 x 20 mg) PO DAILY fluticasone propion-salmeterol 230-21 mcg/actuation (Advair HFA) 2 puffs inhalation BID 30 days folic acid 1 mg PO DAILY hydroxychloroquine 300 mg (1.5 x 200 mg) PO BID inhalational spacing device (Aerovent Plus spacer) As directed levothyroxine 175 mcg PO DAILY 30 days lidocaine 5% 2 patches topical DAILY PRN loratadine 10 mg PO DAILY lorazepam 1 mg PO DAILY PRN multivitamin (One Daily Multivitamin tablet) 1 tab PO DAILY 30 days nebulizer and compressor (Linq3os Aerosol Delivery System) As directed nortriptyline 75 mg PO BEDTIME pravastatin 40 mg PO BEDTIME prednisone 5 mg (2 x 2.5 mg) PO DAILY sulfasalazine 500 mg PO DAILY@0800 sulfasalazine 1,000 mg PO DAILY@2000 tiotropium bromide 2.5 mcg/actuation (Spiriva Respimat) 2 puffs inhalation QAM 30 days Tobacco use date assessed: 12/25/24 Dental Screening Dental Screen Date: 12/25/24 Did you have a dental visit in the last 12 months?: No Did you have a dental problem in the last 6 months where you did not have access to dental care?: No Was dental information given to patient?: Patient declined (patient has den dorita) HPI HPI Comments History of Present Illness Details 49-year-old female, accompanied by his P CA, presents for review recent lab results. Her last office visit was when she established care on 07/21/2024. She was [place] [facility] [place]18[place] for right leg cellulitis. Prior to that, she was admitted at [facility] [place] a couple of days at the beginning of October,. She notes constant pain to the right lower. She intermittent anxiety and depressive symptoms. She requests a refill for Lorazepam. She also requests refill for sphvqsttfr-bmebcjvxtmkfc-ltur 50-325-40mg. She was wheeled in a wheehchair, in and out of the office by her MOTION PICTURE FILM EXAMINER. REPLACED BY [facility] Medical History (Updated 12/25/24 @ 17:35 by Sylvia Hicks CNP) Sepsis Depression Anxiety Kidney disease Headache Swelling Arthritis Hx of blood clots Sinusitis Asthma Stasis dermatitis Bilateral lower leg cellulitis Cellulitis COPD (chronic obstructive pulmonary disease) Lung density on x-ray Smoker COPD (chronic obstructive pulmonary disease) with acute bronchitis Bilateral pneumonia Tobacco abuse C. difficile colitis Community acquired pneumonia Bilateral pneumonia Open wound of right elbow Respiratory failure with hypoxia Pneumonia due to COVID-19 virus Acute respiratory distress syndrome (ARDS) due to COVID-19 virus Acute exacerbation of chronic obstructive airways disease Acute hypoxemic respiratory failure due to COVID-19 Ulcer of lower extremity Sepsis with acute hypoxic respiratory failure without septic shock Encounter for testing for latent tuberculosis infection Falling Charcot's joint of foot Cellulitis Redness and swelling of lower leg C. 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 Mother Lung cancer Rheumatoid arthritis Social History Household Members: Family Household Members Other:: My twin sons Housing: House Housing Other:: second floor Do you presently have visiting nurse or other home services: No Alcohol intake: former Comment: pt asleep Patient Tobacco Use Status: Current everyday Tobacco user Tobacco use type: Cigarette Cigarette Packs Per Day: 1 Cigarettes Per Day: 20.0 Years Smoked: 30 Packs Per Year: 30 Packs per year/per ci.00 e-Cigarette/Vaping Use: Never Used Second Hand Smoke Exposure: No Substance Use Type: Marijuana Advance Directives Date on File: 11/26/21 Patient : No service: No Current occupational status: unemployed and disabled Current occupation: right hand dominant Cognitive needs: No Hearing needs: No Vision needs: Yes Questionnaire PHQ-9 Over the last 2 weeks, how often have you been bothered by any of the following problems? 1. Little interest or pleasure in doing things: several days 2. Feeling down, depressed, or hopeless: several days 3. Trouble falling or staying asleep, or sleeping too much: several days 4. Feeling tired or having little energy: several days 5. Poor appetite or overeating: several days 6. Feeling bad about yourself - or that you are a failure or have let yourself or your family down: not at all 7. Trouble concentrating on things, such as reading the newspaper or watching television: not at all 8. Moving or speaking so slowly that other people could have noticed. Or the opposite - being so fidgety or restless that you have been moving around a lot more than usual: not at all 9. Thoughts that you would be better off or of hurting yourself in some way: not at all Total score: 5 Depression Screening Interpretation: Positive Depression Screening Done: Yes 26617 - PHQ-9 Billing: Yes Source: Developed by Drs. Jose A Olson, Justin Silva and colleagues, with an educational virgilio from [employer]. Thrive Questionnaire Date Thrive assessed: 12/25/24 I am a: Patient What is your living situation today?: I have a steady place to live Within the past 12 months, did the food you bought not last and you didn't have the money to get more?: Never true Within the past 12 months, did you worry whether your food would run out before you got money to buy more?: Never true Do you have trouble paying for medicines?: No Do you have trouble getting transportation to medical appointments?: No Do you have trouble paying your heating and electricity bill?: No Do you have trouble taking care of your child, family member or friend?: No Do you have trouble with day-to-day activities such as bathing, preparing meals, shopping, managing finances, etc.?: No Are you currently unemployed and looking for a job?: No Are you interested in more education?: No Please select the resources that you would like help with: None Currently or been in a relationship where the following occur: No concerns reported THRIVE Score: 0 AUDIT C Alcohol Use Questionnaire (AUDIT-C) 1. How often do you have a drink containing alcohol?: Never 3. How often do you have six or more drinks on one occasion?: Never Total Score: 0 BULMARO-7 AMB Questionnaire BULMARO-7 Date BULMARO - 7 assessed: 12/25/24 Feeling nervous, anxious, or on edge: 1 = Several days Not being able to stop or control worryin = Several days Worrying too much about different things: 1 = Several days Trouble relaxin = Several days Being so restless that it is hard to sit still: 1 = Several days Becoming easily annoyed or irritable: 1 = Several days Feeling afraid as if something awful might happen: 1 = Several days Total BULMARO-7 score (0-4 normal; 5-9 mild; 10-14 moderate; 15-21 severe): 7 Source: Developed by Chanelle Manzano Kurt Kroenke and colleagues, with an educational virgilio from [employer]. BULMARO-7 Assessment Billing BULMARO-7 Assessment Tool: BULMARO-7 Assessment 57507 Review of Systems Const Details: Const Denies chills, Denies fatigue, Denies fever(s), Denies headache(s) and Denies weakness ENT Denies dizziness and Denies headache(s) Card Denies chest pain, Denies lightheadedness, Denies dyspnea and Denies other (Palpitations) Resp Denies cough, Denies dyspnea, Denies wheezing and Denies other ( shortness of breath) GI Denies abdominal pain, Denies melena, Denies hematochezia, Denies change in bowel habits, Denies dyspepsia and Denies nausea Denies hematuria and Denies dysuria Musc Reports as per HPI Skin/Breast Denies rash, Denies unusual bruising and Denies wounds Neuro Denies abnormal gait, Denies dizziness, Denies headache(s), Denies memory loss, Denies numbness, Denies Sensory deficit (Neuro), Denies tingling and Denies weakness Psych Reports anxiety, Denies depression, Denies memory loss Endo Denies cold intolerance, Denies fatigue, Denies heat intolerance, Denies polydipsia and Denies polyuria Aller/Immun Denies wheezing Physical exam (Primary Care) Vital Signs: Last Vital Signs Temp 98.3 F 12/25/24 16:03 Pulse 91 12/25/24 16:03 Resp 16 12/25/24 16:03 BP 143/69 H 12/25/24 16:03 Pulse Ox 96 12/25/24 16:03 Oxygen Delivery Method Room Air 12/25/24 16:03 BMI result Body Mass Index 23.6 Tobacco/Smoking Status: Tobacco use Status Tobacco use date assessed 12/25/24 12/25/24 15:32 Patient Tobacco Use Status Current everyday Tobacco 12/25/24 15:32 Tobacco use type Cigarette 12/25/24 15:32 e-Cigarette/Vaping Use Never Used 12/25/24 16:06 PHQ-9: PHQ-9 Score PHQ-9: Total score 5 12/28/24 15:13 Depression Screening Interpretation: Positive Thrive Assessment: Date of Thrive Assessment Date Thrive assessed 12/25/24 12/25/24 15:32 Currently or been in a relationship where the following occur: No concerns reported Const Other: General: no acute distress and well developed Nutritional Appearance: well nourished Orientation/consciousness: patient oriented x3 [facility] Head: Yes normocephalic and Yes atraumatic Eyes General: appearance normal, both eyes and all related structures Pupils: Equal, round and reactive pupils present EOM: EOMs intact bilaterally Resp Effort & Inspection: normal respiratory effort Auscultation: clear to auscultation bilaterally Cardio Rate: regular rate Rhythm: regular rhythm Heart sounds: S1 normal heart sound present, S2 normal heart sound present, no gallops, no murmurs and no rubs GI Palpation (GI): No Abdominal aortic bruit present, Soft to palpation, nontender, No hepatosplenomegaly present and No Rebound tenderness present Auscultation: normal bowel sounds General: Yes no CVA tenderness Back/Spine/Pelvis Back: no CVA tenderness Cervical Spine: cervical ROM normal and No Cervical spine tenderness Thoracic/Lumbar Spine: thoraco-lumbar ROM normal, No pain with thoraco-lumbar ROM, No thoracic spinal tenderness and No lumbar spinal tenderness Extrem General: Nonpitting edema to right lower leg, No calf tenderness, no overt infection Skin General: warm and dry. Normal skin color. Normal skin turgor Neuro General: patient oriented x3, and no focal neuro deficit Cranial nerves: Yes Equal, round and reactive pupils present Cognition (Neuro): normal cognition Gait exam (Neuro): Not assessed Sensory Exam: No Sensory deficit (Neuro) Psych Appearance: grossly normal Affect: normal affect Attitude: cooperative Thought process: Normal thought process present Coding Level of Care Code Est Pt Level 4 (51227) Diagnoses Cellulitis of leg, right L03.115 Anxiety and depression F41.9; F32.A Elevated blood pressure reading without diagnosis of hypertension R03.0 Hypothyroid E03.9 Transaminitis R74.01 Additional Codes BULMARO-7 Assessment Billing - BULMARO-7 Assessment Tool: BULMARO-7 Assessment 54327 ([id number]) PHQ-9 - 48490 - PHQ-9 Billing: Yes ([id number]) Assessment & Plan Assessment & Plan (1) Cellulitis of leg, right: Code(s): L03.115 - Cellulitis of right lower limb Category: Medical Plan: Resolved. Continue current pain regimen. Elevated right lower extremity as needed to reduce edema. Follow-up with worsening or new symptoms. Verbalized understanding and agreed with treatment plan. (2) Anxiety and depression: Code(s): F41.9 - Anxiety disorder, unspecified; F32.A - Depression, unspecified Category: Medical Plan: Intermittent anxiety and depressive symptoms. PHQ-9 and BULMARO-7 scores revealed mild depression and anxiety respectively. She has not taking Ativan in several months. He will trial buspirone 10 mg twice daily; advised to take as prescribed. Continue to take fluoxetine and bupropion as prescribed. Follow-up in 2 months or sooner with worsening or new symptoms. Verbalized understanding and agreed with treatment plan. (3) Elevated blood pressure reading without diagnosis of hypertension: Code(s): R03.0 - Elevated blood-pressure reading, without diagnosis of hypertension Category: Medical Plan: Resting blood pressure is 143/69, above goal of less than 140/90. Elevated blood pressure may be attributed to pain. Continue current treatment pain management. Advised to monitor blood pressure readings and report consistently elevated readings. Follow-up with worsening or new symptoms. Verbalized understanding and agreed with treatment plan. (4) Hypothyroid: Code(s): E03.9 - Hypothyroidism, unspecified Category: Medical Plan: Continue current treatment regimen. Will check TSH/T4 levels and make changes as needed. Verbalized understanding and agreed with treatment plan. (5) Transaminitis: Code(s): R74.01 - Elevation of levels of liver transaminase levels Category: Medical Plan: Recent AST/AST/alk-phos levels are elevated, 77, 37, and 192 respectively. Hepatic steatosis is likely Healthy diet, including low-fat, and routine exercise encouraged Will check lipid panel and make changes as needed. Advised to get fasting lab work done before next visit. Verbalized understanding and agreed with treatment plan. Orders: Orders Comprehensive [place]. Panel Fast 12/25/24 R03.0 - Elevated blood-pressure reading, without diagnosis of hypertension Lipid Panel 12/25/24 R03.0 - Elevated blood-pressure reading, without diagnosis of hypertension TSH reflex Free T4 12/25/24 E03.9 - Hypothyroidism, unspecified Medications: New buspirone 10 mg PO BID 60 tabs 3RF 30 days eovejccmei-pvpmcwdnmdxxq-vjlt 50-325-40 mg 2 tabs PO DAILY PRN 14 tabs 0RF headache Patient Instructions: I called [facility] and spoke with the pharmacist who conducted a central search and found no record for jixysvylcd-clrvvgqiwojzl-yfop. No current complaints of headache. Will not refill knbspsypdx-igatxfykkhcue-xotkyoxw at this time. Continue to take acetaminophen as prescribed for pain or discomfort. Will consider triptans as first-line treatment option for moderate to severe migraines.
--- OUTSIDE RECORDS SUMMARY | 2024-12-25 15:30 | XMS_ITS | Encounter Summary ---
Author Organization [facility], Address [address] [place] [address] Phone Care Team Providers Care Social Work Nurse Name Role Phone Barbie Krueger MD Primary Care Prov ider Encounter Details Date Type Department Care Team (Late st Contact Info) Description 10/07/2024 Documentation Only [facility], [address] [place] [address] Amberly Mensah [address] [place] [phone] Social History Tobacco Use Types Packs/Day Years [...] on filedocumented in this encounter Care Teams Social Work Nurse Relationship Specialty Start Date End Date Barbie Krueger MD [address] [place] [address] PCP - General 09/22/19 documented as of this encounter
--- OUTSIDE RECORDS SUMMARY | 2024-12-25 15:30 | XMS_ITS | Encounter Summary ---
Author Organization [facility], Address [address] [place] [address] Phone Care Team Providers Care Mechanics Supervisor Name Role Phone Barbie Krueger MD Primary Care Prov ider Encounter Details Date Type Department Care Team (Late st Contact Info) Description 10/07/2024 Documentation Only [facility], [address] [place] [address] Amberly Mensah [address] [place] [phone] Social History Tobacco Use Types Packs/Day Years [...] on filedocumented in this encounter Care Teams Mechanics Supervisor Relationship Specialty Start Date End Date Barbie Krueger MD [address] [place] [address] PCP - General 09/22/19 documented as of this encounter
--- OUTSIDE RECORDS SUMMARY | 2024-12-25 15:30 | XMS_ITS | Encounter Summary ---
Author Organization [facility], Address [address] [place] [address] Phone Care Team Providers Care Insole Toe Snipping Machine Operator Name Role Phone Barbie Krueger MD Primary Care Prov ider Encounter Details Date Type Department Care Team (Late st Contact Info) Description 10/07/2024 Documentation Only [facility], [address] [place] [address] Amberly Mensah [address] [place] [phone] Social History Tobacco Use Types Packs/Day Years [...] on filedocumented in this encounter Care Teams Insole Toe Snipping Machine Operator Relationship Specialty Start Date End Date Barbie Krueger MD [address] [place] [address] PCP - General 09/22/19 documented as of this encounter
--- OUTSIDE RECORDS SUMMARY | 2024-12-25 15:30 | XMS_ITS | Encounter Summary ---
Author Organization [facility], Address [address] [place] [address] Phone Care Team Providers Care Employee Relations Representative Name Role Phone Barbie Krueger MD Primary Care Prov ider Reason for Visit * Reason Comments Med Refill Encounter Details Date Type Department Care Team (Late st Contact Info) Description 04/01/2024 Refill [facility], [address] [place] [address] Lukas Kam MD [address] [place] [phone] Social History Tobacco Use Types Packs/Day Years [...] on filedocumented in this encounter Care Teams Employee Relations Representative Relationship Specialty Start Date End Date Barbie Krueger MD [address] [place] [phone] PCP - General 09/22/19 documented as of this encounter
--- OUTSIDE RECORDS SUMMARY | 2024-12-25 15:30 | XMS_ITS | Clinical Summary ---
Author Organization [facility], Address [address] [place] [address] [place] [address] Phone Care Team Providers Care Financial Institution Manager Name Role Phone Barbie Krueger MD [...] Telephone [facility] [address] [place] [address] Omar Mcginnis [place] 10/07/2024 Documentation Only [facility] [address] [place] [address] Makenna, Amberly 10/07/2024 Documentation Only [facility] [address] [place] [address] Makenna, Amberly 10/07/2024 Documentation Only [facility] [address] [place] [address] Makenna, Amberly 10/07/2024 Documentation Only [facility] [address] [place] [address] Makenna, Amberly 10/07/2024 Documentation Only [facility] [address] [place] [address] Makenna, Amberly 10/07/2024 Documentation Only [facility] [address] [place] [address] Makenna, Amberly 10/07/2024 Documentation Only [facility] [address] [place] [address] Makenna, Amberly 10/07/2024 Documentation Only [facility] [address] [address] Makenna, Amberly 10/07/2024 Documentation Only [facility] [address] [place] [address] Makenna, Amberly 10/07/2024 Documentation Only [facility] [address] [place] [address] Makenna, Amberly 10/07/2024 Documentation Only [facility] [address] [address] Makenna, Amberly 10/07/2024 Documentation Only [facility] [address] [address] Makenna, Amberly 10/07/2024 Documentation Only [facility] [address] [place] [address] Makenna, Amberly 10/07/2024 Documentation Only [facility] [address] [place] [address] Makenna, Amberly 10/07/2024 Documentation Only [facility] [address] [place] [address] Makenna, Amberly 10/07/2024 Documentation Only [facility] [address] [place] [address] Makenna, Amberly 10/07/2024 Documentation Only [facility] [address] [address] Makenna, Amberly 10/07/2024 Documentation Only [facility] [address] [address] Makenna, Amberly 10/07/2024 Documentation Only [facility] [address] [place] [address] Amberly Mensah from Last 3 Months [...] 07/30 Influenza Vaccine (#1) 2024 08/31/2015 Insurance [facility] Care Teams Financial Institution Manager Relationship Specialty Start Date End Date Barbie Krueger MD [address] [place] [address] PCP - General 09/22/19
--- OUTSIDE RECORDS SUMMARY | 2024-12-25 15:30 | XMS_ITS | Encounter Summary ---
Author Organization [facility], Address [address] [place] [address] Phone Care Team Providers Care Boat Rental Clerk Name Role Phone Barbie Krueger MD Primary Care Prov ider Encounter Details Date Type Department Care Team (Late st Contact Info) Description 10/07/2024 Documentation Only [facility], [address] [place] [address] Amberly Mensah [address] [place] [phone] Social History Tobacco Use Types Packs/Day Years [...] on filedocumented in this encounter Care Teams Boat Rental Clerk Relationship Specialty Start Date End Date Barbie Krueger MD [address] [place] [address] PCP - General 09/22/19 documented as of this encounter
--- OUTSIDE RECORDS SUMMARY | 2024-12-25 15:30 | XMS_ITS | Encounter Summary ---
Author Organization [facility], Address [address] [place] [address] Phone Care Team Providers Care Matrix Plater Name Role Phone Barbie Krueger MD Primary Care Prov ider Encounter Details Date Type Department Care Team (Late st Contact Info) Description 10/07/2024 Documentation Only [facility], [address] [place] [address] Amberly Mensah [address] [place] [phone] Social History Tobacco Use Types Packs/Day Years [...] on filedocumented in this encounter Care Teams Matrix Plater Relationship Specialty Start Date End Date Barbie Krueger MD [address] [place] [address] PCP - General 09/22/19 documented as of this encounter
--- OUTSIDE RECORDS SUMMARY | 2024-12-25 15:31 | XMS_ITS | Clinical Summary ---
Author Organization [employer] [facility] Address [address] [facility] 7t [place] [address] Care Team Providers Care Watch Band Assembler Name Role Phone Unavailable Primary Care Provider Unavailabl e Encounters Date Type Department Care Team Description 12/18/2024 Orders Only [facility] External Provider, [facility] from Last 3 Months Social History Tobacco Use Types Packs/Day Years Used Date Smoking Tobacco: Never Assessed Comments Unknown Sex and Gender Information Value Date Recorded Sex Assigned at Female 09/17/2022 10:15 AM EDT Legal Sex Female 10:15 AM EDT Gender Identity Not on file Sexual Orientation Not on file Plan of Treatment Health Maintenance Due Date Last Done Comments CT Colonography 1977 Colonoscopy 1977 Colorectal Cancer Screening 1977 Depression Screening 1977 FIT DNA/Cologuard 1977 FIT 1977 FOBT 1977 Sigmoidoscopy 1977 Alcohol/Substance Use Screening 1989 Tobacco Screening 1989 Family Planning (PISQ) 1992 DTaP/Tdap/Td Vaccines (1 - Tdap) 1996 Hepatitis B Vaccines (1 of 3 - 19+ 3-dose series) 1996 Pap Smear 1998 Cervical Cancer Screening 2007 HPV/Cotest 2007 Mammogram 2017 COVID-19 Vaccine ( - 2023-2 5 season) 2024 Influenza Vaccine (#1) 2024 08/31/2015 Zoster Vaccines (1 of 2) 2027 RSV Patients and Pa tients Aged 60 years or older (1 - 1-dose 75+ series) 2052 HIB Vaccines Aged Out No longer eligi ble based on patient's age to complete this topic HPV Vaccines Aged Out No longer eligi ble based on patient's age to complete this topic Hepatitis A Vaccines Aged Out No long er eligible based on patient's age to complete this topic IPV Vaccines Aged Out No longer eligi ble based on patient's age to complete this topic Meningococcal Vaccine Aged Out No shaka maria t eligible based on patient's age to complete this topic Pneumococcal Vaccine: Pediat rics (0 to 5 Years) and At-Risk Patients (6 to 49) Years) Aged Out No longer elig ible based on patient's age to complete this topic RSV under 20 months Aged Out No longe r eligible based on patient's age to complete this topic Rotavirus Vaccines Aged Out No longer eligible based on patient's age to complete this topic Procedures Procedure Name Priority Date/Time Associated Diagnosis Comments COMPREHENSIVE METABOLIC PANEL Routine 12/18/2024 5:01 AM EST LACTIC ACID Routine 12/18/2024 5:01 AM EST CBC WITH AUTO DIFFERENTIAL Routine 12/18/2024 5:01 AM EST SARS COV2/INFLUENZA A/B AND RSV RNA QL NAAT Routine 12/18/2024 4:54 AM EST XR CHEST 1 VIEW Routine 12/18/2024 4:39 AM EST from Last 3 Months Results * (ABNORMAL) CBC auto differential (12/18/2024 5:01 AM EST) White Blood Count 12.9(H) 4.8 - 10.8 X10*3/uL [facility] Red Blood Count 4.60 4.20 - 5.50 X10*6/uL [facility] Hemoglobin 11.8(L) 12.0 - 16.0 g/dl [facility] Hematocrit 38.7 37.0 - 47.0 % [facility] Mean Corpuscular Volume 84.1 80.0 - 98.0 fL [facility] Mean Corpuscular Hemoglobin 25.7(L) 27.0 - 33.0 pg [facility] Mean Corpuscular HGB Conc 30.5(L) 31.0 - 35.0 g/dl [facility] Red Cell Distribution Width 13.5 11.0 - 16.0 % [facility] Platelet Count 174 160 - 400 X10*3/uL [facility] Mean Platelet Volume 9.0(L) 9.4 - 12.3 fL [facility] Neutrophils Percent Auto 67.7 45 - 73 % [facility] Imm Gran Pct Auto 0.6(H) 0.0 - 0.4 % [facility] Lymphocytes Percent Auto 14.6(L) 20 - 40 % [facility] Monocytes Percent Auto 10.2 2 - 11 % [facility] Eosinophils Percent Auto 6.3(H) 0 - 4 % [facility] Basophils Percent Auto 0.6 0 - 2 % [facility] NRBC Pct Auto 0.0 0.0 - 0.2 /100WBC [facility] Neutrophils Absolute Auto 8.7(H) 2.0 - 8.3 x10*3/uL [facility] Imm Gran Abs Auto 0.08(H) 0.00 - 0.03 X10*3/uL [facility] Lymphocytes Absolute Auto 1.9 1.2 - 4.9 X10*3/uL [facility] Monocytes Absolute Auto 1.3(H) 0.1 - 1.2 X10*3/uL [facility] Eosinophils Absolute Auto 0.8(H) 0.0 - 0.4 X10*3/uL [facility] Basophils Absolute Auto 0.1 0.0 - 0.2 X10*3/uL [facility] NRBC Abs Auto 0.000 0.0 - 0.012 X10*3/uL [facility] 12/18/2024 5:01 AM EST 12/18/2024 5:08 AM EST us Generic External Data Provider LAB BLOOD ORDERAB LES Final Result [facility] [address] [place] [address] [phone] * Lactic Acid (12/18/2024 5:01 AM EST) Lactic Acid 0.9 0.5 - 2.0 mmol/L [facility] 12/18/2024 5:01 AM EST 12/18/2024 5:08 AM EST us Generic External Data Provider LAB BLOOD ORDERAB LES Final Result [facility] [address] [place] [address] [phone] * (ABNORMAL) Comprehensive Metabolic Panel (12/18/2024 5:01 AM EST) Sodium 142 135 - 145 mmol/L [facility] Potassium 4.2 3.3 - 5.1 mmol/L [facility] Chloride 105 96 - 108 mmol/L [facility] Carbon Dioxide 28 22 - 29 mmol/L [facility] Anion Gap 13 12 - 20 [facility] Urea Nitrogen (BUN) 19(H) 9 - 16 mg/dL [facility] Creatinine, Serum 0.75 0.5 - 1.4 mg/dL [facility] Creatinine Clr Calc Pharmacy 70.0 [facility] Comment:Provided height and weight: 154.94 cm,56.699 kg.eGFR (calculated from the MDRD study equation) and eCrCl(calculated from the Cockcroft-Gault equation) are based ondifferent parameters and may not yield comparable results.If eCrCl result is absurd, please check patient'sheight/weight. Estimated Glomerular Filt Rate >60 [facility] Comment:Chronic Kidney Disea se: Estimated GFR < 60 mL/min/[id number] Kidney Disease: Estimated GFR < 15 mL/min/1.73m2 Glucose 90 60 - 115 mg/dL [facility] Calcium 9.6 8.4 - 10.2 mg/dL [facility] Bilirubin, Total 0.2 0.0 - 1.0 mg/dL [facility] Aspartate Amino Transferase 77(H) 5 - 31 U/L [facility] Alanine Aminotransferase 37(H) 0 - 31 U/L [facility] Total Protein 6.6 6.5 - 8.0 g/dL [facility] Albumin Level 3.6 3.5 - 5.0 g/dL [facility] Alkaline Phosphatase 192(H) 39 - 117 U/L [facility] 12/18/2024 5:01 AM EST 12/18/2024 5:08 AM EST us Generic External Data Provider LAB BLOOD ORDERAB LES Final Result Performing Organization Address City/[facility]/ZIP Co de Phone Number [facility] [address] [place] [address] [phone] * SARS-CoV-2 RNA, Influenza A/B, and RSV RNA, Ql NAAT (12/18/2024 4:54 AM EST) Influenza A PCR NEGATIVE Negative [facility] Influenza B PCR NEGATIVE Negative [facility] Resp Syncy Virus RNA Qual PCR NEGATIVE Negative [facility] SARS COV2 PCR NEGATIVE Negative [facility] Comment:All test results mus t be correlated with clinical findings.Negative results do not preclude SARS-CoV2, influenza Avirus, influenza B virus and/or RSV infectionand should not be used as the sole basis for treatment orother patient management decisions. Negative results must becombined with clinical observations, patient history, andepidemiological information.This test has not been evaluated for monitoring treatment ofinfection.This test has been authorized by the FDA under an EmergencyUse Authorization (EUA) for use by authorized laboratories.Testing performed on the [employer] GeneXpert utilizingreal-time RT-PCR.All SARS CoV2 and positive influenza A/B results arereported to [facility]. 12/18/2024 4:54 AM EST 12/18/2024 5:08 AM EST us Generic External Data Provider LAB MICROBIOLOGY - GENERAL ORDERABLES Final Result Performing Organization Address City/[facility]/ZIP Co de Phone Number [facility] [address] [place] [address] [phone] * XR Chest 1 View (12/18/2024 4:39 AM EST) Anatomical Region Laterality Modality Chest Radiographic Angelia ging 12/18/2024 4:39 AM EST Narrative 12/18/2024 4:41 AM EST ? [facility] ?[address] ?[place] [address] ?XRay Report ? Signed ? Patient: Era,Emiliana M ?MR#: [id number] ?? [id number] ? : 1975 ?Acct:[id number] ? Age/Sex: 49 / F ?ADM Date: 12/18/24 ? Loc: HO.ED ? Attending Dr: ? Ordering Physician: Generic ED Physician ?? Date of Service: 12/18/24 ?? Procedure(s): XR chest 1V ?? Accession Number(s): [id number] ? cc: Generic ED Physician; [facility] ? CLINICAL HISTORY: cough ? 1 view chest x-ray. ? Comparison: CR/SR - XR CHEST 1V - 10/21/24 03:23 EST ? Findings: ?? No pneumothorax or effusion. Subtle interstitial opacities are ?? redemonstrated within the bilateral lungs. Heart size normal. ?? Multiple old bilateral rib fractures are redemonstrated. ? Impression: ?? 1. Subtle nonspecific interstitial opacities redemonstrated within the ?? bilateral lungs, not significantly changed in appearance as compared to ?? the prior exam. ? This document has been electronically signed by: Jagdish Hadley MD on ?? 12/18/2024 04:39:46 ? Dictated By: ?Jagdish Hadley MD ? Signed By: ?<Electronically signed by Jagdish Hadley MD in OV> ? 12/18/24 0441 ? DD/ 0439 ? TD/TT: 12/18/24 0439 ? [employer]: ? Procedure Note Vj, Sushant - 12/18/[address] [address] XRay Report Signed Patient: Emiliana Rea [facility]#: [id number] : 1975Acct:[id number] Age/Sex: 49 / FADM Date: 12/18/24 Loc: HO.ED Attending Dr: Ordering Physician: Generic ED Physician Date of Service: 12/18/24 Procedure(s): XR chest 1V Accession Number(s): [id number] cc: Generic ED Physician; [facility] CLINICAL HISTORY: cough 1 view chest x-ray. Comparison: CR/SR - XR CHEST 1V - 10/21/24 03:23 EST Findings: No pneumothorax or effusion. Subtle interstitial opacities are redemonstrated within the bilateral lungs. Heart size normal. Multiple old bilateral rib fractures are redemonstrated. Impression: 1. Subtle nonspecific interstitial opacities redemonstrated within the bilateral lungs, not significantly changed in appearance as compared to the prior exam. This document has been electronically signed by: Jagdish Hadley MD on 12/18/2024 04:39:46 Dictated By: Jagdish Hadley MD Signed By: <Electronically signed by Jagdish Hadley MD in OV> 12/18/24 0441 DD/ TD/TT: 12/18/24438 [employer]: [facility] External Provider IMG XR PROCEDURES Edited Result - Final from Last 3 Months
--- OUTSIDE RECORDS SUMMARY | 2024-12-25 15:31 | XMS_ITS | Encounter Summary ---
Author Organization [facility], Address [address] [place] [address] Phone Care Team Providers Care Hat Cone Inspector Name Role Phone Barbie Krueger MD Primary Care Prov ider Encounter Details Date Type Department Care Team (Late st Contact Info) Description 10/07/2024 Documentation Only [facility], [address] [place] [address] Amberly Mensah [address] [place] [phone] Social History Tobacco Use Types Packs/Day Years [...] on filedocumented in this encounter Care Teams Hat Cone Inspector Relationship Specialty Start Date End Date Barbie Krueger MD [address] [place] [phone] PCP - General 09/22/19 documented as of this encounter
--- OUTSIDE RECORDS SUMMARY | 2024-12-25 15:31 | XMS_ITS | Encounter Summary ---
Author Organization [facility], Address [address] [place] [address] Phone Care Team Providers Care Livestock Feeder Name Role Phone Barbie Krueger MD Primary Care Prov ider Encounter Details Date Type Department Care Team (Late st Contact Info) Description 10/07/2024 Documentation Only [facility], [address] [place] [address] Amberly Mensah [address] [place] [phone] Social History Tobacco Use Types Packs/Day Years [...] on filedocumented in this encounter Care Teams Livestock Feeder Relationship Specialty Start Date End Date Barbie Krueger MD [address] [place] [phone] PCP - General 09/22/19 documented as of this encounter
--- OUTSIDE RECORDS SUMMARY | 2024-12-25 15:31 | XMS_ITS | Encounter Summary ---
Author Organization [facility], Address [address] [place] [address] Phone Care Team Providers Care Assembler Semiconductor Name Role Phone Barbie Krueger MD Primary Care Prov ider Encounter Details Date Type Department Care Team (Late st Contact Info) Description 10/07/2024 Documentation Only [facility], [address] [place] [address] Amberly Mensah [address] [place] [phone] Social History Tobacco Use Types Packs/Day Years [...] on filedocumented in this encounter Care Teams Assembler Semiconductor Relationship Specialty Start Date End Date Barbie Krueger MD [address] [place] [phone] PCP - General 09/22/19 documented as of this encounter
--- OUTSIDE RECORDS SUMMARY | 2024-12-25 15:31 | XMS_ITS | Encounter Summary ---
Author Organization [facility], Address [address] [place] [address] Phone Care Team Providers Care Video Tape Editor Name Role Phone Barbie Krueger MD Primary Care Prov ider Encounter Details Date Type Department Care Team (Late st Contact Info) Description 10/07/2024 Documentation Only [facility], [address] [place] [address] Amberly Mensah [address] [place] [phone] Social History Tobacco Use Types Packs/Day Years [...] on filedocumented in this encounter Care Teams Video Tape Editor Relationship Specialty Start Date End Date Barbie Krueger MD [address] [place] [phone] PCP - General 09/22/19 documented as of this encounter
--- OUTSIDE RECORDS SUMMARY | 2024-12-25 15:31 | XMS_ITS | Encounter Summary ---
Author Organization [facility] Address [address] [place] [address] [address] [place] [address] Care Team Providers Care Hearing Stenographer Name Role Phone Unavailable Primary Care Provider Unavailabl e Encounter Details Date Type Department Care Team (Late st Contact Info) Description 12/18/2024 Orders Only [facility] External Provider, [facility] Social History Tobacco Use Types Packs/Day Years Used Date Smoking Tobacco: Never Assessed Comments Unknown Sex and Gender Information Value Date Recorded Sex Assigned at Female 09/17/2022 10:15 AM EDT Legal Sex Female 10:15 AM EDT Gender Identity Not on file Sexual Orientation Not on file documented as of this encounter Plan of Treatment Not on file documented as of this encounter Procedures Procedure Name Priority Date/Time Associated Diagnosis Comments CBC WITH AUTO DIFFERENTIAL Routine 12/18/2024 5:01 AM EST LACTIC ACID Routine 12/18/2024 5:01 AM EST COMPREHENSIVE METABOLIC PANEL Routine 12/18/2024 5:01 AM EST SARS COV2/INFLUENZA A/B AND RSV RNA QL NAAT Routine 12/18/2024 4:54 AM EST XR CHEST 1 VIEW Routine 12/18/2024 4:39 AM EST documented in this encounter Results * (ABNORMAL) Comprehensive Metabolic Panel (12/18/2024 5:01 AM EST) Sodium 142 135 - 145 mmol/L [facility] Potassium 4.2 3.3 - 5.1 mmol/L [facility] Chloride 105 96 - 108 mmol/L [facility] Carbon Dioxide 28 22 - 29 mmol/L [facility] Anion Gap 13 12 - 20 [facility] Urea Nitrogen (BUN) 19(H) 9 - 16 mg/dL [facility] Creatinine, Serum 0.75 0.5 - 1.4 mg/dL [facility] Creatinine Clr Calc Pharmacy 70.0 [facility] Comment:Provided height and weight: 154.94 cm,56.699 kg.eGFR (calculated from the MDRD study equation) and eCrCl(calculated from the Cockcroft-Gault equation) are based ondifferent parameters and may not yield comparable results.If eCrCl result is absurd, please check patient'sheight/weight. Estimated Glomerular Filt Rate >60 [facility] Comment:Chronic Kidney Disea se: Estimated GFR < 60 mL/min/[id number] Kidney Disease: Estimated GFR < 15 mL/min/1.73m2 Glucose 90 60 - 115 mg/dL [facility] Calcium 9.6 8.4 - 10.2 mg/dL [facility] Bilirubin, Total 0.2 0.0 - 1.0 mg/dL [facility] Aspartate Amino Transferase 77(H) 5 - 31 U/L [facility] Alanine Aminotransferase 37(H) 0 - 31 U/L [facility] Total Protein 6.6 6.5 - 8.0 g/dL [facility] Albumin Level 3.6 3.5 - 5.0 g/dL [facility] Alkaline Phosphatase 192(H) 39 - 117 U/L [facility] 12/18/2024 5:01 AM EST 12/18/2024 5:08 AM EST us Generic External Data Provider LAB BLOOD ORDERAB LES Final Result [facility] [address] [place] [phone] * Lactic Acid (12/18/2024 5:01 AM EST) Lactic Acid 0.9 0.5 - 2.0 mmol/L [facility] 12/18/2024 5:01 AM EST 12/18/2024 5:08 AM EST us Generic External Data Provider LAB BLOOD ORDERAB LES Final Result [facility] [address] [place] [address] [phone] * (ABNORMAL) CBC auto differential (12/18/2024 5:01 AM EST) White Blood Count 12.9(H) 4.8 - 10.8 X10*3/uL [facility] Red Blood Count 4.60 4.20 - 5.50 X10*6/uL [facility] Hemoglobin 11.8(L) 12.0 - 16.0 g/dl [facility] Hematocrit 38.7 37.0 - 47.0 % [facility] Mean Corpuscular Volume 84.1 80.0 - 98.0 fL [facility] Mean Corpuscular Hemoglobin 25.7(L) 27.0 - 33.0 pg [facility] Mean Corpuscular HGB Conc 30.5(L) 31.0 - 35.0 g/dl [facility] Red Cell Distribution Width 13.5 11.0 - 16.0 % [facility] Platelet Count 174 160 - 400 X10*3/uL [facility] Mean Platelet Volume 9.0(L) 9.4 - 12.3 fL [facility] Neutrophils Percent Auto 67.7 45 - 73 % [facility] Imm Gran Pct Auto 0.6(H) 0.0 - 0.4 % [facility] Lymphocytes Percent Auto 14.6(L) 20 - 40 % [facility] Monocytes Percent Auto 10.2 2 - 11 % [facility] Eosinophils Percent Auto 6.3(H) 0 - 4 % [facility] Basophils Percent Auto 0.6 0 - 2 % [facility] NRBC Pct Auto 0.0 0.0 - 0.2 /100WBC [facility] Neutrophils Absolute Auto 8.7(H) 2.0 - 8.3 x10*3/uL [facility] Imm Gran Abs Auto 0.08(H) 0.00 - 0.03 X10*3/uL [facility] Lymphocytes Absolute Auto 1.9 1.2 - 4.9 X10*3/uL [facility] Monocytes Absolute Auto 1.3(H) 0.1 - 1.2 X10*3/uL [facility] Eosinophils Absolute Auto 0.8(H) 0.0 - 0.4 X10*3/uL [facility] Basophils Absolute Auto 0.1 0.0 - 0.2 X10*3/uL [facility] NRBC Abs Auto 0.000 0.0 - 0.012 X10*3/uL [facility] 12/18/2024 5:01 AM EST 12/18/2024 5:08 AM EST us Generic External Data Provider LAB BLOOD ORDERAB LES Final Result [facility] [address] [place] [phone] * SARS-CoV-2 RNA, Influenza A/B, and RSV RNA, Ql NAAT (12/18/2024 4:54 AM EST) Influenza A PCR NEGATIVE Negative [facility] Influenza B PCR NEGATIVE Negative [facility] Resp Syncy Virus RNA Qual PCR NEGATIVE Negative [facility] SARS COV2 PCR NEGATIVE Negative [facility] Comment:All test results mus t be [...] use by authorized laboratories.Testing performed on the [employer] GeneXpert utilizingreal-time RT-PCR.All SARS CoV2 and positive influenza A/B results arereported to [facility]. 12/18/2024 4:54 AM EST 12/18/2024 5:08 AM EST us Generic External Data Provider LAB MICROBIOLOGY - GENERAL ORDERABLES Final Result [facility] [address] [facility] [place] [address] [phone] * XR Chest 1 View (12/18/2024 4:39 AM EST) Anatomical Region Laterality Modality Chest Radiographic Angelia ging 12/18/2024 4:39 AM EST Narrative 12/18/2024 4:41 AM EST ? [facility] ?[address] ?[place] [address] ?XRay Report ? Signed ? Patient: Emiliana Rea ?MR#: [id number] ?? [id number] ? : 1975 ?Acct:[id number] ? Age/Sex: 49 / F ?ADM Date: 12/18/24 ? Loc: HO.ED ? Attending Dr: ? Ordering Physician: Generic ED Physician ?? Date of Service: 12/18/24 ?? Procedure(s): XR chest 1V ?? Accession Number(s): [id number] ? cc: Generic ED Physician; [facility] ? CLINICAL HISTORY: cough ? 1 [...] by Jagdish Hadley MD in OV> ? 12/18/24440 ? DD/ 8 ? TD/TT: 12/18/24 0439 ? [place] Physical Therapist: ? Procedure Note Donotuseinterpreter, Image - 12/18/[address] [address] XRay Report Signed Patient: Emiliana Rea MMR#: [id number] : 1975Acct:[id number] Age/Sex: 49 / FADM Date: 12/18/24 Loc: HO.ED Attending Dr: Ordering Physician: Generic ED Physician Date of Service: 12/18/24 Procedure(s): XR chest 1V Accession Number(s): [id number] cc: Generic ED Physician; [facility] CLINICAL HISTORY: cough 1 view chest [...] Hadley MD in OV> 12/18/24 0441 DD/ 8 TD/TT: 12/18/24438 [place] Physical Therapist: [facility] External Provider IMG XR PROCEDURES Edited Result - Final documented in this encounter Visit Diagnoses Not on filedocumented in this encounter
--- OUTSIDE RECORDS SUMMARY | 2024-12-25 15:31 | XMS_ITS | Encounter Summary ---
Author Organization [facility], Address [address] [place] [address] Phone Care Team Providers Care Retail Wireless Sales Representative Name Role Phone Barbie Krueger MD Primary Care Prov ider Encounter Details Date Type Department Care Team (Late st Contact Info) Description 10/07/2024 Documentation Only [facility], [address] [place] [address] Amberly Mensah [address] [place] [phone] Social History Tobacco Use Types Packs/Day Years [...] on filedocumented in this encounter Care Teams Retail Wireless Sales Representative Relationship Specialty Start Date End Date Barbie Krueger MD [address] [place] [phone] PCP - General 09/22/19 documented as of this encounter
--- OUTSIDE RECORDS SUMMARY | 2024-12-25 15:31 | XMS_ITS | Encounter Summary ---
Author Organization [facility], Address [address] [place] [address] Phone Care Team Providers Care Assistant Hall Director Name Role Phone Barbie Krueger MD Primary Care Prov ider Encounter Details Date Type Department Care Team (Late st Contact Info) Description 10/07/2024 Documentation Only [facility], [address] [place] [address] Amberly Mensah [address] [place] [phone] Social History Tobacco Use Types Packs/Day Years [...] on filedocumented in this encounter Care Teams Assistant Hall Director Relationship Specialty Start Date End Date Barbie Krueger MD [address] [place] [address] PCP - General 09/22/19 documented as of this encounter
--- OUTSIDE RECORDS SUMMARY | 2024-12-25 15:31 | XMS_ITS | Encounter Summary ---
Author Organization [facility], Address [address] [place] [address] Phone Care Team Providers Care Warehouse Freight Handler Name Role Phone Barbie Krueger MD Primary Care Prov ider Encounter Details Date Type Department Care Team (Late st Contact Info) Description 10/07/2024 Documentation Only [facility], [address] [place] [address] Amberly Mensah [address] [place] [phone] Social History Tobacco Use Types Packs/Day Years [...] on filedocumented in this encounter Care Teams Warehouse Freight Handler Relationship Specialty Start Date End Date Barbie Krueger MD [address] [place] [address] PCP - General 09/22/19 documented as of this encounter
--- OUTSIDE RECORDS SUMMARY | 2024-12-25 15:31 | XMS_ITS | Encounter Summary ---
Author Organization [facility], Address [address] [place] [address] Phone Care Team Providers Care Sample Cutter Name Role Phone Barbie Krueger MD Primary Care Prov ider Encounter Details Date Type Department Care Team (Late st Contact Info) Description 10/07/2024 Documentation Only [facility], [address] [place] [address] Amberly Mensah [address] [place] [phone] Social History Tobacco Use Types Packs/Day Years [...] on filedocumented in this encounter Care Teams Sample Cutter Relationship Specialty Start Date End Date Barbie Krueger MD [address] [place] [phone] PCP - General 09/22/19 documented as of this encounter
--- OUTSIDE RECORDS SUMMARY | 2024-12-25 15:31 | XMS_ITS | Encounter Summary ---
Author Organization [facility], Address [address] [place] [address] Phone Care Team Providers Care Doctor Of Medicine Name Role Phone Barbie Krueger MD Primary Care Prov ider Encounter Details Date Type Department Care Team (Late st Contact Info) Description 10/07/2024 Documentation Only [facility], [address] [place] [address] Amberly Mensah [address] [place] [phone] Social History Tobacco Use Types Packs/Day Years [...] on filedocumented in this encounter Care Teams Doctor Of Medicine Relationship Specialty Start Date End Date Barbie Krueger MD [address] [place] [address] PCP - General 09/22/19 documented as of this encounter
--- OUTSIDE RECORDS SUMMARY | 2024-12-25 15:31 | XMS_ITS | Encounter Summary ---
Author Organization [facility], Address [address] [place] [address] Phone Care Team Providers Care Roll Line Operator Name Role Phone Barbie Krueger MD Primary Care Prov ider Encounter Details Date Type Department Care Team (Late st Contact Info) Description 10/07/2024 Documentation Only [facility], [address] [place] [address] Amberly Mensah [address] [place] [phone] Social History Tobacco Use Types Packs/Day Years [...] on filedocumented in this encounter Care Teams Roll Line Operator Relationship Specialty Start Date End Date Barbie Krueger MD [address] [place] [address] PCP - General 09/22/19 documented as of this encounter
--- OUTSIDE RECORDS SUMMARY | 2024-12-25 15:31 | XMS_ITS | Encounter Summary ---
Author Organization [facility], Address [address] [place] [address] Phone Care Team Providers Care Property Supervisor Name Role Phone Barbie Krueger MD Primary Care Prov ider Encounter Details Date Type Department Care Team (Late st Contact Info) Description 10/07/2024 Documentation Only [facility], [address] [place] [address] Amberly Mensah [address] [place] [phone] Social History Tobacco Use Types Packs/Day Years [...] on filedocumented in this encounter Care Teams Property Supervisor Relationship Specialty Start Date End Date Barbie Krueger MD [address] [place] [address] PCP - General 09/22/19 documented as of this encounter
--- OUTSIDE RECORDS SUMMARY | 2024-12-25 15:31 | XMS_ITS | Encounter Summary ---
Author Organization [facility], Address [address] [place] [address] Phone Care Team Providers Care Car Dispatcher Name Role Phone Barbie Krueger MD Primary Care Prov ider Encounter Details Date Type Department Care Team (Late st Contact Info) Description 10/07/2024 Documentation Only [facility], [address] [place] [address] Amberly Mensah [address] [place] [phone] Social History Tobacco Use Types Packs/Day Years [...] on filedocumented in this encounter Care Teams Car Dispatcher Relationship Specialty Start Date End Date Barbie Krueger MD [address] [place] [phone] PCP - General 09/22/19 documented as of this encounter
--- OUTSIDE RECORDS SUMMARY | 2024-12-25 15:31 | XMS_ITS | Encounter Summary ---
Author Organization [facility], Address [address] [place] [address] Phone Care Team Providers Care Educational/Development Assistant Name Role Phone Barbie Krueger MD Primary Care Prov ider Encounter Details Date Type Department Care Team (Late st Contact Info) Description 10/07/2024 Documentation Only [facility], [address] [place] [address] Amberly Mensah [address] [place] [phone] Social History Tobacco Use Types Packs/Day Years [...] on filedocumented in this encounter Care Teams Educational/Development Assistant Relationship Specialty Start Date End Date Barbei Krueger MD [address] [place] [phone] PCP - General 09/22/19 documented as of this encounter
--- OUTSIDE RECORDS SUMMARY | 2024-12-25 15:31 | XMS_ITS | Encounter Summary ---
Author Organization [facility], Address [address] [place] [address] Phone Care Team Providers Care Certified Welding Inspector Name Role Phone Barbie Krueger MD Primary Care Prov ider Encounter Details Date Type Department Care Team (Late st Contact Info) Description 10/07/2024 Documentation Only [facility], [address] [place] [address] Amberly Mensah [address] [place] [phone] Social History Tobacco Use Types Packs/Day Years [...] on filedocumented in this encounter Care Teams Certified Welding Inspector Relationship Specialty Start Date End Date Barbie Krueger MD [address] [place] [phone] PCP - General 09/22/19 documented as of this encounter
[2024-12-25 16:03] VITALS: BP 143/69; PULSE 91; RESP 16; TEMP 36.8; O2SAT 96; BMI 23.6
== END 2024-12-25 17:41 | disposition home or self-care (01) ==
PROVIDERS: PCP Nurse Practitioner Family; Visit Provider Nurse Practitioner Family
DX: L03.115 Cellulitis of right lower limb (principal); F41.9 Anxiety disorder, unspecified; F32.A Depression, unspecified; R03.0 Elevated blood-pressure reading, without diagnosis of hypertension; E03.9 Hypothyroidism, unspecified; R74.01 Elevation of levels of liver transaminase levels

== ENCOUNTER → 2024-12-25 15:27 | Outpatient (BNVA) | payer OTHER, SELFPAY | PROVIDERS: PCP Nurse Practitioner Family; Visit Provider Nurse Practitioner Family | DX: L03.115 Cellulitis of right lower limb (principal); F41.9 Anxiety disorder, unspecified; F32.A Depression, unspecified; R03.0 Elevated blood-pressure reading, without diagnosis of hypertension; E03.9 Hypothyroidism, unspecified; R74.01 Elevation of levels of liver transaminase levels | CPT/HCPCS: 96127; 99212 ==

== ENCOUNTER 2025-01-01 15:09 | Outpatient (AMB) | payer MEDICAID, SELFPAY ==
--- NOTE | 2025-01-01 14:51 | HO.NEPHOV ---
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 She also had antiphospholipid lipid antibody. She is currently on anticoagulation. She had been on prednisone and hydroxychloroquine along with other medications in the past. She was on mycophenolate at some point but could not get mycophenolate later due to insurance issues but was on methotrexate which was discontinued due to recurrent cellulitis. She is currently on sulfasalazine in addition to prednisone and hydroxychloroquine. Her renal functions have been stable. Her blood pressure has been at goal. She avoids nonsteroidal anti-inflammatories. She has strong family history of renal disease in her mother and grandmother. She does not have any history of renal infarction or ongoing hematuria. She is not on any diuretics or CHRIS inhibitor/ARB. She has not have any active systemic complaints at the time of this office visit. [facility] Medical History (Updated 01/01/25 @ 15:00 by Christopher Shelley MD) Lupus Sepsis Depression Anxiety Kidney disease Headache Swelling Arthritis Hx of blood clots Sinusitis Asthma Stasis dermatitis Bilateral lower leg cellulitis Cellulitis COPD (chronic obstructive pulmonary disease) Lung density on x-ray Smoker COPD (chronic obstructive pulmonary disease) with acute bronchitis Bilateral pneumonia Tobacco abuse C. difficile colitis Community acquired pneumonia Bilateral pneumonia Open wound of right elbow Respiratory failure with hypoxia Pneumonia due to COVID-19 virus Acute respiratory distress syndrome (ARDS) due to COVID-19 virus Acute exacerbation of chronic obstructive airways disease Acute hypoxemic respiratory failure due to COVID-19 Ulcer of lower extremity Sepsis with acute hypoxic respiratory failure without septic shock Encounter for testing for latent tuberculosis infection Falling Charcot's joint of foot Cellulitis Redness and swelling of lower leg C. difficile colitis Secondary bacterial pneumonia Immunosuppression due to chronic steroid use Mixed connective tissue disease Cellulitis of right leg PAD (peripheral artery disease) Varicose veins of right lower extremity with inflammation Rheumatoid arthritis Cellulitis CVA (cerebral vascular accident) Proteinuria Fibromyalgia Hypothyroid Surgical History Status post incision and drainage History of breast lump/mass excision History of excision of mass History of partial hysterectomy History of cholecystectomy History of bunionectomy Family History Father No problems noted. Mother Lung cancer Rheumatoid arthritis Social History Household Members: Family Household Members Other:: My twin sons Housing: House Housing Other:: second floor Do you presently have visiting nurse or other home services: No Alcohol intake: former Comment: pt asleep Patient Tobacco Use Status: Current everyday Tobacco user Tobacco use type: Cigarette Cigarette Packs Per Day: 1 Cigarettes Per Day: 20.0 Years Smoked: 30 e-Cigarette/Vaping Use: Never Used Second Hand Smoke Exposure: No Substance Use Type: Marijuana Advance Directives Date on File: 11/26/21 service: No Current occupational status: unemployed and disabled Current occupation: right hand dominant Cognitive needs: No Hearing needs: No Vision needs: Yes Review of Systems Const All systems reviewed & are unremarkable except as noted in HPI and below Telehealth Telehealth Telehealth Platform: Telephone Location of provider rendering services: practice address Location of patient: address on file Patient Identification confirmed using: Name, : Yes Telehealth method: voice only Patient verbally consented to treatment: Yes Patient verbally consented to billing insurance company: Yes Patient informed of any privacy concerns related to visit: No Results Reviewed Nephrology Results: Hgb 11.8 g/dl (12.0-16.0) L 12/18/24 WBC 12.9 X10*3/uL (4.8-10.8) H 12/18/24 Plt Count 174 X10*3/uL (160-400) 12/18/24 Sodium 142 mmol/L (135-145) 12/18/24 Potassium 4.2 mmol/L (3.3-5.1) 12/18/24 Chloride 105 mmol/L (96-108) 12/18/24 Carbon Dioxide 28 mmol/L (22-29) 12/18/24 BUN 19 mg/dL (9-16) H 12/18/24 Creatinine 0.75 mg/dL (0.5-1.4) 12/18/24 Calcium 9.6 mg/dL (8.4-10.2) 12/18/24 Urine Protein Negative mg/dL (Neg-Trace) 10/08/24 Urine Creatinine 86.45 mg/dL 10/08/24 Protein/Creatinin Ratio 0.10 (<0.2) 10/08/24 Assessment & Plan Assessment & Plan (1) Lupus: Comment: dx around 2003 (immune complex mediated Gomerulonephritis, membranous glomerulonephritis, inflammatory arthritis, +APLA syndrome, ++DSdna, low C3, low C4, +++ ACL IgM, +++ B2GP IgM) HCQ + prednisone throughout MTX DC due to recurrent cellulitis Sulfasalazine started around 2021 Code(s): M32.9 - Systemic lupus erythematosus, unspecified Category: Medical Plan 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 In 2000 she was treated with mycophenolate and high-dose steroids. Her renal functions are at baseline. She is currently on prednisone, hydroxychloroquine and sulfasalazine. She is followed up by public policy associate. She has no history of renal infarction. She is on anticoagulation. She is not on any CHRIS inhibitor now. She avoids nonsteroidal anti-inflammatories and maintain good hydration. I did not make any medication changes today but around explained all these in detail. Further management is pending evolving data. Follow-up appointment given. Orders: Orders Blood Urea Nitrogen 6 Months M32.9 - Systemic lupus erythematosus, unspecified Electrolytes 6 Months M32.9 - Systemic lupus erythematosus, unspecified Protein Creatinine Ratio, Ur 6 Months M32.9 - Systemic lupus erythematosus, unspecified Creatinine 6 Months M32.9 - Systemic lupus erythematosus, unspecified Coding Level of Care Code Est Pt Level 4 (75536) Diagnoses Lupus M32.9
--- OUTSIDE RECORDS SUMMARY | 2025-01-01 15:11 | XMS_ITS | Encounter Summary ---
Author Organization [facility], Address [address] [place] [address] Phone Care Team Providers Care Bi Lead Name Role Phone Barbie Krueger MD Primary Care Prov ider Encounter Details Date Type Department Care Team (Late st Contact Info) Description 10/07/2024 Documentation Only [facility], [address] [place] [address] Amberly Mensah [address] [place] [phone] Social History Tobacco Use Types Packs/Day Years [...] on filedocumented in this encounter Care Teams Bi Lead Relationship Specialty Start Date End Date Barbie Krueger MD [address] [place] [phone] PCP - General 09/22/19 documented as of this encounter
--- OUTSIDE RECORDS SUMMARY | 2025-01-01 15:11 | XMS_ITS | Encounter Summary ---
Author Organization [facility] Address [address] [place] [address] [address] [place] [address] Care Team Providers Care Ironworker Machine Operator Name Role Phone Unavailable Primary Care Provider Unavailabl e Encounter Details Date Type Department Care Team (Late st Contact Info) Description 12/18/2024 Orders Only [facility] External Provider, [facility] Social History Tobacco Use Types Packs/Day Years [...] EST) Sodium 142 135 - 145 mmol/L [facility] Potassium 4.2 3.3 - 5.1 mmol/L [facility] Chloride 105 96 - 108 mmol/L [facility] Carbon Dioxide 28 22 - 29 mmol/L [facility] Anion Gap 13 12 - 20 [facility] Urea Nitrogen (BUN) 19(H) 9 - 16 mg/dL [facility] Creatinine, Serum 0.75 0.5 - 1.4 mg/dL [facility] Creatinine Clr Calc Pharmacy 70.0 [facility] Comment:Provided height and weight: 154.94 cm,56.699 kg.eGFR (calculated from the MDRD study equation) and eCrCl(calculated from the Cockcroft-Gault equation) are based ondifferent parameters and may not yield comparable results.If eCrCl result is absurd, please check patient'sheight/weight. Estimated Glomerular Filt Rate >60 [facility] Comment:Chronic Kidney Disea se: Estimated GFR < 60 mL/min/1.05f2Rscrbt Kidney Disease: Estimated GFR < 15 mL/min/1.73m2 Glucose 90 60 - 115 mg/dL [facility] Calcium 9.6 8.4 - 10.2 mg/dL [facility] Bilirubin, Total 0.2 0.0 - 1.0 mg/dL [facility] Aspartate Amino Transferase 77(H) 5 - 31 U/L [facility] Alanine Aminotransferase 37(H) 0 - 31 U/L [facility] Total Protein 6.6 6.5 - 8.0 g/dL [facility] Albumin Level 3.6 3.5 - 5.0 g/dL [facility] Alkaline Phosphatase 192(H) 39 - 117 U/L [facility] 12/18/2024 5:01 AM EST 12/18/2024 5:08 AM EST us Generic External Data Provider LAB BLOOD ORDERAB LES Final Result [facility] [address] [place] [phone] * Lactic Acid (12/18/2024 5:01 AM EST) Lactic Acid 0.9 0.5 - 2.0 mmol/L [facility] 12/18/2024 5:01 AM EST 12/18/2024 5:08 AM EST us Generic External Data Provider LAB BLOOD ORDERAB LES Final Result [facility] [address] [place] [phone] * (ABNORMAL) CBC auto differential (12/18/2024 5:01 AM EST) White Blood Count 12.9(H) 4.8 - 10.8 X10*3/uL [facility] Red Blood Count 4.60 4.20 - 5.50 X10*6/uL [facility] Hemoglobin 11.8(L) 12.0 - 16.0 g/dl [facility] Hematocrit 38.7 37.0 - 47.0 % [facility] Mean Corpuscular Volume 84.1 80.0 - 98.0 fL [facility] Mean Corpuscular Hemoglobin 25.7(L) 27.0 - 33.0 pg [facility] Mean Corpuscular HGB Conc 30.5(L) 31.0 - 35.0 g/dl [facility] Red Cell Distribution Width 13.5 11.0 - 16.0 % [facility] Platelet Count 174 160 - 400 X10*3/uL [facility] Mean Platelet Volume 9.0(L) 9.4 - 12.3 fL [facility] Neutrophils Percent Auto 67.7 45 - 73 % [facility] Imm Gran Pct Auto 0.6(H) 0.0 - 0.4 % [facility] Lymphocytes Percent Auto 14.6(L) 20 - 40 % [facility] Monocytes Percent Auto 10.2 2 - 11 % [facility] Eosinophils Percent Auto 6.3(H) 0 - 4 % [facility] Basophils Percent Auto 0.6 0 - 2 % [facility] NRBC Pct Auto 0.0 0.0 - 0.2 /100WBC [facility] Neutrophils Absolute Auto 8.7(H) 2.0 - 8.3 x10*3/uL [facility] Imm Gran Abs Auto 0.08(H) 0.00 - 0.03 X10*3/uL [facility] Lymphocytes Absolute Auto 1.9 1.2 - 4.9 X10*3/uL [facility] Monocytes Absolute Auto 1.3(H) 0.1 - 1.2 X10*3/uL [facility] Eosinophils Absolute Auto 0.8(H) 0.0 - 0.4 X10*3/uL [facility] Basophils Absolute Auto 0.1 0.0 - 0.2 X10*3/uL [facility] NRBC Abs Auto 0.000 0.0 - 0.012 X10*3/uL [facility] 12/18/2024 5:01 AM EST 12/18/2024 5:08 AM EST us Generic External Data Provider LAB BLOOD ORDERAB LES Final Result [facility] [address] [place] [phone] * SARS-CoV-2 RNA, Influenza A/B, and RSV RNA, Ql NAAT (12/18/2024 4:54 AM EST) Influenza A PCR NEGATIVE Negative [facility] Influenza B PCR NEGATIVE Negative [facility] Resp Syncy Virus RNA Qual PCR NEGATIVE Negative [facility] SARS COV2 PCR NEGATIVE Negative [facility] Comment:All test results mus t be [...] and positive influenza A/B results arereported to [facility]. 12/18/2024 4:54 AM EST 12/18/2024 5:08 AM EST us Generic External Data Provider LAB MICROBIOLOGY - GENERAL ORDERABLES Final Result [facility] [address] [facility] [place] [address] [phone] * XR Chest 1 View (12/18/2024 4:39 AM EST) Anatomical Region Laterality Modality Chest Radiographic Angelia ging 12/18/2024 4:39 AM EST Narrative 12/18/2024 4:41 AM EST ? [facility] ?[address] ?[place] [address] ?XRay Report ? Signed ? Patient: Emiliana Rea ?MR#: [id number] ?? [id number] ? : 1975 ?Acct:[id number] ? Age/Sex: 49 / F ?ADM Date: 12/18/24 ? Loc: HO.ED ? Attending Dr: ? Ordering Physician: Generic ED Physician ?? Date of Service: 12/18/24 ?? Procedure(s): XR chest 1V ?? Accession Number(s): [id number] ? cc: Generic ED Physician; [facility] ? CLINICAL HISTORY: cough ? 1 [...] DD/ 8 ? TD/TT: 12/18/24 0439 ? Park Maintenance Technician: ? Procedure Note Donotuseinterpreter, Image - 12/18/[address] [address] XRay Report Signed Patient: Emiliana Rea MMR#: [id number] : 1975Acct:[id number] Age/Sex: 49 / FADM Date: 12/18/24 Loc: HO.ED Attending Dr: Ordering Physician: Generic ED Physician Date of Service: 12/18/24 Procedure(s): XR chest 1V Accession Number(s): [id number] cc: Generic ED Physician; [facility] CLINICAL HISTORY: cough 1 view chest [...] OV> 12/18/24 0441 DD/ 8 TD/TT: 12/18/24438 Park Maintenance Technician: [facility] External Provider IMG XR PROCEDURES Edited Result - Final documented in this encounter Visit Diagnoses Not on filedocumented in this encounter
--- OUTSIDE RECORDS SUMMARY | 2025-01-01 15:11 | XMS_ITS | Encounter Summary ---
Author Organization [facility], Address [address] [place] [address] Phone Care Team Providers Care Account Officer Name Role Phone Barbie Krueger MD Primary Care Prov ider Encounter Details Date Type Department Care Team (Late st Contact Info) Description 10/07/2024 Documentation Only [facility], [address] [place] [address] Amberly Mensah [address] [place] [phone] Social History Tobacco Use Types Packs/Day Years [...] on filedocumented in this encounter Care Teams Account Officer Relationship Specialty Start Date End Date Barbie Krueger MD [address] [place] [address] PCP - General 09/22/19 documented as of this encounter
--- OUTSIDE RECORDS SUMMARY | 2025-01-01 15:11 | XMS_ITS | Clinical Summary ---
Author Organization [facility] Address [address] 7t [place] [address] Care Team Providers Care Certified Travel Counselor Name Role Phone Unavailable Primary Care Provider Unavailabl e Encounters Date Type Department Care Team Description 12/18/2024 Orders Only [facility] External Provider, [facility] from Last 3 Months Social History [...] Blood Count 12.9(H) 4.8 - 10.8 X10*3/uL [facility] Red Blood Count 4.60 4.20 - 5.50 X10*6/uL [facility] Hemoglobin 11.8(L) 12.0 - 16.0 g/dl [facility] Hematocrit 38.7 37.0 - 47.0 % [facility] Mean Corpuscular Volume 84.1 80.0 - 98.0 fL [facility] Mean Corpuscular Hemoglobin 25.7(L) 27.0 - 33.0 pg [facility] Mean Corpuscular HGB Conc 30.5(L) 31.0 - 35.0 g/dl [facility] Red Cell Distribution Width 13.5 11.0 - 16.0 % [facility] Platelet Count 174 160 - 400 X10*3/uL [facility] Mean Platelet Volume 9.0(L) 9.4 - 12.3 fL [facility] Neutrophils Percent Auto 67.7 45 - 73 % [facility] Imm Gran Pct Auto 0.6(H) 0.0 - 0.4 % [facility] Lymphocytes Percent Auto 14.6(L) 20 - 40 % [facility] Monocytes Percent Auto 10.2 2 - 11 % [facility] Eosinophils Percent Auto 6.3(H) 0 - 4 % [facility] Basophils Percent Auto 0.6 0 - 2 % [facility] NRBC Pct Auto 0.0 0.0 - 0.2 /100WBC [facility] Neutrophils Absolute Auto 8.7(H) 2.0 - 8.3 x10*3/uL [facility] Imm Gran Abs Auto 0.08(H) 0.00 - 0.03 X10*3/uL [facility] Lymphocytes Absolute Auto 1.9 1.2 - 4.9 X10*3/uL [facility] Monocytes Absolute Auto 1.3(H) 0.1 - 1.2 X10*3/uL [facility] Eosinophils Absolute Auto 0.8(H) 0.0 - 0.4 X10*3/uL [facility] Basophils Absolute Auto 0.1 0.0 - 0.2 X10*3/uL [facility] NRBC Abs Auto 0.000 0.0 - 0.012 X10*3/uL [facility] 12/18/2024 5:01 AM EST 12/18/2024 5:08 AM EST us Generic External Data Provider LAB BLOOD ORDERAB LES Final Result [facility] [address] [place] [address] [phone] * Lactic Acid (12/18/2024 5:01 AM EST) Lactic Acid 0.9 0.5 - 2.0 mmol/L [facility] 12/18/2024 5:01 AM EST 12/18/2024 5:08 AM EST us Generic External Data Provider LAB BLOOD ORDERAB LES Final Result [facility] [address] [place] [address] [phone] * (ABNORMAL) Comprehensive Metabolic Panel (12/18/2024 5:01 AM EST) Sodium 142 135 - 145 mmol/L [facility] Potassium 4.2 3.3 - 5.1 mmol/L [facility] Chloride 105 96 - 108 mmol/L [facility] Carbon Dioxide 28 22 - 29 mmol/L [facility] Anion Gap 13 12 - 20 [facility] Urea Nitrogen (BUN) 19(H) 9 - 16 mg/dL [facility] Creatinine, Serum 0.75 0.5 - 1.4 mg/dL [facility] Creatinine Clr Calc Pharmacy 70.0 [facility] Comment:Provided height and weight: 154.94 cm,56.699 kg.eGFR (calculated from the MDRD study equation) and eCrCl(calculated from the Cockcroft-Gault equation) are based ondifferent parameters and may not yield comparable results.If eCrCl result is absurd, please check patient'sheight/weight. Estimated Glomerular Filt Rate >60 [facility] Comment:Chronic Kidney Disea se: Estimated GFR < 60 mL/min/1.48e3Oikyyz Kidney Disease: Estimated GFR < 15 mL/min/1.73m2 Glucose 90 60 - 115 mg/dL [facility] Calcium 9.6 8.4 - 10.2 mg/dL [facility] Bilirubin, Total 0.2 0.0 - 1.0 mg/dL [facility] Aspartate Amino Transferase 77(H) 5 - 31 U/L [facility] Alanine Aminotransferase 37(H) 0 - 31 U/L [facility] Total Protein 6.6 6.5 - 8.0 g/dL [facility] Albumin Level 3.6 3.5 - 5.0 g/dL [facility] Alkaline Phosphatase 192(H) 39 - 117 U/L [facility] 12/18/2024 5:01 AM EST 12/18/2024 5:08 AM EST us Generic External Data Provider LAB BLOOD ORDERAB LES Final Result Performing Organization Address City/[facility]/ZIP Co de Phone Number [facility] [address] [place] [address] [phone] * SARS-CoV-2 RNA, Influenza A/B, and RSV RNA, Ql NAAT (12/18/2024 4:54 AM EST) Influenza A PCR NEGATIVE Negative [facility] Influenza B PCR NEGATIVE Negative [facility] Resp Syncy Virus RNA Qual PCR NEGATIVE Negative [facility] SARS COV2 PCR NEGATIVE Negative [facility] Comment:All test results mus t [...] use by authorized laboratories.Testing performed on the [employer] GeneXpert utilizingreal-time RT-PCR.All SARS CoV2 and positive influenza A/B results arereported to [facility]. 12/18/2024 4:54 AM EST 12/18/2024 5:08 AM EST us Generic External Data Provider LAB MICROBIOLOGY - GENERAL ORDERABLES Final Result Performing Organization Address City/[facility]/ZIP Co de Phone Number [facility] [address] [place] [address] [phone] * XR Chest 1 View (12/18/2024 4:39 AM EST) Anatomical Region Laterality Modality Chest Radiographic Angelia ging 12/18/2024 4:39 AM EST Narrative 12/18/2024 4:41 AM EST ? [facility] ?[address] ?[place]omes [address] ?XRay Report ? Signed ? Patient: Rea,Emiliana M ?MR#: [id number] ?? [id number] ? : 1975 ?Acct:[id number] ? Age/Sex: 49 / F ?ADM Date: 12/18/24 ? Loc: HO.ED ? Attending Dr: ? Ordering Physician: Generic ED Physician ?? Date of Service: 12/18/24 ?? Procedure(s): XR chest 1V ?? Accession Number(s): [id number] ? cc: Generic ED Physician; [facility] ? CLINICAL HISTORY: cough ? 1 [...] DD/ 0439 ? TD/TT: 12/18/24 0439 ? Director Of Market Research: ? Procedure Note Vj, Sushant - 12/18/[address] [address] XRay Report Signed Patient: Emiliana Rea [facility]#: [id number] : 1975Acct:[id number] Age/Sex: 49 / FADM Date: 12/18/24 Loc: HO.ED Attending Dr: Ordering Physician: Generic ED Physician Date of Service: 12/18/24 Procedure(s): XR chest 1V Accession Number(s): [id number] cc: Generic ED Physician; [facility] CLINICAL HISTORY: cough 1 view chest [...] in OV> 12/18/24 0441 DD/ TD/TT: 12/18/24438 Director Of Market Research: [facility] External Provider IMG XR PROCEDURES Edited Result - Final from Last 3 Months
--- OUTSIDE RECORDS SUMMARY | 2025-01-01 15:11 | XMS_ITS | Encounter Summary ---
Author Organization [facility], Address [address] [place] [address] Phone Care Team Providers Care Buy Boat Operator Name Role Phone Barbie Krueger MD Primary Care Prov ider Encounter Details Date Type Department Care Team (Late st Contact Info) Description 10/07/2024 Documentation Only [facility], [address] [place] [address] Amberly Mensah [address] [place] [phone] Social History Tobacco Use Types Packs/Day Years [...] on filedocumented in this encounter Care Teams Buy Boat Operator Relationship Specialty Start Date End Date Barbie Krueger MD [address] [place] [address] PCP - General 09/22/19 documented as of this encounter
--- OUTSIDE RECORDS SUMMARY | 2025-01-01 15:11 | XMS_ITS | Encounter Summary ---
Author Organization [facility], Address [address] [place] [address] Phone Care Team Providers Care Residential Mortgage Manager Name Role Phone Barbie Krueger MD Primary Care Prov ider Encounter Details Date Type Department Care Team (Late st Contact Info) Description 10/07/2024 Documentation Only [facility], [address] [place] [address] Amberly Mensah [address] [place] [phone] Social History Tobacco Use Types Packs/Day Years [...] on filedocumented in this encounter Care Teams Residential Mortgage Manager Relationship Specialty Start Date End Date Barbie Krueger MD [address] [place] [address] PCP - General 09/22/19 documented as of this encounter
--- OUTSIDE RECORDS SUMMARY | 2025-01-01 15:11 | XMS_ITS | Encounter Summary ---
Author Organization [facility], Address [address] [place] [address] Phone Care Team Providers Care Crate Builder Name Role Phone Barbie Krueger MD Primary Care Prov ider Encounter Details Date Type Department Care Team (Late st Contact Info) Description 10/07/2024 Documentation Only [facility], [address] [place] [address] Amberly Mensah [address] [place] [phone] Social History Tobacco Use Types Packs/Day Years [...] on filedocumented in this encounter Care Teams Crate Builder Relationship Specialty Start Date End Date Barbie Krueger MD [address] [place] [address] PCP - General 09/22/19 documented as of this encounter
--- OUTSIDE RECORDS SUMMARY | 2025-01-01 15:11 | XMS_ITS | Encounter Summary ---
Author Organization [facility], Address [address] [place] [address] Phone Care Team Providers Care Supervisor Aluminum Boat Assembly Name Role Phone Barbie Kruegre MD Primary Care Prov ider Encounter Details Date Type Department Care Team (Late st Contact Info) Description 10/07/2024 Documentation Only [facility], [address] [place] [address] Amberly Mensah [address] [place] [phone] Social History Tobacco Use Types Packs/Day Years [...] filedocumented in this encounter Care Teams Supervisor Aluminum Boat Assembly Relationship Specialty Start Date End Date Barbie Krueger MD [address] [place] [address] PCP - General 09/22/19 documented as of this encounter
--- OUTSIDE RECORDS SUMMARY | 2025-01-01 15:11 | XMS_ITS | Encounter Summary ---
Author Organization [facility], Address [address] [place] [address] Phone Care Team Providers Care Client Strategist Name Role Phone Barbie Krueger MD Primary Care Prov ider Encounter Details Date Type Department Care Team (Late st Contact Info) Description 10/07/2024 Documentation Only [facility], [address] [place] [address] Amberly Mensah [address] [place] [phone] Social History Tobacco Use Types Packs/Day Years [...] on filedocumented in this encounter Care Teams Client Strategist Relationship Specialty Start Date End Date Barbie Krueger MD [address] [place] [address] PCP - General 09/22/19 documented as of this encounter
--- OUTSIDE RECORDS SUMMARY | 2025-01-01 15:11 | XMS_ITS | Clinical Summary ---
Author Organization [facility], Address [address] [place] [address] [place] [address] Phone Care Team Providers Care Ammonia Box Operator Name Role Phone Barbie Krueger MD [...] Telephone [facility] [address] [place] [address] Omar Mcginnis [place] 10/07/2024 Documentation Only [facility] [address] [place] [address] Makenna, Amberly 10/07/2024 Documentation Only [facility] [address] [place] [address] Makenna, Amberly 10/07/2024 Documentation Only [facility] [address] [place] [address] Makenna, Amberly 10/07/2024 Documentation Only [facility] [address] [place] [address] Makenna, Amberly 10/07/2024 Documentation Only [facility] [address] [place] [address] Makenna, Amberly 10/07/2024 Documentation Only [facility] [address] [place] [address] Makenna, Amberly 10/07/2024 Documentation Only [facility] [address] [place] [address] Makenna, Amberly 10/07/2024 Documentation Only [facility] [address] [place] [address] Makenna, Amberly 10/07/2024 Documentation Only [facility] [address] [place] [address] Makenna, Amberly 10/07/2024 Documentation Only [facility] [address] [place] [address] Makenna, Amberly 10/07/2024 Documentation Only [facility] [address] [place] [address] Makenna, Amberly 10/07/2024 Documentation Only [facility] [address] [place] [address] Makenna, Amberly 10/07/2024 Documentation Only [facility] [address] [place] [address] Makenna, Amberly 10/07/2024 Documentation Only [facility] [address] [place] [address] Makenna, Amberly 10/07/2024 Documentation Only [facility] [address] [place] [address] Makenna, Amberly 10/07/2024 Documentation Only [facility] [address] [place] [address] Makenna, Amberly 10/07/2024 Documentation Only [facility] [address] [place] [place] [address] Makenna, Amberly 10/07/2024 Documentation Only [facility] [address] [place] [place] [address] Makenna, Amberly 10/07/2024 Documentation Only [facility] [address] [place] [address] Amberly Mensah from Last 3 Months [...] 07/30 Influenza Vaccine (#1) 2024 08/31/2015 Insurance [facility] Care Teams Ammonia Box Operator Relationship Specialty Start Date End Date Barbie Krueger MD [address] [place] [address] PCP - General 09/22/19
--- OUTSIDE RECORDS SUMMARY | 2025-01-01 15:11 | XMS_ITS | Encounter Summary ---
Author Organization [facility], Address [address] [place] [address] Phone Care Team Providers Care Family Worker Name Role Phone Barbie Krueger MD Primary Care Prov ider Encounter Details Date Type Department Care Team (Late st Contact Info) Description 10/07/2024 Documentation Only [facility], [address] [place] [address] Amberly Mensah [address] [place] [phone] Social History Tobacco Use Types Packs/Day Years [...] on filedocumented in this encounter Care Teams Family Worker Relationship Specialty Start Date End Date Barbie Krueger MD [address] [place] [address] PCP - General 09/22/19 documented as of this encounter
--- OUTSIDE RECORDS SUMMARY | 2025-01-01 15:11 | XMS_ITS | Encounter Summary ---
Author Organization [facility], Address [address] [place] [address] Phone Care Team Providers Care Purchasing Internship Name Role Phone Barbie Krueger MD Primary Care Prov ider Encounter Details Date Type Department Care Team (Late st Contact Info) Description 10/07/2024 Documentation Only [facility], [address] [place] [address] Amberly Mensah [address] [place] [phone] Social History Tobacco Use Types Packs/Day Years [...] on filedocumented in this encounter Care Teams Purchasing Internship Relationship Specialty Start Date End Date Barbie Krueger MD [address] [place] [address] PCP - General 09/22/19 documented as of this encounter
--- OUTSIDE RECORDS SUMMARY | 2025-01-01 15:11 | XMS_ITS | Encounter Summary ---
Author Organization [facility], Address [address] [place] [address] Phone Care Team Providers Care Pneudraulic Systems Mechanic Name Role Phone Barbie Kreuger MD Primary Care Prov ider Encounter Details Date Type Department Care Team (Late st Contact Info) Description 10/07/2024 Documentation Only [facility], [address] [place] [address] Amberly Mensah [address] [place] [phone] Social History Tobacco Use Types Packs/Day Years [...] on filedocumented in this encounter Care Teams Pneudraulic Systems Mechanic Relationship Specialty Start Date End Date Barbie Krueger MD [address] [place] [address] PCP - General 09/22/19 documented as of this encounter
--- OUTSIDE RECORDS SUMMARY | 2025-01-01 15:11 | XMS_ITS | Encounter Summary ---
Author Organization [facility], Address [address] [place] [address] Phone Care Team Providers Care Thread Pulling Machine Attendant Name Role Phone Barbie Krueger MD Primary Care Prov ider Reason for Visit * Reason Comments Med Refill Encounter Details Date Type Department Care Team (Late st Contact Info) Description 04/01/2024 Refill [facility], [address] [place] [address] Lukas Kam MD [address] [place] [phone] Social History Tobacco Use Types Packs/Day Years [...] on filedocumented in this encounter Care Teams Thread Pulling Machine Attendant Relationship Specialty Start Date End Date Barbie Krueger MD [address] [place] [phone] PCP - General 09/22/19 documented as of this encounter
--- OUTSIDE RECORDS SUMMARY | 2025-01-01 15:11 | XMS_ITS | Encounter Summary ---
Author Organization [facility], Address [address] [place] [address] Phone Care Team Providers Care Grievance And Appeals Coordinator Name Role Phone Barbie Krueger MD Primary Care Prov ider Encounter Details Date Type Department Care Team (Late st Contact Info) Description 10/07/2024 Documentation Only [facility], [address] [place] [address] Amberly Mensah [address] [place] [phone] Social History Tobacco Use Types Packs/Day Years [...] on filedocumented in this encounter Care Teams Grievance And Appeals Coordinator Relationship Specialty Start Date End Date Barbie Krueger MD [address] [place] [address] PCP - General 09/22/19 documented as of this encounter
--- OUTSIDE RECORDS SUMMARY | 2025-01-01 15:11 | XMS_ITS | Encounter Summary ---
Author Organization [facility], Address [address] [place] [address] Phone Care Team Providers Care Maintenance Scheduler Name Role Phone Barbie Krueger MD Primary Care Prov ider Encounter Details Date Type Department Care Team (Late st Contact Info) Description 10/07/2024 Documentation Only [facility], [address] [place] [address] Amberly Mensah [address] [place] [phone] Social History Tobacco Use Types Packs/Day Years [...] on filedocumented in this encounter Care Teams Maintenance Scheduler Relationship Specialty Start Date End Date Barbie Krueger MD [address] [place] [address] PCP - General 09/22/19 documented as of this encounter
--- OUTSIDE RECORDS SUMMARY | 2025-01-01 15:11 | XMS_ITS | Encounter Summary ---
Author Organization [facility], Address [address] [place] [address] Phone Care Team Providers Care Generation Technician Name Role Phone Barbie Krueger MD Primary Care Prov ider Encounter Details Date Type Department Care Team (Late st Contact Info) Description 10/07/2024 Documentation Only [facility], [address] [place] [address] Amberly Mensah [address] [place] [phone] Social History Tobacco Use Types Packs/Day Years [...] on filedocumented in this encounter Care Teams Generation Technician Relationship Specialty Start Date End Date Barbie Krueger MD [address] [place] [address] PCP - General 09/22/19 documented as of this encounter
--- OUTSIDE RECORDS SUMMARY | 2025-01-01 15:11 | XMS_ITS | Encounter Summary ---
Author Organization [facility], Address [address] [place] [address] Phone Care Team Providers Care Layout Worker Name Role Phone Barbie Krueger MD Primary Care Prov ider Encounter Details Date Type Department Care Team (Late st Contact Info) Description 10/07/2024 Documentation Only [facility], [address] [place] [address] Amberly Mensah [address] [place] [phone] Social History Tobacco Use Types Packs/Day Years [...] on filedocumented in this encounter Care Teams Layout Worker Relationship Specialty Start Date End Date Barbie Krueger MD [address] [place] [address] PCP - General 09/22/19 documented as of this encounter
--- OUTSIDE RECORDS SUMMARY | 2025-01-01 15:11 | XMS_ITS | Encounter Summary ---
Author Organization [facility], Address [address] [place] [address] Phone Care Team Providers Care Editor School Photograph Name Role Phone Barbie Krueger MD Primary Care Prov ider Encounter Details Date Type Department Care Team (Late st Contact Info) Description 10/07/2024 Documentation Only [facility], [address] [place] [address] Amberly Mensah [address] [place] [phone] Social History Tobacco Use Types Packs/Day Years [...] on filedocumented in this encounter Care Teams Editor School Photograph Relationship Specialty Start Date End Date Barbie Krueger MD [address] [place] [address] PCP - General 09/22/19 documented as of this encounter
--- OUTSIDE RECORDS SUMMARY | 2025-01-01 15:11 | XMS_ITS | Encounter Summary ---
Author Organization [facility], Address [address] [place] [address] Phone Care Team Providers Care Hotel Concierge Name Role Phone Barbie Krueger MD Primary Care Prov ider Encounter Details Date Type Department Care Team (Late st Contact Info) Description 10/07/2024 Documentation Only [facility], [address] [place] [address] Amberly Mensah [address] [place] [phone] Social History Tobacco Use Types Packs/Day Years [...] on filedocumented in this encounter Care Teams Hotel Concierge Relationship Specialty Start Date End Date Barbie Krueger MD [address] [place] [address] PCP - General 09/22/19 documented as of this encounter
--- OUTSIDE RECORDS SUMMARY | 2025-01-01 15:11 | XMS_ITS | Encounter Summary ---
Author Organization [facility], Address [address] [place] [address] Phone Care Team Providers Care Seal Delivery Vehicle Officer Name Role Phone Barbie Krueger MD Primary Care Prov ider Encounter Details Date Type Department Care Team (Late st Contact Info) Description 10/07/2024 Documentation Only [facility], [address] [place] [address] Amberly Mensah [address] [place] [phone] Social History Tobacco Use Types Packs/Day Years [...] on filedocumented in this encounter Care Teams Seal Delivery Vehicle Officer Relationship Specialty Start Date End Date Barbie Krueger MD [address] [place] [address] PCP - General 09/22/19 documented as of this encounter
--- OUTSIDE RECORDS SUMMARY | 2025-01-01 15:11 | XMS_ITS | Encounter Summary ---
Author Organization [facility], Address [address] [place] [address] Phone Care Team Providers Care Mapping Analyst Name Role Phone Barbie Krueger MD Primary Care Prov ider Encounter Details Date Type Department Care Team (Late st Contact Info) Description 10/07/2024 Documentation Only [facility], [address] [place] [address] Amberly Mensah [address] [place] [phone] Social History Tobacco Use Types Packs/Day Years [...] on filedocumented in this encounter Care Teams Mapping Analyst Relationship Specialty Start Date End Date Barbie Krueger MD [address] [place] [phone] PCP - General 09/22/19 documented as of this encounter
--- OUTSIDE RECORDS SUMMARY | 2025-01-01 15:11 | XMS_ITS | Encounter Summary ---
Author Organization [facility], Address [address] [place] [address] Phone Care Team Providers Care Plastics Nurse Name Role Phone Barbie Krueger MD Primary Care Prov ider Encounter Details Date Type Department Care Team (Late st Contact Info) Description 10/07/2024 Documentation Only [facility], [address] [place] [address] Amberly Mensah [address] [place] [phone] Social History Tobacco Use Types Packs/Day Years [...] on filedocumented in this encounter Care Teams Plastics Nurse Relationship Specialty Start Date End Date Barbie Krueger MD [address] [place] [phone] PCP - General 09/22/19 documented as of this encounter
== END 2025-01-01 15:52 | disposition home or self-care (01) ==
PROVIDERS: PCP Family Medicine; Visit Provider Internal Medicine Nephrology
DX: M32.9 Systemic lupus erythematosus, unspecified (principal)
CPT/HCPCS: 99214

== ENCOUNTER → 2025-01-01 15:09 | Outpatient (BNVA) | payer MEDICAID, SELFPAY | PROVIDERS: PCP Family Medicine; Visit Provider Internal Medicine Nephrology | DX: M32.9 Systemic lupus erythematosus, unspecified (principal) | CPT/HCPCS: 99212 ==

== ENCOUNTER 2025-02-01 02:45 | Inpatient (IN) | payer OTHER, SELFPAY ==
[2025-02-01] VITALS (7 sets, daily range): BP systolic 113–180; BP diastolic 56–98; PULSE 94–110; RESP 16–20; TEMP 36.3–37.3; O2SAT 88–94; BMI 26.7; BMI 27.0
--- NOTE | ~2025-02-01 | XR_ITS ---
CLINICAL HISTORY: swelling pain 2 view right knee Comparison: None Findings: Osteopenia. No acute fracture. Severe loss of joint space in the lateral compartment. Tricompartmental osteophytosis. Large knee effusion. No radiopaque foreign body. Generalize knee swelling, especially at the suprapatellar soft tissues. Genu valgus. IMPRESSION: 1. Severe knee degenerative change. 2. Large knee effusion and generalized soft tissue swelling. Correlate with any signs or symptoms of septic joint. This document has been electronically signed by: Dimitri Casey MD on 02/01/2025 04:49:52
--- NOTE | ~2025-02-01 | US_ITS ---
CLINICAL HISTORY: right lower extremity swelling and tenderness. Venous duplex ultrasound right lower extremity Comparison: US/SR - US VENOUS DUPLEX LE RT - 10/21/24 06:02 EST Findings: The visualized deep veins are fully compressible with normal Doppler color flow and spectral tracings. No popliteal cyst. Subcutaneous edema within the leg. Reactive right groin lymph nodes. IMPRESSION: 1. Negative for right lower extremity deep vein thrombosis. This document has been electronically signed by: Dimitri Casey MD on 02/01/2025 04:50:33
--- NOTE | 2025-02-01 03:23 | ECG_ITS ---
Test Reason : SEPSIS? Blood Pressure : */* mmHG Vent. Rate : 99 BPM Atrial Rate : 99 BPM P-R Int : 140 ms QRS Dur : 102 ms QT Int : 382 ms P-R-T Axes : 40 68 54 degrees QTcB Int : 490 ms Poor data quality Sinus rhythm with Fusion complexes Prolonged QT Abnormal ECG When compared with ECG of 24-Apr-2024 10:54, No significant changes seen Referred By: Linda Jones Electronically Signed By: David Man
--- NOTE | 2025-02-01 03:25 | ED.EXTPRO ---
HPI - Extremity Problem General Chief complaint: Extremity Problem Stated complaint: KNEE SWELLING/PAIN Time Seen by Provider: 02/01/25 03:19 Source: patient and EMS Mode of arrival: EMS Limitations: no limitations History of Present Illness ED Provider: DR. Jones HPI Narrative: 49-year-old female PMH COPD, lupus, CVA, PAD on Eliquis and statin, fibromyalgia, hypothyroidism, chronic bilateral leg edema, right lower extremity cellulitis, history of C diff after using antibiotic for cellulitis. Patient presented today with a right lower extremity swelling, redness, and tenderness. No subjective fever. Related Data Home Medications ?Medication ?Instructions ?Recorded ?Confirmed albuterol sulfate 90 mcg/actuation 2 puff inhalation Q6H PRN 08/31/20 12/25/24 aerosol inhaler Shortness Of Breath Or Wheezing nebulizer and compressor (Vios #1 ea 02/15/22 12/25/24 Aerosol Delivery System) lorazepam 1 mg tablet 1 mg PO DAILY PRN anxiety 04/24/24 12/25/24 acetaminophen 325 mg tablet 650 mg PO Q6H PRN Pain 06/13/24 12/25/24 (Tylenol) lidocaine 5 % topical patch 2 patch topical DAILY PRN pain 10/21/24 12/25/24 sulfasalazine 500 mg tablet 1,000 mg PO DAILY@2000 10/21/24 12/25/24 sulfasalazine 500 mg tablet 500 mg PO DAILY@0800 10/21/24 12/25/24 Previous Rx's ?Medication ?Instructions ?Recorded inhalational spacing device #10 ea 06/04/24 (Aerovent Plus spacer) cholecalciferol (vitamin D3) 50 50 mcg PO DAILY #90 caps 08/19/24 mcg (2,000 unit) capsule ammonium lactate 12 % lotion 1 appl topical BID #225 grams 10/22/24 levothyroxine 175 mcg tablet 175 mcg PO DAILY 30 days #30 tabs 11/25/24 hydroxychloroquine 200 mg tablet 300 mg (1.5 x 200 mg) PO BID #135 11/26/24 tabs fluticasone propionate 230 2 puff inhalation BID copd 30 days 12/15/24 mcg-salmeterol 21 mcg/actuation #12 grams HFA inhaler (Advair HFA) folic acid 1 mg tablet 1 mg PO DAILY #30 tabs 12/15/24 prednisone 2.5 mg tablet 5 mg (2 x 2.5 mg) PO DAILY #60 tabs 12/15/24 amoxicillin 875 mg-potassium 1 tab PO BID #20 tabs 12/18/24 clavulanate 125 mg tablet doxycycline hyclate 100 mg tablet 100 mg PO BID #20 tabs 12/18/24 albuterol sulfate 2.5 mg/3 mL 2.5 mg (3 mL) inhalation Q4-6H PRN 12/23/24 (0.083 %) solution for nebulization shortness of breath or wheezing 30 days #90 mL albuterol sulfate 90 mcg/actuation 2 puff inhalation Q4-6H PRN 12/23/24 aerosol inhaler shortness of breath or wheezing 30 days #8.5 grams tiotropium bromide 2.5 2 puff inhalation QAM copd 30 days 12/23/24 mcg/actuation mist for inhalation #4 grams (Spiriva Respimat) buspirone 10 mg tablet 10 mg PO BID 30 days #60 tabs 12/25/24 [id number]-preyaxrnwbypi-[id number] 2 tab PO DAILY PRN headache #14 12/25/24 50 mg-325 mg-40 mg tablet tabs apixaban 5 mg tablet (Eliquis) 5 mg PO BID 90 days #180 tabs 01/18/25 bupropion HCl 100 mg tablet,12 hr 100 mg PO BID 90 days #180 tabs 01/18/25 sustained-release famotidine 20 mg tablet 20 mg PO DAILY 90 days #90 tabs 01/18/25 ferrous sulfate 325 mg (65 mg 325 mg PO DAILY 90 days #90 tabs 01/18/25 iron) tablet (FeroSul) fluoxetine 20 mg capsule 40 mg (2 x 20 mg) PO DAILY 90 days 01/18/25 #180 caps loratadine 10 mg tablet 10 mg PO DAILY allergies 90 days 01/18/25 #90 tabs multivitamin (One Daily 1 tab PO DAILY 90 days #90 tabs 01/18/25 Multivitamin tablet) nortriptyline 75 mg capsule 75 mg PO BEDTIME 90 days #90 caps 01/18/25 pravastatin 40 mg tablet 40 mg PO BEDTIME 90 days #90 tabs 01/18/25 Allergies Allergy/AdvReac Type Severity Reaction Status Date / Time clarithromycin Allergy Intermediate FACIAL Verified 02/01/25 03:00 [CLARITHROMYCIN] SWELLING/REDNESS, facial rash, facial rash, facial rash, facial rash Review of Systems Review of Systems: all other systems are reviewed and are negative Constitutional: Reports as per HPI and Reports no additional constitutional complaints Eyes: Reports as per HPI and Reports no additional eye complaints Reports system reviewed and no additional complaints, except as documented Cardiovascular: Reports as per HPI and Reports no additional cardiovascular complaints Respiratory: Reports as per HPI and Reports no additional respiratory complaints Gastrointestinal: Reports as per HPI and Reports no additional gastrointestinal complaints Genitourinary: Reports no additional female genitourinary complaints Musculoskeletal: Reports no additional musculoskeletal complaints Skin/Breast: Reports system reviewed and no additional complaints, except as docu Psychiatric: Reports no additional psychiatric complaints Endocrine: Reports no additional endocrine complaints Hematologic/Lymphatic: Reports no additional hematologic/lymphatic complaints Allergic/Immunologic: Reports no additional allergic/immunologic complaints Reports system reviewed and no additional complaints, except as documented and Reports Abnormal speech present [facility] Past Medical History Medical History Lupus Sepsis Depression Anxiety Kidney disease Headache Swelling Arthritis Hx of blood clots Sinusitis Asthma Stasis dermatitis Bilateral lower leg cellulitis Cellulitis COPD (chronic obstructive pulmonary disease) Lung density on x-ray Smoker COPD (chronic obstructive pulmonary disease) with acute bronchitis Bilateral pneumonia Tobacco abuse C. difficile colitis Community acquired pneumonia Bilateral pneumonia Open wound of right elbow Respiratory failure with hypoxia Pneumonia due to COVID-19 virus Acute respiratory distress syndrome (ARDS) due to COVID-19 virus Acute exacerbation of chronic obstructive airways disease Acute hypoxemic respiratory failure due to COVID-19 Ulcer of lower extremity Sepsis with acute hypoxic respiratory failure without septic shock Encounter for testing for latent tuberculosis infection Falling Charcot's joint of foot Cellulitis Redness and swelling of lower leg C. difficile colitis Secondary bacterial pneumonia Immunosuppression due to chronic steroid use Mixed connective tissue disease Cellulitis of right leg PAD (peripheral artery disease) Varicose veins of right lower extremity with inflammation Rheumatoid arthritis Cellulitis CVA (cerebral vascular accident) Proteinuria Fibromyalgia Hypothyroid Surgical History Status post incision and drainage History of breast lump/mass excision History of excision of mass History of partial hysterectomy History of cholecystectomy History of bunionectomy Family History Family History Father No problems noted. Mother Lung cancer Rheumatoid arthritis Social History Social History Household Members: Family Household Members Other:: My twin sons Housing: House Housing Other:: second floor Do you presently have visiting nurse or other home services: No Alcohol intake: former Comment: pt asleep Patient Tobacco Use Status: Current everyday Tobacco user Tobacco use type: Cigarette Cigarette Packs Per Day: 1 Cigarettes Per Day: 20.0 Years Smoked: 30 Smoked in Last 30 Days: Yes e-Cigarette/Vaping Use: Never Used Second Hand Smoke Exposure: No Use of substances other than those prescribed or required for medical reasons: No Substance Use Type: Marijuana Advance Directives: Yes Advance Directives on File: Yes Advance Directives Date on File: 11/26/21 Do you have a plan to hurt others: No Plan Patient : No service: No Current occupational status: unemployed and disabled Current occupation: right hand dominant Cognitive needs: No Hearing needs: No Vision needs: Yes Physical Exam Vital Signs: Vital Signs: Last Vital Signs Temp 99.2 F 02/01/25 05:58 Pulse 104 H 02/01/25 05:58 Resp 16 02/01/25 05:58 BP 162/80 H 02/01/25 05:58 Pulse Ox 92 02/01/25 05:58 O2 Del Method Room Air 02/01/25 05:58 BMI result Body Mass Index 26.7 Vital signs have been reviewed and appear to be correct. Blood pressure elevated. Heart rate normal. Respiratory rate normal. Temperature normal. Oxygen saturation normal. Appearance: Alert. Oriented X3. No acute distress. Head: Normal external exam. Normocephalic. Atraumatic. No Raza signs noted. No raccoon eyes noted Eyes: PERRLA. EOMI. Conjunctiva and sclera normal. Eyelids normal. ENT: TM's Normal. Pharynx normal. Uvula midline. Moist mucous membranes. No trismus noted. No drooling noted. No muffled voice noted. Neck: Normal inspection. Neck supple. FROM. No adenopathy. Thyroid Normal. No meningeal signs. No neck mass noted. CVS: Normal heart rate and rhythm. Heart sound normal. No murmurs noted. Pulses normal throughout. Respiratory: No respiratory distress. Painless inspiration. Breath sounds normal. No wheezes/rales/rhonchi noted. Chest nontender. No accessory muscle usage noted or decreased air movement noted. Abdomen: Soft and nontender. Bowel sounds normal in all 4 quadrants. No distention noted. No organomegaly noted. No visible injury noted. Back: No CVA tenderness. Full range of motion noted. Skin: Skin warm and dry. Normal skin color. Normal skin turgor. No rashes/lesions/lacerations noted. Extremities: right lower extremity exam: Right leg 10 cm below the knee to the ankle about 7 x 5 area of redness, hotness, swelling, tenderness to the calf area. Neuro: Oriented X 3. Cranial nerve exam: II-XII are grossly intact No motor deficit. No sensory deficit. Reflexes normal. Course Reevaluation(s) Reevaluation #1: right lower extremity cellulitis with sepsis. Received IV fluids, vancomycin, and Zosyn. Right knee large effusion, x-ray raising suspicion for septic joint, despite right knee exam showing no hotness, or redness, right knee spare the right leg cellulitis,limited range of motion secondary to pain using a complete aseptic technique for arthrocentesis arthrocentesis to rule out septic joint. The knee effusion aspirate has 17,000 WBCs is likely inflammatory, patient received antibiotic for lower leg cellulitis, await for culture and Gram stain. Time: 06:37 Medications Administered Generic Name Dose Route Start Last Admin Trade Name Freq PRN Reason Stop Dose Admin Vancomycin HCl 1,000 mg/ 270 mls @ 270 mls/hr 02/01/25 05:43 02/01/25 05:54 Sodium Chloride IV 02/01/25 06:42 270 mls/hr ONCE ONE Administration Discontinued Medications Generic Name Dose Route Start Last Admin Trade Name Freq PRN Reason Stop Dose Admin Hydromorphone HCl 2 mg 02/01/25 05:35 02/01/25 05:40 Hydromorphone Hcl 2 Mg/Ml Vial IVPUSH 02/01/25 05:36 2 mg ONCE ONE Administration Protocol Sodium Chloride 1,000 mls @ 999 mls/hr 02/01/25 03:23 02/01/25 05:12 Ns IV 02/01/25 04:23 Infused .Q1H1M ONE Infusion Piperacillin Sod/Tazobactam 50 mls @ 100 mls/hr 02/01/25 05:10 02/01/25 05:46 Sod 3.375 gm/ Sodium Chloride IV 02/01/25 05:39 Infused ONCE ONE Infusion Lidocaine HCl 5 ml 02/01/25 05:17 02/01/25 05:25 Lidocaine Hcl 1 % Mpf 5 Ml Vial SUBCUT 02/01/25 05:18 5 ml ONCE ONE Administration Morphine Sulfate 2 mg 02/01/25 05:17 02/01/25 05:23 Morphine Sulfate 2 Mg/Ml Cartridge IVPUSH 02/01/25 05:18 2 mg ONCE ONE Administration Protocol Medical Decision Making Differential Diagnosis Differential Diagnoses: The differential diagnosis associated with the presentation includes ( right lower extremity cellulitis, right knee effusion, right knee septic arthritis, electrolyte derangement, severe anemia.) Admission/Observation Consideration of admission/observation: Escalation of care including admission/observation considered Consult Healthcare Provider Management of the patient was discussed with: Hospitalist ( Dr. Adames) Lab Data MDM Lab Attestation statement: I reviewed the patient's lab results. 02/01/25 03:40 02/01/25 03:40 Labs: Lab Results 02/01/25 02/01/25 Range/Units 03:40 06:01 WBC 13.0 H (4.8-10.8) X10*3/uL RBC 5.15 (4.20-5.50) X10*6/uL Hgb 12.1 (12.0-16.0) g/dl Hct 40.6 (37.0-47.0) % MCV 78.8 L (80.0-98.0) fL MCH 23.5 L (27.0-33.0) pg MCHC 29.8 L (31.0-35.0) g/dl RDW 16.1 H (11.0-16.0) % Plt Count 212 (160-400) X10*3/uL MPV 8.4 L (9.4-12.3) fL Immature Gran % (Auto) 0.5 H (0.0-0.4) % Neut % (Auto) 70.4 (45-73) % Lymph % (Auto) 15.0 L (20-40) % [place] % (Auto) 8.7 (2-11) % Eos % (Auto) 4.9 H (0-4) % Baso % (Auto) 0.5 (0-2) % Lymph # (Auto) 1.9 (1.2-4.9) X10*3/uL [place] # (Auto) 1.1 (0.1-1.2) X10*3/uL Eos # (Auto) 0.6 H (0.0-0.4) X10*3/uL Baso # (Auto) 0.1 (0.0-0.2) X10*3/uL Abs Immat Gran (auto) 0.07 H (0.00-0.03) X10*3/uL Absolute Neuts (auto) 9.1 H (2.0-8.3) x10*3/uL Absolute Nucleated RBC 0.000 (0.0-0.012) X10*3/uL Nucleated RBC % (auto) 0.0 (0.0-0.2) /100WBC Sodium 142 (135-145) mmol/L Potassium 4.2 (3.3-5.1) mmol/L Chloride 105 (96-108) mmol/L Carbon Dioxide 27 (22-29) mmol/L Anion Gap 14 (12-20) BUN 15 (9-16) mg/dL Creatinine 0.72 (0.5-1.4) mg/dL Estim Creat Clear Calc 82.9 Estimated GFR > 60 Random Glucose 105 (60-115) mg/dL Lactic Acid 1.2 (0.5-2.0) mmol/L Calcium 9.1 (8.4-10.2) mg/dL Total Bilirubin 0.2 (0.0-1.0) mg/dL Direct Bilirubin < 0.2 (0.0-0.5) mg/dL AST 26 (5-31) U/L ALT 17 (0-31) U/L Alkaline Phosphatase 147 H (39-117) U/L Troponin I High Sens 7.8 (<3.5-17.0) ng/L Total Protein 6.6 (6.5-8.0) g/dL Albumin 3.5 (3.5-5.0) g/dL Lipase 24 (8-78) U/L Synovial Source right knee Synovial WBC 1.756 X10*3/uL Synovial RBC 0.202 X10*6/uL Independent Interpretation I performed an independent interpretation of an: Plain X-Ray ( right knee:1. Severe knee degenerative change. 2. Large knee effusion and generalized soft tissue swelling. Correlate with any signs or symptoms of septic joint.) and Ultrasound ( Right lower extremity:The visualized deep veins are fully compressible with normal Doppler color flow and spectral tracings. No popliteal cyst.) Radiology Impression Discussion of test interpretation with radiology: I have reviewed the radiologist's reading. Procedures Joint Aspiration/Injection Joint Asp./Inject. 1: Time Out Performed: Yes Side of body: right Joint Aspirated: knee ( Under complete aseptic technique, there was no cellulitic change on the skin above the right knee.) Ultrasound Guidance: No Skin Prep: Povidone-Iodine1% Local Anesthetic: lidocaine 1% Amount of anesthesia used (mL): 5 Needle Size Used: 20G Fluid Obtained: bloody Total fluid obtained (mL): 20 Patient Tolerated Procedure: well Complications: none Discharge Plan Discharge Clinical Impression: Cellulitis of leg, right, Effusion of knee joint right Patient Disposition: Admitted As Inpatient Print Language: Upper Sorbian
[2025-02-01 03:44] LABS: Basophils Absolute Auto 0.1 X10*3/uL (0.0-0.2); Basophils Percent Auto 0.5 % (0-2); Eosinophils Absolute Auto 0.6 X10*3/uL (0.0-0.4); Eosinophils Percent Auto 4.9 % (0-4); Hematocrit 40.6 % (37.0-47.0); Hemoglobin 12.1 g/dl (12.0-16.0); Imm Gran Abs Auto 0.07 X10*3/uL (0.00-0.03); Imm Gran Pct Auto 0.5 % (0.0-0.4); Lymphocytes Absolute Auto 1.9 X10*3/uL (1.2-4.9); MANUAL DIFF FLAG NO; Mean Corpuscular HGB Conc 29.8 g/dl (31.0-35.0); Mean Corpuscular Hemoglobin 23.5 pg (27.0-33.0); Mean Corpuscular Volume 78.8 fL (80.0-98.0); Mean Platelet Volume 8.4 fL (9.4-12.3); Monocytes Absolute Auto 1.1 X10*3/uL (0.1-1.2); Monocytes Percent Auto 8.7 % (2-11); Neutrophils Absolute Auto 9.1 x10*3/uL (2.0-8.3); Neutrophils Percent Auto 70.4 % (45-73); Platelet Count 212 X10*3/uL (160-400); Red Blood Count 5.15 X10*6/uL (4.20-5.50); Red Cell Distribution Width 16.1 % (11.0-16.0)
[2025-02-01] MEDS: 0.9 % Sodium Chloride 1,000 ML 999 ML IV (03:50)
[2025-02-01 04:01] LABS: Alanine Aminotransferase 17 U/L (0-31); Albumin Level 3.5 g/dL (3.5-5.0); Alkaline Phosphatase 147 U/L (39-117); Anion Gap 14 (12-20); Aspartate Amino Transferase 26 U/L (5-31); Bilirubin Direct < 0.2 mg/dL (0.0-0.5); Bilirubin Total 0.2 mg/dL (0.0-1.0); Blood Urea Nitrogen 15 mg/dL (9-16); Calcium 9.1 mg/dL (8.4-10.2); Carbon Dioxide 27 mmol/L (22-29); Chloride 105 mmol/L (96-108); Creatinine Clr Calc Pharmacy 82.9; Estimated Glomerular Filt Rate > 60; Glucose Random 105 mg/dL (60-115); Lipase 24 U/L (8-78); Potassium 4.2 mmol/L (3.3-5.1); Sodium 142 mmol/L (135-145); Total Protein 6.6 g/dL (6.5-8.0)
[2025-02-01 04:02] LABS: Lactic Acid 1.2 mmol/L (0.5-2.0)
[2025-02-01 04:09] LABS: Troponin-I High Sensitivity 7.8 ng/L (<3.5-17.0)
[2025-02-01] MEDS: Piperacillin Sodium/Tazobactam 3.375 GM in 0.9 % Sodium Chloride 50 ML IV ×4 (05:15→22:30)
[2025-02-01] MEDS: Morphine Sulfate 2 MG/ML CARTRIDGE IVPUSH (05:23)
[2025-02-01] MEDS: Lidocaine HCl 1 % MPF 5 ML VIAL SUBCUT (05:25)
--- NOTE | 2025-02-01 05:35 | PC.NURSE ---
MD arechiga draining patient knee of fluid currently. pt unable to tolerate. verbal ordering dilaudid 2mg iv
[2025-02-01] MEDS: HYDROmorphone HCl 2 MG/ML VIAL IVPUSH (05:40)
--- NOTE | 2025-02-01 05:41 | PC.NURSE ---
verbal order for dilaudid verified with second RN Kelly administered with MD at bedside during procedure of fluid drainage
[2025-02-01] MEDS: vancomycin HCL 1,000 MG in 0.9 % Sodium Chloride 250 ML 270 MG IV (05:54)
[2025-02-01 06:07] LABS: Source Synovial Fluid right knee
[2025-02-01 06:17] LABS: MN% 38.9 %; PMN% 61.1 %; RBC Synovial Fluid 0.202 X10*6/uL; WBC Synovial Fluid 1.756 X10*3/uL
--- NOTE | 2025-02-01 06:41 | P.HPHOSP_ITS ---
History of Present Illness Date of Service: 02/01/25 Attending physician on admission: [facility] Chief Complaint: RLE pain/swelling Patient is a 49-year-old female with a past medical history significant for COPD/asthma overlap, PAD on Eliquis and statin, mood disorder, lupus, iron- deficiency anemia, GERD, hypothyroid, chronic bilateral leg edema, and right lower extremity cellulitis complicated by C diff, who presented to the ED due to worsening right lower extremity swelling, erythema and tenderness for the past 2 months. She reports it is significantly tender rating the pain a 10/10. She is wheelchair-bound and is unable to tolerate any weight-bearing with that leg. No drainage from the area. No recent injury. She denies any additional symptoms including nausea, vomiting, fever, chills, shortness of breath, chest pain, abdominal pain or upper respiratory symptoms. Review of Systems 2 Constitutional: Constitutional: Denies chills, Denies fatigue, Denies fever(s) and Denies headache(s) Eyes: Eyes: Denies change in vision and Denies photophobia ENT: Denies headache(s), Denies nasal congestion, Denies nasal discharge and Denies sore throat Cardiovascular: Cardiovascular: Denies chest pain, Denies rapid heart rate, Reports leg edema, Denies lightheadedness and Denies dyspnea Respiratory: Respiratory: Denies chest congestion, Denies cough, Denies dyspnea and Denies wheezing Gastrointestinal: Gastrointestinal: Denies diarrhea, Denies nausea and Denies vomiting Genitourinary: Genitourinary: Denies hematuria, Denies dysuria and Denies urinary urgency Musculoskeletal: Musculoskeletal: Reports as per HPI Integumentary/Breasts: Skin/Breast: Reports as per HPI Neurologic: Denies confusion and Denies headache(s) Psychiatric: Psychiatric: Denies confusion Endocrine: Endocrine: Denies fatigue Hematologic/Lymphatic: Hematologic/Lymphatic: Denies easy bleeding and Denies easy bruising Allergic/Immunologic: Allergic/Immunologic: Denies wheezing [facility] Medical History Lupus Sepsis Depression Anxiety Kidney disease Headache Swelling Arthritis Hx of blood clots Sinusitis Asthma Stasis dermatitis Bilateral lower leg cellulitis Cellulitis COPD (chronic obstructive pulmonary disease) Lung density on x-ray Smoker COPD (chronic obstructive pulmonary disease) with acute bronchitis Bilateral pneumonia Tobacco abuse C. difficile colitis Community acquired pneumonia Bilateral pneumonia Open wound of right elbow Respiratory failure with hypoxia Pneumonia due to COVID-19 virus Acute respiratory distress syndrome (ARDS) due to COVID-19 virus Acute exacerbation of chronic obstructive airways disease Acute hypoxemic respiratory failure due to COVID-19 Ulcer of lower extremity Sepsis with acute hypoxic respiratory failure without septic shock Encounter for testing for latent tuberculosis infection Falling Charcot's joint of foot Cellulitis Redness and swelling of lower leg C. difficile colitis Secondary bacterial pneumonia Immunosuppression due to chronic steroid use Mixed connective tissue disease Cellulitis of right leg PAD (peripheral artery disease) Varicose veins of right lower extremity with inflammation Rheumatoid arthritis Cellulitis CVA (cerebral vascular accident) Proteinuria Fibromyalgia Hypothyroid Family History Father No problems noted. Mother Lung cancer Rheumatoid arthritis Surgical History Status post incision and drainage History of breast lump/mass excision History of excision of mass History of partial hysterectomy History of cholecystectomy History of bunionectomy Social History Household Members: Family Household Members Other:: My twin sons Housing: House Housing Other:: second floor Do you presently have visiting nurse or other home services: No Alcohol intake: former Comment: pt asleep Patient Tobacco Use Status: Current everyday Tobacco user Tobacco use type: Cigarette Cigarette Packs Per Day: 1 Cigarettes Per Day: 20.0 Years Smoked: 30 Smoked in Last 30 Days: Yes e-Cigarette/Vaping Use: Never Used Second Hand Smoke Exposure: No Use of substances other than those prescribed or required for medical reasons: No Substance Use Type: Marijuana Advance Directives: Yes Advance Directives on File: Yes Advance Directives Date on File: 11/26/21 Do you have a plan to hurt others: No Plan Patient : No service: No Current occupational status: unemployed and disabled Current occupation: right hand dominant Cognitive needs: No Hearing needs: No Vision needs: Yes Narrative: Smokes 1 pack per day, occasional marijuana use, no alcohol Meds Allergies Allergy/AdvReac Type Severity Reaction Status Date / Time clarithromycin Allergy Intermediate FACIAL Verified 02/01/25 03:00 [CLARITHROMYCIN] SWELLING/REDNESS, facial rash, facial rash, facial rash, facial rash Active Medications: Current Medications Vancomycin HCl 1,000 mg/ (Sodium Chloride) 270 mls @ 270 mls/hr IV ONCE ONE Stop: 02/01/25 06:42 Last Admin: 02/01/25 05:54 Dose: 270 mls/hr Home Medications ?Medication ?Instructions ?Recorded ?Confirmed ?Last Taken ?Type albuterol sulfate 90 mcg/actuation 2 puff inhalation Q6H PRN 08/31/20 12/25/24 04/24/24 06:00 History aerosol inhaler Shortness Of Breath Or Wheezing nebulizer and compressor (Vios #1 ea 02/15/22 12/25/24 Unknown History Aerosol Delivery System) lorazepam 1 mg tablet 1 mg PO DAILY PRN anxiety 04/24/24 12/25/24 05/22/24 08:00 History acetaminophen 325 mg tablet 650 mg PO Q6H PRN Pain 06/13/24 12/25/24 Unknown History (Tylenol) lidocaine 5 % topical patch 2 patch topical DAILY PRN pain 10/21/24 12/25/24 Unknown History sulfasalazine 500 mg tablet 1,000 mg PO DAILY@199910/21/24 12/25/24 10/20/24 History sulfasalazine 500 mg tablet 500 mg PO DAILY@0800 10/21/24 12/25/24 10/20/24 History Physical Exam 2 Vital Signs and Narrative: Vital Signs: Last Vital Signs Temp 99.2 F 02/01/25 05:58 Pulse 104 H 02/01/25 05:58 Resp 16 02/01/25 05:58 BP 162/80 H 02/01/25 05:58 Pulse Ox 92 02/01/25 05:58 O2 Del Method Room Air 02/01/25 05:58 BMI result Body Mass Index 26.7 General: AOx3, no acute distress Resp: CTA bilaterally CVS: S1, S2, RRR GI: +BS, NT, no distention Skin: Warm, dry. germaine bandage on RLE. mild erythema Neuro: Cranial nerves II-XII grossly intact bilaterally. Motor grossly intact bilaterally Extremities: non-pitting edema RLE. germaine bandage in place since synovial fluid tap. mild erythma, and warmth compared to LLE Psych: Appropriate affect Const: General: No confusion Orientation/consciousness: No confusion Eyes: Direct Ophthalmoscopy: No photophobia Neuro: General: No confusion Results Labs 02/01/25 03:40 02/01/25 03:40 Labs: Laboratory Results - last 24 hr 02/01/25 02/01/25 03:40 06:01 MCV 78.8 L MCH 23.5 L MCHC 29.8 L RDW 16.1 H Plt Count 212 MPV 8.4 L Immature Gran % (Auto) 0.5 H Neut % (Auto) 70.4 Lymph % (Auto) 15.0 L Rankin % (Auto) 8.7 Eos % (Auto) 4.9 H Baso % (Auto) 0.5 Lymph # (Auto) 1.9 Rankin # (Auto) 1.1 Eos # (Auto) 0.6 H Baso # (Auto) 0.1 Abs Immat Gran (auto) 0.07 H Absolute Neuts (auto) 9.1 H Absolute Nucleated RBC 0.000 Nucleated RBC % (auto) 0.0 Anion Gap 14 Estim Creat Clear Calc 82.9 Estimated GFR > 60 Random Glucose 105 Lactic Acid 1.2 Calcium 9.1 Total Bilirubin 0.2 Direct Bilirubin < 0.2 AST 26 ALT 17 Alkaline Phosphatase 147 H Total Protein 6.6 Albumin 3.5 Lipase 24 Synovial Source right knee Synovial WBC 1.756 Synovial RBC 0.202 Assessment and Plan (1) Arthritis of right knee: Status: Acute Plan Patient is a 49-year-old female with a past medical history significant for COPD/asthma overlap, PAD on Eliquis and statin, mood disorder, lupus, iron- deficiency anemia, GERD, hypothyroid, chronic bilateral leg edema, and right lower extremity cellulitis complicated by C diff, who presented to the ED due to worsening right lower extremity swelling, erythema and tenderness for the past 2 months. R knee arthritis, inflammatory vs infectious - WBC 13.0 (likely from chronic steroids), tachycardic (likely due to pain), lactic acid normal, blood cultures x2 pending, no sepsis - RLE venous duplex negative for DVT - R knee xray with severe knee degenerative change, large knee effusion and generalized soft tissue swelling. Correlate with any signs or symptoms of septic joint - synovial fluid negative for septic arthritis - patient is started on Zosyn adn vancomycin in ED, continue both pending ortho eval - given 1L NS in ED, no further fluids needed at this time. no sepsis. - ortho consult - follow CBC and BMP COPD/asthma overlap, moderate persistent - no acute exacerbation - continue home meds PAD - continue Eliquis and statin Mood disorder - continue home meds Lupus - continue home meds Iron-deficiency anemia - H&H normal - follow CBC GERD - continue home meds Hypothyroid - continue home meds, dose unclear, wait for med rec Med reconciliation not complete upon admission full code VTE prophy: praful Pt with septic arthritis requiring admission for at least 2 midnights stay for IV abx and ortho consultation. Quality Stroke Does the patient have a stroke diagnosis?: No VTE Prior VTE?: No VTE Risk Level:: Medical - moderate - high VTE Device Contraindication: Treatment Not Indicated VTE Drug Contraindication: N/A - Med Ordered
[2025-02-01 06:48] LABS: BF Shift QC OK YES; Eosinophils Synovial Fluid 1 %; Lymphocytes Synovial Fluid 22 %; Monocytes Synovial Fluid 9 %; Neutrophils Synovial Fluid 68 %
--- NOTE | 2025-02-01 08:55 | PHA.MEDREC ---
Pharmacy Consult ? Medication Reconciliation Pharmacy has completed the medication reconciliation. Spoke to patient to confirm medication list. Patient confirmed she is not taking any antibiotics right now. She confirmed she is still taking hydroxychloroquine (even though last pharmacy claim was in august for 90 day supply). For sulfasalazine, she take 1000 mg in the morning @0800 and 500 mg in the evening @2000. She takes alendronate once a week on saturday. She confirmed the dose of levothyroxine is 175 mcg and fluoxetine is 40 mg DAILY. Last dose of medications was yesterday 01/31/25.
--- NOTE | 2025-02-01 09:08 | PM.EVENT ---
Event Note Date of Service: 02/01/25 Event Note: 49-year-old female with a past medical history significant for COPD/asthma overlap, PAD on Eliquis and statin, mood disorder, lupus, iron-deficiency anemia, GERD, hypothyroid, chronic bilateral leg edema, and right lower extremity cellulitis complicated by C diff, who presented to the ED due to worsening right lower extremity swelling, erythema and tenderness for the past 2 months. R knee arthritis, inflammatory vs infectious WBC 13.0 (likely from chronic steroids), tachycardic (likely due to pain), lactic acid normal, blood cultures x2 pending, no sepsis RLE venous duplex negative for DVT R knee xray with severe knee degenerative change, large knee effusion and generalized soft tissue swelling. synovial fluid negative for septic arthritis s/p Zosyn, vancomycin ortho consult pending normal uric acid Ice and pain control COPD/asthma overlap, moderate persistent no acute exacerbation continue home meds PAD continue Eliquis and statin Mood disorder continue home meds Lupus continue home meds Iron-deficiency anemia H&H normal follow CBC GERD continue home meds Hypothyroid continue home meds full code VTE prophy: eliquis Pt with septic arthritis requiring admission for at least 2 midnights stay for IV abx and ortho consultation. Time Spent With Patient Time: Total time managing care of this patient today ____ minutes.
[2025-02-01 09:37] LABS: Uric Acid 4.7 mg/dL (2.4-5.7)
[2025-02-01] MEDS: Apixaban 5 MG TABLET PO ×2 (09:40→19:14)
[2025-02-01] MEDS: Famotidine 20 MG TABLET PO (09:40)
[2025-02-01] MEDS: Folic Acid 1 MG TABLET PO (09:40)
[2025-02-01] MEDS: buPROPion HCl XL 300 MG TAB.ER.24H PO (09:40)
[2025-02-01] MEDS: busPIRone HCl 10 MG TABLET PO ×2 (09:40→19:14)
[2025-02-01] MEDS: HYDROmorphone HCl 0.5 MG/0.5 ML SYRINGE IVPUSH ×2 (09:41→19:17)
[2025-02-01] MEDS: Loratadine 10 MG TABLET PO (09:41)
[2025-02-01] MEDS: Hydroxychloroquine Sulfate 200 MG TABLET 300 MG PO ×2 (09:41→19:15)
[2025-02-01] MEDS: Ferrous Sulfate 324 MG TABLET.DR PO (09:41)
[2025-02-01] MEDS: Levothyroxine Sodium 175 MCG TABLET PO (09:41)
[2025-02-01] MEDS: Multivitamin TABLET 1 TAB PO (09:41)
[2025-02-01] MEDS: FLUoxetine HCl 20 MG CAPSULE 40 MG PO (09:41)
[2025-02-01] MEDS: Ketorolac Tromethamine 30 MG/ML VIAL IVPUSH (09:41)
[2025-02-01] MEDS: Cholecalciferol (Vitamin D3) 25 MCG TABLET 50 MCG PO (09:41)
[2025-02-01] MEDS: Lidocaine 4 % Patch ADH..PATCH 1 PATCH TRANSDERMA (09:42)
[2025-02-01] MEDS: Nicotine 21 MG PATCH.TD24 TRANSDERMA (09:42)
[2025-02-01] MEDS: Tiotropium Bromide 2.5 mcg 1 PUFF/2.5 MCG MIST.INHAL 2 PUFF INHALE (11:22)
[2025-02-01] MEDS: Fluticasone/Vilanterol 200/25 BLST.W.DEV 1 PUFF INHALE (11:22)
--- NOTE | 2025-02-01 13:07 | PM.CNOR ---
History of Present Illness HPI Consult date: 02/01/25 Chief complaint: inflammatory vs septic arthritis Narrative: 49-year-old female admitted to the medical service due to right lower extremity pain and swelling. Patient had an aspiration in the emergency department which was mostly blood-filled. Patient is on Eliquis.She is wheelchair bound. Fluid analysis from the ED less suspicious for infection. She denies injury. Review of Systems Review of Systems: Yes all other systems are reviewed and are negative PMFSH Past Medical History Medical History Lupus Sepsis Depression Anxiety Kidney disease Headache Swelling Arthritis Hx of blood clots Sinusitis Asthma Stasis dermatitis Bilateral lower leg cellulitis Cellulitis COPD (chronic obstructive pulmonary disease) Lung density on x-ray Smoker COPD (chronic obstructive pulmonary disease) with acute bronchitis Bilateral pneumonia Tobacco abuse C. difficile colitis Community acquired pneumonia Bilateral pneumonia Open wound of right elbow Respiratory failure with hypoxia Pneumonia due to COVID-19 virus Acute respiratory distress syndrome (ARDS) due to COVID-19 virus Acute exacerbation of chronic obstructive airways disease Acute hypoxemic respiratory failure due to COVID-19 Ulcer of lower extremity Sepsis with acute hypoxic respiratory failure without septic shock Encounter for testing for latent tuberculosis infection Falling Charcot's joint of foot Cellulitis Redness and swelling of lower leg C. difficile colitis Secondary bacterial pneumonia Immunosuppression due to chronic steroid use Mixed connective tissue disease Cellulitis of right leg PAD (peripheral artery disease) Varicose veins of right lower extremity with inflammation Rheumatoid arthritis Cellulitis CVA (cerebral vascular accident) Proteinuria Fibromyalgia Hypothyroid Family History Family History Father No problems noted. Mother Lung cancer Rheumatoid arthritis Surgical History Surgical History Status post incision and drainage History of breast lump/mass excision History of excision of mass History of partial hysterectomy History of cholecystectomy History of bunionectomy Social History Social History Household Members: Children Household Members Other:: My twin sons Housing: Apartment Housing Other:: second floor Do you presently have visiting nurse or other home services: Yes Alcohol intake: former Comment: pt asleep Patient Tobacco Use Status: Current everyday Tobacco user Tobacco use type: Cigarette Cigarette Packs Per Day: 1 Cigarettes Per Day: 20.0 Years Smoked: 30 Smoked in Last 30 Days: Yes e-Cigarette/Vaping Use: Never Used Patient Interested in Nicotine Replacement: Yes Second Hand Smoke Exposure: No Use of substances other than those prescribed or required for medical reasons: Yes Substance Use Type: Marijuana Substance Use Frequency: Occasionally Have you been hit, kicked, punched, or otherwise hurt by someone within the past year? If so, by whom?: No Do you feel safe in your current relationship?: No Current Relationship Is there a partner from a previous relationship who is making you feel unsafe now?: No Are you made to feel afraid or neglected: No Advance Directives: Yes Advance Directives on File: Yes Advance Directives Date on File: 11/26/21 Do you have a plan to hurt others: No Plan Recently lost weight without trying: No Nutrition Risks: No Nutritional Risk Patient : No : No Poor oral hygiene: No service: No Current occupational status: unemployed and disabled Current occupation: right hand dominant Cognitive needs: No Hearing needs: No Vision needs: Yes Meds Allergies Allergy/AdvReac Type Severity Reaction Status Date / Time clarithromycin Allergy Intermediate FACIAL Verified 02/01/25 03:00 [CLARITHROMYCIN] SWELLING/REDNESS, facial rash, facial rash, facial rash, facial rash Active Medications: Current Medications Acetaminophen (Acetaminophen 325 Mg Tablet) 975 mg PO Q6H PRN PRN Reason: Pain, Mild 1-3,fever,headache Acetaminophen/Butalbital/Caffeine (Butalb/Acetamin/Caff 50/325/40 Tablet) 2 tab PO DAILY PRN PRN Reason: headache Albuterol Sulfate (Albuterol Sulfate (0.083%) 2.5 Mg/3 Ml Vial.Neb) 2.5 mg INHALE Q4H PRN PRN Reason: shortness of breath or wheezing Albuterol Sulfate (Albuterol Sulfate 90 Mcg 8 Gm Inhaler) 2 puff INHALE Q4H PRN PRN Reason: shortness of breath or wheezing Apixaban (Apixaban 5 Mg Tablet) 5 mg PO BID [facility] Last Admin: 02/01/25 09:40 Dose: 5 mg Bupropion HCl (Bupropion Hcl Xl 300 Mg Tab.Er.24h) 300 mg PO DAILY [facility] Last Admin: 02/01/25 09:40 Dose: 300 mg Buspirone HCl (Buspirone Hcl 10 Mg Tablet) 10 mg PO BID [facility] Last Admin: 02/01/25 09:40 Dose: 10 mg Calcium Carbonate (Calcium Carbonate 750 Mg Tab.Chew) 750 mg PO Q4H PRN PRN Reason: Heartburn Famotidine (Famotidine 20 Mg Tablet) 20 mg PO DAILY [facility] Last Admin: 02/01/25 09:40 Dose: 20 mg Ferrous Sulfate (Ferrous Sulfate 324 Mg Tablet.Dr) 324 mg PO DAILY [facility] Last Admin: 02/01/25 09:41 Dose: 324 mg Fluoxetine HCl (Fluoxetine Hcl 20 Mg Capsule) 40 mg PO DAILY [facility] Last Admin: 02/01/25 09:41 Dose: 40 mg Fluticasone/Vilanterol (Fluticasone/Vilanterol 200/25 Blst.W.Dev) 1 puff INHALE RDAILY [facility] Last Admin: 02/01/25 11:22 Dose: 1 puff Folic Acid (Folic Acid 1 Mg Tablet) 1 mg PO DAILY [facility] Last Admin: 02/01/25 09:40 Dose: 1 mg Hydromorphone HCl (Hydromorphone Hcl 0.5 Mg/0.5 Ml Syringe) 0.5 mg IVPUSH Q3H PRN; Protocol PRN Reason: Pain, Severe (Pain Scale 7-10) Last Admin: 02/01/25 09:41 Dose: 0.5 mg Hydroxychloroquine Sulfate (Hydroxychloroquine Sulfate 200 Mg Tablet) 300 mg PO BID [facility] Last Admin: 02/01/25 09:41 Dose: 300 mg Piperacillin Sod/Tazobactam (Sod 3.375 gm/ Sodium Chloride) 50 mls @ 100 mls/hr IV Q6H [facility] Last Infusion: 02/01/25 11:51 Dose: Infused Levothyroxine Sodium (Levothyroxine Sodium 175 Mcg Tablet) 175 mcg PO DAILY@0600 [facility] Last Admin: 02/01/25 09:41 Dose: 175 mcg Lidocaine (Lidocaine 4 % Patch Adh..Patch) 1 patch TRANSDERMA DAILY [facility]; Protocol Last Admin: 02/01/25 09:42 Dose: 1 patch Loratadine (Loratadine 10 Mg Tablet) 10 mg PO DAILY [facility] Last Admin: 02/01/25 09:41 Dose: 10 mg Lorazepam (Lorazepam 1 Mg Tablet) 1 mg PO DAILY PRN PRN Reason: anxiety Magnesium Hydroxide (Milk Of Magnesia 30 Ml Oral.Susp) 30 ml PO DAILY PRN PRN Reason: Constipation Melatonin (Melatonin 3 Mg Tablet) 6 mg PO BEDTIME PRN PRN Reason: Insomnia Multivitamins/Vitamin C (Multivitamin Tablet) 1 tab PO DAILY [facility] Last Admin: 02/01/25 09:41 Dose: 1 tab Nicotine (Nicotine 21 Mg Patch.Td24) 21 mg TRANSDERMA DAILY [facility] Last Admin: 02/01/25 09:42 Dose: 21 mg Nortriptyline HCl (Nortriptyline Hcl 25 Mg Capsule) 75 mg PO BEDTIME [facility] Oxycodone HCl (Oxycodone Hcl Immed Release 5 Mg Tablet) 5 mg PO Q6H PRN PRN Reason: Pain, Moderate(Pain Scale 4-6) Pravastatin Sodium (Pravastatin Sodium 40 Mg Tablet) 40 mg PO BEDTIME [facility] Sodium Chloride (0.9 % Sodium Chloride Flush 3 Ml Syringe) 3 ml IVFLUSH QSHIFT [facility] Last Admin: 02/01/25 07:18 Dose: Not Given Sulfasalazine (Sulfasalazine 500 Mg Tablet) 500 mg PO DAILY@2000 [facility] Sulfasalazine (Sulfasalazine 500 Mg Tablet) 1,000 mg PO DAILY@0800 [facility] Tiotropium Slater (Tiotropium Slater 2.5 Mcg 1 Puff/2.5 Mcg Mist.Inhal) 2 puff INHALE RDAILY [facility] Last Admin: 02/01/25 11:22 Dose: 2 puff Vitamin D (Cholecalciferol (Vitamin D3) 25 Mcg Tablet) 50 mcg PO DAILY [facility] Last Admin: 02/01/25 09:41 Dose: 50 mcg Home Medications ?Medication ?Instructions ?Recorded ?Confirmed ?Last Taken ?Type nebulizer and compressor (Vios #1 ea 02/15/22 12/25/24 Unknown History Aerosol Delivery System) lorazepam 1 mg tablet 1 mg PO DAILY PRN anxiety 04/24/24 02/01/25 05/22/24 08:00 History acetaminophen 325 mg tablet 650 mg PO Q6H PRN Pain 06/13/24 02/01/25 Unknown History (Tylenol) lidocaine 5 % topical patch 2 patch topical DAILY PRN pain 10/21/24 02/01/25 Unknown History sulfasalazine 500 mg tablet 1,000 mg PO DAILY@0800 10/21/24 02/01/25 01/31/25 History sulfasalazine 500 mg tablet 500 mg PO DAILY@199910/21/24 02/01/25 01/31/25 History alendronate 70 mg tablet 70 mg PO WE 02/01/25 02/01/25 01/27/25 History tiotropium bromide 2.5 2 puff inhalation DAILY copd 02/01/25 02/01/25 01/31/25 History mcg/actuation mist for inhalation (Spiriva Respimat) Physical Exam Vital Signs: Vital Signs: Last Vital Signs Temp 98.5 F 02/01/25 11:16 Pulse 96 02/01/25 11:24 Resp 18 02/01/25 11:24 BP 125/65 02/01/25 11:16 Pulse Ox 90 L 02/01/25 11:16 O2 Del Method Room Air 02/01/25 11:16 BMI result Body Mass Index 27.0 Const: General: cooperative, healthy appearing, comfortable and no acute distress Extrem: Other: Right knee normal to inspection Mild effusion No tenderness to palpation She has full ROM NVI Results Labs 02/01/25 03:40 02/01/25 03:40 Labs: Abnormal lab results 02/01/25 Range/Units 03:40 WBC 13.0 H (4.8-10.8) X10*3/uL MCV 78.8 L (80.0-98.0) fL MCH 23.5 L (27.0-33.0) pg MCHC 29.8 L (31.0-35.0) g/dl RDW 16.1 H (11.0-16.0) % MPV 8.4 L (9.4-12.3) fL Immature Gran % (Auto) 0.5 H (0.0-0.4) % Lymph % (Auto) 15.0 L (20-40) % Eos % (Auto) 4.9 H (0-4) % Eos # (Auto) 0.6 H (0.0-0.4) X10*3/uL Abs Immat Gran (auto) 0.07 H (0.00-0.03) X10*3/uL Absolute Neuts (auto) 9.1 H (2.0-8.3) x10*3/uL Alkaline Phosphatase 147 H (39-117) U/L H & H 02/01/25 Range/Units 03:40 Hgb 12.1 (12.0-16.0) g/dl Hct 40.6 (37.0-47.0) % All other labs normal. Diagnostic results Knee x-ray: image reviewed (IMPRESSION: 1. Severe knee degenerative change. 2. Large knee effusion and generalized soft tissue swelling. Correlate with any signs or symptoms of septic joint.) Assessment and Plan (1) Arthritis of right knee: Status: Acute (2) Effusion of knee joint right: Status: Acute Plan Likely inflammatory Recommend RICE Steroid injection prn out patient no further orthopedic intervention warranted Name: Emiliana Rea Age/Sex: 49/F : 1975 Unit#: [id number] Attend Dr: April Jeff W[employer] QUALITY ANALYST Re02/01/25 Status: ADM IN Location: [place] [address] Disch: Specimen: [id number] Collected: 02/01/25 Status: RES Req#: [id number] Received: 02/01/25 Source: Knee aspir Sp Desc: Subm Dr: Linda Jones MD Ordered: Syn Fld Cult Procedure Result Verified Gram stain Final 02/01/25 Gram stain results: 3+ polys 4+ red blood cells No organisms seen Anaerobic Culture PENDING Synovial fluid culture PENDING Procedures Date of Service Date of Service: 02/01/25
--- NOTE | 2025-02-01 14:38 | MHC.CM.PN ---
DX Inflammatory vs Septic Arthritis Lives with adult children. CYBER INCIDENT ANALYST services in place, 2-3 hrs daily. DME Cane, walker and WC. DP A referral has been sent to [facility], Patient's preference. DP Home with [facility] and family transport.
[2025-02-01] MEDS: 0.9 % Sodium Chloride Flush 3 ML SYRINGE IVFLUSH (17:22)
[2025-02-01] MEDS: sulfaSALAzine 500 MG TABLET PO (19:13)
[2025-02-01] MEDS: LORazepam 1 MG TABLET PO (19:14)
[2025-02-01] MEDS: Nortriptyline HCl 25 MG CAPSULE 75 MG PO (19:14)
[2025-02-01] MEDS: Pravastatin Sodium 40 MG TABLET PO (19:17)
[2025-02-02] VITALS (7 sets, daily range): BP systolic 124–181; BP diastolic 62–104; PULSE 95–99; RESP 18; TEMP 36.4–36.8; O2SAT 91–94
[2025-02-02 05:50] LABS: MANUAL DIFF FLAG NO
[2025-02-02 06:01] LABS: Basophils Absolute Auto 0.1 X10*3/uL (0.0-0.2); Basophils Percent Auto 0.9 % (0-2); Eosinophils Absolute Auto 0.6 X10*3/uL (0.0-0.4); Eosinophils Percent Auto 9.2 % (0-4); Hematocrit 36.7 % (37.0-47.0); Hemoglobin 10.8 g/dl (12.0-16.0); Imm Gran Abs Auto 0.04 X10*3/uL (0.00-0.03); Imm Gran Pct Auto 0.6 % (0.0-0.4); Lymphocytes Absolute Auto 1.2 X10*3/uL (1.2-4.9); Lymphocytes Percent Auto 18.7 % (20-40); Mean Corpuscular HGB Conc 29.4 g/dl (31.0-35.0); Mean Corpuscular Hemoglobin 23.9 pg (27.0-33.0); Mean Corpuscular Volume 81.2 fL (80.0-98.0); Mean Platelet Volume 9.4 fL (9.4-12.3); Monocytes Absolute Auto 0.6 X10*3/uL (0.1-1.2); Monocytes Percent Auto 8.3 % (2-11); Neutrophils Absolute Auto 4.1 x10*3/uL (2.0-8.3); Neutrophils Percent Auto 62.3 % (45-73); Platelet Count 166 X10*3/uL (160-400); Red Blood Count 4.52 X10*6/uL (4.20-5.50); Red Cell Distribution Width 16.3 % (11.0-16.0); White Blood Count 6.6 X10*3/uL (4.8-10.8)
[2025-02-02] MEDS: Piperacillin Sodium/Tazobactam 3.375 GM in 0.9 % Sodium Chloride 50 ML IV ×2 (06:12→11:51)
[2025-02-02] MEDS: Levothyroxine Sodium 175 MCG TABLET PO (06:12)
[2025-02-02 06:20] LABS: Anion Gap 8 (12-20); Blood Urea Nitrogen 13 mg/dL (9-16); Calcium 8.3 mg/dL (8.4-10.2); Carbon Dioxide 27 mmol/L (22-29); Chloride 110 mmol/L (96-108); Creatinine Clr Calc Pharmacy 85.7; Estimated Glomerular Filt Rate > 60; Glucose Random 105 mg/dL (60-115); Potassium 4.1 mmol/L (3.3-5.1); Sodium 141 mmol/L (135-145)
[2025-02-02] MEDS: Tiotropium Bromide 2.5 mcg 1 PUFF/2.5 MCG MIST.INHAL 2 PUFF INHALE (07:44)
[2025-02-02] MEDS: Fluticasone/Vilanterol 200/25 BLST.W.DEV 1 PUFF INHALE (07:44)
[2025-02-02] MEDS: Nicotine 21 MG PATCH.TD24 TRANSDERMA (08:31)
[2025-02-02] MEDS: Lidocaine 4 % Patch ADH..PATCH 1 PATCH TRANSDERMA (08:32)
[2025-02-02] MEDS: FLUoxetine HCl 20 MG CAPSULE 40 MG PO (08:33)
[2025-02-02] MEDS: Famotidine 20 MG TABLET PO (08:33)
[2025-02-02] MEDS: buPROPion HCl XL 300 MG TAB.ER.24H PO (08:33)
[2025-02-02] MEDS: Cholecalciferol (Vitamin D3) 25 MCG TABLET 50 MCG PO (08:33)
[2025-02-02] MEDS: Ferrous Sulfate 324 MG TABLET.DR PO (08:33)
[2025-02-02] MEDS: busPIRone HCl 10 MG TABLET PO (08:34)
[2025-02-02] MEDS: sulfaSALAzine 500 MG TABLET 1000 MG PO (08:34)
[2025-02-02] MEDS: Folic Acid 1 MG TABLET PO (08:34)
[2025-02-02] MEDS: Multivitamin TABLET 1 TAB PO (08:34)
[2025-02-02] MEDS: Hydroxychloroquine Sulfate 200 MG TABLET 300 MG PO (08:34)
[2025-02-02] MEDS: Apixaban 5 MG TABLET PO (08:34)
[2025-02-02] MEDS: Loratadine 10 MG TABLET PO (08:34)
[2025-02-02] MEDS: HYDROmorphone HCl 0.5 MG/0.5 ML SYRINGE IVPUSH ×2 (09:48→15:24)
--- NOTE | 2025-02-02 12:52 | HO.PM.IMPN ---
Subjective Subjective Date of Service: 02/02/25 Interval History: Follow up Knee pain feeling better today pain management Review of Systems Review of Systems: Yes all other systems are reviewed and are negative Physical Exam Vital Signs: Vital Signs: Last Vital Signs Temp 98.1 F 02/02/25 07:45 Pulse 99 02/02/25 08:08 Resp 18 02/02/25 07:47 BP 124/72 02/02/25 07:45 Pulse Ox 91 L 02/02/25 07:45 O2 Del Method Room Air 02/02/25 07:45 BMI result Body Mass Index 27.0 Appearing in no acute distress lung sounds are clear to auscultation heart regular rate rhythm, clear S1, S2 positive bowel sounds, abdomen is soft, nontender neuro patient is alert x3, no focal deficits Objective Data Active Medications Acetaminophen (Acetaminophen 325 Mg Tablet) 975 mg PO Q6H PRN PRN Reason: Pain, Mild 1-3,fever,headache Acetaminophen/Butalbital/Caffeine (Butalb/Acetamin/Caff 50/325/40 Tablet) 2 tab PO DAILY PRN PRN Reason: headache Albuterol Sulfate (Albuterol Sulfate (0.083%) 2.5 Mg/3 Ml Vial.Neb) 2.5 mg INHALE Q4H PRN PRN Reason: shortness of breath or wheezing Albuterol Sulfate (Albuterol Sulfate 90 Mcg 8 Gm Inhaler) 2 puff INHALE Q4H PRN PRN Reason: shortness of breath or wheezing Apixaban (Apixaban 5 Mg Tablet) 5 mg PO BID [facility] Last Admin: 02/02/25 08:34 Dose: 5 mg Documented By: SIGRID Bupropion HCl (Bupropion Hcl Xl 300 Mg Tab.Er.24h) 300 mg PO DAILY [facility] Last Admin: 02/02/25 08:33 Dose: 300 mg Documented By: SIGRID Buspirone HCl (Buspirone Hcl 10 Mg Tablet) 10 mg PO BID [facility] Last Admin: 02/02/25 08:34 Dose: 10 mg Documented By: SIGRID Calcium Carbonate (Calcium Carbonate 750 Mg Tab.Chew) 750 mg PO Q4H PRN PRN Reason: Heartburn Famotidine (Famotidine 20 Mg Tablet) 20 mg PO DAILY [facility] Last Admin: 02/02/25 08:33 Dose: 20 mg Documented By: SIGRID Ferrous Sulfate (Ferrous Sulfate 324 Mg Tablet.) 324 mg PO DAILY [facility] Last Admin: 02/02/25 08:33 Dose: 324 mg Documented By: SIGRID Fluoxetine HCl (Fluoxetine Hcl 20 Mg Capsule) 40 mg PO DAILY [facility] Last Admin: 02/02/25 08:33 Dose: 40 mg Documented By: SIGRID Fluticasone/Vilanterol (Fluticasone/Vilanterol 200/25 Blst.W.Dev) 1 puff INHALE RDAILY [facility] Last Admin: 02/02/25 07:44 Dose: 1 puff Documented By: EMILY Folic Acid (Folic Acid 1 Mg Tablet) 1 mg PO DAILY [facility] Last Admin: 02/02/25 08:34 Dose: 1 mg Documented By: SIGRID Hydromorphone HCl (Hydromorphone Hcl 0.5 Mg/0.5 Ml Syringe) 0.5 mg IVPUSH Q3H PRN; Protocol PRN Reason: Pain, Severe (Pain Scale 7-10) Last Admin: 02/02/25 09:48 Dose: 0.5 mg Documented By: SHELBY Hydroxychloroquine Sulfate (Hydroxychloroquine Sulfate 200 Mg Tablet) 300 mg PO BID [facility] Last Admin: 02/02/25 08:34 Dose: 300 mg Documented By: SIGRID Piperacillin Sod/Tazobactam (Sod 3.375 gm/ Sodium Chloride) 50 mls @ 100 mls/hr IV Q6H [facility] Last Infusion: 02/02/25 12:27 Dose: Infused Documented By: SHELBY Levothyroxine Sodium (Levothyroxine Sodium 175 Mcg Tablet) 175 mcg PO DAILY@0600 [facility] Last Admin: 02/02/25 06:12 Dose: 175 mcg Documented By: [place] Lidocaine (Lidocaine 4 % Patch Adh..Patch) 1 patch TRANSDERMA DAILY [facility]; Protocol Last Admin: 02/02/25 08:32 Dose: 1 patch Documented By: SIGRID Loratadine (Loratadine 10 Mg Tablet) 10 mg PO DAILY [facility] Last Admin: 02/02/25 08:34 Dose: 10 mg Documented By: SIGRID Lorazepam (Lorazepam 1 Mg Tablet) 1 mg PO DAILY PRN PRN Reason: anxiety Last Admin: 02/01/25 19:14 Dose: 1 mg Documented By: WAQAR Magnesium Hydroxide (Milk Of Magnesia 30 Ml Oral.Susp) 30 ml PO DAILY PRN PRN Reason: Constipation Melatonin (Melatonin 3 Mg Tablet) 6 mg PO BEDTIME PRN PRN Reason: Insomnia Multivitamins/Vitamin C (Multivitamin Tablet) 1 tab PO DAILY [facility] Last Admin: 02/02/25 08:34 Dose: 1 tab Documented By: SIGRID Nicotine (Nicotine 21 Mg Patch.Td24) 21 mg TRANSDERMA DAILY [facility] Last Admin: 02/02/25 08:31 Dose: 21 mg Documented By: SIGRID Nortriptyline HCl (Nortriptyline Hcl 25 Mg Capsule) 75 mg PO BEDTIME [facility] Last Admin: 02/01/25 19:14 Dose: 75 mg Documented By: WAQAR Oxycodone HCl (Oxycodone Hcl Immed Release 5 Mg Tablet) 5 mg PO Q6H PRN PRN Reason: Pain, Moderate(Pain Scale 4-6) Pravastatin Sodium (Pravastatin Sodium 40 Mg Tablet) 40 mg PO BEDTIME [facility] Last Admin: 02/01/25 19:17 Dose: 40 mg Documented By: WAQAR Sodium Chloride (0.9 % Sodium Chloride Flush 3 Ml Syringe) 3 ml IVFLUSH QSHIFT [facility] Last Admin: 02/02/25 09:37 Dose: Not Given Documented By: SHELBY Non-Admin Reason: IV Running Sulfasalazine (Sulfasalazine 500 Mg Tablet) 500 mg PO DAILY@2000 [facility] Last Admin: 02/01/25 19:13 Dose: 500 mg Documented By: WAQAR Sulfasalazine (Sulfasalazine 500 Mg Tablet) 1,000 mg PO DAILY@0800 [facility] Last Admin: 02/02/25 08:34 Dose: 1,000 mg Documented By: SIGRID Tiotropium Mcdonough (Tiotropium Mcdonough 2.5 Mcg 1 Puff/2.5 Mcg Mist.Inhal) 2 puff INHALE RDAILY [facility] Last Admin: 02/02/25 07:44 Dose: 2 puff Documented By: EMILY Vitamin D (Cholecalciferol (Vitamin D3) 25 Mcg Tablet) 50 mcg PO DAILY [facility] Last Admin: 02/02/25 08:33 Dose: 50 mcg Documented By: SIGRID Labs 02/02/25 05:03 02/02/25 05:03 Labs: Laboratory Results - last 24 hr 02/02/25 05:03 MCV 81.2 MCH 23.9 L MCHC 29.4 L RDW 16.3 H Plt Count 166 MPV 9.4 Immature Gran % (Auto) 0.6 H Neut % (Auto) 62.3 Lymph % (Auto) 18.7 L [place] % (Auto) 8.3 Eos % (Auto) 9.2 H Baso % (Auto) 0.9 Lymph # (Auto) 1.2 [place] # (Auto) 0.6 Eos # (Auto) 0.6 H Baso # (Auto) 0.1 Abs Immat Gran (auto) 0.04 H Absolute Neuts (auto) 4.1 Absolute Nucleated RBC 0.000 Nucleated RBC % (auto) 0.0 Anion Gap 8 L Estim Creat Clear Calc 85.7 Estimated GFR > 60 Random Glucose 105 Calcium 8.3 L D Microbiology Microbiology Results: Microbiology 02/01/25 06:01 Gram Stain - Final Knee aspirate Anaerobic Culture - Preliminary No growth to date. Joint Fluid Culture - Preliminary No growth after 1 day 02/01/25 03:46 Blood Culture - Preliminary Blood - Venous No growth after 24 hours. 02/01/25 03:40 Blood Culture - Preliminary Blood - Venous No growth after 24 hours. Assessment and Plan (1) Effusion of knee joint right: Status: Acute Plan 49-year-old female with a past medical history significant for COPD/asthma overlap, PAD on Eliquis and statin, mood disorder, lupus, iron-deficiency anemia, GERD, hypothyroid, chronic bilateral leg edema, and right lower extremity cellulitis complicated by C diff, who presented to the ED due to worsening right lower extremity swelling, erythema and tenderness for the past 2 months. R knee arthritis, inflammatory vs infectious RLE venous duplex negative for DVT R knee xray with severe knee degenerative change, large knee effusion and generalized soft tissue swelling. synovial fluid negative for septic arthritis s/p Zosyn, vancomycin ortho consult> no need for intervention, o/p imjections as needed normal uric acid Ice and pain control COPD/asthma overlap, moderate persistent no acute exacerbation continue home meds PAD continue Eliquis and statin Mood disorder continue home meds Lupus continue home meds Iron-deficiency anemia H&H normal follow CBC GERD continue home meds Hypothyroid continue home meds full code VTE prophy: praful [place] Stroke Does the patient have a stroke diagnosis?: No VTE Prior VTE?: No VTE Risk Level:: Medical - moderate - high VTE Device Contraindication: Treatment Not Indicated VTE Drug Contraindication: N/A - Med Ordered
--- NOTE | 2025-02-02 14:09 | MHC.CM.PN ---
PT eval performed and the recommendation is STR. Met with patient to obtain facility preferences. The patient declined STR. She has TEMPORARY ADMINISTRATIVE ASSISTANT services in place. VNA services were offered. Patient declined home services. Patient is aware that her PCP can order home services. Dp Home resumption of TEMPORARY ADMINISTRATIVE ASSISTANT services and family support.
--- NOTE | 2025-02-02 15:18 | PM.DS ---
DS: Providers Provider Date of Service: 02/02/25 Date of admission: 02/01/25 06:36 Date of discharge: 02/02/25 Primary care physician: Sylvia Hicks CNP Consults: 02/01/25 06:36 Consult to Orthopedics Routine Consulting Provider: [facility] Reason for consultation: inflammatory vs septic arhtritis Has provider been notified: No DS: Diagnosis Discharge Diagnosis (1) Effusion of knee joint right: Status: Acute DS: Summary Hospital Course Hospital Course: History and physical as per admitting provider Patient is a 49-year-old female with a past medical history significant for COPD/asthma overlap, PAD on Eliquis and statin, mood disorder, lupus, iron-deficiency anemia, GERD, hypothyroid, chronic bilateral leg edema, and right lower extremity cellulitis complicated by C diff, who presented to the ED due to worsening right lower extremity swelling, erythema and tenderness for the past 2 months. She reports it is significantly tender rating the pain a 10/10. She is wheelchair-bound and is unable to tolerate any weight-bearing with that leg. No drainage from the area. No recent injury. She denies any additional symptoms including nausea, vomiting, fever, chills, shortness of breath, chest pain, abdominal pain or upper respiratory symptoms. 49-year-old woman with a history of right knee arthritis, presenting with erythema and edema. Had small amount drained in the ER, synovial fluid negative for septic arthritis, empirically started on Zosyn and vancomycin but stopped. Seen and evaluated by Orthopedic surgery no need for intervention, may follow up outpatient for injections as needed normal uric acid. Ice and pain control. 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 No acute exacerbation. Continue home medications Peripheral arterial disease. Continue Eliquis and statin Mental health. Continue home medications Lupus. Continue home medications Iron-deficiency anemia. H&H stable. GERD. Continue home medications Hypothyroidism. Continue home medication Time Attestation Discharge Coordination Time (in mins): 40 Quality: Safe Use of Opioids Does Pt have an Active Cancer Diagnosis on the Problem List?: No Quality: Stroke Does the patient have a stroke diagnosis?: No Physical Exam Vital Signs: Vital Signs: Last Vital Signs Temp 98.1 F 02/02/25 07:45 Pulse 99 03/18/25 08:08 Resp 18 02/02/25 07:47 BP 124/72 02/02/25 07:45 Pulse Ox 91 L 02/02/25 07:45 O2 Del Method Room Air 02/02/25 07:45 BMI result Body Mass Index 27.0 Appearing in no acute distress head is normocephalic atraumatic eyes pupils are PERRLA sclera is anicteric mouth throat mucous membranes are intact and moist neck is supple no lymphadenopathy, no JVD noted lung sounds are clear to auscultation heart regular rate rhythm, clear S1, S2 positive bowel sounds, abdomen is soft, nontender neuro patient is alert x3, no focal deficits DS: Data Data Completed and Pending Completed studies during hospitalization [Text1]: Procedures Assistance with Respiratory Ventilation, Less than 24 Consecutive Hours, Continuous Positive Airway Pressure (11/25/21) Drainage of Right Elbow Bursa and Ligament, Open Approach (11/08/22) Excision of Left Lower Leg Subcutaneous Tissue and Fascia, Open Approach, Diagnostic (08/31/20) Insertion of Endotracheal Airway into Trachea, Via Natural or Artificial Opening Endoscopic (11/25/21) Insertion of Infusion Device into Superior Vena Cava, Percutaneous Approach (10/26/23) Introduction of Baricitinib into Mouth and Pharynx, External Approach, [employer] 6 (11/25/21) Introduction of Remdesivir Anti-infective into Peripheral Vein, Percutaneous Approach, [employer] 5 (11/25/21) Introduction of Vasopressor into Peripheral Vein, Percutaneous Approach (11/25/21) Respiratory Ventilation, 24-96 Consecutive Hours (11/25/21) Respiratory Ventilation, Greater than 96 Consecutive Hours (11/25/21) Transfusion of Nonautologous Red Blood Cells into Peripheral Vein, Percutaneous Approach (11/25/21) Ultrasonography of Superior Vena Cava, Guidance (10/26/23) Labs on day of discharge: Laboratory Results - last 24 hr 02/02/25 05:03 WBC 6.6 RBC 4.52 Hgb 10.8 L Hct 36.7 L MCV 81.2 MCH 23.9 L MCHC 29.4 L RDW 16.3 H Plt Count 166 MPV 9.4 Immature Gran % (Auto) 0.6 H Neut % (Auto) 62.3 Lymph % (Auto) 18.7 L [place] % (Auto) 8.3 Eos % (Auto) 9.2 H Baso % (Auto) 0.9 Lymph # (Auto) 1.2 [place] # (Auto) 0.6 Eos # (Auto) 0.6 H Baso # (Auto) 0.1 Abs Immat Gran (auto) 0.04 H Absolute Neuts (auto) 4.1 Absolute Nucleated RBC 0.000 Nucleated RBC % (auto) 0.0 Sodium 141 Potassium 4.1 Chloride 110 H Carbon Dioxide 27 Anion Gap 8 L BUN 13 Creatinine 0.70 Estim Creat Clear Calc 85.7 Estimated GFR > 60 Random Glucose 105 Calcium 8.3 L D Preliminary micro results at discharge 02/01/25 06:01 Anaerobic Culture - Preliminary Knee aspirate No growth to date. Joint Fluid Culture - Preliminary No growth after 1 day 02/01/25 03:46 Blood Culture - Preliminary Blood - Venous No growth after 24 hours. 02/01/25 03:40 Blood Culture - Preliminary Blood - Venous No growth after 24 hours. Discharge Plan Discharge Anticipated Discharge Date/Time: 02/02/25 17:43 Patient Disposition: Home, Self-Care Discharge Diagnosis: Knee effusion Referrals: Sylvia Hicks CNP [Primary Care Provider] - 1 Week Discharge Medications: New oxycodone 5 mg tablet 5 mg PO Q8H PRN (Reason: pain) Qty: 15 0RF Rx Instructions: Partial Fill upon patient request. Continued levothyroxine 175 mcg tablet 175 mcg PO DAILY 30 Days Qty: 30 3RF hydroxychloroquine 200 mg tablet 300 mg PO BID Qty: 135 1RF fluticasone propion-salmeterol [Advair HFA] 230-21 mcg/actuation HFA aerosol inhaler 2 puff inhalation BID 30 Days Qty: 12 4RF Rx Instructions: administer with spacer prednisone 2.5 mg tablet 5 mg PO DAILY Qty: 60 4RF folic acid 1 mg tablet 1 mg PO DAILY Qty: 30 0RF bupropion HCl 100 mg tablet sustained-release 12 hr 100 mg PO BID 90 Days Qty: 180 0RF Eliquis 5 mg tablet 5 mg PO BID 90 Days Qty: 180 0RF ferrous sulfate [FeroSul] 325 mg (65 mg iron) tablet 325 mg PO DAILY 90 Days Qty: 90 0RF fluoxetine 20 mg capsule 40 mg PO DAILY 90 Days Qty: 180 0RF multivitamin [One Daily Multivitamin] Tablet 1 tab PO DAILY 90 Days Qty: 90 0RF nortriptyline 75 mg capsule 75 mg PO BEDTIME 90 Days Qty: 90 0RF pravastatin 40 mg tablet 40 mg PO BEDTIME 90 Days Qty: 90 0RF loratadine 10 mg tablet 10 mg PO DAILY 90 Days Qty: 90 0RF famotidine 20 mg tablet 20 mg PO DAILY 90 Days Qty: 90 0RF lorazepam 1 mg tablet 1 mg PO DAILY PRN (Reason: anxiety) acetaminophen [Tylenol] 325 mg Tablet 650 mg PO Q6H PRN (Reason: Pain) sulfasalazine 500 mg tablet 1,000 mg PO DAILY@0800 sulfasalazine 500 mg tablet 500 mg PO DAILY@2000 lidocaine 5 % adhesive patch,medicated 2 patch topical DAILY PRN (Reason: pain) ammonium lactate 12 % Lotion 1 appl topical BID Qty: 225 0RF Protocol: Apply to: Apply to: lower extremities alendronate 70 mg tablet 70 mg PO WE Spiriva Respimat 2.5 mcg/actuation mist 2 puff inhalation DAILY (DME) nebulizer and compressor [Vios Aerosol Delivery System] Device See Rx Instructions .ROUTE DIRECTED Qty: 1 Rx Instructions: As directed (DME) Aerovent Plus Spacer See Rx Instructions .Route Qty: 10 0RF Rx Instructions: As directed buspirone 10 mg tablet 10 mg PO BID 30 Days Qty: 60 3RF btymopwsdz-xmqjbbvkcibrf-uobf 50-325-40 mg tablet 2 tab PO DAILY PRN (Reason: headache) Qty: 14 0RF albuterol sulfate 90 mcg/actuation HFA aerosol inhaler 2 puff inhalation Q4-6H PRN (Reason: shortness of breath or wheezing) 30 Days Qty: 8.5 3RF albuterol sulfate 2.5 mg /3 mL (0.083 %) solution for nebulization 2.5 mg inhalation Q4-6H PRN (Reason: shortness of breath or wheezing) 30 Days Qty: 90 2RF cholecalciferol (vitamin D3) 50 mcg (2,000 unit) capsule 50 mcg PO DAILY Qty: 90 1RF Discharge Orders: Discharge Order (Routine); Ordered 02/02/25 Ordered By: April Jeff Diet: Advance to usual diet Activity on Discharge: As tolerated Stand Alone Forms: Patient Portal Discharge page Print Language: Romanian Care Plan Goals: Follow-up with orthopedic surgery outpatient for injections as needed Health Concerns: Knee effusion Plan of Treatment: Follow-up with primary care provider as needed Take all medications as per Assessment: See discharge summary
[2025-02-02] MEDS: 0.9 % Sodium Chloride Flush 3 ML SYRINGE IVFLUSH (15:24)
== END 2025-02-02 18:50 | disposition home or self-care (01) | DRG 351 ==
LOC: HO.ED 06:06 → HO.EDOVER 06:45 → HO.S3 07:33
PROVIDERS: Admitting Provider Physician Assistant; Emergency Provider Emergency Medicine; PCP Nurse Practitioner Family; Visit Provider Nurse Practitioner Acute Care
DX: M17.11 Unilateral primary osteoarthritis, right knee (principal); M32.9 Systemic lupus erythematosus, unspecified; E03.9 Hypothyroidism, unspecified; F17.210 Nicotine dependence, cigarettes, uncomplicated; I73.9 Peripheral vascular disease, unspecified; D50.9 Iron deficiency anemia, unspecified; K21.9 Gastro-esophageal reflux disease without esophagitis; J44.9 Chronic obstructive pulmonary disease, unspecified; J45.40 Moderate persistent asthma, uncomplicated; M79.7 Fibromyalgia; Z79.01 Long term (current) use of anticoagulants; Z79.52 Long term (current) use of systemic steroids; Z79.890 Hormone replacement therapy; Z79.899 Other long term (current) drug therapy
CPT/HCPCS: 36415; 73560; 80048; 80076; 83605; 83690; 84484; 84550; 85025; 87040; 87070; 87073; 87205; 89051; 93005; 93971; 94640; 97162; 99221; 99285; J1171; J1885; J2003; J2270; J2543; J3370

== ENCOUNTER → 2025-02-01 03:23 | Outpatient (BNV) | payer OTHER, SELFPAY | PROVIDERS: Admitting Provider Physician Assistant; Emergency Provider Emergency Medicine; PCP Nurse Practitioner Family; Visit Provider Internal Medicine Cardiovascular Disease | DX: R94.31 Abnormal electrocardiogram [ECG] [EKG] (principal) | CPT/HCPCS: 93010 ==

== ENCOUNTER → 2025-02-01 03:50 | Outpatient (BNV) | payer OTHER, SELFPAY | PROVIDERS: Emergency Provider Emergency Medicine; PCP Nurse Practitioner Family; Visit Provider Radiology Diagnostic Radiology | DX: M79.661 Pain in right lower leg (principal); M25.461 Effusion, right knee; M17.11 Unilateral primary osteoarthritis, right knee | CPT/HCPCS: 73560; 93971 ==

== ENCOUNTER → 2025-02-01 06:36 | Outpatient (BNV) | payer OTHER, SELFPAY | PROVIDERS: Admitting Provider Physician Assistant; Emergency Provider Emergency Medicine; PCP Nurse Practitioner Family; Visit Provider Physician Assistant | DX: M17.11 Unilateral primary osteoarthritis, right knee (principal); M25.461 Effusion, right knee | CPT/HCPCS: 99221 ==

== ENCOUNTER → 2025-02-01 06:36 | Outpatient (BNV) | payer OTHER, SELFPAY | PROVIDERS: Admitting Provider Physician Assistant; Emergency Provider Emergency Medicine; PCP Nurse Practitioner Family; Visit Provider Nurse Practitioner Acute Care | DX: M25.461 Effusion, right knee (principal) | CPT/HCPCS: 99239; 99499 ==

== ENCOUNTER 2025-02-04 17:45 | Emergency (ER) | payer OTHER, SELFPAY ==
[2025-02-04 17:56] VITALS: BP 142/98; BP 160/88; PULSE 102; PULSE 90; RESP 18; TEMP 37.4; O2SAT 94; BMI 27.7
--- NOTE | 2025-02-04 18:33 | ED.GENADULT ---
HPI - General Adult General Chief complaint: GI Bleed Stated complaint: Rectal Bleed Time Seen by Provider: 02/04/25 18:10 Source: patient, EMS, RN notes reviewed and old records reviewed Mode of arrival: EMS History of Present Illness ED Provider: Bruna Whitman PA-C HPI narrative: 49-year-old female with a past medical history of COPD/ asthma overlap, PID on Eliquis and statin, mood disorder, lupus, iron-deficiency anemia, GERD, hypothyroid, chronic bilateral LE edema, recently discharged from our facility on 02/02/2025 for right knee effusion, presenting to the ED via EMS complaining of rectal pain, bulge, and bleeding x few days. Describes discomfort as her body trying to expel something. admits feels palpable lump. Denies fever, chills, abdominal pain, lightheadedness / dizziness, melena, dysuria /hematuria, constipation, difficulty or inability urinate or have BM. Related Data Home Medications ?Medication ?Instructions ?Recorded ?Confirmed nebulizer and compressor (Vios #1 ea 02/15/22 12/25/24 Aerosol Delivery System) lorazepam 1 mg tablet 1 mg PO DAILY PRN anxiety 04/24/24 02/01/25 acetaminophen 325 mg tablet 650 mg PO Q6H PRN Pain 06/13/24 02/01/25 (Tylenol) lidocaine 5 % topical patch 2 patch topical DAILY PRN pain 10/21/24 02/01/25 sulfasalazine 500 mg tablet 1,000 mg PO DAILY@0800 10/21/24 02/01/25 sulfasalazine 500 mg tablet 500 mg PO DAILY@2000 10/21/24 02/01/25 alendronate 70 mg tablet 70 mg PO WE 02/01/25 02/01/25 tiotropium bromide 2.5 2 puff inhalation DAILY copd 02/01/25 02/01/25 mcg/actuation mist for inhalation (Spiriva Respimat) Previous Rx's ?Medication ?Instructions ?Recorded inhalational spacing device #10 ea 06/04/24 (Aerovent Plus spacer) cholecalciferol (vitamin D3) 50 50 mcg PO DAILY #90 caps 08/19/24 mcg (2,000 unit) capsule ammonium lactate 12 % lotion 1 appl topical BID #225 grams 10/22/24 levothyroxine 175 mcg tablet 175 mcg PO DAILY 30 days #30 tabs 01/08/25 hydroxychloroquine 200 mg tablet 300 mg (1.5 x 200 mg) PO BID #135 11/26/24 tabs fluticasone propionate 230 2 puff inhalation BID copd 30 days 12/15/24 mcg-salmeterol 21 mcg/actuation #12 grams HFA inhaler (Advair HFA) folic acid 1 mg tablet 1 mg PO DAILY #30 tabs 12/15/24 prednisone 2.5 mg tablet 5 mg (2 x 2.5 mg) PO DAILY #60 tabs 12/15/24 albuterol sulfate 2.5 mg/3 mL 2.5 mg (3 mL) inhalation Q4-6H PRN 12/23/24 (0.083 %) solution for nebulization shortness of breath or wheezing 30 days #90 mL albuterol sulfate 90 mcg/actuation 2 puff inhalation Q4-6H PRN 12/23/24 aerosol inhaler shortness of breath or wheezing 30 days #8.5 grams buspirone 10 mg tablet 10 mg PO BID 30 days #60 tabs 12/25/24 oygssftpwz-vpfyfhtvswnrd-oynofwya 2 tab PO DAILY PRN headache #14 12/25/24 50 mg-325 mg-40 mg tablet tabs apixaban 5 mg tablet (Eliquis) 5 mg PO BID 90 days #180 tabs 01/18/25 bupropion HCl 100 mg tablet,12 hr 100 mg PO BID 90 days #180 tabs 01/18/25 sustained-release famotidine 20 mg tablet 20 mg PO DAILY 90 days #90 tabs 01/18/25 ferrous sulfate 325 mg (65 mg 325 mg PO DAILY 90 days #90 tabs 01/18/25 iron) tablet (FeroSul) fluoxetine 20 mg capsule 40 mg (2 x 20 mg) PO DAILY 90 days 01/18/25 #180 caps loratadine 10 mg tablet 10 mg PO DAILY allergies 90 days 01/18/25 #90 tabs multivitamin (One Daily 1 tab PO DAILY 90 days #90 tabs 01/18/25 Multivitamin tablet) nortriptyline 75 mg capsule 75 mg PO BEDTIME 90 days #90 caps 01/18/25 pravastatin 40 mg tablet 40 mg PO BEDTIME 90 days #90 tabs 01/18/25 oxycodone 5 mg tablet 5 mg PO Q8H PRN pain #15 tabs 02/02/25 Allergies Allergy/AdvReac Type Severity Reaction Status Date / Time clarithromycin Allergy Intermediate FACIAL Verified 02/04/25 18:05 [CLARITHROMYCIN] SWELLING/REDNESS, facial rash, facial rash, facial rash, facial rash Review of Systems Review of Systems: Yes all other systems are reviewed and are negative Constitutional: Constitutional: Reports as per [facility] Past Medical History Attestation statement: The following information was validated with the patient. Source: old records reviewed Medical History Lupus Sepsis Depression Anxiety Kidney disease Headache Swelling Arthritis Hx of blood clots Sinusitis Asthma Stasis dermatitis Bilateral lower leg cellulitis Cellulitis COPD (chronic obstructive pulmonary disease) Lung density on x-ray Smoker COPD (chronic obstructive pulmonary disease) with acute bronchitis Bilateral pneumonia Tobacco abuse C. difficile colitis Community acquired pneumonia Bilateral pneumonia Open wound of right elbow Respiratory failure with hypoxia Pneumonia due to COVID-19 virus Acute respiratory distress syndrome (ARDS) due to COVID-19 virus Acute exacerbation of chronic obstructive airways disease Acute hypoxemic respiratory failure due to COVID-19 Ulcer of lower extremity Sepsis with acute hypoxic respiratory failure without septic shock Encounter for testing for latent tuberculosis infection Falling Charcot's joint of foot Cellulitis Redness and swelling of lower leg C. difficile colitis Secondary bacterial pneumonia Immunosuppression due to chronic steroid use Mixed connective tissue disease Cellulitis of right leg PAD (peripheral artery disease) Varicose veins of right lower extremity with inflammation Rheumatoid arthritis Cellulitis CVA (cerebral vascular accident) Proteinuria Fibromyalgia Hypothyroid Surgical History Status post incision and drainage History of breast lump/mass excision History of excision of mass History of partial hysterectomy History of cholecystectomy History of bunionectomy Family History Family History Father No problems noted. Mother Lung cancer Rheumatoid arthritis Social History Social History Household Members: Children Household Members Other:: My twin sons Housing: Apartment Housing Other:: second floor Do you presently have visiting nurse or other home services: Yes Alcohol intake: former Comment: pt asleep Patient Tobacco Use Status: Current everyday Tobacco user Tobacco use type: Cigarette Cigarette Packs Per Day: 1 Cigarettes Per Day: 20.0 Years Smoked: 30 e-Cigarette/Vaping Use: Never Used Second Hand Smoke Exposure: No Substance Use Type: Marijuana Advance Directives: Yes Advance Directives on File: Yes Advance Directives Date on File: 11/26/21 service: No Current occupational status: unemployed and disabled Current occupation: right hand dominant Cognitive needs: No Hearing needs: No Vision needs: Yes Physical Exam ED Vital Signs: Vital Signs - 24 hr 02/04/25 17:56 Temperature 99.3 F Pulse Rate 102 H Respiratory Rate 18 Blood Pressure 160/88 H Pulse Oximetry 94 Oxygen Delivery Method Room Air BMI result Body Mass Index 27.7 Const General: cooperative, healthy appearing and no acute distress Orientation/consciousness: patient oriented x3 Limitations: no limitations HENMT Head: Yes normal to inspection and Yes atraumatic Ears: hearing grossly normal bilaterally General nose exam: Normal external nose present Face and sinus: Yes normal facial exam Eyes General: appearance normal, both eyes and all related structures EOM: EOMs intact bilaterally Neck Neck: Yes normal visual inspection and Yes no meningeal signs Resp Effort & Inspection: normal respiratory effort and no respiratory distress Cardio Rate: regular rate GI Other: Please refer to image above of appreciable rectal prolapse. No active bleeding. Inspection: Yes normal to inspection Palpation (GI): Soft to palpation, nontender, no guarding and not rigid Rectal Exam - Female: Rectal prolapse Skin Rashes: no rashes Wounds: no wounds Neuro General: patient oriented x3, tone normal and no meningeal signs Cranial nerves: Yes CN's II-XII intact bilaterally Gait exam (Neuro): Normal gait present Extrem General: Yes normal to inspection Course Course Course Narrative: -1839-- discussed case with Dr. De La Rosa who recommended pouring sugar on prolapse. This will help shrink prolapse hopefully to the point we are able to reduce in the ED. Recommended follow-up with Dr. Pompa if successful > sugar applied x2 with minimal shrinkage. -1899-- ED care transferred to [facility] pending labs, re-evaluation, sugar re-application and attempted reduction. Reevaluation(s) Reevaluation #1: CBC w/ normocytic anemia appears to be around patients baseline. Chemistry with elevated transaminases. Alk-phos mild elevation. These findings however. To be around patient's baseline. Time: 19:39 Reevaluation #2: Rectal prolapse successfully reduced by . Patient now much more comfortable per my attending patient stable for dc home w/ general surgery follow up. Time: 19:40 Medical Decision Making Medical Decision Making [facility] Narrative: 49-year-old female with a past medical history of COPD/ asthma overlap, PID on Eliquis and statin, mood disorder, lupus, iron-deficiency anemia, GERD, hypothyroid, chronic bilateral LE edema, recently discharged from our facility on 02/02/2025 for right knee effusion, presenting to the ED via EMS complaining of rectal pain, bulge, and bleeding x few days. On exam tachycardic likely from pain, NAD, nontoxic appearing, appreciable rectal prolapse noted. Please refer to image. Low suspicion for obstruction, hemorrhoid, anemia. Plan: Labs, UA, General search consult Please refer to course for remaining clinical decision making, interpretation of labs/imaging results, and discussions with consultants and/or family members. Differential Diagnosis Differential Diagnoses: The differential diagnosis associated with the presentation includes As above Admission/Observation Consideration of admission/observation: Escalation of care including admission/observation considered Consult Healthcare Provider Management of the patient was discussed with: Chief Clinical Dietitian ( general surgery, Dr. De La Rosa) Lab Data [facility] Lab Attestation statement: I reviewed the patient's lab results. 02/04/25 18:38 02/04/25 18:38 Labs: Lab Results 02/04/25 Range/Units 18:38 WBC 10.3 (4.8-10.8) X10*3/uL RBC 4.61 (4.20-5.50) X10*6/uL Hgb 11.0 L (12.0-16.0) g/dl Hct 36.1 L (37.0-47.0) % MCV 78.3 L (80.0-98.0) fL MCH 23.9 L (27.0-33.0) pg MCHC 30.5 L (31.0-35.0) g/dl RDW 16.6 H (11.0-16.0) % Plt Count 159 L (160-400) X10*3/uL MPV 8.7 L (9.4-12.3) fL Immature Gran % (Auto) 0.4 (0.0-0.4) % Neut % (Auto) 70.6 (45-73) % Lymph % (Auto) 13.2 L (20-40) % [place] % (Auto) 8.0 (2-11) % Eos % (Auto) 7.1 H (0-4) % Baso % (Auto) 0.7 (0-2) % Lymph # (Auto) 1.4 (1.2-4.9) X10*3/uL [place] # (Auto) 0.8 (0.1-1.2) X10*3/uL Eos # (Auto) 0.7 H (0.0-0.4) X10*3/uL Baso # (Auto) 0.1 (0.0-0.2) X10*3/uL Abs Immat Gran (auto) 0.04 H (0.00-0.03) X10*3/uL Absolute Neuts (auto) 7.3 (2.0-8.3) x10*3/uL Absolute Nucleated RBC 0.000 (0.0-0.012) X10*3/uL Nucleated RBC % (auto) 0.0 (0.0-0.2) /100WBC PT 12.3 (10.9-12.4) SEC INR 1.1 (0.9-1.1) Sodium 140 (135-145) mmol/L Potassium 4.5 (3.3-5.1) mmol/L Chloride 106 (96-108) mmol/L Carbon Dioxide 27 (22-29) mmol/L Anion Gap 12 (12-20) BUN 16 (9-16) mg/dL Creatinine 0.73 (0.5-1.4) mg/dL Estim Creat Clear Calc 83.1 Estimated GFR > 60 Random Glucose 128 H (60-115) mg/dL Calcium 8.7 (8.4-10.2) mg/dL Magnesium 1.8 (1.6-2.6) mg/dL Total Bilirubin 0.2 (0.0-1.0) mg/dL Direct Bilirubin < 0.2 (0.0-0.5) mg/dL AST 34 H (5-31) U/L ALT 73 H (0-31) U/L Alkaline Phosphatase 159 H (39-117) U/L Total Protein 5.8 L (6.5-8.0) g/dL Albumin 3.0 L (3.5-5.0) g/dL Lipase 20 (8-78) U/L Radiology Impression Discussion of test interpretation with radiology: I have reviewed the radiologist's reading. Independent Historian Clinical information obtained from an independent historian. History obtained from or confirmed by: EMS External Record Review External record reviewed: Inpatient record, Office record, Outpatient record, Prior outpatient labs, Prior outpatient radiology, Primary care record and Outside ED record Tests considered The following testing was considered but not selected: As above Prescription Management I considered prescription management with: Pain Medication Chronic Conditions Patient?s care impacted by: Other Social Determinants Patient?s care significantly limited by Social Determinants of Health including: Other Social Determinant of Health Critical Care Time Critical Care Time Critical Care Time: Yes Total Critical Care Time: 35 Attestation: I attest to this time spent taking care of the patient, obtaining history, physical, reviewing labs, imaging, treatment of patients condition +/- specialist/hospitalist consult +/- procedure Discharge Plan Discharge Clinical Impression: Rectal prolapse Patient Disposition: Still a Patient Prescriptions: No Action levothyroxine 175 mcg tablet 175 mcg PO DAILY 30 Days Qty: 30 3RF hydroxychloroquine 200 mg tablet 300 mg PO BID Qty: 135 1RF fluticasone propion-salmeterol [Advair HFA] 230-21 mcg/actuation HFA aerosol inhaler 2 puff inhalation BID 30 Days Qty: 12 4RF Rx Instructions: administer with spacer prednisone 2.5 mg tablet 5 mg PO DAILY Qty: 60 4RF folic acid 1 mg tablet 1 mg PO DAILY Qty: 30 0RF bupropion HCl 100 mg tablet sustained-release 12 hr 100 mg PO BID 90 Days Qty: 180 0RF Eliquis 5 mg tablet 5 mg PO BID 90 Days Qty: 180 0RF ferrous sulfate [FeroSul] 325 mg (65 mg iron) tablet 325 mg PO DAILY 90 Days Qty: 90 0RF fluoxetine 20 mg capsule 40 mg PO DAILY 90 Days Qty: 180 0RF multivitamin [One Daily Multivitamin] Tablet 1 tab PO DAILY 90 Days Qty: 90 0RF nortriptyline 75 mg capsule 75 mg PO BEDTIME 90 Days Qty: 90 0RF pravastatin 40 mg tablet 40 mg PO BEDTIME 90 Days Qty: 90 0RF loratadine 10 mg tablet 10 mg PO DAILY 90 Days Qty: 90 0RF famotidine 20 mg tablet 20 mg PO DAILY 90 Days Qty: 90 0RF lorazepam 1 mg tablet 1 mg PO DAILY PRN (Reason: anxiety) acetaminophen [Tylenol] 325 mg Tablet 650 mg PO Q6H PRN (Reason: Pain) sulfasalazine 500 mg tablet 1,000 mg PO DAILY@0800 sulfasalazine 500 mg tablet 500 mg PO DAILY@2000 lidocaine 5 % adhesive patch,medicated 2 patch topical DAILY PRN (Reason: pain) ammonium lactate 12 % Lotion 1 appl topical BID Qty: 225 0RF Protocol: Apply to: Apply to: lower extremities alendronate 70 mg tablet 70 mg PO WE Spiriva Respimat 2.5 mcg/actuation mist 2 puff inhalation DAILY oxycodone 5 mg tablet 5 mg PO Q8H PRN (Reason: pain) Qty: 15 0RF Rx Instructions: Partial Fill upon patient request. (DME) nebulizer and compressor [CloudLock Aerosol Delivery System] Device See Rx Instructions .ROUTE DIRECTED Qty: 1 Rx Instructions: As directed (DME) Aerovent Plus Spacer See Rx Instructions .Route Qty: 10 0RF Rx Instructions: As directed buspirone 10 mg tablet 10 mg PO BID 30 Days Qty: 60 3RF eruqpwlvyc-ltkbiojncriln-lggv 50-325-40 mg tablet 2 tab PO DAILY PRN (Reason: headache) Qty: 14 0RF albuterol sulfate 90 mcg/actuation HFA aerosol inhaler 2 puff inhalation Q4-6H PRN (Reason: shortness of breath or wheezing) 30 Days Qty: 8.5 3RF albuterol sulfate 2.5 mg /3 mL (0.083 %) solution for nebulization 2.5 mg inhalation Q4-6H PRN (Reason: shortness of breath or wheezing) 30 Days Qty: 90 2RF cholecalciferol (vitamin D3) 50 mcg (2,000 unit) capsule 50 mcg PO DAILY Qty: 90 1RF Print Language: [place]i
[2025-02-04 18:45] LABS: MANUAL DIFF FLAG NO
[2025-02-04 18:46] LABS: Basophils Absolute Auto 0.1 X10*3/uL (0.0-0.2); Basophils Percent Auto 0.7 % (0-2); Eosinophils Absolute Auto 0.7 X10*3/uL (0.0-0.4); Eosinophils Percent Auto 7.1 % (0-4); Hematocrit 36.1 % (37.0-47.0); Imm Gran Abs Auto 0.04 X10*3/uL (0.00-0.03); Imm Gran Pct Auto 0.4 % (0.0-0.4); Lymphocytes Absolute Auto 1.4 X10*3/uL (1.2-4.9); Lymphocytes Percent Auto 13.2 % (20-40); Mean Corpuscular HGB Conc 30.5 g/dl (31.0-35.0); Mean Corpuscular Hemoglobin 23.9 pg (27.0-33.0); Mean Corpuscular Volume 78.3 fL (80.0-98.0); Mean Platelet Volume 8.7 fL (9.4-12.3); Monocytes Absolute Auto 0.8 X10*3/uL (0.1-1.2); Neutrophils Absolute Auto 7.3 x10*3/uL (2.0-8.3); Neutrophils Percent Auto 70.6 % (45-73); Platelet Count 159 X10*3/uL (160-400); Red Blood Count 4.61 X10*6/uL (4.20-5.50); Red Cell Distribution Width 16.6 % (11.0-16.0); White Blood Count 10.3 X10*3/uL (4.8-10.8)
[2025-02-04 18:51] LABS: INTERNATIONAL NORM RATIO 1.1 (0.9-1.1); Prothrombin Time 12.3 SEC (10.9-12.4)
[2025-02-04 18:59] LABS: Alanine Aminotransferase 73 U/L (0-31); Alkaline Phosphatase 159 U/L (39-117); Anion Gap 12 (12-20); Aspartate Amino Transferase 34 U/L (5-31); Bilirubin Direct < 0.2 mg/dL (0.0-0.5); Bilirubin Total 0.2 mg/dL (0.0-1.0); Blood Urea Nitrogen 16 mg/dL (9-16); Calcium 8.7 mg/dL (8.4-10.2); Carbon Dioxide 27 mmol/L (22-29); Chloride 106 mmol/L (96-108); Creatinine Clr Calc Pharmacy 83.1; Estimated Glomerular Filt Rate > 60; Glucose Random 128 mg/dL (60-115); Lipase 20 U/L (8-78); Magnesium 1.8 mg/dL (1.6-2.6); Potassium 4.5 mmol/L (3.3-5.1); Sodium 140 mmol/L (135-145); Total Protein 5.8 g/dL (6.5-8.0)
--- NOTE | 2025-02-04 20:02 | PC.NURSE ---
this nurse was floating/assisting emc nurse- iv inserted for ct scan, upon inserting IV- pts ct was cancelled, pts dc paperwork has been placed to discharge to home. will obtain discharge vitals and discharge patient
[2025-02-04 20:14] VITALS: BP 134/70; PULSE 92; RESP 16; TEMP 36.5; O2SAT 91
== END 2025-02-04 20:43 | disposition home or self-care (01) ==
PROVIDERS: Physician Assistant; Emergency Provider Internal Medicine
DX: K62.3 Rectal prolapse (principal); K62.5 Hemorrhage of anus and rectum; F17.210 Nicotine dependence, cigarettes, uncomplicated; F12.90 Cannabis use, unspecified, uncomplicated
CPT/HCPCS: 36415; 80048; 80076; 83690; 83735; 85025; 85610; 99283; 99284

== ENCOUNTER 2025-02-07 17:25 | Emergency (ER) | payer OTHER, SELFPAY ==
--- NOTE | 2025-02-07 17:57 | ED.ABDPAIN ---
HPI - Abdominal Pain General Chief Complaint: General Medical Stated Complaint: prolapse in rectum 08/27 pain Time Seen by Provider: 02/07/25 17:32 Source: patient Mode of arrival: EMS Limitations: no limitations History of Present Illness ED Provider: Dr. Brian Ku HPI narrative: 49-year-old female with a past medical history of COPD/ asthma overlap, PAD on Eliquis and statin, mood disorder, lupus, iron-deficiency anemia, GERD, hypothyroid, chronic bilateral LE edema, recently discharged from our facility on 02/02/2025 for right knee effusion with no septic arthritis, presenting to the ED via EMS complaining of recurrent rectal prolapse. The patient was seen on 02/04/2025 ( 3 days prior ) for rectal prolapse. The patient states that she has been constipated and was straining at the stool at that time. Patient was evaluated in the emergency department in the prolapse was reduced. The patient was discharged to home with instructions to follow-up with the on-call surgeon. The patient states that today she was not having a bowel movement in the rectum prolapsed. Patient states she did have a bowel movement after the rectal prolapse and the bowel movement was soft. Related Data Home Medications ?Medication ?Instructions ?Recorded ?Confirmed nebulizer and compressor (Vios #1 ea 02/15/22 12/25/24 Aerosol Delivery System) lorazepam 1 mg tablet 1 mg PO DAILY PRN anxiety 04/24/24 02/01/25 acetaminophen 325 mg tablet 650 mg PO Q6H PRN Pain 06/13/24 02/01/25 (Tylenol) lidocaine 5 % topical patch 2 patch topical DAILY PRN pain 10/21/24 02/01/25 sulfasalazine 500 mg tablet 1,000 mg PO DAILY@0800 10/21/24 02/01/25 sulfasalazine 500 mg tablet 500 mg PO DAILY@199910/21/24 02/01/25 alendronate 70 mg tablet 70 mg PO WE 02/01/25 02/01/25 tiotropium bromide 2.5 2 puff inhalation DAILY copd 02/01/25 02/01/25 mcg/actuation mist for inhalation (Spiriva Respimat) Previous Rx's ?Medication ?Instructions ?Recorded inhalational spacing device #10 ea 06/04/24 (Aerovent Plus spacer) cholecalciferol (vitamin D3) 50 50 mcg PO DAILY #90 caps 10/02/24 mcg (2,000 unit) capsule ammonium lactate 12 % lotion 1 appl topical BID #225 grams 10/22/24 levothyroxine 175 mcg tablet 175 mcg PO DAILY 30 days #30 tabs 11/25/24 hydroxychloroquine 200 mg tablet 300 mg (1.5 x 200 mg) PO BID #135 11/26/24 tabs fluticasone propionate 230 2 puff inhalation BID copd 30 days 12/15/24 mcg-salmeterol 21 mcg/actuation #12 grams HFA inhaler (Advair HFA) folic acid 1 mg tablet 1 mg PO DAILY #30 tabs 12/15/24 prednisone 2.5 mg tablet 5 mg (2 x 2.5 mg) PO DAILY #60 tabs 12/15/24 albuterol sulfate 2.5 mg/3 mL 2.5 mg (3 mL) inhalation Q4-6H PRN 12/23/24 (0.083 %) solution for nebulization shortness of breath or wheezing 30 days #90 mL albuterol sulfate 90 mcg/actuation 2 puff inhalation Q4-6H PRN 12/23/24 aerosol inhaler shortness of breath or wheezing 30 days #8.5 grams buspirone 10 mg tablet 10 mg PO BID 30 days #60 tabs 12/25/24 hbgudtiebl-mkwqkdfixlpzo-hgpilhwf 2 tab PO DAILY PRN headache #14 12/25/24 50 mg-325 mg-40 mg tablet tabs apixaban 5 mg tablet (Eliquis) 5 mg PO BID 90 days #180 tabs 01/18/25 bupropion HCl 100 mg tablet,12 hr 100 mg PO BID 90 days #180 tabs 01/18/25 sustained-release famotidine 20 mg tablet 20 mg PO DAILY 90 days #90 tabs 01/18/25 ferrous sulfate 325 mg (65 mg 325 mg PO DAILY 90 days #90 tabs 01/18/25 iron) tablet (FeroSul) fluoxetine 20 mg capsule 40 mg (2 x 20 mg) PO DAILY 90 days 01/18/25 #180 caps loratadine 10 mg tablet 10 mg PO DAILY allergies 90 days 01/18/25 #90 tabs multivitamin (One Daily 1 tab PO DAILY 90 days #90 tabs 01/18/25 Multivitamin tablet) nortriptyline 75 mg capsule 75 mg PO BEDTIME 90 days #90 caps 01/18/25 pravastatin 40 mg tablet 40 mg PO BEDTIME 90 days #90 tabs 01/18/25 oxycodone 5 mg tablet 5 mg PO Q8H PRN pain #15 tabs 02/02/25 docusate sodium 100 mg capsule 100 mg PO BID 30 days #60 caps 02/07/25 (Colace) polyethylene glycol 3350 17 17 g PO DAILY 2 weeks #238 grams 02/07/25 gram/dose oral powder (Miralax) Allergies Allergy/AdvReac Type Severity Reaction Status Date / Time clarithromycin Allergy Intermediate FACIAL Verified 02/07/25 18:18 [CLARITHROMYCIN] SWELLING/REDNESS, facial rash, facial rash, facial rash, facial rash Review of Systems Review of Systems Yes all other systems are reviewed and are negative [facility] Past Medical History Medical History Lupus Sepsis Depression Anxiety Kidney disease Headache Swelling Arthritis Hx of blood clots Sinusitis Asthma Stasis dermatitis Bilateral lower leg cellulitis Cellulitis COPD (chronic obstructive pulmonary disease) Lung density on x-ray Smoker COPD (chronic obstructive pulmonary disease) with acute bronchitis Bilateral pneumonia Tobacco abuse C. difficile colitis Community acquired pneumonia Bilateral pneumonia Open wound of right elbow Respiratory failure with hypoxia Pneumonia due to COVID-19 virus Acute respiratory distress syndrome (ARDS) due to COVID-19 virus Acute exacerbation of chronic obstructive airways disease Acute hypoxemic respiratory failure due to COVID-19 Ulcer of lower extremity Sepsis with acute hypoxic respiratory failure without septic shock Encounter for testing for latent tuberculosis infection Falling Charcot's joint of foot Cellulitis Redness and swelling of lower leg C. difficile colitis Secondary bacterial pneumonia Immunosuppression due to chronic steroid use Mixed connective tissue disease Cellulitis of right leg PAD (peripheral artery disease) Varicose veins of right lower extremity with inflammation Rheumatoid arthritis Cellulitis CVA (cerebral vascular accident) Proteinuria Fibromyalgia Hypothyroid Surgical History Status post incision and drainage History of breast lump/mass excision History of excision of mass History of partial hysterectomy History of cholecystectomy History of bunionectomy Family History Family History Father No problems noted. Mother Lung cancer Rheumatoid arthritis Social History Social History Household Members: Children Household Members Other:: My twin sons Housing: Apartment Housing Other:: second floor Do you presently have visiting nurse or other home services: Yes Alcohol intake: former Comment: pt asleep Patient Tobacco Use Status: Current everyday Tobacco user Tobacco use type: Cigarette Cigarette Packs Per Day: 1 Cigarettes Per Day: 20.0 Years Smoked: 30 e-Cigarette/Vaping Use: Never Used Second Hand Smoke Exposure: No Substance Use Type: Marijuana Advance Directives: Yes Advance Directives on File: Yes Advance Directives Date on File: 11/26/21 service: No Current occupational status: unemployed and disabled Current occupation: right hand dominant Cognitive needs: No Hearing needs: No Vision needs: Yes Physical Exam ED Vital Signs: Vital Signs - 24 hr 02/07/25 18:16 Temperature 99.3 F Pulse Rate 104 H Respiratory Rate 18 Blood Pressure 151/77 H Pulse Oximetry 95 Oxygen Delivery Method Room Air BMI result Body Mass Index 25.3 vital signs revealed an elevated blood pressure of 151/77 and an elevated pulse of 104, otherwise unremarkable Exam: General: Awake, alert in no distress Abdomen: soft, non-tender, nondistended, normal bowel sounds Rectal: Prolapsed rectum see photos below Psych: Pleasant, cooperative Procedures Procedure Narrative Procedure Narrative: Procedure: Rectal prolapse reduction I did discuss rectal prolapse reduction procedure with the patient and she did give me informed verbal consent to proceed. The prolapse rectum was covered with 20 packets of sugar. 30 minutes after apply the sugar there was some reduction in the swelling of the prolapse. With gentle pressure and squeezed the prolapsed rectum,, the prolapse was easily reduced. Patient had some mild to moderate pain during the procedure otherwise there were no significant complications. Medical Decision Making Medical Decision Making MDM Narrative: 49-year-old female with a past medical history of COPD/ asthma overlap, PAD on Eliquis and statin, mood disorder, lupus, iron-deficiency anemia, GERD, hypothyroid, chronic bilateral LE edema, recently discharged from our facility on 02/02/2025 for right knee effusion with no septic arthritis, presenting to the ED via EMS complaining of recurrent rectal prolapse. patient states that the rectum prolapsed without having a bowel movement but then shortly after prolapse she did have a soft bowel movement. Vital signs revealed an elevated blood pressure and elevated heart rate otherwise unremarkable. Exam was consistent with a rectal prolapse. Differential diagnosis: Includes but is not limited to Rectal prolapse, malignancy Course: 19:39 The prolapsed rectum was covered with 20 packets of sugar. After 30 minutes there was some reduction in the size of the prolapsed and with gentle pressure and squeezing I was able to reduce the prolapsed. The patient was discharged home with prescriptions for MiraLax 17 g daily for 2 weeks and Colace 100 mg b.i.d. for 1 month. I did discuss the patient's presentation over tiger text with the covering general surgeon, Dr. Vickers and the patient will be referred to his practice for further evaluation and treatment. The patient was given printed and verbal instructions and discharged home. Admission/Observation Consideration of admission/observation: Escalation of care including admission/observation considered (Yes) Prescription Management I considered prescription management with: Other ( MiraLax and Colace) Chronic Conditions Patient?s care impacted by: Other ( COPD, PAD on Eliquis, hypertension) Discharge Plan Discharge Clinical Impression: Rectal prolapse Patient Disposition: Home, Self-Care Instructions: Rectal Prolapse (ED) Additional Instructions: You did have a rectal prolapse today which was pushed back in. I did discuss your recurrent rectal prolapse with our covering surgeon, Dr. Melendez Please call his office tomorrow to schedule a follow-up appointment to discuss further treatment options. Take MiraLax 1 packet in 8 oz of water daily for 2 weeks to help with constipation. Make sure you increase the amount of water that you drink to help soften your stools. Take the stool softener Colace(docusate) 100 mg twice a day for 1 month. Continue taking your other medications as prescribed by your providers. Follow-up with your doctor in 2 days. Please return to the emergency department if your symptoms get worse or if you develop any symptoms that are concerning to you. Prescriptions: New polyethylene glycol 3350 [Miralax] 17 gram/dose powder 17 g PO DAILY 14 Days Qty: 238 0RF docusate sodium [Colace] 100 mg capsule 100 mg PO BID 30 Days Qty: 60 0RF No Action levothyroxine 175 mcg tablet 175 mcg PO DAILY 30 Days Qty: 30 3RF hydroxychloroquine 200 mg tablet 300 mg PO BID Qty: 135 1RF fluticasone propion-salmeterol [Advair HFA] 230-21 mcg/actuation HFA aerosol inhaler 2 puff inhalation BID 30 Days Qty: 12 4RF Rx Instructions: administer with spacer prednisone 2.5 mg tablet 5 mg PO DAILY Qty: 60 4RF folic acid 1 mg tablet 1 mg PO DAILY Qty: 30 0RF bupropion HCl 100 mg tablet sustained-release 12 hr 100 mg PO BID 90 Days Qty: 180 0RF Eliquis 5 mg tablet 5 mg PO BID 90 Days Qty: 180 0RF ferrous sulfate [FeroSul] 325 mg (65 mg iron) tablet 325 mg PO DAILY 90 Days Qty: 90 0RF fluoxetine 20 mg capsule 40 mg PO DAILY 90 Days Qty: 180 0RF multivitamin [One Daily Multivitamin] Tablet 1 tab PO DAILY 90 Days Qty: 90 0RF nortriptyline 75 mg capsule 75 mg PO BEDTIME 90 Days Qty: 90 0RF pravastatin 40 mg tablet 40 mg PO BEDTIME 90 Days Qty: 90 0RF loratadine 10 mg tablet 10 mg PO DAILY 90 Days Qty: 90 0RF famotidine 20 mg tablet 20 mg PO DAILY 90 Days Qty: 90 0RF lorazepam 1 mg tablet 1 mg PO DAILY PRN (Reason: anxiety) acetaminophen [Tylenol] 325 mg Tablet 650 mg PO Q6H PRN (Reason: Pain) sulfasalazine 500 mg tablet 1,000 mg PO DAILY@0800 sulfasalazine 500 mg tablet 500 mg PO DAILY@2000 lidocaine 5 % adhesive patch,medicated 2 patch topical DAILY PRN (Reason: pain) ammonium lactate 12 % Lotion 1 appl topical BID Qty: 225 0RF Protocol: Apply to: Apply to: lower extremities alendronate 70 mg tablet 70 mg PO WE Spiriva Respimat 2.5 mcg/actuation mist 2 puff inhalation DAILY oxycodone 5 mg tablet 5 mg PO Q8H PRN (Reason: pain) Qty: 15 0RF Rx Instructions: Partial Fill upon patient request. (DME) nebulizer and compressor [[employer] Aerosol Delivery System] Device See Rx Instructions .ROUTE DIRECTED Qty: 1 Rx Instructions: As directed (DME) Aerovent Plus Spacer See Rx Instructions .Route Qty: 10 0RF Rx Instructions: As directed buspirone 10 mg tablet 10 mg PO BID 30 Days Qty: 60 3RF plbkgcttvc-yhweaodjhzefs-czqh 50-325-40 mg tablet 2 tab PO DAILY PRN (Reason: headache) Qty: 14 0RF albuterol sulfate 90 mcg/actuation HFA aerosol inhaler 2 puff inhalation Q4-6H PRN (Reason: shortness of breath or wheezing) 30 Days Qty: 8.5 3RF albuterol sulfate 2.5 mg /3 mL (0.083 %) solution for nebulization 2.5 mg inhalation Q4-6H PRN (Reason: shortness of breath or wheezing) 30 Days Qty: 90 2RF cholecalciferol (vitamin D3) 50 mcg (2,000 unit) capsule 50 mcg PO DAILY Qty: 90 1RF Referrals: Andrea Vickers MD [Physician] - 1 week ( First rectal prolapse on 02/04/2025 and recurrent rectal prolapse 02/07/2025, both episodes reduced here in the emergency department. needs follow-up) Print Language: Irish
[2025-02-07 18:16] VITALS: BP 150/98; BP 151/77; PULSE 104; PULSE 109; RESP 18; TEMP 37.4; O2SAT 95; BMI 25.3
[2025-02-07 19:38] VITALS: BP 120/63; PULSE 100; RESP 16; TEMP 37.7; O2SAT 92
[2025-02-07 20:03] VITALS: BP 120/63; PULSE 100; RESP 16; TEMP 37.4; O2SAT 92
== END 2025-02-07 20:04 | disposition home or self-care (01) ==
PROVIDERS: Emergency Provider Emergency Medicine Emergency Medical Services; PCP Nurse Practitioner Family
DX: K62.3 Rectal prolapse (principal); M32.9 Systemic lupus erythematosus, unspecified; I48.0 Paroxysmal atrial fibrillation; F39 Unspecified mood [affective] disorder; J44.9 Chronic obstructive pulmonary disease, unspecified; Z79.01 Long term (current) use of anticoagulants; Z79.899 Other long term (current) drug therapy
CPT/HCPCS: 99284

== ENCOUNTER 2025-02-08 15:22 | Outpatient (AMB) | payer OTHER, SELFPAY ==
--- NOTE | 2025-02-08 15:29 | A.OFFVIS_ITS ---
Vital Signs 02/08/25 15:39 Height 5 ft 1 in Weight 134 lb BMI 25.3 Intake Visit Reasons: NewProb-Right knee pain Intake Note: Emiliana is a 49 year old female who presents today for an ER follow up of right knee pain. Patient was recently seen at [facility] ER due to knee pain, x-rays were taken and knee aspiration, patient states only blood came out. She was previously seen at [place] where she would receive cortisone and knee aspirations, last one about a year ago. Patient reports her knee pain has gotten worse since her foot surgery. States her pain is located around her knee. She is requesting a cortisone injection. Allergies clarithromycin [CLARITHROMYCIN] Allergy (Intermediate, Verified 02/08/25 15:40) FACIAL SWELLING/REDNESS, facial rash, facial rash, facial rash, facial rash Medication List - Last Reconciled 02/08/25 by Ryan Zelaya PA-C acetaminophen (Tylenol) 650 mg PO Q6H PRN albuterol sulfate 90 mcg/actuation 2 puffs inhalation Q4-6H PRN 30 days albuterol sulfate 2.5 mg (3 mL) inhalation Q4-6H PRN 30 days alendronate 70 mg PO WE ammonium lactate 12% 1 appl See Protocol topical BID apixaban (Eliquis) 5 mg PO BID 90 days bupropion HCl SR 100 mg PO BID 90 days buspirone 10 mg PO BID 30 days youifypcet-rdscytrpqoais-edmm 50-325-40 mg 2 tabs PO DAILY PRN cholecalciferol (vitamin D3) 50 mcg PO DAILY docusate sodium (Colace) 100 mg PO BID 30 days famotidine 20 mg PO DAILY 90 days ferrous sulfate (FeroSul) 325 mg PO DAILY 90 days fluoxetine 40 mg (2 x 20 mg) PO DAILY 90 days fluticasone propion-salmeterol 230-21 mcg/actuation (Advair HFA) 2 puffs inhalation BID 30 days folic acid 1 mg PO DAILY hydroxychloroquine 300 mg (1.5 x 200 mg) PO BID inhalational spacing device (Aerovent Plus spacer) As directed levothyroxine 175 mcg PO DAILY 30 days lidocaine 5% 2 patches topical DAILY PRN loratadine 10 mg PO DAILY 90 days lorazepam 1 mg PO DAILY PRN miscellaneous medical supply 1 wheelchair multivitamin (One Daily Multivitamin tablet) 1 tab PO DAILY 90 days nebulizer and compressor (Vios Aerosol Delivery System) As directed nortriptyline 75 mg PO BEDTIME 90 days oxycodone 5 mg PO Q8H PRN polyethylene glycol 3350 (Miralax) 17 grams PO DAILY 2 weeks pravastatin 40 mg PO BEDTIME 90 days prednisone 5 mg (2 x 2.5 mg) PO DAILY sulfasalazine 500 mg PO DAILY@2000 sulfasalazine 1,000 mg PO DAILY@0800 tiotropium bromide 2.5 mcg/actuation (Spiriva Respimat) 2 puffs inhalation DAILY HPI HPI NewProb-Right knee pain: Details: 49-year-old female presents to the office today for right knee pain. She was initially seen in the hospital for consultation of right knee swelling. She is on Eliquis and had a hemarthrosis. She has severe arthritis in the right knee. She has had a history of steroid injections with minimal relief. [facility] Medical History (Updated 02/08/25 @ 08:58 by Sylvia Hicks CNP) Charcot's joint of foot Lupus Sepsis Depression Anxiety Kidney disease Headache Swelling Arthritis Hx of blood clots Sinusitis Asthma Stasis dermatitis Bilateral lower leg cellulitis Cellulitis COPD (chronic obstructive pulmonary disease) Lung density on x-ray Smoker COPD (chronic obstructive pulmonary disease) with acute bronchitis Bilateral pneumonia Tobacco abuse C. difficile colitis Community acquired pneumonia Bilateral pneumonia Open wound of right elbow Respiratory failure with hypoxia Pneumonia due to COVID-19 virus Acute respiratory distress syndrome (ARDS) due to COVID-19 virus Acute exacerbation of chronic obstructive airways disease Acute hypoxemic respiratory failure due to COVID-19 Ulcer of lower extremity Sepsis with acute hypoxic respiratory failure without septic shock Encounter for testing for latent tuberculosis infection Falling Cellulitis Redness and swelling of lower leg C. difficile colitis Secondary bacterial pneumonia Immunosuppression due to chronic steroid use Mixed connective tissue disease Cellulitis of right leg PAD (peripheral artery disease) Varicose veins of right lower extremity with inflammation Rheumatoid arthritis Cellulitis CVA (cerebral vascular accident) Proteinuria Fibromyalgia Hypothyroid Surgical History (Updated 02/08/25 @ 15:41 by Radha Jeff) Hx of foot surgery Status post incision and drainage History of breast lump/mass excision History of excision of mass History of partial hysterectomy History of cholecystectomy History of bunionectomy Family History Father No problems noted. Mother Lung cancer Rheumatoid arthritis Social History Household Members: Children Household Members Other:: My twin sons Housing: Apartment Housing Other:: second floor Do you presently have visiting nurse or other home services: Yes Alcohol intake: former Comment: pt asleep Patient Tobacco Use Status: Current everyday Tobacco user Tobacco use type: Cigarette Cigarette Packs Per Day: 1 Cigarettes Per Day: 20.0 Years Smoked: 30 e-Cigarette/Vaping Use: Never Used Second Hand Smoke Exposure: No Substance Use Type: Marijuana Advance Directives Date on File: 11/26/21 service: No Current occupational status: unemployed and disabled Current occupation: right hand dominant Cognitive needs: No Hearing needs: No Vision needs: Yes Review of Systems Const All systems reviewed & are unremarkable except as noted in HPI and below Physical Exam Vital Signs: BMI result Body Mass Index 25.3 Const General: cooperative and no acute distress Orientation/consciousness: patient oriented x3 Resp Effort & Inspection: normal respiratory effort and able to speak in complete sentences Cardio Peripheral pulses: Peripheral pulses 2+ throughout Neuro General: patient oriented x3 Extrem Other: Right knee normal to inspection with valgus alignment. She has range of motion limited to 5 degrees of extension and 85 degrees of flexion. She has diffuse bilateral pitting edema. Calf is nontender. Neurovascularly intact. Office Procedures AMB Joint Injection/Aspiration Joint Injection/Aspiration Primary Site: right knee Prep: site was prepped using aseptic technique, ethochloride spray was applied and injection warnings given Injected: 80 mg of, DepoMedrol, with 8 mL of, 1% plain lidocaine and in the joint Approach Used: anterolateral Procedure: The patient tolerated the procedure well and there was some relief with the local anesthesia Coding 02536 - Glenohumeral/Tronchanteric Bursa/Intraarticular Procedure code (CPT) selection complete Assessment & Plan Assessment & Plan (1) Arthritis of right knee: Code(s): M17.11 - Unilateral primary osteoarthritis, right knee Category: Medical Plan: We discussed options today, which include steroid injection. The patient did consent to move forward with the injection, which was tolerated well.? I recommended rest, ice and elevation and OTC antiinflammatories prn for discomfort. If symptoms persist over the next 6-8 weeks, they will contact our office, otherwise, prn Coding Level of Care Code Est Pt Level 3 (25758) Complex EM visit Add On G2211 Diagnoses Arthritis of right knee M17.11 CPT Codes Coding - Joint 7: 19669 - Glenohumeral/Tronchanteric Bursa/Intraarticular ([id number])
[2025-02-08 15:39] VITALS: BMI 25.3
== END 2025-02-08 15:53 | disposition home or self-care (01) ==
LOC: HO.HOS 15:23
PROVIDERS: PCP Nurse Practitioner Family; Visit Provider Physician Assistant
DX: M17.11 Unilateral primary osteoarthritis, right knee (principal)
CPT/HCPCS: 20610; 99213

== ENCOUNTER → 2025-02-08 15:22 | Outpatient (BNVA) | payer OTHER, SELFPAY | PROVIDERS: PCP Nurse Practitioner Family; Visit Provider Physician Assistant | DX: M17.11 Unilateral primary osteoarthritis, right knee (principal) | CPT/HCPCS: 20610; 99212; J1010; J2003 ==

== ENCOUNTER → 2025-02-13 14:35 | Outpatient (BNV) | payer OTHER, SELFPAY | PROVIDERS: Visit Provider Radiology Diagnostic Radiology | DX: M48.02 Spinal stenosis, cervical region (principal) | CPT/HCPCS: 72141 ==

== ENCOUNTER 2025-02-13 14:36 | Outpatient (REF) | payer OTHER, SELFPAY ==
--- NOTE | ~2025-02-13 | MR_ITS ---
CLINICAL HISTORY: <OBR.31.1><OBR.31.1.1>M43.12 - Spondylolisthesis, cervical region Severe COPD </OB R.31.1.1><OBR.31.1.2> kyphosis. Pt unable to hold still during imaging due to pain </OBR.31.1.2><OBR. 31.1.3> coughing. Best images possible obtained.</OBR.31.1.3></OBR.31.1> MR of the cervical spine without contrast. COMPARISON: XR cervical spine dated 11/25/23 at 17:36 EST FINDINGS: Grade 2 anterolisthesis of C3 on C4, degenerative and stable. Grade 1 anterolisthesis of C4 on C5, degenerative and stable. Grade 1 anterolisthesis of C7 on T1, degenerative. Marked upper cervical kyphosis. Vertebral heights are maintained. Marrow signal is benign. Visualized posterior fossa is normal. No abnormal signal within the normal caliber cervical spinal cord. No syringomyelia or cervical epidural fluid collection. C2-C3: No significant neuroforaminal narrowing or spinal canal stenosis. C3-C4: Posterior disc uncovering measuring 5 mm. Severe spinal canal stenosis measuring 4 mm. Severe bilateral neural foraminal narrowing. C4-C5: Posterior disc uncovering measuring 3 mm. Severe right and moderate left neural foraminal narrowing. Mild spinal canal stenosis at this level. C5-C6: Anterior marginal osteophytes. Loss of disc space height. Posterior disc osteophyte complex indents the anterior subarachnoid space and abuts but does not deform the cord. The posterior subarachnoid space is preserved. Mild spinal canal stenosis. Uncovertebral joint hypertrophy. Severe bilateral neural foraminal narrowing. C6-C7: Anterior marginal osteophytes. Loss of disc space height. Posterior disc osteophyte complex indents the anterior subarachnoid space but does not abut or deform the cord. Uncovertebral joint hypertrophy. Severe bilateral neural foraminal narrowing. Mild spinal canal stenosis. C7-T1: Moderate right and mild left neural foraminal narrowing. Visualized paraspinal soft tissues are unremarkable. IMPRESSION: 1. No evidence of acute injury to the cervical spine. 2. Severe spinal canal stenosis at C3-4. 3. Mild spinal canal stenosis at C4-5, C5-6 C6-7. 4. Marked upper cervical kyphosis. Grade 2 anterolisthesis of C3 on C4, degenerative and stable from prior imaging. Grade 1 anterolisthesis of C4 on C5 and C7 on T1, degenerative. 5. Advanced multilevel cervical spondylosis with multilevel neural foraminal narrowing as described above. This document has been electronically signed by: Harjit Dietrich MD on 02/13/2025 16:27:22
== END 2025-02-13 14:37 | disposition home or self-care (01) ==
LOC: HO.MRI 14:36
PROVIDERS: Visit Provider Nurse Practitioner Family
DX: M43.12 Spondylolisthesis, cervical region (principal); R26.81 Unsteadiness on feet; M50.30 Other cervical disc degeneration, unspecified cervical region; M47.12 Other spondylosis with myelopathy, cervical region
CPT/HCPCS: 72141

== ENCOUNTER 2025-02-18 14:48 | Outpatient (AMB) | payer OTHER, SELFPAY ==
--- NOTE | 2025-02-18 14:51 | A.OFFVIS_ITS ---
Vital Signs 02/18/25 14:52 Height 5 ft 1 in Weight 144 lb BMI 27.2 Pulse 94 Pulse Source Pulse Oximeter Pulse Oximetry (%) 93 Oxygen Delivery Method Room Air Comment Manual BP needed. Intake Visit Reasons: rectal prolapse Intake Note: Patient referred for after ED visit on 02-07-2025 for rectal prolapse. Taking Miralax, Colace as directed. Patient c/o: Rectal pain / discomfort. No additional concerns reported per pt at this time. Cable Hooker Required: No Accompanied by: Family/Other Allergies clarithromycin [CLARITHROMYCIN] Allergy (Intermediate, Verified 02/18/25 15:01) FACIAL SWELLING/REDNESS, facial rash, facial rash, facial rash, facial rash Medication List - Last Reconciled 02/18/25 by Ludin Pompa MD acetaminophen (Tylenol) 650 mg PO Q6H PRN albuterol sulfate 90 mcg/actuation 2 puffs inhalation Q4-6H PRN 30 days albuterol sulfate 2.5 mg (3 mL) inhalation Q4-6H PRN 30 days alendronate 70 mg PO WE ammonium lactate 12% 1 appl See Protocol topical BID apixaban (Eliquis) 5 mg PO BID 90 days bupropion HCl SR 100 mg PO BID 90 days buspirone 10 mg PO BID 30 days gfpzvdjbyc-ttpmskgwcllhj-wvma 50-325-40 mg 2 tabs PO DAILY PRN cholecalciferol (vitamin D3) 50 mcg PO DAILY docusate sodium (Colace) 100 mg PO BID 30 days famotidine 20 mg PO DAILY 90 days ferrous sulfate (FeroSul) 325 mg PO DAILY 90 days fluoxetine 40 mg (2 x 20 mg) PO DAILY 90 days fluticasone propion-salmeterol 230-21 mcg/actuation (Advair HFA) 2 puffs inhalation BID 30 days folic acid 1 mg PO DAILY hydroxychloroquine 300 mg (1.5 x 200 mg) PO BID inhalational spacing device (Aerovent Plus spacer) As directed levothyroxine 175 mcg PO DAILY 30 days lidocaine 5% 2 patches topical DAILY PRN loratadine 10 mg PO DAILY 90 days lorazepam 1 mg PO DAILY PRN miscellaneous medical supply 1 wheelchair multivitamin (One Daily Multivitamin tablet) 1 tab PO DAILY 90 days nebulizer and compressor ([employer] Aerosol Delivery System) As directed nortriptyline 75 mg PO BEDTIME 90 days oxycodone 5 mg PO Q8H PRN polyethylene glycol 3350 (Miralax) 17 grams PO DAILY 2 weeks pravastatin 40 mg PO BEDTIME 90 days prednisone 5 mg PO DAILY sulfasalazine 500 mg PO DAILY@2000 sulfasalazine 1,000 mg PO DAILY@0800 tiotropium bromide 2.5 mcg/actuation (Spiriva Respimat) 2 puffs inhalation DAILY HPI HPI rectal prolapse: Details: [age] year old female referred for rectal prolapse. She says that about 2 weeks ago, she was severely constipated. At some point, she was pushing and straining hard for bowel movements and she noticed part of her rectum was coming out. She went to the ER. She was diagnosed to have a rectal prolapse. This was reduced in the emergency room. This happened again 2 days later and this was reduced as well She says that her constipation has improved since that time and she has had no further episodes of her prolapse She does have a diagnosis of COPD, peripheral a artery disease and says she had a previous CT. She says she is on anticoagulation because of this She is mostly wheelchair-bound because of severe arthritis in the right knee. She says she was supposed to have surgery for her right knee before but she was deemed to be at high risk. [facility] Medical History Arthritis of right knee Charcot's joint of foot Lupus Sepsis Depression Anxiety Kidney disease Headache Swelling Arthritis Hx of blood clots Sinusitis Asthma Stasis dermatitis Bilateral lower leg cellulitis Cellulitis COPD (chronic obstructive pulmonary disease) Lung density on x-ray Smoker COPD (chronic obstructive pulmonary disease) with acute bronchitis Bilateral pneumonia Tobacco abuse C. difficile colitis Community acquired pneumonia Bilateral pneumonia Open wound of right elbow Respiratory failure with hypoxia Pneumonia due to COVID-19 virus Acute respiratory distress syndrome (ARDS) due to COVID-19 virus Acute exacerbation of chronic obstructive airways disease Acute hypoxemic respiratory failure due to COVID-19 Ulcer of lower extremity Sepsis with acute hypoxic respiratory failure without septic shock Encounter for testing for latent tuberculosis infection Falling Cellulitis Redness and swelling of lower leg C. difficile colitis Secondary bacterial pneumonia Immunosuppression due to chronic steroid use Mixed connective tissue disease Cellulitis of right leg PAD (peripheral artery disease) Varicose veins of right lower extremity with inflammation Rheumatoid arthritis Cellulitis CVA (cerebral vascular accident) Proteinuria Fibromyalgia Hypothyroid Surgical History Hx of foot surgery Status post incision and drainage History of breast lump/mass excision History of excision of mass History of partial hysterectomy History of cholecystectomy History of bunionectomy Family History Father No problems noted. Mother Lung cancer Rheumatoid arthritis Social History Household Members: Children Household Members Other:: My twin sons Housing: Apartment Housing Other:: second floor Do you presently have visiting nurse or other home services: Yes Alcohol intake: former Comment: pt asleep Patient Tobacco Use Status: Current everyday Tobacco user Tobacco use type: Cigarette Cigarette Packs Per Day: 1 Cigarettes Per Day: 20.0 Years Smoked: 30 e-Cigarette/Vaping Use: Never Used Second Hand Smoke Exposure: No Substance Use Type: Marijuana Advance Directives Date on File: 11/26/21 service: No Current occupational status: unemployed and disabled Current occupation: right hand dominant Cognitive needs: No Hearing needs: No Vision needs: Yes Review of Systems Const Denies chills and Denies fever(s) Card Denies chest pain, Denies dyspnea and Denies dyspnea on exertion Resp Denies cough, Denies dyspnea and Denies dyspnea on exertion GI Denies hematochezia, Denies change in bowel habits and Reports constipation Denies hematuria Musc Reports back pain, Reports arthralgias and Reports limited range of motion Neuro Denies focal weakness and Denies convulsions Psych Denies depression and Denies mood swings Physical Exam Vital Signs: Last Vital Signs Pulse 94 02/18/25 14:52 Pulse Ox 93 02/18/25 14:52 Oxygen Delivery Method Room Air 02/18/25 14:52 BMI result Body Mass Index 27.2 Const Other: Wheelchair bound General: comfortable and no acute distress Resp Effort & Inspection: normal respiratory effort Cardio Rate: regular rate GI Other: Rectal exam, shows no prolapse at this time Palpation (GI): Soft to palpation Office Procedures Anoscopy She was in a shankar-knife position. The anoscope was gently inserted. A full examination of the entire anal canal was done. There were no lesions or any masses seen. There was no gross abnormality. There is no inflammatory change. There was no reducible prolapse. She appeared to have good sphincter tone on both resting and squeeze. There was no bleeding. There was no induration. [id number] Assessment & Plan Assessment & Plan (1) Rectal prolapse: Code(s): K62.3 - Rectal prolapse Category: Medical Plan: She had 2 episodes of full rectal prolapse 2 weeks ago. She was extremely constipated around that time. She has had no recurrence since then I told her that control of her constipation will be the 1st step. I am going to prescribe her Metamucil as well as Colace. I did tell her the technique of rectopexy which may be laparoscopic, for surgical treatment of her rectal prolapse. I explained the possible complicati ons of this procedure including bleeding, infections, bowel injury, recurrence of the prolapse She says that she would like to avoid any surgical intervention is possible. I told her that she is welcome to come back to the office he was re-evaluated down the line. Coding Level of Care Code New Pt Level 3 (06652) Diagnoses Rectal prolapse K62.3 CPT Codes Details - CPT: 86136-Hvadtoiv ([id number])
[2025-02-18 14:52] VITALS: PULSE 94; O2SAT 93; BMI 27.2
--- OUTSIDE RECORDS SUMMARY | 2025-02-18 16:17 | XMS_ITS | Encounter Summary ---
Author Organization [facility], Address [address] [place] [address] Phone Care Team Providers Care Planning Technician Name Role Phone Barbie Krueger MD Primary Care Prov ider Encounter Details Date Type Department Care Team (Late st Contact Info) Description 10/07/2024 Documentation Only [facility], [address] [place] [address] Amberly Mensah [address] [place] [phone] Social History Tobacco Use Types Packs/Day Years [...] on filedocumented in this encounter Care Teams Planning Technician Relationship Specialty Start Date End Date Barbie Krueger MD [address] [place] [address] PCP - General 09/22/19 documented as of this encounter
--- OUTSIDE RECORDS SUMMARY | 2025-02-18 16:17 | XMS_ITS | Encounter Summary ---
Author Organization [facility], Address [address] [place] [address] Phone Care Team Providers Care Supervisor Packing Name Role Phone Barbie Krueger MD Primary Care Prov ider Encounter Details Date Type Department Care Team (Late st Contact Info) Description 10/07/2024 Documentation Only [facility], [address] [place] [address] Amberly Mensah [address] [place] [phone] Social History Tobacco Use Types Packs/Day Years [...] filedocumented in this encounter Care Teams Supervisor Packing Relationship Specialty Start Date End Date Barbie Krueger MD [address] [place] [address] PCP - General 09/22/19 documented as of this encounter
--- OUTSIDE RECORDS SUMMARY | 2025-02-18 16:17 | XMS_ITS | Encounter Summary ---
Author Organization [facility], Address [address] [place] [address] Phone Care Team Providers Care It Communications Manager Name Role Phone Barbie Krueger MD Primary Care Prov ider Encounter Details Date Type Department Care Team (Late st Contact Info) Description 10/07/2024 Documentation Only [facility], [address] [place] [address] Amberly Mensah [address] [place] [phone] Social History Tobacco Use Types Packs/Day Years [...] on filedocumented in this encounter Care Teams It Communications Manager Relationship Specialty Start Date End Date Barbie Krueger MD [address] [place] [address] PCP - General 09/22/19 documented as of this encounter
--- OUTSIDE RECORDS SUMMARY | 2025-02-18 16:17 | XMS_ITS | Encounter Summary ---
Author Organization [facility], Address [address] [place] [address] Phone Care Team Providers Care Entry Level Marketing Assistant Name Role Phone Barbie Krueger MD Primary Care Prov ider Encounter Details Date Type Department Care Team (Late st Contact Info) Description 10/07/2024 Documentation Only [facility], [address] [place] [address] Amberly Mensah [address] [place] [phone] Social History Tobacco Use Types Packs/Day Years [...] on filedocumented in this encounter Care Teams Entry Level Marketing Assistant Relationship Specialty Start Date End Date Barbie Krueger MD [address] [place] [address] PCP - General 09/22/19 documented as of this encounter
--- OUTSIDE RECORDS SUMMARY | 2025-02-18 16:17 | XMS_ITS | Encounter Summary ---
Author Organization [facility], Address [address] [place] [address] Phone Care Team Providers Care Leather Dresser Name Role Phone Barbie Krueger MD Primary Care Prov ider Encounter Details Date Type Department Care Team (Late st Contact Info) Description 10/07/2024 Documentation Only [facility], [address] [place] [address] Amberly Mensah [address] [place] [phone] Social History Tobacco Use Types Packs/Day Years [...] on filedocumented in this encounter Care Teams Leather Dresser Relationship Specialty Start Date End Date Barbie Krugeer MD [address] [place] [address] PCP - General 09/22/19 documented as of this encounter
--- OUTSIDE RECORDS SUMMARY | 2025-02-18 16:17 | XMS_ITS | Encounter Summary ---
Author Organization [facility] [place], Address [address] [place] [address] Phone Care Team Providers Care Tax Assistant Name Role Phone Barbie Krueger MD Primary Care Prov ider Encounter Details Date Type Department Care Team (Late st Contact Info) Description 10/07/2024 Documentation Only [facility] [place], [address] [place] [address] Amberly Mensah [address] [place] [phone] Social History Tobacco Use Types Packs/Day Years [...] on filedocumented in this encounter Care Teams Tax Assistant Relationship Specialty Start Date End Date Barbie Krueger MD [address] [place] [address] PCP - General 09/22/19 documented as of this encounter
--- OUTSIDE RECORDS SUMMARY | 2025-02-18 16:17 | XMS_ITS | Encounter Summary ---
Author Organization [facility] [place], Address [address] [place] [address] Phone Care Team Providers Care Calendering Supervisor Name Role Phone Barbie Krueger MD Primary Care Prov ider Encounter Details Date Type Department Care Team (Late st Contact Info) Description 10/07/2024 Documentation Only [facility] [place], [address] [place] [address] Amberly Mensah [address] [place] [phone] Social History Tobacco Use Types Packs/Day Years [...] on filedocumented in this encounter Care Teams Calendering Supervisor Relationship Specialty Start Date End Date Barbie Krueger MD [address] [place] [address] PCP - General 09/22/19 documented as of this encounter
--- OUTSIDE RECORDS SUMMARY | 2025-02-18 16:17 | XMS_ITS | Encounter Summary ---
Author Organization [facility] [place], Address [address] [place] [address] Phone Care Team Providers Care Design Assistant Name Role Phone Barbie Krueger MD Primary Care Prov ider Encounter Details Date Type Department Care Team (Late st Contact Info) Description 10/07/2024 Documentation Only [facility] [place], [address] [place] [address] Amberly Menash [address] [place] [phone] Social History Tobacco Use Types Packs/Day Years [...] on filedocumented in this encounter Care Teams Design Assistant Relationship Specialty Start Date End Date Barbie Krueger MD [address] [place] [address] PCP - General 09/22/19 documented as of this encounter
--- OUTSIDE RECORDS SUMMARY | 2025-02-18 16:17 | XMS_ITS | Clinical Summary ---
Author Organization [facility] Address [address] [place] [address] Care Team Providers Care Bed Bug Exterminator Name Role Phone Unavailable Primary Care Provider Unavailabl e Encounters Date Type Department Care Team Description 12/18/2024 Orders Only [facility] External Provider, [facility] from Last 3 Months Social History Tobacco [...] Blood Count 12.9(H) 4.8 - 10.8 X10*3/uL [facility] Red Blood Count 4.60 4.20 - 5.50 X10*6/uL [facility] Hemoglobin 11.8(L) 12.0 - 16.0 g/dl [facility] Hematocrit 38.7 37.0 - 47.0 % [facility] Mean Corpuscular Volume 84.1 80.0 - 98.0 fL [facility] Mean Corpuscular Hemoglobin 25.7(L) 27.0 - 33.0 pg [facility] Mean Corpuscular HGB Conc 30.5(L) 31.0 - 35.0 g/dl [facility] Red Cell Distribution Width 13.5 11.0 - 16.0 % [facility] Platelet Count 174 160 - 400 X10*3/uL [facility] Mean Platelet Volume 9.0(L) 9.4 - 12.3 fL [facility] Neutrophils Percent Auto 67.7 45 - 73 % [facility] Imm Gran Pct Auto 0.6(H) 0.0 - 0.4 % [facility] Lymphocytes Percent Auto 14.6(L) 20 - 40 % [facility] Monocytes Percent Auto 10.2 2 - 11 % [facility] Eosinophils Percent Auto 6.3(H) 0 - 4 % [facility] Basophils Percent Auto 0.6 0 - 2 % [facility] NRBC Pct Auto 0.0 0.0 - 0.2 /100WBC [facility] Neutrophils Absolute Auto 8.7(H) 2.0 - 8.3 x10*3/uL [facility] Imm Gran Abs Auto 0.08(H) 0.00 - 0.03 X10*3/uL [facility] Lymphocytes Absolute Auto 1.9 1.2 - 4.9 X10*3/uL [facility] Monocytes Absolute Auto 1.3(H) 0.1 - 1.2 X10*3/uL [facility] Eosinophils Absolute Auto 0.8(H) 0.0 - 0.4 X10*3/uL [facility] Basophils Absolute Auto 0.1 0.0 - 0.2 X10*3/uL [facility] NRBC Abs Auto 0.000 0.0 - 0.012 X10*3/uL [facility] 12/18/2024 5:01 AM EST 12/18/2024 5:08 AM EST us Generic External Data Provider LAB BLOOD ORDERAB LES Final Result [facility] [address] [place] [address] [phone] * Lactic Acid (12/18/2024 5:01 AM EST) Lactic Acid 0.9 0.5 - 2.0 mmol/L [facility] 12/18/2024 5:01 AM EST 12/18/2024 5:08 AM EST us Generic External Data Provider LAB BLOOD ORDERAB LES Final Result [facility] [address] [place] [address] [phone] * (ABNORMAL) Comprehensive Metabolic Panel (12/18/2024 5:01 AM EST) Sodium 142 135 - 145 mmol/L [facility] Potassium 4.2 3.3 - 5.1 mmol/L [facility] Chloride 105 96 - 108 mmol/L [facility] Carbon Dioxide 28 22 - 29 mmol/L [facility] Anion Gap 13 12 - 20 [facility] Urea Nitrogen (BUN) 19(H) 9 - 16 mg/dL [facility] Creatinine, Serum 0.75 0.5 - 1.4 mg/dL [facility] Creatinine Clr Calc Pharmacy 70.0 [facility] Comment:Provided height and weight: 154.94 cm,56.699 kg.eGFR (calculated from the MDRD study equation) and eCrCl(calculated from the Cockcroft-Gault equation) are based ondifferent parameters and may not yield comparable results.If eCrCl result is absurd, please check patient'sheight/weight. Estimated Glomerular Filt Rate >60 [facility] Comment:Chronic Kidney Disea se: Estimated GFR < 60 mL/min/[id number] Kidney Disease: Estimated GFR < 15 mL/min/1.73m2 Glucose 90 60 - 115 mg/dL [facility] Calcium 9.6 8.4 - 10.2 mg/dL [facility] Bilirubin, Total 0.2 0.0 - 1.0 mg/dL [facility] Aspartate Amino Transferase 77(H) 5 - 31 U/L [facility] Alanine Aminotransferase 37(H) 0 - 31 U/L [facility] Total Protein 6.6 6.5 - 8.0 g/dL [facility] Albumin Level 3.6 3.5 - 5.0 g/dL [facility] Alkaline Phosphatase 192(H) 39 - 117 U/L [facility] 12/18/2024 5:01 AM EST 12/18/2024 5:08 AM EST us Generic External Data Provider LAB BLOOD ORDERAB LES Final Result Performing Organization Address City/[facility]/ZIP Co de Phone Number [facility] [address] [place] [address] [phone] * SARS-CoV-2 RNA, Influenza A/B, and RSV RNA, Ql NAAT (12/18/2024 4:54 AM EST) Influenza A PCR NEGATIVE Negative [facility] Influenza B PCR NEGATIVE Negative [facility] Resp Syncy Virus RNA Qual PCR NEGATIVE Negative [facility] SARS COV2 PCR NEGATIVE Negative [facility] Comment:All test results mus t [...] use by authorized laboratories.Testing performed on the [employer] GeneXpert utilizingreal-time RT-PCR.All SARS CoV2 and positive influenza A/B results arereported to [facility]. 12/18/2024 4:54 AM EST 12/18/2024 5:08 AM EST us Generic External Data Provider LAB MICROBIOLOGY - GENERAL ORDERABLES Final Result Performing Organization Address City/[facility]/ZIP Co de Phone Number [facility] [address] [place] [address] [phone] * XR Chest 1 View (12/18/2024 4:39 AM EST) Anatomical Region Laterality Modality Chest Radiographic Angelia ging 12/18/2024 4:39 AM EST Narrative 12/18/2024 4:41 AM EST ? [facility] ?[address] ?Marc Gomes [address] ?XRay Report ? Signed ? Patient: Rea,Emiliana M ?MR#: [id number] ?? [id number] ? : 1975 ?Acct:[id number] ? Age/Sex: 49 / F ?ADM Date: 12/18/24 ? Loc: HO.ED ? Attending Dr: ? Ordering Physician: Generic ED Physician ?? Date of Service: 12/18/24 ?? Procedure(s): XR chest 1V ?? Accession Number(s): [id number] ? cc: Generic ED Physician; [facility] ? CLINICAL HISTORY: cough ? 1 [...] DD/ 0439 ? TD/TT: 12/18/24 0439 ? Asset Accountant: ? Procedure Note Vj, Sushant - 12/18/[address] [address] XRay Report Signed Patient: Emiliana Rea [facility]#: [id number] : 1975Acct:[id number] Age/Sex: 49 / FADM Date: 12/18/24 Loc: HO.ED Attending Dr: Ordering Physician: Generic ED Physician Date of Service: 12/18/24 Procedure(s): XR chest 1V Accession Number(s): [id number] cc: Generic ED Physician; [facility] CLINICAL HISTORY: cough 1 view chest [...] in OV> 12/18/24 0441 DD/ TD/TT: 12/18/24438 Asset Accountant: [facility] External Provider IMG XR PROCEDURES Edited Result - Final from Last 3 Months
--- OUTSIDE RECORDS SUMMARY | 2025-02-18 16:17 | XMS_ITS | Encounter Summary ---
Author Organization [facility] [place], Address [address] [place] [address] Phone Care Team Providers Care Pe Electrical Engineer Name Role Phone Barbie Krueger MD Primary Care Prov ider Encounter Details Date Type Department Care Team (Late st Contact Info) Description 10/07/2024 Documentation Only [facility] [place], [address] [place] [address] Amberly Mensah [address] [place] [phone] Social History Tobacco Use Types Packs/Day Years [...] on filedocumented in this encounter Care Teams Pe Electrical Engineer Relationship Specialty Start Date End Date Barbie Krueger MD [address] [place] [address] PCP - General 09/22/19 documented as of this encounter
--- OUTSIDE RECORDS SUMMARY | 2025-02-18 16:17 | XMS_ITS | Encounter Summary ---
Author Organization [facility] [place], Address [address] [place] [address] Phone Care Team Providers Care Wearing Apparel Presser Name Role Phone Barbie Krueger MD Primary Care Prov ider Encounter Details Date Type Department Care Team (Late st Contact Info) Description 10/07/2024 Documentation Only [facility] [place], [address] [place] [address] Amberly Mensah [address] [place] [phone] Social History Tobacco Use Types Packs/Day Years [...] on filedocumented in this encounter Care Teams Wearing Apparel Presser Relationship Specialty Start Date End Date Barbie Krueger MD [address] [place] [address] PCP - General 09/22/19 documented as of this encounter
--- OUTSIDE RECORDS SUMMARY | 2025-02-18 16:17 | XMS_ITS | Encounter Summary ---
Author Organization [facility] [place], Address [address] [place] [address] Phone Care Team Providers Care Custody Officer Name Role Phone Barbie Krueger MD Primary Care Prov ider Encounter Details Date Type Department Care Team (Late st Contact Info) Description 10/07/2024 Documentation Only [facility] [place], [address] [place] [address] Amberly Mensah [address] [place] [phone] Social History Tobacco Use Types Packs/Day Years [...] on filedocumented in this encounter Care Teams Custody Officer Relationship Specialty Start Date End Date Barbie Krueger MD [address] [place] [address] PCP - General 09/22/19 documented as of this encounter
--- OUTSIDE RECORDS SUMMARY | 2025-02-18 16:17 | XMS_ITS | Encounter Summary ---
Author Organization [facility] [place], Address [address] [place] [address] Phone Care Team Providers Care Cytotechnologist Supervisor Name Role Phone Barbie Krueger MD Primary Care Prov ider Encounter Details Date Type Department Care Team (Late st Contact Info) Description 10/07/2024 Documentation Only [facility] [place], [address] [place] [address] Amberly Mensah [address] [place] [phone] Social History Tobacco Use Types Packs/Day Years [...] on filedocumented in this encounter Care Teams Cytotechnologist Supervisor Relationship Specialty Start Date End Date Barbie Krueger MD [address] [place] [address] PCP - General 09/22/19 documented as of this encounter
--- OUTSIDE RECORDS SUMMARY | 2025-02-18 16:17 | XMS_ITS | Encounter Summary ---
Author Organization [facility] [place], Address [address] [place] [address] Phone Care Team Providers Care Desktop Support Associate Name Role Phone Barbie Krueger MD Primary Care Prov ider Encounter Details Date Type Department Care Team (Late st Contact Info) Description 10/07/2024 Documentation Only [facility] [place], [address] [place] [address] Amberly Mensah [address] [place] [phone] Social History Tobacco Use Types Packs/Day Years [...] on filedocumented in this encounter Care Teams Desktop Support Associate Relationship Specialty Start Date End Date Barbie Krueger MD [address] [place] [address] PCP - General 09/22/19 documented as of this encounter
--- OUTSIDE RECORDS SUMMARY | 2025-02-18 16:17 | XMS_ITS | Encounter Summary ---
Author Organization [facility] [place], Address [address] [place] [address] Phone Care Team Providers Care Certified Surgical Tech/First Assistant Name Role Phone Barbie Krueger MD Primary Care Prov ider Encounter Details Date Type Department Care Team (Late st Contact Info) Description 10/07/2024 Documentation Only [facility] [place], [address] [place] [address] Amberly Mensah [address] [place] [phone] Social History Tobacco Use Types Packs/Day Years [...] filedocumented in this encounter Care Teams Certified Surgical Tech/First Assistant Relationship Specialty Start Date End Date Barbie Krueger MD [address] [place] [address] PCP - General 09/22/19 documented as of this encounter
--- OUTSIDE RECORDS SUMMARY | 2025-02-18 16:17 | XMS_ITS | Encounter Summary ---
Author Organization [facility] [place], Address [address] [place] [address] Phone Care Team Providers Care Drawing Supervisor Name Role Phone Barbie Krueger MD Primary Care Prov ider Encounter Details Date Type Department Care Team (Late st Contact Info) Description 10/07/2024 Documentation Only [facility] [place], [address] [place] [address] Amberly Mensah [address] [place] [phone] Social History Tobacco Use Types Packs/Day Years [...] on filedocumented in this encounter Care Teams Drawing Supervisor Relationship Specialty Start Date End Date Barbie Krueger MD [address] [place] [address] PCP - General 09/22/19 documented as of this encounter
--- OUTSIDE RECORDS SUMMARY | 2025-02-18 16:17 | XMS_ITS | Encounter Summary ---
Author Organization [facility] [place], Address [address] [place] [address] Phone Care Team Providers Care Tipple Operator Name Role Phone Barbie Krueger MD Primary Care Prov ider Encounter Details Date Type Department Care Team (Late st Contact Info) Description 10/07/2024 Documentation Only [facility] [place], [address] [place] [address] Amberly Mensah [address] [place] [phone] Social History Tobacco Use Types Packs/Day Years [...] on filedocumented in this encounter Care Teams Tipple Operator Relationship Specialty Start Date End Date Barbie Krueger MD [address] [place] [address] PCP - General 09/22/19 documented as of this encounter
--- OUTSIDE RECORDS SUMMARY | 2025-02-18 16:17 | XMS_ITS | Encounter Summary ---
Author Organization [facility] [place], Address [address] [place] [address] Phone Care Team Providers Care Outside B2B Sales Name Role Phone Barbie Krueger MD Primary Care Prov ider Encounter Details Date Type Department Care Team (Late st Contact Info) Description 10/07/2024 Documentation Only [facility] [place], [address] [place] [address] Amberly Mensah [address] [place] [phone] Social History Tobacco Use Types Packs/Day Years [...] on filedocumented in this encounter Care Teams Outside B2B Sales Relationship Specialty Start Date End Date Barbie Krueger MD [address] [place] [address] PCP - General 09/22/19 documented as of this encounter
--- OUTSIDE RECORDS SUMMARY | 2025-02-18 16:17 | XMS_ITS | Clinical Summary ---
Author Organization [facility], Address [address] [place] [address] [place] [address] Phone Care Team Providers Care Gm/Svp Global Publisher Business Name Role Phone Barbie Krueger MD Primary [...] Date Chronic nephritic syndrome 08/16/2020 0 03/17/2021 Immunizations Name Administration Dates Next Due Influenza [...] 07/30 Influenza Vaccine (#1) 2024 08/31/2015 Insurance [facility] Care Teams Gm/Svp Global Publisher Business Relationship Specialty Start Date End Date Barbie Krueger MD [address] [place] [address] PCP - General 09/22/19
--- OUTSIDE RECORDS SUMMARY | 2025-02-18 16:17 | XMS_ITS | Encounter Summary ---
Author Organization [facility] [place], Address [address] [place] [address] Phone Care Team Providers Care Website Project Manager Name Role Phone Barbie Krueger MD Primary Care Prov ider Encounter Details Date Type Department Care Team (Late st Contact Info) Description 10/07/2024 Documentation Only [facility] [place], [address] [place] [address] Amberly Mensah [address] [place] [phone] Social History Tobacco Use Types Packs/Day Years [...] on filedocumented in this encounter Care Teams Website Project Manager Relationship Specialty Start Date End Date Barbie Krueger MD [address] [place] [address] PCP - General 09/22/19 documented as of this encounter
--- OUTSIDE RECORDS SUMMARY | 2025-02-18 16:17 | XMS_ITS | Encounter Summary ---
Author Organization [facility] [place], Address [address] [place] [address] Phone Care Team Providers Care Cat Breeder Name Role Phone Barbie Krueger MD Primary Care Prov ider Reason for Visit * Reason Comments Med Refill Encounter Details Date Type Department Care Team (Late st Contact Info) Description 04/01/2024 Refill [facility] [place], [address] [place] [address] Lukas Kam MD [address] [place] [phone] Social History Tobacco Use Types Packs/Day Years [...] on filedocumented in this encounter Care Teams Cat Breeder Relationship Specialty Start Date End Date Barbie Krueger MD [address] [place] [phone] PCP - General 09/22/19 documented as of this encounter
--- OUTSIDE RECORDS SUMMARY | 2025-02-18 16:17 | XMS_ITS | Encounter Summary ---
Author Organization [facility] [place], Address [address] [place] [address] Phone Care Team Providers Care Director Of Vital Statistics Name Role Phone Barbie Krueger MD Primary Care Prov ider Encounter Details Date Type Department Care Team (Late st Contact Info) Description 10/07/2024 Documentation Only [facility] [place], [address] [place] [address] Amberly Mensah [address] [place] [phone] Social History Tobacco Use Types Packs/Day Years [...] on filedocumented in this encounter Care Teams Director Of Vital Statistics Relationship Specialty Start Date End Date Barbie Krueger MD [address] [place] [address] PCP - General 09/22/19 documented as of this encounter
== END 2025-02-18 15:08 | disposition home or self-care (01) ==
PROVIDERS: Visit Provider Surgery
DX: K62.3 Rectal prolapse (principal)
CPT/HCPCS: 46600; 99203

== ENCOUNTER → 2025-02-18 14:48 | Outpatient (BNVA) | payer OTHER, SELFPAY | PROVIDERS: Visit Provider Surgery | DX: M32.9 Systemic lupus erythematosus, unspecified (principal); M81.0 Age-related osteoporosis without current pathological fracture; M25.461 Effusion, right knee; K62.3 Rectal prolapse; I25.2 Old myocardial infarction; Z51.81 Encounter for therapeutic drug level monitoring; Z79.899 Other long term (current) drug therapy; Z79.52 Long term (current) use of systemic steroids; Z79.01 Long term (current) use of anticoagulants | CPT/HCPCS: 46600; 99202; 99212 ==

== ENCOUNTER 2025-02-18 16:04 | Outpatient (AMB) | payer OTHER, SELFPAY ==
--- NOTE | 2025-02-18 16:08 | MHC.OFFVIS ---
Vital Signs 02/18/25 16:15 Height 5 ft 1 in Weight 146 lb BMI 27.6 BP 152/80 H Blood Pressure Location Lt brachial Position Sitting Intake Visit Reasons: SLE Intake Note: Patient is here to follow up on her lupus today. Allergies clarithromycin [CLARITHROMYCIN] Allergy (Intermediate, Verified 02/18/25 16:17) FACIAL SWELLING/REDNESS, facial rash, facial rash, facial rash, facial rash Medication List - Last Reconciled 02/18/25 by Harriet Rao MD acetaminophen (Tylenol) 650 mg PO Q6H PRN albuterol sulfate 90 mcg/actuation 2 puffs inhalation Q4-6H PRN 30 days albuterol sulfate 2.5 mg (3 mL) inhalation Q4-6H PRN 30 days alendronate 70 mg PO WE ammonium lactate 12% 1 appl See Protocol topical BID apixaban (Eliquis) 5 mg PO BID 90 days bupropion HCl SR 100 mg PO BID 90 days buspirone 10 mg PO BID 30 days qfykjgzays-wszhkdekvwitz-rxos 50-325-40 mg 2 tabs PO DAILY PRN cholecalciferol (vitamin D3) 50 mcg PO DAILY docusate sodium (Colace) 100 mg PO BID 30 days docusate sodium (Colace) 100 mg PO BID famotidine 20 mg PO DAILY 90 days ferrous sulfate (FeroSul) 325 mg PO DAILY 90 days fluoxetine 40 mg (2 x 20 mg) PO DAILY 90 days fluticasone propion-salmeterol 230-21 mcg/actuation (Advair HFA) 2 puffs inhalation BID 30 days folic acid 1 mg PO DAILY hydroxychloroquine 300 mg (1.5 x 200 mg) PO BID inhalational spacing device (Aerovent Plus spacer) As directed levothyroxine 175 mcg PO DAILY 30 days lidocaine 5% 2 patches topical DAILY PRN loratadine 10 mg PO DAILY 90 days lorazepam 1 mg PO DAILY PRN miscellaneous medical supply 1 wheelchair multivitamin (One Daily Multivitamin tablet) 1 tab PO DAILY 90 days nebulizer and compressor ([employer] Aerosol Delivery System) As directed nortriptyline 75 mg PO BEDTIME 90 days oxycodone 5 mg PO Q8H PRN polyethylene glycol 3350 (Miralax) 17 grams PO DAILY 2 weeks pravastatin 40 mg PO BEDTIME 90 days prednisone 5 mg PO DAILY psyllium husk (Metamucil) 1 tbsp PO BID sulfasalazine 500 mg PO DAILY@2000 sulfasalazine 1,000 mg PO DAILY@0800 tiotropium bromide 2.5 mcg/actuation (Spiriva Respimat) 2 puffs inhalation DAILY HPI Comments Details: Patient is a 49-year-old female current everyday smoker with degenerative disc disease in her cervical and lumbar spine, anxiety/depression, COPD, recurrent infections including osteomyelitis, peripheral arterial disease on Eliquis, SLE/RA overlap and osteoporosis here today for follow up Interval History: Patient last seen 08/19/[address] Mora. At that time she was following up after hospitalization for right leg cellulitis as well as COPD exacerbation. At that time she was on prednisolone 5 mg, hydroxychloroquine 200 mg daily and sulfasalazine 1.5 g daily (1000 mg in the morning, 500 mg at night). She continued to complain of diffuse pain including her neck, bilateral hands, wrists and right knee pain as well as pain in her bilateral feet. Because of her multiple infections including cellulitis, pneumonia and osteomyelitis stronger immunosuppression was avoided. Today, She presents with pain and swelling to her right knee as well as her right lower extremity She continues to have widespread joint pain and discomfort Rheumatologic History: dx around 2003 (immune complex mediated Gomerulonephritis, membranous glomerulonephritis, inflammatory arthritis, +APLA syndrome, ++DSdna, low C3, low C4, +++ ACL IgM, +++ B2GP IgM) HCQ + prednisone throughout MTX DC due to recurrent cellulitis Sulfasalazine started around 2021 Initial history: This is a 47-year-old female with a past medical history of SLE who presents as a new patient. 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 Patient had a stillbirth around 2000. Around that time She was diagnosed with immune complex mediated glomerulonephritis. This was initially attributed to thyroid disease. Over the next 2-3 years she was diagnosed with SLE. She also had multiple strokes around 1999 for which were treated with Coumadin. Patient is currently on Eliquis however. 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 Over the years patient has been on multiple medications including prednisone, hydroxychloroquine, methotrexate. She was on methotrexate for some time but she developed recurrent cellulitis and methotrexate was discontinued. She was started on sulfasalazine 1 tab twice daily by Dr. Flores over the last 2 years. Continues to take hydroxychloroquine Back in February of 2023 patient had surgery for right foot Charcot's. Postop she had pneumonia and was on antibiotics. This was the last time she had been on antibiotics per patient. Today patient's main complaint is right knee pain and swelling. She has an appointment with Orthopedics soon Current Rheumatology Medication(s): Hydroxychloroquine 200 mg daily Sulfasalazine 1500 mg b.i.d. Prednisone 5 mg daily [facility] Medical History Arthritis of right knee Charcot's joint of foot Lupus Sepsis Depression Anxiety Kidney disease Headache Swelling Arthritis Hx of blood clots Sinusitis Asthma Stasis dermatitis Bilateral lower leg cellulitis Cellulitis COPD (chronic obstructive pulmonary disease) Lung density on x-ray Smoker COPD (chronic obstructive pulmonary disease) with acute bronchitis Bilateral pneumonia Tobacco abuse C. difficile colitis Community acquired pneumonia Bilateral pneumonia Open wound of right elbow Respiratory failure with hypoxia Pneumonia due to COVID-19 virus Acute respiratory distress syndrome (ARDS) due to COVID-19 virus Acute exacerbation of chronic obstructive airways disease Acute hypoxemic respiratory failure due to COVID-19 Ulcer of lower extremity Sepsis with acute hypoxic respiratory failure without septic shock Encounter for testing for latent tuberculosis infection Falling Cellulitis Redness and swelling of lower leg C. difficile colitis Secondary bacterial pneumonia Immunosuppression due to chronic steroid use Mixed connective tissue disease Cellulitis of right leg PAD (peripheral artery disease) Varicose veins of right lower extremity with inflammation Rheumatoid arthritis Cellulitis CVA (cerebral vascular accident) Proteinuria Fibromyalgia Hypothyroid Surgical History Hx of foot surgery Status post incision and drainage History of breast lump/mass excision History of excision of mass History of partial hysterectomy History of cholecystectomy History of bunionectomy Family History Father No problems noted. Mother Lung cancer Rheumatoid arthritis Social History Household Members: Children Household Members Other:: My twin sons Housing: Apartment Housing Other:: second floor Do you presently have visiting nurse or other home services: Yes Alcohol intake: former Comment: pt asleep Patient Tobacco Use Status: Current everyday Tobacco user Tobacco use type: Cigarette Cigarette Packs Per Day: 1 Cigarettes Per Day: 20.0 Years Smoked: 30 e-Cigarette/Vaping Use: Never Used Second Hand Smoke Exposure: No Substance Use Type: Marijuana Advance Directives Date on File: 11/26/21 service: No Current occupational status: unemployed and disabled Current occupation: right hand dominant Cognitive needs: No Hearing needs: No Vision needs: Yes Review of Systems Const Details: Review of Systems Constitutional: Denies fever, chills, weight loss ENT: Denies vision changes, eye pain or eye redness, dental caries, dry mouth GI: Denies nausea, vomiting, diarrhea, abdominal pain, change in BM Pulm: Denies SOB, PÉREZ, hemoptysis, wheezing Cards: Denies chest pain, palpitations Skin: Denies Raynaud's, rash, nail changes, photosensitivity, HOME WEATHERIZING WORKER: Denies headaches, weakness, paresthesias, recurrent falls MSK: as per HPI All other systems reviewed and are unremarkable except noted above Physical Exam Vital Signs: Last Vital Signs BP 152/80 H 02/18/25 16:15 BMI result Body Mass Index 27.6 Vital signs reviewed Physical Examination CONSTITUITIONAL Patient alert and cooperative. Patient examined in a wheelchair MSK Hands: ?Able to make a fist bilaterally but tenderness to palpation of the MCPs Wrists: ?Decreased range of motion to the right wrist Elbows: No tenderness to palpation Shoulders: Decreased range of motion motion to bilateral shoulders Knees: ?Right knee red, warm to touch and swollen. Tenderness to palpation. Right calf with uniform swelling, redness and warmth. Hyperpigmentation of bilateral lower extremities Ankles: Decreased range of motion bilaterally. Charcot joint to bilateral feet right worse than left SKIN Skin intact without rashes. Results Reviewed Results Reviewed: Laboratory Tests 02/04/25 18:38 WBC 10.3 RBC 4.61 Hgb 11.0 L Hct 36.1 L Plt Count 159 L Sodium 140 Potassium 4.5 Chloride 106 Carbon Dioxide 27 BUN 16 Creatinine 0.73 Calcium 8.7 AST 34 H ALT 73 H Alkaline Phosphatase 159 H Assessment & Plan Assessment & Plan (1) Lupus: Comment: dx around 2003 (immune complex mediated Gomerulonephritis, membranous glomerulonephritis, inflammatory arthritis, +APLA syndrome, ++DSdna, low C3, low C4, +++ ACL IgM, +++ B2GP IgM) HCQ + prednisone throughout MTX DC due to recurrent cellulitis Sulfasalazine started around 2021 Code(s): M32.9 - Systemic lupus erythematosus, unspecified Category: Medical Plan: #Lupus/RA overlap Patient is a 49-year-old female with lupus/RA overlap syndrome here today for follow up. Today her right knee looks inflamed with her right lower extremity looking very cellulitic. Concern for ongoing infection. We will schedule a ultrasound guided aspiration of the knee tomorrow Plan - urgent ultrasound-guided knee aspiration - continue Plaquenil, sulfasalazine and Prednisone - RTC 4 months - Labs before visit: CBC, CMP, ESR, CRP, C3, C4, dsDNA, UA, UPC (2) Encounter for monitoring sulfasalazine therapy: Code(s): Z51.81 - Encounter for therapeutic drug level monitoring; Z79.899 - Other terminal manager (current) drug therapy Plan: #Long-term Use of Sulphasalazine Discussed with patient the risks and benefits of sulfasalazine in the management of the rheumatic condition Benefits include: - Reduced pain, reduce mortality, maintenance of remission then reduction of flares Risks include: - GI upset, hemolysis (especially if G6PD deficiency), eosinophilia, headache, dizziness, rash, elevated LFTs (3) Encounter for monitoring of hydroxychloroquine therapy: Code(s): Z51.81 - Encounter for therapeutic drug level monitoring; Z79.899 - Other terminal manager (current) drug therapy Plan: #Long-term Use of Hydroxychloroquine Discussed with patient the risks and benefits of hydroxychloroquine in managing the rheumatic condition Benefits include: - Reduced pain, reduce mortality, maintenance of remission and reduction of flares Risks include: - GI upset, skin hyperpigmentation, retinal toxicity (especially after more than 5 years of use), myopathy Advised yearly ophthalmology visits (4) exterminator termite (current) use of systemic steroids: Code(s): Z79.52 - exterminator termite (current) use of systemic steroids Plan: #Long-term Use of Steroids Discussed with patient the risks and benefits of steroid for managing the rheumatic condition Benefits include: - Reduced pain, improved mobility, increased participation in activities, and decreased progression of disease Risks include: - GI upset, potential ultrasound worsening or formation (especially in patients > 65 years old), elevated blood pressure/worsening hypertension, elevated blood sugar/worsening diabetes control, worsening of bone density, elevated lipids/worsening triglycerides, cataract formation, weight gain Recommended using proton pump inhibitors (PPIs) for the duration of steroid use to reduce the risk of gastric ulcers and vitamin-D daily to reduce the risk of osteoporosis Labs checked: ?A1c, T spot, hepatitis-B and C serologies Pneumocystis jiroveci prophylaxis: ?Patient with risk factors including steroids greater than 50 mg for more than 30 days, age greater than 60 years, and lung involvement from underlying rheumatic disease requires prophylaxis and will be given so Plan I spent 46 minutes reviewing the record and labs, taking a history, examining the patient, discussing the treatment plan, ordering diagnostic work up, arranging urgent ultrasound and documenting in the medical record Orders: Orders US guided asp or inj major jt Today M25.461 - Effusion, right knee Medications: New alendronate 70 mg PO WE 14 tabs 1RF M81.0 - Age-related osteoporosis without current pathological fracture Coding Level of Care Code Est Pt Level 5 (05696) Complex EM visit Add On G2211 Diagnoses Lupus M32.9 Encounter for monitoring sulfasalazine therapy Z51.81; Z79.899 Encounter for monitoring of hydroxychloroquine therapy Z51.81; Z79.899 exterminator termite (current) use of systemic steroids Z79.52
[2025-02-18 16:15] VITALS: BP 152/80; BMI 27.6
--- OUTSIDE RECORDS SUMMARY | 2025-02-18 17:05 | XMS_ITS | Encounter Summary ---
Author Organization [facility] [place], Address [address] [place] [address] Phone Care Team Providers Care In Store Representative Name Role Phone Barbie Krueger MD Primary Care Prov ider Reason for Visit * Reason Comments Med Refill Encounter Details Date Type Department Care Team (Late st Contact Info) Description 04/01/2024 Refill [facility] [place], [address] [place] [address] Lukas Kam MD [address] [place] [phone] Social History Tobacco Use Types Packs/Day Years [...] on filedocumented in this encounter Care Teams In Store Representative Relationship Specialty Start Date End Date Barbie Krueger MD [address] [place] [phone] PCP - General 09/22/19 documented as of this encounter
--- OUTSIDE RECORDS SUMMARY | 2025-02-18 17:05 | XMS_ITS | Clinical Summary ---
Author Organization [facility], Address [address] [place] [address] [place] [address] Phone Care Team Providers Care Histology Supervisor Name Role Phone Barbie Krueger MD [...] 07/30 Influenza Vaccine (#1) 2024 08/31/2015 Insurance [facility] Care Teams Histology Supervisor Relationship Specialty Start Date End Date Barbie Krueger MD [address] [place] [address] PCP - General 09/22/19
--- OUTSIDE RECORDS SUMMARY | 2025-02-18 17:05 | XMS_ITS | Encounter Summary ---
Author Organization [facility] [place], Address [address] [place] [address] Phone Care Team Providers Care Acoustical Logging Engineer Name Role Phone Barbie Krueger MD Primary Care Prov ider Encounter Details Date Type Department Care Team (Late st Contact Info) Description 10/07/2024 Documentation Only [facility] [place], [address] [place] [address] Amberly Mensah [address] [place] [phone] Social History Tobacco Use Types Packs/Day Years [...] on filedocumented in this encounter Care Teams Acoustical Logging Engineer Relationship Specialty Start Date End Date Barbie Krueger MD [address] [place] [address] PCP - General 09/22/19 documented as of this encounter
--- OUTSIDE RECORDS SUMMARY | 2025-02-18 17:05 | XMS_ITS | Encounter Summary ---
Author Organization [facility] [place], Address [address] [place] [address] Phone Care Team Providers Care School Bus Dispatcher Name Role Phone Barbie Krueger MD Primary Care Prov ider Encounter Details Date Type Department Care Team (Late st Contact Info) Description 10/07/2024 Documentation Only [facility] [place], [address] [place] [address] Amberly Mensah [address] [place] [phone] Social History Tobacco Use Types Packs/Day Years [...] on filedocumented in this encounter Care Teams School Bus Dispatcher Relationship Specialty Start Date End Date Barbie Krueger MD [address] [place] [address] PCP - General 09/22/19 documented as of this encounter
--- OUTSIDE RECORDS SUMMARY | 2025-02-18 17:05 | XMS_ITS | Encounter Summary ---
Author Organization [facility], Address [address] [place] [address] Phone Care Team Providers Care Lehr Stripper Name Role Phone Barbie Krueger MD Primary Care Prov ider Encounter Details Date Type Department Care Team (Late st Contact Info) Description 10/07/2024 Documentation Only [facility], [address] [place] [address] Amberly Mensah [address] [place] [phone] Social History Tobacco Use Types Packs/Day Years [...] on filedocumented in this encounter Care Teams Lehr Stripper Relationship Specialty Start Date End Date Brabie Krueger MD [address] [place] [address] PCP - General 09/22/19 documented as of this encounter
--- OUTSIDE RECORDS SUMMARY | 2025-02-18 17:05 | XMS_ITS | Encounter Summary ---
Author Organization [facility], Address [address] [place] [address] Phone Care Team Providers Care Molding Fitter Name Role Phone Barbie Krueger MD Primary Care Prov ider Encounter Details Date Type Department Care Team (Late st Contact Info) Description 10/07/2024 Documentation Only [facility], [address] [place] [address] Amberly Mensah [address] [place] [phone] Social History Tobacco Use Types Packs/Day Years [...] on filedocumented in this encounter Care Teams Molding Fitter Relationship Specialty Start Date End Date Barbie Krueger MD [address] [place] [address] PCP - General 09/22/19 documented as of this encounter
--- OUTSIDE RECORDS SUMMARY | 2025-02-18 17:05 | XMS_ITS | Encounter Summary ---
Author Organization [facility], Address [address] [place] [address] Phone Care Team Providers Care Director Of Professional Services Name Role Phone Barbie Krueger MD Primary Care Prov ider Encounter Details Date Type Department Care Team (Late st Contact Info) Description 10/07/2024 Documentation Only [facility], [address] [place] [address] Amberly Mensah [address] [place] [phone] Social History Tobacco Use Types Packs/Day Years [...] in this encounter Care Teams Director Of Professional Services Relationship Specialty Start Date End Date Barbie Krueger MD [address] [place] [address] PCP - General 09/22/19 documented as of this encounter
--- OUTSIDE RECORDS SUMMARY | 2025-02-18 17:05 | XMS_ITS | Encounter Summary ---
Author Organization [facility], Address [address] [place] [address] Phone Care Team Providers Care Digital Marketing Consultant Name Role Phone Barbie Krueger MD Primary Care Prov ider Encounter Details Date Type Department Care Team (Late st Contact Info) Description 10/07/2024 Documentation Only [facility], [address] [place] [address] Amberly Mensah [address] [place] [phone] Social History Tobacco Use Types Packs/Day Years [...] on filedocumented in this encounter Care Teams Digital Marketing Consultant Relationship Specialty Start Date End Date Barbie Krueger MD [address] [place] [address] PCP - General 09/22/19 documented as of this encounter
--- OUTSIDE RECORDS SUMMARY | 2025-02-18 17:05 | XMS_ITS | Encounter Summary ---
Author Organization [facility], Address [address] [place] [address] Phone Care Team Providers Care Petrographer Name Role Phone Barbie Krueger MD Primary Care Prov ider Encounter Details Date Type Department Care Team (Late st Contact Info) Description 10/07/2024 Documentation Only [facility], [address] [place] [address] Amberly Mensah [address] [place] [phone] Social History Tobacco Use Types Packs/Day Years [...] on filedocumented in this encounter Care Teams Petrographer Relationship Specialty Start Date End Date Barbie Krueger MD [address] [place] [address] PCP - General 09/22/19 documented as of this encounter
--- OUTSIDE RECORDS SUMMARY | 2025-02-18 17:05 | XMS_ITS | Encounter Summary ---
Author Organization [facility], Address [address] [place] [address] Phone Care Team Providers Care Transmitter Chief Name Role Phone Barbie Krueger MD Primary Care Prov ider Encounter Details Date Type Department Care Team (Late st Contact Info) Description 10/07/2024 Documentation Only [facility], [address] [place] [address] Amberly Mensah [address] [place] [phone] Social History Tobacco Use Types Packs/Day Years [...] on filedocumented in this encounter Care Teams Transmitter Chief Relationship Specialty Start Date End Date Barbie Krueger MD [address] [place] [address] PCP - General 09/22/19 documented as of this encounter
--- OUTSIDE RECORDS SUMMARY | 2025-02-18 17:06 | XMS_ITS | Encounter Summary ---
Author Organization [facility], Address [address] [place] [address] Phone Care Team Providers Care Technology Manager Name Role Phone Barbie Krueger MD Primary Care Prov ider Encounter Details Date Type Department Care Team (Late st Contact Info) Description 10/07/2024 Documentation Only [facility], [address] [place] [address] Amberly Mensah [address] [place] [phone] Social History Tobacco Use Types Packs/Day Years [...] on filedocumented in this encounter Care Teams Technology Manager Relationship Specialty Start Date End Date Barbie Krueger MD [address] [place] [address] PCP - General 09/22/19 documented as of this encounter
--- OUTSIDE RECORDS SUMMARY | 2025-02-18 17:06 | XMS_ITS | Encounter Summary ---
Author Organization [facility], Address [address] [place] [address] Phone Care Team Providers Care Electronics Warfare Technician Name Role Phone Barbie Krueger MD Primary Care Prov ider Encounter Details Date Type Department Care Team (Late st Contact Info) Description 10/07/2024 Documentation Only [facility], [address] [place] [address] Amberly Mensah [address] [place] [phone] Social History Tobacco Use Types Packs/Day Years [...] on filedocumented in this encounter Care Teams Electronics Warfare Technician Relationship Specialty Start Date End Date Barbie Krueger MD [address] [place] [address] PCP - General 09/22/19 documented as of this encounter
--- OUTSIDE RECORDS SUMMARY | 2025-02-18 17:06 | XMS_ITS | Encounter Summary ---
Author Organization [facility] [place] [facility], Address [address] [place] [address] Phone Care Team Providers Care Ic Design Engineer Name Role Phone Barbie Krueger MD Primary Care Prov ider Encounter Details Date Type Department Care Team (Late st Contact Info) Description 10/07/2024 Documentation Only [facility], [address] [place] [address] Amberly Mensah [address] [place] [phone] Social History Tobacco Use Types Packs/Day Years [...] on filedocumented in this encounter Care Teams Ic Design Engineer Relationship Specialty Start Date End Date Barbie Krueger MD [address] [place] [phone] PCP - General 09/22/19 documented as of this encounter
--- OUTSIDE RECORDS SUMMARY | 2025-02-18 17:06 | XMS_ITS | Encounter Summary ---
Author Organization [facility], Address [address] [place] [address] Phone Care Team Providers Care Supervisor Delivery Department Name Role Phone Barbie Krueger MD Primary Care Prov ider Encounter Details Date Type Department Care Team (Late st Contact Info) Description 10/07/2024 Documentation Only [facility], [address] [place] [address] Amberly Mensah [address] [place] [phone] Social History Tobacco Use Types Packs/Day Years [...] filedocumented in this encounter Care Teams Supervisor Delivery Department Relationship Specialty Start Date End Date Barbie Krueger MD [address] [place] [address] PCP - General 09/22/19 documented as of this encounter
--- OUTSIDE RECORDS SUMMARY | 2025-02-18 17:06 | XMS_ITS | Encounter Summary ---
Author Organization [facility] [place], Address [address] [place] [address] Phone Care Team Providers Care Blind Installer Name Role Phone Barbie Krueger MD Primary Care Prov ider Encounter Details Date Type Department Care Team (Late st Contact Info) Description 10/07/2024 Documentation Only [facility], [address] [place] [address] Amberly Mensah [address] [place] [phone] Social History Tobacco Use Types Packs/Day Years [...] on filedocumented in this encounter Care Teams Blind Installer Relationship Specialty Start Date End Date Barbie Krueger MD [address] [place] [address] PCP - General 09/22/19 documented as of this encounter
--- OUTSIDE RECORDS SUMMARY | 2025-02-18 17:06 | XMS_ITS | Encounter Summary ---
Author Organization [facility], Address [address] [place] [address] Phone Care Team Providers Care Prepress Proofer Name Role Phone Barbie Krueger MD Primary Care Prov ider Encounter Details Date Type Department Care Team (Late st Contact Info) Description 10/07/2024 Documentation Only [facility], [address] [place] [address] Amberly Mensah [address] [place] [phone] Social History Tobacco Use Types Packs/Day Years [...] on filedocumented in this encounter Care Teams Prepress Proofer Relationship Specialty Start Date End Date Barbie Krueger MD [address] [place] [phone] PCP - General 09/22/19 documented as of this encounter
--- OUTSIDE RECORDS SUMMARY | 2025-02-18 17:06 | XMS_ITS | Encounter Summary ---
Author Organization [facility], Address [address] [place] [address] Phone Care Team Providers Care Internal Audit Director Name Role Phone Barbie Krueger MD Primary Care Prov ider Encounter Details Date Type Department Care Team (Late st Contact Info) Description 10/07/2024 Documentation Only [facility], [address] [place] [address] Amberly Mensah [address] [place] [phone] Social History Tobacco Use Types Packs/Day Years [...] on filedocumented in this encounter Care Teams Internal Audit Director Relationship Specialty Start Date End Date Barbie Krueger MD [address] [place] [address] PCP - General 09/22/19 documented as of this encounter
--- OUTSIDE RECORDS SUMMARY | 2025-02-18 17:06 | XMS_ITS | Encounter Summary ---
Author Organization [facility], Address [address] [place] [address] Phone Care Team Providers Care Epidemiologist Name Role Phone Barbie Krueger MD Primary Care Prov ider Encounter Details Date Type Department Care Team (Late st Contact Info) Description 10/07/2024 Documentation Only [facility], [address] [place] [address] Amberly Mensah [address] [place] [phone] Social History Tobacco Use Types Packs/Day Years [...] on filedocumented in this encounter Care Teams Epidemiologist Relationship Specialty Start Date End Date Barbie Krueger MD [address] [place] [address] PCP - General 09/22/19 documented as of this encounter
--- OUTSIDE RECORDS SUMMARY | 2025-02-18 17:06 | XMS_ITS | Encounter Summary ---
Author Organization [facility], Address [address] [place] [address] Phone Care Team Providers Care Vocational Adviser Name Role Phone Barbie Krueger MD Primary Care Prov ider Encounter Details Date Type Department Care Team (Late st Contact Info) Description 10/07/2024 Documentation Only [facility], [address] [place] [address] Amberly Mensah [address] [place] [phone] Social History Tobacco Use Types Packs/Day Years [...] on filedocumented in this encounter Care Teams Vocational Adviser Relationship Specialty Start Date End Date Barbie Krueger MD [address] [place] [address] PCP - General 09/22/19 documented as of this encounter
--- OUTSIDE RECORDS SUMMARY | 2025-02-18 17:06 | XMS_ITS | Clinical Summary ---
Author Organization [employer] [facility] Address [address] [address] [place] [address] Care Team Providers Care Cma Or Lpn Name Role Phone Unavailable Primary Care Provider Unavailabl e Encounters Date Type Department Care Team Description 12/18/2024 Orders Only [facility] External Provider, [facility] from Last 3 Months Social History [...] Blood Count 12.9(H) 4.8 - 10.8 X10*3/uL [facility] Red Blood Count 4.60 4.20 - 5.50 X10*6/uL [facility] Hemoglobin 11.8(L) 12.0 - 16.0 g/dl [facility] Hematocrit 38.7 37.0 - 47.0 % [facility] Mean Corpuscular Volume 84.1 80.0 - 98.0 fL [facility] Mean Corpuscular Hemoglobin 25.7(L) 27.0 - 33.0 pg [facility] Mean Corpuscular HGB Conc 30.5(L) 31.0 - 35.0 g/dl [facility] Red Cell Distribution Width 13.5 11.0 - 16.0 % [facility] Platelet Count 174 160 - 400 X10*3/uL [facility] Mean Platelet Volume 9.0(L) 9.4 - 12.3 fL [facility] Neutrophils Percent Auto 67.7 45 - 73 % [facility] Imm Gran Pct Auto 0.6(H) 0.0 - 0.4 % [facility] Lymphocytes Percent Auto 14.6(L) 20 - 40 % [facility] Monocytes Percent Auto 10.2 2 - 11 % [facility] Eosinophils Percent Auto 6.3(H) 0 - 4 % [facility] Basophils Percent Auto 0.6 0 - 2 % [facility] NRBC Pct Auto 0.0 0.0 - 0.2 /100WBC [facility] Neutrophils Absolute Auto 8.7(H) 2.0 - 8.3 x10*3/uL [facility] Imm Gran Abs Auto 0.08(H) 0.00 - 0.03 X10*3/uL [facility] Lymphocytes Absolute Auto 1.9 1.2 - 4.9 X10*3/uL [facility] Monocytes Absolute Auto 1.3(H) 0.1 - 1.2 X10*3/uL [facility] Eosinophils Absolute Auto 0.8(H) 0.0 - 0.4 X10*3/uL [facility] Basophils Absolute Auto 0.1 0.0 - 0.2 X10*3/uL [facility] NRBC Abs Auto 0.000 0.0 - 0.012 X10*3/uL [facility] 12/18/2024 5:01 AM EST 12/18/2024 5:08 AM EST us Generic External Data Provider LAB BLOOD ORDERAB LES Final Result [facility] [address] [place] [address] [phone] * Lactic Acid (12/18/2024 5:01 AM EST) Lactic Acid 0.9 0.5 - 2.0 mmol/L [facility] 12/18/2024 5:01 AM EST 12/18/2024 5:08 AM EST us Generic External Data Provider LAB BLOOD ORDERAB LES Final Result [facility] [address] [place] [address] [phone] * (ABNORMAL) Comprehensive Metabolic Panel (12/18/2024 5:01 AM EST) Sodium 142 135 - 145 mmol/L [facility] Potassium 4.2 3.3 - 5.1 mmol/L [facility] Chloride 105 96 - 108 mmol/L [facility] Carbon Dioxide 28 22 - 29 mmol/L [facility] Anion Gap 13 12 - 20 [facility] Urea Nitrogen (BUN) 19(H) 9 - 16 mg/dL [facility] Creatinine, Serum 0.75 0.5 - 1.4 mg/dL [facility] Creatinine Clr Calc Pharmacy 70.0 [facility] Comment:Provided height and weight: 154.94 cm,56.699 kg.eGFR (calculated from the MDRD study equation) and eCrCl(calculated from the Cockcroft-Gault equation) are based ondifferent parameters and may not yield comparable results.If eCrCl result is absurd, please check patient'sheight/weight. Estimated Glomerular Filt Rate >60 [facility] Comment:Chronic Kidney Disea se: Estimated GFR < 60 mL/min/1.72c2Dziyit Kidney Disease: Estimated GFR < 15 mL/min/1.73m2 Glucose 90 60 - 115 mg/dL [facility] Calcium 9.6 8.4 - 10.2 mg/dL [facility] Bilirubin, Total 0.2 0.0 - 1.0 mg/dL [facility] Aspartate Amino Transferase 77(H) 5 - 31 U/L [facility] Alanine Aminotransferase 37(H) 0 - 31 U/L [facility] Total Protein 6.6 6.5 - 8.0 g/dL [facility] Albumin Level 3.6 3.5 - 5.0 g/dL [facility] Alkaline Phosphatase 192(H) 39 - 117 U/L [facility] 12/18/2024 5:01 AM EST 12/18/2024 5:08 AM EST us Generic External Data Provider LAB BLOOD ORDERAB LES Final Result Performing Organization Address City/[facility]/ZIP Co de Phone Number [facility] [address] [place] [address] [phone] * SARS-CoV-2 RNA, Influenza A/B, and RSV RNA, Ql NAAT (12/18/2024 4:54 AM EST) Influenza A PCR NEGATIVE Negative [facility] Influenza B PCR NEGATIVE Negative [facility] Resp Syncy Virus RNA Qual PCR NEGATIVE Negative [facility] SARS COV2 PCR NEGATIVE Negative [facility] Comment:All test results mus [...] use by authorized laboratories.Testing performed on the [employer] GeneXpert utilizingreal-time RT-PCR.All SARS CoV2 and positive influenza A/B results arereported to [facility]. 12/18/2024 4:54 AM EST 12/18/2024 5:08 AM EST us Generic External Data Provider LAB MICROBIOLOGY - GENERAL ORDERABLES Final Result Performing Organization Address City/[facility]/ZIP Co de Phone Number [facility] [address] [place] [address] [phone] * XR Chest 1 View (12/18/2024 4:39 AM EST) Anatomical Region Laterality Modality Chest Radiographic Angelia ging 12/18/2024 4:39 AM EST Narrative 12/18/2024 4:41 AM EST ? [facility] ?[address] ?[place] [address] ?XRay Report ? Signed ? Patient: Rea,Meiliana M ?MR#: [id number] ?? [id number] ? : 1975 ?Acct:[id number] ? Age/Sex: 49 / F ?ADM Date: 12/18/24 ? Loc: HO.ED ? Attending Dr: ? Ordering Physician: Generic ED Physician ?? Date of Service: 12/18/24 ?? Procedure(s): XR chest 1V ?? Accession Number(s): [id number] ? cc: Generic ED Physician; [facility] ? CLINICAL HISTORY: cough ? 1 [...] 0439 ? TD/TT: 12/18/24 0439 ? Director [employer]: ? Procedure Note Vj, Sushant - 12/18/[address] [address] XRay Report Signed Patient: Emiliana Rea [facility]#: [id number] : 1975Acct:[id number] Age/Sex: 49 / FADM Date: 12/18/24 Loc: HO.ED Attending Dr: Ordering Physician: Generic ED Physician Date of Service: 12/18/24 Procedure(s): XR chest 1V Accession Number(s): [id number] cc: Generic ED Physician; [facility] CLINICAL HISTORY: cough 1 view chest [...] OV> 12/18/24 0441 DD/ TD/TT: 12/18/24438 Director [employer]: [facility] External Provider IMG XR PROCEDURES Edited Result - Final from Last 3 Months
--- OUTSIDE RECORDS SUMMARY | 2025-02-18 17:06 | XMS_ITS | Encounter Summary ---
Author Organization [facility], Address [address] [place] [address] Phone Care Team Providers Care Mobile Home Technician Name Role Phone Barbie Krueger MD Primary Care Prov ider Encounter Details Date Type Department Care Team (Late st Contact Info) Description 10/07/2024 Documentation Only [facility], [address] [place] [address] Amberly Mensah [address] [place] [phone] Social History Tobacco Use Types Packs/Day Years [...] on filedocumented in this encounter Care Teams Mobile Home Technician Relationship Specialty Start Date End Date Barbie Krueger MD [address] [place] [address] PCP - General 09/22/19 documented as of this encounter
--- OUTSIDE RECORDS SUMMARY | 2025-02-18 17:06 | XMS_ITS | Encounter Summary ---
Author Organization [facility] [place], Address [address] [place] [address] Phone Care Team Providers Care Director Clinical Research Name Role Phone Barbie Krueger MD Primary Care Prov ider Encounter Details Date Type Department Care Team (Late st Contact Info) Description 10/07/2024 Documentation Only [facility], [address] [place] [address] Amberly Mensah [address] [place] [phone] Social History Tobacco Use Types Packs/Day Years [...] filedocumented in this encounter Care Teams Director Clinical Research Relationship Specialty Start Date End Date Barbie Krueger MD [address] [place] [address] PCP - General 09/22/19 documented as of this encounter
== END 2025-02-18 16:45 | disposition home or self-care (01) ==
LOC: HO.RHE 16:04
PROVIDERS: Visit Provider Student in an Organized Health Care Education/Training Program
DX: M32.9 Systemic lupus erythematosus, unspecified (principal); Z51.81 Encounter for therapeutic drug level monitoring; Z79.899 Other long term (current) drug therapy; Z79.52 Long term (current) use of systemic steroids
CPT/HCPCS: 99215

== ENCOUNTER 2025-02-19 14:08 | Outpatient (REF) | payer OTHER, SELFPAY ==
--- OUTSIDE RECORDS SUMMARY | 2025-02-19 15:52 | XMS_ITS | Data Portability ---
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 [employer] OTHER BARBIE PRICE Primary Care Provide r [facility] OTHER CORRINA MINOR OTHER ART MADSEN OTHER YOSELIN ZHENG OTHER BETSY RAMSEY Sports Medicine [facility] (OVIDIO BELL) Orthopedist [facility] Flying Instructor [phone] Assessment Encounter Date Assessment Date Assessment LastModified by Organization Details LastModified Time 03/29/2023 03/29/2023 Patient agreed t o this visit via a secure telehealth platform. Patient understands this is a scheduled visit and the usual procedures with regard to billing and confidentiality apply. Patient was notified that the provider location is [facility] Patient location: home During the visit the patient? s medical history and medical record were reviewed. The patient was notified to call our office for worsening or urgent symptoms. Not available 03/29/2023 16:43:35 08/14/2023 08/14/2023 weightbearing X-rays of the right knee were independently interpreted demonstrating severe lateral compartment and mild PF OA Not available 08/14/2023 15:38:15 02/05/2024 02/05/2024 weightbearing X-rays of the right knee were independently interpreted demonstrating severe lateral compartment and mild PF OA Not available 02/05/2024 15:59:55 Plan of Treatment Reminders Order Date Submit Date Provider Last Modified By Organization Details Last Modified Time Details Appointments None recorded. Lab cell count w/ diff, synovial fluid 2023 024 [facility], [address] [place], [address], 4 09:21:00 culture, synovial fluid [facility] [address] [place], [address], 4 14:48:48 C diff screen, stool, reflex PCR 2022 023 [facility] (Lab), [address] [place] [address], [address], 3 11:13:30 Referral None recorded. Procedures None recorded. Surgeries None recorded. Imaging US, guidance 2023 [email or web address] [place] [address] (Imaging), [address], [place], [address], 4 20:05:30 US, guidance 2022 [email or web address] [place] [address] (Imaging), [address] [place], [address], 3 16:11:13 MAMMO, screening , tomosynth esis, bilateral [address], [address], 3 10:31:39 Medication Orders sulfasala zine 500 mg tablet 2022 023 [facility] #[id number], [address] [place], [place], [id number], 3 15:49:57 folic acid 1 mg tablet 2022 023 [facility] #[id number], [address] [place], [place], [id number], 3 15:49:59 tramadol 50 mg tablet 2022 023 [facility] #[id number], [address] [place], [place], [id number], 3 16:14:59 albuterol sulfate 2.5 mg/3 mL (0.083 %) solution for nebulizat ion 2022 023 [facility] #[id number], [address] [place], [place], [id number], 3 16:32:57 oxycodone 5 mg tablet 2022 023 [email or web address] [facility] #[id number], [address], [place], [id number], 3 15:27:10 Patient TargetsNo targets recorded. Patient Instructions Encounter Date Encounter Id Patient Instructions Last Modified By Organization Details Last Modified Time 01/23/2023 [id number] I am aware of e inpatient facility discharge medications, the medication list above has been reconciled with those medications and reflects my understanding of an up to date medication list for this patient. CCM: The provider and patient discussed the Chronic Care Management program, including the services provided, and any fees associated with them. 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 [email or web address] Not available 03/29/2023 15:51:44 05/23/2023 [id number] After a discussion of treatment and medication options, which included consideration of the best practices in medicine, a medical plan was provided. The patient's opinions and concerns were included in this treatment plan and goal. New medication was discussed with patient including risks, benefits ,possible and expected side effects. Patient understands and is willing to begin medication as prescribed. 1. refilled meds 2. lab and ultrasound at [facility] already closed, pt will go to [facility] ED tonight due to onset of consistent swelling and pain of her left lower leg. 3. I sent labs to [facility] for her TSH and cholesterol 4. will ask staff to reschedule wellness 5. order for mammogram sent to [facility] 6. pending appt with rn outpatient surgery at [facility], meds refilled [email or web address] Not available 05/23/2023 21:12:49 08/14/2023 [id number] Rest and ice for the next week Follow-up as needed for further care Seek immediate attention for any redness, fevers, chills, worsening or severe pain, or any other concerning symptoms. Not available 08/14/2023 16:03:57 All of the patients questions were answered and they understand the plan of care. Thank you for allowing me to participate in the care of your patient. ? ? ?Please feel free to contact me with any questions regarding their care. Not available 08/14/2023 16:04:01 02/05/2024 [id number] Rest and ice for the next week Consider seeing the surgeon again to talk about knee replacement Follow-up as needed for further care Seek immediate attention for any redness, fevers, chills, worsening or severe pain, or any other concerning symptoms. Not available 02/05/2024 16:31:42 All of the patients questions were answered and they understand the plan of care. Thank you for allowing me to participate in the care of your patient. ? ? ?Please feel free to contact me with any questions regarding their care. Not available 02/05/2024 16:31:28 Reason for Referral None Reported. Results Created Date Observation Date Name Description Value Unit Range Abnormal Flag Note LastModifiedBy Organization Detail LastModifiedTime 02/06/20 24 02/06/2024 SYNOV IAL FLUID NEAL SIS fluid color MILKY pale yellow Not Available [address], [address], 02/06/2024 09:21:00 02/06/20 24 02/06/2024 SYNOV IAL FLUID NEAL SIS fluid clarity CLOUDY clear Not Available [address], [address], 02/06/2024 09:21:00 02/06/20 24 02/06/2024 SYNOV IAL FLUID NEAL SIS fluid viscosity HIGH high Not Available [address], [address], 02/06/2024 09:21:00 02/06/20 24 02/06/2024 SYNOV IAL FLUID NEAL SIS fluid crystals NONE SEEN none seen Not Available [address], [address], 02/06/2024 09:21:00 02/06/20 24 02/06/2024 SYNOV IAL FLUID NEAL SIS WBC-bf count 55233 cells /uL 0-200 high Not Available [address], [address], 02/06/2024 09:21:00 02/06/20 24 02/06/2024 SYNOV IAL FLUID NEAL SIS RBC-bf count 3000 cells /uL 0-1000 0 Not Available [address], [address], 02/06/2024 09:21:00 02/06/20 24 02/06/2024 SYNOV IAL FLUID NEAL SIS MN% 9.0 % 0.0-75 .0 Not Available [address], [address], 02/06/2024 09:21:00 02/06/20 24 02/06/2024 SYNOV IAL FLUID NEAL SIS PMN% 91.0 % 0.0-25 .0 high Not Available [address], [address], 02/06/2024 09:21:00 02/06/20 24 02/06/2024 SYNOV IAL FLUID NEAL SIS TC-bf absolute 33548 cells /uL Not Available [facility] [address] [place] [address], [address], 02/06/2024 09:21:00 02/06/20 24 02/13/2024 CULTU RE, AEROB IC AND ANAER OBIC W/GRA M STAIN culture, anaerobic bacteria w/gram stain CULTU RE, ANAER OBIC BACTE MARTHA W/GRA M STAIN Micro Numbe r: [id number] Test Statu s: Final Speci men Sourc e: Fluid , synov ial Speci men Quali ty: Adequ ate Gram Stain : No organ isms or white blood cells seen No epith elial cells seen Resul t: No anaer obes isola henrry. Not Available [facility] [address], [address], 02/13/2024 11:33:25 02/06/20 24 02/13/2024 CULTU RE, AEROB IC AND ANAER OBIC W/GRA M STAIN culture, aerobic bacteria CULTU RE, AEROB IC BACTE MARTHA Micro Numbe r: [id number] Test Statu s: Final Speci men Sourc e: Fluid , synov ial Speci men Quali ty: Adequ ate Resul t: No Growt h Not Available [facility] [address], [address], 02/13/2024 11:33:25 07/15/20 23 06/25/2023 MAMMO jesi No observ ation record ed. remedios [address] [place], [address], 2023 12:27:10 07/16/20 23 06/25/2023 MAMMO jesi No observ ation record ed. [email or web address] [address] [place], [address], 01/01/2024 14:02:38 08/01/20 23 07/31/2023 XR, chest No observ ation record ed. [email or web address] [facility] (Medical Records) [address] [place], [address], 08/01/2023 09:47:27 10/26/20 23 10/26/2023 US, johnathan lenz, claudetteou s, lower extre mity No observ ation record ed. [facility] [address] [place] [address], [address], 10/28/2023 06:47:59 10/26/2010/26/2023 XR, chest No observ ation record ed. [address], [address], 10/26/2023 19:53:56 10/26/20 23 10/26/2023 XR, foot No observ ation record ed. [facility] [address] [place], [address], 10/26/2023 19:53:57 10/27/20 23 10/27/2023 US, johnathan lenz, arter ial, extre mity No observ ation record ed. [facility] [address] [place], [address], 10/28/2023 06:47:59 10/27/20 23 10/27/2023 MRI, foot No observ ation record ed. [facility] [address] [place], [address], 10/28/2023 06:48:00 03/06/20 24 03/04/2024 DEXA, axial skele ton No observ ation record ed. [facility] [address] [place], [address], 03/11/2024 11:46:57 04/24/20 24 04/24/2024 XR, chest No observ ation record ed. [facility] [address] [place], [address], 04/24/2024 20:01:53 04/24/20 24 04/24/2024 CT, abdom en + pelvi s No observ ation record ed. [facility] [address] [place], [address], 04/24/2024 20:01:53 04/24/20 24 04/24/2024 CT, chest No observ ation record ed. [facility] [address] [place], [address], 04/25/2024 21:23:51 04/25/20 24 04/24/2024 US, duple x, venou s, lower extre mity No observ ation record ed. [facility] [address] [place], [address], 04/25/2024 21:23:52 05/22/20 24 05/22/2024 US, angelesle x, venou s, lower extre mity No observ ation record ed. [facility] [address] [place], [address], 05/27/2024 14:14:00 05/23/20 24 05/23/2024 XR, chest No observ ation record ed. [facility] [address] [place], [address], 05/27/2024 14:14:00 06/13/20 24 06/13/2024 XR, chest No observ ation record ed. ramin [facility] [address] [facility], [place], [address], 06/14/2024 10:57:34 Result Notes None recorded. Problems Name Problem SNOMED Code Status Onset Date Resolution Date Notes Provider Name and Address Organization Details Recorded Time Chronic glomerul onephrit is 76571680 Completed 02/05/2022 Cherelle Green PA-C [address] [place] [address] [place], [address], [facility] 15:35:31 Arthriti s 5485642 Active Barbie Brown MD [address] [place] [address] [place], [address], [facility] 10:18:49 Primary fibromya lgia syndrome 22112143 Active Cari Mendoza CMA null, [facility] 6 16:54:49 Rheumato id arthriti s 54705588 Active Barbie Brown MD [address] [place] [address] [place], [address], [facility] 20:13:43 Anxiety 14720612 Active Barbie Brown MD [address] [place], [place] [address], [address], [facility] 6 16:05:06 Systemic lupus erythema tosus [id number] Crystal Brown MD [address] [place] [address] [place], [address], [facility] 16:05:06 Cerebral artery occlusio n 07564929 Active Barbie Brown MD [address] [place] [address] [place], [address], [facility] 16:05:06 Major depressi ve disorder 359615124 Active Barbie Brown MD [address] [place] [address] [place], [address], [facility] 13:38:34 Asthmati c bronchit is 627317898 Active Barbie Brown MD [address] [place] [address], [place], [place], [address], [facility] 6 10:18:49 Hypothyr oidism 90770490 Active Barbie Brown MD [address] [place] [address], [place], [place], [address], [facility] 6 20:13:43 Acute non-ST segment elevatio n myocardi al infarcti on 944065379 Completed 02/05/2022 Cherelle Green PA-C [address] [place] [address], [place], [place], [address], [facility] 15:37:24 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 37380511 Active 2016 Barbie Brown MD [address] [place] [address], [place]wig, [place], [address], [facility] 19:25:01 Long-ter m current use of anticoag ulant 268709173 Active 2019 Anjana Franco NP [address] [place] [address], [place]wig, [place], [address], [facility] 12:39:26 Case manageme nt Active 2021 [facility]- Hollie Bennett RN null, [facility] 2 17:30:01 Asthma 979436014 Active 2021 Cherelle Green PA-C [address] [place] [address] [place], [place], [address], [facility] 15:35:42 Chronic obstruct mayo pulmonar y disease 71334532 Active 202112/30/2022 - significa nt copd steriod dependent . Hollie Bennett RN null, [facility] 3 12:31:19 History of cerebrov ascular accident 241634428 Active 2021 Cherelle Green PA-C [address] [place] [address] [place], [place], [address], [facility] 15:36:19 Coronary arterios clerosis 14403058 Active 2021 hx NSTEMI Cherelle Green PA-C [address] [place] [address] [place], [address], [facility] 15:37:22 History of myocardi al infarcti on 875695584 Active 2021 Cherelle Green PA-C [address] [place] [address] [place], [address], [facility] 15:37:31 Obstruct mayo sleep apnea syndrome 55066509 Active 2021 Cherelle Green PA-C [address] [place] [address] [place], [address], [facility] 15:37:36 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 Cherelle Green PA-C [address] [place] [address] [place], [address], [facility] 15:38:46 Long-ter m oxygen therapy Active 2021 3.5L continuou s oxygen 01/2022 Cherelle Green PA-C [address] [place] [address] [place], [address], [facility] 15:44:33 Charcot' s joint of foot 598474253 Active 2021 Hollie Bennett RN null, [facility] 2 10:46:32 Charcot' s joint of foot 673320433 Active 2021 Cherelle Green PA-C [address] [place] [address] [place], [address], [facility] 14:57:07 Tobacco user 994293682 Active 2022 per 12/30/2022 [facility] Hollie Bennett RN null, [facility] 3 12:30:29 Clostrid ium difficil e colitis 640637129 Active 2023 [facility] discharge summary Ladi Reddy RN null, [facility] 4 17:13:40 Acute hypoxemi c respirat ory failure 749585367 Active 2023 Per [facility] discharge summary 06/16/24 Keyla Mcduffie RN null, [facility] 4 15:26:30 Cellulit is of lower limb 742365533 Active 2023 of BLE- Per [facility] discharge summary 06/16/24 Keyla Mcduffie RN null, [facility] 4 15:27:43 Notes:INR range 2-3 Problem Notes None recorded. Procedures Surgical History Date Name Laterality Status Provider Name and Address Organization Details Recorded Time 06/12/20 24 Post hospital/SNF follow-up/Transiti onal Care cancelled Lavinia Jeff [place] [facility] 06/12/2024 14:59:39 05/07/20 24 Post hospital/SNF follow-up/Transiti onal Care cancelled Joy Wei [place] [facility] 05/07/2024 10:48:20 02/05/20 24 US Guided Knee Joint Injection completed Betsy Ramsey MD [address] [place] [address], [address], [facility] 02/05/2024 16:39:14 01/03/20 24 Medicare Wellness Visit cancelled Joy Wei [place] [facility] 08/12/2023 10:14:33 01/03/20 24 Asthma Control Test (12 + years old) cancelled Joy Wei [place] [facility] 08/12/2023 10:15:06 08/14/20 23 Smoking cessation counseling completed Ofelia Valerio [facility] 08/14/2023 15:20:13 08/14/20 23 US Guided Knee Joint Injection completed Betsy Ramsey MD [address] [place] [address], [address], [facility] 08/14/2023 16:04:23 05/23/20 23 Smoking cessation counseling completed Joy Wei [place] [facility] 05/23/2023 10:47:30 05/23/20 23 Asthma Control Test (12 + years old) completed Joy Wei [place] [facility] 05/23/2023 10:46:43 05/23/20 23 Medicare Annual Wellness Visit completed Joy Wei [place] [facility] 05/23/2023 10:46:30 03/29/20 23 Smoking cessation counseling completed Kamilah Scott [facility] 03/29/2023 15:56:03 03/29/20 23 Post hospital/SNF follow-up/Transiti onal Care completed Kamilah Scott [facility] 03/29/2023 15:51:44 02/21/20 23 repair of tendo achilles completed Berta Cody RN [facility] 03/26/2023 15:26:16 01/24/20 23 Smoking cessation counseling completed Esperanza hairston Huan [facility] 01/23/2023 16:22:01 01/24/20 23 Post hospital/SNF follow-up/Transiti onal Care completed Esperanza hairston [facility] 01/23/2023 15:27:35 01/09/20 23 Post hospital/SNF follow-up/Transiti onal Care cancelled Jeimy Iglesias [place] [facility] 01/09/2023 10:17:39 11/23/19 23 Smoking cessation counseling completed Jeimy Iglesias [facility] 11/23/2022 14:23:09 10/17/20 22 US Guided Knee Joint Injection completed Betsy Ramsey MD [address] [place] [address], [address] 10/17/2022 15:50:36 08/24/20 22 Alcohol use screening completed Joy Wei [facility] 08/24/2022 08:53:35 08/24/20 22 Cardiovascular disease risk reduction counseling completed Joy Wei [place] [facility] 08/24/2022 08:53:35 08/24/20 22 Asthma Control Test (12 + years old) completed Joy Wei [place] [facility] 08/24/2022 15:37:08 07/16/20 22 US Guided Knee Joint Injection completed Betsy Ramsey MD [address] [place] [address], [address], [facility] 07/16/2022 16:29:14 06/05/20 22 Post hospital/SNF follow-up/Transiti onal Care cancelled Joy Wei [place] [facility] 06/04/2022 10:17:59 02/23/20 22 Smoking cessation counseling cancelled Joy Wei [facility] 02/22/2022 08:56:15 01/19/20 22 Post hospital/SNF follow-up/Transiti onal Care completed Molly Maier [facility] 01/18/2022 10:51:46 11/08/20 21 Smoking cessation counseling cancelled Ariadne Kumar [facility] 11/06/2021 11:46:47 11/08/20 21 Post hospital/SNF follow-up/Transiti onal Care cancelled Ariadne Kumar [facility] 11/06/2021 11:46:05 10/19/20 21 Alcohol use screening cancelled Luiza Potts [facility] 10/18/2021 15:24:01 10/19/20 21 Cardiovascular disease risk reduction counseling cancelled Luiza Potts [facility] 10/18/2021 15:24:01 10/19/20 21 Medicare Annual Wellness Visit cancelled Luiza Potts [facility] 10/18/2021 15:24:01 10/10/20 21 Smoking cessation counseling completed Audra Bowers [facility] 10/10/2021 14:26:19 10/04/20 21 Smoking cessation counseling completed Betsy Ramsey MD [address] [place] [address], [address], [facility] 10/04/2021 15:24:08 10/04/20 21 Generic Procedure Template completed Betsy Ramsye MD [address] [place] [address], [address], [facility] 10/04/2021 16:43:53 09/26/20 21 Smoking cessation counseling completed Betsy Ramsey MD [address] [place] [address], [address], [facility] 09/26/2021 15:32:11 09/26/20 21 US Guided Knee Joint Injection completed Betsy Ramsey MD [address] [place] [address], [address], [facility] 09/26/2021 16:15:09 05/18/20 21 Smoking cessation counseling completed Joy Wei [facility] 05/11/2021 12:06:17 03/24/20 21 Smoking cessation counseling completed RADHA Denton [address] [place] [address], [address], [facility] 03/24/2021 13:53:21 02/14/20 21 Smoking cessation counseling completed Audra Bowers [facility] 02/08/2021 10:00:21 02/10/20 21 Smoking cessation counseling cancelled Jesenia Rea [facility] 02/08/2021 15:46:59 02/08/20 21 Smoking cessation counseling completed RADHA Denton [address] [place] [address], [address], [facility] 02/07/2021 14:51:33 01/10/20 21 Smoking cessation counseling completed Heavenly Adame [facility] 01/10/2021 08:08:58 01/10/20 21 Carbon Monoxide Testing completed Heavenly Adame [facility] 01/10/2021 08:08:58 11/16/20 20 Smoking cessation counseling completed Cherelle Green PA-C [address] [place] [address], [address], [facility] 11/16/2020 15:51:07 11/07/20 20 Smoking cessation counseling completed Barbie Brown MD [address] [place] [address], [address], [facility] 11/13/2020 08:29:28 11/07/20 20 [facility] 16:05:25 11/07/20 20 Asthma Control Test (12 + years old) [facility] 16:12:43 09/16/20 20 Post hospital/SNF follow-up/Transiti onal Care completed [facility] 09/16/2020 13:45:15 08/18/20 20 Telephonic Visit completed [facility] 08/18/2020 14:57:58 07/29/20 20 Smoking cessation counseling completed [facility] 07/29/2020 16:02:54 07/29/20 20 Carbon Monoxide Testing completed [facility] 07/29/2020 16:02:54 07/13/20 20 Smoking cessation counseling completed Anjana Franco NP [address] [place] [address], [address], [facility] 07/14/2020 12:35:44 07/13/20 20 Carbon Monoxide Testing completed Mehran Norris [facility] 07/13/2020 08:38:32 06/10/20 20 Smoking cessation counseling completed Heavenly Adame [facility] 06/10/2020 10:17:30 05/13/20 20 Smoking cessation counseling completed Heavenly Adame [facility] 05/13/2020 15:35:02 03/21/20 20 Smoking cessation counseling completed [facility] 03/21/2020 07:42:58 03/21/20 20 Carbon Monoxide Testing completed [facility] 03/21/2020 07:42:58 08/28/20 19 Smoking cessation counseling completed [facility] 08/28/2019 12:31:20 08/28/20 19 Asthma Control Test (12 + years old) completed [facility] 08/28/2019 12:40:28 05/28/20 19 Smoking cessation counseling completed Roxana Velázquez [facility] 05/28/2019 13:48:27 05/28/20 19 Carbon Monoxide Testing completed Roxana Velázquez [facility] 05/28/2019 13:48:27 04/17/20 19 Smoking cessation counseling completed Kamilah Abreu [facility] 04/17/2019 17:32:11 04/17/20 19 Nebulizer Tx completed Cherelle Green PA-C [address] [place] [address], [address], [facility] 04/20/2019 10:10:02 04/17/20 19 POC Coag Testing cancelled La Gr RN, BSN [facility] 04/17/2019 11:47:28 02/25/20 19 Medicare Annual Wellness Visit completed Vil[facility] Malone [facility] [facility] 02/24/2019 12:11:01 11/06/20 18 Smoking cessation counseling completed Bhavya Poole [facility] 11/06/2018 12:44:38 11/06/20 18 Carbon Monoxide Testing completed Bhavya Poole [facility] 11/06/2018 12:44:38 05/16/20 18 Smoking cessation counseling completed Tish Lopez [facility] 05/16/2018 15:46:52 05/16/20 18 POC Coag Testing completed Tish Lopez [facility] 05/16/2018 15:48:24 02/14/20 18 Smoking cessation counseling completed Vilma Malone [facility] 02/13/2018 15:17:35 02/14/20 18 Carbon Monoxide Testing completed Vilma Malone [facility] 02/13/2018 15:17:35 02/14/20 18 POC Coag Testing completed ERIKA Montoya [facility] 02/13/2018 15:46:49 02/14/20 18 Medicare Annual Wellness Visit completed Vilma Malone [facility] 02/13/2018 15:09:24 12/12/19 18 Smoking cessation counseling completed Filomena Gomez [facility] 12/12/2017 13:26:57 12/12/19 18 Carbon Monoxide Testing completed Filomena Gomez [facility] 12/12/2017 13:34:59 11/28/19 18 Smoking cessation counseling completed Vilma Malone [facility] 11/28/2017 10:54:53 11/28/19 18 Post hospital/SNF follow-up/Transiti onal Care completed Vilma Malone [facility] 11/28/2017 10:52:35 11/28/19 18 Carbon Monoxide Testing completed Vilma Malone [facility] 11/28/2017 10:54:53 11/28/19 18 POC Coag Testing completed [place], [facility] 11/28/2017 11:38:26 10/14/20 17 Smoking cessation counseling completed Vilma Malone [facility] 10/14/2017 14:46:31 06/21/20 17 Smoking cessation counseling completed Suzan Kaba [facility] 06/21/2017 13:50:28 06/21/20 17 Carbon Monoxide Testing completed Suzan Kaba [facility] 06/21/2017 13:50:28 02/08/20 17 Smoking cessation counseling completed Vilmamayte Malone [facility] 02/07/2017 13:36:40 01/10/20 17 Smoking cessation counseling completed Vilma Malone [facility] 01/10/2017 11:21:48 01/10/20 17 Medicare Wellness Visit completed Vilma Malone [facility] 01/10/2017 11:12:18 01/10/20 17 Carbon Monoxide Testing completed Vilma Malone [facility] 01/10/2017 11:28:18 01/10/20 17 POC Coag Testing completed Ally Carl RN [facility] 01/10/2017 12:09:25 01/09/20 17 Smoking cessation counseling completed Phyllis Headley [facility] 01/09/2017 17:13:16 01/09/20 17 POC Urinalysis Testing completed Phyllis Headley [facility] 01/09/2017 17:05:05 10/02/20 16 Smoking cessation counseling completed Vilma Malone [facility] 10/02/2016 13:41:45 10/02/20 16 Carbon Monoxide Testing completed Barbie Brown MD [address] [place] [address], [id number], [facility] 10/02/2016 14:20:48 05/16/20 16 POC Coag Testing completed Luiza Urbano LPN [facility] 05/16/2016 16:20:56 12/05/19 16 Smoking cessation counseling completed Vilma Malone [facility] 12/05/2015 09:28:24 03/28/20 15 Smoking cessation counseling completed Vilma Malone [facility] 03/28/2015 13:40:10 12/03/19 15 Smoking cessation counseling completed Vilma Malone [facility] 12/03/2014 11:00:56 11/15/20 14 Other (specify) completed Barbie Brown MD [address] [place] [address], [id number], [facility] 11/23/2014 20:51:42 11/05/20 14 Smoking cessation counseling completed Vilma Malone [facility] 11/05/2014 13:51:03 10/25/20 14 Smoking cessation counseling completed Vilma Malone [facility] 10/25/2014 10:47:53 07/16/20 14 Smoking cessation counseling completed Vilma Malone [facility] 07/16/2014 09:21:13 05/17/20 14 Smoking cessation counseling completed Mikayla Harley LPN [facility] 05/17/2014 12:25:19 Imaging Results Imaging Date Name Status [facility] Details LastModified Time 06/25/2023 MAMMO, screening [place] [address] [place], [address], 2023 12:27:10 06/25/2023 MAMMO, screening [place] [address] [place], [address], 01/01/2024 14:02:38 07/31/2023 XR, chest completed [facility] (Medical Records) [address] [place], [address], 08/01/2023 09:47:27 10/26/2023 US, duplex, venous, lower extremity completed [address] [place], [address], 10/28/2023 06:47:59 10/26/2023 XR, chest completed [address] [place], [address], 10/26/2023 19:53:56 10/26/2023 XR, foot completed [address], [address], 10/26/2023 19:53:57 10/27/2023 US, duplex, arterial, extremity completed [address], [address], 10/28/2023 06:47:59 10/27/2023 MRI, foot completed [address], [address], 10/28/2023 06:48:00 03/04/2024 DEXA, axial skeleton completed [facility] [address] [place], [address], 03/11/2024 11:46:57 04/24/2024 XR, chest completed [address], [address], 04/24/2024 20:01:53 04/24/2024 CT, abdomen + pelvis completed [address], [address], 04/24/2024 20:01:53 04/24/2024 CT, chest completed [address], [address], 04/25/2024 21:23:51 04/24/2024 US, duplex, venous, lower extremity completed [facility] [address] [place], [address], 04/25/2024 21:23:52 05/22/2024 US, duplex, venous, lower extremity completed [facility] [address] [place], [address], 05/27/2024 14:14:00 05/23/2024 XR, chest completed [facility] [address] [place], [address], 05/27/2024 14:14:00 06/13/2024 XR, chest completed [facility] [address] [place], [address], 06/14/2024 10:57:34 Procedure Notes None recorded. Medical Equipment None Reported. Allergies Allergen ID Allergen Name Allergen Category Reaction Reaction Severity Criticality Documentation Date Start Date Code Code System Note Provider Name and Address Organization Details Recorded Time [id number] clarithro mycin medicatio n rash Not available Not available 04/15/2014 [facility] Not [facility] Medications Name Sig Start Date Stop Date Status Note LastModified by Organization Details LastModified Time fluoxetin e hcl 20 mg caps 11/16 completed Not Available Not Available Not Available nortripty line hydrochlo ride 50 mg caps 03/10 completed Pt using nortript yline 50mg cap 01/10/21 NMT Not Available Not Available Not Available methotrex ate 2.5 mg tabs 11/16 completed Not Available Not Available Not Available triamcino lone acetonide 0.1 % crea 11/16 completed Not Available Not Available Not Available lorazepam 1 mg tabs 11/16 completed Not Available Not Available Not Available bupropion hydrochlo ride er (sr) 100 mg tb12 11/16 completed Not Available Not Available Not Available hydroxych loroquine sulfate 200 mg tabs 11/16 completed Not Available Not Available Not Available pravastat in sodium 40 mg tabs 11/16 completed Not Available Not Available Not Available warfarin sodium 5 mg tabs 11/16 completed Not Available Not Available Not Available Prescript ion - New 11/22 completed Not Available Not Available Not Available Prescript ion - Prior Authormagdalenoa tion Request 02/05 completed Not Available Not Available Not Available oxycodone hydrochlo ride 15 mg tabs 11/16 completed Not Available Not Available Not Available compact space chamber/a nti-stati c romulo active Not Available Not Available Not Available prednison e 5 mg tabs 11/16 completed Not Available Not Available Not Available but/apap/ caf tab 11/16 completed Not Available Not Available Not Available Santyl 250 unit/gram topical ointment 01/11 completed not using xr Not Available Not Available Not Available amoxicill in 500 mg capsule Take 1 capsule 3 times a day by oral route for 7 days. active from dentist Not Available Not Available Not Available methocarb crystal 500 mg tablet active Not Available Not Available No t Available clotrimaz ole 10 mg raza DISSOLVE 1 LOZENGE BY MOUTH FIVE TIMES DAILY FOR 14 DAYS 01/11 completed done 05/18/2021 xr Not Available Not Available Not Available desonide 0.05 % topical cream APPLY SPARINGL Y AND RUB GENTLY INTO THE AFFECTED AREA(S) BY TOPICAL ROUTE 2 TIMES PER DAY 08/21 completed Not Available Not Available Not Available levothyro xine 175 mcg tablet TAKE 1 TABLET BY MOUTH EVERY DAY active Not Available Not Available No t Available levothyro xine 137 mcg tablet TAKE 1 TABLET BY MOUTH DAILY 06/21 completed needs a repeat TSH before more refills - I need to know if this dose is good Not Available Not Available Not Available nystatin 100,000 unit/mL oral suspensio n TAKE 5 ML BY MOUTH FOUR TIMES DAILY FOR FOURTEEN DAYS 08/28 completed Not Available Not Available Not Available prednison e 10 mg tablet tapered- dosingbe gining 3 take 40mg x 4 days; then 30mg x 4 days, then 20mg 4days, then 10mg x 4 days, then 5mg QD and maintain 02/16 completed new per 08/04/23 [facility] med dc list stopped 02/05/24 Not Available Not Available Not Available doxycycli ne hyclate 100 mg capsule Take 1 capsule twice a day by oral route for 5 days. active 10 tabs written for -Per [facility] discharg e summary 06/16, not verified with the patient Not Available Not Available Not Available nicotine 14 mg/24 hr daily transderm al patch APPLY 1 PATCH TOPICALL Y TO THE SKIN DAILY active Not Available Not Available No t Available sulfasala zine 500 mg tablet TAKE 1 TABLET BY MOUTH TWICE DAILY active Not Available Not Available No t Available clindamyc in HCl 300 mg capsule 02/24 completed Not Available Not Available Not Available albuterol sulfate 2.5 mg/3 mL (0.083 %) solution for nebulizat ion USE 1 AMPULE VIA NEBULIZE R EVERY 6 HOURS NEEDED active Not Available Not Available No t Available Tab-A-Vit e tablet TAKE 1 TABLET BY MOUTH EVERY DAY 01/11 completed Not taking Not Available Not Available Not Available Prozac 40 mg capsule Take 1 capsule every day by oral route. 03/19 completed per 01/11 med dc list Not Available Not Available Not Available pravastat in 40 mg tablet TAKE 1 TABLET BY MOUTH EVERY DAY 2023 active Courtesy refill 06/19/24, Pt needs appt and labs prior to addition al refills. Not Available Not Available Not Available fluconazo le 150 mg tablet Take 1 tablet every day by oral route for 1 day. 05/23 completed Not Available Not Available Not Available senna 8.6 mg tablet Take 2 tablets every day by oral route as directed . 2022 active Per d/c summary [facility] 03/22/23 Not Available Not Available Not Available prednison e 20 mg tablet taper down to home dose of 5mg over 6 days 02/05 completed per dc 01/11 dc summary note Not Available Not Available Not Available prednison e 5 mg tablet TAKE 1 TABLET BY MOUTH EVERY DAY active Not Available Not Available No t Available warfarin 2.5 mg tablet TAKE 1 TABLET BY MOUTH EVERY DAY OR DIRECTED 10/10 completed Pt using Elliquis 01/10/21 NMT,pt using elliquis 3/23/202 1 nehal Not Available Not Available Not Available penicilli n V potassium 500 mg tablet active Not Available Not Available Not Available aspirin 81 mg tablet,de layed release TAKE 1 TABLET BY MOUTH EVERY DAY 2015 active Not Available Not Available Not Avai lable doxycycli ne monohydra te 100 mg tablet TAKE 1 TABLET BY MOUTH TWICE DAILY 02/16 completed finished course 08/14/23 Not Available Not Available Not Available Nicotrol 10 mg inhalatio n cartridge Inhale by inhalati on route. 1 cartridg e every one to two hours 6-16 per day best if continue s puffing for 20 minutes . Use 15 minutes prior to when woyuld usually have smoked 01/11 completed not using 1 nehal not using 10/10/20 21 JEAN Not Available Not Available Not Available tramadol 50 mg tablet TAKE 1 TABLET BY MOUTH EVERY 8 HOURS active Not Available Not Available No t Available triamcino lone acetonide 0.1 % topical cream APPLY SPARINGL Y TO AFFECTED AREA(S) TWICE DAILY 01/11 completed not using it 1 xr PRN Not Available Not Available Not Available bupropion HCl SR 100 mg tablet,12 hr sustained -release TAKE 1 TABLET BY MOUTH TWICE DAILY 2023 active Not Available Not Available Not Avai lable butalbita l-acetami nophen-ca ffeine 50 mg-325 mg-40 mg tablet TAKE 2 TABLETS BY MOUTH EVERY DAY NEEDED FOR HEADACHE active Not Available Not Available No t Available vancomyci n 125 mg capsule FOLLOW PRINT OUT. active Not Available Not Available No t Available oxycodone 15 mg tablet TAKE 1 TABLET BY MOUTH EVERY DAY 01/11 completed not taking 05/18/2021 xr csrp cued script 05/02/21- to fill 05/15/21 not taking 10/10/20 21 JEAN Not Available Not Available Not Available Ensure High Protein oral liquid Take by oral route. 1-2 times per day x 30 2015 active Not Available Not Available Not Avai lable nortripty line 25 mg capsule TAKE 1 CAPSULE BY MOUTH AT BEDTIME 07/13 completed not taking 03/21/2020 LZ Not Available Not Available Not Available oxycodone -acetamin ophen 5 mg-325 mg tablet active Not Available Not Available Not Available amoxicill in 875 mg tablet active Not Available Not Available Not Available hydromorp kimberly 2 mg tablet active Not Available Not Available Not Available famotidin e 20 mg tablet TAKE 1 TABLET BY MOUTH EVERY DAY active Not Available Not Available No t Available methotrex ate sodium 2.5 mg tablet TAKE 8 TABLETS ONCE A WEEK 11/16 completed not using 0-sk, Not taking 0 LZ Not Available Not Available Not Available oxycodone -acetamin ophen 10 mg-325 mg tablet active Not Available Not Available Not Available nicotine (polacril ex) 4 mg gum Chew 1 piece of gum 4 times a day by oral route as needed. 07/03 completed Not Available Not Available Not Available nortripty line 75 mg capsule TAKE 1 CAPSULE BY MOUTH EVERY DAY active Not Available Not Available No t Available prednison e 2.5 mg tablet TAKE 1 TABLET BY MOUTH DAILY active Not Available Not Available No t Available cephalexi n 500 mg capsule TAKE 1 CAPSULE BY MOUTH FOUR TIMES DAILY 08/05 completed Not Available Not Available Not Available fluoxetin e 20 mg tablet Take 2 tablets every day by oral route as directed . 2022 active Not Available Not Available Not Avai lable levothyro xine 125 mcg tablet TAKE 1 TABLET EVERY MORNING ON AN EMPTY STOMACH 04/17 completed no longer taking this dose 04/17/19- Not Available Not Available Not Available warfarin 2 mg tablet TAKE 1 OR 2 TABLETS BY MOUTH EVERY DAY OR DIRECTED 10/10 completed Pt using Elliquis 01/10/21 NMT, pt using elliquis 1 nehal Not Available Not Available Not Available polymyxin B sulfate 10,000 unit-trim ethoprim 1 mg/mL eye drops INSTILL 1 DROP INTO AFFECTED EYE(S) BY OPHTHALM IC ROUTE EVERY 6 HOURS 2014 active Not Available Not Available Not Avai lable warfarin 5 mg tablet TAKE 1 TABLET BY MOUTH DAILY ON SATURDAY, SATURDAY, , , AND SATURDAY AND 1 & 1/2 TABLETS DAILY ON saturday AND 10/10 completed Pt using Elliquis 01/10/21 NMT,pt using elliquis 1 nehal Not Available Not Available Not Available levothyro xine 150 mcg tablet TAKE 1 TABLET BY MOUTH EVERY DAY 04/29 completed Not Available Not Available Not Available nicotine 21 mg/24 hr daily transderm al patch APPLY 1 PATCH TOPICALL Y TO THE SKIN DAILY IN THE MORNING THEN REMOVE AT BEDTIME DIRECTED . DO NOT SMOKE WHILE USING PATCH active Not Available Not Available No t Available bumetanid e 1 mg tablet TAKE 1 TABLET BY MOUTH EVERY DAY FOR 5 DAYS 11/06 completed Not Available Not Available Not Available folic acid 1 mg tablet TAKE 1 TABLET BY MOUTH EVERY DAY active Not Available Not Available No t Available allopurin ol 300 mg tablet active Not Available Not Available Not Available Culturell e 10 billion cell capsule Take 1 capsule twice a day by oral route. 11/16 completed Not taking Not Available Not Available Not Available fluticaso ne propionat e 220 mcg/actua tion HFA aerosol inhaler active Not Available Not Available Not Available lisinopri l 5 mg tablet Take by oral route for 30 days. 11/21 completed Not Available Not Available Not Available mupirocin 2 % topical ointment APPLY A SMALL AMOUNT TO THE AFFECTED AREA BY TOPICAL ROUTE 3 TIMES PER DAY 07/03 completed Not Available Not Available Not Available furosemid e 20 mg tablet TAKE 1 TABLET BY MOUTH EVERY DAY FOR 5 DAYS 03/28 completed Not Available Not Available Not Available Levaquin 500 mg tablet Take 1 tablet every 24 hours by oral route. active Not Available Not Available No t Available lorazepam 1 mg tablet TAKE 1 TABLET BY MOUTH TWICE DAILY NEEDED 2023 active Not Available Not Available Not Avai lable warfarin 1 mg tablet TAKE 1 TABLET BY MOUTH EVERY DAY OR DIRECTED 10/10 completed Not taking 03/21/2020 LZ, Pt using Elliquis 01/10/21 NMT,pt using elliquis 1 nehal Not Available Not Available Not Available hydroxych loroquine 200 mg tablet TAKE 1 AND 1/2 TABLETS BY MOUTH TWICE DAILY active Not Available Not Available No t Available cefuroxim e axetil 500 mg tablet Take 1 tablet every 12 hours by oral route for 5 days. active Per [facility] discharg e summary 06/16, not verified with the patient Not Available Not Available Not Available levofloxa agusto 750 mg tablet TAKE 1 TABLET BY MOUTH EVERY DAY FOR 10 DAYS 02/19 completed Not Available Not Available Not Available albuterol sulfate HFA 90 mcg/actua tion aerosol inhaler INHALE 2 PUFFS BY MOUTH EVERY 4 TO 6 HOURS NEEDED active Not Available Not Available No t Available fluoxetin e 20 mg capsule TAKE 2 CAPSULES BY MOUTH EVERY DAY active Not Available Not Available No t Available fluticaso ne propionat e 50 mcg/actua tion nasal spray,jose m pension 12/29 completed OTC/PRN Not Available Not Available Not Available lisinopri l 2.5 mg tablet active Not Available Not Available Not Available doxycycli ne hyclate 100 mg tablet TAKE 1 TABLET BY MOUTH TWICE DAILY 06/18 completed Not Available Not Available Not Available Augmentin 500 mg-125 mg tablet Take 1 tablet every 12 hours by oral route. active Not Available Not Available No t Available loratadin e 10 mg tablet TAKE 1 TABLET BY MOUTH EVERY DAY active Not Available Not Available No t Available prednisol one 5 mg tablet TAKE 1 TABLET BY MOUTH DAILY 08/02 completed Not Available Not Available Not Available nortripty line 50 mg capsule TAKE 1 CAPSULE BY MOUTH AT BEDTIME 08/31 completed increase d dose Not Available Not Available Not Available diazepam 5 mg tablet active Not Available Not Available Not Available amoxicill in 875 mg-potass ium clavulana te 125 mg tablet TAKE 1 TABLET BY MOUTH TWICE DAILY 12/29 completed Not Available Not Available Not Available bacitraci n-polymyx in B 500 unit-10,0 00 unit/gram eye ointment Apply by ophthalm ic route. small ribbon on each eye every 4 hrs while awake 2014 active Not Available Not Available Not Avai lable oxycodone 5 mg tablet TAKE 1 TABLET BY MOUTH EVERY 4 TO 6 HOURS FOR 5 DAYS 05/23 completed Not Available Not Available Not Available valsartan 160 mg tablet TAKE 1 TABLET EVERY DAY FOR 30 DAYS active pt. stopped this med because of very low BP Not Available Not Available Not Available One Daily Multivita min tablet TAKE 1 TABLET BY MOUTH EVERY DAY active Not Available Not Available No t Available enoxapari n 60 mg/0.6 mL subcutane ous syringe Inject 0.6 mL twice a day by subcutan eous route for 7 days. 2014 active Not Available Not Available Not Avai lable Mucinex 600 mg tablet, extended release Take 1 tablet every 12 hours by oral route for 10 days. 01/12 completed Taking liquid form Not Available Not Available Not Available divalproe x ER 250 mg tablet,ex tended release 24 hr 01/11 completed One daily for PIERRE Not Available Not Available Not Available Nicotine Transderm al 21mg/24hr -14mg/24h r-7mg/24h r transderm al patch Apply 1 patch every day by transder mal route. 2022 active new per 3 [facility] dc med list, does not use 01/23/23 KRB Not Available Not Available Not Available nicotine (polacril ex) 2 mg buccal lozenge DISSOLVE 1 TABLET BY MOUTH EVERY 6 TO 8 hours NEEDED 01/11 completed Not using 12/26/20 wwl, Not using currentl y 01/10/21 NMT, not using 1 nehal not using 10/10/20 21 JEAN Not Available Not Available Not Available tinidazol e 500 mg tablet 02/24 completed Not Available Not Available Not Available Flovent HFA 110 mcg/actua tion aerosol inhaler Inhale 2 puffs twice a day by inhalati on route for 30 days. 2014 active Not Available Not Available Not Avai lable Pain Relief Extra Strength (acetamin ophen) 500 mg tablet TAKE 1 TABLET BY MOUTH EVERY 6 HOURS NEEDED active Not Available Not Available No t Available vancomyci n 250 mg po [id number] 4xdayily for 10-14 days; then 125mg twice daily for 7 days, then 125 mg one daily for 7 days, then 125mg every 3 days for 2 weeks. 2023 active per 4 hosp med dc list Not Available Not Available Not Available amoxicill in-pot clavulana te 875-125 tab take 1 tab q12hrs for 14 days 06/04 completed per 05/26 [facility] med dc list. dx: Cellulit is Not Available Not Available Not Available prednisol one 20mg take 2 tabs (40mg) po x1 active Per [facility] discharg e summary 06/16, not verified with the patient Not Available Not Available Not Available doxycycli ne hyclate 100mg cap 2 times a day for 10days 08/28 completed Not Available Not Available Not Available hydrocodo ne 5 mg-acetam inophen 300 mg tablet active Not Available Not Available Not Available Chantix Starting Month Pato 0.5 mg (11)-1 mg (42) tablets in dose pack Take 1 tablet twice a day by oral route. 01/11 completed hasn't started 10/10/20 21 JEAN Not Available Not Available Not Available Advair HFA 230 mcg-21 mcg/actua tion aerosol inhaler active Not Available Not Available Not Available Chantix Continuin g Month Pato 1 mg tablet Take 1 tablet twice a day by oral route. 01/12 completed hasn't started 10/10/20 21 JEAN Not Available Not Available Not Available FeroSul 325 mg (65 mg iron) tablet TAKE 1 TABLET BY MOUTH EVERY DAY active Not Available Not Available No t Available Vios Aerosol Delivery System USE DIRECTED 01/11 completed Not Available Not Available Not Available lidocaine 5 % topical ointment APPLY TO THE AFFECTED AREA(S) 1-4 TIMES PER DAY NEEDED 08/28 completed not using 05/28/19 sj Not Available Not Available Not Available Eliquis 5 mg tablet TAKE 1 TABLET BY MOUTH TWICE DAILY active Not Available Not Available No t Available Fioricet 50 mg-300 mg-40 mg capsule Take 1 capsule every day by oral route as needed. 2022 active Per d/c summary [facility] 03/22/23 Not Available Not Available Not Available Spiriva Respimat 2.5 mcg/actua tion solution for inhalatio n INHALE 2 PUFFS BY MOUTH EVERY DAY 2023 active Not Available Not Available Not Avai lable Asmanex HFA 200 mcg/actua tion aerosol inhaler INHALE 2 PUFFS BY MOUTH TWICE DAILY FOR ASTHMA active Not Available Not Available No t Available Narcan 4 mg/actuat ion nasal spray Take 1 spray every day by nasal route as needed. active Not Available Not Available No t Available Compact Space Chamber DIRECTED active Not Available Not Available No t Available oxygen continuo us to maintain 02 sat >90 05/23 completed new per 2 SNF dc.joo ntly at 4L n/c says has 2L 03/19/2022 JEAN Not Available Not Available Not Available Tylenol 325 mg capsule Take 3 capsules 3 times a day by oral route as directed . 2022 active Not Available Not Available Not Avai lable Vitals Date Recorded Body height Body mass index (BMI) Body weight Heart rate Systolic blood pressure Diastolic blood pressure Provider Name and Address Organization Details Last Updated DateTime 3 155.58 cm 24.3 kg/m2 57467.2 2 g 74 /min 121 mm[Hg] 70 mm[Hg] Esperanza hui, [facility] 3 16:25:38 Date Recorded Body height Provider Name an d Address Organization Details Last Updated DateTime 03/29/2023 155.58 cm Kamilah Scott MA [facility] 03/29/2023 15:55:04 Date Recorded Body height Heart rate Body mass index (BMI) Body weight Systolic blood pressure Diastolic blood pressure Provider Name and Address Organization Details Last Updated DateTime 3 155.58 cm 92 /min 23.8 kg/m2 62609.2 3 g 114 mm[Hg] 78 mm[Hg] Joy Wei MA [facility] 3 15:29:44 Date Recorded Body height Systolic blood pressure Diastolic blood pressure Provider Name and Address Organization Details Last Updated DateTime 08/14/2023 155.58 cm 110 mm[Hg] 68 mm[Hg] Ofelia Valerio MA [facility] 08/14/2023 15:24:27 Date Recorded Body height Systolic blood pressure Diastolic blood pressure Provider Name and Address Organization Details Last Updated DateTime 02/05/2024 155.58 cm 108 mm[Hg] 68 mm[Hg] Ofelia Valerio MA [facility] 02/05/2024 15:58:52 Social History Question Answer Notes LastModified by Organizat ion Details LastModified Time Tobacco Smoking Status Current Every Day Smoker 1/2 ppd VERÓNICA Albarado [facility] 08/24/2022 15:31:57 What Is Your Level Of Alcohol Consumption? None Information not available 04/15/2014 Do You Wear A Helmet When Biking? No Information not available 12/08/2015 What Is Your Level Of Caffeine Consumption? Heavy 2 Cups Of Coffee Per Day And 2 Liter Soda Information not available 04/15/2014 How Much Tobacco Do You Chew? None Information not available 12/08/2015 What Type Of Diet Are You Following? REGULAR Information not available 04/15/2014 Which Illicit Or Recreational Drugs Have You Used? Denies Information not available 12/08/2015 Do You Or Have You Ever Used E-cigarettes Or Vape? Former User Of Electronic Cigarettes Using A Juul Information not available 03/19/2022 Education 12 Information not available 12/08/2015 How Many Days In The Past Year Have You Had A Heavy Drinking Consumption (4+ Female, 5+ Male)? 0 Information not available 12/08/2015 Are There Any Guns Present In Your Home? No Information not available 12/08/2015 Live Alone Or With Others? With Others Information not available 04/15/2014 CSRP - Narcotics No TRAMADOL 50 MG CSRP ON HOLD PER [facility]. HAVING SURGERY AND SURGEON WILL PRESCRIBE PAIN MEDS FOR NOW Information not available 11/27/2022 CSRP Contract Signed And Discussed Yes 02/24/19 ( ) Information not available 09/04/2022 Patient Has Health Care Proxy Signed And In Chart Yes [email or web address] Information not available 11/21/2018 Marital Status [email or web address] Inf ormation not available 12/08/2015 Mosquito Repellent Used Routinely Yes Information not available 04/15/2014 What Was The Date Of Your Most Recent Tobacco Screening? 05/23/2023 Information not available 05/23/2023 How Many Children Do You Have? 2 Twins Boys 03/06/03 - Information not available 04/15/2014 What Is Your Current Pack Years? 10-pasammy rs Information not available 12/08/2015 Seat Belts Used Routinely Yes Information not available 04/15/2014 Are You Sexually Active? Yes No Condoms/OCP carlos Information not available 12/08/2015 Smoke Alarm In Home Yes Information not available 04/15/2014 Do You Or Have You Ever Used Smokeless Tobacco? Never Used Smokeless Tobacco [email or web address] Information not available 12/11/2019 How Much Tobacco Do You Smoke? No Information not available 03/19/2022 General Stress Level Medium Information not available 12/08/2015 Do You Use Sunscreen Routinely? Yes Information not available 04/15/2014 Do You Or Have You Ever Used Any Other Forms Of Tobacco Or Nicotine? No Information not available 08/24/2022 Sex: Female Functional Status None recorded. Mental Status None recorded. Family History Relationship Description Onset Age of this Age Resolved Age Notes LastModified by Organization Details LastModified Time Mother Malignant tumor of lung 65 deceas ed [email or web address] illo Not available 12/08/2015 10:23:42 Mother Rheumatoid arthritis [email or web address] illo Not available 12/08/2015 10:23:42 Father Family history unknown [email or web address] illo Not available 12/08/2015 10:23:42 Notes:only child - but has h senior living siblings. 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 Myocardial Infarction Y Stroke Y Depression Y Asthma Y Cerebral Vascular Accident Y CARDIOVASCULAR Y GERD Y Sleep Apnea Y Migraine Headaches Y RHEUMATOLOGIC Y Gynecological History Statement/Question Response Menses Monthly Y History of Abnormal Pap Y Current Control Method None Date of LMP 11/21/2015 Obstetrics History GPAL:G 0 P 0 0 0 0 Immunizations Vaccine Type Date Status Note Provider Nam e and Address Organization Details Recorded Time Influenza, split virus, quadrivalent, PF 5 completed Not Available [facility] 12/05/2019 02:34:15 Tdap 7 completed Not Available [facility] 12/05/2019 02:25:39 influenza, unspecified formulation 4 completed Not Available [facility] 06/21/2021 23:36:56 Influenza, split virus, quadrivalent, PF 7 completed Not Available [facility] 12/05/2019 02:29:21 Influenza, split virus, quadrivalent, PF 9 completed Not Available [facility] 12/05/2019 02:28:14 pneumococcal polysaccharide PPV23 9 completed Not Available [facility] 12/05/2019 02:29:22 Influenza, split virus, quadrivalent, PF 0 [facility] 17:06:51 Influenza, split virus, quadrivalent, PF 2 completed Barbie Brown MD [address] [place] [address], [address], [facility] 08/26/2022 13:45:17 COVID-19, mRNA, LNP-S, PF, 30 mcg/0.3 mL dose 1 [facility] 11:29:21 Pneumococcal conjugate PCV 13 8 [facility]2022 11:26:34 Influenza, split virus, quadrivalent, preservative 1 completed [facility] 03/20/2022 11:27:16 Influenza, split virus, quadrivalent, preservative 2 completed [facility] 03/20/2022 11:27:47 Influenza, split virus, quadrivalent, preservative 5 completed [facility] 03/20/2022 11:27:58 COVID-19, mRNA, LNP-S, PF, 30 mcg/0.3 mL dose 1 completed [facility] 03/20/2022 11:29:40 COVID-19, mRNA, LNP-S, PF, 30 mcg/0.3 mL dose 2 completed [facility]22 11:29:02 Past Encounters Encounter ID Performer Location Encounter Start Date Encounter Closed Date Diagnosis/Indication Diagnosis SNOMED-CT Code Diagnosis ICD10 Code Diagnosis Note [id number] Vilma Malone CMA , [facility], OFFICE [address] [place] [address] 41662-341 6 04/15/2014 13:20:52 04/15/2014 16:03:47 Chronic glomerulonephritis 59952716 Acute asthma 137735468 Long-term drug therapy 450946996 [id number] Rosa Osborn , [facility], OFFICE [address] [place] [address] 75844-849 6 04/23/2014 11:22:37 04/23/2014 12:43:37 Chronic glomerulonephritis 89098600 Primary fi bromyalgia syndrome 82122772 Arthritis 5528187 [id number] Brea Henry , [facility], OFFICE [address] [place] [address] 84657-377 6 05/17/2014 12:18:21 05/17/2014 13:02:27 Chronic pain 20329883 Tobacco user 774149474 Primary fi bromyalgia syndrome 89539472 Rheumatoid arthritis 57121062 Anxiety 25713606 Ganglion of hand 820982353 Arthritis 3950943 [id number] Barbie Brown MD , [facility], OFFICE [address] [place] [address] 11389-579 6 07/16/2014 09:14:42 07/16/2014 09:56:01 Chronic pain 89666270 Tobacco user 609784290 Primary fi bromyalgia syndrome 15206534 Rheumatoid arthritis 18132000 [id number] Barbie Brown MD , [facility], OFFICE [address] [place] [address] 95330-825 6 09/14/2014 09:57:55 09/14/2014 10:36:40 Cerebrovascular accident [id number] Saida Ramos LPN , [facility], OFFICE [address] [place] [address] 18551-374 6 10/22/2014 14:38:28 10/22/2014 15:07:36 Cerebrovascular accident [id number] Brea Henry , [facility], OFFICE [address] [place] [address] 87273-823 6 10/25/2014 10:25:26 10/25/2014 11:35:18 Tobacco user 011217135 Shoulder joint pain 969243790 Primary fi bromyalgia syndrome 28817074 Systemic l upus erythematosus 18449226 Breast lump 57797584 Long-term drug therapy 116747893 [id number] Barbie Brown MD , [facility], OFFICE [address] [place] [address] 50379-196 6 10/29/2014 13:59:07 10/29/2014 15:01:00 Cerebrovascular accident [id number] Barbie Brown MD , [facility], OFFICE [address] [place] [address] 45327-321 6 11/05/2014 13:12:13 11/05/2014 14:33:36 Tobacco user 783959437 Anxiety 22403294 Chronic pain 34916539 Breast lump 14943190 Rheumatoid arthritis 02135926 Cerebrovas cular accident 932021642 [id number] Mercedez Rojas LPN , [facility], OFFICE [address] [place] [address] [id number] 6 11/19/2014 14:25:05 11/19/2014 15:11:36 Cerebrovascular accident [id number] Cori Saldana , [facility], OFFICE [address] [place] [address] 59288-720 6 11/20/2014 12:10:42 11/20/2014 15:05:58 Cerebrovascular accident [id number] Barbie Brown MD , [facility], OFFICE [address] [place] [address] 85624-840 6 11/22/2014 11:17:20 11/25/2014 12:09:24 Cerebrovascular accident [id number] Barbie Brown MD , [facility], OFFICE [address] [place] [address] 83504-178 6 11/24/2014 15:32:42 11/26/2014 11:45:42 Cerebral artery occlusion 10576088 [id number] Saida Ramos LPN , [facility], OFFICE [address] [place] [address] 05225-487 6 11/26/2014 15:31:56 11/26/2014 15:54:52 Cerebrovascular accident 004893270 [id number] , [facility], OFFICE [address] [place] [address] [place] [address] 6 12/03/2014 10:48:19 12/03/2014 11:41:43 Tobacco user 913043127 Cerebrovas cular accident 529101402 Chronic pain 60317849 Long-term drug therapy 132469183 Primary fi bromyalgia syndrome 09560659 Major depr essive disorder 855044058 [id number] , [facility], OFFICE [address] [place] [address] 12/09/2014 15:24:37 12/09/2014 16:10:40 Cerebrovascular accident [id number] MEENU, [facility], OFFICE [address] [facility] [place] [address] 6 12/17/2014 10:59:46 12/17/2014 11:14:20 Cerebrovascular accident [id number] Monicazane Cifuentes , [facility], OFFICE [address] [facility] [place] [address] 6 12/24/2014 14:28:09 12/31/2014 13:35:12 Cerebral artery occlusion 27613331 [id number] , [facility], OFFICE [address] [facility] [place] [address] 01/07/2015 13:58:44 01/07/2015 14:15:10 Cerebrovascular accident [id number] , [facility], OFFICE [address] [facility] [place] [address] 6 01/14/2015 11:39:45 01/14/2015 11:53:05 Cerebrovascular accident [id number] [facility], OFFICE [address] [facility] [place] [address] 6 01/21/2015 11:36:35 01/21/2015 12:00:11 Cerebrovascular accident [id number] SOTO Esqueda Rachelle, OFFICE [address] [facility] [place] [address] 6 01/27/2015 11:09:03 01/28/2015 10:22:10 Cerebral artery occlusion 51700344 [id number] SOTO Esqueda Rachelle, OFFICE [address] [facility] [place] [address] 6 02/03/2015 10:09:38 02/04/2015 08:13:49 Cerebral artery occlusion 76835323 [id number] , [facility], OFFICE [address] [place] [address] 02/16/2015 15:36:18 02/17/2015 08:13:36 Cerebral artery occlusion 52361964 [id number] , [facility], OFFICE [address] [place] [address] 56018-570 6 03/03/2015 11:46:04 03/03/2015 14:07:33 Chronic pain 82813505 Cerebrovas cular accident 076505370 Anxiety 30479190 Sleep apnea 00558473 [id number] Mikayla Small LPN , [facility], OFFICE [address] [place] [address] [phone] 6 03/10/2015 11:38:25 03/10/2015 13:28:12 Cerebral artery occlusion [id number] Vilma Malone CMA , [facility], OFFICE [address] [place] [address] [id number] 6 03/18/2015 16:12:50 03/18/2015 17:05:07 Acute upper respiratory infection 48447824 Educated patient that URI is a viral illness of the upper airways. It is not bacterial and does not benefit from antibiotic s. Average duration of URI is 7-10 days but in a recent trial, treatment at 7-10 days of illness with antibiotic s, intranasal steroids, or placebo did not alter natural history at 3 weeks. Recommende d symptomati c treatments including NSAIDS, semi-uprig ht sleep position, antihistam mica at , limited course of nasal sympathomi metics and/or cough syrups, and nasal saline rinses with soft squeeze bottle or Neti pot. Return for fevers > 101 for 3 days, worsening sinus pain, or failure to resolve in 2-4 weeks. Asthmatic bronchitis 665077636 [id number] Mikayla rosales [facility], OFFICE [address] [place] [address] 03/20/2015 10:41:12 03/20/2015 11:14:49 Cerebral artery occlusion 78250476 [id number] Mikayla Small LPN , [facility], OFFICE [address] [place] [address] 6 03/22/2015 10:46:32 03/28/2015 10:07:40 Cerebral artery occlusion 15065229 [id number] Mikayla Small LPN , [facility], OFFICE [address] [place] [address] 18448-557 6 03/24/2015 10:01:00 03/29/2015 11:03:28 Cerebral artery occlusion 29406983 [id number] , [facility], OFFICE [address] [place] [address] 95934-257 6 03/28/2015 13:31:44 03/28/2015 16:54:36 Tobacco user 150242364 Migraine without aura 24864371 Environmental allergy 032284947 Asthmatic bronchitis 493751370 Asthma wit hout status asthmaticus 06785633 Candidiasis of vagina 08818628 Cerebrovas cular accident 903353022 [id number] Barbie Brown MD , [facility], OFFICE [address] [place] [address] 39798-589 6 04/04/2015 13:34:51 04/05/2015 13:56:57 Cerebral artery occlusion 17299513 [id number] Mikayla Small LPN , [facility], OFFICE [address] [place] [address] 83360-749 6 04/07/2015 13:36:23 04/08/2015 15:07:45 Cerebral artery occlusion 45987981 [id number] Mikayla Small LPN , [facility], OFFICE [address] [place] [address] 77085-483 6 04/13/2015 14:38:50 04/14/2015 12:59:16 Cerebral artery occlusion 22869115 [id number] Elda Wheatley , [facility], OFFICE [address] [place] [address] 69816-084 6 04/29/2015 11:15:38 04/29/2015 15:16:56 Cardioembolic stroke 725145646 [id number] Vilma Malone CMA , [facility], OFFICE [address] [place] [address] 81589-054 6 05/04/2015 12:35:59 05/04/2015 13:46:31 Conjunctivitis 3850843 Use antibiotic s as directed. Be certain to wash your hands frequently . Do not touch your face or eyes. Wash all sheets and pillowcase s after starting the medication . Discard any eye makeup. Carefully clean the nose pads of your glasses with alcohol rub. Call if symptoms worsen, you have changes in vision or pain in your eye. Cardioembolic stroke 810024756 [id number] Mikayla Small LPN , [facility], OFFICE [address] [place] [address] 16255-508 6 05/18/2015 13:57:15 05/27/2015 15:31:45 Cerebral artery occlusion 33633268 [id number] , [facility], OFFICE [address] [place] [address] 60201-812 6 05/19/2015 10:36:05 05/19/2015 14:31:06 Long-term drug therapy 712053504 Migraine without aura 07240551 Fracture of tooth 13096167 Asthma wit hout status asthmaticus 58708836 [id number] SOTO Esqueda, [facility], OFFICE [address] [place] [address] 91131-599 6 05/25/2015 13:38:15 06/03/2015 08:38:42 Cerebral artery occlusion 06229946 [id number] Mikayla Small LPN , [facility], OFFICE [address] [place] [address] 10619-368 6 06/09/2015 11:23:51 06/10/2015 10:39:21 Cerebral artery occlusion 34111527 [id number] Mikayla Small LPN , [facility], OFFICE [address] [place] [address] 15970-720 6 06/28/2015 11:40:24 06/29/2015 10:49:35 Cerebral artery occlusion 18777963 [id number] Mikayla Small LPN , [facility], OFFICE [address] [place] [address] 03829-282 6 07/06/2015 15:46:17 07/06/2015 16:52:06 Cerebral artery occlusion 27064900 [id number] Elda Wheatley [facility], OFFICE [address] [place] [address] 15377-234 6 07/08/2015 15:15:35 07/12/2015 11:59:47 Cardioembolic stroke 413340292 [id number] Mikayla Small LPN , [facility], OFFICE [address] [place] [address] 14222-142 6 09/08/2015 08:53:46 09/08/2015 16:52:29 Cerebral artery occlusion 18951682 I66.9 Active or passive immunization 698206225 Z23 [id number] Barbie Brown MD , [facility], OFFICE [address] [place] [address] 74831-998 6 09/16/2015 10:36:50 09/16/2015 11:15:48 Long-term drug therapy 881480681 Z79.899 Cerebral a rtery occlusion 01172249 I66.9 Primary fi bromyalgia syndrome 79860674 M79.7 Rheumatoid arthritis 698 53912 M06.9 Systemic l upus erythematosus 23823314 M32.9 Hypothyroidism 72398541 E03.9 [id number] MD MEENU Dixon, [facility], OFFICE [address] [place] [address] 81327-111 6 10/28/2015 10:55:09 10/28/2015 11:51:29 Environmental allergy 468819758 T78.49XD Pneumonia 317661398 J18. 9 Cerebral a rtery occlusion 18972598 I66.9 Low blood pressure 35301 003 I95.9 Lesion of lower eyelid 2968722075 9106 H02.9 Long-term drug therapy 970988296 Z79.469 [id number] MD MEENU Dixon, [facility], OFFICE [address] [place] [address] 71760-668 6 12/05/2015 09:02:26 12/05/2015 10:10:51 Nicotine dependence 27648522 Z87.891 Tobacco user 938646259 Z 72.0 Acute non- ST segment elevation myocardial infarction 309881243 I21.4 Pleural effusion 2848701 8 J90 Abnormal weight loss 267 124512 R63.4 Asthma wit hout status asthmaticus 61823947 J45.080 [id number] MD MEENU Dixon, [facility], OFFICE [address] [place] [address] 55775-078 6 12/08/2015 09:52:22 12/08/2015 10:52:14 Adult health examination 368782768 Z00.00 see Risk Assessment and Lifestyle Change Counseling section above Counseling 342704643 Z71 .9 Abnormal weight loss 267 376026 R63.4 Screening for malignant neoplasm of cervix 037202208 Z12.4 Screening mammography 24 328374 Z12.31 Long-term drug therapy 959291116 Z79.899 Asthma wit hout status asthmaticus 35247805 J45.909 Anxiety 70771980 F41.9 Cerebral a rtery occlusion 19097456 I66.9 Chronic glomerulonephritis 19656427 N03.9 Hypothyroidism 28678387 E03.9 Major depr essive disorder 033834606 F32.9 Migraine without aura 56 196369 G43.009 Nicotine dependence 5629 4008 Z87.891 Pneumonia 754336978 J18. 9 Primary fi bromyalgia syndrome 48665968 M79.7 Rheumatoid arthritis 698 26537 M06.9 Systemic l upus erythematosus 87426861 M32.9 Acute non- ST segment elevation myocardial infarction 146202370 I21.21 Nov 2015 dx [id number] Barbie Brown MD , [facility], OFF[address] [place] [address] 6 01/09/2016 09:34:28 01/09/2016 10:25:27 Abnormal weight loss 292016028 R63.4 Fibroadeno ma of breast 438350071 D24.9 Acute asthma 409114833 J 45.901 Impetigo 85418398 L01.00 [id number] Barbie Brown MD , [facility], OFFICE [address] [place] [address] 56960-255 6 01/24/2016 09:23:16 01/24/2016 09:55:06 Eruption 787736661 R21 Rheumatoid arthritis 698 14562 M06.9 Major depr essive disorder 481275689 F32.9 Primary fi bromyalgia syndrome 16484257 M79.7 [id number] Barbie Brown MD , [facility], OFFICE [address] [place] [address] 22409-610 6 03/02/2016 10:21:17 03/02/2016 11:20:51 Chronic pain 75341222 R52 Long-term drug therapy 073446224 Z79.899 Hypothyroidism 16607632 E03.9 Rheumatoid arthritis 698 54556 M06.9 Primary fi bromyalgia syndrome 12494484 M79.7 [id number] Luiza Urbano LPN , [facility], OFFICE [address] [place] [address] 30284-003 6 05/16/2016 16:13:32 05/16/2016 16:47:54 Cerebral artery occlusion 18268731 I66.9 [id number] Barbie Brown MD , [facility], OFFICE [address] [place] [address] 20155-591 6 07/03/2016 14:53:05 07/03/2016 15:25:13 Hypothyroidism 70233648 E03.9 Primary fi bromyalgia syndrome 93102231 M79.7 Rheumatoid arthritis 698 13045 M06.9 Systemic l upus erythematosus 27270800 M32.9 Asthmatic bronchitis 405 535638 J45.013 [id number] Cari Mendoza CMA , [facility], OFFICE [address] [place] [address] 65152-732 6 10/02/2016 13:33:44 10/02/2016 14:21:13 Long-term drug therapy 572471909 Z79.899 Cigarette smoker 2885217 7 F17.210 Tobacco user 302693068 Z 72.0 Asthma wit hout status asthmaticus 58419498 J45.909 Systemic l upus erythematosus 79265036 M32.9 Rheumatoid arthritis 698 36953 M06.9 Breast lump 28754351 N63 Major depr essive disorder 997885739 F32.9 [id number] , [facility], OFFICE [address] [place] [address] 76998-708 6 01/09/2017 16:59:27 01/10/2017 12:25:38 Acute upper respiratory infection 92943277 J06.9 -chest xray tonight-us e nebulizers every 6 hours, pro air inbetween if needed-fol low up with Dr. Vargas as planned tomorrow (if pneumonia will treat for pneumonia, if negative may need a short course of high steroids along with a change in the steroid inhaler to advair.-go to the ER if difficulty breathing, fevers, or any other concerns tonight Urinary tr act infectious disease 41109262 N39.0 -urine dip negative for nitrates awaiting culture results-pu sh fluids Cigarette smoker 7960796 7 F17.210 -encourage d to quit-will discuss with Dr. Vargas tomorrow in regards to starting medication again Tobacco user 195574292 Z 72.0 [id number] Barbie Brown MD , [facility], OFFICE [address] [place] [address] 06544-761 6 01/10/2017 11:08:48 01/10/2017 12:36:44 Adult health examination 126484642 Z00.00 see Risk Assessment and Lifestyle Change Counseling section above Counseling 211568292 Z71 .9 Chronic pain 20751278 R5 2 Opioid dependence 756765 00 F11.20 Cigarette smoker 9071127 7 F17.210 Tobacco user 551347690 Z 72.0 Cerebral a rtery occlusion 42017082 I66.9 Acute non- ST segment elevation myocardial infarction 750986448 I21.4 Systemic l upus erythematosus 18378919 M32.9 Rheumatoid arthritis 698 85972 M06.9 Primary fi bromyalgia syndrome 82725755 M79.7 Eruption 770239462 R21 Administra tion of diphtheria, pertussis, and tetanus vaccine 308586394 Z23 [id number] Barbie Brown MD , [facility], OFFICE [address] [place] [address] 72889-414 6 02/07/2017 13:32:55 02/11/2017 08:26:19 Cigarette smoker 57327351 F17.210 Tobacco user 867496724 Z 72.0 Chronic pain 62624695 R5 2 Opioid dependence 115168 00 F11.20 Long-term drug therapy 912780348 Z79.899 Pneumococc al pneumonia 586170714 J13 Anemia 314217052 D64.9 Acute non- ST segment elevation myocardial infarction 941453287 I21.4 Active or passive immunization 181636475 Z23 [id number] Barbie Brown MD , [facility], OFFICE [address] [place] [address] 63300-100 6 06/21/2017 13:43:58 06/21/2017 14:22:31 Cigarette smoker 92021008 F17.210 Tobacco user 301569024 Z 72.0 Long-term drug therapy 455602752 Z79.899 Primary fi bromyalgia syndrome 10360455 M79.7 Rheumatoid arthritis 698 01867 M06.9 Unintentio nal weight loss 627492733 R63.4 Sleep apnea 47621808 G47 .30 Hypothyroidism 44012770 E03.9 [id number] Filomena Gomez CMA , [facility], OFFICE [address] [place] [address] 12738-669 6 08/21/2017 08:41:08 08/21/2017 09:49:13 Asthma 705111192 J45.174 [id number] Barbie Brown MD , [facility], OFFICE [address] [place] [address] 77037-992 6 10/14/2017 14:37:54 10/14/2017 15:13:27 Cigarette smoker 96825781 F17.210 Tobacco user 668987729 Z 72.0 Asthma wit hout status asthmaticus 50843150 J45.909 Cerebral a rtery occlusion 10858394 I66.9 Major depr essive disorder 745133954 F32.9 Hypothyroidism 52956771 E03.9 Primary fi bromyalgia syndrome 02538639 M79.7 Active or passive immunization 206036308 Z23 [id number] Barbie Brown MD , [facility] [facility], OFFICE [address] [place] [address]52[address] 6 11/28/2017 10:34:35 11/28/2017 11:40:12 Cigarette smoker 75086997 F17.210 Tobacco user 451249484 Z 72.0 Pneumonia 067180075 J18. 9 Hemolytic anemia 3700807 9 D59.4 Low blood pressure 80913 003 I95.9 [id number] Barbie Brown MD , [facility], OFFICE [address] [place] [address]67-722 6 12/12/2017 13:24:01 12/12/2017 14:33:05 Cigarette smoker 17104094 F17.210 Tobacco user 686346171 Z 72.0 Hemolytic anemia 8058716 9 D59.4 Pneumonia 158123755 J18. 9 [id number] Barbie Brown MD , [facility], OFFICE [address] [place] [address] 01/13/2018 13:50:06 01/20/2018 13:41:33 Rheumatoid arthritis 24393784 M06.9 Primary fi bromyalgia syndrome 26237130 M79.7 Anemia 820253342 D64.9 [id number] Barbie Brown MD , [facility], OFFICE [address] [place] [address]572[address] 6 02/13/2018 15:07:51 02/13/2018 16:20:13 Adult health examination 174918403 Z00.00 see risk assessment and lifestyle change section Depression screening 171 967696 Z13.89 depression screening tool administer ed, entered into emr, scored and discussed, time greater than 7.5 minutes Cigarette smoker 6324950 7 F17.210 Tobacco user 614333380 Z 72.0 Long-term drug therapy 607350469 Z79.899 SLE glomerulonephritis syndrome 24237275 M32.14 Hypothyroidism 01433180 E03.9 Cardioembolic stroke 413 028740 I63.40 Major depr essive disorder 513799379 F32.9 Systemic l upus erythematosus 35503659 M32.9 Rheumatoid arthritis 698 50476 M06.9 Primary fi bromyalgia syndrome 20132538 M79.7 Edema of foot 825341215 R60.0 Tobacco de pendence syndrome 48133835 F17.652 [id number] Barbie Brown MD , [facility], OFFICE [address] [place] [address] 03/21/2018 14:23:54 03/21/2018 15:40:12 Chronic pain 38217703 R52 Long-term drug therapy 192769264 Z79.899 Edema of l ower extremity 464009077 R60.0 SLE glomerulonephritis syndrome 52707552 M32.14 Rheumatoid arthritis 698 08793 M06.9 Primary fi bromyalgia syndrome 94481391 M79.7 [id number] Barbie Brown MD , [facility], OFFICE [address] [place] [address] 6 03/28/2018 08:58:30 03/28/2018 13:16:33 Edema of lower extremity 964686450 R60.0 Edema of hand 426594447 R60.0 [id number] Barbie Brown MD , [facility], OFFICE [address] [place] [address] 6 05/16/2018 15:41:51 05/16/2018 16:48:42 Chronic pain 72451612 R52 Opioid dependence 259375 00 F11.20 Cigarette smoker 2607086 7 F17.210 Tobacco user 534750720 Z 72.0 Anxiety 17282517 F41.9 Lymphadenopathy 77539646 R59.9 Systemic l upus erythematosus 79307260 M32.9 Cerebral a rtery occlusion 85210150 I66.9 [id number] Barbie Brown MD , [facility], OFFICE [address] [place] [address]266[address]341 6 11/06/2018 12:27:23 11/06/2018 14:48:09 Cigarette smoker 29251863 F17.210 Tobacco user 285277547 Z 72.0 Low grade squamous intraepithelial lesion on cervical Papanicolaou smear 4572601857 9105 R87.612 Anxiety 75737640 F41.9 Environmental allergy 42 3710730 T78.49XD SLE glomerulonephritis syndrome 26493511 M32.14 Systemic l upus erythematosus 66321123 M32.9 Major depr essive disorder 032067229 F32.1 [id number] Tish Lopez LPN , [facility], OFFICE [address] [place] [address] 6 02/24/2019 12:07:14 02/24/2019 14:21:56 Adult health examination 999817575 Z00.00 see risk assessment and lifestyle change section Depression screening 171 452465 Z13.89 depression screening tool administer ed, entered into emr, scored and discussed, time greater than 7.5 minutes SLE glomerulonephritis syndrome 46541910 M32.14 followed by nephrology - Dr Lisa Cerebral a rtery occlusion 67236566 I66.9 Major depr essive disorder 285155636 F32.1 well managed with meds for now; continue meds and f/u in 3 mos Hypothyroidism 84361880 E03.9 TSH not in range. Systemic l upus erythematosus 33153398 M32.9 followed closely by Cyndi - judith Primary fi bromyalgia syndrome 45587271 M79.7 Long-term drug therapy 405987808 Z79.899 Expiratory wheezing 9763 007 R06.2 Rheumatoid arthritis 698 88345 M06.9 followed closely by Cyndi - judith Screening mammography 24 245246 Z12.31 Anxiety 46537165 F41.9 [id number] Cherelle Green PA-C , [facility], OFFICE [address] [place] [address] 6 04/17/2019 17:22:01 04/20/2019 12:54:26 Cigarette smoker 09050292 F17.210 - not ready to quit Tobacco user 910575768 Z 72.0 Acute asthma 098958227 J 45.901 - improvemen t after nebulizer treatment- restart flovent twice daily and rinse mouth out after use- return to office if symptoms are not improving in 1-2 days, we may need to increase your steroid dose for a few days- flu testing negative- chest xray negative Migraine 42839459 G43.90 9 - stable [id number] Barbie Brown MD , [facility], OFFICE [address] [place] [address] 05/28/2019 13:46:41 05/28/2019 14:25:38 Cigarette smoker 40459204 F17.210 Tobacco user 884801258 Z 72.0 Major depr essive disorder 647553613 F32.1 well managed with meds for now; continue meds and f/u in 3 mos Hypothyroidism 24788958 E03.9 Anxiety 51135384 F41.9 SLE glomerulonephritis syndrome 77597052 M32.14 followed by nephrology - Dr Flores Rheumatoid arthritis 698 25920 M06.9 followed closely by Cyndi - judith Diarrhea 31894435 R19.7 Opioid dependence 408039 00 F11.20 Headache 71773992 R51 [id number] Radha Walsh , [facility], OFFICE [address] [place] [address] 08/28/2019 12:27:39 08/31/2019 15:53:24 Chronic pain 52827236 R52 Opioid dependence 715785 00 F11.20 Intrinsic asthma 0377825 08 J45.20 Counseling 899609610 Z71 .9 Cigarette smoker 5559662 7 F17.210 Tobacco user 021085709 Z 72.0 Long-term drug therapy 046297979 Z79.899 Migraine with aura 02464 06 G43.109 Headache 66606171 R51 Venous ins ufficiency of leg 774331220 I87.2 Rheumatoid arthritis [address] Katarina Herrera Active or passive immunization 761642274 Z23 [id number] Barbie Brown MD , [facility], OFFICE [address] [place] [address] 12/11/2019 13:36:28 12/11/2019 15:55:54 Rheumatoid arthritis 19419976 M06.9 Dr Brian Gastelum Systemic l upus erythematosus 35857008 M32[address] Brian Gastelum SLE glomerulonephritis syndrome 27777506 M32.14 followed by nephrology - Dr Brian Gastelum Diarrhea 34495662 R19.7 Asthmatic bronchitis 405 770732 J45.909 Cerebral a rtery occlusion 29718528 I66.9 Long-term drug therapy 505254510 Z79.899 Opioid dependence 983974 00 F11.20 [id number] Barbie Brown MD , [facility], OFFICE [address] [place] [address] 94703[address] 6 03/21/2020 13:28:38 03/22/2020 12:45:11 Cigarette smoker 33553369 F17.210 Tobacco user 673043458 Z 72.0 Major depr essive disorder 765979371 F32.1 well managed with meds for now; continue meds and f/u in 3 mos Primary fi bromyalgia syndrome 78841201 M79.7 Rheumatoid arthritis [address] Brian Gastelum Pruritic rash 54001514 L 28.2 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 - [id number] Barbie Brown MD , [facility], OFFICE [address] [place] [address] 99520[address]844 6 05/13/2020 15:24:44 05/16/2020 13:23:52 Cigarette smoker 34334272 F17.210 Pain in pelvis 33132988 R10.2 Low back pain 008554010 M54.5 Mass of right breast 807 4413376 9962158 N63.10 [id number] Barbie Brown MD , [facility], OFFICE [address] [place] [address]43[address] 6 06/10/2020 15:49:32 06/15/2020 12:40:29 Backache 425845717 M54.9 Cigarette smoker 5076832 7 F17.210 Tobacco user 270439655 Z 72.0 Pain in ri ght hip joint 0672431669 48866 M25.551 Pain of le ft hip joint 6806756785 82742 M25.552 Rheumatoid arthritis [address] Brian Gastelum Osteopenia 670597313 M85 .80 [id number] Anjana Franco NP , [facility], OFFICE [address] [place] [address] 78769-810 6 07/13/2020 14:32:49 07/20/2020 12:31:55 Cigarette smoker 04167538 F17.210 Tobacco user 532207349 Z 72.0 Cellulitis of lower limb 823376591 L03.119 Long-term current use of anticoagulant 395358240 Z79.01 [id number] Barbie Brown MD , [facility], OFFICE [address] [place] [address]16[address] 6 07/15/2020 14:27:35 07/18/2020 13:44:29 Cellulitis of lower limb 944716713 L03.119 Bunion 307274303 M21.61 9 Rheumatoid arthritis 698 67503 M06.9 Hyperlipidemia 70402314 E78.5 [id number] Barbie Brown MD , [facility], OFFICE [address] [place] [address] 94646-513 6 07/29/2020 15:48:01 08/01/2020 13:12:30 Cigarette smoker 40677651 F17.210 Tobacco user 532979069 Z 72.0 Cerebral a rtery occlusion 19411651 I66.9 Moderate p ersistent asthma 881455134 J45.40 Peripheral edema 1680440 00 R60.9 Cellulitis of lower limb 826316619 L03.119 Rheumatoid arthritis 698 31665 M06.9 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 - [id number] Andrea Hernandez DPM Podiatry, [address] [address] 6 08/09/2020 07:40:13 08/09/2020 15:14:18 Acquired hallux varus 41372686 M20.31 [id number] Barbie Brown MD , [facility], OFFICE [address] [place] [address] 9[address]19-294 6 08/18/2020 15:33:13 08/19/2020 16:07:58 Cellulitis of lower limb 408914276 L03.119 Long-term current use of anticoagulant 932889938 Z79.01 Cerebral a rtery occlusion 69935697 I66.9 [id number] Barbie Brown MD , [facility], OFFICE [address] [place] [address] 77530-842 6 08/25/2020 09:31:14 08/31/2020 13:03:04 Cellulitis of lower limb 027400053 L03.590 [id number] Barbie Brown MD , [facility], OFFICE [address] [place] [address] 16509[address] 6 09/16/2020 13:44:40 09/21/2020 13:19:22 Candidiasis of vagina 58434390 B37.3 Cellulitis of lower limb 420598006 L03.926 [id number] Ceferino Flores MD Rheumatol [facility], [address] [address] 10/31/2020 07:49:26 10/31/2020 13:44:01 Systemic lupus erythematosus 76734464 M32.9 Patient has a long standing history of lupus and possible seronegati ve RA. In view of the history of recurrent cellulitis , and ulcers lower extremity, I will order some labs. Continue plaquenil and prednisone for now. No change in therapy now. Patient is immunosupp ressed and has recurrent infections , we should be very careful with immunosupp ressants. Get radiograph s results. Nicotine dependence 5629 4008 F17.200 Counselled on smoking cessation and the implicatio n of smoking in her disease. Ulcer of foot 74665137 L 97.909 following with the wound clinic, she states that it has healed now. [id number] Barbie Brown MD , [facility], OFFICE [address] [place] [address] 11/07/2020 15:48:56 11/08/2020 15:15:22 Chronic pain 62796135 R52 Moderate p ersistent asthma 543762078 J45.40 (symptoms or bronchodil ator use daily) PERSISTENT {{moderate * severe}} Based on history, physical assessment , and peak flow, the patient's asthma {{is is not*}} in control. See orders for adjustment in plan. The asthma action plan has been discussed. The patient verbalizes understand ing of medication use. The patient is in agreement with this plan. Cigarette smoker 8841985 7 F17.210 Tobacco user 790288045 Z 72.0 Acute exac erbation of asthma 744933022 J45.901 Cough 04337783 R05 Nicotine dependence 5629 4008 Z87.891 Active or passive immunization 713105611 Z23 Rheumatoid arthritis 698 11066 M06.9 SLE glomerulonephritis syndrome 22848077 M32.14 followed by nephrology - Systemic l upus erythematosus 80353887 M32.[address] Brian Gastelum [id number] Cherelle Green PA-C , [facility], OFFICE [address] [place] [address] 11/16/2020 15:28:44 11/17/2020 13:27:37 Acute exacerbation of asthma 235420939 J45.901 - symptoms much improved with prednisone burst - continues with albuterol twice daily - continue to monitor and call with any worsening symptoms, fever, shortness of breath Cigarette smoker 3034769 7 F17.210 - not ready to quit but considerin g starting the nicotrol Tobacco user 808008308 Z 72.0 [id number] Ceferino Flores MD Rheumatol lj, [facility] [address] [place] [address] 01/02/2021 15:29:55 01/02/2021 19:32:33 Systemic lupus erythematosus 92675611 M32.9 Patient has a long standing history of lupus and possible seronegati ve RA. In view of the history of recurrent cellulitis , and ulcers lower extremity, we need to be very cautious with the immunosupp ressants. Elevated inflammato ry markers. Will start sulfasalaz ine bid. Check labs in 10 weeks. Continue plaquenil and prednisone for now. Get radiograph s results, not available in the chart, Patient to see regional vice president surgical sales and get prosthetic shoes. If infection, patient to stop sulfa. Side effects of sulfasalaz ine discussed with the patient, including but not limited to: allergic reaction, cytopenias , elevated liver enzymes, gastrointe stinal discomfort . Patient counselled that she will need regular blood testing to monitor for the side effects. Patient verbalized understand ing. Nicotine dependence 5629 4008 F17.200 Counselled on smoking cessation and the implicatio n of smoking in her disease. Ulcer of foot 75495788 L 97.909 following with the wound clinic, she states that it has healed now. Osteopenia 249388192 M85 .80 With high FRAX scores. Plan to start Fosamax next visit as we are starting sulfasalaz ine today and the combinatio n may be harsh on her stomach. [id number] Barbie Brown MD FP, [facility], OFFICE [address] [place] [address] 01/10/2021 08:07:03 01/10/2021 16:51:43 Cigarette smoker 97652634 F17.210 Tobacco user 086232175 Z 72.0 Rheumatoid arthritis 698 00923 M06.9 SLE glomerulonephritis syndrome 32307561 M32.14 followed by nephrology - Systemic l upus erythematosus 49686904 M32.[address] Brian Gastelum Chronic pain 16632303 R5 2 Anxiety 09561396 F41.9 [id number] RADHA Denton , [facility], OFFICE [address] [place] [address] 02/07/2021 14:26:55 02/09/2021 11:15:43 Cigarette smoker 98384076 F17.210 - working on reducing use - has gum and patches at home, encouraged use of these Tobacco user 279625073 Z 72.0 Cellulitis of lower limb 725225190 L03.119 - evidence of acute RLE cellulitis on exam - will treat with doxy as this has worked well in the past for her; med risks/bene fits/side effects reviewed including do not take with calcium, may cause sun sensitivty - f/u with PCP as scheduled next week - call for any worsening or new symptoms in the interim [id number] Barbie Brown MD , [facility], OFFICE [address] [place] [address] 6 02/13/2021 15:55:06 02/15/2021 12:41:05 Cigarette smoker 93674820 F17.210 Tobacco user 505804490 Z 72.0 Chronic pain 24342444 R5 2 Opioid dependence 508598 00 F11.20 Dry cough 92711261 R05 Primary fi bromyalgia syndrome 15015396 M79.7 Rheumatoid arthritis 698 67114 M06.9 Candidiasis of mouth 797 68866 B37.0 [id number] Barbie Brown MD , [facility], OFFICE [address] [place] [address]61[address] 6 05/18/2021 14:29:00 05/19/2021 16:09:13 Chronic pain 04454709 R52 Long-term current use of opiate analgesic drug 0197427253 98213 Z79.891 Cigarette smoker 3457397 7 F17.210 Tobacco user 926514531 Z 72.0 Anxiety 48270077 F41.9 Hypothyroidism 10443319 E03.9 Rheumatoid arthritis 698 40557 M06.9 SLE glomerulonephritis syndrome 01944267 M32.14 followed by nephrology - Systemic l upus erythematosus 56448786 M32.[address] Flores [id number] Ceferino Flores MD Rheumatol [facility], [address] [address] 03/10/2021 07:37:21 03/10/2021 15:06:49 Systemic lupus erythematosus 48045407 M32.9 Patient has a long standing history of lupus and possible seronegati ve RA. In view of the history of recurrent cellulitis , and ulcers lower extremity, we need to be very cautious with the immunosupp ressants. Elevated inflammato ry markers. Patient reports that she may have a sinus infection. Patient to contact her PCP today. Continue same dose of sulfasalaz ine for now. If no improvemen t in her possible infection while on sulfa, patient to hold sulfa. Once infection completely cleared, patient to contact office to increase sulfa to 2 tablets bid. Continue plaquenil and prednisone for now. Patient to see regional vice president surgical sales and get prosthetic shoes. Nicotine dependence 5629 4008 F17.200 Counselled on smoking cessation and the implicatio n of smoking in her disease. Ulcer of foot 11926795 L 97.909 following with the wound clinic, she states that it has healed now. Osteopenia 095162241 M85 .80 With high FRAX scores. Start Fosamax next visit. Patient concerned about infection for now. [id number] Barbie Brown MD , [facility], OFFICE [address] [place] [address] 03/10/2021 15:52:21 03/14/2021 15:21:04 Acute maxillary sinusitis 18559488 J01.00 [id number] RADHA Denton , [facility], OFFICE [address] [place] [address] 03/24/2021 13:36:39 03/28/2021 17:34:57 Cigarette smoker 25974043 F17.210 - working on reducing use - has gum and patches at home, encouraged use of these Tobacco user 843869586 Z 72.0 Acute sinusitis 48084814 J01.90 - only minimal improvemen t with Augmentin, still having sinus pain/press ure - fully covid19 vaccinated in January, no recent known exposures - will treat with doxycyline x7 days, total 14 days on abx; med risk/benef its/side effects reviewed - if no improvemen t thereafter would consider imaging to confirm infection - recommende d continued supportive care including rest, nasal saline, steam/hot showers, nasal spray (Afrin okay x3 days, then switch to Flonase or nasal saline), OTC nasal decongesta nts, analgesics , cough syrup/sore throat lozenges as needed; push fluids - call with any new/worsen ing symptoms [id number] Ceferino Flores MD Rheumatol [facility], [facility] [address] [place] [address] 08/31/2021 13:52:44 08/31/2021 15:39:26 Elbow joint swelling 333091796 M25.429 Mostly swelling around the elbow. Patient is on Eliquis, she is falling repetitive ly at home. She is on Eliquis.Ru le out bleeding.P atient asked to go to the ER for further investigat ion. Pain of ri ght knee joint 9999356145 65550 M25.561 With swelling and warmth.Wit h history as above:rule out bleeding, rule out infection or inflammato ry arthritis. Patient needs a CT Scan and aspiration under US as she is on eliquis.I asked her to go now to the ER. Cellulitis of lower limb 444828679 L03.119 History of recurrent cellulitis . Looks active to me. I cannot compare to before as I have not seen it before.Christine napier be evaluated in ER.I asked her to ask the ER doctor to call my office once she is there so I can discuss the case with him. [id number] Betsy Ramsey MD Sports Medicine, [facility] [address] [place] [address] 09/26/2021 15:12:05 09/27/2021 15:13:22 Cigarette smoker 14131342 F17.210 Emiliana and I discussed smoking cessation today. She currently smokes 1 pack per day. I reviewed with her the adverse effects of smoking on her musculoske letal system. She does have a prescripti on for Chantix that she has not yet started taking. I encouraged her to further work on smoking cessation. Greater than 3 minutes was spent performing tobacco cessation counseling today in the office. I've advised follow-up with patients PCP to continue to work on smoking cessation. Tobacco user 985018501 Z 72.0 Pain of ri ght knee joint 3549385477 25309 M25.561 Emiliana is a 46-year-ol d female with right knee pain as well as an effusion of uncertain etiology. I feel the main differenti al would be related to her underlying osteoarthr itis as seen on her CAT scan of the knee performed recently at [facility]. Also in the differenti al would be an inflammato ry effusion related to her lupus. I discussed all of this with her today as well as discussing further workup and treatment. The decision was made to perform a right knee joint diagnostic aspiration under ultrasound guidance. She tolerated this well without complicati on. She will ice over the next several days and gradually resume normal activities . The fluid did appear normal and noninflamm atory but I will plan to send it for cell count and differenti al as well as culture, crystals, and Lyme PCR. Emiliana will plan to follow-up with Dr. Flores for further medical management of her lupus. I am of course happy to see her back as needed if she requires further treatment of her knee effusion. Osteoarthr itis of knee 905045334 M17.11 [id number] Betsy Ramsey MD Sports Medicine, [address] [address] 10/04/2021 15:09:46 10/04/2021 16:06:07 Cigarette smoker 52641709 F17.210 I did once again discuss cessation with Emiliana again today in the office. She continues to smoke 1 pack per day and has not filled her prescripti on for Chantix. I encouraged her to find and fill this prescripti on. I also reviewed with her the effects of smoking on postoperat mayo recovery. We did discuss that if she has eventual surgery for treatment of her olecranon bursitis she will recover much better she is not smoking. I have urged her to do smoking cessation. Greater than 3 minutes was spent performing tobacco cessation counseling today in the office. I've advised follow-up with patients PCP to continue to work on smoking cessation. Tobacco user 255459460 Z 72.0 Pain in elbow 43940542 M 25.521 Bursitis o f olecranon of right elbow 1588364895 56892 M70.21 Emiliana is a 46-year-ol d female with a rather impressive right elbow olecranon bursitis. She may potentiall y have had a rupture of the olecranon bursa causing some of the fluid to track along her proximal forearm. I did review the CT scan report from [facility] which indicated olecranon bursitis.. Fluid analysis from the elbow revealed no growth or signs of bacterial infection. I reviewed olecranon bursitis with her today as well as discussing further treatment. We discussed continued observatio n versus aspiration and corticoste roid injection or potential surgery. Due to her continued and rather impressive symptoms she did undergo a right elbow olecranon bursa aspiration and corticoste roid injection under ultrasound guidance. She tolerated this well complicati on. To ice and rest of the we can gradually activities . She will plan to follow up with me as needed if she has return of symptoms. [id number] Carol Simental, [facility] , [facility], OFFICE [address] [place] [address] 10/10/2021 14:55:39 10/11/2021 09:05:01 Cigarette smoker 19785533 F17.210 Tobacco user 760751132 Z 72.0 Acute uppe r respiratory infection 10116626 J06.9 Educated patient that URI is a viral illness of the upper airways. It is not bacterial and does not benefit from antibiotic s. Average duration of URI is 7-10 days but in a recent trial, treatment at 7-10 days of illness with antibiotic s, intranasal steroids, or placebo did not alter natural history at 3 weeks. Recommende d symptomati c treatments including NSAIDS, semi-uprig ht sleep position, antihistam mica at HS, limited course of nasal sympathomi metics and/or cough syrups, and nasal saline rinses with soft squeeze bottle or Neti pot. Return for fevers > 101 for 3 days, worsening sinus pain, or failure to resolve in 2-4 weeks. Cough 51748139 R05.9 -Push fluids-Res t-Tylenol as needed-Chi cken soup, and tea w/ honey -Follow-up if not improving in 1-week or call sooner if increasing fever, purulent sputum develop, or shortness of breath, + cough worsening. -Mucinex to thin secretions Low risk - no exposure Pain of ri ght knee joint 6729718897 24545 M25.736 [id number] Betsy Ramsey MD Sports Medicine, [facility] [address] [place] [address] 10/18/2021 16:14:37 10/19/2021 13:16:11 Osteoarthritis of knee 768782285 M17.11 Pain of ri ght knee joint 0124832486 79805 M25.561 Emiliana is a 46-year-ol d female with right knee pain consistent with osteoarthr itis. She has diffuse joint line pain as well as an effusion. Her recent synovial analysis revealed no evidence of an inflammato ry arthropath y in her CT scan of the extremity had degenerati ve changes of the lateral compartmen t. We discussed treatment options and she would like to proceed with a corticoste roid injection but we have chosen to defer this for today due to concern for possible cellulitis of her extremity. Emiliana has chronic edema and vascular insufficie ncy changes of both legs but has noticed increasing swelling as well as some redness of her right lower leg over the last 2 days. Having seen her only once before for her knee, it is somewhat how I did tell if she has cellulitis versus chronic dermatolog ic changes of her right lower extremity. She does have an appointmen t tomorrow with her primary care doctor for an evaluation . She currently has a normal heart rate, blood pressure, and is afebrile and I feel okay to wait until tomorrow for evaluation by her primary care doctor to discuss if initiation of antibiotic s as needed. I have advised her that I am happy to see her back for a knee injection after we are sure there is no evidence of cellulitis in her extremity. She will plan to follow up with me as needed for further care. Over 30 minutes was spent on patient care activities during the day of service [id number] RADHA SON NP , [facility], OFFICE [address] [place] [address] 01/18/2022 14:37:56 01/25/2022 16:31:34 Hypokalemia 55590866 E87.6 -potassium levels low in the hospital, on potassium chloride x 7 days-will recheck levels Chronic ob structive pulmonary disease 07095298 J44.9 -continue on 4L O2, VNA will continue tapering efforts-co ntinue flovent inhaler-re questing pulmnology referral to Dr. Fernandez-will continue daily prednisone as well Swelling o f knee joint 204177525 M25.469 -recurrent concern, requesting appt with GM for drainage, pt case sent for scheduling Systemic l upus erythematosus 37229647 M06.9 -requestin g med refills Acid reflux 694803893 K2 1.9 [id number] Cherelle Green PA-C , [facility], OFFICE [address] [place] [address] 02/05/2022 15:30:53 02/13/2022 15:31:42 Cellulitis 096816002 L03.90 - cellulitis on leg, has had five times in the past and has required antibiotic s by IV- start doxycyclin e x7 days, patient aware of side effects- return if increased fever, worsening swelling, joint pain Rheumatoid arthritis 698 39304 M06.9 - continue current medication s, encouraged to schedule a follow up with Dr Flores Chronic ob structive pulmonary disease 66664320 J44.9 - on 3.5L of oxygen since having COVID, required intubation - on prednisone daily, immunocomp romised- encouraged follow up with pulm [id number] RADHA Denton , [facility], OFFICE [address] [place] [address] 02/27/2022 15:20:43 03/12/2022 11:31:56 Cellulitis of lower limb 359114102 L03.119 recurrent erythema and edema s/p 10 day course of doxy (off x about 1 week), will extend to total 14 day course; reviewed not to take med with calcium and may cause sun sensitivty call if worsening or not resolving after course extension; UC hours reviewed tto ER with any new SOB or chest pains [id number] Bhavya Burns , [facility], OFFICE [address] [place] [address] 03/19/2022 16:03:35 04/05/2022 15:02:42 Active or passive immunization 728441292 Z23 covid- received/w ill request MIIS Cellulitis of right lower limb [id number] 8033820 L03.115 restart the antibiotic . Easy bruising 124454096 R58 likely from prednisone and elliquis Pain in right foot 87103 75854 80904 M79.671 She will talk to PCP about shoe. custom Lymphedema of lower extremity 600050198 I89.0 recommend consult for lypmhedema . [id number] Betsy Ramsey MD Sports Medicine, [address] [address] 06/04/2022 15:30:33 06/04/2022 16:13:47 Pain of right knee joint [id number] 32275 M25.561 Emiliana is a 46-year-ol d female with right knee pain that I believe is due to exacerbati on of her underlying osteoarthr itis. I was able to obtain her emergency department notes from [facility] and it does not appear any x-ray imaging was done. I reviewed all this with her today as well as discussing further treatment. I have advised that due to her recent trauma that she had x-rays of the knee done to evaluate for any bony injury causing her increased discomfort . If her x-rays do not reveal any traumatic injury she may benefit from a knee joint corticoste roid injection. I have advised however due to her recent cellulitis that I would like her to be off antibiotic s 2 weeks without any return of infection prior to proceeding with a knee joint injection. She will plan to make a follow-up appointmen t with me on June 20 in [facility] after her x-rays for reevaluati on and possible injection. Osteoarthr itis of knee 041359128 M17.11 [id number] Betsy Ramsey MD Sports Medicine, [address] [address] 06/20/2022 15:01:49 06/20/2022 16:13:28 Pain of right knee joint 8788194512 16115 M25.561 Emiliana is a 46-year-ol d female with right knee pain that he believe is due to underlying osteoarthr itis. Her cellulitis of the leg appears completely resolved and she has been off antibiotic s for over 2-1/2 weeks. I reviewed further treatment with her including the use of oral medication s and considerat ion of repeat corticoste roid injections . We also discussed possible future knee arthroplas ty. Due to her recent trauma it still would like to have an x-ray of the knee done prior to proceeding with a knee corticoste roid injection. I have assisted her in arranging to have this knee x-ray done later today after the office visit and I am happy to see her back at the next open appointmen t in the future for reconsider ation of a knee joint injection. Osteoarthr itis of knee 201331405 M17.11 Bursitis o f olecranon of right elbow 0163272519 89823 M70.21 Emiliana is chronic olecranon bursitis of the right elbow that appears to have structured and continues to drain somewhat into her subcutaneo us tissue. I did perform a brief ultrasound today revealing nodularity of the subcutaneo us tissue with tracking fluid from her olecranon bursa. The fluid was very minimal in my opinion not amenable to aspiration . I advised that the best treatment for this would be medical management of her autoimmune disease which she is working on with Dr. Flores. We discussed that if she has a significan tly increased size fluid collection this may be amenable to percutaneo us aspiration and drainage in the future. We also discussed that she may benefit from surgical removal of her olecranon bursa if she has ongoing symptoms. I am happy to see Rina back as needed further care of her elbow in the future. Over 20 minutes was spent on patient care activities on the day of service [id number] Betsy Ramsey MD Sports Medicine, [address] [address] 07/16/2022 15:41:01 07/16/2022 16:26:36 Pain of right knee joint 4362956600 19582 M25.561 Emiliana is a 46-year-ol d female with right knee pain secondary to osteoarthr itis as well as her her autoimmune lupus. I reviewed this with her and her canine enforcement officer today as well as discussing treatment. We discussed continued activity modificati ons and physical therapy. We discussed that her foot and ankle surgery will hopefully help improve her biomechani cs. We discussed the potential for a knee replacemen t surgery in the future. Her recent x-rays reveal rather severe lateral compartmen t degenerati ve changes which is likely the main source of her symptoms. Her x-rays revealed no bony injury. Due to her continued pain she did undergo a right knee joint aspiration and corticoste roid injection under ultrasound guidance. She tolerated this well without complicati on. Her synovial fluid was slightly cloudy and she likely has an element of autoimmune arthropath y causing some of her symptoms. She will plan to ice and rest over the next week and gradually resume normal activities . Emiliana will plan to follow-up with me as needed for further care. Osteoarthr itis of knee 428272700 M17.11 [id number] Barbie Brown MD , [facility], OFFICE [address] [place] [address] 08/24/2022 15:18:07 09/04/2022 08:12:26 Chronic obstructive pulmonary disease 98939042 J44.9 See HPI for detailed history GOLD air flow assessment grade {{1 2 3 4} } mMCR dyspnea scale grade {{0 1 2 3 4}} ABCD assessment tool group {{A, RX recommenda tion: FRANCISCO (ex, Proair) or LES (ex, Atrovent) B, RX recommenda tion: LABA ( ex, Serevent) or LAMA (Ex, Spiriva) C, Rx recommende d: LAMA (ex, Spiriva) D , RX recommende d: LAMA (ex, Spiriva) or LAMA + LABA ex, Anoro Ellipta) or ICS + LABA (ex Advair)}} COPD is {{Stable, no change in symptoms, stable or improved exercise tolerance, no flareups W orse, symptoms worsening, worse exercise tolerance, flare ups}} Need to adjust/marie nge/add medication {{yes/COPD not controlled no/COPD controlled }} If yes, change in medication ____ Risk factor modificati on/further recommenda tions: Smoking cessation {{yes N/A} } Add oxygen therapy {{yes no}} Start/Incr ease exercise {{yes N/A} } Update vaccinatio n {{yes N/A} } Pulmonary rehab {{yes no}} Imaging needed {{none CXR chest CT}} Repeat PFT {{ yes no}} Rescue inhalers, ___ , are to be used as needed only, for shortness of breath, persistent coughing or wheezing. Maintenanc e inhalers, ___ , are to be used every day as instructed . 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 I reviewed this diagnosis with her today as well as discussing further treatment. We discussed physical therapy and the use of oral pain medication s. We also discussed the significan t biomechani mirella issues she is having due to her foot abnormalit ies. We also discussed repeat corticoste roid injections and future surgery. She has done well with the previous injection which she would like to have repeated today. She did undergo a right knee joint corticoste roid injection under ultrasound guidance. She tolerated this well for complicati on. She will ice and rest over the next week and gradually resume normal activities . Happy to see her back as needed for reevaluati on of her knee. 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 Her recent x-rays demonstrat e no fracture or injury from her recent falls. I did perform a brief ultrasound of the bursa demonstrat ing no discrete fluid collection but significan tly thickening of the bursal salcido. I advised that unfortunat johnny without a discrete fluid collection aspiration would not be beneficial . I advised the best treatment would be improved medical management of her lupus although a surgical bursectomy may also potentiall y benefit. Unfortunat johnny I do not feel at this time there is any additional treatment I can offer for her chronic bursitis of the elbow. She will plan to follow-up with her primary care doctor or rheumatolo tigist for further care of this problem. [id number] RADHA Brennan, [facility], [address] [place] [address] 11/23/2022 14:12:14 11/26/2022 09:01:55 Pre-surgery evaluation 321539299 Z01.818 - pt presenting for pre-op physical and EKG -Pt cleared for surgery,wi ll fax today's visit to surgeon - EKG WNL. Sinus rhythm. - Revised Cardiac Risk Index (RCRI): score II, class III, 6.6% risk 1. High-risk type of surgery (examples include vascular surgery and any open intraperit tiwari or intrathora cic procedures ) 2. History of ischemic heart disease (history of myocardial infarction or a positive exercise test, current complaint of chest pain considered to be secondary to myocardial ischemia, use of nitrate therapy, or ECG with pathologic al Q waves; do not count prior coronary revascular ization procedure unless one of the other criteria for ischemic heart disease is present) 3. History of heart failure 4. History of cerebrovas cular disease 5. Diabetes mellitus requiring treatment with insulin 6. 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 Discuss with PCP as directed Antiphosph olipid syndrome 46021823 D68.61 Discussed eliquis, based on bleeding risk of procedure ok to interrupt eliquis on day of surgery, total one day of interrupti on. Will disucss with surgery team as needed. [id number] RADHA Brennan, [facility], OFFICE [address] [place] [address] 01/23/2023 16:11:19 01/23/2023 16:44:01 Asthmatic bronchitis 056223708 J45.909 Requested refill Tobacco user 509420959 Z 72.0 We discussed your smoking today for more than 3 minutes. Cigarette use is the leading cause of preventabl e disease, disability , and in the [place]. We talked about tools and medication s available to help you in smoking cessation. We discussed utilizing our smoking cessation middle school sports coach and online resources. Your personal goal: work on cutting back, continue with patches Screening for malignant neoplasm of colon 100487888 Z12.11 will wait until cdiff infection done Screening for malignant neoplasm of cervix 744116485 Z12.4 pt aware Charcot's joint of foot 565526813 M14.679 Refilled oxycodone for pain, discussed with patient that any further prescripti ons or dose increases would have to come from pcp Opioid dependence 371624 00 F11.20 chronic pain managed with oxycodone Clostridio ides difficile infection 415099483 A04.72 Stool beginning to form again, continue care plan. Follow up with [employer] d return sx [id number] Elayne Ivan , [facility], [address] [place] [address] 03/29/2023 15:54:46 04/01/2023 12:19:10 Tobacco user 548947017 Z72.0 We discussed your smoking today for more than 3 minutes. We talked about how much nicotine you are getting with the Juul so that you know how much you are getting. Diarrhea 14695205 R19.7 Pt with hx of c.dif; she was recently treated wtih vancomycin prophylact ically while on abx for pneumonia but now she is having worsening diarrhea. Will have her tested Charcot's joint of foot 186758170 M14.679 S/p surgery. Pt following with [facility] for this. Is non-weight -bearing right now. Systemic l upus erythematosus 32270689 M06.9 Pt referred to [facility] - will make sure staff sends records. Rheumatoid arthritis 698 26695 M06.9 Pt referred to [facility] - will make sure staff sends records. [id number] MD MEENU Dixon, [facility], OFF[address] [place] [address] 05/23/2023 15:17:53 05/24/2023 09:19:41 Hypothyroidism 00402392 E03.9 Primary fi bromyalgia syndrome 09265630 M79.7 Rheumatoid arthritis 698 56606 M06.9 Systemic l upus erythematosus 19241306 M06.[address] Flores Tobacco user 116895322 Z 72.0 We discussed your smoking today for more than 3 minutes. Cigarette use is the leading cause of preventabl e disease, disability , and in the [place]. We talked about tools and medication s available to help you in smoking cessation. We discussed utilizing our smoking cessation middle school sports coach and online resources. 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 Cigarette use is the leading cause of preventabl e disease, disability , and in the [place]. We talked about tools and medication s available to help you in smoking cessation. We discussed utilizing our smoking cessation middle school sports coach and online resources. Greater than 3 minutes was spent performing tobacco cessation counseling today in the office. I've advised follow-up with patients PCP to continue to work on smoking cessation. Pain of ri ght knee joint 0081058701 24644 M25.561 Emiliana is a 48-year-ol d female with right knee pain due to underlying osteoarthr itis. I reviewed this diagnosis with her today as well as discussing options for treatment. We discussed physical therapy, use of Tylenol, corticoste roid injections , and potential future surgery. She is planning to see a surgeon in the near future to discuss operative options. She would like to have a repeat injection for help with pain control in the short-term and did undergo a right knee joint corticoste roid injection under ultrasound guidance. She tolerated this well how complicati on. She will ice and rest over the next week and gradually resume normal activities . I am happy to see Emiliana back as needed for further care in the future. Osteoarthr itis of knee 924782057 M17.11 [id number] Betsy Ramsey MD Sports Medicine, [address] [place] [address] 02/05/2024 15:48:36 02/07/2024 20:05:30 Pain of right knee joint 6653917582 38080 M25.561 Emiliana is a 48-year-ol d female with right knee pain due to underlying osteoarthr itis as well as potentiall y related to her autoimmune disease. I reviewed this diagnosis again with her today as well as discussing treatment. Unfortunat johnny she only had short-term symptom relief with her previous corticoste roid injection. We discussed that surgery would likely be the only long-term fix for her symptoms. We also discussed continuing to work with her rheumatolo gist on management of her autoimmune disease. We discussed physical therapy and oral pain medication versus repeat injections or surgery. At this point she would like to try repeat injection with a higher dose of cortisone which I feel would be reasonable . She did undergo a right knee joint aspiration and corticoste roid injection under ultrasound guidance. She tolerated this well without complicati on. The synovial fluid was cloudy appearing as it has been previously which I believe is due to her rheumatoid arthritis. However, with her recent episode of osteomyeli tis I have sent it for cell count and culture. She will ice and rest over the next week and gradually resume normal activities . I did advise that now that she is off antibiotic s it may make sense to see the surgeon again to discuss possible operative management . She will plan to follow up with me as needed for further care in the future. Office notes from [facility] were reviewed during this visit. Osteoarthr itis of knee 524926777 M17.11 Health Concerns Section Related Observation LastModified by Organization Detai ls LastModified Time None Recorded Concern Status LastModified by Organization Details LastModified Time chronic obstructive lung disease Inactive [facility] PATCH Not Available 07/24/2023 09 :00:53 rheumatoid arthritis Inactive [facility] PATCH Not Available 07/24/2023 09 :00:53 Advance Directives Directive None Recorded Payers Encounter Date Sequence Insurance Name Policy Number Policy Woodward Covered Member ID Woodward Member ID Guarantor Name 01/23/2023 1 [place] Emiliana Rea [id number] Emiliana Rea 01/23/2023 1 [place] [employer] Emiliana M Rea [id number] Emiliana Rea 03/29/2023 1 [place] Emil[place] Rea [id number] Emiliana Rea 03/29/2023 1 [place] [employer] Emiliana M Rea [id number] Emiliana Rea 05/23/2023 1 [place] Emiliana Rea [id number] Emiliana Rea 05/23/2023 1 [place] [employer] Emiliana M Rea [id number] Emiliana Rea 08/14/2023 1 [place] Emil[place] Rea [id number] Emiliana Rea 08/14/2023 1 [place] [facility] Emiliana Ezio Rea [id number] Emiliana Rea 02/05/2024 1 [facility] HP - DOS ON OR AFTER 2023 - [facility] (MEDICAID REPLACEMENT - HMO) Emiliana Rea [id number] Emiliana Rea Notes Date Note Type Note Provider Name and Address Organization Details Recorded Time 01/23/2023 text/html a/vmg-smoking [id number] bypatient.Notes:working on cutting back, half pack per day 01/23/23patient presents for tcmspresents with SPECIAL LIBRARIAN worker Admitted to: [facility] for c diff--[facility]--then ER visit 01/03/23 Admission dates: 12/30/22-01/18/23 Reason for admission: c diff, worsening b/l edema in lower extremities Hospital course / testing: was in hosp for cdiff with IV vanco, went to [facility] for edema Discharge instructions / changes / follow up / testing: complete abx Since discharge patient reports:f/u with infectious disease to discuss continued vancostill with daily stools, couple times a day, loose but formedfoot pain worsening, wants increase n oxycodone RADHA Brennan [address] [place] [address], [phone], [facility] 01/28/2023 16:48:33 03/29/2023 text/html a/vmg-smoking [id number] bypatient.Physiological Dependence/Health RiskSmoking 1-2 cig/day Juul - 5% pods (40mg) Pt met with via telehealth video visit for follow-up hospitalization for pneumonia following Charcot foot surgery done on the R foot. Pt states that she started running fevers after the surgery they had to put icepacks on me and then required antibiotics for that; they placed her on vancomycin prophylactically given hx of c.dif (that had been in the beginning of the year after antibiotics for other conditions then). Pt c/o diarrhea. This started while she was at rehab. She discovered she was getting senna there, but this is now worse despite stopping. The stool smells bad again and reminds her of when she had c.dif. She has a SPECIAL LIBRARIAN who could milk pickup driver a kit do testing for c.dif if need be; she lives by [facility]. She is having diarrhea 3x daily 'whenever I eat.' Pt c/o SLE. She called rheum at [facility] but doesn't have an appointment yet. Reportedly they still need information. Elayne Ivan [address] [place], [phone], [facility] 03/29/2023 16:54:30 05/23/2023 text/html here for f/u - canine enforcement officer accompanies ptER for cellulitis on RLE - was dx [facility] and given doxycycline and cephalexinstarted 05/15 on meds and ultrasound done but neg for DVTstates that leg is now larger and more swollenusing wheelchair and non bearing for her charcot footright leg consistently swollen in the past weekmissed her ortho appt with Dr Mcmanus at [facility] since she went [facility] the [facility] buttock with lencho an appt at [facility] in Jun for rheumatologysmoker Barbie Brown MD [address] [place], [phone], [facility] 05/23/2023 21:14:39 08/14/2023 text/html Emiliana is a 48-year-old female who presents today for exacerbation of chronic right knee pain. She was last evaluated on 10/17/2022 when she underwent a right knee joint corticosteroid injection. She states this worked relatively well providing relief of pain for her unfortunately she has had gradually returning discomfort over the last several months. She denies any new injuries to her knee. She describes pain mostly along the medial knees is worse with any type of walking or weightbearing. She did have surgery on her right foot with Dr. Mcmanus at [facility]. The operative note indicates that a triple arthrodesis was performed for treatment of a Charcot foot secondary to her SLE. Betsy Ramsey MD [address] [place] [address], [phone], [facility] 08/14/2023 16:05:05 02/05/2024 text/html Emiliana is a 48-year-old female who presents today for an exacerbation of chronic right knee pain. She was last evaluated on 08/14/2023 when she underwent a right knee joint corticosteroid injection. She states this worked relatively well producing good relief of pain and symptoms but unfortunately only lasted 4 weeks. Since then she has had gradual return of swelling and pain. She describes diffuse discomfort around the knee that is worse with almost any walking and weightbearing. The pain is usually medial but also can be along the lateral knee. She describes some clicking sensations but denies any overt locking or instability. She did see a surgeon recently who advised that she was high risk for a knee replacement. She also recently had osteomyelitis of her left foot which is treated with a PICC line. She has since been off IV antibiotics without any recurrence of her infection. Betsy Ramsey MD [address] [place] [address], [phone], [facility] [place] 02/05/2024 16:45:16 OBGyn Episode No OBEpisode recorded.
--- OUTSIDE RECORDS SUMMARY | 2025-02-19 15:52 | XMS_ITS | Encounter Summary ---
Author Organization [facility] [place], Address [address] [place] [address] Phone Care Team Providers Care Garbage Collector Name Role Phone Barbie Krueger MD Primary Care Prov ider Encounter Details Date Type Department Care Team (Late st Contact Info) Description 10/07/2024 Documentation Only [facility], [address] [place] [address] Amberly Mensah [address] [place] [phone] Social History Tobacco Use Types Packs/Day Years [...] on filedocumented in this encounter Care Teams Garbage Collector Relationship Specialty Start Date End Date Barbie Krueger MD [address] [place] [phone] PCP - General 09/22/19 documented as of this encounter
--- OUTSIDE RECORDS SUMMARY | 2025-02-19 15:52 | XMS_ITS | Clinical Summary ---
Author Organization [facility], Address [address] [place] [address] [place] [address] Phone Care Team Providers Care Strap Stitcher Name Role Phone Barbie Krueger MD Primary [...] 07/30 Influenza Vaccine (#1) 2024 08/31/2015 Insurance [facility] Care Teams Strap Stitcher Relationship Specialty Start Date End Date Barbie Krueger MD [address] [place] [address] PCP - General 09/22/19
--- OUTSIDE RECORDS SUMMARY | 2025-02-19 15:52 | XMS_ITS | Encounter Summary ---
Author Organization [facility] [place], Address [address] [place] [address] Phone Care Team Providers Care Model Maker Fiberglass Name Role Phone Barbie Krueger MD Primary Care Prov ider Encounter Details Date Type Department Care Team (Late st Contact Info) Description 10/07/2024 Documentation Only [facility] [place], [address] [place] [address] Amberly Mensah [address] [place] [phone] Social History Tobacco Use Types Packs/Day Years [...] on filedocumented in this encounter Care Teams Model Maker Fiberglass Relationship Specialty Start Date End Date Barbie Krueger MD [address] [place] [address] PCP - General 09/22/19 documented as of this encounter
--- OUTSIDE RECORDS SUMMARY | 2025-02-19 15:52 | XMS_ITS | Encounter Summary ---
Author Organization [facility] [place], Address [address] [place] [address] Phone Care Team Providers Care Mobile Patrol Officer Name Role Phone Barbie Krueger MD Primary Care Prov ider Encounter Details Date Type Department Care Team (Late st Contact Info) Description 10/07/2024 Documentation Only [facility] [place], [address] [place] [address] Amberly Mensah [address] [place] [phone] Social History Tobacco Use Types Packs/Day Years [...] filedocumented in this encounter Care Teams Mobile Patrol Officer Relationship Specialty Start Date End Date Barbie Krueger MD [address] [place] [address] PCP - General 09/22/19 documented as of this encounter
--- OUTSIDE RECORDS SUMMARY | 2025-02-19 15:52 | XMS_ITS | Encounter Summary ---
Author Organization [facility] [place], Address [address] [place] [address] Phone Care Team Providers Care Piano Case Maker Name Role Phone Barbie Krueger MD Primary Care Prov ider Encounter Details Date Type Department Care Team (Late st Contact Info) Description 10/07/2024 Documentation Only [facility] [place], [address] [place] [address] Amberly Mensah [address] [place] [phone] Social History Tobacco Use Types Packs/Day Years [...] on filedocumented in this encounter Care Teams Piano Case Maker Relationship Specialty Start Date End Date Barbie Krueger MD [address] [place] [address] PCP - General 09/22/19 documented as of this encounter
--- OUTSIDE RECORDS SUMMARY | 2025-02-19 15:52 | XMS_ITS | Encounter Summary ---
Author Organization [facility] [place], Address [address] [place] [address] Phone Care Team Providers Care Radiator Tester Name Role Phone Barbie Krueger MD Primary Care Prov ider Encounter Details Date Type Department Care Team (Late st Contact Info) Description 10/07/2024 Documentation Only [facility], [address] [place] [address] Amberly Mensah [address] [place] [phone] Social History Tobacco Use Types Packs/Day Years [...] on filedocumented in this encounter Care Teams Radiator Tester Relationship Specialty Start Date End Date Barbie Krueger MD [address] [place] [address] PCP - General 09/22/19 documented as of this encounter
--- OUTSIDE RECORDS SUMMARY | 2025-02-19 15:52 | XMS_ITS | Encounter Summary ---
Author Organization [facility] [place], Address [address] [place] [address] Phone Care Team Providers Care Environmental Associate Name Role Phone Barbie Krueger MD Primary Care Prov ider Reason for Visit * Reason Comments Med Refill Encounter Details Date Type Department Care Team (Late st Contact Info) Description 04/01/2024 Refill [facility], [address] [place] [address] Lukas Kam MD [address] [place] [phone] Social History Tobacco Use Types Packs/Day Years [...] on filedocumented in this encounter Care Teams Environmental Associate Relationship Specialty Start Date End Date Barbie Krueger MD [address] [place] [phone] PCP - General 09/22/19 documented as of this encounter
--- OUTSIDE RECORDS SUMMARY | 2025-02-19 15:53 | XMS_ITS | Encounter Summary ---
Author Organization [facility] [place], Address [address] [place] [address] Phone Care Team Providers Care Wheel Buffer Name Role Phone Barbie Krueger MD Primary Care Prov ider Encounter Details Date Type Department Care Team (Late st Contact Info) Description 10/07/2024 Documentation Only [facility] [place], [address] [place] [address] Amberly Mensah [address] [place] [phone] Social History Tobacco Use Types Packs/Day Years [...] on filedocumented in this encounter Care Teams Wheel Buffer Relationship Specialty Start Date End Date Barbie Krueger MD [address] [place] [phone] PCP - General 09/22/19 documented as of this encounter
--- OUTSIDE RECORDS SUMMARY | 2025-02-19 15:53 | XMS_ITS | Clinical Summary ---
Author Organization [employer] [facility] Address [address] [place] [address] Care Team Providers Care Mail Handler Equipment Operator Name Role Phone Unavailable Primary Care Provider Unavailabl e Encounters Date Type Department Care Team Description 12/18/2024 Orders Only [facility] External Provider, [facility] from Last 3 Months Social History [...] Blood Count 12.9(H) 4.8 - 10.8 X10*3/uL [facility] Red Blood Count 4.60 4.20 - 5.50 X10*6/uL [facility] Hemoglobin 11.8(L) 12.0 - 16.0 g/dl [facility] Hematocrit 38.7 37.0 - 47.0 % [facility] Mean Corpuscular Volume 84.1 80.0 - 98.0 fL [facility] Mean Corpuscular Hemoglobin 25.7(L) 27.0 - 33.0 pg [facility] Mean Corpuscular HGB Conc 30.5(L) 31.0 - 35.0 g/dl [facility] Red Cell Distribution Width 13.5 11.0 - 16.0 % [facility] Platelet Count 174 160 - 400 X10*3/uL [facility] Mean Platelet Volume 9.0(L) 9.4 - 12.3 fL [facility] Neutrophils Percent Auto 67.7 45 - 73 % [facility] Imm Gran Pct Auto 0.6(H) 0.0 - 0.4 % [facility] Lymphocytes Percent Auto 14.6(L) 20 - 40 % [facility] Monocytes Percent Auto 10.2 2 - 11 % [facility] Eosinophils Percent Auto 6.3(H) 0 - 4 % [facility] Basophils Percent Auto 0.6 0 - 2 % [facility] NRBC Pct Auto 0.0 0.0 - 0.2 /100WBC [facility] Neutrophils Absolute Auto 8.7(H) 2.0 - 8.3 x10*3/uL [facility] Imm Gran Abs Auto 0.08(H) 0.00 - 0.03 X10*3/uL [facility] Lymphocytes Absolute Auto 1.9 1.2 - 4.9 X10*3/uL [facility] Monocytes Absolute Auto 1.3(H) 0.1 - 1.2 X10*3/uL [facility] Eosinophils Absolute Auto 0.8(H) 0.0 - 0.4 X10*3/uL [facility] Basophils Absolute Auto 0.1 0.0 - 0.2 X10*3/uL [facility] NRBC Abs Auto 0.000 0.0 - 0.012 X10*3/uL [facility] 12/18/2024 5:01 AM EST 12/18/2024 5:08 AM EST us Generic External Data Provider LAB BLOOD ORDERAB LES Final Result [facility] [address] [place] [address] [phone] * Lactic Acid (12/18/2024 5:01 AM EST) Lactic Acid 0.9 0.5 - 2.0 mmol/L [facility] 12/18/2024 5:01 AM EST 12/18/2024 5:08 AM EST us Generic External Data Provider LAB BLOOD ORDERAB LES Final Result [facility] [address] [place] [address] [phone] * (ABNORMAL) Comprehensive Metabolic Panel (12/18/2024 5:01 AM EST) Sodium 142 135 - 145 mmol/L [facility] Potassium 4.2 3.3 - 5.1 mmol/L [facility] Chloride 105 96 - 108 mmol/L [facility] Carbon Dioxide 28 22 - 29 mmol/L [facility] Anion Gap 13 12 - 20 [facility] Urea Nitrogen (BUN) 19(H) 9 - 16 mg/dL [facility] Creatinine, Serum 0.75 0.5 - 1.4 mg/dL [facility] Creatinine Clr Calc Pharmacy 70.0 [facility] Comment:Provided height and weight: 154.94 cm,56.699 kg.eGFR (calculated from the MDRD study equation) and eCrCl(calculated from the Cockcroft-Gault equation) are based ondifferent parameters and may not yield comparable results.If eCrCl result is absurd, please check patient'sheight/weight. Estimated Glomerular Filt Rate >60 [facility] Comment:Chronic Kidney Disea se: Estimated GFR < 60 mL/min/1.94v9[place]a Kidney Disease: Estimated GFR < 15 mL/min/1.73m2 Glucose 90 60 - 115 mg/dL [facility] Calcium 9.6 8.4 - 10.2 mg/dL [facility] Bilirubin, Total 0.2 0.0 - 1.0 mg/dL [facility] Aspartate Amino Transferase 77(H) 5 - 31 U/L [facility] Alanine Aminotransferase 37(H) 0 - 31 U/L [facility] Total Protein 6.6 6.5 - 8.0 g/dL [facility] Albumin Level 3.6 3.5 - 5.0 g/dL [facility] Alkaline Phosphatase 192(H) 39 - 117 U/L [facility] 12/18/2024 5:01 AM EST 12/18/2024 5:08 AM EST us Generic External Data Provider LAB BLOOD ORDERAB LES Final Result Performing Organization Address City/[facility]/ZIP Co de Phone Number [facility] [address] [place] [address] [phone] * SARS-CoV-2 RNA, Influenza A/B, and RSV RNA, Ql NAAT (12/18/2024 4:54 AM EST) Influenza A PCR NEGATIVE Negative [facility] Influenza B PCR NEGATIVE Negative [facility] Resp Syncy Virus RNA Qual PCR NEGATIVE Negative [facility] SARS COV2 PCR NEGATIVE Negative [facility] Comment:All test results mus [...] use by authorized laboratories.Testing performed on the [employer] GeneXpert utilizingreal-time RT-PCR.All SARS CoV2 and positive influenza A/B results arereported to [facility]. 12/18/2024 4:54 AM EST 12/18/2024 5:08 AM EST us Generic External Data Provider LAB MICROBIOLOGY - GENERAL ORDERABLES Final Result Performing Organization Address City/[facility]/ZIP Co de Phone Number [facility] [address] [place] [address] [phone] * XR Chest 1 View (12/18/2024 4:39 AM EST) Anatomical Region Laterality Modality Chest Radiographic Angelia ging 12/18/2024 4:39 AM EST Narrative 12/18/2024 4:41 AM EST ? [facility] ?[address] ?Marc Gomes [address] ?XRay Report ? Signed ? Patient: Rea,Emiliana M ?MR#: [id number] ?? [id number] ? : 1975 ?Acct:[id number] ? Age/Sex: 49 / F ?ADM Date: 12/18/24 ? Loc: HO.ED ? Attending Dr: ? Ordering Physician: Generic ED Physician ?? Date of Service: 12/18/24 ?? Procedure(s): XR chest 1V ?? Accession Number(s): [id number] ? cc: Generic ED Physician; [facility] ? CLINICAL HISTORY: cough ? 1 view [...] DD/ 0439 ? TD/TT: 12/18/24 0439 ? Glue Spreading Machine Operator: ? Procedure Note Vj, Sushant - 12/18/[address] [address] XRay Report Signed Patient: Emiliana Rea [facility]#: [id number] : 1975Acct:[id number] Age/Sex: 49 / FADM Date: 12/18/24 Loc: HO.ED Attending Dr: Ordering Physician: Generic ED Physician Date of Service: 12/18/24 Procedure(s): XR chest 1V Accession Number(s): [id number] cc: Generic ED Physician; [facility] CLINICAL HISTORY: cough 1 view chest x-ray. [...] in OV> 12/18/24 0441 DD/ TD/TT: 12/18/24438 Glue Spreading Machine Operator: [facility] External Provider IMG XR PROCEDURES Edited Result - Final from Last 3 Months
--- OUTSIDE RECORDS SUMMARY | 2025-02-19 15:53 | XMS_ITS | Encounter Summary ---
Author Organization [facility], Address [address] [place] [address] Phone Care Team Providers Care Farm Operations Manager Name Role Phone Barbie Krueger MD Primary Care Prov ider Encounter Details Date Type Department Care Team (Late st Contact Info) Description 10/07/2024 Documentation Only [facility], [address] [place] [address] Amberly Mensah [address] [place] [phone] Social History Tobacco Use Types Packs/Day Years [...] on filedocumented in this encounter Care Teams Farm Operations Manager Relationship Specialty Start Date End Date Barbie Krueger MD [address] [place] [address] PCP - General 09/22/19 documented as of this encounter
--- OUTSIDE RECORDS SUMMARY | 2025-02-19 15:53 | XMS_ITS | Encounter Summary ---
Author Organization [facility] [place], Address [address] [place] [address] Phone Care Team Providers Care Campus Monitor Name Role Phone Barbie Krueger MD Primary Care Prov ider Encounter Details Date Type Department Care Team (Late st Contact Info) Description 10/07/2024 Documentation Only [facility] [place], [address] [place] [address] Amberly Mensah [address] [place] [phone] Social History Tobacco Use Types Packs/Day Years [...] on filedocumented in this encounter Care Teams Campus Monitor Relationship Specialty Start Date End Date Barbie Krueger MD [address] [place] [address] PCP - General 09/22/19 documented as of this encounter
--- OUTSIDE RECORDS SUMMARY | 2025-02-19 15:53 | XMS_ITS | Encounter Summary ---
Author Organization [facility] [place], Address [address] [place] [address] Phone Care Team Providers Care Landscaping Specialist Name Role Phone Barbie Krueger MD Primary Care Prov ider Encounter Details Date Type Department Care Team (Late st Contact Info) Description 10/07/2024 Documentation Only [facility] [place], [address] [place] [address] Amberly Mensah [address] [place] [phone] Social History Tobacco Use Types Packs/Day Years [...] on filedocumented in this encounter Care Teams Landscaping Specialist Relationship Specialty Start Date End Date Barbie Krueger MD [address] [place] [address] PCP - General 09/22/19 documented as of this encounter
--- OUTSIDE RECORDS SUMMARY | 2025-02-19 15:53 | XMS_ITS | Encounter Summary ---
Author Organization [facility] [place], Address [address] [place] [address] Phone Care Team Providers Care Hand Tier Name Role Phone Barbie Krueger MD Primary Care Prov ider Encounter Details Date Type Department Care Team (Late st Contact Info) Description 10/07/2024 Documentation Only [facility] [place], [address] [place] [address] Amberly Mensah [address] [place] [phone] Social History Tobacco Use Types Packs/Day Years [...] on filedocumented in this encounter Care Teams Hand Tier Relationship Specialty Start Date End Date Barbie Krueger MD [address] [place] [address] PCP - General 09/22/19 documented as of this encounter
--- OUTSIDE RECORDS SUMMARY | 2025-02-19 15:53 | XMS_ITS | Encounter Summary ---
Author Organization [facility] [place], Address [address] [place] [address] Phone Care Team Providers Care Advanced Practice Rn Name Role Phone Barbie Krueger MD Primary Care Prov ider Encounter Details Date Type Department Care Team (Late st Contact Info) Description 10/07/2024 Documentation Only [facility] [place], [address] [place] [address] Amberly Mensah [address] [place] [phone] Social History Tobacco Use Types Packs/Day Years [...] on filedocumented in this encounter Care Teams Advanced Practice Rn Relationship Specialty Start Date End Date Barbie Krueger MD [address] [place] [address] PCP - General 09/22/19 documented as of this encounter
--- OUTSIDE RECORDS SUMMARY | 2025-02-19 15:53 | XMS_ITS | Encounter Summary ---
Author Organization [facility] [place], Address [address] [place] [address] Phone Care Team Providers Care Simulation Developer Name Role Phone Barbie Krueger MD Primary Care Prov ider Encounter Details Date Type Department Care Team (Late st Contact Info) Description 10/07/2024 Documentation Only [facility] [place], [address] [place] [address] Amberly Mensah [address] [place] [phone] Social History Tobacco Use Types Packs/Day Years [...] on filedocumented in this encounter Care Teams Simulation Developer Relationship Specialty Start Date End Date Barbie Krueger MD [address] [place] [address] PCP - General 09/22/19 documented as of this encounter
--- OUTSIDE RECORDS SUMMARY | 2025-02-19 15:53 | XMS_ITS | Encounter Summary ---
Author Organization [facility] [place], Address [address] [place] [address] Phone Care Team Providers Care Community Relations Officer Name Role Phone Barbie Krueger MD Primary Care Prov ider Encounter Details Date Type Department Care Team (Late st Contact Info) Description 10/07/2024 Documentation Only [facility], [address] [place] [address] Amberly Mensah [address] [place] [phone] Social History Tobacco Use Types Packs/Day Years [...] on filedocumented in this encounter Care Teams Community Relations Officer Relationship Specialty Start Date End Date Barbie Krueger MD [address] [place] [phone] PCP - General 09/22/19 documented as of this encounter
--- OUTSIDE RECORDS SUMMARY | 2025-02-19 15:53 | XMS_ITS | Encounter Summary ---
Author Organization [facility] [place], Address [address] [place] [address] Phone Care Team Providers Care Jd Edwards Consultant Name Role Phone Barbie Krueger MD Primary Care Prov ider Encounter Details Date Type Department Care Team (Late st Contact Info) Description 10/07/2024 Documentation Only [facility] [place], [address] [place] [address] Amberly Mensah [address] [place] [phone] Social History Tobacco Use Types Packs/Day Years [...] on filedocumented in this encounter Care Teams Jd Edwards Consultant Relationship Specialty Start Date End Date Barbie Krueger MD [address] [place] [address] PCP - General 09/22/19 documented as of this encounter
--- OUTSIDE RECORDS SUMMARY | 2025-02-19 15:53 | XMS_ITS | Encounter Summary ---
Author Organization [facility] [place], Address [address] [place] [address] Phone Care Team Providers Care Customer Sales Representative Name Role Phone Barbie Krueger MD Primary Care Prov ider Encounter Details Date Type Department Care Team (Late st Contact Info) Description 10/07/2024 Documentation Only [facility] [place], [address] [place] [address] Amberly Mensah [address] [place] [phone] Social History Tobacco Use Types Packs/Day Years [...] on filedocumented in this encounter Care Teams Customer Sales Representative Relationship Specialty Start Date End Date Barbie Krueger MD [address] [place] [address] PCP - General 09/22/19 documented as of this encounter
--- OUTSIDE RECORDS SUMMARY | 2025-02-19 15:53 | XMS_ITS | Encounter Summary ---
Author Organization [facility] [place], Address [address] [place] [address] Phone Care Team Providers Care Lab Tester Name Role Phone Barbie Krueger MD Primary Care Prov ider Encounter Details Date Type Department Care Team (Late st Contact Info) Description 10/07/2024 Documentation Only [facility] [place], [address] [place] [address] Amberly Mensah [address] [place] [phone] Social History Tobacco Use Types Packs/Day Years [...] on filedocumented in this encounter Care Teams Lab Tester Relationship Specialty Start Date End Date Barbie Krueger MD [address] [place] [address] PCP - General 09/22/19 documented as of this encounter
--- OUTSIDE RECORDS SUMMARY | 2025-02-19 15:53 | XMS_ITS | Encounter Summary ---
Author Organization [facility] [place], Address [address] [place] [address] Phone Care Team Providers Care Window Clerk Name Role Phone Barbie Krueger MD Primary Care Prov ider Encounter Details Date Type Department Care Team (Late st Contact Info) Description 10/07/2024 Documentation Only [facility] [place], [address] [place] [address] Amberly Mensah [address] [place] [phone] Social History Tobacco Use Types Packs/Day Years [...] on filedocumented in this encounter Care Teams Window Clerk Relationship Specialty Start Date End Date Barbie Krueger MD [address] [place] [address] PCP - General 09/22/19 documented as of this encounter
--- OUTSIDE RECORDS SUMMARY | 2025-02-19 15:53 | XMS_ITS | Encounter Summary ---
Author Organization [facility] [place], Address [address] [place] [address] Phone Care Team Providers Care Sand Slinger Operator Name Role Phone Barbie Krueger MD Primary Care Prov ider Encounter Details Date Type Department Care Team (Late st Contact Info) Description 10/07/2024 Documentation Only [facility] [place], [address] [place] [address] Amberly Mensah [address] [place] [phone] Social History Tobacco Use Types Packs/Day Years [...] on filedocumented in this encounter Care Teams Sand Slinger Operator Relationship Specialty Start Date End Date Barbie Krueger MD [address] [place] [address] PCP - General 09/22/19 documented as of this encounter
--- OUTSIDE RECORDS SUMMARY | 2025-02-19 15:53 | XMS_ITS | Encounter Summary ---
Author Organization [facility], Address [address] [place] [address] Phone Care Team Providers Care Bookkeeping Machine Operator Name Role Phone Barbie Krueger MD Primary Care Prov ider Encounter Details Date Type Department Care Team (Late st Contact Info) Description 10/07/2024 Documentation Only [facility], [address] [place] [address] Amberly Mensah [address] [place] [id number] Social History Tobacco Use Types Packs/Day Years [...] on filedocumented in this encounter Care Teams Bookkeeping Machine Operator Relationship Specialty Start Date End Date Barbie Krueger MD [address] [place] [phone] PCP - General 09/22/19 documented as of this encounter
[2025-02-19 15:58] LABS: Source Synovial Fluid right knee
--- NOTE | 2025-02-19 16:24 | PCN2_ITS ---
Brief Operative Note Date of procedure: 02/19/25 Pre-op diagnosis: Right knee pain and swelling Post-op diagnosis: same Procedure: Date: 02/19/2025 Study Type: Limited Ultrasound with Guidance of needle placement Indication: Right knee pain and swelling Study Site: Right knee Equipment: [employer]ozone ultrasound Brief History: Patient with longstanding seropositive rheumatoid arthritis with history of recurrent infections presented 02/18/2025 for follow up and had warmth tenderness and effusion to the right knee. Findings: ?Orthogonal views of the suprapatellar view of the right knee was obtained in grayscale and Doppler. Procedure: ?After obtaining informed consent for an ultrasound-guided aspiration of the right knee, the suprapatellar synovial pouch was imaged with ultrasound and revealed moderate compressible effusion. ?The lateral knee was sterilely prepped with chlorhexidine and anesthetized with lidocaine spray. ?A 21 gauge 1.5 in needle was advanced into the synovial cavity under direct ultrasound visualization using in plane technique. ?36 cc of straw-colored fluid was aspirated and sent for studies. ?The procedure was well tolerated. Condition: stable
[2025-02-19 16:35] LABS: MN% 72.8 %; PMN% 27.2 %; RBC Synovial Fluid 0.007 X10*6/uL; WBC Synovial Fluid 2.171 X10*3/uL
[2025-02-19 17:34] LABS: BF Shift QC OK YES; Lymphocytes Synovial Fluid 21 %; Man Diluent Bkgrd OK YES; Monocytes Synovial Fluid 45 %; Neutrophils Synovial Fluid 34 %
== END 2025-02-19 14:09 | disposition home or self-care (01) ==
LOC: HO.US 14:08
PROVIDERS: Visit Provider Student in an Organized Health Care Education/Training Program
DX: M25.461 Effusion, right knee (principal); M25.561 Pain in right knee
CPT/HCPCS: 20611; 87070; 87073; 87205; 89051; 89060

== ENCOUNTER → 2025-02-19 14:08 | Outpatient (BNV) | payer OTHER, SELFPAY | PROVIDERS: Visit Provider Student in an Organized Health Care Education/Training Program | DX: M25.561 Pain in right knee (principal); M25.461 Effusion, right knee | CPT/HCPCS: 20610; 76942 ==